=== PATIENT | male | born 1940 | race Caucasian/White ===

== ENCOUNTER 2023-02-07 08:39 | Outpatient (OUT) | payer MEDICARE, SELFPAY ==
--- NOTE | 2023-02-07 09:18 | CA_ITS ---
Patient: MYKEL IRIZARRY Exam Date: 02/07/2023 : 1940 Gender:M Ordering : DR Benson Mancini D.O. Admission #: [id number] Family : RAJENDRA NUÑEZ MD Order #: [id number] CLICK HERE TO VIEW EXAM ECHOCARDIOGRAM REPORT PROCEDURE: CA ECHO DOPPLER COMPLETE INDICATIONS: Chronic systolic heart failure, CABGx4, hypertension COMPARISON: None. DESCRIPTION: COMPLETE ECHOCARDIOGRAM Real-time transthoracic echocardiography with 2D, M-mode, spectral and color flow Doppler performed. QUALITY: Technical quality was good. LEFT VENTRICLE: Normal chamber size. Normal left ventricular wall thickness. Normal systolic function. LV EF: Normal left ventricular ejection fraction, (55%). DIASTOLIC: Not adequately assessed due to heart rhythm. ATRIAL SEPTUM: LEFT ATRIUM: Normal chamber size. RIGHT ATRIUM: Mild dilatation. RIGHT VENTRICLE: Normal chamber size. Normal systolic function. TRICUSPID VALVE: Normal mobility and thickness. No stenosis with mild regurgitation. Doppler studies reveal moderately (45-60) elevated right sided pressures. RVSP 55 mmHg MITRAL VALVE: Mildly thickened with normal mobility. No evidence of mitral valve stenosis. There is no mitral annular calcification. Mild mitral regurgitation. AORTIC VALVE: Normal trileaflet appearance. Mildly calcified aortic valve. Normal leaflet mobility. No evidence of aortic valve stenosis. Trivial aortic regurgitation. AORTIC ROOT: Normal diameter and appearance. PULMONIC VALVE: Normal thickness and mobility. No stenosis. Trivial regurgitation. PERICARDIUM: No evidence of pericardial effusion. IVC: Collapses with inspirations. PLEURA: CONCLUSION: 1. Normal ventricular systolic function. LVEF is 55%. 2. Mild mitral and tricuspid regurgitation. 3. Moderately elevated right-sided pressures. RVSP is 55 mmHg. Adult Echocardiography Procedure Report Left Ventricle LVEDD (3.7 - 5.6 cm): 4.96 cm LVESD (2.2 - 4.0 cm): 4.12 cm LVIVS thickness (0.6 - 1.2 cm): 1.11 cm LVPW thickness (0.5 - 1.0 cm): 1.00 cm LVOT Max Gradient: 2.41 mm[Hg], 1.44 mm[Hg] LVOT Area (cm2): 0.69 m/s Peak Velocity (LVOT): 0.78 m/s, 0.60 m/s LVOT Diameter 2.15 cm Left Atrium LA Volume Index (2D A2C): 33.80 ml/m2 Left Atrium Systolic Dimension: 4.07 cm Mitral Valve Mitral Valve E-Wave Peak Velocity: 1.05 m/s Right Ventricle Aorta AO Root Diam: 3.67 cm Ascending Ao Diam: 2.72 cm Aortic Valve AoV Area (Peak Terence): 1.94 cm2, 1.99 cm2, 1.87 cm2 Peak Velocity(Antegrade Flow): 1.41 m/s, 1.16 m/s Peak Gradient(Antegrade Flow): 7.94 mm[Hg], 5.38 mm[Hg] Tricuspid Valve Peak Velocity (Regurgitant Flow): 3.60 m/s Pulmonic Valve Peak Velocity: 0.96 m/s Peak Gradient: 4.76 mm[Hg], 2.73 mm[Hg] Right Atrium Right Atrium Systolic Pressure: 63.82 ml, 63.82 ml Dictated by: Eder Chambers M.D. on 02/07/2023 at 17:10 Approved by: Eder Chambers M.D. on 02/07/2023 at 17:13
== END 2023-02-07 08:40 | disposition home or self-care (01) ==
LOC: CARD 08:43
PROVIDERS: PCP Internal Medicine; Visit Provider Internal Medicine
DX: I50.22 Chronic systolic (congestive) heart failure (principal); I10 Essential (primary) hypertension; Z95.1 Presence of aortocoronary bypass graft
CPT/HCPCS: 93306

== ENCOUNTER 2023-05-05 09:36 | Outpatient (OUT) | payer MEDICARE, SELFPAY ==
[2023-05-05 10:01] LABS: Hematocrit 35.7 % (42.0-54.0); Hemoglobin 11.5 g/dL (14.0-18.0); Mean Corpuscular HGB Conc 32.2 g/dL (29.9-35.2); Mean Corpuscular Hemoglobin 30.2 pg (25.9-34.0); Mean Corpuscular Volume 93.7 fL (80.0-94.0); Mean Platelet Volume 9.4 fL (9.5-13.5); Platelet Count 199 10^3/uL (150-450); Red Blood Count 3.81 10^6/uL (4.70-6.10); Red Cell Distribution Width 12.7 % (11.0-15.0); White Blood Count 7.7 10^3/uL (4.0-11.0)
[2023-05-05 10:11] LABS: Bilirubin Urine NEGATIVE (NEGATIVE); Blood Urine LARGE (NEGATIVE); Color Urine LT. YELLOW (YELLOW); Glucose Urine UA NEGATIVE (NEGATIVE); Ketones Urine NEGATIVE (NEGATIVE); Leukocyte Esterase Urine MODERATE (NEGATIVE); Nitrite Urine NEGATIVE (NEGATIVE); Protein Urine 100 mg/dL (NEG/TRACE); Specific Gravity Urine 1.015 (1.005-1.025); Urobilinogen Urine 0.2 EU/dL (0.2-1.0); pH Urine 8.5 (5.0-9.0)
[2023-05-05 10:12] LABS: Clarity Urine CLOUDY (CLEAR)
[2023-05-05 10:39] LABS: Creatinine Urine Random 78.69 mg/dL (20.00-300.00); Microalbum Creatinine Ratio Ur 250.3 mg/g (0.0-29.9); Microalbumin Urine Random 19.7 mg/dL (<=30.0)
[2023-05-05 11:19] LABS: Albumin Level 3.3 g/dL (3.4-5.0); Anion Gap 13.1; BUN Creatinine Ratio 15.8; Carbon Dioxide 22.3 mmol/L (21.0-32.0); Chloride 100 mmol/L (98-107); Estimated GFR (African America 40 (>=60); Estimated GFR (Non-African Ame 33 (>=60); Glucose 140 mg/dL (74-106); Magnesium 1.5 mg/dL (1.8-2.4); Phosphorus 3.1 mg/dL (2.6-4.7); Potassium 4.4 mmol/L (3.5-5.1); Sodium 131 mmol/L (136-145); Uric Acid 5.5 mg/dL (3.5-7.2)
[2023-05-06 10:11] LABS: PTH, Intact 27 pg/mL (15-65)
== END 2023-05-05 09:37 | disposition home or self-care (01) ==
LOC: LAB 09:38
PROVIDERS: PCP Internal Medicine
DX: N18.32 Chronic kidney disease, stage 3b (principal)
CPT/HCPCS: 36415; 80048; 81003; 82042; 82043; 82306; 82570; 83735; 83970; 84100; 84550; 85027

== ENCOUNTER 2023-08-01 10:44 | Outpatient (OUT) | payer MEDICARE, SELFPAY ==
--- NOTE | 2023-08-01 10:49 | US_ITS ---
[place] [id number] Patient Name: MYKEL IRIZARRY MRN: [id number] date: 1940 Sex: M Assigned Patient Location: Current Patient Location: US Accession/Order Number: [id number] Exam Date: 08/01/2023 11:00 Report Date: 08/01/2023 13:28 At the request of: KARLA HERCULES Procedure: US carotid duplex BI EXAMINATION: US carotid duplex BI HISTORY: left carotid stenosis I65.22 COMPARISON: No relevant comparison available. TECHNIQUE: Duplex Doppler ultrasound analysis of carotid and vertebral arteries. . Bilateral carotid arterial duplex examination was performed using B-mode, color flow and spectral analysis. Carotid stenosis is reported according to validated velocity parameters, similar to NASCET criteria. FINDINGS: RIGHT CAROTID ARTERY Marked atherosclerotic plaque. Occlusion of the internal carotid artery Subclavian: PSV: 113.6 cm/s cm/s EDV: 11.4 cm/s cm/s CCA: Prox: PSV: 62.8 cm/s cm/s EDV: 9.5 cm/s cm/s Mid: PSV: 82.3 cm/s cm/s EDV: 0.0 cm/s cm/s Distal: PSV: 53.7 cm/s cm/s EDV: 6.5 cm/s cm/s BULB: PSV: 79.0 cm/s cm/s EDV: 7.6 cm/s cm/s ICA: Prox: PSV: 51.9 cm/s cm/s EDV: 5.7 cm/s cm/s Mid: PSV: 0.0 cm/s cm/s EDV: 0.0 cm/s cm/s Distal: PSV: 0.0 cm/s cm/s EDV: 0.0 cm/s cm/s ECA: PSV: 320.5 cm/s cm/s EDV: 0.0 cm/s cm/s VERTEBRAL: PSV: 26.7 cm/s cm/s EDV: 9.1 cm/s cm/s, antegrade ICA/CCA ratio: PSV: 1.0 EDV: LEFT CAROTID ARTERY Marked atherosclerotic plaque Subclavian: PSV: 248.2 cm/s cm/s EDV: 19.0 cm/s CCA: Prox: PSV: 88.9 cm/s cm/s EDV: 30.4 cm/s Mid: PSV: 79.0 cm/s cm/s EDV: 20.8 cm/s Distal: PSV: 100.0 cm/s cm/s EDV: 22.4 cm/s BULB: PSV: 122.6 cm/s cm/s EDV: 24.1 cm/s ICA: Prox: PSV: 116.1 cm/s cm/s EDV: 33.3 cm/s Mid: PSV: 299.8 cm/s cm/s EDV: 97.9 cm/s Distal: PSV: 159.9 cm/s cm/s EDV: 40.9 cm/s ECA: PSV: 309.7 cm/s cm/s EDV: 30.5 cm/s VERTEBRAL: PSV: 62.0 cm/s cm/s EDV: 10.2 cm/s , antegrade ICA/CCA ratio: PSV: 3.0 EDV: 4.4 US/US carotid duplex BI IMPRESSION: Occlusion of the right internal carotid artery 50-69% flow stenosis left internal carotid artery Spectral Doppler US Thresholds (Reference: Jamar EG, et al. Radiology 2000; 214:247-252) Stenosis (%) PSV (cm/sec) VICA/VCCA 0-49 <150 <2.5 50-69 150-225 2.5-4.0 >70 >225 >4.0 Electronically authenticated by: KANNAN GONSALEZ Date: 08/01/2023 13:28
== END 2023-08-01 10:45 | disposition home or self-care (01) ==
LOC: US 10:44
PROVIDERS: PCP Internal Medicine; Visit Provider Internal Medicine
DX: I65.22 Occlusion and stenosis of left carotid artery (principal)
CPT/HCPCS: 93880

== ENCOUNTER 2023-08-01 11:36 | Outpatient (OUT) | payer MEDICARE, SELFPAY ==
[2023-08-01 13:11] LABS: Estimated Average Glucose 114 mg/dL; Glycohemoglobin A1C 5.6 % (4.5-6.2)
== END 2023-08-01 11:37 | disposition home or self-care (01) ==
LOC: LAB 11:38
PROVIDERS: PCP Internal Medicine; Visit Provider Internal Medicine
DX: R73.01 Impaired fasting glucose (principal)
CPT/HCPCS: 36415; 83036

== ENCOUNTER 2023-08-14 07:30 | Emergency (ER) | payer MEDICARE, SELFPAY ==
[2023-08-14] VITALS (24 sets, daily range): BP systolic 147–215; BP diastolic 89–116; PULSE 89–103; RESP 18–42; TEMP 37.1; O2SAT 95–99; BMI 23.1
--- NOTE | 2023-08-14 | FL_ITS ---
The [address] [address] Patient Name: MYKEL IRIZARRY MRN: [id number] date: 1940 Sex: M Assigned Patient Location: ER Current Patient Location: Accession/Order Number: [id number] Exam Date: 08/14/2023 10:50 Report Date: 08/14/2023 13:04 At the request of: LANEY DOWLING Procedure: FL EXCH NEPH CATH EXAM: FL EXCH NEPH CATH HISTORY: Right nephrostomy tube replacement COMPARISON: CT exam 08/14/2023 TECHNIQUE: 40 seconds of fluoroscopy. FINDINGS: The procedure was discussed at length with the patient and his . Risks benefits and alternatives were discussed. Informed consent was obtained. The patient had moderate to severe pain before the procedure. A CT scan demonstrates moderate hydroureteronephrosis with suspected pyelonephritis. The patient was placed on the fluoroscopic table in a prone position. The patient reports being allergic to Betadine, chlorhexidine was used to clean the skin. The existing catheter appeared to be substantially removed with multiple sideholes outside of the skin entry. The catheter tip appears coiled along the upper pole of the kidney. 5 cc of Omnipaque 300 was infused into the catheter resulting in significant increased pain to the patient likely related to the pressure within the collecting system. The existing catheter appears to be in an upper pole calyx likely related to being partially pulled out. A guidewire could not be inserted into the existing catheter which appears to be complex. Subsequently the existing catheter was cut and a guidewire inserted through the catheter and manipulated into the proximal ureter. Significant pressure existed inside of the lung consistent with approximately 100 cc of bloody urine from the existing tube. This resulted in significant reduction in the patient's pain. The existing catheter was exchanged for a new [place] nephrostomy tube which was positioned inside of the mid renal pelvis. Wire and subsequently stiffener were removed and the loop formed, string secured and subsequently cut. The catheter was hooked to a drainage bag with moderately bloody urine observed. The patient had near complete resolution of his pain following placement of a new catheter and decompression of the collecting system. These findings were discussed with the patient, his and Dr. dowling in the emergency room. The patient was observed in our department for approximately 20 minutes and subsequently discharged home. The patient was asked to return to the emergency room if he had any difficulty at night and follow-up with urology. FL/FL EXCH NEPH CATH IMPRESSION: Technically successful right percutaneous nephrostomy tube exchange Electronically authenticated by: KANNAN GONSALEZ Date: 08/14/2023 13:04
--- NOTE | 2023-08-14 07:40 | ECG_ITS ---
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
--- NOTE | 2023-08-14 07:41 | CT_ITS ---
The [address] [address] Patient Name: MYKEL IRIZARRY MRN: [id number] date: 1940 Sex: M Assigned Patient Location: ER Current Patient Location: ER Accession/Order Number: [id number] Exam Date: 08/14/2023 09:10 Report Date: 08/14/2023 09:46 At the request of: LANEY DOWLING Procedure: CT abdomen pelvis wo con EXAM: CT abdomen pelvis wo con HISTORY: abdominal pain COMPARISON: 09/14/2018; 12/24/2022 ABDOMEN/PELVIS FINDINGS: Lower Chest: The heart is enlarged. Bibasilar atelectasis or scarring is present. Liver: There is a heterogeneous lesion in the right hepatic lobe measuring 11.5 x 8.6 cm which previously measured 9.7 x 8.3 cm Biliary/Gallbladder: Unremarkable. Pancreas: Unremarkable. Spleen: Unremarkable. Adrenal Glands: Unremarkable. Kidneys: Moderate atrophy of the left kidney is present. There is significant hydronephrosis of the right kidney with the indwelling nephrostomy tube appearing to be positioned within a posterior calyx. There is a ureteral calculus in the right mid ureter measuring 5.8 mm. There is hazy fat stranding surrounding the right kidney extending into the distal retroperitoneum. Gastrointestinal/Peritoneum: A left inguinal hernia is present containing a loop of the descending colon, which is nonobstructed. There is a moderate volume of stool and gas throughout the ascending and transverse colon The appendix is unremarkable. No free air or free fluid. Vascular: Mild scattered atherosclerotic calcifications are present. Lymph Nodes: No enlarged lymph nodes by CT size criteria. Pelvic Organs: Unremarkable. Bladder: Unremarkable. Bones: No acute osseous abnormality. Moderate multilevel degenerative changes are present in the visualized spine. Soft tissues: Unremarkable. CT/CT abdomen pelvis wo con IMPRESSION: 1. Significant right-sided hydronephrosis with the indwelling nephrostomy tube positioned within a posterior renal calyx. Repositioning of the nephrostomy tube is recommended. Superimposed infection is possible giving significant perinephric fat stranding. 2. Large heterogeneous liver lesion in the right hepatic lobe that has been slowly increasing in size measuring 11.5 x 8.6 cm and previously measured 9.7 x 8.[address] or MRI of the liver is recommended for further assessment. 3. Left inguinal hernia containing a loop of the colon. No evidence of obstruction. Electronically authenticated by: ERON MASCORRO Date: 08/14/2023 09:46
--- NOTE | 2023-08-14 07:50 | ED_ITS ---
HPI - General Adult General Chief complaint: Abdominal Pain Stated complaint: abdominal pain Time Seen by Provider: 08/14/23 07:40 Source: patient Mode of arrival: walk-in Limitations: no limitations History of Present Illness HPI narrative: Patient complains of generalized abdominal pain, right flank pain, nausea and vomiting. He states that he had a nephrostomy tube replaced at [facility] with Dr Moreira - interventional radiologist - on 07/25/23. He also sees Dr Blanca for his urological care but has not seen him since before the nephrostomy tube was replaced. The patient developed pain in the right flank on 08/04/23 when he also noticed that the nephrrostomy tube wasn't draining. He went to [facility] ED to be evaluated. He said that he sat there for almost four hours before he saw a physician and they never gave him pain medicine. His nephrostomy tube spontaneously started draining again and the pain resolved so he went home after being examined by the ED physician. He said that there was a crack in the tube that the taped up. He was supposed to get the tube replaced with Dr Moreira on 08/11/23 but couldn't get to the hospital because of the inclement weather. That surgery is supposed to be rescheduled - he has not been notified of the reschedule date yet. No fever or chills. No skin rash. Urine from the tube appeared normal, per patient, prior to the pain and decreased output. Related Data Home Medications Medication Instructions Recorded Confirmed apixaban 2.5 mg tablet (Eliquis) 2.5 mg PO Q12H 08/14/23 08/14/23 aspirin 81 mg tablet,delayed 81 mg PO DAILY 08/14/23 08/14/23 release (Adult Low Dose Aspirin) atorvastatin 40 mg tablet 40 mg PO BEDTIME 08/14/23 08/14/23 ferrous sulfate 325 mg (65 mg 325 mg PO DAILY 08/14/23 08/14/23 iron) tablet (FeroSul) hydralazine 25 mg tablet 25 mg PO Q12H 08/14/23 08/14/23 hydrocodone 5 mg-acetaminophen 325 1 tab PO BID PRN pain 08/14/23 08/14/23 mg tablet isosorbide mononitrate 30 mg 30 mg PO DAILY 08/14/23 08/14/23 tablet,extended release 24 hr magnesium oxide 400 mg (241.3 mg 400 mg PO DAILY 08/14/23 08/14/23 magnesium) tablet multivit with min-folic 1 tab PO DAILY 08/14/23 08/14/23 acid-lutein 400 mcg-250 mcg chewable tablet (Centrum Silver) spironolactone 25 mg tablet 25 mg PO DAILY 08/14/23 08/14/23 Previous Rx's Medication Instructions Recorded levofloxacin 500 mg tablet 500 mg PO DAILY 3 days #3 tabs 08/14/23 Allergies Allergy/AdvReac Type Severity Reaction Status Date / Time No Known Drug Allergies Allergy Verified 08/14/23 07:40 Exam Narrative Exam Narrative: Nurses notes and vital signs reviewed and patient is not hypoxic. afebrile General: Uncomfortable. Skin: Warm, dry, no pallor noted. No rash. Head: Normocephalic, atraumatic. Eye: Pupils are equal, round and EOMI. No scleral icterus. Ears, Nose, Mouth, and Throat: Oral mucosa is moist Cardiovascular: Regular Rate and Rhythm without murmur, gallop or rub. Respiratory: No accessory muscle use or respiratory distress. Lungs are clear to auscultation, no wheezing, rales or rhonchi Back: No midline thoracic or lumbar vertebral tenderness. Right CVA tenderness. Nephrostomy appears to be well placed and I do not see any surrounding erythema or bleeding at the insertion site. There is urine in the tube but very little in the drainage bag. Musculoskeletal: normal ROM, no calf or popliteal tenderness, no lower extremity edema/swelling GI: Abdomen is soft, non-distended. Normal bowel sounds. Diffuse tenderness to palpation - worse on right. No rebound, guarding, or rigidity noted. Neurological: A&O x4. No cranial nerve dysfunction observed. No truncal ataxia. Moves all extremities. Sensation intact. Psychiatric: Cooperative and interactive. Normal mood and affect. Constitutional Vital Signs, click to edit/add: Last Vital Signs Temp 98.7 F 08/14/23 07:36 Pulse 95 H 08/14/23 09:40 Resp 26 H 08/14/23 09:40 BP 197/89 H 08/14/23 09:31 Pulse Ox 98 08/14/23 09:20 O2 Del Method Room Air 08/14/23 07:36 Course Vital Signs Vital signs: Vital Signs Temperature 98.7 F 08/14/23 07:36 Pulse Rate 95 H 08/14/23 07:36 Respiratory Rate 18 08/14/23 07:36 Blood Pressure 208/96 H 08/14/23 07:36 Pulse Oximetry 99 08/14/23 07:36 Oxygen Delivery Method Room Air 08/14/23 07:36 Temperature 98.7 F 08/14/23 07:36 Pulse Rate 95 H 08/14/23 09:40 Respiratory Rate 26 H 08/14/23 09:40 Blood Pressure 197/89 H 08/14/23 09:31 Pulse Oximetry 98 08/14/23 09:20 Oxygen Delivery Method Room Air 08/14/23 07:36 Medical Decision Making MDM Narrative Medical decision making narrative: Peripheral IV established and blood drawn and sent for testing. Urine from the nephrostomy tube also ordered to be sent for testing but there is no drainage into the bag. The patient was ordered to receive IV Zofran and IV Dilaudid for pain. He was ordered to undergo CT scanning of the abdomen pelvis with both oral and IV contrast but his kidney function wont allow IVC, so it was obtained with oral contrast only. I spoke with Dr Gong who suggested flushing the tube and trying to inject 5mL contrast and getting KUB but the patient did not tolerate the flushing of the nephrostomy tube. I spoke with Dr Holland - our interventional radiologist - and he agreed to swap out the nephrostomy tube with a new one. Patient preferred to stay at [facility] rather than go to a facility in either [place] or [facility]. He got Fentanyl for continued pain. Medical Records Medical records reviewed: Yes I reviewed the patient's medical records Medical records narrative: ED chart from [facility] obtained and reviewed by me Lab Data Lab results reviewed: Yes I reviewed the patient's lab results Labs: Lab Results 08/14/23 Range/Units 07:51 WBC 18.3 H (4.0-11.0) 10^3/uL RBC 3.86 L (4.70-6.10) 10^6/uL Hgb 11.7 L (14.0-18.0) g/dL Hct 35.6 L (42.0-54.0) % MCV 92.2 (80.0-94.0) fL MCH 30.3 (25.9-34.0) pg MCHC 32.9 (29.9-35.2) g/dL RDW 13.3 (11.0-15.0) % Plt Count 190 (150-450) 10^3/uL MPV 9.6 (9.5-13.5) fL Neut % (Auto) 92.4 H (43.0-75.0) % Lymph % (Auto) 2.0 L (20.5-60.0) % [place]he % (Auto) 4.9 (1.7-12.0) % Eos % (Auto) 0.0 L (0.9-7.0) % Baso % (Auto) 0.3 (0.2-2.0) % Neut # (Auto) 16.9 H (1.4-6.5) 10^3/uL Lymph # (Auto) 0.4 L (1.2-3.8) 10^3/uL [place]he # (Auto) 0.9 H (0.3-0.8) 10^3/uL Eos # (Auto) 0.0 (0.0-0.7) 10^3/uL Baso # (Auto) 0.1 (0.0-0.1) 10^3/uL Abs Immat Gran (auto) 0.08 H (0.00-0.03) 10^3/uL Imm/Tot Granulo (auto) 0.4 (0.0-0.5) % Sodium 129 L (136-145) mmol/L Potassium 5.4 H (3.5-5.1) mmol/L Chloride 96 L (98-107) mmol/L Carbon Dioxide 20.8 L (21.0-32.0) mmol/L Anion Gap 17.6 BUN 43.0 H (7.0-18.0) mg/dL Creatinine 3.34 H (0.70-1.30) mg/dL Est GFR ( Amer) 22 L (>=60) Est GFR (Non-Af Amer) 18 L (>=60) BUN/Creatinine Ratio 12.9 Glucose 168 H (74-106) mg/dL Lactate 1.6 (0.4-2.0) mmol/L Calcium 9.3 (8.5-10.1) mg/dL Total Bilirubin 1.1 H (0.2-1.0) mg/dL AST 40 H (15-37) U/L ALT 37 (16-63) U/L Alkaline Phosphatase 161 H (46-116) U/L Troponin I High Sens 29.3 (4.0-76.1) pg/mL Total Protein 8.2 (6.4-8.2) g/dL Albumin 3.7 (3.4-5.0) g/dL Globulin 4.5 g/dL Albumin/Globulin Ratio 0.8 Lipase 38.0 (16.0-77.0) U/L ECG Data Attestation: I personally reviewed and interpreted this ECG as follows: Interpretation: EKG interpretation: Emergency Department physician interpretation. Normal sinus rhythm at 95bpm. Widened QRS. Inverted T wave V1. no ST segment elevation or depression. Discharge Plan Discharge Chief Complaint: Abdominal Pain Clinical Impression: Obstructed nephrostomy tube, Leukocytosis, Abdominal pain Patient Disposition: Home, Self-Care Time of Disposition Decision: 09:53 Prescriptions / Home Meds: New levofloxacin 500 mg tablet 500 mg PO DAILY 3 Days Qty: 3 0RF No Action Eliquis 2.5 mg tablet 2.5 mg PO Q12H atorvastatin 40 mg tablet 40 mg PO BEDTIME spironolactone 25 mg tablet 25 mg PO DAILY Centrum Silver 400-250 mcg tablet,chewable 1 tab PO DAILY aspirin [Adult Low Dose Aspirin] 81 mg tablet,delayed release (DR/EC) 81 mg PO DAILY hydralazine 25 mg tablet 25 mg PO Q12H isosorbide mononitrate 30 mg tablet extended release 24 hr 30 mg PO DAILY magnesium oxide 400 mg (241.3 mg magnesium) tablet 400 mg PO DAILY ferrous sulfate [FeroSul] 325 mg (65 mg iron) tablet 325 mg PO DAILY hydrocodone-acetaminophen 5-325 mg tablet 1 tab PO BID PRN (Reason: pain) Instructions: Nephrostomy Tube Care (ED), Leukocytosis (ED), Abdominal Pain (ED) Stand Alone Forms: Portal Instructions Referrals: Benson Mancini DO [Primary Care Provider] - 1 week
--- OUTSIDE RECORDS SUMMARY | 2023-08-14 07:52 | XMS_ITS | CCD ---
Author Name Unknown Address [address] [place] [address] Organization [facility] Care Team Providers Care Heel Slugger Name Role Phone RICHIE WALTON Attending Unavailable ISABELLE, RICHIE Admitting Unavailable BENSON MANCINI Referring Unavailable LIVE, BENSON Primary Care Unavailable TERESITA BLACKWELL Primary Care Physician [phone] DO Benson Mancini Primary Care Provider [phone] MD Steven Coronado Attending Provider DO Benson Mancini Primary Care Provider DO Declan Moreira Attending Provider Unavailable Live, DO Knowles Primary Care Provider MD Hudson Blanca Attending Provider [phone] Harish, DO Manriquez Attending Provider Unavailable Benson Mancini Unavailable LIVE, DR KNOWLES Attending Unavailable BALL, DR KNOWLES Consulting Unavailable BALL, DR KNOWLES Primary Care Unavailable BALL, DR KNOWLES Admitting Unavailable BALL, DR KNOWLES Attending Unavailable BALL, DR KNOWLES Consulting Unavailable BALL, DR KNOWLES Primary Care Unavailable BALL, DR KNOWLES Admitting Unavailable BALL, DR KNOWLES Attending Unavailable BALL, DR KNOWLES Primary Care Unavailable BALL, DR KNOWLES Admitting Unavailable MISC, DR RUTLEDGE Consulting Unavailable MISC, DR RUTLEDGE Admitting Unavailable MISC, DR RUTLEDGE Attending Unavailable BALL, DR KNOWLES Primary Care Unavailable BLANCA ., DR MCCLURE Attending Unavailable BLANCA ., DR MCCLURE Consulting Unavailable BLANCA ., DR MCCLURE Admitting Unavailable BALL, DR KNOWLES Primary Care Unavailable ZIEBER, DR BETZY Silver Consulting Unavailable BALL, DR KNOWLES Attending Unavailable BALL, DR KNOWLES Consulting Unavailable BALL, DR KNOWLES Primary Care Unavailable BALL, DR KNOWLES Admitting Unavailable BLANCA ., DR MCCLURE Admitting Unavailable BLANCA ., DR MCCLURE Attending Unavailable BLANCA ., DR MCCLURE Consulting Unavailable BALL, DR KNOWLES Primary Care Unavailable GUSTAVO BUSTILLO Consulting Unavailable BLANCA ., DR MCCLURE Attending Unavailable BLANCA ., DR MCCLURE Consulting Unavailable BLANCA ., DR MCCLURE Admitting Unavailable BALL, DR KNOWLES Primary Care Unavailable BALL, DR KNOWLES Primary Care Unavailable BLANCA ., DR MCCLURE Attending Unavailable BLANCA ., DR MCCLURE Consulting Unavailable BLANCA ., DR MCCLURE Admitting Unavailable BALL, DR KNOWLES Primary Care Unavailable AMERICA, OLEKSANDR Admitting Unavailable AMERICA, OLEKSANDR Attending Unavailable AMERICA, OLEKSANDR Consulting Unavailable WEST, DR KANNAN Stack Consulting Unavailable BALL, DR KNOWLES Primary Care Unavailable JUDE, ZOILA Admitting Unavailable JUDE, ZOILA Attending Unavailable JUDE, ZOILA Consulting Unavailable ELTAHAWY, DR ESPINOZA Admitting Unavailable ELTAHAWY, DR ESPINOZA Attending Unavailable ELTAHAWY, DR ESPINOZA Consulting Unavailable BALL, DR KNOWLES Primary Care Unavailable BALL, DR KNOWLES Primary Care Unavailable MISC, DR RUTLEDGE Admitting Unavailable MISC, DR RUTLEDGE Attending Unavailable MISC, DR RUTLEDGE Consulting Unavailable REQUEST, NONE LISTED Admitting Unavaila ble BALL, DR KNOWLES Primary Care Unavailable MISC, DR RUTLEDGE Consulting Unavailable REQUEST, DR SALTER LISTED Attending Unavaila ble DO Benson Mancini Primary Care Provider MD Hudson Blanca Attending Provider ELTAHAWY, SHARAAB Attending Unavailable JUDE, ZOILA Attending Unavailable RAJENDRA NUÑEZ Attending Unavailable EDGAR HARRELL Attending Unavailable DO Benson Mancini Primary Care Provider [phone] MD Hudson Blanca Attending Provider BLANCAHudson R Admitting Unavailable BLANCA, Hudson R Attending Unavailable BLANCA, Hudson R Attending Unavailable BLANCA, Hudson R Attending Unavailable BLANCA, Hudson R Attending Unavailable NONE, XXXX Attending Unavailable BLANCA, Hudson R Admitting Unavailable BLANCA, Hudson R Attending Unavailable MD Jose D Hercules Jr Emergency Provider Hudson Blanca Attending Unavailable Ball, Benson Primary Care Unavailable Blanca, Hudson Admitting Unavailable Ball, Benson Primary Care Unavailable Moreira, Declan Admitting Unavailable Moreira, Declan Attending Unavailable Ball, Benson Primary Care Unavailable Moreira, Declan Admitting Unavailable Moreira, Declan Attending Unavailable Blanca, Hudson Admitting Unavailable Blanca, Hudson Attending Unavailable Ball, Benson Primary Care Unavailable Ball, Benson Primary Care Unavailable Jose D Hercules Jr Admitting Unavailable Jose D Hercules Jr Attending Unavailable Allergies Allergy Classification Reported Allergen(s) Allergy Type Date of Onset Reaction(s) Facility (20 sources) traMADol; Translations: [tramadol] Drug Allergy 8 Nausea, Unknown [facility] (1 source) rOPINIRole; Translations: [ROPINIROLE] Drug Allergy 2 [facility] Repository (1 source) patient allergy list reviewed by nurse or physicia Propensity to adverse reactions 8 Comment:Done [employer] Other (1 source) No Known Medication Allergies; Translations: [No Known Medication Allergies] Propensity to adverse reactions (disorder) [facility] Repository Medications Current Medications Medication Drug Class(es) Dates Sig (Normalized) Sig (Original) acetaminophen 325 mg / HYDROcodone bitartrate 5 mg oral tablet (20 sources) Opioid Agonist Start: 08-05-2023 take 1 tablet by mouth every eight hours HYDROcodone-Aceta minophen 5-325 MG 1 tablet Orally every 8 hrs for 30 days Jul, Active Start: 05-28-2023 take 1 tablet by kristina th every eight hours HYDROcodone-Acetaminophen 5-325 MG 1 tab let Orally every 8 hrs May, Active Start: 03-28-2023 take 1 tablet by kristina th every eight hours HYDROcodone-Acetaminophen 5-325 MG 1 tab let Orally every 8 hrs for 30 days Mar, Active Start: 02-11-2023 take 1 tablet by kristina th every eight hours HYDROcodone-Acetaminophen 5-325 MG 1 tab let Orally every 8 hrs for 30 days Jan, Active Start: 01-13-2023 take 1 tablet by kristina th every eight hours as needed for pain HYDROcodone-Acetaminophen 5-325 MG 1 tab let Orally every 8 hours as needed for pain start 01/13Dec, Active Start: 12-05-2022 take 1 tablet by kristina th every eight hours as needed for pain HYDROcodone-Acetaminophen 5-325 MG 1 tab let Orally every 8 hours as needed for pain for 30 days start 12/05November, Active Start: 03-03-2020 take 1 tablet by kristina th every eight hours for pain [place] 325 mg-5 mg oral tablet 1 tab(s), Oral, q8hr for pain, 15 tab(s), Refill(s) 0, [facility] Start Date: 03/03/20 Status: Ordered Start: 02-25-2020 take 1 tablet by kristina th once [place] 325 mg-5 mg oral tablet 1 tab(s), Oral, Once, 1 tab(s), Refill(s) 0, Take 30 minutes prior to procedure, [facility] Start Date: 02/25/20 Status: Ordered Start: 12-01-2017 End: 12-30-2017 take 1 tablet by mouth every eight hours Hydrocodone-Acetaminophen Discontinued 1 TAB PO Q8H November 30, 2017 11:00pm December 30, 2017 8:09pm 120 actuat albuterol 0.1 mg/actuat / ipratropium bromide 0.02 mg/actuat inhalation spray (19 sources) Anticholinergic, beta2-Adrenergic Agonist Start: 07-30-2022 apixaban 2.5 mg oral tablet (5 sources) Factor Xa Inhibitor Start: 08-05-2023 take 1 tablet by mouth twice daily Apixaban (Eliquis) 2.5 mg tablet Active 2.5 MG PO Twice daily August 05, 2023 12:00am aspirin 81 mg chewable tablet (20 sources) Platelet Aggregation Inhibitor, Nonsteroidal Anti-inflammatory Drug Start: 05-24-2020 aspirin 81 mg Chew Tab Start Date: 05/24/20 Status: Ordered Start: 12-01-2017 Aspirin (Domingo Low Dose Aspirin) 81 mg Tablet,Delayed Release (Dr/Ec) Active 81 MG PO Daily November 30, 2017 11:00pm take 1 tablet by kristina th once daily Aspirin 81 81 MG 1 tablet Orally Once a day Active atorvastatin 10 mg oral tablet (20 sources) HMG-CoA Reductase Inhibitor Start: 12-01-2017 take 40 mg by mouth once daily Atorvastatin Active 40 MG PO Daily November 30, 2017 11:00pm Start: 12-01-2017 take 10 mg by mouth once daily Atorvastatin Active 10 MG PO Daily November 30, 2017 11:00pm Atorvastatin [place] cium 40 MG TAKE 1 TABLET DAILY IN THE EVENING Active carvedilol 12.5 mg oral tablet (20 sources) alpha-Adrenergic Erica, beta-Adrenergic Erica Start: 05-24-2020 carvedilol 12.5 mg Tab Start Date: 05/24/20 Status: Ordered Start: 12-01-2017 End: 08-05-2023 take 3.125 mg by mouth twice daily Carvedilol Discontinued 3.125 MG PO Twice daily November 30, 2017 11:00pm August 05, 2023 2:28am Centrum Silver - (4 sources) Centrum Silver - as directed Orally Active cephalexin 500 mg oral capsule (20 sources) Cephalosporin Antibacterial Start: 3 take 1 capsule by mouth every twelve hours Keflex 500 mg Cap 500 mg = 1 cap(s), Oral, q12hr, # 20 cap(s), Refills(s) 0, Pharmacy: [facility] #[id number] Start Date: 10/21/22 Status: Ordered Start: 06-19-2022 End: 06-26-2022 take 1 capsule by mouth every twelve hours Keflex 500 mg Cap 500 mg = 1 cap(s), Oral, q12hr, X 7 day(s), # 14 cap(s), Refills(s) 0, Pharmacy: [facility] #[id number] Start Date: 06/19/22 Stop Date: 06/26/22 Status: Ordered Start: 04-14-2020 take 1 capsule by mo [facility] twice daily Keflex 500 mg Cap 500 mg = 1 cap(s), Oral, BID, # 14 cap(s), Refills(s) 0, Pharmacy: [facility] [place] [address] Start Date: 04/14/20 Status: Ordered ferrous sulfate (20 sources) Start: 08-05-2023 take 65 mg by mouth once daily Ferrous Sulfate Active 65 MG PO Daily August 05, 2023 12:00am take 1 tablet by kristina every twenty-four hours Ferrous Sulfate 325 (65 Fe) MG 1 tablet Orally Once a day Active take 1 tablet by mouth once chance y Ferrous Sulfate 325 (65 Fe) MG 1 tablet Orally Once a day Active hydrALAZINE hydrochloride 25 mg oral tablet (20 sources) Arteriolar Vasodilator Start: 08-05-2023 take 25 mg by mouth twice daily Hydralazine Active 25 MG PO Twice daily August 05, 2023 12:00am take 1 tablet by mouth every six hours hydrALAZINE HCl 10 MG 1 tablet with food Orally Four times a day Active 24 hr isosorbide mononitrate 30 mg extended release oral tablet (20 sources) Nitrate Vasodilator Start: 08-05-2023 take 30 mg by mouth once daily in the morning Isosorbide Mononitrate Active 30 MG PO Every morning August 05, 2023 12:00am lisinopril 10 mg oral tablet (20 sources) Angiotensin Converting Enzyme Inhibitor Start: 05-24-2020 lisinopril 10 mg Tab Start Date: 05/24/20 Status: Ordered Start: 12-01-2017 take 5 mg by mouth at bedtime Lisinopril Active 5 MG PO Bedtime November 30, 2017 11:00pm Start: 12-01-2017 take 2.5 mg by mouth at bedtim e Lisinopril Active 2.5 MG PO Bedtime November 30, 2017 11:00pm Lisinopril 5 MG TAKE 1 TABLET DAILY Active magnesium oxide 400 mg oral tablet (20 sources) Start: 08-05-2023 take 400 mg by mouth once daily Magnesium Oxide Active 400 MG PO Daily August 05, 2023 12:00am Multivitamin-Minerals- Lutein (Centrum Silver) Tablet (1 source) Start: 08-05-2023 take 1 tablet by mouth once daily Multivitamin-Minera ls-Lutein (Centrum Silver) Tablet Active 1 TAB PO Daily August 05, 2023 12:00am 60 actuat olodaterol 0.0025 mg/actuat / tiotropium 0.0025 mg/actuat inhalation spray (9 sources) Anticholinergic, beta2-Adrenergic Agonist Stiolto Respimat 2.5-2.5 MCG/ACT 2 puffs Inhalation Once a day Active monobasic potassium phosphate 0.0408 meq/ml oral solution (20 sources) Start: 06-29-2019 take 1 tablet by mouth twice daily K-Phos Original 500 mg oral tablet 1, Oral, BID, # 180 tab(s), Refills(s) 3, Pharmacy: [facility] Start Date: 07/10/20 Status: Ordered spironolactone 25 mg oral tablet (20 sources) Aldosterone Antagonist Start: 08-05-2023 take 25 mg by mouth once daily Spironolactone Active 25 MG PO Daily August 05, 2023 12:00am sulfamethoxazole 400 mg / trimethoprim 80 mg oral tablet (10 sources) Dihydrofolate Reductase Inhibitor Antibacterial, Sulfonamide Antimicrobial Start: 11-04-2022 End: 11-14-2022 Bactrim 400 mg-80 mg Tab 80 mg, Oral, q12hr for 10 day(s), 20 tab(s), Refill(s) 0, [facility] #[id number] Start Date: 11/04/22 Stop Date: 11/14/22 Status: Ordered Start: 06-11-2021 Bactrim DS 800 mg-160 mg Tab 160 mg, Oral, q12hr, 14 tab(s), Refill(s) 0, [facility] [place] [address] Start Date: 06/11/21 Status: Ordered Start: 12-01-2017 End: 12-01-2017 Sulfamethoxazole-Trimethopri m Discontinued TABLET November 30, 2017 11:00pm December 01, 2017 7:44am Completed/Discontinued Medications Medication Drug Class(es) Dates Sig (Normalized) Sig (Original) ciprofloxacin 500 mg oral tablet (12 sources) Quinolone Antimicrobial Start: 04-04-2022 take 1 tablet by mouth once daily Cipro 500 mg Tab 500 mg = 1 tab(s), Oral, Daily, Take 1 tablet the day before the procedure and 1 tablet after the procedure, # 2 tab(s), Refills(s) 0, Pharmacy: [facility] #[id number] Start Date: 11/26/22 Status: Ordered Start: 10-30-2021 take 1 tablet by kristina once daily Cipro 500 mg Tab 500 mg = 1 tab(s), Oral, Daily, Take 1 tablet the day before the procedure and 1 tablet after the procedure, # 2 tab(s), Refills(s) 0, Pharmacy: [facility] [place] [address] Start Date: 10/30/21 Status: Ordered clopidogrel 75 mg oral tablet (17 sources) P2Y12 Platelet Inhibitor Start: 12-01-2017 End: 08-05-2023 take 1 tablet by mouth once daily Clopidogrel (Plavix) 75 mg Tablet Discontinued 75 MG PO Daily November 30, 2017 11:00pm August 05, 2023 2:28am hyoscyamine sulfate 0.125 mg sublingual tablet (6 sources) Start: 12-01-2017 End: 12-30-2017 take 0.25 mg under the tongue three times daily Hyoscyamine Sulfate Discontinued 0.25 MG SUBLINGUAL Three times daily November 30, 2017 11:00pm December 30, 2017 8:09pm hyoscyamine sulfate 0.12 mg / methenamine 118 mg / methylene blue 10 mg / phenyl salicylate 36 mg / sodium phosphate, monobasic 40.8 mg oral capsule (6 sources) Oxidation-Reduction Agent Start: 12-01-2017 End: 12-30-2017 take 1 tablet by mouth four times daily Methen-M.Blue-S.Ph ft-Zmdfe-Fcb (Uribel) 118-10-40.8-36 mg Capsule Discontinued 1 TAB PO Four times daily November 30, 2017 11:00pm December 30, 2017 8:08pm mupirocin 0.02 mg/mg topical ointment (10 sources) RNA Synthetase Inhibitor Antibacterial Start: 01-23-2023 Mupirocin 2 % 1 application Externally Twice a day for 14 days Dec, Not-Taking/PRN potassium phosphate 155 mg / sodium phosphate, dibasic 852 mg / sodium phosphate, monobasic 130 mg oral tablet (6 sources) Start: 12-01-2017 End: 12-30-2017 take 2 tablets by mouth twice daily Sod Phos Di, Beauregard-K Phos Beauregard (Phospha 250 Neutral) 250 mg Tablet Discontinued 2 TAB PO Twice daily November 30, 2017 11:00pm December 30, 2017 8:09pm Problems Active Problems Problem Classification Problem Date Documented Da te Episodic/Chronic Alcohol-related disorders (1 source) Alcohol dependence, in remission; Translations: [ALCOHOL DEPENDENCE IN REMISSION] Onset: 2 Chronic Cancer of bladder (13 sources) Malignant neoplasm, overlapping lesion of bladder; Translations: [Malignant neoplasm of overlapping sites of bladder] Onset: 2 02-04-2019 Chronic Cancer of other urinary organs (20 sources) Malignant neoplasm of urinary organ, unspecified; 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 Cancer of other urinary organs (1 source) Personal history of malignant neoplasm of ureter; Translations: [PERSONAL HX MALIG NEOPLASM URETER] Onset: 3 Episodic Cancer; other and unspecified primary (11 sources) History of bladder neoplasm 02-04-2019 Episodic Cardiac dysrhythmias (20 sources) Paroxysmal atrial fibrillation; Translations: [Paroxysmal atrial fibrillation] Onset: 3 Chronic Cardiac dysrhythmias (1 source) Bradycardia, unspecified Episodic Chronic kidney disease (9 sources) Chronic kidney disease stage 3; Translations: [Chronic kidney disease, stage 3 unspecified] Onset: 8 Chronic Chronic kidney disease (4 sources) Chronic kidney disease; Translations: [CHRONIC KIDNEY DISEASE STAGE 3B] Onset: 3 Chronic obstructive pulmonary disease and bronchiectasis (20 sources) Mucopurulent chronic bronchitis; Translations: [Mucopurulent chronic bronchitis] Chronic Complication of device; implant or graft (1 source) Obstruction of urinary stent; Translations: [Other mechanical complication of nephrostomy catheter, initial encounter] 08-05-2023 Episodic Conditions associated with dizziness or vertigo (20 sources) Dizziness; Translations: [Dizziness and giddiness] Episodic Conduction disorders (4 sources) Atrioventricular block, second degree; Translations: [Unspecified atrioventricular block] Onset: 3 Chronic Congestive heart failure; nonhypertensive (20 sources) Chronic systolic heart failure; Translations: [Chronic systolic (congestive) heart failure] Onset: 8 Chronic Coronary atherosclerosis and other heart disease (20 sources) Coronary arteriosclerosis; Translations: [Atherosclerotic heart disease of [place] coronary artery without angina pectoris] Onset: 8 02-04-2019 Chronic Coronary atherosclerosis and other heart disease (1 source) Presence of aortocoronary bypass graft; Translations: [PRESENCE AORTOCORONARY BYPASS GRAFT] Onset: 3 Episodic Deficiency and other anemia (1 source) Anemia due to chronic blood loss; Translations: [Iron deficiency anemia secondary to blood loss (chronic)] Onset: 8 Chronic Diabetes mellitus without complication (12 sources) Type 1 diabetes mellitus; Translations: [Type 2 diabetes mellitus without complications] Onset: 3 02-04-2019 Chronic Diabetes mellitus without complication (20 sources) Impaired fasting glycemia; Translations: [Impaired fasting glucose] Episodic Disorders of lipid metabolism (20 sources) Pure hypercholesterolemia; Translations: [Familial hypercholesterolemia] Onset: 8 Chronic Essential hypertension (20 sources) Hypertensive disorder; Translations: [Essential hypertension] Onset: 3 02-04-2019 Chronic Genitourinary symptoms and ill-defined conditions (20 sources) Microscopic hematuria; Translations: [Other microscopic hematuria] Onset: 2 02-04-2019 Episodic Heart valve disorders (1 source) Rheumatic disorders of both mitral and tricuspid valves; Translations: [RHEUMATIC D/O MITRAL TRICUSPID VALV] Onset: 2 Chronic Hypertension with complications and secondary hypertension (20 sources) Chronic kidney disease due to hypertension; Translations: [Hypertensive chronic kidney disease with stage 1 through stage 4 chronic kidney disease, or unspecified chronic kidney disease] Onset: 8 Chronic Immunizations and screening for infectious disease (20 sources) Infectious disease carrier; Translations: [Vaccination given] Onset: 0 04-17-2020 Episodic Comment on above: ESBL E coli in urine 02/19/2021 ESBL E coli in urine 04/13/2020 ESBL E coli in urine 09/20/2019 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 ESBL E coli in urine 06/19/2022 Nausea and vomiting (19 sources) Nausea; Translations: [Nausea] Episodic Occlusion or stenosis of precerebral arteries (20 sources) Left carotid artery occlusion; Translations: [Occlusion and stenosis of left carotid artery] Onset: 8 Chronic Osteoarthritis (1 source) Unspecified osteoarthritis, unspecified site; Translations: [UNSPECIFIED OSTEOARTHRITIS UNS SITE] Onset: 2 Chronic Other diseases of kidney and ureters (11 sources) Hydronephrosis 02-04-2019 Episodic Other diseases of kidney and ureters (5 sources) Unspecified hydronephrosis; Translations: [UNSPECIFIED HYDRONEPHROSIS] Onset: 3 Episodic Other diseases of veins and lymphatics (20 sources) Peripheral venous insufficiency; Translations: [Venous insufficiency (chronic) (peripheral)] Onset: 8 Episodic Other diseases of veins and lymphatics (1 source) Venous insufficiency (chronic) (peripheral) Episodic Other gastrointestinal disorders (1 source) Disorder of intestine; Translations: [Other specified diseases of intestine] Episodic Other hereditary and degenerative nervous system conditions (1 source) Restless legs; Translations: [Restless legs syndrome [RLS]] Onset: 8 Chronic Other injuries and conditions due to external causes (1 source) History of fall; Translations: [History of falling] Episodic Other liver diseases (1 source) Disease of liver; Translations: [Other specified disorders of liver] Onset: 8 Chronic Other liver diseases (19 sources) Liver mass; Translations: [Hepatomegaly, not elsewhere classified] Episodic Other liver diseases (1 source) Large liver; Translations: [Hepatomegaly, not elsewhere classified] Episodic Other lower respiratory disease (19 sources) Solitary nodule of lung; Translations: [Solitary pulmonary nodule] Episodic Other nutritional; endocrine; and metabolic disorders (1 source) Overweight; Translations: [Overweight] Episodic Other screening for suspected conditions (not mental disorders or infectious disease) (20 sources) Serum creatinine raised; Translations: [Other specified abnormal findings of blood chemistry] Onset: 3 Episodic Other upper respiratory infections (1 source) Acute maxillary sinusitis; Translations: [Acute maxillary sinusitis, unspecified] Episodic Peripheral and visceral atherosclerosis (20 sources) Intermittent claudication of bilateral lower limbs co-occurrent and due to atherosclerosis; Translations: [Atherosclerosis of [place] arteries of extremities with intermittent claudication, bilateral legs] Chronic Skin and subcutaneous tissue infections (1 source) Local infection of the skin and subcutaneous tissue, unspecified Episodic Spondylosis; intervertebral disc disorders; other back problems (20 sources) Lumbar spondylosis; Translations: [Spondylosis without myelopathy or radiculopathy, lumbar region] Chronic Substance-related disorders (1 source) Tobacco user; Translations: [Nicotine dependence, cigarettes, in remission] Chronic Superficial injury; contusion (1 source) Contusion of left front wall of thorax, subsequent encounter; Translations: [Contusion of left front wall of thorax, subsequent encounter] Episodic Unclassified (11 sources) Drug therapy finding 02-04-2019 Unclassified (1 source) Encounter for attention to other artificial openings of urinary tract; Translations: [Encounter for attention to other artificial openings of urinary tract] Onset: 3 Urinary tract infections (9 sources) Acute urinary tract infection; Translations: [Urinary tract infectious disease] Onset: 2 06-19-2022 Episodic Viral infection (1 source) Disease caused by 2019-nCoV; Translations: [COVID-19] Past or Other Problems Problem Classification Problem Date Documented Date Episodic/Chronic Bacterial infection; unspecified site (1 source) Bacterial infectious disease; Translations: [Bacterial infection, unspecified, in conditions classified elsewhere and of unspecified site] Onset: 05-12-2018 Episodic Cancer of bladder (9 sources) History of malignant neoplasm of bladder; Translations: [Personal history of malignant neoplasm of bladder] Onset: 08-27-2017 Episodic E Codes: Adverse effects of medical drugs (1 source) Adverse effect of other drug primarily affecting the autonomic nervous system, initial encounter; Translations: [Adverse effect of other drug primarily affecting the autonomic nervous system, initial encounter] Onset: 02-10-2018 Episodic Fluid and electrolyte disorders (4 sources) Hyperkalemia; Translations: [HYPERKALEMIA] Onset: 05-14-2022 Episodic Neoplasms of unspecified nature or uncertain behavior (1 source) 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; Translations: [Neoplasm of uncertain behavior of liver, gallbladder and bile ducts] Onset: 09-22-2017 Episodic Open wounds of extremities (1 source) Open wound of forearm with complication; Translations: [Laceration with foreign body of right forearm, initial encounter] Onset: 05-01-2018 Episodic Other aftercare (1 source) detention (current) use of aspirin; Translations: [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 CURRENT USE OF ASPIRIN] Onset: 05-01-2022 Episodic Other aftercare (1 source) 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) use of antithrombotics/anti platelets; Translations: [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 ANTITHROMBOT/ANTIPLA TLETS] Onset: 05-01-2022 Episodic Other aftercare (1 source) Other buttermilk drier operator (current) drug therapy; Translations: [[facility] CURRENT DRUG THERAPY] Onset: 05-01-2022 Episodic Other and unspecified benign neoplasm (1 source) 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; Translations: [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] Onset: 09-22-2017 Episodic Other circulatory disease (1 source) Orthostatic hypotension; Translations: [Orthostatic hypotension] Resolved: 01-14-2022 Episodic Other diseases of kidney and ureters (1 source) Hydroureter; Translations: [Hydroureter] Onset: 08-27-2017 Episodic Other diseases of veins and lymphatics (1 source) Chronic venous hypertension (idiopathic) without complications of unspecified lower extremity; Translations: [Chronic venous hypertension (idiopathic) without complications of unspecified lower extremity] Resolved: 10-09-2020 Chronic Other lower respiratory disease (4 sources) Shortness of breath; Translations: [SHORTNESS OF BREATH] Onset: 07-10-2022 Episodic Other nutritional; endocrine; and metabolic disorders (1 source) Loss of appetite; Translations: [Anorexia] Onset: 04-09-2018 Episodic Other nutritional; endocrine; and metabolic disorders (1 source) Abnormal weight loss; Translations: [Abnormal weight loss] Onset: 04-09-2018 Episodic Residual codes; unclassified (1 source) Edema; Translations: [Edema] Onset: 02-10-2018 Episodic Residual codes; unclassified (1 source) Requires influenza virus vaccination; Translations: [Need for prophylactic vaccination and inoculation, Influenza] Onset: 05-01-2018 Episodic Screening and history of mental health and substance abuse codes (13 sources) Ex-smoker; Translations: [Personal history of nicotine dependence] Onset: 08-27-2017 02-04-2019 Episodic Results Test Name Value Interpretation Reference Range Facility ECG 12 lead ECGon 08-05-2023 ECG 12 lead ECG [facility] [place] [address] Electrocardiograph Report Signed Patient: Arian Olivera MR#: [id number] : 1940 Acct:[id number] Age/Sex: 83 / M ADM Date: 08/05/23 Loc: ER Room: Type: [facility] ER Attending Dr: Ordering Provider: Jose D Hercules Jr, MD Date of Service: 08/05/2304/20/108 ECG/ECG 12 lead ECG: Urogenital Copies to: Test Reason : Blood Pressure : 211/091 mmHG Vent. Rate : 076 BPM Atrial Rate : 092 BPM P-R Int : 000 ms QRS Dur : 138 ms QT Int : 440 ms P-R-T Axes : 000 233 009 degrees QTc Int : 495 ms Atrial fibrillation Right bundle branch block Indeterminate axis Abnormal ECG No previous ECGs available Confirmed by JOSE D HERCULES MD ([id number]) on 08/05/2023 5:39:43 AM Referred By: Electronically Signed By:JOSE D HERCULES MD Transcribed By: MUS Signed By Jose D Hercules Jr, MD [id number] [facility] Glucose Glucometer (BldC) [M ass/Vol]Ordered By: PROVIDER TEMP on 08-05-2023 Glucose [Mass/Vol] 138 mg/dL [facility] Comment on above: Random Glucose Refer ence Range is dependent on time and content of last meal. Glucose of more than 200 mg/dL in a nonstressed, ambulatory subject supports the diagnosis of Diabetes Mellitus. Glucose Poct Glucometerson 0 08-05-2023 Glucose [Mass/Vol] 138 mg/dL Normal [facility] Comment on above: Result Comment: [facility] Glucose Reference Range is dependent on time and content of last meal. Glucose of more than 200 mg/dL in a nonstressed, ambulatory subject supports the diagnosis of Diabetes Mellitus. PERFORMED BY: [place] [id number] PATHOLOGIST [employer] OFFICER CAMI RAYA M.D. Performed By: #### G LULS #### Point of Care testing , RAD - MISCon 07-29-2023 RAD - MISC [id number] .00TIFF Normal [facility] IR nephrostomy tube chg UNon 07-25-2023 IR nephrostomy tube chg UN [facility] Main [place] [id number] Interventional Radiology Rpt Signed Patient: Arian Olivera MR#: [id number] : 1940 Acct:[id number] Age/Sex: 83 / M ADM Date: 07/25/23 Loc: IR Room: Type: [facility] Attending Dr: Hudson Blanca MD Copies to: MD Harish Harrison Jeffrey S DO Ordering Provider: Declan Moreira DO Date of Service: 07/25/23 IR/IR nephrostomy tube chg UN: RIGHT HYDRONEPHROSIS Fluoroscopy retrograde radiology nephrostomy tube exchange HISTORY: Nephrostomy tube exchange 2 images image was obtained. Cumulative Air Kerma in mGy: 25.7 mGy Contrast administered in the current RIGHT nephrostomy tube. Adequate position identified. The tube was cut. Guidewire was administered into the current the nephrostomy tube. The tube was removed. 12 [place] RIGHT nephrostomy tube was administered with a wire guidance. The tube is in adequate position and was locked. Contrast was administered confirming adequate position. No immediate complications. IR/IR nephrostomy tube chg UN IMPRESSION: Adequate exchange of 12 Citizen [place] RIGHT nephrostomy tube. Impression dictated by: Declan Moreira M.D.07/25/2023 11:15 AM Dictation Location: [place] [address] Transcribed By: [facility] 07/25/23 111 Dictated By: Declan Moreira DO 07/25/23 1109 Signed By: 07/25/23 1115 [facility] Physician Orderon 07-08-2023 Physician Order [id number]#1 .00TIFF [facility] Reminderson 07-08-2023 Reminders - From: Sierra Rizzo To: EU - Recalls Evangelist; Cc: Sierra Rizzo; Sent: 07/08/2023 09:01:46 EST Show up: 08/28/2023 09:01:00 EST Subject: Neph tube change Due Date/Time: 09/22/2023 09:01:00 EST Reminder/Recall Patient is due in September 2023 for 3 month RT neph tube change at [facility] Reminders - From: Sierra Rizzo To: EU - Recalllatisha Blanca; Cc: Sierra Rizzo; Sent: 01/14/2023 14:22:59 EDT Show up: 02/25/2023 14:22:00 EDT Subject: neph tube change Due Date/Time: 03/17/2023 14:22:00 EDT Reminder/Recall Patient is due in Mar 2023 for 3 month RT neph tube change. Spoke to Amita at [facility] IR, she will check sched and call me back.LG Patient sched for 04/22/23 @ 8:30am, order faxed. Patient will be due in Jun 2023 l/m on pts cell vm to see what his sched looks like to avoid those dates.LG Pt called back, stay away from - 07/15. l/m on [facility] IR sched vm.LG Patient sched for 07/25/23 at 8am, Order faxed.LG [facility] IR nephrostomy tube chg UNon 04-22-2023 IR nephrostomy tube chg UN [facility] Main [place] [address] [place] [address] Interventional Radiology Rpt Signed Patient: Arian Olivera MR#: [id number] : 1940 Acct:[id number] Age/Sex: 83 / M ADM Date: 04/22/23 Loc: IR Room: Type: [facility] Attending Dr: Declan Moreira DO Copies to: Declan Moreira DO Ordering Provider: Declan Moreira DO Date of Service: 04/22/23 IR/IR nephrostomy tube chg UN: RT NEPH TUBE EXCHANGE Interventional radiology nephrostomy tube exchange Cumulative Air Kerma in mGy: 43.4 mGy. One image obtained. Right-sided nephrostomy tube was exchanged. 12 Citizen [place] nephrostomy tube utilized. Tube was advanced with a wire guidance. Contrast was administered with adequate position noted. IR/IR nephrostomy tube chg UN IMPRESSION: Successful exchange of the RIGHT percutaneous nephrostomy tube. Impression dictated by: Declan Moreira M.D.04/22/2023 11:20 AM Dictation Location: [place] [address] Transcribed By: [facility] 04/22/23 1120 Dictated By: Declan Moreira DO 04/22/23 1117 Signed By: 04/22/23 1120 [facility] Physician Orderon 04-15-2023 Physician Order [id number] .00CD:127 [facility] Reminderson 04-11-2023 Reminders - From: Sierra Rizzo To: EU - Recalls Blanca; Cc: Sierra Rizzo; Sent: 04/11/2023 11:37:57 EDT Show up: 10/27/2023 11:37:00 EDT Subject: cysto/fish/cytol Due Date/Time: 11/17/2023 11:37:00 EDT Reminder/Recall Patient is due in November 2023 for 1 year cysto/fish/cytol (bt ck) Normal [facility] Office Visiton 03-11-2023 Follow-up visit [id number] Arian Olivera 1940 M Date Provider Department Center 03/11/2023 [facility]-RAJENDRA NUÑEZ SVETLANA [facility] No family history on file Level of Service:36409 [place] OFFICE/OUTPATIENT NEW HIGH MDM 60-74 MINUTES Reason for Visit and Comments: Follow-up [836702] - f/u echo and to discuss ICD Normal [facility] RAD - MISCon 01-23-2023 RAD - MISC [id number] .00CD:127 Normal [facility] Office Visiton 01-22-2023 Follow-up visit [id number] Arian Olivera 1940 M Date Provider Department Center 01/22/2023 [place] No family history on file Level of Service:08238 [place] OFFICE/OUTPATIENT ESTABLISHED MOD MDM 30-39 MIN Reason for Visit and Comments: Follow-up [051808] - Event results Normal [facility] IR nephrostomy tube chg UNon 01-21-2023 IR nephrostomy tube chg UN [facility] [place] [address] Interventional Radiology Rpt Signed Patient: Arian Olivera MR#: [id number] : 1940 Acct:[id number] Age/Sex: 82 / M ADM Date: 01/21/23 Loc: IR Room: Type: [facility] Attending Dr: Hudson Blanca MD Copies to: Hduson Blanca MD Ordering Provider: Hudson Blanca MD Date of Service: 01/21/23 IR/IR nephrostomy tube chg UN: HYDRONEPHROSIS IR nephrostomy tube exchange Cumulative Air Kerma in mGy: 35.2 mGy. 4 images obtained. Adequate placement of the RIGHT percutaneous nephrostomy tube confirmed with contrast administration. Guidewire was placed through the nephrostomy tube with adequate purchase. The nephrostomy tube was removed. The replacement percutaneous arthrostomy tube was administered into the intrarenal collecting system with a wire guidance. Pigtail catheter locked. Adequate positioning confirmed. Tube was secured to the skin. No immediate complications. Patient discharged in satisfactory condition. IR/IR nephrostomy tube chg UN IMPRESSION: Successful RIGHT percutaneous nephrostomy tube exchange. Impression dictated by: Declan Moreira M.D.01/21/2023 2:16 PM Dictation Location: [place] [address] Transcribed By: [facility] 01/21/23 1416 Dictated By: Declan Moreira DO 01/21/23 1404 Signed By: 01/21/23 1416 [facility] Lab Reportson 12-25-2022 Lab Reports [id number]#1 .00CD:127 Normal [facility] RAD - CT Reporton 12-25-2022 RAD - CT Report [id number] .00CD:127 Normal [facility] BUNon 12-24-2022 Urea nitrogen [Mass/Vol] 40.0 mg/dL Critically high 7.0-18.0 [facility] Comment on above: Performed By: #### H H #### [facility] [address] [place] [address] Dr. Lilly Cordova CREATININEon 12-24-2022 Creatinine [Mass/Vol] 2.33 mg/dL Critically high 0.70-1.30 [facility] Comment on above: Performed By: #### H H #### [facility] [address] [place] [address] Dr. Lilly Cordova EGFR-AF LATVIAN 33 mL/min/1.73m2 Critically low >=60 [facility] Comment on above: Performed By: #### H H #### [facility] [address] [place] [address] Dr. Lilly Cordova EGFR-NON AF LATVIAN 27 mL/min/1.73m2 Critically low >=60 [facility] Comment on above: Performed By: #### H H #### [facility] [address] [place] [address] ABD/PELVIS WO CONon 12-24 CT ABD/PELVIS WO CON EXAMINATION: CT ABD/PELVIS WO CON, 12/24/2022 9:34 AM EDT HISTORY: Hydronephrosis COMPARISON: CT abdomen and pelvis 12/05/2020. TECHNIQUE: CT scan of the abdomen and pelvis was performed without IV contrast. CT dose reduction technique was used, including Automated Exposure Control. Findings: Lack of intravenous contrast limits evaluation. Benign calcified left lower lobe granuloma. ABDOMEN: Stable scattered splenic calcifications. No significant interval change in the previously identified complex cystic mass within the sixth segment of the liver. Given the duration of stability this is likely benign. The gallbladder, spleen, and pancreas are unremarkable. Stable adrenal gland thickening. Nonspecific bilateral perinephric fat stranding. Redemonstrated is an atrophic left kidney. Also again seen is a percutaneous right sided nephrostomy catheter. No renal stones or collecting system dilatation bilaterally. Redemonstrated is an exophytic cyst off the upper pole the right kidney measuring approximately 4.2 cm. The right ureter is mildly dilated and there is nonobstructing stone along its midportion. The stone measures approximately 0.4 cm. Evaluation of the bowel is limited given the absence of oral contrast. There are colonic diverticula. Large left inguinal hernia containing fat and a portion of the sigmoid colon. No bowel obstruction. The appendix is not dilated. The aorta is normal caliber. Mild atherosclerotic disease. No enlarged abdominal lymph nodes or free abdominal fluid. Small fat-containing umbilicus hernia. Pelvis: The bladder is nondistended. No calculi. The prostate is nonenlarged. No enlarged pelvic lymph nodes or free pelvic fluid. No aggressive sclerotic or lytic osseous lesions. Mild multilevel degenerative spondylosis. IMPRESSION: 1. There is a stone within the right ureter resulting in mild right ureteral dilatation. The right sided percutaneous nephrostomy catheter remains in place news no significant right renal collecting system dilatation. 2. Large left inguinal hernia containing fat and nonobstructed sigmoid colon. 3. Other more incidental findings, as described above. Electronically authenticated by: GUSTAVO BUSTILLO Date: 2022-12-24 10:21 Normal [facility] Operative Reporton 3 Operative Report [id number] .00CD:127 Normal [facility] Reminderson 12-10-2022 Reminders - From: Sierra Rizzo To: EU - Recalls Blanca; Cc: Sierra Rizzo; Sent: 12/10/2022 08:27:41 EDT Show up: 10/27/2023 08:27:00 EDT Subject: Cysto/fish/cytol, 1 yr Due Date/Time: 11/17/2023 08:27:00 EDT Reminder/Recall Pt is due in November 2023 for 1 year cysto/fish/cytol (bt ck) Normal [facility] UroVysion Fish and Urine Cyt o ([facility])on 12-10-2022 UVFISH & UC Diagnosis Info Invalid Interpretation Code [facility] Comment on above: Result Comment: A:Ur ine,Urine:Voided Diagnosis Summary - No evidence of high grade urothelial carcinoma identified. Adequate cellularity for evaluation. Diagnosis Summary - The UroVysion FISH study detected normal copy numbers for chromosomes 3, 7, 17, and 9p21. 107 cells were analyzed in this evaluation. No evidence of aneuploidy for chromosomes 3, 7, or 17 or deletion of the 9p21 locus was found in cells present in this specimen. This test does not rule out the possibility of a low grade non-invasive papillary urothelial carcinoma. These findings should be correlated with cytology and cystoscopy results.* Microscopic Notes - Microscopic Notes - Abnormal cells 9p21 deletions: Abnormal cells aneploid events: Total cells analyzed: 107 Hematuria: Gross Description Site ID:A color Yellow fixative Alcohol Received 90 mls of slightly cloudy yellow fluid with the patient's name and, Urine on the vial. Electronically signed by : on: 12/10/2022 07:51:47 Performed By: #### 1 [id number] ####[facility] [address] [place] [address] Ambulatory Visit Summaryon 0 12-03-2022 Ambulatory Visit Summary RICKI OLIVERA :1940 Visit Date:12/03/2022 Ambulatory Visit Instructions Your Diagnosis Hx of bladder cancer Your Care Team Attending Physician - EVANGELIST CARDOSO, Hudson Silver Primary Care Physician - TERESITA BLACKWELL DO This Is Your Medications List acetaminophen-hydroco done ([place] 325 mg-5 mg oral tablet) acetaminophen-hydroco done ([place] 325 mg-5 mg oral tablet) aspirin (aspirin 81 mg Chew Tab) carvedilol (carvedilol 12.5 mg Tab) cephalexin (Keflex 500 mg Cap) ciprofloxacin (Cipro 500 mg Tab) ciprofloxacin (Cipro 500 mg Tab) clopidogrel (Plavix 75 mg Tab) lisinopril (lisinopril 10 mg Tab) potassium acid phosphate (K-Phos Original 500 mg oral tablet) potassium acid phosphate (K-Phos Original 500 mg oral tablet) Procedures Performed Mitomycin (12/10/2018), Fluoroscopy guided right nephrostomy (12/01/2017), 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 Medications What How Much When Instructions Unchanged acetaminophen-hydroco done ([place] 325 mg-5 mg oral tablet) 1 Tablets By Mouth Every 8 hours as needed for for pain Unchanged acetaminophen-hydroco done ([place] 325 mg-5 mg oral tablet) 1 Tablets By Mouth Once Take 30 minutes prior to procedure Unchanged aspirin (aspirin 81 mg Chew Tab) Unchanged carvedilol (carvedilol 12.5 mg Tab) Unchanged cephalexin (Keflex 500 mg Cap) 1 Capsules By Mouth Every 12 hours Unchanged ciprofloxacin (Cipro 500 mg Tab) 1 Tablets By Mouth Every day Take 1 tablet the day before the procedure and 1 tablet after the procedure Unchanged ciprofloxacin (Cipro 500 mg Tab) 1 Tablets By Mouth Every day Take 1 tablet the day before the procedure and 1 tablet after the procedure Unchanged clopidogrel (Plavix 75 mg Tab) Unchanged lisinopril (lisinopril 10 mg Tab) Unchanged potassium acid phosphate (K-Phos Original 500 mg oral tablet) 1 By Mouth 2 times a day Unchanged potassium acid phosphate (K-Phos Original 500 mg oral tablet) See instructions 1 tablet BID Allergies No Known Medication Allergies Problems Ongoing - Any problem that you are currently receiving treatment for. 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 Former smoker Hematuria, microscopic Hx of bladder cancer Hydronephrosis Hypertension Normal [facility] UroVysion Fish and Urine Cyt o ([facility])on 12-03-2022 [facility] Method of Extraction Voided Normal [facility] Comment on above: Performed By: #### 1 [id number] ####[facility] [address] [place] [address] [facility] Number of Jars 1 Invalid Interpretation Code [facility] Comment on above: Performed By: #### 1 [id number] ####[facility] [address] [place] [address] [facility] Specimen Urine Normal [facility] Comment on above: Performed By: #### 1 [id number] ####[facility] [address] [place] [address] [facility] Type of Service Technical Only Normal [facility] Comment on above: Performed By: #### 1 [id number] ####[facility] [address] [place] [address] Consent for Procedure/Surger yon 11-26-2022 Consent for Procedure/Surgery [id number] .00CD:127 Normal [facility] Pre-Certification Formon Pre-Certification Form [id number] #1.00CD:127 Normal [facility] RAD - MISCon 11-14-2022 RAD - MISC [id number]#1 .00CD:127 Normal [facility] XR KUB 1 VIEWon 11-12-2022 XR KUB 1 VIEW EXAMINATION: XR KUB 1 VIEW HISTORY: Microscopic hematuria COMPARISON: XR RIBS with PA chest 01/05/2021 FINDINGS: KIDNEY/URETER - RIGHT: Percutaneous nephrostomy tube within right kidney. No visible stones. KIDNEY/URETER - LEFT: No visible renal or ureteral calcifications. PELVIS: No visible ureteral stones. BOWEL: No abnormal dilation or deviation. BONES: No acute abnormality. OTHER: Negative. No abnormal gaseous collections. IMPRESSION: 1. Chronic right percutaneous nephrostomy tube. 2. No appreciable urinary tract calculi. Electronically authenticated by: BETZY JAMES Date: 2022-11-12 10:01 Normal [facility] Coding Summary.on 11-09-2022 Coding Summary. CD:[id number] W w+PGhlYWQ+EN1ODMRuG73 jxEMvmO6cJ3YVIGqZUccd WWFLAAePNyKhpaGlLT6fc XNjZXJu IC8+VB9cUWKnFhbhoYPqd 5O4gGR2F71dxi9iMJozuC Z4KSKeRrYnhhjyj8uolMs 6IDcuNmluOyBt BQXbbZ12PVL2kT03Gf54j ZZukLDuk2qqeHa6VpEcNW FgWTZ2fGagLGzjb2IpNDU jA91adOSml9O4 LTAvbPlgnCTbJjYbvTU6q T2bGOjbwoczg1wsrsucCv u9xx49uAZdc2D9aDG1J4E zxnA4IDAdrQJv LqzcaGWQeN9ydrbjz3erp vkyEfZxFBIwACw3UQd5RA JexWphYcTjGU63NLS2RXZ ryoEzQ5XpDHLk eIyiEvE4c5N5Xq6EC6MJC avgD1ORGJHSZRffxEP+PC 71nn38H8ImColcFyc1XWD kQOF4hHF5yU6o VVVtEOyxu7K3bFR3S6Pra zVlpq2ae6pmOIZiSQhvI0 2ojDBcw8V9KGYwqWA1NRB gpNdeZzHatJ69 Oyc+RLBtgHoxj4WuQfzil 8cde3muiRr5GfaiCGRqxa XjqFiqBTQ0b2DkUv8nKSR tnZL0dVA8fV9e XkJgLyE3EReuW978AmHcg CPuAnvnK86bR6JnjRL+PH BbUsh1RZCeoImbZD8qB8K hZGRpbmctbGVm rFqhFQ2uIRXmrwlgSOMkl Y8jOGGwX7s8DsYvDaO2OR isL2OtPZRyrxkrLg99sJ3 oTgNgXmQ7CLwn N9CxycX5YDSenGNeGLigI OG9A30kd8G2AOKgEKQbXR S0aAW5lR1yfYagqggspSL mdDsgdmVydGlj GStmOBizT040DGAcmPnxZ kNvZGluZyBEYXRlOiAgMD QvMTUvMjAyMzwvdGQ+PHR sECP9qNelRYPf aAWeCAmuCu3aoOiowFpbX E2xGSEhjnkfPELetH5iTN TpeXTxzSnwRR7qNEPhbvk uj173HgWbJFI5 ZVTfsUQmS3OnbS1yUjAsV UItZBNaG7NzjAVkFUxmM2 90ZWflGhT9WJAdsaBvZ1I sLWFsaWduOiB0 b2M9Fb7Al9MbdqftT8Hly PHfUiIwZptxHNe0A4OrJm wvdHI+WK21LRJdEB87NQa 5QPV7bKrrORkv FQXoQ1NybV3oJyFxPFOjJ GRkOyc+PHRhYmxlIHdpZH RoPScxMDAlJyBzdHlsZT0 wKk4eCXNlZEOn tKozyNRkAqCgk0fjWAMjK HqoGQ5moXxqE4ZzqWK8LK Onn1k6Yi99H79mM3CkqSE +MRBfaHP9lIC5 eU9yBlCeCjF6HYkpU068L cKcgYJsVmrms0uux2mblA r4XjK7YCPeicUpySjhGLB 8d2GiQq71K70d IHdpZHRoPSIxNSUiIHZhb Rhwcp2jvM5cQp1+PGNvbC D6lGX0dL4mYvVhXwG7TQm cZ933PpPmzRKu Vmwbe7uxh6dmmXp4NrCcP OWuayXtsSsnGQN4j4JmWv 37M7JwcMsbs2XsFgl3zo9 7hHYdl9K1dNC0 J4JxZUQokwudgIJsjBezL T2lOCNbjaukFZGjrP9uEO UkL7l9NkVcGiJ9ZVbbL9K cnzR2UMRgjNIc TXSmhSKOaM3tzeftz2whq dlhXcHqDSArJSx5MTu2ZB YrlKzyMyAvTYG7LwN2CJY 8yOMujF2bzPgh emeqyK2qPwf+FYB7fDFst BMNMD6pKlidcQX+PHRkIH W9yHodSZxaNINpdB4mDCL cL8i1OcCoCxL4 BTrfS2NdiiS2VSWogXRxN ZZnrUFGjK9wuvzdf6bdmt nxWzHzKVQvJZd0GPz3CHI saWduOiBsZWZ0 HeT8ZOL2bTHyyK5vvHrto jzlmX9fUtx+QmlydGggRG J3CXr6P4KxTre5HPPtgLz aBC6qrAMrDWcz Am6vdOcunHzoOY0lTKMub nkbz197QlMqr7ruPFQceO TsTNsrUOX9F22su3O9PQQ gGWQeSTF0dCL7 aA2lhVcvzzcozCPffJccb kTzjTmyNPezROjzQ594JQ OmhLweQsSvNQn3Q5XuDmi 2LXQpiRndWA7q vSFzITktGg8epXkuzLrjJ X6zUQRsjjcbu091VjGji4 isMMPufFCuSCkfNGB5M45 mt5Y0ZCObDHLz MNU9aJV3yT5vjDvvmdewy GVmdDsgdmVydGljYWwtYW rfJ516OORbxEguSlShqSf 8Y0AmOyw5NYRe cErpMI0hrKIdDVdaTj7af JynkGkoID0zCMTzmbgpe4 45LfLad3pwJSTgeIZsWDu pWSL1J64yt5J6 RDPsEQNcXAL3wGV4rD5ye GlnbjogbGVmdDsgdmVydG dfSGvlJRiaP787JZGujCu nPlBhdGllbnQg PJcoEUz3E7BwUbofbEE+P A88OWJaZB94aDNfrBRau2 zrhXg4SxTaIOIcKMP4sPt hSHwoh3TrFGYq I34lxQZuk6X9SALtdGplf JKqRxUylIX7pD9oQJohpy eii0uxjoczSlaah6rwaw2 6eP18Q58qQZnl ZHRoPSIzMCUiIHZhbGlnb n1ayT1tXw8+TUQxhPE0mE V2fM8yZHYkGpN8VYrlO74 9InRvcCIvPjxj n4put2vcdYj2YlI7FYCfz zWmxNsxBUS5m6QhGg51G4 9sIHdpZHRoPSIyMCUiIHZ azVhchu4uzS3k Ii8+PUGgtMF4yBO5pM9lN tNgLcJ4QAamY925JtChcN AkQmkcM52yT8JvjDW+PHR ePqv7KBScsXmy FT9gpXVrMYdlPi0xHHO3T rKtUrJyIOvyY1PmTYAala pgimtvgQS8TWWcFCMucT8 0Is1ppCzoCTHx aNYIgU6qvkdkx4vcyggqK pLvHRHgZAm8GOk8KNIiwG rlVfBgZFG7RwS5FJK3mLL slW9jzYaugvtr oH4rM5LjSHUwoalsEw70y B3dCnTmNoH3WNedMdz+V0 9MRkYsIEZSRUQgVzwvdGQ +HQCwPLP6ePsk BUiuRCDlqX5rDYFpX5x2J rCzSlN7UUazJ1ZwYIOwih tqWp74gI4hBnAfNjH7QLs kQ9LnuvQ8GJRy oHJgDXhgPZJ6A54vq4D1V EPhMDQaTIZ8aID5tR5jdK lnbjogbGVmdDsgdmVydGl hXSzwDTupB566 SMEvuSzbKwC5SnRwCyL5U YQ4N6BbPqq4ILDadYwbTE 9zgYRkQRffZj3iqOosaXs xIK2kUZRbound JVCooM8vAZWgmJQyfVznI L5xLMFhywuyv714KmBxJV G7ESPlrBQtY9VahZ2vMnA iGOUxKQKtT8Zg xNIsBEdzS852MBcuMeU8O ZIweuSaE4NtDJXsyNivRi Z0z4Y5Er92EJCRDIZswhw vdGQ+PHRkIHN0 uWerFZgfZAXxhM2tNTGjO 6m4MeJvUzF0LBbcN1HoCY YfulwgOw09uO3kOeOeHjN 7XTzbW0KtoqB3 QRDsxQLmMBzvXIH9Z00kk 0Y1PPGrPLRqDRW7jBD4kA 1hbGlnbjogbGVmdDsgdmV ydGljYWwtYWxp A227FAKmxDnuXw5qeYQ6O 7TkNiv1ONEpsRuoDQ3wwD TbMXrbXb1ecLghfHldBU1 wNTBpbjtwYWRk fR2qMOWjmQBeaKmqAU9eL HNnlezon076FjSbRKF3AS MepNZcT1IbvY0dEeYxNSS sOGZqS8WlpIWi DAkmM468EZooKgN0YKJos eTkE2QnJPXesIkxQvG1v1 X8Na1GLJQxKDMgiFYzAlB 1X2InSztlhSV+ UF68NEIpOT45nIJdwAOin 9bcpAp2OaPzPGXtMWB3bK wzDYtto7ApTIZkC14guBR jj2W4JXEjaDyj nLRsIwQkiZD0jM1mWIvhl olxs7gbenosGjrnf2gcni 41jH56C01mOVqjMPWzQTQ zMCUiIHZhbGln ia1dyO1aCn1+IVZdcYF7y ZA6gJ4pPzGjGgL4JTfaS6 05BjBlaKZfFfcti2znz0l rlDw5VdZfBNUa qfPgwJmmRLR8h0DwHo86B 29sIHdpZHRoPSIyMCUiIH OxrSsbee9coF0eKh2+PC9 zf8vloo85lO46 dHI+TELxIOE6mAejADigQ LAjsQ6rHPrzXfS3KYMtEk NxoF16dZNnJNszRx4ieDx deVghZR3nZKSc esjdo659TyAbs5vmTFJgf RRcFGotHHG3P80bm8G7XV ZiBRXjQIG9uBV7eV8pgLj nbjogbGVmdDsg mqEarTncJQnrBAveO221V KNonRnlMuWbjWSfG7todu RQDI9eAjfhiHU+PHRkIHN 0eWxlPSdwYWRk iP8pGCPpP7c2MpQfRgN4N QkbO2GoejE9HUWqvNSbDU NvjJEBlD9uyqtvs6afosk gIzAwMDAwMDt0 ZPf5SGSxpQqqLgRyFER9O aH9TRP2zLXpgP0xiPvvxr pxsL9yPoq+RklOOjwvdGQ +KYOuGME4wHbs OWenPBKgkY3hMCYhI9n5Z iUoVmJ0MHigW5ByldF6NJ KaeOImYKAkpXHKwF8hmws kr7eniehpVrHr WRSnHPt3XCj4PDFohFpkX mFfPQU9UqF1RMZ1jYTyzM 8jnWozkgwybO1iLqt+TVJ OOjwvdGQ+PHRk OSS9mLoaCQldEZYzkB3kW MPkB0r3OaLfItZ1GOipI9 SvhxW4VMPcyLRtVFOwxFV JbI4aomnhb1ha teudCiSnJDFiBHw1OJi2K BWfxKhvNvZuZLF9LxC6OR P0mFAwdA4ukNhxuqgzvZ2 wOyc+RSH3XSA3 BN49IP60H4IeKygyzJRov +PHRhYmxlIHdpZHRoPS ulDELsKcJavIinKE6gPj9 yZGVyLWNvbGxh cHNlOiBj (more content not included)... Normal [facility] CULTURE URINEon 11-07-2022 CULTURE URINE Isolate 1 Proteus mirabilis >100,000 cfu/mL of ORGANISM 1 Proteus mirabilis ANTIBIOTIC M.I.C RX STATUS Ampicillin >=32 R F Ampicillin/Sulbactam 8 S F Piperacillin/Tazobact am <=4 S F Cefazolin 8 S F Ceftazidime 2 S F Ceftriaxone <=1 S F Ertapenem 2 R F Imipenem 2 R F Amikacin 4 S F Gentamicin <=1 S F Tobramycin <=1 S F Ciprofloxacin <=0.25 S F Levofloxacin 1 S F Nitrofurantoin 64 R F Trimethoprim/Sulfamet hoxazole <=20 S F Normal [facility] Comment on above: Performed By: #### H H #### [facility] [address] [place] [address] Dr. Lilly Becker Urineon 11-06-2022 Bacteria identified Cx Nom (U) Microbiology PROCEDURE: Urine Culture [R1] SOURCE: U Random BODY SITE: COLLECTED DATE/TIME: 11/04/2022 15:55 EDT RECEIVED DATE/TIME: 11/04/2022 17:38 EDT START DATE/TIME: 11/04/2022 17:38 EDT FREE TEXT SOURCE: Hudson BLANCA MD, MD, Hudson Silver FINAL REPORTS Final Report [] Verified Date/Time: 11/06/2022 10:26 EDT >100,000 cfu/ml Proteus mirabilis SUSCEPTIBILITY RESULTS LEGEND: S=Susceptible, N/R=Not Reported, Blank=Data not available, or drug not advisable or tested, I=Intermediate, ESBL=Extended spectrum beta-lactamase, R=Resistant, TFG=Thymidine-depende nt strain, CHARU=Beta-lactamase positive, RACHELLE=mcg/m;(mg/L), S*=Predicted susceptible interp, R*=Predicted resistant interp Promir Antibiotic RACHELLE Dilutn RACHELLE Interp Amikacin <=16 S Ampicillin >16 R Ampicillin/ <=8/4 S Sulbactam Aztreonam >16 R Cefazolin >16 R Cefepime <=2 S Cefoxitin <=8 S Ceftazidime 4 S Ceftazidime/ <=8 S Avibactam Ceftriaxone <=1 S Ciprofloxacin <=1 S Ertapenem <=0.5 S Gentamicin <=4 S Levofloxacin <=2 S Meropenem <=1 S Nitrofurantoin >64 R Piperacillin/ <=16 S Tazobactam Tetracycline >8 R Tobramycin <=4 S Trimethoprim/ <=2/38 S Sulfa Performing Locations R1: This test was performed at: [facility], [address] [place] [address], [id number] , [place], Normal [facility] Comment on above: Performed By: #### 2 [id number] ####[facility] [address] [place] [address] PTH INTACTon 11-05-2022 PTH, Intact 46 pg/mL Normal 15-65 [facility] Comment on above: Performed By: #### P THINT #### [facility] [address] [place], [place] [address] Dr. Lilly Cordova ALBUMINon 11-04-2022 Albumin [Mass/Vol] 3.6 g/dL Normal 3.4-5.0 [facility] Comment on above: Performed By: #### B MP, PHOS, MG, ALB, URIC #### [facility] [address] [place], [place] [address] Dr. Lilly Cordova Ambulatory Visit Summaryon 0 11-04-2022 Ambulatory Visit Summary RICKI OLIVERA :1940 Visit Date:11/04/2022 Ambulatory Visit Instructions Your Diagnosis Acute UTI Tests Performed Urnls Dip Stick Auto w/o Microscopy POC [id number] Your Care Team Attending Physician - EVANGELIST CARDOSO, Hudson Silver Primary Care Physician - TERESITA BLACKWELL DO This Is Your Medications List acetaminophen-hydroco done ([place] 325 mg-5 mg oral tablet) acetaminophen-hydroco done ([place] 325 mg-5 mg oral tablet) aspirin (aspirin 81 mg Chew Tab) carvedilol (carvedilol 12.5 mg Tab) cephalexin (Keflex 500 mg Cap) ciprofloxacin (Cipro 500 mg Tab) clopidogrel (Plavix 75 mg Tab) lisinopril (lisinopril 10 mg Tab) potassium acid phosphate (K-Phos Original 500 mg oral tablet) potassium acid phosphate (K-Phos Original 500 mg oral tablet) sulfamethoxazole-trim ethoprim (Bactrim 400 mg-80 mg Tab) Procedures Performed Mitomycin (12/10/2018), Fluoroscopy guided right nephrostomy (12/01/2017), 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 What to do next Scheduled Follow-Up Appointments Friday. 2022 9:00 AM EDT Where: [facility] HEMOGRAM AND PLATELon 2022 Hematocrit (Bld) [Volume fraction] 34.7 % Critically low 42.0-54.0 [facility] Comment on above: Performed By: #### H H #### [facility] [address] [place] [address] [address] Lilly Cordova Hemoglobin (Bld) [Mass/Vol] 11.7 g/dL Critically low 14.0-18.0 [facility] Comment on above: Performed By: #### H H #### [facility] [address] [place] [address] [address] Lilly Cordova MCH (RBC) [Entitic mass] 31.0 pg Normal 25.9-34.0 [facility] Comment on above: Performed By: #### H H #### [facility] [address] [place] [address] [address] Lilly Cordova MCHC (RBC) [Mass/Vol] 33.7 g/dL Normal 29.9-35.2 [facility] Comment on above: Performed By: #### H H #### [facility] [address] [place] [address] [address] Lilly Cordova MCV (RBC) [Entitic vol] 91.8 fL Normal 80.0-94.0 [facility] Comment on above: Performed By: #### H H #### [facility] [address] [place] [address] [address] Lilly Cordova PLT 129 103/ul Critically low 150-450 [facility] Comment on above: Performed By: #### H H #### [facility] [address] [place] [address] Dr. Lilly Cordova RBC 3.78 106/ul Critically low 4.70-6.10 [facility] Comment on above: Performed By: #### H H #### [facility] [address] [place] [address] Dr. Lilly Cordova WBC 6.2 103/ul Normal 4.0-11.0 [facility] Comment on above: Performed By: #### H H #### [facility] [address] [place] [address] Dr. Lilly Cordova MAGNESIUMon 11-04-2022 Magnesium [Mass/Vol] 1.5 mg/dL Critically low 1.8-2.4 [facility] Comment on above: Performed By: #### B MP, PHOS, MG, ALB, URIC #### [facility] [address] [place] [address] Dr. Lilly Cordova MICROALB CREAT RATIO RANDOMo n 11-04-2022 mALB 13.5 mg/L Normal <=30.0 [facility] Comment on above: Performed By: #### M CRR #### [facility] [address] [place] [address] Dr. Lilly RAYMUNDO CR RATIO 238.9 mg/g Critically high 0.0-29.9 [facility] Comment on above: Performed By: #### M CRR #### [facility] [address] [place] [address] Dr. Lilly Cordova MALB CR RATIO RANGE SEE BELOW Normal [facility] Comment on above: Result Comment: NO M ICROALBUMINURIA 0-29 MG/G CLINICAL MICROALBUMINURIA 30-300 MG/G MACROALBUMINURIA >300 MG/G Performed By: #### M CRR #### [facility] [address] [place] [address] Dr. Lilly Cordova URINE CREAT 56.52 mg/dL Normal 20.00-300.00 [facility] [place] [facility] Comment on above: Performed By: #### M CRR #### [facility] [address] [place] [address] Dr. Lilly Cordova PHOSPHORUSon 11-04-2022 Phosphate [Mass/Vol] 3.0 mg/dL Normal 2.6-4.7 [facility] Comment on above: Performed By: #### B MP, PHOS, MG, ALB, URIC #### [facility] [address] [place] [address] Dr. Lilly Cordova PROF CHEM 8 (BAS METB)on Anion gap [Moles/Vol] 13.0 mmol/L Normal [facility] Comment on above: Performed By: #### B MP, PHOS, MG, ALB, URIC #### [facility] [address] [place] [address] Dr. Lilly Cordova Calcium [Mass/Vol] 9.1 mg/dL Normal 8.5-10.1 [facility] Comment on above: Performed By: #### B MP, PHOS, MG, ALB, URIC #### [facility] [address] [place] [address] Dr. Lilly Cordova Chloride [Moles/Vol] 102 mmol/L Normal 98-107 [facility] Comment on above: Performed By: #### B MP, PHOS, MG, ALB, URIC #### [facility] [address] [place] [address] Dr. Lilly Cordova CO2 [Moles/Vol] 25.0 mmol/L Normal 21.0-32.0 [facility] Comment on above: Performed By: #### B MP, PHOS, MG, ALB, URIC #### [facility] [address] [place] [address] Dr. Lilly Cordova Creatinine [Mass/Vol] 1.79 mg/dL Critically high 0.70-1.30 [facility] Comment on above: Performed By: #### B MP, PHOS, MG, ALB, URIC #### [facility] [address] [place] [address] Dr. Lilly Cordova EGFR-AF LATVIAN 45 mL/min/1.73m2 Critically low >=60 [facility] Comment on above: Performed By: #### B MP, PHOS, MG, ALB, URIC #### [facility] [address] [place] [address] Dr. Lilly Cordova EGFR-NON AF LATVIAN 37 mL/min/1.73m2 Critically low >=60 [facility] Comment on above: Performed By: #### B MP, PHOS, MG, ALB, URIC #### [facility] [address] [place] [address] Dr. Lilly Cordova Glucose [Mass/Vol] 106 mg/dL Normal 74-106 [facility] Comment on above: Performed By: #### B MP, PHOS, MG, ALB, URIC #### [facility] [address] [place] [address] Dr. Lilly Cordova Potassium [Moles/Vol] 5.0 mmol/L Normal 3.5-5.1 [facility] Comment on above: Performed By: #### B MP, PHOS, MG, ALB, URIC #### [facility] [address] [place] [address] Dr. Lilly Cordova Sodium [Moles/Vol] 135 mmol/L Critically low 136-145 [facility] Comment on above: Performed By: #### B MP, PHOS, MG, ALB, URIC #### [facility] [address] [place] [address] Dr. Lilly Cordova Urea nitrogen [Mass/Vol] 35.0 mg/dL Critically high 7.0-18.0 [facility] Comment on above: Performed By: #### B MP, PHOS, MG, ALB, URIC #### [facility] [address] [place] [address] Dr. Lilly Cordova Urea nitrogen/Creatinin e [Mass ratio] 19.6 mg/mg Normal [facility] Comment on above: Performed By: #### B MP, PHOS, MG, ALB, URIC #### [facility] [address] [place] [address] Dr. Lilly Cordova UA (CLEAN/CATCH) TORPEDO WORKER/MICRO I F IND.on 11-04-2022 Bilirubin Ql (U) Negative Normal NEGATIVE [facility] Comment on above: Performed By: #### H H #### [facility] [address] [place] [address] [address] Lilly Cordova Clarity (U) CLEAR Normal CLEAR [facility] Comment on above: Performed By: #### H H #### [facility] [address] [place] [address] [address] Lilly Cordova Color (U) LT. YELLOW Normal YELLOW [facility] Comment on above: Performed By: #### H H #### [facility] [address] [place] [address] Dr. Lilly Cordova Glucose Ql (U) Negative Normal NEGATIVE [facility] Comment on above: Performed By: #### H H #### [facility] [address] [place] [address] Dr. Lilly Cordova Hemoglobin Ql (U) MODERATE Abnormal NEGATIVE [facility] Comment on above: Performed By: #### H H #### [facility] [address] [place] [address] Dr. Lilly Cordova Ketones Ql (U) Negative Normal NEGATIVE [facility] Comment on above: Performed By: #### H H #### [facility] [address] [place] [address] Dr. Lilly Cordova LEUKOCYTES MODERATE Abnormal NEGATIVE [facility] Comment on above: Performed By: #### H H #### [facility] [address] [place] [address] Dr. Lilly Cordova Nitrite Ql (U) Positive Abnormal NEGATIVE [facility] Comment on above: Performed By: #### H H #### [facility] [address] [place] [address] Dr. Lilly Cordova pH (U) 7.5 [pH] Normal 5-9 [facility] Comment on above: Performed By: #### H H #### [facility] [address] [place] [address] Dr. Lilly Cordova SPEC GRAVITY 1.010 Normal 1.005-<=1.025 [facility] Comment on above: Performed By: #### H H #### [facility] [address] [place] [address] Dr. Lilly Cordova UA PROTEIN 30 mg/dl Abnormal NEGATIVE/ TRACE [facility] Comment on above: Performed By: #### H H #### [facility] [address] [place] [address] Dr. Lilly Cordova UR MICRO IND INDICATED Normal [facility] Comment on above: Performed By: #### H H #### [facility] [address] [place] [address] Dr. Lilly Cordova Urobilinogen Qn (U) 0.2 {Raffi'U}/dL Normal 0.2 - 1.0 [facility] Comment on above: Performed By: #### H H #### [facility] [address] [place] [address] Dr. Lilly Cordova URIC ACID SERUMon 11-04-2022 Urate [Mass/Vol] 5.2 mg/dL Normal 3.5-7.2 [facility] Comment on above: Performed By: #### B MP, PHOS, MG, ALB, URIC #### [facility] [address] [place] [address] Dr. Lilly Cordova URINE MICROSCOPIC ONLYon BACTERIA TRACE Abnormal NONE SEEN [facility] Comment on above: Performed By: #### H H #### [facility] [address] [place] [address] Dr. Lilly Cordova Bacteria identified Cx Nom (U) INDICATED Normal [facility] Comment on above: Performed By: #### H H #### [facility] [address] [place] [address] Dr. Lilly Cordova CAST NONE SEEN Normal NONE SEEN [facility] Comment on above: Performed By: #### H H #### [facility] [address] [place] [address] Dr. Lilly Cordova Crystals LM Nom (Urine sed) NONE SEEN Normal NONE SEEN [facility] Comment on above: Performed By: #### H H #### [facility] [address] [place] [address] Dr. Lilly Cordova Epithelial cells LM Ql (Urine sed) NONE SEEN Normal NONE SEEN /RARE [facility] Comment on above: Performed By: #### H H #### [facility] [address] [place] [address] [address] Lilly Cordova MUCOUS NONE SEEN Normal NONE SEEN [facility] Comment on above: Performed By: #### H H #### [facility] [address] [place] [address] [address] Lilly Cordova RBC 2-5 Abnormal 0-2 [facility] Comment on above: Performed By: #### H H #### [facility] [address] [place] [address] [address] Lilly Cordova WBC 10-20 Abnormal NONE SEEN [facility] Comment on above: Performed By: #### H H #### [facility] [address] [place] [address] Dr. Lilly Cordova VITAMIN D 25 OHon 11-04-2022 VIT D 25-OH 58.3 ng/mL Normal [facility] Comment on above: Performed By: #### H H #### [facility] [address] [place] [address] Dr. Lilly Cordova VIT D RANGES SEE BELOW Normal [facility] Comment on above: Result Comment: <20 ng/mL Vit D deficient 20 - <30 ng/mL Vit D insufficient 30 - 100 ng/mL Vit D sufficient >100 ng/mL Potential Toxicity Performed By: #### H H #### [facility] [address] [place] [address] Dr. Lilly Cordova Coding Summary.on 10-26-2022 Coding Summary. CD:[id number] W w+PGhlYWQ+IQ5UCVZzQ84 iaXQwxU3kZ6QSGOoWFmjw NPTOTTnHSkSqknUaPR2ri XNjZXJu IC8+LP2wHXXsDhpztWYin 5E1vRN7A18fku6lVLhezM P2RNDdOaVchnvnm0dezPm 6IDcuNmluOyBt QAJhlG40PJF5zH37Yx33w EWgeNFbj1rirZf1SfRxJP JqRUQ6bEzaIEljc7XjRHU oR18ssSKvw1Q1 VYPttJgrvJVoGcMrcMV7e U1sHQomauknm9mtphaxKz q4vi03sFPvi7R4lJR2W8T dpgE3VGQqfDEb BkjyhZRQwB3itjxlu6eyt pkyGyAjNFOzSBy4RFq6FX UjxUisSmHgAR43IJR3EQA xnzGvJ9EyEJQy tIvwQuT4s5V8Xt9QM2VHO wacB4SQKWIGQPlzrAE+PC 14rn55P1ViAtrxQcj8PND oBPW9bFZ1dU8y CPNuLYnzv9C9wEX2E3Ims jHghc8of3trBAJoMGgcI3 3rfZHap8H7UHRggXN9DRI xwMdcWaPpdW04 Oyc+ZIZlyLoov2OvMrhku 7tec3ltiNt7YnzoDYCpoy BbsCwnSAD6e5LfMm7tXON izJG9sPG9jL7w OnWqOaI6ICtlH095XoUgw KUnAuwwJ99bB4BqjWQ+PH RoYfw3PUImhVshUG3iT2I hZGRpbmctbGVm zXenPG7eIHZxygdfSBCcz Q6fSVAkL6x9PlHyDhC7AD seY4UhPEZbwonfCo96sO7 pClKeFyO1KHhk R8YbnoF7PTOhaJDhKLpuW LM5S80sd7U9JDRdTKRtQL D1dYZ5xP8epWwswkhajAH mdDsgdmVydGlj IQzzQSuqT986YMXmcUjvM kNvZGluZyBEYXRlOiAgMD QvMDEvMjAyMzwvdGQ+PHR aAIZ3sVclSPLf zNBiHXxvFc9mwCzufSipV N2vSUIrkmdjBACiaT4mWW HgvVKelRkpRC4qUMVsidd sr337MfBeJXY3 URAtpJBnP8LbdM0tBbTdH HUrFKFoG8OaaOTuBGwuC2 01XTlrKuT9IHUnzoIfN1R sLWFsaWduOiB0 z0J8Rl2Sf4HirsbfT9Ncb ACyXlKkQabbRQq6N4MwIr wvdHI+GV60LOImEX46CKx 9UZR7pRtbJNul MUZaR5XybH6yOiAwMSKyM GRkOyc+PHRhYmxlIHdpZH RoPScxMDAlJyBzdHlsZT0 fRq1cSFCqWAAf dCuvzYYzDxSef1aaUKXuP FyxYO5jhIbzH2ApqEG3BY Vqn7i6Oy31N21kI5ZewVP +VJJrpNX4oZC6 nP5eQfFxTkJ1EBhuQ856F oYjoNNdNbqew2kpo0hcuK z6BtJ8DSDptwAzoYetACA 3o8BmBd25B86b IHdpZHRoPSIxNSUiIHZhb Wlehd6osQ3ePk5+PGNvbC K4aGK8sL9xXxHzGaN6MEm iT341EeHxyXWv Rlhtv7lkw7uojGe7OjTpU NRjkyFwhXnvDBC0i3MeYq 88G5IekKumf7LhXjk8rq5 2iWNhp7C1kGR5 Q7CyHNIybwufhMPviZzmC D7gBPGodpnuIKIdxU3eQB LdA8j1GlJkAuE4GLrjR7J iwwX3EWDclGOw XTZszTUGyY5kpjeao6rhf evnGeDiXQDvMYo6XLv0YJ JewOakBlQqBCB9TxS2GNK 6nYZqcO9imPix lflgrQ0cUfm+CUM4dUZmj BIALF3wTnielIF+PHRkIH W2yFkvDSaiIBSxaN3gQAZ gN0l3JwRkMpH6 WSxpQ7VtsaC5IOFzrSDaK BCdcOEUrT8wubjqw1axfw mfPtAsSMUtHDn5MLw1NFO saWduOiBsZWZ0 CeC6JFX3qEWfrR5vyKgnn gjjpD7rWur+QmlydGggRG D6XVq2Q6YcSut2HKWldIh uJH4ljHLiDXew Rt4gpKykqZgaCB0wKAAex ovzk967ZyJld7ziCZQhiB KeKNuwXQJ8Q34iy9U3CKQ fGCZnIFW7kLV3 uD6aqIahtcjsgMUbjAski wQtrYbfYNzbFWylA287PV CarMrgDkRuHJj9P4VpUmt 5HIPtaDskLJ3b uGJuWFvdDs8utFgxzXtyH U4nOZMrsaymr380YaVml5 odCVVurGLjDDjaCIZ8S02 ny2H6UVRtNZRw MGF2aWC2fV1izXaccpgmi GVmdDsgdmVydGljYWwtYW fvV260FVCouFlhZaRajYp 8W4AhPap0XRCc aQnqZO0wyLTdYNfdKb5kc PbykJbbQQ4iGDXchniyt9 51TgAzb0znJDFjrQOoSWq bYGI1C97xo5Q1 EJHtMCSvRLR7lZC1aI3wf GlnbjogbGVmdDsgdmVydG svYOhjKYbmZ763MTMveZe nPlBhdGllbnQg UTxdBIs5E1TeKopesYE+P S91WXBxCU43uGUzdMJyp6 naeTu8XuCaXWGePEE9fDd bXHebl9PzMTFr Z26qoBZuu3K6LJBcyKsrr FXxBkCfcQW7sB2uMLtopn mid3rfwareJwaix4goio7 6vV18O74zKEcx ZHRoPSIzMCUiIHZhbGlnb r2juS7kRl3+MIUgnQA2fX M1pN5jKCToMyR2CIkjK18 9InRvcCIvPjxj j3xej8jvyLc1EmB5IWIzr tRemVvhMGO9p5QjSv79F9 9sIHdpZHRoPSIyMCUiIHZ wyPkjhz0ruF3w Ii8+FQIkoLJ8lCX7iJ9xB fMqFyF9UBbsK627BeCavF CeBqqvY53fR1RgoEP+PHR xZwq8CULgzNkh IX8kzMVpMZjyEh5uPQX4T vLpFjGuUJvhE4TnARSmvt xmdqvzlMH1GOEmOFZwzH0 6Ym9afAaxSXOs sJVReL8ryavso3osuvkaE yJoJNZaOUo4ETa8TDWciP wkJsXjHOX7DqN7OJN3hZN rlA6pwDzonnvr uB4kR1UsWKKlsaihWl10a A5jAjEtCuL4UMmmFgd+V0 9MRkYsIEZSRUQgVzwvdGQ +BCEeVDO3bZan GEnaCEUfrJ8eEFFmP4y1R oOyWzP0RGdpH3JgBYDgdc rpZn52vK3mRcVuHsH8SZf kI3HyvbC3FEKb eYKrRAtsEOE0T52lo6B2Y XDmRVIbJBB8bYJ4kA7oaX lnbjogbGVmdDsgdmVydGl kJYjaEFvlZ936 RYWtbOgwSkK7AqBcKfW4C CR9P8TdVjz2NXFotFxqCT 4joJQgMHflLm7joOnziLz uSV7iYDYyetad IPUwkT6zAUYjqINznAdaX F1pZNVpknbzw728QhFdHE Z8MIZzdERbJ4NtnS7pLoZ pUGZiJADqW5Ul gKGlGOxvR252XQjeLuT7Q VNmedFdW6YkFOQycRvjQl Z2f4A1Xj64SAJIOBSviwr vdGQ+PHRkIHN0 aAwkDSqwOEHcnI0hLEXnE 3v2LmRtAhX7LFjlV1OxSV KbjvbnLs51oE0pQpZgRaA 8ZAslZ8OmstJ2 OURirNBfFVniPZL1I67xt 2G8YIWqIYMbPGV8rYR4mK 1hbGlnbjogbGVmdDsgdmV ydGljYWwtYWxp L117ODYagIqvUk1zsEJ5M 9McEwl1ASEeaUnySY4ztU WiPKgcTa2jmJzheNzlNL5 wNTBpbjtwYWRk oE9pNXGgeDKitXvnBX4kV CUbyrdgg108ZlAyYAI3QA ZbhAEtU0DslT7hEsLaELG tUBVoA0HdgZIr XKhuE348TBxiTnW8YNQtu zWtH2CfWEAgrHreMcA9v1 W5Tw1JDIYrGZSidNCePrH 3V1OsVimprFH+ PJ13TFWnRE54dKFxlJBup 9cosCf1LmFhSETdBYD8wK gyMQqzp0VdKSVxG12hbRK at7N7GKDupWcm rGAvTkBxkFB7vO0eHEpvy bvsp1mhnummXlchd4dwdk 92bC27U99qCQshUATrKHG zMCUiIHZhbGln du3wjV3uEa9+SMXngME8e CF6aL8xGjQcHgE8AWeaT3 19PeXyrQLsKiogg4sgt4z evWl1ErEnIWUa fiVxwHasFVQ9d2HqHl00B 29sIHdpZHRoPSIyMCUiIH FhuAqfha9daF7hHv3+PC9 rn3tofs11uM78 dHI+LFEjDNW9zJuwCNwpD CLseF7bOHzfUyK1HHEvJz AxsL97kQKuPOooVy2kiHv jxYqwHC4vNMHi vgpvo269UyGap7xyPOXno DYtFUpqFBH8I76sl3Y5VP UlNAXwUHA8dCN8fT4zhFd nbjogbGVmdDsg ldSomQoyDRleEOmxW928E SKgsGkvWhVfdNClE7lrha DASO2ySgogrYF+PHRkIHN 0eWxlPSdwYWRk eY9cKKVoH0k2KxZbPgA7Y EawH6YflyO9SVLasIItGH BcqYRXoD6pibjjs0fkfsw gIzAwMDAwMDt0 MBq5ZWAvaKnvRlFzVBO1F sS5ABI5mCWsvQ8hbBdygb qrfB5iVks+RklOOjwvdGQ +QGNpFKD1zPdz DNlkQJHfeL4oIRUnH8q9B cSqFiI7QIguC9XtesK3US KjcVVkNCQznMBRpA0kthl kx8ynnfuiMiOz BGXqSVy8VUd4TYIlmVzqI dXqCTJ7JsF5RXO8vSNyoJ 7mxDcbwgoxyT2uCvf+TVJ OOjwvdGQ+PHRk PHZ0tQbqBYguOWJdbT7fW YZuX2i0IeHpCdL7TZzhT8 MyfpW0LVSlhGIcRXWyiTQ IrP1gmppmg6xx dqnsXaXwSBGkHWp2ZZr1L HSrnCccMvKgQEP3WkP0BR T0hWHdfC2qzSqehlguxN0 wOyc+GTY1EYH2 LD30LN25I9QpUjbwjPXpk +PHRhYmxlIHdpZHRoPS vsUNLtKxNmqAknSM8oHs2 yZGVyLWNvbGxh cHNlOiBj (more content not included)... Normal [facility] C Urineon 10-24-2022 Bacteria identified Cx Nom (U) Microbiology PROCEDURE: Urine Culture [R1] SOURCE: U Random BODY SITE: COLLECTED DATE/TIME: 10/21/2022 12:12 EDT RECEIVED DATE/TIME: 10/21/2022 17:36 EDT START DATE/TIME: 10/21/2022 17:36 EDT FREE TEXT SOURCE: EVANGELIST CARDOSO, Hudson BLANCA MD, Hudson Silver FINAL REPORTS Final Report [] Verified Date/Time: 10/24/2022 11:27 EDT >100,000 cfu/ml Proteus mirabilis 50,000 cfu/ml Proteus mirabilis #2 Organisms have different biotype. SUSCEPTIBILITY RESULTS LEGEND: S=Susceptible, N/R=Not Reported, Blank=Data not available, or drug not advisable or tested, I=Intermediate, ESBL=Extended spectrum beta-lactamase, R=Resistant, TFG=Thymidine-depende nt strain, CHARU=Beta-lactamase positive, RACHELLE=mcg/m;(mg/L), S*=Predicted susceptible interp, R*=Predicted resistant interp Promir Promir #2 Antibiotic RACHELLE Dilutn RACHELLE Interp RACHELLE Dilutn RACHELLE Interp Amikacin <=16 S <=16 S Ampicillin >16 R >16 R Ampicillin/ <=8/4 S <=8/4 S Sulbactam Aztreonam <=4 S <=4 S Cefazolin 4 S 16 I Cefepime <=2 S <=2 S Cefoxitin <=8 S <=8 S Ceftazidime <=1 S <=1 S Ceftazidime/ <=8 S <=8 S Avibactam Ceftriaxone <=1 S <=1 S Ciprofloxacin <=1 S <=1 S Ertapenem <=0.5 S <=0.5 S Gentamicin <=4 S <=4 S Levofloxacin <=2 S <=2 S Meropenem <=1 S <=1 S Nitrofurantoin >64 R >64 R Piperacillin/ <=16 S <=16 S Tazobactam Tetracycline >8 R >8 R Tobramycin <=4 S <=4 S Trimethoprim/ <=2/38 S <=2/38 S Sulfa Performing Locations R1: This test was performed at: [place] [facility], [address] [place] [address], [facility] , , [facility] Comment on above: Performed By: #### 2 [id number] ####[facility] [address] [place] [address] Ambulatory Visit Summaryon 0 10-21-2022 Ambulatory Visit Summary LEILA OLIVERADelaney Millan :1940 Visit Date:10/21/2022 Ambulatory Visit Instructions Your Care Team Attending Physician - GAETANO, XXXX Primary Care Physician - TERESITA BLACKWELL DO This Is Your Medications List acetaminophen-hydroco done ([place] 325 mg-5 mg oral tablet) acetaminophen-hydroco done ([place] 325 mg-5 mg oral tablet) aspirin (aspirin 81 mg Chew Tab) carvedilol (carvedilol 12.5 mg Tab) ciprofloxacin (Cipro 500 mg Tab) clopidogrel (Plavix 75 mg Tab) lisinopril (lisinopril 10 mg Tab) potassium acid phosphate (K-Phos Original 500 mg oral tablet) potassium acid phosphate (K-Phos Original 500 mg oral tablet) Procedures Performed Mitomycin (12/10/2018), Fluoroscopy guided right nephrostomy (12/01/2017), 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 Medications What How Much When Instructions Unchanged acetaminophen-hydroco done ([place] 325 mg-5 mg oral tablet) 1 Tablets By Mouth Every 8 hours as needed for for pain Unchanged acetaminophen-hydroco done ([place] 325 mg-5 mg oral tablet) 1 Tablets By Mouth Once Take 30 minutes prior to procedure Unchanged aspirin (aspirin 81 mg Chew Tab) Unchanged carvedilol (carvedilol 12.5 mg Tab) Unchanged ciprofloxacin (Cipro 500 mg Tab) 1 Tablets By Mouth Every day Take 1 tablet the day before the procedure and 1 tablet after the procedure Unchanged clopidogrel (Plavix 75 mg Tab) Unchanged lisinopril (lisinopril 10 mg Tab) Unchanged potassium acid phosphate (K-Phos Original 500 mg oral tablet) 1 By Mouth 2 times a day Unchanged potassium acid phosphate (K-Phos Original 500 mg oral tablet) See instructions 1 tablet BID Allergies No Known Medication Allergies Problems Ongoing - Any problem that you are currently receiving treatment for. 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 Former smoker Hematuria, microscopic Hx of bladder cancer Hydronephrosis Hypertension Normal [facility] IR nephrostomy tube chg UNon 10-14-2022 IR nephrostomy tube chg UN [facility] [place] [address] Interventional Radiology Rpt Signed Patient: Arian Olivera MR#: [id number] : 1940 Acct:[id number] Age/Sex: 82 / M ADM Date: 10/14/22 Loc: IR Room: Type: [facility] Attending Dr: Declan Moreira DO Copies to: Declan Moreira DO Ordering Provider: Declan Moreira DO Date of Service: 10/14/22 IR/IR nephrostomy tube chg UN: RIGHT NEPHROSTOMY TUBE EXCHANGE Prior nephrostomy tube exchange HISTORY:Nephrostomy tube exchange 2 image was obtained. Cumulative Air Kerma in mGy: 13.1 mGy Technique: The old nephrostomy tube on the RIGHT was removed. Attempt at the wire placement unsuccessful. The wire was administered into the skin opening. Adequate purchase into the ureter visualized. The replacement nephrostomy tube was administered over wire. Adequate positioning of the pigtail into the renal pelvis. A catheter was locked. Contrast was administered demonstrating adequate position. Nephrostomy tube was secured to the skin. Patient developed no immediate complications. IR/IR nephrostomy tube chg UN IMPRESSION: Successful replacement of RIGHT nephrostomy tube. Impression dictated by: Declan Moreira M.D.10/15/2022 1:34 PM Dictation Location: [place] [address] Transcribed By: [facility] 10/15/22 1334 Dictated By: Declan Moreira DO 10/14/22 1345 Signed By: 10/15/22 1334 [facility] Physician Orderon 10-07-2022 Physician Order [id number]:[id number] Normal [facility] Orders Onlyon 07-23-2022 Orders Only [id number] Arian Olivera 1940 M [facility] Provider Department Center 07/23/2022 PEDRITO SMITH SVETLANA Mace [facility] No family history on file [facility] HEMOGLOBINon 07-10-2022 Hemoglobin (Bld) [Mass/Vol] 11.6 g/dL Critically low 14.0-18.0 [facility] Comment on above: Performed By: #### H GB #### [facility] Laboratory [address] [place] [address] Dr. Lilly Cordova Office Visiton 07-01-2022 Follow-up visit [id number] Arian Olivera 1940 M Date Provider Department Center 07/01/2022 Reji-EMANUEL GREGG SVETLANA [facility] No family history on file Level of Service:89923 [place] OFFICE/OUTPATIENT ESTABLISHED LOW MDM 20-29 MIN Normal [facility] Orders Onlyon 07-01-2022 Orders Only [id number] Arian Olivera 1940 M Date Provider Department Center 07/01/2022 PEDRITO SMITH [facility] No family history on file Normal [facility] 36on 06-17-2022 36 Please have him hold the Imdur and let us know how he is feeling in a few days. Thank you Normal [facility] NM STRESS/REST MULTIon 06-03 NM STRESS/REST MULTI Patient: ARIAN OLIVERA Exam Date: 06/03/2022 : 1940 Gender:M Ordering : [facility] Admission #: [id number] Family : Order #: [id number] CLICK HERE TO VIEW EXAM RADIOLOGY REPORT PROCEDURE: RADIONUCLIDE IMAGING STRESS/REST MULTI COMPARISON: None. INDICATIONS: Acute on chronic systolic heart failure TECHNIQUE: Exam Description: Stress/Rest one day protocol gated SPECT Rest Imagin.5 mCi Tc-99m Cardiolite IV on 06/03/2022 Stress Imaging 30.0 mCi Tc-99m Cardiolite IV on 06/03/2022 Exercise Protocol: 0.4 mg Lexiscan given IV Heart Rate (bpm): Rest: 67 Max: 110 PMHR: 78 Blood Pressure: Rest: 168/90 Max: 198/86 Symptoms: Rest and peak stress ECG findings were normal and the exercise portion of the study was normal per attending physician Dr. Chambers . For more details please see separate cardiac stress test report. FINDINGS: QUALITY OF STUDY: Good. PERFUSION DEFECT: LOCATION: Basal inferior. Basal inferolateral. Basal anterolateral. Mid-inferior. Mid-inferolateral. Mid-anterolateral. Apical inferior. Apical lateral. SIZE: Large (5 or more segments). SEVERITY: Severe. TYPE: Persistent. WALL MOTION: Moderate hypokinesis: LV SIZE: Enlarged; EDV 151 mL. TID / TCD: None; 0.8 LVEF: Abnormal. Calculated EF 43%. SUMMARY: Myocardial perfusion imaging study has ABNORMAL findings. CONCLUSION: 1. Large fixed transmural defects inferior and lateral wall, circumflex and RCA distributions 2. No reversible ischemia 3. Moderate diffuse hypokinesis with low left ventricular ejection fraction of 43% 4. Normal exercise test Dictated by: Kannan Gonsalez MD on 06/04/2022 at 07:47 Approved by: Kannan Gonsalez MD on 06/04/2022 at 07:50 Normal [facility] Follow-Upon 05-20-2022 Follow-Up [id number] Arian Olivera 1940 M Date Provider Department Center 05/20/2022 ZOILA BALLARD CARD [facility] No family history on file Level of Service:54053 [place] OFFICE/OUTPATIENT ESTABLISHED MOD MDM 30-39 MIN Reason for Visit and Comments: Ischemic congestive cardiomyopathy [Other] Congestive Heart Failure [127] Coronary Artery Disease [187] Hypertension [374486] carotid artery stenosis [Other] Normal [facility] PROF CHEM 8 (BAS METB)on Anion gap [Moles/Vol] 11.2 mmol/L Normal [facility] Comment on above: Performed By: #### H H #### [facility] [address] [place] [address] Dr. Lilly Cordova Calcium [Mass/Vol] 8.8 mg/dL Normal 8.5-10.1 [facility] Comment on above: Performed By: #### H H #### [facility] [address] [place] [address] [address] Lilly Cordova Chloride [Moles/Vol] 103 mmol/L Normal 98-107 [facility] Comment on above: Performed By: #### H H #### [facility] [address] [place] [address] [address] Lilly Cordova CO2 [Moles/Vol] 25.2 mmol/L Normal 21.0-32.0 [facility] Comment on above: Performed By: #### H H #### [facility] [address] [place] [address] [address] Lilly Cordova Creatinine [Mass/Vol] 1.87 mg/dL Critically high 0.70-1.30 [facility] Comment on above: Performed By: #### H H #### [facility] [address] [place] [address] [address] Lilly Cordova EGFR-AF LATVIAN 42 mL/min/1.73m2 Critically low >=60 [facility] Comment on above: Performed By: #### H H #### [facility] [address] [place] [address] [address] Lilly Cordova EGFR-NON AF LATVIAN 35 mL/min/1.73m2 Critically low >=60 [facility] Comment on above: Performed By: #### H H #### [facility] [address] [place] [address] Dr. Lilly Cordova Glucose [Mass/Vol] 126 mg/dL Critically high 74-[address] [facility] Comment on above: Performed By: #### H H #### [facility] [address] [place] [address] Dr. Lilly Cordova Potassium [Moles/Vol] 4.4 mmol/L Normal 3.5-5.1 [facility] Comment on above: Performed By: #### H H #### [facility] [address] [place] [address] Dr. Lilly Cordova Sodium [Moles/Vol] 135 mmol/L Critically low 136-145 [facility] Comment on above: Performed By: #### H H #### [facility] [address] [place] [address] Dr. Lilly Cordova Urea nitrogen [Mass/Vol] 32.0 mg/dL Critically high 7.0-18.0 [facility] Comment on above: Performed By: #### H H #### [facility] [address] [place] [address] Dr. Lilly Cordova Urea nitrogen/Creatinin e [Mass ratio] 17.1 mg/mg Normal [facility] Comment on above: Performed By: #### H H #### [facility] [address] [place] [address] Dr. Lilly Cordova PTH INTACTon 05-07-2022 PTH, Intact 28 pg/mL Normal 15-65 [facility] Comment on above: Performed By: #### P THINT #### [facility] [address] [place] [address] Dr. Lilly Cordova HEMOGRAM AND PLATELon 2021 Hematocrit (Bld) [Volume fraction] 34.2 % Critically low 42.0-54.0 [facility] Comment on above: Performed By: #### H H #### [facility] [address] [place] [address] Dr. Lilly Cordova Hemoglobin (Bld) [Mass/Vol] 11.5 g/dL Critically low 14.0-18.0 [facility] Comment on above: Performed By: #### H H #### [facility] [address] [place] [address] Dr. Lilly Cordova MCH (RBC) [Entitic mass] 31.3 pg Normal 25.9-34.0 [facility] Comment on above: Performed By: #### H H #### [facility] [address] [place] [address] Dr. Lilly Cordova MCHC (RBC) [Mass/Vol] 33.6 g/dL Normal 29.9-35.2 [facility] Comment on above: Performed By: #### H H #### [facility] [address] [place] [address] Dr. Lilly Cordova MCV (RBC) [Entitic vol] 93.2 fL Normal 80.0-94.0 [facility] Comment on above: Performed By: #### H H #### [facility] [address] [place] [address] Dr. Lilly Cordova PLT 130 103/ul Critically low 150-450 [facility] Comment on above: Performed By: #### H H #### [facility] [address] [place] [address] Dr. Lilly Cordova RBC 3.67 106/ul Critically low 4.70-6.10 [facility] Comment on above: Performed By: #### H H #### [facility] [address] [place] [address] Dr. Lilly Cordova WBC 6.5 103/ul Normal 4.0-11.0 [facility] Comment on above: Performed By: #### H H #### [facility] [address] [place] [address] Dr. Lilly Cordova MAGNESIUMon 05-06-2022 Magnesium [Mass/Vol] 1.4 mg/dL Critically low 1.8-2.4 [facility] Comment on above: Performed By: #### P THINT #### [facility] [address] [place] [address] Dr. Lilly Cordova PHOSPHORUSon 05-06-2022 Phosphate [Mass/Vol] 3.0 mg/dL Normal 2.6-4.7 [facility] Comment on above: Performed By: #### P THINT #### [facility] [address] [address] [address] Lilly Cordova PROF CHEM 8 (BAS METB)on Anion gap [Moles/Vol] 10.5 mmol/L Normal [facility] Comment on above: Performed By: #### P THINT #### [facility] [address] [address] [address] Lilly Cordova Calcium [Mass/Vol] 9.1 mg/dL Normal 8.5-10.1 [facility] Comment on above: Performed By: #### P THINT #### [facility] [address] [address] [address] Lilly Cordova Chloride [Moles/Vol] 103 mmol/L Normal 98-107 [facility] Comment on above: Performed By: #### P THINT #### [facility] [address] [address] [address] Lilly Cordova CO2 [Moles/Vol] 27.9 mmol/L Normal 21.0-32.0 [facility] Comment on above: Performed By: #### P THINT #### [facility] [address] [address] [address] Lilly Cordova Creatinine [Mass/Vol] 1.77 mg/dL Critically high 0.70-1.30 [facility] Comment on above: Performed By: #### P THINT #### [facility] [address] [address] [address] Lilly Cordova EGFR-AF LATVIAN 45 mL/min/1.73m2 Critically low >=60 [facility] Comment on above: Performed By: #### P THINT #### [facility] [address] [address] [address] Lilly Cordova EGFR-NON AF LATVIAN 37 mL/min/1.73m2 Critically low >=60 [facility] Comment on above: Performed By: #### P THINT #### [facility] [address] [address] [address] Lilly Cordova Glucose [Mass/Vol] 98 mg/dL Normal 74-106 [facility] Comment on above: Performed By: #### P THINT #### [facility] [address] [address] [address] Lilly Cordova Potassium [Moles/Vol] 5.4 mmol/L Critically high 3.5-5.1 [facility] Comment on above: Performed By: #### P THINT #### [facility] [address] [address] [address] Lilly Cordova Sodium [Moles/Vol] 136 mmol/L Normal 136-145 [facility] Comment on above: Performed By: #### P THINT #### [facility] [address] [place] [address] Dr. Lilly Cordova Urea nitrogen [Mass/Vol] 30.0 mg/dL Critically high 7.0-18.0 [facility] Comment on above: Performed By: #### P THINT #### [facility] [address] [address] [address] Lilly Cordova Urea nitrogen/Creatinin e [Mass ratio] 16.9 mg/mg Normal [facility] Comment on above: Performed By: #### P THINT #### [facility] [address] [address] [address] Lilly Cordova URIC ACID SERUMon 05-06-2022 Urate [Mass/Vol] 5.2 mg/dL Normal 3.5-7.2 [facility] Comment on above: Performed By: #### P THINT #### [facility] [address] [address] [address] Lilly Cordova VITAMIN D 25 OHon 05-06-2022 VIT D 25-OH 56.4 ng/mL Normal [facility] Comment on above: Performed By: #### V ITAD #### [facility] [address] [address] [address] Lilly Cordova VIT D RANGES SEE BELOW Normal [facility] Comment on above: Result Comment: <20 ng/mL Vit D deficient 20 - <30 ng/mL Vit D insufficient 30 - 100 ng/mL Vit D sufficient >100 ng/mL Potential Toxicity Performed By: #### V ITAD #### [facility] [address] [id number] Lilly Cordova ECHOCARDIO M/2D COMPLETEon 0 04-16-2022 ECHOCARDIO M/2D COMPLETE Patient: ARIAN OLIVERA Exam Date: 04/16/2022 : 1940 Gender:M Ordering : OLEKSANDR CROSS Admission #: [id number] Family : DR BENSON MANCINI DRamon Order #: [id number] CLICK HERE TO VIEW EXAM ECHOCARDIOGRAM REPORT PROCEDURE: CARDIO PULMONARY ECHOCARDIO M/2D COMP INDICATIONS: Chronic systolic heart failure, CABG x 4, COMPARISON: None. DESCRIPTION: COMPLETE ECHOCARDIOGRAM Real-time transthoracic echocardiography with 2D, M-mode, spectral and color flow Doppler performed. QUALITY: Technical quality was good. 72 160# BP 152/74 LEFT VENTRICLE: Normal chamber size. Borderline left ventricular hypertrophy. LV EF: Global left ventricular systolic function is severely reduced; visually estimated ejection fraction is 25 to 30%. Global hypokinesis. DIASTOLIC: Grade II diastolic dysfunction. ATRIAL SEPTUM: Visually appears intact. LEFT ATRIUM: Mild dilatation. RIGHT ATRIUM: Moderately dilated. RIGHT VENTRICLE: Appears enlarged. Decreased right ventricular systolic function. TRICUSPID VALVE: Normal mobility and thickness. No stenosis with mild regurgitation. No evidence of pulmonary hypertension. RVSP 34 mmHg MITRAL VALVE: Mildly thickened with normal mobility. No evidence of mitral valve stenosis. Moderate to severe mitral regurgitation. AORTIC VALVE: Normal trileaflet appearance. Mildly calcified aortic valve. Normal leaflet mobility. No evidence of aortic valve stenosis. No aortic regurgitation. AORTIC ROOT: Normal diameter and appearance. PULMONIC VALVE: Normal thickness and mobility. No stenosis. Trivial regurgitation. PERICARDIUM: No evidence of pericardial effusion. IVC: Collapses with inspirations. CONCLUSION: Global left ventricular systolic function is severely reduced; visually estimated ejection fraction is 25 to 30%. Grade 2 diastolic dysfunction. Biatrial enlargement. The right ventricle appears enlarged with reduced systolic function. Mild tricuspid regurgitation. Moderate to severe mitral regurgitation. Adult Echocardiography Procedure Report Left Ventricle LVEDD (3.7 - 5.6 cm): 5.44 cm LVESD (2.2 - 4.0 cm): 4.50 cm LVIVS thickness (0.6 - 1.2 cm): 1.12 cm LVPW thickness (0.5 - 1.0 cm): 0.78 cm e': 0.07 m/s E - e': 9.08 LVOT Max Gradient: 1.59 mm[Hg] Peak Velocity (LVOT): 0.63 m/s Mean Velocity (LVOT): 0.38 m/s LVOT Diameter 2.34 cm Left Atrium LA Volume Index (2D A2C): 75.94 ml, 75.94 ml Left Atrium Systolic Dimension: 4.35 cm Mitral Valve MV E to A Ratio: 0.95 Mitral Valve A-Wave Peak Velocity: 0.68 m/s Mitral Valve E-Wave Peak Velocity: 0.65 m/s Right Ventricle Aorta AO Root Diam: 3.59 cm Aortic Valve AoV Area (Peak Terence): 2.85 cm2, 2.85 cm2 AoV Area (VTI): 3.03 cm2, 3.03 cm2 Peak Velocity(Antegrade Flow): 0.95 m/s Peak Gradient(Antegrade Flow): 3.62 mm[Hg] Mean Velocity(Antegrade Flow): 0.64 m/s Mean Gradient(Antegrade Flow): 1.84 mm[Hg] Velocity Time Integral: 23.63 cm Tricuspid Valve Peak Velocity (Regurgitant Flow): 2.77 m/s Pulmonic Valve Peak Velocity: 0.72 m/s, 0.73 m/s Peak Gradient: 2.08 mm[Hg], 2.14 mm[Hg] Right Atrium Right Atrium Systolic Pressure: 41.16 ml, 41.16 ml Dictated by: Emanuel Gregg M.D. on 04/18/2022 at 16:05 Approved by: Emanuel Gregg M.D. on 04/18/2022 at 16:09 Normal [facility] Vital Signs Date Time Vital Sign Value Performing Clinician Facility 08-05-2023 05:03-0500 Diastolic blood pressure 77 mm[Hg] DO [employer] Work Phone: [facility] 08-05-2023 05:03-0500 Heart rate 97 /min DO Benson Ball Work Phone: [facility] 08-05-2023 05:03-0500 Respiratory rate 18 /min DO Benson Ball Work Phone: [facility] 08-05-2023 05:03-0500 SaO2% (BldA) [Mass fraction] 99 % DO Benson Ball Work Phone: [facility] 08-05-2023 05:03-0500 Systolic blood pressure 173 mm[Hg] DO Benson Ball Work Phone: [facility] 08-05-2023 00:36-0500 Body height 182.88 cm DO Benson Ball Work Phone: [facility] 08-05-2023 00:36-0500 Body temperature 97.5 [degF] DO Benson Ball Work Phone: [facility] 08-05-2023 00:36-0500 Body weight 80.9 kg DO Benson Ball Work Phone: [facility] 07-29-2023 10:30-0500 Body height 177.8 cm Benson Ball Other [facility] [employer] Other 07-29-2023 10:30-0500 Body mass index (BMI) [Ratio] 25.57 kg/m2 Benson Ball Other [facility] [employer] Other 07-29-2023 10:30-0500 Body weight 80.83 kg Benson Ball Other [employer] Other 07-29-2023 10:30-0500 Diastolic blood pressure 73 mm[Hg] Benson Ball Other [employer] Other 07-29-2023 10:30-0500 Respiratory rate 12 /min Benson Ball Other [employer] Other 07-29-2023 10:30-0500 Systolic blood pressure 191 mm[Hg] Benson Ball Other [employer] Other 04-25-2023 11:30-0400 Body height 177.8 cm Benson Ball Other [employer] Other 04-25-2023 11:30-0400 Body mass index (BMI) [Ratio] 25.42 kg/m2 Benson Ball Other [employer] Other 04-25-2023 11:30-0400 Body weight 80.38 kg Benson Ball Other [employer] Other 04-25-2023 11:30-0400 Diastolic blood pressure 80 mm[Hg] Benson Ball Other [employer] Other 04-25-2023 11:30-0400 Respiratory rate 12 /min Benson Ball Other [employer] Other 04-25-2023 11:30-0400 Systolic blood pressure 150 mm[Hg] Benson Ball Other [employer] Other 01-23-2023 11:00-0400 Body height 177.8 cm Benson Ball Other [employer] Other 01-23-2023 11:00-0400 Body mass index (BMI) [Ratio] 25.57 kg/m2 Benson Ball Other [employer] Other 01-23-2023 11:00-0400 Body weight 80.83 kg Benson Ball Other [employer] Other 01-23-2023 11:00-0400 Diastolic blood pressure 57 mm[Hg] Benson Ball Other [employer] Other 01-23-2023 11:00-0400 Respiratory rate 12 /min Benson Ball Other [employer] Other 01-23-2023 11:00-0400 Systolic blood pressure 146 mm[Hg] Benson Ball Other [employer] Other 10-23-2022 12:00-0400 Body height 177.8 cm Benson Ball Other [employer] Other 10-23-2022 12:00-0400 Body mass index (BMI) [Ratio] 25.82 kg/m2 Benson Ball Other [employer] Other 10-23-2022 12:00-0400 Body weight 81.65 kg Benson Ball Other [employer] Other 10-23-2022 12:00-0400 Diastolic blood pressure 72 mm[Hg] Benson Ball Other [employer] Other 10-23-2022 12:00-0400 Respiratory rate 12 /min Benson Ball Other [employer] Other 10-23-2022 12:00-0400 Systolic blood pressure 158 mm[Hg] Benson Ball Other [employer] Other 07-03-2022 11:14-0500 Body weight 0 kg DO Benson Ball Work Phone: [facility] 03-26-2022 15:15-0400 Body weight 0 kg DO Benson Ball Work Phone: [facility] 12-19-2021 10:04-0400 Body weight 0 kg DO Benson Ball Work Phone: [facility] Encounters Encounter Date Encounter Type Care Provider Facility Start: 08-05-2023 End: 08-05-2023 ambulatory Benson Ball Other [facility] Other Start: 08-05-2023 Telephone encounter [facility] Start: 08-05-2023 End: 08-05-2023 Emergency department patient visit Benson Mancini Facility:[facility] Start: 08-05-2023 End: 08-05-2023 Emergency department patient visit DO Benson Mancini Work Phone: [facility] Work Phone: Start: 08-01-2023 End: 08-01-2023 ambulatory Benson Mancini Other [employer] Other Start: 08-01-2023 Telephone encounter [facility] Start: 07-29-2023 End: 07-29-2023 ambulatory Benson Mancini Other [employer] Other Start: 07-29-2023 Patient encounter procedure [facility] Start: 07-29-2023 Telephone encounter [facility] Start: 07-25-2023 End: 07-25-2023 ambulatory Hudson Blanca Facility:[facility] Start: 07-25-2023 End: 07-25-2023 Admission to same day surgery center DO Benson Mancini Work Phone: [facility]Interventional Radiology Work Phone: Start: 07-25-2023 End: 07-25-2023 ambulatory DO Benson Mancini Work Phone: [facility] Work Phone: Start: 05-28-2023 End: 05-28-2023 ambulatory Benson Mancini Other [employer] Other Start: 05-28-2023 Telephone encounter [facility] Start: 04-25-2023 End: 04-25-2023 ambulatory Benson Mancini Other [employer] Other Start: 04-25-2023 Office outpatient vi sit 25 minutes [facility] Start: 04-22-2023 End: 04-22-2023 ambulatory Benson Mancini Facility:[facility] Start: 03-28-2023 End: 03-28-2023 ambulatory Benson Mancini Other [employer] Other Start: 03-28-2023 Telephone encounter Benson FRAZIER G [facility] Start: 03-11-2023 End: 03-11-2023 ambulatory RAJENDRA NUÑEZ [facility] Start: 02-11-2023 End: 02-11-2023 ambulatory Benson Mancini Other [employer] Other Start: 02-11-2023 Telephone encounter Benson FRAZIER G [facility] Start: 01-29-2023 End: 01-29-2023 ambulatory Benson Mancini Other [employer] Other Start: 01-29-2023 Telephone encounter Benson FRAZIER G [facility] Start: 01-23-2023 End: 01-23-2023 ambulatory Benson Mancini Other [employer] Other Start: 01-23-2023 Office outpatient vi sit 25 minutes Benson Live [facility] Start: 01-22-2023 End: 01-22-2023 [facility] Start: 01-21-2023 End: 01-21-2023 ambulatory Hudson Blanca Facility:[facility] Start: 01-21-2023 End: 01-21-2023 Admission to same day surgery center DO Benson Mancini Work Phone: [facility]Interventional Radiology Work Phone: Start: 01-21-2023 End: 01-21-2023 ambulatory DO Benson Mancini Work Phone: [facility] Work Phone: Start: 01-13-2023 End: 01-13-2023 ambulatory Benson Mancini Other [employer] Other Start: 01-13-2023 Telephone encounter Benson FRAZIER [facility] Start: 12-25-2022 End: 12-25-2022 ambulatory Benson Mancini Other [employer] Other Start: 12-25-2022 Telephone encounter Benson FRAZIER G [facility] Start: 12-24-2022 Telephone encounter Benson FRAZIER G [facility] Start: 12-24-2022 End: 12-25-[address] HUDSON BLANCA . [facility] [employer] Other Start: 12-09-2022 Telephone encounter Benson FRAZIER G [facility] Start: 12-09-2022 End: 12-10-[address] HUDSON BLANCA . [facility] [employer] Other Start: 12-05-2022 End: 12-05-2022 ambulatory Benson Mancini Other [employer] Other Start: 12-05-2022 Telephone encounter Benson FRAZIER G [facility] Start: 12-03-2022 End: 12-04-2022 ambulatory Hudson BLANCA Facility:[facility] Start: 12-03-2022 End: 12-03-2022 Patient encounter procedure Hudson BLANCA [facility] Start: 11-12-2022 End: 11-13-[address] BENSON MANCINI Facility: Start: 11-06-2022 End: 11-06-2022 ambulatory Benson Live Other [facility] Other Start: 11-06-2022 Telephone encounter Benson FRAZIER [facility] Start: 11-04-2022 End: 11-04-2022 Lab Drop off Hudson BLANCA [facility] Start: 11-04-2022 End: 11-05-[address] [facility] [employer] Other Start: 11-04-2022 Telephone encounter Benson FRAZIER [facility] Start: 11-04-2022 End: 11-04-2022 Patient encounter procedure Hudson BLANCA [facility] Start: 10-31-2022 End: 11-01-[address] BENSON MANCINI Facility: Start: 10-24-2022 Telephone encounter Benson FRAZIER [facility] Start: 10-24-2022 End: 10-25-[address] BENSON MANCINI [facility] [employer] Other Start: 10-23-2022 End: 10-23-2022 ambulatory Benson Mancini Other [facility] [employer] Other Start: 10-23-2022 Office outpatient vi sit 25 minutes Benson Mancini [facility] Start: 10-21-2022 End: 10-22-2022 ambulatory Hudson BLANCA [facility] Start: 10-21-2022 End: 10-22-2022 ambulatory XXXX NONE Facility:[facility] Start: 10-21-2022 End: 10-21-2022 Lab Drop off Hudson BLANCA [facility] Start: 10-21-2022 End: 10-21-2022 Patient encounter procedure XXXX NONE [facility] Start: 10-14-2022 End: 10-14-2022 ambulatory Benson Mancini Facility:[facility] Start: 10-14-2022 End: 10-14-2022 Admission to same day surgery center DO Benson Mancini Work Phone: [facility]Interventional Radiology Work Phone: Start: 10-14-2022 End: 10-14-2022 ambulatory DO Benson Mancini Work Phone: [facility] Work Phone: Start: 07-23-2022 End: 07-23-2022 Admission to same day surgery center DO Benson Mancini Work Phone: [facility]-Interventional Radiology Work Phone: Start: 07-10-2022 End: 07-11-[address] EMANUEL GREGG Facility:[facility] Start: 07-01-2022 End: 07-01-2022 ambulatory EMANUEL GREGG [facility] Start: 06-19-2022 End: 06-19-2022 Lab Drop off CHARLENE BAILON [facility] Start: 06-19-2022 End: 06-19-2022 Patient encounter procedure Farideh Gong [facility] Start: 06-03-2022 End: 06-04-[address] KANNAN GONSALEZ Facility:[facility] Start: 05-20-2022 End: 05-20-2022 ambulatory [facility] Start: 05-14-2022 End: 05-15-[address] GAETANO FIELD Facility:[facility] Start: 05-06-2022 End: 05-07-[address] BENSON MANCINI Facility:[facility] Start: 04-29-2022 End: 04-29-[address] BENSON MANCINI Facility:[facility] Start: 04-26-2022 End: 04-26-2022 Patient encounter procedure Hudson BLANCA [facility] Start: 04-16-2022 End: 04-17-[address] BENSON MANCINI Facility:[facility] Start: 04-08-2022 End: 04-08-2022 Patient encounter procedure Hudson BLANCA [facility] Start: 04-05-2022 End: 04-05-2022 Admission to same day surgery center DO Benson Ball Work Phone: [facility]Interventional [facility]iology Start: 01-02-2022 End: 01-02-2022 Admission to same day surgery center DO Benson Ball Work Phone: [facility]Inter[facility] Start: 11-21-2021 End: 11-21-2021 Patient encounter procedure Farideh BetsyJosefina Gong [facility] Start: 11-02-2021 End: 11-02-2021 Patient encounter procedure Hudson BLANCA [facility] Start: 10-22-2021 Adult health examination Benson Mancini Other [employer] Other Start: 09-27-2020 End: 10-12-2020 Patient encounter procedure RICHIE WALTON [facility] Procedures Date Procedure Procedure Detail Performing Clinician Start: 07-25-2023 Insertion of drainag e tube into kidney DO Benson [facility] Work Phone: Start: 07-25-2023 Maintenance of tube DO Benson Ball Work Phone: Start: 03-11-2023 Follow-up visit Follow-up RAJENDRA CHAVEZ Start: 01-21-2023 Insertion of drainag e tube into kidney DO Benson Ball Work Phone: Start: 01-21-2023 Maintenance of tube DO Benson Ball Work Phone: Start: 10-14-2022 Replacement of nephr ostomy tube DO Benson Ball Work Phone: Start: 07-23-2022 Replacement of nephr ostomy tube DO Benson [facility] Work Phone: Start: 07-23-2022 Maintenance of tube DO Benson [facility] Work Phone: Start: 04-05-2022 Replacement of nephr ostomy tube DO Benson [facility] Work Phone: Start: 04-05-2022 Maintenance of tube DO Benson Mancini Work Phone: Start: 01-02-2022 Replacement of nephr ostomy tube DO Benson [facility]ancini Work Phone: Start: 01-02-2022 Maintenance of tube DO Benson Mancini Work Phone: Start: 12-10-2018 Mitomycin (product) Marta BLANCA Comment on above: 12/10/2018, 01/11/2019 Start: 12-01-2017 Fluoroscopy guided r ight nephrostomy Hudson BLANCA Start: 12-26-2016 Coronary artery bypa ss grafts x 4 Hudson BLANCA Start: 06-16-2014 Lithotripsy Hudson ESCOBEDO Comment on above: RT ESWL * 06/16/2014 , 07/11/2016 Start: 06-01-2009 Replacement of stent Pa sharmila BLANCA Comment on above: 06/01/2009* cysto, st ent change, fulguration of bladder lesions 12/07/2009* cysto, right stent change, fulguration of bladder lesions Cysto, right stent change * 04/26/10, 10/03/11, 04/02/12, 02/04/13, 09/10/12, 07/15/13, 05/26/14, 09/29/14, 03/09/15, 08/03/15, 01/18/16, 06/13/16, 10/31/16, 05/01/17, 11/13/17 Start: 03-02-2009 Cystoscopy Hudson ESCOBEDO Comment on above: 03/02/2009, 09/11/09, 03/05/10 Start: 08-25-2008 Cystoscopy and transurethral resection of bladder tumor Hudson BLANCA Comment on above: 08/25/2008, 12/16/13, 12/16/13, 5/16/19 Start: 08-25-2008 Transurethral resect ion of bladder neoplasm Hudson BLANCA Comment on above: 08/25/2008 * cysto/TU RBT, ureteroscopy, holmium laser of bladder tumors, right stent placement 12/16/13 * cysto/TURBT 12/16/13 * cysto/TURBT, ureter, right stent change 12/10/18 * cysto/TURBT/fulguration, right ureter, extraction of ureteral stone, and Mitomycin tx Depression screening Thomas Mancini Other Transrectal biopsy o f prostate using ultrasound (US) guidance Hudson BLANCA Plan of Treatment Date Care Activity Detail Author Start: 10-14-[address] [facility] Patient referral [facility] Work Phone: Immunizations Immunization Date Immunization Notes Care Provider Fa saturnino 04-25-2023 influenza, high dose seasonal, preservative-free Benson Mancini Other [employer] Other 04-24-2022 influenza virus vaccine, split virus (incl. purified surface antigen) Benson Mancini Other [employer] Other 04-25-2021 influenza virus vaccine, split virus (incl. purified surface antigen) Benson Mancini Other [employer] Other 09-28-2020 COVID-19 Vaccine Moderna - Documentation Purposes Only Benson Mancini Other [employer] Other 05-17-2020 influenza virus vaccine, split virus (incl. purified surface antigen) Benson Mancini Other [employer] Other 05-19-2019 influenza virus vaccine, split virus (incl. purified surface antigen) Benson Mancini Other [employer] Other 05-01-2018 influenza virus vaccine, split virus (incl. purified surface antigen) Benson Mancini Other [employer] Other 05-01-2018 tetanus toxoid, redu maria de jesus diphtheria toxoid, and acellular pertussis vaccine, adsorbed Benson Mancini Other [employer] Other 05-14-2017 influenza virus vaccine, split virus (incl. purified surface antigen) Benson Mancini Other [employer] Other 05-01-2016 pneumococcal conjuga te vaccine, 13 valent Benson Mancini Other [employer] Other 02-11-2007 pneumococcal polysaccharide vaccine, 23 valent Benson Mancini Other [employer] Other Payers Date Payer Category Payer Self-pay [id number] 1959 Private Health Insurance [facility] [id number] 1942 Unknown [id number] 2.16.840.1.424412.3.579.2.647 1942 Unknown [id number] 2.16.840.1.765932.3.579.2.593 1942 Unknown [id number] 2.16.840.1.554572.3.579.2.593 1942 Unknown [id number] 2.16.840.1.311731.3.579.2.593 1942 Unknown [id number] 2.16.840.1.080598.3.579.2.593 1942 Unknown [id number] 2.16.840.1.145324.3.579.2.593 1942 Unknown [id number] 2.16.840.1.302316.3.579.2.593 1942 Unknown [id number] 2.16.840.1.291388.3.579.2.593 1942 Unknown [id number] 2.16.840.1.785146.3.579.2.593 1942 Unknown [id number] 2.16.840.1.241176.3.579.2.593 1942 Unknown [id number] 2.16.840.1.788498.3.579.2.593 1942 Unknown [id number] 2.16.840.1.672390.3.579.2.593 1942 Unknown [id number] 2.16.840.1.810172.3.579.2.593 1942 Unknown [id number] 2.16.840.1.680943.3.579.2.593 1942 Unknown [id number] 2.16.840.1.093184.3.579.2.593 1942 Unknown [id number] 2.16.840.1.857063.3.579.2.727 1942 Unknown [id number] 2.16.840.1.966515.3.579.2.727 1942 Unknown [id number] 2.16.840.1.178822.3.579.2.727 1942 Unknown [id number] 2.16.840.1.418218.3.579.2.727 1942 Unknown [id number] 2.16.840.1.341017.3.579.2.727 1942 Unknown [id number] 2.16.840.1.894314.3.579.2.727 Medicare Medicare Outpatient [id number] Private Health Insurance [id number] [id number] Private Health Insurance [employer] [id number] Unknown [id number] 2.16.840.1.156211.3.579.2.531 Unknown [id number] 2.16.840.1.840235.3.579.2.531 Unknown [id number] 2.16.840.1.562435.3.579.2.531 Unknown [id number] 2.16.840.1.069535.3.579.2.531 Unknown [id number] 2.16.840.1.894344.3.579.2.531 Social History Date Type Detail Facility Tobacco smoking status [facility] Sex Assigned At Male [facility] Start: 12-30-2017 End: 04-29-2023 Tobacco smoking status NJIS Never smoked tobacco (finding) [facility] Start: 1940 Sex Assigned At Male [facility] Tobacco smoking status No Smokin g Status Entered [facility] Tobacco smoking status No Smokin g Status [facility]tered [facility] Start: 08-05-2023 Tobacco smoking stat us NJIS Ex-smoker (finding) [facility] Clinical Notes 11-02-2021 to 08-05-2023 Note Date & Type Note Facility 08-05-2023 Evaluation note Encounter Date Diagnosis Assessment Notes Jul, Lumbar spondylosis (ICD-10 - M47.816) [employer] Other 01-02-2024 Evaluation note* Encounter Date Diagnosis Assessment Notes Treatment Notes Treatment Clinical Notes Jul, Medicare annual wellness visit, subsequent (ICD-10 - Z00.00) Personalized health advice was given to the beneficiary including a written plan for screenings discussed and provided. Advanced care planning reviewed and/or information given as requested. Additional counseling was provided here today in regards to, [ ]. The above visit was performed by [ ], under direct supervision of [ ]. Document reviewed and amended by provider signed below. Jul, Ischemic cardiomyopathy (ICD-10 - I25.5) This patient is stable without activity related CP, dyspnea or lightheadedness. They are instructed to continue exercise and AHA diet plan. Continue secondary prevention measures. Jul, Chronic HFrEF (heart failure with reduced ejection fraction) (ICD-10 - I50.22) Instructed on low salt diet, exercise and daily weights. Instructed to notify office for any unexpected weight gain > 3lbs and/or increased dyspnea, difficulty breathing during sleep, worsening lower extremity swelling, chest pain or lightheadedness. Reviewed GDMT w/ beta blockers, HANNA/ARB/ARNI, MRA and SGLT-2 Jul, Stage 4 chronic kidney disease (ICD-10 - N18.4) The patient is instructed on adequate control of hypertension and diabetes, if appropriate. They are also educated on the associated risks of NSAIDs and PPI use with kidney disease. They were instructed on adequate fluid balance and to avoid dehydration. Jul, Paroxysmal atrial fibrillation (ICD-10 - I48.0) This patient is in NSR or rate controlled. This patient is anticoagulated to prevent thromboembolic events. They are maintaining regular scheduled appts with their descriptive catalog librarian. No bleeding complications Jul, Essential hypertension (ICD-10 - I10) This patient is instructed to consume a healthy, low-fat, low-salt diet. They are also encouraged to continue exercise to achieve/maintain a normal BMI. Patient is instructed on home BP measurements: - rest for 5 minutes w/o talking- positioned w/ feet on floor and arm supported- average best 2/3 readings w/ goal < 135/85 _update office w/ results Jul, Mucopurulent chronic bronchitis (ICD-10 - J41.1) Symptoms tolerable. He does not use inhalers, trialed in past w/o benefit Jul, Left carotid stenosis (ICD-10 - I65.22) Continue secondary prevention measures. - ASA and statin therapy Reviewed stroke symptoms and instructed to seek ER evaluation w/ suspicious symptoms Jul, Hyperlipidemia type II (ICD-10 - E78.01) Instructed on diet and exercise with continued statin therapy.Discussed the beneficial effects of lowering cholesterol in reducing the risk for cerebrovascular and cardiovascular disease. Jul, IFG (impaired fasting glucose) (ICD-10 - R73.01) Healthy diet, exercise A1C yearly Jul, Lumbar spondylosis (ICD-10 - M47.816) The patient is instructed to avoid bending, twisting or lifting. They are to use intermittent heat and ice as needed. They may schedule a massage or gentle manipulation. They may safely use Tylenol as needed. Hydrocodone as needed for severe pain [employer] Other 11-01-2023 Evaluation note* Encounter Date Diagnosis Assessment Notes Treatment Notes Treatment Clinical Notes May, Lumbar spondylosis (ICD-10 - M47.816) [employer] Other 09-29-2023 Evaluation note* Encounter Date Diagnosis Assessment Notes Treatment Notes Treatment Clinical Notes Mar, Ischemic cardiomyopathy (ICD-10 - I25.5) This patient is stable without activity related CP, dyspnea or lightheadedness. They are instructed to continue exercise and AHA diet plan. Continue secondary prevention measures. Mar, Chronic HFrEF (heart failure with reduced ejection fraction) (ICD-10 - I50.22) Instructed on low salt diet, exercise and daily weights. Instructed to notify office for any unexpected weight gain > 3lbs and/or increased dyspnea, difficulty breathing during sleep, worsening lower extremity swelling, chest pain or lightheadedness. Reviewed GDMT w/ beta blockers, HANNA/ARB/ARNI, MRA and SGLT-2 Mar, Stage 4 chronic kidney disease (ICD-10 - N18.4) Mar, Paroxysmal atrial fibrillation (ICD-10 - I48.0) This patient is in NSR or rate controlled. This patient is anticoagulated to prevent thromboembolic events. They are maintaining regular scheduled appts with their descriptive catalog librarian. Mar, Essential hypertension (ICD-10 - I10) This patient is instructed to consume a healthy, low-fat, low-salt diet. They are also encouraged to continue exercise to achieve/maintain a normal BMI. Patient is instructed on home BP measurements: - rest for 5 minutes w/o talking- positioned w/ feet on floor and arm supported- average best 2/3 readings w/ goal < 135/85 Did not adjust medications due to Cardiology and Nephrology both adjusting meds. Mar, Mucopurulent chronic bronchitis (ICD-10 - J41.1) Symptoms stable and tolerable w/o activity limitations. Not using any inhalers, no benefit noted. Able to perform all ADL w/o symptoms. Mar, Hyperlipidemia type II (ICD-10 - E78.01) Mar, IFG (impaired fasting glucose) (ICD-10 - R73.01) Healthy diet, keep active, avoid sweets. Doesn't need to check home BS. A1C w/ wellness examination. Mar, Lumbar spondylosis (ICD-10 - M47.816) The patient is instructed to avoid bending, twisting or lifting. They are to use intermittent heat and ice as needed. They may schedule a massage or gentle manipulation. They may safely use Tylenol as needed. [employer] Other 09-01-2023 Evaluation note* Encounter Date Diagnosis Assessment Notes Treatment Notes Treatment Clinical Notes Mar, Lumbar spondylosis (ICD-10 - M47.816) [employer] Other 08-15-2023 NoteUT Electrophysiology Consult Note Reason for visit: CMP HPI: Arian Olivera is a 82 y.o. year old with a past history of CAD s/p CABG, HFrEF, carotid stenosis, bladder CA with hx urinary stents and chronic right nephrostomy tube (follows with Dr. Blanca) chronic kidney disease who has come for ICD discussion. He is active with NYHA class II. His recent ECHO in January 2023 reveals normal EF. He was placed on DOAC for AF. No orthopnea, no paroxysmal external dyspnea, no lower extremity edema. An event monitor per PCP/ for 30 days, he did have noted bradycardia, he has multiple episodes of nocturnal bradycardia but he does have bradycardia and second-degree AV block noted during the day patient has been asymptomatic denies chest pain, shortness of breath, lightheadedness, dizziness, palpitations, syncope/presyncope stress test 05/2022 shows large, fixed, transmural defect but no reversible ischemia, with Lexiscan stress test he has history of HFrEF and has had reduced EF less than 35%, recent echo 03/2022 shows EF 25 to 30%, he has been on GDMT Echo 04/2020 shows EF 35 to 40% ECG 01/15/2020 shows right bundle branch block, QRS 138 with second-degree AV block, asymptomatic PMH: Past Medical History: Diagnosis Date Allergies Arthritis Bladder problem Cancer (CMS/HCC) Carotid stenosis CHF (congestive heart failure) ([facility]/HCC) Coronary artery disease Hypertension Kidney problem Myocardial infarction ([facility]) PSH: Past Surgical History: Procedure Laterality Date CORONARY ARTERY BYPASS GRAFT 02/05/2017 CTA HEART CORONARY 02/03/2017 CT HEART CORONARY ANGIOGRAM PARIKH CONVERSION NEPHRECTOMY 07/28/2017 PERCUTANEOUS CHEST DRAIN INSERTION SH: Social Determinants of Health Tobacco Use: Medium Risk (03/11/2023) Patient History Smoking Tobacco Use: Former Smokeless Tobacco Use: Never Passive Exposure: Not on file Alcohol Use: Not on file Financial Resource Strain: Not on file Food Insecurity: Not on file Transportation Needs: Not on file Physical Activity: Not on file Stress: Not on file Social Connections: Not on file Intimate Partner Violence: Not on file Depression: Not on file Housing Stability: Not on file Allergies: Allergies Allergen Reactions Requip [Ropinirole] Tramadol Unknown Weight: 79kg Visit Vitals BP (!) 138/49 (BP Location: Left arm, Patient Position: Sitting, BP Cuff Size: Large adult) Pulse 59 Ht 1.829 m (6') Wt 79 kg (174 lb 3.2 oz) SpO2 96% BMI 23.63 kg/m??? Smoking Status Former BSA 2 m??? Meds: Current Outpatient Medications on File Prior to Visit Medication Sig Dispense Refill apixaban (Eliquis) 2.5 mg tablet Take 1 tablet (2.5 mg) by mouth in the morning and at bedtime. 60 tablet 11 aspirin 81 mg chewable tablet aspirin 81 mg Chew Tab Start Date: 05/24/20 Status: Ordered atorvastatin (Lipitor) 40 mg tablet 1 (one) time each day at the same time. ferrous sulfate 325 (65 Fe) MG tablet in the morning. hydrALAZINE (Apresoline) 25 mg tablet Take 1 tablet (25 mg) by mouth in the morning and at bedtime. 60 tablet 11 HYDROcodone-acetaminophen ([place]) 5-325 mg tablet 1 tablet as needed isosorbide mononitrate ER (Imdur) 30 mg 24 hr tablet Take 1 tablet (30 mg) by mouth in the morning. Do not crush or chew. 30 tablet 11 lisinopril 5 mg tablet Take 5 mg by mouth in the morning. magnesium oxide (Mag-Ox) 400 mg (241.3 mg magnesium) tablet 1 (one) time each day at the same time. spironolactone (Aldactone) 25 mg tablet Take 1 tablet (25 mg) by mouth once daily as directed. 90 tablet 3 carvedilol (Coreg) 12.5 mg tablet Take 1 tablet (12.5 mg) by mouth with breakfast and with evening meal. 180 tablet 3 No current facility-administered medications on file prior to visit. ROS: Review of Systems HENT: Positive for hearing loss. Respiratory: Positive for shortness of breath. Musculoskeletal: Positive for back pain and muscle cramps. Neurological: Positive for numbness. Physical Exam: Constitutional General Appearance: well-nourished, well-developed, appears stated age Level of Distress: comfortable Psychiatric Mental Status: alert, normal affect Orientation: oriented to time, place, and person Insight: good judgement Eyes Lids and Conjunctivae: non-injected, no xanthelasma ENMT Ears: no lesions on external ear Nose: no lesions on external nose Oropharynx: no cyanosis, no pallor Neck Neck: supple, trachea midline Carotid Arteries: bilateral normal upstroke, no bruits Jugular Veins: normal jugular venous pressure Thyroid: not enlarged Lungs Respiratory Effort: unlabored Chest Exam: normal curvature, no thoracic deformity Auscultation: clear, no wheezing, no rales, no rhonchi Cardiovascular Rate And Rhythm: regular Heart Sounds: normal S1, normal s2, no gallop Systolic Murmur: not heard Diastolic Murmur: not heard Extremities: no cyanosis, no edema, no peripheral (more content not included)... [facility]07-18-2023 Evaluation note* Encounter Date Diagnosis Assessment Notes Treatment Notes Treatment Clinical Notes Jan, Lumbar spondylosis (ICD-10 - M47.816) [employer] Other 06-29-2023 Evaluation note* Encounter Date Diagnosis Assessment Notes Treatment Notes Treatment Clinical Notes Dec, Ischemic cardiomyopathy (ICD-10 - I25.5) This patient is stable without activity related CP, dyspnea or lightheadedness. They are instructed to continue exercise and AHA diet plan. Dec, Chronic HFrEF (heart failure with reduced ejection fraction) (ICD-10 - I50.22) Instructed on low salt diet, exercise and daily weights. Instructed to notify office for any unexpected weight gain > 3lbs and/or increased dyspnea, difficulty breathing during sleep, worsening lower extremity swelling, chest pain or lightheadedness. Reviewed GDMT w/ beta blockers, HANNA/ARB/ARNI, MRA and SGLT-2 Dec, Paroxysmal atrial fibrillation (ICD-10 - I48.0) This patient is in NSR or rate controlled. This patient is anticoagulated to prevent thromboembolic events. They are maintaining regular scheduled appts with their descriptive catalog librarian. Discussed need for AC to prevent thromboembolic events. - discussed cost of Eliquis vs Warfarin - discussed advantages of DOAC over VKA Dec, IFG (impaired fasting glucose) (ICD-10 - R73.01) This patient is following a comprehensive diabetic treatment plan. They are checking their feet daily for calluses and nonhealing ulcers. They are being seen for yearly dilated eye examinations. Goals: SBP less than 130, LDL less than 100, FBS less than 140, AC and A1C less than 7%. They are checking their BS daily, will which are reviewed at the office visit. Continue regular routine monitoring of A1C,] Microalbumin, Dilated eye exam and Foot exam Dec, Mucopurulent chronic bronchitis (ICD-10 - J41.1) Mucinex as needed. Cough and deep breathing exercises UTD w/ Vaccinations Dec, Essential hypertension (ICD-10 - I10) This patient is instructed to consume a healthy, low-fat, low-salt diet. They are also encouraged to continue exercise to achieve/maintain a normal BMI. Dec, Lumbar spondylosis (ICD-10 - M47.816) The patient is instructed to avoid bending, twisting or lifting. They are to use intermittent heat and ice as needed. They may schedule a massage or gentle manipulation. They may safely use Tylenol as needed. Requires opiated medication to continue ADL Dec, Local infection of the skin and subcutaneous tissue, unspecified (ICD-10 - L08.9) Cleanse w/ soap and water. Initiate Bactroban ointment bid. Dec, Other Continue surveillance CT Denies CP, dyspnea or hemoptysis [employer] Other 06-28-2023 NoteUT Electrophysiology Consult Note Reason for visit: bradycardia HPI: Arian Olivera is a 82 y.o. year old for EP clinic for bradycardia takes Coreg 12.5 mg twice daily An event monitor per for 30 days, he did have noted bradycardia, he has multiple episodes of nocturnal bradycardia but he does have bradycardia and second-degree AV block noted during the day His changes beta-erica dose -patient has been asymptomatic denies chest pain, shortness of breath, lightheadedness, dizziness, palpitations, syncope/presyncope stress test 05/2022 shows large, fixed, transmural defect but no reversible ischemia, with Lexiscan stress test he has history of HFrEF and has had reduced EF less than 35%, recent echo 03/2022 shows EF 25 to 30%, he has been on GDMT Echo 04/2020 shows EF 35 to 40% patient is actually candidate for ICD at this point ECG 01/15/2020 shows right bundle branch block, QRS 138 with second-degree AV block, asymptomatic Per dr. Gregg 06/2022 HPI: Arian Olivera is a 82 y.o. male With a history of coronary artery disease, heart failure with reduced ejection fraction, chronic kidney disease here in routine follow-up He had described exertional shortness of breath on his last visit. He subsequently underwent a stress test. This is nonischemic. He informs me that the shortness of breath has been stable for the past 6 to 12 months. It may have become a little worse. He is still able to perform significant physical activities without chest discomfort. He becomes short of breath towards the end of those activities. No orthopnea, no paroxysmal external dyspnea, no lower extremity edema. No unintentional weight gain, no significant abdominal distention or bloating. He used to smoke in his 20s. PMHx: CAD s/p CABG, HFrEF, carotid stenosis, bladder CA with hx urinary stents and chronic right nephrostomy tube (follows with Dr. Blanca) PMH: Past Medical History: Diagnosis Date Allergies Arthritis Bladder problem Cancer ([facility]) Carotid stenosis CHF (congestive heart failure) ([facility]) Coronary artery disease Hypertension Kidney problem Myocardial infarction ([facility]) PSH: Past Surgical History: Procedure Laterality Date CORONARY ARTERY BYPASS GRAFT 02/05/2017 CTA HEART CORONARY 02/03/2017 CT HEART CORONARY ANGIOGRAM PARIKH CONVERSION NEPHRECTOMY 07/28/2017 PERCUTANEOUS CHEST DRAIN INSERTION SH: Social Determinants of Health Tobacco Use: Medium Risk (01/22/2023) Patient History Smoking Tobacco Use: Former Smokeless Tobacco Use: Never Passive Exposure: Not on file Alcohol Use: Not on file Financial Resource Strain: Not on file Food Insecurity: Not on file Transportation Needs: Not on file Physical Activity: Not on file Stress: Not on file Social Connections: Not on file Intimate Partner Violence: Not on file Depression: Not on file Housing Stability: Not on file Allergies: Allergies Allergen Reactions Requip [Ropinirole] Tramadol Unknown Weight: 81.2kg Visit Vitals BP 180/86 Pulse 59 Ht 1.829 m (6') Wt 81.2 kg (179 lb) SpO2 97% BMI 24.28 kg/m??? Smoking Status Former BSA 2.03 m??? Meds: Current Outpatient Medications on File Prior to Visit Medication Sig Dispense Refill aspirin 81 mg chewable tablet aspirin 81 mg Chew Tab Start Date: 05/24/20 Status: Ordered atorvastatin (Lipitor) 40 mg tablet 1 (one) time each day at the same time. carvedilol (Coreg) 12.5 mg tablet Take 1 tablet (12.5 mg) by mouth with breakfast and with evening meal. 180 tablet 3 ferrous sulfate 325 (65 Fe) MG tablet in the morning. hydrALAZINE (Apresoline) 10 mg tablet Take 1 tablet (10 mg) by mouth in the morning and at bedtime. 60 tablet 11 HYDROcodone-acetaminophen ([place]) 5-325 mg tablet 1 tablet as needed isosorbide mononitrate ER (Imdur) 30 mg 24 hr tablet Take 1 tablet (30 mg) by mouth in the morning. Do not crush or chew. 30 tablet 11 lisinopril 5 mg tablet Take 5 mg by mouth in the morning. magnesium oxide (Mag-Ox) 400 mg (241.3 mg magnesium) tablet 1 (one) time each day at the same time. spironolactone (Aldactone) 25 mg tablet Take 1 tablet (25 mg) by mouth once daily as directed. 90 tablet 3 [DISCONTINUED] Anoro Ellipta 62.5-25 mcg/actuation blister with device [DISCONTINUED] tamsulosin (Flomax) 0.4 mg 24 hr capsule Take 0.4 mg by mouth in the morning and at bedtime. No current facility-administered medications on file prior to visit. ROS: Cardio Basic Cardiovascular Symptoms: no lightheadedness, no leg edema, no syncope, no orthopnea, no PND, no claudication, Constitutional Constitutional: no fever, no night sweats, no significant weight gain, no significant weight loss, no exercise intolerance Eyes Eyes: no dry eyes, no irritation, no vis (more content not included)... [facility]06-28-2023 NoteReview of Systems All other systems reviewed and are negative.[facility] 01-13-2023 Evaluation note* Encounter Date Diagnosis Assessment Notes Treatment Notes Treatment Clinical Notes Dec, Lumbar spondylosis (ICD-10 - M47.816) [employer] Other 05-11-2023 Evaluation note* Encounter Date Diagnosis Assessment Notes Treatment Notes Treatment Clinical Notes November, Lumbar spondylosis (ICD-10 - M47.816) [employer] [facility] [employer] Other 05-09-2023 Evaluation + Plan note Diagnostic Tests Pending * Uro[facility]ysion Fish and Urine Cyto ([facility]) 12/03/22 [facility] Evaluation note* Encounter Date Diagnosis Assessment Notes Treatment Notes Treatment Clinical Notes Oct, Second degree Mobitz I AV block (ICD-10 - I44.1) [employer] Other 03-30-2023 Evaluation note* Encounter Date Diagnosis Assessment Notes Treatment Notes Treatment Clinical Notes Sep, Ischemic cardiomyopathy (ICD-10 - I25.5) Sep, Lumbar spondylosis (ICD-10 - M47.816) [employer] Other 03-29-2023 Evaluation note* Encounter Date Diagnosis Assessment Notes Treatment Notes Treatment Clinical Notes Sep, Ischemic cardiomyopathy (ICD-10 - I25.5) This patient is stable without activity related CP, dyspnea or lightheadedness. They are instructed to continue exercise and AHA diet plan. Daily weights and take extra diuretic for unexplained weight gain. Continue GDMT Sep, Paroxysmal atrial fibrillation (ICD-10 - I48.0) This patient is in NSR or rate controlled. This patient is anticoagulated to prevent thromboembolic events. They are maintaining regular scheduled appts with their descriptive catalog librarian. Sep, IFG (impaired fastin g glucose) (ICD-10 - R73.01) Healthy diet, keep active, A1C every 6 mo. Sep, Chronic venous insufficiency (ICD-10 - I87.2) Avoid salt and elevate lower extremities, support stockings, inspect legs and feet daily for blisters and ulcerations. 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 Inspect feet for ulcers and cuts. Continue antiplatelet and statin therapy. Notify office for nonhealing sores. Sep, Hyperlipidemia type II (ICD-10 - E78.01) Diet and exercise with continued statin therapy. 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 Monitor for color change, fever or pain Sep, Mucopurulent chronic bronchitis (ICD-10 - J41.1) Declined f/u w/ cardiovascular disease specialist Stiolto w/o benefit No breathlessness, wheeziong or coughinng No activity limiting symptoms Sep, Lumbar spondylosis (ICD-10 - M47.816) The patient is instructed to avoid bending, twisting or lifting. They are to use intermittent heat and ice as needed. They may schedule a massage or gentle manipulation. They may safely use Tylenol as needed. Sep, Bradycardia (ICD-10 - R00.1) Slow AFib? EKG order sent [employer] Other 03-27-2023 Evaluation + Plan note Diagnostic Tests Pending * Urine Culture 10[facility]21[facility]22 [facility] Chief Complaint: Patient here for follow up stress test per Matilde Miller. Still denies chest pain but gets very SOB with exertion. BP averages in the 140's-150's systolic when he checks it at home. Some of the readings he says were taking before his meds. Says he sometimes forgets to take his meds. HPI: Arian Olivera is a 82 y.o. male With a history of coronary artery disease, heart failure with reduced ejection fraction, chronic kidney disease here in routine follow-up He had described exertional shortness of breath on his last visit. He subsequently underwent a stress test. This is nonischemic. He informs me that the shortness of breath has been stable for the past 6 to 12 months. It may have become a little worse. He is still able to perform significant physical activities without chest discomfort. He becomes short of breath towards the end of those activities. No orthopnea, no paroxysmal external dyspnea, no lower extremity edema. No unintentional weight gain, no significant abdominal distention or bloating. He used to smoke in his 20s. PMHx: CAD s/p CABG, HFrEF, carotid stenosis, bladder CA with hx urinary stents and chronic right nephrostomy tube (follows with Dr. Blanca) Cardiology ROS: Review of Systems Cardiovascular: Positive for dyspnea on exertion. Musculoskeletal: Positive for back pain. Neurological: Positive for light-headedness. All other systems reviewed and are negative. Past Medical History He has a past medical history of Allergies, Arthritis, Bladder problem, Cancer (CMS/HCC), Carotid stenosis, CHF (congestive heart failure) (CMS/HCC), Coronary artery disease, Hypertension, Kidney problem, and Myocardial infarction (CMS/HCC). Surgical History He has a past surgical history that includes CT heart coronary angiogram (02/03/2017); Nephrectomy (07/28/2017); Percutaneous chest drain insertion; and Coronary artery bypass graft (02/05/2017). Social History He reports that he has quit smoking. His smoking use included cigarettes. He smoked an average of 1 pack per day. He has never used smokeless tobacco. No history on file for alcohol use and drug use. Family History No family history on file. Allergies Requip [ropinirole] and Tramadol Medications (Not in a hospital admission) Last Recorded Vitals Patient Vitals for the past 24 hrs: BP Pulse SpO2 Height Weight 07/01/22 0955 128/64 64 98 % 1.829 m (6') 78.9 kg (174 lb) Physical Examination: GENERAL: alert and oriented x3, well developed, in no acute distress. HEAD: atraumatic, normocephalic. EYES: ABISAI, EOMI. NECK: trachea midline, no JVD present, no carotid bruits present. CARDIAC: S1, S2 present. RRR. No murmur, rubs, or gallops. RESPIRATORY: CTAB, no increased effort of breathing, no rales, rhonchi, or wheezing. ABDOMEN: soft, nontender, nondistended. EXTREMITIES: no lower extremity edema, peripheral pulses are 2+ bilaterally. No rash/skin discoloration present. NEURO: strength/sensation equal and symmetric in bilateral upper and lower extremities. PSYCH: appropriate mood, affect, and judgement. Investigations: ECHO 05/10/2020 Left Ventricle: Normal size left ventricle. Global left ventricular systolic function is mildly to moderately reduced. EF range is estimated at 35%-40 %. Left ventricular wall thickness is mildly increased. Diffuse global hypokinesis. Normal diastolic function. Concentric left ventricular hypertrophy. Right Ventricle: The right ventricle is normal in size. Normal right ventricular systolic function. Pulmonary artery pressure normal. Left Atrium: The left atrium is mildly enlarged. IAS: Doppler color flow suggests a patent foramen ovale. Mitral Valve: Mild mitral regurgitation. Overall Conclusions: No significant change when compared to the previous study 04/06/2019 Stress test 06/04/2022: Conclusion: Large, fixed, transmural defect involving the inferolateral wall, circumflex and RCA distributions No reversible ischemia Moderate diffuse hypokinesis with low left ventricular systolic function of 43% Normal exercise test Labs 04/2022: Serum creatinine 1.77 Assessment: 1. Coronary arteriosclerosis I25.10: Atherosclerotic heart disease of [place] coronary artery without angina pectoris 2. Chronic systolic heart failure I50.22: Chronic systolic (congestive) heart failure 3. Ischemic congestive cardiomyopathy I25.5: Ischemic cardiomyopathy 4. Right carotid artery occlusion I65.21: Occlusion and stenosis of right carotid artery 5. Essential hypertension - Uncontrolled I10: Essential (primary) hypertension HIGH BLOOD PRESSURE: CARE INSTRUCTIONS LEARNING ABOUT HIGH BLOOD PRESSURE 6. Chronic kidney disease Plan: We will order pulmonary function tests Continue current medical therapy; he has no signs of volume overload. 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 [facility]11-23-2022 Evaluation + Plan note Diagnostic Tests Pending * Urine Culture 06/19/22 [facility]11-07-2022 NoteCARDIAC STRESS TEST Requesting Physician: Procedure Date:06/03/2022 Informed consent was obtained. The patient was attached to electrocardiographic monitoring. An intravenous line was secured. The patient started exercising on the treadmill according to the Juan protocol; however, due to inability to continue on the treadmill due to fatigue and inability to reach target heart rate, the test was switched to Lexiscan stress. Intravenous Lexiscan 0.4 mg was administered intravenously with continued electrocardiographic monitoring. Following that, the patient went on to obtain cardiac imaging. Resting heart rate was 67 BPM and peak heart rate was 110 BPM representing 78% of maximal predicted heart rate. Resting blood pressure was 168/90 with peak blood pressure being 198/86. Baseline EKG showed sinus rhythm with first degree AV block and right bundle branch block. ECG during the exercise portion as well as following Lexiscan showed sinus rhythm with incomplete right bundle branch block with occasional PVCs and sinus arrhythmias. There was no evidence of ischemic ST changes noted. IMPRESSION: 1. No evidence of ischemic ECG changes after low level treadmill exercise and following infusion of Lexiscan. 2. Uncontrolled systemic hypertension. 3. Myocardial perfusion images will be reported separately.[facility] 05-20-2022 NotePatient here for 6 mo follow up cardiomyopathy, CAD, and CHF. Had echo last month, and labs 2 weeks ago. He sees Dr. Montano for carotid artery stenosis. Brought in a blood pressure log. Some HR are in the 30's and 40's. Only one low BP (99/63) and he said he felt bad that day. Denies chest pain. Gets SOB with exertion. He has apt with nephrology this week. Review of Systems Cardiovascular: Positive for dyspnea on exertion. Musculoskeletal: Positive for back pain. All other systems reviewed and are negative.[facility] 05-20-2022 NoteSUBJECTIVE Chief Complaint Patient presents with Ischemic congestive cardiomyopathy Congestive Heart Failure Coronary Artery Disease Hypertension carotid artery stenosis Arian Olivera is a 82 y.o. male here for follow-up. HPI PMHx: CAD s/p CABG, HFrEF, carotid stenosis, bladder CA with hx urinary stents and chronic right nephrostomy tube (follows with Dr. Blanca) No hospitalizations since last visit His BP has been flutuating, but he has noticed some low heart rates, as low as 38. He feels fatigued during these times. C/o worsened SOB with exertion. Weight has been stable at home, 172-174 He will be seeing his kidney specialist this afternoon. Patient Active Problem List Diagnosis Coronary artery disease Hypertension Past Medical History: Diagnosis Date Carotid stenosis CHF (congestive heart failure) ([facility]) Coronary artery disease Hypertension No family history on file. Allergies Allergen Reactions Requip [Ropinirole] Review of Systems Cardiovascular: Positive for dyspnea on exertion. Musculoskeletal: Positive for back pain. All other systems reviewed and are negative. OBJECTIVE Visit Vitals BP 165/73 (BP Location: Left arm, Patient Position: Sitting) Pulse 54 Ht 1.829 m (6') Wt 81.6 kg (180 lb) SpO2 98% BMI 24.41 kg/m??? BSA 2.04 m??? Medications: Current Outpatient Medications: aspirin 81 mg chewable tablet, aspirin 81 mg Chew Tab Start Date: 05/24/20 Status: Ordered, Disp: , Rfl: atorvastatin (Lipitor) 40 mg tablet, 1 (one) time each day at the same time., Disp: , Rfl: carvedilol (Coreg) 25 mg tablet, Take 12.5 mg by mouth in the morning and at bedtime., Disp: , Rfl: ferrous sulfate 325 (65 Fe) MG tablet, in the morning., Disp: , Rfl: HYDROcodone-acetaminophen ([place]) 5-325 mg tablet, 1 tablet as needed, Disp: , Rfl: lisinopril 5 mg tablet, lisinopril 5 mg tablet, Disp: , Rfl: spironolactone (Aldactone) 25 mg tablet, 1 tablet, Disp: , Rfl: hydrALAZINE (Apresoline) 10 mg tablet, Take 1 tablet (10 mg) by mouth in the morning and at bedtime., Disp: 60 tablet, Rfl: 11 isosorbide mononitrate ER (Imdur) 30 mg 24 hr tablet, Take 1 tablet (30 mg) by mouth in the morning. Do not crush or chew., Disp: 30 tablet, Rfl: 11 Physical Exam Labs/Testing/Procedures: Labs 05/14/2022: Cr. 1.87, BUN 32, K 4.4, GFR 35 labs from 09/21/21 Renal function slightly improved from Jul 2021 BUN 29 Cr 1.67 CBC stable 07/31/21 BUN 33 Cr 1.83 05/23/21- BUN 24 CR 1.9 12/15/20 Chol 64, HDL 32, Trig 47, LDL 22.6 Legacy Encounter on 01/08/2017 Component Date Value Ref Range Status Ventricular Rate 01/08/2017 82 BPM Final Atrial Rate 01/08/2017 82 BPM Final [place] Interval 01/08/2017 210 ms Final QRS DURATION 01/08/2017 100 ms Final QT Interval 01/08/2017 380 ms Final QTC CALCULATION(BEZET) 01/08/2017 443 ms Final P [place] 01/08/2017 8 degrees Final R-[place] 01/08/2017 -18 degrees Final T Wave [place] 01/08/2017 65 degrees Final Diagnosis 01/08/2017 Final Value:Sinus rhythm with 1st degree A-V block Possible Inferior infarct (cited on or before 06-JAN-2017) Abnormal ECG When compared with ECG of 07-JAN-2017 06:53, No significant change was found Confirmed by Genny ALVARADO, L.S. (2) on 01/08/2017 11:15:07 AM Echo 04/16/2022 LV systolic function severely reduced estimated EF 25 to 30% with global hypokinesis, grade 2 diastolic dysfunction Mildly dilated LA and moderately dilated RA RV appears enlarged with decreased RV systolic function Moderate to severe mitral regurg ECHO 05/10/2020 Left Ventricle: Normal size left ventricle. Global left ventricular systolic function is mildly to moderately reduced. EF range is estimated at 35%-40 %. Left ventricular wall thickness is mildly increased. Diffuse global hypokinesis. Normal diastolic function. Concentric left ventricular hypertrophy. Right Ventricle: The right ventricle is normal in size. Normal right ventricular systolic function. Pulmonary artery pressure normal. Left Atrium: The left atrium is mildly enlarged. IAS: Doppler color flow suggests a patent foramen ovale. Mitral Valve: Mild mitral regurgitation. Overall Conclusions: No significant change when compared to the previous study 04/06/2019 Limited ECHO 04/06/2019 Global left ventricular systolic function is moderately reduced (Visually estimated EF 40%). Diffuse global hypokinesis. Limited echocardiogram was done to assess left ventricular systolic function compared to previous study in 04-06-2018 no significant change in EF. ECHO (04/06/2018) Global left ventricular systolic function is moderately reduced (Visually estimated EF 35%). Diffuse global hypokinesis. Normal right ventricular systolic function. The right ventricle is severely enlarged. The left atrium is moderately enlarged. The right atrium is severely enlarged. Moderate mitral regurgitation. Mild tricuspid regurgitation. Doppler elio (more content not included)...[facility] 04-26-2022 Evaluation + Plan note Diagnostic Tests Pending * [facility] FISH ([facility]) 04/26/[address] [facility] 09-12-2022 Evaluation + Plan note Diagnostic Tests Pending * Uro[facility]ysion Fish and Urine Cyto ([facility]) 04/08/[address] [facility] 04-27-2022 Evaluation + Plan note Diagnostic Tests Pending * [facility]ro[facility] Fish and Urine Cyto ([facility]) 11/21/[address] [facility] 04-08-2022 Evaluation + Plan note Diagnostic Tests Pending * Uro[facility] Fish and Urine Cyto ([facility]) 11/02/21 [facility] evaluation + Plan note Future Appointments Appointment Date:12/03/2022 09:00:00 AM Scheduled Provider: Location:[facility] Hospital Appointment Type:URO Nurse Visit [facility] evaluation + Plan note Future Appointments Appointment Date:12/03/2022 09:00:00 AM Scheduled Provider: [place] [place] Appointment Type:URO Nurse Visit Diagnostic Tests Pending * [facility] Work Phone: Evaluation noteNo InformationNort [facility] Other History general Narrative - Reported* Type Description Date Medical History Increase in creatinine Medical History Elevated serum creatinine Medical History Mucopurulent chronic bronchitis Medical History Lumbar spondylosis Medical History Chronic systolic CHF (congestive heart failure) Medical History Coronary artery disease Medical History Solitary pulmonary nodule Medical History Paroxysmal atrial fibrillation Medical History Atherosclerosis of b oth lower extremities with intermittent claudication Medical History Essential hypertension Medical History Ischemic cardiomyopathy Medical History Hypertensive chronic kidney disease with stage 1 through stage 4 chronic kidney disease, or unspecified chronic kidney disease Medical History Liver mass Medical History Left carotid stenosis Medical History Chronic venous insufficiency Medical History IFG (impaired fasting glucose) Medical History Transitional cell carcinoma Medical History Hyperlipidemia type II Medical History Nausea Medical History ASHD (arteriosclerotic heart dis ease) Medical History Dizziness Surgical History CYSTOSCOPY 2019,2020,2021, Surgical History RIGHT URETERAL STENT PLACEMENT 2008 Surgical History COLONOSCOPY Surgical History LHC MULTIVESSEL DS 2016 Hospitalization History SEE SURGICAL [employer] Other Hisnrdg general Narrative - Reported* Type Description Date Medical History Increase in creatinine Medical History Elevated serum creatinine Medical History Mucopurulent chronic bronchitis Medical History Lumbar spondylosis Medical History Chronic systolic CHF (congestive heart failure) Medical History Coronary artery disease Medical History Solitary pulmonary nodule Medical History Paroxysmal atrial fibrillation Medical History Atherosclerosis of b oth lower extremities with intermittent claudication Medical History Essential hypertension Medical History Ischemic cardiomyopathy Medical History Hypertensive chronic kidney disease with stage 1 through stage 4 chronic kidney disease, or unspecified chronic kidney disease Medical History Liver mass Medical History Left carotid stenosis Medical History Chronic venous insufficiency Medical History IFG (impaired fasting glucose) Medical History Transitional cell carcinoma Medical History Hyperlipidemia type II Medical History Nausea Medical History ASHD (arteriosclerotic heart dis ease) Medical History Dizziness Surgical History CYSTOSCOPY 2019,2020,2021, Surgical History RIGHT URETERAL STENT PLACEMENT 2008 Surgical History COLONOSCOPY Surgical History LHC MULTIVESSEL DS 2016 Surgical History Cystoscopy 11/2022 Hospitalization History SEE SURGICAL HX [employer] Other Hospital course Narrative No data available for this section [facility] Hospital Discharge instructions No data available for this section [facility] Hospital Discharge instructions Additional Instructions I am glad that your nephrostomy is no longer obstructed. I assume there was a small blood clot blocking the catheter given the blood in your nephrostomy bag. Call Dr Blanca in the morning to discuss whether anything else needs to be done. If the tube gets obstructed again, come back right away so we can clear it out.[facility] Work Phone: Progress note No data available for this section [facility] Summary Purpose Family History No Family History Records FoundNo Family History Records FoundNo Family History Records FoundNo Family History Records FoundNo Family History Records Found Advance Directives No Advanced Directives Records Found Advance Directive Response Recorded Date/ Time Advance Directives No December 01, 2017 8:14am Advance Directive Response Recorded Date/ Time Advance Directives No December 01, 2017 7:14am Chief Complaint and Reason for Visit Chief Complaint Hydronephrosis Chief Complaint nephrostomy tube exc hange tube exchange Chief Complaint Hydronephrosis Neph pain Additional Source Comments (unrecognized sect ion and content) No Status Records FoundNo Status Records FoundNo Status Records FoundNo Status Records FoundNo Status Records Found INFORMATION SOURCE (unrecogn ized section and content) DATE CREATED AUTHOR 10/12/2020 [facility] DATE CREATED AUTHOR AUTHOR'S ORGANIZ ATION 01/07/2023 [facility] DATE CREATED AUTHOR AUTHOR'S ORGANIZ ATION 03/12/2023 [facility] DATE CREATED AUTHOR AUTHOR'S ORGANIZ ATION 07/30/2023 [facility] DATE CREATED AUTHOR AUTHOR'S ORGANIZ ATION 08/07/2023 [facility] Care Teams (unrecognized sec tion and content) Team Status: Inactive Member Role Status Dates Benson Mancini , DO Primary Care Provider Active Steven Coronado MD Attending Provider Active Team Status: Active Member Role Status Dates Benson Live , DO Primary Care Provider Active Team Status: Inactive Member Role Status Dates Benson Mancini , DO Primary Care Provider Active Declan Moreira , Attending Provider Active Team Status: Inactive Member Role Status Benson Mancini , DO Primary Care Provider Active Hudson Blanca MD Attending Provider Active Team Status: Inactive Member Role Status Dates Benson Mancini , DO Primary Care Provider Active Jose D Hercules Jr, MD Emergency Provider Active Goals (unrecognized section and content) Goals may be documented in a n alternate section REASON FOR VISIT (unrecogniz ed section and content) [address] acardResultsNo InformationrefillNo InformationNo InformationHolter resultsRefill3 month Follow upMedication QuestionPain Med Refill/IncreaseRefills3 month Follow upRefillTesting wantedAdvanced [facility]/Us resultsRefill FOR RECORDS PERTAINING TO PATIENTS WHO ARE OR HAVE BEEN ENROLLED IN A CHEMICAL DEPENDENCY/SUBSTANCEABUSE PROGRAM, SOME INFORMATION MAY BE OMITTED. This clinical summary was aggregated from multiple sources. Caution should be exercised in using it in the provision of clinical care. This summary normalizes information from multiple sources, and as a consequence, information in this document may materially change the coding, format and clinical context of patient data. In addition, data may be omitted in some cases. CLINICAL DECISIONS SHOULD BE BASED ON THE PRIMARY CLINICAL RECORDS. [employer] provides no warranty or guarantee of the accuracy or completeness of information in this document.
[2023-08-14] MEDS: HYDROMORPHONE HCL 1 MG/ML CARTRIDGE IVP (07:57)
[2023-08-14] MEDS: ONDANSETRON PF 4 MG/2 ML VIAL IV (07:57)
[2023-08-14] MEDS: 0.9 % SODIUM CHLORIDE 1,000 ML 999 ML IV (07:58)
[2023-08-14 08:03] LABS: Basophils Absolute Auto 0.1 10^3/uL (0.0-0.1); Basophils Percent Auto 0.3 % (0.2-2.0); Hematocrit 35.6 % (42.0-54.0); Hemoglobin 11.7 g/dL (14.0-18.0); Immature Granulocytes Abs Auto 0.08 10^3/uL (0.00-0.03); Immature Granulocytes Pct Auto 0.4 % (0.0-0.5); Lymphocytes Absolute Auto 0.4 10^3/uL (1.2-3.8); Mean Corpuscular HGB Conc 32.9 g/dL (29.9-35.2); Mean Corpuscular Hemoglobin 30.3 pg (25.9-34.0); Mean Corpuscular Volume 92.2 fL (80.0-94.0); Mean Platelet Volume 9.6 fL (9.5-13.5); Monocytes Absolute Auto 0.9 10^3/uL (0.3-0.8); Monocytes Percent Auto 4.9 % (1.7-12.0); Neutrophils Absolute Auto 16.9 10^3/uL (1.4-6.5); Neutrophils Percent Auto 92.4 % (43.0-75.0); Platelet Count 190 10^3/uL (150-450); Red Blood Count 3.86 10^6/uL (4.70-6.10); Red Cell Distribution Width 13.3 % (11.0-15.0); White Blood Count 18.3 10^3/uL (4.0-11.0)
[2023-08-14 08:28] LABS: Alanine Aminotransferase 37 U/L (16-63); Albumin Globulin Ratio 0.8; Albumin Level 3.7 g/dL (3.4-5.0); Alkaline Phosphatase 161 U/L (46-116); Anion Gap 17.6; Aspartate Amino Transferase 40 U/L (15-37); BUN Creatinine Ratio 12.9; Bilirubin Total 1.1 mg/dL (0.2-1.0); Calcium 9.3 mg/dL (8.5-10.1); Carbon Dioxide 20.8 mmol/L (21.0-32.0); Chloride 96 mmol/L (98-107); Estimated GFR (African America 22 (>=60); Estimated GFR (Non-African Ame 18 (>=60); Globulin 4.5 g/dL; Glucose 168 mg/dL (74-106); Lactate/Lactic Acid 1.6 mmol/L (0.4-2.0); Potassium 5.4 mmol/L (3.5-5.1); Sodium 129 mmol/L (136-145); Total Protein 8.2 g/dL (6.4-8.2); Troponin I High Sensitivity 29.3 pg/mL (4.0-76.1)
[2023-08-14] MEDS: FENTANYL CITRATE/PF 100 MCG/2 ML VIAL 50 MCG IV ×2 (08:39→09:55)
[2023-08-14] MEDS: LEVOFLOXACIN IN DEXTROSE 5 % 750 MG/150 ML IV.SOLN 100 MG IV (09:42)
[2023-08-14] MEDS: LABETALOL HCL 20 MG/4 ML SYRINGE IVP (10:11)
[2023-08-14] MEDS: HYDRALAZINE HCL 20 MG/ML VIAL 10 MG IVP (10:11)
[2023-08-14] MEDS: LIDOCAINE HCL 10 ML, SODIUM BICARBONATE 1 MEQ INJ (10:20)
[2023-08-14] MEDS: OXYCODONE HCL/ACETAMINOPHEN 5MG/325MG 2 TAB PO (11:33)
--- NOTE | 2023-08-14 13:40 | PC.NURSE ---
1110 Applied secure dressing that pt brought with her around the tubing, then 4x4 gauze folded, and large Tegaderm per Dr Holland. Tube taped to pt right flank with silk tape until he can secure it better with leg bag. Pt assisted up from table and to wheelchair. States that he would like some pain medication for right flank pain. Pt taken by stretcher to ER room 8 for continuation of care and pain medication .
== END 2023-08-14 11:40 | disposition home or self-care (01) ==
PROVIDERS: Radiology Diagnostic Radiology; Emergency Provider Emergency Medicine; PCP Internal Medicine
DX: T83.512A Infection and inflammatory reaction due to nephrostomy catheter, initial encounter (principal); Z79.01 Long term (current) use of anticoagulants; Z79.899 Other long term (current) drug therapy; Z79.82 Long term (current) use of aspirin
CPT/HCPCS: 36415; 50435; 74176; 80053; 83605; 83690; 84484; 85025; 87040; 93005; 96361; 96365; 96375; 96376; 99285; J0360; J1170; J1290; J2405; J3010; Q9966

== ENCOUNTER 2023-11-03 08:49 | Outpatient (OUT) | payer MEDICARE, SELFPAY ==
--- OUTSIDE RECORDS SUMMARY | 2023-11-03 08:55 | XMS_ITS | CCD ---
Author Organization [facility] Care Team Providers Care Farmer [employer] Name Role Phone RICHIE WALTON Attending Unavailable RICHIE WALTON Admitting Unavailable LIVE, BENSON Referring Unavailable BALL, BENSON Primary Care Unavailable TERESITA BLACKWELL Primary Care Physician DO Benson Mancini Primary Care Provider [phone] MD Steven Coronado Attending Provider DO Benson Mancini Primary Care Provider DO Declan Moreira Attending Provider Unavailable Live, DO Knowles Primary Care Provider MD Hudson Blanca Attending Provider [phone] DO Declan Moreira Attending Provider Unavailable Benson Mancini Unavailable DR BENSON MANCINI Attending Unavailable BALL, DR KNOWLES Consulting Unavailable [...] MISC, DR RUTLEDGE Consulting Unavailable REQUEST, DR NONE LISTED Attending Unavaila ble Ball, DO Knowles Primary Care Provider MD Hudson Blanca Attending Provider DO Benson Mancini Primary Care Provider MD Hudson Blanca Attending Provider MD Jose D Hercules Jr Emergency Provider Benson Mancini Primary Care Unavailable Moreira, Declan Admitting Unavailable Moreira, Declan Attending Unavailable Blanca, Hudson Admitting Unavailable Blanca, Hudson Attending Unavailable Ball, Benson Primary Care Unavailable Ball, Benson Primary Care Unavailable Jose D Hercules Jr Admitting Unavailable Jose D Hercules Jr Attending Unavailable Blanca, Hudson Attending Unavailable Ball, Benson Primary Care Unavailable Blanca, Hudson Admitting Unavailable Ball, Benson Primary Care Unavailable Moreira, Declan Admitting Unavailable Moreira, Declan Attending Unavailable EDGAR HARRELL Attending Unavailable JOAQUIN, RAJENDRA Attending Unavailable HAYLANEY Referring Unavailable JOAQUIN, RAJENDRA Attending Unavailable BLANCA, Hudson R Attending Unavailable BLANCA, Hudson R Attending Unavailable BLANCA, Hudson R Attending Unavailable BLANCA, Hudson R Admitting Unavailable BLANCA, Hudson R Attending Unavailable Allergies Allergy Classification Reported Allergen(s) Allergy Type Date of Onset Reaction(s) Facility (20 sources) traMADol; Translations: [tramadol] Drug Allergy 8 Nausea, Unknown [facility] (1 source) patient allergy list reviewed by nurse or physicia Propensity to adverse reactions 8 Comment:Done [employer] Other (1 source) rOPINIRole; Translations: [ROPINIROLE] Drug Allergy 2 [facility] Repository (1 source) No Known Medication Allergies; Translations: [No Known Medication Allergies] Propensity to adverse reactions (disorder) [facility] Repository Medications Current Medications Medication Drug Class(es) [...] kristina th every eight hours for pain Edgar 325 mg-5 mg oral tablet 1 tab(s), Oral, q8hr for pain, 15 tab(s), Refill(s) 0, [facility] Start Date: 03/03/20 Status: Ordered Start: 02-25-2020 take 1 tablet by kristina th once Edgar 325 mg-5 mg oral tablet 1 tab(s), Oral, Once, 1 tab(s), Refill(s) 0, Take 30 minutes prior to procedure, [facility] [address] Start Date: 02/25/20 Status: Ordered Start: [...] q12hr, # 20 cap(s), Refills(s) 0, Pharmacy: [facility] #[id number] Start Date: 10/21/22 Status: Ordered Start: 06-19-2022 End: 06-26-2022 take 1 capsule by mouth every twelve hours Keflex 500 mg Cap 500 mg = 1 cap(s), Oral, q12hr, X 7 day(s), # 14 cap(s), Refills(s) 0, Pharmacy: [facility] #[id number] Start Date: 06/19/22 Stop Date: 06/26/22 Status: Ordered Start: 04-14-2020 take 1 capsule by mo [facility] twice daily Keflex 500 mg Cap 500 mg = 1 cap(s), Oral, BID, # 14 cap(s), Refills(s) 0, Pharmacy: [facility] [facility] Start Date: 04/14/20 Status: Ordered ferrous sulfate [...] BID, # 180 tab(s), Refills(s) 3, Pharmacy: [facility] Start Date: 07/10/20 Status: Ordered [...] day(s), 20 tab(s), Refill(s) 0, [facility] #[id number] Start Date: 11/04/22 Stop Date: 11/14/22 Status: Ordered Start: 06-11-2021 Bactrim DS 800 mg-160 mg Tab 160 mg, Oral, q12hr, 14 tab(s), Refill(s) 0, [facility] [place] [place] [address] Start Date: 06/11/21 Status: Ordered Start: 12-01-2017 [...] procedure, # 2 tab(s), Refills(s) 0, Pharmacy: [facility] #[id number] Start Date: 11/26/22 Status: Ordered Start: 10-30-2021 take 1 tablet by [facility] once daily Cipro 500 mg Tab 500 mg = 1 tab(s), Oral, Daily, Take 1 tablet the day before the procedure and 1 tablet after the procedure, # 2 tab(s), Refills(s) 0, Pharmacy: [facility] [[email or web address] Start Date: 10/30/21 Status: Ordered clopidogrel 75 [...] 1 tablet by mouth four times daily SusyPh ji-Nmzfu-Mes (Uribel) 118-10-40.8-36 mg Capsule Discontinued 1 TAB [...] by mouth twice daily Sod Phos Di, [place]-K Phos [place] (Phospha 250 Neutral) 250 mg Tablet Discontinued 2 TAB PO Twice daily November 30, 2017 11:00pm December 30, 2017 8:09pm Problems Active Problems Problem Classification Problem Date Documented Da te Episodic/Chronic Abdominal pain (1 source) Unspecified abdominal pain; Translations: [Unspecified abdominal pain] Onset: 4 Episodic Alcohol-related disorders (1 source) Alcohol dependence, in [...] Coronary arteriosclerosis; Translations: [Atherosclerotic heart disease of [place] coronary artery without angina pectoris] Onset: 8 [...] sources) Hydronephrosis 02-04-2019 Episodic Other diseases of veins and lymphatics [...] (1 source) Overweight; Translations: [Overweight] Episodic Other upper respiratory infections (1 source) Acute maxillary sinusitis; Translations: [Acute maxillary sinusitis, unspecified] Episodic Peripheral and visceral atherosclerosis (20 sources) Intermittent claudication of bilateral lower limbs co-occurrent and due to atherosclerosis; Translations: [Atherosclerosis of [place] arteries of extremities with intermittent claudication, bilateral [...] artificial openings of urinary tract] Onset: 3 Unclassified (2 sources) Obstructed nephrostomy tube Onset: 4 Urinary tract infections (9 sources) Acute urinary [...] Onset: 05-01-2018 Episodic Other aftercare (1 source) residential (current) use of aspirin; Translations: [LONGTERM CURRENT USE OF ASPIRIN] Onset: 05-01-2022 Episodic Other aftercare (1 source) residential (current) use of antithrombotics/anti platelets; Translations: [[employer] ANTITHROMBOT/ANTIPLA TLETS] Onset: 05-01-2022 Episodic Other aftercare (1 source) Other half-way (current) drug therapy; Translations: [OTH [employer] DEVEL[employer] CURRENT DRUG THERAPY] Onset: 05-01-2022 Episodic Other and unspecified benign neoplasm (1 source) 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; Translations: [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] Onset: 09-22-2017 Episodic Other circulatory disease (1 source) Orthostatic hypotension; Translations: [Orthostatic hypotension] Resolved: 01-14-2022 Episodic Other diseases of kidney and ureters (5 sources) Unspecified hydronephrosis; Translations: [UNSPECIFIED HYDRONEPHROSIS] Onset: 12-24-2022 Episodic Other diseases of kidney and ureters [...] Translations: [Abnormal weight loss] Onset: 04-09-2018 Episodic Other screening for suspected conditions (not mental disorders or infectious disease) (20 sources) Serum creatinine raised; Translations: [Other specified abnormal findings of blood chemistry] Onset: 01-22-2023 Episodic Residual codes; unclassified (1 source) Edema; Translations: [Edema] Onset: 02-10-2018 Episodic Residual codes; unclassified (1 source) Requires influenza virus vaccination; Translations: [Need for prophylactic vaccination and inoculation, Influenza] Onset: 05-01-2018 Episodic Screening and history of mental health and substance abuse codes (13 sources) Ex-smoker; Translations: [Personal history of nicotine dependence] Onset: 08-27-2017 02-04-2019 Episodic Results Test Name Value Interpretation Reference Range Facility Reminderson 10-29-2023 Reminders - From: Sierra Rizzo To: EU - Recalls Blanca; Cc: Sierra Rizzo; Sent: 07/08/2023 09:01:46 EST Show up: 08/28/2023 09:01:00 EST Subject: Neph tube change Due Date/Time: 09/22/2023 09:01:00 EST Reminder/Recall Patient is due in September 2023 for 3 month RT neph tube change at [facility] Patient had neph tube changed in Jul by Dr. Gonsalez due to problems. Pt will be due in October 2023.LG Spoke to pt, he is available all month. l/m on [facility] interventional sched vm to sched.LG Normal [facility] Office Visiton 10-07-2023 Follow-up visit [id number] Arian Olivera Yana 1940 M Date Provider Department Center 10/07/2023 RAJENDRA VILLEGAS CARD [facility] No family history on file Level of Service:39304 [place] OFFICE/OUTPATIENT ESTABLISHED LOW MDM [address] [facility] Physician Orderon 08-06-2023 Physician Order [id number]#1 .00TIFF Normal [facility] ECG 12 lead ECGon 08-05-2023 ECG 12 lead ECG [facility] [place] [address] Electrocardiograph Report Signed Patient: Arian Olivera MR#: [id number] : 1940 Acct:[id number] Age/Sex: 83 / M ADM Date: 08/05/23 Loc: ER Room: Type: [facility] ER Attending Dr: Ordering Provider: Jose D [...] available Confirmed by JOSE D HERCULES MD ([id number]) on 08/05/2023 5:39:43 AM Referred By: Electronically Signed By:JOSE D HERCULES MD Transcribed By: MUS Signed By Jose D Hercules Jr, MD [id number] Normal [facility] Glucose Glucometer (BldC) [M ass/Vol]Ordered By: PROVIDER TEMP on 08-05-2023 Glucose [Mass/Vol] 138 mg/dL [facility] Comment on above: Random Glucose Refer ence Range is dependent on time and content of last meal. Glucose of more than 200 mg/dL in a nonstressed, ambulatory subject supports the diagnosis of Diabetes Mellitus. Glucose Poct Glucometerson 0 08-05-2023 Glucose [Mass/Vol] 138 mg/dL Normal [facility] Comment on above: Result Comment: [place] Glucose Reference Range is dependent on time and content of last meal. Glucose of more than 200 mg/dL in a nonstressed, ambulatory subject supports the diagnosis of Diabetes Mellitus. PERFORMED BY: [facility] [address] [place] [address] PATHOLOGIST [employer] COORDINATOR CAMI RAYA M.D. Performed By: #### G LULS #### Point of Care testing , RAD - MISCon 07-29-2023 RAD - MISC [id number]#1 .00TIFF Normal [facility] IR nephrostomy tube chg UNon 12-29-2023 IR nephrostomy tube chg UN [facility] [place] [address] Interventional Radiology Rpt Signed Patient: Arian Olivera MR#: [id number] : 1940 Acct:[id number] Age/Sex: 83 / M ADM Date: 07/25/23 Loc: IR Room: Type: [facility] Attending Dr: Hudson Blanca MD Copies to: [...] nephrostomy tube. The tube was removed. 12 [place] RIGHT nephrostomy tube was administered with a wire guidance. The tube is in adequate position and was locked. Contrast was administered confirming adequate position. No immediate complications. IR/IR nephrostomy tube chg UN IMPRESSION: Adequate exchange of 12 [place] RIGHT nephrostomy tube. Impression dictated by: Declan Moreira M.D.07/25/2023 11:15 AM Dictation Location: [place] [address] Transcribed By: [facility] 07/25/23 1115 Dictated By: Declan Moreira DO 07/25/23 1109 Signed By: 07/25/23 1115 Normal [facility] Physician Orderon 07-08-2023 Physician Order [id number] .00TIFF [facility] Reminderson 07-08-2023 Reminders - From: Sierra Rizzo To: [facility] Elizabeth Blanca; Cc: Sierra Rizzo; Sent: 01/14/2023 14:22:59 EDT Show up: 02/25/2023 14:22:00 EDT Subject: neph tube change Due Date/Time: 03/17/2023 14:22:00 EDT Reminder/Recall Patient is due in Mar 2023 for 3 month RT neph tube change. Spoke to Amita at [facility] IR, she will check sched and call me back.LG Patient sched for 04/22/23 @ 8:30am, order faxed. Patient will be due in Jun 2023 l/m on pts cell vm to see what his sched looks like to avoid those dates.LG Pt called back, stay away from - 07/15. l/m on [facility] IR sched vm.LG Patient sched for 07/25/23 at 8am, Order faxed.LG [facility] IR nephrostomy tube chg UNon 04-22-2023 IR nephrostomy tube chg UN [facility] [place] [address] Interventional Radiology Rpt Signed Patient: Arian Olivera MR#: [id number] : 1940 Acct:[id number] Age/Sex: 83 / M ADM Date: 04/22/23 Loc: IR Room: Type: [facility] Attending Dr: Declan Moreira DO Copies to: Declan Moreira DO Ordering Provider: Declan Moreira DO Date of Service: 04/22/23 IR/IR nephrostomy tube chg UN: RT NEPH TUBE EXCHANGE Interventional radiology nephrostomy tube exchange Cumulative Air Kerma in mGy: 43.4 mGy. One image obtained. Right-sided nephrostomy tube was exchanged. 12 [place] nephrostomy tube utilized. Tube was advanced with a wire guidance. Contrast was administered with adequate position noted. IR/IR nephrostomy tube chg UN IMPRESSION: Successful exchange of the RIGHT percutaneous nephrostomy tube. Impression dictated by: Declan Moreira M.D.04/22/2023 11:20 AM Dictation Location: [place] [address] Transcribed By: [facility] 04/22/23 1120 Dictated By: Declan Moreira DO 04/22/23 1117 Signed By: 04/22/23 1120 [facility] Physician Orderon 04-15-2023 Physician Order [id number]#1 .00CD:127 Normal [facility] Reminderson 04-11-2023 Reminders - From: Sierra Rizzo To: EU - Recalls Blanca; Cc: Sierra Rizzo; Sent: 04/11/2023 11:37:57 EDT Show up: 10/27/2023 11:37:00 EDT Subject: cysto/fish/cytol Due Date/Time: 11/17/2023 11:37:00 EDT Reminder/Recall Patient is due in November 2023 for 1 year cysto/fish/cytol (bt ck) Normal [facility] Office Visiton 03-11-2023 Follow-up visit [id number] Arian Olivera 1940 M Date Provider Department Center 03/11/2023 RAJENDRA VILLEGAS SVETLANA [facility] No family history on file Level of Service:31124 [place] OFFICE/OUTPATIENT NEW HIGH MDM 60-74 MINUTES Reason for Visit and Comments: Follow-up [379331] - f/u echo and to discuss ICD Normal [facility] RAD - MISCon 01-23-2023 RAD - MISC [id number] .00CD:127 Normal [facility] Office Visiton 01-22-2023 Follow-up visit [id number] Arian Olivera 1940 M Date Provider Department Center 01/22/2023 EDGAR COWAN SVETLANA [facility] No family history on file Level of Service:02692 [place] OFFICE/OUTPATIENT ESTABLISHED MOD MDM 30-39 MIN Reason for Visit and Comments: Follow-up [550791] - Event results Normal [facility] IR nephrostomy tube chg UNon 01-21-2023 IR nephrostomy tube chg UN [facility] [place] [address] Interventional Radiology Rpt Signed Patient: Arian Olivera MR#: [id number] : 1940 Acct:[id number] Age/Sex: 82 / M ADM Date: 01/21/23 Loc: IR Room: Type: [facility] Attending Dr: Hudson Blanca MD Copies to: Hudson Blanca MD Ordering Provider: Hudson Blanca MD [...] Declan Moreira M.D.01/21/2023 2:16 PM Dictation Location: [place] [address] Transcribed By: [facility] 01/21/23 1416 Dictated By: Declan Moreira DO 01/21/23 1404 Signed By: 01/21/23 1416 [facility] Lab Reportson 12-25-2022 Lab Reports [id number] .00CD:127 Normal [facility] RAD - CT Reporton 12-25-2022 RAD - CT Report [id number]#1 .00CD:127 Normal [facility] BUNon 12-24-2022 Urea nitrogen [Mass/Vol] 40.0 mg/dL Critically high 7.0-18.0 [facility] Comment on above: Performed By: #### H H #### [facility] [address] [place] [address] [address] Lilly Cordova CREATININEon 12-24-2022 Creatinine [Mass/Vol] 2.33 mg/dL Critically high 0.70-1.30 [facility] Comment on above: Performed By: #### H H #### [facility] [address] [place], [place] [address] Dr. Lilly Cordova EGFR-AF MOROCCAN 33 mL/min/1.73m2 Critically low >=60 [facility] Comment on above: Performed By: #### H H #### [facility] [address] [place], [place] [address] Dr. Lilly Cordova EGFR-NON AF [place]AN 27 mL/min/1.73m2 Critically low >=60 [facility] Comment on above: Performed By: #### H H #### [facility] [id number] Lilly [address] ABD/PELVIS WO CONon [...] by: GUSTAVO BUSTILLO Date: 2022-12-24 10:21 Normal [facility] Operative Reporton 3 Operative Report [id number] .00CD:127 Normal [facility] Reminderson 12-10-2022 Reminders - From: Sierra Rizzo To: EU - Recalls Blanca; Cc: Sierra Rizzo; Sent: 12/10/2022 08:27:41 EDT Show up: 10/27/2023 08:27:00 EDT Subject: Cysto/fish/cytol, 1 yr Due Date/Time: 11/17/2023 08:27:00 EDT Reminder/Recall Pt is due in November 2023 for 1 year cysto/fish/cytol (bt ck) Normal [facility] UroVysion Fish and Urine Cyt o ([facility])on 12-10-2022 UVFISH & UC Diagnosis Info Invalid Interpretation Code [facility] Comment on above: Result Comment: A:Ur ine,Urine:Voided [...] on: 12/10/2022 07:51:47 Performed By: #### 1 [id number] ####[facility] [address] [place] [address] Ambulatory Visit Summaryon 0 12-03-2022 Ambulatory Visit Summary RICKI OLIVERA :1940 Visit Date:12/03/2022 Ambulatory Visit Instructions Your Diagnosis Hx of bladder cancer Your Care Team Attending Physician - Hudson BLANCA MD Primary Care Physician - TERESITA BLACKWELL DO This Is Your Medications List acetaminophen-hydroco done (Edgar 325 mg-5 mg oral tablet) acetaminophen-hydroco done (Edgar 325 mg-5 mg oral tablet) aspirin (aspirin [...] How Much When Instructions Unchanged acetaminophen-hydroco done (Edgar 325 mg-5 mg oral tablet) 1 Tablets By Mouth Every 8 hours as needed for for pain Unchanged acetaminophen-hydroco done (Edgar 325 mg-5 mg oral tablet) 1 Tablets [...] Hx of bladder cancer Hydronephrosis Hypertension Normal [facility] UroVysion Fish and Urine Cyt o ([facility])on 12-03-2022 [facility] Method of Extraction Voided Normal [facility] Comment on above: Performed By: #### 1 [id number] ####[facility] [id number] [place] [address] [facility] Number of Jars 1 Invalid Interpretation Code [facility] Comment on above: Performed By: #### 1 [id number] ####[facility] [address] [place] [address] [facility] Specimen Urine Normal [facility] Comment on above: Performed By: #### 1 [id number] ####[facility] [address] [place] [address] [facility] Type of Service Technical Only Normal [facility] Comment on above: Performed By: #### 1 [id number] ####[facility] [address] [place] [address] Consent for Procedure/Surger yon 11-26-2022 Consent for Procedure/Surgery [id number] .00CD:127 Normal [facility] Pre-Certification Formon Pre-Certification Form [id number] #1.00CD:127 Normal [facility] RAD - MISCon 11-14-2022 RAD - MISC [id number]#1 .00CD:127 Normal [facility] XR KUB 1 VIEWon 11-12-2022 XR KUB [...] by: BETZY JAMES Date: 2022-11-12 10:01 Normal [facility] Coding Summary.on 11-09-2022 Coding Summary. CD:[id number] W w+PGhlYWQ+LH8OMMClJ47 pxYDmlP8bG3BDNVbVImme ZKWWXUhILzDqddRbLH2ip XNjZXJu IC8+VD1fPKCvZvqatWJwg 4A0nCJ1X60xhb4fRPyuaF X8YNHrUwPajfrnz9robPd 6IDcuNmluOyBt TLTspW72XIN5zO98Yz33j OIauGNgn9rbcVm1GzRvWT WpIIH4vAdxQHrdd2RjZMQ bD38qmLMjr5V4 UHUauSopeMCrRdXwjZJ5w D4dSDzhlcjtm3tfytlpVb m6yo88kWVhk2E1jOZ7V8L pdxP2YBZfmZOp RolguXAGiN4xmhnys4zcj jfcUxUdMNDvYNq8SCx7HN AggVweEtZdIY45CCC9PKK fsqSgC6QlZFOd uYvjPgJ6r1N5Ri7UL0WMG aipA8DQHZQKUIyadJI+PC 50mt35D1OjIpmdIgq0ISD cTIB8hST0oY0e GMKwWLepe2H6qOJ0P8Jhz lZatf9dg2klSCTwQTevY2 3zrQDtq3G3CQRdfCD7FKN xbLehUjNluL56 Oyc+LVKfdVwnd9PpDltgp 2roj6qqwKp1FqtyIQNcki EzgHfhRPP5g7CqXl1yFEB xxJT8gBD1fE4m OjNhYeU7KFqjI056DpXdz FAjGcsjJ26cT6EokXB+PH BzWnv5ZCFgyBjfIX6jO0G hZGRpbmctbGVm aHeiJR9eDMVrzqioHRQzy J0kEJYeT0m2TcUjVbP1FP llZ4AqGGPijakqJm69cJ8 iKtWiVqC7PFma F7NkgvI7QJGsqRHyKHekF YQ2V68lf9N1YXEnVZAaAI Q9sMG0vR5yeIxoujlydLI mdDsgdmVydGlj DAuxXGxdJ380DBPsqWxjI kNvZGluZyBEYXRlOiAgMD QvMTUvMjAyMzwvdGQ+PHR zTJV1zXyfZYMi sZWtKOtzXh4ehGavnYmwY E9pWRRwufmqJRWtwJ6kSV ZgiGGgjMjwWM9tYCIphfh sx406JpNmJPN2 GJDgoAOxE2CegG6wTwLdI QEpWPJaI3ZzpQEkZBoxA8 52FTucIkT3HBRrpwVyU3K sLWFsaWduOiB0 d3H2Ej2Fp2QpxindA3Kox BJtQmAtRnxwBRg5Q2VrPn wvdHI+HB96KCKdPC98PUp 4WLF8jCduUTse VUTgD8VbkJ5cFtUaCXMuH GRkOyc+PHRhYmxlIHdpZH RoPScxMDAlJyBzdHlsZT0 jBt2dWNBxILIe uUizdAXxMuTsh3sgVZNoM BilQE5qzPgmM5SikUW1IS Gmo6o5Hq61B91fD7IxrJF +ROAisOJ9pXA1 mC3gPjKqArO0HUioG308Z jRtxKGtPbawh3ssc6trzT h4WfM7MFHsexKhzJmiTIF 7u9AuRg52C01r IHdpZHRoPSIxNSUiIHZhb Fpreo8ybX7bOi3+PGNvbC L3bFC9hA3hFlDzJyJ4XNa pJ552MfRmvEEo Ndsxa9slz7rbrZq8JoDzZ YAzxrXasYolTRQ4x4XpZr 52V1RaxRthm9ZvMid3kk4 8sCOmh9U2bCJ2 S0BvFRRoswznfLSjpXzfP L5sNEEvvbwaKFFvvL1sUY JrK6h3AgFfByL6YYmbS1D cvdX3VJKokRJf QVCdkBPInL1jxvhda0wem jmcEgKlUHJxFAu6MUw7SU UdaJxkEjEsSIT2TmW3YMS 8eUYlkL6qnNcs seegtQ2nStw+FBB9jRDcg RXNWK4mRiqjzCS+PHRkIH F4bTlcFRxmZYIqzD8yNFQ fX0t9LhVjGcI2 BPgeA5RkjsI7LJCgxMPcS TSeoWMWsX6tbzvab0bims atWfZfZCVsECm0MQu6JXF saWduOiBsZWZ0 XqS9VKT3zPKfuY4ycSngv wuolL6iYpu+QmlydGggRG M6YZq8I2NgNdl2MPTxyCx yXE4kjCEcNGrz Xq4msUzthCfjKY2kJYIse fjts659MdWua9atKNBzdL SdFYqcXSH1W87hm7G4CKV dMMWvBKZ7jBI0 bE2tnMsdcoyykDQkmYksx fWbmDsvXJqgNAcrR026FH VbeCztWrNeEDr9V0YyKjl 4LATelTyvLH7t mSWfGTnpMf2bpArpeZvnT Z4kSCPnszvcj942MtTqq6 zxKSNtvAMyAApsFGY7X08 hz9E3RPWpDNJv MYF0zSV1mS3dzEckoetqp GVmdDsgdmVydGljYWwtYW wuN978TGZkcFfwFvOywXc 2T0YeAys9DDVy jOxpGP5llPEvSBgpBc5ak VikqDeaYL4nNCVllzdgu3 63IhToy1vjPEGqzAKmAIq tXVI7N24qg7H7 ECFvVJMpIWK8eJX8wK8th GlnbjogbGVmdDsgdmVydG nbOWdoGNclV199ZRZzqJl nPlBhdGllbnQg FLhaUGj7H4OjOhtnoQU+P P84WJLcHX91mKCetJRyq1 ruhJd2CzDiFMJwJMS8nLu yWOhop5KvTIGo X81kvKJrt5Y0DNDwgLduu HNuUjDexOA7bQ2kJAosuw bop9ellsjsCkocb3yznu5 6xX52U91iVQaz ZHRoPSIzMCUiIHZhbGlnb m4rhV6sYo3+AQKbcVG5qY I1uW3hMZOaVlV1EXjcB66 9InRvcCIvPjxj a0tby9uikXh6QtG7BSZgf mQzkLqoEBL9b8JpTs18C1 9sIHdpZHRoPSIyMCUiIHZ jaSqjft9ulY6s Ii8+VPAzjUU2jQV8eL9gK vFiDjE1VOfrR735BqArmO WnEjluW71vX1NwjKD+PHR wOpt0MIZdyBxs CP1xvFSsGOfxVn5xDBM4J tJwLdTcLWgbF9OfFJNgic umbzhmrJU4LDZtWYYpbS6 3Mk9dqTfsVPVy gIIJpW3jbryxr7xisljlJ dJgRKAxOVi5XTm5EUCafN fvAvWlWTI5NzV4DSJ3rNE tcW0bsLlimljj bM4pT2BvUEZhuoktKm26u R6gBxOsIpL8HUchFli+V0 9MRkYsIEZSRUQgVzwvdGQ +JBBkGZN2fJkc IKquZVXhpX8wXUHxK2b8T yAsSoK5CBywT1ErFNMxou ytZk48mH8vRuGhRjO1UAk vB6UjrjT7OBTq aTPkVZjzMYM5H70zo9Y5A LLmIMOiGWR6uCJ0uM1ffQ lnbjogbGVmdDsgdmVydGl gNOjyAXbtU953 RYYhxKroFqN7FdJuBlJ8V AO1G2WvXbj8EHVvtZncQX 4qmFNbAXppFl4bzLhzfSe hBO8tOQGkdehn PARpfU7rMQXvqYKuwAqdG E2qSTIgztlxy916AxNiXW W1AEDudNBcH4LadC7yJtJ fQALxUURfM6Kl bUJeTCmkE652VZfrWsA0K DVctkQbB3AmJNNtqOsqDn U4z2E3Yh06ZZZEYTKavwt vdGQ+PHRkIHN0 lDvuJCgzAYBnhS0mUCYlS 4w5YiClKaE1CKyyM8QsFS UzxitkTf26iJ8mSlAnTkM 0ZShwD1CoqwX5 MIVtaSNeOMocAHH7Q18po 1O3YFIbUSDhVGG6yCY2eY 1hbGlnbjogbGVmdDsgdmV ydGljYWwtYWxp A754EROwiAnpKc0pbPE2S 9AeQka8QWUcnVtnMV8qfF TgEVouPn1hnDjacBqnBW0 wNTBpbjtwYWRk yV7aXSOawBGewLnaZU5sE IFcosans045GyQuKFH9RT RutSReU5SoeV7cAaVnAQV nBCGoR2LqeKWj PTbrI240HGaoKsU3TPDtt bLiR7XlQKOiaApcJrI0v7 S8Fb7PXTXrPIXocBGiFeR 5O5VqDiaphOA+ GA93QWUjJZ22uDAehNCee 0rlhTz4ZkBhQGEzDBT9fK cjKEcdc5QfOUPbN26ftNR tc9T2JIUqbMuy cQXrXdGaaZJ7vG9zQQyuv zrti1pflsrqDtecy7cfyc 37eC11V52oCKcnJCRaLYA zMCUiIHZhbGln yj6fzQ3aCq7+CRBhhCJ1s EN2mL2vVkXeBzN4BOimD9 72FoZeaGNpUxsbn6kaj5v boEw3RdDoGZDa fuCpiDobZPC3q3MdWt59Y 29sIHdpZHRoPSIyMCUiIH XqeJosvu5soC1fFr1+PC9 fu2rpas98kU22 dHI+LKHiHXV7xUdvZSqrZ LTkdW7zWTubCtA4BJFlXn GyfE78yLJaJRpqKf1ewHm grYyiXG1aOHKi teuhg041LrWft3oyOFIep JZdMZtlLRQ0U60dz8G3ER WsAYYbOVD8nMV5fR2peCq nbjogbGVmdDsg baVotGjgDMimQWelD624B BEgeOkvOeIoxPZxU3lbkj UKWH6hTiewwZV+PHRkIHN 0eWxlPSdwYWRk nN9aGRAuB3p2TyGaDdT4O KlgV6OgyeP6BVDgjQJaVW TwmIYFmG4lezzfx5spbgv gIzAwMDAwMDt0 YHd9RZAldGieWfAnPST8Y iG9YKC6aXEdkL6rlBmdgb aojL7nTwe+RklOOjwvdGQ +UFCyHAU8tLfe QWqjXCManG0aFZFiD2z5N jMoZyO1YYwzB3EendE4WW LlcVLpZXQcwGJRcZ2bcgv ts1wiqxwoVdRr KFPaECj2EEn4ESNjuLyqA bOsYNS3YuI5VSL8gGPdeE 7rtTllkkmkuJ3dGmz+TVJ OOjwvdGQ+PHRk LZR4bPshZYzyFVCcrP0tB KZcZ2r6BhXpZaD6GOxzM0 NoqjE9CDGikSUtZBIgsMO LjQ7pobejq3jt oftmVcScBQYiUEt8RTa1S WPddPzyImVkMMK9YpD0MA Z8sBStnU3bdEcipmtxqP2 wOyc+AIY0MEG8 VQ67MV53J7QkArlorPMuh +PHRhYmxlIHdpZHRoPS wcTLVaWnMmwPfsBI3jIb9 yZGVyLWNvbGxh cHNlOiBj (more content not included)... Normal [facility] CULTURE URINEon 11-07-2022 CULTURE URINE Isolate 1 [...] F Trimethoprim/Sulfamet hoxazole <=20 S F Normal [facility] Comment on above: Performed By: #### H H #### [facility] [address] [place] [address] Dr. Lilly Becker Urineon 11-06-2022 Bacteria identified Cx Nom (U) Microbiology PROCEDURE: Urine Culture [R1] SOURCE: U Random BODY SITE: COLLECTED DATE/TIME: 11/04/2022 15:55 EDT RECEIVED DATE/TIME: 11/04/2022 17:38 EDT START DATE/TIME: 11/04/2022 17:38 EDT FREE TEXT SOURCE: THEO CARDOSO, Hudson BLANCA MD, Hudson Silver FINAL [...] Locations R1: This test was performed at: [facility], [address] [place] [address], [facility]- , , [facility] Comment on above: Performed By: #### [id number] ####[facility] [id number] [place] [address] PTH INTACTon 11-05-2022 PTH, Intact 46 pg/mL Normal 15-65 [facility] Comment on above: Performed By: #### P THINT #### [facility] [address] [place] [address] Dr. Lilly Cordova ALBUMINon 11-04-2022 Albumin [Mass/Vol] 3.6 g/dL Normal 3.4-5.0 [facility] Comment on above: Performed By: #### B MP, PHOS, MG, ALB, URIC #### [facility] [address] [place], [place] [id number] Dr. Lilly Cordova Ambulatory Visit Summaryon 0 11-04-2022 Ambulatory Visit Summary JUAN C RICKI W :1940 Visit Date:11/04/2022 Ambulatory Visit Instructions Your Diagnosis Acute UTI Tests Performed Urnls Dip Stick Auto w/o Microscopy POC [id number] Your Care Team Attending Physician - THEO CARDOSO, Hudson Silver Primary Care Physician - TERESITA BLACKWELL DO This Is Your Medications List acetaminophen-hydroco done (Edgar 325 mg-5 mg oral tablet) acetaminophen-hydroco done (Edgar 325 mg-5 mg oral tablet) aspirin (aspirin [...] 9:00 AM EDT Where: [facility] HEMOGRAM AND PLATELon 2022 Hematocrit (Bld) [Volume fraction] 34.7 % Critically low 42.0-54.0 [facility] Comment on above: Performed By: #### H H #### [facility] [address] [place] [address] Dr. Lilly Cordova Hemoglobin (Bld) [Mass/Vol] 11.7 g/dL Critically low 14.0-18.0 [facility] Comment on above: Performed By: #### H H #### [facility] [address] [place] [address] Dr. Lilly Cordova MCH (RBC) [Entitic mass] 31.0 pg Normal 25.9-34.0 [facility] Comment on above: Performed By: #### H H #### [facility] [address] [place] [address] Dr. Lilly Cordova MCHC (RBC) [Mass/Vol] 33.7 g/dL Normal 29.9-35.2 [facility] Comment on above: Performed By: #### H H #### [facility] [address] [place] [address] Dr. Lilly Cordova MCV (RBC) [Entitic vol] 91.8 fL Normal 80.0-94.0 [facility] Comment on above: Performed By: #### H H #### [facility] [address] [place] [address] Dr. Lilly Cordova PLT 129 103/ul Critically low 150-450 [facility] Comment on above: Performed By: #### H H #### [facility] [address] [place] [address] Dr. Lilly Cordova RBC 3.78 106/ul Critically low 4.70-6.10 [facility] Comment on above: Performed By: #### H H #### [facility] [address] [place] [address] Dr. Lilly Cordova WBC 6.2 103/ul Normal 4.0-11.0 [facility] Comment on above: Performed By: #### H H #### [facility] [address] [place] [address] Dr. Lilly Cordova MAGNESIUMon 11-04-2022 Magnesium [Mass/Vol] 1.5 mg/dL Critically low 1.8-2.4 [facility] Comment on above: Performed By: #### B MP, PHOS, MG, ALB, URIC #### [facility] [address] [place] [address] Dr. Lilly Cordova MICROALB CREAT RATIO RANDOMo n 11-04-2022 mALB 13.5 mg/L Normal <=30.0 [facility] Comment on above: Performed By: #### M CRR #### [facility] [address] [place] [address] Dr. Lilly Cordova MALB CR RATIO 238.9 mg/g Critically high 0.0-29.9 [facility] Comment on above: Performed By: #### M CRR #### [facility] [address] [place] [address] Dr. Lilly Cordova MALB CR RATIO RANGE SEE BELOW Normal [facility] Comment on above: Result Comment: NO M ICROALBUMINURIA 0-29 MG/G CLINICAL MICROALBUMINURIA 30-300 MG/G MACROALBUMINURIA >300 MG/G Performed By: #### M CRR #### [facility] [address] [place] [address] Dr. Lilly Cordova URINE CREAT 56.52 mg/dL Normal 20.00-300.00 [facility] Comment on above: Performed By: #### M CRR #### [facility] [address] [place] [address] Dr. Lilly Cordova PHOSPHORUSon 11-04-2022 Phosphate [Mass/Vol] 3.0 mg/dL Normal 2.6-4.7 [facility] Comment on above: Performed By: #### B MP, PHOS, MG, ALB, URIC #### [facility] [address] [place] [address] Dr. Lilly Cordova PROF CHEM 8 (BAS METB)on Anion gap [Moles/Vol] 13.0 mmol/L Normal [facility] Comment on above: Performed By: #### B MP, PHOS, MG, ALB, URIC #### [facility] [address] [place] [address] Dr. Lilly Cordova Calcium [Mass/Vol] 9.1 mg/dL Normal 8.5-10.1 [facility] Comment on above: Performed By: #### B MP, PHOS, MG, ALB, URIC #### [facility] [address] [place] [address] Dr. Lilly Cordova Chloride [Moles/Vol] 102 mmol/L Normal 98-107 [facility] Comment on above: Performed By: #### B MP, PHOS, MG, ALB, URIC #### [facility] [address] [place] [address] Dr. Lilly Cordova CO2 [Moles/Vol] 25.0 mmol/L Normal 21.0-32.0 [facility] Comment on above: Performed By: #### B MP, PHOS, MG, ALB, URIC #### [facility] [address] [place] [address] Dr. Lilly Cordova Creatinine [Mass/Vol] 1.79 mg/dL Critically high 0.70-1.30 [facility] Comment on above: Performed By: #### B MP, PHOS, MG, ALB, URIC #### [facility] [address] [place] [address] Dr. Lilly Cordova EGFR-AF MOROCCAN 45 mL/min/1.73m2 Critically low >=60 [facility] Comment on above: Performed By: #### B MP, PHOS, MG, ALB, URIC #### [facility] [address] [place] [address] Dr. Lilly Cordova EGFR-NON AF MOROCCAN 37 mL/min/1.73m2 Critically low >=60 [facility] Comment on above: Performed By: #### B MP, PHOS, MG, ALB, URIC #### [facility] [address] [place] [address] Dr. Lilly Cordova Glucose [Mass/Vol] 106 mg/dL Normal 74-106 [facility] Comment on above: Performed By: #### B MP, PHOS, MG, ALB, URIC #### [facility] [address] [place] [address] Dr. Lilly Cordova Potassium [Moles/Vol] 5.0 mmol/L Normal 3.5-5.1 [facility] Comment on above: Performed By: #### B MP, PHOS, MG, ALB, URIC #### [facility] [address] [place] [address] Dr. Lilly Cordova Sodium [Moles/Vol] 135 mmol/L Critically low 136-145 [facility] Comment on above: Performed By: #### B MP, PHOS, MG, ALB, URIC #### [facility] [address] [place] [address] Dr. Lilly Cordova Urea nitrogen [Mass/Vol] 35.0 mg/dL Critically high 7.0-18.0 [facility] Comment on above: Performed By: #### B MP, PHOS, MG, ALB, URIC #### [facility] [address] [place] [address] Dr. Lilly Cordova Urea nitrogen/Creatinin e [Mass ratio] 19.6 mg/mg Normal [facility] Comment on above: Performed By: #### B MP, PHOS, MG, ALB, URIC #### [facility] [address] [place] [address] Dr. Lilly Cordova UA (CLEAN/CATCH) GRINDER GEAR/MICRO I F IND.on 11-04-2022 Bilirubin Ql (U) Negative Normal NEGATIVE [facility] Comment on above: Performed By: #### H H #### [facility] [address] [place] [address] Dr. Lilly Cordova Clarity (U) CLEAR Normal CLEAR [facility] Comment on above: Performed By: #### H H #### [facility] [address] [place] [address] Dr. Lilly Cordova Color (U) LT. YELLOW Normal YELLOW [facility] Comment on above: Performed By: #### H H #### [facility] [address] [place] [address] Dr. Lilly Cordova Glucose Ql (U) Negative Normal NEGATIVE [facility] Comment on above: Performed By: #### H H #### [facility] [address] [place] [address] Dr. Lilly Cordova Hemoglobin Ql (U) MODERATE Abnormal NEGATIVE [facility] Comment on above: Performed By: #### H H #### [facility] [address] [place] [address] Dr. Lilly Cordova Ketones Ql (U) Negative Normal NEGATIVE [facility] Comment on above: Performed By: #### H H #### [facility] [address] [place] [address] Dr. Lilly Cordova LEUKOCYTES MODERATE Abnormal NEGATIVE [facility] Comment on above: Performed By: #### H H #### [facility] [address] [place] [address] Dr. Lilly Cordova Nitrite Ql (U) Positive Abnormal NEGATIVE [facility] Comment on above: Performed By: #### H H #### [facility] [address] [place] [address] Dr. Lilly Cordova pH (U) 7.5 [pH] Normal 5-9 [facility] Comment on above: Performed By: #### H H #### [facility] [address] [place] [address] Dr. Lilly Cordova SPEC GRAVITY 1.010 Normal 1.005-<=1.025 [facility] Comment on above: Performed By: #### H H #### [facility] [address] [place] [address] Dr. Lilly Cordova UA PROTEIN 30 mg/dl Abnormal NEGATIVE/ TRACE [facility] Comment on above: Performed By: #### H H #### [facility] [address] [place] [address] Dr. Lilly Cordova UR MICRO IND INDICATED Normal [facility] Comment on above: Performed By: #### H H #### [facility] [address] [place] [address] Dr. Lilly Cordova Urobilinogen Qn (U) 0.2 {Raffi'U}/dL Normal 0.2 - 1.0 [facility] Comment on above: Performed By: #### H H #### [facility] [address] [place] [address] Dr. Lilly Cordova URIC ACID SERUMon 11-04-2022 Urate [Mass/Vol] 5.2 mg/dL Normal 3.5-7.2 [facility] Comment on above: Performed By: #### B MP, PHOS, MG, ALB, URIC #### [facility] [address] [place] [address] Dr. Lilly Cordova URINE MICROSCOPIC ONLYon BACTERIA TRACE Abnormal NONE SEEN [facility] Comment on above: Performed By: #### H H #### [facility] [address] [place] [address] Dr. Lilly Cordova Bacteria identified Cx Nom (U) INDICATED Normal [facility] Comment on above: Performed By: #### H H #### [facility] [address] [place] [address] Dr. Lilly Cordova CAST NONE SEEN Normal NONE SEEN [facility] Comment on above: Performed By: #### H H #### [facility] [address] [place] [address] Dr. Lilly Cordova Crystals LM Nom (Urine sed) NONE SEEN Normal NONE SEEN [facility] Comment on above: Performed By: #### H H #### [facility] [address] [place] [address] Dr. Lilly Cordova Epithelial cells LM Ql (Urine sed) NONE SEEN Normal NONE SEEN /RARE [facility] Comment on above: Performed By: #### H H #### [facility] [address] [place] [address] Dr. Lilly Cordova MUCOUS NONE SEEN Normal NONE SEEN [facility] Comment on above: Performed By: #### H H #### [facility] [address] [place] [address] Dr. Lilly Cordova RBC 2-5 Abnormal 0-2 [facility] Comment on above: Performed By: #### H H #### [facility] [address] [place] [address] Dr. Lilly Cordova WBC 10-20 Abnormal NONE SEEN [facility] Comment on above: Performed By: #### H H #### [facility] [address] [place] [address] Dr. Lilly Cordova VITAMIN D 25 OHon 11-04-2022 VIT D 25-OH 58.3 ng/mL Normal [facility] Comment on above: Performed By: #### H H #### [facility] [address] [place] [address] Dr. Lilly Cordova VIT D RANGES SEE BELOW Normal [facility] Comment on above: Result Comment: <20 ng/mL Vit D deficient 20 - <30 ng/mL Vit D insufficient 30 - 100 ng/mL Vit D sufficient >100 ng/mL Potential Toxicity Performed By: #### H H #### [facility] [address] [place] [address] Dr. Lilly Cordova IR nephrostomy tube chg UNon 10-14-2022 IR nephrostomy tube chg UN [facility] [place] [address] Interventional Radiology Rpt Signed Patient: Arian Olivera MR#: [id number] : 1940 Acct:[id number] Age/Sex: 82 / M ADM Date: 10/14/22 Loc: IR Room: Type: [facility] Attending Dr: Declan Moreira DO Copies to: [...] Declan Moreira M.D.10/15/2022 1:34 PM Dictation Location: [place] [address] Transcribed By: [facility] 10/15/22 1334 Dictated By: Declan Moreira DO 10/14/22 1345 Signed By: 10/15/22 1334 Normal [facility] HEMOGLOBINon 07-10-2022 Hemoglobin (Bld) [Mass/Vol] 11.6 g/dL Critically low 14.0-18.0 [facility] Comment on above: Performed By: #### H GB #### [facility] [address] [place] [address] Dr. Lilly Cordova NM STRESS/REST MULTIon 06-03 NM STRESS/REST MULTI Patient: ARIAN OLIVERA. Exam Date: 06/03/2022 : 1940 Gender:M Ordering : [facility] Admission #: [id number] Family : Order #: [id number] CLICK HERE TO VIEW EXAM RADIOLOGY REPORT [...] Gonsalez MD on 06/04/2022 at 07:50 Normal [facility] PROF CHEM 8 (BAS METB)on Anion gap [Moles/Vol] 11.2 mmol/L Normal [facility] Comment on above: Performed By: #### H H #### [facility] [address] [address] [address] Lilly Cordova Calcium [Mass/Vol] 8.8 mg/dL Normal 8.5-10.1 [facility] Comment on above: Performed By: #### H H #### [facility] [address] [address] [address] Lilly Cordova Chloride [Moles/Vol] 103 mmol/L Normal 98-107 [facility] Comment on above: Performed By: #### H H #### [facility] [address] [address] [address] Lilly Cordova CO2 [Moles/Vol] 25.2 mmol/L Normal 21.0-32.0 [facility] Comment on above: Performed By: #### H H #### [facility] [address] [address] [address] Lilly Cordova Creatinine [Mass/Vol] 1.87 mg/dL Critically high 0.70-1.30 [facility] Comment on above: Performed By: #### H H #### [facility] [address] [address] [address] Lilly Cordova EGFR-AF MOROCCAN 42 mL/min/1.73m2 Critically low >=60 [facility] Comment on above: Performed By: #### H H #### [facility] [address] [address] [address] Lilly Cordova EGFR-NON AF MOROCCAN 35 mL/min/1.73m2 Critically low >=60 [facility] Comment on above: Performed By: #### H H #### [facility] [address] [address] [address] Lilly Cordova Glucose [Mass/Vol] 126 mg/dL Critically high 74-106 [facility] Comment on above: Performed By: #### H H #### [facility] [address] [address] [address] Lilly Cordova Potassium [Moles/Vol] 4.4 mmol/L Normal 3.5-5.1 [facility] Comment on above: Performed By: #### H H #### [facility] [address] [address] [address] Lilly Cordova Sodium [Moles/Vol] 135 mmol/L Critically low 136-145 [facility] Comment on above: Performed By: #### H H #### [facility] [address] [address] [address] Lilly Cordova Urea nitrogen [Mass/Vol] 32.0 mg/dL Critically high 7.0-18.0 [facility] Comment on above: Performed By: #### H H #### [facility] [address] [address] [address] Lilly Cordova Urea nitrogen/Creatinin e [Mass ratio] 17.1 mg/mg Normal [facility] Comment on above: Performed By: #### H H #### [facility] [address] [address] [address] Lilly Cordova PTH INTACTon 05-07-2022 PTH, Intact 28 pg/mL Normal 15-65 [facility] Comment on above: Performed By: #### P THINT #### [facility] [address] [place] [address] Dr. Lilly Cordova HEMOGRAM AND PLATELon 2021 Hematocrit (Bld) [Volume fraction] 34.2 % Critically low 42.0-54.0 [facility] Comment on above: Performed By: #### H H #### [facility] [address] [address] [address] Lilly Cordova Hemoglobin (Bld) [Mass/Vol] 11.5 g/dL Critically low 14.0-18.0 [facility] Comment on above: Performed By: #### H H #### [facility] [address] [address] [address] Lilly Cordova MCH (RBC) [Entitic mass] 31.3 pg Normal 25.9-34.0 [facility] Comment on above: Performed By: #### H H #### [facility] [address] [address] [address] Lilly Cordova MCHC (RBC) [Mass/Vol] 33.6 g/dL Normal 29.9-35.2 [facility] Comment on above: Performed By: #### H H #### [facility] [address] [address] [address] Lilly Cordova MCV (RBC) [Entitic vol] 93.2 fL Normal 80.0-94.0 [facility] Comment on above: Performed By: #### H H #### [facility] [address] [address] [address] Lilly Cordova PLT 130 103/ul Critically low 150-450 [facility] Comment on above: Performed By: #### H H #### [facility] [address] [place] [address] Dr. Lilly Cordova RBC 3.67 106/ul Critically low 4.70-6.10 [facility] Comment on above: Performed By: #### H H #### [facility] [address] [place] [address] Dr. Lilly Cordova WBC 6.5 103/ul Normal 4.0-11.0 [facility] Comment on above: Performed By: #### H H #### [facility] [address] [place] [address] Dr. Lilly Cordova MAGNESIUMon 05-06-2022 Magnesium [Mass/Vol] 1.4 mg/dL Critically low 1.8-2.4 [facility] Comment on above: Performed By: #### P THINT #### [facility] [address] [place] [address] Dr. Lilly Cordova PHOSPHORUSon 05-06-2022 Phosphate [Mass/Vol] 3.0 mg/dL Normal 2.6-4.7 [facility] Comment on above: Performed By: #### P THINT #### [facility] [address] [place] [address] Dr. Lilly Cordova PROF CHEM 8 (BAS METB)on Anion gap [Moles/Vol] 10.5 mmol/L Normal [facility] Comment on above: Performed By: #### P THINT #### [facility] [address] [place] [address] Dr. Lilly Cordova Calcium [Mass/Vol] 9.1 mg/dL Normal 8.5-10.1 [facility] Comment on above: Performed By: #### P THINT #### [facility] [address] [place] [address] Dr. Lilly Cordova Chloride [Moles/Vol] 103 mmol/L Normal 98-107 [facility] Comment on above: Performed By: #### P THINT #### [facility] [address] [place] [address] Dr. Lilly Cordova CO2 [Moles/Vol] 27.9 mmol/L Normal 21.0-32.0 [facility] Comment on above: Performed By: #### P THINT #### [facility] [address] [address] [address] Lilly Cordova Creatinine [Mass/Vol] 1.77 mg/dL Critically high 0.70-1.30 [facility] Comment on above: Performed By: #### P THINT #### [facility] [address] [place] [address] Dr. Lilly Cordova EGFR-AF MOROCCAN 45 mL/min/1.73m2 Critically low >=60 [facility] Comment on above: Performed By: #### P THINT #### [facility] [address] [place] [address] Dr. Lilly Cordova EGFR-NON AF MOROCCAN 37 mL/min/1.73m2 Critically low >=60 [facility] Comment on above: Performed By: #### P THINT #### [facility] [address] [place] [address] Dr. Lilly Cordova Glucose [Mass/Vol] 98 mg/dL Normal 74-106 [facility] Comment on above: Performed By: #### P THINT #### [facility] [address] [place] [address] Dr. Lilly Cordova Potassium [Moles/Vol] 5.4 mmol/L Critically high 3.5-5.1 [facility] Comment on above: Performed By: #### P THINT #### [facility] [address] [place] [address] Dr. Lilly Cordova Sodium [Moles/Vol] 136 mmol/L Normal 136-145 [facility] Comment on above: Performed By: #### P THINT #### [facility] [address] [place] [address] Dr. Lilly Cordova Urea nitrogen [Mass/Vol] 30.0 mg/dL Critically high 7.0-18.0 [facility] Comment on above: Performed By: #### P THINT #### [facility] [address] [place] [address] Dr. Lilly Cordova Urea nitrogen/Creatinin e [Mass ratio] 16.9 mg/mg Normal [facility] Comment on above: Performed By: #### P THINT #### [facility] [address] [place] [address] [address] Lilly Cordova URIC ACID SERUMon 05-06-2022 Urate [Mass/Vol] 5.2 mg/dL Normal 3.5-7.2 [facility] Comment on above: Performed By: #### P THINT #### [facility] [address] [place] [address] Dr. Lilly Cordova VITAMIN D 25 OHon 05-06-2022 VIT D 25-OH 56.4 ng/mL Normal [facility] Comment on above: Performed By: #### V ITAD #### [facility] [address] [place] [address] Dr. Lilly Cordova VIT D RANGES SEE BELOW Normal [facility] Comment on above: Result Comment: <20 ng/mL Vit D deficient 20 - <30 ng/mL Vit D insufficient 30 - 100 ng/mL Vit D sufficient >100 ng/mL Potential Toxicity Performed By: #### V ITAD #### [facility] [address] [place] [address] Dr. Lilly Cordova ECHOCARDIO M/2D COMPLETEon 0 04-16-2022 ECHOCARDIO M/2D COMPLETE Patient: ARIAN OLIVERA Exam Date: 04/16/2022 : 1940 Gender:M Ordering : OLEKSANDR CROSS Admission #: [id number] Family : DR BENSON MANCINI D.O. Order #: [id number] CLICK HERE TO VIEW EXAM ECHOCARDIOGRAM REPORT [...] 41.16 ml, 41.16 ml Dictated by: Emanuel Joshi M.D. on 04/18/2022 at 16:05 Approved by: Emanuel Joshi M.D. on 04/18/2022 at 16:09 [facility] Vital Signs Date Time Vital Sign Value Performing Clinician Facility 08-05-2023 05:03-0500 Diastolic blood pressure 77 mm[Hg] DO Benson Ball Work Phone: [facility] 08-05-2023 05:03-0500 Heart rate 97 /min DO Benson Ball Work Phone: [facility] 08-05-2023 05:03-0500 Respiratory rate 18 /min DO Benson Ball Work Phone: [facility] 08-05-2023 05:03-0500 SaO2% (BldA) [Mass fraction] 99 % DO Benson Ball Work Phone: [facility] 08-05-2023 05:03-0500 Systolic blood pressure 173 mm[Hg] DO Benson Ball Work Phone: [facility] 08-05-2023 00:36-0500 Body height 182.88 cm DO Benson Ball Work Phone: [facility] 08-05-2023 00:36-0500 Body temperature 97.5 [degF] DO Benson Ball Work Phone: [facility] 08-05-2023 00:36-0500 Body weight 80.9 kg DO Benson Ball Work Phone: [facility] 07-29-2023 10:30-0500 Body height 177.8 cm Benson Ball Other [employer] Other 07-29-2023 10:30-0500 Body mass index (BMI) [Ratio] 25.57 kg/m2 Benson Ball Other [employer] Other 07-29-2023 10:30-0500 Body weight 80.83 kg Benson Ball Other [employer] Other 07-29-2023 10:30-0500 Diastolic blood pressure 73 mm[Hg] Benson Ball Other [employer] Other 07-29-2023 10:30-0500 Respiratory rate 12 /min Benson Ball Other [employer] Other 07-29-2023 10:30-0500 Systolic blood pressure 191 mm[Hg] Benson Ball Other [employer] Other 04-25-2023 11:30-0400 Body height 177.8 cm Benson Ball Other [employer] Other 04-25-2023 11:30-0400 Body mass index (BMI) [Ratio] 25.42 kg/m2 Benson Ball Other [employer] Other 04-25-2023 11:30-0400 Body weight 80.38 kg Benson Ball Other [employer] Other 04-25-2023 11:30-0400 Diastolic blood pressure 80 mm[Hg] Benson Ball Other [employer] Other 04-25-2023 11:30-0400 Respiratory rate 12 /min Benson Ball Other [employer] Other 04-25-2023 11:30-0400 Systolic blood pressure 150 mm[Hg] Benson Ball Other [employer] Other 01-23-2023 11:00-0400 Body height 177.8 cm Benson Ball Other [employer] Other 01-23-2023 11:00-0400 Body mass index (BMI) [Ratio] 25.57 kg/m2 Benson Ball Other [employer] Other 01-23-2023 11:00-0400 Body weight 80.83 kg Benson Ball Other [employer] Other 01-23-2023 11:00-0400 Diastolic blood pressure 57 mm[Hg] Benson Ball Other [employer] Other 01-23-2023 11:00-0400 Respiratory rate 12 /min Benson Ball Other [employer] Other 01-23-2023 11:00-0400 Systolic blood pressure 146 mm[Hg] Benson Ball Other [employer] Other 10-23-2022 12:00-0400 Body height 177.8 cm Benson Ball Other [employer] Other 10-23-2022 12:00-0400 Body mass index (BMI) [Ratio] 25.82 kg/m2 Benson Ball Other [employer] Other 10-23-2022 12:00-0400 Body weight 81.65 kg Benson Ball Other [employer] Other 10-23-2022 12:00-0400 Diastolic blood pressure 72 mm[Hg] Benson Ball Other [facility] [employer] Other 10-23-2022 12:00-0400 Respiratory rate 12 /min Benson Ball Other [facility] [facility] [employer] Other 10-23-2022 12:00-0400 Systolic blood pressure 158 mm[Hg] Benson Ball Other [facility] [employer] Other 07-03-2022 11:14-0500 Body weight 0 kg DO Benson Ball Work Phone: [facility] 03-26-2022 15:15-0400 Body weight 0 kg DO Benson Ball Work Phone: [facility] 12-19-2021 10:04-0400 Body weight 0 kg DO Benson Ball Work Phone: [facility] Encounters Encounter Date Encounter Type Care Provider Facility Start: 10-07-2023 End: 10-07-20[address] ambulatory RAJENDRA NUÑEZ [facility] Start: 08-15-2023 End: 08-15-2023 Emergency department patient visit LANEY DOWLING [facility] Start: 08-05-2023 End: 08-05-2023 ambulatory Benson Mancini Other [facility] [employer] Other Start: 08-05-2023 Telephone encounter Benson FRAZIER [facility] Start: 08-05-2023 End: 08-05-2023 Emergency department patient visit Benson Mancini Facility:[facility] Start: 08-05-2023 End: 08-05-2023 Emergency department patient visit DO Benson Ball Work Phone: [facility] Work Phone: Start: 08-01-2023 End: 08-01-2023 ambulatory Benson Mancini Other [facility] [employer] Other Start: 08-01-2023 Telephone encounter Benson FRAZIER [facility] Start: 07-29-2023 End: 07-29-2023 ambulatory Benson Mancini Other [employer] Other Start: 07-29-2023 Patient encounter procedure Benson Mancini [facility] Start: 07-29-2023 Telephone encounter Benson FRAZIER [facility] Start: 07-25-2023 End: 07-25-2023 ambulatory Hudson Blanca Facility:[facility] Start: 07-25-2023 End: 07-25-2023 Admission to same day surgery center DO Benson Mancini Work Phone: [facility] Work Phone: Start: 07-25-2023 End: 07-25-2023 ambulatory DO Benson Mancini Work Phone: [facility] Work Phone: Start: 05-28-2023 End: 05-28-2023 ambulatory Benson Manicni Other [employer] Other Start: 05-28-2023 Telephone encounter [facility] Start: 04-25-2023 End: 04-25-2023 ambulatory Benson Mancini Other [employer] Other Start: 04-25-2023 Office outpatient vi sit 25 minutes Benson Mancini [facility] Start: 04-22-2023 End: 04-22-2023 ambulatory Benson Mancini Facility:[facility] Start: 03-28-2023 End: 03-28-2023 ambulatory Benson Mancini Other [employer] Other Start: 03-28-2023 Telephone encounter Benson FRAZIER [facility] Start: 03-11-2023 End: 03-11-[address]JENDRA NUÑEZ [facility] Start: 02-11-2023 End: 02-11-2023 ambulatory Benson Mancini Other [employer] Other Start: 02-11-2023 Telephone encounter Benson FRAZIER [facility] Start: 01-29-2023 End: 01-29-2023 ambulatory Benson Mancini Other [employer] Other Start: 01-29-2023 Telephone encounter Benson FRAZIER [facility] Start: 01-23-2023 End: 01-23-2023 ambulatory Benson Mancini Other [employer] Other Start: 01-23-2023 Office outpatient vi sit 25 minutes Benson BEGUM [facility] Start: 01-22-2023 End: 01-22-2023 ambulatory EDGAR [facility] Start: 01-21-2023 End: 01-21-2023 ambulatory Hudson Blanca Facility:[facility] Start: 01-21-2023 End: 01-21-2023 Admission to same day surgery center DO Benson Mancini Work Phone: [facility] Work Phone: Start: 01-21-2023 End: 01-21-2023 ambulatory DO Benson Mancini Work Phone: [facility] Work Phone: Start: 01-13-2023 End: 01-13-2023 ambulatory Benson Mancini Other [employer] Other Start: 01-13-2023 Telephone encounter [facility] Start: 12-25-2022 End: 12-25-2022 ambulatory Benson Mancini Other [employer] Other Start: 12-25-2022 Telephone encounter [facility] Start: 12-24-2022 Telephone encounter Benson [facility] Start: 12-24-2022 End: 12-25-[address] HUDSON BLANCA . [facility] [employer] Other Start: 12-09-2022 Telephone encounter Benson Mancini [facility] Start: 12-09-2022 End: 12-10-[address] HUDSON BLANCA . [facility] [employer] Other Start: 12-05-2022 End: 12-05-2022 ambulatory Benson Mancini Other [employer] Other Start: 12-05-2022 Telephone encounter Benson FRAZIER [facility] Start: 12-03-2022 End: 12-04-2022 ambulatory Hudson BLANCA Facility:[facility] Start: 12-03-2022 End: 12-03-2022 Patient encounter procedure Hudson BLANCA [facility] Start: 11-12-2022 End: 11-13-[address] BENSON MANCINI Facility: Start: 11-06-2022 End: 11-06-2022 ambulatory Benson Mancini Other [employer] Other Start: 11-06-2022 Telephone encounter Benson FRAZIER G [facility] Start: 11-04-2022 End: 11-04-2022 Lab Drop off Hudson BLANCA [facility] Start: 11-04-2022 End: 11-05-[address] DOCTOR BURTON [facility] [employer] Other Start: 11-04-2022 Telephone encounter Benson FRAZIER [facility] Start: 11-04-2022 End: 11-04-2022 Patient encounter procedure Hudson BLANCA [facility] Start: 10-31-2022 End: 11-01-[address] BENSON MANCINI Facility:[facility] Start: 10-24-2022 Telephone encounter Benson FRAZIER [facility] Start: 10-24-2022 End: 10-25-[address] BENSON MANCINI [facility] [employer] Other Start: 10-23-2022 End: 10-23-2022 ambulatory Benson Mancini Other [facility] [employer] Other Start: 10-23-2022 Office outpatient vi sit 25 minutes Benson Mancini [facility] Start: 10-21-2022 End: 10-21-2022 Lab Drop off Hudson Silver THEO [facility] Start: 10-21-2022 End: 10-21-2022 Patient encounter procedure XXXX NONE [facility] Start: 10-14-2022 End: 10-14-2022 ambulatory Benson Mancini Facility:[facility] Start: 10-14-2022 End: 10-14-2022 Admission to same day surgery center DO Benson Mancini Work Phone: [facility] Work Phone: Start: 10-14-2022 End: 10-14-2022 ambulatory DO Benson Mancini Work Phone: [facility] Work Phone: Start: 07-23-2022 End: 07-23-2022 Admission to same day surgery center DO Benson Mancini Work Phone: [facility] Work Phone: Start: 07-10-2022 End: 07-11-[address] EMANUEL JOSHI Facility:[facility] Start: 06-19-2022 End: 06-19-2022 Lab Drop off CHARLENE BAILON [facility] Start: 06-19-2022 End: 06-19-2022 Patient encounter procedure Farideh Gong [facility] Start: 06-03-2022 End: 06-04-[address] KANNAN GONSALEZ Facility:[facility] Start: 05-14-2022 End: 05-15-[address] GAETANO FIELD Facility:[facility] Start: 05-06-2022 End: 05-07-[address] BENSON MANCINI Facility:[facility] Start: 04-29-2022 End: 04-29-[address] BENSON MANCINI Facility:[facility] Start: 04-26-2022 End: 04-26-2022 Patient encounter procedure Hudson BLANCA [facility] Start: 04-16-2022 End: 04-17-[address] BENSON MANCINI Facility:[facility] Start: 04-08-2022 End: 04-08-2022 Patient encounter procedure Hudson BLANCA [facility] Start: 04-05-2022 End: 04-05-2022 Admission to same day surgery center DO Benson Mancini Work Phone: [facility] Start: 01-02-2022 End: 01-02-2022 Admission to same day surgery center DO Benson Mancini Work Phone: [facility] Start: 11-21-2021 End: 11-21-2021 Patient encounter procedure Farideh MeyerJosefina Gong [facility] Start: 11-02-2021 End: 11-02-2021 Patient encounter procedure Hudson BLANCA [facility] Start: 10-22-2021 Adult health examination Benson Mancini Other [employer] Other Start: 09-27-2020 End: 10-12-2020 Patient encounter procedure RICHIE WALTON Facility:[facility] Procedures Date Procedure Procedure Detail Performing Clinician [...] Start: 04-05-2022 Maintenance of tube DO Benson Ball Work Phone: Start: 01-02-2022 Replacement of nephr ostomy tube DO Benson Ball Work Phone: Start: 01-02-2022 Maintenance of tube DO Benson Ball Work Phone: Start: 12-10-2018 Mitomycin (product) Marta BLANCA Comment on above: 12/10/2018, 01/11/2019 Start: 12-01-2017 Fluoroscopy guided r ight nephrostomy Hudson BLANCA Start: 12-26-2016 Coronary artery bypa ss grafts x 4 Hudson BLANCA Start: 06-16-2014 Lithotripsy Hudson ESCOBEDO Comment on above: RT ESWL * 06/16/2014 , 07/11/2016 Start: 06-01-2009 Replacement of stent Alexander BLANCA Comment on above: 06/01/2009* cysto, st [...] BLANCA Comment on above: 08/25/2008, 12/16/13, 12/16/13, 12/10/18 Start: 08-25-2008 Transurethral resect ion of bladder [...] Activity Detail Author Start: 10-14-[address] [facility] Patient referral [facility] Work Phone: Immunizations Immunization Date Immunization Notes Care Provider Leanna matamoros 04-25-2023 influenza, high dose seasonal, preservative-free Benson Mancini Other [employer] Other 04-24-2022 influenza virus vaccine, split virus (incl. purified surface antigen) Benson Mancini Other [employer] Other 04-25-2021 influenza virus vaccine, split virus (incl. purified surface antigen) Benson Mancini Other [employer] Other 09-28-2020 COVID-19 Vaccine Moderna - Documentation Purposes Only Benson Mancini Other [employer] Other 05-17-2020 influenza virus vaccine, split virus (incl. purified surface antigen) Benson Mancini Other [employer] Other 05-19-2019 influenza virus vaccine, split virus (incl. purified surface antigen) Benson Mancini Other [employer] Other 05-01-2018 influenza virus vaccine, split virus (incl. purified surface antigen) Benson Mancini Other [employer] Other 05-01-2018 tetanus toxoid, redu maria de jesus diphtheria toxoid, and acellular pertussis vaccine, adsorbed Benson Mancini Other [employer] Other 05-14-2017 influenza virus vaccine, split virus (incl. purified surface antigen) Benson Mancini Other [employer] Other 05-01-2016 pneumococcal conjuga te vaccine, 13 valent Benson Mancini Other [employer] Other 02-11-2007 pneumococcal polysaccharide vaccine, 23 valent Benson Mancini Other [employer] Other Payers Date Payer Category Payer Self-pay [id number] Private Health Insurance [id number] 1940 Unknown [id number] [id number]7 1940 Unknown [id number] 2.16.840.1.758654.3.579.2.593 1940 Unknown [id number] 2.16.840.1.805600.3.579.2.593 1940 Unknown [id number] 2.16.840.1.032841.3.579.2.593 1940 Unknown [id number] 2.16.840.1.229498.3.579.2.593 1942 Unknown [id number] 2.16.840.1.747672.3.579.2.593 1940 Unknown [id number] 2.16.840.1.545955.3.579.2.593 1940 Unknown [id number] 2.16.840.1.383225.3.579.2.593 1940 Unknown [id number] 2.16.840.1.670759.3.579.2.593 1942 Unknown [id number] 2.16.840.1.558579.3.579.2.593 1942 Unknown [id number] 2.16.840.1.918594.3.579.2.593 1940 Unknown [id number] 2.16.840.1.794905.3.579.2.593 1942 Unknown [id number] 2.16.840.1.377616.3.579.2.593 1942 Unknown [id number] 2.16.840.1.466446.3.579.2.593 1940 Unknown [id number] 2.16.840.1.435533.3.579.2.593 1942 Unknown [id number] 2.16.840.1.833957.3.579.2.727 1940 Unknown [id number] 2.16.840.1.952409.3.579.2.727 1940 Unknown [id number] 2.16.840.1.419703.3.579.2.727 1940 Unknown [id number] 2.16.840.1.197140.3.579.2.727 Medicare Medicare Outpatient [id number] Private Health Insurance [id number] [id number] Private Health Insurance [employer] [id number] Unknown [id number] 2.16.840.1.751717.3.579.2.531 Unknown [id number] 2.16.840.1.136039.3.579.2.531 Unknown [id number] 2.16.840.1.151596.3.579.2.531 Unknown [id number] 2.16.840.1.384975.3.579.2.531 Unknown [id number] 2.16.840.1.842937.3.579.2.531 Social History Date Type Detail Facility Tobacco smoking status [facility] Sex Assigned At Male [facility] Start: 12-30-2017 End: 04-29-2023 Tobacco smoking status NHIS Never smoked tobacco (finding) [facility] Start: 1940 Sex Assigned At Male F [facility] Tobacco smoking status No Smokin g Status Entered [facility] Tobacco smoking status No Smokin g Status Entered [facility] Start: 08-05-2023 Tobacco smoking stat us NHIS Ex-smoker (finding) [facility] Clinical Notes 11-02-2021 to 10-07-2023 Note Date & Type Note Facility 10-07-2023 Note [place] Electrophysiology Consult Note Reason for visit: CMP 10/07/23 Patient here for 6 mo follow up PAF, bradycardia, and HFrEF. He was seen in [facility] ED in Jul 2023 for his nephrostomy tube. Did have carotid US. Denies chest pain, SOB, palpitations, lightheadedness/syncope, and major bleeding on Eliquis. Does get very mild epistaxis sometimes. He does keep track of his BP at home, but checks it before medications. he is not currently on any beta-blockers but takes lisinopril 5 mg once daily along with Imdur 30 mg daily as well as aspirin and Eliquis 2.5 twice daily. His BP readings are in 160's. Prior HPI: Arian Olivera is a 83 y.o. year old with a past history [...] lower extremity edema. An event monitor per / for 30 days, he did have noted [...] (CMS/HCC) Carotid stenosis CHF (congestive heart failure) ([facility] Coronary artery disease Hypertension Kidney problem Myocardial infarction ([facility]) PSH: Past Surgical History: Procedure Laterality Date CORONARY ARTERY BYPASS GRAFT 02/05/2017 CT HEART CORONARY ANGIOGRAM 02/03/2017 CT HEART CORONARY ANGIOGRAM PARIKH CONVERSION [...] Connections: Not on file Intimate Partner Violence: Unknown (09/18/2023) [place] Safety & Environment Fear of Current or Ex-Partner: Not on file Emotionally Abused: Not on file Physically Abused: Not on file Sexually Abused: Not on file Physically or Sexually Abused: Not on file Depression: Not on file Housing Stability: Not on file Utilities: Not on file Allergies: Allergies Allergen Reactions Requip [Ropinirole] Tramadol Unknown Weight: 78.5kg Visit Vitals BP 166/76 (BP Location: Left arm, Patient Position: Sitting) Pulse 59 Ht 1.829 m (6') Wt 78.5 kg (173 lb) SpO2 96% BMI 23.46 kg/m??? Smoking Status Former BSA 2 m??? [...] and at bedtime. 60 tablet 11 HYDROcodone-acetaminophen (Edgar) 5-325 mg tablet 1 tablet as needed isosorbide mononitrate ER (Imdur) 30 mg 24 hr tablet Take 1 tablet (30 mg) by mouth in the morning. 90 tablet 3 lisinopril 5 mg tablet Take 5 mg by mouth in the morning. magnesium oxide (Mag-Ox) 400 mg (241.3 mg magnesium) tablet 1 (one) time each day at the same time. spironolactone (Aldactone) 25 mg tablet TAKE 1 TABLET BY MOUTH ONCE DAILY DIRECTED 90 tablet 3 carvedilol (Coreg) 12.5 mg tablet Take 1 tablet (12.5 mg) by mouth with breakfast and with evening meal. (Patient not taking: Reported on 10/07/2023) 180 tablet 3 No current facility-administered medications on file prior to visit. ROS: Review of Systems HENT: Positive for nosebleeds (very mild). Musculoskeletal: Positive for back pain. All other systems reviewed and are negative. Physical Exam: Constitutional General Appearance: well-nourished, well-developed, appears stated age Level of Distress: comfortable Psychiatric Mental Status: alert, normal affect Orientation: oriented (more content not included)... [facility] 08-05-2023 Evaluation note Encounter Date Diagnosis Assessment Notes Jul, Lumbar spondylosis (ICD-10 - M47.816) [employer] Other 01-02-2024 Evaluation note* Encounter Date Diagnosis [...] are maintaining regular scheduled appts with their manager lean. No bleeding complications Jul, Essential hypertension (ICD-10 [...] needed. Hydrocodone as needed for severe pain [employer] Other 11-01-2023 Evaluation note* Encounter Date Diagnosis Assessment Notes Treatment Notes Treatment Clinical Notes May, Lumbar spondylosis (ICD-10 - M47.816) [employer] Other 09-29-2023 Evaluation note* Encounter Date Diagnosis [...] are maintaining regular scheduled appts with their manager lean. Mar, Essential hypertension (ICD-10 - I10) This [...] They may safely use Tylenol as needed. [employer] Other 09-01-2023 Evaluation note* Encounter Date Diagnosis Assessment Notes Treatment Notes Treatment Clinical Notes Mar, Lumbar spondylosis (ICD-10 - M47.816) [employer] Other 08-15-2023 NoteUT Electrophysiology Consult Note Reason [...] lower extremity edema. An event monitor per / for 30 days, he did have noted [...] Diagnosis Date Allergies Arthritis Bladder problem Cancer ([facility]/HCC) Carotid stenosis CHF (congestive heart failure) ([facility]) Coronary artery disease Hypertension Kidney problem Myocardial infarction ([facility]) PSH: Past Surgical History: Procedure Laterality Date [...] and at bedtime. 60 tablet 11 HYDROcodone-acetaminophen (Edgar) 5-325 mg tablet 1 tablet as needed [...] edema, no peripheral (more content not included)... [facility]20[facility] Evaluation note* Encounter Date Diagnosis Assessment Notes Treatment Notes Treatment Clinical Notes Jan, Lumbar spondylosis (ICD-10 - M47.816) [employer] Other 06-29-2023 Evaluation note* Encounter Date Diagnosis [...] are maintaining regular scheduled appts with their manager lean. Discussed need for AC to prevent thromboembolic [...] surveillance CT Denies CP, dyspnea or hemoptysis [employer] Other 06-28-2023 NoteReview of Systems All other systems reviewed and are negative.[facility] 01-22-2023 NoteUT Electrophysiology Consult Note Reason for visit: bradycardia HPI: Arian Olivera is a 82 y.o. year old for EP clinic for bradycardia takes Coreg 12.5 mg twice daily An event monitor per PCP/ for 30 [...] with second-degree AV block, asymptomatic Per dr. Joshi 06/2022 HPI: Arian Olivera is a 82 [...] Diagnosis Date Allergies Arthritis Bladder problem Cancer ([facility]) Carotid stenosis CHF (congestive heart failure) ([facility]) Coronary artery disease Hypertension Kidney problem Myocardial infarction ([facility]) PSH: Past Surgical History: Procedure Laterality Date [...] and at bedtime. 60 tablet 11 HYDROcodone-acetaminophen (Edgar) 5-325 mg tablet 1 tablet as needed [...] irritation, no vis (more content not included)... [facility] Evaluation note* Encounter Date Diagnosis Assessment Notes Treatment Notes Treatment Clinical Notes Dec, Lumbar spondylosis (ICD-10 - M47.816) [employer] Other 05-11-2023 Evaluation note* Encounter Date Diagnosis Assessment Notes Treatment Notes Treatment Clinical Notes November, Lumbar spondylosis (ICD-10 - M47.816) [employer] Other 05-09-2023 Evaluation + Plan note Diagnostic Tests Pending * Uro[facility] Fish and Urine Cyto ([facility]) 12/03/22 [facility] 04-12-2023 Evaluation note* Encounter Date Diagnosis Assessment Notes Treatment Notes Treatment Clinical Notes Oct, Second degree Mobitz I AV block (ICD-10 - I44.1) [facility] Other 03-30-2023 Evaluation note* Encounter Date Diagnosis Assessment Notes Treatment Notes Treatment Clinical Notes Sep, Ischemic cardiomyopathy (ICD-10 - I25.5) Sep, Lumbar spondylosis (ICD-10 - M47.816) [facility] Other 03-29-2023 Evaluation note* Encounter Date Diagnosis [...] are maintaining regular scheduled appts with their manager lean. Sep, IFG (impaired fastin g glucose) (ICD-10 [...] bronchitis (ICD-10 - J41.1) Declined f/u w/ inside sales specialist Stiolto w/o benefit No breathlessness, wheeziong [...] - R00.1) Slow AFib? EKG order sent [facility] Other 03-27-2023 Evaluation + Plan note Diagnostic Tests Pending * Urine Culture 10/21/22 [facility]11-23-2022 Evaluation + Plan note Diagnostic Tests Pending * Urine Culture 06/19/22 [facility]11-07-2022 NoteCARDIAC STRESS TEST Requesting Physician: Procedure [...] Myocardial perfusion images will be reported separately.[facility] 04-26-2022 Evaluation + Plan note Diagnostic Tests Pending * Uro[facility] FISH ([facility]) 04/26/22 [facility] 09-12-2022 Evaluation + Plan note Diagnostic Tests Pending * Uro[facility]ys[facility] Fish and Urine Cyto ([facility]) 04/08/22 [facility] 04-27-2022 Evaluation + Plan note Diagnostic Tests Pending * Uro[facility]ys[facility] Fish and Urine Cyto ([facility]) 11/21/21 [facility] 04-08-2022 Evaluation + Plan note Diagnostic Tests Pending * Uro[facility]ys[facility] Fish and Urine Cyto ([facility]) 11/02/21 [facility] evaluation + Plan note Future Appointments Appointment Date:12/03/2022 09:00:00 AM Scheduled Provider: Location:[facility] Appointment Type:URO Nurse Visit [facility] evaluation + Plan note Future Appointments Appointment Date:12/03/2022 09:00:00 AM Scheduled Provider: Location:[facility] Appointment Type:URO Nurse Visit Diagnostic Tests Pending * [facility] Work Phone: Evaluation noteNo 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 [employer] Other [employer] general Narrative - Reported* Type Description Date [...] 2019,2020,2021, Surgical History RIGHT URETERAL STENT PLACEMENT 2009 Surgical History COLONOSCOPY Surgical History LHC MULTIVESSEL DS 2016 Hospitalization History SEE SURGICAL HX [facility] Other [facility] general Narrative - Reported* Type Description Date [...] 2019,2020,2021, Surgical History RIGHT URETERAL STENT PLACEMENT 2009 Surgical History COLONOSCOPY Surgical History LHC MULTIVESSEL DS 2017 Surgical History Cystoscopy 11/2022 Hospitalization History SEE SURGICAL HX [facility] Other Hospital course Narrative No data available for this section [facility] Hospital Discharge instructions No data available for this section [facility] Hospital Discharge instructions Additional Instructions I am glad that your nephrostomy is no longer obstructed. I assume there was a small blood clot blocking the catheter given the blood in your nephrostomy bag. Call Dr Blanca in the morning to discuss whether anything else needs to be done. If the tube gets obstructed again, come back right away so we can clear it out.[facility] Work Phone: Progress note No data available for this section [facility] Summary Purpose Family History No Family History [...] section and content) DATE CREATED AUTHOR 10/12/2020 [facility] DATE CREATED AUTHOR AUTHOR'S ORGANIZ ATION 01/07/2023 [facility] DATE CREATED AUTHOR AUTHOR'S ORGANIZ ATION 09/05/2023 [facility] DATE CREATED AUTHOR AUTHOR'S ORGANIZ ATION 10/08/2023 [facility] DATE CREATED AUTHOR AUTHOR'S ORGANIZ ATION 10/30/2023 [facility] Care Teams (unrecognized sec tion and content) Team Status: Inactive Member Role Status Dates Benson Mancini DO Primary Care Provider Active Steven Coronado MD Attending Provider Active Team Status: Active Member Role Status Dates Benson Mancini , DO Primary Care Provider Active Team Status: Inactive Member Role Status Dates Benson Mancini , DO Primary Care Provider Active Declan Moreira , DO Attending Provider Active Team Status: Inactive Member [...] upMedication QuestionPain Med Refill/IncreaseRefills3 month Follow upRefillTesting [facility] resultsRefill FOR RECORDS PERTAINING TO PATIENTS WHO [...] BE BASED ON THE PRIMARY CLINICAL RECORDS. [employer] provides no warranty or guarantee of the accuracy or completeness of information in this document.
[2023-11-03 09:31] LABS: Hematocrit 34.3 % (42.0-54.0); Mean Corpuscular HGB Conc 32.1 g/dL (29.9-35.2); Mean Corpuscular Volume 93.5 fL (80.0-94.0); Mean Platelet Volume 10.3 fL (9.5-13.5); Platelet Count 144 10^3/uL (150-450); Red Blood Count 3.67 10^6/uL (4.70-6.10); Red Cell Distribution Width 13.7 % (11.0-15.0); White Blood Count 5.9 10^3/uL (4.0-11.0)
[2023-11-03 10:01] LABS: Bilirubin Urine NEGATIVE (NEGATIVE); Blood Urine LARGE (NEGATIVE); Clarity Urine CLEAR (CLEAR); Color Urine LT. YELLOW (YELLOW); Glucose Urine UA NEGATIVE (NEGATIVE); Ketones Urine NEGATIVE (NEGATIVE); Leukocyte Esterase Urine MODERATE (NEGATIVE); Nitrite Urine POSITIVE (NEGATIVE); Protein Urine 100 mg/dL (NEG/TRACE); Urobilinogen Urine 0.2 EU/dL (0.2-1.0); pH Urine 7.5 (5.0-9.0)
[2023-11-03 10:20] LABS: Albumin Level 3.5 g/dL (3.4-5.0); Anion Gap 16.6; BUN Creatinine Ratio 16.9; Carbon Dioxide 22.2 mmol/L (21.0-32.0); Chloride 99 mmol/L (98-107); Estimated GFR (African America 31 (>=60); Estimated GFR (Non-African Ame 25 (>=60); Glucose 137 mg/dL (74-106); Magnesium 1.5 mg/dL (1.8-2.4); Phosphorus 3.9 mg/dL (2.6-4.7); Potassium 4.8 mmol/L (3.5-5.1); Sodium 133 mmol/L (136-145)
[2023-11-03 10:25] LABS: Creatinine Urine Random 54.23 mg/dL (20.00-300.00); Microalbum Creatinine Ratio Ur 370.6 mg/g (0.0-29.9); Microalbumin Urine Random 20.1 mg/dL (<=30.0)
[2023-11-03 10:29] LABS: Amorphous Sediment Urine RARE; Bacteria Urine LARGE #/HPF (NONE SEEN); Calcium Oxalate Crystals Urine RARE; Cast Seen? NONE SEEN #/LPF (NONE SEEN); Crystals Seen? Seen #/HPF (None Seen); Mucus Urine NONE SEEN (NONE SEEN); Squamous Epithelial Cell Urine FEW #/LPF (NONE/RARE)
== END 2023-11-03 08:50 | disposition home or self-care (01) ==
LOC: LAB 08:50
PROVIDERS: PCP Internal Medicine
DX: N18.32 Chronic kidney disease, stage 3b (principal)
CPT/HCPCS: 36415; 80048; 81001; 81003; 82042; 82043; 82570; 83735; 84100; 85027

== ENCOUNTER 2024-02-09 07:28 | Day surgery (SDC) | payer MEDICARE, SELFPAY ==
[2024-02-09 07:48] VITALS: BP 175/95; PULSE 96; TEMP 36.2; O2SAT 99
[2024-02-09 08:48] VITALS: BP 173/83; PULSE 84; O2SAT 98
[2024-02-09] MEDS: LIDOCAINE 2% JELLY 10 ML UR (08:52)
[2024-02-09 08:57] VITALS: BP 173/85; PULSE 95; O2SAT 98
--- NOTE | 2024-02-09 08:58 | PM.URSON ---
Urology Surgery Operative Note Operative Note Procedure Date: 02/09/24 Time Out Performed: yes Pre-op Diagnosis: History of recurrent TCC of the bladder Post-op Diagnosis: same as pre-op Procedures performed: 1. Cystoscopy. Anesthesia: local Primary Surgeon: Hudson Blanca Complications: None Estimated blood loss (mL): 0 Findings: Contracted bladder. No evidence of bladder tumors. Drains: None Indications for Procedures: This gentleman has a history of recurrent superficial TCC of the bladder. 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 He now presents for an annual surveillance cystoscopy. He has signed an informed consent after risks were explained. Detailed description of Procedure: The patient was kept on the [facility] bed and brought to the endoscopy suite. He was in the supine position. Timeout was done by all parties in the room. We all agreed upon the patient's identification and the planned procedures for this patient. Genitalia were sterilely prepped and draped in the usual fashion. 2% lidocaine gel was passed per urethra. I then passed a flexible cystoscope per urethra and into the bladder. The anterior urethra was unremarkable. The prostatic urethra was open. The bladder was significantly contracted. Panendoscopy in the bladder showed no evidence of any tumors or stones. There were no erythematous mucosal lesions noted. The scope was then removed. He was then discharged to home.
== END 2024-02-09 09:03 | disposition home or self-care (01) ==
PROVIDERS: PCP Internal Medicine; Visit Provider Urology
PROC: (CPT 52000; principal; 2024-02-09 08:30)
DX: Z08 Encounter for follow-up examination after completed treatment for malignant neoplasm (principal); Z85.51 Personal history of malignant neoplasm of bladder
CPT/HCPCS: 52000

== ENCOUNTER 2024-05-03 07:42 | Outpatient (OUT) | payer MEDICARE, SELFPAY ==
--- NOTE | 2024-05-03 | NM_ITS ---
Patient Name: MYKEL IRIZARRY MR#: [id number] : 1940 Exam Date: 05/03/2024 Ordering Doctor: DR ALEXIS JOSHI M.D. RADIOLOGY REPORT PROCEDURE: NM YASSINE PERF SPECT REST STR COMPARISON: None. INDICATIONS: dyspnea, atherosclerotic heart disease TECHNIQUE: Exam Description: Stress/Rest two day protocol gated SPECT Rest Imagin.3 mCi Tc-99m Cardiolite IV on 05/03/2024 Stress Imaging 25.3 mCi Tc-99m Cardiolite IV on 05/05/2024 Exercise Protocol: 0.4 mg Lexiscan given IV Heart Rate (bpm): Rest: 75 Max: 95 PMHR: 68 Blood Pressure: Rest: 170/72 Max: 170/72 Symptoms: chest heaviness Rest and peak stress ECG findings were pending and the exercise portion of the study was pending per attending physician Dr. ROBERTS . For more details please see separate cardiac stress test report. FINDINGS: QUALITY OF STUDY: Excellent. PERFUSION DEFECT: LOCATION: Basal inferior. Basal inferolateral. Mid-inferior. Mid-inferolateral. Apical inferior. SIZE: Large (5 or more segments). SEVERITY: Severe. TYPE: Persistent. WALL MOTION: Severe hypokinesis: Basal inferior. Basal inferolateral. Mid-inferior. Mid-inferolateral. Apical inferior. LV SIZE: Enlarged; EDV 165 mL. TID / TCD: None; 1.0 LVEF: Abnormal. Calculated EF 34%. SUMMARY: Myocardial perfusion imaging study has ABNORMAL findings. CONCLUSION: 1. No acute or reversible ischemia. 2. Large area of fixed ischemia involving the lateral, inferolateral, and inferior casanova. 3. Hypokinesis of the inferior and lateral casanova as well. 4. Left ventriculomegaly, 165 mL. 5. Abnormally low left ventricle ejection fraction, 34%. Dictated by: Jonathon Ramesh M.D. on 05/05/2024 at 13:31 Approved by: Jonathon Ramesh M.D. on 05/05/2024 at 13:39
--- OUTSIDE RECORDS SUMMARY | 2024-05-03 07:46 | XMS_ITS | CCD ---
Author Organization [facility] Care Team Providers Care Hr Consultant Name Role Phone RICHIE WALTON Attending Unavailable RICHIE WALTON Admitting Unavailable BENSON MANCINI Referring Unavailable LIVE, BENSON Primary Care Unavailable TERESITA BLACKWELL Primary Care Physician DO Benson Mancini Primary Care Provider MD Steven Coronado Attending Provider DO Benson Mancini Primary Care Provider [phone] DO Declan Moreira Attending Provider Unavailable Live, DO Knowles Primary Care Provider MD Hudson Blanca Attending Provider Harish, DO Manriquez Attending Provider Unavailable Benson [...] DR RUTLEDGE Consulting Unavailable REQUEST, NONE LISTED Attending Unavaila ble Live, DO Knowles Primary Care Provider MD Hudson Blanca Attending Provider DO Benson Mancini Primary Care Provider [phone] MD Hudson Blanca Attending Provider MD Jose D Hercules Jr Emergency Provider DO Benson Mancini Primary Care Provider [phone] Harish, DO Manriquez Attending Provider Unavailable MD Hudson Blanca Attending Provider [phone] Hudson Blanca Attending Unavailable Ball, Benson Primary Care Unavailable Hudson Blanca Admitting Unavailable Live, Benson Primary Care Unavailable Moreira, Declan Admitting Unavailable Moreira, Declan Attending Unavailable Blanca, Hudson Admitting Unavailable Blanca, Hudson Attending Unavailable Ball, Benson Primary Care Unavailable Ball, Benson Primary Care Unavailable Moreira, Declan Admitting Unavailable Moreira, Declan Attending Unavailable Live, Benson Primary Care Unavailable Jose D Hercules Jr Admitting Unavailable Jose D Hercules Jr Attending Unavailable DO Benson Mancini Primary Care Provider BENSON MANCINI Primary Care Physician Hudson BLANCA Attending Unavailable BLANCA, Hudson R Admitting Unavailable BLANCA, Hudson R Attending Unavailable RAJENDRA NUÑEZ Attending Unavailable ELTAHAWY, EMANUEL Attending Unavailable LANEY DOWLING Referring Unavailable Hudson BLANCA R Attending Unavailable Hudson BLANCA Attending Unavailable Hudson BLANCA Admitting Unavailable Hudson BLANCA Attending Unavailable Allergies Allergy Classification Reported Allergen(s) Allergy Type Date of Onset Reaction(s) Facility (20 sources) traMADol; Translations: [tramadol] Drug Allergy 8 Nausea, Unknown [facility] (1 source) patient allergy list reviewed by nurse or physicia Propensity to adverse reactions Comment:Done [facility] Other (2 sources) No Known Medication Allergies; Translations: [No Known Medication Allergies] Propensity to adverse reactions (disorder) [facility] Repository (1 source) rOPINIRole; Translations: [ROPINIROLE] Drug Allergy 2 [facility] Repository Medications Current Medications Medication Drug Class(es) Dates Sig (Normalized) Sig (Original) acetaminophen 325 mg / HYDROcodone bitartrate 5 mg oral tablet (20 sources) Opioid Agonist Start: 04-02-2024 take 1 tablet by mouth every eight hours Hydrocodone-Aceta minophen Active 1 TAB PO Q8H 60 April 02, 2024 start 04/02 Start: 08-05-2023 End: 04-02-2024 take 1 tablet by mouth every eight hours Hydrocodone-Acetaminophen Discontinued 1 TAB PO Q8H 60 February 24, 2024 April 02, 2024 10:25am start 02/23 Start: 05-28-2023 take 1 tablet by kristina [...] kristina th every eight hours for pain Marshall 325 mg-5 mg oral tablet 1 tab(s), Oral, q8hr for pain, 15 tab(s), Refill(s) 0, [id number] Start Date: 03/03/20 Status: Ordered Start: 02-25-2020 take 1 tablet by kristina th once Marshall 325 mg-5 mg oral tablet 1 tab(s), Oral, Once, 1 tab(s), Refill(s) 0, Take 30 minutes prior to procedure, [facility] Start Date: 02/25/20 Status: Ordered Start: 12-01-2017 End: 12-30-2017 take 1 tablet by mouth every eight hours Hydrocodone-Acetaminophen Discontinued 1 TAB PO Q8H December 01, 2017 12:00am December 30, 2017 9:09pm 120 actuat albuterol 0.1 mg/actuat / ipratropium bromide 0.02 mg/actuat inhalation spray (19 sources) Anticholinergic, beta2-Adrenergic Agonist Start: 07-30-2022 amoxicillin 875 mg / clavulanate 125 mg oral tablet (2 sources) Penicillin-class Antibacterial Start: 04-01-2024 End: 04-08-2024 take 1 tablet by mouth every twelve hours Augmentin 875 mg oral tablet = 1 tab(s), Oral, q12hr, X 7 day(s), # 14 tab(s), Refills(s) 0, Pharmacy: [id number] Start Date: 04/01/24 Stop Date: 04/08/24 Status: Ordered apixaban 2.5 mg oral tablet (9 sources) Factor Xa Inhibitor Start: 08-05-2023 take 1 tablet by mouth twice daily Apixaban (Eliquis) 2.5 mg tablet Active 2.5 MG PO Twice daily August 05, 2023 1:00am aspirin 81 mg chewable tablet (20 sources) Platelet Aggregation Inhibitor, Nonsteroidal Anti-inflammatory Drug Start: 05-24-2020 aspirin 81 mg Chew Tab Start Date: 05/24/20 Status: Ordered Start: 12-01-2017 End: 10-08-2023 Aspirin (Domingo Low Dose Aspi rin) 81 mg Tablet,Delayed Release (Dr/Ec) Discontinued 81 MG PO Daily December 01, 2017 12:00am October 08, 2023 6:57pm take 1 tablet by kristina th once daily Aspirin 81 81 MG 1 tablet Orally Once a day Active atorvastatin 40 mg oral tablet (20 sources) HMG-CoA Reductase Inhibitor Start: 09-30-2023 take 40 mg by mouth once daily Atorvastatin Active 40 MG PO Daily September 30, 2023 1:00am Start: 12-01-2017 End: 09-30-2023 take 40 mg by mouth once daily Atorvastatin Discontinu ed 40 MG PO Daily September 26, 2023 4:25pm September 30, 2023 11:38am Start: 12-01-2017 take 10 mg by mouth once daily Atorvastatin Active 10 MG PO Daily November 30, 2017 11:00pm Atorvastatin Savannah cium 40 MG TAKE 1 TABLET DAILY IN THE EVENING Active carvedilol 12.5 mg oral tablet (20 sources) alpha-Adrenergic Erica, beta-Adrenergic Erica Start: 05-24-2020 carvedilol 12.5 mg Tab Start Date: 05/24/20 Status: Ordered Start: 12-01-2017 End: 08-05-2023 take 3.125 mg by mouth twice daily Carvedilol Discontinued 3.125 MG PO Twice daily December 01, 2017 12:00am August 05, 2023 3:28am Centrum Silver - (4 sources) Centrum Silver - as directed Orally Active cephalexin 500 mg oral capsule (20 sources) Cephalosporin Antibacterial Start: take 1 capsule by mouth every twelve hours Keflex 500 mg Cap 500 mg = 1 cap(s), Oral, q12hr, # 20 cap(s), Refills(s) 0, Pharmacy: [id number] Start Date: 10/21/22 Status: Ordered Start: 06-19-2022 End: 06-26-2022 take 1 capsule by mouth every twelve hours Keflex 500 mg Cap 500 mg = 1 cap(s), Oral, q12hr, X 7 day(s), # 14 cap(s), Refills(s) 0, Pharmacy: [facility] #[id number] Start Date: 11/23/22 Stop Date: 06/26/22 Status: Ordered Start: 04-14-2020 take 1 capsule by mo [facility] twice daily Keflex 500 mg Cap 500 mg = 1 cap(s), Oral, BID, # 14 cap(s), Refills(s) 0, Pharmacy: [id number] Start Date: 04/14/20 Status: Ordered clopidogrel 75 mg oral tablet (20 sources) [id number] Platelet Inhibitor Start: 12-01-2017 End: 08-05-2023 Plavix 75 mg Tab Start Date: 05/24/20 Status: Ordered ferrous sulfate 324 mg delayed release oral tablet (20 sources) Start: 09-30-2023 take 324 mg by mouth once daily Ferrous Sulfate Active 324 MG PO Daily September 30, 2023 1:00am Start: 09-26-2023 End: 09-30-2023 take 65 mg by mouth once daily Ferrous Sulfate Discont inued 65 MG PO Daily September 26, 2023 4:25pm September 30, 2023 11:42am Start: 08-05-2023 End: 09-26-2023 take 65 mg by mouth once daily Ferrous Sulfate Discont inued 65 MG PO Daily August 05, 2023 1:00am September 26, 2023 4:27pm Start: 08-05-2023 take 65 mg by mouth once daily Ferrous Sulfate Active 65 MG PO Daily August 05, 2023 12:00am [facility] Ferrous Sulfate 325 (65 Fe) MG 1 tablet Orally Once a day Active take 1 tablet by kristina once daily Ferrous Sulfate 325 (65 Fe) MG 1 tablet Orally Once a day Active hydrALAZINE hydrochloride 25 mg oral tablet (20 sources) Arteriolar Vasodilator Start: 08-05-2023 End: 10-08-2023 take 25 mg by mouth twice daily Hydralazine Active 25 MG PO Twice daily September 30, 2023 1:00am take 1 tablet by mouth every six hours hydrALAZINE HCl 10 MG 1 tablet with food Orally Four times a day Active 24 hr isosorbide mononitrate 30 mg extended release oral tablet (20 sources) Nitrate Vasodilator Start: 08-05-2023 take 30 mg by mouth once daily in the morning Isosorbide Mononitrate Active 30 MG PO Every morning August 05, 2023 1:00am lisinopril 5 mg oral tablet (20 sources) Angiotensin Converting Enzyme Inhibitor Start: 11-28-2023 take 5 mg by mouth twice daily Lisinopril Active 5 MG PO Twice daily 180 90 November 28, 2023 12:00am Start: 05-24-2020 lisinopril 10 mg Tab Start Date: 05/24/20 Status: Ordered Start: 12-01-2017 End: 09-30-2023 take 5 mg by mouth at bedtime Lisinopril Discontinued 5 MG PO Bedtime September 26, 2023 4:26pm September 30, 2023 11:42am Start: 12-01-2017 take 2.5 mg by mouth at bedtim e Lisinopril Active 2.5 MG PO Bedtime November 30, 2017 11:00pm Lisinopril 5 MG TAKE 1 TABLET DAILY Active magnesium oxide 400 mg oral tablet (20 sources) Start: 08-05-2023 take 400 mg by mouth once daily Magnesium Oxide Active 400 MG PO Daily August 05, 2023 1:00am Eomcepfanpgm-Ezhbalza-U utein (Centrum Silver) Tablet (5 sources) Start: 08-05-2023 take 1 tablet by mouth once daily Multivitamin-Minerals- Lutein (Centrum Silver) Tablet Active 1 TAB PO Daily August 05, 2023 1:00am Start: 08-05-2023 take 1 tablet by kristina th once daily Tydczwjuwskr-Nsemfheu-Rrjgse (Centrum Silver) Tablet Active 1 TAB PO Daily August 05, 2023 12:00am 60 actuat olodaterol 0.0025 mg/actuat / tiotropium 0.0025 mg/actuat inhalation spray (9 sources) Anticholinergic, beta2-Adrenergic Agonist Stiolto Respimat 2.5-2.5 MCG/ACT 2 puffs Inhalation Once a day Active monobasic potassium phosphate 0.0408 meq/ml oral solution (20 sources) Start: 019 take 1 tablet by mouth twice daily K-Phos Original 500 mg oral tablet 1, Oral, BID, # 180 tab(s), Refills(s) 3, Pharmacy: [facility] Start Date: 07/10/20 Status: Ordered spironolactone 25 mg oral tablet (20 sources) Aldosterone Antagonist Start: 024 take 25 mg by mouth once daily Spironolactone Active 25 MG PO Daily April 02, 2024 12:00am Start: 08-05-2023 End: 09-30-2023 take 25 mg by mouth once daily Spironolactone Discontinued 25 MG PO Daily August 05, 2023 1:00am September 30, 2023 11:43am sulfamethoxazole 400 mg / trimethoprim 80 mg oral tablet (14 sources) Dihydrofolate Reductase Inhibitor Antibacterial, Sulfonamide Antimicrobial Start: 11-04-2022 End: 11-14-2022 Bactrim 400 mg-80 mg Tab 80 mg, Oral, q12hr for 10 day(s), 20 tab(s), Refill(s) 0, [facility] #[id number] Start Date: 11/04/22 Stop Date: 11/14/22 Status: Ordered Start: 06-11-2021 Bactrim DS 800 mg-160 mg Tab 160 mg, Oral, q12hr, 14 tab(s), Refill(s) 0, [facility] [facility] Start Date: 06/11/21 Status: Ordered Start: 12-01-2017 End: 12-01-2017 Sulfamethoxazole-Trimethopri m Discontinued TABLET December 01, 2017 12:00am December 01, 2017 8:44am tamsulosin hydrochloride 0.4 mg oral capsule (4 sources) alpha-Adrenergic Erica Start: 12-27-2022 take 1 capsule by mouth twice daily tamsulosin 0.4 mg Cap 0.4 mg = 1 cap(s), Oral, BID, # 30 cap(s), Refills(s) 0, Pharmacy: [facility] #[id number] Start Date: 12/27/22 Status: Ordered Completed/Discontinued Medications Medication Drug Class(es) Dates Sig (Normalized) Sig (Original) ciprofloxacin 500 mg oral tablet (16 sources) Quinolone Antimicrobial Start: 01-20-2024 take 1 tablet by mouth once daily Cipro 500 mg Tab 500 mg = 1 tab(s), Oral, Daily, Take 1 tablet the day before the procedure and 1 tablet after the procedure, # 2 tab(s), Refills(s) 0, Pharmacy: [facility] #[id number] Start Date: 01/20/24 Status: Ordered Start: 04-04-2022 take 1 tablet by kristina once daily Cipro 500 mg Tab 500 mg = 1 tab(s), Oral, Daily, Take 1 tablet the day before the procedure and 1 tablet after the procedure, # 2 tab(s), Refills(s) 0, Pharmacy: [facility] #[id number] Start Date: 11/26/22 Status: Ordered Start: 10-30-2021 take [address] [facility] once daily Cipro 500 mg Tab 500 mg = 1 tab(s), Oral, Daily, Take 1 tablet the day before the procedure and 1 tablet after the procedure, # 2 tab(s), Refills(s) 0, [facility] Start Date: 10/30/21 Status: Ordered hyoscyamine sulfate 0.125 mg sublingual tablet (10 sources) Start: 12-01-2017 End: 12-30-2017 take 0.25 mg under the tongue three times daily Hyoscyamine Sulfate Discontinued 0.25 MG SUBLINGUAL Three times daily December 01, 2017 12:00am December 30, 2017 9:09pm hyoscyamine sulfate 0.12 mg / methenamine 118 mg / methylene blue 10 mg / phenyl salicylate 36 mg / sodium phosphate, monobasic 40.8 mg oral capsule (10 sources) Oxidation-Reduction Agent Start: 12-01-2017 End: 12-30-2017 take 1 tablet by mouth four times daily Methen-M.Blue-S.Ph uq-Jbqmb-Loj (Uribel) 118-10-40.8-36 mg Capsule Discontinued 1 TAB PO Four times daily December 01, 2017 12:00am December 30, 2017 9:08pm mupirocin 0.02 mg/mg topical ointment (13 sources) RNA Synthetase Inhibitor Antibacterial Start: 12-31-2023 End: 04-02-2024 Mupirocin Discontinued 1 APPLIC TOPICAL Twice daily 18 05December 31, 2023 12:00am April 02, 2024 10:05am Start: 01-23-2023 Mupirocin 2 % 1 application Externally Twice a day for 14 days Dec, Not-Taking/PRN potassium phosphate 155 mg / sodium phosphate, dibasic 852 mg / sodium phosphate, monobasic 130 mg oral tablet (10 sources) Start: 12-01-2017 End: 12-30-2017 take 2 tablets by mouth twice daily Sod Phos Di, Becker-K Phos Becker (Phospha 250 Neutral) 250 mg Tablet Discontinued 2 TAB PO Twice daily December 01, 2017 12:00am December 30, 2017 9:09pm Problems Active Problems Problem Classification Problem Date Documented Da te Episodic/Chronic Alcohol-related disorders (1 source) Alcohol dependence, in remission; Translations: [ALCOHOL DEPENDENCE IN REMISSION] Onset: 2 Chronic Cancer of bladder (17 sources) Malignant neoplasm, overlapping lesion of bladder; Translations: [Malignant neoplasm of overlapping sites of bladder] Onset: 2 02-04-2019 Chronic Cancer of bladder (10 sources) History of malignant neoplasm of bladder; Translations: [Personal history of malignant neoplasm of bladder] Onset: 8 Episodic Cancer of other urinary organs (20 sources) Malignant neoplasm of urinary organ, unspecified; 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 Cancer of other urinary organs (1 source) Personal history of malignant neoplasm of ureter; Translations: [PERSONAL HX MALIG NEOPLASM URETER] Onset: 3 Episodic Cancer; other and unspecified primary (15 sources) History of bladder neoplasm 02-04-2019 Episodic Cardiac dysrhythmias (20 sources) Paroxysmal atrial fibrillation; Translations: [Paroxysmal atrial fibrillation] Onset: 3 Chronic Cardiac dysrhythmias (1 source) Bradycardia, unspecified Episodic Chronic kidney disease (17 sources) Chronic kidney disease stage 3; Translations: [Chronic kidney disease, stage 3 unspecified] Onset: 8 Chronic Chronic kidney disease (4 sources) Chronic kidney disease; Translations: [CHRONIC KIDNEY DISEASE STAGE 3B] Onset: 3 Chronic obstructive pulmonary disease and bronchiectasis (20 sources) Mucopurulent chronic bronchitis; Translations: [Mucopurulent chronic bronchitis] Chronic Complication of device; implant or graft (5 sources) Obstruction of urinary stent; Translations: [Other mechanical complication of nephrostomy catheter, initial encounter] 08-05-2023 Episodic Conditions associated with dizziness or vertigo (20 sources) Dizziness; Translations: [Dizziness and giddiness] Episodic Conduction disorders (2 sources) Atrioventricular block, second degree; Translations: [ATRIOVENTRICULAR BLOCK SECOND DEG] Onset: 3 Chronic Congestive heart failure; nonhypertensive (20 sources) Chronic systolic heart failure; Translations: [Chronic systolic (congestive) heart failure] Onset: 8 Chronic Coronary atherosclerosis and other heart disease (20 sources) Coronary arteriosclerosis; Translations: [Atherosclerotic heart disease of pala coronary artery without angina pectoris] Onset: 8 02-04-2019 Chronic Coronary atherosclerosis and other heart disease (1 source) Presence of aortocoronary bypass graft; Translations: [PRESENCE AORTOCORONARY BYPASS GRAFT] Onset: 3 Episodic Deficiency and other anemia (1 source) Anemia due to chronic blood loss; Translations: [Iron deficiency anemia secondary to blood loss (chronic)] Onset: 8 Chronic Diabetes mellitus without complication (16 sources) Type 1 diabetes mellitus; Translations: [Type 2 diabetes mellitus without complications] Onset: 3 02-04-2019 Chronic Diabetes mellitus without complication (20 sources) Impaired fasting glycemia; Translations: [Impaired fasting glucose] Episodic Disorders of lipid metabolism (20 sources) Pure hypercholesterolemia; Translations: [Familial hypercholesterolemia] Onset: 8 Chronic Essential hypertension (20 sources) Hypertensive disorder; Translations: [Essential hypertension] Onset: 3 02-04-2019 Chronic Genitourinary symptoms and ill-defined conditions (1 source) Encounter for fitting and adjustment of urinary device; Translations: [Encounter for fitting and adjustment of urinary device] Onset: 4 Chronic Genitourinary symptoms and ill-defined conditions (20 [...] unspecified chronic kidney disease] Onset: 8 Chronic Nausea and vomiting (19 sources) Nausea; Translations: [Nausea] Episodic Occlusion or stenosis of precerebral arteries (20 sources) Left carotid artery occlusion; Translations: [Occlusion and stenosis of left carotid artery] Onset: 8 Chronic Osteoarthritis (1 source) Unspecified osteoarthritis, unspecified site; Translations: [UNSPECIFIED OSTEOARTHRITIS UNS SITE] Onset: 2 Chronic Other aftercare (3 sources) Drug therapy finding; Translations: [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 block assembler (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) use of opiate analgesic] 12-29-2023 Episodic Other aftercare (3 sources) jail (current) use of opiate analgesic; Translations: [Long-term (current) use of other medications] 12-31-2023 Episodic Other diseases of kidney and ureters (15 sources) Hydronephrosis 02-04-2019 Episodic Other diseases of [...] lung; Translations: [Solitary pulmonary nodule] Episodic Other lower respiratory disease (2 sources) Other forms of dyspnea; Translations: [Other forms of dyspnea] Onset: 4 Episodic Other nutritional; endocrine; and metabolic disorders (1 source) Overweight; Translations: [Overweight] Episodic Other screening for suspected conditions (not mental disorders or infectious disease) (20 sources) Serum creatinine raised; Translations: [Other specified abnormal findings of blood chemistry] Episodic Other upper respiratory infections (1 source) Acute maxillary sinusitis; Translations: [Acute maxillary sinusitis, unspecified] Episodic Peripheral and visceral atherosclerosis (20 sources) Intermittent claudication of bilateral lower limbs co-occurrent and due to atherosclerosis; Translations: [Atherosclerosis of pala arteries of extremities with intermittent claudication, bilateral legs] Chronic Screening and history of mental health and substance abuse codes (17 sources) Ex-smoker; Translations: [Personal history of nicotine dependence] Onset: 8 02-04-2019 Episodic Skin and subcutaneous tissue infections (1 source) [...] wall of thorax, subsequent encounter] Episodic Unclassified (15 sources) Drug therapy finding 02-04-2019 Unclassified (2 sources) Obstructed nephrostomy tube Onset: 4 Urinary tract infections (14 sources) Acute urinary tract infection; Translations: [Urinary tract infectious disease] Onset: 2 06-19-2022 Episodic Viral infection (1 source) Disease caused by 2019-nCoV; Translations: [COVID-19] Past or Other Problems Problem Classification Problem Date Documented Date Episodic/Chronic Abdominal pain (1 source) Unspecified abdominal pain; Translations: [Unspecified abdominal pain] Onset: 08-05-2023 Episodic Bacterial infection; unspecified site (1 source) Bacterial infectious disease; Translations: [Bacterial infection, unspecified, in conditions classified elsewhere and of unspecified site] Onset: 05-12-2018 Episodic E Codes: Adverse effects of medical drugs (1 source) Adverse effect of other drug primarily affecting the autonomic nervous system, initial encounter; Translations: [Adverse effect of other drug primarily affecting the autonomic nervous system, initial encounter] Onset: 02-10-2018 Episodic Fluid and electrolyte disorders (4 sources) Hyperkalemia; Translations: [HYPERKALEMIA] Onset: 05-14-2022 Episodic Immunizations and screening for infectious disease (20 sources) Infectious disease carrier; Translations: [Vaccination given] Onset: 09-20-2019 04-17-2020 Episodic Comment on above: ESBL E coli in urine 02/19/2021 ESBL E coli in urine 04/13/2020 ESBL E coli in urine 09/20/2019 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 ESBL E coli in urine 06/19/2022 Neoplasms of unspecified nature or uncertain behavior (1 source) 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; Translations: [Neoplasm of uncertain behavior of liver, gallbladder and bile ducts] Onset: 09-22-2017 Episodic Open wounds of extremities (1 source) Open wound of forearm with complication; Translations: [Laceration with foreign body of right forearm, initial encounter] Onset: 05-01-2018 Episodic Other aftercare (1 source) terminal block assembler (current) use of aspirin; Translations: [PUMP OPERATOR BYPRODUCTS CURRENT USE OF ASPIRIN] Onset: 05-01-2022 Episodic Other aftercare (1 source) jail (current) use of antithrombotics/anti platelets; Translations: [RESIDENTIAL ANTITHROMBOT/ANTIPLA TLETS] Onset: 05-01-2022 Episodic Other aftercare (1 source) 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 therapy; Translations: [OTH RESIDENTIAL CURRENT DRUG THERAPY] Onset: 05-01-2022 Episodic Other and unspecified benign neoplasm (1 source) 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; Translations: [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] Onset: 09-22-2017 Episodic Other circulatory disease (1 source) Orthostatic hypotension; Translations: [Orthostatic hypotension] Resolved: 01-14-2022 Episodic Other diseases of kidney and ureters (6 sources) Unspecified hydronephrosis; Translations: [UNSPECIFIED HYDRONEPHROSIS] Onset: [...] vaccination and inoculation, Influenza] Onset: 05-01-2018 Episodic Results Test Name Value Interpretation Reference Range Facility Reminderson 04-27-2024 Reminders Reminders - From: Sierra Rizzo To: EU - Recalls Blanca; Sent: 04/27/2024 16:14:14 EDT Show up: 06/27/2024 16:14:00 EST Subject: Neph tube change Due Date/Time: 07/26/2024 16:14:00 EST Reminder/Recall Patient is due in Jul 2024 for 3 month neph tube change at [facility] Reminders Reminders - From: Sierra Rizzo To: EU - Recalls Blanca; Sent: 10/31/2023 09:54:34 EDT Show up: 01/05/2024 09:54:00 EDT Subject: neph tube change Due Date/Time: 01/28/2024 09:54:00 EDT Reminder/Recall Patient will be due in January 2024 for 3 month neph tube change at [facility] [place]m [place] [facility] vm.SLICK Kamala called back, pt sched for 02/13/24 @ 8:30am. Pt will be due in Apr 2024.LG Spoke to pt, he cannot do 05/04/24. L/m on [facility] sched line to sched with Kamala .SLICK Wray called back, pt sched for 05/18/24 @ 7:45am. Order faxed [phone]. Normal [facility] Office Visiton 04-19-2024 Follow-up visit [id number] Arian Olivera 1940 M Date Provider Department Center 04/19/2024 [id number], EHAB BH CARD [facility] No family history on file Level of Service:[id number] [place] OFFICE/OUTPATIENT ESTABLISHED MOD MDM 30 MIN Normal [facility] Reminderson 04-12-2024 Reminders Reminders - From: Sierra Rizzo To: EU - Recalls Blanca; Sent: 04/12/2024 09:13:14 EDT Show up: 06/27/2024 09:12:00 EST Subject: neph tube change Due Date/Time: 07/19/2024 09:12:00 EST Reminder/Recall Patient needs right neph tube change in Jul 2024, 3 mo Normal [facility] C Urineon 04-07-2024 Bacteria identified Cx Nom (U) Microbiology PROCEDURE: Urine Culture [R1] SOURCE: U CleanCatch BODY SITE: COLLECTED DATE/TIME: 04/01/2024 12:43 EDT RECEIVED DATE/TIME: 04/01/2024 18:01 EDT START DATE/TIME: 04/01/2024 18:01 EDT FREE TEXT SOURCE: THEO CARDOSO, Hudson BLANCA MD, Hudson Silver FINAL REPORTS Final Report [] Verified Date/Time: 04/07/2024 09:47 EDT >100,000 cfu/ml Morganella morganii 75,000 cfu/ml Proteus mirabilis 75,000 cfu/ml Alcaligenes faecalis SUSCEPTIBILITY RESULTS LEGEND: S=Susceptible, N/R=Not Reported, Blank=Data not available, or drug not advisable or tested, I=Intermediate, ESBL=Extended spectrum beta-lactamase, R=Resistant, TFG=Thymidine-depend ent strain, CHARU=Beta-lactamase positive, RACHELLE=mcg/m;(mg/L), S*=Predicted susceptible interp, R*=Predicted resistant interp Mormor Promir Alcfae Antibiotic RACHELLE Dilutn RACHELLE Interp RACHELLE Dilutn RACHELLE Interp RACHELLE Dilutn RACHELLE Interp Ampicillin >16 R >16 R Ampicillin/ >16/8 R <=8/4 S Sulbactam Aztreonam >16 R <=4 S <=4 S Cefazolin >16 R 4 S Cefepime <=2 S <=2 S <=2 S Ceftazidime <=1 S Ceftazidime/ <=8 S <=8 S Avibactam Ceftriaxone <=1 S <=1 S <=1 S Cefuroxime >16 R <=4 S Ciprofloxacin <=0.25 S 0.5 I Ertapenem <=0.5 S <=0.5 S Gentamicin <=2 S <=2 S <=2 S Levofloxacin <=0.5 S <=0.5 S Meropenem <=1 S <=1 S Nitrofurantoin 64 R* 64 R* Piperacillin/ <=8 S <=8 S <=8 S Tazobactam Tetracycline <=4 S >8 R <=4 S Tobramycin <=2 S <=2 S <=2 S Trimethoprim/ <=2/38 S <=2/38 S <=2/38 S Sulfa Performing Locations R1: This test was performed at: [facility], [address] [place] [address], [id number] , [place], Normal [facility] Comment on above: Performed By: #### 2 [id number] #### [facility] [address] [place] [address] IR nephrostomy tube chg UNon 02-13-2024 IR nephrostomy tube chg UN [address] [address] Interventional Radiology Rpt Signed Patient: Arian Olivera MR#: [id number] : 1940 Acct:[id number] Age/Sex: 83 / M ADM Date: 02/13/24 Loc: IR Room: Type: [facility] Attending Dr: Hudson Blanca MD Copies to: MD Harish Harrison Jeffrey S DO Ordering Provider: Declan Moreira DO Date of Service: 02/13/24 IR/IR nephrostomy tube chg UN: RT TUBE EXCH. Interventional radiology nephrostomy tube exchange HISTORY: Nephrostomy tube exchange 2 images. Cumulative Air Kerma in mGy: 20.4 mGy The right nephrostomy tube was cut. A wire was administered into the tube and exiting into the renal pelvis and proximal ureter. The old nephrostomy tube was removed. A new 12 Bangladeshi nephrostomy tube was administered into the right renal pelvis with wire guidance. The guidewire removed and pigtail locked. Contrast administered confirming adequate position. The nephrostomy tube was secured to skin. No immediate complications. IR/IR nephrostomy tube chg UN IMPRESSION: Adequate replacement of 12 Bangladeshi right percutaneous nephrostomy tube. Impression dictated by: Declan Moreira M.D.02/13/2024 12:28 PM Dictation Location: [place] [address] Transcribed By: [facility] 02/13/24 1228 Dictated By: Declan Moreira DO 02/13/24 1223 Signed By: 02/13/24 1228 Normal [facility] UroVysion Fish and Urine Cyt o (P4 Labs)on 02-06-2024 UVFISH & UC Diagnosis Info Invalid Interpretation Code [facility] Comment on above: Result Comment: A:Ur ine,Urine:Voided Diagnosis Summary - Inadequate cellularity for evaluation. Diagnosis Summary - The UroVysion FISH study detected normal copy numbers for chromosomes 3, 7, 17, and 9p21. 5 cells were analyzed in this evaluation. No [...] Abnormal cells aneploid events: Total cells analyzed: 5 Hematuria: Gross Description Site ID:A color Yellow fixative Alcohol Received 110 mls of clearish yellow fluid with the patient's name and, Urine on the vial. Electronically signed by : on: 02/06/2024 16:35:49 Performed By: #### 1 [id number] #### [facility] [address] [place] [address] Ambulatory Visit Summaryon 0 02-02-2024 Ambulatory Visit Summary Ambulatory Visit Summary RICKI OLIVERA :1940 Visit Date:02/02/2024 Ambulatory Visit Instructions Your Diagnosis Acute UTI Hx of bladder cancer Your Care Team Attending Physician - THEO CARDOSO, Hudson Silver Primary Care Physician - TERESITA BLACKWELL DO This Is Your Medications List aspirin (aspirin 81 mg Chew Tab) carvedilol (carvedilol 12.5 mg Tab) ciprofloxacin (Cipro 500 mg Tab) clopidogrel (Plavix 75 mg Tab) lisinopril (lisinopril 10 mg Tab) tamsulosin (tamsulosin 0.4 mg Cap) Procedures Performed Mitomycin (12/10/2018), Fluoroscopy guided right nephrostomy (12/01/2017), 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 Medications What How Much When Instructions Unchanged aspirin (aspirin 81 mg Chew Tab) Unchanged carvedilol (carvedilol 12.5 mg Tab) Unchanged ciprofloxacin (Cipro 500 mg Tab) 1 Tablets By Mouth Every day Take 1 tablet the day before the procedure and 1 tablet after the procedure Unchanged clopidogrel (Plavix 75 mg Tab) Unchanged lisinopril (lisinopril 10 mg Tab) Unchanged tamsulosin (tamsulosin 0.4 mg Cap) 1 Capsules By Mouth 2 times a day Allergies No Known Medication Allergies Problems Ongoing - Any problem that you are currently receiving treatment for. 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 Please share your experience with us by completing your survey. We appreciate your feedback and thank you for choosing us for your care. Normal [facility] UroVysion Fish and Urine Cyt o ( Labs)on 02-02-2024 UVUC Method of Extraction Voided Normal [facility] Comment on above: Performed By: #### 1 [id number] #### [facility] [address] [place] [address] UVUC Number of Jars 1 Invalid Interpretation Code [facility] Comment on above: Performed By: #### 1 [id number] #### [facility] [address] [place] [address] UVUC Specimen Urine Normal [facility] Comment on above: Performed By: #### 1 [id number] #### [facility] [address] [place] [address] UVUC Type of Service Technical Only Normal [facility] Comment on above: Performed By: #### 1 [id number] #### [facility] [address] [place] [address] Reminderson 01-27-2024 Reminders Reminders - From: Sierra Rizzo To: EU - Recalls Blanca; Sent: 01/27/2024 12:47:06 EDT Show up: 11/25/2024 12:46:00 EDT Subject: cysto/fish/cytol Due Date/Time: 12/20/2024 12:47:00 EDT Reminder/Recall Patient is due in January 2025 for 1 year cysto/fish/cytol, bt ck Normal [facility] Consent for Procedure/Surger yon 01-21-2024 Consent for Procedure/Surgery [id number] #1.00TIFF Normal [facility] IR nephrostomy tube chg UNon 11-21-2023 IR nephrostomy tube chg UN [facility] [place] [address] [place] [address] Interventional Radiology Rpt Signed Patient: Arian Olivera MR#: [id number] : 1940 Acct:[id number] Age/Sex: 83 / M ADM Date: 11/21/23 Loc: IR Room: Type: [facility] Attending Dr: Declan Moreira DO Copies to: Declan Moreira DO Ordering Provider: Declan Moreira DO Date of Service: 11/21/23 IR/IR nephrostomy tube chg UN: NEPH TUBE EXCH IR nephrostomy tube exchange right Cumulative Air Kerma in mGy: 23.6 mGy. 2 images Informed consent obtained. Sterile prep and drape utilized. Existing right percutaneous nephrostomy tube in adequate position confirmed with injection of contrast. The guidewire passed through the nephrostomy tube with adequate purchase. The old nephrostomy tube was replaced over wire. Wire and introducer removed. Pigtail locked. Adequate position confirmed with injection of contrast. No immediate complications. Patient discharged in satisfactory condition. IR/IR nephrostomy tube chg UN IMPRESSION: Successful right percutaneous nephrostomy tube exchange. Impression dictated by: Declan Moreira M.D.11/21/2023 12:48 PM Dictation Location: [place] [address] Transcribed By: [facility] 11/21/23 1248 Dictated By: Declan Moreira DO 11/21/23 1239 Signed By: 11/21/23 1248 Normal [facility] Amorphous urine sedimenton 0 11-03-2023 Amorphous sediment LM Ql (Urine sed) [facility] Automated epithelial cells c ount in urine sediment (number/area)on 11-03-2023 Epithelial cells Auto (Urine sed) [#/Area] FEW #/LPF NONE/RARE [facility] Automated leukocytes count i n urine sediment (number/area)on 11-03-2023 WBC Auto (Urine sed) [#/Area] 5-10 #/HPF 0-2 [facility] Automated urine sediment savannah cium oxalate crystal count by microscopy (number/high powon 11-03-2023 Calcium oxalate crystals LM.HPF (Urine sed) [#/Area] RARE [facility] Automated urine specific gra vity by refractometryon 11-03-2023 Specific gravity Refractometry automated (U) [Rel density] 1.020 1.005-1.025 [facility] Bilirubin Auto test strip (U ) [Mass/Vol]on 11-03-2023 Bilirubin (U) [Mass/Vol] Negative NEGATIVE [facility] Casts typing in urine sedime nt by light microscopyon 11-03-2023 Casts LM Nom (Urine sed) NONE SEEN #/LPF NONE SEEN [facility] Color Auto (U)on 11-03-2023 Color (U) LT. YELLOW YELLOW [facility] Erythrocyte distribution wid th Auto (RBC) [Ratio]on 11-03-2023 Erythrocyte distribution width (RBC) [Ratio] 13.7 % 11.0-15.0 [facility] Estimated glomerular filtrat ion rate (GFR) non- Americanon 11-03-2023 GFR/1.73 sq M.predicted among non-blacks MDRD (S/P/Bld) [Vol rate/Area] 25 mL/min/{1.73_m2} >=60 [facility] Hematocrit Auto (Bld) [Volum e fraction]on 11-03-2023 Hematocrit (Bld) [Volume fraction] 34.3 % 42.0-54.0 [facility] Hemoglobin [Mass/volume] in Bloodon 11-03-2023 Hemoglobin (Bld) [Mass/Vol] 11.0 g/dL 14.0-18.0 [facility] Ketones Auto test strip (U) [Mass/Vol]on 11-03-2023 Ketones (U) [Mass/Vol] Negative NEGATIVE [facility] Laboratory - Chemistry and C hemistry - challengeon 11-03-2023 Albumin [Mass/Vol] 3.5 g/dL 3.4-5.0 [facility] Calcium [Mass/Vol] 9.0 mg/dL 8.5-10.1 [facility] Chloride [Moles/Vol] 99 mmol/L 98-107 [facility] CO2 [Moles/Vol] 22.2 mmol/L 21.0-32.0 [facility] Creatinine [Mass/Vol] 2.48 mg/dL 0.70-1.30 [facility] GFR/1.73 sq M.predicted MDRD (S/P/Bld) [Vol rate/Area] 31 mL/min/{1.73_m2} >=60 [facility] Glucose [Mass/Vol] 137 mg/dL 74-106 [facility] Magnesium [Mass/Vol] 1.5 mg/dL 1.8-2.4 [facility] Potassium [Moles/Vol] 4.8 mmol/L 3.5-5.1 [facility] Sodium [Moles/Vol] 133 mmol/L 136-145 [facility] Urea nitrogen [Mass/Vol] 42.0 mg/dL 7.0-18.0 [facility] Urea nitrogen/Creatinine [Mass ratio] 16.9 mg/mg [facility] Leukocytes [#/volume] correc ronald for nucleated erythrocytes in Blood by Automated counon 11-03-2023 WBC corrected for nucl RBC Auto (Bld) [#/Vol] 5.9 10 3/uL 4.0-11.0 [facility] MCH Auto (RBC) [Entitic mass ]on 11-03-2023 MCH (RBC) [Entitic mass] 30.0 pg 25.9-34.0 [facility] MCHC Auto (RBC) [Mass/Vol]on 11-03-2023 MCHC (RBC) [Mass/Vol] 32.1 g/dL 29.9-35.2 [facility] MCV Auto (RBC) [Entitic vol] on 11-03-2023 MCV (RBC) [Entitic vol] 93.5 fL 80.0-94.0 [facility] Microalbumin [Mass/volume] i n Urineon 11-03-2023 Albumin DL <= 20 mg/L (U) [Mass/Vol] 20.1 mg/dL <=30.0 [facility] Mucus LM Ql (Urine sed)on Mucus Ql (Urine sed) NONE SEEN NONE SEEN [facility] No Panel Informationon 11-02 Phosphorus Level 3.9 mg/dL 2.6-4.7 [facility] Urine Random Creatinine 54.23 mg/dL 20.00-300.00 [facility] Platelet mean volume Auto (B ld) [Entitic vol]on 11-03-2023 Platelet mean volume (Bld) [Entitic vol] 10.3 fL 9.5-13.5 [facility] Platelets Auto (Bld) [#/Vol] on 11-03-2023 Platelets (Bld) [#/Vol] 144 10 3/uL 150-450 [facility] Protein Auto test strip (U) [Mass/Vol]on 11-03-2023 Protein (U) [Mass/Vol] 100 mg/dL NEG/TRACE [facility] RBC Auto (Bld) [#/Vol]on RBC (Bld) [#/Vol] 3.67 10 6/uL 4.70-6.10 [facility] Serum or plasma anion gap de terminationon 11-03-2023 Anion gap [Moles/Vol] 16.6 mmol/L [facility] Specific gravity Auto test s trip (U) [Rel density]on 11-03-2023 Specific gravity (U) [Rel density] CLEAR CLEAR [facility] Urine bacteria detection by automated methodon 11-03-2023 Bacteria Auto Ql (U) LARGE #/HPF NONE SEEN [facility] Urine glucose measurement by test strip (mass/volume)on 11-03-2023 Glucose Test strip (U) [Mass/Vol] Negative NEGATIVE [facility] Urine hemoglobin detection b y automated test stripon 11-03-2023 Hemoglobin Auto test strip Ql (U) LARGE NEGATIVE [facility] Urine microalbumin/creatinin e mass ratioon 11-03-2023 Albumin/Creatinine DL <= 20 mg/L (U) [Mass ratio] 370.6 mg/g 0.0-29.9 [facility] Comment on above: NO MICROALBUMINURIA 0-29 MG/GCLINICAL MICROALBUMINURIA 30-300 MG/GMACROALBUMINURIA >300 MG/G Urine nitrite detection by a utomated test stripon 11-03-2023 Nitrite Auto test strip Ql (U) MODERATE NEGATIVE [facility] Nitrite Auto test strip Ql (U) Positive NEGATIVE [facility] Urine sediment crystal ident ification by light microscopyon 11-03-2023 Crystals LM Nom (Urine sed) Seen #/HPF None Seen [facility] Urine sediment leukocyte cou nt by microscopy (number/high power field)on 11-03-2023 WBC LM.HPF (Urine sed) [#/Area] 10-20 #/HPF NONE SEEN [facility] Urobilinogen Auto test strip (U) [Mass/Vol]on 11-03-2023 Urobilinogen Qn (U) 0.2 {Raffi'U}/dL 0.2-1.0 [facility] pH Auto test strip (U)on pH (U) 7.5 [pH] 5.0-9.0 [facility] Physician Orderon 10-31-2023 Physician Order [id number] #1.00TIFF Normal [facility] Reminderson 10-31-2023 Reminders - From: Sierra Rizzo To: EU - Recalls Blanca; Cc: Sierra Rizzo; Sent: 07/08/2023 09:01:46 EST Show up: 08/28/2023 09:01:00 EST Subject: Neph tube change Due Date/Time: 09/22/2023 09:01:00 EST Reminder/Recall Patient is due in September 2023 for 3 month RT neph tube change at [facility] Patient had neph tube changed in Jul by Dr. Gonsalez due to problems. Pt will be due in October 2023.LG Spoke to pt, he is available all month. l/m on [facility] interventional sched vm to sched.SLICK Wray called back, pt sched for 11/20/23 @ 8am, Order faxed . new thread. Normal [facility] Office Visiton 10-07-2023 Follow-up visit [id number] Arian Olivera 1940 M Date Provider Department Center 10/07/2023 RAJENDRA VILLEGAS CARD [facility] No family history on file Level of Service:10340 [place] OFFICE/OUTPATIENT ESTABLISHED LOW MDM 20 MIN Normal [facility] Physician Orderon 08-06-2023 Physician Order [id number] #1.00TIFF Normal [facility] Capillary blood glucose cecilia urement by glucometer (mass/volume)Ordered By: PROVIDER TEMP on 08-05-2023 Glucose [Mass/Vol] 138 mg/dL Normal [facility] Comment on above: Random Glucose Refer ence Range is dependent on time and content of last meal. Glucose of more than 200 mg/dL in a nonstressed, ambulatory subject supports the diagnosis of Diabetes Mellitus. Result Comment: [place] Glucose Reference Range is dependent on time and content of last meal. Glucose of more than 200 mg/dL in a nonstressed, ambulatory subject supports the diagnosis of Diabetes Mellitus. PERFORMED BY: [place] [address] PATHOLOGIST HEAVY MACHINERY OPERATOR CAMI RAYA M.D. Performed By: #### G LULS #### Point of Care testing , ECG 12 lead ECGon 08-05-2023 ECG 12 lead ECG [place] [address] Electrocardiograph Report Signed Patient: Arian Olivera MR#: [id number] : 1940 Acct:[id number] Age/Sex: 83 / M ADM Date: 08/05/23 Loc: ER Room: Type: [facility] ER Attending Dr: Ordering Provider: Jose [...] available Confirmed by JOSE D HERCULES MD ([id number]) on 08/05/2023 5:39:43 AM Referred By: Electronically Signed By:JOSE D HERCULES MD Transcribed By: MUS Signed By Jose D Hercules Jr, MD 0539 Normal [facility] RAD - MISCon 07-29-2023 RAD - MISC [id number] #1.00TIFF Normal [facility] IR nephrostomy tube chg UNon 07-25-2023 IR nephrostomy tube chg UN [place] [address] Interventional Radiology Rpt Signed Patient: Arian Olivera MR#: [id number] : 1940 Acct:[id number] Age/Sex: 83 / M ADM Date: 07/25/23 Loc: IR Room: Type: [facility] Attending Dr: Hudson Blanca MD Copies [...] nephrostomy tube. The tube was removed. 12 Bangladeshi RIGHT nephrostomy tube was administered with a wire guidance. The tube is in adequate position and was locked. Contrast was administered confirming adequate position. No immediate complications. IR/IR nephrostomy tube chg UN IMPRESSION: Adequate exchange of 12 Bangladeshi RIGHT nephrostomy tube. Impression dictated by: Declan Moreira M.D.07/25/2023 11:15 AM Dictation Location: [place] [address] Transcribed By: [facility] 07/25/23 1115 Dictated By: Declan Moreira DO 07/25/23 1109 Signed By: 07/25/23 1115 Normal [facility] Physician Orderon 07-08-2023 Physician Order [id number] #1.00TIFF Normal [facility] IR nephrostomy tube chg UNon 04-22-2023 IR nephrostomy tube chg UN [place] [address] Interventional Radiology Rpt Signed Patient: Arian Olivera MR#: [id number] : 1940 Acct:[id number] Age/Sex: 83 / M ADM Date: 04/22/23 Loc: IR Room: Type: [facility] Attending Dr: Declan Moreira DO Copies to: Declan Moreira DO Ordering Provider: Declan Moreira DO Date of Service: 04/22/23 IR/IR nephrostomy tube chg UN: RT NEPH TUBE EXCHANGE Interventional radiology nephrostomy tube exchange Cumulative Air Kerma in mGy: 43.4 mGy. One image obtained. Right-sided nephrostomy tube was exchanged. 12 Bangladeshi nephrostomy tube utilized. Tube was advanced with a wire guidance. Contrast was administered with adequate position noted. IR/IR nephrostomy tube chg UN IMPRESSION: Successful exchange of the RIGHT percutaneous nephrostomy tube. Impression dictated by: Declan Moreira M.D.04/22/2023 11:20 AM Dictation Location: [place] [address] Transcribed By: [facility] 04/22/23 1120 Dictated By: Declan Moreira DO 04/22/23 1117 Signed By: 04/22/23 1120 Normal [facility] BUNon 12-24-2022 Urea nitrogen [Mass/Vol] 40.0 mg/dL Critically high 7.0-18.0 [facility] Comment on above: Performed By: #### H H #### [facility] [address] [place] [address] [address] Lilly Cordova CREATININEon 12-24-2022 Creatinine [Mass/Vol] 2.33 mg/dL Critically high 0.70-1.30 [facility] Comment on above: Performed By: #### H H #### [facility] [address] [place] [address] [address] Lilly Cordova EGFR-AF PUERTO RICAN 33 mL/min/1.73m2 Critically low >=60 [facility] Comment on above: Performed By: #### H H #### [facility] [address] [place], [place] [address] Dr. Lilly Cordova EGFR-NON AF PUERTO RICAN 27 mL/min/1.73m2 Critically low >=60 [facility] Comment on above: Performed By: #### H H #### [facility] [address], [place] [address] ABD/PELVIS WO CONon [...] by: GUSTAVO BUSTILLO Date: 2022-12-24 10:[address] [facility] XR KUB 1 VIEWon 11-12-2022 XR [...] by: BETZY JAMES Date: 2022-11-12 10:[address] [facility] CULTURE URINEon 11-07-2022 CULTURE URINE Isolate 1 Proteus mirabilis >100,000 cfu/mL of ORGANISM 1 Proteus mirabilis ANTIBIOTIC M.I.C RX STATUS Ampicillin >=32 R F Ampicillin/Sulbactam 8 S F Piperacillin/Tazobac piedra <=4 S F Cefazolin 8 S F Ceftazidime 2 S F Ceftriaxone <=1 S F Ertapenem 2 R F Imipenem 2 R F Amikacin 4 S F Gentamicin <=1 S F Tobramycin <=1 S F Ciprofloxacin <=0.25 S F Levofloxacin 1 S F Nitrofurantoin 64 R F Trimethoprim/Sulfame thoxazole <=[address] [facility] Comment on above: Performed By: #### H H #### [facility] [address] [place] [address] [address] Lilly Cordova PTH INTACTon 11-05-2022 PTH, Intact 46 pg/mL Normal 15-65 [facility] Comment on above: Performed By: #### P THINT #### [facility] [address] [place] [address] [address] Lilly Cordova ALBUMINon 11-04-2022 Albumin [Mass/Vol] 3.6 g/dL Normal 3.4-5.0 [facility] Comment on above: Performed By: #### B MP, PHOS, MG, ALB, URIC #### [facility] [address] [place] [address] Dr. Lilly Cordova HEMOGRAM AND PLATELon 2022 Hematocrit (Bld) [Volume fraction] 34.7 % Critically low 42.0-54.0 [facility] Comment on above: Performed By: #### H H #### [facility] [address] [place] [address] Dr. Lilly Cordova Hemoglobin (Bld) [Mass/Vol] 11.7 g/dL Critically low 14.0-18.0 [facility] Comment on above: Performed By: #### H H #### [facility] [address] [place] [address] Dr. Lilly Cordova MCH (RBC) [Entitic mass] 31.0 pg Normal 25.9-34.0 [facility] Comment on above: Performed By: #### H H #### [facility] [address] [place] [address] Dr. Lilly Cordova MCHC (RBC) [Mass/Vol] 33.7 g/dL Normal 29.9-35.2 [facility] Comment on above: Performed By: #### H H #### [facility] [address] [place] [address] Dr. Lilly Cordova MCV (RBC) [Entitic vol] 91.8 fL Normal 80.0-94.0 [facility] Comment on above: Performed By: #### H H #### [facility] [address] [place] [address] Dr. Lilly Cordova PLT 129 103/ul Critically low 150-450 [facility] Comment on above: Performed By: #### H H #### [facility] [address] [place] [address] Dr. Lilly Cordova RBC 3.78 106/ul Critically low 4.70-6.10 [facility] [place] Comment on above: Performed By: #### H H #### [facility] [address] [place] [address] Dr. Lilly Cordova WBC 6.2 103/ul Normal 4.0-11.0 [facility] Comment on above: Performed By: #### H H #### [facility] [address] [place] [address] Dr. Lilly Cordova MAGNESIUMon 11-04-2022 Magnesium [Mass/Vol] 1.5 mg/dL Critically low 1.8-2.4 [facility] Comment on above: Performed By: #### B MP, PHOS, MG, ALB, URIC #### [facility] [address] [place] [address] Dr. Lilly Cordova MICROALB CREAT RATIO RANDOMo n 11-04-2022 mALB 13.5 mg/L Normal <=30.0 [facility] Comment on above: Performed By: #### M CRR #### [facility] [address] [place] [address] Dr. Lilly Cordova MALB CR RATIO 238.9 mg/g Critically high 0.0-29.9 [facility] Comment on above: Performed By: #### M CRR #### [facility] [address] [place] [address] Dr. Lilly Cordova MALB CR RATIO RANGE SEE BELOW Normal [facility] Comment on above: Result Comment: NO M ICROALBUMINURIA 0-29 MG/G CLINICAL MICROALBUMINURIA 30-300 MG/G MACROALBUMINURIA >300 MG/G Performed By: #### M CRR #### [facility] [address] [place] [address] Dr. Lilly Cordova URINE CREAT 56.52 mg/dL Normal 20.00-300.00 [facility] Comment on above: Performed By: #### M CRR #### [facility] [address] [place] [address] Dr. Lilly Cordova PHOSPHORUSon 11-04-2022 Phosphate [Mass/Vol] 3.0 mg/dL Normal 2.6-4.7 [facility] Comment on above: Performed By: #### B MP, PHOS, MG, ALB, URIC #### [facility] [address] [place] [address] Dr. Lilly Cordova PROF CHEM 8 (BAS METB)on Anion gap [Moles/Vol] 13.0 mmol/L Normal [facility] Comment on above: Performed By: #### B MP, PHOS, MG, ALB, URIC #### [facility] [address] [place] [address] Dr. Lilly Cordova Calcium [Mass/Vol] 9.1 mg/dL Normal 8.5-10.1 [facility] Comment on above: Performed By: #### B MP, PHOS, MG, ALB, URIC #### [facility] [address] [place] [address] Dr. Lilly Cordova Chloride [Moles/Vol] 102 mmol/L Normal 98-107 [facility] Comment on above: Performed By: #### B MP, PHOS, MG, ALB, URIC #### [facility] [address] [place] [address] Dr. Lilly Cordova CO2 [Moles/Vol] 25.0 mmol/L Normal 21.0-32.0 [facility] Comment on above: Performed By: #### B MP, PHOS, MG, ALB, URIC #### [facility] [address] [place] [address] Dr. Lilly Cordova Creatinine [Mass/Vol] 1.79 mg/dL Critically high 0.70-1.30 [facility] Comment on above: Performed By: #### B MP, PHOS, MG, ALB, URIC #### [facility] [address] [place] [address] Dr. Lilly Cordova EGFR-AF PUERTO RICAN 45 mL/min/1.73m2 Critically low >=60 [facility] Comment on above: Performed By: #### B MP, PHOS, MG, ALB, URIC #### [facility] [address] [place] [address] Dr. Lilly Cordova EGFR-NON AF PUERTO RICAN 37 mL/min/1.73m2 Critically low >=60 [facility] Comment on above: Performed By: #### B MP, PHOS, MG, ALB, URIC #### [facility] [address] [place] [address] Dr. Lilly Cordova Glucose [Mass/Vol] 106 mg/dL Normal 74-106 [facility] Comment on above: Performed By: #### B MP, PHOS, MG, ALB, URIC #### [facility] [address] [place] [address] Dr. Lilly Cordova Potassium [Moles/Vol] 5.0 mmol/L Normal 3.5-5.1 [facility] Comment on above: Performed By: #### B MP, PHOS, MG, ALB, URIC #### [facility] [address] [place] [address] Dr. Lilly Cordova Sodium [Moles/Vol] 135 mmol/L Critically low 136-145 [facility] Comment on above: Performed By: #### B MP, PHOS, MG, ALB, URIC #### [facility] [address] [place] [address] Dr. Lilly Cordova Urea nitrogen [Mass/Vol] 35.0 mg/dL Critically high 7.0-18.0 [facility] Comment on above: Performed By: #### B MP, PHOS, MG, ALB, URIC #### [facility] [address] [place] [address] Dr. Lilly Cordova Urea nitrogen/Creatinine [Mass ratio] 19.6 mg/mg Normal [facility] Comment on above: Performed By: #### B MP, PHOS, MG, ALB, URIC #### [facility] [address] [place] [address] Dr. Lilly Cordova UA (CLEAN/CATCH) GEOSPATIAL INTELLIGENCE ANALYST/MICRO I F IND.on 11-04-2022 Bilirubin Ql (U) Negative Normal NEGATIVE [facility] Comment on above: Performed By: #### H H #### [facility] [address] [place] [address] Dr. Lilly Cordova Clarity (U) CLEAR Normal CLEAR [facility] Comment on above: Performed By: #### H H #### [facility] [address] [place] [address] Dr. Lilly Cordova Color (U) LT. YELLOW Normal YELLOW [facility] Comment on above: Performed By: #### H H #### [facility] [address] [address] [address] Lilly Cordova Glucose Ql (U) Negative Normal NEGATIVE [facility] Comment on above: Performed By: #### H H #### [facility] [address] [address] [address] Lilly Cordova Hemoglobin Ql (U) MODERATE Abnormal NEGATIVE [facility] Comment on above: Performed By: #### H H #### [facility] [address] [address] [address] Lilly Cordova Ketones Ql (U) Negative Normal NEGATIVE [facility] Comment on above: Performed By: #### H H #### [facility] [address] [place] [address] Dr. Lilly Cordova LEUKOCYTES MODERATE Abnormal NEGATIVE [facility] Comment on above: Performed By: #### H H #### [facility] [address] [address] [address] Lilly Cordova Nitrite Ql (U) Positive Abnormal NEGATIVE [facility] Comment on above: Performed By: #### H H #### [facility] [address] [place] [address] Dr. Lilly Cordova pH (U) 7.5 [pH] Normal 5-9 [facility] Comment on above: Performed By: #### H H #### [facility] [address] [place] [address] Dr. Lilly Cordova SPEC GRAVITY 1.010 Normal 1.005-<=1.[address] [facility] Comment on above: Performed By: #### H H #### [facility] [address] [address] [address] Lilly Cordova UA PROTEIN 30 mg/dl Abnormal NEGATIVE/ TRACE The [facility] Comment on above: Performed By: #### H H #### [facility] [address] [place] [address] Dr. Lilly Cordova UR MICRO IND INDICATED Normal The [facility] Comment on above: Performed By: #### H H #### [facility] [address] [place] [address] Dr. Lilly Cordova Urobilinogen Qn (U) 0.2 {Raffi'U}/dL Normal 0.2 - 1. 0 The [facility] Comment on above: Performed By: #### H H #### [facility] [address] [place] [address] Dr. Lilly Cordova URIC ACID SERUMon 11-04-2022 Urate [Mass/Vol] 5.2 mg/dL Normal 3.5-7.2 [facility] Comment on above: Performed By: #### B MP, PHOS, MG, ALB, URIC #### [facility] [address] [place] [address] Dr. Lilly Cordova URINE MICROSCOPIC ONLYon BACTERIA TRACE Abnormal NONE SEEN The [facility] Comment on above: Performed By: #### H H #### [facility] [address] [place] [address] Dr. Lilly Cordova Bacteria identified Cx Nom (U) INDICATED Normal The [facility] Comment on above: Performed By: #### H H #### [facility] [address] [place] [address] Dr. Lilly Cordova CAST NONE SEEN Normal NONE SEEN [facility] Comment on above: Performed By: #### H H #### [facility] [address] [place] [address] Dr. Lilly Cordova Crystals LM Nom (Urine sed) NONE SEEN Normal NONE SEEN [facility] Comment on above: Performed By: #### H H #### [facility] [address] [place] [address] Dr. Lilly Cordova Epithelial cells LM Ql (Urine sed) NONE SEEN Normal NONE SEEN /RARE The [facility] Comment on above: Performed By: #### H H #### [facility] [address] [place] [address] Dr. Lilly Cordova MUCOUS NONE SEEN Normal NONE SEEN The [facility] Comment on above: Performed By: #### H H #### [facility] [address] [place] [address] Dr. Lilly Cordova RBC 2-5 Abnormal 0-2 [facility] Comment on above: Performed By: #### H H #### [facility] [address] [place] [address] Dr. Lilly Cordova WBC 10-20 Abnormal NONE SEEN The [facility] Comment on above: Performed By: #### H H #### [facility] [address] [place] [address] Dr. Lilly Cordova VITAMIN D 25 OHon 11-04-2022 VIT D 25-OH 58.3 ng/mL Normal The [facility] Comment on above: Performed By: #### H H #### [facility] [address] [place] [address] Dr. Lilly Cordova VIT D RANGES SEE BELOW Normal [facility] Comment on above: Result Comment: <20 ng/mL Vit D deficient 20 - <30 ng/mL Vit D insufficient 30 - 100 ng/mL Vit D sufficient >100 ng/mL Potential Toxicity Performed By: #### H H #### [facility] [address] [place] [address] Dr. Lilly Cordova HEMOGLOBINon 07-10-2022 Hemoglobin (Bld) [Mass/Vol] 11.6 g/dL Critically low 14.0-18.0 [facility] Comment on above: Performed By: #### H GB #### [facility] [address] [place] [address] Dr. Lilly Cordova NM STRESS/REST MULTIon 06-03 NM STRESS/REST MULTI Patient: ARIAN OLIVERA Exam Date: 06/03/2022 : 1940 Gender:M Ordering : ZOILA ROQUE [facility] Admission #: [id number] Family : Order #: [id number] CLICK HERE TO VIEW EXAM RADIOLOGY REPORT [...] MD on 06/04/2022 at 07:50 Normal The [facility] PROF CHEM 8 (BAS METB)on Anion gap [Moles/Vol] 11.2 mmol/L Normal [facility] Comment on above: Performed By: #### H H #### [facility] [address] [address] [address] Lilly Cordova Calcium [Mass/Vol] 8.8 mg/dL Normal 8.5-10.1 [facility] Comment on above: Performed By: #### H H #### [facility] [address] [address] [address] Lilly Cordova Chloride [Moles/Vol] 103 mmol/L Normal 98-107 [facility] Comment on above: Performed By: #### H H #### [facility] [address] [address] [address] Lilly Cordova CO2 [Moles/Vol] 25.2 mmol/L Normal 21.0-32.0 [facility] Comment on above: Performed By: #### H H #### [facility] [address] [address] [address] Lilly Cordova Creatinine [Mass/Vol] 1.87 mg/dL Critically high 0.70-1.30 [facility] Comment on above: Performed By: #### H H #### [facility] [address] [address] [address] Lilly Cordova EGFR-AF PUERTO RICAN 42 mL/min/1.73m2 Critically low >=60 [facility] Comment on above: Performed By: #### H H #### [facility] [address] [address] [address] Lilly Cordova EGFR-NON AF PUERTO RICAN 35 mL/min/1.73m2 Critically low >=60 [facility] Comment on above: Performed By: #### H H #### [facility] [address] [address] [address] Lilly Cordova Glucose [Mass/Vol] 126 mg/dL Critically high 74-106 [facility] Comment on above: Performed By: #### H H #### [facility] [address] [address] [address] Lilly Cordova Potassium [Moles/Vol] 4.4 mmol/L Normal 3.5-5.1 [facility] Comment on above: Performed By: #### H H #### [facility] [address] [address] [address] Lilly Cordova Sodium [Moles/Vol] 135 mmol/L Critically low 136-145 [facility] Comment on above: Performed By: #### H H #### [facility] [address] [address] [address] Lilly Cordova Urea nitrogen [Mass/Vol] 32.0 mg/dL Critically high 7.0-18.0 [facility] Comment on above: Performed By: #### H H #### [facility] [address] [address] [address] Lilly Cordova Urea nitrogen/Creatinine [Mass ratio] 17.1 mg/mg Normal [facility] Comment on above: Performed By: #### H H #### [facility] [address] [place] [address] Dr. Lilly Cordova PTH INTACTon 05-07-2022 PTH, Intact 28 pg/mL Normal 15-65 [facility] Comment on above: Performed By: #### P THINT #### [facility] [address] [place] [address] Dr. Lilly Cordova HEMOGRAM AND PLATELon 2021 Hematocrit (Bld) [Volume fraction] 34.2 % Critically low 42.0-54.0 [facility] Comment on above: Performed By: #### H H #### [facility] [address] [place] [address] Dr. Lilly Cordova Hemoglobin (Bld) [Mass/Vol] 11.5 g/dL Critically low 14.0-18.0 [facility] Comment on above: Performed By: #### H H #### [facility] [address] [place] [address] Dr. Lilly Cordova MCH (RBC) [Entitic mass] 31.3 pg Normal 25.9-34.0 [facility] Comment on above: Performed By: #### H H #### [facility] [address] [place] [address] Dr. Lilly Cordova MCHC (RBC) [Mass/Vol] 33.6 g/dL Normal 29.9-35.2 [facility] Comment on above: Performed By: #### H H #### [facility] [address] [place] [address] Dr. Lilly Cordova MCV (RBC) [Entitic vol] 93.2 fL Normal 80.0-94.0 [facility] Comment on above: Performed By: #### H H #### [facility] [address] [place] [address] Dr. Lilly Cordova PLT 130 103/ul Critically low 150-450 [facility] Comment on above: Performed By: #### H H #### [facility] [address] [place] [address] Dr. Lilly Cordova RBC 3.67 106/ul Critically low 4.70-6.[address] [facility] Comment on above: Performed By: #### H H #### [facility] [address] [place] [address] Dr. Lilly Cordova WBC 6.5 103/ul Normal 4.0-11.0 [facility] Comment on above: Performed By: #### H H #### [facility] [address] [place] [address] Dr. Lilly Cordova MAGNESIUMon 05-06-2022 Magnesium [Mass/Vol] 1.4 mg/dL Critically low 1.8-2.4 [facility] Comment on above: Performed By: #### P THINT #### [facility] [address] [place] [address] Dr. Lilly Cordova PHOSPHORUSon 05-06-2022 Phosphate [Mass/Vol] 3.0 mg/dL Normal 2.6-4.7 [facility] Comment on above: Performed By: #### P THINT #### [facility] [address] [place] [address] Dr. Lilly Cordova PROF CHEM 8 (BAS METB)on Anion gap [Moles/Vol] 10.5 mmol/L Normal [facility] Comment on above: Performed By: #### P THINT #### [facility] [address] [place] [address] Dr. Lilly Cordova Calcium [Mass/Vol] 9.1 mg/dL Normal 8.5-10.1 [facility] Comment on above: Performed By: #### P THINT #### [facility] [address] [place] [address] Dr. Lilly Cordova Chloride [Moles/Vol] 103 mmol/L Normal 98-107 The [facility] Comment on above: Performed By: #### P THINT #### [facility] [address] [place] [address] Dr. Lilly Cordova CO2 [Moles/Vol] 27.9 mmol/L Normal 21.0-32.0 [facility] Comment on above: Performed By: #### P THINT #### [facility] [address] [place] [address] Dr. Lilly Cordova Creatinine [Mass/Vol] 1.77 mg/dL Critically high 0.70-1.30 [facility] Comment on above: Performed By: #### P THINT #### [facility] [address] [address] [address] Lilly Cordova EGFR-AF PUERTO RICAN 45 mL/min/1.73m2 Critically low >=60 [facility] Comment on above: Performed By: #### P THINT #### [facility] [address] [address] [address] Lilly Cordova EGFR-NON AF PUERTO RICAN 37 mL/min/1.73m2 Critically low >=60 [facility] Comment on above: Performed By: #### P THINT #### [facility] [address] [address] [address] Lilly Cordova Glucose [Mass/Vol] 98 mg/dL Normal 74-106 [facility] Comment on above: Performed By: #### P THINT #### [facility] [address] [address] [address] Lilly Cordova Potassium [Moles/Vol] 5.4 mmol/L Critically high 3.5-5.1 [facility] Comment on above: Performed By: #### P THINT #### [facility] [address] [place] [address] Dr. Lilly Cordova Sodium [Moles/Vol] 136 mmol/L Normal 136-145 [facility] Comment on above: Performed By: #### P THINT #### [facility] [address] [address] [address] Lilly Cordova Urea nitrogen [Mass/Vol] 30.0 mg/dL Critically high 7.0-18.0 [facility] Comment on above: Performed By: #### P THINT #### [facility] [address] [place] [address] Dr. Lilly Cordova Urea nitrogen/Creatinine [Mass ratio] 16.9 mg/mg Normal [facility] Comment on above: Performed By: #### P THINT #### [facility] [address] [place] [address] Dr. Lilly Cordova URIC ACID SERUMon 05-06-2022 Urate [Mass/Vol] 5.2 mg/dL Normal 3.5-7.2 [facility] Comment on above: Performed By: #### P THINT #### [facility] [address] [place] [address] Dr. Lilly Cordova VITAMIN D 25 OHon 05-06-2022 VIT D 25-OH 56.4 ng/mL Normal [facility] Comment on above: Performed By: #### V ITAD #### [facility] [address] [place] [address] Dr. Lilly Cordova VIT D RANGES SEE BELOW Normal [facility] Comment on above: Result Comment: <20 ng/mL Vit D deficient 20 - <30 ng/mL Vit D insufficient 30 - 100 ng/mL Vit D sufficient >100 ng/mL Potential Toxicity Performed By: #### V ITAD #### [facility] [address] [place] [address] Dr. Lilly Cordova ECHOCARDIO M/2D COMPLETEon 0 04-16-2022 ECHOCARDIO M/2D COMPLETE Patient: ARIAN OLIVERA Exam Date: 04/16/2022 : 1940 Gender:M Ordering : OLEKSANDR CROSS Admission #: [id number] Family : DR BENSON MANCINI D.O. Order #: [id number] CLICK HERE TO VIEW EXAM ECHOCARDIOGRAM REPORT [...] Emanuel Joshi M.D. on 04/18/2022 at 16:09 [facility] Vital Signs Date Time Vital Sign Value Performing Clinician Facility 04-02-2024 09:59-0400 Body height 182.88 cm DO Benson Ball Work Phone: [facility] 04-02-2024 09:59-0400 Body mass index (BMI) [Ratio] 22.2 kg/m2 DO Benson Ball Work Phone: [facility] 04-02-2024 09:59-0400 Body weight 74.44 kg DO Benson Ball Work Phone: [facility] 04-02-2024 09:59-0400 Diastolic blood pressure 76 mm[Hg] DO Benson Ball Work Phone: [facility] 04-02-2024 09:59-0400 Heart rate 85 /min DO Benson Ball Work Phone: [facility] 04-02-2024 09:59-0400 Respiratory rate 12 /min DO Benson Ball Work Phone: [facility] 04-02-2024 09:59-0400 Systolic blood pressure 176 mm[Hg] DO Benson Ball Work Phone: [facility] 12-31-2023 10:49-0400 Body height 182.88 cm DO Benson Ball Work Phone: [facility] 12-31-2023 10:49-0400 Body mass index (BMI) [Ratio] 23.3 kg/m2 DO Benson Ball Work Phone: [facility] 12-31-2023 10:49-0400 Body weight 78.24 kg DO Benson Ball Work Phone: [facility] 12-31-2023 10:49-0400 Diastolic blood pressure 80 mm[Hg] DO Benson Ball Work Phone: [facility] 12-31-2023 10:49-0400 Heart rate 86 /min DO Benson Ball Work Phone: [facility] 12-31-2023 10:49-0400 Respiratory rate 12 /min DO Benson Ball Work Phone: [facility] 12-31-2023 10:49-0400 Systolic blood pressure 193 mm[Hg] DO Benson Ball Work Phone: [facility] 09-30-2023 10:26-0500 Body height 182.88 cm DO Benson Ball Work Phone: [facility] 09-30-2023 10:26-0500 Body mass index (BMI) [Ratio] 23.6 kg/m2 DO Benson Ball Work Phone: [facility] 09-30-2023 10:26-0500 Body weight 79.09 kg DO Benson Ball Work Phone: [facility] 09-30-2023 10:26-0500 Diastolic blood pressure 65 mm[Hg] DO Benson Ball Work Phone: [facility] 09-30-2023 10:26-0500 Heart rate 93 /min DO Benson Ball Work Phone: [facility] 09-30-2023 10:26-0500 Respiratory rate 12 /min DO Benson Ball Work Phone: [facility] 09-30-2023 10:26-0500 Systolic blood pressure 167 mm[Hg] DO Benson Ball Work Phone: [facility] 08-05-2023 05:03-0500 Diastolic blood pressure 77 mm[Hg] DO Benson Ball Work Phone: [facility] 08-05-2023 05:03-0500 Heart rate 97 /min DO Benson Ball Work Phone: [facility] 08-05-2023 05:03-0500 Respiratory rate 18 /min DO Benson Ball Work Phone: [facility] 08-05-2023 05:03-0500 SaO2% (BldA) [Mass fraction] 99 % DO Benson Ball Work Phone: [facility] 08-05-2023 05:03-0500 Systolic blood pressure 173 mm[Hg] DO Benson Ball Work Phone: [facility] 08-05-2023 00:36-0500 Body height 182.88 cm DO Benson Ball Work Phone: [facility] 08-05-2023 00:36-0500 Body temperature 97.5 [degF] DO Benson Ball Work Phone: [facility] 08-05-2023 00:36-0500 Body weight 80.9 kg DO Benson Ball Work Phone: [facility] 07-29-2023 10:30-0500 Body height 177.8 cm Benson Ball Other [facility] [employer] Other 07-29-2023 10:30-0500 Body mass index (BMI) [Ratio] 25.57 kg/m2 Benson Ball Other [employer] Other 07-29-2023 10:30-0500 Body weight 80.83 kg Benson Ball Other [facility] Other 07-29-2023 10:30-0500 Diastolic blood pressure 73 mm[Hg] Benson Ball Other [facility] Other 07-29-2023 10:30-0500 Respiratory rate 12 /min Benson Ball Other [facility] Other 07-29-2023 10:30-0500 Systolic blood pressure 191 mm[Hg] Benson Ball Other [facility] Other 04-25-2023 11:30-0400 Body height 177.8 cm Benson Ball Other [facility] Other 04-25-2023 11:30-0400 Body mass index (BMI) [Ratio] 25.42 kg/m2 Benson Ball Other [facility] Other 04-25-2023 11:30-0400 Body weight 80.38 kg Benson Ball Other [facility] Other 04-25-2023 11:30-0400 Diastolic blood pressure 80 mm[Hg] Benson Ball Other [facility] Other 04-25-2023 11:30-0400 Respiratory rate 12 /min Benson Ball Other [facility] Other 04-25-2023 11:30-0400 Systolic blood pressure 150 mm[Hg] Benson Ball Other [facility] Other 01-23-2023 11:00-0400 Body height 177.8 cm Benson Ball Other [facility] Other 01-23-2023 11:00-0400 Body mass index (BMI) [Ratio] 25.57 kg/m2 Benson Ball Other [facility] Other 01-23-2023 11:00-0400 Body weight 80.83 kg Benson Ball Other [facility] Other 01-23-2023 11:00-0400 Diastolic blood pressure 57 mm[Hg] Benson Ball Other [facility] Other 01-23-2023 11:00-0400 Respiratory rate 12 /min Benson Ball Other [facility] Other 01-23-2023 11:00-0400 Systolic blood pressure 146 mm[Hg] Benson Ball Other [facility] Other 10-23-2022 12:00-0400 Body height 177.8 cm Benson Ball Other [facility] Other 10-23-2022 12:00-0400 Body mass index (BMI) [Ratio] 25.82 kg/m2 Benson Ball Other [facility] Other 10-23-2022 12:00-0400 Body weight 81.65 kg Benson Ball Other [facility] Other 10-23-2022 12:00-0400 Diastolic blood pressure 72 mm[Hg] Benson Ball Other [employer] Other 10-23-2022 12:00-0400 Respiratory rate 12 /min Benson Ball Other [employer] Other 10-23-2022 12:00-0400 Systolic blood pressure 158 mm[Hg] Benson Ball Other [employer] Other 07-03-2022 11:14-0500 Body weight 0 kg DO Benson Ball Work Phone: [facility] 03-26-2022 15:15-0400 Body weight 0 kg DO Benson Ball Work Phone: [facility] 12-19-2021 10:04-0400 Body weight 0 kg DO Ebnson Ball Work Phone: [facility] Encounters Encounter Date Encounter Type Care Provider Facility Start: 04-19-2024 End: 04-19-2024 ambulatory [facility] Start: 04-02-2024 End: 04-02-2024 ambulatory DO Benson Ball Work Phone: [facility] Work Phone: Start: 04-02-2024 End: 04-02-2024 Patient encounter procedure DO Benson Mancini Work Phone: [facility] Work Phone: Start: 04-01-2024 End: 04-01-2024 ambulatory Hudson BLANCA [facility] Start: 04-01-2024 End: 04-01-2024 Lab Drop off Hudson BLANCA [facility] Start: 04-01-2024 End: 04-01-2024 ambulatory Hudson BLANCA Facility:[facility] [place] Start: 04-01-2024 End: 04-01-2024 Patient encounter procedure Hudson BLANCA [facility] Start: 02-13-2024 End: 02-13-2024 Admission to same day surgery center DO Benson Live Work Phone: [facility] Work Phone: Start: 02-13-2024 End: 02-13-2024 ambulatory DO Benson Mancini Work Phone: [facility] Work Phone: Start: 02-09-2024 End: 02-09-2024 ambulatory Hudson BLANCA Facility:[id number] Start: 02-02-2024 End: 02-02-2024 ambulatory Hudson LBANCA Facility:[facility] Start: 02-02-2024 End: 02-02-2024 Lab Drop off Hudson BLANCA [facility] Start: 02-02-2024 End: 02-02-2024 ambulatory Hudson BLANCA Facility:[facility] Start: 02-02-2024 End: 02-02-2024 Patient encounter procedure Hudson BLANCA [facility] Start: 12-31-2023 End: 12-31-2023 ambulatory DO Benson Mancini Work Phone: [facility] Work Phone: Start: 12-31-2023 End: 12-31-2023 Patient encounter procedure DO Benson Ball Work Phone: [facility] Work Phone: Start: 11-21-2023 End: 11-21-2023 Admission to same day surgery center DO Benson Mancini Work Phone: [facility] Work Phone: Start: 11-21-2023 End: 11-21-2023 ambulatory DO Benson Mancini Work Phone: [facility] Work Phone: Start: 11-03-2023 Non-patient / Non-visit DO Boone Mancini Work Phone: [facility] [employer] Work Phone: Start: 10-08-2023 Non-patient / Non-visit DO Boone Mancini Work Phone: [facility] Work Phone: Start: 10-07-2023 End: 10-07-2023 ambulatory RAJENDRA NUÑEZ [facility] Start: 09-30-2023 End: 09-30-2023 Patient encounter procedure DO Benson Ball Work Phone: [facility] Work Phone: Start: 08-14-2023 End: 08-14-2023 Emergency department patient visit LANEY DOWLING [facility] Start: 08-05-2023 End: 08-05-2023 ambulatory Benson Mancini Other [facility] [employer] Other Start: 08-05-2023 Telephone encounter Benson Herr [facility] Start: 08-05-2023 End: 08-05-2023 Emergency department patient visit DO Benson Mancini Work Phone: [facility] Work Phone: Start: 08-01-2023 End: 08-01-2023 ambulatory Benson Mancini Other [facility] Other Start: 08-01-2023 Telephone encounter Benson Mancini [facility] Start: 07-29-2023 End: 07-29-2023 ambulatory Benson Mancini Other [facility] Other Start: 07-29-2023 Patient encounter procedure Benson Mancini [facility] Start: 07-29-2023 Telephone encounter Benson FRAZIER [facility] Start: 07-25-2023 End: 07-25-2023 Admission to same day surgery center DO Benson Mancini Work Phone: [facility] Work Phone: Start: 07-25-2023 End: 07-25-2023 ambulatory DO Benson Mancini Work Phone: [facility] Work Phone: Start: 05-28-2023 End: 05-28-2023 ambulatory Benson Mancini Other [facility] Other Start: 05-28-2023 Telephone encounter Benson Live FRAZIER [facility] Start: 04-25-2023 End: 04-25-2023 ambulatory Benson Mancini Other [facility] Other Start: 04-25-2023 Office outpatient vi sit 25 minutes Benson Mancini [facility] Start: 04-22-2023 End: 04-22-2023 ambulatory Benson Mancini Facility:[facility] Start: 03-28-2023 End: 03-28-2023 ambulatory Benson Mancini Other [facility] Other Start: 03-28-2023 Telephone encounter Benson FRAZIER [facility] Start: 02-11-2023 End: 02-11-2023 ambulatory Benson Mancini Other [facility] Other Start: 02-11-2023 Telephone encounter Benson Mancini [facility] Start: 01-29-2023 End: 01-29-2023 ambulatory Benson Ball Other [facility] Other Start: 01-29-2023 Telephone encounter Benson Mancini [facility] Start: 01-23-2023 End: 01-23-2023 ambulatory Benson Mancini Other [facility] Other Start: 01-23-2023 Office outpatient vi sit 25 minutes Benson Mancini [facility] Start: 01-21-2023 End: 01-21-2023 Admission to same day surgery center DO Benson Ball Work Phone: [facility] Work Phone: Start: 01-21-2023 End: 01-21-2023 ambulatory DO Benson Ball Work Phone: [facility] Work Phone: Start: 01-13-2023 End: 01-13-2023 ambulatory Benson Mancini Other [facility] Other Start: 01-13-2023 Telephone encounter Benson Mancini [facility] Start: 12-25-2022 End: 12-25-2022 ambulatory Benson Mancini Other [facility] Other Start: 12-25-2022 Telephone encounter Benson Live [facility] Start: 12-24-2022 Telephone encounter Benson Live [facility] Start: 12-24-2022 End: 12-25-[address] HUDSON BLANCA . [employer] Other Start: 12-09-2022 Telephone encounter Benson Live [facility] Start: 12-09-2022 End: 12-09-[address] HUDSON BLANCA . Loc[facility] [employer] Other Start: 12-05-2022 End: 12-05-2022 ambulatory Benson Mancini Other [facility] Other Start: 12-05-2022 Telephone encounter Benson Mancini [facility] Start: 12-03-2022 End: 12-03-2022 Patient encounter procedure Hudson BLANCA [facility] Start: 11-12-2022 End: 11-13-[address] BENSON MANCINI Facility:[facility] Start: 11-06-2022 End: 11-06-2022 ambulatory Benson Mancini Other [facility] Other Start: 11-06-2022 Telephone encounter Benson Mancini [facility] Start: 11-04-2022 End: 11-04-2022 Lab Drop off Hudson BLANCA [facility] Start: 11-04-2022 End: 11-05-[address] DOCTOR BURTON [facility] [employer] Other Start: 11-04-2022 Telephone encounter Benson Mancini [facility] Start: 11-04-2022 End: 11-04-2022 Patient encounter procedure Hudson BLANCA [facility] Start: 10-31-2022 End: 11-01-[address] BENSON MANCINI Facility:[facility] Start: 10-24-2022 Telephone encounter Benson FRAZIER [facility] Start: 10-24-2022 End: 10-25-[address] BENSON MANCINI [facility] [employer] Other Start: 10-23-2022 End: 10-23-2022 ambulatory Benson Mancini Other [facility] Other Start: 10-23-2022 Office outpatient vi sit 25 minutes Benson Mancini [facility] Start: 10-21-2022 End: 10-21-2022 Lab Drop off Hudson R THEO [facility] Start: 10-21-2022 End: 10-21-2022 Patient encounter procedure XXXX NONE [facility] Start: 10-14-2022 End: 10-14-2022 Admission to same day surgery center DO Benson Mancini Work Phone: [facility] Work Phone: Start: 10-14-2022 End: 10-14-2022 ambulatory DO Benson Mancini Work Phone: [facility] Work Phone: Start: 07-23-2022 End: 07-23-2022 Admission to same day surgery center DO Benson Mancini Work Phone: [facility] Work Phone: Start: 07-10-2022 End: 07-11-[address] EMANUEL JOSHI Facility:[facility] Start: 06-19-2022 End: 06-19-2022 Lab Drop off CHARLENE Kian DIETZRY [facility] Start: 06-19-2022 End: 06-19-2022 Patient encounter procedure Farideh Gong [facility] Start: 06-03-2022 End: 06-04-[address] KANNAN GONSALEZ Facility:[facility] Start: 05-14-2022 End: 05-15-[address] SALTER LISTED REQUEST Facility:[facility] Start: 05-06-2022 End: 05-07-[address] BENSON MANCINI Facility:[facility] Start: 04-29-2022 End: 04-29-[address] BENSON MANCINI Facility:[facility] Start: 04-26-2022 End: 04-26-2022 Patient encounter procedure Hudson BLANCA [facility] Start: 04-16-2022 End: 04-17-[address] BENSON MANCINI Facility:[facility] Start: 04-08-2022 End: 04-08-2022 Patient encounter procedure Hudson BLANCA [facility] Start: 04-05-2022 End: 04-05-2022 Admission to same day surgery center DO Benson Mancini Work Phone: [facility] Start: 01-02-2022 End: 01-02-2022 Admission to same day surgery center DO Benson Mancini Work Phone: [facility] Start: 11-21-2021 End: 11-21-2021 Patient encounter procedure Farideh Shireen Gong [facility] Start: 11-02-2021 End: 11-02-2021 Patient encounter procedure Hudson BLANCA [facility] Start: 10-22-2021 Adult health examination Benson Mancini Other [facility] Other Start: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
== END 2024-05-03 07:43 | disposition home or self-care (01) ==
LOC: NM 07:43
PROVIDERS: PCP Internal Medicine; Visit Provider Internal Medicine Interventional Cardiology
DX: R06.09 Other forms of dyspnea (principal); I25.10 Atherosclerotic heart disease of native coronary artery without angina pectoris
CPT/HCPCS: 78452; A9500

== ENCOUNTER 2024-05-05 07:39 | Outpatient (OUT) | payer MEDICARE, SELFPAY ==
--- NOTE | 2024-05-05 07:39 | PCN_ITS ---
CARDIAC STRESS TEST ? Requesting Physician:? Emanuel Gregg M.D. ? Procedure Date:? 05/05/2024 ? PERFORMING PROVIDER:? Tao Berrios M.D. ? INDICATIONS:? Dyspnea on exertion, CAD. ? STRESS TEST TYPE:? Lexiscan stress test. ? Resting heart rate:? 75 beats per minute. Max heart rate:? 95 beats per minute. Peak maximal heart rate percentage:? 68% Resting blood pressure:? 178/72 Maximum blood pressure:? 128/72 ? CONCLUSION:? 1.? Resting EKG abnormal with right bundle branch block. 2.? Patient had EKG changes post Lexiscan infusion meeting the criteria for ischemia.? Additionally, patient had significant PVC burden, including sustaining bigeminy pattern lasting well into recovery. 3.? Additionally, patient complained of chest pain approximately 6 minutes after Lexiscan infusion.? Chest pain < > (unclear).? This resolved after 12 minutes of rest.? 4.? Baseline EKG portion, this is a high risk study. 5.? Nuclear myocardial perfusion imaging will be interpreted and reported in a separate report.? Please refer to this report for further information.6.? Clinical correlation advised. MTDD
--- OUTSIDE RECORDS SUMMARY | 2024-05-05 07:43 | XMS_ITS | CCD ---
Author Organization [facility] Care Team Providers Care Medicine And Health Service Manager Name Role Phone RICHIE WALTON Attending Unavailable RICHIE WALTON Admitting Unavailable BENSON MANCINI Referring Unavailable LIVE, BENSON Primary Care Unavailable TERESITA BLACKWELL Primary Care Physician DO Benson Mancini Primary Care Provider MD Steven Coronado Attending Provider DO Benson Mancini Primary Care Provider [phone] DO Declan Moreira Attending Provider Unavailable Live, DO Knowles Primary Care Provider [phone] MD Hudson Blanca Attending Provider [phone] Harish, DO Manriquez Attending Provider Unavailable Benson Mancini Unavailable DR [...] Primary Care Unavailable GUSTAVO BUSTILLO Consulting Unavailable BLACNA ., DR MCCLURE Attending Unavailable BLANCA ., [...] Care Provider MD Hudson Blanca Attending Provider [phone] DO Benson Mancini Primary Care Provider MD Hudson Blanca Attending Provider MD Jose D Hercules Jr Emergency Provider DO Benson Mancini Primary Care Provider Harish, DO Manriquez Attending Provider Unavailable MD Hudson Blanca Attending Provider [phone] Hudson Blanca Attending Unavailable Ball, Benson Primary [...] Unavailable DO Benson Mancini Primary Care Provider [phone] BENSON MANCINI Primary Care Physician Hudson BLANCA [...] Translations: [tramadol] Drug Allergy 8 Nausea, Unknown [facility] (1 source) patient allergy list reviewed by nurse or physicia Propensity to adverse reactions Comment:Done [facility] CV Other (2 sources) No Known Medication Allergies; Translations: [No Known Medication Allergies] Propensity to adverse reactions (disorder) [facility] Repository (1 source) rOPINIRole; Translations: [ROPINIROLE] Drug Allergy 2 [facility] Repository Medications Current Medications Medication [...] kristina th every eight hours for pain [place] 325 mg-5 mg oral tablet 1 tab(s), Oral, q8hr for pain, 15 tab(s), Refill(s) 0, [facility] Start Date: 03/03/20 Status: Ordered Start: 02-25-2020 take 1 tablet by kristina th once [place] 325 mg-5 mg oral tablet 1 tab(s), [...] day(s), # 14 tab(s), Refills(s) 0, Pharmacy: [id number] Start Date: 04/01/24 Stop Date: 04/08/24 [...] 20 cap(s), Refills(s) 0, Pharmacy: [facility] #[id number] Start Date: 10/21/22 Status: Ordered Start: 06-19-2022 End: 06-26-2022 take 1 capsule by mouth every twelve hours Keflex 500 mg Cap 500 mg = 1 cap(s), Oral, q12hr, X 7 day(s), # 14 cap(s), Refills(s) 0, Pharmacy: [facility] #[id number] Start Date: 11/23/22 Stop Date: 06/26/22 Status: Ordered Start: 04-14-2020 take 1 capsule by mo [facility] twice daily Keflex 500 mg Cap 500 mg = 1 cap(s), Oral, BID, # 14 cap(s), Refills(s) 0, Pharmacy: [facility] Start Date: 04/14/20 Status: Ordered clopidogrel [...] 05, 2023 12:00am [facility]four [facility] Ferrous Sulfate 325 [...] MG PO Daily August 05, 2023 1:00am Obfdoirxulub-Jxosvbff-V utein (Centrum Silver) Tablet (5 sources) Start: 08-05-2023 take 1 tablet by mouth once daily Multivitamin-Minerals- Lutein (Centrum Silver) Tablet Active 1 TAB PO Daily August 05, 2023 1:00am Start: 08-05-2023 take 1 tablet by kristina th once daily Tibaleeqxqge-Skvzvbjl-Lhajel (Centrum Silver) Tablet Active 1 TAB PO [...] BID, # 180 tab(s), Refills(s) 3, Pharmacy: [facility] Start Date: 07/10/20 Status: Ordered [...] day(s), 20 tab(s), Refill(s) 0, [facility] #[id number] Start Date: 11/04/22 Stop Date: 11/14/22 Status: Ordered Start: 06-11-2021 Bactrim DS 800 mg-160 mg Tab 160 mg, Oral, q12hr, 14 tab(s), Refill(s) 0, [facility] [address] [facility] Start Date: 06/11/21 Status: Ordered Start: 12-01-2017 End: 12-01-2017 Sulfamethoxazole-Trimethopri m Discontinued TABLET December 01, 2017 12:00am December 01, 2017 8:44am tamsulosin hydrochloride 0.4 mg oral capsule (4 sources) alpha-Adrenergic Erica Start: 12-27-2022 take 1 capsule by mouth twice daily tamsulosin 0.4 mg Cap 0.4 mg = 1 cap(s), Oral, BID, # 30 cap(s), Refills(s) 0, Pharmacy: [facility] #[id number] Start Date: 12/27/22 Status: Ordered Completed/Discontinued Medications [...] procedure, # 2 tab(s), Refills(s) 0, [facility]: [id number] Start Date: 01/20/24 Status: Ordered Start: 04-04-2022 take 1 tablet by kristina once daily Cipro 500 mg Tab 500 mg = 1 tab(s), Oral, Daily, Take 1 tablet the day before the procedure and 1 tablet after the procedure, # 2 tab(s), Refills(s) 0, Pharmacy: [facility] #[id number] Start Date: 11/26/22 Status: Ordered Start: 10-30-2021 take 1 tablet by [facility] once daily Cipro 500 mg Tab 500 mg = 1 tab(s), Oral, Daily, Take 1 tablet the day before the procedure and 1 tablet after the procedure, # 2 tab(s), Refills(s) 0, [facility] Start Date: 10/30/21 Status: Ordered hyoscyamine sulfate [...] tablet by mouth four times daily Methen-M.Blue-S.Ph ge-Dlwje-Wfu (Uribel) 118-10-40.8-36 mg Capsule Discontinued 1 TAB [...] by mouth twice daily Sod Phos Di, Edmonson-K Phos Edmonson (Phospha 250 Neutral) 250 mg Tablet Discontinued [...] Coronary arteriosclerosis; Translations: [Atherosclerotic heart disease of [place] coronary artery without angina pectoris] Onset: 8 [...] aftercare (3 sources) Drug therapy finding; Translations: [ocean transportation intermediary (current) use of opiate analgesic] 12-29-2023 Episodic Other aftercare (3 sources) FPC (current) use of opiate analgesic; Translations: [Long-term [...] and due to atherosclerosis; Translations: [Atherosclerosis of [place] arteries of extremities with intermittent claudication, bilateral [...] Onset: 05-01-2018 Episodic Other aftercare (1 source) ocean transportation intermediary (current) use of aspirin; Translations: [DEVULCANIZER TENDER CURRENT USE OF ASPIRIN] Onset: 05-01-2022 Episodic Other aftercare (1 source) FPC (current) use of antithrombotics/anti platelets; Translations: [FDC ANTITHROMBOT/ANTIPLA TLETS] Onset: 05-01-2022 Episodic Other aftercare (1 source) Other long goods drier (current) drug therapy; Translations: [OTH FDC CURRENT DRUG THERAPY] Onset: 05-01-2022 Episodic Other [...] for 3 month neph tube change at [facility] Reminders Reminders - From: Sierra Rizzo To: EU - Recalls Blanca; Sent: 10/31/2023 09:54:34 EDT Show up: 01/05/2024 09:54:00 EDT Subject: neph tube change Due Date/Time: 01/28/2024 09:54:00 EDT Reminder/Recall Patient will be due in January 2024 for 3 month [place] [facility] [place] [facility] [place] vm.SLICK Kamala called back, pt sched for 02/13/24 @ 8:30am. Pt will be due in Apr 2024.LG Spoke to pt, he cannot do 05/04/24. L/m on [facility] [place] line to sched with Kamala .SLICK Wray called back, pt sched for 05/18/24 @ 7:45am. Order faxed [phone]. Normal [facility] Office Visiton 04-19-2024 Follow-up visit [id number] Arian Olivera 1940 M Date Provider Department Center 04/19/2024 [address]-[place], EHAB BH CARD [facility] No family history on file Level of Service:06505 [place] OFFICE/OUTPATIENT ESTABLISHED MOD MDM 30 MIN Normal [facility] Reminderson 04-12-2024 Reminders Reminders - From: Sierra Rizzo To: EU - Recalls Blnaca; Sent: 04/12/2024 09:13:14 EDT Show up: 06/27/2024 09:12:00 EST Subject: neph tube change Due Date/Time: 07/19/2024 09:12:00 EST Reminder/Recall Patient needs right neph tube change in Jul 2024, 3 mo Normal [facility] C Urineon 04-07-2024 Bacteria identified Cx Nom [...] Locations R1: This test was performed at: [facility], [address] [place] [address], [phone]- , [place], Normal [facility] Comment on above: Performed By: #### 2 [id number] #### [facility] [address] [place] [address] IR nephrostomy tube chg UNon 02-13-2024 IR nephrostomy tube chg UN [address] [address] Interventional Radiology Rpt Signed Patient: Arian Olivera MR#: [id number] : 1940 Acct:[id number] Age/Sex: 83 / M ADM Date: 02/13/24 Loc: IR Room: Type: [facility] Attending Dr: Hudson Blanca MD Copies to: [...] nephrostomy tube was removed. A new 12 Faroese nephrostomy tube was administered into the right renal pelvis with wire guidance. The guidewire removed and pigtail locked. Contrast administered confirming adequate position. The nephrostomy tube was secured to skin. No immediate complications. IR/IR nephrostomy tube chg UN IMPRESSION: Adequate replacement of 12 Faroese right percutaneous nephrostomy tube. Impression dictated by: Declan Moreira M.D.02/13/2024 12:28 PM Dictation Location: [place] [address] Transcribed By: [facility] 02/13/24 1228 Dictated By: Declan Moreira DO 02/13/24 1223 Signed By: 02/13/24 1228 Normal [facility] UroVysion Fish and Urine Cyt o ([facility])on 02-06-2024 UVFISH & UC Diagnosis Info Invalid Interpretation Code [facility] Comment on above: Result Comment: A:Ur [...] on: 02/06/2024 16:35:49 Performed By: #### 1 [id number] #### [facility] [address] [place] [address] Ambulatory Visit Summaryon 0 02-02-2024 Ambulatory Visit [...] for choosing us for your care. Normal [facility] UroVysion Fish and Urine Cyt o ( Labs)on 02-02-2024 [facility] Method of Extraction Voided Normal [facility] Comment on above: Performed By: #### 1 [id number] #### [facility] [address] [place] [address] [facility] Number of Jars 1 Invalid Interpretation Code [facility] Comment on above: Performed By: #### 1 [id number] #### [facility] [address] [place] [address] [facility] Specimen Urine Normal [facility] Comment on above: Performed By: #### 1 [id number] #### [facility] [address] [place] [address] [facility] Type of Service Technical Only Normal [facility] Comment on above: Performed By: #### 1 [id number] #### [facility] [address] [place] [address] Reminderson 01-27-2024 Reminders Reminders - From: Sierra Rizzo To: EU - Recalls Blanca; Sent: 01/27/2024 12:47:06 EDT Show up: 11/25/2024 12:46:00 EDT Subject: cysto/fish/cytol Due Date/Time: 12/20/2024 12:47:00 EDT Reminder/Recall Patient is due in January 2025 for 1 year cysto/fish/cytol, bt ck Normal [facility] Consent for Procedure/Surger yon 01-21-2024 Consent for Procedure/Surgery [id number] #1.00TIFF Normal [facility] IR nephrostomy tube chg UNon 11-21-2023 IR nephrostomy tube chg UN [facility] [place] [address] [place] [address] Interventional Radiology Rpt Signed Patient: Arian Olivera MR#: [id number] : 1940 Acct:[id number] Age/Sex: 83 / M ADM Date: 11/21/23 Loc: IR Room: Type: [facility] Attending Dr: Declan Moreira DO Copies to: [...] nephrostomy tube exchange. Impression dictated by: Declan Moerira M.D.11/21/2023 12:48 PM Dictation Location: [place] [address] Transcribed By: [facility] 11/21/23 1248 Dictated By: Declan Moreira DO 11/21/23 1239 Signed By: 11/21/23 1248 Normal [facility] Amorphous urine sedimenton 0 11-03-2023 Amorphous sediment LM Ql (Urine sed) [facility] Automated epithelial cells c ount in urine sediment (number/area)on 11-03-2023 Epithelial cells Auto (Urine sed) [#/Area] FEW #/LPF NONE/RARE [facility] Automated leukocytes count i n urine sediment (number/area)on 11-03-2023 WBC Auto (Urine sed) [#/Area] 5-10 #/HPF 0-2 [facility] Automated urine sediment [place] cium oxalate crystal count by microscopy (number/high powon 11-03-2023 Calcium oxalate crystals LM.HPF (Urine sed) [#/Area] RARE [facility] Automated urine specific gra vity by refractometryon 11-03-2023 Specific gravity Refractometry automated (U) [Rel density] 1.020 1.005-1.025 [facility] Bilirubin Auto test strip (U ) [Mass/Vol]on 11-03-2023 Bilirubin (U) [Mass/Vol] Negative NEGATIVE [facility] Casts typing in urine sedime nt by light microscopyon 11-03-2023 Casts LM Nom (Urine sed) NONE SEEN #/LPF NONE SEEN [facility] Color Auto (U)on 11-03-2023 Color (U) LT. YELLOW YELLOW [facility] Erythrocyte distribution wid th Auto (RBC) [Ratio]on 11-03-2023 Erythrocyte distribution width (RBC) [Ratio] 13.7 % 11.0-15.0 [facility] Estimated glomerular filtrat ion rate (GFR) non- Americanon 11-03-2023 GFR/1.73 sq M.predicted among non-blacks MDRD (S/P/Bld) [Vol rate/Area] 25 mL/min/{1.73_m2} >=60 [facility] Hematocrit Auto (Bld) [Volum e fraction]on 11-03-2023 Hematocrit (Bld) [Volume fraction] 34.3 % 42.0-54.0 [facility] Hemoglobin [Mass/volume] in Bloodon 11-03-2023 Hemoglobin (Bld) [Mass/Vol] 11.0 g/dL 14.0-18.0 [facility] Ketones Auto test strip (U) [Mass/Vol]on 11-03-2023 Ketones (U) [Mass/Vol] Negative NEGATIVE [facility] Laboratory - Chemistry and C hemistry - challengeon 11-03-2023 Albumin [Mass/Vol] 3.5 g/dL 3.4-5.0 [facility] Calcium [Mass/Vol] 9.0 mg/dL 8.5-10.1 [facility] Chloride [Moles/Vol] 99 mmol/L 98-107 [facility] CO2 [Moles/Vol] 22.2 mmol/L 21.0-32.0 [facility] Creatinine [Mass/Vol] 2.48 mg/dL 0.70-1.30 [facility] GFR/1.73 sq M.predicted MDRD (S/P/Bld) [Vol rate/Area] 31 mL/min/{1.73_m2} >=60 [facility] Glucose [Mass/Vol] 137 mg/dL 74-106 [facility] Magnesium [Mass/Vol] 1.5 mg/dL 1.8-2.4 [facility] Potassium [Moles/Vol] 4.8 mmol/L 3.5-5.1 [facility] Sodium [Moles/Vol] 133 mmol/L 136-145 [facility] Urea nitrogen [Mass/Vol] 42.0 mg/dL 7.0-18.0 [facility] Urea nitrogen/Creatinine [Mass ratio] 16.9 mg/mg [facility] Leukocytes [#/volume] correc ronald for nucleated erythrocytes in Blood by Automated counon 11-03-2023 WBC corrected for nucl RBC Auto (Bld) [#/Vol] 5.9 10 3/uL 4.0-11.0 [facility] MCH Auto (RBC) [Entitic mass ]on 11-03-2023 MCH (RBC) [Entitic mass] 30.0 pg 25.9-34.0 [facility] MCHC Auto (RBC) [Mass/Vol]on 11-03-2023 MCHC (RBC) [Mass/Vol] 32.1 g/dL 29.9-35.2 [facility] MCV Auto (RBC) [Entitic vol] on 11-03-2023 MCV (RBC) [Entitic vol] 93.5 fL 80.0-94.0 [facility] Microalbumin [Mass/volume] i n Urineon 11-03-2023 Albumin DL <= 20 mg/L (U) [Mass/Vol] 20.1 mg/dL <=30.0 [facility] Mucus LM Ql (Urine sed)on Mucus Ql (Urine sed) NONE SEEN NONE SEEN [facility] No Panel Informationon 11-02 Phosphorus Level 3.9 mg/dL 2.6-4.7 [facility] Urine Random Creatinine 54.23 mg/dL 20.00-300.00 [facility] Platelet mean volume Auto (B ld) [Entitic vol]on 11-03-2023 Platelet mean volume (Bld) [Entitic vol] 10.3 fL 9.5-13.5 [facility] Platelets Auto (Bld) [#/Vol] on 11-03-2023 Platelets (Bld) [#/Vol] 144 10 3/uL 150-450 [facility] Protein Auto test strip (U) [Mass/Vol]on 11-03-2023 Protein (U) [Mass/Vol] 100 mg/dL NEG/TRACE [facility] RBC Auto (Bld) [#/Vol]on RBC (Bld) [#/Vol] 3.67 10 6/uL 4.70-6.10 [facility] Serum or plasma anion gap de terminationon 11-03-2023 Anion gap [Moles/Vol] 16.6 mmol/L [facility] Specific gravity Auto test s trip (U) [Rel density]on 11-03-2023 Specific gravity (U) [Rel density] CLEAR CLEAR [facility] Urine bacteria detection by automated methodon 11-03-2023 Bacteria Auto Ql (U) LARGE #/HPF NONE SEEN [place] Urine glucose measurement by test strip (mass/volume)on 11-03-2023 Glucose Test strip (U) [Mass/Vol] Negative NEGATIVE [facility] Urine hemoglobin detection b y automated test stripon 11-03-2023 Hemoglobin Auto test strip Ql (U) LARGE NEGATIVE [facility] Urine microalbumin/creatinin e mass ratioon 11-03-2023 Albumin/Creatinine DL <= 20 mg/L (U) [Mass ratio] 370.6 mg/g 0.0-29.9 [facility] Comment on above: NO MICROALBUMINURIA 0-29 MG/GCLINICAL MICROALBUMINURIA 30-300 MG/GMACROALBUMINURIA >300 MG/G Urine nitrite detection by a utomated test stripon 11-03-2023 Nitrite Auto test strip Ql (U) MODERATE NEGATIVE [facility] Nitrite Auto test strip Ql (U) Positive NEGATIVE [facility] Urine sediment crystal ident ification by light microscopyon 11-03-2023 Crystals LM Nom (Urine sed) Seen #/HPF None Seen [facility] Urine sediment leukocyte cou nt by microscopy (number/high power field)on 11-03-2023 WBC LM.HPF (Urine sed) [#/Area] 10-20 #/HPF NONE SEEN [facility] Urobilinogen Auto test strip (U) [Mass/Vol]on 11-03-2023 Urobilinogen Qn (U) 0.2 {Raffi'U}/dL 0.2-1.0 [facility] pH Auto test strip (U)on pH (U) 7.5 [pH] 5.0-9.0 [facility] Physician Orderon 10-31-2023 Physician Order [id number] #1.00TIFF Normal [facility] Reminderson 10-31-2023 Reminders - From: Sierra Rizzo To: EU - Recalls Blanca; Cc: Sierra Rizzo; Sent: 07/08/2023 09:01:46 EST Show up: 08/28/2023 09:01:00 EST Subject: Neph tube change Due Date/Time: 09/22/2023 09:01:00 EST Reminder/Recall Patient is due in September 2023 for 3 month RT neph tube [place] [facility] Patient had neph tube changed in Jul by Dr. Gonsalez due to problems. Pt will be due in October 2023.LG Spoke to pt, he is available all month. l/m on [facility] interventional sched vm to sched.SLICK Wray called back, pt sched for 11/20/23 @ 8am, Order faxed . new thread. Normal [facility] Office Visiton 10-07-2023 Follow-up visit [id number] Arian Olivera 1940 M Date Provider Department Center 10/07/2023 RAJENDRA V[place]LEGAS CARD [facility] No family history on file Level of Service:56875 [place] OFFICE/OUTPATIENT ESTABLISHED LOW MDM 20 MIN Normal [facility] Physician Orderon 08-06-2023 Physician Order [id number] #1.00TIFF Normal [facility] Capillary blood glucose cecilia urement by glucometer (mass/volume)Ordered By: PROVIDER TEMP on 08-05-2023 Glucose [Mass/Vol] 138 mg/dL Normal [facility] Comment on above: Random Glucose Refer ence Range is dependent on time and content of last meal. Glucose of more than 200 mg/dL in a nonstressed, ambulatory subject supports the diagnosis of Diabetes Mellitus. Result Comment: [place] Glucose Reference Range is dependent on time and content of last meal. Glucose of more than 200 mg/dL in a nonstressed, ambulatory subject supports the diagnosis of Diabetes Mellitus. PERFORMED BY: [place] [address] PATHOLOGIST G[employer] P[employer] WORKER CAMI RAYA M.D. Performed By: #### G LULS #### Point of Care testing , ECG 12 lead ECGon 08-05-2023 ECG 12 lead ECG [facility] [place] [place] [address] Electrocardiograph Report Signed Patient: Arian Olivera MR#: [id number] : 1940 Acct:[id number] Age/Sex: 83 / M ADM Date: 08/05/23 Loc: ER Room: Type: [facility] ER Attending Dr: Ordering Provider: Jose [...] available Confirmed by JOSE D HERCULES MD ([id number]) on 08/05/2023 5:39:43 AM Referred By: Electronically Signed By:JOSE D HERCULES MD Transcribed By: MUS Signed By Jose D Hercules Jr, MD 0539 Normal [facility] RAD - MISCon 07-29-2023 RAD - MISC [id number] #1.00TIFF Normal [facility] IR nephrostomy tube chg UNon 07-25-2023 IR nephrostomy tube chg UN [facility] [place] [address] Interventional Radiology Rpt Signed Patient: Arian Olivera MR#: [id number] : 1940 Acct:[id number] Age/Sex: 83 / M ADM Date: 07/25/23 Loc: IR Room: Type: [facility] Attending Dr: Hudson Blanca MD Copies to: [...] nephrostomy tube. The tube was removed. 12 Faroese RIGHT nephrostomy tube was administered with a wire guidance. The tube is in adequate position and was locked. Contrast was administered confirming adequate position. No immediate complications. IR/IR nephrostomy tube chg UN IMPRESSION: Adequate exchange of 12 Faroese RIGHT nephrostomy tube. Impression dictated by: Declan Moreira M.D.07/25/2023 11:15 AM Dictation Location: [place] [address] Transcribed By: [facility] 07/25/23 1115 Dictated By: Declan Moreira DO 07/25/23 1109 Signed By: 07/25/23 1115 Normal [facility] Physician [facility] Physician Orderon 07-08-2023 Physician Order [id number] #1.00TIFF Normal [facility] IR nephrostomy tube chg UNon 04-22-2023 IR nephrostomy tube chg UN [facility] [place] [address] Interventional Radiology Rpt Signed Patient: Arian Olivera MR#: [id number] : 1940 Acct:[id number] Age/Sex: 83 / M ADM Date: 04/22/23 Loc: IR Room: Type: [facility] Attending Dr: Declan Moreira DO Copies to: Declan Moreira DO Ordering Provider: Declan Moreira DO Date of Service: 04/22/23 IR/IR nephrostomy tube chg UN: RT NEPH TUBE EXCHANGE Interventional radiology nephrostomy tube exchange Cumulative Air Kerma in mGy: 43.4 mGy. One image obtained. Right-sided nephrostomy tube was exchanged. 12 Faroese nephrostomy tube utilized. Tube was advanced with a wire guidance. Contrast was administered with adequate position noted. IR/IR nephrostomy tube chg UN IMPRESSION: Successful exchange of the RIGHT percutaneous nephrostomy tube. Impression dictated by: Declan Moreira M.D.04/22/2023 11:20 AM Dictation Location: [place] [address] Transcribed By: [facility] 04/22/23 1120 Dictated By: Declan Moreira DO 04/22/23 1117 Signed By: 04/22/23 1120 Normal [facility] BUNon 12-24-2022 Urea nitrogen [Mass/Vol] 40.0 mg/dL Critically high 7.0-18.0 [facility] Comment on above: Performed By: #### H H #### [facility] [address] [place] [address] [address] Lilly Cordova CREATININEon 12-24-2022 Creatinine [Mass/Vol] 2.33 mg/dL Critically high 0.70-1.30 [facility] Comment on above: Performed By: #### H H #### [facility] [address] [place] [address] [address] Lilly Cordova EGFR-AF [place] 33 mL/min/1.73m2 Critically low >=60 [facility] Comment on above: Performed By: #### H H #### [facility] [address] [place], [place] [address] Dr. Lilly Cordova EGFR-NON AF [place] 27 mL/min/1.73m2 Critically low >=60 [facility] Comment on above: Performed By: #### H H #### [facility] [address] [place], [place] [address] ABD/PELVIS WO CONon [...] by: GUSTAVO BUSTILLO Date: 2022-12-24 10:21 Normal [facility] XR KUB 1 VIEWon 11-12-2022 XR KUB [...] by: BETZY JAMES Date: 2022-11-12 10:01 Normal [facility] CULTURE URINEon 11-07-2022 CULTURE URINE Isolate 1 [...] F Trimethoprim/Sulfame thoxazole <=20 S F Normal [facility] Comment on above: Performed By: #### H H #### [facility] [address] [address] [address] Lilly Cordova PTH INTACTon 11-05-2022 PTH, Intact 46 pg/mL Normal 15-65 [facility] Comment on above: Performed By: #### P THINT #### [facility] [address] [address] [address] Lilly Cordova ALBUMINon 11-04-2022 Albumin [Mass/Vol] 3.6 g/dL Normal 3.4-5.0 [facility] Comment on above: Performed By: #### B MP, PHOS, MG, ALB, URIC #### [facility] [address] [place] [address] Dr. Lilly Cordova HEMOGRAM AND PLATELon 2022 Hematocrit (Bld) [Volume fraction] 34.7 % Critically low 42.0-54.0 [facility] Comment on above: Performed By: #### H H #### [facility] [address] [place] [address] Dr. Lilly Cordova Hemoglobin (Bld) [Mass/Vol] 11.7 g/dL Critically low 14.0-18.0 [facility] Comment on above: Performed By: #### H H #### [facility] [address] [place] [address] Dr. Lilly Cordova MCH (RBC) [Entitic mass] 31.0 pg Normal 25.9-34.0 [facility] Comment on above: Performed By: #### H H #### [facility] [address] [place] [address] Dr. Lilly Cordova MCHC (RBC) [Mass/Vol] 33.7 g/dL Normal 29.9-35.2 [facility] Comment on above: Performed By: #### H H #### [facility] [address] [place] [address] Dr. Lilly Cordova MCV (RBC) [Entitic vol] 91.8 fL Normal 80.0-94.0 [facility] Comment on above: Performed By: #### H H #### [facility] [address] [place] [address] Dr. Lilly Cordova PLT 129 103/ul Critically low 150-450 [facility] Comment on above: Performed By: #### H H #### [facility] [address] [place] [address] Dr. Lilly Cordova RBC 3.78 106/ul Critically low 4.70-6.10 [facility] Comment on above: Performed By: #### H H #### [facility] [address] [place] [address] Dr. Lilly Cordova WBC 6.2 103/ul Normal 4.0-11.0 [facility] Comment on above: Performed By: #### H H #### [facility] [address] [place] [address] Dr. Lilly Cordova MAGNESIUMon 11-04-2022 Magnesium [Mass/Vol] 1.5 mg/dL Critically low 1.8-2.4 [facility] Comment on above: Performed By: #### B MP, PHOS, MG, ALB, URIC #### [facility] [address] [place] [address] Dr. Lilly Cordova MICROALB CREAT RATIO RANDOMo n 11-04-2022 mALB 13.5 mg/L Normal <=30.0 [facility] Comment on above: Performed By: #### M CRR #### [facility] [address] [place] [address] Dr. Lilly Cordova MALB CR RATIO 238.9 mg/g Critically high 0.0-29.9 [facility] Comment on above: Performed By: #### M CRR #### [facility] [address] [place] [address] Dr. Lilly Cordova MALB CR RATIO RANGE SEE BELOW Normal [facility] Comment on above: Result Comment: NO M ICROALBUMINURIA 0-29 MG/G CLINICAL MICROALBUMINURIA 30-300 MG/G MACROALBUMINURIA >300 MG/G Performed By: #### M CRR #### [facility] [address] [place] [address] Dr. Lilly Cordova URINE CREAT 56.52 mg/dL Normal 20.00-300.00 [facility] Comment on above: Performed By: #### M CRR #### [facility] [address] [place] [address] Dr. Lilly Cordova PHOSPHORUSon 11-04-2022 Phosphate [Mass/Vol] 3.0 mg/dL Normal 2.6-4.7 [facility] Comment on above: Performed By: #### B MP, PHOS, MG, ALB, URIC #### [facility] [address] [place] [address] Dr. Lilly Cordova PROF CHEM 8 (BAS METB)on Anion gap [Moles/Vol] 13.0 mmol/L Normal [facility] Comment on above: Performed By: #### B MP, PHOS, MG, ALB, URIC #### [facility] [address] [place] [address] Dr. Lilly Cordova Calcium [Mass/Vol] 9.1 mg/dL Normal 8.5-10.1 [facility] Comment on above: Performed By: #### B MP, PHOS, MG, ALB, URIC #### [facility] [address] [place] [address] Dr. Lilly Cordova Chloride [Moles/Vol] 102 mmol/L Normal 98-107 [facility] Comment on above: Performed By: #### B MP, PHOS, MG, ALB, URIC #### [facility] [address] [place] [address] Dr. Lilly Cordova CO2 [Moles/Vol] 25.0 mmol/L Normal 21.0-32.0 [facility] Comment on above: Performed By: #### B MP, PHOS, MG, ALB, URIC #### [facility] [address] [place] [address] Dr. Lilly Cordova Creatinine [Mass/Vol] 1.79 mg/dL Critically high 0.70-1.30 [facility] Comment on above: Performed By: #### B MP, PHOS, MG, ALB, URIC #### [facility] [address] [place] [address] Dr. Lilly Cordova EGFR-AF PORTUGUESE 45 mL/min/1.73m2 Critically low >=60 [facility] Comment on above: Performed By: #### B MP, PHOS, MG, ALB, URIC #### [facility] [address] [place] [address] Dr. Lilly Cordova EGFR-NON AF [place]UGUESE 37 mL/min/1.73m2 Critically low >=60 [facility] Comment on above: Performed By: #### B MP, PHOS, MG, ALB, URIC #### [facility] [address] [place] [address] Dr. Lilly Cordova Glucose [Mass/Vol] 106 mg/dL Normal 74-106 [facility] Comment on above: Performed By: #### B MP, PHOS, MG, ALB, URIC #### [facility] [address] [place] [address] Dr. Lilly Cordova Potassium [Moles/Vol] 5.0 mmol/L Normal 3.5-5.1 [facility] Comment on above: Performed By: #### B MP, PHOS, MG, ALB, URIC #### [facility] [address] [place] [address] Dr. Lilly Cordova Sodium [Moles/Vol] 135 mmol/L Critically low 136-145 [facility] Comment on above: Performed By: #### B MP, PHOS, MG, ALB, URIC #### [facility] [address] [place] [address] Dr. Lilly Cordova Urea nitrogen [Mass/Vol] 35.0 mg/dL Critically high 7.0-18.0 [facility] Comment on above: Performed By: #### B MP, PHOS, MG, ALB, URIC #### [facility] [address] [place] [address] Dr. Lilly Cordova Urea nitrogen/Creatinine [Mass ratio] 19.6 mg/mg Normal [facility] Comment on above: Performed By: #### B MP, PHOS, MG, ALB, URIC #### [facility] [address] [place] [address] Dr. Lilly Cordova UA (CLEAN/CATCH) [employer] SALES/MICRO I F IND.on 11-04-2022 Bilirubin Ql (U) Negative Normal NEGATIVE [facility] Comment on above: Performed By: #### H H #### [facility] [address] [place] [address] Dr. Lilly Cordova Clarity (U) CLEAR Normal CLEAR [facility] Comment on above: Performed By: #### H H #### [facility] [address] [place] [address] Dr. Lilly Cordova Color (U) LT. YELLOW Normal YELLOW [facility] Comment on above: Performed By: #### H H #### [facility] [address] [address] [address] Lilly Cordova Glucose Ql (U) Negative Normal NEGATIVE [facility] Comment on above: Performed By: #### H H #### [facility] [address] [address] [address] Lilly Cordova Hemoglobin Ql (U) MODERATE Abnormal NEGATIVE [facility] Comment on above: Performed By: #### H H #### [facility] [address] [address] [address] Lilly Cordova Ketones Ql (U) Negative Normal NEGATIVE [facility] Comment on above: Performed By: #### H H #### [facility] [address] [place] [address] Dr. Lilly Cordova LEUKOCYTES MODERATE Abnormal NEGATIVE [facility] Comment on above: Performed By: #### H H #### [facility] [address] [address] [address] Lilly Cordova Nitrite Ql (U) Positive Abnormal NEGATIVE [facility] Comment on above: Performed By: #### H H #### [facility] [address] [place] [address] Dr. Lilly Cordova pH (U) 7.5 [pH] Normal 5-9 [facility] Comment on above: Performed By: #### H H #### [facility] [address] [place] [address] Dr. Lilly Cordova SPEC GRAVITY 1.010 Normal 1.005-<=1.025 [facility] Comment on above: Performed By: #### H H #### [facility] [address] [address] [address] Lilly Cordova UA PROTEIN 30 mg/dl Abnormal NEGATIVE/ TRACE [facility] Comment on above: Performed By: #### H H #### [facility] [address] [place] [address] Dr. Lilly Cordova UR MICRO IND INDICATED Normal [facility] Comment on above: Performed By: #### H H #### [facility] [address] [place] [address] Dr. Lilly Cordova Urobilinogen Qn (U) 0.2 {Raffi'U}/dL Normal 0.2 - 1. 0 [facility] Comment on above: Performed By: #### H H #### [facility] [address] [place] [address] Dr. Lilly Cordova URIC ACID SERUMon 11-04-2022 Urate [Mass/Vol] 5.2 mg/dL Normal 3.5-7.2 [facility] Comment on above: Performed By: #### B MP, PHOS, MG, ALB, URIC #### [facility] [address] [place] [address] Dr. Lilly Cordova URINE MICROSCOPIC ONLYon BACTERIA TRACE Abnormal NONE SEEN [facility] Comment on above: Performed By: #### H H #### [facility] [address] [place] [address] Dr. Lilly Cordova Bacteria identified Cx Nom (U) INDICATED Normal [facility] Comment on above: Performed By: #### H H #### [facility] [address] [place] [address] Dr. Lilly Cordova CAST NONE SEEN Normal NONE SEEN [facility] Comment on above: Performed By: #### H H #### [facility] [address] [place] [address] Dr. Lilly Cordova Crystals LM Nom (Urine sed) NONE SEEN Normal NONE SEEN [facility] Comment on above: Performed By: #### H H #### [facility] [address] [place] [address] Dr. Lilly Cordova Epithelial cells LM Ql (Urine sed) NONE SEEN Normal NONE SEEN /RARE [facility] Comment on above: Performed By: #### H H #### [facility] [address] [place] [address] Dr. Lilly Cordova MUCOUS NONE SEEN Normal NONE SEEN [facility] Comment on above: Performed By: #### H H #### [facility] [address] [place] [address] Dr. Lilly Cordova RBC 2-5 Abnormal 0-2 [facility] Comment on above: Performed By: #### H H #### [facility] [address] [place] [address] Dr. Lilly Cordova WBC 10-20 Abnormal NONE SEEN [facility] Comment on above: Performed By: #### H H #### [facility] [address] [place] [address] Dr. Lilly Cordova VITAMIN D 25 OHon 11-04-2022 VIT D 25-OH 58.3 ng/mL Normal [facility] Comment on above: Performed By: #### H H #### [facility] [address] [place] [address] Dr. Lilly Cordova VIT D RANGES SEE BELOW Normal [facility] Comment on above: Result Comment: <20 ng/mL Vit D deficient 20 - <30 ng/mL Vit D insufficient 30 - 100 ng/mL Vit D sufficient >100 ng/mL Potential Toxicity Performed By: #### H H #### [facility] [address] [place] [address] Dr. Lilly Cordova HEMOGLOBINon 07-10-2022 Hemoglobin (Bld) [Mass/Vol] 11.6 g/dL Critically low 14.0-18.0 [facility] Comment on above: Performed By: #### H GB #### [facility] [address] [place] [address] Dr. Lilly Cordova NM STRESS/REST MULTIon 06-03 NM STRESS/REST MULTI Patient: ARIAN OLIVERA Exam Date: 06/03/2022 : 1940 Gender:M Ordering : ZOILA ROQUE [facility] Admission #: [id number] Family : Order #: [id number] CLICK HERE TO VIEW EXAM RADIOLOGY REPORT [...] MD on 06/04/2022 at 07:50 Normal [facility] PROF CHEM 8 (BAS METB)on Anion gap [Moles/Vol] 11.2 mmol/L Normal [facility] Comment on above: Performed By: #### H H #### [facility] [address] [address] [address] Lilly Cordova Calcium [Mass/Vol] 8.8 mg/dL Normal 8.5-10.1 [facility] Comment on above: Performed By: #### H H #### [facility] [address] [address] [address] Lilly Cordova Chloride [Moles/Vol] 103 mmol/L Normal 98-107 [facility] Comment on above: Performed By: #### H H #### [facility] [address] [address] [address] Lilly Cordova CO2 [Moles/Vol] 25.2 mmol/L Normal 21.0-32.0 [facility] Comment on above: Performed By: #### H H #### [facility] [address] [address] [address] Lilly Cordova Creatinine [Mass/Vol] 1.87 mg/dL Critically high 0.70-1.30 [facility] Comment on above: Performed By: #### H H #### [facility] [address] [address] [address] Lilly Cordova EGFR-AF [place]UGUESE 42 mL/min/1.73m2 Critically low >=60 [facility] Comment on above: Performed By: #### H H #### [facility] [address] [address] [address] Lilly Cordova EGFR-NON AF [place]UESE 35 mL/min/1.73m2 Critically low >=60 [facility] Comment on above: Performed By: #### H H #### [facility] [address] [address] [address] Lilly Cordova Glucose [Mass/Vol] 126 mg/dL Critically high 74-106 [facility] Comment on above: Performed By: #### H H #### [facility] [address] [address] [address] Lilly Cordova Potassium [Moles/Vol] 4.4 mmol/L Normal 3.5-5.1 [facility] Comment on above: Performed By: #### H H #### [facility] [address] [address] [address] Lilly Cordova Sodium [Moles/Vol] 135 mmol/L Critically low 136-145 [facility] Comment on above: Performed By: #### H H #### [facility] [address] [address] [address] Lilly Cordova Urea nitrogen [Mass/Vol] 32.0 mg/dL Critically high 7.0-18.0 [facility] Comment on above: Performed By: #### H H #### [facility] [address] [address] [address] Lilly Cordova Urea nitrogen/Creatinine [Mass ratio] 17.1 mg/mg Normal [facility] Comment on above: Performed By: #### H H #### [facility] [address] [place] [address] Dr. Lilly Cordova PTH INTACTon 05-07-2022 PTH, Intact 28 pg/mL Normal 15-65 [facility] Comment on above: Performed By: #### P THINT #### [facility] [address] [place] [address] Dr. Lilly Cordova HEMOGRAM AND PLATELon 2021 Hematocrit (Bld) [Volume fraction] 34.2 % Critically low 42.0-54.0 [facility] Comment on above: Performed By: #### H H #### [facility] [address] [place] [address] Dr. Lilly Cordova Hemoglobin (Bld) [Mass/Vol] 11.5 g/dL Critically low 14.0-18.0 [facility] Comment on above: Performed By: #### H H #### [facility] [address] [place] [address] Dr. Lilly Cordova MCH (RBC) [Entitic mass] 31.3 pg Normal 25.9-34.0 [facility] Comment on above: Performed By: #### H H #### [facility] [address] [place] [address] Dr. Lilly Cordova MCHC (RBC) [Mass/Vol] 33.6 g/dL Normal 29.9-35.2 [facility] Comment on above: Performed By: #### H H #### [facility] [address] [place] [address] Dr. Lilly Cordova MCV (RBC) [Entitic vol] 93.2 fL Normal 80.0-94.0 [facility] Comment on above: Performed By: #### H H #### [facility] [address] [place] [address] Dr. Lilly Cordova PLT 130 103/ul Critically low 150-450 [facility] Comment on above: Performed By: #### H H #### [facility] [address] [place] [address] Dr. Lilly Cordova RBC 3.67 106/ul Critically low 4.70-6.10 [facility] Comment on above: Performed By: #### H H #### [facility] [address] [place] [address] Dr. Lilly Cordova WBC 6.5 103/ul Normal 4.0-11.0 [facility] Comment on above: Performed By: #### H H #### [facility] [address] [place] [address] Dr. Lilly Cordova MAGNESIUMon 05-06-2022 Magnesium [Mass/Vol] 1.4 mg/dL Critically low 1.8-2.4 [facility] Comment on above: Performed By: #### P THINT #### [facility] [address] [place] [address] Dr. Lilly Cordova PHOSPHORUSon 05-06-2022 Phosphate [Mass/Vol] 3.0 mg/dL Normal 2.6-4.7 [facility] Comment on above: Performed By: #### P THINT #### [facility] [address] [place] [address] Dr. Lilly Cordova PROF CHEM 8 (BAS METB)on Anion gap [Moles/Vol] 10.5 mmol/L Normal [facility] Comment on above: Performed By: #### P THINT #### [facility] [address] [place] [address] Dr. Lilly Cordova Calcium [Mass/Vol] 9.1 mg/dL Normal 8.5-10.1 [facility] Comment on above: Performed By: #### P THINT #### [facility] [address] [place] [address] Dr. Lilly Cordova Chloride [Moles/Vol] 103 mmol/L Normal 98-107 [facility] Comment on above: Performed By: #### P THINT #### [facility] [address] [place] [address] Dr. Lilly Cordova CO2 [Moles/Vol] 27.9 mmol/L Normal 21.0-32.0 [facility] Comment on above: Performed By: #### P THINT #### [facility] [address] [place] [address] Dr. Lilly Cordova Creatinine [Mass/Vol] 1.77 mg/dL Critically high 0.70-1.30 [facility] Comment on above: Performed By: #### P THINT #### [facility] [address] [address] [address] Lilly Cordova EGFR-AF [place]UESE 45 mL/min/1.73m2 Critically low >=60 [facility] Comment on above: Performed By: #### P THINT #### [facility] [address] [address] [address] Lilly Cordova EGFR-NON AF [place] 37 mL/min/1.73m2 Critically low >=60 [facility] Comment on above: Performed By: #### P THINT #### [facility] [address] [address] [address] Lilly Cordova Glucose [Mass/Vol] 98 mg/dL Normal 74-106 [facility] Comment on above: Performed By: #### P THINT #### [facility] [address] [address] [address] Lilly Cordova Potassium [Moles/Vol] 5.4 mmol/L Critically high 3.5-5.1 [facility] Comment on above: Performed By: #### P THINT #### [facility] [address] [place] [address] Dr. Lilly Cordova Sodium [Moles/Vol] 136 mmol/L Normal 136-145 [facility] Comment on above: Performed By: #### P THINT #### [facility] [address] [address] [address] Lilly Cordova Urea nitrogen [Mass/Vol] 30.0 mg/dL Critically high 7.0-18.0 [facility] Comment on above: Performed By: #### P THINT #### [facility] [address] [place] [address] Dr. Lilly Cordova Urea nitrogen/Creatinine [Mass ratio] 16.9 mg/mg Normal [facility] Comment on above: Performed By: #### P THINT #### [facility] [address] [place] [address] Dr. Lilly Cordova URIC ACID SERUMon 05-06-2022 Urate [Mass/Vol] 5.2 mg/dL Normal 3.5-7.2 [facility] Comment on above: Performed By: #### P THINT #### [facility] [address] [place] [address] Dr. Lilly Cordova VITAMIN D 25 OHon 05-06-2022 VIT D 25-OH 56.4 ng/mL Normal [facility] Comment on above: Performed By: #### V ITAD #### [facility] [address] [place] [address] Dr. Lilly Cordova VIT D RANGES SEE BELOW Normal [facility] Comment on above: Result Comment: <20 ng/mL Vit D deficient 20 - <30 ng/mL Vit D insufficient 30 - 100 ng/mL Vit D sufficient >100 ng/mL Potential Toxicity Performed By: #### V ITAD #### [facility] [address] [place] [address] Dr. Lilly Cordova ECHOCARDIO M/2D COMPLETEon 0 04-16-2022 ECHOCARDIO M/2D COMPLETE Patient: RAIAN OLIVERA Exam Date: 04/16/2022 : 1940 Gender:M Ordering : OLEKSANDR CROSS Admission #: [id number] Family : DR BENSON MANCINI D.O. Order #: [id number] CLICK HERE TO VIEW EXAM ECHOCARDIOGRAM REPORT [...] Emanuel Joshi M.D. on 04/18/2022 at 16:09 [facility] Vital Signs Date Time Vital Sign Value Performing Clinician Facility 04-02-2024 09:59-0400 Body height 182.88 cm DO Benson Ball Work Phone: [facility] 04-02-2024 09:59-0400 Body mass index (BMI) [Ratio] 22.2 kg/m2 DO Benson Ball Work Phone: [facility] 04-02-2024 09:59-0400 Body weight 74.44 kg DO Benson Ball Work Phone: [facility] 04-02-2024 09:59-0400 Diastolic blood pressure 76 mm[Hg] DO Benson Ball Work Phone: [facility] 04-02-2024 09:59-0400 Heart rate 85 /min DO Benson Ball Work Phone: [facility] 04-02-2024 09:59-0400 Respiratory rate 12 /min DO Benson Ball Work Phone: [facility] 04-02-2024 09:59-0400 Systolic blood pressure 176 mm[Hg] DO Benson Ball Work Phone: [facility] 12-31-2023 10:49-0400 Body height 182.88 cm DO Benson Ball Work Phone: [facility] 12-31-2023 10:49-0400 Body mass index (BMI) [Ratio] 23.3 kg/m2 DO Benson Ball Work Phone: [facility] 12-31-2023 10:49-0400 Body weight 78.24 kg DO Benson Ball Work Phone: [facility] [facility] 12-31-2023 10:49-0400 Diastolic blood pressure 80 mm[Hg] DO Benson Ball Work Phone: [facility] 12-31-2023 10:49-0400 Heart rate 86 /min DO Benson Ball Work Phone: [facility] 12-31-2023 10:49-0400 Respiratory rate 12 /min DO Benson Ball Work Phone: [facility] 12-31-2023 10:49-0400 Systolic blood pressure 193 mm[Hg] DO Benson Ball Work Phone: [facility] 09-30-2023 10:26-0500 Body height 182.88 cm DO Benson Ball Work Phone: [facility] 09-30-2023 10:26-0500 Body mass index (BMI) [Ratio] 23.6 kg/m2 DO Benson Ball Work Phone: [facility] 09-30-2023 10:26-0500 Body weight 79.09 kg DO Benson Ball Work Phone: [facility] 09-30-2023 10:26-0500 Diastolic blood pressure 65 mm[Hg] DO Benson Ball Work Phone: [facility] 09-30-2023 10:26-0500 Heart rate 93 /min DO Benson Ball Work Phone: [facility] 09-30-2023 10:26-0500 Respiratory rate 12 /min DO Benson Ball Work Phone: [facility] 09-30-2023 10:26-0500 Systolic blood pressure 167 mm[Hg] DO Benson Ball Work Phone: [facility] 08-05-2023 05:03-0500 Diastolic blood pressure 77 mm[Hg] DO Benson Ball Work Phone: [facility] 08-05-2023 05:03-0500 Heart rate 97 /min DO Benson Ball Work Phone: [facility] 08-05-2023 05:03-0500 Respiratory rate 18 /min DO Benson Ball Work Phone: [facility] 08-05-2023 05:03-0500 SaO2% (BldA) [Mass fraction] 99 % DO Benson Ball Work Phone: [facility] 08-05-2023 05:03-0500 Systolic blood pressure 173 mm[Hg] DO Benson Ball Work Phone: [facility] 08-05-2023 00:36-0500 Body height 182.88 cm DO Benson Ball Work Phone: [facility] 08-05-2023 00:36-0500 Body temperature 97.5 [degF] DO Benson Ball Work Phone: [facility] 08-05-2023 00:36-0500 Body weight 80.9 kg DO Benson Ball Work Phone: [facility] 07-29-2023 10:30-0500 Body height 177.8 cm Benson Ball Other [facility] [employer] Other 07-29-2023 10:30-0500 Body mass index (BMI) [Ratio] 25.57 kg/m2 Benson Ball Other [employer] Other 07-29-2023 10:30-0500 Body weight 80.83 kg Benson Ball Other [facility] [facility] Other 07-29-2023 10:30-0500 Diastolic blood pressure 73 mm[Hg] Benson Ball Other [facility] [facility] Other 07-29-2023 10:30-0500 Respiratory rate 12 /min Benson Ball Other [facility] [facility] Other 07-29-2023 10:30-0500 Systolic blood pressure 191 mm[Hg] Benson Ball Other [employer] [facility] Other 04-25-2023 11:30-0400 Body height 177.8 cm Benson Ball Other [facility] [facility] Other 04-25-2023 11:30-0400 Body mass index (BMI) [Ratio] 25.42 kg/m2 Benson Ball Other [facility] Other 04-25-2023 11:30-0400 Body weight 80.38 kg Benson Ball Other [employer] [facility] Other 04-25-2023 11:30-0400 Diastolic blood pressure 80 mm[Hg] Benson Ball Other [facility] [facility] Other 04-25-2023 11:30-0400 Respiratory rate 12 /min Benson Ball Other [facility] Other 04-25-2023 11:30-0400 Systolic blood pressure 150 mm[Hg] Benson Ball Other [facility] Other 01-23-2023 11:00-0400 Body height 177.8 cm Benson Ball Other [facility] [facility] Other 01-23-2023 11:00-0400 Body mass index (BMI) [Ratio] 25.57 kg/m2 Benson Ball Other [facility] [facility] Other 01-23-2023 11:00-0400 Body weight 80.83 kg Benson Ball Other [facility] Other 01-23-2023 11:00-0400 Diastolic blood pressure 57 mm[Hg] Benson Ball Other [facility] [facility] Other 01-23-2023 11:00-0400 Respiratory rate 12 /min Benson Ball Other [facility] [facility] Other 01-23-2023 11:00-0400 Systolic blood pressure 146 mm[Hg] Benson Ball Other [employer] [facility] Other 10-23-2022 12:00-0400 Body height 177.8 cm Besnon Ball Other [facility] Other 10-23-2022 12:00-0400 Body mass index (BMI) [Ratio] 25.82 kg/m2 Benson Ball Other [facility] Other 10-23-2022 12:00-0400 Body weight 81.65 kg Benson Ball Other [facility] Other 10-23-2022 12:00-0400 Diastolic blood pressure 72 mm[Hg] Benson Ball Other [employer] Other 10-23-2022 12:00-0400 Respiratory rate 12 /min Benson Ball Other [employer] Other 10-23-2022 12:00-0400 Systolic blood pressure 158 mm[Hg] Benson Ball Other [employer] Other 07-03-2022 11:14-0500 Body weight 0 kg DO Benson Ball Work Phone: [facility] 03-26-2022 15:15-0400 Body weight 0 kg DO Benson Ball Work Phone: [facility] 12-19-2021 10:04-0400 Body weight 0 kg DO Benson Ball Work Phone: [facility] Encounters Encounter Date Encounter Type Care Provider Facility Start: 04-19-2024 End: 04-19-2024 ambulatory EHAB [facility] Start: 04-02-2024 End: 04-02-2024 ambulatory DO Benson Ball Work Phone: [facility] Work Phone: Start: 04-02-2024 End: 04-02-2024 Patient encounter procedure DO Benson Mancini Work Phone: [facility] Work Phone: Start: 04-01-2024 End: 04-01-2024 ambulatory Hudson BLANCA Facility:[facility] Start: 04-01-2024 End: 04-01-2024 Lab Drop off Hudson BLANCA [facility] Start: 04-01-2024 End: 04-01-2024 ambulatory Hudson BLANCA Facility:[facility] [place] Start: 04-01-2024 End: 04-01-2024 Patient encounter procedure Hudson BLANCA [facility] Start: 02-13-2024 End: 02-13-2024 Admission to same day surgery center DO Benson Live Work Phone: [facility] Work Phone: Start: 02-13-2024 End: 02-13-2024 ambulatory DO Benson Mancini Work Phone: [facility] Work Phone: Start: 02-09-2024 End: 02-09-2024 ambulatory Hudson BLANCA Facility:[id number] Start: 02-02-2024 End: 02-02-2024 ambulatory Hudson BLANCA Facility:[facility] Start: 02-02-2024 End: 02-02-2024 Lab Drop off Hudson BLANCA [facility] Start: 02-02-2024 End: 02-02-2024 ambulatory Hudson BLANCA Facility:[facility] Start: 02-02-2024 End: 02-02-2024 Patient encounter procedure Hudson BLANCA [facility] Start: 12-31-2023 End: 12-31-2023 ambulatory DO Benson Mancini Work Phone: [facility] Work Phone: Start: 12-31-2023 End: 12-31-2023 Patient encounter procedure DO Benson Ball Work Phone: [facility] Work Phone: Start: 11-21-2023 End: 11-21-2023 Admission to same day surgery center DO Benson Mancini Work Phone: [facility] Work Phone: Start: 11-21-2023 End: 11-21-2023 ambulatory DO Benson Mancini Work Phone: [facility] Work Phone: Start: 11-03-2023 Non-patient / Non-visit DO Boone Mancini Work Phone: [facility] Work Phone: Start: 10-08-2023 Non-patient / Non-visit DO Boone Mancini Work Phone: [facility] Work Phone: Start: 10-07-2023 End: 10-07-2023 ambulatory RAJENDRA NUÑEZ [facility] Start: 09-30-2023 End: 09-30-2023 Patient encounter procedure DO Benson Ball Work Phone: [facility] Work Phone: Start: 08-14-2023 End: 08-14-2023 Emergency department patient visit LANEY DOWLING [facility] Start: 08-05-2023 End: 08-05-2023 ambulatory Benson Mancini Other [facility] [employer] Other Start: 08-05-2023 Telephone encounter Benson Herr [facility] Start: 08-05-2023 End: 08-05-2023 Emergency department patient visit DO Benson Mancini Work Phone: [facility] Work Phone: Start: 08-01-2023 End: 08-01-2023 ambulatory Benson Mancini Other [employer] Other Start: 08-01-2023 Telephone encounter Benson Mancini [facility] Start: 07-29-2023 End: 07-29-2023 ambulatory Benson Mancini Other [facility] [facility] Other Start: 07-29-2023 Patient encounter procedure Benson Mancini [facility] Start: 07-29-2023 Telephone encounter Benson FRAZIER [facility] Start: 07-25-2023 End: 07-25-2023 Admission to same day surgery center DO Benson Mancini Work Phone: [facility] Work Phone: Start: 07-25-2023 End: 07-25-2023 ambulatory DO Benson Mancini Work Phone: [facility] Work Phone: Start: 05-28-2023 End: 05-28-2023 ambulatory Benson Mancini Other [facility] Other Start: 05-28-2023 Telephone encounter Benson Live FRAZIER [facility] Start: 04-25-2023 End: 04-25-2023 ambulatory Benson Mancini Other [facility] [facility] Other Start: 04-25-2023 Office outpatient vi sit 25 minutes Benson Mancini [facility] Start: 04-22-2023 End: 04-22-2023 ambulatory Benson Mancini Facility:[facility] Start: 03-28-2023 End: 03-28-2023 ambulatory Benson Mancini Other [employer] Other Start: 03-28-2023 Telephone encounter Benson FRAZIER [facility] Start: 02-11-2023 End: 02-11-2023 ambulatory Benson Mancini Other [facility] [facility] Other Start: 02-11-2023 Telephone encounter Benson Mancini [facility] Start: 01-29-2023 End: 01-29-2023 ambulatory Benson Ball Other [facility] [facility] Other Start: 01-29-2023 Telephone encounter Benson Mancini [facility] Start: 01-23-2023 End: 01-23-2023 ambulatory Benson Mancini Other [facility] Other Start: 01-23-2023 Office outpatient vi sit 25 minutes Benson Mancini [facility] Start: 01-21-2023 End: 01-21-2023 Admission to same day surgery center DO Benson Ball Work Phone: [facility] Work Phone: Start: 01-21-2023 End: 01-21-2023 ambulatory DO Benson Ball Work Phone: [facility] Work Phone: Start: 01-13-2023 End: 01-13-2023 ambulatory Benson Mancini Other [facility] [facility] Other Start: 01-13-2023 Telephone encounter Benson Mancini [facility] Start: 12-25-2022 End: 12-25-2022 ambulatory Benson Mancini Other [facility] [facility] Other Start: 12-25-2022 Telephone encounter Benson Live [facility] Start: 12-24-2022 Telephone encounter Benson Live [facility] Start: 12-24-2022 End: 12-25-[address] HUDSON BLANCA . [employer] Other Start: 12-09-2022 Telephone encounter Benson Live [facility] Start: 12-09-2022 End: 12-09-[address] HUDSON BLANCA . [facility] [employer] Other Start: 12-05-2022 End: 12-05-2022 ambulatory Benson Mancini Other [facility] Other Start: 12-05-2022 Telephone encounter Benson Mancini [facility] Start: 12-03-2022 End: 12-03-2022 Patient encounter procedure Hudson BLANCA [facility] Start: 11-12-2022 End: 11-13-[address]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
[2024-05-05] MEDS: REGADENOSON 0.4 MG/5 ML SYRINGE IV (08:44)
--- NOTE | 2024-05-05 09:04 | PC.NURSE ---
Nursing Note Cardiac Stress Test Reviewed: Medication, allergies and patient history reviewed. Stress Test: [x ] Patient tolerated stress test well. [ ] Patient unable to tolerate walking on treadmill. Switched to Lexiscan stress test. [ ] No chest pain noted per patient [x ] Chest pain that resolved prior to leaving stress lab. [ x] No dyspnea noted. [ ] Dyspnea that resolved prior to leaving stress lab. [x ] Patient left stress lab asymptomatic and hemodynamically stable. [ ] Patient taken to the Emergency Room due to non-resolving symptoms following stress test. [ ] Patient achieved target heart rate. [ ] Patient unable to achieve target heart rate. [ ] Aminophylline administered as reversal agent to Lexiscan (Regadenoson). [ ] Nitro administered. Nursing Comments:Roughly 6-7 mionutes after Lexiscan was given pt started to have chest pressure. States it was not a pain just pressure. Pt rated it 7 or 8/10. After roughly 4 more jminutes the pain was a 4/10 and at end of test pain was gone. Pt states it was more of a pressure then a pain. Pt left stress lab with no chest pain per pt. He was taken to the cafeteria for breakfast and encouraged to drink caffeine to help clear the medication from his system. Pt states he understands. Prior to leaving stress lab i consulted with physician regarding his symptoms and his EKG readings.
== END 2024-05-05 07:40 | disposition home or self-care (01) ==
LOC: CARD 07:40
PROVIDERS: PCP Internal Medicine; Visit Provider Internal Medicine Interventional Cardiology
DX: R06.09 Other forms of dyspnea (principal); I25.10 Atherosclerotic heart disease of native coronary artery without angina pectoris
CPT/HCPCS: 93017; J2785

== ENCOUNTER 2024-05-13 11:33 | Outpatient (OUT) | payer MEDICARE, SELFPAY ==
--- OUTSIDE RECORDS SUMMARY | 2024-05-13 11:40 | XMS_ITS | CCD ---
Author Organization [facility] Care Team Providers Care Dog Raiser Name Role Phone RICHIE WALTON Attending Unavailable RICHIE WALTON Admitting Unavailable LIVE, BENSON Referring Unavailable LIVE, BENSON Primary Care Unavailable TERESITA BLACKWELL Primary Care Physician DO Benson Mancini Primary Care Provider MD Steven Coronado Attending Provider DO Benson Mancini Primary Care Provider DO Declan Moreira Attending Provider Unavailable Live, DO Knowles Primary Care Provider MD Hudson Blanca Attending Provider DO Declan Moreira Attending Provider Unavailable Benson [...] ble Live, DO Knowles Primary Care Provider [phone] MD Hudson Blanca Attending Provider DO Benson Mancini Primary Care Provider [phone] MD Hudson Blanca Attending Provider MD Jose D Hercules Jr Emergency Provider DO Benson Mancini Primary Care Provider Harish, DO Manriquez Attending Provider Unavailable MD Hudson Blanca Attending Provider Hudson Blanca Attending Unavailable Benson Mancini Primary Care Unavailable Evangelist, Hudson Admitting Unavailable Live, Benson Primary Care Unavailable Moreira, Declan Admitting Unavailable Moreira, Declan Attending Unavailable Blanca, Hudson Admitting Unavailable Blanca, Hudson Attending Unavailable Ball, Benson Primary Care Unavailable Ball, Benson Primary Care Unavailable Moreira, Declan Admitting Unavailable Moreira, Declan Attending Unavailable Live, Benson Primary Care Unavailable Jose D Hercules Jr Admitting Unavailable Jose D Hercules Jr Attending Unavailable DO Benson aMncini Primary Care Provider BENSON MANCINI Primary Care Physician [phone] Hudson BLANCA Attending Unavailable BLANCA, Hudson R Admitting Unavailable BLANCA, Hudson R Attending Unavailable BLANCA, Hudson R Attending Unavailable BLANCA, Hudson R Attending Unavailable BLANCA, Hudson R Admitting Unavailable BLANCA, Hudson R Attending Unavailable LANEY DOWLING Referring Unavailable ELTAHAWY, EHAB Attending Unavailable RAJENDRA NUÑEZ Attending Unavailable Allergies Allergy Classification Reported Allergen(s) Allergy Type Date of Onset Reaction(s) Facility (20 sources) traMADol; Translations: [tramadol] Drug Allergy 8 Nausea, Unknown [facility] (1 source) patient allergy list reviewed by nurse or physicia Propensity to adverse reactions Comment:Done eigital Other (2 sources) No Known Medication Allergies; Translations: [No Known Medication Allergies] Propensity to adverse reactions (disorder) [facility] Repository (1 source) rOPINIRole; Translations: [ROPINIROLE] Drug Allergy 2 [facility] Repository Medications Current Medications Medication Drug [...] kristina th every eight hours for pain Corsica 325 mg-5 mg oral tablet 1 tab(s), Oral, q8hr for pain, 15 tab(s), Refill(s) 0, [facility] Start Date: 03/03/20 Status: Ordered Start: 02-25-2020 take 1 tablet by kristina th once Corsica 325 mg-5 mg oral tablet 1 tab(s), [...] day(s), # 14 tab(s), Refills(s) 0, Pharmacy: [id number] Start Date: 04/01/24 Stop Date: [...] 20 cap(s), Refills(s) 0, Pharmacy: [facility] #[id number] Start Date: 10/21/22 Status: Ordered Start: 06-19-2022 End: 06-26-2022 take 1 capsule by mouth every twelve hours Keflex 500 mg Cap 500 mg = 1 cap(s), Oral, q12hr, X 7 day(s), # 14 cap(s), Refills(s) 0, Pharmacy: [facility] #[id number] Start Date: 06/19/22 Stop Date: 06/26/22 Status: Ordered Start: 04-14-2020 take 1 capsule by mo [facility] twice daily Keflex 500 mg Cap 500 mg = 1 cap(s), Oral, BID, # 14 cap(s), Refills(s) 0, Pharmacy: [facility] [address] Start Date: 04/14/20 Status: Ordered clopidogrel [...] 05, 2023 12:00am take 1 tablet by [facility] every twenty-four hours Ferrous Sulfate 325 [...] MG PO Daily August 05, 2023 1:00am Twkedbbksefb-Lkxrptza-P utein (Centrum Silver) Tablet (5 sources) Start: 08-05-2023 take 1 tablet by mouth once daily Multivitamin-Minerals- Lutein (Centrum Silver) Tablet Active 1 TAB PO Daily August 05, 2023 1:00am Start: 08-05-2023 take 1 tablet by kristina th once daily Dfhjeadzuesk-Sjafdvbs-Uuuxld (Centrum Silver) Tablet Active 1 TAB PO [...] BID, # 180 tab(s), Refills(s) 3, Pharmacy: [facility] Start Date: 07/10/20 Status: Ordered [...] day(s), 20 tab(s), Refill(s) 0, [facility] #[id number] Start Date: 11/04/22 Stop Date: 11/14/22 Status: Ordered Start: 06-11-2021 Bactrim DS 800 mg-160 mg Tab 160 mg, Oral, q12hr, 14 tab(s), Refill(s) 0, [facility] [facility] Start Date: 06/11/21 Status: Ordered Start: 12-01-2017 End: 12-01-2017 Sulfamethoxazole-Trimethopri m Discontinued TABLET December 01, 2017 12:00am December 01, 2017 8:44am tamsulosin hydrochloride 0.4 mg oral capsule (4 sources) alpha-Adrenergic Erica Start: 12-27-2022 take 1 capsule by mouth twice daily tamsulosin 0.4 mg Cap 0.4 mg = 1 cap(s), Oral, BID, # 30 cap(s), Refills(s) 0, Pharmacy: [facility] #[id number] Start Date: 12/27/22 Status: Ordered Completed/Discontinued Medications [...] procedure, # 2 tab(s), Refills(s) 0, Pharmacy: [facility] #[id number] Start Date: 01/20/24 Status: Ordered Start: 04-04-2022 take 1 tablet by kristina once daily Cipro 500 mg Tab 500 mg = 1 tab(s), Oral, Daily, Take 1 tablet the day before the procedure and 1 tablet after the procedure, # 2 tab(s), Refills(s) 0, Pharmacy: [facility] #[id number] Start Date: 11/26/22 Status: Ordered Start: 10-30-2021 [facility] Cipro 500 mg Tab 500 mg = 1 tab(s), Oral, Daily, Take 1 tablet the day before the procedure and 1 tablet after the procedure, # 2 tab(s), Refills(s) 0, Pharmacy: [id number] 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] Onset: 8 [...] aftercare (3 sources) Drug therapy finding; Translations: [snf (current) use of opiate analgesic] 12-29-2023 Episodic Other aftercare (3 sources) snf (current) use of opiate analgesic; Translations: [Long-term [...] and due to atherosclerosis; Translations: [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, bilateral [...] Onset: 05-01-2018 Episodic Other aftercare (1 source) snf (current) use of aspirin; Translations: [HALFWAY CURRENT USE OF ASPIRIN] Onset: 05-01-2022 Episodic Other aftercare (1 source) 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 Spoke with patient just now and made him aware. He said he was having some right-sided rib cage pain and wasn't getting around very well. I told him if the pain was in his chest he needs to go to the ED REBECCA. He said he will come to the office tomorrow to have event monitor placed. I told him at that time we will give him lab work orders for pre-cath. He verbalized understanding and will come in tomorrow. Keely and April to enter orders. Normal [facility] Orders Onlyon 05-10-2024 Orders Only [id number] Arian Olivera 1940 [facility] Provider Department Center 05/10/2024 [id number], TANA CARD [facility] No family history on file Normal [facility] Reminderson 04-27-2024 Reminders Reminders - From: Sierra Rizzo To: EU - Recalls Evangelist; Sent: 04/27/2024 16:14:14 EDT Show up: 06/27/2024 16:14:00 EST Subject: Neph tube change Due Date/Time: 07/26/2024 16:14:00 EST Reminder/Recall Patient is due in Jul 2024 for 3 month neph tube change [place] [facility] Normal [facility] Reminders Reminders - From: Sierra Rizzo To: EU - Recalllatisha Blanca; Sent: 10/31/2023 09:54:34 EDT Show up: 01/05/2024 09:54:00 EDT Subject: neph tube change Due Date/Time: 01/28/2024 09:54:00 EDT Reminder/Recall Patient will be due in January 2024 for 3 month neph tube change at [facility] [place]/m on [facility] IR vm.SLICK Wray called back, pt sched for 02/13/24 @ 8:30am. Pt will be due in Apr 2024.LG Spoke to pt, he cannot do 05/04/24. L/m on [facility] IR sched line to sched with Kamala .SLICK Wray called back, pt sched for 05/18/24 @ 7:45am. Order faxed [phone].LG Normal [facility] Office Visiton 04-19-2024 Follow-up visit [id number] Arian Olivera 1940 M Date Provider Department Center 04/19/2024 Reji-EMANUEL GREGG CARD [facility] No family history on file Level of Service:76409 SC OFFICE/OUTPATIENT ESTABLISHED MOD MDM 30 MIN Normal [facility] Reminderson 04-12-2024 Reminders Reminders - From: Sierra Rizzo To: EU - Recalls Evangelist; Sent: 04/12/2024 09:13:14 EDT Show up: 06/27/2024 09:12:00 EST Subject: neph tube change Due Date/Time: 07/19/2024 09:12:00 EST Reminder/Recall Patient needs right neph tube change in Jul 2024, 3 mo Normal [facility] C Urineon 04-07-2024 Bacteria identified Cx Nom (U) Microbiology PROCEDURE: Urine Culture [R1] SOURCE: U CleanCatch BODY SITE: COLLECTED DATE/TIME: 04/01/2024 12:43 EDT RECEIVED DATE/TIME: 04/01/2024 18:01 EDT START DATE/TIME: 04/01/2024 18:01 EDT FREE TEXT SOURCE: EVANGELIST CARDOSO, Hudson [...] RACHELLE=mcg/m;(mg/L), S*=Predicted susceptible interp, R*=Predicted resistant interp Morazr Promir Alcfae Antibiotic RACHELLE Dilutn RACHELLE Interp [...] Locations R1: This test was performed at: [facility], [address] [place] [address], [phone] , [place], Normal [facility] Comment on above: Performed By: #### 2 [id number] #### [facility] [address] [place] [id number] IR nephrostomy tube chg UNon 02-13-2024 IR nephrostomy tube chg UN [facility] [place] [address] Interventional Radiology Rpt Signed Patient: Arian Olivera MR#: [id number] : 1940 Acct:[id number] Age/Sex: 83 / M ADM Date: 02/13/24 Loc: IR Room: Type: [facility] Attending Dr: Hudson Blanca MD Copies [...] nephrostomy tube was removed. A new 12 Martiniquais nephrostomy tube was administered into the right renal pelvis with wire guidance. The guidewire removed and pigtail locked. Contrast administered confirming adequate position. The nephrostomy tube was secured to skin. No immediate complications. IR/IR nephrostomy tube chg UN IMPRESSION: Adequate replacement of 12 Martiniquais right percutaneous nephrostomy tube. Impression dictated by: Declan Moreira M.D.02/13/2024 12:28 PM Dictation Location: [place] [address] Transcribed By: [facility] 02/13/24 1228 Dictated By: Declan Moreira DO 02/13/24 1223 Signed By: 02/13/24 1228 Normal [facility] UroVysion Fish and Urine Cyt o ([facility])on 02-06-2024 UVFISH & UC Diagnosis Info Invalid Interpretation Code [facility] Comment on above: Result Comment: A:Ur ine,Urine:Voided [...] on: 02/06/2024 16:35:49 Performed By: #### 1 [id number] #### [facility] [address] [place] [address] Ambulatory Visit Summaryon 0 02-02-2024 Ambulatory Visit [...] for choosing us for your care. Normal [facility] UroVysion Fish and Urine Cyt o ([facility])on 02-02-2024 UVUC Method of Extraction Voided Normal [facility] Comment on above: Performed By: #### 1 [id number] #### [facility] [address] [place] [address] [facility] Number of Jars 1 Invalid Interpretation Code [facility] Comment on above: Performed By: #### 1 [id number] #### [facility] [address] [place] [address] [facility] Specimen Urine Normal [facility] Comment on above: Performed By: #### 1 [id number] #### [facility] [address] [place] [address] [facility] Type of Service Technical Only Normal [facility] Comment on above: Performed By: #### 1 [id number] #### [facility] [address] [place] [address] Reminderson 01-27-2024 Reminders Reminders - From: Sierra Rizzo To: EU - Recalls Blanca; Sent: 01/27/2024 12:47:06 EDT Show up: 11/25/2024 12:46:00 EDT Subject: cysto/fish/cytol Due Date/Time: 12/20/2024 12:47:00 EDT Reminder/Recall Patient is due in January 2025 for 1 year cysto/fish/cytol, bt ck Normal [facility] Consent for Procedure/Surger yon 01-21-2024 Consent for Procedure/Surgery [id number] #1.00TIFF Normal [facility] IR nephrostomy tube chg UNon 11-21-2023 IR nephrostomy tube chg UN [facility] [place] [address] Interventional Radiology Rpt Signed Patient: Arian Olivera MR#: [id number] : 1940 Acct:[id number] Age/Sex: 83 / M ADM Date: 11/21/23 Loc: IR Room: Type: [facility] Attending Dr: Declan Moreira DO Copies [...] Declan Moreira M.D.11/21/2023 12:48 PM Dictation Location: [place] [address] Transcribed By: [facility] 11/21/23 1248 Dictated By: Declan Moreira DO 11/21/23 1239 Signed By: 11/21/23 1248 Normal [facility] Amorphous urine sedimenton 0 11-03-2023 Amorphous sediment LM Ql (Urine sed) RARE [facility] Automated epithelial cells c ount in urine sediment (number/area)on 11-03-2023 Epithelial cells Auto (Urine sed) [#/Area] FEW #/LPF NONE/RARE [facility] Automated leukocytes count i n urine sediment (number/area)on 11-03-2023 WBC Auto (Urine sed) [#/Area] 5-10 #/HPF 0-2 [facility] Automated urine sediment [place] cium oxalate crystal count by microscopy (number/high powon 11-03-2023 Calcium oxalate crystals LM.HPF (Urine sed) [#/Area] RARE [facility] Automated urine specific gra vity by refractometryon 11-03-2023 Specific gravity Refractometry automated (U) [Rel density] 1.020 1.005-1.025 [facility] Bilirubin Auto test strip (U ) [Mass/Vol]on 11-03-2023 Bilirubin (U) [Mass/Vol] Negative NEGATIVE [facility] Casts typing in urine sedime nt by light microscopyon 11-03-2023 Casts LM Nom (Urine sed) NONE SEEN #/LPF NONE SEEN [facility] Color Auto (U)on 11-03-2023 Color (U) LT. YELLOW YELLOW [facility] Erythrocyte distribution wid th Auto (RBC) [Ratio]on 11-03-2023 Erythrocyte distribution width (RBC) [Ratio] 13.7 % 11.0-15.0 [facility] Estimated glomerular filtrat ion rate (GFR) non- Americanon 11-03-2023 GFR/1.73 sq M.predicted among non-blacks MDRD (S/P/Bld) [Vol rate/Area] 25 mL/min/{1.73_m2} >=60 [facility] Hematocrit Auto (Bld) [Volum e fraction]on 11-03-2023 Hematocrit (Bld) [Volume fraction] 34.3 % 42.0-54.0 [facility] Hemoglobin [Mass/volume] in Bloodon 11-03-2023 Hemoglobin (Bld) [Mass/Vol] 11.0 g/dL 14.0-18.0 [facility] Ketones Auto test strip (U) [Mass/Vol]on 11-03-2023 Ketones (U) [Mass/Vol] Negative NEGATIVE [facility] Laboratory - Chemistry and C hemistry - challengeon 11-03-2023 Albumin [Mass/Vol] 3.5 g/dL 3.4-5.0 [facility] Calcium [Mass/Vol] 9.0 mg/dL 8.5-10.1 [facility] Chloride [Moles/Vol] 99 mmol/L 98-107 [facility] CO2 [Moles/Vol] 22.2 mmol/L 21.0-32.0 [facility] Creatinine [Mass/Vol] 2.48 mg/dL 0.70-1.30 [facility] GFR/1.73 sq M.predicted MDRD (S/P/Bld) [Vol rate/Area] 31 mL/min/{1.73_m2} >=60 [facility] Glucose [Mass/Vol] 137 mg/dL 74-106 [facility] Magnesium [Mass/Vol] 1.5 mg/dL 1.8-2.4 [facility] Potassium [Moles/Vol] 4.8 mmol/L 3.5-5.1 [facility] Sodium [Moles/Vol] 133 mmol/L 136-145 [facility] Urea nitrogen [Mass/Vol] 42.0 mg/dL 7.0-18.0 [facility] Urea nitrogen/Creatinine [Mass ratio] 16.9 mg/mg [facility] Leukocytes [#/volume] correc ronald for nucleated erythrocytes in Blood by Automated counon 11-03-2023 WBC corrected for nucl RBC Auto (Bld) [#/Vol] 5.9 10 3/uL 4.0-11.0 [facility] MCH Auto (RBC) [Entitic mass ]on 11-03-2023 MCH (RBC) [Entitic mass] 30.0 pg 25.9-34.0 [facility] MCHC Auto (RBC) [Mass/Vol]on 11-03-2023 MCHC (RBC) [Mass/Vol] 32.1 g/dL 29.9-35.2 [facility] MCV Auto (RBC) [Entitic vol] on 11-03-2023 MCV (RBC) [Entitic vol] 93.5 fL 80.0-94.0 [facility] Microalbumin [Mass/volume] i n Urineon 11-03-2023 Albumin DL <= 20 mg/L (U) [Mass/Vol] 20.1 mg/dL <=30.0 [facility] Mucus LM Ql (Urine sed)on Mucus Ql (Urine sed) NONE SEEN NONE SEEN [facility] No Panel Informationon 11-02 Phosphorus Level 3.9 mg/dL 2.6-4.7 [facility] Urine Random Creatinine 54.23 mg/dL 20.00-300.00 [facility] Platelet mean volume Auto (B ld) [Entitic vol]on 11-03-2023 Platelet mean volume (Bld) [Entitic vol] 10.3 fL 9.5-13.5 [facility] Platelets Auto (Bld) [#/Vol] on 11-03-2023 Platelets (Bld) [#/Vol] 144 10 3/uL 150-450 [facility] Protein Auto test strip (U) [Mass/Vol]on 11-03-2023 Protein (U) [Mass/Vol] 100 mg/dL NEG/TRACE [facility] RBC Auto (Bld) [#/Vol]on RBC (Bld) [#/Vol] 3.67 10 6/uL 4.70-6.10 [facility] Serum or plasma anion gap de terminationon 11-03-2023 Anion gap [Moles/Vol] 16.6 mmol/L [facility] Specific gravity Auto test s trip (U) [Rel density]on 11-03-2023 Specific gravity (U) [Rel density] CLEAR CLEAR [facility] Urine bacteria detection by automated methodon 11-03-2023 Bacteria Auto Ql (U) LARGE #/HPF NONE SEEN [facility] Urine glucose measurement by test strip (mass/volume)on 11-03-2023 Glucose Test strip (U) [Mass/Vol] Negative NEGATIVE [facility] Urine hemoglobin detection b y automated test stripon 11-03-2023 Hemoglobin Auto test strip Ql (U) LARGE NEGATIVE [facility] Urine microalbumin/creatinin e mass ratioon 11-03-2023 Albumin/Creatinine DL <= 20 mg/L (U) [Mass ratio] 370.6 mg/g 0.0-29.9 [facility] Comment on above: NO MICROALBUMINURIA 0-29 MG/GCLINICAL MICROALBUMINURIA 30-300 MG/GMACROALBUMINURIA >300 MG/G Urine nitrite detection by a utomated test stripon 11-03-2023 Nitrite Auto test strip Ql (U) MODERATE NEGATIVE [facility] Nitrite Auto test strip Ql (U) Positive NEGATIVE [facility] Urine sediment crystal ident ification by light microscopyon 11-03-2023 Crystals LM Nom (Urine sed) Seen #/HPF None Seen [facility] Urine sediment leukocyte cou nt by microscopy (number/high power field)on 11-03-2023 WBC LM.HPF (Urine sed) [#/Area] 10-20 #/HPF NONE SEEN [facility] Urobilinogen Auto test strip (U) [Mass/Vol]on 11-03-2023 Urobilinogen Qn (U) 0.2 {Raffi'U}/dL 0.2-1.0 [facility] pH Auto test strip (U)on pH (U) 7.5 [pH] 5.0-9.0 [facility] Physician Orderon 10-31-2023 Physician Order [id number] #1.00TIFF Normal [facility] Reminderson 10-31-2023 Reminders - From: Sierra Rizzo To: EU - Recalls Blanca; Cc: Sierra Rizzo; Sent: 07/08/2023 09:01:46 EST Show up: 08/28/2023 09:01:00 EST Subject: Neph tube change Due Date/Time: 09/22/2023 09:01:00 EST Reminder/Recall Patient is due in September 2023 for 3 month RT neph tube change at [facility] Patient had neph tube changed in Jul by Dr. Gonsalez due to problems. Pt will be due in October 2023.LG Spoke to pt, he is available all month. l/m on [facility] interventional sched vm to sched.LG Kamala called back, pt sched for 11/20/23 @ 8am, Order faxed . new thread. Normal [facility] Office Visiton 10-07-2023 Follow-up visit [id number] Arian Olivera 1940 M Date Provider Department Center 10/07/2023 RAJENDRA VILLEGAS CARD [facility] No family history on file Level of Service:80461 SC OFFICE/OUTPATIENT ESTABLISHED LOW MDM 20 MIN Normal [facility] Physician Orderon 08-06-2023 Physician Order [id number] #1.00TIFF Normal [facility] Capillary blood glucose cecilia urement by glucometer (mass/volume)Ordered By: PROVIDER TEMP on 08-05-2023 Glucose [Mass/Vol] 138 mg/dL Normal [facility] Comment on above: Random Glucose Refer ence Range is dependent on time and content of last meal. Glucose of more than 200 mg/dL in a nonstressed, ambulatory subject supports the diagnosis of Diabetes Mellitus. Result Comment: [place] om Glucose Reference Range is dependent on time and content of last meal. Glucose of more than 200 mg/dL in a nonstressed, ambulatory subject supports the diagnosis of Diabetes Mellitus. PERFORMED BY: [facility] [address] [place] [address] PATHOLOGIST METAL RIVETING MACHINE OPERATOR CAMI RAYA M.D. Performed By: #### G LUTA #### Point of Care testing , ECG 12 lead ECGon 08-05-2023 ECG 12 lead ECG [facility] Main [place] [id number] Electrocardiograph Report Signed Patient: Arian Olivera MR#: [id number] : 1940 Acct:[id number] Age/Sex: 83 / M ADM Date: 08/05/23 Loc: ER Room: Type: [facility] Attending Dr: Ordering Provider: Jose D Hercules [...] available Confirmed by JOSE D HERCULES MD ([id number]) on 08/05/2023 5:39:43 AM Referred By: Electronically Signed By:JOSE D HERCULES MD Transcribed By: MUS Signed By Jose D Hercules Jr, MD 0539 Normal [facility] RAD - MISCon 07-29-2023 RAD - MIS [id number] #1.00TIFF Normal [facility] IR nephrostomy tube chg UNon 07-25-2023 IR nephrostomy tube chg UN [facility] Main [place] [id number] Interventional Radiology Rpt Signed Patient: Arian Olivera MR#: [id number] : 1940 Acct:[id number] Age/Sex: 83 / M ADM Date: 07/25/23 Loc: IR Room: Type: [facility] Attending Dr: Hudson Blanca MD Copies [...] nephrostomy tube. The tube was removed. 12 Martiniquais RIGHT nephrostomy tube was administered with a wire guidance. The tube is in adequate position and was locked. Contrast was administered confirming adequate position. No immediate complications. IR/IR nephrostomy tube chg UN IMPRESSION: Adequate exchange of 12 Martiniquais RIGHT nephrostomy tube. Impression dictated by: Declan Moreira M.D.07/25/2023 11:15 AM Dictation Location: [place] [address] Transcribed By: [facility] 07/25/23 1115 Dictated By: Declan Moreira DO 07/25/23 1109 Signed By: 07/25/23 1115 Normal [facility] Physician Orderon 07-08-2023 Physician Order [id number] #1.00TIFF Normal [facility] IR nephrostomy tube chg UNon 04-22-2023 IR nephrostomy tube chg UN [facility] [place] [address] Interventional Radiology Rpt Signed Patient: Arina Olivera MR#: [id number] : 1940 Acct:[id number] Age/Sex: 83 / M ADM Date: 04/22/23 Loc: IR Room: Type: [facility] Attending Dr: Declan Moreira DO Copies to: Declan Moreira DO Ordering Provider: Declan Moreira DO Date of Service: 04/22/23 IR/IR nephrostomy tube chg UN: RT NEPH TUBE EXCHANGE Interventional radiology nephrostomy tube exchange Cumulative Air Kerma in mGy: 43.4 mGy. One image obtained. Right-sided nephrostomy tube was exchanged. 12 Martiniquais nephrostomy tube utilized. Tube was advanced with a wire guidance. Contrast was administered with adequate position noted. IR/IR nephrostomy tube chg UN IMPRESSION: Successful exchange of the RIGHT percutaneous nephrostomy tube. Impression dictated by: Declan Moreira M.D.04/22/2023 11:20 AM Dictation Location: [place] [address] Transcribed By: [facility] 04/22/23 1120 Dictated By: Declan Moreira DO 04/22/23 1117 Signed By: 04/22/23 1120 Normal [facility] BUNon 12-24-2022 Urea nitrogen [Mass/Vol] 40.0 mg/dL Critically high 7.0-18.0 [facility] Comment on above: Performed By: #### H H #### [facility] [address] [address] [address] Lilly Cordova CREATININEon 12-24-2022 Creatinine [Mass/Vol] 2.33 mg/dL Critically high 0.70-1.30 [facility] Comment on above: Performed By: #### H H #### [facility] [address] [address] [address] Lilly Cordova EGFR-AF SAMOAN 33 mL/min/1.73m2 Critically low >=60 [facility] Comment on above: Performed By: #### H H #### [facility] [address] [address] [address] Lilly Cordova EGFR-NON AF SAMOAN 27 mL/min/1.73m2 Critically low >=60 [facility] Comment on above: Performed By: #### H H #### [facility] [address] [address] [address] ABD/PELVIS WO CONon [...] by: GUSTAVO BUSTILLO Date: 2022-12-24 10:21 Normal [facility] XR KUB 1 VIEWon 11-12-2022 XR KUB [...] by: BETZY JAMES Date: 2022-11-12 10:01 Normal [facility] CULTURE URINEon 11-07-2022 CULTURE URINE Isolate 1 [...] F Trimethoprim/Sulfame thoxazole <=20 S F Normal [facility] Comment on above: Performed By: #### H H #### [facility] [address] [place] [address] Dr. Lilly Cordova PTH INTACTon 11-05-2022 PTH, Intact 46 pg/mL Normal 15-65 [facility] Comment on above: Performed By: #### P THINT #### [facility] [address] [place] [address] Dr. Lilly Cordova ALBUMINon 11-04-2022 Albumin [Mass/Vol] 3.6 g/dL Normal 3.4-5.0 [facility] Comment on above: Performed By: #### B MP, PHOS, MG, ALB, URIC #### [facility] [address] [place] [address] Dr. Lilly Cordova HEMOGRAM AND PLATELon 2022 Hematocrit (Bld) [Volume fraction] 34.7 % Critically low 42.0-54.0 [facility] Comment on above: Performed By: #### H H #### [facility] [address] [place] [address] Dr. Lilly Cordova Hemoglobin (Bld) [Mass/Vol] 11.7 g/dL Critically low 14.0-18.0 [facility] Comment on above: Performed By: #### H H #### [facility] [address] [place] [address] Dr. Lilly Cordova MCH (RBC) [Entitic mass] 31.0 pg Normal 25.9-34.0 [facility] Comment on above: Performed By: #### H H #### [facility] [address] [place] [address] Dr. Lilly Cordova MCHC (RBC) [Mass/Vol] 33.7 g/dL Normal 29.9-35.2 [facility] Comment on above: Performed By: #### H H #### [facility] [address] [place] [address] Dr. Lilly Cordova MCV (RBC) [Entitic vol] 91.8 fL Normal 80.0-94.0 [facility] Comment on above: Performed By: #### H H #### [facility] [address] [place] [address] Dr. Lilly Cordova PLT 129 103/ul Critically low 150-450 [facility] Comment on above: Performed By: #### H H #### [facility] [address] [place] [address] Dr. Lilly Cordova RBC 3.78 106/ul Critically low 4.70-6.10 [facility] Comment on above: Performed By: #### H H #### [facility] [address] [place] [address] Dr. Lilly Cordova WBC 6.2 103/ul Normal 4.0-11.0 [facility] Comment on above: Performed By: #### H H #### [facility] [address] [place] [address] Dr. Lilly Cordova MAGNESIUMon 11-04-2022 Magnesium [Mass/Vol] 1.5 mg/dL Critically low 1.8-2.4 [facility] Comment on above: Performed By: #### B MP, PHOS, MG, ALB, URIC #### [facility] [address] [place] [address] Dr. Lilly Cordova MICROALB CREAT RATIO RANDOMo n 11-04-2022 mALB 13.5 mg/L Normal <=30.0 [facility] Comment on above: Performed By: #### M CRR #### [facility] [address] [place] [address] Dr. Lilly Cordova MALB CR RATIO 238.9 mg/g Critically high 0.0-29.9 [facility] Comment on above: Performed By: #### M CRR #### [facility] [address] [place] [address] Dr. Lilly Cordova MALNancy CR RATIO RANGE SEE BELOW Normal [facility] Comment on above: Result Comment: NO M ICROALBUMINURIA 0-29 MG/G CLINICAL MICROALBUMINURIA 30-300 MG/G MACROALBUMINURIA >300 MG/G Performed By: #### M CRR #### [facility] [address] [place] [address] Dr. Lilly Cordova URINE CREAT 56.52 mg/dL Normal 20.00-300.00 [facility] Comment on above: Performed By: #### M CRR #### [facility] [address] [place] [address] Dr. Lilly Cordova PHOSPHORUSon 11-04-2022 Phosphate [Mass/Vol] 3.0 mg/dL Normal 2.6-4.7 [facility] Comment on above: Performed By: #### B MP, PHOS, MG, ALB, URIC #### [facility] [address] [place] [address] Dr. Lilly Cordova PROF CHEM 8 (BAS METB)on Anion gap [Moles/Vol] 13.0 mmol/L Normal [facility] Comment on above: Performed By: #### B MP, PHOS, MG, ALB, URIC #### [facility] [address] [place] [address] Dr. Lilly Cordova Calcium [Mass/Vol] 9.1 mg/dL Normal 8.5-10.1 [facility] Comment on above: Performed By: #### B MP, PHOS, MG, ALB, URIC #### [facility] [address] [place] [address] Dr. Lilly Cordova Chloride [Moles/Vol] 102 mmol/L Normal 98-107 [facility] Comment on above: Performed By: #### B MP, PHOS, MG, ALB, URIC #### [facility] [address] [place] [address] Dr. Lilly Cordova CO2 [Moles/Vol] 25.0 mmol/L Normal 21.0-32.0 [facility] Comment on above: Performed By: #### B MP, PHOS, MG, ALB, URIC #### [facility] [address] [place] [address] Dr. Lilly Cordova Creatinine [Mass/Vol] 1.79 mg/dL Critically high 0.70-1.30 [facility] Comment on above: Performed By: #### B MP, PHOS, MG, ALB, URIC #### [facility] [address] [place] [address] Dr. Lilly Cordova EGFR-AF SAMOAN 45 mL/min/1.73m2 Critically low >=60 [facility] Comment on above: Performed By: #### B MP, PHOS, MG, ALB, URIC #### [facility] [address] [place] [address] Dr. Lilly Cordova EGFR-NON AF SAMOAN 37 mL/min/1.73m2 Critically low >=60 [facility] Comment on above: Performed By: #### B MP, PHOS, MG, ALB, URIC #### [facility] [address] [place] [address] Dr. Lilly Cordova Glucose [Mass/Vol] 106 mg/dL Normal 74-106 [facility] Comment on above: Performed By: #### B MP, PHOS, MG, ALB, URIC #### [facility] [address] [place] [address] Dr. Lilly Cordova Potassium [Moles/Vol] 5.0 mmol/L Normal 3.5-5.1 [facility] Comment on above: Performed By: #### B MP, PHOS, MG, ALB, URIC #### [facility] [address] [place] [address] Dr. Lilly Cordova Sodium [Moles/Vol] 135 mmol/L Critically low 136-145 [facility] Comment on above: Performed By: #### B MP, PHOS, MG, ALB, URIC #### [facility] [address] [place] [address] Dr. Lilly Cordova Urea nitrogen [Mass/Vol] 35.0 mg/dL Critically high 7.0-18.0 [facility] Comment on above: Performed By: #### B MP, PHOS, MG, ALB, URIC #### [facility] [address] [place] [address] Dr. Lilly Cordova Urea nitrogen/Creatinine [Mass ratio] 19.6 mg/mg Normal [facility] Comment on above: Performed By: #### B MP, PHOS, MG, ALB, URIC #### [facility] [address] [place] [address] Dr. Lilly Cordova UA (CLEAN/CATCH) OPERATOR LIGHTS/MICRO I F IND.on 11-04-2022 Bilirubin Ql (U) Negative Normal NEGATIVE [facility] Comment on above: Performed By: #### H H #### [facility] [address] [place] [address] Dr. Lilly Cordova Clarity (U) CLEAR Normal CLEAR [facility] Comment on above: Performed By: #### H H #### [facility] [address] [place] [address] Dr. Lilly Cordova Color (U) LT. YELLOW Normal YELLOW [facility] Comment on above: Performed By: #### H H #### [facility] [address] [place] [address] Dr. Lilly Cordova Glucose Ql (U) Negative Normal NEGATIVE [facility] Comment on above: Performed By: #### H H #### [facility] [address] [place] [address] Dr. Lilly Cordova Hemoglobin Ql (U) MODERATE Abnormal NEGATIVE [facility] Comment on above: Performed By: #### H H #### [facility] [address] [place] [address] Dr. Lilly Cordova Ketones Ql (U) Negative Normal NEGATIVE [facility] Comment on above: Performed By: #### H H #### [facility] [address] [place] [address] Dr. Lilly Cordova LEUKOCYTES MODERATE Abnormal NEGATIVE [facility] Comment on above: Performed By: #### H H #### [facility] [address] [place] [address] Dr. Lilly Cordova Nitrite Ql (U) Positive Abnormal NEGATIVE [facility] Comment on above: Performed By: #### H H #### [facility] [address] [place] [address] Dr. Lilly Cordova pH (U) 7.5 [pH] Normal 5-9 [facility] Comment on above: Performed By: #### H H #### [facility] [address] [place] [address] Dr. Lilly Cordova SPEC GRAVITY 1.010 Normal 1.005-<=1.025 [facility] Comment on above: Performed By: #### H H #### [facility] [address] [place] [address] Dr. Lilly Cordova UA PROTEIN 30 mg/dl Abnormal NEGATIVE/ TRACE [facility] Comment on above: Performed By: #### H H #### [facility] [address] [place] [address] Dr. Lilly Cordova UR MICRO IND INDICATED Normal [facility] Comment on above: Performed By: #### H H #### [facility] [address] [place] [address] Dr. Lilly Cordova Urobilinogen Qn (U) 0.2 {Raffi'U}/dL Normal 0.2 - 1. 0 [facility] Comment on above: Performed By: #### H H #### [facility] [address] [place] [address] Dr. Lilly Cordova URIC ACID SERUMon 11-04-2022 Urate [Mass/Vol] 5.2 mg/dL Normal 3.5-7.2 [facility] Comment on above: Performed By: #### B MP, PHOS, MG, ALB, URIC #### [facility] [address] [place] [address] Dr. Lilly Cordova URINE MICROSCOPIC ONLYon BACTERIA TRACE Abnormal NONE SEEN [facility] Comment on above: Performed By: #### H H #### [facility] [address] [place] [address] Dr. Lilly Cordova Bacteria identified Cx Nom (U) INDICATED Normal [facility] Comment on above: Performed By: #### H H #### [facility] [address] [place] [address] Dr. Lilly Cordova CAST NONE SEEN Normal NONE SEEN [facility] Comment on above: Performed By: #### H H #### [facility] [address] [place] [address] Dr. Lilly Cordova Crystals LM Nom (Urine sed) NONE SEEN Normal NONE SEEN [facility] Comment on above: Performed By: #### H H #### [facility] [address] [place] [address] Dr. Lilly Cordova Epithelial cells LM Ql (Urine sed) NONE SEEN Normal NONE SEEN /RARE [facility] Comment on above: Performed By: #### H H #### [facility] [address] [place] [address] Dr. Lilly Cordova MUCOUS NONE SEEN Normal NONE SEEN [facility] Comment on above: Performed By: #### H H #### [facility] [address] [place] [address] Dr. Lilly Cordova RBC 2-5 Abnormal 0-2 [facility] Comment on above: Performed By: #### H H #### [facility] [address] [place] [address] Dr. Lilly Cordova WBC 10-20 Abnormal NONE SEEN [facility] Comment on above: Performed By: #### H H #### [facility] [address] [place] [address] Dr. Lilly Cordova VITAMIN D 25 OHon 11-04-2022 VIT D 25-OH 58.3 ng/mL Normal [facility] Comment on above: Performed By: #### H H #### [facility] [address] [place] [address] Dr. Lilly Cordova VIT D RANGES SEE BELOW Normal [facility] Comment on above: Result Comment: <20 ng/mL Vit D deficient 20 - <30 ng/mL Vit D insufficient 30 - 100 ng/mL Vit D sufficient >100 ng/mL Potential Toxicity Performed By: #### H H #### [facility] [address] [place] [address] Dr. Lilly Cordova HEMOGLOBINon 07-10-2022 Hemoglobin (Bld) [Mass/Vol] 11.6 g/dL Critically low 14.0-18.0 [facility] Comment on above: Performed By: #### H GB #### [facility] [address] [address] [address] Lilly Cordova NM STRESS/REST MULTIon 06-03 NM STRESS/REST MULTI Patient: ARIAN OLIVERA Exam Date: 06/03/2022 : 1940 Gender:M Ordering : ZOILA ROQUE [facility] Admission #: [id number] Family : Order #: [id number] CLICK HERE TO VIEW EXAM RADIOLOGY REPORT [...] on 06/04/2022 at 07:50 Normal [facility] PROF CHEM 8 (BAS METB)on Anion gap [Moles/Vol] 11.2 mmol/L Normal [facility] Comment on above: Performed By: #### H H #### [facility] [address] [address] [address] Lilly Cordova Calcium [Mass/Vol] 8.8 mg/dL Normal 8.5-10.1 [facility] Comment on above: Performed By: #### H H #### [facility] [address] [address] [address] Lilly Cordova Chloride [Moles/Vol] 103 mmol/L Normal 98-107 [facility] Comment on above: Performed By: #### H H #### [facility] [address] [address] [address] Lilly Cordova CO2 [Moles/Vol] 25.2 mmol/L Normal 21.0-32.0 [facility] Comment on above: Performed By: #### H H #### [facility] [address] [address] [address] Lilly Cordova Creatinine [Mass/Vol] 1.87 mg/dL Critically high 0.70-1.30 [facility] Comment on above: Performed By: #### H H #### [facility] [address] [address] [address] Lilly Cordova EGFR-AF SAMOAN 42 mL/min/1.73m2 Critically low >=60 [facility] Comment on above: Performed By: #### H H #### [facility] [address] [address] [address] Lilly Cordova EGFR-NON AF SAMOAN 35 mL/min/1.73m2 Critically low >=60 [facility] Comment on above: Performed By: #### H H #### [facility] [address] [address] [address] Lilly Cordova Glucose [Mass/Vol] 126 mg/dL Critically high 74-106 [facility] Comment on above: Performed By: #### H H #### [facility] [address] [address] [address] Lilly Cordova Potassium [Moles/Vol] 4.4 mmol/L Normal 3.5-5.1 [facility] Comment on above: Performed By: #### H H #### [facility] [address] [place] [address] Dr. Lilly Cordova Sodium [Moles/Vol] 135 mmol/L Critically low 136-145 [facility] Comment on above: Performed By: #### H H #### [facility] [address] [place] [address] Dr. Lilly Cordova Urea nitrogen [Mass/Vol] 32.0 mg/dL Critically high 7.0-18.0 [facility] Comment on above: Performed By: #### H H #### [facility] [address] [place] [address] Dr. Lilly Cordova Urea nitrogen/Creatinine [Mass ratio] 17.1 mg/mg Normal [facility] Comment on above: Performed By: #### H H #### [facility] [address] [place] [address] Dr. Lilly Cordova PTH INTACTon 05-07-2022 PTH, Intact 28 pg/mL Normal 15-65 [facility] Comment on above: Performed By: #### P THINT #### [facility] [address] [place] [address] Dr. Lilly Cordova HEMOGRAM AND PLATELon 2021 Hematocrit (Bld) [Volume fraction] 34.2 % Critically low 42.0-54.0 [facility] Comment on above: Performed By: #### H H #### [facility] [address] [place] [address] Dr. Lilly Cordova Hemoglobin (Bld) [Mass/Vol] 11.5 g/dL Critically low 14.0-18.0 [facility] Comment on above: Performed By: #### H H #### [facility] [address] [place] [address] Dr. Lilly Cordova MCH (RBC) [Entitic mass] 31.3 pg Normal 25.9-34.0 [facility] Comment on above: Performed By: #### H H #### [facility] [address] [address] [address] Lilly Cordova MCHC (RBC) [Mass/Vol] 33.6 g/dL Normal 29.9-35.2 [facility] Comment on above: Performed By: #### H H #### [facility] [address] [place] [address] Dr. Lilly Cordova MCV (RBC) [Entitic vol] 93.2 fL Normal 80.0-94.0 [facility] Comment on above: Performed By: #### H H #### [facility] [address] [place] [address] Dr. Lilly Cordova PLT 130 103/ul Critically low 150-450 [facility] Comment on above: Performed By: #### H H #### [facility] [address] [place] [address] Dr. Lilly Cordova RBC 3.67 106/ul Critically low 4.70-6.10 [facility] Comment on above: Performed By: #### H H #### [facility] [address] [place] [address] Dr. Lilly Cordova WBC 6.5 103/ul Normal 4.0-11.0 [facility] Comment on above: Performed By: #### H H #### [facility] [address] [place] [address] Dr. Lilly Cordova MAGNESIUMon 05-06-2022 Magnesium [Mass/Vol] 1.4 mg/dL Critically low 1.8-2.4 [facility] Comment on above: Performed By: #### P THINT #### [facility] [address] [place] [address] Dr. Lilly Cordova PHOSPHORUSon 05-06-2022 Phosphate [Mass/Vol] 3.0 mg/dL Normal 2.6-4.7 [facility] Comment on above: Performed By: #### P THINT #### [facility] [address] [place] [address] Dr. Lilly Cordova PROF CHEM 8 (BAS METB)on Anion gap [Moles/Vol] 10.5 mmol/L Normal [facility] Comment on above: Performed By: #### P THINT #### [facility] [address] [address] [address] Lilly Cordova Calcium [Mass/Vol] 9.1 mg/dL Normal 8.5-10.1 [facility] Comment on above: Performed By: #### P THINT #### [facility] [address] [address] [address] Lilly Cordova Chloride [Moles/Vol] 103 mmol/L Normal 98-107 [facility] Comment on above: Performed By: #### P THINT #### [facility] [address] [address] [address] Lilly Cordova CO2 [Moles/Vol] 27.9 mmol/L Normal 21.0-32.0 [facility] Comment on above: Performed By: #### P THINT #### [facility] [address] [address] [address] Lilly Cordova Creatinine [Mass/Vol] 1.77 mg/dL Critically high 0.70-1.30 [facility] Comment on above: Performed By: #### P THINT #### [facility] [address] [address] [address] Lilly Cordova EGFR-AF SAMOAN 45 mL/min/1.73m2 Critically low >=60 [facility] Comment on above: Performed By: #### P THINT #### [facility] [address] [address] [address] Lilly Cordova EGFR-NON AF SAMOAN 37 mL/min/1.73m2 Critically low >=60 [facility] Comment on above: Performed By: #### P THINT #### [facility] [address] [address] [address] Lilly Cordova Glucose [Mass/Vol] 98 mg/dL Normal 74-106 [facility] Comment on above: Performed By: #### P THINT #### [facility] [address] [address] [address] Lilly Cordova Potassium [Moles/Vol] 5.4 mmol/L Critically high 3.5-5.1 [facility] Comment on above: Performed By: #### P THINT #### [facility] [address] [address] [address] Lilly Cordova Sodium [Moles/Vol] 136 mmol/L Normal 136-145 [facility] Comment on above: Performed By: #### P THINT #### [facility] [address] [place] [address] Dr. Lilly Cordova Urea nitrogen [Mass/Vol] 30.0 mg/dL Critically high 7.0-18.0 [facility] Comment on above: Performed By: #### P THINT #### [facility] [address] [place] [address] Dr. Lilly Cordova Urea nitrogen/Creatinine [Mass ratio] 16.9 mg/mg Normal [facility] Comment on above: Performed By: #### P THINT #### [facility] [address] [place] [address] Dr. Lilly Cordova URIC ACID SERUMon 05-06-2022 Urate [Mass/Vol] 5.2 mg/dL Normal 3.5-7.2 [facility] Comment on above: Performed By: #### P THINT #### [facility] [address] [place] [address] Dr. Lilly Cordova VITAMIN D 25 OHon 05-06-2022 VIT D 25-OH 56.4 ng/mL Normal [facility] Comment on above: Performed By: #### V ITAD #### [facility] [address] [place] [address] Dr. Lilly Cordova VIT D RANGES SEE BELOW Normal [facility] Comment on above: Result Comment: <20 ng/mL Vit D deficient 20 - <30 ng/mL Vit D insufficient 30 - 100 ng/mL Vit D sufficient >100 ng/mL Potential Toxicity Performed By: #### V ITAD #### [facility] [address] [place] [address] Dr. Lilly Cordova ECHOCARDIO M/2D COMPLETEon 0 04-16-2022 ECHOCARDIO M/2D COMPLETE Patient: ARIAN OLIVERA Exam Date: 04/16/2022 : 1940 Gender:M Ordering : OLEKSANDR CROSS Admission #: [id number] Family : DR BENSON MANCINI D.O. Order #: [id number] CLICK HERE TO VIEW EXAM ECHOCARDIOGRAM REPORT [...] Gregg M.D. on 04/18/2022 at 16:09 Normal [facility] Vital Signs Date Time Vital Sign Value Performing Clinician Facility 04-02-2024 09:59-0400 Body height 182.88 cm DO Benson [employer] Work Phone: [facility] 04-02-2024 09:59-0400 Body mass index (BMI) [Ratio] 22.2 kg/m2 DO Benson Ball Work Phone: [facility] 04-02-2024 09:59-0400 Body weight 74.44 kg DO Benson Ball Work Phone: [facility] 04-02-2024 09:59-0400 Diastolic blood pressure 76 mm[Hg] DO Benson Ball Work Phone: [facility] 04-02-2024 09:59-0400 Heart rate 85 /min DO Benson Ball Work Phone: [facility] 04-02-2024 09:59-0400 Respiratory rate 12 /min DO Benson Ball Work Phone: [facility] 04-02-2024 09:59-0400 Systolic blood pressure 176 mm[Hg] DO Benson Ball Work Phone: [facility] 12-31-2023 10:49-0400 Body height 182.88 cm DO Benson Ball Work Phone: [facility] 12-31-2023 10:49-0400 Body mass index (BMI) [Ratio] 23.3 kg/m2 DO Benson Ball Work Phone: [facility] 12-31-2023 10:49-0400 Body weight 78.24 kg DO Benson Ball Work Phone: [facility] 12-31-2023 10:49-0400 Diastolic blood pressure 80 mm[Hg] DO Benson Ball Work Phone: [facility] 12-31-2023 10:49-0400 Heart rate 86 /min DO Benson Ball Work Phone: [facility] 12-31-2023 10:49-0400 Respiratory rate 12 /min DO Benson Ball Work Phone: [facility] 12-31-2023 10:49-0400 Systolic blood pressure 193 mm[Hg] DO Benson Ball Work Phone: [facility] 09-30-2023 10:26-0500 Body height 182.88 cm DO Benson Ball Work Phone: [facility] 09-30-2023 10:26-0500 Body mass index (BMI) [Ratio] 23.6 kg/m2 DO Benson Ball Work Phone: [facility] 09-30-2023 10:26-0500 Body weight 79.09 kg DO Benson Ball Work Phone: [facility] 09-30-2023 10:26-0500 Diastolic blood pressure 65 mm[Hg] DO Benson Ball Work Phone: [facility] 09-30-2023 10:26-0500 Heart rate 93 /min DO Benson Ball Work Phone: [facility] 09-30-2023 10:26-0500 Respiratory rate 12 /min DO Benson Ball Work Phone: [facility] 09-30-2023 10:26-0500 Systolic blood pressure 167 mm[Hg] DO Benson Ball Work Phone: [facility] 08-05-2023 05:03-0500 Diastolic blood pressure 77 mm[Hg] DO Benson Ball Work Phone: [facility] 08-05-2023 05:03-0500 Heart rate 97 /min DO Benson Ball Work Phone: [facility] 08-05-2023 05:03-0500 Respiratory rate 18 /min DO Benson Ball Work Phone: [facility] 08-05-2023 05:03-0500 SaO2% (BldA) [Mass fraction] 99 % DO Benson Ball Work Phone: [facility] 08-05-2023 05:03-0500 Systolic blood pressure 173 mm[Hg] DO Benson Ball Work Phone: [facility] 08-05-2023 00:36-0500 Body height 182.88 cm DO Benson Ball Work Phone: [facility] 08-05-2023 00:36-0500 Body temperature 97.5 [degF] DO Benson Ball Work Phone: [facility] 08-05-2023 00:36-0500 Body weight 80.9 kg DO Benson Ball Work Phone: [facility] 07-29-2023 10:30-0500 Body height 177.8 cm Benson Ball Other [employer] [facility] [employer] Other 07-29-2023 10:30-0500 Body mass index (BMI) [Ratio] 25.57 kg/m2 Benson Ball Other [employer] Other 07-29-2023 10:30-0500 Body weight 80.83 kg Benson Ball Other [employer] Other 07-29-2023 10:30-0500 Diastolic blood pressure 73 mm[Hg] Benson Ball Other [employer] Other 07-29-2023 10:30-0500 Respiratory rate 12 /min Benson Ball Other [employer] Other 07-29-2023 10:30-0500 Systolic blood pressure 191 mm[Hg] Benson Ball Other [employer] Other 04-25-2023 11:30-0400 Body height 177.8 cm Benson Ball Other [employer] Other 04-25-2023 11:30-0400 Body mass index (BMI) [Ratio] 25.42 kg/m2 Benson Ball Other [employer] Other 04-25-2023 11:30-0400 Body weight 80.38 kg Benson Ball Other [employer] Other 04-25-2023 11:30-0400 Diastolic blood pressure 80 mm[Hg] Benson Ball Other [employer] Other 04-25-2023 11:30-0400 Respiratory rate 12 /min Benson Ball Other [employer] Other 04-25-2023 11:30-0400 Systolic blood pressure 150 mm[Hg] Benson Ball Other [employer] Other 01-23-2023 11:00-0400 Body height 177.8 cm Benson Ball Other [employer] Other 01-23-2023 11:00-0400 Body mass index (BMI) [Ratio] 25.57 kg/m2 Benson Ball Other [employer] Other 01-23-2023 11:00-0400 Body weight 80.83 kg Benson Ball Other [employer] Other 01-23-2023 11:00-0400 Diastolic blood pressure 57 mm[Hg] Benson Ball Other [employer] Other 01-23-2023 11:00-0400 Respiratory rate 12 /min Benson Ball Other [employer] Other 01-23-2023 11:00-0400 Systolic blood pressure 146 mm[Hg] Benson Ball Other [employer] Other 10-23-2022 12:00-0400 Body height 177.8 cm Benson Ball Other [employer] Other 10-23-2022 12:00-0400 Body mass index (BMI) [Ratio] 25.82 kg/m2 Benson Ball Other [employer] Other 10-23-2022 12:00-0400 Body weight 81.65 kg Benson Ball Other [employer] Other 10-23-2022 12:00-0400 Diastolic blood pressure 72 mm[Hg] Benson Ball Other [employer] Other 10-23-2022 12:00-0400 Respiratory rate 12 /min Benson Ball Other [employer] Other 03-29-2023 12:00-0400 Systolic blood pressure 158 mm[Hg] Benson Ball Other [facility] [employer] Other 07-03-2022 11:14-0500 Body weight 0 kg DO Benson Ball Work Phone: [facility] 03-26-2022 15:15-0400 Body weight 0 kg DO Benson Ball Work Phone: [facility] 12-19-2021 10:04-0400 Body weight 0 kg DO Benson Ball Work Phone: [facility] Encounters Encounter Date Encounter Type Care Provider Facility Start: 04-19-2024 End: 04-19-2024 ambulatory AB [facility] Start: 04-02-2024 End: 04-02-2024 ambulatory DO Benson Ball Work Phone: [facility] Work Phone: Start: 04-02-2024 End: 04-02-2024 Patient encounter procedure DO Benson Ball Work Phone: [facility] Work Phone: Start: 04-01-2024 End: 04-01-2024 ambulatory Hudson BLANCA [place] [place]: 04-01-2024 End: 04-01-2024 Lab Drop off Hudson BLANCA [facility] Start: 04-01-2024 End: 04-01-2024 ambulatory Hudson BLANCA Facility:[facility] Start: 04-01-2024 End: 04-01-2024 Patient encounter procedure Hudson BLANCA [facility] Start: 02-13-2024 End: 02-13-2024 Admission to same day surgery center DO Benson Ball Work Phone: [facility] Work Phone: Start: 02-13-2024 End: 02-13-2024 ambulatory DO Benson Ball Work Phone: [facility] Work Phone: Start: 02-09-2024 End: 02-09-2024 ambulatory Hudson BLANCA Facility:[id number] Start: 02-02-2024 End: 02-02-2024 ambulatory Hudson BLANCA [place] [place] Start: 02-02-2024 End: 02-02-2024 Lab Drop off Hudson BLACNA [facility] Start: 02-02-2024 End: 02-02-2024 ambulatory Hudson BLANCA Facility:[facility] Start: 02-02-2024 End: 02-02-2024 Patient encounter procedure Hudson BLANCA [facility] Start: 12-31-2023 End: 12-31-2023 ambulatory DO Benson Ball Work Phone: [facility] Work Phone: Start: 12-31-2023 End: 12-31-2023 Patient encounter procedure DO Benson Ball Work Phone: [facility] Work Phone: Start: 11-21-2023 End: 11-21-2023 Admission to same day surgery center DO Benson Ball Work Phone: [facility] Work Phone: Start: 11-21-2023 End: 11-21-2023 ambulatory DO Benson Ball Work Phone: [facility] Work Phone: Start: 11-03-2023 Non-patient / Non-visit DO Boone mora Ball [facility] Phone[facility] Work Phone: Start: 10-08-2023 Non-patient / Non-visit DO Boone Mancini Work Phone: [facility] Work Phone: Start: 10-07-2023 End: 10-07-2023 ambulatory RAJENDRA NUÑEZ [facility] Start: 09-30-2023 End: 09-30-2023 Patient encounter procedure DO Benson Mancini Work Phone: [facility] Work Phone: Start: 08-14-2023 End: 08-14-2023 Emergency department patient visit LANEY DOWLING [facility] Start: 08-05-2023 End: 08-05-2023 ambulatory Benson Mancini Other [employer] Other Start: 08-05-2023 Telephone encounter Benson FRAZIER [facility] Start: 08-05-2023 End: 08-05-2023 Emergency department patient visit DO Benson Mancini Work Phone: [facility] Work Phone: Start: 08-01-2023 End: 08-01-2023 ambulatory Benson Mancini Other [employer] Other Start: 08-01-2023 Telephone encounter Benson FRAZIER [facility] Start: 07-29-2023 End: 07-29-2023 ambulatory Benson Mancini Other [employer] Other Start: 07-29-2023 Patient encounter procedure Benson Mancini [facility] Start: 07-29-2023 Telephone encounter Benson FRAZIER [facility] Start: 07-25-2023 End: 07-25-2023 Admission to same day surgery center DO Benson Mancini Work Phone: [facility] Work Phone: Start: 07-25-2023 End: 07-25-2023 ambulatory DO Benson Mancini Work Phone: [facility] Work Phone: Start: 05-28-2023 End: 05-28-2023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
[2024-05-13 11:53] LABS: Basophils Percent Auto 0.3 % (0.2-2.0); Eosinophils Absolute Auto 0.1 10^3/uL (0.0-0.7); Eosinophils Percent Auto 1.2 % (0.9-7.0); Hematocrit 30.6 % (42.0-54.0); Hemoglobin 9.7 g/dL (14.0-18.0); Immature Granulocytes Abs Auto 0.03 10^3/uL (0.00-0.03); Immature Granulocytes Pct Auto 0.5 % (0.0-0.5); Lymphocytes Absolute Auto 0.6 10^3/uL (1.2-3.8); Lymphocytes Percent Auto 9.5 % (20.5-60.0); Mean Corpuscular HGB Conc 31.7 g/dL (29.9-35.2); Mean Corpuscular Hemoglobin 30.1 pg (25.9-34.0); Monocytes Absolute Auto 0.7 10^3/uL (0.3-0.8); Monocytes Percent Auto 12.4 % (1.7-12.0); Neutrophils Absolute Auto 4.4 10^3/uL (1.4-6.5); Neutrophils Percent Auto 76.1 % (43.0-75.0); Platelet Count 161 10^3/uL (150-450); Red Blood Count 3.22 10^6/uL (4.70-6.10); Red Cell Distribution Width 14.9 % (11.0-15.0); White Blood Count 5.8 10^3/uL (4.0-11.0)
[2024-05-13 13:55] LABS: Anion Gap 17.2; BUN Creatinine Ratio 17.6; Carbon Dioxide 20.9 mmol/L (21.0-32.0); Chloride 103 mmol/L (98-107); Estimated GFR (African America 37 (>=60 mL/min/1.73m^2); Estimated GFR (Non-African Ame 30 (>=60 mL/min/1.73m^2); Glucose 150 mg/dL (74-106); Potassium 4.1 mmol/L (3.5-5.1); Sodium 137 mmol/L (136-145)
== END 2024-05-13 11:34 | disposition home or self-care (01) ==
LOC: LAB 11:36
PROVIDERS: PCP Internal Medicine; Visit Provider Internal Medicine Interventional Cardiology
DX: Z01.812 Encounter for preprocedural laboratory examination (principal); I51.9 Heart disease, unspecified
CPT/HCPCS: 36415; 80048; 85025

== ENCOUNTER 2024-05-24 02:04 | Emergency (ER) | payer MEDICARE, SELFPAY ==
[2024-05-24] VITALS (28 sets, daily range): BP systolic 139–151; BP diastolic 69–72; PULSE 66–101; TEMP 36.4; O2SAT 97–99; BMI 19.7
--- NOTE | 2024-05-24 02:32 | XR_ITS ---
The [address] [address] Patient Name: MYKEL IRIZARRY MRN: [id number] date: 1940 Sex: M Assigned Patient Location: ER Current Patient Location: Accession/Order Number: [id number] Exam Date: 05/24/2024 02:45 Report Date: 05/24/2024 05:24 At the request of: OLEKSANDR MARKER Procedure: XR chest 1V EXAM: XR chest 1V HISTORY: Chest pain. COMPARISON: Portable chest radiograph dated 12/15/2020. TECHNIQUE: AP semierect portable chest radiograph performed. FINDINGS: Stable median sternotomy wires. There is a small electronic device overlying the left chest. The trachea is midline. Stable mild enlargement of the cardiac silhouette. Stable mild atheromatous calcification at the aortic arch. Mild to moderate elevation of the right hemidiaphragm. There is no consolidation, pleural effusion or pulmonary vascular congestion. There is no pneumothorax. The bony structures are osteopenic. There is no acute osseous abnormality. There are mild degenerative changes at both acromioclavicular articulations. XR/XR chest 1V IMPRESSION: There is no acute cardiopulmonary process. Previous median sternotomy. There is a small electronic device overlying the left chest. There is mild to moderate elevation of the right hemidiaphragm. Electronically authenticated by: STACY CARVER Date: 05/24/2024 05:24
[2024-05-24 02:38] LABS: Hematocrit 24.1 % (42.0-54.0); Hemoglobin 7.8 g/dL (14.0-18.0); Mean Corpuscular HGB Conc 32.4 g/dL (29.9-35.2); Mean Corpuscular Volume 92.7 fL (80.0-94.0); Mean Platelet Volume 10.1 fL (9.5-13.5); Platelet Count 235 10^3/uL (150-450); Red Cell Distribution Width 14.2 % (11.0-15.0); White Blood Count 10.7 10^3/uL (4.0-11.0)
--- NOTE | 2024-05-24 02:40 | ED.CHESTPAI1 ---
HPI - Chest Pain General Chief Complaint: Chest Pain Stated Complaint: OTHER Time Seen by Provider: 05/24/24 02:39 Source: patient and family Mode of arrival: ambulance Limitations: no limitations History of Present Illness HPI narrative: This 84-year-old male is brought to the emergency department by EMS for evaluation of chest pain that radiated into his shoulder blade area associated with mild shortness of breath. The patient has had a quadruple bypass in the past. He recently had a stress test and underwent coronary catheterization at [facility]. The cath was normal according to the patient and his . 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 The patient has not been eating or drinking well. His states that he did recently have a kidney infection and she is concerned that the kidney infection is coming back. He did complete his course of antibiotics but the patient's states she feels that his symptoms may be related to that. He has not had any fever. He does have a nephrostomy tube on the right. He has had that for approximately 5 years. He was supposed to have the nephrostomy tube changed last week but the catheterization at [facility] took precedence and the nephrostomy tube change was deferred to a later date. He states he is having pain at the nephrostomy tube site as well as between his shoulder blades. He denies any dizziness or syncope. He does not smoke. He gets monthly prescriptions for the pain related to the nephrostomy tube. His is also concerned that it is leaking. Related Data Home Medications ?Medication ?Instructions ?Recorded ?Confirmed apixaban 2.5 mg tablet (Eliquis) 2.5 mg PO Q12H 08/14/23 05/24/24 atorvastatin 40 mg tablet 40 mg PO BEDTIME 08/14/23 05/24/24 ferrous sulfate 325 mg (65 mg 325 mg PO DAILY 08/14/23 05/24/24 iron) tablet (FeroSul) hydralazine 25 mg tablet 25 mg PO Q12H 08/14/23 05/24/24 hydrocodone 5 mg-acetaminophen 325 1 tab PO BID PRN pain 08/14/23 05/24/24 mg tablet isosorbide mononitrate 30 mg 30 mg PO DAILY 08/14/23 05/24/24 tablet,extended release 24 hr magnesium oxide 400 mg (241.3 mg 400 mg PO DAILY 08/14/23 05/24/24 magnesium) tablet multivit with min-folic 1 tab PO DAILY 08/14/23 05/24/24 acid-lutein 400 mcg-250 mcg chewable tablet (Centrum Silver) Allergies Allergy/AdvReac Type Severity Reaction Status Date / Time povidone-iodine (From Allergy Rash Verified 05/24/24 02:09 Betadine) Review of Systems ROS Status of ROS 10 or more systems reviewed and unremarkable except as noted in history and below [facility] Medical History (Updated 05/24/24 @ 06:22 by Leanna Olivares MD) Abnormal cystoscopy ?R39.9 - Unspecified symptoms and signs involving the genitourinary system (ICD-10) Bladder cancer ?C67.9 - Malignant neoplasm of bladder, unspecified (ICD-10) Malfunction of nephrostomy tube ?T83.098A - Other mechanical complication of other urinary catheter, initial encounter (ICD-10) Surgical History (Updated 02/04/24 @ 13:08 by Lorena Polo) H/O transurethral resection of bladder tumor (TURBT) ?Z98.890 - Other specified postprocedural states (ICD-10) ?Z86.03 - Personal history of neoplasm of uncertain behavior (ICD-10) H/O transurethral resection of prostate ?Z98.890 - Other specified postprocedural states (ICD-10) ?Z90.79 - Acquired absence of other genital organ(s) (ICD-10) 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 Do you use any of these nicotine containing products: smokeless tobacco Smokeless tobacco user: snuff Non-prescribed substance use: denies use Previous occupational history: [employer] Highest level of school completed/degree received: some college, no degree Little interest or pleasure in doing things: not at all Feeling down, depressed, or hopeless: not at all Exam Narrative Exam Narrative: Vital signs and Nursing Notes reviewed: Patient is afebrile with a normal pulse, normal blood pressure, he is not hypoxic with pulse ox of 97% on room air General: Awake, alert, oriented, pale elderly male, no respiratory distress HEENT: Normocephalic atraumatic, mucous membranes are moist and pink, eyes are clear, normal conjunctiva, vision is grossly intact, posterior pharynx is normal in appearance. Neck: Supple, no meningeal signs, no anterior or posterior cervical lymphadenopathy Chest: Lungs are clear to auscultation with good air entry, there is no wheezing rhonchi or rales appreciated no accessory muscle use, patient is speaking in complete sentences-no chest wall tenderness to palpation CVS: Regular rate and rhythm S1-S2, no murmurs rubs or gallops, pulses are brisk and equal bilaterally ABD: Soft, nondistended, nontender, no rebound guarding or rigidity, bowel sounds are normal, no pulsatile masses appreciated MUSC: nephrostomy tube taped down in right lumbar region, no appreciable local redness, swelling or leakage Extremities: Moving all extremities, no lower extremity tenderness or swelling noted, negative Homans' sign, pulses are brisk and equal bilaterally Skin: Normal in appearance without rash,pallor, petechiae or purpura Neuro: No focal deficits Constitutional Vital Signs, click to edit/add: Last Vital Signs Temp 97.5 F L 05/24/24 02:10 Pulse 92 H 05/24/24 02:10 Resp 13 05/24/24 02:10 BP 139/69 05/24/24 02:10 Pulse Ox 97 05/24/24 02:10 O2 Del Method Room Air 05/24/24 02:10 Course Vital Signs Vital signs: Vital Signs Temperature 97.5 F L 05/24/24 02:10 Pulse Rate 92 H 05/24/24 02:10 Respiratory Rate 13 05/24/24 02:10 Blood Pressure 139/69 05/24/24 02:10 Pulse Oximetry 97 05/24/24 02:10 Oxygen Delivery Method Room Air 05/24/24 02:10 Temperature 97.5 F L 05/24/24 02:10 Pulse Rate 92 H 05/24/24 02:10 Respiratory Rate 13 05/24/24 02:10 Blood Pressure 139/69 05/24/24 02:10 Pulse Oximetry 97 05/24/24 02:10 Oxygen Delivery Method Room Air 05/24/24 02:10 MDM - Chest Pain MDM Narrative Medical decision making narrative: This 84-year-old male with a history of coronary artery disease status post quadruple bypass in the past who recently had a cardiac catheterization at [facility] that was clean and also recently had a stress test that was normal presents for evaluation of left-sided chest pain that radiates into his left shoulder area. Is associated with mild shortness of breath. Most of the patient is concerned about pain in his right flank where he has a nephrostomy tube that he has had for the past 5 years. His is concerned because she states that is leaking. They had an appointment to have the nephrostomy tube changed before the patient had the cardiac cath last week but the appointment to have the nephrostomy tube changed was deferred due to the cardiac cath. The patient does admit that during the cardiac catheterization he had to lie flat for approximately 10 hours which aggravated his back especially the nephrostomy tube site. He also had a large amount of bleeding and states that he felt bad for a nurse that had to hold pressure over his groin area for 3 hours due to bleeding. An EKG done upon arrival was a rapid atrial rhythm with a first-degree AV block, right bundle branch block, chronic changes. This was compared to an old EKG and is essentially unchanged. An IV was placed and routine labs are ordered. He has a normal white count. His hemoglobin is low at 7.8. This is likely related to the bleeding that occurred during his cardiac cath. He is not having any black tarry stool or hematemesis. Electrolytes are reviewed. His sodium is mildly low at 128. He has chronic renal insufficiency and his BUN is 43 and creatinine 2.36. This is mildly increased compared to his baseline but also likely related to his recent bleeding. He has a normal troponin and delta troponin. Chest x-ray is normal. He was initially medicated with a dose of [place] which is what he typically takes for pain but denied that this was helping his pain and was given 4 mg of IV morphine and 4 mg of Zofran. This controlled his pain and he remained comfortable throughout his ER stay. I discussed the results of his labs with the patient and his . He wishes to be discharged home at this time. We discussed his medications and he states that he is running out of his [place] because his doctor will only allow him to take 2 a day. He requests additional pain medication. I explained that in light of him getting monthly prescriptions for a scheduled drug I cannot give him any additional prescriptions but was able to give him two [place] from the ED. I offered to speak to our radiology department about his leaking nephrostomy tube but they are not readily available till after 7 AM. He declines this offer and will reschedule with the radiologist in [place] where he was originally scheduled to have his tube changed. Medical Records Data Attestation: I reviewed the patient's medical records. Medical records narrative: [place] [address] XRay Report Signed Patient: MYKEL IRIZARRY MR#: [id number] : 1940 Acct:[id number] Age/Sex: 84 / M ADM Date: 05/24/24 Loc: ER Attending Dr: Ordering Physician: Leanna Olivares Date of Service: 05/24/24 Procedure(s): XR chest 1V Accession Number(s): [id number] cc: Benson Mancini D.O.; Leanna Olivares~ The [place] [id number] Patient Name: MYKEL IRIZARRY MRN: [id number] date: 1940 Sex: M Assigned Patient Location: ER Current Patient Location: ER Accession/Order Number: [id number] Exam Date: 05/24/2024 02:45 Report Date: 05/24/2024 05:24 At the request of: LEANNA OLIVARES Procedure: XR chest 1V EXAM: XR chest 1V HISTORY: Chest pain. COMPARISON: Portable chest radiograph dated 12/15/2020. TECHNIQUE: AP semierect portable chest radiograph performed. FINDINGS: Stable median sternotomy wires. There is a small electronic device overlying the left chest. The trachea is midline. Stable mild enlargement of the cardiac silhouette. Stable mild atheromatous calcification at the aortic arch. Mild to moderate elevation of the right hemidiaphragm. There is no consolidation, pleural effusion or pulmonary vascular congestion. There is no pneumothorax. The bony structures are osteopenic. There is no acute osseous abnormality. There are mild degenerative changes at both acromioclavicular articulations. XR/XR chest 1V IMPRESSION: There is no acute cardiopulmonary process. Previous median sternotomy. There is a small electronic device overlying the left chest. There is mild to moderate elevation of the right hemidiaphragm. Lab Data Attestation: I reviewed the patient's lab results. Labs: Lab Results 05/24/24 05/24/24 Range/Units 02:20 05:00 WBC 10.7 (4.0-11.0) 10^3/uL RBC 2.60 L (4.70-6.10) 10^6/uL Hgb 7.8 L (14.0-18.0) g/dL Hct 24.1 L (42.0-54.0) % MCV 92.7 (80.0-94.0) fL MCH 30.0 (25.9-34.0) pg MCHC 32.4 (29.9-35.2) g/dL RDW 14.2 (11.0-15.0) % Plt Count 235 (150-450) 10^3/uL MPV 10.1 (9.5-13.5) fL Seg Neuts % (Manual) 85.0 H (43.0-75.0) Lymphocytes % (Manual) 8.0 L (20.5-60.0) % Monocytes % (Manual) 7.0 (1.7-12.0) % Eosinophils % (Manual) 0.0 L (0.9-7.0) % Basophils % (Manual) 0.0 L (0.2-2.0) % Neutrophils # (Manual) 9.09 H (1.4-6.5) 10^3/uL Lymphocytes # (Manual) 0.85 L (1.20-3.80) 10^3/uL Monocytes # (Manual) 0.74 (0.30-0.80) 10^3/uL Eosinophils # (Manual) 0.00 (0.00-0.70) 10^3/uL Basophils # (Manual) 0.00 (0.00-0.10) 10^3/uL Sodium 128 L (136-145) mmol/L Potassium 4.9 (3.5-5.1) mmol/L Chloride 98 (98-107) mmol/L Carbon Dioxide 18.1 L (21.0-32.0) mmol/L Anion Gap 16.8 BUN 43.0 H (7.0-18.0) mg/dL Creatinine 2.36 H (0.70-1.30) mg/dL Est GFR ( Amer) 32 L (>=60 mL/min/1.73m^2) Est GFR (Non-Af Amer) 27 L (>=60 mL/min/1.73m^2) BUN/Creatinine Ratio 18.2 Glucose 137 H (74-106) mg/dL Lactate 1.5 (0.4-2.0) mmol/L Calcium 8.9 (8.5-10.1) mg/dL Total Bilirubin 1.0 (0.2-1.0) mg/dL AST 205 H (15-37) U/L ALT 76 H (16-63) U/L Alkaline Phosphatase 228 H (46-116) U/L Troponin I High Sens 34.5 30.5 (4.0-76.1) pg/mL Total Protein 6.3 L (6.4-8.2) g/dL Albumin 2.5 L (3.4-5.0) g/dL Globulin 3.8 g/dL Albumin/Globulin Ratio 0.7 ECG Data Attestation: I personally reviewed and interpreted this ECG as follows: (Rapid atrial rhythm 83 bpm, first-degree AV block, right bundle branch block, nonspecific ST changes, no acute ST segment elevation or T wave inversion) Prior ECG tracings: available for review (Prior EKGs were reviewed and are essentially unchanged) Heart Score History: Slightly/Non-Suspicious ECG: Normal Age: >65 years Risk Factors: >3 Risk Factors/ HX of CAD:2 Troponin: <Normal Limit Total Heart Score Recommendations & Risks:: 4 Discharge Plan Discharge Chief Complaint: Chest Pain Clinical Impression: Atypical chest pain, Malfunction of nephrostomy tube, Anemia, Hyponatremia, Chronic renal insufficiency Patient Disposition: Home, Self-Care Time of Disposition Decision: 06:10 Condition: Good Prescriptions / Home Meds: No Action Eliquis 2.5 mg tablet 2.5 mg PO Q12H atorvastatin 40 mg tablet 40 mg PO BEDTIME Centrum Silver 400-250 mcg tablet,chewable 1 tab PO DAILY hydralazine 25 mg tablet 25 mg PO Q12H isosorbide mononitrate 30 mg tablet extended release 24 hr 30 mg PO DAILY magnesium oxide 400 mg (241.3 mg magnesium) tablet 400 mg PO DAILY ferrous sulfate [FeroSul] 325 mg (65 mg iron) tablet 325 mg PO DAILY hydrocodone-acetaminophen 5-325 mg tablet 1 tab PO BID PRN (Reason: pain) Print Language: Mexican Instructions: Chest Pain (ED), Anemia (ED), Noncardiac Chest Pain (ED) Referrals: Benson Mancini DO [Primary Care Provider] - 1 week
--- OUTSIDE RECORDS SUMMARY | 2024-05-24 02:44 | XMS_ITS | CCD ---
Author Organization [facility] Care Team Providers Care Car Deliverer Name Role Phone RICHIE WALTON Attending Unavailable RICHIE WALTON Admitting Unavailable DIOMEDES, BENSON Referring Unavailable DIOMEDES, BENSON Primary Care Unavailable TERESITA BLACKWELL Primary Care Physician DO Benson Mancini Primary Care Provider [phone] MD Steven Coronado Attending Provider [phone] DO Benson Mancini Primary Care Provider [phone] DO Declan Moreira Attending Provider Unavailable Diomedes, DO Knowles Primary Care Provider [phone] MD Kami Blanca Attending Provider [phone] DO Declan Moreira Attending Provider Unavailable Benson [...] Unavailable BALL, DR KNOWLES Primary Care Unavailable AEMRICA, OLEKSANDR Admitting Unavailable AMERICA, OLEKSANDR Attending Unavailable [...] Unavailable REQUEST, NONE LISTED Attending Unavaila ble Diomedes, DO Knowles Primary Care Provider [phone] MD Kami Blanca Attending Provider DO Benson Mancini Primary Care Provider MD Kami Blanca Attending Provider MD Jose D Hercules Jr Emergency Provider DO Benson Mancini Primary Care Provider Harish, DO Manriquez Attending Provider Unavailable MD Kami Blanca Attending Provider [phone] Kami Blanca Attending Unavailable Benson Mancini Primary Care Unavailable Theo, Kami Admitting Unavailable Diomedes, Benson Primary Care Unavailable Moreira, Declan Admitting Unavailable Moreira, Declan Attending Unavailable Blanca, Kami Admitting Unavailable Blanca, Kami Attending Unavailable Ball, Benson Primary Care Unavailable Ball, Benson Primary Care Unavailable Moreira, Declan Admitting Unavailable Moreira, Declan Attending Unavailable Diomedes, Benson Primary Care Unavailable Jose D Hercules Jr Admitting Unavailable Jose D Hercules Jr Attending Unavailable DO Benson Mancini Primary Care Provider BENSON MANCINI Primary Care Physician Kami BLANCA Attending Unavailable BLANCA, Kami R Admitting Unavailable BLANCA, Kami R Attending Unavailable BLANCA, Kami R Attending Unavailable BLANCA, Kami R Attending Unavailable BLANCA, Kami R Admitting Unavailable BLANCA, Kami R Attending Unavailable LANEY DOWLING Referring Unavailable JOAQUIN, RAJENDRA Attending Unavailable EMANUEL GREGG Attending Unavailable Allergies Allergy Classification Reported Allergen(s) Allergy Type Date of Onset Reaction(s) Facility (20 sources) traMADol; Translations: [tramadol] Drug Allergy 8 Nausea, Unknown [facility] (1 source) patient allergy list reviewed by nurse or physicia Propensity to adverse reactions Comment:Done Qomuty Other (2 sources) No Known Medication Allergies; Translations: [No Known Medication Allergies] Propensity to adverse reactions (disorder) [facility] Repository (1 source) rOPINIRole; Translations: [ROPINIROLE] Drug Allergy 2 [facility] Repository Medications Current Medications Medication Drug [...] kristina th every eight hours for pain Ponsford 325 mg-5 mg oral tablet 1 tab(s), Oral, q8hr for pain, 15 tab(s), Refill(s) 0, [facility] Start Date: 03/03/20 Status: Ordered Start: 02-25-2020 take 1 tablet by kristina th once Ponsford 325 mg-5 mg oral tablet 1 tab(s), [...] day(s), # 14 tab(s), Refills(s) 0, Pharmacy: [id number] Start Date: 04/01/24 Stop Date: [...] 20 cap(s), Refills(s) 0, Pharmacy: [facility] #[id number] Start Date: 10/21/22 Status: Ordered Start: 06-19-2022 End: 06-26-2022 take 1 capsule by mouth every twelve hours Keflex 500 mg Cap 500 mg = 1 cap(s), Oral, q12hr, X 7 day(s), # 14 cap(s), Refills(s) 0, Pharmacy: [facility] #[id number] Start Date: 06/19/22 Stop Date: 06/26/22 Status: Ordered Start: 04-14-2020 take 1 capsule by mo [facility] twice daily Keflex 500 mg Cap 500 mg = 1 cap(s), Oral, BID, # 14 cap(s), Refills(s) 0, Pharmacy: [facility] [address] Start Date: 04/14/20 Status: Ordered clopidogrel [...] 05, 2023 12:00am take 1 tablet by [facility] every twenty-four hours Ferrous Sulfate 325 [...] MG PO Daily August 05, 2023 1:00am Hwmwspegghpv-Gvcqhjxy-D utein (Centrum Silver) Tablet (5 sources) Start: 08-05-2023 take 1 tablet by mouth once daily Multivitamin-Minerals- Lutein (Centrum Silver) Tablet Active 1 TAB PO Daily August 05, 2023 1:00am Start: 08-05-2023 take 1 tablet by kristina th once daily Fckljlnwdrxf-Dwgmnqiv-Thohwo (Centrum Silver) Tablet Active 1 TAB PO [...] BID, # 180 tab(s), Refills(s) 3, Pharmacy: [facility] Start Date: 07/10/20 Status: Ordered [...] day(s), 20 tab(s), Refill(s) 0, [id number] Start Date: 11/04/22 Stop Date: 11/14/22 Status: Ordered Start: 06-11-2021 Bactrim DS 800 mg-160 mg Tab 160 mg, Oral, q12hr, 14 tab(s), Refill(s) 0, [facility] [facility] Start Date: 06/11/21 Status: Ordered Start: 12-01-2017 End: 12-01-2017 Sulfamethoxazole-Trimethopri m Discontinued TABLET December 01, 2017 12:00am December 01, 2017 8:44am tamsulosin hydrochloride 0.4 mg oral capsule (4 sources) alpha-Adrenergic Erica Start: 12-27-2022 take 1 capsule by mouth twice daily tamsulosin 0.4 mg Cap 0.4 mg = 1 cap(s), Oral, BID, # 30 cap(s), Refills(s) 0, Pharmacy: [facility] #[id number] Start Date: 12/27/22 Status: Ordered Completed/Discontinued Medications [...] procedure, # 2 tab(s), Refills(s) 0, Pharmacy: [facility] #[id number] Start Date: 01/20/24 Status: Ordered Start: 04-04-2022 take 1 tablet by kristina once daily Cipro 500 mg Tab 500 mg = 1 tab(s), Oral, Daily, Take 1 tablet the day before the procedure and 1 tablet after the procedure, # 2 tab(s), Refills(s) 0, Pharmacy: [facility] #[id number] Start Date: 11/26/22 Status: Ordered Start: 10-30-2021 [facility] Cipro 500 mg Tab 500 mg = 1 tab(s), Oral, Daily, Take 1 tablet the day before the procedure and 1 tablet after the procedure, # 2 tab(s), Refills(s) 0, Pharmacy: [facility] [facility] Start Date: 10/30/21 Status: Ordered hyoscyamine [...] tablet by mouth four times daily Methen-M.Blue-S.Ph ve-Lfohn-Ink (Uribel) 118-10-40.8-36 mg Capsule Discontinued 1 TAB [...] by mouth twice daily Sod Phos Di, Haralson-K Phos Haralson (Phospha 250 Neutral) 250 mg Tablet Discontinued [...] Coronary arteriosclerosis; Translations: [Atherosclerotic heart disease of [place] coronary artery without angina pectoris] Onset: 8 [...] aftercare (3 sources) Drug therapy finding; Translations: [MCC (current) use of opiate analgesic] 12-29-2023 Episodic Other aftercare (3 sources) MCC (current) use of opiate analgesic; Translations: [Long-term [...] and due to atherosclerosis; Translations: [Atherosclerosis of [place] arteries of extremities with intermittent claudication, bilateral [...] Onset: 05-01-2018 Episodic Other aftercare (1 source) MCC (current) use of aspirin; Translations: [CORRECTION CURRENT USE OF ASPIRIN] Onset: 05-01-2022 Episodic Other aftercare (1 source) infection control manager (current) use of antithrombotics/anti platelets; Translations: [CORRECTION ANTITHROMBOT/ANTIPLA TLETS] Onset: 05-01-2022 Episodic Other aftercare (1 source) Other ankle patch molder (current) drug therapy; Translations: [OTH LEDGER CLERK CURRENT DRUG THERAPY] Onset: 05-01-2022 Episodic Other [...] and will come in tomorrow. Keely and Skip to enter orders. Normal [facility] Orders Onlyon 05-10-2024 Orders Only [id number] Mykel Olivera 1940 [facility] Provider Department Center 05/10/2024 [id number], TANA CARD [facility] No family history on file Normal [facility] Reminderson 04-27-2024 Reminders Reminders - From: Sierra Rizzo To: EU - Recalls Theo; Sent: 04/27/2024 16:14:14 EDT Show up: 06/27/2024 16:14:00 EST Subject: Neph tube change Due Date/Time: 07/26/2024 16:14:00 EST Reminder/Recall Patient is due in Jul 2024 for 3 month neph [place] [facility] [place] [facility] Reminders Reminders - From: Sierra Rizzo To: EU - Recalllatisha Blanca; Sent: 10/31/2023 09:54:34 EDT Show up: 01/05/2024 09:54:00 EDT Subject: neph tube change Due Date/Time: 01/28/2024 09:54:00 EDT Reminder/Recall Patient will be due in January 2024 for 3 month neph tube change [place] [facility] [place]m on [facility] IR vm.SLICK Wray called back, pt sched for 02/13/24 @ 8:30am. Pt will be due in Apr 2024.LG Spoke to pt, he cannot do 05/04/24. L/m on [facility] [place] sched line to sched with Kamala .SLICK Wray called back, pt sched for 05/18/24 @ 7:45am. Order faxed [phone].LG Normal [facility] Office Visiton 04-19-2024 Follow-up visit [id number] Mykel Olivera 1940 M Date Provider Department Center 04/19/2024 Reji-EMANUEL GREGG CARD [facility] No family history on file Level of Service:41134 [place] OFFICE/OUTPATIENT ESTABLISHED MOD MDM 30 MIN Normal [facility] Reminderson 04-12-2024 Reminders Reminders - From: iSerra Rizzo To: EU - Recalls Theo; Sent: 04/12/2024 09:13:14 EDT Show up: 06/27/2024 09:12:00 EST Subject: neph tube change Due Date/Time: 07/19/2024 09:12:00 EST Reminder/Recall Patient needs right neph tube change in Jul 2024, 3 mo Normal [facility] C Urineon 04-07-2024 Bacteria identified Cx Nom (U) Microbiology PROCEDURE: Urine Culture [R1] SOURCE: U CleanCatch BODY SITE: COLLECTED DATE/TIME: 04/01/2024 12:43 EDT RECEIVED DATE/TIME: 04/01/2024 18:01 EDT START DATE/TIME: 04/01/2024 18:01 EDT FREE TEXT SOURCE: THEO CARDOSO, Kami BLANCA MD, Kami Silver FINAL REPORTS Final Report [] Verified Date/Time: 04/07/2024 09:47 EDT >100,000 cfu/ml Morganella morganii 75,000 cfu/ml Proteus mirabilis 75,000 cfu/ml Alcaligenes faecalis SUSCEPTIBILITY RESULTS LEGEND: S=Susceptible, N/R=Not Reported, Blank=Data not available, or drug not advisable or tested, I=Intermediate, ESBL=Extended spectrum beta-lactamase, R=Resistant, TFG=Thymidine-depend ent strain, CHARU=Beta-lactamase positive, RACHELLE=mcg/m;(mg/L), S*=Predicted susceptible interp, R*=Predicted resistant interp Morwar Promir Alcfae Antibiotic RACHELLE Dilutn RACHELLE Interp [...] Locations R1: This test was performed at: [facility], [address] [place] [address], [address]- , [place], Normal [facility] Comment on above: Performed By: #### 2 [id number] #### [facility] [address] [place] [address] IR nephrostomy tube chg UNon 02-13-2024 IR nephrostomy tube chg UN [facility] [place] [address] Interventional Radiology Rpt Signed Patient: Mykel Olivera MR#: [id number] : 1940 Acct:[id number] Age/Sex: 83 / M ADM Date: 02/13/24 Loc: IR Room: Type: [facility] Attending Dr: Kmai Blanca MD Copies to: MD Harish Harrison [...] nephrostomy tube was removed. A new 12 [place] nephrostomy tube was administered into the right renal pelvis with wire guidance. The guidewire removed and pigtail locked. Contrast administered confirming adequate position. The nephrostomy tube was secured to skin. No immediate complications. IR/IR nephrostomy tube chg UN IMPRESSION: Adequate replacement of 12 [place] right percutaneous nephrostomy tube. Impression dictated by: Declan Moreira M.D.02/13/2024 12:28 PM Dictation Location: [place] [address] Transcribed By: [facility] 02/13/24 1228 Dictated By: Declan Moreira DO 02/13/24 1223 Signed By: 02/13/24 1228 Normal [facility] UroVysion Fish and Urine Cyt o ([facility])on 02-06-2024 UVFISH & UC Diagnosis Info Invalid Interpretation Code [facility] Comment on above: Result Comment: A:Ur ine,Urine:Voided [...] on: 02/06/2024 16:35:49 Performed By: #### 1 [id number] #### [facility] [address] [place] [address] Ambulatory Visit Summaryon 0 02-02-2024 Ambulatory Visit Summary Ambulatory Visit Summary RICKI OLIVERA :1940 Visit Date:02/02/2024 Ambulatory Visit Instructions Your Diagnosis Acute UTI Hx of bladder cancer Your Care Team Attending Physician - THEO CARDOSO, Kami Silver Primary Care Physician - TERESITA BLACKWELL [...] for choosing us for your care. Normal [facility] UroVysion Fish and Urine Cyt o ([facility])on 02-02-2024 [facility] Method of Extraction Voided Normal [facility] Comment on above: Performed By: #### 1 [id number] #### [facility] [address] [place] [address] [facility] Number of Jars 1 Invalid Interpretation Code [facility] Comment on above: Performed By: #### 1 [id number] #### [facility] [address] [place] [address] [facility] Specimen Urine Normal [facility] Comment on above: Performed By: #### 1 [id number] #### [facility] [address] [place] [address] [facility] Type of Service Technical Only Normal [facility] Comment on above: Performed By: #### 1 [id number] #### [facility] [address] [place] [address] Reminderson 01-27-2024 Reminders Reminders - From: Sierra Rizzo To: EU - Recalls Blanca; Sent: 01/27/2024 12:47:06 EDT Show up: 11/25/2024 12:46:00 EDT Subject: cysto/fish/cytol Due Date/Time: 12/20/2024 12:47:00 EDT Reminder/Recall Patient is due in January 2025 for 1 year cysto/fish/cytol, bt ck Normal [facility] Consent for Procedure/Surger yon 01-21-2024 Consent for Procedure/Surgery [id number] #1.00TIFF Normal [facility] IR nephrostomy tube chg UNon 11-21-2023 IR nephrostomy tube chg UN [facility] [place] [address] Interventional Radiology Rpt Signed Patient: Mykel Olivera MR#: [id number] : 1940 Acct:[id number] Age/Sex: 83 / M ADM Date: 11/21/23 Loc: IR Room: Type: [facility] Attending [...] Declan Moreira M.D.11/21/2023 12:48 PM Dictation Location: [place] [address] Transcribed By: [facility] 11/21/23 1248 Dictated By: Declan Moreira DO 11/21/23 1239 Signed By: 11/21/23 1248 Normal [facility] Amorphous urine sedimenton 0 11-03-2023 Amorphous sediment LM Ql (Urine sed) RARE [facility] Automated epithelial cells c ount in urine sediment (number/area)on 11-03-2023 Epithelial cells Auto (Urine sed) [#/Area] FEW #/LPF NONE/RARE [facility] Automated leukocytes count i n urine sediment (number/area)on 11-03-2023 WBC Auto (Urine sed) [#/Area] 5-10 #/HPF 0-2 [facility] Automated urine sediment [place] cium oxalate crystal count by microscopy (number/high powon 11-03-2023 Calcium oxalate crystals LM.HPF (Urine sed) [#/Area] RARE [facility] Automated urine specific gra vity by refractometryon 11-03-2023 Specific gravity Refractometry automated (U) [Rel density] 1.020 1.005-1.025 [facility] Bilirubin Auto test strip (U ) [Mass/Vol]on 11-03-2023 Bilirubin (U) [Mass/Vol] Negative NEGATIVE [facility] Casts typing in urine sedime nt by light microscopyon 11-03-2023 Casts LM Nom (Urine sed) NONE SEEN #/LPF NONE SEEN [facility] Color Auto (U)on 11-03-2023 Color (U) LT. YELLOW YELLOW [facility] Erythrocyte distribution wid th Auto (RBC) [Ratio]on 11-03-2023 Erythrocyte distribution width (RBC) [Ratio] 13.7 % 11.0-15.0 [facility] Estimated glomerular filtrat ion rate (GFR) non- Americanon 11-03-2023 GFR/1.73 sq M.predicted among non-blacks MDRD (S/P/Bld) [Vol rate/Area] 25 mL/min/{1.73_m2} >=60 [facility] Hematocrit Auto (Bld) [Volum e fraction]on 11-03-2023 Hematocrit (Bld) [Volume fraction] 34.3 % 42.0-54.0 [facility] Hemoglobin [Mass/volume] in Bloodon 11-03-2023 Hemoglobin (Bld) [Mass/Vol] 11.0 g/dL 14.0-18.0 [facility] Ketones Auto test strip (U) [Mass/Vol]on 11-03-2023 Ketones (U) [Mass/Vol] Negative NEGATIVE [facility] Laboratory - Chemistry and C hemistry - challengeon 11-03-2023 Albumin [Mass/Vol] 3.5 g/dL 3.4-5.0 [facility] Calcium [Mass/Vol] 9.0 mg/dL 8.5-10.1 [facility] Chloride [Moles/Vol] 99 mmol/L 98-107 [facility] CO2 [Moles/Vol] 22.2 mmol/L 21.0-32.0 [facility] Creatinine [Mass/Vol] 2.48 mg/dL 0.70-1.30 [facility] GFR/1.73 sq M.predicted MDRD (S/P/Bld) [Vol rate/Area] 31 mL/min/{1.73_m2} >=60 [facility] Glucose [Mass/Vol] 137 mg/dL 74-106 [facility] Magnesium [Mass/Vol] 1.5 mg/dL 1.8-2.4 [facility] Potassium [Moles/Vol] 4.8 mmol/L 3.5-5.1 [facility] Sodium [Moles/Vol] 133 mmol/L 136-145 [facility] Urea nitrogen [Mass/Vol] 42.0 mg/dL 7.0-18.0 [facility] Urea nitrogen/Creatinine [Mass ratio] 16.9 mg/mg [facility] Leukocytes [#/volume] correc ronald for nucleated erythrocytes in Blood by Automated counon 11-03-2023 WBC corrected for nucl RBC Auto (Bld) [#/Vol] 5.9 10 3/uL 4.0-11.0 [facility] MCH Auto (RBC) [Entitic mass ]on 11-03-2023 MCH (RBC) [Entitic mass] 30.0 pg 25.9-34.0 [facility] MCHC Auto (RBC) [Mass/Vol]on 11-03-2023 MCHC (RBC) [Mass/Vol] 32.1 g/dL 29.9-35.2 [facility] MCV Auto (RBC) [Entitic vol] on 11-03-2023 MCV (RBC) [Entitic vol] 93.5 fL 80.0-94.0 [facility] Microalbumin [Mass/volume] i n Urineon 11-03-2023 Albumin DL <= 20 mg/L (U) [Mass/Vol] 20.1 mg/dL <=30.0 [facility] Mucus LM Ql (Urine sed)on Mucus Ql (Urine sed) NONE SEEN NONE SEEN [facility] No Panel Informationon 11-02 Phosphorus Level 3.9 mg/dL 2.6-4.7 [facility] Urine Random Creatinine 54.23 mg/dL 20.00-300.00 [facility] Platelet mean volume Auto (B ld) [Entitic vol]on 11-03-2023 Platelet mean volume (Bld) [Entitic vol] 10.3 fL 9.5-13.5 [facility] Platelets Auto (Bld) [#/Vol] on 11-03-2023 Platelets (Bld) [#/Vol] 144 10 3/uL 150-450 [facility] Protein Auto test strip (U) [Mass/Vol]on 11-03-2023 Protein (U) [Mass/Vol] 100 mg/dL NEG/TRACE [facility] RBC Auto (Bld) [#/Vol]on RBC (Bld) [#/Vol] 3.67 10 6/uL 4.70-6.10 [facility] Serum or plasma anion gap de terminationon 11-03-2023 Anion gap [Moles/Vol] 16.6 mmol/L [facility] Specific gravity Auto test s trip (U) [Rel density]on 11-03-2023 Specific gravity (U) [Rel density] CLEAR CLEAR [facility] Urine bacteria detection by automated methodon 11-03-2023 Bacteria Auto Ql (U) LARGE #/HPF NONE SEEN [facility] Urine glucose measurement by test strip (mass/volume)on 11-03-2023 Glucose Test strip (U) [Mass/Vol] Negative NEGATIVE [facility] Urine hemoglobin detection b y automated test stripon 11-03-2023 Hemoglobin Auto test strip Ql (U) LARGE NEGATIVE [facility] Urine microalbumin/creatinin e mass ratioon 11-03-2023 Albumin/Creatinine DL <= 20 mg/L (U) [Mass ratio] 370.6 mg/g 0.0-29.9 [facility] Comment on above: NO MICROALBUMINURIA 0-29 MG/GCLINICAL MICROALBUMINURIA 30-300 MG/GMACROALBUMINURIA >300 MG/G Urine nitrite detection by a utomated test stripon 11-03-2023 Nitrite Auto test strip Ql (U) MODERATE NEGATIVE [facility] Nitrite Auto test strip Ql (U) Positive NEGATIVE [facility] Urine sediment crystal ident ification by light microscopyon 11-03-2023 Crystals LM Nom (Urine sed) Seen #/HPF None Seen [facility] Urine sediment leukocyte cou nt by microscopy (number/high power field)on 11-03-2023 WBC LM.HPF (Urine sed) [#/Area] 10-20 #/HPF NONE SEEN [facility] Urobilinogen Auto test strip (U) [Mass/Vol]on 11-03-2023 Urobilinogen Qn (U) 0.2 {Raffi'U}/dL 0.2-1.0 [facility] pH Auto test strip (U)on pH (U) 7.5 [pH] 5.0-9.0 [facility] Physician Orderon 10-31-2023 Physician Order [id number] #1.00TIFF Normal [facility] Reminderson 10-31-2023 Reminders - From: Sierra Rizzo To: EU - Recalls Blanca; Cc: Sierra Rizzo; Sent: 07/08/2023 09:01:46 EST Show up: 08/28/2023 09:01:00 EST Subject: Neph tube change Due Date/Time: 09/22/2023 09:01:00 EST Reminder/Recall Patient is due in September 2023 for 3 month RT neph tube change at [facility] Patient had neph tube changed in Jul by Dr. Gonsalez due to problems. Pt will be due in October 2023.LG Spoke to pt, he is available all month. l/m on [facility] interventional sched vm to sched.LG Kamala called back, pt sched for 11/20/23 @ 8am, Order faxed . new thread. Normal [facility] Office Visiton 10-07-2023 Follow-up visit [id number] Mykel Olivera 1940 M Date Provider Department Center 10/07/2023 RAJENDRA VILLEGAS CARD [facility] No family history on file Level of Service:83444 [place] OFFICE/OUTPATIENT ESTABLISHED LOW MDM 20 MIN Normal [facility] Physician Orderon 08-06-2023 Physician Order [id number] #1.00TIFF Normal [facility] Capillary blood glucose cecilia urement by glucometer (mass/volume)Ordered By: PROVIDER TEMP on 08-05-2023 Glucose [Mass/Vol] 138 mg/dL Normal [facility] Comment on above: Random Glucose Refer ence Range is dependent on time and content of last meal. Glucose of more than 200 mg/dL in a nonstressed, ambulatory subject supports the diagnosis of Diabetes Mellitus. Result Comment: [place] om Glucose Reference Range is dependent on time and content of last meal. Glucose of more than 200 mg/dL in a nonstressed, ambulatory subject supports the diagnosis of Diabetes Mellitus. PERFORMED BY: [facility] [address] [place] [address] PATHOLOGIST CEMENT SACK BREAKER CAMI RAYA M.D. Performed By: #### G LUTA #### Point of Care testing , ECG 12 lead ECGon 08-05-2023 ECG 12 lead ECG [facility] [address] [place] [id number] Electrocardiograph Report Signed Patient: Mykel Olivera MR#: [id number] : 1940 Acct:[id number] Age/Sex: 83 / M ADM Date: 08/05/23 Loc: ER Room: Type: [facility] Attending Dr: Ordering Provider: Jose D Hercules [...] available Confirmed by JOSE D HERCULES MD ([id number]) on 08/05/2023 5:39:43 AM Referred By: Electronically Signed By:JOSE D HERCULES MD Transcribed By: MUS Signed By Jose D Hercules Jr, MD 0539 Normal [facility] RAD - MISCon 07-29-2023 RAD - MIS [id number] #1.00TIFF Normal [facility] IR nephrostomy tube chg UNon 07-25-2023 IR nephrostomy tube chg UN [facility] [address] [place] [id number] Interventional Radiology Rpt Signed Patient: Mykel Olivera MR#: [id number] : 1940 Acct:[id number] Age/Sex: 83 / M ADM Date: 07/25/23 Loc: IR Room: Type: [facility] Attending Dr: Kami Blanca MD Copies to: MD Harish Harrison [...] nephrostomy tube. The tube was removed. 12 [place] RIGHT nephrostomy tube was administered with a wire guidance. The tube is in adequate position and was locked. Contrast was administered confirming adequate position. No immediate complications. IR/IR nephrostomy tube chg UN IMPRESSION: Adequate exchange of 12 [place] RIGHT nephrostomy tube. Impression dictated by: Declan Moreira M.D.07/25/2023 11:15 AM Dictation Location: [place] [address] Transcribed By: [facility] 07/25/23 1115 Dictated By: Declan Moreira DO 07/25/23 1109 Signed By: 07/25/23 1115 Normal [facility] Physician Orderon 07-08-2023 Physician Order [id number] #1.00TIFF Normal [facility] IR nephrostomy tube chg UNon 04-22-2023 IR nephrostomy tube chg UN [facility] [place] [address] Interventional Radiology Rpt Signed Patient: Mykel Olivera MR#: [id number] : 1940 Acct:[id number] Age/Sex: 83 / M ADM Date: 04/22/23 Loc: IR Room: Type: [facility] Attending Dr: Declan Moreira DO Copies to: Declan Moreria DO Ordering Provider: Declan Moreira DO Date of Service: 04/22/23 IR/IR nephrostomy tube chg UN: RT NEPH TUBE EXCHANGE Interventional radiology nephrostomy tube exchange Cumulative Air Kerma in mGy: 43.4 mGy. One image obtained. Right-sided nephrostomy tube was exchanged. 12 [place] nephrostomy tube utilized. Tube was advanced with a wire guidance. Contrast was administered with adequate position noted. IR/IR nephrostomy tube chg UN IMPRESSION: Successful exchange of the RIGHT percutaneous nephrostomy tube. Impression dictated by: Declan Moreira M.D.04/22/2023 11:20 AM Dictation Location: [place] [address] Transcribed By: [facility] 04/22/23 1120 Dictated By: Declan Moreira DO 04/22/23 1117 Signed By: 04/22/23 1120 Normal [facility] BUNon 12-24-2022 Urea nitrogen [Mass/Vol] 40.0 mg/dL Critically high 7.0-18.0 [facility] Comment on above: Performed By: #### H H #### [facility] [address] [address] [address] Lilly Cordova CREATININEon 12-24-2022 Creatinine [Mass/Vol] 2.33 mg/dL Critically high 0.70-1.30 [facility] Comment on above: Performed By: #### H H #### [facility] [address] [address] [address] Lilly Cordova EGFR-AF ERITREAN 33 mL/min/1.73m2 Critically low >=60 [facility] Comment on above: Performed By: #### H H #### [facility] [address] [address] [address] Lilly Cordova EGFR-NON AF ERITREAN 27 mL/min/1.73m2 Critically low >=60 [facility] Comment on above: Performed By: #### H H #### [facility] [address] [address] [address] ABD/PELVIS WO CONon [...] by: GUSTAVO BUSTILLO Date: 2022-12-24 10:21 Normal [facility] XR KUB 1 VIEWon 11-12-2022 XR KUB [...] by: BETZY JAMES Date: 2022-11-12 10:01 Normal [facility] CULTURE URINEon 11-07-2022 CULTURE URINE Isolate 1 [...] F Trimethoprim/Sulfame thoxazole <=20 S F Normal [facility] Comment on above: Performed By: #### H H #### [facility] [address] [place] [address] Dr. Lilly Cordova PTH INTACTon 11-05-2022 PTH, Intact 46 pg/mL Normal 15-65 [facility] Comment on above: Performed By: #### P THINT #### [facility] [address] [place] [address] Dr. Lilly Cordova ALBUMINon 11-04-2022 Albumin [Mass/Vol] 3.6 g/dL Normal 3.4-5.0 [facility] Comment on above: Performed By: #### B MP, PHOS, MG, ALB, URIC #### [facility] [address] [place] [address] Dr. Lilly Cordova HEMOGRAM AND PLATELon 2022 Hematocrit (Bld) [Volume fraction] 34.7 % Critically low 42.0-54.0 [facility] Comment on above: Performed By: #### H H #### [facility] [address] [place] [address] Dr. Lilly Cordova Hemoglobin (Bld) [Mass/Vol] 11.7 g/dL Critically low 14.0-18.0 [facility] Comment on above: Performed By: #### H H #### [facility] [address] [place] [address] Dr. Lilly Cordova MCH (RBC) [Entitic mass] 31.0 pg Normal 25.9-34.0 [facility] Comment on above: Performed By: #### H H #### [facility] [address] [place] [address] Dr. Lilly Cordova MCHC (RBC) [Mass/Vol] 33.7 g/dL Normal 29.9-35.2 [facility] Comment on above: Performed By: #### H H #### [facility] [address] [place] [address] Dr. Lilly Cordova MCV (RBC) [Entitic vol] 91.8 fL Normal 80.0-94.0 [facility] Comment on above: Performed By: #### H H #### [facility] [address] [place] [address] Dr. Lilly Cordova PLT 129 103/ul Critically low 150-450 [facility] Comment on above: Performed By: #### H H #### [facility] [address] [place] [address] Dr. Lilly Cordova RBC 3.78 106/ul Critically low 4.70-6.10 [facility] Comment on above: Performed By: #### H H #### [facility] [address] [place] [address] Dr. Lilly Cordova WBC 6.2 103/ul Normal 4.0-11.0 [facility] Comment on above: Performed By: #### H H #### [facility] [address] [place] [address] Dr. Lilly Cordova MAGNESIUMon 11-04-2022 Magnesium [Mass/Vol] 1.5 mg/dL Critically low 1.8-2.4 [facility] Comment on above: Performed By: #### B MP, PHOS, MG, ALB, URIC #### [facility] [address] [place] [address] Dr. Lilly Cordova MICROALB CREAT RATIO RANDOMo n 11-04-2022 mALB 13.5 mg/L Normal <=30.0 [facility] Comment on above: Performed By: #### M CRR #### [facility] [address] [place] [address] Dr. Lilly Cordova MALB CR RATIO 238.9 mg/g Critically high 0.0-29.9 [facility] Comment on above: Performed By: #### M CRR #### [facility] [address] [place] [address] Dr. Lilly Cordova MALNancy CR RATIO RANGE SEE BELOW Normal [facility] Comment on above: Result Comment: NO M ICROALBUMINURIA 0-29 MG/G CLINICAL MICROALBUMINURIA 30-300 MG/G MACROALBUMINURIA >300 MG/G Performed By: #### M CRR #### [facility] [address] [place] [address] Dr. Lilly Cordova URINE CREAT 56.52 mg/dL Normal 20.00-300.00 [facility] Comment on above: Performed By: #### M CRR #### [facility] [address] [place] [address] Dr. Lilly Cordova PHOSPHORUSon 11-04-2022 Phosphate [Mass/Vol] 3.0 mg/dL Normal 2.6-4.7 [facility] Comment on above: Performed By: #### B MP, PHOS, MG, ALB, URIC #### [facility] [address] [place] [address] Dr. Lilly Cordova PROF CHEM 8 (BAS METB)on Anion gap [Moles/Vol] 13.0 mmol/L Normal [facility] Comment on above: Performed By: #### B MP, PHOS, MG, ALB, URIC #### [facility] [address] [place] [address] Dr. Lilly Cordova Calcium [Mass/Vol] 9.1 mg/dL Normal 8.5-10.1 [facility] Comment on above: Performed By: #### B MP, PHOS, MG, ALB, URIC #### [facility] [address] [place] [address] Dr. Lilly Cordova Chloride [Moles/Vol] 102 mmol/L Normal 98-107 [facility] Comment on above: Performed By: #### B MP, PHOS, MG, ALB, URIC #### [facility] [address] [place] [address] Dr. Lilly Cordova CO2 [Moles/Vol] 25.0 mmol/L Normal 21.0-32.0 [facility] Comment on above: Performed By: #### B MP, PHOS, MG, ALB, URIC #### [facility] [address] [place] [address] Dr. Lilly Cordova Creatinine [Mass/Vol] 1.79 mg/dL Critically high 0.70-1.30 [facility] Comment on above: Performed By: #### B MP, PHOS, MG, ALB, URIC #### [facility] [address] [place] [address] Dr. Lilly Cordova EGFR-AF ERITREAN 45 mL/min/1.73m2 Critically low >=60 [facility] Comment on above: Performed By: #### B MP, PHOS, MG, ALB, URIC #### [facility] [address] [place] [address] Dr. Lilly Cordova EGFR-NON AF ERITREAN 37 mL/min/1.73m2 Critically low >=60 [facility] Comment on above: Performed By: #### B MP, PHOS, MG, ALB, URIC #### [facility] [address] [place] [address] Dr. Lilly Cordova Glucose [Mass/Vol] 106 mg/dL Normal 74-106 [facility] Comment on above: Performed By: #### B MP, PHOS, MG, ALB, URIC #### [facility] [address] [place] [address] Dr. Lilly Cordova Potassium [Moles/Vol] 5.0 mmol/L Normal 3.5-5.1 [facility] Comment on above: Performed By: #### B MP, PHOS, MG, ALB, URIC #### [facility] [address] [place] [address] Dr. Lilly Cordova Sodium [Moles/Vol] 135 mmol/L Critically low 136-145 [facility] Comment on above: Performed By: #### B MP, PHOS, MG, ALB, URIC #### [facility] [address] [place] [address] Dr. Lilly Cordova Urea nitrogen [Mass/Vol] 35.0 mg/dL Critically high 7.0-18.0 [facility] Comment on above: Performed By: #### B MP, PHOS, MG, ALB, URIC #### [facility] [address] [place] [address] Dr. Lilly Cordova Urea nitrogen/Creatinine [Mass ratio] 19.6 mg/mg Normal [facility] Comment on above: Performed By: #### B MP, PHOS, MG, ALB, URIC #### [facility] [address] [place] [address] Dr. Lilly Cordova UA (CLEAN/CATCH) LOOM MECHANIC/MICRO I F IND.on 11-04-2022 Bilirubin Ql (U) Negative Normal NEGATIVE [facility] Comment on above: Performed By: #### H H #### [facility] [address] [place] [address] Dr. Lilly Cordova Clarity (U) CLEAR Normal CLEAR [facility] Comment on above: Performed By: #### H H #### [facility] [address] [place] [address] Dr. Lilly Cordova Color (U) LT. YELLOW Normal YELLOW [facility] Comment on above: Performed By: #### H H #### [facility] [address] [place] [address] Dr. Lilly Cordova Glucose Ql (U) Negative Normal NEGATIVE [facility] Comment on above: Performed By: #### H H #### [facility] [address] [place] [address] Dr. Lilly Cordova Hemoglobin Ql (U) MODERATE Abnormal NEGATIVE [facility] Comment on above: Performed By: #### H H #### [facility] [address] [place] [address] Dr. Lilly Cordova Ketones Ql (U) Negative Normal NEGATIVE [facility] Comment on above: Performed By: #### H H #### [facility] [address] [place] [address] Dr. Lilly Cordova LEUKOCYTES MODERATE Abnormal NEGATIVE [facility] Comment on above: Performed By: #### H H #### [facility] [address] [place] [address] Dr. Lilly Cordova Nitrite Ql (U) Positive Abnormal NEGATIVE [facility] Comment on above: Performed By: #### H H #### [facility] [address] [place] [address] Dr. Lilly Cordova pH (U) 7.5 [pH] Normal 5-9 [facility] Comment on above: Performed By: #### H H #### [facility] [address] [place] [address] Dr. Lilly Cordova SPEC GRAVITY 1.010 Normal 1.005-<=1.025 [facility] Comment on above: Performed By: #### H H #### [facility] [address] [place] [address] Dr. Lilly Cordova UA PROTEIN 30 mg/dl Abnormal NEGATIVE/ TRACE [facility] Comment on above: Performed By: #### H H #### [facility] [address] [place] [address] Dr. Lilly Cordova UR MICRO IND INDICATED Normal [facility] Comment on above: Performed By: #### H H #### [facility] [address] [place] [address] Dr. Lilly Cordova Urobilinogen Qn (U) 0.2 {Raffi'U}/dL Normal 0.2 - 1. 0 [facility] Comment on above: Performed By: #### H H #### [facility] [address] [place] [address] Dr. Lilly Cordova URIC ACID SERUMon 11-04-2022 Urate [Mass/Vol] 5.2 mg/dL Normal 3.5-7.2 [facility] Comment on above: Performed By: #### B MP, PHOS, MG, ALB, URIC #### [facility] [address] [place] [address] Dr. Lilly Cordova URINE MICROSCOPIC ONLYon BACTERIA TRACE Abnormal NONE SEEN [facility] Comment on above: Performed By: #### H H #### [facility] [address] [place] [address] Dr. Lilly Cordova Bacteria identified Cx Nom (U) INDICATED Normal [facility] Comment on above: Performed By: #### H H #### [facility] [address] [place] [address] Dr. Lilly Cordova CAST NONE SEEN Normal NONE SEEN [facility] Comment on above: Performed By: #### H H #### [facility] [address] [place] [address] Dr. Lilly Cordova Crystals LM Nom (Urine sed) NONE SEEN Normal NONE SEEN [facility] Comment on above: Performed By: #### H H #### [facility] [address] [place] [address] Dr. Lilly Cordova Epithelial cells LM Ql (Urine sed) NONE SEEN Normal NONE SEEN /RARE [facility] Comment on above: Performed By: #### H H #### [facility] [address] [place] [address] Dr. Lilly Cordova MUCOUS NONE SEEN Normal NONE SEEN [facility] Comment on above: Performed By: #### H H #### [facility] [address] [place] [address] Dr. Lilly Cordova RBC 2-5 Abnormal 0-2 [facility] Comment on above: Performed By: #### H H #### [facility] [address] [place] [address] Dr. Lilly Cordova WBC 10-20 Abnormal NONE SEEN [facility] Comment on above: Performed By: #### H H #### [facility] [address] [place] [address] Dr. Lilly Cordova VITAMIN D 25 OHon 11-04-2022 VIT D 25-OH 58.3 ng/mL Normal [facility] Comment on above: Performed By: #### H H #### [facility] [address] [place] [address] Dr. Lilly Cordova VIT D RANGES SEE BELOW Normal [facility] Comment on above: Result Comment: <20 ng/mL Vit D deficient 20 - <30 ng/mL Vit D insufficient 30 - 100 ng/mL Vit D sufficient >100 ng/mL Potential Toxicity Performed By: #### H H #### [facility] [address] [place] [address] Dr. Lilly Cordova HEMOGLOBINon 07-10-2022 Hemoglobin (Bld) [Mass/Vol] 11.6 g/dL Critically low 14.0-18.0 [facility] Comment on above: Performed By: #### H GB #### [facility] [address] [address] [address] Lilly Cordova NM STRESS/REST MULTIon 06-03 NM STRESS/REST MULTI Patient: MYKLE OLIVERA Exam Date: 06/03/2022 : 1940 Gender:M Ordering : ZOILA [facility]QUE [facility] Admission #: [id number] Family : Order #: [id number] CLICK HERE TO VIEW EXAM RADIOLOGY REPORT [...] MD on 06/04/2022 at 07:50 Normal [facility] PROF CHEM 8 (BAS METB)on Anion gap [Moles/Vol] 11.2 mmol/L Normal [facility] Comment on above: Performed By: #### H H #### [facility] [address] [address] [address] Lilly Cordova Calcium [Mass/Vol] 8.8 mg/dL Normal 8.5-10.1 [facility] Comment on above: Performed By: #### H H #### [facility] [address] [address] [address] Lilly Cordova Chloride [Moles/Vol] 103 mmol/L Normal 98-107 [facility] Comment on above: Performed By: #### H H #### [facility] [address] [address] [address] Lilly Cordova CO2 [Moles/Vol] 25.2 mmol/L Normal 21.0-32.0 [facility] Comment on above: Performed By: #### H H #### [facility] [address] [address] [address] Lilly Cordova Creatinine [Mass/Vol] 1.87 mg/dL Critically high 0.70-1.30 [facility] Comment on above: Performed By: #### H H #### [facility] [address] [address] [address] Lilly Cordova EGFR-AF ERITREAN 42 mL/min/1.73m2 Critically low >=60 [facility] Comment on above: Performed By: #### H H #### [facility] [address] [address] [address] Lilly Cordova EGFR-NON AF ERITREAN 35 mL/min/1.73m2 Critically low >=60 [facility] Comment on above: Performed By: #### H H #### [facility] [address] [address] [address] Lilly Cordova Glucose [Mass/Vol] 126 mg/dL Critically high 74-106 [facility] Comment on above: Performed By: #### H H #### [facility] [address] [address] [address] Lilly Cordova Potassium [Moles/Vol] 4.4 mmol/L Normal 3.5-5.1 [facility] Comment on above: Performed By: #### H H #### [facility] [address] [place] [address] Dr. Lilly Cordova Sodium [Moles/Vol] 135 mmol/L Critically low 136-145 [facility] Comment on above: Performed By: #### H H #### [facility] [address] [place] [address] Dr. Lilly Cordova Urea nitrogen [Mass/Vol] 32.0 mg/dL Critically high 7.0-18.0 [facility] Comment on above: Performed By: #### H H #### [facility] [address] [place] [address] Dr. Lilly Cordova Urea nitrogen/Creatinine [Mass ratio] 17.1 mg/mg Normal [facility] Comment on above: Performed By: #### H H #### [facility] [address] [place] [address] Dr. Lilly Cordova PTH INTACTon 05-07-2022 PTH, Intact 28 pg/mL Normal 15-65 [facility] Comment on above: Performed By: #### P THINT #### [facility] [address] [place] [address] Dr. Lilly Cordova HEMOGRAM AND PLATELon 2021 Hematocrit (Bld) [Volume fraction] 34.2 % Critically low 42.0-54.0 [facility] Comment on above: Performed By: #### H H #### [facility] [address] [place] [address] Dr. Lilly Cordova Hemoglobin (Bld) [Mass/Vol] 11.5 g/dL Critically low 14.0-18.0 [facility] Comment on above: Performed By: #### H H #### [facility] [address] [place] [address] Dr. Lilly Cordova MCH (RBC) [Entitic mass] 31.3 pg Normal 25.9-34.0 [facility] Comment on above: Performed By: #### H H #### [facility] [address] [address] [address] Lilly Cordova MCHC (RBC) [Mass/Vol] 33.6 g/dL Normal 29.9-35.2 [facility] Comment on above: Performed By: #### H H #### [facility] [address] [place] [address] Dr. Lilly Cordova MCV (RBC) [Entitic vol] 93.2 fL Normal 80.0-94.0 [facility] Comment on above: Performed By: #### H H #### [facility] [address] [place] [address] Dr. Lilly Cordova PLT 130 103/ul Critically low 150-450 [facility] Comment on above: Performed By: #### H H #### [facility] [address] [place] [address] Dr. Lilly Cordova RBC 3.67 106/ul Critically low 4.70-6.10 [facility] Comment on above: Performed By: #### H H #### [facility] [address] [place] [address] Dr. Lilly Cordova WBC 6.5 103/ul Normal 4.0-11.0 [facility] Comment on above: Performed By: #### H H #### [facility] [address] [place] [address] Dr. Lilly Cordova MAGNESIUMon 05-06-2022 Magnesium [Mass/Vol] 1.4 mg/dL Critically low 1.8-2.4 [facility] Comment on above: Performed By: #### P THINT #### [facility] [address] [place] [address] Dr. Lilly Cordova PHOSPHORUSon 05-06-2022 Phosphate [Mass/Vol] 3.0 mg/dL Normal 2.6-4.7 [facility] Comment on above: Performed By: #### P THINT #### [facility] [address] [place] [address] Dr. Lilly Cordova PROF CHEM 8 (BAS METB)on Anion gap [Moles/Vol] 10.5 mmol/L Normal [facility] Comment on above: Performed By: #### P THINT #### [facility] [address] [address] [address] Lilly Cordova Calcium [Mass/Vol] 9.1 mg/dL Normal 8.5-10.1 [facility] Comment on above: Performed By: #### P THINT #### [facility] [address] [address] [address] Lilly Cordova Chloride [Moles/Vol] 103 mmol/L Normal 98-107 [facility] Comment on above: Performed By: #### P THINT #### [facility] [address] [address] [address] Lilly Cordova CO2 [Moles/Vol] 27.9 mmol/L Normal 21.0-32.0 [facility] Comment on above: Performed By: #### P THINT #### [facility] [address] [address] [address] Lilly Cordova Creatinine [Mass/Vol] 1.77 mg/dL Critically high 0.70-1.30 [facility] Comment on above: Performed By: #### P THINT #### [facility] [address] [address] [address] Lilly Cordova EGFR-AF ERITREAN 45 mL/min/1.73m2 Critically low >=60 [facility] Comment on above: Performed By: #### P THINT #### [facility] [address] [address] [address] Lilly Cordova EGFR-NON AF ERITREAN 37 mL/min/1.73m2 Critically low >=60 [facility] Comment on above: Performed By: #### P THINT #### [facility] [address] [address] [address] Lilly Cordova Glucose [Mass/Vol] 98 mg/dL Normal 74-106 [facility] Comment on above: Performed By: #### P THINT #### [facility] [address] [address] [address] Lilly Cordova Potassium [Moles/Vol] 5.4 mmol/L Critically high 3.5-5.1 [facility] Comment on above: Performed By: #### P THINT #### [facility] [address] [address] [address] Lilly Cordova Sodium [Moles/Vol] 136 mmol/L Normal 136-145 [facility] Comment on above: Performed By: #### P THINT #### [facility] [address] [place] [address] Dr. Lilly Cordova Urea nitrogen [Mass/Vol] 30.0 mg/dL Critically high 7.0-18.0 [facility] Comment on above: Performed By: #### P THINT #### [facility] [address] [place] [address] Dr. Lilly Cordova Urea nitrogen/Creatinine [Mass ratio] 16.9 mg/mg Normal [facility] Comment on above: Performed By: #### P THINT #### [facility] [address] [place] [address] Dr. Lilly Cordova URIC ACID SERUMon 05-06-2022 Urate [Mass/Vol] 5.2 mg/dL Normal 3.5-7.2 [facility] Comment on above: Performed By: #### P THINT #### [facility] [address] [place] [address] Dr. Lilly Cordova VITAMIN D 25 OHon 05-06-2022 VIT D 25-OH 56.4 ng/mL Normal [facility] Comment on above: Performed By: #### V ITAD #### [facility] [address] [place] [address] Dr. Lilly Cordova VIT D RANGES SEE BELOW Normal [facility] Comment on above: Result Comment: <20 ng/mL Vit D deficient 20 - <30 ng/mL Vit D insufficient 30 - 100 ng/mL Vit D sufficient >100 ng/mL Potential Toxicity Performed By: #### V ITAD #### [facility] [address] [place] [address] Dr. Lilly Cordova ECHOCARDIO M/2D COMPLETEon 0 04-16-2022 ECHOCARDIO M/2D COMPLETE Patient: MYKEL OLIVERA Exam Date: 04/16/2022 : 1940 Gender:M Ordering : OLEKSANDR CROSS Admission #: [id number] Family : DR BENSON MANCINI D.O. Order #: [id number] CLICK HERE TO VIEW EXAM ECHOCARDIOGRAM REPORT [...] Gregg M.D. on 04/18/2022 at 16:09 Normal [facility] Vital Signs Date Time Vital Sign Value Performing Clinician Facility 04-02-2024 09:59-0400 Body height 182.88 cm DO Benson [employer] Work Phone: [facility] 04-02-2024 09:59-0400 Body mass index (BMI) [Ratio] 22.2 kg/m2 DO Benson [employer] Work Phone: [facility] 04-02-2024 09:59-0400 Body weight 74.44 kg DO Benson Ball Work Phone: [facility] 04-02-2024 09:59-0400 Diastolic blood pressure 76 mm[Hg] DO Benson [employer] Work Phone: [facility] 04-02-2024 09:59-0400 Heart rate 85 /min DO Benson Ball Work Phone: [facility] 04-02-2024 09:59-0400 Respiratory rate 12 /min DO Benson Ball Work Phone: [facility] 04-02-2024 09:59-0400 Systolic blood pressure 176 mm[Hg] DO Benson Ball Work Phone: [facility] 12-31-2023 10:49-0400 Body height 182.88 cm DO Benson Ball Work Phone: [facility] 12-31-2023 10:49-0400 Body mass index (BMI) [Ratio] 23.3 kg/m2 DO Benson Ball Work Phone: [facility] 12-31-2023 10:49-0400 Body weight 78.24 kg DO Benson Ball Work Phone: [facility] [facility] 12-31-2023 10:49-0400 Diastolic blood pressure 80 mm[Hg] DO Benson Ball Work Phone: [facility] 12-31-2023 10:49-0400 Heart rate 86 /min DO Benson Ball Work Phone: [facility] 12-31-2023 10:49-0400 Respiratory rate 12 /min DO Benson Ball Work Phone: [facility] 12-31-2023 10:49-0400 Systolic blood pressure 193 mm[Hg] DO Benson Ball Work Phone: [facility] 09-30-2023 10:26-0500 Body height 182.88 cm DO Benson Ball Work Phone: [facility] 09-30-2023 10:26-0500 Body mass index (BMI) [Ratio] 23.6 kg/m2 DO Benson Ball Work Phone: [facility] 09-30-2023 10:26-0500 Body weight 79.09 kg DO Benson Ball Work Phone: [facility] 09-30-2023 10:26-0500 Diastolic blood pressure 65 mm[Hg] DO Benson Ball Work Phone: [facility] 09-30-2023 10:26-0500 Heart rate 93 /min DO Benson Ball Work Phone: [facility] 09-30-2023 10:26-0500 Respiratory rate 12 /min DO Benson Ball Work Phone: [facility] 09-30-2023 10:26-0500 Systolic blood pressure 167 mm[Hg] DO Benson Ball Work Phone: [facility] 08-05-2023 05:03-0500 Diastolic blood pressure 77 mm[Hg] DO Benson Ball Work Phone: [facility] 08-05-2023 05:03-0500 Heart rate 97 /min DO Benson Ball Work Phone: [facility] 08-05-2023 05:03-0500 Respiratory rate 18 /min DO Benson Ball Work Phone: [facility] 08-05-2023 05:03-0500 SaO2% (BldA) [Mass fraction] 99 % DO Benson Ball Work Phone: [facility] 08-05-2023 05:03-0500 Systolic blood pressure 173 mm[Hg] DO Benson Ball Work Phone: [facility] 08-05-2023 00:36-0500 Body height 182.88 cm DO Benson Ball Work Phone: [facility] 08-05-2023 00:36-0500 Body temperature 97.5 [degF] DO Benson Ball Work Phone: [facility] 08-05-2023 00:36-0500 Body weight 80.9 kg DO Benson Ball Work Phone: [facility] 07-29-2023 10:30-0500 Body height 177.8 cm Benson Ball Other [employer] [facility] [employer] Other 07-29-2023 10:30-0500 Body mass index (BMI) [Ratio] 25.57 kg/m2 Benson Ball Other [employer] Other 07-29-2023 10:30-0500 Body weight 80.83 kg Benson Ball Other [employer] Other 07-29-2023 10:30-0500 Diastolic blood pressure 73 mm[Hg] Benson Ball Other [employer] Other 07-29-2023 10:30-0500 Respiratory rate 12 /min Benson Ball Other [employer] Other 07-29-2023 10:30-0500 Systolic blood pressure 191 mm[Hg] Benson Ball Other [employer] Other 04-25-2023 11:30-0400 Body height 177.8 cm Benson Ball Other [employer] Other 04-25-2023 11:30-0400 Body mass index (BMI) [Ratio] 25.42 kg/m2 Ebnson Ball Other [employer] Other 04-25-2023 11:30-0400 Body weight 80.38 kg Benson Ball Other [employer] Other 04-25-2023 11:30-0400 Diastolic blood pressure 80 mm[Hg] Benson Ball Other [employer] Other 04-25-2023 11:30-0400 Respiratory rate 12 /min Benson Ball Other [employer] Other 04-25-2023 11:30-0400 Systolic blood pressure 150 mm[Hg] Benson Ball Other [employer] Other 01-23-2023 11:00-0400 Body height 177.8 cm Benson Ball Other [employer] Other 01-23-2023 11:00-0400 Body mass index (BMI) [Ratio] 25.57 kg/m2 Benson Ball Other [employer] Other 01-23-2023 11:00-0400 Body weight 80.83 kg Benson Ball Other [employer] Other 01-23-2023 11:00-0400 Diastolic blood pressure 57 mm[Hg] Benson Ball Other [employer] Other 01-23-2023 11:00-0400 Respiratory rate 12 /min Benson Ball Other [employer] Other 01-23-2023 11:00-0400 Systolic blood pressure 146 mm[Hg] Benson Ball Other [employer] Other 10-23-2022 12:00-0400 Body height 177.8 cm Benson Ball Other [employer] Other 10-23-2022 12:00-0400 Body mass index (BMI) [Ratio] 25.82 kg/m2 Benson Ball Other [employer] Other 10-23-2022 12:00-0400 Body weight 81.65 kg Benson Ball Other [employer] Other 10-23-2022 12:00-0400 Diastolic blood pressure 72 mm[Hg] Benson Ball Other [employer] Other 10-23-2022 12:00-0400 Respiratory rate 12 /min Benson Ball Other [employer] Other 03-29-2023 12:00-0400 Systolic blood pressure 158 mm[Hg] Benson Ball Other [facility] [employer] Other 07-03-2022 11:14-0500 Body weight 0 kg DO Benson Ball Work Phone: [facility] 03-26-2022 15:15-0400 Body weight 0 kg DO Benson Ball Work Phone: [facility] 12-19-2021 10:04-0400 Body weight 0 kg DO Benson Ball Work Phone: [facility] Encounters Encounter Date Encounter Type Care Provider Facility Start: 04-19-2024 End: 04-19-2024 ambulatory [facility] Start: 04-02-2024 End: 04-02-2024 ambulatory DO Benson Ball Work Phone: [facility] Work Phone: Start: 04-02-2024 End: 04-02-2024 Patient encounter procedure DO Benson Ball Work Phone: [facility] Work Phone: Start: 04-01-2024 End: 04-01-2024 ambulatory Kami BLANCA [place] Start: 04-01-2024 End: 04-01-2024 Lab Drop off Kami BLANCA [facility] Start: 04-01-2024 End: 04-01-2024 ambulatory Kami BLANCA Facility:[facility] Start: 04-01-2024 End: 04-01-2024 Patient encounter procedure Kami BLANCA [facility] Start: 02-13-2024 End: 02-13-2024 Admission to same day surgery center DO Benson Ball Work Phone: [facility] Work Phone: Start: 02-13-2024 End: 02-13-2024 ambulatory DO Benson Ball Work Phone: [facility] Work Phone: Start: 02-09-2024 End: 02-09-2024 ambulatory Kami BLANCA Facility:[id number] Start: 02-02-2024 End: 02-02-2024 ambulatory Kami BLANCA [place] Start: 02-02-2024 End: 02-02-2024 Lab Drop off Kami BLANCA [facility] Start: 02-02-2024 End: 02-02-2024 ambulatory Kami BLANCA Facility:[facility] Start: 02-02-2024 End: 02-02-2024 Patient encounter procedure Kami BLANCA [facility] Start: 12-31-2023 End: 12-31-2023 ambulatory DO Benson Ball Work Phone: [facility] Work Phone: Start: 12-31-2023 End: 12-31-2023 Patient encounter procedure DO Benson Ball Work Phone: [facility] Work Phone: Start: 11-21-2023 End: 11-21-2023 Admission to same day surgery center DO Benson Ball Work Phone: [facility] Work Phone: Start: 11-21-2023 End: 11-21-2023 ambulatory DO Benson Ball Work Phone: [facility] Work Phone: Start: 11-03-2023 Non-patient / Non-visit DO Boone mora Ball Work Phone: [facility] Work Phone: Start: 10-08-2023 Non-patient / Non-visit DO Boone Mancini Work Phone: [facility] Work Phone: Start: 10-07-2023 End: 10-07-2023 ambulatory RAJENDRA NUÑEZ [facility] Start: 09-30-2023 End: 09-30-2023 Patient encounter procedure DO Benson Mancini Work Phone: [facility] Work Phone: Start: 08-14-2023 End: 08-14-2023 Emergency department patient visit LANEY DOWLING [facility] Start: 08-05-2023 End: 08-05-2023 ambulatory Benson Mancini Other [employer] Other Start: 08-05-2023 Telephone encounter Benson FRAZIER [facility] Start: 08-05-2023 End: 08-05-2023 Emergency department patient visit DO Benson Mancini Work Phone: [facility] Work Phone: Start: 08-01-2023 End: 08-01-2023 ambulatory Benson Mancini Other [employer] Other Start: 08-01-2023 Telephone encounter Benson FRAZIER [facility] Start: 07-29-2023 End: 07-29-2023 ambulatory Benson Mancini Other [employer] Other Start: 07-29-2023 Patient encounter procedure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
[2024-05-24] MEDS: HYDROCODONE/ACET 5-325 MG TABLET 1 TAB PO (02:46)
[2024-05-24 02:51] LABS: Alanine Aminotransferase 76 U/L (16-63); Albumin Globulin Ratio 0.7; Albumin Level 2.5 g/dL (3.4-5.0); Alkaline Phosphatase 228 U/L (46-116); Anion Gap 16.8; Aspartate Amino Transferase 205 U/L (15-37); BUN Creatinine Ratio 18.2; Calcium 8.9 mg/dL (8.5-10.1); Carbon Dioxide 18.1 mmol/L (21.0-32.0); Chloride 98 mmol/L (98-107); Estimated GFR (African America 32 (>=60 mL/min/1.73m^2); Estimated GFR (Non-African Ame 27 (>=60 mL/min/1.73m^2); Globulin 3.8 g/dL; Glucose 137 mg/dL (74-106); Potassium 4.9 mmol/L (3.5-5.1); Segmented Neut Absolute Manual 9.09 10^3/uL (1.4-6.5); Sodium 128 mmol/L (136-145); Total Protein 6.3 g/dL (6.4-8.2); Troponin I High Sensitivity 34.5 pg/mL (4.0-76.1)
[2024-05-24 02:52] LABS: Lymphocytes Absolute Manual 0.85 10^3/uL (1.20-3.80); Monocytes Absolute Manual 0.74 10^3/uL (0.30-0.80)
[2024-05-24 02:58] LABS: Lactate/Lactic Acid 1.5 mmol/L (0.4-2.0)
[2024-05-24] MEDS: ONDANSETRON PF 4 MG/2 ML VIAL IV (04:09)
[2024-05-24] MEDS: MORPHINE SULFATE 4 MG/ML VIAL IV (04:09)
--- NOTE | 2024-05-24 04:27 | ECG_ITS ---
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
[2024-05-24 05:21] LABS: Troponin I High Sensitivity 30.5 pg/mL (4.0-76.1)
[2024-05-24] MEDS: HYDROCODONE/ACET 5-325 MG TABLET 2 TAB PO (06:29)
== END 2024-05-24 06:43 | disposition home or self-care (01) ==
PROVIDERS: Emergency Provider Emergency Medicine; PCP Internal Medicine
DX: R07.89 Other chest pain (principal); N18.9 Chronic kidney disease, unspecified; D64.9 Anemia, unspecified; E87.1 Hypo-osmolality and hyponatremia; N99.528 Other complication of incontinent external stoma of urinary tract; Z95.5 Presence of coronary angioplasty implant and graft
CPT/HCPCS: 36415; 71045; 80053; 81001; 83605; 84484; 85007; 85027; 93005; 96374; 96375; 99285; J2270; J2405

== ENCOUNTER 2024-05-25 15:23 | Emergency (ER) | payer MEDICARE, SELFPAY ==
[2024-05-25] VITALS (49 sets, daily range): BP systolic 153–190; BP diastolic 60–132; PULSE 91–111; TEMP 37.5; O2SAT 93–98; BMI 19.8
--- NOTE | 2024-05-25 15:37 | ECG_ITS ---
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
--- NOTE | 2024-05-25 15:47 | ED.GENADUL1 ---
Documented by User: Dimitri Tolliver MD 05/25/24 18:28 HPI HPI - General Adult General Chief complaint: Abdominal Pain Stated complaint: flank pain/weakness Time Seen by Provider: 05/25/24 15:25 Source: patient and family Mode of arrival: Wheelchair Limitations: no limitations History of Present Illness HPI narrative: This patient is here with his complaining of black stools and discomfort in his belly. He was worked up extensively here yesterday have reviewed those medical records. He was given Vicodin but no NSAIDs. He has a chronic right-sided nephrostomy tube and is under the care of local urology group for that. Apparently he had bladder cancer that extended into the ureter and he has had this tube for approximately 5 years. He just noticed his stool turning black recently. To his knowledge he has not had previous gastritis gastric cancer or any GI malignancy. He has not had a colonoscopy recently. He does take blood thinners but does not have any other clinical bleeding today. He is scheduled to have his nephrostomy tube changed but he also just recently underwent cardiac catheterization that fortunately showed no occlusions of his coronary bypass grafts. That was done just recently. Related Data Home Medications ?Medication ?Instructions ?Recorded ?Confirmed apixaban 2.5 mg tablet (Eliquis) 2.5 mg PO Q12H 08/14/23 05/24/24 atorvastatin 40 mg tablet 40 mg PO BEDTIME 08/14/23 05/24/24 ferrous sulfate 325 mg (65 mg 325 mg PO DAILY 08/14/23 05/24/24 iron) tablet (FeroSul) hydralazine 25 mg tablet 25 mg PO Q12H 08/14/23 05/24/24 hydrocodone 5 mg-acetaminophen 325 1 tab PO BID PRN pain 08/14/23 05/24/24 mg tablet isosorbide mononitrate 30 mg 30 mg PO DAILY 08/14/23 05/24/24 tablet,extended release 24 hr magnesium oxide 400 mg (241.3 mg 400 mg PO DAILY 08/14/23 05/24/24 magnesium) tablet multivit with min-folic 1 tab PO DAILY 08/14/23 05/24/24 acid-lutein 400 mcg-250 mcg chewable tablet (Centrum Silver) Allergies Allergy/AdvReac Type Severity Reaction Status Date / Time povidone-iodine (From Allergy Rash Verified 05/24/24 02:09 Betadine) Opioid HPI Opioid Management Most Recent Opioid Data: Last Pain Scale 4 05/25/24 22:44 05/25/24 Last ED Pain Assessment 05/25/24 20:00 [facility] Medical History (Updated 05/25/24 @ 20:56 by Los Dinero MD) Abnormal cystoscopy ?R39.9 - Unspecified symptoms and signs involving the genitourinary system (ICD-10) Bladder cancer ?C67.9 - Malignant neoplasm of bladder, unspecified (ICD-10) Malfunction of nephrostomy tube ?T83.098A - Other mechanical complication of other urinary catheter, initial encounter (ICD-10) Surgical History (Updated 02/04/24 @ 13:08 by Lorena Polo) H/O transurethral resection of bladder tumor (TURBT) ?Z98.890 - Other specified postprocedural states (ICD-10) ?Z86.03 - Personal history of neoplasm of uncertain behavior (ICD-10) H/O transurethral resection of prostate ?Z98.890 - Other specified postprocedural states (ICD-10) ?Z90.79 - Acquired absence of other genital organ(s) (ICD-10) 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 Do you use any of these nicotine containing products: smokeless tobacco Smokeless tobacco user: snuff Non-prescribed substance use: denies use Previous occupational history: [employer] Highest level of school completed/degree received: some college, no degree Little interest or pleasure in doing things: not at all Feeling down, depressed, or hopeless: not at all Exam Narrative Exam Narrative: Patient is awake alert he is not Confused or lethargic. . He is here his she he moves about comfortably does not show any focal neurological deficits or altered mental status. His skin is warm and dry is not clammy or diaphoretic. Pulses are strong. His lunchroom monitor does show some ectopic irregularity. His abdominal examination is benign with no guarding rebound rigidity or peritoneal findings. Nephrostomy tube is noted on the right side lumbar area , draining clear yellow urine. Rectal examination shows old external hemorrhoids. There is no stool in the rectal vault. Prostate is felt to be enlarged. The mucosal secretions are black and Hemoccult will be done. Skin shows no petechia purpura or ecchymosis or hemorrhaging. Heart sounds show what appears to be ventricular bigeminy pattern based on his twelve-lead EKG. This was brief. Constitutional Vital Signs, click to edit/add: Last Vital Signs Temp 99.5 F 05/25/24 15:28 Pulse 102 H 05/25/24 22:50 Resp 21 H 05/25/24 22:50 BP 169/91 H 05/25/24 22:30 Pulse Ox 95 05/25/24 22:50 O2 Del Method Room Air 05/25/24 15:28 Course Vital Signs Vital signs: Vital Signs Temperature 99.5 F 05/25/24 15:28 Pulse Rate 109 H 05/25/24 15:28 Respiratory Rate 24 H 05/25/24 15:28 Blood Pressure 190/60 H 05/25/24 15:28 Pulse Oximetry 98 05/25/24 15:28 Oxygen Delivery Method Room Air 05/25/24 15:28 Temperature 99.5 F 05/25/24 15:28 Pulse Rate 102 H 05/25/24 22:50 Respiratory Rate 21 H 05/25/24 22:50 Blood Pressure 169/91 H 05/25/24 22:30 Pulse Oximetry 95 05/25/24 22:50 Oxygen Delivery Method Room Air 05/25/24 15:28 Medical Decision Making MDM Narrative Medical decision making narrative: His laboratory testing today discloses substantial changes from yesterday's visit to the ER. His liver function test have markedly increased. His hemoglobin down slightly. His stool occult blood is positive. His BUN and creatinine are also worsening. CT of the abdomen shows again a large lobular heterogeneous hepatic mass which appears increased in size compared to August 14 at 2023. There is no significant biliary duct dilation and an unremarkable appearing gallbladder. This case was discussed with our hospitalist here who believes the patient should be treated at a larger center. The hospitalist in [facility] has excepted the case but contingent upon acceptance by a consulting insulation board head saw operator Dr. Swenson who we have paged and are awaiting final disposition at this time Lab Data Labs: Lab Results 05/25/24 05/25/24 Range/Units 15:47 17:35 WBC 14.9 H (4.0-11.0) 10^3/uL RBC 2.50 L (4.70-6.10) 10^6/uL Hgb 7.7 L (14.0-18.0) g/dL Hct 22.9 L* (42.0-54.0) % MCV 91.6 (80.0-94.0) fL MCH 30.8 (25.9-34.0) pg MCHC 33.6 (29.9-35.2) g/dL RDW 14.0 (11.0-15.0) % Plt Count 269 (150-450) 10^3/uL MPV 9.8 (9.5-13.5) fL Seg Neuts % (Manual) 91.0 H (43.0-75.0) Lymphocytes % (Manual) 2.0 L (20.5-60.0) % Monocytes % (Manual) 7.0 (1.7-12.0) % Eosinophils % (Manual) 0.0 L (0.9-7.0) % Basophils % (Manual) 0.0 L (0.2-2.0) % Neutrophils # (Manual) 13.55 H (1.4-6.5) 10^3/uL Lymphocytes # (Manual) 0.29 L (1.20-3.80) 10^3/uL Monocytes # (Manual) 1.04 H (0.30-0.80) 10^3/uL Eosinophils # (Manual) 0.00 (0.00-0.70) 10^3/uL Basophils # (Manual) 0.00 (0.00-0.10) 10^3/uL PT 13.0 H (9.0-11.6) sec INR 1.25 Sodium 124 L* (136-145) mmol/L Potassium 5.6 H (3.5-5.1) mmol/L Chloride 93 L (98-107) mmol/L Carbon Dioxide 16.6 L (21.0-32.0) mmol/L Anion Gap 20.0 BUN 52.0 H (7.0-18.0) mg/dL Creatinine 2.97 H (0.70-1.30) mg/dL Est GFR ( Amer) 25 L (>=60 mL/min/1.73m^2) Est GFR (Non-Af Amer) 20 L (>=60 mL/min/1.73m^2) BUN/Creatinine Ratio 17.5 Glucose 137 H (74-106) mg/dL Lactate 1.8 (0.4-2.0) mmol/L Calcium 9.2 (8.5-10.1) mg/dL Total Bilirubin 1.2 H (0.2-1.0) mg/dL AST 849 H* (15-37) U/L ALT 142 H (16-63) U/L Alkaline Phosphatase 332 H (46-116) U/L Troponin I High Sens 42.9 (4.0-76.1) pg/mL Total Protein 6.9 (6.4-8.2) g/dL Albumin 2.7 L (3.4-5.0) g/dL Globulin 4.2 g/dL Albumin/Globulin Ratio 0.6 Lipase 30.0 (16.0-77.0) U/L Urine Color Lt. yellow (YELLOW) Urine Clarity Clear (CLEAR) Urine pH >=9.0 A (5.0-9.0) Ur Specific [place] 1.010 (1.005-1.025) Urine Protein 100 A (NEG/TRACE) mg/dL Urine Glucose (UA) Negative (NEGATIVE) mg/dL Urine Ketones Negative (NEGATIVE) mg/dL Urine Occult Blood Moderate A (NEGATIVE) Urine Nitrite Negative (NEGATIVE) Urine Bilirubin Negative (NEGATIVE) Urine Urobilinogen 0.2 (0.2-1.0) EU/dL Ur Leukocyte Esterase Moderate A (NEGATIVE) Urine RBC 5-10 A (0-2) #/HPF Urine WBC 5-10 A (NONE SEEN) #/HPF Ur Squamous Epith Cells Rare (NONE/RARE) #/LPF Urine Crystals Seen A (None Seen) #/HPF Triple Phos Crystals Rare Urine Bacteria Small A (NONE SEEN) #/HPF Urine Casts None seen (NONE SEEN) #/LPF Urine Mucus None seen (NONE SEEN) Ur Culture Indicated? Yes Stool Occult Blood Positive A Discharge Plan Discharge Chief Complaint: Abdominal Pain Clinical Impression: Abdominal pain, Acute upper GI bleed, Liver mass, Acute renal failure, Acute hyponatremia Patient Disposition: [facility] Hospital Discharge Date/Time: 05/25/24 23:32 Documented by User: Los Dinero MD 05/26/24 04:55 HPI HPI - General Adult General Chief complaint: Abdominal Pain Stated complaint: flank pain/weakness Time Seen by Provider: 05/25/24 15:25 Related Data Home Medications ?Medication ?Instructions ?Recorded ?Confirmed apixaban 2.5 mg tablet (Eliquis) 2.5 mg PO Q12H 08/14/23 05/24/24 atorvastatin 40 mg tablet 40 mg PO BEDTIME 08/14/23 05/24/24 ferrous sulfate 325 mg (65 mg 325 mg PO DAILY 08/14/23 05/24/24 iron) tablet (FeroSul) hydralazine 25 mg tablet 25 mg PO Q12H 08/14/23 05/24/24 hydrocodone 5 mg-acetaminophen 325 1 tab PO BID PRN pain 08/14/23 05/24/24 mg tablet isosorbide mononitrate 30 mg 30 mg PO DAILY 08/14/23 05/24/24 tablet,extended release 24 hr magnesium oxide 400 mg (241.3 mg 400 mg PO DAILY 08/14/23 05/24/24 magnesium) tablet multivit with min-folic 1 tab PO DAILY 08/14/23 05/24/24 acid-lutein 400 mcg-250 mcg chewable tablet (Centrum Silver) Allergies Allergy/AdvReac Type Severity Reaction Status Date / Time povidone-iodine (From Allergy Rash Verified 05/24/24 02:09 Betadine) Opioid HPI Opioid Management Most Recent Opioid Data: Last Pain Scale 4 05/25/24 22:44 05/25/24 Last ED Pain Assessment 05/25/24 20:00 PFSH PFSH Medical History (Updated 10/29/24 @ 20:56 by Los Dinero MD) Abnormal cystoscopy ?R39.9 - Unspecified symptoms and signs involving the genitourinary system (ICD-10) Bladder cancer ?C67.9 - Malignant neoplasm of bladder, unspecified (ICD-10) Malfunction of nephrostomy tube ?T83.098A - Other mechanical complication of other urinary catheter, initial encounter (ICD-10) Surgical History (Updated 02/04/24 @ 13:08 by Lorena Polo) H/O transurethral resection of bladder tumor (TURBT) ?Z98.890 - Other specified postprocedural states (ICD-10) ?Z86.03 - Personal history of neoplasm of uncertain behavior (ICD-10) H/O transurethral resection of prostate ?Z98.890 - Other specified postprocedural states (ICD-10) ?Z90.79 - Acquired absence of other genital organ(s) (ICD-10) 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 Do you use any of these nicotine containing products: smokeless tobacco Smokeless tobacco user: snuff Non-prescribed substance use: denies use Previous occupational history: [employer] Highest level of school completed/degree received: some college, no degree Little interest or pleasure in doing things: not at all Feeling down, depressed, or hopeless: not at all Exam Constitutional Vital Signs, click to edit/add: Last Vital Signs Temp 99.5 F 05/25/24 15:28 Pulse 102 H 05/25/24 22:50 Resp 21 H 05/25/24 22:50 BP 169/91 H 05/25/24 22:30 Pulse Ox 95 05/25/24 22:50 O2 Del Method Room Air 05/25/24 15:28 Course Vital Signs Vital signs: Vital Signs Temperature 99.5 F 05/25/24 15:28 Pulse Rate 109 H 05/25/24 15:28 Respiratory Rate 24 H 05/25/24 15:28 Blood Pressure 190/60 H 05/25/24 15:28 Pulse Oximetry 98 05/25/24 15:28 Oxygen Delivery Method Room Air 05/25/24 15:28 Temperature 99.5 F 05/25/24 15:28 Pulse Rate 102 H 05/25/24 22:50 Respiratory Rate 21 H 05/25/24 22:50 Blood Pressure 169/91 H 05/25/24 22:30 Pulse Oximetry 95 05/25/24 22:50 Oxygen Delivery Method Room Air 05/25/24 15:28 Medical Decision Making MDM Narrative Medical decision making narrative: His laboratory testing today discloses substantial changes from yesterday's visit to the ER. His liver function test have markedly increased. His hemoglobin down slightly. His stool occult blood is positive. His BUN and creatinine are also worsening. CT of the abdomen shows again a large lobular heterogeneous hepatic mass which appears increased in size compared to August 14 at 2023. There is no significant biliary duct dilation and an unremarkable appearing gallbladder. This case was discussed with our hospitalist here who believes the patient should be treated at a larger center. The hospitalist in [facility] has excepted the case but contingent upon acceptance by a consulting insulation board head saw operator Dr. Swenson who we have paged and are awaiting final disposition at this time care transferred at change of shift. Discussed with Hospitalist at [facility] and patient accepted in transfer Lab Data Labs: Lab Results 05/25/24 05/25/24 Range/Units 15:47 17:35 WBC 14.9 H (4.0-11.0) 10^3/uL RBC 2.50 L (4.70-6.10) 10^6/uL Hgb 7.7 L (14.0-18.0) g/dL Hct 22.9 L* (42.0-54.0) % MCV 91.6 (80.0-94.0) fL MCH 30.8 (25.9-34.0) pg MCHC 33.6 (29.9-35.2) g/dL RDW 14.0 (11.0-15.0) % Plt Count 269 (150-450) 10^3/uL MPV 9.8 (9.5-13.5) fL Seg Neuts % (Manual) 91.0 H (43.0-75.0) Lymphocytes % (Manual) 2.0 L (20.5-60.0) % Monocytes % (Manual) 7.0 (1.7-12.0) % Eosinophils % (Manual) 0.0 L (0.9-7.0) % Basophils % (Manual) 0.0 L (0.2-2.0) % Neutrophils # (Manual) 13.55 H (1.4-6.5) 10^3/uL Lymphocytes # (Manual) 0.29 L (1.20-3.80) 10^3/uL Monocytes # (Manual) 1.04 H (0.30-0.80) 10^3/uL Eosinophils # (Manual) 0.00 (0.00-0.70) 10^3/uL Basophils # (Manual) 0.00 (0.00-0.10) 10^3/uL PT 13.0 H (9.0-11.6) sec INR 1.25 Sodium 124 L* (136-145) mmol/L Potassium 5.6 H (3.5-5.1) mmol/L Chloride 93 L (98-107) mmol/L Carbon Dioxide 16.6 L (21.0-32.0) mmol/L Anion Gap 20.0 BUN 52.0 H (7.0-18.0) mg/dL Creatinine 2.97 H (0.70-1.30) mg/dL Est GFR ( Amer) 25 L (>=60 mL/min/1.73m^2) Est GFR (Non-Af Amer) 20 L (>=60 mL/min/1.73m^2) BUN/Creatinine Ratio 17.5 Glucose 137 H (74-106) mg/dL Lactate 1.8 (0.4-2.0) mmol/L Calcium 9.2 (8.5-10.1) mg/dL Total Bilirubin 1.2 H (0.2-1.0) mg/dL AST 849 H* (15-37) U/L ALT 142 H (16-63) U/L Alkaline Phosphatase 332 H (46-116) U/L Troponin I High Sens 42.9 (4.0-76.1) pg/mL Total Protein 6.9 (6.4-8.2) g/dL Albumin 2.7 L (3.4-5.0) g/dL Globulin 4.2 g/dL Albumin/Globulin Ratio 0.6 Lipase 30.0 (16.0-77.0) U/L Urine Color Lt. yellow (YELLOW) Urine Clarity Clear (CLEAR) Urine pH >=9.0 A (5.0-9.0) Ur Specific [place] 1.010 (1.005-1.025) Urine Protein 100 A (NEG/TRACE) mg/dL Urine Glucose (UA) Negative (NEGATIVE) mg/dL Urine Ketones Negative (NEGATIVE) mg/dL Urine Occult Blood Moderate A (NEGATIVE) Urine Nitrite Negative (NEGATIVE) Urine Bilirubin Negative (NEGATIVE) Urine Urobilinogen 0.2 (0.2-1.0) EU/dL Ur Leukocyte Esterase Moderate A (NEGATIVE) Urine RBC 5-10 A (0-2) #/HPF Urine WBC 5-10 A (NONE SEEN) #/HPF Ur Squamous Epith Cells Rare (NONE/RARE) #/LPF Urine Crystals Seen A (None Seen) #/HPF Triple Phos Crystals Rare Urine Bacteria Small A (NONE SEEN) #/HPF Urine Casts None seen (NONE SEEN) #/LPF Urine Mucus None seen (NONE SEEN) Ur Culture Indicated? Yes Stool Occult Blood Positive A Discharge Plan Discharge Chief Complaint: Abdominal Pain Clinical Impression: Abdominal pain, Acute upper GI bleed, Liver mass, Acute renal failure, Acute hyponatremia Patient Disposition: [facility] Discharge Date/Time: 05/25/24 23:32
--- NOTE | 2024-05-25 15:51 | CT_ITS ---
[address] [address] Patient Name: MYKEL IRIZARRY MRN: [id number] date: 1940 Sex: M Assigned Patient Location: ER Current Patient Location: Accession/Order Number: [id number] Exam Date: 05/25/2024 16:10 Report Date: 05/25/2024 17:25 At the request of: LISHA SANTOS Procedure: CT abdomen pelvis wo con EXAM: CT abdomen pelvis wo con HISTORY: Abdominal pain/positioning of nephrostomy tube . Increasing lower abdominal pain. COMPARISON: 08/14/2023. 12/24/2022. TECHNIQUE: Unenhanced helical acquisition obtained through the abdomen and the pelvis. FINDINGS: Cardiac enlargement. Severe calcifications of the partially included coronary arteries. Right-sided gynecomastia is noted. Small layering bilateral pleural effusions. Large lobular heterogeneous hepatic mass is again identified, which overall appears increased in size as compared to 08/14/2023, which is not well assessed on this unenhanced examination. Unremarkable gallbladder. No significant biliary ductal dilatation. Allowing for the lack of intravenous contrast, the spleen, pancreas and the adrenal glands are unremarkable. Percutaneous nephrostomy catheter with the tip coiled within the right intrarenal collecting system. No significant hydronephrosis. A 6 x 5 mm calculus within the distal third of the right ureter which is essentially unchanged in position as compared to 08/14/2023. Exophytic 4.6 cm cyst arising from the posterior-superior right renal cortex. Moderate global left renal atrophy. Moderate to severe diffuse atherosclerotic vascular calcifications. Small fat-containing umbilical hernia. Diverticulosis without radiographic evidence of diverticulitis. Small volume of ascites within the pelvis. Normal appendix. CT/CT abdomen pelvis wo con IMPRESSION: 1. Right-sided percutaneous nephrostomy catheter tip is coiled within intrarenal collecting system. No significant hydronephrosis. Unchanged position of a 6 x 5 mm calculus within the distal third of the right ureter. 2. Increasing size of heterogeneous lobular hepatic mass which is not well assessed on this unenhanced examination. A dedicated MRI of the liver could be considered for more optimal assessment. 3. Cardiomegaly. Severe coronary arterial calcifications. 4. Right-sided gynecomastia. 5. Small volume of ascites. 6. Small layering bilateral pleural effusions. 7. Diverticulosis without radiographic evidence of diverticulitis. Electronically authenticated by: JOSE D DESAI Date: 05/25/2024 17:25
[2024-05-25 15:56] LABS: Hemoglobin 7.7 g/dL (14.0-18.0); Mean Corpuscular HGB Conc 33.6 g/dL (29.9-35.2); Mean Corpuscular Hemoglobin 30.8 pg (25.9-34.0); Mean Corpuscular Volume 91.6 fL (80.0-94.0); Mean Platelet Volume 9.8 fL (9.5-13.5); Platelet Count 269 10^3/uL (150-450); White Blood Count 14.9 10^3/uL (4.0-11.0)
[2024-05-25 16:00] LABS: Hematocrit 22.9 % (42.0-54.0)
[2024-05-25 16:11] LABS: INR 1.25
[2024-05-25 16:13] LABS: Alanine Aminotransferase 142 U/L (16-63); Albumin Globulin Ratio 0.6; Albumin Level 2.7 g/dL (3.4-5.0); Alkaline Phosphatase 332 U/L (46-116); BUN Creatinine Ratio 17.5; Bilirubin Total 1.2 mg/dL (0.2-1.0); Calcium 9.2 mg/dL (8.5-10.1); Carbon Dioxide 16.6 mmol/L (21.0-32.0); Chloride 93 mmol/L (98-107); Estimated GFR (African America 25 (>=60 mL/min/1.73m^2); Estimated GFR (Non-African Ame 20 (>=60 mL/min/1.73m^2); Globulin 4.2 g/dL; Glucose 137 mg/dL (74-106); Potassium 5.6 mmol/L (3.5-5.1); Total Protein 6.9 g/dL (6.4-8.2)
[2024-05-25 16:16] LABS: Aspartate Amino Transferase 849 U/L (15-37); Sodium 124 mmol/L (136-145)
[2024-05-25 16:27] LABS: Internal Control Within Normal Limits; Occult Blood Positive; Segmented Neut Absolute Manual 13.55 10^3/uL (1.4-6.5)
[2024-05-25 16:28] LABS: Lymphocytes Absolute Manual 0.29 10^3/uL (1.20-3.80); Monocytes Absolute Manual 1.04 10^3/uL (0.30-0.80)
[2024-05-25] MEDS: 0.9 % SODIUM CHLORIDE 500 ML 999 ML IV (16:42)
[2024-05-25] MEDS: HYDROMORPHONE HCL 1 MG/ML CARTRIDGE 0.5 MG IVP (16:42)
[2024-05-25 17:01] LABS: Lactate/Lactic Acid 1.8 mmol/L (0.4-2.0)
[2024-05-25] MEDS: FAMOTIDINE/PF 20 MG/2 ML VIAL IV (17:02)
[2024-05-25] MEDS: PIPERACILLIN SODIUM/TAZOBACTAM 3.375 GM in 0.9 % SODIUM CHLORIDE 50 ML IV (17:02)
[2024-05-25 17:25] LABS: Troponin I High Sensitivity 42.9 pg/mL (4.0-76.1)
[2024-05-25 17:43] LABS: Bilirubin Urine NEGATIVE (NEGATIVE); Blood Urine MODERATE (NEGATIVE); Clarity Urine CLEAR (CLEAR); Color Urine LT. YELLOW (YELLOW); Glucose Urine UA NEGATIVE (NEGATIVE); Ketones Urine NEGATIVE (NEGATIVE); Leukocyte Esterase Urine MODERATE (NEGATIVE); Nitrite Urine NEGATIVE (NEGATIVE); Protein Urine 100 mg/dL (NEG/TRACE); Urobilinogen Urine 0.2 EU/dL (0.2-1.0); pH Urine >=9.0 (5.0-9.0)
[2024-05-25 18:04] LABS: Bacteria Urine SMALL #/HPF (NONE SEEN); Mucus Urine NONE SEEN (NONE SEEN); Squamous Epithelial Cell Urine RARE #/LPF (NONE/RARE)
[2024-05-25 18:05] LABS: Cast Seen? NONE SEEN #/LPF (NONE SEEN); Crystals Seen? Seen #/HPF (None Seen); Triple Phosphate Crystal Urine RARE; Urine Culture Indicated YES
[2024-05-25] MEDS: HYDROMORPHONE HCL 1 MG/ML CARTRIDGE IV ×2 (19:30→22:44)
== END 2024-05-25 23:32 | disposition short-term general hospital (02) ==
PROVIDERS: Emergency Medicine Emergency Medical Services; Emergency Provider Internal Medicine; PCP Internal Medicine
DX: K92.2 Gastrointestinal hemorrhage, unspecified (principal); R10.9 Unspecified abdominal pain; R16.0 Hepatomegaly, not elsewhere classified; N17.9 Acute kidney failure, unspecified; E87.1 Hypo-osmolality and hyponatremia; Z85.51 Personal history of malignant neoplasm of bladder; Z85.54 Personal history of malignant neoplasm of ureter; Z93.6 Other artificial openings of urinary tract status
CPT/HCPCS: 36415; 74176; 80053; 81001; 83605; 83690; 84484; 85007; 85027; 85610; 87040; 87086; 93005; 96365; 96375; 96376; 99285; G0328; J1171; J2543

== ENCOUNTER 2024-06-21 10:11 | Outpatient (OUT) | payer MEDICARE, SELFPAY ==
--- OUTSIDE RECORDS SUMMARY | 2024-06-21 10:36 | XMS_ITS | CCD ---
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 Machinist Name Role Phone RICHIE WALTON Attending Unavailable RICHIE WALTON Admitting Unavailable BENSON HERCULES Referring Unavailable DIOMEDES, BENSON Primary Care Unavailable JUAN BLACKWELL Primary Care Physician DO Benson Hercules Primary Care Provider MD Steven Coronado Attending Provider DO Benson Hercules Primary Care Provider Harish, DO Manriquez Attending Provider Unavailable Diomedes, DO Knowles Primary Care Provider MD Kami Venegas Attending Provider [phone] Moreira, DO Manriquez Attending Provider Unavailable Benson Hercules Unavailable DR BENSON HERCULES Attending Unavailable BALL, DR KNOWLES Consulting Unavailable [...] Unavailable BALL, DR KNOWLES Primary Care Unavailable VENEGAS ., DR MCCLURE Attending Unavailable VENEGAS ., DR MCCLURE Consulting Unavailable VENEGAS ., DR MCCLURE Admitting Unavailable BALL, DR KNOWLES Primary Care Unavailable ZIEBER, DR BETZY Silver Consulting Unavailable BALL, DR KNOWLES Attending Unavailable BALL, DR KNOWLES Consulting Unavailable BALL, DR KNOWLES Primary Care Unavailable BALL, DR KNOWLES Admitting Unavailable VENEGAS ., DR MCCLURE Admitting Unavailable VENEGAS ., DR MCCLURE Attending Unavailable VENEGAS ., DR MCCLURE Consulting Unavailable BALL, DR KNOWLES Primary Care Unavailable GUSTAVO BUSTILLO Consulting Unavailable VENEGAS ., DR MCCLURE Attending Unavailable VENEGAS ., DR MCCLURE Consulting Unavailable VENEGAS ., DR MCCLURE Admitting Unavailable BALL, DR KNOWLES Primary Care Unavailable BALL, DR KNOWLES Primary Care Unavailable VENEGAS ., DR MCCLURE Attending Unavailable VENEGAS ., DR MCCLURE Consulting Unavailable VENEGAS ., DR MCCLURE Admitting Unavailable BALL, DR KNOWLES Primary Care Unavailable AMERICA, LEANNA Admitting Unavailable AMERICA, LEANNA Attending Unavailable AMERICA, LEANNA Consulting Unavailable WEST, DR KANNAN Stack Consulting [...] REQUEST, DR NONE LISTED Attending Unavaila ble Diomedes, DO Knowles Primary Care Provider [phone] MD Kami Venegas Attending Provider Diomedes, DO Knowles Primary Care Provider [phone] MD Kami Venegas Attending Provider MD Jose D Hercules Jr Emergency Provider DO Benson Hercules Primary Care Provider Harish, DO Manriquez Attending Provider Unavailable MD Kami Venegas Attending Provider [phone] Diomedes, DO Knowles Primary Care Provider BENSON HERCULES Primary Care Physician Kami VENEGAS R Attending Unavailable VENEGAS, Kami R Admitting Unavailable VENEGAS, Kami R Attending Unavailable VENEGAS, Kami R Attending Unavailable VENEGAS, Kami R Attending Unavailable VENEGAS, Kami R Admitting Unavailable VENEGAS, Kami R Attending Unavailable ELTAHAWY, EHAB Admitting Unavailable ELTAHAWY, EHAB Attending Unavailable ELTAHAWY, EHAB Referring Unavailable ELTAHAWY, EHAB Attending Unavailable RAJENDRA NUÑEZ Attending Unavailable ELTAHAWY, EHAB Attending Unavailable LANEY DOWLING Referring Unavailable PHYSICIAN, UNKNOWN Referring Unavailable [facility] Consulting Unavailable KAYYALI, AMMAR I Admitting Unavailable KAYYALI, AMMAR I Attending Unavailable FELECIA HUTSON Consulting Unavailable ZOGRAFIDES, STACY Herr Consulting Unavailable RANKBENNIE NORTON Consulting Unavailable AILYN SHEN Consulting Unavailable TANATRAMAINE CARVER Consulting Unavailable MAGMONTSERRAT RIVAS Consulting Unavailable Diomedes GRAHAM, Benson E Primary Care Provider Benson Hercules Primary Care Unavailable Jose D Hercules Jr Admitting Unavailable Jose D Hercules Jr Attending Unavailable Venegas, Kami Attending Unavailable Ball, Benson Primary Care Unavailable Venegas, Kami Admitting Unavailable Ball, Benson Primary Care Unavailable Venegas, Kami Admitting Unavailable Venegas, Kami Attending Unavailable Ball, Benson Primary Care Unavailable Moreira, Declan Admitting Unavailable Moreira, Declan Attending Unavailable Venegas, Kami Attending Unavailable Diomedes, Benson Primary Care Unavailable Venegas, Kami Admitting Unavailable VENEGAS, Kami R Attending Unavailable Galea, Sarah Ba Admitting Unavailable Galea, Sarah Ba Attending Unavailable Allergies Allergy Classification Reported Allergen(s) Allergy Type Date of Onset Reaction(s) Facility (20 sources) traMADol; Translations: [tramadol] Drug Allergy 8 [facility] (1 source) patient allergy list reviewed by nurse or physicia Propensity to adverse reactions 8 Comment:Done Linkedwith Other (3 sources) No Known Medication Allergies; Translations: [No Known Medication Allergies] Propensity to adverse reactions (disorder) [facility] Repository (1 source) rOPINIRole; Translations: [ROPINIROLE] Drug Allergy 2 [facility] Repository Medications Current Medications Medication Drug Class(es) Dates Sig (Normalized) Sig (Original) acetaminophen 325 mg / HYDROcodone bitartrate 5 mg oral tablet (20 sources) Opioid Agonist Start: 08-05-2023 End: 05-04-2024 take 1 tablet by mouth every eight hours as needed for pain Hydrocodone-Aceta minophen 5-325 mg tablet Active 1 TAB PO Q8H as needed for Pain 60 May 04, 2024 start 05/04 Start: 05-28-2023 take 1 tablet by kristina [...] kristina th every eight hours for pain Rolette 325 mg-5 mg oral tablet 1 tab(s), Oral, q8hr for pain, 15 tab(s), Refill(s) 0, [facility] Start Date: 03/03/20 Status: Ordered Start: 02-25-2020 take 1 tablet by kristina th once Rolette 325 mg-5 mg oral tablet 1 tab(s), Oral, Once, 1 tab(s), Refill(s) 0, Take 30 minutes prior to procedure, [facility] Start Date: 02/25/20 Status: Ordered Start: 12-01-2017 End: 12-30-2017 take 1 tablet by mouth every eight hours as needed for pain Hydrocodone-Acetaminophen 10-325 mg tabl et Discontinued 1 TAB PO Q8H as needed for Pain November 30, 2017 11:00pm December 30, 2017 8:09pm take 1 tablet by kristina th every six hours as needed HYDROcodone-acetaminophen (NORCO) 5-325 mg per tablet Take 1 tablet by mouth every 6 (six) hours as needed. Active 120 actuat albuterol 0.1 mg/actuat / ipratropium bromide 0.02 mg/actuat inhalation spray (19 sources) Anticholinergic, beta2-Adrenergic Agonist Start: 07-30-2022 amoxicillin 875 mg / clavulanate 125 mg oral tablet (2 sources) Penicillin-class Antibacterial Start: 04-01-2024 End: 04-08-2024 take 1 tablet by mouth every twelve hours Augmentin 875 mg oral tablet = 1 tab(s), Oral, q12hr, X 7 day(s), # 14 tab(s), Refills(s) 0, Pharmacy: [id number] Start Date: 04/01/24 Stop Date: 04/08/24 Status: Ordered apixaban 2.5 mg oral tablet (13 sources) Factor Xa Inhibitor Start: 08-05-2023 take 1 tablet by mouth in the morning, then take 1 tablet by mouth at bedtime ELIQUIS 2.5 mg tablet Take 1 tablet (2.5 mg total) by mouth in the morning and 1 tablet (2.5 mg total) before bedtime. 12/26/2023 Active aspirin 81 mg chewable tablet (20 sources) Platelet Aggregation Inhibitor, Nonsteroidal Anti-inflammatory Drug Start: 05-24-2020 aspirin 81 mg Chew Tab Start Date: 05/24/20 Status: Ordered Start: 12-01-2017 End: 10-08-2023 Aspirin (Domingo Low Dose Aspi rin) 81 mg Tablet,Delayed Release (Dr/Ec) Discontinued 81 MG PO Daily November 30, 2017 11:00pm October 08, 2023 5:57pm take 1 tablet by kristina th once daily Aspirin 81 81 MG 1 tablet Orally Once a day Active atorvastatin 40 mg oral tablet (20 sources) HMG-CoA Reductase Inhibitor Start: 06-04-2024 take 1 tablet by mouth once daily in the evening Atorvastatin 40 mg tablet Active 0 .ROUTE .COMPLEX 90 June 04, 2024 7:21am TAKE 1 TABLET BY MOUTH DAILY IN THE EVENING Start: 09-30-2023 End: 06-04-2024 take 1 tablet by mouth once daily Atorvastatin 40 mg tablet Discontinued 40 MG PO Daily September 30, 2023 12:00am June 04, 2024 7:21am Start: 12-01-2017 End: 09-30-2023 take 4 tablets by mouth once daily Atorvastatin 10 mg tablet Discontinued 40 MG PO Daily September 26, 2023 3:25pm September 30, 2023 10:38am Start: 12-01-2017 End: 09-30-2023 take 40 mg by mouth once daily Atorvastatin Discontinu ed 40 MG PO Daily September 26, 2023 4:25pm March 5th, 2024 11:38am Start: 12-01-2017 take 10 mg by mouth once daily Atorvastatin Active 10 MG PO Daily November 30, 2017 11:00pm bumetanide 0.5 mg oral tablet (1 source) Loop Diuretic Start: 06-07-2024 take 1 tablet by mouth once daily Bumetanide 0.5 mg tablet Active 0.5 MG PO Daily 11 29June 07, 2024 12:00am carvedilol 12.5 mg oral tablet (20 sources) alpha-Adrenergic Jordy, beta-Adrenergic Jordy Start: 05-24-2020 carvedilol 12.5 mg Tab Start Date: 05/24/20 Status: Ordered Start: 12-01-2017 End: 08-05-2023 take 1 tablet by mouth twice daily Carvedilol 3.125 mg Tablet Discontinued 3.125 MG PO Twice daily November 30, 2017 11:00pm August 05, 2023 2:28am Centrum Silver - (4 sources) Centrum Silver - as directed Orally Active cephalexin 500 mg oral capsule (20 sources) Cephalosporin Antibacterial Start: 3 take 1 capsule by mouth every twelve hours Keflex 500 mg Cap 500 mg = 1 cap(s), Oral, q12hr, # 20 cap(s), Refills(s) 0, Pharmacy: [id number] Start Date: 10/21/22 Status: Ordered Start: 06-19-2022 End: 06-26-2022 take 1 capsule by mouth every twelve hours Keflex 500 mg Cap 500 mg = 1 cap(s), Oral, q12hr, X 7 day(s), # 14 cap(s), Refills(s) 0, Pharmacy: [facility] #[id number] Start Date: 06/19/22 Stop Date: 06/26/22 Status: Ordered Start: 04-14-2020 take 1 capsule by [facility] twice daily Keflex 500 mg Cap 500 mg = 1 cap(s), Oral, BID, # 14 cap(s), Refills(s) 0, Pharmacy: [id number] [facility] Start Date: 04/14/20 Status: Ordered clopidogrel 75 mg oral tablet (20 sources) P2Y12 Platelet Inhibitor Start: 12-01-2017 End: 08-05-2023 Plavix 75 mg Tab Start Date: 05/24/20 Status: Ordered ferrous sulfate 324 mg delayed release oral tablet (20 sources) Start: 09-30-2023 take 1 tablet by mouth once daily Ferrous Sulfate 324 mg (65 mg iron) tablet,delayed release (DR/EC) Active 324 MG PO Daily September 30, 2023 12:00am Start: 09-26-2023 End: 09-30-2023 take 65 mg [...] 2023 12:00am take 1 tablet by kristina th once daily at breakfast ferrous sulfate 325 (65 FE) mg tablet Take 1 tablet (325 mg total) by mouth daily with breakfast. Active take 1 tablet by kristina th every twenty-four hours Ferrous Sulfate 325 (65 Fe) MG 1 tablet Orally Once a day Active take 1 tablet by kristina th once daily Ferrous Sulfate 325 (65 Fe) MG 1 tablet Orally Once a day Active hydrALAZINE hydrochloride 25 mg oral tablet (20 sources) Arteriolar Vasodilator Start: 12-26-2023 take 1 tablet by mouth at bedtime hydrALAZINE (APRESOLINE) 25 mg tablet Take 1 tablet (25 mg total) by mouth in the morning and at bedtime. 12/26/2023 Active Start: 08-05-2023 End: 10-08-2023 take 1 tablet by mouth twice daily Hydralazine 25 mg tablet Active 25 MG PO Twice daily September 30, 2023 12:00am take 1 tablet by kristina th every six hours hydrALAZINE HCl 10 MG 1 tablet with food Orally Four times a day Active 24 hr isosorbide mononitrate 60 mg extended release oral tablet (20 sources) Nitrate Vasodilator Start: 05-19-2024 take 1 tablet by mouth once daily in the morning, then take 1 tablet by mouth every twenty-four hours Isosorbide Mononitrate 60 mg tablet extended release 24 hr Active 60 MG PO Every morning 90 90 May 19, 2024 7:09pm Start: 05-19-2024 End: 06-18-2024 take 2 tablets by mouth once daily isosorbide mononitrate (IMDUR) 30 mg 24 hr tablet Take 2 tablets (60 mg total) by mouth daily. 05/19/2024 06/18/2024 Active Start: 08-05-2023 End: 05-19-2024 take 1 tablet by mouth once daily in the morning, then take 1 tablet by mouth every twenty-four hours Isosorbide Mononitrate 30 mg tablet extended release 24 hr Discontinued 30 MG PO Every morning August 05, 2023 12:00am May 19, 2024 7:09pm lisinopril 5 mg oral tablet (20 sources) Angiotensin Converting Enzyme Inhibitor Start: 07-04-2024 take 1 tablet by mouth in the morning lisinopriL (PRINIVIL,ZESTRIL) 5 mg tablet Take 1 tablet (5 mg total) by mouth in the morning. 30 tablet 07/04/2024 Active Start: 07-04-2024 take 1 tablet by kristina th in the morning lisinopriL (PRINIVIL,ZESTRIL) 5 mg tablet Take 1 tablet (5 mg total) by mouth in the morning. 30 tablet 07/04/2024 Active Start: 11-28-2023 End: 06-09-2024 take 1 tablet by mouth twice daily Lisinopril 5 mg tablet Discontinued 5 MG PO Twice daily 180 90 November 27, 2023 11:00pm June 09, 2024 8:37am Start: 05-24-2020 lisinopril 10 mg Tab Start Date: 05/24/20 Status: Ordered Start: 12-01-2017 End: 09-30-2023 take 2 tablets by mouth at bedtime Lisinopril 2.5 mg tablet Discontinued 5 MG PO Bedtime September 26, 2023 3:26pm September 30, 2023 10:42am Start: 12-01-2017 End: 09-30-2023 take 5 mg by mouth at bedtime Lisinopril Discontinued 5 MG PO Bedtime September 26, 2023 4:26pm September 30, 2023 11:42am Start: 12-01-2017 take 2.5 mg by mouth at bedtime Lisinopril Active 2.5 MG PO Bedtime November 30, 2017 11:00pm Lisinopril 5 MG TAKE 1 TABLET DAILY Active magnesium oxide 400 mg oral tablet (20 sources) Start: 08-05-2023 take 1 tablet by mouth once daily Magnesium Oxide 400 mg (241.3 mg magnesium) tablet Active 400 MG PO Daily August 05, 2023 12:00am Stastftlfrxi-Lngfmzzm-U utein (Centrum Silver) Tablet (6 sources) Start: 08-05-2023 take 1 tablet by mouth once daily Gdszobacbeyi-Hkykulot-X utein (Centrum Silver) Tablet Active 1 TAB PO Daily August 05, 2023 1:00am Start: 08-05-2023 take 1 tablet by kristina th once daily Ycyfofkridzd-Cpvpuqfk-Jeflgq (Centrum Silver) Tablet Active 1 TAB PO [...] BID, # 180 tab(s), Refills(s) 3, Pharmacy: [facility] Start Date: 07/10/20 Status: Ordered spironolactone 25 mg oral tablet (20 sources) Aldosterone Antagonist Start: 024 take 1 tablet by mouth once daily Spironolactone 25 mg tablet Active 25 MG PO Daily April 01, 2024 11:00pm Start: 08-05-2023 End: 09-30-2023 take 1 tablet by mouth once daily Spironolactone 25 mg tablet Discontinued 25 MG PO Daily August 05, 2023 12:00am September 30, 2023 10:43am sulfamethoxazole 800 mg / trimethoprim 160 mg oral tablet (17 sources) Dihydrofolate Reductase Inhibitor Antibacterial, Sulfonamide Antimicrobial Start: 06-17-2024 End: 06-24-2024 Bactrim D.S. 800 mg-160 mg Tab 1 tab(s), Oral, BID for 7 day(s), 14 tab(s), Refill(s) 0, [id number] Start Date: 06/17/24 Stop Date: 06/24/24 Status: Ordered Start: 11-04-2022 End: 11-14-2022 Bactrim 400 mg-80 mg Tab 80 mg, Oral, q12hr for 10 day(s), 20 tab(s), Refill(s) 0, [facility] #[id number] Start Date: 11/04/22 Stop Date: 11/14/22 Status: Ordered Start: 06-11-2021 Bactrim DS 800 mg-160 mg Tab 160 mg, Oral, q12hr, 14 tab(s), Refill(s) 0, [facility] Start Date: 06/11/21 Status: Ordered Start: 12-01-2017 End: 12-01-2017 Sulfamethoxazole-Trimethopri m 800-160 mg tablet Discontinued TABLET November 30, 2017 11:00pm December 01, 2017 7:44am tamsulosin hydrochloride 0.4 mg oral capsule (6 sources) alpha-Adrenergic Jordy Start: 12-27-2022 take 1 capsule by mouth twice daily tamsulosin 0.4 mg Cap 0.4 mg = 1 cap(s), Oral, BID, # 30 cap(s), Refills(s) 0, Pharmacy: [facility] #[id number] Start Date: 12/27/22 Status: Ordered Completed/Discontinued Medications Medication Drug Class(es) Dates Sig (Normalized) Sig (Original) ciprofloxacin 500 mg oral tablet (18 sources) Quinolone Antimicrobial Start: 01-20-2024 take 1 tablet by mouth once daily Cipro 500 mg Tab 500 mg = 1 tab(s), Oral, Daily, Take 1 tablet the day before the procedure and 1 tablet after the procedure, # 2 tab(s), Refills(s) 0, Pharmacy: [facility] #[id number] Start Date: 01/20/24 Status: Ordered Start: 04-04-2022 take 1 tablet by kristina th once daily Cipro 500 mg Tab 500 mg = 1 tab(s), Oral, Daily, Take 1 tablet the day before the procedure and 1 tablet after the procedure, # 2 tab(s), Refills(s) 0, Pharmacy: [facility] #[id number] Start Date: 11/26/22 Status: Ordered Start: 10-30-2021 take 1 tablet by krsitina once daily Cipro 500 mg Tab 500 mg = 1 tab(s), Oral, Daily, Take 1 tablet the day before the procedure and 1 tablet after the procedure, # 2 tab(s), Refills(s) 0, Pharmacy: [address] Start Date: 10/30/21 Status: Ordered Ferrous Sulfate 28 mg iron Tablet (1 source) Start: 08-05-2023 End: 09-26-2023 Ferrous Sulfate 28 mg iron Tablet Discontinued 65 MG PO Daily August 05, 2023 12:00am September 26, 2023 3:27pm Ferrous Sulfate 28 mg iron tablet (1 source) Start: 09-26-2023 End: 09-30-2023 Ferrous Sulfate 28 mg iron tablet Discontinued 65 MG PO Daily September 26, 2023 3:25pm September 30, 2023 10:42am hyoscyamine sulfate 0.125 mg sublingual tablet (11 sources) Start: 12-01-2017 End: 12-30-2017 take 2 tablets under the tongue three times daily Hyoscyamine Sulfate 0.125 mg Tablet, Sublingual Discontinued 0.25 MG SUBLINGUAL Three times daily November 30, 2017 11:00pm December 30, 2017 8:09pm Start: 12-01-2017 End: 12-30-2017 take 0.25 mg under the tongue three times daily Hyoscyamine Sulfate Discontinued 0.25 MG SUBLINGUAL Three times daily December 01, 2017 12:00am December 30, 2017 9:09pm hyoscyamine sulfate 0.12 mg / methenamine 118 mg / methylene blue 10 mg / phenyl salicylate 36 mg / sodium phosphate, monobasic 40.8 mg oral capsule (11 sources) Oxidation-Reduction Agent Start: 12-01-2017 End: 12-30-2017 take 1 tablet by mouth four times daily Methen-M.Blue-S.Qxtk-Tbkrt-Pft (Uribel) 118-10-40.8-36 mg Capsule Discontinued 1 TAB PO Four times daily November 30, 2017 11:00pm December 30, 2017 8:08pm mupirocin 0.02 mg/mg topical ointment (14 sources) RNA Synthetase Inhibitor Antibacterial Start: 12-31-2023 End: 04-02-2024 Mupirocin 2 % ointment Discontinued 1 APPLIC TOPICAL Twice daily 18 05December 30, 2023 11:00pm April 02, 2024 9:05am Start: 01-23-2023 Mupirocin 2 % 1 application Externally Twice a day for 14 days Dec, Not-Taking/PRN potassium phosphate 155 mg / sodium phosphate, dibasic 852 mg / sodium phosphate, monobasic 130 mg oral tablet (11 sources) Start: 12-01-2017 End: 12-30-2017 take 2 tablets by mouth twice daily Sod Phos Di, Twiggs-K Phos Twiggs (Phospha 250 Neutral) 250 mg Tablet Discontinued 2 TAB PO Twice daily November 30, 2017 11:00pm December 30, 2017 8:09pm Problems Active Problems Problem Classification Problem Date Documented Da te Episodic/Chronic Alcohol-related disorders (1 source) Alcohol dependence, in remission; Translations: [ALCOHOL DEPENDENCE IN REMISSION] Onset: 2 Chronic Cancer of bladder (19 sources) Malignant neoplasm, overlapping lesion of bladder; [...] 3 Episodic Cancer; other and unspecified primary (17 sources) History of bladder neoplasm 02-04-2019 Episodic Cardiac dysrhythmias (20 sources) Paroxysmal atrial fibrillation; Translations: [Paroxysmal atrial fibrillation] Onset: 3 Chronic Cardiac dysrhythmias (1 source) Bradycardia, unspecified Episodic Chronic kidney disease (19 sources) Chronic kidney disease stage 3; Translations: [Chronic kidney disease, stage 3 unspecified] Onset: 8 Chronic Chronic kidney disease (4 sources) Chronic kidney disease; Translations: [CHRONIC KIDNEY DISEASE STAGE 3B] Onset: 3 Chronic obstructive pulmonary disease and bronchiectasis (20 sources) Mucopurulent chronic bronchitis; Translations: [Mucopurulent chronic bronchitis] Chronic Complication of device; implant or graft (6 sources) Obstruction of urinary stent; Translations: [Other [...] Coronary arteriosclerosis; Translations: [Atherosclerotic heart disease of [place] coronary artery without angina pectoris] Onset: 8 02-04-2019 Chronic Comment on above: NM stress test: LVEF 34%, fixed defect inferolateral wall - 04/2024 Coronary atherosclerosis and other heart disease (1 source) Presence of aortocoronary bypass graft; Translations: [PRESENCE AORTOCORONARY BYPASS GRAFT] Onset: 3 Episodic Deficiency and other anemia (1 source) Anemia due to chronic blood loss; Translations: [Iron deficiency anemia secondary to blood loss (chronic)] Onset: 8 Chronic Diabetes mellitus without complication (18 sources) Type 1 diabetes mellitus; Translations: [Type 2 diabetes mellitus without complications] Onset: 3 02-04-2019 Chronic Diabetes mellitus without complication (20 sources) Impaired fasting glycemia; Translations: [Impaired fasting glucose] Episodic Disorders of lipid metabolism (20 sources) Pure hypercholesterolemia; Translations: [Familial hypercholesterolemia] Onset: 8 Chronic Essential hypertension (20 sources) Hypertensive disorder; Translations: [Essential hypertension] Onset: 3 02-04-2019 Chronic Gastrointestinal hemorrhage (5 sources) Melena; Translations: [Gastrointestinal hemorrhage] Onset: 4 05-26-2024 Episodic Genitourinary symptoms and ill-defined conditions (1 source) [...] vomiting (19 sources) Nausea; Translations: [Nausea] Episodic Nonspecific chest pain (2 sources) Chest pain, unspecified; Translations: [Chest pain, unspecified] Onset: 4 Episodic Occlusion or stenosis of precerebral arteries (20 sources) Left carotid artery occlusion; Translations: [Occlusion and stenosis of left carotid artery] Onset: 8 Chronic Osteoarthritis (1 source) Unspecified osteoarthritis, unspecified site; Translations: [UNSPECIFIED OSTEOARTHRITIS UNS SITE] Onset: 2 Chronic Other aftercare (4 sources) Drug therapy finding; Translations: [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] 12-29-2023 Episodic Other aftercare (4 sources) 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; Translations: [Long-term (current) use of other medications] 12-31-2023 Episodic Other diseases of kidney and ureters (17 sources) Hydronephrosis 02-04-2019 Episodic Other diseases of [...] and due to atherosclerosis; Translations: [Atherosclerosis of [place] arteries of extremities with intermittent claudication, bilateral legs] Chronic Residual codes; unclassified (1 source) Pain, unspecified; Translations: [Pain, unspecified] Onset: 4 Episodic Screening and history of mental health and substance abuse codes (19 sources) Ex-smoker; Translations: [Personal history of nicotine [...] wall of thorax, subsequent encounter] Episodic Unclassified (17 sources) Drug therapy finding 02-04-2019 Unclassified (2 sources) Obstructed nephrostomy tube Onset: 4 Urinary tract infections (17 sources) Acute urinary tract infection; Translations: [Urinary [...] 04/13/2020 ESBL E coli in urine 06/19/2022 Mood disorders (3 sources) Mood disorders Onset: 05-26-2024 05-26-2024 Neoplasms of unspecified nature or uncertain behavior (1 source) 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; Translations: [Neoplasm of uncertain behavior of liver, gallbladder and bile ducts] Onset: 09-22-2017 Episodic Open wounds of extremities (1 source) Open wound of forearm with complication; Translations: [Laceration with foreign body of right forearm, initial encounter] Onset: 05-01-2018 Episodic Other aftercare (1 source) long-term (current) use of aspirin; Translations: [PRISON CURRENT USE OF ASPIRIN] Onset: 05-01-2022 Episodic Other aftercare (1 source) long-term (current) use of antithrombotics/anti platelets; Translations: [PRISON ANTITHROMBOT/ANTIPLA TLETS] Onset: 05-01-2022 Episodic Other aftercare (1 source) Other group home (current) drug therapy; Translations: [OTH PRISON CURRENT DRUG THERAPY] Onset: 05-01-2022 Episodic Other [...] Test Name Value Interpretation Reference Range Facility IR nephrostomy tube chg UNon 06-14-2024 IR [place]rost[place] [address] Interventional Radiology Rpt Signed Patient: Mykel Olivera MR#: [id number] : 1940 Acct:[id number] Age/Sex: 84 / M ADM Date: 06/14/24 Loc: IR Room: Type: [facility] Attending Dr: Kami Venegas MD Copies to: Kami Venegas MD Ordering Provider: Kami Venegas MD Date of Service: 06/14/24 IR/IR nephrostomy tube chg UN: RIGHT NEPHROSTOMY TUBE EXCHANGE Interventional radiology nephrostomy tube exchange History: Right nephrostomy tube exchange. 3 Images were obtained Cumulative Air Kerma in mGy: 12.1 mGy Technique existing right percutaneous nephrostomy tube was removed. A wire was advanced into the collecting system. A 12 Haitian tube was administered into the renal collecting system with wire guidance. Pigtail catheter locked. Tube secured to skin. Adequate position confirmed with contrast administration. No immediate complications. Patient discharged in satisfactory condition. IR/IR nephrostomy tube chg UN IMPRESSION: Successful replacement of right percutaneous nephrostomy tube Impression dictated by: Declan Moreira M.D.06/14/2024 12:45 PM Dictation Location: [place] [address] Transcribed By: [facility] 06/14/24 1245 Dictated By: Declan Moreira DO 06/14/24 1238 Signed By: 06/14/24 1245 Normal [facility] Follow-Upon 06-09-2024 Follow-Up [id number] Mykel Olivera 1940 M Date Provider Department [place] 06/09/2024 Reji-EMANUEL GREGG CARD [facility] No family history on file Level of Service:[address] [place] OFFICE/OUTPATIENT ESTABLISHED MOD MDM 30 MIN Normal [facility] CBC AND AUTO DIFFon 06-04-20 ABSOLUTE BASOPHIL 0.0 X10E9/L Normal 0.0-0.2 [facility] Comment on above: Performed By: #### C JIN CMP, 1833-, 61982-0, FEPR, 2276-4, 4-8, 2132-03, TSHR #### [facility] ([id number]) [address], [address] [place] [address] ABSOLUTE NEUTROPHIL 7.7 X10E9/L High 1.5-6.6 [facility] Comment on above: Performed By: #### C BCA, CMP, 1834-, 55043-2, FEPR, 2276-4, 2284-8, 2131-9, TSHR #### [facility] ([id number]) [address] [facility] [facility] [address], [address] [place] [address] Basophils/100 WBC (Bld) 0.3 % Normal [facility] Comment on above: Performed By: #### C BCA, CMP, 1833-, 14792-0, FEPR, 2276-4, 2284-8, 2132-03, TSHR #### [facility] ([id number]) [address], [address] [place] [address] Eosinophils (Bld) [#/Vol] 0.1 10*3/uL Normal 0.0-0.4 [facility] Comment on above: Performed By: #### C BCA, CMP, 1833-, , FEPR, 2276-4, 2283-8, 2132-03, TSHR #### [facility] ([id number]) [address], [address] [place] [address] Eosinophils/100 WBC (Bld) 1.3 % Normal [facility] Comment on above: Performed By: #### C BCA, CMP, 1833-07, , FEPR, 2276-4, 2283-8, 2132-03, TSHR #### [facility] ([id number]) [address], [address] [place] [address] Erythrocyte distribution width (RBC) [Ratio] 15.3 % High 11.5-15.0 [facility] Comment on above: Performed By: #### C BCA, CMP, 1833-07, , FEPR, 2276-4, 2283-8, 2132-03, TSHR #### [facility] ([id number]) [address], [address] [place] [address] Hematocrit (Bld) [Volume fraction] 24.1 % Low 39-49 [facility] Comment on above: Performed By: #### C BCA, CMP, 1833-, 26312-3, FEPR, 2276-4, 2284-8, 2131-9, TSHR #### [facility] ([id number]) [address], [address] [place] [address] Hemoglobin (Bld) [Mass/Vol] 8.4 g/dL Low 13.0-17.0 [facility] Comment on above: Performed By: #### C BCA, CMP, 1833-, 52093-5, FEPR, 2276-4, 2284-8, 2131-9, TSHR #### [facility] ([id number]) [address], [address] [place] [address] Lymphocytes (Bld) [#/Vol] 0.4 10*3/uL Low 1.0-3.5 [facility] Comment on above: Performed By: #### C BCA, CMP, 1833-, , FEPR, 2276-4, 2284-8, 2131-9, TSHR #### [facility] ([id number]) [address], [address] [place] [address] Lymphocytes/100 WBC (Bld) 4.1 % Normal [facility] Comment on above: Performed By: #### C BCA, CMP, 1833-07, , FEPR, 2276-4, 2284-8, 2132-03, TSHR #### [facility] ([id number]) [address], [address] [place] [address] MCH (RBC) [Entitic mass] 31.9 pg Normal 27-34 [facility] Comment on above: Performed By: #### C BCA, CMP, 1833-, 84319-7, FEPR, 2276-4, 2284-8, 2131-9, TSHR #### [facility] ([id number]) [address], [address] [place] [address] MCHC (RBC) [Mass/Vol] 34.9 g/dL Normal 32-36 [facility] Comment on above: Performed By: #### C BCA, CMP, 1833-, 43790-8, FEPR, 2276-4, 2284-8, 2131-9, TSHR #### [facility] ([id number]) [address], [address] [place] [address] MCV (RBC) [Entitic vol] 91 fL Normal 80-100 [facility] Comment on above: Performed By: #### C BCA, CMP, 1833-, 61288-3, FEPR, 2276-4, 2284-8, 2131-9, TSHR #### [facility] ([id number]) [address], [address] [place] [address] Monocytes (Bld) [#/Vol] 1.1 10*3/uL High 0-0.9 [facility] Comment on above: Performed By: #### C BCA, CMP, 1833-, , FEPR, 6-4, 2283-8, 2132-03, TSHR #### [facility] ([id number]) [address], [address] [place] [address] Monocytes/100 WBC (Bld) 11.6 % Normal [facility] Comment on above: Performed By: #### C BCA, CMP, 1833-, , FEPR, 2276-4, 4-8, 2131-9, TSHR #### [facility] ([id number]) [address], [address] [place] [address] Neutrophils/100 WBC (Bld) 82.7 % Normal [facility] Comment on above: Performed By: #### C BCA, CMP, 1833-, , FEPR, 2276-4, 4-8, 2131-9, TSHR #### [facility] ([id number]) [address], [address] [place] [address] Platelet mean volume (Bld) [Entitic vol] 7.5 fL Normal 7-12 [facility] Comment on above: Performed By: #### C BCA, CMP, 4-1, 73076-2, FEPR, 2276-4, 2284-8, 2131-9, TSHR #### [facility] ([id number]) [address], [address] [place] [address] Platelets (Bld) [#/Vol] 199 10*3/uL Normal 150-450 [facility] Comment on above: Performed By: #### C BCA, CMP, 1833-, 77826-1, FEPR, 2276-4, 2284-8, 2131-9, TSHR #### [facility] ([id number]) [address], [address] [place] [address] POLYCHROMASIA 1+ Abnormal NONE [facility] Comment on above: Performed By: #### C BCA, CMP, 1833-, 02454-9, FEPR, 2276-4, 2284-8, 2131-9, TSHR #### [facility] ([id number]) [address], [address] [place] [address] RBC COUNT 2.64 X10E12/L Low 4.10-5.70 [facility] Comment on above: Performed By: #### C BCA, CMP, 1833-, 75774-1, FEPR, 2276-4, 2284-8, 2131-9, TSHR #### [facility] ([id number]) [address], [address] [place] [address] WBC (Bld) [#/Vol] 9.4 10*3/uL Normal 4.0-11.0 [facility] Comment on above: Performed By: #### C BCA, CMP, 1833-, 35160-9, FEPR, 2276-4, 2284-8, 2-9, TSHR #### [facility] ([id number]) [address], [address] [place] [address] COMPREHENSIVE METABOLIC PANE Zoran 11-08-2024 Albumin [Mass/Vol] 2.7 g/dL Low 3.2-5.3 [facility] Comment on above: Performed By: #### C BCA, CMP, 1834-1, 48268-6, FEPR, 2276-4, 2284-8, 2132-9, TSHR #### [facility] ([id number]) [address], [address] [place] [address] ALP [Catalytic activity/Vol] 279 U/L High 39-130 [facility] Comment on above: Performed By: #### C BCA, CMP, 1834-1, 65328-8, FEPR, 2276-4, 2284-8, 2131-9, TSHR #### [facility] ([id number]) [address], [address] [place] [address] ALT [Catalytic activity/Vol] 72 U/L High 0-40 [facility] Comment on above: Performed By: #### C BCA, CMP, 1834-1, 60531-8, FEPR, 2276-4, 2284-8, 2131-9, TSHR #### [facility] ([id number]) [address], [address] [place] [address] Anion gap [Moles/Vol] 9 mmol/L Normal 5-15 [facility] Comment on above: Performed By: #### C BCA, CMP, 1834-1, 67639-3, FEPR, 2276-4, 2284-8, 2131-9, TSHR #### [facility] ([id number]) [address], [address] [place] [address] AST [Catalytic activity/Vol] 91 U/L High 0-41 [facility] Comment on above: Performed By: #### C BCA, CMP, 1834-1, 75302-5, FEPR, 2276-4, 2284-8, 2132-9, TSHR #### [facility] ([id number]) [address], [address] [place] [address] Bilirubin [Mass/Vol] 1.8 mg/dL High 0.3-1.2 [facility] Comment on above: Performed By: #### C BCA, CMP, 1833-1, 94751-7, FEPR, 2276-4, 2284-8, 2131-9, TSHR #### [facility] ([id number]) [address], [address] [place] [address] Calcium [Mass/Vol] 8.8 mg/dL Normal 8.5-10.5 [facility] Comment on above: Performed By: #### C BCA, CMP, 1833-, , FEPR, 2276-4, 2284-8, 9, TSHR #### [facility] ([id number]) [address], [address] [place] [address] Chloride [Moles/Vol] 92 mmol/L Low 98-109 [facility] Comment on above: Performed By: #### C BCA, CMP, 1833-07, , FEPR, 2276-4, 2284-8, 2132-03, TSHR #### [facility] ([id number]) [address], [address] [place] [address] CO2 [Moles/Vol] 28 mmol/L Normal 22-32 [facility] Comment on above: Performed By: #### C BCA, CMP, 1833-, , FEPR, 2276-4, 2284-8, 2131-9, TSHR #### [facility] ([id number]) [address], [address] [place] [address] Creatinine [Mass/Vol] 1.60 mg/dL High 0.60-1.30 [facility] Comment on above: Result Comment: METH OD TRACEABLE TO IDMS STANDARD Performed By: #### C BCA, CMP, 1833-07, 55753-6, FEPR, 2276-4, 2284-8, 9, TSHR #### [facility] ([id number]) [address] [address] GFR/1.73 sq M.predicted among non-blacks MDRD (S/P/Bld) [Vol rate/Area] 43 mL/min/{1.73_m2} Low >59 [facility] Comment on above: Result Comment: Reported eGFR is based on the CKD-EPI 2020 equation that does not use a race coefficient. Performed By: #### C BCA, CMP, 1833-07, , FEPR, 2276-4, 2284-8, 2132-03, TSHR #### [facility] ([id number]) [address] [address] Glucose [Mass/Vol] 94 mg/dL Normal 65-99 [facility] Comment on above: Performed By: #### C BCA, CMP, 1833-07, , FEPR, 2276-4, 2284-8, 2132-03, TSHR #### [facility] ([id number]) [address] [address] Potassium [Moles/Vol] 3.9 mmol/L Normal 3.5-5.0 [facility] Comment on above: Performed By: #### C BCA, CMP, 1833-07, 29910-2, FEPR, 2276-4, 2284-8, 9, TSHR #### [facility] ([id number]) [address] [address] Protein [Mass/Vol] 6.0 g/dL Normal 6.0-8.0 [facility] Comment on above: Performed By: #### C BCA, CMP, 1833-, 86683-3, FEPR, 2276-4, 2284-8, 9, TSHR #### [facility] ([id number]) [address], [address] [place] [address] Sodium [Moles/Vol] 129 mmol/L Low 134-146 [facility] Comment on above: Performed By: #### C BCA, CMP, 1833-, 69980-6, FEPR, 6-4, 2283-8, 2132-03, TSHR #### [facility] ([id number]) [address], [address] [place] [address] Urea nitrogen [Mass/Vol] 34 mg/dL High 5-27 [facility] Comment on above: Performed By: #### C BCA, CMP, 1833-, , FEPR, 6-4, 2283-8, 2132-03, TSHR #### [facility] ([id number]) [address], [address] [place] [address] MAGNESIUMon 06-04-2024 Magnesium [Mass/Vol] 2.0 mg/dL Normal 1.8-2.6 [facility] Comment on above: Performed By: #### C BCA, CMP, 1833-07, , FEPR, 2275-4, 8, 2132-03, TSHR #### [facility] ([id number]) [address], [address] [place] [address] CBC AND AUTO DIFFon 06-03-20 24 ABSOLUTE BASOPHIL 0.1 X10E9/L Normal 0.0-0.2 [facility] Comment on above: Performed By: #### C BCA, CMP, 1833-, , FEPR, 6-4, 2283-8, 2132-03, TSHR #### [facility] ([id number]) [address], [address] [place] [address] ABSOLUTE NEUTROPHIL 6.2 X10E9/L Normal 1.5-6.6 [facility] Comment on above: Performed By: #### C BCA, CMP, 1833-, 14871-0, FEPR, 2276-4, 2283-8, 2132-03, TSHR #### [facility] ([id number]) [address], [address] [place] [address] Basophils/100 WBC (Bld) 0.9 % Normal [facility] Comment on above: Performed By: #### C BCA, CMP, 1833-, , FEPR, 2276-4, 4-8, 2132-03, TSHR #### [facility] ([id number]) [address], [address] [place] [address] Eosinophils (Bld) [#/Vol] 0.2 10*3/uL Normal 0.0-0.4 [facility] Comment on above: Performed By: #### C BCA, CMP, 1833-07, , FEPR, 6-4, 2283-8, 2132-03, TSHR #### [facility] ([id number]) [address], [address] [place] [address] Eosinophils/100 WBC (Bld) 2.2 % Normal [facility] Comment on above: Performed By: #### C BCA, CMP, 1833-07, , FEPR, 6-4, 2283-8, 2132-03, TSHR #### [facility] ([id number]) [address], [address] [place] [address] Erythrocyte distribution width (RBC) [Ratio] 15.5 % High 11.5-15.0 [facility] Comment on above: Performed By: #### C BCA, CMP, 1833-, 87060-0, FEPR, 2276-4, 2283-8, 2132-03, TSHR #### [facility] ([id number]) [address], [address] [place] [address] Hematocrit (Bld) [Volume fraction] 20.6 % Low 39-49 [facility] Comment on above: Performed By: #### C BCA, CMP, 1833-, , FEPR, 2276-4, 2283-8, 2132-03, TSHR #### [facility] ([id number]) [address], [address] [place] [address] Hemoglobin (Bld) [Mass/Vol] 7.2 g/dL Low 13.0-17.0 [facility] Comment on above: Performed By: #### C BCA, CMP, 1833-07, , FEPR, 6-4, 2283-8, 2132-03, TSHR #### [facility] ([id number]) [address], [address] [place] [address] Lymphocytes (Bld) [#/Vol] 0.5 10*3/uL Low 1.0-3.5 [facility] Comment on above: Performed By: #### C BCA, CMP, 1833-07, , FEPR, 2275-4, 2283-8, 2132-03, TSHR #### [facility] ([id number]) [address], [address] [place] [address] Lymphocytes/100 WBC (Bld) 6.8 % Normal [facility] Comment on above: Performed By: #### C BCA, CMP, 1833-07, , FEPR, 2275-4, 2283-8, 2132-03, TSHR #### [facility] ([id number]) [address], [address] [place] [address] MCH (RBC) [Entitic mass] 32.0 pg Normal 27-34 [facility] Comment on above: Performed By: #### C BCA, CMP, 1833-07, , FEPR, 2276-4, 2283-8, 2132-03, TSHR #### [facility] ([id number]) [address], [address] [place] [address] MCHC (RBC) [Mass/Vol] 35.0 g/dL Normal 32-36 [facility] Comment on above: Performed By: #### C BCA, CMP, 1833-, 27100-8, FEPR, 2276-4, 2284-8, 2131-9, TSHR #### [facility] ([id number]) [address], [address] [place] [address] MCV (RBC) [Entitic vol] 92 fL Normal 80-100 [facility] Comment on above: Performed By: #### C BCA, CMP, 1833-, , FEPR, 2276-4, 2284-8, 2131-9, TSHR #### [facility] ([id number]) [address], [facility] [address] [place] [address] Monocytes (Bld) [#/Vol] 0.8 10*3/uL Normal 0-0.9 [facility] Comment on above: Performed By: #### C BCA, CMP, 1833-07, , FEPR, 6-4, 4-8, 2132-03, TSHR #### [facility] ([id number]) [address] [address] Monocytes/100 WBC (Bld) 10.6 % Normal [facility] Comment on above: Performed By: #### C BCA, CMP, 1833-, , FEPR, 2276-4, 2284-8, 2131-9, TSHR #### [facility] ([id number]) [address], [address] [place] [address] Neutrophils/100 WBC (Bld) 79.5 % Normal [facility] Comment on above: Performed By: #### C BCA, CMP, 1833-07, , FEPR, 2276-4, 2284-8, 2131-9, TSHR #### [facility] ([id number]) [address], [address] [place] [address] Platelet mean volume (Bld) [Entitic vol] 7.8 fL Normal 7-12 [facility] Comment on above: Performed By: #### C BCA, CMP, 4-1, 55041-2, FEPR, 2276-4, 2284-8, 2131-9, TSHR #### [facility] ([id number]) [address], [address] [address] Platelets (Bld) [#/Vol] 192 10*3/uL Normal 150-450 [facility] Comment on above: Performed By: #### C BCA, CMP, 1833-, 66078-0, FEPR, 2276-4, 2284-8, 2131-, TSHR #### [facility] ([id number]) [address], [address] [place] [address] RBC COUNT 2.25 X10E12/L Low 4.10-5.70 [facility] Comment on above: Performed By: #### C BCA, CMP, 4-1, 99880-4, FEPR, 2276-4, 2284-8, 2131-9, TSHR #### [facility] ([id number]) [address], [address] [place] [address] WBC (Bld) [#/Vol] 7.8 10*3/uL Normal 4.0-11.0 [facility] Comment on above: Performed By: #### C BCA, CMP, 4-1, 52534-0, FEPR, 2276-4, 2284-8, 2131-9, TSHR #### [facility] ([id number]) [address], [address] [place] [address] COMPREHENSIVE METABOLIC PANE Zoran 06-03-2024 Albumin [Mass/Vol] 2.4 g/dL Low 3.2-5.3 [facility] Comment on above: Performed By: #### C BCA, CMP, 1834-1, 86573-9, FEPR, 2276-4, 2284-8, 2131-9, TSHR #### [facility] ([id number]) [address], [address] [place] [address] ALP [Catalytic activity/Vol] 237 U/L High 39-130 [facility] Comment on above: Performed By: #### C BCA, CMP, 1833-, 05444-6, FEPR, 2276-4, 2284-8, 2131-9, TSHR #### [facility] ([id number]) [address], [address] [place] [address] ALT [Catalytic activity/Vol] 81 U/L High 0-40 [facility] Comment on above: Performed By: #### C BCA, CMP, 1833-, 12912-4, FEPR, 2276-4, 2284-8, 2131-9, TSHR #### [facility] ([id number]) [address], [address] [place] [address] Anion gap [Moles/Vol] 7 mmol/L Normal 5-15 [facility] Comment on above: Performed By: #### C BCA, CMP, 1833-, 52830-2, FEPR, 2276-4, 2284-8, 2131-9, TSHR #### [facility] ([id number]) [address], [address] [place] [address] AST [Catalytic activity/Vol] 99 U/L High 0-41 [facility] Comment on above: Performed By: #### C BCA, CMP, 1834-1, 87743-3, FEPR, 2276-4, 2284-8, 2131-9, TSHR #### [facility] ([id number]) [address], [address] [place] [address] Bilirubin [Mass/Vol] 1.5 mg/dL High 0.3-1.2 [facility] Comment on above: Performed By: #### C BCA, CMP, 1833-, 22511-1, FEPR, 2276-4, 2284-8, 9, TSHR #### [facility] ([id number]) [address], [address] [place] [address] Calcium [Mass/Vol] 8.3 mg/dL Low 8.5-10.5 [facility] Comment on above: Performed By: #### C BCA, CMP, 1833-07, , FEPR, 2276-4, 228-8, 2132-03, TSHR #### [facility] ([id number]) [address], [address] [place] [address] Chloride [Moles/Vol] 94 mmol/L Low 98-109 [facility] Comment on above: Performed By: #### C BCA, CMP, 1833-07, , FEPR, 2276-4, 228-8, 2132-03, TSHR #### [facility] ([id number]) [address], [address] [place] [address] CO2 [Moles/Vol] 28 mmol/L Normal 22-32 [facility] Comment on above: Performed By: #### C BCA, CMP, 1833-07, , FEPR, 2276-4, 2284-8, 2132-03, TSHR #### [facility] ([id number]) [address], [address] [place] [address] Creatinine [Mass/Vol] 1.59 mg/dL High 0.60-1.30 [facility] Comment on above: Result Comment: METH OD TRACEABLE TO IDMS STANDARD Performed By: #### C BCA, CMP, 1833-07, 27133-5, FEPR, 2276-4, 2284-8, 2132-03, TSHR #### [facility] ([id number]) [address] [address] [place] [address] GFR/1.73 sq M.predicted among non-blacks MDRD (S/P/Bld) [Vol rate/Area] 43 mL/min/{1.73_m2} Low >59 [facility] Comment on above: Result Comment: Reported eGFR is based on the CKD-EPI 2020 equation that does not use a race coefficient. Performed By: #### C BCA, CMP, 1833-, , FEPR, 6-4, 2283-8, 2132-03, TSHR #### [facility] ([id number]) [address] [place] [address] Glucose [Mass/Vol] 97 mg/dL Normal 65-99 [facility] Comment on above: Performed By: #### C BCA, CMP, 1833-07, , FEPR, 6-4, 2283-8, 2132-03, TSHR #### [facility] ([id number]) [address] [address] Potassium [Moles/Vol] 4.0 mmol/L Normal 3.5-5.0 [facility] Comment on above: Performed By: #### C BCA, CMP, 1833-07, , FEPR, 2276-4, 2283-8, 2132-03, TSHR #### [facility] ([id number]) [address] [address] [place] [address] Protein [Mass/Vol] 5.2 g/dL Low 6.0-8.0 [facility] Comment on above: Performed By: #### C BCA, CMP, 1833-, 91006-0, FEPR, 2276-4, 2284-8, 9, TSHR #### [facility] ([id number]) [address] [place] [address] Sodium [Moles/Vol] 129 mmol/L Low 134-146 [facility] Comment on above: Performed By: #### C BCA, CMP, 1833-, 43205-2, FEPR, 2276-4, 2284-8, 2132-03, TSHR #### [facility] ([id number]) [address], [address] [place] [address] Urea nitrogen [Mass/Vol] 37 mg/dL High 5-27 [facility] Comment on above: Performed By: #### C BCA, CMP, 1833-07, , FEPR, 2276-4, 4-8, 2132-03, TSHR #### [facility] ([id number]) [address] [place] [address] HGB AND HCTon 06-03-2024 Hematocrit (Bld) [Volume fraction] 22.2 % Low 39-49 [facility] Comment on above: Performed By: #### C BCA, CMP, 1833-07, , FEPR, 2276-4, 2283-8, 2132-03, TSHR #### [facility] ([id number]) [address], [address] [place] [address] Hemoglobin (Bld) [Mass/Vol] 7.7 g/dL Low 13.0-17.0 [facility] Comment on above: Performed By: #### C BCA, CMP, 1833-07, , FEPR, 2276-4, 2284-8, 2132-03, TSHR #### [facility] ([id number]) [address], [address] [place] [address] Hematocrit (Bld) [Volume fraction] 22.7 % Low 39-49 [facility] Comment on above: Performed By: #### C BCA, CMP, 1833-07, , FEPR, 2276-4, 2284-8, 9, TSHR #### [facility] ([id number]) [address], [address] [place] [address] Hemoglobin (Bld) [Mass/Vol] 7.8 g/dL Low 13.0-17.0 [facility] Comment on above: Performed By: #### C SAURABH ABDI, 1833-, 23066-0, FEPR, 6-4, 2283-8, 2132-03, TSHR #### [facility] ([id number]) [address], [address] [place] [address] IR PERCUTANEOUS BX LIVERon 1 08-03-2023 IR PERCUTANEOUS BX LIVER IR PERCUTANEOUS BX LIVER History: 84-year-old male with multiple hepatic masses Procedure: Ultrasound guided core biopsy of right hepatic mass Interventional radiologist: Dr. Bob Simmons Anesthesia: During the course of the procedure, the patient received local and IV pain control with 50 mcg Fentanyl IV while being monitored with ECG, blood pressure monitoring and pulse oximetry by appropriately trained personnel. Estimated blood loss: Minimal Findings and technique: Informed consent was obtained from the patient after discussion of procedure, risks and benefits. Final verification was performed. Limited ultrasound scanning was performed for localization of a right hepatic mass and an intercostal approach was selected. Skin was marked with ultrasound and then sterilely prepped and draped. Local anesthesia with 1% lidocaine. Using ultrasound guidance, a 17 gauge introducer was advanced to the mass and through this, 4 passes with an 18 gauge core biopsy device were performed. Specimens were placed in formalin. Patient tolerated the procedure well. No immediate complications. Impression: 1. Successful ultrasound guided core biopsy of right hepatic mass. Results pending. Finalized by Bob Simmons MD on 06/03/2024 1:22 PM Normal [facility] MAGNESIUMon 06-03-2024 Magnesium [Mass/Vol] 1.6 mg/dL Low 1.8-2.6 [facility] Comment on above: Performed By: #### C SAURABH ABDI, 1833-, 61209-3, FEPR, 6-4, 2283-8, 2132-03, TSHR #### [facility] ([id number]) [address] [place] [address], [address] [place] [address] PROTIME AND INRon 06-03-2024 INR Coag (PPP) [Relative time] 1.2 {INR} High 0.8-1.1 [facility] Comment on above: Performed By: #### C BCA, CMP, 1834-1, 57599-0, FEPR, 6-4, 2283-8, 2132-03, TSHR #### [facility] ([id number]) [address] [place] [address], [address] [place] [address] PT Coag (PPP) [Time] 14.3 s High 9.8-13.2 [facility] Comment on above: Performed By: #### C BCA, CMP, 1834-1, 24634-8, FEPR, 6-4, 2283-8, 2132-03, TSHR #### [facility] ([id number]) [address] [place] [address], [address] [place] [address] Surgical Pathologyon 024 Surgical Pathology Normal [facility] Comment on above: Result Comment: [facility] [address] [place] [address] Surgical Pathology Consultation Patient Name:MYKEL OLIVERA:1940 (Age: 84)Gender:MTaken:4Reported:06/09/2024hysician(s):OLY RODRIGUES, N.P. ([phone])Copy To:Bob Simmons M.D. Rec. #:[id number]: #[id number] Final Pathologic Diagnosis Liver, needle core biopsies: Minute focus of atypical hepatocellular proliferation, suspicious for hepatocellular carcinoma. Background of cirrhotic liver. Note: Immunohistochemical stains are performed with satisfactory controls. In a background of organizing hemorrhage. And cirrhotic liver, a small focus of atypical hepatocellular proliferation is noted which is positive for glypican-3 and arginase. CD34 shows an abnormal staining pattern and reticulin stain shows a loss of reticulin fiber. This focus is suspicious for a hepatocellular carcinoma. This case is reviewed intradepartmentally by another pathologist to agrees with the diagnosis. Report Electronically Signed Out formerly [facility], 1928–1983/06/09/2024Sarbjit Lombardi M.D. Interpretation performed at [facility], [address] [place] [address], License number: [id number]. Clinical History Bladder cancer non invasive, liver mass. Gross Description Received in formalin labeled JUAN C, liver BX are 6 pale pratt to fletcher fragmented portions of needle core biopsy segments, 1 x 0.5 x 0.1 cm in aggregate. The specimen is filtered and submitted entirely in a single cassette. (1, ns, [id number], m5) MD. katz/06/03/2024NSAndrew Intraoperative Consultation . Specimen(s) Received Liver core biopsy Fee Codes(s): 1; 97919, 74130, 13867(2), 10414 CBC AND AUTO DIFFon 06-02-20 24 ABSOLUTE BASOPHIL 0.0 X10E9/L Normal 0.0-0.2 [facility] Comment on above: Performed By: #### C BCA, CMP, 1834-1, 35209-5, FEPR, 2276-4, 2284-8, 2131-9, TSHR #### [facility] ([id number]) [address], [address] [place] [address] ABSOLUTE NEUTROPHIL 8.1 X10E9/L High 1.5-6.6 [facility] Comment on above: Performed By: #### C BCA, CMP, 183-1, 08975-7, FEPR, 2276-4, 2284-8, 213-9, TSHR #### [facility] ([id number]) [address] [place] [address] Basophils/100 WBC (Bld) 0.3 % Normal [facility] Comment on above: Performed By: #### C BCA, CMP, 1834-1, , FEPR, 2276-4, 2284-8, 2132-03, TSHR #### [facility] ([id number]) [address], [address] [place] [address] Eosinophils (Bld) [#/Vol] 0.2 10*3/uL Normal 0.0-0.4 [facility] Comment on above: Performed By: #### C BCA, CMP, 1833-07, , FEPR, 2276-4, 2284-8, 2132-03, TSHR #### [facility] ([id number]) [address] [address] [place] [address] Eosinophils/100 WBC (Bld) 1.7 % Normal [facility] Comment on above: Performed By: #### C BCA, CMP, 1833-07, , FEPR, 6-4, 2283-8, 2132-03, TSHR #### [facility] ([id number]) [address] [address] [place] [address] Erythrocyte distribution width (RBC) [Ratio] 15.5 % High 11.5-15.0 [facility] Comment on above: Performed By: #### C BCA, CMP, 1833-07, , FEPR, 6-4, 2283-8, 2132-03, TSHR #### [facility] ([id number]) [address] [address] [place] [address] Hematocrit (Bld) [Volume fraction] 21.2 % Low 39-49 [facility] Comment on above: Performed By: #### C BCA, CMP, 1833-07, , FEPR, 2276-4, 2284-8, 2132-03, TSHR #### [facility] ([id number]) [address] [address] [place] [address] Hemoglobin (Bld) [Mass/Vol] 7.3 g/dL Low 13.0-17.0 [facility] Comment on above: Performed By: #### C BCA, CMP, 1833-, 37981-2, FEPR, 2276-4, 4-8, 2131-9, TSHR #### [facility] ([id number]) [address] [place] [address] Lymphocytes (Bld) [#/Vol] 0.6 10*3/uL Low 1.0-3.5 [facility] Comment on above: Performed By: #### C BCA, CMP, 1833-07, , FEPR, 2276-4, 2283-8, 2132-03, TSHR #### [facility] ([id number]) [address], [address] [place] [address] Lymphocytes/100 WBC (Bld) 5.8 % Normal [facility] Comment on above: Performed By: #### C BCA, CMP, 1833-07, , FEPR, 2276-4, 4-8, 2132-03, TSHR #### [facility] ([id number]) [address], [address] [place] [address] MCH (RBC) [Entitic mass] 31.7 pg Normal 27-34 [facility] Comment on above: Performed By: #### C BCA, CMP, 1833-07, , FEPR, 2276-4, 4-8, 2132-03, TSHR #### [facility] ([id number]) [address], [address] [place] [address] MCHC (RBC) [Mass/Vol] 34.5 g/dL Normal 32-36 [facility] Comment on above: Performed By: #### C BCA, CMP, 1833-, 02489-3, FEPR, 2276-4, 2284-8, 2131-9, TSHR #### [facility] ([id number]) [address], [address] [place] [address] MCV (RBC) [Entitic vol] 92 fL Normal 80-100 [facility] Comment on above: Performed By: #### C BCA, CMP, 1833-, 92986-8, FEPR, 2276-4, 2284-8, 2131-9, TSHR #### [facility] ([id number]) [address], [address] [place] [address] Monocytes (Bld) [#/Vol] 1.1 10*3/uL High 0-0.9 [facility] Comment on above: Performed By: #### C BCA, CMP, 1833-, , FEPR, 2276-4, 2284-8, 2131-9, TSHR #### [facility] ([id number]) [address], [address] [place] [address] Monocytes/100 WBC (Bld) 11.0 % Normal [facility] Comment on above: Performed By: #### C BCA, CMP, 1833-, , FEPR, 2276-4, 2284-8, 2131-9, TSHR #### [facility] ([id number]) [address], [facility] [address] [place] [address] Neutrophils/100 WBC (Bld) 81.2 % Normal [facility] Comment on above: Performed By: #### C BCA, CMP, 1833-, , FEPR, 2276-4, 2284-8, 213-9, TSHR #### [facility] ([id number]) [address], [address] [place] [address] Platelet mean volume (Bld) [Entitic vol] 7.5 fL Normal 7-12 [facility] Comment on above: Performed By: #### C BCA, CMP, 1833-, 14869-7, FEPR, 2276-4, 2284-8, 2131-9, TSHR #### [facility] ([id number]) [address], [address] [place] [address] Platelets (Bld) [#/Vol] 196 10*3/uL Normal 150-450 [facility] Comment on above: Performed By: #### C BCA, CMP, 1833-1, 81205-5, FEPR, 2276-4, 2284-8, 2131-9, TSHR #### [facility] ([id number]) [address], [facility] [address] [place] [address] RBC COUNT 2.30 X10E12/L Low 4.10-5.70 [facility] Comment on above: Performed By: #### C BCA, CMP, 1833-, 49628-8, FEPR, 2276-4, 2283-8, 2132-03, TSHR #### [facility] ([id number]) [address] [address] WBC (Bld) [#/Vol] 10.0 10*3/uL Normal 4.0-11.0 [facility] Comment on above: Performed By: #### C BCA, CMP, 1833-, 19118-2, FEPR, 2276-4, 2284-8, 2132-03, TSHR #### [facility] ([id number]) [address], [address] [place] [address] COMPREHENSIVE METABOLIC PANE Zoran 06-02-2024 Albumin [Mass/Vol] 2.5 g/dL Low 3.2-5.3 [facility] Comment on above: Performed By: #### C BCA, CMP, 1833-, 59458-3, FEPR, 2276-4, 2284-8, 2131-9, TSHR #### [facility] ([id number]) [address], [address] [place] [address] ALP [Catalytic activity/Vol] 261 U/L High 39-130 [facility] Comment on above: Performed By: #### C BCA, CMP, 1833-, 55004-1, FEPR, 2276-4, 2284-8, 2131-9, TSHR #### [facility] ([id number]) [address], [address] [place] [address] ALT [Catalytic activity/Vol] 109 U/L High 0-40 [facility] Comment on above: Performed By: #### C BCA, CMP, 1833-, 62939-1, FEPR, 2276-4, 2284-8, 2131-9, TSHR #### [facility] ([id number]) [address], [address] [place] [address] Anion gap [Moles/Vol] 9 mmol/L Normal 5-15 [facility] Comment on above: Performed By: #### C BCA, CMP, 1833-07, 60748-5, FEPR, 2276-4, 2284-8, 2131-9, TSHR #### [facility] ([id number]) [address], [address] [place] [address] AST [Catalytic activity/Vol] 130 U/L High 0-41 [facility] Comment on above: Performed By: #### C BCA, CMP, 1833-, 16901-9, FEPR, 2276-4, 2284-8, 2131-9, TSHR #### [facility] ([id number]) [address], [address] [place] [address] Bilirubin [Mass/Vol] 1.7 mg/dL High 0.3-1.2 [facility] Comment on above: Performed By: #### C BCA, CMP, 1833-, 51498-0, FEPR, 2276-4, 2284-8, 2-9, TSHR #### [facility] ([id number]) [address], [address] [place] [address] Calcium [Mass/Vol] 8.4 mg/dL Low 8.5-10.5 [facility] Comment on above: Performed By: #### C BCA, CMP, 4-1, 11260-9, FEPR, 2276-4, 2284-8, 9, TSHR #### [facility] ([id number]) [address], [address] [place] [address] Chloride [Moles/Vol] 94 mmol/L Low 98-109 [facility] Comment on above: Performed By: #### C BCA, CMP, 1833-, , FEPR, 2276-4, 2284-8, 2132-03, TSHR #### [facility] ([id number]) [address], [facility] [address] [place] [address] CO2 [Moles/Vol] 26 mmol/L Normal 22-32 [facility] Comment on above: Performed By: #### C BCA, CMP, 1833-, 88322-0, FEPR, 2276-4, 2284-8, 2132-03, TSHR #### [facility] ([id number]) [address], [address] [place] [address] Creatinine [Mass/Vol] 1.60 mg/dL High 0.60-1.30 [facility] Comment on above: Result Comment: METH OD TRACEABLE TO IDMS STANDARD Performed By: #### C BCA, CMP, 1833-, 47459-9, FEPR, 2276-4, 2284-8, 9, TSHR #### [facility] ([id number]) [address] [address] [place] [address] GFR/1.73 sq M.predicted among non-blacks MDRD (S/P/Bld) [Vol rate/Area] 43 mL/min/{1.73_m2} Low >59 [facility] Comment on above: Result Comment: Reported eGFR is based on the CKD-EPI 2020 equation that does not use a race coefficient. Performed By: #### C BCA, CMP, 1833-, 51651-6, FEPR, 2276-4, 2284-8, 2132-03, TSHR #### [facility] ([id number]) [address], [address] [place] [address] Glucose [Mass/Vol] 104 mg/dL High 65-99 [facility] Comment on above: Performed By: #### C BCA, CMP, 1833-, 67211-9, FEPR, 2276-4, 228-8, 2132-03, TSHR #### [facility] ([id number]) [address] [place] [address] Potassium [Moles/Vol] 4.2 mmol/L Normal 3.5-5.0 [facility] Comment on above: Performed By: #### C BCA, CMP, 1833-07, , FEPR, 2276-4, 2283-8, 2132-03, TSHR #### [facility] ([id number]) [address], [address] [place] [address] Protein [Mass/Vol] 5.5 g/dL Low 6.0-8.0 [facility] Comment on above: Performed By: #### C BCA, CMP, 1833-07, , FEPR, 2276-4, 228-8, 2132-03, TSHR #### [facility] ([id number]) [address], [address] [place] [address] Sodium [Moles/Vol] 129 mmol/L Low 134-146 [facility] Comment on above: Performed By: #### C BCA, CMP, 1833-, 79541-6, FEPR, 2276-4, 2284-8, 9, TSHR #### [facility] ([id number]) [address], [address] [place] [address] Urea nitrogen [Mass/Vol] 36 mg/dL High 5-27 [facility] Comment on above: Performed By: #### C JIN, CMP, 1833-1, 11576-5, FEPR, 2276-4, 4-8, 2132-03, TSHR #### [facility] ([id number]) [address], [address] [place] [address] HGB AND HCTon 06-02-2024 Hematocrit (Bld) [Volume fraction] 21.0 % Low 39-49 [facility] Comment on above: Performed By: #### C JIN, CMP, 1833-07, , FEPR, 6-4, 2283-8, 2132-03, TSHR #### [facility] ([id number]) [address], [address] [place] [address] Hemoglobin (Bld) [Mass/Vol] 7.2 g/dL Low 13.0-17.0 [facility] Comment on above: Performed By: #### C JIN, CMP, 1833-07, , FEPR, 6-4, 2283-8, 2132-03, TSHR #### [facility] ([id number]) [address], [address] [place] [address] MAGNESIUMon 06-02-2024 Magnesium [Mass/Vol] 1.8 mg/dL Normal 1.8-2.6 [facility] Comment on above: Performed By: #### C BCA, CMP, 1833-07, 11061-4, FEPR, 6-4, 2283-8, 2132-03, TSHR #### [facility] ([id number]) [address], [address] [place] [address] PROTIME AND INRon 06-02-2024 INR Coag (PPP) [Relative time] 1.3 {INR} High 0.8-1.1 [facility] Comment on above: Performed By: #### C BCA, CMP, 4-1, 99528-2, FEPR, 2276-4, 2284-8, 2131-9, TSHR #### [facility] ([id number]) [address], [address] [place] [address] PT Coag (PPP) [Time] 14.8 s High 9.8-13.2 [facility] Comment on above: Performed By: #### C BCA, CMP, 1833-, 59301-7, FEPR, 2276-4, 2284-8, 2131-9, TSHR #### [facility] ([id number]) [address], [address] [place] [address] aPTT Coag (PPP) [Time]on aPTT Coag (Bld) [Time] 33 s Normal 26-37 [facility] Comment on above: Performed By: #### C BCA, CMP, 1833-, 57844-6, FEPR, 2276-4, 2284-8, 2131-9, TSHR #### [facility] ([id number]) [address], [address] [place] [address] aPTT Coag (Bld) [Time] 28 s Normal 26-37 [facility] Comment on above: Performed By: #### C BCA, CMP, 1833-, 90756-6, FEPR, 2276-4, 2284-8, 2131-9, TSHR #### [facility] ([id number]) [address], [address] [place] [address] aPTT Coag (Bld) [Time] 33 s Normal 26-37 [facility] Comment on above: Performed By: #### C BCA, CMP, 1834-1, 64232-6, FEPR, 2276-4, 2284-8, 2-9, TSHR #### [facility] ([id number]) [address] [place] [address] BASIC METABOLIC PANLon 06-01 Anion gap [Moles/Vol] 7 mmol/L Normal 5-15 [facility] Comment on above: Performed By: #### C BCA, CMP, 1833-1, 83862-9, FEPR, 2276-4, 2284-8, 2131-9, TSHR #### [facility] ([id number]) [address] [place] [address] Calcium [Mass/Vol] 8.6 mg/dL Normal 8.5-10.5 [facility] Comment on above: Performed By: #### C BCA, CMP, 1833-, , FEPR, 2276-4, 2284-8, 2131-9, TSHR #### [facility] ([id number]) [address], [address] [place] [address] Chloride [Moles/Vol] 94 mmol/L Low 98-109 [facility] Comment on above: Performed By: #### C BCA, CMP, 1833-07, , FEPR, 2276-4, 2284-8, 2132-03, TSHR #### [facility] ([id number]) [address], [address] [place] [address] CO2 [Moles/Vol] 26 mmol/L Normal 22-32 [facility] Comment on above: Performed By: #### C BCA, CMP, 1833-, , FEPR, 2276-4, 2284-8, 2131-9, TSHR #### [facility] ([id number]) [address], [address] [place] [address] Creatinine [Mass/Vol] 1.65 mg/dL High 0.60-1.30 [facility] Comment on above: Result Comment: METH OD TRACEABLE TO IDMS STANDARD Performed By: #### C BCA, CMP, 1833-07, , FEPR, 2276-4, 2284-8, 2132-03, TSHR #### [facility] ([id number]) [address], [address] [address] GFR/1.73 sq M.predicted among non-blacks MDRD (S/P/Bld) [Vol rate/Area] 41 mL/min/{1.73_m2} Low >59 [facility] Comment on above: Result Comment: Reported eGFR is based on the CKD-EPI 2020 equation that does not use a race coefficient. Performed By: #### C BCA, CMP, 1833-07, , FEPR, 2276-4, 2283-8, 2132-03, TSHR #### [facility] ([id number]) [address], [address] [address] Glucose [Mass/Vol] 206 mg/dL High 65-99 [facility] Comment on above: Performed By: #### C BCA, CMP, 1833-07, , FEPR, 2276-4, 228-8, 2132-03, TSHR #### [facility] ([id number]) [address], [address] [address] Potassium [Moles/Vol] 4.2 mmol/L Normal 3.5-5.0 [facility] Comment on above: Performed By: #### C BCA, CMP, 1833-07, , FEPR, 2276-4, 228-8, 2132-03, TSHR #### [facility] ([id number]) [address], [address] [place] [address] Sodium [Moles/Vol] 127 mmol/L Low 134-146 [facility] Comment on above: Performed By: #### C BCA, CMP, 1833-07, , FEPR, 2276-4, 2284-8, 9, TSHR #### [facility] ([id number]) [address], [address] [place] [address] Urea nitrogen [Mass/Vol] 36 mg/dL High 5-27 [facility] Comment on above: Performed By: #### C BCA, CMP, 1833-07, , FEPR, 2276-4, 2284-8, 2132-03, TSHR #### [facility] ([id number]) [address], [address] [place] [address] CBC AND AUTO DIFFon 06-01-20 24 ABSOLUTE BASOPHIL 0.0 X10E9/L Normal 0.0-0.2 [facility] Comment on above: Performed By: #### C BCA, CMP, 1833-07, , FEPR, 6-4, 4-8, 2132-03, TSHR #### [facility] ([id number]) [address], [address] [place] [address] ABSOLUTE NEUTROPHIL 10.4 X10E9/L High 1.5-6.6 [facility] Comment on above: Performed By: #### C BCA, CMP, 1833-07, , FEPR, 2275-4, 2283-8, 2132-03, TSHR #### [facility] ([id number]) [address], [address] [place] [address] Basophils/100 WBC (Bld) 0.1 % Normal [facility] Comment on above: Performed By: #### C BCA, CMP, 1833-07, , FEPR, 6-4, 4-8, 2132-03, TSHR #### [facility] ([id number]) [address], [address] [place] [address] Eosinophils (Bld) [#/Vol] 0.1 10*3/uL Normal 0.0-0.4 [facility] Comment on above: Performed By: #### C BCA, CMP, 1833-07, 48634-1, FEPR, 2276-4, 2284-8, 9, TSHR #### [facility] ([id number]) [address] [place] [address] Eosinophils/100 WBC (Bld) 1.2 % Normal [facility] Comment on above: Performed By: #### C BCA, CMP, 1833-, 39512-8, FEPR, 2276-4, 4-8, 9, TSHR #### [facility] ([id number]) [address] [address] [place] [address] Erythrocyte distribution width (RBC) [Ratio] 15.6 % High 11.5-15.0 [facility] Comment on above: Performed By: #### C BCA, CMP, 1833-07, , FEPR, 6-4, 2283-8, 2132-03, TSHR #### [facility] ([id number]) [address], [address] [place] [address] Hematocrit (Bld) [Volume fraction] 23.5 % Low 39-49 [facility] Comment on above: Performed By: #### C BCA, CMP, 1833-, 17905-5, FEPR, 2276-4, 4-8, 2132-03, TSHR #### [facility] ([id number]) [address], [facility] [address] [place] [address] Hemoglobin (Bld) [Mass/Vol] 8.0 g/dL Low 13.0-17.0 [facility] Comment on above: Performed By: #### C BCA, CMP, 1833-, 12018-3, FEPR, 2276-4, 2284-8, 2131-9, TSHR #### [facility] ([id number]) [address] [address] [place] [address] Lymphocytes (Bld) [#/Vol] 0.4 10*3/uL Low 1.0-3.5 [facility] Comment on above: Performed By: #### C BCA, CMP, 1833-, , FEPR, 2276-4, 2283-8, 2132-03, TSHR #### [facility] ([id number]) [address], [address] [place] [address] Lymphocytes/100 WBC (Bld) 3.4 % Normal [facility] Comment on above: Performed By: #### C BCA, CMP, 1833-, , FEPR, 6-4, 2283-8, 2132-03, TSHR #### [facility] ([id number]) [address], [address] [place] [address] MCH (RBC) [Entitic mass] 31.3 pg Normal 27-34 [facility] Comment on above: Performed By: #### C BCA, CMP, 1833-07, , FEPR, 6-4, 2283-8, 2132-03, TSHR #### [facility] ([id number]) [address], [address] [place] [address] MCHC (RBC) [Mass/Vol] 34.0 g/dL Normal 32-36 [facility] Comment on above: Performed By: #### C BCA, CMP, 1833-07, , FEPR, 6-4, 2283-8, 2132-03, TSHR #### [facility] ([id number]) [address], [address] [place] [address] MCV (RBC) [Entitic vol] 92 fL Normal 80-100 [facility] Comment on above: Performed By: #### C BCA, CMP, 1833-, 99090-1, FEPR, 2276-4, 4-8, 2131-9, TSHR #### [facility] ([id number]) [address], [address] [place] [address] Monocytes (Bld) [#/Vol] 1.3 10*3/uL High 0-0.9 [facility] Comment on above: Performed By: #### C BCA, CMP, 1834-1, 19229-0, FEPR, 2276-4, 2284-8, 2-9, TSHR #### [facility] ([id number]) [address], [address] [place] [address] Monocytes/100 WBC (Bld) 10.6 % Normal P [facility] Comment on above: Performed By: #### C BCA, CMP, 1833-, 99114-4, FEPR, 2276-4, 2284-8, 2131-9, TSHR #### [facility] ([id number]) [address], [address] [place] [address] Neutrophils/100 WBC (Bld) 84.7 % Normal [facility] Comment on above: Performed By: #### C BCA, CMP, 1833-, 64223-4, FEPR, 2276-4, 2284-8, 2131-9, TSHR #### [facility] ([id number]) [address], [address] [place] [address] Platelet mean volume (Bld) [Entitic vol] 7.6 fL Normal 7-12 [facility] Comment on above: Performed By: #### C BCA, CMP, 1833-, 55284-8, FEPR, 2276-4, 2284-8, 2131-9, TSHR #### [facility] ([id number]) [address], [address] [place] [address] Platelets (Bld) [#/Vol] 219 10*3/uL Normal 150-450 [facility] Comment on above: Performed By: #### C BCA, CMP, 1833-, 90372-6, FEPR, 2276-4, 2284-8, 2132-9, TSHR #### [facility] ([id number]) [address], [address] [place] [address] RBC COUNT 2.55 X10E12/L Low 4.10-5.70 [facility] Comment on above: Performed By: #### C BCA, CMP, 4-1, 41152-8, FEPR, 2276-4, 2283-8, 2132-03, TSHR #### [facility] ([id number]) [address], [address] [place] [address] WBC (Bld) [#/Vol] 12.3 10*3/uL High 4.0-11.0 [facility] Comment on above: Performed By: #### C BCA, CMP, 1833-, 31893-6, FEPR, 6-4, 8, 2132-03, TSHR #### [facility] ([id number]) [address], [address] [place] [address] COMPREHENSIVE METABOLIC PANE Zoran 06-01-2024 Albumin [Mass/Vol] 2.7 g/dL Low 3.2-5.3 [facility] Comment on above: Performed By: #### C BCA, CMP, 1833-, 85626-5, FEPR, 6-4, 2283-8, 2132-03, TSHR #### [facility] ([id number]) [address], [address] [place] [address] ALP [Catalytic activity/Vol] 287 U/L High 39-130 [facility] Comment on above: Performed By: #### C BCA, CMP, 1833-, 63278-8, FEPR, 2276-4, 2283-8, 2132-03, TSHR #### [facility] ([id number]) [address], [address] [place] [address] ALT [Catalytic activity/Vol] 135 U/L High 0-40 [facility] Comment on above: Performed By: #### C BCA, CMP, 1833-, 41448-2, FEPR, 2276-4, 2284-8, 2131-9, TSHR #### [facility] ([id number]) [address], [address] [place] [address] Anion gap [Moles/Vol] 9 mmol/L Normal 5-15 [facility] Comment on above: Performed By: #### C BCA, CMP, 1833-, 52172-1, FEPR, 2276-4, 2284-8, 2131-9, TSHR #### [facility] ([id number]) [address], [address] [place] [address] AST [Catalytic activity/Vol] 177 U/L High 0-41 [facility] Comment on above: Performed By: #### C BCA, CMP, 1833-07, , FEPR, 2276-4, 2284-8, 2132-03, TSHR #### [facility] ([id number]) [address], [address] [place] [address] Bilirubin [Mass/Vol] 1.9 mg/dL High 0.3-1.2 [facility] Comment on above: Performed By: #### C BCA, CMP, 1833-, , FEPR, 2276-4, 2284-8, 2132-03, TSHR #### [facility] ([id number]) [address], [address] [place] [address] Calcium [Mass/Vol] 8.8 mg/dL Normal 8.5-10.5 [facility] Comment on above: Performed By: #### C BCA, CMP, 1833-, 37304-3, FEPR, 2276-4, 2284-8, 2131-9, TSHR #### [facility] ([id number]) [address], [address] [place] [address] Chloride [Moles/Vol] 95 mmol/L Low 98-109 [facility] Comment on above: Performed By: #### C BCA, CMP, 1833-1, 13670-4, FEPR, 2276-4, 4-8, 2132-03, TSHR #### [facility] ([id number]) [address], [address] [place] [address] CO2 [Moles/Vol] 25 mmol/L Normal 22-32 [facility] Comment on above: Performed By: #### C BCA, CMP, 1833-, 87982-2, FEPR, 6-4, 2283-8, 2132-03, TSHR #### [facility] ([id number]) [address], [address] [place] [address] Creatinine [Mass/Vol] 1.47 mg/dL High 0.60-1.30 [facility] Comment on above: Result Comment: METH OD TRACEABLE TO IDMS STANDARD Performed By: #### C BCA, CMP, 1833-, , FEPR, 6-4, 2283-8, 2132-03, TSHR #### [facility] ([id number]) [address], [address] [place] [address] GFR/1.73 sq M.predicted among non-blacks MDRD (S/P/Bld) [Vol rate/Area] 47 mL/min/{1.73_m2} Low >59 [facility] Comment on above: Result Comment: Reported eGFR is based on the CKD-EPI 2020 equation that does not use a race coefficient. Performed By: #### C BCA, CMP, 1833-1, 12835-3, FEPR, 2276-4, 2283-8, 2132-03, TSHR #### [facility] ([id number]) [address], [address] [place] [address] Glucose [Mass/Vol] 126 mg/dL High 65-99 [facility] Comment on above: Performed By: #### C BCA, CMP, 1833-, 12623-5, FEPR, 2276-4, 228-8, 2132-03, TSHR #### [facility] ([id number]) [address], [address] [place] [address] Potassium [Moles/Vol] 4.0 mmol/L Normal 3.5-5.0 [facility] Comment on above: Performed By: #### C BCA, CMP, 1833-, 73524-3, FEPR, 2276-4, 2283-8, 2132-03, TSHR #### [facility] ([id number]) [address], [address] [place] [address] Protein [Mass/Vol] 5.9 g/dL Low 6.0-8.0 [facility] Comment on above: Performed By: #### C BCA, CMP, 1833-07, , FEPR, 2276-4, 2283-8, 2132-03, TSHR #### [facility] ([id number]) [address], [address] [place] [address] Sodium [Moles/Vol] 129 mmol/L Low 134-146 [facility] Comment on above: Performed By: #### C BCA, CMP, 1833-07, , FEPR, 6-4, 2283-8, 2132-03, TSHR #### [facility] ([id number]) [address], [address] [place] [address] Urea nitrogen [Mass/Vol] 36 mg/dL High 5-27 [facility] Comment on above: Performed By: #### C BCA, CMP, 1833-, 34636-9, FEPR, 2276-4, 228-8, 9, TSHR #### [facility] ([id number]) [address], [address] [place] [address] HGB AND HCTon 11-05-2024 Hematocrit (Bld) [Volume fraction] 22.8 % Low 39-49 [facility] Comment on above: Performed By: #### C BCA, CMP, 1833-07, , FEPR, 6-4, 2283-8, 2132-03, TSHR #### [facility] ([id number]) [address], [address] [place] [address] Hemoglobin (Bld) [Mass/Vol] 7.6 g/dL Low 13.0-17.0 [facility] Comment on above: Performed By: #### C JIN, CMP, 1833-07, , FEPR, 2275-4, 8, 2132-03, TSHR #### [facility] ([id number]) [address], [address] [place] [address] MAGNESIUMon 06-01-2024 Magnesium [Mass/Vol] 1.8 mg/dL Normal 1.8-2.6 [facility] Comment on above: Performed By: #### C BCA, CMP, 1833-07, , FEPR, 2275-4, 2284-02, 2132-03, TSHR #### [facility] ([id number]) [address], [address] [place] [address] Magnesium Ionized ISE (Bld) [Moles/Vol]on 06-01-2024 Magnesium [Moles/Vol] 0.63 mmol/L Normal 0.45-0.74 [facility] Comment on above: Result Comment: NEW REFERENCE RANGE Performed By: #### C BCA, CMP, 1833-07, , FEPR, 2275-4, 2284-02, 2132-03, TSHR #### [facility] ([id number]) [address], [address] [place] [address] PROTIME AND INRon 06-01-2024 INR Coag (PPP) [Relative time] 1.6 {INR} High 0.8-1.1 [facility] Comment on above: Performed By: #### C BCA, CMP, 1833-, 79629-6, FEPR, 2276-4, 2284-8, 2132-03, TSHR #### [facility] ([id number]) [address], [address] [place] [address] PT Coag (PPP) [Time] 18.1 s High 9.8-13.2 [facility] Comment on above: Performed By: #### C BCA, CMP, 1833-07, , FEPR, 2276-4, 2284-8, 2132-03, TSHR #### [facility] ([id number]) [address], [address] [place] [address] INR Coag (PPP) [Relative time] 1.5 {INR} High 0.8-1.1 [facility] Comment on above: Performed By: #### C BCA, CMP, 1833-07, , FEPR, 2276-4, 2284-8, 2132-03, TSHR #### [facility] ([id number]) [address], [address] [place] [address] PT Coag (PPP) [Time] 17.2 s High 9.8-13.2 [facility] Comment on above: Performed By: #### C BCA, CMP, 1833-07, , FEPR, 2276-4, 2284-8, 2132-03, TSHR #### [facility] ([id number]) [address], [address] [place] [address] aPTT Coag (PPP) [Time]on aPTT Coag (Bld) [Time] 27 s Normal 26-37 [facility] Comment on above: Performed By: #### C BCA, CMP, 1833-07, 61423-3, FEPR, 2276-4, 2284-8, 2132-9, TSHR #### [facility] ([id number]) [address], [address] [place] [address] CBC AND AUTO DIFFon 05-31-20 24 ABSOLUTE BASOPHIL 0.0 X10E9/L Normal 0.0-0.2 [facility] Comment on above: Performed By: #### C BCA, CMP, 1833-, 91270-9, FEPR, 6-4, 2283-8, 2132-03, TSHR #### [facility] ([id number]) [address], [address] [place] [address] ABSOLUTE NEUTROPHIL 8.4 X10E9/L High 1.5-6.6 [facility] Comment on above: Performed By: #### C BCA, CMP, 1833-, 09389-6, FEPR, 2275-4, 2283-8, 2132-03, TSHR #### [facility] ([id number]) [address], [address] [place] [address] Basophils/100 WBC (Bld) 0.1 % Normal [facility] Comment on above: Performed By: #### C BCA, CMP, 1833-, 74652-5, FEPR, 2275-4, 2283-8, 9, TSHR #### [facility] ([id number]) [address], [address] [place] [address] Eosinophils (Bld) [#/Vol] 0.1 10*3/uL Normal 0.0-0.4 [facility] Comment on above: Performed By: #### C BCA, CMP, 1833-, 82552-5, FEPR, 2275-4, 2283-8, 9, TSHR #### [facility] ([id number]) [address], [address] [place] [address] Eosinophils/100 WBC (Bld) 0.9 % Normal [facility] Comment on above: Performed By: #### C BCA, CMP, 1833-, 55487-5, FEPR, 2276-4, 2284-8, 2132-03, TSHR #### [facility] ([id number]) [address], [address] [place] [address] Erythrocyte distribution width (RBC) [Ratio] 15.4 % High 11.5-15.0 [facility] Comment on above: Performed By: #### C BCA, CMP, 1833-, , FEPR, 2276-4, 2284-8, 2132-03, TSHR #### [facility] ([id number]) [address], [address] [place] [address] Hematocrit (Bld) [Volume fraction] 20.7 % Low 39-49 [facility] Comment on above: Performed By: #### C BCA, CMP, 1833-07, , FEPR, 2276-4, 2283-8, 2132-03, TSHR #### [facility] ([id number]) [address], [address] [place] [address] Hemoglobin (Bld) [Mass/Vol] 7.2 g/dL Low 13.0-17.0 [facility] Comment on above: Performed By: #### C BCA, CMP, 1833-07, , FEPR, 2276-4, 228-8, 2132-03, TSHR #### [facility] ([id number]) [address], [address] [place] [address] Lymphocytes (Bld) [#/Vol] 0.4 10*3/uL Low 1.0-3.5 [facility] Comment on above: Performed By: #### C BCA, CMP, 1833-, 27806-8, FEPR, 2276-4, 2284-8, 2131-9, TSHR #### [facility] ([id number]) [address], [address] [place] [address] Lymphocytes/100 WBC (Bld) 4.1 % Normal [facility] Comment on above: Performed By: #### C BCA, CMP, 1833-, 78585-0, FEPR, 2276-4, 2284-8, 9, TSHR #### [facility] ([id number]) [address], [address] [place] [address] MCH (RBC) [Entitic mass] 31.7 pg Normal 27-34 [facility] Comment on above: Performed By: #### C BCA, CMP, 1833-, , FEPR, 2276-4, 2284-8, 2132-03, TSHR #### [facility] ([id number]) [address], [address] [place] [address] MCHC (RBC) [Mass/Vol] 34.6 g/dL Normal 32-36 [facility] Comment on above: Performed By: #### C BCA, CMP, 1833-07, , FEPR, 2276-4, 2283-8, 2132-03, TSHR #### [facility] ([id number]) [address], [address] [place] [address] MCV (RBC) [Entitic vol] 92 fL Normal 80-100 [facility] Comment on above: Performed By: #### C BCA, CMP, 1833-07, , FEPR, 2276-4, 2284-8, 9, TSHR #### [facility] ([id number]) [address], [address] [place] [address] Monocytes (Bld) [#/Vol] 1.1 10*3/uL High 0-0.9 [facility] Comment on above: Performed By: #### C BCA, CMP, 1833-, 77330-2, FEPR, 2276-4, 2284-8, 9, TSHR #### [facility] ([id number]) [address], [address] [place] [address] Monocytes/100 WBC (Bld) 11.1 % Normal [facility] Comment on above: Performed By: #### C BCA, CMP, 1833-, 75510-9, FEPR, 2276-4, 2283-8, 9, TSHR #### [facility] ([id number]) [address], [address] [place] [address] Neutrophils/100 WBC (Bld) 83.8 % Normal [facility] Comment on above: Performed By: #### C BCA, CMP, 1833-, 24185-7, FEPR, 6-4, 2283-8, 2132-03, TSHR #### [facility] ([id number]) [address], [address] [place] [address] Platelet mean volume (Bld) [Entitic vol] 7.6 fL Normal 7-12 [facility] Comment on above: Performed By: #### C BCA, CMP, 1833-07, , FEPR, 6-4, 2283-8, 2132-03, TSHR #### [facility] ([id number]) [address], [address] [place] [address] Platelets (Bld) [#/Vol] 214 10*3/uL Normal 150-450 [facility] Comment on above: Performed By: #### C BCA, CMP, 1833-, 79101-4, FEPR, 6-4, 2283-8, 2132-03, TSHR #### [facility] ([id number]) [address], [address] [place] [address] RBC COUNT 2.26 X10E12/L Low 4.10-5.70 [facility] Comment on above: Performed By: #### C BCA, CMP, 1834-1, 83642-5, FEPR, 2276-4, 2284-8, 2131-9, TSHR #### [facility] ([id number]) [address], [address] [place] [address] WBC (Bld) [#/Vol] 10.0 10*3/uL Normal 4.0-11.0 [facility] Comment on above: Performed By: #### C BCA, CMP, 1833-, 60756-1, FEPR, 2276-4, 2284-8, 9, TSHR #### [facility] ([id number]) [address], [address] [place] [address] COMPREHENSIVE METABOLIC PANE Zoran 05-31-2024 Albumin [Mass/Vol] 2.5 g/dL Low 3.2-5.3 [facility] Comment on above: Performed By: #### C BCA, CMP, 1833-, 64240-7, FEPR, 2276-4, 2284-8, 2132-03, TSHR #### [facility] ([id number]) [address], [address] [place] [address] ALP [Catalytic activity/Vol] 208 U/L High 39-130 [facility] Comment on above: Performed By: #### C BCA, CMP, 1833-, 60197-2, FEPR, 2276-4, 2284-8, 2131-9, TSHR #### [facility] ([id number]) [address], [address] [place] [address] ALT [Catalytic activity/Vol] 123 U/L High 0-40 [facility] Comment on above: Performed By: #### C BCA, CMP, 1833-1, 79538-8, FEPR, 2276-4, 2284-8, 2131-9, TSHR #### [facility] ([id number]) [address], [address] [place] [address] Anion gap [Moles/Vol] 7 mmol/L Normal 5-15 [facility] Comment on above: Performed By: #### C BCA, CMP, 1833-1, 66792-8, FEPR, 2276-4, 2284-8, 2131-9, TSHR #### [facility] ([id number]) [address], [address] [place] [address] AST [Catalytic activity/Vol] 149 U/L High 0-41 [facility] Comment on above: Performed By: #### C BCA, CMP, 1833-, 29592-3, FEPR, 2276-4, 2284-8, 2132-03, TSHR #### [facility] ([id number]) [address], [address] [place] [address] Bilirubin [Mass/Vol] 1.6 mg/dL High 0.3-1.2 [facility] Comment on above: Performed By: #### C BCA, CMP, 1833-07, 12733-7, FEPR, 2276-4, 2284-8, 2132-03, TSHR #### [facility] ([id number]) [address], [address] [place] [address] Calcium [Mass/Vol] 8.7 mg/dL Normal 8.5-10.5 [facility] Comment on above: Performed By: #### C BCA, CMP, 1833-, 04406-6, FEPR, 2276-4, 2284-8, 2132-03, TSHR #### [facility] ([id number]) [address], [address] [place] [address] Chloride [Moles/Vol] 97 mmol/L Low 98-109 [facility] Comment on above: Performed By: #### C BCA, CMP, 1833-, 54854-8, FEPR, 2276-4, 2284-8, 2131-9, TSHR #### [facility] ([id number]) [address], [address] [place] [address] CO2 [Moles/Vol] 27 mmol/L Normal 22-32 [facility] Comment on above: Performed By: #### C BCA, CMP, 1833-, , FEPR, 2276-4, 4-8, 2132-03, TSHR #### [facility] ([id number]) [address], [address] [place] [address] Creatinine [Mass/Vol] 1.49 mg/dL High 0.60-1.30 [facility] Comment on above: Result Comment: METH OD TRACEABLE TO IDMS STANDARD Performed By: #### C BCA, CMP, 1833-07, , FEPR, 6-4, 2283-8, 2132-03, TSHR #### [facility] ([id number]) [address], [address] [place] [address] GFR/1.73 sq M.predicted among non-blacks MDRD (S/P/Bld) [Vol rate/Area] 47 mL/min/{1.73_m2} Low >59 [facility] Comment on above: Result Comment: Reported eGFR is based on the CKD-EPI 2020 equation that does not use a race coefficient. Performed By: #### C BCA, CMP, 1833-07, , FEPR, 6-4, 2283-8, 2132-03, TSHR #### [facility] ([id number]) [address], [address] [place] [address] Glucose [Mass/Vol] 111 mg/dL High 65-99 [facility] Comment on above: Performed By: #### C BCA, CMP, 1833-07, , FEPR, 2276-4, 2284-8, 2132-03, TSHR #### [facility] ([id number]) [address], [address] [place] [address] Potassium [Moles/Vol] 3.9 mmol/L Normal 3.5-5.0 [facility] Comment on above: Performed By: #### C BCA, CMP, 1834-1, 82257-9, FEPR, 2276-4, 4-8, 2131-9, TSHR #### [facility] ([id number]) [address], [address] [place] [address] Protein [Mass/Vol] 5.4 g/dL Low 6.0-8.0 [facility] Comment on above: Performed By: #### C BCA, CMP, 4-1, 35298-7, FEPR, 2276-4, 2283-8, 2131-9, TSHR #### [facility] ([id number]) [address] [facility], [address] [place] [address] Sodium [Moles/Vol] 131 mmol/L Low 134-146 [facility] Comment on above: Performed By: #### C BCA, CMP, 1833-1, 14198-2, FEPR, 2276-4, 2283-8, 9, TSHR #### [facility] ([id number]) [address], [address] [place] [address] Urea nitrogen [Mass/Vol] 39 mg/dL High 5-27 [facility] Comment on above: Performed By: #### C BCA, CMP, 183-1, 31348-1, FEPR, 2276-4, 2283-8, 9, TSHR #### [facility] ([id number]) [address], [address] [place] [address] Clinical Pathologyon 024 Clinical Pathology Normal [facility] Comment on above: Result Comment: [facility] [address] [place] [address] Clinical Pathology Report Patient Name:MYKEL OLIVERA:1940 (Age: 84)Gender:MTaken:4Reported:06/01/2024hysician(s):CHEMO RODRIGUES NOscar ([phone])Copy To: Rec. 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 Hypoalbuminemia with increase in acute phase reactants. Report Electronically Signed Out df/06/01/2024violeta Spain MD Interpretation performed at [facility], [address] [place] [address], License number: [id number]. Clinical History K92.1 SERUM PROTEIN ELECTROPHORESIS SAMPLE NO: [id number] ELECTROPHORETIC FRACTION CONCENTRATIONS (g/dL) PATIENT REFERENCE RANGE Albumin 2.1 L 3.4 - 5.3 Alpha-1 globulin 0.6 H 0.1 - 0.4 Alpha-2 globulin 0.8 0.4 - 1.1 Beta globulin 0.8 0.5 - 1.2 Gamma globulin 0.9 0.5 - 1.6 1 0.2 2 0.2 Total protein 5.2 6.0 - 8.0 (Electrophoretic gels and densitometric tracings on file in lab.) SERUM IEP IMMUNOGLOBULIN LEVELS (mg/dL): IgG : 1041 IgA : 309 IgM : 145 Free Goldenrod: 9.52 Free Lambda: 9.11 Free Goldenrod/Lambda ratio: 1.05 Specimen(s) Received 1: Serum Protein Electrophoresis 2: Serum IEP Fee Codes(s): 1; 18150-92 2; 07586-34 HGB AND HCTon 05-31-2024 Hematocrit (Bld) [Volume fraction] 23.0 % Low 39-49 [facility] Comment on above: Performed By: #### 1 9123-9 #### [facility] ([id number]) [address] [place] [address], [address] [place] [address] Hemoglobin (Bld) [Mass/Vol] 7.8 g/dL Low 13.0-17.0 [facility] Comment on above: Performed By: #### 1 9123-9 #### [facility] ([id number]) [address], [address] [place] [address] Hematocrit (Bld) [Volume fraction] 23.4 % Low 39-49 [facility] Comment on above: Performed By: #### 1 9123-9 #### [facility] ([id number]) [address], [address] [place] [address] Hemoglobin (Bld) [Mass/Vol] 8.0 g/dL Low 13.0-17.0 [facility] Comment on above: Performed By: #### 1 9123-9 #### [facility] ([id number]) [address], [address] [place] [address] Haptoglobin Nephelometry [Ma ss/Vol]on 05-31-2024 HAPTOGLOBIN 251 mg/dL High 32-228 [facility] Comment on above: Performed By: #### 1 9123-9 #### [facility] ([id number]) [address], [address] [place] [address] IMMUNOELECTROPHORESIS FOR TH ERAPY MONITORINGon 05-31-2024 FREE SHEREE/LAMBD RATIO 1.05 Normal 0.26-1.65 [facility] Comment on above: Performed By: #### C BCA, CMP, 1833-07, , FEPR, 2275-4, 2284-02, 2132-03, TSHR #### [facility] ([id number]) [address], [address] [place] [address] FREE KAPPA LT CHAINS 9.52 mg/dL High 0.33-1.94 [facility] Comment on above: Performed By: #### C BCA, CMP, 1833-07, , FEPR, 2276-4, 4-8, 2132-03, TSHR #### [facility] ([id number]) [address], [address] [place] [address] FREE LAMBDA LT CHAINS 9.11 mg/dL High 0.57-2.63 [facility] Comment on above: Performed By: #### C BCA, CMP, 1834-1, 08594-9, FEPR, 2276-4, 2284-8, 2131-9, TSHR #### [facility] ([id number]) [address], [address] [address] IgA [Mass/Vol] 309 mg/dL Normal 68-378 [facility] Comment on above: Performed By: #### C BCA, CMP, 4-, 86033-1, FEPR, 2276-4, 2284-8, 2131-9, TSHR #### [facility] ([id number]) [address] [address] IgG [Mass/Vol] 1041 mg/dL Normal 635-1741 [facility] Comment on above: Performed By: #### C BCA, CMP, 4-, 79037-0, FEPR, 2276-4, 2284-8, 2131-9, TSHR #### [facility] ([id number]) [address] [address] IgM [Mass/Vol] 145 mg/dL Normal 45-281 [facility] Comment on above: Performed By: #### C BCA, CMP, 1833-, 05809-8, FEPR, 2276-4, 2284-8, 2131-9, TSHR #### [facility] ([id number]) [address] [address] IMMUNE PROFILE INTERP SEE SEPARATE REPORT Normal [facility] Comment on above: Performed By: #### C BCA, CMP, 1834-1, 97615-2, FEPR, 2276-4, 2284-8, 2132-9, TSHR #### [facility] ([id number]) [address] [address] [place] [address] LDH [Catalytic activity/Vol] on 05-31-2024 LDH 291 U/L High 100-235 [facility] Comment on above: Performed By: #### 1 9123-9 #### [facility] ([id number]) [address], [address] [place] [address] MAGNESIUMon 05-31-2024 Magnesium [Mass/Vol] 2.0 mg/dL Normal 1.8-2.6 [facility] Comment on above: Performed By: #### C JIN, CMP, 1833-07, , FEPR, 2275-, 2284-02, 2132-03, TSHR #### [facility] ([id number]) [address], [address] [place] [address] Osmolality (U) [Osmolality]o n 05-31-2024 URINE OSMOLALITY 372 mOsm/kg H2 Normal 300-1300 [facility] Comment on above: Performed By: #### 1 9123-9 #### [facility] ([id number]) [address], [address] [place] [address] PROTIME AND INRon 05-31-2024 INR Coag (PPP) [Relative time] 1.2 {INR} High 0.8-1.1 [facility] Comment on above: Performed By: #### C BCA, CMP, 1833-07, , FEPR, 2275-4, 2284-02, 2132-03, TSHR #### [facility] ([id number]) [address], [address] [place] [address] PT Coag (PPP) [Time] 14.3 s High 9.8-13.2 [facility] Comment on above: Performed By: #### C BCA, CMP, 1833-07, , FEPR, 2275-4, 2284-02, 2132-03, TSHR #### [facility] ([id number]) [address], [address] [place] [address] Reticulocytes/100 RBC (Bld)o n 05-31-2024 RETICULOCYTE COUNT 3.7 % High 0.4-2.2 [facility] Comment on above: Performed By: #### 1 9123-9 #### [facility] ([id number]) [address], [address] [place] [address] SERUM PROTEIN ELECTROPHORESI Son 05-31-2024 Albumin [Mass/Vol] 2.1 g/dL Low 3.4-5.3 [facility] Comment on above: Performed By: #### C BCA, CMP, 1833-07, , FEPR, 6-4, 2283-8, 2132-03, TSHR #### [facility] ([id number]) [address], [address] [place] [address] ALPHA 1 GLOBULIN 0.6 g/dL High 0.1-0.4 [facility] Comment on above: Performed By: #### C BCA, CMP, 1833-07, , FEPR, 6-4, 2283-8, 2132-03, TSHR #### [facility] ([id number]) [address], [address] [place] [address] ALPHA 2 GLOBULIN 0.8 g/dL Normal 0.4-1.1 [facility] Comment on above: Performed By: #### C BCA, CMP, 1833-07, , FEPR, 6-4, 2283-8, 2132-03, TSHR #### [facility] ([id number]) [address], [address] [place] [address] BETA GLOBULIN 0.8 g/dL Normal 0.5-1.2 [facility] Comment on above: Performed By: #### C BCA, CMP, 1833-07, , FEPR, 2276-4, 2283-8, 2132-03, TSHR #### [facility] ([id number]) [address], [address] [place] [address] GAMMA GLOBULIN 0.9 g/dL Normal 0.5-1.6 [facility] Comment on above: Performed By: #### C BCA, CMP, 1833-, , FEPR, 6-4, 8, 2132-03, TSHR #### [facility] ([id number]) [address], [address] [place] [address] PROT. ELECTROPHORESIS INTERP SEE SEPARATE REPORT Normal [facility] Comment on above: Performed By: #### C BCA, CMP, 1833-, , FEPR, 2275-4, 2284-02, 2132-03, TSHR #### [facility] ([id number]) [address] [place] [address] Protein [Mass/Vol] 5.2 g/dL Low 6.0-8.0 [facility] Comment on above: Performed By: #### C BCA, CMP, 1833-07, , FEPR, 2275-4, 2284-02, 2132-03, TSHR #### [facility] ([id number]) [address] [place] [address] SODIUMon 05-31-2024 Sodium [Moles/Vol] 128 mmol/L Low 134-146 [facility] Comment on above: Performed By: #### C BCA, CMP, 1833-07, , FEPR, 6-4, 8, 2132-03, TSHR #### [facility] ([id number]) [address] [place] [address] Sodium [Moles/Vol] 132 mmol/L Low 134-146 [facility] Comment on above: Performed By: #### 1 9123-9 #### [facility] ([id number]) [address] [place] [address] Sodium [Moles/Vol] 135 mmol/L Normal 134-146 [facility] Comment on above: Performed By: #### 1 9123-9 #### [facility] ([id number]) [address] [place] [address] Sodium [Moles/Vol] 134 mmol/L Normal 134-146 [facility] Comment on above: Performed By: #### 1 9123-9 #### [facility] ([id number]) [address] [place] [address] Sodium [Moles/Vol] 133 mmol/L Low 134-146 [facility] Comment on above: Performed By: #### C BCA, CMP, 1833-, , FEPR, 6-4, 2283-8, 2132-03, TSHR #### [facility] ([id number]) [address] [place] [address] Sodium [Moles/Vol] 129 mmol/L Low 134-146 [facility] Comment on above: Performed By: #### C BCA, CMP, 1833-, , FEPR, 6-4, 2283-8, 2132-03, TSHR #### [facility] ([id number]) [address] [place] [address] URINE SODIUM,RANDOMon 2023 Sodium (U) [Moles/Vol] 48 mmol/L Normal [facility] Comment on above: Performed By: #### 1 9123-9 #### [facility] ([id number]) [address] [place] [address] CBC AND AUTO DIFFon 05-30-20 24 ABSOLUTE BASOPHIL 0.0 X10E9/L Normal 0.0-0.2 [facility] Comment on above: Performed By: #### C BCA, CMP, 1833-, , FEPR, 2276-4, 2283-8, 2132-03, TSHR #### [facility] ([id number]) [address] [place] [address] ABSOLUTE NEUTROPHIL 8.7 X10E9/L High 1.5-6.6 [facility] Comment on above: Performed By: #### C BCA, CMP, 1833-, , FEPR, 2276-4, 2283-8, 2132-03, TSHR #### [facility] ([id number]) [address] [place] [address] Basophils/100 WBC (Bld) 0.1 % Normal [facility] Comment on above: Performed By: #### C BCA, CMP, 1833-07, , FEPR, 6-4, 2283-8, 2132-03, TSHR #### [facility] ([id number]) [address] [place] [address] Eosinophils (Bld) [#/Vol] 0.1 10*3/uL Normal 0.0-0.4 [facility] Comment on above: Performed By: #### C BCA, CMP, 1833-07, , FEPR, 6-4, 2283-8, 2132-03, TSHR #### [facility] ([id number]) [address] [place] [address] Eosinophils/100 WBC (Bld) 0.6 % Normal [facility] Comment on above: Performed By: #### C BCA, CMP, 1833-, , FEPR, 2276-4, 4-8, 2132-03, TSHR #### [facility] ([id number]) [address], [address] [place] [address] Erythrocyte distribution width (RBC) [Ratio] 15.4 % High 11.5-15.0 [facility] Comment on above: Performed By: #### C BCA, CMP, 1833-, 58388-6, FEPR, 2276-4, 4-8, 9, TSHR #### [facility] ([id number]) [address], [address] [place] [address] Hematocrit (Bld) [Volume fraction] 21.0 % Low 39-49 [facility] Comment on above: Performed By: #### C BCA, CMP, 1833-07, , FEPR, 2276-4, 2283-8, 2132-03, TSHR #### [facility] ([id number]) [address], [address] [place] [address] Hemoglobin (Bld) [Mass/Vol] 7.2 g/dL Low 13.0-17.0 [facility] Comment on above: Performed By: #### C BCA, CMP, 1833-07, , FEPR, 2276-4, 2283-8, 2132-03, TSHR #### [facility] ([id number]) [address] [place] [address] Lymphocytes (Bld) [#/Vol] 0.4 10*3/uL Low 1.0-3.5 [facility] Comment on above: Performed By: #### C BCA, CMP, 1833-07, , FEPR, 2276-4, 2283-8, 2132-03, TSHR #### [facility] ([id number]) [address] [place] [address] Lymphocytes/100 WBC (Bld) 4.2 % Normal [facility] Comment on above: Performed By: #### C BCA, CMP, 1833-, 89818-2, FEPR, 2276-4, 2284-8, 2132-03, TSHR #### [facility] ([id number]) [address] [place] [address] MCH (RBC) [Entitic mass] 31.3 pg Normal 27-34 [facility] Comment on above: Performed By: #### C BCA, CMP, 1833-, , FEPR, 6-4, 2283-8, 2132-03, TSHR #### [facility] ([id number]) [address], [address] [place] [address] MCHC (RBC) [Mass/Vol] 34.3 g/dL Normal 32-36 [facility] Comment on above: Performed By: #### C BCA, CMP, 1833-07, , FEPR, 6-4, 2283-8, 2132-03, TSHR #### [facility] ([id number]) [address], [address] [place] [address] MCV (RBC) [Entitic vol] 91 fL Normal 80-100 [facility] Comment on above: Performed By: #### C BCA, CMP, 1833-07, , FEPR, 2275-4, 2283-8, 2132-03, TSHR #### [facility] ([id number]) [address], [address] [place] [address] Monocytes (Bld) [#/Vol] 1.3 10*3/uL High 0-0.9 [facility] Comment on above: Performed By: #### C BCA, CMP, 1833-07, , FEPR, 6-4, 2283-8, 2132-03, TSHR #### [facility] ([id number]) [address] [place] [address] Monocytes/100 WBC (Bld) 12.0 % Normal [facility] Comment on above: Performed By: #### C BCA, CMP, 1833-07, 25796-0, FEPR, 2276-4, 2284-8, 2131-9, TSHR #### [facility] ([id number]) [address], [facility] [address] [place] [address] Neutrophils/100 WBC (Bld) 83.1 % Normal [facility] Comment on above: Performed By: #### C BCA, CMP, 1833-, 46785-2, FEPR, 2276-4, 2284-8, 9, TSHR #### [facility] ([id number]) [address], [facility] [address] [place] [address] Platelet mean volume (Bld) [Entitic vol] 7.7 fL Normal 7-12 [facility] Comment on above: Performed By: #### C BCA, CMP, 1833-, , FEPR, 6-4, 2283-8, 2132-03, TSHR #### [facility] ([id number]) [address] [address] Platelets (Bld) [#/Vol] 218 10*3/uL Normal 150-450 [facility] Comment on above: Performed By: #### C BCA, CMP, 1833-, , FEPR, 2276-4, 4-8, 2131-, TSHR #### [facility] ([id number]) [address], [facility] [address] [place] [address] RBC COUNT 2.31 X10E12/L Low 4.10-5.70 [facility] Comment on above: Performed By: #### C BCA, CMP, 1833-, 34261-1, FEPR, 2276-4, 2284-8, 2131-9, TSHR #### [facility] ([id number]) [address], [facility] [address] [place] [address] WBC (Bld) [#/Vol] 10.5 10*3/uL Normal 4.0-11.0 [facility] Comment on above: Performed By: #### C BCA, CMP, 1834-1, 31261-9, FEPR, 2276-4, 2284-8, 2131-9, TSHR #### [facility] ([id number]) [address] [place] [address] COMPREHENSIVE METABOLIC PANE Zoran 05-30-2024 Albumin [Mass/Vol] 2.6 g/dL Low 3.2-5.3 [facility] Comment on above: Performed By: #### C BCA, CMP, 1834-1, 93042-0, FEPR, 2276-4, 2284-8, 2132-03, TSHR #### [facility] ([id number]) [address] [place] [address] ALP [Catalytic activity/Vol] 211 U/L High 39-130 [facility] Comment on above: Performed By: #### C BCA, CMP, 1834-1, 27085-3, FEPR, 2276-4, 2284-8, 2132-03, TSHR #### [facility] ([id number]) [address], [address] [place] [address] ALT [Catalytic activity/Vol] 135 U/L High 0-40 [facility] Comment on above: Performed By: #### C BCA, CMP, 1834-1, 24611-5, FEPR, 2276-4, 2284-8, 9, TSHR #### [facility] ([id number]) [address] [place] [address] Anion gap [Moles/Vol] 8 mmol/L Normal 5-15 [facility] Comment on above: Performed By: #### C BCA, CMP, 1834-1, 67695-7, FEPR, 2276-4, 2284-8, 2131-9, TSHR #### [facility] ([id number]) [address], [address] [place] [address] AST [Catalytic activity/Vol] 173 U/L High 0-41 [facility] Comment on above: Performed By: #### C BCA, CMP, 1833-1, 55451-0, FEPR, 2276-4, 2284-8, 2131-9, TSHR #### [facility] ([id number]) [address], [address] [place] [address] Bilirubin [Mass/Vol] 1.6 mg/dL High 0.3-1.2 [facility] Comment on above: Performed By: #### C BCA, CMP, 1833-, , FEPR, 2276-4, 2284-8, 2132-03, TSHR #### [facility] ([id number]) [address], [address] [place] [address] Calcium [Mass/Vol] 8.6 mg/dL Normal 8.5-10.5 [facility] Comment on above: Performed By: #### C BCA, CMP, 1833-07, , FEPR, 2276-4, 2284-8, 2132-03, TSHR #### [facility] ([id number]) [address] [place] [address] Chloride [Moles/Vol] 93 mmol/L Low 98-109 [facility] Comment on above: Performed By: #### C BCA, CMP, 1833-, , FEPR, 2276-4, 2284-8, 9, TSHR #### [facility] ([id number]) [address] [place] [address] CO2 [Moles/Vol] 27 mmol/L Normal 22-32 [facility] Comment on above: Performed By: #### C BCA, CMP, 1833-, 21290-8, FEPR, 2276-4, 2284-8, 2132-9, TSHR #### [facility] ([id number]) [address] [place] [address] Creatinine [Mass/Vol] 1.61 mg/dL High 0.60-1.30 [facility] Comment on above: Result Comment: METH OD TRACEABLE TO IDMS STANDARD Performed By: #### C BCA, CMP, 1833-, 99346-0, FEPR, 2276-4, 2283-8, 2132-03, TSHR #### [facility] ([id number]) [address] [place] [address] GFR/1.73 sq M.predicted among non-blacks MDRD (S/P/Bld) [Vol rate/Area] 42 mL/min/{1.73_m2} Low >59 [facility] Comment on above: Result Comment: Reported eGFR is based on the CKD-EPI 2020 equation that does not use a race coefficient. Performed By: #### C BCA, CMP, 1833-07, , FEPR, 2276-4, 2283-8, 2132-03, TSHR #### [facility] ([id number]) [address] [place] [address] Glucose [Mass/Vol] 119 mg/dL High 65-99 [facility] Comment on above: Performed By: #### C BCA, CMP, 1833-07, , FEPR, 2276-4, 2283-8, 2132-03, TSHR #### [facility] ([id number]) [address] [place] [address] Potassium [Moles/Vol] 4.0 mmol/L Normal 3.5-5.0 [facility] Comment on above: Performed By: #### C BCA, CMP, 1833-, 84780-0, FEPR, 2276-4, 2284-8, 2132-03, TSHR #### [facility] ([id number]) [address] [place] [address] Protein [Mass/Vol] 5.6 g/dL Low 6.0-8.0 [facility] Comment on above: Performed By: #### C BCA, CMP, 1833-1, 42482-4, FEPR, 2276-4, 2283-8, 9, TSHR #### [facility] ([id number]) [address] [place] [address] Sodium [Moles/Vol] 128 mmol/L Low 134-146 [facility] Comment on above: Performed By: #### C BCA, CMP, 1833-, , FEPR, 2276-4, 2283-8, 2132-03, TSHR #### [facility] ([id number]) [address] [place] [address] Urea nitrogen [Mass/Vol] 45 mg/dL High 5-27 [facility] Comment on above: Performed By: #### C BCA, CMP, 1833-, 01614-4, FEPR, 6-4, 2283-8, 2132-03, TSHR #### [facility] ([id number]) [address] [place] [address] Glucose Glucometer (BldC) [M ass/Vol]on 05-30-2024 Glucose [Mass/Vol] 147 mg/dL High 65-99 [facility] HGB AND HCTon 05-30-2024 Hematocrit (Bld) [Volume fraction] 23.3 % Low 39-49 [facility] Comment on above: Performed By: #### C BCA, CMP, 1833-, 08454-8, FEPR, 2276-4, 2283-8, 2132-03, TSHR #### [facility] ([id number]) [address] [place] [address] Hemoglobin (Bld) [Mass/Vol] 8.1 g/dL Low 13.0-17.0 [facility] Comment on above: Performed By: #### C BCA, CMP, 1833-, 71387-2, FEPR, 2276-4, 2284-8, 2132-03, TSHR #### [facility] ([id number]) [address] [place] [address] MAGNESIUMon 05-30-2024 Magnesium [Mass/Vol] 2.1 mg/dL Normal 1.8-2.6 [facility] Comment on above: Performed By: #### C BCA, CMP, 1833-07, , FEPR, 2276-4, 228-8, 2132-03, TSHR #### [facility] ([id number]) [address] [place] [address] Magnesium [Mass/Vol] 1.7 mg/dL Low 1.8-2.6 [facility] Comment on above: Performed By: #### C BCA, CMP, 1833-07, , FEPR, 2276-4, 2283-8, 2132-03, TSHR #### [facility] ([id number]) [address] [place] [address] Osmolality (U) [Osmolality]o n 05-30-2024 URINE OSMOLALITY 559 mOsm/kg H2 Normal 300-1300 [facility] Comment on above: Performed By: #### C BCA, CMP, 1833-07, 23554-0, FEPR, 2276-4, 228-8, 2132-03, TSHR #### [facility] ([id number]) [address] [place] [address] PHOSPHORUSon 05-30-2024 Phosphate [Mass/Vol] 2.6 mg/dL Normal 2.4-4.9 [facility] Comment on above: Performed By: #### C BCA, CMP, 1833-07, 54125-2, FEPR, 2276-4, 228-8, 2132-03, TSHR #### [facility] ([id number]) [address] [place] [address] PROTIME AND INRon 05-30-2024 INR Coag (PPP) [Relative time] 1.3 {INR} High 0.8-1.1 [facility] Comment on above: Performed By: #### C BCA, CMP, 1833-, 29100-0, FEPR, 2275-4, 8, 2132-03, TSHR #### [facility] ([id number]) [address] [place] [address] PT Coag (PPP) [Time] 14.5 s High 9.8-13.2 [facility] Comment on above: Performed By: #### C BCA, CMP, 1833-07, , FEPR, 2275-10, 2284-02, 2132-03, TSHR #### [facility] ([id number]) [address] [place] [address] SODIUMon 05-30-2024 Sodium [Moles/Vol] 126 mmol/L Low 134-146 [facility] Comment on above: Performed By: #### C BCA, CMP, 1833-07, , FEPR, 2275-4, 2284-02, 2132-03, TSHR #### [facility] ([id number]) [address] [place] [address] Sodium [Moles/Vol] 125 mmol/L Low 134-146 [facility] Comment on above: Performed By: #### C BCA, CMP, 1833-, , FEPR, 2275-4, 2284-02, 2132-03, TSHR #### [facility] ([id number]) [address] [place] [address] Sodium [Moles/Vol] 127 mmol/L Low 134-146 [facility] Comment on above: Performed By: #### C BCA, CMP, 1833-1, 87590-7, FEPR, 6-4, 2283-8, 2132-03, TSHR #### [facility] ([id number]) [address] [place] [address] URINE SODIUM,RANDOMon 2023 Sodium (U) [Moles/Vol] 31 mmol/L Normal [facility] Comment on above: Performed By: #### C BCA, CMP, 1833-, 30263-0, FEPR, 6-4, 2283-8, 2132-03, TSHR #### [facility] ([id number]) [address] [place] [address] CBC AND AUTO DIFFon 05-29-20 24 ABSOLUTE BASOPHIL 0.0 X10E9/L Normal 0.0-0.2 [facility] Comment on above: Performed By: #### C BCA, CMP, 1833-07, 57003-6, FEPR, 2275-4, 2284-02, 2132-03, TSHR #### [facility] ([id number]) [address], [address] [place] [address] ABSOLUTE NEUTROPHIL 7.9 X10E9/L High 1.5-6.6 [facility] Comment on above: Performed By: #### C BCA, CMP, 1833-, 93026-1, FEPR, 2275-4, 2283-8, 2132-03, TSHR #### [facility] ([id number]) [address] [place] [address] Basophils/100 WBC (Bld) 0.1 % Normal [facility] Comment on above: Performed By: #### C BCA, CMP, 1833-, 94554-4, FEPR, 6-4, 2283-8, 2132-03, TSHR #### [facility] ([id number]) [address] [place] [address] Eosinophils (Bld) [#/Vol] 0.0 10*3/uL Normal 0.0-0.4 [facility] Comment on above: Performed By: #### C BCA, CMP, 1833-, 36047-3, FEPR, 2276-4, 2284-8, 9, TSHR #### [facility] ([id number]) [address] [place] [address] Eosinophils/100 WBC (Bld) 0.3 % Normal [facility] Comment on above: Performed By: #### C BCA, CMP, 1833-, , FEPR, 2276-4, 2283-8, 2132-03, TSHR #### [facility] ([id number]) [address] [address] Erythrocyte distribution width (RBC) [Ratio] 15.2 % High 11.5-15.0 [facility] Comment on above: Performed By: #### C BCA, CMP, 1833-07, , FEPR, 6-4, 2283-8, 2132-03, TSHR #### [facility] ([id number]) [address] [place] [address] Hematocrit (Bld) [Volume fraction] 21.1 % Low 39-49 [facility] Comment on above: Performed By: #### C BCA, CMP, 1833-, 51935-4, FEPR, 2276-4, 2284-8, 2132-03, TSHR #### [facility] ([id number]) [address] [place] [address] Hemoglobin (Bld) [Mass/Vol] 7.4 g/dL Low 13.0-17.0 [facility] Comment on above: Performed By: #### C BCA, CMP, 1833-, , FEPR, 2276-4, 2283-8, 2132-03, TSHR #### [facility] ([id number]) [address] [place] [address] Lymphocytes (Bld) [#/Vol] 0.4 10*3/uL Low 1.0-3.5 [facility] Comment on above: Performed By: #### C BCA, CMP, 1833-, , FEPR, 2276-4, 2283-8, 2132-03, TSHR #### [facility] ([id number]) [address] [address] Lymphocytes/100 WBC (Bld) 3.7 % Normal [facility] Comment on above: Performed By: #### C BCA, CMP, 1833-07, , FEPR, 6-4, 2283-8, 2132-03, TSHR #### [facility] ([id number]) [address], [facility] [address] [place] [address] MCH (RBC) [Entitic mass] 31.8 pg Normal 27-34 [facility] Comment on above: Performed By: #### C BCA, CMP, 1833-07, , FEPR, 6-4, 2283-8, 2132-03, TSHR #### [facility] ([id number]) [address], [facility] [address] [place] [address] MCHC (RBC) [Mass/Vol] 35.0 g/dL Normal 32-36 [facility] Comment on above: Performed By: #### C BCA, CMP, 1833-, , FEPR, 2276-4, 2283-8, 2131-, TSHR #### [facility] ([id number]) [address] [place] [address] MCV (RBC) [Entitic vol] 91 fL Normal 80-100 [facility] Comment on above: Performed By: #### C BCA, CMP, 1833-, 27223-5, FEPR, 2276-4, 2284-8, 2131-9, TSHR #### [facility] ([id number]) [address] [place] [address] Monocytes (Bld) [#/Vol] 1.2 10*3/uL High 0-0.9 [facility] Comment on above: Performed By: #### C BCA, CMP, 1833-, 12479-1, FEPR, 2276-4, 2284-8, 2131-9, TSHR #### [facility] ([id number]) [address] [place] [address] Monocytes/100 WBC (Bld) 12.5 % Normal [facility] Comment on above: Performed By: #### C BCA, CMP, 1833-, , FEPR, 2276-4, 2284-8, 2131-9, TSHR #### [facility] ([id number]) [address], [address] [place] [address] Neutrophils/100 WBC (Bld) 83.4 % Normal [facility] Comment on above: Performed By: #### C BCA, CMP, 1833-, 85937-1, FEPR, 2276-4, 2284-8, 2131-9, TSHR #### [facility] ([id number]) [address] [place] [address] Platelet mean volume (Bld) [Entitic vol] 7.7 fL Normal 7-12 [facility] Comment on above: Performed By: #### C BCA, CMP, 1833-, 41599-6, FEPR, 2276-4, 2284-8, 2132-9, TSHR #### [facility] ([id number]) [address] [place] [address] Platelets (Bld) [#/Vol] 220 10*3/uL Normal 150-450 [facility] Comment on above: Performed By: #### C BCA, CMP, 1833-1, 45351-8, FEPR, 2276-4, 2284-8, 9, TSHR #### [facility] ([id number]) [address] [place] [address] RBC COUNT 2.33 X10E12/L Low 4.10-5.70 [facility] Comment on above: Performed By: #### C BCA, CMP, 1833-, , FEPR, 2276-4, 2283-8, 2132-03, TSHR #### [facility] ([id number]) [address] [place] [address] WBC (Bld) [#/Vol] 9.5 10*3/uL Normal 4.0-11.0 [facility] Comment on above: Performed By: #### C BCA, CMP, 1833-07, , FEPR, 2276-4, 2283-8, 2132-03, TSHR #### [facility] ([id number]) [address] [place] [address] COMPREHENSIVE METABOLIC PANE Zoran 05-29-2024 Albumin [Mass/Vol] 2.8 g/dL Low 3.2-5.3 [facility] Comment on above: Performed By: #### C BCA, CMP, 1833-, , FEPR, 2276-4, 2283-8, 2132-03, TSHR #### [facility] ([id number]) [address] [place] [address] ALP [Catalytic activity/Vol] 209 U/L High 39-130 [facility] Comment on above: Performed By: #### C BCA, CMP, 1833-, 62859-2, FEPR, 2276-4, 2284-8, 2131-9, TSHR #### [facility] ([id number]) [address] [place] [address] ALT [Catalytic activity/Vol] 150 U/L High 0-40 [facility] Comment on above: Performed By: #### C BCA, CMP, 1833-, 81618-8, FEPR, 2276-4, 2284-8, 2131-9, TSHR #### [facility] ([id number]) [address] [place] [address] Anion gap [Moles/Vol] 11 mmol/L Normal 5-15 [facility] Comment on above: Performed By: #### C BCA, CMP, 1833-, , FEPR, 2276-4, 2284-8, 2131-9, TSHR #### [facility] ([id number]) [address] [place] [address] AST [Catalytic activity/Vol] 221 U/L High 0-41 [facility] Comment on above: Performed By: #### C BCA, CMP, 1833-, , FEPR, 2276-4, 2284-8, 2131-9, TSHR #### [facility] ([id number]) [address] [place] [address] Bilirubin [Mass/Vol] 1.7 mg/dL High 0.3-1.2 [facility] Comment on above: Performed By: #### C BCA, CMP, 1833-, 52922-7, FEPR, 2276-4, 2284-8, 2131-9, TSHR #### [facility] ([id number]) [address] [place] [address] Calcium [Mass/Vol] 8.7 mg/dL Normal 8.5-10.5 [facility] Comment on above: Performed By: #### C BCA, CMP, 1833-, 74439-4, FEPR, 2276-4, 2284-8, 2132-03, TSHR #### [facility] ([id number]) [address] [place] [address] Chloride [Moles/Vol] 92 mmol/L Low 98-109 [facility] Comment on above: Performed By: #### C BCA, CMP, 1833-, 36242-1, FEPR, 2276-4, 2284-8, 2132-03, TSHR #### [facility] ([id number]) [address] [place] [address] CO2 [Moles/Vol] 24 mmol/L Normal 22-32 [facility] Comment on above: Performed By: #### C BCA, CMP, 1833-07, , FEPR, 2276-4, 2283-8, 2132-03, TSHR #### [facility] ([id number]) [address] [place] [address] Creatinine [Mass/Vol] 1.69 mg/dL High 0.60-1.30 [facility] Comment on above: Result Comment: METH OD TRACEABLE TO IDMS STANDARD Performed By: #### C BCA, CMP, 1833-07, , FEPR, 6-4, 2283-8, 2132-03, TSHR #### [facility] ([id number]) [address], [address] [place] [address] GFR/1.73 sq M.predicted among non-blacks MDRD (S/P/Bld) [Vol rate/Area] 40 mL/min/{1.73_m2} Low >59 [facility] Comment on above: Result Comment: Reported eGFR is based on the CKD-EPI 2020 equation that does not use a race coefficient. Performed By: #### C BCA, CMP, 1833-07, 95946-8, FEPR, 2276-4, 2283-8, 2132-03, TSHR #### [facility] ([id number]) [address], [address] [place] [address] Glucose [Mass/Vol] 130 mg/dL High 65-99 [facility] Comment on above: Performed By: #### C BCA, CMP, 1833-, 70334-7, FEPR, 2276-4, 2283-8, 2132-03, TSHR #### [facility] ([id number]) [address], [address] [place] [address] Potassium [Moles/Vol] 4.0 mmol/L Normal 3.5-5.0 [facility] Comment on above: Performed By: #### C BCA, CMP, 1833-, , FEPR, 6-4, 2283-8, 2132-03, TSHR #### [facility] ([id number]) [address], [address] [place] [address] Protein [Mass/Vol] 5.6 g/dL Low 6.0-8.0 [facility] Comment on above: Performed By: #### C BCA, CMP, 1833-, , FEPR, 6-4, 2283-8, 2132-03, TSHR #### [facility] ([id number]) [address], [address] [place] [address] Sodium [Moles/Vol] 127 mmol/L Low 134-146 [facility] Comment on above: Performed By: #### C BCA, CMP, 1833-, 84556-1, FEPR, 2276-4, 2283-8, 2132-03, TSHR #### [facility] ([id number]) [address], [address] [place] [address] Urea nitrogen [Mass/Vol] 51 mg/dL High 5-27 [facility] Comment on above: Performed By: #### C BCA, CMP, 4-1, 47733-8, FEPR, 2276-4, 2284-8, 2131-9, TSHR #### [facility] ([id number]) [address], [address] [place] [address] HGB AND HCTon 05-29-2024 Hematocrit (Bld) [Volume fraction] 21.1 % Low 39-49 [facility] Comment on above: Performed By: #### C BCA, CMP, 1833-, 40599-2, FEPR, 2276-4, 2284-8, 2132-03, TSHR #### [facility] ([id number]) [address], [address] [place] [address] Hemoglobin (Bld) [Mass/Vol] 7.3 g/dL Low 13.0-17.0 [facility] Comment on above: Performed By: #### C BCA, CMP, 1833-07, , FEPR, 2276-4, 2284-8, 2132-03, TSHR #### [facility] ([id number]) [address], [address] [place] [address] Hematocrit (Bld) [Volume fraction] 21.6 % Low 39-49 [facility] Comment on above: Performed By: #### C BCA, CMP, 1833-, 27632-7, FEPR, 2276-4, 2284-8, 2132-03, TSHR #### [facility] ([id number]) [address], [address] [place] [address] Hemoglobin (Bld) [Mass/Vol] 7.5 g/dL Low 13.0-17.0 [facility] Comment on above: Performed By: #### C BCA, CMP, 1833-, 71139-0, FEPR, 2276-4, 2284-8, 2131-9, TSHR #### [facility] ([id number]) [address], [address] [place] [address] MAGNESIUMon 05-29-2024 Magnesium [Mass/Vol] 1.9 mg/dL Normal 1.8-2.6 [facility] Comment on above: Performed By: #### C BCA, CMP, 1834-1, 39557-7, FEPR, 2276-4, 2284-8, 2132-9, TSHR #### [facility] ([id number]) [address] [facility], [address] [place] [address] MR ABDOMEN W WO CONTon 05-29 MR ABDOMEN W WO CONT MR ABDOMEN W WO CON T MR ABDOMEN W WO CONT HISTORY: Liver mass, history of bladder cancer COMPARISON: CT abdomen and pelvis 05/25/2024, ultrasound abdomen 05/26/2024 TECHNIQUE: Multiplanar, multisequence MR imaging of the abdomen was performed with and without intravenous contrast. FINDINGS: LIVER: Noncirrhotic morphology of liver. Numerous diffusion restricting masses throughout the liver involving all hepatic lobes. The largest mass replaces the majority of the inferior right hepatic lobe and measures 15.0 x 12.5 cm (1051/55). Segment 3 lesion measures 2.2 cm (1051/37). There are multifocal areas of tumor necrosis. Large area of tumor necrosis in the caudate lobe measuring up to 5.9 cm. Fat-containing mass in the right hepatic lobe measuring 3.9 x 3.5 cm (6/64) is within the dominant right inferior lobe lesion. Masses are predominantly isoenhancing with washout on delayed imaging with delayed rim enhancement. No evidence of tumor thrombus in the portal venous system. Tumor replacing approximately 40% of the hepatic parenchyma. GALLBLADDER: No gallstones or other abnormalities. BILIARY: No ductal dilatation or filling defect. PANCREAS: No mass or ductal dilatation. SPLEEN: No splenomegaly. ADRENAL GLANDS: No nodules. KIDNEYS: Mild right renal collecting system dilatation. Percutaneous nephrostomy catheter terminates in a posterior calyx. Benign bilateral renal cysts. No left renal collecting system dilatation. BOWEL: Similar distention of the transverse colon and several loops of small bowel. PERITONEUM/RETROPERITO NEUM: Trace perihepatic ascites. Mesenteric edema. LYMPH NODES: No abnormally enlarged lymph nodes. VESSELS: The abdominal aorta is normal in course and caliber. The celiac and SMA are patent. Atheromatous vascular calcifications in the abdominal aorta. The hepatic veins, portal vein, splenic vein, and SMV are patent BONES AND SOFT TISSUES: Gynecomastia. No aggressive osseous lesions identified. LOWER CHEST: Lung bases clear. IMPRESSION: 1. Numerous liver masses replacing approximately 40% of the hepatic parenchyma and involving all hepatic lobes. Dominant mass is in the inferior right hepatic lobe and measures up to 15 cm. Primary differential favors metastases versus multifocal hepatocellular carcinoma. 2. No further evidence of metastatic disease in the upper abdomen. 3. Mild right renal collecting system dilatation. Percutaneous nephrostomy catheter terminates in a posterior calyx. 4. Small bilateral pleural effusions with associated atelectasis. Finalized by Darwin Noriega MD on 05/29/2024 9:32 PM Normal [facility] Osmolality (U) [Osmolality]o n 05-29-2024 URINE OSMOLALITY 375 mOsm/kg H2 Normal 300-1300 [facility] Comment on above: Performed By: #### C SAURABH ABDI, 1833-07, , FEPR, 2276-4, 2284-8, 2132-03, TSHR #### [facility] ([id number]) [address], [address] [place] [address] Osmolality [Osmolality]on OSMOLALITY 275 mOsm/kg H2 Low 280-300 [facility] Comment on above: Performed By: #### C SAURABH ABDI, 1833-07, , FEPR, 2276-4, 2284-8, 2132-03, TSHR #### [facility] ([id number]) [address], [address] [place] [address] PROTIME AND INRon 05-29-2024 INR Coag (PPP) [Relative time] 1.2 {INR} High 0.8-1.1 [facility] Comment on above: Performed By: #### C JIN, CMP, 1833-07, 14316-5, FEPR, 2276-4, 2284-8, 2132-03, TSHR #### [facility] ([id number]) [address], [address] [place] [address] PT Coag (PPP) [Time] 14.3 s High 9.8-13.2 [facility] Comment on above: Performed By: #### C BCA, CMP, 1833-, 35721-6, FEPR, 2276-4, 2284-8, 2132-03, TSHR #### [facility] ([id number]) [address], [address] [place] [address] SODIUMon 05-29-2024 Sodium [Moles/Vol] 127 mmol/L Low 134-146 [facility] Comment on above: Performed By: #### C BCA, CMP, 1833-07, , FEPR, 2276-4, 4-8, 2132-03, TSHR #### [facility] ([id number]) [address], [address] [place] [address] Sodium [Moles/Vol] 126 mmol/L Low 134-146 [facility] Comment on above: Performed By: #### C BCA, CMP, 1833-07, , FEPR, 6-4, 4-8, 2132-03, TSHR #### [facility] ([id number]) [address], [address] [place] [address] Sodium [Moles/Vol] 126 mmol/L Low 134-146 [facility] Comment on above: Performed By: #### C BCA, CMP, 1833-07, , FEPR, 2276-4, 2284-8, 2132-03, TSHR #### [facility] ([id number]) [address] [place] [address] Sodium [Moles/Vol] 125 mmol/L Low 134-146 [facility] Comment on above: Performed By: #### C BCA, CMP, 1833-07, , FEPR, 2276-4, 2284-8, 2132-03, TSHR #### [facility] ([id number]) [address], [address] [place] [address] Sodium [Moles/Vol] 126 mmol/L Low 134-146 [facility] Comment on above: Performed By: #### C BCA, CMP, 1833-, 72704-6, FEPR, 2275-4, 2283-8, 2132-03, TSHR #### [facility] ([id number]) [address], [address] [place] [address] URINE SODIUM,RANDOMon 2023 Sodium (U) [Moles/Vol] 88 mmol/L Normal [facility] Comment on above: Performed By: #### C BCA, CMP, 1833-, 44798-7, FEPR, 2275-4, 2284-02, 2132-03, TSHR #### [facility] ([id number]) [address], [address] [place] [address] CBC AND AUTO DIFFon 05-28-20 24 ABSOLUTE BASOPHIL 0.0 X10E9/L Normal 0.0-0.2 [facility] Comment on above: Performed By: #### C BCA, CMP, 1833-, 61523-0, FEPR, 2275-4, 2284-02, 2132-03, TSHR #### [facility] ([id number]) [address], [address] [place] [address] ABSOLUTE NEUTROPHIL 8.2 X10E9/L High 1.5-6.6 [facility] Comment on above: Performed By: #### C BCA, CMP, 1833-, 11670-6, FEPR, 2275-4, 2284-02, 2132-03, TSHR #### [facility] ([id number]) [address], [address] [place] [address] Basophils/100 WBC (Bld) 0.2 % Normal [facility] Comment on above: Performed By: #### C BCA, CMP, 1833-, , FEPR, 2276-4, 2284-8, 2132-03, TSHR #### [facility] ([id number]) [address], [address] [place] [address] Eosinophils (Bld) [#/Vol] 0.0 10*3/uL Normal 0.0-0.4 [facility] Comment on above: Performed By: #### C BCA, CMP, 1833-, , FEPR, 2276-4, 2283-8, 2132-03, TSHR #### [facility] ([id number]) [address], [address] [place] [address] Eosinophils/100 WBC (Bld) 0.2 % Normal [facility] Comment on above: Performed By: #### C BCA, CMP, 1833-07, , FEPR, 2276-4, 2283-8, 2132-03, TSHR #### [facility] ([id number]) [address], [address] [place] [address] Erythrocyte distribution width (RBC) [Ratio] 14.9 % Normal 11.5-15.0 [facility] Comment on above: Performed By: #### C BCA, CMP, 1833-07, , FEPR, 2276-4, 2283-8, 2132-03, TSHR #### [facility] ([id number]) [address], [address] [place] [address] Hematocrit (Bld) [Volume fraction] 21.1 % Low 39-49 [facility] Comment on above: Performed By: #### C BCA, CMP, 1833-, 51617-8, FEPR, 2276-4, 2284-8, 2131-9, TSHR #### [facility] ([id number]) [address], [address] [place] [address] Hemoglobin (Bld) [Mass/Vol] 7.6 g/dL Low 13.0-17.0 [facility] Comment on above: Performed By: #### C BCA, CMP, 1833-, 27991-7, FEPR, 2276-4, 2284-8, 2131-9, TSHR #### [facility] ([id number]) [address], [address] [place] [address] Lymphocytes (Bld) [#/Vol] 0.3 10*3/uL Low 1.0-3.5 [facility] Comment on above: Performed By: #### C BCA, CMP, 1833-07, , FEPR, 2276-4, 2284-8, 2131-9, TSHR #### [facility] ([id number]) [address], [address] [place] [address] Lymphocytes/100 WBC (Bld) 3.1 % Normal [facility] Comment on above: Performed By: #### C BCA, CMP, 1833-07, , FEPR, 2276-4, 2284-8, 2132-03, TSHR #### [facility] ([id number]) [address], [address] [place] [address] MCH (RBC) [Entitic mass] 32.5 pg Normal 27-34 [facility] Comment on above: Performed By: #### C BCA, CMP, 1833-07, , FEPR, 2276-4, 2284-8, 2131-9, TSHR #### [facility] ([id number]) [address], [address] [place] [address] MCHC (RBC) [Mass/Vol] 36.0 g/dL Normal 32-36 [facility] Comment on above: Performed By: #### C BCA, CMP, 1833-, 51719-9, FEPR, 2276-4, 2284-8, 9, TSHR #### [facility] ([id number]) [address], [address] [place] [address] MCV (RBC) [Entitic vol] 90 fL Normal 80-100 [facility] Comment on above: Performed By: #### C BCA, CMP, 4-, 02574-1, FEPR, 2276-4, 2284-8, 2132-03, TSHR #### [facility] ([id number]) [address], [address] [place] [address] Monocytes (Bld) [#/Vol] 1.1 10*3/uL High 0-0.9 [facility] Comment on above: Performed By: #### C BCA, CMP, 1833-, 39979-7, FEPR, 6-4, 2283-8, 2132-03, TSHR #### [facility] ([id number]) [address], [address] [place] [address] Monocytes/100 WBC (Bld) 11.8 % Normal [facility] Comment on above: Performed By: #### C BCA, CMP, 1833-, 19394-8, FEPR, 6-4, 2283-8, 2132-03, TSHR #### [facility] ([id number]) [address], [address] [place] [address] Neutrophils/100 WBC (Bld) 84.7 % Normal [facility] Comment on above: Performed By: #### C BCA, CMP, 1833-, 86918-3, FEPR, 2276-4, 4-8, 2132-03, TSHR #### [facility] ([id number]) [address], [address] [place] [address] Platelet mean volume (Bld) [Entitic vol] 7.6 fL Normal 7-12 [facility] Comment on above: Performed By: #### C BCA, CMP, 4-1, 54816-4, FEPR, 2276-4, 2284-8, 2131-9, TSHR #### [facility] ([id number]) [address], [address] [place] [address] Platelets (Bld) [#/Vol] 206 10*3/uL Normal 150-450 [facility] Comment on above: Performed By: #### C BCA, CMP, 4-1, 67294-0, FEPR, 2276-4, 2284-8, 2131-9, TSHR #### [facility] ([id number]) [address], [address] [place] [address] RBC COUNT 2.34 X10E12/L Low 4.10-5.70 [facility] Comment on above: Performed By: #### C BCA, CMP, 1833-, 30382-4, FEPR, 2276-4, 2284-8, 2132-03, TSHR #### [facility] ([id number]) [address] [place] [address] WBC (Bld) [#/Vol] 9.7 10*3/uL Normal 4.0-11.0 [facility] Comment on above: Performed By: #### C BCA, CMP, 1833-, 23809-1, FEPR, 2276-4, 2284-8, 2132-03, TSHR #### [facility] ([id number]) [address], [address] [place] [address] COMPREHENSIVE METABOLIC PANE Zoran 05-28-2024 Albumin [Mass/Vol] 2.8 g/dL Low 3.2-5.3 [facility] Comment on above: Performed By: #### C BCA, CMP, 1833-, 67592-2, FEPR, 2276-4, 2284-8, 2131-9, TSHR #### [facility] ([id number]) [address], [address] [place] [address] ALP [Catalytic activity/Vol] 210 U/L High 39-130 [facility] Comment on above: Performed By: #### C BCA, CMP, 1833-, 20741-9, FEPR, 2276-4, 2284-8, 2131-9, TSHR #### [facility] ([id number]) [address], [address] [place] [address] ALT [Catalytic activity/Vol] 131 U/L High 0-40 [facility] Comment on above: Performed By: #### C BCA, CMP, 1833-07, , FEPR, 2276-4, 2284-8, 2132-03, TSHR #### [facility] ([id number]) [address], [address] [place] [address] Anion gap [Moles/Vol] 12 mmol/L Normal 5-15 [facility] Comment on above: Performed By: #### C BCA, CMP, 1833-07, , FEPR, 2276-4, 2284-8, 2132-03, TSHR #### [facility] ([id number]) [address], [address] [place] [address] AST [Catalytic activity/Vol] 211 U/L High 0-41 [facility] Comment on above: Performed By: #### C BCA, CMP, 1833-07, , FEPR, 2276-4, 2284-8, 2132-03, TSHR #### [facility] ([id number]) [address], [address] [place] [address] Bilirubin [Mass/Vol] 2.0 mg/dL High 0.3-1.2 [facility] Comment on above: Performed By: #### C BCA, CMP, 1833-07, 30093-7, FEPR, 2276-4, 2284-8, 2132-03, TSHR #### [facility] ([id number]) [address], [address] [place] [address] Calcium [Mass/Vol] 9.0 mg/dL Normal 8.5-10.5 [facility] Comment on above: Performed By: #### C BCA, CMP, 4-1, 65751-7, FEPR, 2276-4, 2284-8, 2132-03, TSHR #### [facility] ([id number]) [address], [address] [place] [address] Chloride [Moles/Vol] 93 mmol/L Low 98-109 [facility] Comment on above: Performed By: #### C BCA, CMP, 1833-, 68509-7, FEPR, 2276-4, 2284-8, 2132-03, TSHR #### [facility] ([id number]) [address], [address] [place] [address] CO2 [Moles/Vol] 21 mmol/L Low 22-32 [facility] Comment on above: Performed By: #### C BCA, CMP, 1833-, 38765-0, FEPR, 2276-4, 2284-8, 2132-03, TSHR #### [facility] ([id number]) [address], [address] [place] [address] Creatinine [Mass/Vol] 1.81 mg/dL High 0.60-1.30 [facility] Comment on above: Result Comment: METH OD TRACEABLE TO IDMS STANDARD Performed By: #### C BCA, CMP, 1833-, 88452-8, FEPR, 2276-4, 2284-8, 2132-03, TSHR #### [facility] ([id number]) [address] [place] [address] GFR/1.73 sq M.predicted among non-blacks MDRD (S/P/Bld) [Vol rate/Area] 37 mL/min/{1.73_m2} Low >59 [facility] Comment on above: Result Comment: Reported eGFR is based on the CKD-EPI 2020 equation that does not use a race coefficient. Performed By: #### C BCA, CMP, 1833-, 80730-0, FEPR, 2276-4, 2284-8, 2132-03, TSHR #### [facility] ([id number]) [address] [place] [address] Glucose [Mass/Vol] 127 mg/dL High 65-99 [facility] Comment on above: Performed By: #### C BCA, CMP, 1833-07, , FEPR, 2276-4, 228-8, 2132-03, TSHR #### [facility] ([id number]) [address] [place] [address] Potassium [Moles/Vol] 3.9 mmol/L Normal 3.5-5.0 [facility] Comment on above: Performed By: #### C BCA, CMP, 1833-07, , FEPR, 2276-4, 228-8, 2132-03, TSHR #### [facility] ([id number]) [address] [place] [address] Protein [Mass/Vol] 5.8 g/dL Low 6.0-8.0 [facility] Comment on above: Performed By: #### C BCA, CMP, 1833-07, , FEPR, 2276-4, 228-8, 2132-03, TSHR #### [facility] ([id number]) [address], [address] [place] [address] Sodium [Moles/Vol] 126 mmol/L Low 134-146 [facility] Comment on above: Performed By: #### C BCA, CMP, 1833-07, 51892-6, FEPR, 2276-4, 2284-8, 2132-9, TSHR #### [facility] ([id number]) [address], [address] [place] [address] Urea nitrogen [Mass/Vol] 44 mg/dL High 5-27 [facility] Comment on above: Performed By: #### C BCA, CMP, 1833-, , FEPR, 6-4, 2283-8, 2132-03, TSHR #### [facility] ([id number]) [address], [address] [place] [address] FL SWALLOW MOTILITY FUNCTION on 05-28-2024 FL SWALLOW MOTILITY FUNCTION FL SWALLOW MOTILITY FUNCTION CLINICAL INFORMATION: Oropharyngeal dysphagia. TECHNIQUE: Lateral videofluoroscopy during oral administration of one or more radiopaque diet consistencies. Reference air kerma: 0.7 mGy 8 cine runs captured. COMPARISON: None. FINDINGS: Thin: No aspiration or penetration. Applesauce: No aspiration or penetration. Fruit: No aspiration or penetration. Cracker: No aspiration or penetration. IMPRESSION: * No aspiration or penetration of tested consistencies. * See speech pathology report for dietary recommendations. Approved by Resident: uJan Bonilla DO on 05/28/2024 4:26 PM IJose D MD have personally reviewed the image(s) and agree with and/or edited the report Finalized by Jose D Santiago MD on 05/28/2024 4:35 PM Normal [facility] HGB AND HCTon 05-28-2024 Hematocrit (Bld) [Volume fraction] 22.3 % Low 39-49 [facility] Comment on above: Performed By: #### C BCA, CMP, 1833-07, , FEPR, 6-4, 2283-8, 2132-03, TSHR #### [facility] ([id number]) [address], [address] [place] [address] Hemoglobin (Bld) [Mass/Vol] 7.7 g/dL Low 13.0-17.0 [facility] Comment on above: Performed By: #### C BCA, CMP, 1833-07, , FEPR, 2276-4, 2284-8, 2132-03, TSHR #### [facility] ([id number]) [address] [place] [address] MAGNESIUMon 05-28-2024 Magnesium [Mass/Vol] 1.7 mg/dL Low 1.8-2.6 [facility] Comment on above: Performed By: #### C JIN, SAURABH, 1833-07, , FEPR, 2276-4, 4-8, 2132-03, TSHR #### [facility] ([id number]) [address] [place] [address] Osmolality [Osmolality]on OSMOLALITY 273 mOsm/kg H2 Low 280-300 [facility] Comment on above: Performed By: #### C JIN, SAURABH, 1833-07, , FEPR, 6-4, 2283-8, 2132-03, TSHR #### [facility] ([id number]) [address] [place] [address] PROTIME AND INRon 05-28-2024 INR Coag (PPP) [Relative time] 1.3 {INR} High 0.8-1.1 [facility] Comment on above: Performed By: #### C JIN, SAURABH, 1833-07, , FEPR, 6-4, 2283-8, 2132-03, TSHR #### [facility] ([id number]) [address] [place] [address] PT Coag (PPP) [Time] 14.8 s High 9.8-13.2 [facility] Comment on above: Performed By: #### C JIN, CMP, 1833-07, , FEPR, 2276-4, 2284-8, 2132-03, TSHR #### [facility] ([id number]) [address] [place] [address] SODIUMon 05-28-2024 Sodium [Moles/Vol] 127 mmol/L Low 134-146 [facility] Comment on above: Performed By: #### C BCA, CMP, 1833-1, 91732-3, FEPR, 2276-4, 2283-8, 9, TSHR #### [facility] ([id number]) [address] [place] [address] Sodium [Moles/Vol] 126 mmol/L Low 134-146 [facility] Comment on above: Performed By: #### C BCA, CMP, 1833-, , FEPR, 6-4, 2283-8, 2132-03, TSHR #### [facility] ([id number]) [address] [place] [address] Sodium [Moles/Vol] 127 mmol/L Low 134-146 [facility] Comment on above: Performed By: #### C BCA, CMP, 1833-, , FEPR, 6-4, 2283-8, 2132-03, TSHR #### [facility] ([id number]) [address] [place] [address] Sodium [Moles/Vol] 124 mmol/L Low 134-146 [facility] Comment on above: Performed By: #### C BCA, CMP, 1833-07, , FEPR, 6-4, 2283-8, 2132-03, TSHR #### [facility] ([id number]) [address], [address] [place] [address] Zinc [Mass/Vol]on 05-28-2024 Zinc, S 45 mcg/dL Low 60-106 [facility] Comment on above: Result Comment: NOTE ADDITIONAL INFORMATION This test was developed and its performance characteristics determined by [facility] in a manner consistent with CLIA requirements. This test has not been cleared or approved by the U.S. Food and Drug Administration. Test Performed by: [facility] [address] [place] [address] [place]: Terri Barahona Ph.D.; CLIA# [id number] CBC AND AUTO DIFFon 05-27-20 ABSOLUTE BASOPHIL 0.0 X10E9/L Normal 0.0-0.2 [facility] Comment on above: Performed By: #### C BCA, CMP, 1834-1, 09827-8, FEPR, 6-4, 2283-8, 2132-03, TSHR #### [facility] ([id number]) [address] [place] [address] ABSOLUTE NEUTROPHIL 8.7 X10E9/L High 1.5-6.6 [facility] Comment on above: Performed By: #### C BCA, CMP, 1833-, 32504-7, FEPR, 6-4, 2283-8, 2132-03, TSHR #### [facility] ([id number]) [address] [place] [address] Basophils/100 WBC (Bld) 0.1 % Normal [facility] Comment on above: Performed By: #### C BCA, CMP, 1833-, 46790-3, FEPR, 6-4, 2283-8, 2132-03, TSHR #### [facility] ([id number]) [address] [place] [address] Eosinophils (Bld) [#/Vol] 0.0 10*3/uL Normal 0.0-0.4 [facility] Comment on above: Performed By: #### C BCA, CMP, 1834-, 80717-1, FEPR, 2276-4, 2284-8, 9, TSHR #### [facility] ([id number]) [address] [place] [address] Eosinophils/100 WBC (Bld) 0.1 % Normal [facility] Comment on above: Performed By: #### C BCA, CMP, 1833-, 58083-4, FEPR, 2276-4, 2284-8, 9, TSHR #### [facility] ([id number]) [address], [address] [place] [address] Erythrocyte distribution width (RBC) [Ratio] 14.7 % Normal 11.5-15.0 [facility] Comment on above: Performed By: #### C BCA, CMP, 1833-, , FEPR, 2276-4, 2284-8, 2132-03, TSHR #### [facility] ([id number]) [address] [place] [address] Hematocrit (Bld) [Volume fraction] 17.4 % Low 39-49 [facility] Comment on above: Performed By: #### C BCA, CMP, 1833-, , FEPR, 2276-4, 2283-8, 2132-03, TSHR #### [facility] ([id number]) [address] [address] [place] [address] Hemoglobin (Bld) [Mass/Vol] 6.1 g/dL Critically low 13.0-17.0 [facility] Comment on above: Performed By: #### C BCA, CMP, 1833-, 02258-3, FEPR, 2276-4, 2284-8, 9, TSHR #### [facility] ([id number]) [address] [address] [place] [address] Lymphocytes (Bld) [#/Vol] 0.3 10*3/uL Low 1.0-3.5 [facility] Comment on above: Performed By: #### C BCA, CMP, 1833-, , FEPR, 2275-4, 2283-8, 2132-03, TSHR #### [facility] ([id number]) [address] [place] [address] Lymphocytes/100 WBC (Bld) 3.2 % Normal [facility] Comment on above: Performed By: #### C BCA, CMP, 1833-, , FEPR, 2275-4, 2284-02, 2132-03, TSHR #### [facility] ([id number]) [address] [place] [address] MCH (RBC) [Entitic mass] 31.6 pg Normal 27-34 [facility] Comment on above: Performed By: #### C BCA, CMP, 1833-, , FEPR, 2275-, 2284-02, 2132-03, TSHR #### [facility] ([id number]) [address] [place] [address] MCHC (RBC) [Mass/Vol] 35.3 g/dL Normal 32-36 [facility] Comment on above: Performed By: #### C BCA, CMP, 1833-, , FEPR, 2275-, 2284-02, 2132-03, TSHR #### [facility] ([id number]) [address], [address] [place] [address] MCV (RBC) [Entitic vol] 90 fL Normal 80-100 [facility] Comment on above: Performed By: #### C BCA, CMP, 1833-, , FEPR, 2275-, 2284-02, 2132-03, TSHR #### [facility] ([id number]) [address], [address] [place] [address] Monocytes (Bld) [#/Vol] 1.3 10*3/uL High 0-0.9 [facility] Comment on above: Performed By: #### C BCA, CMP, 4-, 41519-4, FEPR, 2276-4, 2284-8, 2131-9, TSHR #### [facility] ([id number]) [address], [address] [place] [address] Monocytes/100 WBC (Bld) 12.2 % Normal P [facility] Comment on above: Performed By: #### C BCA, CMP, 1833-, 74169-4, FEPR, 2276-4, 2284-8, 2131-, TSHR #### [facility] ([id number]) [address], [address] [place] [address] Neutrophils/100 WBC (Bld) 84.4 % Normal [facility] Comment on above: Performed By: #### C BCA, CMP, 1833-, , FEPR, 2276-4, 4-8, 2132-03, TSHR #### [facility] ([id number]) [address], [address] [place] [address] Platelet mean volume (Bld) [Entitic vol] 8.1 fL Normal 7-12 [facility] Comment on above: Performed By: #### C BCA, CMP, 1833-, 44111-1, FEPR, 2276-4, 2283-8, 2132-03, TSHR #### [facility] ([id number]) [address], [address] [place] [address] Platelets (Bld) [#/Vol] 211 10*3/uL Normal 150-450 [facility] Comment on above: Performed By: #### C BCA, CMP, 1833-, 05506-6, FEPR, 2276-4, 2284-8, 2131-9, TSHR #### [facility] ([id number]) [address], [address] [place] [address] RBC COUNT 1.94 X10E12/L Low 4.10-5.70 [facility] Comment on above: Performed By: #### C BCA, CMP, 1833-, 61450-8, FEPR, 2276-4, 2284-8, 9, TSHR #### [facility] ([id number]) [address], [address] [place] [address] WBC (Bld) [#/Vol] 10.4 10*3/uL Normal 4.0-11.0 [facility] Comment on above: Performed By: #### C BCA, CMP, 1833-07, , FEPR, 2276-4, 2283-8, 2132-03, TSHR #### [facility] ([id number]) [address], [address] [place] [address] COMPREHENSIVE METABOLIC PANE Zoran 05-27-2024 Albumin [Mass/Vol] 2.7 g/dL Low 3.2-5.3 [facility] Comment on above: Performed By: #### C BCA, CMP, 1833-07, , FEPR, 2276-4, 2283-8, 2132-03, TSHR #### [facility] ([id number]) [address], [address] [address] ALP [Catalytic activity/Vol] 194 U/L High 39-130 [facility] Comment on above: Performed By: #### C BCA, CMP, 1833-07, , FEPR, 2276-4, 2284-8, 9, TSHR #### [facility] ([id number]) [address], [address] [place] [address] ALT [Catalytic activity/Vol] 68 U/L High 0-40 [facility] Comment on above: Performed By: #### C BCA, CMP, 1833-, 77759-8, FEPR, 2276-4, 2284-8, 9, TSHR #### [facility] ([id number]) [address], [address] [place] [address] Anion gap [Moles/Vol] 12 mmol/L Normal 5-15 [facility] Comment on above: Performed By: #### C BCA, CMP, 1833-1, 52010-9, FEPR, 2276-4, 228-8, 9, TSHR #### [facility] ([id number]) [address], [address] [place] [address] AST [Catalytic activity/Vol] 130 U/L High 0-41 [facility] Comment on above: Performed By: #### C BCA, CMP, 1833-, 51720-5, FEPR, 6-4, 2283-8, 2132-03, TSHR #### [facility] ([id number]) [address], [address] [place] [address] Bilirubin [Mass/Vol] 1.1 mg/dL Normal 0.3-1.2 [facility] Comment on above: Performed By: #### C BCA, CMP, 1833-, 81970-6, FEPR, 6-4, 2283-8, 9, TSHR #### [facility] ([id number]) [address], [address] [place] [address] Calcium [Mass/Vol] 8.5 mg/dL Normal 8.5-10.5 [facility] Comment on above: Performed By: #### C BCA, CMP, 4-1, 95023-5, FEPR, 2276-4, 228-8, 9, TSHR #### [facility] ([id number]) [address], [address] [place] [address] Chloride [Moles/Vol] 96 mmol/L Low 98-109 [facility] Comment on above: Performed By: #### C BCA, CMP, 1833-, 87395-5, FEPR, 2276-4, 2284-8, 2132-03, TSHR #### [facility] ([id number]) [address], [address] [place] [address] CO2 [Moles/Vol] 16 mmol/L Low 22-32 [facility] Comment on above: Performed By: #### C BCA, CMP, 1833-, 75189-0, FEPR, 2276-4, 2284-8, 2132-03, TSHR #### [facility] ([id number]) [address] [facility], [address] [place] [address] Creatinine [Mass/Vol] 2.07 mg/dL High 0.60-1.30 [facility] Comment on above: Result Comment: METH OD TRACEABLE TO IDMS STANDARD Performed By: #### C BCA, CMP, 1833-07, , FEPR, 2276-4, 2283-8, 2132-03, TSHR #### [facility] ([id number]) [address] [facility], [address] [place] [address] GFR/1.73 sq M.predicted among non-blacks MDRD (S/P/Bld) [Vol rate/Area] 31 mL/min/{1.73_m2} Low >59 [facility] Comment on above: Result Comment: Reported eGFR is based on the CKD-EPI 2020 equation that does not use a race coefficient. Performed By: #### C BCA, CMP, 1833-, 57459-8, FEPR, 2276-4, 2284-8, 2132-03, TSHR #### [facility] ([id number]) [address], [address] [place] [address] Glucose [Mass/Vol] 128 mg/dL High 65-99 [facility] Comment on above: Performed By: #### C BCA, CMP, 1833-, 55254-7, FEPR, 2276-4, 2284-8, 2132-03, TSHR #### [facility] ([id number]) [address], [address] [place] [address] Potassium [Moles/Vol] 4.6 mmol/L Normal 3.5-5.0 [facility] Comment on above: Performed By: #### C BCA, CMP, 4-1, 43899-2, FEPR, 6-4, 2283-8, 2132-03, TSHR #### [facility] ([id number]) [address], [address] [place] [address] Protein [Mass/Vol] 5.4 g/dL Low 6.0-8.0 [facility] Comment on above: Performed By: #### C BCA, CMP, 1833-, 01219-1, FEPR, 6-4, 2283-8, 2132-03, TSHR #### [facility] ([id number]) [address], [address] [place] [address] Sodium [Moles/Vol] 124 mmol/L Low 134-146 [facility] Comment on above: Performed By: #### C BCA, CMP, 1833-, 26351-9, FEPR, 6-4, 2283-8, 2132-03, TSHR #### [facility] ([id number]) [address], [address] [place] [address] Urea nitrogen [Mass/Vol] 48 mg/dL High 5-27 [facility] Comment on above: Performed By: #### C BCA, CMP, 1833-, 80105-2, FEPR, 6-4, 2283-8, 2132-03, TSHR #### [facility] ([id number]) [address], [address] [place] [address] Cancer Ag 19-9 Qnon -31-20 24 CA 19 9 6.6 U/mL Normal 0.0-35.0 [facility] Comment on above: Result Comment: The method used for this test is Janae Sublimity DXI chemiluminescent immunoassay. Values obtained by different assay methods cannot be used interchangeably. Performed By: #### C BCA, CMP, 1833-1, 43435-6, FEPR, 2276-4, 2284-8, 213-9, TSHR #### [facility] ([id number]) [address], [address] [place] [address] Carcinoembryonic Ag [Mass/Vo l]on 05-27-2024 CEA 2.4 ng/mL Normal 0.0-3.0 [facility] Comment on above: Result Comment: 0.0-3.0 ng/mL FOR NON SMOKERS 0.0-5.0 ng/mL FOR SMOKERS The method used for this test is Janae Zaire DXI chemiluminescent immunoassay. Values obtained by different assay methods cannot be used interchangeably. Performed By: #### C BCA, CMP, 1833-07, 01443-2, FEPR, 2276-4, 2284-8, 2132-03, TSHR #### [facility] ([id number]) [address], [address] [place] [address] Cortisol [Mass/Vol]on 2023 CORTISOL 23.9 ug/dL Normal [facility] Comment on above: Result Comment: Due to the diurnal variation of cortisol levels in normal subjects, all cortisol measurements should be referenced to the time of day of sample collection. AM Cortisol Age>=6 6.7-22.4 ug/dL PM Cortisol Age>=6 <10 ug/dL Performed By: #### C BCA, CMP, 4-, 76423-0, FEPR, 2276-4, 2284-8, 2139, TSHR #### [facility] ([id number]) [address], [address] [place] [address] HGB AND HCTon 05-27-2024 Hematocrit (Bld) [Volume fraction] 22.4 % Low 39-49 [facility] Comment on above: Performed By: #### C BCA, CMP, 1833-, 46257-9, FEPR, 2276-4, 8, 2132-03, TSHR #### [facility] ([id number]) [address], [address] [place] [address] Hemoglobin (Bld) [Mass/Vol] 7.8 g/dL Low 13.0-17.0 [facility] Comment on above: Performed By: #### C BCA, CMP, 1833-, , FEPR, 2275-4, 2284-02, 2132-03, TSHR #### [facility] ([id number]) [address], [address] [place] [address] Hematocrit (Bld) [Volume fraction] 21.7 % Low 39-49 [facility] Comment on above: Performed By: #### C BCA, CMP, 1833-, , FEPR, 6-4, 8, 2132-03, TSHR #### [facility] ([id number]) [address], [address] [place] [address] Hemoglobin (Bld) [Mass/Vol] 7.5 g/dL Low 13.0-17.0 [facility] Comment on above: Performed By: #### C BCA, CMP, 1833-07, 97964-9, FEPR, 2275-4, 2284-02, 2132-03, TSHR #### [facility] ([id number]) [address], [address] [place] [address] MAGNESIUMon 05-27-2024 Magnesium [Mass/Vol] 2.0 mg/dL Normal 1.8-2.6 [facility] Comment on above: Performed By: #### C BCA, CMP, 1833-, 24881-6, FEPR, 2276-4, 2283-8, 2132-03, TSHR #### [facility] ([id number]) [address], [address] [place] [address] PROTIME AND INRon 05-27-2024 INR Coag (PPP) [Relative time] 1.5 {INR} High 0.8-1.1 [facility] Comment on above: Performed By: #### C BCA, CMP, 1833-07, , FEPR, 2276-4, 2283-8, 2132-03, TSHR #### [facility] ([id number]) [address], [address] [place] [address] PT Coag (PPP) [Time] 16.9 s High 9.8-13.2 [facility] Comment on above: Performed By: #### C BCA, CMP, 1833-07, , FEPR, 6-4, 2283-8, 2132-03, TSHR #### [facility] ([id number]) [address], [address] [place] [address] Parathyrin.intact [Mass/Vol] on 05-27-2024 PTH INTACT 26 pg/mL Normal 12-88 [facility] Comment on above: Performed By: #### C BCA, CMP, 1833-07, , FEPR, 2276-4, 2283-8, 2132-03, TSHR #### [facility] ([id number]) [address], [address] [place] [address] SODIUMon 05-27-2024 Sodium [Moles/Vol] 126 mmol/L Low 134-146 [facility] Comment on above: Performed By: #### C BCA, CMP, 1833-07, 30039-0, FEPR, 2276-4, 2284-8, 2132-03, TSHR #### [facility] ([id number]) [address], [address] [place] [address] Sodium [Moles/Vol] 124 mmol/L Low 134-146 [facility] Comment on above: Performed By: #### C BCA, CMP, 1833-, 50724-5, FEPR, 6-4, 2283-8, 2132-03, TSHR #### [facility] ([id number]) [address], [address] [place] [address] Sodium [Moles/Vol] 126 mmol/L Low 134-146 [facility] Comment on above: Performed By: #### C BCA, CMP, 1833-, 09791-0, FEPR, 6-4, 2283-8, 2132-03, TSHR #### [facility] ([id number]) [address], [address] [place] [address] Sodium [Moles/Vol] 125 mmol/L Low 134-146 [facility] Comment on above: Performed By: #### C BCA, CMP, 1833-07, , FEPR, 2275-4, 2283-8, 2132-03, TSHR #### [facility] ([id number]) [address], [address] [place] [address] Sodium [Moles/Vol] 124 mmol/L Low 134-146 [facility] Comment on above: Performed By: #### C BCA, CMP, 1833-, 43763-0, FEPR, 6-4, 2283-8, 2132-03, TSHR #### [facility] ([id number]) [address], [address] [place] [address] URINE CULTUREon 05-27-2024 Bacteria identified Cx Nom (U) CULTURE RESULTS 10-50,000 ORGANISMS/mL NORMAL UROGENITAL RUBY Normal [facility] Comment on above: Performed By: #### C BCA, CMP, 1834-1, 89060-1, FEPR, 2276-4, 2284-8, 2131-9, TSHR #### [facility] ([id number]) [address], [address] [place] [address] AFP [Mass/Vol]on 05-26-2024 ALPHA FETOPROTEIN 184.2 ng/mL High 0-9.9 [facility] Comment on above: Performed By: #### C BCA, CMP, 1834-1, 46160-9, FEPR, 2276-4, 2284-8, 2131-9, TSHR #### [facility] ([id number]) [address], [address] [place] [address] CBC AND AUTO DIFFon 05-26-20 24 Band form neutrophils/100 WBC (Bld) 3.0 % Normal [facility] Comment on above: Performed By: #### C BCA, CMP, 1833-, 58812-6, FEPR, 2276-4, 2284-8, 2131-9, TSHR #### [facility] ([id number]) [address], [address] [place] [address] ARIANNA 1+ Abnormal NONE [facility] Comment on above: Performed By: #### C BCA, CMP, 1833-, 38775-7, FEPR, 2276-4, 2284-8, 9, TSHR #### [facility] ([id number]) [address], [address] [place] [address] Erythrocyte distribution width (RBC) [Ratio] 14.7 % Normal 11.5-15.0 [facility] Comment on above: Performed By: #### C BCA, CMP, 1834-1, 57050-1, FEPR, 2276-4, 2284-8, 2-9, TSHR #### [facility] ([id number]) [address], [address] [place] [address] FRAGMENT 1+ Abnormal NONE [facility] Comment on above: Performed By: #### C BCA, CMP, 1833-, 11958-9, FEPR, 2276-4, 2284-8, 2131-9, TSHR #### [facility] ([id number]) [address], [address] [place] [address] Hematocrit (Bld) [Volume fraction] 20.9 % Low 39-49 [facility] Comment on above: Performed By: #### C BCA, CMP, 1833-07, , FEPR, 2276-4, 2284-8, 2132-03, TSHR #### [facility] ([id number]) [address], [address] [place] [address] Hemoglobin (Bld) [Mass/Vol] 7.1 g/dL Low 13.0-17.0 [facility] Comment on above: Performed By: #### C BCA, CMP, 1833-07, , FEPR, 2276-4, 2284-8, 2132-03, TSHR #### [facility] ([id number]) [address], [facility] [address] [place] [address] Lymphocytes (Bld) [#/Vol] 1.0 10*3/uL Normal 1.0-3.5 [facility] Comment on above: Performed By: #### C BCA, CMP, 1833-07, , FEPR, 2276-4, 2284-8, 2132-03, TSHR #### [facility] ([id number]) [address], [address] [place] [address] Lymphocytes/100 WBC (Bld) 7.0 % Normal [facility] Comment on above: Performed By: #### C BCA, CMP, 1833-, 30431-0, FEPR, 2276-4, 2284-8, 2131-9, TSHR #### [facility] ([id number]) [address], [address] [place] [address] MCH (RBC) [Entitic mass] 30.8 pg Normal 27-34 [facility] Comment on above: Performed By: #### C BCA, CMP, 1833-, 73150-2, FEPR, 2276-4, 2283-8, 2132-03, TSHR #### [facility] ([id number]) [address], [address] [place] [address] MCHC (RBC) [Mass/Vol] 34.1 g/dL Normal 32-36 [facility] Comment on above: Performed By: #### C BCA, CMP, 1833-07, , FEPR, 6-4, 2283-8, 2132-03, TSHR #### [facility] ([id number]) [address], [address] [place] [address] MCV (RBC) [Entitic vol] 90 fL Normal 80-100 [facility] Comment on above: Performed By: #### C BCA, CMP, 1833-07, , FEPR, 6-4, 2283-8, 2132-03, TSHR #### [facility] ([id number]) [address], [address] [place] [address] Monocytes (Bld) [#/Vol] 1.9 10*3/uL High 0-0.9 [facility] Comment on above: Performed By: #### C BCA, CMP, 1833-07, , FEPR, 6-4, 2283-8, 2132-03, TSHR #### [facility] ([id number]) [address], [address] [place] [address] Monocytes/100 WBC (Bld) 13.0 % Normal [facility] Comment on above: Performed By: #### C BCA, CMP, 1833-07, , FEPR, 2276-4, 2284-8, 2131-9, TSHR #### [facility] ([id number]) [address], [address] [place] [address] Neutrophils (Bld) [#/Vol] 11.9 10*3/uL High 1.5-6.6 [facility] Comment on above: Performed By: #### C BCA, CMP, 1833-, 05425-6, FEPR, 2276-4, 2284-8, 2131-9, TSHR #### [facility] ([id number]) [address], [address] [place] [address] OVALOCYTE 1+ Abnormal NONE [facility] Comment on above: Performed By: #### C BCA, CMP, 1833-07, 99784-2, FEPR, 2276-4, 228-8, 2132-03, TSHR #### [facility] ([id number]) [address], [address] [place] [address] Platelet mean volume (Bld) [Entitic vol] 7.9 fL Normal 7-12 [facility] Comment on above: Performed By: #### C BCA, CMP, 1833-07, , FEPR, 2276-4, 228-8, 2132-03, TSHR #### [facility] ([id number]) [address], [address] [place] [address] Platelets (Bld) [#/Vol] 328 10*3/uL Normal 150-450 [facility] Comment on above: Performed By: #### C BCA, CMP, 1833-, 15405-4, FEPR, 2276-4, 2284-8, 2131-, TSHR #### [facility] ([id number]) [address], [address] [place] [address] POLYCHROMASIA 1+ Abnormal NONE [facility] Comment on above: Performed By: #### C BCA, CMP, 1833-, 91851-6, FEPR, 6-4, 2283-8, 2132-03, TSHR #### [facility] ([id number]) [address], [address] [place] [address] RBC COUNT 2.32 X10E12/L Low 4.10-5.70 [facility] Comment on above: Performed By: #### C BCA, CMP, 1833-, 29347-3, FEPR, 6-4, 2283-8, 2132-03, TSHR #### [facility] ([id number]) [address], [address] [place] [address] SEG NEUTROPHIL 77.0 % Normal [facility] Comment on above: Performed By: #### C BCA, CMP, 1833-, , FEPR, 2275-4, 2283-8, 2132-03, TSHR #### [facility] ([id number]) [address], [address] [place] [address] WBC (Bld) [#/Vol] 14.8 10*3/uL High 4.0-11.0 [facility] Comment on above: Performed By: #### C BCA, CMP, 1833-, , FEPR, 2275-4, 2283-8, 2132-03, TSHR #### [facility] ([id number]) [address], [address] [place] [address] ABSOLUTE BASOPHIL 0.0 X10E9/L Normal 0.0-0.2 [facility] Comment on above: Performed By: #### C BCA, CMP, 1833-, 52047-7, FEPR, 6-4, 2283-8, 2132-03, TSHR #### [facility] ([id number]) [address], [address] [place] [address] ABSOLUTE NEUTROPHIL 10.1 X10E9/L High 1.5-6.6 [facility] Comment on above: Performed By: #### C BCA, CMP, 1833-, 04101-2, FEPR, 2276-4, 2284-8, 2132-03, TSHR #### [facility] ([id number]) [address], [address] [place] [address] Basophils/100 WBC (Bld) 0.2 % Normal [facility] Comment on above: Performed By: #### C BCA, CMP, 1833-, , FEPR, 2276-4, 2284-8, 2132-03, TSHR #### [facility] ([id number]) [address], [address] [place] [address] Eosinophils (Bld) [#/Vol] 0.0 10*3/uL Normal 0.0-0.4 [facility] Comment on above: Performed By: #### C BCA, CMP, 1833-07, , FEPR, 2276-4, 2283-8, 2132-03, TSHR #### [facility] ([id number]) [address], [address] [place] [address] Eosinophils/100 WBC (Bld) 0.0 % Normal [facility] Comment on above: Performed By: #### C BCA, CMP, 1833-07, , FEPR, 6-4, 2283-8, 2132-03, TSHR #### [facility] ([id number]) [address], [address] [place] [address] Erythrocyte distribution width (RBC) [Ratio] 14.5 % Normal 11.5-15.0 [facility] Comment on above: Performed By: #### C BCA, CMP, 1833-, 04471-6, FEPR, 2276-4, 2284-8, 2131-9, TSHR #### [facility] ([id number]) [address] [address] [place] [address] Hematocrit (Bld) [Volume fraction] 22.9 % Low 39-49 [facility] Comment on above: Performed By: #### C BCA, CMP, 1833-, , FEPR, 2276-4, 2283-8, 2132-03, TSHR #### [facility] ([id number]) [address] [address] [place] [address] Hemoglobin (Bld) [Mass/Vol] 7.7 g/dL Low 13.0-17.0 [facility] Comment on above: Performed By: #### C BCA, CMP, 1833-07, , FEPR, 2276-4, 2283-8, 2132-03, TSHR #### [facility] ([id number]) [address] [address] Lymphocytes (Bld) [#/Vol] 0.4 10*3/uL Low 1.0-3.5 [facility] Comment on above: Performed By: #### C BCA, CMP, 1833-07, , FEPR, 6-4, 2283-8, 2132-03, TSHR #### [facility] ([id number]) [address] [address] Lymphocytes/100 WBC (Bld) 3.3 % Normal [facility] Comment on above: Performed By: #### C BCA, CMP, 1833-07, , FEPR, 6-4, 2283-8, 2132-03, TSHR #### [facility] ([id number]) [address] [address] MCH (RBC) [Entitic mass] 30.4 pg Normal 27-34 [facility] Comment on above: Performed By: #### C BCA, CMP, 1833-07, , FEPR, 6-4, 2283-8, 2132-03, TSHR #### [facility] ([id number]) [address] [place] [address] MCHC (RBC) [Mass/Vol] 33.5 g/dL Normal 32-36 [facility] Comment on above: Performed By: #### C BCA, CMP, 1833-, 92058-7, FEPR, 6-4, 2283-8, 2132-03, TSHR #### [facility] ([id number]) [address] [place] [address] MCV (RBC) [Entitic vol] 91 fL Normal 80-100 [facility] Comment on above: Performed By: #### C BCA, CMP, 1833-, , FEPR, 2275-4, 2283-, 2132-03, TSHR #### [facility] ([id number]) [address], [address] [place] [address] Monocytes (Bld) [#/Vol] 1.5 10*3/uL High 0-0.9 [facility] Comment on above: Performed By: #### C BCA, CMP, 1833-, , FEPR, 2275-4, 2283-8, 2132-03, TSHR #### [facility] ([id number]) [address], [address] [place] [address] Monocytes/100 WBC (Bld) 12.4 % Normal [facility] Comment on above: Performed By: #### C BCA, CMP, 1833-, 35679-2, FEPR, 2275-4, 2283-, 2132-03, TSHR #### [facility] ([id number]) [address] [place] [address] Neutrophils/100 WBC (Bld) 84.1 % Normal [facility] Comment on above: Performed By: #### C BCA, CMP, 1833-, 62267-7, FEPR, 2276-4, 2284-8, 2131-9, TSHR #### [facility] ([id number]) [address] [place] [address] Platelet mean volume (Bld) [Entitic vol] 8.0 fL Normal 7-12 [facility] Comment on above: Performed By: #### C BCA, CMP, 1833-, 12675-0, FEPR, 2276-4, 2284-8, 2131-9, TSHR #### [facility] ([id number]) [address] [place] [address] Platelets (Bld) [#/Vol] 224 10*3/uL Normal 150-450 [facility] Comment on above: Performed By: #### C BCA, CMP, 1833-, 41712-7, FEPR, 2276-4, 2284-8, 2131-9, TSHR #### [facility] ([id number]) [address] [place] [address] RBC COUNT 2.53 X10E12/L Low 4.10-5.70 [facility] Comment on above: Performed By: #### C BCA, CMP, 1833-, 09991-8, FEPR, 2276-4, 2284-8, 2131-9, TSHR #### [facility] ([id number]) [address] [place] [address] WBC (Bld) [#/Vol] 12.0 10*3/uL High 4.0-11.0 [facility] Comment on above: Performed By: #### C BCA, CMP, 1833-, 21568-0, FEPR, 2276-4, 2284-8, 2-9, TSHR #### [facility] ([id number]) [address] [place] [address] COMPREHENSIVE METABOLIC PANE Zoran 05-26-2024 Albumin [Mass/Vol] 3.0 g/dL Low 3.2-5.3 [facility] Comment on above: Performed By: #### C BCA, CMP, 1834-1, 08630-2, FEPR, 2276-4, 2284-8, 2131-9, TSHR #### [facility] ([id number]) [address], [address] [place] [address] ALP [Catalytic activity/Vol] 235 U/L High 39-130 [facility] Comment on above: Performed By: #### C BCA, CMP, 1833-, 43025-5, FEPR, 2276-4, 2284-8, 2131-9, TSHR #### [facility] ([id number]) [address], [address] [place] [address] ALT [Catalytic activity/Vol] 77 U/L High 0-40 [facility] Comment on above: Performed By: #### C BCA, CMP, 1833-, 45224-4, FEPR, 2276-4, 2284-8, 2131-9, TSHR #### [facility] ([id number]) [address], [address] [place] [address] Anion gap [Moles/Vol] 13 mmol/L Normal 5-15 [facility] Comment on above: Performed By: #### C BCA, CMP, 183-1, 72183-7, FEPR, 2276-4, 2284-8, 2131-9, TSHR #### [facility] ([id number]) [address], [address] [place] [address] AST [Catalytic activity/Vol] 174 U/L High 0-41 [facility] Comment on above: Performed By: #### C BCA, CMP, 183-1, 18211-3, FEPR, 2276-4, 2284-8, 2132-9, TSHR #### [facility] ([id number]) [address], [address] [place] [address] Bilirubin [Mass/Vol] 1.3 mg/dL High 0.3-1.2 [facility] Comment on above: Performed By: #### C BCA, CMP, 1833-, 06594-5, FEPR, 2276-4, 2284-8, 9, TSHR #### [facility] ([id number]) [address], [address] [place] [address] Calcium [Mass/Vol] 9.0 mg/dL Normal 8.5-10.5 [facility] Comment on above: Performed By: #### C BCA, CMP, 1833-, , FEPR, 2276-4, 228-8, 2132-03, TSHR #### [facility] ([id number]) [address], [address] [place] [address] Chloride [Moles/Vol] 96 mmol/L Low 98-109 [facility] Comment on above: Performed By: #### C BCA, CMP, 1833-07, , FEPR, 2276-4, 2284-8, 2132-03, TSHR #### [facility] ([id number]) [address], [address] [place] [address] CO2 [Moles/Vol] 15 mmol/L Low 22-32 [facility] Comment on above: Performed By: #### C BCA, CMP, 1833-07, , FEPR, 2276-4, 2284-8, 9, TSHR #### [facility] ([id number]) [address], [address] [place] [address] Creatinine [Mass/Vol] 2.33 mg/dL High 0.60-1.30 [facility] Comment on above: Result Comment: METH OD TRACEABLE TO IDMS STANDARD Performed By: #### C BCA, CMP, 1833-07, 00500-2, FEPR, 2276-4, 2284-8, 9, TSHR #### [facility] ([id number]) [address] [address] GFR/1.73 sq M.predicted among non-blacks MDRD (S/P/Bld) [Vol rate/Area] 27 mL/min/{1.73_m2} Low >59 [facility] Comment on above: Result Comment: Reported eGFR is based on the CKD-EPI 2020 equation that does not use a race coefficient. Performed By: #### C BCA, CMP, 1833-07, , FEPR, 2276-4, 2284-8, 2132-03, TSHR #### [facility] ([id number]) [address], [address] [address] Glucose [Mass/Vol] 154 mg/dL High 65-99 [facility] Comment on above: Performed By: #### C BCA, CMP, 1833-07, , FEPR, 2276-4, 2284-8, 2132-03, TSHR #### [facility] ([id number]) [address] [address] Potassium [Moles/Vol] 4.7 mmol/L Normal 3.5-5.0 [facility] Comment on above: Performed By: #### C BCA, CMP, 1833-07, 88791-8, FEPR, 2276-4, 2284-8, 9, TSHR #### [facility] ([id number]) [address] [address] Protein [Mass/Vol] 6.0 g/dL Normal 6.0-8.0 [facility] Comment on above: Performed By: #### C BCA, CMP, 1833-, 43584-3, FEPR, 2276-4, 2284-8, 9, TSHR #### [facility] ([id number]) [address], [address] [place] [address] Sodium [Moles/Vol] 124 mmol/L Low 134-146 [facility] Comment on above: Performed By: #### C BCA, CMP, 1833-, 97753-2, FEPR, 2276-4, 2284-8, 9, TSHR #### [facility] ([id number]) [address], [address] [place] [address] Urea nitrogen [Mass/Vol] 50 mg/dL High 5-27 [facility] Comment on above: Performed By: #### C BCA, CMP, 1833-, , FEPR, 2276-4, 2284-8, 2132-03, TSHR #### [facility] ([id number]) [address], [address] [place] [address] Albumin [Mass/Vol] 3.2 g/dL Normal 3.2-5.3 [facility] Comment on above: Performed By: #### C BCA, CMP, 1833-07, , FEPR, 2276-4, 2283-8, 2132-03, TSHR #### [facility] ([id number]) [address], [address] [place] [address] ALP [Catalytic activity/Vol] 259 U/L High 39-130 [facility] Comment on above: Performed By: #### C BCA, CMP, 1833-, 80325-0, FEPR, 2276-4, 2284-8, 9, TSHR #### [facility] ([id number]) [address], [address] [place] [address] ALT [Catalytic activity/Vol] 84 U/L High 0-40 [facility] Comment on above: Performed By: #### C BCA, CMP, 1833-, 67683-1, FEPR, 2276-4, 2284-8, 9, TSHR #### [facility] ([id number]) [address], [address] [place] [address] Anion gap [Moles/Vol] 13 mmol/L Normal 5-15 [facility] Comment on above: Performed By: #### C BCA, CMP, 4-1, 82403-6, FEPR, 2276-4, 2284-8, 9, TSHR #### [facility] ([id number]) [address], [address] [place] [address] AST [Catalytic activity/Vol] 261 U/L High 0-41 [facility] Comment on above: Performed By: #### C BCA, CMP, 1833-, 35173-6, FEPR, 6-4, 2283-8, 2132-03, TSHR #### [facility] ([id number]) [address], [address] [place] [address] Bilirubin [Mass/Vol] 1.1 mg/dL Normal 0.3-1.2 [facility] Comment on above: Performed By: #### C BCA, CMP, 1833-, 77914-9, FEPR, 2276-4, 2283-8, 9, TSHR #### [facility] ([id number]) [address], [address] [place] [address] Calcium [Mass/Vol] 8.9 mg/dL Normal 8.5-10.5 [facility] Comment on above: Performed By: #### C BCA, CMP, 4-1, 30062-5, FEPR, 2276-4, 2284-8, 9, TSHR #### [facility] ([id number]) [address], [address] [place] [address] Chloride [Moles/Vol] 97 mmol/L Low 98-109 [facility] Comment on above: Performed By: #### C BCA, CMP, 1833-, 03537-8, FEPR, 2276-4, 2284-8, 2132-03, TSHR #### [facility] ([id number]) [address], [address] [place] [address] CO2 [Moles/Vol] 16 mmol/L Low 22-32 [facility] Comment on above: Performed By: #### C BCA, CMP, 1833-, 51479-0, FEPR, 2276-4, 2284-8, 2132-03, TSHR #### [facility] ([id number]) [address] [facility], [address] [place] [address] Creatinine [Mass/Vol] 2.45 mg/dL High 0.60-1.30 [facility] Comment on above: Result Comment: METH OD TRACEABLE TO IDMS STANDARD Performed By: #### C BCA, CMP, 1833-07, , FEPR, 2276-4, 4-8, 2132-03, TSHR #### [facility] ([id number]) [address] [facility], [address] [place] [address] GFR/1.73 sq M.predicted among non-blacks MDRD (S/P/Bld) [Vol rate/Area] 26 mL/min/{1.73_m2} Low >59 [facility] Comment on above: Result Comment: Reported eGFR is based on the CKD-EPI 2020 equation that does not use a race coefficient. Performed By: #### C BCA, CMP, 1833-, 88287-3, FEPR, 2276-4, 2284-8, 2132-03, TSHR #### [facility] ([id number]) [address], [address] [place] [address] Glucose [Mass/Vol] 107 mg/dL High 65-99 [facility] Comment on above: Performed By: #### C BCA, CMP, 1833-, 82280-0, FEPR, 2276-4, 2284-8, 2132-03, TSHR #### [facility] ([id number]) [address], [address] [place] [address] Potassium [Moles/Vol] 5.4 mmol/L High 3.5-5.0 [facility] Comment on above: Performed By: #### C BCA, CMP, 1833-, , FEPR, 6-4, 2283-8, 2132-03, TSHR #### [facility] ([id number]) [address], [address] [place] [address] Protein [Mass/Vol] 6.3 g/dL Normal 6.0-8.0 [facility] Comment on above: Performed By: #### C BCA, CMP, 1833-, , FEPR, 2275-4, 8, 2132-03, TSHR #### [facility] ([id number]) [address], [address] [place] [address] Sodium [Moles/Vol] 126 mmol/L Low 134-146 [facility] Comment on above: Performed By: #### C BCA, CMP, 1833-, , FEPR, 2275-4, 2283-8, 2132-03, TSHR #### [facility] ([id number]) [address], [address] [place] [address] Urea nitrogen [Mass/Vol] 49 mg/dL High 5-27 [facility] Comment on above: Performed By: #### C BCA, CMP, 1833-, , FEPR, 6-4, 2283-8, 2132-03, TSHR #### [facility] ([id number]) [address], [address] [place] [address] Chloride (U) [Moles/Vol]on URINE CHLORIDE,RANDOM 50 mmol/L Normal [facility] Comment on above: Performed By: #### C BCA, CMP, 4-1, 85872-0, FEPR, 2276-4, 2284-8, 2132-03, TSHR #### [facility] ([id number]) [address], [address] [place] [address] Creatinine (U) [Mass/Vol]on 05-26-2024 URINE CREATININE,RDM 87.29 mg/dL Normal [facility] Comment on above: Performed By: #### C BCA, CMP, 1833-, 70421-3, FEPR, 6-4, 228-8, 2132-03, TSHR #### [facility] ([id number]) [address] [place] [address] FERRITINon 05-26-2024 Ferritin [Mass/Vol] 497 ng/mL High 24-336 [facility] Comment on above: Performed By: #### C BCA, CMP, 1833-, , FEPR, 6-4, 2283-8, 2132-03, TSHR #### [facility] ([id number]) [address], [address] [place] [address] Folate [Mass/Vol]on 05-26-20 24 FOLIC ACID >25.0 Normal >5.8 [facility] Comment on above: Result Comment: NEW REFERENCE RANGE Performed By: #### C BCA, CMP, 1833-, 16618-2, FEPR, 2276-4, 2283-8, 2132-03, TSHR #### [facility] ([id number]) [address], [address] [place] [address] IRON PROFILEon 05-26-2024 Iron [Mass/Vol] 23 ug/dL Low 50-212 [facility] Comment on above: Performed By: #### C BCA, CMP, 1833-, 38029-5, FEPR, 2276-4, 2284-8, 2132-03, TSHR #### [facility] ([id number]) [address], [address] [place] [address] IRON BINDING 202 ug/dL Low 250-425 [facility] Comment on above: Performed By: #### C BCA, CMP, 1834-1, 56880-9, FEPR, 2276-4, 4-8, 2132-03, TSHR #### [facility] ([id number]) [address] [place] [address] IRON SATURATION 11 % SATURATION Low 20-50 [facility] Comment on above: Performed By: #### C BCA, CMP, 1833-, , FEPR, 2276-4, 2283-8, 2132-03, TSHR #### [facility] ([id number]) [address], [address] [place] [address] MAGNESIUMon 05-26-2024 Magnesium [Mass/Vol] 2.2 mg/dL Normal 1.8-2.6 [facility] Comment on above: Performed By: #### C BCA, CMP, 1833-07, , FEPR, 6-4, 2283-8, 2132-03, TSHR #### [facility] ([id number]) [address], [address] [place] [address] Magnesium [Mass/Vol] 1.7 mg/dL Low 1.8-2.6 [facility] Comment on above: Performed By: #### 1 9123-9 #### [facility] ([id number]) [address], [address] [place] [address] Magnesium [Mass/Vol] 1.7 mg/dL Low 1.8-2.6 [facility] Comment on above: Performed By: #### C BCA, CMP, 1833-, 02643-5, FEPR, 2276-4, 2283-8, 2132-03, TSHR #### [facility] ([id number]) [address], [address] [place] [address] Natriuretic peptide B [Mass/ Vol]on 05-26-2024 Natriuretic peptide B (Bld) [Mass/Vol] 1534 pg/mL High <100.0 [facility] Comment on above: Performed By: #### C BCA, CMP, 1834-1, 38050-0, FEPR, 2276-4, 2284-8, 2132-03, TSHR #### [facility] ([id number]) [address], [address] [place] [address] Osmolality (U) [Osmolality]o n 05-26-2024 URINE OSMOLALITY 474 mOsm/kg H2 Normal 300-1300 [facility] Comment on above: Performed By: #### C BCA, CMP, 4-1, 62958-0, FEPR, 6-4, 2283-8, 2132-03, TSHR #### [facility] ([id number]) [address], [address] [place] [address] Osmolality [Osmolality]on OSMOLALITY 276 mOsm/kg H2 Low 280-300 [facility] Comment on above: Performed By: #### C BCA, CMP, 1834-1, 54479-9, FEPR, 2276-4, 4-8, 2132-03, TSHR #### [facility] ([id number]) [address], [address] [place] [address] PROTIME AND INRon 05-26-2024 INR Coag (PPP) [Relative time] 1.6 {INR} High 0.8-1.1 [facility] Comment on above: Performed By: #### C BCA, CMP, 1834-1, 63607-1, FEPR, 2276-4, 2284-8, 2132-03, TSHR #### [facility] ([id number]) [address], [address] [place] [address] PT Coag (PPP) [Time] 18.5 s High 9.8-13.2 [facility] Comment on above: Performed By: #### C BCA, CMP, 1833-, 71652-1, FEPR, 2275-4, 2283-8, 2132-03, TSHR #### [facility] ([id number]) [address] [facility], [address] [place] [address] Potassium (U) [Moles/Vol]on 05-26-2024 URINE POTASSIUM,RANDOM 36.9 mmol/L Normal P [facility] Comment on above: Performed By: #### C BCA, CMP, 1833-07, , FEPR, 2275-4, 2284-02, 2132-03, TSHR #### [facility] ([id number]) [address] [place] [address] Reminderson 05-26-2024 Reminders Reminders From: Sierra Rizzo To: EU - Recalls Venegas; Sent: 04/27/2024 16:14:14 EDT Show up: 06/27/2024 16:14:00 EST Subject: Neph tube change Due Date/Time: 07/26/2024 16:14:00 EST Reminder/Recall Patient is due in Jul 2024 for 3 month neph tube change at [facility] Patient r/s to Jun 14 due to heart cath. He will be due in Aug.LG Normal [facility] SODIUMon 05-26-2024 Sodium [Moles/Vol] 123 mmol/L Low 134-146 [facility] Comment on above: Performed By: #### C BCA, CMP, 1833-, , FEPR, 6-4, 2283-8, 2132-03, TSHR #### [facility] ([id number]) [address], [address] [place] [address] Sodium [Moles/Vol] 127 mmol/L Low 134-146 [facility] Comment on above: Performed By: #### C BCA, CMP, 1833-, 27820-7, FEPR, 2276-4, 2284-8, 9, TSHR #### [facility] ([id number]) [address], [address] [place] [address] TSH WITH REFLEXon 05-26-2024 TSH 1.66 uIU/mL Normal 0.49-4.67 [facility] Comment on above: Performed By: #### C BCA, CMP, 1833-, 51849-7, FEPR, 2276-4, 2284-8, 2132-03, TSHR #### [facility] ([id number]) [address], [address] [place] [address] URIC ACIDon 05-26-2024 Urate [Mass/Vol] 8.2 mg/dL High 2.6-7.2 [facility] Comment on above: Performed By: #### C BCA, CMP, 1833-07, , FEPR, 2276-4, 2284-8, 2132-03, TSHR #### [facility] ([id number]) [address], [address] [place] [address] URINALYSISon 05-26-2024 Bilirubin Ql (U) Negative Normal NEG [facility] Comment on above: Performed By: #### C BCA, CMP, 1833-07, , FEPR, 2276-4, 2284-8, 9, TSHR #### [facility] ([id number]) [address], [address] [place] [address] BLOOD/HGB Large Abnormal NEG [facility] Comment on above: Performed By: #### C BCA, CMP, 1833-, 68988-1, FEPR, 2276-4, 2284-8, 9, TSHR #### [facility] ([id number]) [address], [address] [place] [address] Color (U) YELLOW Normal YELLOW [facility] Comment on above: Performed By: #### C BCA, CMP, 1833-1, 00631-1, FEPR, 2276-4, 2284-8, 2131-9, TSHR #### [facility] ([id number]) [address] [place] [address] Glucose Ql (U) Negative Normal NEG [facility] Comment on above: Performed By: #### C BCA, CMP, 1833-, 41547-3, FEPR, 2276-4, 2284-8, 2131-9, TSHR #### [facility] ([id number]) [address], [address] [place] [address] Ketones Ql (U) 10 mg/dL Abnormal NEG [facility] Comment on above: Performed By: #### C BCA, CMP, 1833-, 43820-0, FEPR, 2276-4, 2284-8, 2131-9, TSHR #### [facility] ([id number]) [address], [address] [place] [address] Leukocyte esterase Test strip Ql (U) Large Abnormal NEG [facility] Comment on above: Performed By: #### C BCA, CMP, 1833-, 23849-9, FEPR, 2276-4, 2284-8, 2131-9, TSHR #### [facility] ([id number]) [address], [address] [place] [address] MUCOUS PRESENT Abnormal NONE [facility] Comment on above: Performed By: #### C BCA, CMP, 1833-, 58924-8, FEPR, 2276-4, 2284-8, 2131-9, TSHR #### [facility] ([id number]) [address], [address] [place] [address] Nitrite Ql (U) Positive Abnormal NEG [facility] Comment on above: Performed By: #### C BCA, CMP, 1833-, 62785-6, FEPR, 2276-4, 2284-8, 2131-9, TSHR #### [facility] ([id number]) [address], [address] [place] [address] pH (U) 8.0 [pH] Normal 5.0-8.5 [facility] Comment on above: Performed By: #### C BCA, CMP, 1833-, 29845-3, FEPR, 2276-4, 2284-8, 2131-9, TSHR #### [facility] ([id number]) [address] [address] Protein Ql (U) 100 mg/dL Abnormal NEG [facility] Comment on above: Performed By: #### C BCA, CMP, 1833-07, , FEPR, 6-4, 2283-8, 2132-03, TSHR #### [facility] ([id number]) [address] [address] R.B.CELLS 7 /hpf High 0-5 [facility] Comment on above: Performed By: #### C BCA, CMP, 1833-, , FEPR, 2276-4, 2283-8, 9, TSHR #### [facility] ([id number]) [address], [address] [place] [address] Specific gravity (U) [Rel density] 1.017 Normal 1.003-1.035 [facility] Comment on above: Performed By: #### C BCA, CMP, 1833-, 10503-0, FEPR, 2276-4, 4-8, 2131-9, TSHR #### [facility] ([id number]) [address] [address] [place] [address] SQUAMOUS EPITHELIUM 2 /hpf Normal 0-5 [facility] Comment on above: Performed By: #### C BCA, CMP, 1834-1, 13142-4, FEPR, 2276-4, 2284-8, 2131-9, TSHR #### [facility] ([id number]) [address] [place] [address] TRIPLE PHOS CRYSTALS PRESENT Abnormal NONE [facility] Comment on above: Performed By: #### C BCA, CMP, 1833-, 12590-4, FEPR, 2276-4, 2284-8, 2131-9, TSHR #### [facility] ([id number]) [address] [place] [address] TURBIDITY HAZY Abnormal CLEAR [facility] Comment on above: Performed By: #### C BCA, CMP, 1833-, 60835-3, FEPR, 2276-4, 2284-8, 2131-, TSHR #### [facility] ([id number]) [address], [address] [place] [address] Urobilinogen (U) [Mass/Vol] mg/dL Normal <1.1 [facility] Comment on above: Performed By: #### C BCA, CMP, 1833-, 26841-2, FEPR, 2276-4, 2284-8, 2131-9, TSHR #### [facility] ([id number]) [address], [address] [place] [address] W.B.CELLS 36 /hpf High 0-5 [facility] Comment on above: Performed By: #### C BCA, CMP, 1833-, 32304-8, FEPR, 2276-4, 2284-8, 2131-9, TSHR #### [facility] ([id number]) [address] [place] [address] URINE SODIUM,RANDOMon 2023 Sodium (U) [Moles/Vol] 52 mmol/L Normal [facility] Comment on above: Performed By: #### C BCA, CMP, 1834-1, 23689-2, FEPR, 2276-4, 2284-8, 2132-9, TSHR #### [facility] ([id number]) [address] [place] [address] US ABDOMEN LMTDon 05-26-2024 US ABDOMEN LMTD US ABDOMEN LMTD US ABDOMEN LMTD Clinical history:Hepatic mass Comparison: None. Findings: Real-time sonographic evaluation of the abdomen performed. Increased hepatic echotexture suggestive of diffuse hepatocellular disease, most commonly diffuse hepatic steatosis. Indeterminate left hepatic lobe hypoechoic lesion measuring 1.3 x 1.2 x 0.9 cm. Complex heterogeneous right hepatic lobe mass is indeterminate measuring 13.8 x 13 x 7 x 12.4 cm. Echogenic shadowing foci seen within the region of the mass. Correlate with recent CT. MRI without and with contrast would be recommended for further assessment. Portal vein is patent with hepatopedal flow. Portal vein velocity 23.1 cm/s. Gallbladder is unremarkable. No pericholecystic fluid or gallbladder wall thickening or biliary dilatation. Common duct measures 0.4 cm. Impression: Complex heterogeneous right hepatic lobe mass measuring up to 13.8 cm a smaller hypoechoic left hepatic lobe mass suspicious for metastatic or neoplastic disease. MRI without and with contrast recommended for further assessment. Finalized by Dago Parkinson MD on 05/26/2024 9:54 AM Normal [facility] US RETROPERITONEAL COMPLETEo n 05-26-2024 US RETROPERITONEAL COMPLETE US RETROPERITONEAL COMPLETE US RETROPERITONEAL COMPLETE Clinical history:suprapubic abdominal pain w/ nephrostomy tube Comparison: None. Findings: Real-time sonographic evaluation of the kidneys and bladder performed. Kidney measures 10.3 x 4.4 x 4.6 cm. Left kidney measures 8.0 x 3.8 x 4.1 cm. Cortical thickness on the right is 0.6 cm, left 0.6 cm. There is no renal collecting system dilatation. No abnormal calcification. A small left renal cyst is seen measuring 1.0 x 1.0 x 1.1 cm. Urinary bladder is decompressed. Impression: Small left renal hypoechoic lesion most suggestive of a cyst measuring 11 mm. Somewhat atrophic appearing left kidney compared to the right. No renal collecting system dilatation. Finalized by Dago Parkinson MD on 05/26/2024 9:58 AM Normal [facility] Urea nitrogen (U) [Mass/Vol] on 05-26-2024 URINE UREA NITROGEN,RANDOM 712 mg/dL Normal [facility] Comment on above: Performed By: #### C BCA, CMP, 1833-07, , FEPR, 6-4, 4-8, 2132-03, TSHR #### [facility] ([id number]) [address] [place] [address] VITAMIN B12on 05-26-2024 Cobalamin (Vitamin B12) [Mass/Vol] 1422 pg/mL High 180-914 [facility] Comment on above: Performed By: #### C BCA, CMP, 1833-07, , FEPR, 6-4, 2283-8, 2132-03, TSHR #### [facility] ([id number]) [address] [place] [address] aPTT Coag (PPP) [Time]on aPTT Coag (Bld) [Time] 27 s Normal 26-37 [facility] Comment on above: Performed By: #### C BCA, CMP, 1833-07, , FEPR, 6-4, 2283-8, 2132-03, TSHR #### [facility] ([id number]) [address] [place] [address] Basophils/100 WBC Manual cnt (Bld)on 05-25-2024 Basophils/100 WBC (Bld) Basophils/100 leukocytes in Blood by Manual count Low 0.2-2.0 [facility] Eosinophils/100 WBC Manual c nt (Bld)on 05-25-2024 Eosinophils/100 WBC (Bld) Eosinophils/100 leukocytes in Blood by Manual count Low 0.9-7.0 [facility] Erythrocyte distribution wid th Auto (RBC) [Ratio]on 05-25-2024 Erythrocyte distribution width (RBC) [Ratio] Erythrocyte distribution width [Ratio] by Automated count 11.0-15.0 [facility] Estimated glomerular filtrat ion rate (GFR) non- Americanon 05-25-2024 GFR/1.73 sq M.predicted among non-blacks MDRD (S/P/Bld) [Vol rate/Area] Estimated glomerular filtration rate (GFR) non- Low >=60 mL/min/1.73 m 2 [facility] Globulin Calc (S) [Mass/Vol] on 05-25-2024 Globulin (S) [Mass/Vol] Serum globulin measurement by calculation (mass/volume) [facility] Hematocrit Auto (Bld) [Volum e fraction]on 05-25-2024 Hematocrit (Bld) [Volume fraction] Hematocrit [Volume Fraction] of Blood by Automated count Critically low 42.0-54.0 [facility] Comment on above: RESULTS CALLED TO JASMIN WEBB @BY Minnie Snell [id number] Hemoglobin [Mass/volume] in Bloodon 05-25-2024 Hemoglobin (Bld) [Mass/Vol] Hemoglobin [Mass/volume] in Blood Low 14.0-18.0 [facility] Hemoglobin.gastrointestinal [Presence] in Stoolon 05-25-2024 Hemoglobin.gastrointesti nal Ql (Stl) Hemoglobin.gastrointes tinal [Presence] in Stool Abnormal [facility] INR in Platelet poor plasma by Coagulation assayon 05-25-2024 INR Coag (PPP) [Relative time] INR in Platelet poor plasma by Coagulation assay [facility] Comment on above: DESIRED INR:2.0-3.0 CONDITIONS NOT LISTED BELOW2.5-3.5 FOR PROSTHETIC HEART VALVE REPLACEMENT2.5-3.5 RECURRENT THROMBOSIS Laboratory - Chemistry and C hemistry - challengeon 05-25-2024 Bilirubin Ql (U) Negative NEGATIVE [facility] Glucose (U) [Mass/Vol] Negative [facility]IVE [facility] Ketones Ql (U) Negative NEGATIVE [facility] pH (U) [pH] Abnormal 5.0-9.0 [facility] Specific gravity (U) [Rel density] 1.010 1.005-1.025 [facility] Urobilinogen Qn (U) 0.2 {Raffi'U}/dL 0.2-1.0 [facility] Albumin [Mass/Vol] 2.7 g/dL Low 3.4-5.0 [facility] ALP [Catalytic activity/Vol] 332 U/L High 46-116 [facility] ALT [Catalytic activity/Vol] 142 U/L High 16-63 [facility] AST [Catalytic activity/Vol] 849 U/L Critically high 15-37 [facility] Comment on above: RESULTS CALLED TO DOM ALEXANDRE RN Bilirubin [Mass/Vol] 1.2 mg/dL High 0.2-1.0 [facility] Calcium [Mass/Vol] 9.2 mg/dL 8.5-10.1 [facility] Chloride [Moles/Vol] 93 mmol/L Low 98-107 [facility] CO2 [Moles/Vol] 16.6 mmol/L Low 21.0-32.0 [facility] Creatinine [Mass/Vol] 2.97 mg/dL High 0.70-1.30 [facility] GFR/1.73 sq M.predicted MDRD (S/P/Bld) [Vol rate/Area] 25 mL/min/{1.73_m2} Low >=60 mL/min/1.73 m 2 [facility] Glucose [Mass/Vol] 137 mg/dL High 74-106 [facility] Lactate [Moles/Vol] 1.8 mmol/L 0.4-2.0 [facility] Lipase [Catalytic activity/Vol] 30.0 U/L 16.0-77.0 [facility] Potassium [Moles/Vol] 5.6 mmol/L High 3.5-5.1 [facility] Protein [Mass/Vol] 6.9 g/dL 6.4-8.2 [facility] Sodium [Moles/Vol] 124 mmol/L Critically low 136-145 [facility] Comment on above: RESULTS CALLED TO DA VID OGLESBEE,RN Urea nitrogen [Mass/Vol] 52.0 mg/dL High 7.0-18.0 [facility] Urea nitrogen/Creatinine [Mass ratio] 17.5 mg/mg [facility] Laboratory - Hematology and Cell countson 05-25-2024 Lymphocytes/100 WBC (Bld) 2.0 % Low 20.5-60.0 [facility] Monocytes/100 WBC (Bld) 7.0 % 1.7-12.0 F [facility] - Specimen inform ationon 05-25-2024 Appearance (U) CLEAR CLEAR [facility] Color (U) LT. YELLOW YELLOW [facility] - Urinalysison Leukocyte esterase Test strip Ql (U) MODERATE Abnormal NEGATIVE [facility] Mucus Ql (Urine sed) NONE SEEN NONE SEEN [facility] Nitrite Ql (U) Negative NEGATIVE [facility] Protein Ql (U) 100 mg/dL Abnormal NEG/TRACE [facility] Leukocytes [#/volume] correc ronald for nucleated erythrocytes in Blood by Automated counon 05-25-2024 WBC corrected for nucl RBC Auto (Bld) [#/Vol] Leukocytes [#/volume] corrected for nucleated erythrocytes in Blood by Automated coun High 4.0-11.0 [facility] MCH Auto (RBC) [Entitic mass ]on 05-25-2024 MCH (RBC) [Entitic mass] MCH [Entitic ma ss] by Automated count 25.9-34.0 [facility] MCHC Auto (RBC) [Mass/Vol]on 05-25-2024 MCHC (RBC) [Mass/Vol] MCHC [Mass/volume] by Automated count 29.9-35.2 [facility] MCV Auto (RBC) [Entitic vol] on 05-25-2024 MCV (RBC) [Entitic vol] MCV [Entitic vol ume] by Automated count 80.0-94.0 [facility] No Panel InformationOrdered By: DIMITRI SANTOS on 05-25-2024 Blood Culture 2 [facility] Blood Culture 1 [facility] No Panel Informationon 05-25 Miscellaneous Test Comment See comment [facility] Comment on above: Specimen Source: UCC - Urine,Clean Catch - Urine CC - 200.100 Urine Bacteria SMALL #/HPF Abnormal NONE SEEN [facility] Urine Culture Reflexed YES [facility] Urine Culture Result 1 \R\ Urine Culture , Routine [facility] Urine Occult Blood MODERATE Abnormal NEGATIVE [facility] Urine Other Casts NONE SEEN #/LPF NONE SEEN [facility] Urine Other Crystals Seen #/HPF Abnormal None Seen [facility] Urine RBC 5-10 #/HPF Abnormal 0-2 [facility] Urine Squamous Epithelial Cells RARE #/LPF NONE/RARE [facility] Urine Triple Phosphate Crystals RARE [facility] Urine WBC 5-10 #/HPF Abnormal NONE SEEN [facility] Absolute Basophils (Manual) 0.00 10 3/uL 0.00-0.10 [facility] Eosinophils # (Manual) 0.00 10 3/uL 0.00-0.70 [facility] Lymphocytes # (Manual) 0.29 10 3/uL Low 1.20-3.80 [facility] Monocytes # (Manual) 1.04 10 3/uL High 0.30-0.80 [facility] Segmented Neutrophils # (Manual) 13.55 10 3/uL High 1.4-6.5 [facility] Troponin I High Sensitivity 42.9 pg/mL 4.0-76.1 [facility] Comment on above: CUT-OFF POINTS HAVE BEEN ESTABLISHED BASED ON THE FOURTHUNIVERSAL DEFINITION OF MYOCARDIAL INFARCTION. THE UPPERREFERENCE LIMIT (URL) OF TROPONIN, DEFINED THE 99THPERCENTILE OF cTnI DISTRIBUTION IN A REFERENCE POPULATION,HAS BEEN CONFIRMED THE DECISION THRESHOLD FOR MIDIAGNOSIS.99TH PERCENTILE = 76.2 PG/MLNOTE: HIGH-SENSITIVITY TROPONIN ASSAY IS NOT INTENDED TO BEUSED IN ISOLATION BUT SHOULD BE INTERPRETED IN CONJUNCTIONWITH OTHER DIAGNOSTIC AND CLINICAL INFORMATION. Platelet mean volume Auto (B ld) [Entitic vol]on 05-25-2024 Platelet mean volume (Bld) [Entitic vol] Platelet mean volume [Entitic volume] in Blood by Automated count 9.5-13.5 [facility] Platelets Auto (Bld) [#/Vol] on 05-25-2024 Platelets (Bld) [#/Vol] Platelets [#/vol ume] in Blood by Automated count 150-450 [facility] Prothrombin time (PT)on 04-28 PT Coag (PPP) [Time] Prothrombin time (PT) High 9.0- 11.6 [facility] RBC Auto (Bld) [#/Vol]on RBC (Bld) [#/Vol] Erythrocytes [#/volume] in Blood by Automated count Low 4.70-6.10 [facility] Segmented neutrophils/100 WB C Manual cnt (Bld)on 05-25-2024 Segmented neutrophils/100 WBC (Bld) Manual blood segmented neutrophils/100 leukocytes High 43.0-75.0 [facility] Serum or plasma albumin/glob ulin mass ratioon 05-25-2024 Albumin/Globulin [Mass ratio] Serum or plasma albumin/globulin mass ratio [facility] Serum or plasma anion gap de terminationon 05-25-2024 Anion gap [Moles/Vol] Serum or plasma an ion gap determination [facility] Basophils/100 WBC Manual cnt (Bld)on 05-24-2024 Basophils/100 WBC (Bld) Basophils/100 leukocytes in Blood by Manual count Low 0.2-2.0 [facility] Eosinophils/100 WBC Manual c nt (Bld)on 05-24-2024 Eosinophils/100 WBC (Bld) Eosinophils/100 leukocytes in Blood by Manual count Low 0.9-7.0 [facility] Erythrocyte distribution wid th Auto (RBC) [Ratio]on 05-24-2024 Erythrocyte distribution width (RBC) [Ratio] Erythrocyte distribution width [Ratio] by Automated count 11.0-15.0 [facility] Estimated glomerular filtrat ion rate (GFR) non- Americanon 05-24-2024 GFR/1.73 sq M.predicted among non-blacks MDRD (S/P/Bld) [Vol rate/Area] Estimated glomerular filtration rate (GFR) non- Low >=60 mL/min/1.73 m 2 [facility] Globulin Calc (S) [Mass/Vol] on 05-24-2024 Globulin (S) [Mass/Vol] Serum globulin measurement by calculation (mass/volume) [facility] Hematocrit Auto (Bld) [Volum e fraction]on 05-24-2024 Hematocrit (Bld) [Volume fraction] Hematocrit [Volume Fraction] of Blood by Automated count Low 42.0-54.0 [facility] Hemoglobin [Mass/volume] in Bloodon 05-24-2024 Hemoglobin (Bld) [Mass/Vol] Hemoglobin [Mass/volume] in Blood Low 14.0-18.0 [facility] Laboratory - Chemistry and C hemistry - challengeon 05-24-2024 Albumin [Mass/Vol] 2.5 g/dL Low 3.4-5.0 [facility] ALP [Catalytic activity/Vol] 228 U/L High 46-116 [facility] ALT [Catalytic activity/Vol] 76 U/L High 16-63 [facility] AST [Catalytic activity/Vol] 205 U/L High 15-37 [facility] Bilirubin [Mass/Vol] 1.0 mg/dL 0.2-1.0 [facility] Calcium [Mass/Vol] 8.9 mg/dL 8.5-10.1 [facility] Chloride [Moles/Vol] 98 mmol/L 98-107 [facility] CO2 [Moles/Vol] 18.1 mmol/L Low 21.0-32.0 [facility] Creatinine [Mass/Vol] 2.36 mg/dL High 0.70-1.30 [facility] GFR/1.73 sq M.predicted MDRD (S/P/Bld) [Vol rate/Area] 32 mL/min/{1.73_m2} Low >=60 mL/min/1.73 m 2 [facility] Glucose [Mass/Vol] 137 mg/dL High 74-106 [facility] Lactate [Moles/Vol] 1.5 mmol/L 0.4-2.0 [facility] Potassium [Moles/Vol] 4.9 mmol/L 3.5-5.1 [facility] Protein [Mass/Vol] 6.3 g/dL Low 6.4-8.2 [facility] Sodium [Moles/Vol] 128 mmol/L Low 136-145 [facility] Urea nitrogen [Mass/Vol] 43.0 mg/dL High 7.0-18.0 [facility] Urea nitrogen/Creatinine [Mass ratio] 18.2 mg/mg [facility] Laboratory - Hematology and Cell countson 05-24-2024 Lymphocytes/100 WBC (Bld) 8.0 % Low 20.5-60.0 [facility] Monocytes/100 WBC (Bld) 7.0 % 1.7-12.0 [facility] Leuk[facility] [#/volume] correc ronald for nucleated erythrocytes in Blood by Automated counon 05-24-2024 WBC corrected for nucl RBC Auto (Bld) [#/Vol] Leukocytes [#/volume] corrected for nucleated erythrocytes in Blood by Automated coun 4.0-11.0 [facility] MCH Auto (RBC) [Entitic mass ]on 05-24-2024 MCH (RBC) [Entitic mass] MCH [Entitic ma ss] by Automated count 25.9-34.0 [facility] MCHC Auto (RBC) [Mass/Vol]on 05-24-2024 MCHC (RBC) [Mass/Vol] MCHC [Mass/volume] by Automated count 29.9-35.2 [facility] MCV Auto (RBC) [Entitic vol] on 05-24-2024 MCV (RBC) [Entitic vol] MCV [Entitic vol ume] by Automated count 80.0-94.0 [facility] No Panel Informationon 05-24 Troponin I High Sensitivity 30.5 pg/mL 4.0-76.1 [facility] Comment on above: CUT-OFF POINTS HAVE BEEN ESTABLISHED BASED ON THE FOURTHUNIVERSAL DEFINITION OF MYOCARDIAL INFARCTION. THE UPPERREFERENCE LIMIT (URL) OF TROPONIN, DEFINED THE 99THPERCENTILE OF cTnI DISTRIBUTION IN A REFERENCE POPULATION,HAS BEEN CONFIRMED THE DECISION THRESHOLD FOR MIDIAGNOSIS.99TH PERCENTILE = 76.2 PG/MLNOTE: HIGH-SENSITIVITY TROPONIN ASSAY IS NOT INTENDED TO BEUSED IN ISOLATION BUT SHOULD BE INTERPRETED IN CONJUNCTIONWITH OTHER DIAGNOSTIC AND CLINICAL INFORMATION. Absolute Basophils (Manual) 0.00 10 3/uL 0.00-0.10 [facility] Eosinophils # (Manual) 0.00 10 3/uL 0.00-0.70 [facility] Lymphocytes # (Manual) 0.85 10 3/uL Low 1.20-3.80 [facility] Monocytes # (Manual) 0.74 10 3/uL 0.30-0.80 [facility] Segmented Neutrophils # (Manual) 9.09 10 3/uL High 1.4-6.5 [facility] Platelet mean volume Auto (B ld) [Entitic vol]on 05-24-2024 Platelet mean volume (Bld) [Entitic vol] Platelet mean volume [Entitic volume] in Blood by Automated count 9.5-13.5 [facility] Platelets Auto (Bld) [#/Vol] on 05-24-2024 Platelets (Bld) [#/Vol] Platelets [#/vol ume] in Blood by Automated count 150-450 [facility] RBC Auto (Bld) [#/Vol]on RBC (Bld) [#/Vol] Erythrocytes [#/volume] in Blood by Automated count Low 4.70-6.10 [facility] Segmented neutrophils/100 WB C Manual cnt (Bld)on 05-24-2024 Segmented neutrophils/100 WBC (Bld) Manual blood segmented neutrophils/100 leukocytes High 43.0-75.0 [facility] Serum or plasma albumin/glob ulin mass ratioon 05-24-2024 Albumin/Globulin [Mass ratio] Serum or plasma albumin/globulin mass ratio [facility] Serum or plasma anion gap de terminationon 05-24-2024 Anion gap [Moles/Vol] Serum or plasma an ion gap determination [facility] ANEBonifacio 05-19-2024 ANES -- Attestation signed by Emanuel Gregg MD at 05/19/2024 10:07 AM Emanuel Gregg MD, MPH, FACC, [facility], [place] Interventional Cardiology Pager Email: [email or web address] Patient: Mykel Olivera Procedure Information Date/Time: 05/19/24 1130 Procedures: Coronary angiography - PC 05/12-11/08 Right heart cath Location: [facility] ANALYTICS INTERN 3 / [facility] (Cath) Providers: Emanuel Gregg MD Clinical information reviewed: [facility] Meds Physical Exam Airway Mallampati: III TM distance: >3 FB Neck ROM: full Cardiovascular Rhythm: regular Rate: normal Dental Pulmonary Abdominal Anesthesia Plan ASA 3 (Conscious sedation) Anesthetic plan and risks discussed with patient. Use of blood products discussed with patient who. Plan discussed with attending. Additional Equipment Requests Normal [facility] HPon 05-19-2024 -- Attestation signed by Emanuel Gregg MD at 05/19/2024 10:07 AM By using the attestations below, the signing clinician agrees that I have read and verify that the documentation has been personally reviewed by me and ensure that the documentation accurately reflects the encounter. GC: I personally saw this patient on the day of the encounter, performed the crowley portion(s) of the service and participated in the management and confirm the resident's documentation. Please note there may be an additional personal documentation from me. Emanuel Gregg MD, MPH, [facility], [facility], [facility] Interventional Cardiology Pager Email: [email or web address] H&P reviewed. The patient is experiencing worsening SOB. The procedure was explained to the patient. The risks and benefits of the procedure were explained to the patient who showed understanding and with full capacity elected to proceed with the procedure. All questions were addressed and answered. Will proceed with RHC and Cors/Grafts Magdalene Xiong MD Traveling Auditor - PGY6 [facility] NURSNOTEon 05-19-2024 NURSNOTE RN educated pt on d/ c instructions. This included: site care, limited physical activity, resume normal diet, future appointments, medications, and moderate sedation instructions. RN educated pt on when to notify physician and when to go to the hospital. RN educated pt on importance of not overusing stairs at this time and limited weight bearing of 5lbs. RN encouraged pt to voice any questions or concerns, and answered any questions or concerns if pt verbalized. Pt was wheeled off of unit with all of belongings. [facility] Orders Onlyon 05-19-2024 Orders Only [id number] Mykel Olivera 1940 M Date Provider Department Center 05/19/2024 CASSANDRA ZEPEDA [facility] No family history on file [facility] Basophils Auto (Bld) [#/Vol] on 05-13-2024 Basophils (Bld) [#/Vol] Automated basoph il count 0.0-0.1 [facility] Basophils/100 WBC Auto (Bld) on 05-13-2024 Basophils/100 WBC (Bld) Automated basophil % 0. 2-2.0 [facility] Eosinophils/100 WBC Auto (Bl d)on 05-13-2024 Eosinophils/100 WBC (Bld) Automated eosinophil % 0.9-7.0 [facility] Erythrocyte distribution wid th Auto (RBC) [Ratio]on 05-13-2024 Erythrocyte distribution width (RBC) [Ratio] Erythrocyte distribution width [Ratio] by Automated count 11.0-15.0 [facility] Estimated glomerular filtrat ion rate (GFR) non- Americanon 05-13-2024 GFR/1.73 sq M.predicted among non-blacks MDRD (S/P/Bld) [Vol rate/Area] Estimated glomerular filtration rate (GFR) non- Low >=60 mL/min/1.73 m 2 [facility] Hematocrit Auto (Bld) [Volum e fraction]on 05-13-2024 Hematocrit (Bld) [Volume fraction] Hematocrit [Volume Fraction] of Blood by Automated count Low 42.0-54.0 [facility] Hemoglobin [Mass/volume] in Bloodon 05-13-2024 Hemoglobin (Bld) [Mass/Vol] Hemoglobin [Mass/volume] in Blood Low 14.0-18.0 [facility] Laboratory - Chemistry and C hemistry - challengeon 05-13-2024 Calcium [Mass/Vol] 9.0 mg/dL 8.5-10.1 [facility] Chloride [Moles/Vol] 103 mmol/L 98-107 [facility] CO2 [Moles/Vol] 20.9 mmol/L Low 21.0-32.0 [facility] Creatinine [Mass/Vol] 2.10 mg/dL High 0.70-1.30 [facility] GFR/1.73 sq M.predicted MDRD (S/P/Bld) [Vol rate/Area] 37 mL/min/{1.73_m2} Low >=60 mL/min/1.73 m 2 [facility] Glucose [Mass/Vol] 150 mg/dL High 74-106 [facility] Potassium [Moles/Vol] 4.1 mmol/L 3.5-5.1 [facility] Sodium [Moles/Vol] 137 mmol/L 136-145 [facility] Urea nitrogen [Mass/Vol] 37.0 mg/dL High 7.0-18.0 [facility] Urea nitrogen/Creatinine [Mass ratio] 17.6 mg/mg [facility] Laboratory - Hematology and Cell countson 05-13-2024 Immature granulocytes/100 WBC (Bld) 0.5 % 0.0-0.5 [facility] Leukocytes [#/volume] correc ronald for nucleated erythrocytes in Blood by Automated counon 05-13-2024 WBC corrected for nucl RBC Auto (Bld) [#/Vol] Leukocytes [#/volume] corrected for nucleated erythrocytes in Blood by Automated coun 4.0-11.0 [facility] Lymphocytes Auto (Bld) [#/Vo l]on 05-13-2024 Lymphocytes (Bld) [#/Vol] Lymphocytes [#/volume] in Blood by Automated count Low 1.2-3.8 [facility] Lymphocytes/100 WBC Auto (Bl d)on 05-13-2024 Lymphocytes/100 WBC (Bld) Lymphocytes/100 leukocytes in Blood by Automated count Low 20.5-60.0 [facility] MCH Auto (RBC) [Entitic mass ]on 05-13-2024 MCH (RBC) [Entitic mass] MCH [Entitic ma ss] by Automated count 25.9-34.0 [facility] MCHC Auto (RBC) [Mass/Vol]on 05-13-2024 MCHC (RBC) [Mass/Vol] MCHC [Mass/volume] by Automated count 29.9-35.2 [facility] MCV Auto (RBC) [Entitic vol] on 05-13-2024 MCV (RBC) [Entitic vol] MCV [Entitic vol ume] by Automated count High 80.0-94.0 [facility] Monocytes Auto (Bld) [#/Vol] on 05-13-2024 Monocytes (Bld) [#/Vol] Automated blood monocyte count 0.3-0.8 [facility] Monocytes/100 WBC Auto (Bld) on 05-13-2024 Monocytes/100 WBC (Bld) Automated monocyte % High 1. 7-12.0 [facility] Neutrophils Auto (Bld) [#/Vo l]on 05-13-2024 Neutrophils (Bld) [#/Vol] Neutrophils [#/volume] in Blood by Automated count 1.4-6.5 [facility] Neutrophils/100 WBC Auto (Bl d)on 05-13-2024 Neutrophils/100 WBC (Bld) Automated neutrophil % High 43.0-75.0 [facility] No Panel Informationon 05-13 Eosinophils # (Auto) 0.1 10 3/uL 0.0-0.7 [facility] Immature Granulocyte # (Auto) 0.03 10 3/uL 0.00-0.03 [facility] Platelet mean volume Auto (B ld) [Entitic vol]on 05-13-2024 Platelet mean volume (Bld) [Entitic vol] Platelet mean volume [Entitic volume] in Blood by Automated count 9.5-13.5 [facility] Platelets Auto (Bld) [#/Vol] on 05-13-2024 Platelets (Bld) [#/Vol] Platelets [#/vol ume] in Blood by Automated count 150-450 [facility] RBC Auto (Bld) [#/Vol]on RBC (Bld) [#/Vol] Erythrocytes [#/volume] in Blood by Automated count Low 4.70-6.10 [facility] Serum or plasma anion gap de terminationon 05-13-2024 Anion gap [Moles/Vol] Serum or plasma an ion gap determination [facility] 36on 05-10-2024 36 Regarding stress rose t result from 05/03/2024: took a lot at [...] Keely and Skip to enter orders. Normal [facility] Orders Onlyon 05-10-2024 Orders Only [id number] Mykel Olivera 1940 M Date Provider Department Center 05/10/2024 [id number], TANA CARD [facility] No family history on file [facility] Reminderson 04-27-2024 Reminders Reminders From: Sierra Rizzo To: LICHA Venegas; Sent: 10/31/2023 09:54:34 EDT Show up: 01/05/2024 09:54:00 EDT Subject: neph tube change Due Date/Time: 01/28/2024 09:54:00 EDT Reminder/Recall Patient will be due in January 2024 for 3 month neph tube change at [facility] l/m on [facility] IR vm.SLICK Kamala called back, pt sched for 02/13/24 @ 8:30am. Pt will be due in Apr 2024.LG Spoke to pt, he cannot do 05/04/24. L/m on [facility] IR sched line to sched with Kamala .SLICK Kamala called back, pt sched for 05/18/24 @ 7:45am. Order faxed [phone].SLICK [facility] HPon 04-19-2024 [facility] Cardiology Clinic Note Chief Complaint: Patient here for 6 mo follow up CAD, HFrEF, and PAF. He's still very active at home with his horses. Sometimes needs to sit and take a break while cleaning the barn. He states this is not new. Denies chest pain, palpitations, lightheadedness/syncop e, and bleeding on Eliquis. HPI: Mykel Olivera [...] chronic right nephrostomy tube (follows with Dr. Venegas) Cardiology ROS: Review of Systems Constitutional: Positive [...] AT BEDTIME, Disp: 180 tablet, Rfl: 3 HYDROcodone-acetaminop hen (Rolette) 5-325 mg tablet, 1 tablet as needed, [...] previous study 04/06/2019 (more content not included)... Normal [facility] Office Visiton 04-19-2024 Follow-up visit [id number] Mykel Olivera 1940 M Date Provider Department Center 04/19/2024 Reji-EMANUEL GREGG SVETLANA Scruggs No family history on file Level of Service:98510 [place] OFFICE/OUTPATIENT ESTABLISHED MOD MDM 30 MIN Normal [facility] Reminderson 04-12-2024 Reminders Reminders From: Sierra Rizzo To: EU - Recalls Venegas; Sent: 04/12/2024 09:13:14 EDT Show up: 06/27/2024 09:12:00 EST Subject: neph tube change Due Date/Time: 07/19/2024 09:12:00 EST Reminder/Recall Patient needs right neph tube change in Jul 2024, 3 mo Normal [facility] C Urineon 04-07-2024 Bacteria identified Cx Nom (U) Microbiology PROCEDURE: Urine Culture [R1] SOURCE: U CleanCatch BODY SITE: COLLECTED DATE/TIME: 04/01/2024 12:43 EDT RECEIVED DATE/TIME: 04/01/2024 18:01 EDT START DATE/TIME: 04/01/2024 18:01 EDT FREE TEXT SOURCE: THEO CARDOSO, Kami VENEGAS MD, Kami Silver FINAL REPORTS Final Report [] Verified Date/Time: 04/07/2024 09:47 EDT >100,000 cfu/ml Morganella morganii 75,000 cfu/ml Proteus mirabilis 75,000 cfu/ml Alcaligenes faecalis SUSCEPTIBILITY RESULTS __ LEGEND: S=Susceptible, N/R=Not Reported, Blank=Data not available, or drug not advisable or tested, I=Intermediate, ESBL=Extended spectrum beta-lactamase, R=Resistant, TFG=Thymidine-dependen t strain, CHARU=Beta-lactamase positive, RACHELLE=mcg/m;(mg/L), S*=Predicted susceptible interp, [...] Locations R1: This test was performed at: [facility], [address] [place] [address], [id number] , [facility] Comment on above: Performed By: #### 2 [id number] #### [facility] Laboratory [address] [place] [id number] IR nephrostomy tube chg Bina 02-13-2024 IR nephrostomy tube chg [facility] Main [address] [address] Interventional Radiology Rpt Signed Patient: Mykel Olivera MR#: [id number] : 1940 Acct:[id number] Age/Sex: 83 / M ADM Date: 02/13/24 Loc: IR Room: Type: [facility] Attending Dr: Kami Venegas MD Copies to: MD Harish Harrison Jeffrey [...] nephrostomy tube was removed. A new 12 Haitian nephrostomy tube was administered into the right renal pelvis with wire guidance. The guidewire removed and pigtail locked. Contrast administered confirming adequate position. The nephrostomy tube was secured to skin. No immediate complications. IR/IR nephrostomy tube chg UN IMPRESSION: Adequate replacement of 12 Haitian right percutaneous nephrostomy tube. Impression dictated by: Declan Moreira M.D.02/13/2024 12:28 PM Dictation Location: [place] [address] Transcribed By: [facility] 02/13/24 1228 Dictated By: Declan Moreira DO 02/13/24 1223 Signed By: 02/13/24 1228 Normal [facility] UroVysion Fish and Urine Cyt o ([facility])on 02-06-2024 UVFISH & UC Diagnosis Info Invalid Interpretation Code [facility] Comment on above: Result Comment: A:Ur ine,Urine:Voided [...] on: 02/06/2024 16:35:49 Performed By: #### 1 [id number] #### [facility] [address] [place] [address] Ambulatory Visit Summaryon 0 02-02-2024 Ambulatory Visit Summary Ambulatory Visi t Summary RICKI OLIVERA :1940 Visit Date:02/02/2024 Ambulatory Visit Instructions Your Diagnosis Acute UTI Hx of bladder cancer Your Care Team Attending Physician - Kami VENEGAS MD Primary Care Physician - JUAN BLACKWELL DO This Is Your Medications List [...] for choosing us for your care. Normal [facility] UroVysion Fish and Urine Cyt o ([facility])on 02-02-2024 [facility] Method of Extraction Voided Normal [facility] Comment on above: Performed By: #### 1 [id number] #### [facility] Laboratory [address] [place] [address] [facility] Number of Jars 1 Invalid Interpretation Code [facility] Comment on above: Performed By: #### 1 [id number] #### [facility] Laboratory [address] [place] [address] [facility] Specimen Urine Normal [facility] Comment on above: Performed By: #### 1 [id number] #### [facility] [address] [place] [address] [facility] Type of Service Technical Only Normal [facility] Comment on above: Performed By: #### 1 [id number] #### [facility] Laboratory [address] [place] [id number] Reminderson 01-27-2024 Reminders Reminders From: Sierra Rizzo To: EU - Recalls Venegas; Sent: 01/27/2024 12:47:06 EDT Show up: 11/25/2024 12:46:00 EDT Subject: cysto/fish/cytol Due Date/Time: 12/20/2024 12:47:00 EDT Reminder/Recall Patient is due in January 2025 for 1 year cysto/fish/cytol, bt ck Normal [facility] Consent for Procedure/Surger yon 01-21-2024 Consent for Procedure/Surgery [id number] [id number] Normal [facility] IR nephrostomy tube chg UNon 04-26-2024 IR nephrostomy tube chg UN [facility] Main [employer] [address] [place] [address] Interventional Radiology Rpt Signed Patient: Mykel Olivera MR#: [id number] : 1940 Acct:[id number] Age/Sex: 83 / M ADM Date: 11/21/23 Loc: IR Room: Type: [facility] Attending Dr: Declan Moreira DO Copies [...] Declan Moreira M.D.11/21/2023 12:48 PM Dictation Location: [place] [address] Transcribed By: [facility] 11/21/23 1248 Dictated By: Declan Moreira DO 11/21/23 1239 Signed By: 11/21/23 1248 Normal [facility] CBC AND AUTO DIFFon 11-05-19 ABSOLUTE BASOPHIL 0.0 X10E9/L Normal 0.0-0.2 [facility] Comment on above: Performed By: #### C BCA, CMP, 1834-1, 36791-2, FEPR, 2276-4, 2284-8, 2132-9, TSHR #### [facility] ([id number]) [address] [address], [address] [place] [address] ABSOLUTE NEUTROPHIL 7.3 X10E9/L High 1.5-6.6 [facility] [facility] Comment on above: Performed By: #### C BCA, CMP, 1833-, 06261-5, FEPR, 2276-4, 4-8, 2132-03, TSHR #### [facility] ([id number]) [address], [address] [place] [address] Basophils/100 WBC (Bld) 0.3 % Normal [facility] Comment on above: Performed By: #### C BCA, CMP, 1833-, , FEPR, 2276-4, 4-8, 2132-03, TSHR #### [facility] ([id number]) [address], [address] [place] [address] Eosinophils (Bld) [#/Vol] 0.1 10*3/uL Normal 0.0-0.4 [facility] Comment on above: Performed By: #### C BCA, CMP, 1833-07, , FEPR, 6-4, 2283-8, 2132-03, TSHR #### [facility] ([id number]) [address], [address] [place] [address] Eosinophils/100 WBC (Bld) 1.2 % Normal [facility] Comment on above: Performed By: #### C BCA, CMP, 1833-07, , FEPR, 6-4, 2283-8, 2132-03, TSHR #### [facility] ([id number]) [address], [address] [place] [address] Erythrocyte distribution width (RBC) [Ratio] 15.5 % High 11.5-15.0 [facility] Comment on above: Performed By: #### C BCA, CMP, 1833-, 10877-2, FEPR, 2276-4, 4-8, 2132-03, TSHR #### [facility] ([id number]) [address], [address] [place] [address] Hematocrit (Bld) [Volume fraction] 23.2 % Low 39-49 [facility] Comment on above: Performed By: #### C BCA, CMP, 1833-, , FEPR, 2276-4, 2283-8, 2132-03, TSHR #### [facility] ([id number]) [address], [address] [place] [address] Hemoglobin (Bld) [Mass/Vol] 7.9 g/dL Low 13.0-17.0 [facility] Comment on above: Performed By: #### C BCA, CMP, 1833-07, , FEPR, 6-4, 2283-8, 2132-03, TSHR #### [facility] ([id number]) [address], [address] [place] [address] Lymphocytes (Bld) [#/Vol] 0.3 10*3/uL Low 1.0-3.5 [facility] Comment on above: Performed By: #### C BCA, CMP, 1833-07, , FEPR, 6-4, 2283-8, 2132-03, TSHR #### [facility] ([id number]) [address], [address] [place] [address] Lymphocytes/100 WBC (Bld) 3.0 % Normal [facility] Comment on above: Performed By: #### C BCA, CMP, 1833-07, , FEPR, 6-4, 2283-8, 2132-03, TSHR #### [facility] ([id number]) [address] [place] [address] MCH (RBC) [Entitic mass] 31.6 pg Normal 27-34 [facility] Comment on above: Performed By: #### C BCA, CMP, 1833-07, , FEPR, 2276-4, 2283-8, 2132-03, TSHR #### [facility] ([id number]) [address], [address] [place] [address] MCHC (RBC) [Mass/Vol] 34.1 g/dL Normal 32-36 [facility] Comment on above: Performed By: #### C BCA, CMP, 1833-, 41457-5, FEPR, 2276-4, 2284-8, 2131-9, TSHR #### [facility] ([id number]) [address] [place] [address] MCV (RBC) [Entitic vol] 93 fL Normal 80-100 [facility] Comment on above: Performed By: #### C BCA, CMP, 1833-, , FEPR, 2276-4, 2284-8, 2131-9, TSHR #### [facility] ([id number]) [address], [address] [place] [address] Monocytes (Bld) [#/Vol] 1.0 10*3/uL High 0-0.9 [facility] Comment on above: Performed By: #### C BCA, CMP, 1833-07, , FEPR, 6-4, 4-8, 2131-, TSHR #### [facility] ([id number]) [address], [address] [place] [address] Monocytes/100 WBC (Bld) 11.5 % Normal [facility] Comment on above: Performed By: #### C BCA, CMP, 1833-, , FEPR, 2276-4, 2284-8, 2131-9, TSHR #### [facility] ([id number]) [address] [place] [address] Neutrophils/100 WBC (Bld) 84.0 % Normal [facility] Comment on above: Performed By: #### C BCA, CMP, 1833-, , FEPR, 2276-4, 2284-8, 2131-9, TSHR #### [facility] ([id number]) [address] [place] [address] Platelet mean volume (Bld) [Entitic vol] 7.8 fL Normal 7-12 [facility] Comment on above: Performed By: #### C BCA, CMP, 1834-1, 37253-9, FEPR, 2276-4, 2284-8, 2131-9, TSHR #### [facility] ([id number]) [address], [facility] [address] [place] [address] Platelets (Bld) [#/Vol] 190 10*3/uL Normal 150-450 [facility] Comment on above: Performed By: #### C BCA, CMP, 1833-, 19319-9, FEPR, 2276-4, 2284-8, 2131-9, TSHR #### [facility] ([id number]) [address] [place] [address] POLYCHROMASIA 1+ Abnormal NONE [facility] Comment on above: Performed By: #### C BCA, CMP, 4-1, 52857-7, FEPR, 2276-4, 2284-8, 2131-9, TSHR #### [facility] ([id number]) [address], [facility] [address] [place] [address] RBC COUNT 2.51 X10E12/L Low 4.10-5.70 [facility] Comment on above: Performed By: #### C BCA, CMP, 4-, 28409-2, FEPR, 2276-4, 2284-8, 2131-9, TSHR #### [facility] ([id number]) [address], [address] [place] [address] WBC (Bld) [#/Vol] 8.7 10*3/uL Normal 4.0-11.0 [facility] Comment on above: Performed By: #### C BCA, CMP, 1834-1, 49516-6, FEPR, 2276-4, 2284-8, 2131-9, TSHR #### [facility] ([id number]) [address], [address] [place] [address] COMPREHENSIVE METABOLIC PANE Zoran 11-05-2023 Albumin [Mass/Vol] 2.6 g/dL Low 3.2-5.3 [facility] Comment on above: Performed By: #### C BCA, CMP, 1834-1, 64922-1, FEPR, 2276-4, 2284-8, 2132-03, TSHR #### [facility] ([id number]) [address] [place] [address] ALP [Catalytic activity/Vol] 268 U/L High 39-130 [facility] Comment on above: Performed By: #### C BCA, CMP, 1833-1, 38081-3, FEPR, 2276-4, 2284-8, 2132-03, TSHR #### [facility] ([id number]) [address], [address] [place] [address] ALT [Catalytic activity/Vol] 69 U/L High 0-40 [facility] Comment on above: Performed By: #### C BCA, CMP, 4-1, 63408-1, FEPR, 2276-4, 2284-8, 2132-03, TSHR #### [facility] ([id number]) [address], [address] [place] [address] Anion gap [Moles/Vol] 9 mmol/L Normal 5-15 [facility] Comment on above: Performed By: #### C BCA, CMP, 1834-1, 35166-2, FEPR, 2276-4, 2284-8, 2131-9, TSHR #### [facility] ([id number]) [address], [address] [place] [address] AST [Catalytic activity/Vol] 87 U/L High 0-41 [facility] Comment on above: Performed By: #### C BCA, CMP, 1834-1, 67947-2, FEPR, 2276-4, 2284-8, 2131-9, TSHR #### [facility] ([id number]) [address] [place] [address] Bilirubin [Mass/Vol] 1.7 mg/dL High 0.3-1.2 [facility] Comment on above: Performed By: #### C BCA, CMP, 1833-, 31173-3, FEPR, 2276-4, 2284-8, 2131-, TSHR #### [facility] ([id number]) [address], [address] [place] [address] Calcium [Mass/Vol] 8.5 mg/dL Normal 8.5-10.5 [facility] Comment on above: Performed By: #### C BCA, CMP, 1833-, 94029-2, FEPR, 2276-4, 2284-8, 2131-, TSHR #### [facility] ([id number]) [address], [address] [place] [address] Chloride [Moles/Vol] 93 mmol/L Low 98-109 [facility] Comment on above: Performed By: #### C BCA, CMP, 1833-, 12351-3, FEPR, 2276-4, 2284-8, 2131-9, TSHR #### [facility] ([id number]) [address], [address] [place] [address] CO2 [Moles/Vol] 28 mmol/L Normal 22-32 [facility] Comment on above: Performed By: #### C BCA, CMP, 1833-, 85621-9, FEPR, 2276-4, 2284-8, 2131-9, TSHR #### [facility] ([id number]) [address], [address] [place] [address] Creatinine [Mass/Vol] 1.64 mg/dL High 0.60-1.30 [facility] Comment on above: Result Comment: METH OD TRACEABLE TO IDMS STANDARD Performed By: #### C BCA, CMP, 1834-1, 59204-5, FEPR, 2276-4, 2284-8, 9, TSHR #### [facility] ([id number]) [address], [address] [place] [address] GFR/1.73 sq M.predicted among non-blacks MDRD (S/P/Bld) [Vol rate/Area] 42 mL/min/{1.73_m2} Low >59 [facility] Comment on above: Result Comment: Reported eGFR is based on the CKD-EPI 2020 equation that does not use a race coefficient. Performed By: #### C BCA, CMP, 1833-, 89437-3, FEPR, 2276-4, 2284-8, 2132-03, TSHR #### [facility] ([id number]) [address] [address] [place] [address] Glucose [Mass/Vol] 106 mg/dL High 65-99 [facility] Comment on above: Performed By: #### C BCA, CMP, 4-1, 73872-9, FEPR, 2276-4, 2284-8, 2132-03, TSHR #### [facility] ([id number]) [address], [address] [place] [address] Potassium [Moles/Vol] 3.8 mmol/L Normal 3.5-5.0 [facility] Comment on above: Performed By: #### C BCA, CMP, 1834-1, 43334-5, FEPR, 2276-4, 2284-8, 2131-9, TSHR #### [facility] ([id number]) [address] [address] [place] [address] Protein [Mass/Vol] 5.7 g/dL Low 6.0-8.0 [facility] Comment on above: Performed By: #### C BCA, CMP, 1833-1, 57994-8, FEPR, 2276-4, 2284-8, 9, TSHR #### [facility] ([id number]) [address], [address] [place] [address] Sodium [Moles/Vol] 130 mmol/L Low 134-146 [facility] Comment on above: Performed By: #### C BCA, CMP, 1833-07, , FEPR, 6-4, 2283-8, 2132-03, TSHR #### [facility] ([id number]) [address], [address] [place] [address] Urea nitrogen [Mass/Vol] 35 mg/dL High 5-27 [facility] Comment on above: Performed By: #### C BCA, CMP, 1833-07, , FEPR, 6-4, 2283-8, 2132-03, TSHR #### [facility] ([id number]) [address], [address] [place] [address] MAGNESIUMon 11-05-2023 Magnesium [Mass/Vol] 2.0 mg/dL Normal 1.8-2.6 [facility] Comment on above: Performed By: #### C BCA, CMP, 1833-07, , FEPR, 2276-4, 2283-8, 2132-03, TSHR #### [facility] ([id number]) [address], [address] [place] [address] PROTIME AND INRon 11-05-2023 INR Coag (PPP) [Relative time] 1.2 {INR} High 0.8-1.1 [facility] Comment on above: Performed By: #### C BCA, CMP, 1833-07, 23950-6, FEPR, 2276-4, 2284-8, 2131-9, TSHR #### [facility] ([id number]) [address], [address] [place] [address] PT Coag (PPP) [Time] 13.5 s High 9.8-13.2 [facility] Comment on above: Performed By: #### C BCA, CMP, 1834-1, 84928-7, FEPR, 6-4, 4-8, 2132-03, TSHR #### [facility] ([id number]) [address] [place] [address] Amorphous urine sedimenton 0 11-03-2023 Amorphous sediment LM Ql (Urine sed) RARE [facility] Automated epithelial cells c ount in urine sediment (number/area)on 11-03-2023 Epithelial cells Auto (Urine sed) [#/Area] FEW #/LPF NONE/RARE [facility] Automated leukocytes count i n urine sediment (number/area)on 11-03-2023 WBC Auto (Urine sed) [#/Area] 5-10 #/HPF 0-2 [facility] Automated urine sediment [place] cium oxalate crystal count by microscopy (number/high powon 11-03-2023 Calcium oxalate crystals LM.HPF (Urine sed) [#/Area] RARE [facility] Automated urine specific gra vity by refractometryon 11-03-2023 Specific gravity Refractometry automated (U) [Rel density] 1.020 1.005-1.025 [facility] Bilirubin Auto test strip (U ) [Mass/Vol]on 11-03-2023 Bilirubin (U) [Mass/Vol] Negative NEGATIVE [facility] Casts typing in urine sedime nt by light microscopyon 11-03-2023 Casts LM Nom (Urine sed) NONE SEEN #/LPF NONE S EEN [facility] Color Auto (U)on 11-03-2023 Color (U) LT. YELLOW YELLOW [facility] Erythrocyte distribution wid th Auto (RBC) [Ratio]on 11-03-2023 Erythrocyte distribution width (RBC) [Ratio] 13.7 % 11.0-15.0 [facility] Estimated glomerular filtrat ion rate (GFR) non- Americanon 11-03-2023 GFR/1.73 sq M.predicted among non-blacks MDRD (S/P/Bld) [Vol rate/Area] 25 mL/min/{1.73_m2} >=60 [facility] Hematocrit Auto (Bld) [Volum e fraction]on 11-03-2023 Hematocrit (Bld) [Volume fraction] 34.3 % 42.0-54.0 [facility] Hemoglobin [Mass/volume] in Bloodon 11-03-2023 Hemoglobin (Bld) [Mass/Vol] 11.0 g/dL 14.0-18.0 [facility] Ketones Auto test strip (U) [Mass/Vol]on 11-03-2023 Ketones (U) [Mass/Vol] Negative NEGATIVE Fi [facility] - Chemistry and C hemistry - challengeon 11-03-2023 Albumin [Mass/Vol] 3.5 g/dL 3.4-5.0 [facility] Calcium [Mass/Vol] 9.0 mg/dL 8.5-10.1 [facility] Chloride [Moles/Vol] 99 mmol/L 98-107 [facility] CO2 [Moles/Vol] 22.2 mmol/L 21.0-32.0 [facility] Creatinine [Mass/Vol] 2.48 mg/dL 0.70-1.30 [facility] GFR/1.73 sq M.predicted MDRD (S/P/Bld) [Vol rate/Area] 31 mL/min/{1.73_m2} >=60 [facility] Glucose [Mass/Vol] 137 mg/dL 74-106 [facility] Magnesium [Mass/Vol] 1.5 mg/dL 1.8-2.4 [facility] Potassium [Moles/Vol] 4.8 mmol/L 3.5-5.1 [facility] Sodium [Moles/Vol] 133 mmol/L 136-145 [facility] Urea nitrogen [Mass/Vol] 42.0 mg/dL 7.0-18.0 [facility] Urea nitrogen/Creatinine [Mass ratio] 16.9 mg/mg [facility] Leukocytes [#/volume] correc ronald for nucleated erythrocytes in Blood by Automated counon 11-03-2023 WBC corrected for nucl RBC Auto (Bld) [#/Vol] 5.9 10 3/uL 4.0-11.0 [facility] MCH Auto (RBC) [Entitic mass ]on 11-03-2023 MCH (RBC) [Entitic mass] 30.0 pg 25.9-34.0 [facility] MCHC Auto (RBC) [Mass/Vol]on 11-03-2023 MCHC (RBC) [Mass/Vol] 32.1 g/dL 29.9-35.2 [facility] MCV Auto (RBC) [Entitic vol] on 11-03-2023 MCV (RBC) [Entitic vol] 93.5 fL 80.0-94.0 [facility] Microalbumin [Mass/volume] i n Urineon 11-03-2023 Albumin DL <= 20 mg/L (U) [Mass/Vol] 20.1 mg/dL <=30.0 [facility] Mucus LM Ql (Urine sed)on Mucus Ql (Urine sed) NONE SEEN NONE SEEN [facility] No Panel Informationon 11-02 Phosphorus Level 3.9 mg/dL 2.6-4.7 [facility] Urine Random Creatinine 54.23 mg/dL 20.0 0-300.0 0 [facility] Platelet mean volume Auto (B ld) [Entitic vol]on 11-03-2023 Platelet mean volume (Bld) [Entitic vol] 10.3 fL 9.5-13.5 [facility] Platelets Auto (Bld) [#/Vol] on 11-03-2023 Platelets (Bld) [#/Vol] 144 10 3/uL 150-450 [facility] Protein Auto test strip (U) [Mass/Vol]on 11-03-2023 Protein (U) [Mass/Vol] 100 mg/dL NEG/TRACE [facility] RBC Auto (Bld) [#/Vol]on RBC (Bld) [#/Vol] 3.67 10 6/uL 4.70-6.10 [facility] Serum or plasma anion gap de terminationon 11-03-2023 Anion gap [Moles/Vol] 16.6 mmol/L [facility] Specific gravity Auto test s trip (U) [Rel density]on 11-03-2023 Specific gravity (U) [Rel density] CLEAR CLEAR [facility] Urine bacteria detection by automated methodon 11-03-2023 Bacteria Auto Ql (U) LARGE #/HPF NONE SEEN [facility] Urine glucose measurement by test strip (mass/volume)on 11-03-2023 Glucose Test strip (U) [Mass/Vol] Negative NEGATIVE [facility] Urine hemoglobin detection b y automated test stripon 11-03-2023 Hemoglobin Auto test strip Ql (U) LARGE NEGATIVE [facility] Urine microalbumin/creatinin e mass ratioon 11-03-2023 Albumin/Creatinine DL <= 20 mg/L (U) [Mass ratio] 370.6 mg/g 0.0-29.9 [facility] Comment on above: NO MICROALBUMINURIA 0-29 MG/GCLINICAL MICROALBUMINURIA 30-300 MG/GMACROALBUMINURIA >300 MG/G Urine nitrite detection by a utomated test stripon 11-03-2023 Nitrite Auto test strip Ql (U) MODERATE NEGATIVE [facility] Nitrite Auto test strip Ql (U) Positive NEGATIVE [facility] Urine sediment crystal ident ification by light microscopyon 11-03-2023 Crystals LM Nom (Urine sed) Seen #/HPF None Seen [facility] Urine sediment leukocyte cou nt by microscopy (number/high power field)on 11-03-2023 WBC LM.HPF (Urine sed) [#/Area] 10-20 #/HPF NONE SEEN [facility] Urobilinogen Auto test strip (U) [Mass/Vol]on 11-03-2023 Urobilinogen Qn (U) 0.2 {Raffi'U}/dL 0.2-1.0 [facility] pH Auto test strip (U)on pH (U) 7.5 [pH] 5.0-9.0 [facility] Physician Orderon 10-31-2023 Physician Order [id number]#1.0 0TIFF [facility] Reminderson 10-31-2023 Reminders - From: Sierra Rizzo To: EU - Recalls Venegas; Cc: Sierra Rizzo; Sent: 07/08/2023 09:01:46 EST Show up: 08/28/2023 09:01:00 EST Subject: Neph tube change Due Date/Time: 09/22/2023 09:01:00 EST Reminder/Recall Patient is due in September 2023 for 3 month RT neph tube change at [facility] Patient had neph tube changed in Jul by Dr. Holland due to problems. Pt will be due in October 2023.LG Spoke to pt, he is available all month. l/m on [facility] interventional sched vm to sched.SLICK Wray called back, pt sched for 11/20/23 @ 8am, Order faxed . new thread. Normal [facility] Office Visiton 10-07-2023 Follow-up visit [id number] Mykel Olivera 1940 M Date Provider Department Center 10/07/2023 RAJENDRA [facility]LEGAS CARD [facility] No family history on file Level of Service:86046 [place] OFFICE/OUTPATIENT ESTABLISHED LOW MDM 20 MIN Normal [facility] Physician Orderon 08-06-2023 Physician Order [id number]#1.0 0TIFF Normal [facility] Capillary blood glucose cecilia urement by glucometer (mass/volume)Ordered By: PROVIDER TEMP on 08-05-2023 Glucose [Mass/Vol] 138 mg/dL [facility] Comment on above: Random Glucose Refer ence Range is dependent on time and content of last meal. Glucose of more than 200 mg/dL in a nonstressed, ambulatory subject supports the diagnosis of Diabetes Mellitus. Result Comment: [place] om Glucose Reference Range is dependent on time and content of last meal. Glucose of more than 200 mg/dL in a nonstressed, ambulatory subject supports the diagnosis of Diabetes Mellitus. PERFORMED BY: [place] [address] PATHOLOGIST HAT LINING PASTER CAMI RAYA M.D. Performed By: #### G LUTA #### Point of Care testing , ECG 12 lead ECGon 08-05-2023 ECG 12 lead ECG [facility] [place] [address] Electrocardiograph Report Signed Patient: Mykel Olivera MR#: [id number] : 1940 Acct:[id number] Age/Sex: 83 / M ADM Date: 08/05/23 Loc: ER Room: Type: COUNT INCLUDES [facility] Attending Dr: Ordering Provider: Jose D Hercules [...] available Confirmed by JOSE D HERCULES MD ([id number]) on 08/05/2023 5:39:43 AM Referred By: Electronically Signed By:JOSE D HERCULES MD Transcribed By: MUS Signed By Jose D Hercules Jr, MD 0539 Normal [facility] RAD - MISCon 07-29-2023 RAD - MIS [id number] 0TIFF Normal [facility] IR nephrostomy tube chg UNon 07-25-2023 IR nephrostomy tube chg UN [facility] [place] [address] Interventional Radiology Rpt Signed Patient: Mykel Olivera MR#: [id number] : 1940 Acct:[id number] Age/Sex: 83 / M ADM Date: 07/25/23 Loc: IR Room: Type: [facility] Attending Dr: Kami Venegas MD Copies to: MD Harish Harrison Jeffrey [...] nephrostomy tube. The tube was removed. 12 Haitian RIGHT nephrostomy tube was administered with a wire guidance. The tube is in adequate position and was locked. Contrast was administered confirming adequate position. No immediate complications. IR/IR nephrostomy tube chg UN IMPRESSION: Adequate exchange of 12 Haitian RIGHT nephrostomy tube. Impression dictated by: Declan Moreira M.D.07/25/2023 11:15 AM Dictation Location: [place] [address] Transcribed By: [facility] 07/25/23 1115 Dictated By: Declan Moreira DO 07/25/23 1109 Signed By: 07/25/23 1115 Normal [facility] Physician Orderon 07-08-2023 Physician Order [id number]#1.0 0TIFF Normal [facility] BUNon 12-24-2022 Urea nitrogen [Mass/Vol] 40.0 mg/dL Critically high 7.0-18 .0 [facility] Comment on above: Performed By: #### H H #### [facility] [address] [address] [address] Lilly Cordova CREATININEon 12-24-2022 Creatinine [Mass/Vol] 2.33 mg/dL Critically high 0.70-1.30 [facility] Comment on above: Performed By: #### H H #### [facility] [address] [address] [address] Lilly Cordova EGFR-AF BOLIVIAN 33 mL/min/1.73m2 Critically low >=60 [facility] Comment on above: Performed By: #### H H #### [facility] [address] [place], [place] [address] Dr. Lilly Cordova EGFR-NON AF BOLIVIAN 27 mL/min/1.73m2 Critically low >=60 [facility] Comment on above: Performed By: #### H H #### [facility] [address] [place], [place] [address] ABD/PELVIS WO CONon [...] by: GUSTAVO BUSTILLO Date: 2022-12-24 10:21 Normal [facility] XR KUB 1 VIEWon 11-12-2022 XR [...] by: BETZY JAMES Date: 2022-11-12 10:01 Normal [facility] CULTURE URINEon 11-07-2022 CULTURE URINE Isolate 1 Proteus mirabilis >100,000 cfu/mL of ORGANISM 1 Proteus mirabilis ANTIBIOTIC M.I.C RX STATUS Ampicillin >=32 R F Ampicillin/Sulbactam 8 S F Piperacillin/Tazobacta m <=4 S F Cefazolin 8 S F Ceftazidime 2 S F Ceftriaxone <=1 S F Ertapenem 2 R F Imipenem 2 R F Amikacin 4 S F Gentamicin <=1 S F Tobramycin <=1 S F Ciprofloxacin <=0.25 S F Levofloxacin 1 S F Nitrofurantoin 64 R F Trimethoprim/Sulfameth oxazole <=20 S F Normal [facility] Comment on above: Performed By: #### H H #### [facility] [address] [address] [address] Lilly Cordova PTH INTACTon 11-05-2022 PTH, Intact 46 pg/mL Normal 15-65 [facility] Comment on above: Performed By: #### P THINT #### [facility] [address] [place] [address] Dr. Lilly Cordova ALBUMINon 11-04-2022 Albumin [Mass/Vol] 3.6 g/dL Normal 3.4-5.0 [facility] Comment on above: Performed By: #### B MP, PHOS, MG, ALB, URIC #### [facility] [address] [place] [address] Dr. Lilly Cordova HEMOGRAM AND PLATELon 2022 Hematocrit (Bld) [Volume fraction] 34.7 % Critically low 42.0-54.0 [facility] Comment on above: Performed By: #### H H #### [facility] [address] [place] [address] Dr. Lilly Cordova Hemoglobin (Bld) [Mass/Vol] 11.7 g/dL Critically low 14.0-18.0 [facility] Comment on above: Performed By: #### H H #### [facility] [address] [place] [address] Dr. Lilly Cordova MCH (RBC) [Entitic mass] 31.0 pg Normal 25.9-34.0 [facility] Comment on above: Performed By: #### H H #### [facility] [address] [place] [address] Dr. Lilly Cordova MCHC (RBC) [Mass/Vol] 33.7 g/dL Normal 29.9-35.2 [facility] Comment on above: Performed By: #### H H #### [facility] [address] [place] [address] Dr. Lilly Cordova MCV (RBC) [Entitic vol] 91.8 fL Normal 80.0-94.0 [facility] Comment on above: Performed By: #### H H #### [facility] [address] [place] [address] Dr. Lilly Cordova PLT 129 103/ul Critically low 150-450 [facility] Comment on above: Performed By: #### H H #### [facility] [address] [place] [address] Dr. Lilly Cordova RBC 3.78 106/ul Critically low 4.70-6.10 [facility] Comment on above: Performed By: #### H H #### [facility] [address] [place] [address] Dr. Lilly Cordova WBC 6.2 103/ul Normal 4.0-11.0 [facility] Comment on above: Performed By: #### H H #### [facility] [address] [place] [address] Dr. Lilly Cordova MAGNESIUMon 11-04-2022 Magnesium [Mass/Vol] 1.5 mg/dL Critically low 1.8-2.4 [facility] Comment on above: Performed By: #### B MP, PHOS, MG, ALB, URIC #### [facility] [address] [place] [address] Dr. Lilly Cordova MICROALB CREAT RATIO RANDOMo n 11-04-2022 mALB 13.5 mg/L Normal <=30.0 [facility] Comment on above: Performed By: #### M CRR #### [facility] [address] [place] [address] Dr. Lilly Cordova MALB CR RATIO 238.9 mg/g Critically high 0.0-29.9 [facility] Comment on above: Performed By: #### M CRR #### [facility] [address] [place] [address] Dr. Lilly Cordova MALB CR RATIO RANGE SEE BELOW Normal [facility] Comment on above: Result Comment: NO M ICROALBUMINURIA 0-29 MG/G CLINICAL MICROALBUMINURIA 30-300 MG/G MACROALBUMINURIA >300 MG/G Performed By: #### M CRR #### [facility] [address] [place] [address] Dr. Lilly Cordova URINE CREAT 56.52 mg/dL Normal 20.00-300.0 0 [facility] Comment on above: Performed By: #### M CRR #### [facility] [address] [place] [address] Dr. Lilly oCrdova PHOSPHORUSon 11-04-2022 Phosphate [Mass/Vol] 3.0 mg/dL Normal 2.6-4.7 [facility] Comment on above: Performed By: #### B MP, PHOS, MG, ALB, URIC #### [facility] [address] [place] [address] Dr. Lilly Cordova PROF CHEM 8 (BAS METB)on Anion gap [Moles/Vol] 13.0 mmol/L Normal [facility] Comment on above: Performed By: #### B MP, PHOS, MG, ALB, URIC #### [facility] [address] [place] [address] Dr. Lilly Cordova Calcium [Mass/Vol] 9.1 mg/dL Normal 8.5-10.1 [facility] Comment on above: Performed By: #### B MP, PHOS, MG, ALB, URIC #### [facility] [address] [place] [address] Dr. Lilly Cordova Chloride [Moles/Vol] 102 mmol/L Normal 98-107 [facility] Comment on above: Performed By: #### B MP, PHOS, MG, ALB, URIC #### [facility] [address] [place] [address] Dr. Lilly Cordova CO2 [Moles/Vol] 25.0 mmol/L Normal 21.0-32.0 [facility] Comment on above: Performed By: #### B MP, PHOS, MG, ALB, URIC #### [facility] [address] [place] [address] Dr. Lilly Cordova Creatinine [Mass/Vol] 1.79 mg/dL Critically high 0.70-1.30 [facility] Comment on above: Performed By: #### B MP, PHOS, MG, ALB, URIC #### [facility] [address] [place] [address] Dr. Lilly Cordova EGFR-AF BOLIVIAN 45 mL/min/1.73m2 Critically low >=60 [facility] Comment on above: Performed By: #### B MP, PHOS, MG, ALB, URIC #### [facility] [address] [place] [address] Dr. Lilly Cordova EGFR-NON AF BOLIVIAN 37 mL/min/1.73m2 Critically low >=60 [facility] Comment on above: Performed By: #### B MP, PHOS, MG, ALB, URIC #### [facility] [address] [place] [address] Dr. Lilly Cordova Glucose [Mass/Vol] 106 mg/dL Normal 74-106 [facility] Comment on above: Performed By: #### B MP, PHOS, MG, ALB, URIC #### [facility] [address] [place] [address] Dr. Lilly Cordova Potassium [Moles/Vol] 5.0 mmol/L Normal 3.5-5.1 [facility] Comment on above: Performed By: #### B MP, PHOS, MG, ALB, URIC #### [facility] [address] [place] [address] Dr. Lilly Cordova Sodium [Moles/Vol] 135 mmol/L Critically low 136-145 [facility] Comment on above: Performed By: #### B MP, PHOS, MG, ALB, URIC #### [facility] [address] [place] [address] Dr. Lilly Cordova Urea nitrogen [Mass/Vol] 35.0 mg/dL Critically high 7.0-18 .0 [facility] Comment on above: Performed By: #### B MP, PHOS, MG, ALB, URIC #### [facility] [address] [place] [address] Dr. Lilly Cordova Urea nitrogen/Creatinine [Mass ratio] 19.6 mg/mg Normal [facility] Comment on above: Performed By: #### B MP, PHOS, MG, ALB, URIC #### [facility] [address] [place] [address] Dr. Lilly Cordova UA (CLEAN/CATCH) PHARMACY TECHNICIAN ASSISTANT/MICRO I F IND.on 11-04-2022 Bilirubin Ql (U) Negative Normal NEGATIVE [facility] Comment on above: Performed By: #### H H #### [facility] [address] [place] [address] Dr. Lilly Cordova Clarity (U) CLEAR Normal CLEAR [facility] Comment on above: Performed By: #### H H #### [facility] [address] [place] [address] Dr. Lilly Crodova Color (U) LT. YELLOW Normal YELLOW [facility] Comment on above: Performed By: #### H H #### [facility] [address] [place] [address] Dr. Lilly Cordova Glucose Ql (U) Negative Normal NEGATIVE [facility] Comment on above: Performed By: #### H H #### [facility] [address] [place] [address] Dr. Lilly Cordova Hemoglobin Ql (U) MODERATE Abnormal NEGATIVE [facility] Comment on above: Performed By: #### H H #### [facility] [address] [place] [address] Dr. Lilly Cordova Ketones Ql (U) Negative Normal NEGATIVE [facility] Comment on above: Performed By: #### H H #### [facility] [address] [place] [address] Dr. Lilly Cordova LEUKOCYTES MODERATE Abnormal NEGATIVE [facility] Comment on above: Performed By: #### H H #### [facility] [address] [place] [address] Dr. Lilly Cordova Nitrite Ql (U) Positive Abnormal NEGATIVE [facility] Comment on above: Performed By: #### H H #### [facility] [address] [place] [address] Dr. Lilly Cordova pH (U) 7.5 [pH] Normal 5-9 [facility] Comment on above: Performed By: #### H H #### [facility] [address] [place] [address] Dr. Lilly Cordova SPEC GRAVITY 1.010 Normal 1.005-<=1.0 25 [facility] Comment on above: Performed By: #### H H #### [facility] [address] [place] [address] Dr. Lilly Cordova UA PROTEIN 30 mg/dl Abnormal NEGATIVE/ TRACE [facility] Comment on above: Performed By: #### H H #### [facility] [address] [place] [address] Dr. Lilly Cordova UR MICRO IND INDICATED Normal [facility] Comment on above: Performed By: #### H H #### [facility] [address] [place] [address] Dr. Lilly Cordova Urobilinogen Qn (U) 0.2 {Raffi'U}/dL Normal 0.2 - 1. 0 [facility] Comment on above: Performed By: #### H H #### [facility] [address] [place] [address] Dr. Lilly Cordova URIC ACID SERUMon 11-04-2022 Urate [Mass/Vol] 5.2 mg/dL Normal 3.5-7.2 [facility] Comment on above: Performed By: #### B MP, PHOS, MG, ALB, URIC #### [facility] [address] [place] [address] Dr. Lilly Cordova URINE MICROSCOPIC ONLYon BACTERIA TRACE Abnormal NONE SEEN [facility] Comment on above: Performed By: #### H H #### [facility] [address] [place] [address] Dr. Lilly Cordova Bacteria identified Cx Nom (U) INDICATED Normal [facility] Comment on above: Performed By: #### H H #### [facility] [address] [place] [address] Dr. Lilly Cordova CAST NONE SEEN Normal NONE SEEN [facility] Comment on above: Performed By: #### H H #### [facility] [address] [place] [address] Dr. Lilly Cordova Crystals LM Nom (Urine sed) NONE SEEN Normal NONE SEEN [facility] Comment on above: Performed By: #### H H #### [facility] [address] [place] [address] Dr. Lilly Cordova Epithelial cells LM Ql (Urine sed) NONE SEEN Normal NONE SEEN /RARE [facility] Comment on above: Performed By: #### H H #### [facility] [address] [place] [address] Dr. Lilly Cordova MUCOUS NONE SEEN Normal NONE SEEN [facility] Comment on above: Performed By: #### H H #### [facility] [address] [place] [address] Dr. Lilly Cordova RBC 2-5 Abnormal 0-2 [facility] Comment on above: Performed By: #### H H #### [facility] [address] [address] [address] Lilly Cordova WBC 10-20 Abnormal NONE SEEN [facility] Comment on above: Performed By: #### H H #### [facility] [address] [place] [address] Dr. Lilly Cordova VITAMIN D 25 OHon 11-04-2022 VIT D 25-OH 58.3 ng/mL Normal [facility] Comment on above: Performed By: #### H H #### [facility] [address] [place] [address] Dr. Lilly Cordova VIT D RANGES SEE BELOW Normal [facility] Comment on above: Result Comment: <20 ng/mL Vit D deficient 20 - <30 ng/mL Vit D insufficient 30 - 100 ng/mL Vit D sufficient >100 ng/mL Potential Toxicity Performed By: #### H H #### [facility] [address] [place] [address] Dr. Lilly Cordova HEMOGLOBINon 07-10-2022 Hemoglobin (Bld) [Mass/Vol] 11.6 g/dL Critically low 14.0-18.0 [facility] Comment on above: Performed By: #### H GB #### [facility] [address] [place] [address] Dr. Lilly Cordova NM STRESS/REST MULTIon 06-03 NM STRESS/REST MULTI Patient: MYKEL OLIVERA Exam Date: 06/03/2022 : 1940 Gender:M Ordering : ZOILA ROQUE [facility] Admission #: [id number] Family : Order #: [id number] CLICK HERE TO VIEW EXAM RADIOLOGY REPORT [...] 4. Normal exercise test Dictated by: Kannan Holland MD on 06/04/2022 at 07:47 Approved by: Kannan Holland MD on 06/04/2022 at 07:50 Normal [facility] PROF CHEM 8 (BAS METB)on Anion gap [Moles/Vol] 11.2 mmol/L Normal [facility] Comment on above: Performed By: #### H H #### [facility] [address] [place] [address] Dr. Lilly Cordova Calcium [Mass/Vol] 8.8 mg/dL Normal 8.5-10.1 [facility] Comment on above: Performed By: #### H H #### [facility] [address] [place] [address] Dr. Lilly Cordova Chloride [Moles/Vol] 103 mmol/L Normal 98-107 [facility] Comment on above: Performed By: #### H H #### [facility] [address] [place] [address] Dr. Lilly Cordova CO2 [Moles/Vol] 25.2 mmol/L Normal 21.0-32.0 [facility] Comment on above: Performed By: #### H H #### [facility] [address] [place] [address] Dr. Lilly Cordova Creatinine [Mass/Vol] 1.87 mg/dL Critically high 0.70-1.30 [facility] Comment on above: Performed By: #### H H #### [facility] [address] [address] [address] Lilly Cordova EGFR-AF BOLIVIAN 42 mL/min/1.73m2 Critically low >=60 [facility] Comment on above: Performed By: #### H H #### [facility] [address] [address] [address] Lilly Cordova EGFR-NON AF BOLIVIAN 35 mL/min/1.73m2 Critically low >=60 [facility] Comment on above: Performed By: #### H H #### [facility] [address] [place] [address] Dr. Lilly Cordova Glucose [Mass/Vol] 126 mg/dL Critically high 74-106 [facility] Comment on above: Performed By: #### H H #### [facility] [address] [place] [address] Dr. Lilly Cordova Potassium [Moles/Vol] 4.4 mmol/L Normal 3.5-5.1 [facility] Comment on above: Performed By: #### H H #### [facility] [address] [place] [address] Dr. Lilly Cordova Sodium [Moles/Vol] 135 mmol/L Critically low 136-145 [facility] Comment on above: Performed By: #### H H #### [facility] [address] [place] [address] Dr. Lilly Cordova Urea nitrogen [Mass/Vol] 32.0 mg/dL Critically high 7.0-18 .0 [facility] Comment on above: Performed By: #### H H #### [facility] [address] [place] [address] Dr. Lilly Cordova Urea nitrogen/Creatinine [Mass ratio] 17.1 mg/mg Normal [facility] Comment on above: Performed By: #### H H #### [facility] [address] [place] [address] Dr. Lilly Cordova PTH INTACTon 05-07-2022 PTH, Intact 28 pg/mL Normal 15-65 [facility] Comment on above: Performed By: #### P THINT #### [facility] [address] [place] [address] Dr. Lilly Cordova HEMOGRAM AND PLATELon 2021 Hematocrit (Bld) [Volume fraction] 34.2 % Critically low 42.0-54.0 [facility] Comment on above: Performed By: #### H H #### [facility] [address] [place] [address] Dr. Lilly Cordova Hemoglobin (Bld) [Mass/Vol] 11.5 g/dL Critically low 14.0-18.0 [facility] Comment on above: Performed By: #### H H #### [facility] [address] [place] [address] Dr. Lilly Cordova MCH (RBC) [Entitic mass] 31.3 pg Normal 25.9-34.0 [facility] Comment on above: Performed By: #### H H #### [facility] [address] [place] [address] Dr. Lilly Cordova MCHC (RBC) [Mass/Vol] 33.6 g/dL Normal 29.9-35.2 [facility] Comment on above: Performed By: #### H H #### [facility] [address] [place] [address] Dr. Lilly Cordova MCV (RBC) [Entitic vol] 93.2 fL Normal 80.0-94.0 [facility] Comment on above: Performed By: #### H H #### [facility] [address] [place] [address] Dr. Lilly Cordova PLT 130 103/ul Critically low 150-450 [facility] Comment on above: Performed By: #### H H #### [facility] [address] [place] [address] Dr. Lilly Cordova RBC 3.67 106/ul Critically low 4.70-6.10 [facility] Comment on above: Performed By: #### H H #### [facility] [address] [place] [address] Dr. Lilly Cordova WBC 6.5 103/ul Normal 4.0-11.0 [facility] Comment on above: Performed By: #### H H #### [facility] [address] [place] [address] Dr. Lilly Cordova MAGNESIUMon 05-06-2022 Magnesium [Mass/Vol] 1.4 mg/dL Critically low 1.8-2.4 [facility] Comment on above: Performed By: #### P THINT #### [facility] [address] [place] [address] Dr. Lilly Cordova PHOSPHORUSon 05-06-2022 Phosphate [Mass/Vol] 3.0 mg/dL Normal 2.6-4.7 [facility] Comment on above: Performed By: #### P THINT #### [facility] [address] [place] [address] Dr. Lilly Cordova PROF CHEM 8 (BAS METB)on Anion gap [Moles/Vol] 10.5 mmol/L Normal [facility] Comment on above: Performed By: #### P THINT #### [facility] [address] [place] [address] Dr. Lilly Cordova Calcium [Mass/Vol] 9.1 mg/dL Normal 8.5-10.1 [facility] Comment on above: Performed By: #### P THINT #### [facility] [address] [place] [address] Dr. Lilly Cordova Chloride [Moles/Vol] 103 mmol/L Normal 98-107 [facility] Comment on above: Performed By: #### P THINT #### [facility] [address] [place] [address] Dr. Lilly Cordova CO2 [Moles/Vol] 27.9 mmol/L Normal 21.0-32.0 [facility] Comment on above: Performed By: #### P THINT #### [facility] [address] [place] [address] Dr. Lilly Cordova Creatinine [Mass/Vol] 1.77 mg/dL Critically high 0.70-1.30 [facility] Comment on above: Performed By: #### P THINT #### [facility] [address] [address] [address] Lilly Cordova EGFR-AF BOLIVIAN 45 mL/min/1.73m2 Critically low >=60 [facility] Comment on above: Performed By: #### P THINT #### [facility] [address] [address] [address] Lilly Cordova EGFR-NON AF BOLIVIAN 37 mL/min/1.73m2 Critically low >=60 [facility] Comment on above: Performed By: #### P THINT #### [facility] [address] [address] [address] Lilly Cordova Glucose [Mass/Vol] 98 mg/dL Normal 74-106 [facility] Comment on above: Performed By: #### P THINT #### [facility] [address] [address] [address] Lilly Cordova Potassium [Moles/Vol] 5.4 mmol/L Critically high 3.5-5.1 [facility] Comment on above: Performed By: #### P THINT #### [facility] [address] [address] [address] Lilly Cordova Sodium [Moles/Vol] 136 mmol/L Normal 136-145 [facility] Comment on above: Performed By: #### P THINT #### [facility] [address] [address] [address] Lilly Cordova Urea nitrogen [Mass/Vol] 30.0 mg/dL Critically high 7.0-18 .0 [facility] Comment on above: Performed By: #### P THINT #### [facility] [address] [address] [address] Lilly Cordova Urea nitrogen/Creatinine [Mass ratio] 16.9 mg/mg Normal [facility] Comment on above: Performed By: #### P THINT #### [facility] [address] [address] [address] Lilly Cordova URIC ACID SERUMon 05-06-2022 Urate [Mass/Vol] 5.2 mg/dL Normal 3.5-7.2 [facility] Comment on above: Performed By: #### P THINT #### [facility] [address] [address] [address] Lilly Cordova VITAMIN D 25 OHon 05-06-2022 VIT D 25-OH 56.4 ng/mL Normal [facility] Comment on above: Performed By: #### V ITAD #### [facility] [address] [address] [address] Lilly Cordova VIT D RANGES SEE BELOW Normal [facility] Comment on above: Result Comment: <20 ng/mL Vit D deficient 20 - <30 ng/mL Vit D insufficient 30 - 100 ng/mL Vit D sufficient >100 ng/mL Potential Toxicity Performed By: #### V ITAD #### [facility] [address] [place] [address] Dr. Lilly Cordova ECHOCARDIO M/2D COMPLETEon 0 04-16-2022 ECHOCARDIO M/2D COMPLETE Patient: MYKEL OLIVERA Exam Date: 04/16/2022 : 1940 Gender:M Ordering : LEANNA CROSS Admission #: [id number] Family : DR BENSON HERCULES D.O. Order #: [id number] CLICK HERE TO VIEW EXAM ECHOCARDIOGRAM REPORT [...] Gregg M.D. on 04/18/2022 at 16:09 Normal [facility] Vital Signs Date Time Vital Sign Value Performing Clinician Facility 06-09-2024 08:23-0500 Body height 182.88 cm [facility] 06-09-2024 08:23-0500 Body mass index (BMI) [Ratio] 20.5 kg/m2 [facility] 06-09-2024 08:23-0500 Body weight 68.49 kg [facility] 06-09-2024 08:23-0500 Diastolic blood pressure 80 mm[Hg] [facility] 06-09-2024 08:23-0500 Heart rate 93 /min [facility] 06-09-2024 08:23-0500 SaO2% (BldA) [Mass fraction] 98 % [facility] 06-09-2024 08:23-0500 Systolic blood pressure 148 mm[Hg] [facility] 04-02-2024 09:59-0400 Body height 182.88 cm DO Benson Ball Work Phone: [facility] 04-02-2024 09:59-0400 Body mass index (BMI) [Ratio] 22.2 kg/m2 DO Benson Ball Work Phone: [facility] 04-02-2024 09:59-0400 Body weight 74.44 kg DO Benson Ball Work Phone: [facility] 04-02-2024 09:59-0400 Diastolic blood pressure 76 mm[Hg] DO Benson Ball Work Phone: [facility] 04-02-2024 09:59-0400 Heart rate 85 /min DO Benson Ball Work Phone: [facility] 04-02-2024 09:59-0400 Respiratory rate 12 /min DO Bensno Ball Work Phone: [facility] 04-02-2024 09:59-0400 Systolic blood pressure 176 mm[Hg] DO Benson Ball Work Phone: [facility] 12-31-2023 10:49-0400 Body height 182.88 cm DO Benson Ball Work Phone: [facility] 12-31-2023 10:49-0400 Body mass index (BMI) [Ratio] 23.3 kg/m2 DO Benson Ball Work Phone: [facility] 12-31-2023 10:49-0400 Body weight 78.24 kg DO Benson Ball Work Phone: [facility] 12-31-2023 10:49-0400 Diastolic blood pressure 80 mm[Hg] DO Benson Ball Work Phone: [facility] 12-31-2023 10:49-0400 Heart rate 86 /min DO Benson Ball Work Phone: [facility] 12-31-2023 10:49-0400 Respiratory rate 12 /min DO Benson Ball Work Phone: [facility] 12-31-2023 10:49-0400 Systolic blood pressure 193 mm[Hg] DO Benson Ball Work Phone: [facility] 09-30-2023 10:26-0500 Body height 182.88 cm DO Benson Ball Work Phone: [facility] 09-30-2023 10:26-0500 Body mass index (BMI) [Ratio] 23.6 kg/m2 DO Benson Ball Work Phone: [facility] 09-30-2023 10:26-0500 Body weight 79.09 kg DO Benson Ball Work Phone: [facility] 09-30-2023 10:26-0500 Diastolic blood pressure 65 mm[Hg] DO Benson Ball Work Phone: [facility] 09-30-2023 10:26-0500 Heart rate 93 /min DO Benson Ball Work Phone: [facility] 09-30-2023 10:26-0500 Respiratory rate 12 /min DO Benson Ball Work Phone: [facility] 09-30-2023 10:26-0500 Systolic blood pressure 167 mm[Hg] DO Benson Ball Work Phone: [facility] 08-05-2023 05:03-0500 Diastolic blood pressure 77 mm[Hg] DO Benson Ball Work Phone: [facility] 08-05-2023 05:03-0500 Heart rate 97 /min DO Benson Ball Work Phone: [facility] 08-05-2023 05:03-0500 Respiratory rate 18 /min DO Benson Ball Work Phone: [facility] 08-05-2023 05:03-0500 SaO2% (BldA) [Mass fraction] 99 % DO Benson Ball Work Phone: [facility] 08-05-2023 05:03-0500 Systolic blood pressure 173 mm[Hg] DO Benson Ball Work Phone: [facility] 08-05-2023 00:36-0500 Body height 182.88 cm DO Benson Ball Work Phone: [facility] 08-05-2023 00:36-0500 Body temperature 97.5 [degF] DO Benson Ball Work Phone: [facility] 08-05-2023 00:36-0500 Body weight 80.9 kg DO Benson Ball Work Phone: [facility] 07-29-2023 10:30-0500 Body height 177.8 cm Benson Ball Other [facility] Other 07-29-2023 10:30-0500 Body mass index (BMI) [Ratio] 25.57 kg/m2 Benson Ball Other [facility] Other 07-29-2023 10:30-0500 Body weight 80.83 kg Benson Ball Other [facility] Other 07-29-2023 10:30-0500 Diastolic blood pressure 73 mm[Hg] Benson Ball Other [employer] Other 07-29-2023 10:30-0500 Respiratory rate 12 /min Benson Ball Other [employer] Other 07-29-2023 10:30-0500 Systolic blood pressure 191 mm[Hg] Benson Ball Other [employer] Other 04-25-2023 11:30-0400 Body height 177.8 cm Benson Ball Other [employer] Other 04-25-2023 11:30-0400 Body mass index (BMI) [Ratio] 25.42 kg/m2 Benson Ball Other [employer] Other 04-25-2023 11:30-0400 Body weight 80.38 kg Benson Ball Other [employer] Other 04-25-2023 11:30-0400 Diastolic blood pressure 80 mm[Hg] Benson Ball Other [employer] Other 04-25-2023 11:30-0400 Respiratory rate 12 /min Benson Ball Other [employer] Other 04-25-2023 11:30-0400 Systolic blood pressure 150 mm[Hg] Benson Ball Other [employer] Other 01-23-2023 11:00-0400 Body height 177.8 cm Benson Ball Other [employer] Other 01-23-2023 11:00-0400 Body mass index (BMI) [Ratio] 25.57 kg/m2 Benson Ball Other [employer] Other 01-23-2023 11:00-0400 Body weight 80.83 kg Benson Ball Other [employer] Other 01-23-2023 11:00-0400 Diastolic blood pressure 57 mm[Hg] Benson Ball Other [employer] Other 01-23-2023 11:00-0400 Respiratory rate 12 /min Benson Ball Other [employer] Other 01-23-2023 11:00-0400 Systolic blood pressure 146 mm[Hg] Benson Ball Other [employer] Other 10-23-2022 12:00-0400 Body height 177.8 cm Benson Ball Other [employer] Other 10-23-2022 12:00-0400 Body mass index (BMI) [Ratio] 25.82 kg/m2 Benson Ball Other [employer] Other 10-23-2022 12:00-0400 Body weight 81.65 kg Benson Ball Other [employer] Other 10-23-2022 12:00-0400 Diastolic blood pressure 72 mm[Hg] Benson Ball Other [employer] Other 10-23-2022 12:00-0400 Respiratory rate 12 /min Benson Ball Other [employer] Other 10-23-2022 12:00-0400 Systolic blood pressure 158 mm[Hg] Benson Ball Other [employer] Other 07-03-2022 11:14-0500 Body weight 0 kg DO Benson Ball Work Phone: [facility] 03-26-2022 15:15-0400 Body weight 0 kg DO Benson Hercules Work Phone: [facility] 12-19-2021 [id number] Body weight 0 kg DO Benson Hercules Work Phone: [facility] Encounters Encounter Date Encounter Type Care Provider Facility Start: 06-17-2024 End: 06-17-2024 Lab Drop off Sarah Ba Robsimone [facility] Start: 06-17-2024 End: 06-17-2024 ambulatory Sarah Ba Robsimone Facility:[facility] Start: 06-17-2024 End: 06-17-2024 Patient encounter procedure Kami Adrianne VENEGAS [facility] Start: 06-15-2024 End: 06-15-2024 Documentation procedure Xiomara aguiar [facility] Start: 06-15-2024 End: 06-15-2024 Telephone encounter Khushi silver [facility] Start: 06-14-2024 ambulatory Benson Hercules Facility: [facility] Start: 06-09-2024 End: 06-09-2024 ambulatory [facility] Start: 06-09-2024 End: 06-09-2024 ambulatory [facility] Work Phone: Start: 06-09-2024 End: 06-09-2024 Patient encounter procedure [facility] Work Phone: Start: 06-07-2024 Non-patient / Non-visit [facility] Work Phone: Start: 05-30-2024 End: 06-13-2024 Telephone encounter Caprice silver Start: 05-26-2024 End: 06-04-2024 Evaluation and management of inpatient UNKNOWN PHYSICIAN [facility] Start: 05-25-2024 Non-patient / Non-visit [facility] Work Phone: Start: 05-25-2024 ambulatory [facility] Start: 05-25-2024 Non-patient / Non-visit [facility] Work Phone: Start: 05-24-2024 Non-patient / Non-visit [facility] Work Phone: Start: 05-24-2024 Non-patient / Non-visit [facility] Work Phone: Start: 05-19-2024 End: 05-19-2024 ambulatory [facility] Start: 05-13-2024 Non-patient / Non-visit [facility] Work Phone: Start: 04-19-2024 End: 04-19-2024 [facility] Start: 04-02-2024 End: 04-02-2024 ambulatory DO Benson Hercules Work Phone: [facility] Work Phone: Start: 04-02-2024 End: 04-02-2024 Patient encounter procedure DO Benson Ball Work Phone: [facility] Di[facility] Work Phone: Start: 04-01-2024 End: 04-01-2024 ambulatory Kami VENEGAS Facility:[facility] Start: 04-01-2024 End: 04-01-2024 Lab Drop off Kami VENEGAS [facility] Start: 04-01-2024 End: 04-01-2024 ambulatory Kami VENEGAS Facility:[facility] Start: 04-01-2024 End: 04-01-2024 Patient encounter procedure [facility] Start: 02-13-2024 End: 02-13-2024 Admission to same day surgery center DO Benson Ball Work Phone: [facility] Work Phone: Start: 02-13-2024 End: 02-13-2024 ambulatory DO Benson Ball Work Phone: [facility] Work Phone: Start: 02-09-2024 End: 02-09-2024 ambulatory Kami VENEGAS Facility::[id number] Start: 02-02-2024 End: 02-02-2024 ambulatory Kami VENEGAS Facility:[facility] Start: 02-02-2024 End: 02-02-2024 Lab Drop off Kami VENEGAS [facility] Start: 02-02-2024 End: 02-02-2024 ambulatory Kami VENEGAS Facility:[facility] Start: 02-02-2024 End: 02-02-2024 Patient encounter procedure Kami VENEGAS [facility] Start: 12-31-2023 End: 12-31-2023 ambulatory DO Benson Ball Work Phone: [facility] Work Phone: Start: 12-31-2023 End: 12-31-2023 Patient encounter procedure DO Benson Ball Work Phone: [facility] Work Phone: Start: 11-21-2023 End: 11-21-2023 Admission to same day surgery center DO Benson Ball Work Phone: [facility] Work Phone: Start: 11-21-2023 End: 11-21-2023 ambulatory DO Benson Ball Work Phone: [facility] Work Phone: Start: 11-03-2023 Non-patient / Non-visit DO Boone Hercules Work Phone: [facility] [employer] Work Phone: Start: 10-08-2023 Non-patient / Non-visit DO Boone Hercules Work Phone: [facility] Work Phone: Start: 10-07-2023 End: 10-07-2023 ambulatory RAJENDRA UNÑEZ [facility] Start: 09-30-2023 End: 09-30-2023 Patient encounter procedure DO Benson Hercules Work Phone: [facility] Work Phone: Start: 08-14-2023 End: 08-14-2023 Emergency department patient visit LANEY DOWLING [facility] Start: 08-05-2023 End: 08-05-2023 ambulatory Benson Hercules Other [employer] Other Start: 08-05-2023 Telephone encounter Benson Diomedes FRAZIER [facility] Start: 08-05-2023 End: 08-05-2023 Emergency department patient visit DO Benson Hercules Work Phone: [facility]Emer[facility] Work Phone: Start: 08-01-2023 End: 08-01-2023 ambulatory Benson Hercules Other [employer] Other Start: 08-01-2023 Telephone encounter Benson FRAZIER [facility] Start: 07-29-2023 End: 07-29-2023 ambulatory Benson Hercules Other [employer] Other Start: 07-29-2023 Patient encounter procedure Benson Diomedes [facility] Start: 07-29-2023 Telephone encounter Benson FRAZIER [facility] Start: 07-25-2023 End: 07-25-2023 Admission to same day surgery center DO Benson Ball Work Phone: [facility] Work Phone: Start: 07-25-2023 End: 07-25-2023 ambulatory DO Benson Ball Work Phone: [facility] Work Phone: Start: 05-28-2023 End: 05-28-2023 ambulatory Benson Ball Other [employer] Other Start: 05-28-2023 Telephone encounter Benson Ball [facility] Start: 04-25-2023 End: 04-25-2023 ambulatory Benson Ball Other [employer] Other Start: 04-25-2023 Office outpatient vi sit 25 minutes Benson Ball [facility] Start: 03-28-2023 End: 03-28-2023 ambulatory Benson Ball Other [employer] Other Start: 03-28-2023 Telephone encounter Benson Ball FP [facility] Start: 02-11-2023 End: 02-11-2023 ambulatory Benson Ball Other [employer] Other Start: 02-11-2023 Telephone encounter Benson Ball FP [facility] Start: 01-29-2023 End: 01-29-2023 ambulatory Benson Ball Other [employer] Other Start: 01-29-2023 Telephone encounter Benson Ball FP [facility] Start: 01-23-2023 End: 01-23-2023 ambulatory Benson Ball Other [employer] Other Start: 01-23-2023 Office outpatient vi sit 25 minutes Benson Ball [facility] Start: 01-21-2023 End: 01-21-2023 Admission to same day surgery center DO Benson Ball Work Phone: [facility] Work Phone: Start: 01-21-2023 End: 01-21-2023 ambulatory DO Benson Hercules Work Phone: [facility] Work Phone: Start: 01-13-2023 End: 01-13-2023 ambulatory Benson Hercules Other [employer] Other Start: 01-13-2023 Telephone encounter Benson Hercules [facility] Start: 12-25-2022 End: 12-25-2022 ambulatory Benson Hercules Other [employer] Other Start: 12-25-2022 Telephone encounter Benson Hercules FP [facility] Start: 12-24-2022 Telephone encounter Benson Hercules FP [facility] Start: 12-24-2022 End: 12-25-[address] KAMI VENEGAS . [employer] Other Start: 12-09-2022 Telephone encounter Benson Hercules [facility] Start: 12-09-2022 End: 12-09-[address] KAMI VENEGAS . [employer] Other Start: 12-05-2022 End: 12-05-2022 ambulatory Benson Hercules Other [employer] Other Start: 12-05-2022 Telephone encounter Benson Hercules FP [facility] Start: 12-03-2022 End: 12-03-2022 Patient encounter procedure Kami VENEGAS [facility] Start: 11-12-2022 End: 11-13-[address] BENSON HERCULES Facility: Start: 11-06-2022 End: 11-06-2022 ambulatory Benson Diomedes Other [employer] Other Start: 11-06-2022 Telephone encounter Benson Hercules [facility] Start: 11-04-2022 End: 11-04-2022 Lab Drop off aKmi VENEGAS [facility] Start: 11-04-2022 End: 11-05-[address] DOCTOR BURTON [employer] [facility] [place] Other Start: 11-04-2022 Telephone encounter Benson Hercules [facility] Start: 11-04-2022 End: 11-04-2022 Patient encounter procedure Kami VENEGAS [facility] Start: 10-31-2022 End: 11-01-[address] BENSON HERCULES Facility: Start: 10-24-2022 Telephone encounter Benson Hercules [facility] Start: 10-24-2022 End: 10-25-[address] BENSON HERCULES [employer] [facility] [place] Other Start: 10-23-2022 End: 10-23-2022 ambulatory Benson Hercules Other [employer] Other Start: 10-23-2022 Office outpatient vi sit 25 minutes Benson Hercules [facility] Start: 10-21-2022 End: 10-21-2022 Lab Drop off Kami VENEGAS [facility] Start: 10-21-2022 End: 10-21-2022 Patient encounter procedure XXXX NONE [facility] Start: 10-14-2022 End: 10-14-2022 Admission to same day surgery center DO Benson Hercules Work Phone: [facility] Work Phone: Start: 10-14-2022 End: 10-14-2022 ambulatory DO Benson Hercules Work Phone: [facility] Work Phone: Start: 07-23-2022 End: 07-23-2022 Admission to same day surgery center DO Benson Hercules Work Phone: [facility] Work Phone: Start: 07-10-2022 End: 07-11-[address] EMANUEL GREGG Facility:[facility] Start: 06-19-2022 End: 06-19-2022 Lab Drop off CHARLENE BAILON [facility] Start: 06-19-2022 End: 06-19-2022 Patient encounter procedure Farideh MeyerJosefina Gong [facility] Start: 06-03-2022 End: 06-04-[address] KANNAN HOLLAND Facility:[facility] Start: 05-14-2022 End: 05-15-[address] GAETANO FIELD Facility:[facility] Start: 05-06-2022 End: 05-07-[address] BENSON HERCULES Facility:[facility] Start: 04-29-2022 End: 04-29-[address] BENSON HERCULES Facility:[facility] Start: 04-26-2022 End: 04-26-2022 Patient encounter procedure Kami VENEGAS [facility] Start: 04-16-2022 End: 04-17-[address] BENSON HERCULES Facility:[facility] Start: 04-08-2022 End: 04-08-2022 Patient encounter procedure [facility]EGAS [facility] Start: 04-05-2022 End: 04-05-2022 Admission to same day surgery center DO Benson Hercules Work Phone: [facility] Start: 01-02-2022 End: 01-02-2022 Admission to same day surgery center DO Benson Hercules Work Phone: [facility] Start: 11-21-2021 End: 11-21-2021 Patient encounter procedure Faridehvaleriy Gong [facility] Start: 11-02-2021 End: 11-02-2021 Patient encounter procedure Kami Silver VENEGAS [facility] Start: 10-22-2021 Adult health examination Carlin Hercules Other [employer] Other Start: 09-27-2020 End: 10-12-2020 Patient encounter procedure RICHIE ISABELLE Facility:[facility] Procedures Date Procedure Procedure Detail Performing Clinician Start: 05-26-2024 Adult depression scr eening assessment Caprice Lanoch Start: 05-25-2024 Blood Culture 1 Start: 05-25-2024 Blood Culture 2 Start: 02-13-2024 Replacement of nephr ostomy tube [...] Replacement of nephr ostomy tube DO Benson Hercules Work Phone: Start: 01-02-2022 Maintenance of tube DO Benson Hercules Work Phone: Start: 12-10-2018 Mitomycin (product) Marta VENEGAS Comment on above: 12/10/2018, 01/11/2019 Start: 12-01-2017 Fluoroscopy guided r ight nephrostomy Kami VENEGAS Start: 12-26-2016 Coronary artery bypa ss grafts x 4 Kami VENEGAS Start: 06-16-2014 Lithotripsy Kami ESCOBEDO Comment on above: RT ESWL * 06/16/2014 , 07/11/2016 Start: 06-01-2009 Replacement of stent Pa sharmila VENEGAS Comment on above: 06/01/2009* cysto, st ent change, fulguration of bladder lesions 12/07/2009* cysto, right stent change, fulguration of bladder lesions Cysto, right stent change * 04/26/10, 10/03/11, 04/02/12, 02/04/13, 09/10/12, 07/15/13, 05/26/14, 09/29/14, 03/09/15, 08/03/15, 01/18/16, 06/13/16, 10/31/16, 05/01/17, 11/13/17 Start: 03-02-2009 Cystoscopy Kami ESCOBEDO Comment on above: 03/02/2009, 09/11/09, 03/05/10 Start: 08-25-2008 Cystoscopy and transurethral resection of bladder tumor Kami VENEGAS Comment on above: 08/25/2008, 12/16/13, 12/16/13, 12/10/18 Start: 08-25-2008 Transurethral resect ion of bladder neoplasm Kami VENEGAS Comment on above: 08/25/2008 * cysto/TU RBT, ureteroscopy, holmium laser of bladder tumors, right stent placement 12/16/13 * cysto/TURBT 12/16/13 * cysto/TURBT, ureter, right stent change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 are maintaining regular scheduled appts with their sign language teacher. Discussed need for AC to prevent thromboembolic [...] surveillance CT Denies CP, dyspnea or hemoptysis [facility] Other 06-19-2023 Evaluation note* Encounter Date Diagnosis Assessment Notes Treatment Notes Treatment Clinical Notes Dec, Lumbar spondylosis (ICD-10 - M47.816) [facility] Other 05-11-2023 Evaluation note* Encounter Date Diagnosis Assessment Notes Treatment Notes Treatment Clinical Notes November, Lumbar spondylosis (ICD-10 - M47.816) [facility] Other 05-09-2023 Evaluation + Plan note Diagnostic Tests Pending * UroVysion Fish and Urine Cyto ([facility]) 12/03/22 [facility] Evaluation note* Encounter Date Diagnosis Assessment Notes Treatment Notes Treatment Clinical Notes Oct, Second degree Mobitz I AV block (ICD-10 - I44.1) [facility] Other 03-30-2023 Evaluation note* Encounter Date Diagnosis Assessment Notes Treatment Notes Treatment Clinical Notes Sep, Ischemic cardiomyopathy (ICD-10 - I25.5) Sep, Lumbar spondylosis (ICD-10 - M47.816) [facility] Other 03-29-2023 Evaluation note* Encounter Date Diagnosis [...] are maintaining regular scheduled appts with their sign language teacher. Sep, IFG (impaired fastin g glucose) (ICD-10 [...] bronchitis (ICD-10 - J41.1) Declined f/u w/ youth care specialist Stiolto w/o benefit No breathlessness, wheeziong [...] - R00.1) Slow AFib? EKG order sent [facility] Other 03-27-2023 Evaluation + Plan note Diagnostic Tests Pending * Urine Culture 10/21/22 [facility]11-23-2022 Evaluation + Plan note Diagnostic Tests Pending * Urine Culture 06/19/22 [facility]11-07-2022 NoteCARDIAC STRESS TEST Requesting Physician: Procedure Date:06/03/2022 [...] Myocardial perfusion images will be reported separately.[facility] 04-26-2022 Evaluation + Plan note Diagnostic Tests Pending * UroVysion FISH ([facility]) 04/26/22 [facility] 09-12-2022 Evaluation + Plan note Diagnostic Tests Pending * UroVysion Fish and Urine Cyto ([facility]) 04/08/22 [facility] 04-27-2022 Evaluation + Plan note Diagnostic Tests Pending * UroVysion Fish and Urine Cyto ([facility]) 11/21/21 [facility] 04-08-2022 Evaluation + Plan note Diagnostic Tests Pending * UroVysion Fish and Urine Cyto ([facility]) 11/02/21 [facility] evaluation + Plan note Future Appointments Appointment Date:12/03/2022 09:00:00 AM Scheduled Provider: Location:[facility] Appointment Type:URO Nurse Visit [facility] evaluation + Plan note Future Appointments Appointment Date:12/03/2022 09:00:00 AM Scheduled Provider: Location:[facility] Appointment Type:URO Nurse Visit Diagnostic Tests Pending * [facility]rine Culture [facility]04[facility]22 [facility] note[facility] assessment information available [facility] [email or web address] Work Phone: Evaluxlbtq noteNo InformationNort [employer] Other evaluation note* Diagnosis Onset Date Resolution Status Chronic HFrEF (heart failure with reduced ejection fraction) acute Essential hypertension acute Hyperlipidemia type II acute IFG (impaired fasting glucose) acute Ischemic cardiomyopathy acut e Lumbar spondylosis acute Stage 4 chronic kidney disease acute [facility] Work Phone: Evaluation note* Diagnosis Onset Date Resolution Status Chronic HFrEF (heart failure with reduced ejection fraction) acute Essential hypertension acute Hyperlipidemia type II acute IFG (impaired fasting glucose) acute Ischemic cardiomyopathy acut e Lumbar spondylosis acute Opiate analgesic use agreement exists acute Stage 4 chronic kidney disease [facility] Work Phone: Evaluation note* Diagnosis Onset Date Resolution Status Essential hypertension acute Heart failure with improved ejection fraction (HFimpEF ) acute Hyperlipidemia type II acute IFG (impaired fasting glucose) acute Ischemic cardiomyopathy acut e Lumbar spondylosis acute Opiate analgesic use agreement exists acute Stage 4 chronic kidney disease 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 I assume there was a small blood clot blocking the catheter given the blood in your nephrostomy bag. Call Dr Venegas in the morning to discuss whether anything else needs to be done. If the tube gets obstructed again, come back right away so we can clear it out.[facility] Work Phone: InstructionsNot on filedocumented in this encounter [facility]ructionsNot on filedocumented in this encounter [facility] Health SystemProgress note No data available for this section [facility] Summary Purpose Family History No Family [...] this section No Family History Records Found Advance Directives No Advanced Directives Records Found Advance Directive Response Recorded Date/ Time Advance Directives No December 01, 2017 8:14am Advance Directive Response Recorded Date/ Time Advance Directives No December 01, 2017 7:14am Date Activated Date Inactivated Comments 05/26/2024 2:49 AM 06/04/2024 6:45 PM Chief Complaint and Reason for Visit Chief [...] Stage 4 chronic kidney disease Chief Complaint Admit Date 3 month follow up April 02, 2024 9:52am Amb Documentation June 07, 2024 9:00am CC Adult Risk Stratification June 072023 9:17am [facility] follow up-HIGH RISK June 09, 2024 8:19am Reason for Visit Admit Date Essential hypertension April 02 9:52am Heart failure with improved ejection fra ction (HFimpEF) April 02, 2024 9:52am Hyperlipidemia type II April 02 9:52am IFG (impaired fasting glucose) April 02, 2024 9:52am Ischemic cardiomyopathy April 02 024 9:52am Lumbar spondylosis April 02, 2024 9:52am Opiate analgesic use agreement exists ptember 2023 9:52am Stage 4 chronic kidney disease April 02, 2024 9:52am Additional Source Comments (unrecognized sect ion and content) No Status Records FoundNo Status Records FoundNo Status Records FoundNo Status Records FoundNo Status Records FoundNo Status Records FoundNo Status Records FoundNo Status Records FoundNo Status Records FoundNo Status Records Found INFORMATION SOURCE (unrecogn ized section and content) DATE CREATED AUTHOR 10/12/2020 [facility] DATE CREATED AUTHOR AUTHOR'S ORGANIZ ATION 01/07/2023 [facility] DATE CREATED AUTHOR AUTHOR'S ORGANIZ ATION 04/08/2024 [facility] DATE CREATED AUTHOR AUTHOR'S ORGANIZ ATION 04/09/2024 [facility] DATE CREATED AUTHOR AUTHOR'S ORGANIZ ATION 05/28/2024 [facility] DATE CREATED AUTHOR AUTHOR'S ORGANIZ ATION 06/11/2024 [facility] DATE CREATED AUTHOR AUTHOR'S ORGANIZ ATION 06/11/2024 [facility] DATE CREATED AUTHOR AUTHOR'S ORGANIZ ATION 06/11/2024 [facility] DATE CREATED AUTHOR AUTHOR'S ORGANIZ ATION 06/15/2024 [facility] DATE CREATED AUTHOR AUTHOR'S ORGANIZ ATION [facility]/19[facility]20[facility] Care Teams (unrecognized sec tion and content) Team Status: Active Member Role Status Dates Benson Hercules , DO Primary Care Provider Active Team Status: Inactive Member Role Status Dates Benson Hercules DO Primary Care Provider Active Start: November 21, 2023 End: November 21, 2023 Declan Moreira DO Attending Provider Active Star t: November 21, 2023 End: November 21, 2023 Team Status: Inactive Member Role Status Dates Benson Hercules DO Primary Care Provide r, Attending Provider Active Start: December 31, 2023 End: December 31, 2023 Team Status: Inactive Member Role Status Dates Benson Hercules DO Primary Care Provider Active Start: February 13, 2024 End: February 13, 2024 Kami Venegas MD Attending Provider Active St art: February 13, 2024 End: February 13, 2024 Team Status: Active Member Role Status Dates Benson Hercules DO Primary Care Provide r, Attending Provider Active Start: October 08, 2023 Team Status: Active Member Role Status Dates Benson Hercules DO Primary Care Provide r, Attending Provider Active Start: November 03, 2023 Team Status: Inactive Member Role Status Dates Benson Hercules DO Primary Care Provider Active Steven Coronado MD Attending Provider Active Team Status: Inactive Member Role Status Dates Benson Hercules DO Primary Care Provider Active Declan Moreira DO Attending Provider Active Team Status: Inactive Member Role Status Dates Benson Hercules DO Primary Care Provider Active Kami Venegas MD Attending Provider Active Team Status: Inactive Member Role Status Dates Benson Hercules DO Primary Care Provider Active Jose D Hercules Jr, MD Emergency Provider Active Team Status: Inactive Member Role Status Dates Benson Hercules DO Primary Care Provide r, Attending Provider Active Start: September 30, 2023 End: September 30, 2023 Team Status: Inactive Member Role Status Dates Benson Hercules DO Primary Care Provide r, Attending Provider Active Start: April 02, 2024 End: April 02, 2024 Team Status: Active Member Role Status Dates Benson Hercules DO Primary Care Provider Active Start: May 13, 2024 Emanuel Gregg Attending Provider Active Start: May 13, 2024 Team Status: Active Member Role Status Dates Benson Hercules DO Primary Care Provider Active Start: May 24, 2024 Leanna Olivares , DO Attending Provider Active Start: May 24, 2024 Team Status: Active Member Role Status Dates Benson Hercules DO Primary Care Provide r, Attending Provider Active Start: May 24, 2024 Team Status: Active Member Role Status Dates Benson Hercules DO Primary Care Provider Active Start: May 25, 2024 Dimitri Santos Attending Provider Active Start: May 25, 2024 Team Status: Active Member Role Status Dates Benson Hercules DO Primary Care Provide r, Attending Provider Active Start: May 25, 2024 Team Status: Active Member Role Status Dates Benson Hercules DO Primary Care Provider Active Start: June 07, 2024 Sheryl Magana CMA Attending Provider Active Start: June 07, 2024 Team Status: Active Member Role Status Dates Benson Hercules DO Primary Care Provide r, Attending Provider Active Start: June 07, 2024 Team Status: Inactive Member Role Status Dates Benson Hercules DO Primary Care Provide r, Attending Provider Active Start: June 09, 2024 End: June 09, 2024 [employer]otype Machinist Relationship Specialty [place] [address] [place] [address] PCP - General Internal Medicine 05/26/24 Linotype Machinist Relationship Specialty [place] [address] [place] [id number] PCP - General Internal Medicine 05/26/24 Linotype Machinist Relationship Specialty Start Date End Date Benson Hercules DO [address] [place] [address] PCP - General Internal Medicine 05/26/24 Goals (unrecognized section and content) Goals may be documented in a n alternate section REASON FOR VISIT (unrecogniz ed section and content) [address] acardResultsNo InformationrefillNo InformationNo InformationHolter resultsRefill3 month Follow upMedication QuestionPain Med Refill/IncreaseRefills3 month Follow upRefillTesting [facility] resultsRefill FOR RECORDS PERTAINING TO PATIENTS [...] BE BASED ON THE PRIMARY CLINICAL RECORDS. [facility]. provides no warranty or guarantee of the accuracy or completeness of information in this document.
[2024-06-21 10:49] LABS: Bilirubin Urine NEGATIVE (NEGATIVE); Blood Urine MODERATE (NEGATIVE); Clarity Urine CLEAR (CLEAR); Color Urine LT. YELLOW (YELLOW); Glucose Urine UA NEGATIVE (NEGATIVE); Ketones Urine NEGATIVE (NEGATIVE); Leukocyte Esterase Urine TRACE (NEGATIVE); Nitrite Urine NEGATIVE (NEGATIVE); Protein Urine 100 mg/dL (NEG/TRACE); Specific Gravity Urine 1.025 (1.005-1.025); Urobilinogen Urine 0.2 EU/dL (0.2-1.0)
[2024-06-21 11:02] LABS: Hematocrit 30.2 % (42.0-54.0); Hemoglobin 9.4 g/dL (14.0-18.0); Mean Corpuscular HGB Conc 31.1 g/dL (29.9-35.2); Mean Corpuscular Hemoglobin 29.9 pg (25.9-34.0); Mean Corpuscular Volume 96.2 fL (80.0-94.0); Mean Platelet Volume 10.3 fL (9.5-13.5); Platelet Count 315 10^3/uL (150-450); Red Blood Count 3.14 10^6/uL (4.70-6.10); Red Cell Distribution Width 15.4 % (11.0-15.0); White Blood Count 7.9 10^3/uL (4.0-11.0)
[2024-06-21 11:02] LABS: Creatinine Urine Random 60.34 mg/dL (20.00-300.00); Microalbum Creatinine Ratio Ur 293.3 mg/g (0.0-29.9); Microalbumin Urine Random 17.7 mg/dL (<=30.0)
[2024-06-21 11:19] LABS: Albumin Level 2.5 g/dL (3.4-5.0); Anion Gap 16.8; Calcium 9.1 mg/dL (8.5-10.1); Carbon Dioxide 21.1 mmol/L (21.0-32.0); Chloride 97 mmol/L (98-107); Estimated GFR (African America 34 (>=60 mL/min/1.73m^2); Estimated GFR (Non-African Ame 28 (>=60 mL/min/1.73m^2); Glucose 92 mg/dL (74-106); Magnesium 1.7 mg/dL (1.8-2.4); Potassium 5.9 mmol/L (3.5-5.1); Sodium 129 mmol/L (136-145)
[2024-06-22 12:10] LABS: PTH, Intact 39 pg/mL (15-65)
== END 2024-06-21 10:12 | disposition home or self-care (01) ==
LOC: LAB 10:13
PROVIDERS: PCP Internal Medicine
DX: N18.32 Chronic kidney disease, stage 3b (principal)
CPT/HCPCS: 36415; 80048; 81003; 82042; 82043; 82306; 82570; 83735; 83970; 84100; 85027

== ENCOUNTER 2024-07-30 07:36 | Emergency (ER) | payer MEDICARE, SELFPAY ==
[2024-07-30 07:54] VITALS: BP 172/92; PULSE 90; TEMP 36.4; O2SAT 97; BMI 19.8
--- NOTE | 2024-07-30 08:19 | CT_ITS ---
The [address] [address] Patient Name: MYKEL IRIZARRY MRN: [id number] date: 1940 Sex: M Assigned Patient Location: ER Current Patient Location: Accession/Order Number: [id number] Exam Date: 07/30/2024 08:53 Report Date: 07/30/2024 09:34 At the request of: GREGORY LUCIO Procedure: CT thoracic spine wo con CT thoracic spine wo con, CT lumbar spine wo con, 07/30/2024 8:53 AM EST INDICATION: fall COMPARISON: Prior CT of the abdomen pelvis dated 05/25/2024 TECHNIQUE: Axial images of 2 mm are obtained from thoracic and lumbar spine with sagittal and coronal reconstruction withoutcontrast. Dose reduction techniques were achieved by using automated exposure control and/or adjustment of mA and/or kV according to patient size and/or use of iterative reconstruction technique. FINDINGS: There is normal physiologic thoracic kyphosis and lumbar lordosis. There is diffuse demineralization of bone. There is atherosclerosis within the midportion of the right T12 with vertebral height loss for approximately 20% suggesting of recent compression fracture. No other acute fracture or dislocation is noted. The vertebral heights are otherwise preserved. Multilevel degenerative changes throughout thoracic and lumbar spine and SI joints. There is bilateral mild to moderate pleural effusion right more than left with adjacent passive atelectasis. A consolidation in the right lower lobe is noted. Atrophic left kidney. Nephrostomy in the right kidney with the fluid collection posterior to the right kidney, unchanged. CT/CT thoracic spine wo con Impression: Recent (acute to subacute) compression fracture of the T12 with loss of height for approximately 20%. No significant retropulsion Electronically authenticated by: ARYAN MANTILLA Date: 07/30/2024 09:34
--- NOTE | 2024-07-30 08:19 | CT_ITS ---
The [address] [address] Patient Name: MYKEL IRIZARRY MRN: [id number] date: 1940 Sex: M Assigned Patient Location: ER Current Patient Location: Accession/Order Number: [id number] Exam Date: 07/30/2024 08:53 Report Date: 07/30/2024 09:34 At the request of: GREGORY LUCIO Procedure: CT lumbar spine wo con CT thoracic spine wo con, CT lumbar spine wo con, 07/30/2024 8:53 AM EST INDICATION: fall COMPARISON: Prior CT of the abdomen pelvis dated 05/25/2024 TECHNIQUE: Axial images of 2 mm are obtained from thoracic and lumbar spine with sagittal and coronal reconstruction withoutcontrast. Dose reduction techniques were achieved by using automated exposure control and/or adjustment of mA and/or kV according to patient size and/or use of iterative reconstruction technique. FINDINGS: There is normal physiologic thoracic kyphosis and lumbar lordosis. There is diffuse demineralization of bone. There is atherosclerosis within the midportion of the right T12 with vertebral height loss for approximately 20% suggesting of recent compression fracture. No other acute fracture or dislocation is noted. The vertebral heights are otherwise preserved. Multilevel degenerative changes throughout thoracic and lumbar spine and SI joints. There is bilateral mild to moderate pleural effusion right more than left with adjacent passive atelectasis. A consolidation in the right lower lobe is noted. Atrophic left kidney. Nephrostomy in the right kidney with the fluid collection posterior to the right kidney, unchanged. CT/CT lumbar spine wo con Impression: Recent (acute to subacute) compression fracture of the T12 with loss of height for approximately 20%. No significant retropulsion Electronically authenticated by: ARYAN MANTILLA Date: 07/30/2024 09:34
--- NOTE | 2024-07-30 08:19 | CT_ITS ---
The [address] [address] Patient Name: MYKEL IRIZARRY MRN: [id number] date: 1940 Sex: M Assigned Patient Location: ER Current Patient Location: ER Accession/Order Number: [id number] Exam Date: 07/30/2024 08:53 Report Date: 07/30/2024 09:21 At the request of: GREGORY LUCIO Procedure: CT head/brain wo con CT head/brain wo con, 07/30/2024 8:53 AM EST INDICATION: fall COMPARISON: CT of the head dated 01/05/2021 TECHNIQUE: Axial CT images of the brain from skull base to vertex, including portions of the face and sinuses, were obtained without contrast . Multiplanar reformatted images were generated and reviewed as needed. Dose reduction techniques were achieved by using automated exposure control and/or adjustment of mA and/or kV according to patient size and/or use of iterative reconstruction technique. FINDINGS: The cerebral sulci as well as ventricular system are appropriate for age. There is no intracranial mass, mass effect, midline shift, intra or extra-axial fluid collection or hemorrhage. Stable encephalomalacia within the right frontal lobe likely due to prior ischemic event. Periventricular and centrum semiovale hypodensities are most likely consistent with microvascular ischemic changes. Mucoperiosteal thickening within the sphenoid sinus is again noted. The visualized portions of orbits, mastoid air cells as well as remainder of paranasal sinuses are unremarkable. There is no suspicious osteolytic or osteoblastic lesion. CT/CT head/brain wo con IMPRESSION: No acute intracranial process is noted. Electronically authenticated by: ARYAN MANTILLA Date: 07/30/2024 09:21
[2024-07-30] MEDS: MORPHINE SULFATE 2 MG/ML SYRINGE IV ×3 (08:25→10:08)
[2024-07-30] MEDS: DIAZEPAM 10 MG/2 ML SYRINGE 2 MG IV (08:25)
--- NOTE | 2024-07-30 09:08 | ED_ITS ---
HPI HPI - General Adult General Chief complaint: Fall Stated complaint: fall Time Seen by Provider: 07/30/24 08:07 Source: patient Mode of arrival: ambulance Limitations: no limitations History of Present Illness HPI narrative: Patient is a 84-year-old male who is presenting to the ER today with chief complaint admitted to lower back pain. Patient stated that new , he stepped up on a horses mount, and this is approximately 1 to 2 feet off the ground. Patient states that he has rode his horse on every year for the past 44 years. Patient says that when he fell, he did not hit his head, he has no headache or neck pain. Patient does take Eliquis. Patient did fall 2 days ago. Patient states that he did not have much pain near his day or yesterday. Patient said that his pain started increasing last evening and he would have intermittent what he believes is muscle spasm to his upper and lower thoracic area and his lower back. Patient has no radiculopathy or paresthesias into bilateral arms or legs. Patient again states he has no headache or neck pain. No chest pain or shortness of breath. He has no abdominal pain nausea or vomiting. Patient was using ice yesterday, no heat. Patient is at bedside. Patient stated that he is having intermittent spasming pain this morning, difficulty walking. Patient does not normally use a cane or walker. Patient has no rash or bruising. No other acute complaints. Patient came in by EMS. Patient has no significant urinating or with bowel movements. All systems are negative except as noted/marked. All systems reviewed and otherwise negative. Nurses note and vital signs reviewed and patient is not hypoxic. General: The patient appears moderate distress secondary to pain, patient does not want to roll over secondary to pain and muscle spasm. Patient is resting uncomfortably on cart. Patient is not toxic, lethargic, or listless Skin: Warm, dry, no pallor noted. There is no rash noted. No petechiae, purpura. Head: Normocephalic, atraumatic Eye: Normal conjunctiva, no drainage, EOMI. PERRL Ears, Nose, Mouth, and Throat: oral mucosa is moist. Nares patent. Mouth without vesicles. Cardiovascular: Regular Rate and Rhythm, no murmur, gallop, rub Respiratory: Patient is in no distress, no accessory muscle use, lungs are clear to auscultation, no wheezing, rales or rhonchi Back: Patient has moderate tenderness to palpation to bilateral parathoracic and upper lumbar area, no ecchymosis noted. Patient has no obvious step-offs. No signs of saddle seizure cauda equina. Patient has moderate to severe pain from approximately T4-L2, diffusely tender, this could be paraspinal soft tissue versus bony pain, imaging will be done, otherwise the rest non-tender, no CVA tenderness bilaterally to percussion. No CT LS midline pain. Patient does have a nephrostomy tube to the right lower back, the area around the nephrostomy tube is, clean, dry, intact, no signs of acute infection. GI: No pulsatile mass, no flank pain bilateral, abdomen is very benign, no peritoneal signs, otherwise no tenderness to palpation, no masses appreciated. No rebound, guarding, or rigidity noted. No distention. Musculoskeletal: Patient has full range of motion of all of the extremities, no motor, sensory, or focal neurological deficits Neurological: A&O x4, normal speech Psychiatric: Cooperative Related Data Home Medications ?Medication ?Instructions ?Recorded ?Confirmed apixaban 2.5 mg tablet (Eliquis) 2.5 mg PO Q12H 08/14/23 07/30/24 atorvastatin 40 mg tablet 40 mg PO BEDTIME 08/14/23 07/30/24 ferrous sulfate 325 mg (65 mg 325 mg PO DAILY 08/14/23 07/30/24 iron) tablet (FeroSul) hydralazine 25 mg tablet 25 mg PO Q12H 08/14/23 07/30/24 isosorbide mononitrate 30 mg 30 mg PO DAILY 08/14/23 07/30/24 tablet,extended release 24 hr ytcjzykfwzyh-gyxelrh-vjeag acid 1 tab PO DAILY 08/14/23 07/30/24 400 mcg-lutein 250 mcg chewable tablet (Centrum Silver) Previous Rx's ?Medication ?Instructions ?Recorded hydrocodone 5 mg-acetaminophen 325 1 tab PO Q4H PRN pain #10 tabs 07/30/24 mg tablet methocarbamol 500 mg tablet 500 mg PO Q8H PRN muscle pain #10 07/30/24 tabs oxycodone-acetaminophen 5 mg-325 1 tab PO Q4H PRN pain #12 tabs 07/30/24 mg tablet (Percocet) Allergies Allergy/AdvReac Type Severity Reaction Status Date / Time povidone-iodine (From Allergy Rash Verified 05/24/24 02:09 Betadine) Opioid HPI Opioid Management Most Recent Opioid Data: Last Pain Scale 6 07/30/24 10:08 07/30/24 Last ED Pain Assessment 07/30/24 09:55 Last MAR Pain Assessment 07/30/24 10:08 PFSH PFSH Medical History (Updated 07/30/24 @ 10:08 by Declan Olivares MD) Abnormal cystoscopy ?R39.9 - Unspecified symptoms and signs involving the genitourinary system (ICD-10) Bladder cancer ?C67.9 - Malignant neoplasm of bladder, unspecified (ICD-10) Malfunction of nephrostomy tube ?T83.098A - Other mechanical complication of other urinary catheter, initial encounter (ICD-10) Surgical History (Updated 02/04/24 @ 13:08 by Lorena Polo) H/O transurethral resection of bladder tumor (TURBT) ?Z98.890 - Other specified postprocedural states (ICD-10) ?Z86.03 - Personal history of neoplasm of uncertain behavior (ICD-10) H/O transurethral resection of prostate ?Z98.890 - Other specified postprocedural states (ICD-10) ?Z90.79 - Acquired absence of other genital organ(s) (ICD-10) 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 Do you use any of these nicotine containing products: smokeless tobacco Smokeless tobacco user: snuff Non-prescribed substance use: denies use Previous occupational history: [employer] Highest level of school completed/degree received: some college, no degree Little interest or pleasure in doing things: not at all Feeling down, depressed, or hopeless: not at all Exam Constitutional Vital Signs, click to edit/add: Last Vital Signs Temp 97.6 F 07/30/24 07:54 Pulse 84 07/30/24 11:27 Resp 18 07/30/24 11:27 BP 164/79 H 07/30/24 11:27 Pulse Ox 99 07/30/24 11:27 O2 Del Method Room Air 07/30/24 11:27 Course Vital Signs Vital signs: Vital Signs Temperature 97.6 F 07/30/24 07:54 Pulse Rate 90 07/30/24 07:54 Respiratory Rate 18 07/30/24 07:54 Blood Pressure 172/92 H 07/30/24 07:54 Pulse Oximetry 97 07/30/24 07:54 Oxygen Delivery Method Room Air 07/30/24 07:54 Temperature 97.6 F 07/30/24 07:54 Pulse Rate 84 07/30/24 11:27 Respiratory Rate 18 07/30/24 11:27 Blood Pressure 164/79 H 07/30/24 11:27 Pulse Oximetry 99 07/30/24 11:27 Oxygen Delivery Method Room Air 07/30/24 11:27 Medical Decision Making MDM Narrative Medical decision making narrative: 0900 patient was having additional pain. Patient will have a second ice pack applied, also was given a additional morphine dose. Patient stating need 2 mg of morphine IV and the 2 mg of Valium IV were not helping much for his pain. Patient had a CT of the thoracic and lumbar spine ordered, along with CT of the brain secondary to falling on Eliquis. Patient has no headache or neck pain. Patient says he did not hit his head. 1000 patient was given a dose of Toradol and morphine. Patient will be ambulated with walker to see if patient can function to be discharged or if bobo ent need to be admitted to the hospital or rehab. We have spoken to Ruth social work therapist. Patient cannot be directly placed into rehab, patient will need to be admitted for intractable pain, T12 compression fracture, and then be assessed by PT, OT, and then rehab placement. We will wait to see if patient can function to go home or not. Patient is aware of this. is aware. Patient still having pain, uncertain if he can get out of bed at all or not. Patient is aware of options. Patient normally walks with his 2 feet at home, does not need a cane or walker at home typically. CT of the brain shows no acute findings, CT shows T12 compression fracture, approximately 20%. 1120 Pt was been discharged. Patient told Dee NOBLE, stating that he does take [place] daily intermittently when he has acute on chronic right lower back pain , he has asked for Dr. Mancini to give him stronger medication in the past and Dr. Mancini has declined. Patient states he does have more [place] at home than prescribed because it is not taking him at every dose when it is indicated. Patient was initially going to be given [place] to help with his pain, patient will be given 12 Percocet now since he has a new T12 compression fracture. Patient and his are made aware by myself that Dr. Mancini may not refill or continue Percocet, the next prescription for pain medication is to continue taking the [place] at home. Patient understands not to take [place] and Percocet together at home, he may overdose and take too much additional Tylenol or opiates together. Patient is aware of this. Patient has had education at bedside on side effect of constipation using pain medication as well. Patient will follow-up with PCP as needed. Patient has an appointment with Dr. Bruner at 12:00 on Friday for T12 compression fracture. Patient is also been given a TLSO brace prescription that he can get filled, fitted, teach and treat at a medical supply store. Patient understands this, no questions at discharge Discharge Plan Discharge Chief Complaint: Fall Clinical Impression: T12 compression fracture, Fall, Bilateral thoracic back pain Patient Disposition: Home, Self-Care Time of Disposition Decision: 11:13 Condition: Fair Prescriptions / Home Meds: New methocarbamol 500 mg tablet 500 mg PO Q8H PRN (Reason: muscle pain) Qty: 10 0RF hydrocodone-acetaminophen 5-325 mg tablet 1 tab PO Q4H PRN (Reason: pain) Qty: 10 0RF oxycodone-acetaminophen [Percocet] 5-325 mg tablet 1 tab PO Q4H PRN (Reason: pain) Qty: 12 0RF Discontinued hydrocodone-acetaminophen 5-325 mg tablet 1 tab PO BID PRN (Reason: pain) No Action Eliquis 2.5 mg tablet 2.5 mg PO Q12H atorvastatin 40 mg tablet 40 mg PO BEDTIME Centrum Silver 400-250 mcg tablet,chewable 1 tab PO DAILY hydralazine 25 mg tablet 25 mg PO Q12H isosorbide mononitrate 30 mg tablet extended release 24 hr 30 mg PO DAILY ferrous sulfate [FeroSul] 325 mg (65 mg iron) tablet 325 mg PO DAILY Print Language: [place] Instructions: Vertebral Compression Fracture (ED), Fall Prevention for Older Adults (ED), Thoracic Pain (ED), Back Pain (ED), Fall Prevention (ED), Lower Back Exercises (ED) Additional Instructions: Use ice 20 minutes on, 20 minutes off. Do not use heat Perform stretching exercises 3-4 times a day for the next 2 to 3 weeks A TLSO brace has been written for you as well, use this for the next 2 or 3 weeks. Follow-up with orthopedic surgery, Dr Bruner. You have an appointment on August 02Friday, at 12 PM. Follow-up with PCP for additional outpatient physical therapy or occupational therapy if needed. Alternate Tylenol and either Motrin, Advil, or ibuprofen every 4 hours to help with pain. If you are having severe pain, substitute a Percocet or [place] tablet instead of Tylenol. Do not take Tylenol and Percocet or [place] at the same time, you may actually take too much Tylenol at 1 setting or in 1 day. Maximum Tylenol dose of Tylenol is 3000 mg a day. Maximum dose of either Motrin, Advil, or ibuprofen is 2400 mg a day. You are given 1 prescription for Percocet 12 tablets. After Percocet has finished, follow-up with Dr. Mancini or Dr. Bruner for additional pain medication if needed. Pain medication may cause constipation as a side effect, make sure that you are taking daily stool softeners to help with pain medication so that you did not start becoming more constipated. Increase fluids at home. You a cane or walker if needed to help with ambulation Referrals: Benson Mancini DO [Primary Care Provider] - 1 week Jonathon Bruner MD [Physician] - 1 week Discharge Date/Time: 07/30/24 11:27
--- NOTE | 2024-07-30 09:46 | PC.NURSE ---
Leg bag emptied for 150cc of dark colored urine. Call light in reach and lights dimmed for comfort.
[2024-07-30 09:55] VITALS: O2SAT 98
[2024-07-30] MEDS: KETOROLAC TROMETHAMINE 30 MG/ML VIAL 15 MG IVP (09:59)
[2024-07-30 11:27] VITALS: BP 164/79; PULSE 84; O2SAT 99
== END 2024-07-30 11:27 | disposition home or self-care (01) ==
PROVIDERS: Emergency Provider Emergency Medicine; PCP Internal Medicine
DX: M48.54XA Collapsed vertebra, not elsewhere classified, thoracic region, initial encounter for fracture (principal); Z79.01 Long term (current) use of anticoagulants; Z95.1 Presence of aortocoronary bypass graft; F17.290 Nicotine dependence, other tobacco product, uncomplicated; M54.6 Pain in thoracic spine
CPT/HCPCS: 70450; 72128; 72131; 96374; 96375; 96376; 99285; J1885; J2270; J3360

== ENCOUNTER 2024-08-09 12:50 | Emergency (ER) | payer MEDICARE, SELFPAY ==
[2024-08-09 12:51] VITALS: BP 163/91; PULSE 108; TEMP 36.5; O2SAT 98; BMI 19.3
--- NOTE | 2024-08-09 13:10 | ED_ITS ---
HPI HPI - General Adult General Chief complaint: Recheck/Abnormal Lab/Rx Stated complaint: OTHER Time Seen by Provider: 08/09/24 13:07 Mode of arrival: ambulance Limitations: physical limitation History of Present Illness HPI narrative: 84 year old male presents to the ED for right flank pain. States his nephrostomy tube is not draining as it should. He noticed it today. Also states he has a T12 compression fracture s/p fall on 07/28/24. Reports he was attempting to get on a horse when he lost his balance and fell, landing on his back. He was evaluated here on 07/30/24 and the compression fracture was diagnosed. Denies fever, chills, weakness, dysuria, emesis, diarrhea. Denies change in bowel and/or bladder control. Denies saddle anesthesia. He has had the nephrostomy tube for 7-8 years; it was last changed 2 months ago at [facility]. Related Data Home Medications ?Medication ?Instructions ?Recorded ?Confirmed apixaban 2.5 mg tablet (Eliquis) 2.5 mg PO Q12H 08/14/23 08/09/24 atorvastatin 40 mg tablet 40 mg PO BEDTIME 08/14/23 08/09/24 ferrous sulfate 325 mg (65 mg 325 mg PO DAILY 08/14/23 08/09/24 iron) tablet (FeroSul) hydralazine 25 mg tablet 25 mg PO Q12H 08/14/23 08/09/24 isosorbide mononitrate 30 mg 60 mg PO DAILY 08/14/23 08/09/24 tablet,extended release 24 hr hbdistrubllj-vlupgzi-iordu acid 1 tab PO DAILY 08/14/23 08/09/24 400 mcg-lutein 250 mcg chewable tablet (Centrum Silver) hydrocodone 5 mg-acetaminophen 325 1 tab PO Q6H PRN pain 08/09/24 08/09/24 mg tablet Previous Rx's ?Medication ?Instructions ?Recorded methocarbamol 500 mg tablet 500 mg PO Q8H PRN muscle pain #10 07/30/24 tabs Allergies Allergy/AdvReac Type Severity Reaction Status Date / Time povidone-iodine (From Allergy Rash Verified 08/09/24 12:51 Betadine) Opioid HPI Opioid Management Most Recent Opioid Data: Last Pain Scale 10 08/09/24 15:26 08/09/24 Last ED Pain Assessment 08/09/24 16:15 Last MAR Pain Assessment 08/09/24 15:26 Review of Systems ROS Constitutional Denies: fever or chills Cardiovascular Denies: chest pain Respiratory Denies: shortness of breath Gastrointestinal Denies: abdominal pain, nausea, vomiting or diarrhea Genitourinary Reports: decreased urine ouput; Denies: painful urination or blood in urine Musculoskeletal Reports: back pain; Denies: neck pain or extremity pain Integumentary/Breast Denies: rash Neurological Denies: numbness in extremities or weakness in extremities PFSH [facility] Medical History (Updated 08/09/24 @ 16:48 by Alisha Goodson) Abnormal cystoscopy ?R39.9 - Unspecified symptoms and signs involving the genitourinary system (ICD-10) Bladder cancer ?C67.9 - Malignant neoplasm of bladder, unspecified (ICD-10) Malfunction of nephrostomy tube ?T83.098A - Other mechanical complication of other urinary catheter, initial encounter (ICD-10) Surgical History (Updated 02/04/24 @ 13:08 by Lorena Polo) H/O transurethral resection of bladder tumor (TURBT) ?Z98.890 - Other specified postprocedural states (ICD-10) ?Z86.03 - Personal history of neoplasm of uncertain behavior (ICD-10) H/O transurethral resection of prostate ?Z98.890 - Other specified postprocedural states (ICD-10) ?Z90.79 - Acquired absence of other genital organ(s) (ICD-10) 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 Do you use any of these nicotine containing products: smokeless tobacco Smokeless tobacco user: snuff Non-prescribed substance use: denies use Previous occupational history: [employer] Highest level of school completed/degree received: some college, no degree Little interest or pleasure in doing things: several days Feeling down, depressed, or hopeless: several days Exam Constitutional Vital Signs, click to edit/add: Last Vital Signs Temp 97.7 F 08/09/24 12:51 Pulse 102 H 08/09/24 17:50 Resp 20 08/09/24 17:50 BP 160/87 H 08/09/24 17:50 Pulse Ox 98 08/09/24 17:50 O2 Del Method Room Air 08/09/24 17:50 Common normals: no apparent distress and oriented x3 General appearance: cooperative Eye Common normals: conjunctivae normal and no scleral icterus Neck & C-Spine Common normals: supple Respiratory Common normals: normal respiratory effort Effort & inspection: able to speak in complete sentences and symmetric chest movement Cardio Common normals: regular rate and regular rhythm GI Common normals: Normal to inspection, nondistended, normoactive bowel sounds present, soft to palpation and non-tender Other: Right nephrostomy tube noted. Draining clear yellow urine. Small amount of urine noted in collection bag. No erythema to site. Back & Pelvis General back: no CVA tenderness Thoracic spine/upper back: thoracic spinal tenderness Lumbar spine/lower back: no lumbar spinal tenderness Extremity Other: Moves extremities. Distal sensation intact. Neuro Common normals: oriented x3, moves all extremities and no focal motor deficits Sensorium/orientation: awake and alert Speech: speech normal Motor exam: no pronator drift Course Vital Signs Vital signs: Vital Signs Temperature 97.7 F 08/09/24 12:51 Pulse Rate 108 H 08/09/24 12:51 Respiratory Rate 20 08/09/24 12:51 Blood Pressure 163/91 H 08/09/24 12:51 Pulse Oximetry 98 08/09/24 12:51 Oxygen Delivery Method Room Air 08/09/24 12:51 Temperature 97.7 F 08/09/24 12:51 Pulse Rate 102 H 08/09/24 17:50 Respiratory Rate 20 08/09/24 17:50 Blood Pressure 160/87 H 08/09/24 17:50 Pulse Oximetry 98 08/09/24 17:50 Oxygen Delivery Method Room Air 08/09/24 17:50 Medical Decision Making MDM Narrative Medical decision making narrative: Urinalysis showed infection; culture was pending. He was started on IV antibiotics. CT scan showed compression fracture involving the T12 vertebral bod y, with increasing loss of vertebral body height and retropulsion of fracture, which impresses upon the ventral surface of the spinal cord; right-sided hydronephrosis, increased from prior study, despite the presence of a nephrostomy tube. Findings were discussed. The patient will need to be transferred to another facility for further evaluation and treatment. I spoke with access for [facility]. The patient will be going to the ER at [facility] at the request of the neurosurgeon there. I spoke with Dr. Nunez the ED attending at [facility]; she accepted the patient for transfer. Medical Records Medical records reviewed: Yes I reviewed the patient's medical records Lab Data Lab results reviewed: Yes I reviewed the patient's lab results Labs: Lab Results 08/09/24 08/09/24 Range/Units 13:23 14:47 WBC 8.3 (4.0-11.0) 10^3/uL RBC 3.41 L (4.70-6.10) 10^6/uL Hgb 9.9 L (14.0-18.0) g/dL Hct 31.9 L (42.0-54.0) % MCV 93.5 (80.0-94.0) fL MCH 29.0 (25.9-34.0) pg MCHC 31.0 (29.9-35.2) g/dL RDW 17.4 H (11.0-15.0) % Plt Count 183 (150-450) 10^3/uL MPV 9.9 (9.5-13.5) fL Neut % (Auto) 81.0 H (43.0-75.0) % Lymph % (Auto) 9.7 L (20.5-60.0) % [place] % (Auto) 7.6 (1.7-12.0) % Eos % (Auto) 0.4 L (0.9-7.0) % Baso % (Auto) 0.2 (0.2-2.0) % Neut # (Auto) 6.8 H (1.4-6.5) 10^3/uL Lymph # (Auto) 0.8 L (1.2-3.8) 10^3/uL [place] # (Auto) 0.6 (0.3-0.8) 10^3/uL Eos # (Auto) 0.0 (0.0-0.7) 10^3/uL Baso # (Auto) 0.0 (0.0-0.1) 10^3/uL Abs Immat Gran (auto) 0.09 H (0.00-0.03) 10^3/uL Imm/Tot Granulo (auto) 1.1 H (0.0-0.5) % Sodium 128 L (136-145) mmol/L Potassium 4.4 (3.5-5.1) mmol/L Chloride 96 L (98-107) mmol/L Carbon Dioxide 24.3 (21.0-32.0) mmol/L Anion Gap 12.1 BUN 31.0 H (7.0-18.0) mg/dL Creatinine 1.58 H (0.70-1.30) mg/dL Est GFR ( Amer) 51 L (>=60 mL/min/1.73m^2) Est GFR (Non-Af Amer) 42 L (>=60 mL/min/1.73m^2) BUN/Creatinine Ratio 19.6 Glucose 89 (74-106) mg/dL Calcium 8.5 (8.5-10.1) mg/dL Urine Color Dk. yellow (YELLOW) Urine Clarity Cloudy A (CLEAR) Urine pH 5.5 (5.0-9.0) Ur Specific [place] >=1.030 A (1.005-1.025) Urine Protein >=300 A (NEG/TRACE) mg/dL Urine Glucose (UA) Negative (NEGATIVE) mg/dL Urine Ketones Trace A (NEGATIVE) mg/dL Urine Occult Blood Large A (NEGATIVE) Urine Nitrite Negative (NEGATIVE) Urine Bilirubin Small A (NEGATIVE) Urine Urobilinogen 0.2 (0.2-1.0) EU/dL Ur Leukocyte Esterase Moderate A (NEGATIVE) Urine RBC 10-20 A (0-2) #/HPF Urine WBC 75-100 A (NONE SEEN) #/HPF Ur Squamous Epith Cells Few A (NONE/RARE) #/LPF Urine Crystals None seen (None Seen) #/HPF Urine Bacteria Large A (NONE SEEN) #/HPF Urine Casts Seen A (NONE SEEN) #/LPF Hyaline Casts Few Urine Mucus Small A (NONE SEEN) Ur Culture Indicated? Yes Imaging Data CT scan - abdomen: Attestation: I have reviewed the pertinent imaging results. Radiologist's impression: ITS Impressions Abdomen/Pelvis CT 08/09/24 14:54 IMPRESSION: Suspected anemia. Bilateral pleural effusions, right larger than left. Redemonstration of diffusely abnormal liver, with multiple masses present, some of which may contain internal blood products. Right-sided hydronephrosis, increased from prior study, despite the presence of a nephrostomy tube. Please correlate for patency of the nephrostomy tube. Compression fracture involving the T12 vertebral body, with increasing loss of vertebral body height and retropulsion of fracture, which impresses upon the ventral surface of the spinal cord. Additional findings, as described above. Electronically authenticated by: KATHLEEN SHARP Date: 08/09/2024 16:17 Discharge Plan Discharge Chief Complaint: Recheck/Abnormal Lab/Rx Clinical Impression: Back pain, Compression fracture of T12 vertebra, Hydronephrosis, Acute UTI Patient Disposition: [facility] Time of Disposition Decision: 17:07 Discharge Location: [facility] Condition: Good Mode of Transportation: EMS
[2024-08-09 13:31] LABS: Basophils Percent Auto 0.2 % (0.2-2.0); Eosinophils Percent Auto 0.4 % (0.9-7.0); Hematocrit 31.9 % (42.0-54.0); Hemoglobin 9.9 g/dL (14.0-18.0); Immature Granulocytes Abs Auto 0.09 10^3/uL (0.00-0.03); Immature Granulocytes Pct Auto 1.1 % (0.0-0.5); Lymphocytes Absolute Auto 0.8 10^3/uL (1.2-3.8); Lymphocytes Percent Auto 9.7 % (20.5-60.0); Mean Corpuscular Volume 93.5 fL (80.0-94.0); Mean Platelet Volume 9.9 fL (9.5-13.5); Monocytes Absolute Auto 0.6 10^3/uL (0.3-0.8); Monocytes Percent Auto 7.6 % (1.7-12.0); Neutrophils Absolute Auto 6.8 10^3/uL (1.4-6.5); Platelet Count 183 10^3/uL (150-450); Red Blood Count 3.41 10^6/uL (4.70-6.10); Red Cell Distribution Width 17.4 % (11.0-15.0); White Blood Count 8.3 10^3/uL (4.0-11.0)
[2024-08-09] MEDS: MORPHINE SULFATE 2 MG/ML SYRINGE IV ×2 (13:39→17:51)
[2024-08-09] MEDS: ONDANSETRON PF 4 MG/2 ML VIAL IV (13:42)
[2024-08-09 13:43] LABS: Anion Gap 12.1; BUN Creatinine Ratio 19.6; Calcium 8.5 mg/dL (8.5-10.1); Carbon Dioxide 24.3 mmol/L (21.0-32.0); Chloride 96 mmol/L (98-107); Estimated GFR (African America 51 (>=60 mL/min/1.73m^2); Estimated GFR (Non-African Ame 42 (>=60 mL/min/1.73m^2); Glucose 89 mg/dL (74-106); Potassium 4.4 mmol/L (3.5-5.1); Sodium 128 mmol/L (136-145)
[2024-08-09 14:43] VITALS: BP 154/81; PULSE 104; O2SAT 97
--- NOTE | 2024-08-09 14:54 | CT_ITS ---
The [address] [address] Patient Name: MYKEL IRIZARRY MRN: [id number] date: 1940 Sex: M Assigned Patient Location: ER Current Patient Location: Accession/Order Number: [id number] Exam Date: 08/09/2024 15:35 Report Date: 08/09/2024 16:17 At the request of: ELADIO CORLEY Procedure: CT abdomen pelvis wo con EXAM: CT abdomen pelvis wo con REASON FOR EXAM: Male, 84 years, right flank pain. TECHNIQUE: Computed tomography of the abdomen and pelvis is performed in the axial projection from the lung bases to the pubic symphysis. Sagittal and coronal reconstructed images are performed. Dose reduction techniques were achieved by using automated exposure control and/or adjustment of mA and/or KVP according to patient size and/or use of iterative reconstruction technique. Study was performed without IV contrast. Study was performed without oral contrast. COMPARISON: 05/25/2024 FINDINGS: Lung bases: There is compressive atelectasis within the right lower lobe. Bilateral pleural effusions are seen, right greater than left. The heart appears enlarged, with sternal wires and coronary artery calcifications. The blood within the cardiac chambers has decreased attenuation relative to the adjacent interventricular septum, suggesting anemia. There is gynecomastia. Evaluation of the solid abdominal organs is limited in the absence of intravenous contrast. Liver: The liver remains abnormal. The liver is very heterogeneous, with a portion of liver mass which contains macroscopic fat with adjacent surgical clips or calcifications. Innumerable rounded masses are seen within the hepatic parenchyma, some of which may have some internal hemorrhage. Gallbladder: The gallbladder is normal. Spleen: The spleen is normal. Pancreas: There is diffuse pancreatic atrophy. Adrenal glands: The adrenal glands are normal bilaterally. Right kidney: Right-sided nephrostomy tube is in place. There is increasing right-sided hydronephrosis. A calculus is noted within the mid to distal right ureter, measuring 4 to 5 mm in diameter, similar to the prior study. Left kidney: The left kidney is atrophic. There is no renal calculus or hydronephrosis. Stomach: The stomach is normal. Small bowel: The small bowel is normal. Large bowel: There may be some thickening to the wall of the rectum versus underdistention. Appendix: The appendix is not visualized. No right lower quadrant inflammatory changes are seen to suggest acute appendicitis. Aorta: There are diffuse atherosclerotic calcifications of the abdominal aorta. IVC: The IVC is normal. Retroperitoneum: Normal retroperitoneum. Bladder: The bladder is empty. Pelvic organs: The prostate gland is not significantly enlarged. Abdominal wall: There is a fat-containing left inguinal hernia. Osseous structures: The bones are demineralized. There are degenerative changes present. There is a new fracture involving the T12 vertebral body from the prior abdominal pelvic CT, which was present on the spine CT from 07/30/2024. There is increasing retropulsion of bony fragment within the spinal canal, with impression upon the ventral aspect of the thecal sac. CT/CT abdomen pelvis wo con IMPRESSION: Suspected anemia. Bilateral pleural effusions, right larger than left. Redemonstration of diffusely abnormal liver, with multiple masses present, some of which may contain internal blood products. Right-sided hydronephrosis, increased from prior study, despite the presence of a nephrostomy tube. Please correlate for patency of the nephrostomy tube. Compression fracture involving the T12 vertebral body, with increasing loss of vertebral body height and retropulsion of fracture, which impresses upon the ventral surface of the spinal cord. Additional findings, as described above. Electronically authenticated by: KATHLEEN SHARP Date: 08/09/2024 16:17
[2024-08-09 15:04] LABS: Bilirubin Urine SMALL (NEGATIVE); Blood Urine LARGE (NEGATIVE); Clarity Urine CLOUDY (CLEAR); Color Urine DK. YELLOW (YELLOW); Glucose Urine UA NEGATIVE (NEGATIVE); Ketones Urine TRACE mg/dL (NEGATIVE); Leukocyte Esterase Urine MODERATE (NEGATIVE); Nitrite Urine NEGATIVE (NEGATIVE); Protein Urine >=300 mg/dL (NEG/TRACE); Specific Gravity Urine >=1.030 (1.005-1.025); Urobilinogen Urine 0.2 EU/dL (0.2-1.0); pH Urine 5.5 (5.0-9.0)
[2024-08-09 15:18] LABS: Bacteria Urine LARGE #/HPF (NONE SEEN); WBC Urine 75-100 #/HPF (NONE SEEN)
[2024-08-09 15:19] LABS: Cast Seen? SEEN #/LPF (NONE SEEN); Crystals Seen? None Seen #/HPF (None Seen); Hyaline Casts Urine FEW; Mucus Urine SMALL (NONE SEEN); Squamous Epithelial Cell Urine FEW #/LPF (NONE/RARE); Urine Culture Indicated YES
[2024-08-09] MEDS: MORPHINE SULFATE 4 MG/ML VIAL IV (15:26)
[2024-08-09 15:29] VITALS: BP 162/83; PULSE 98; O2SAT 99
[2024-08-09] MEDS: CEFTRIAXONE 1,000 MG in 0.9 % SODIUM CHLORIDE 50 ML 100 MG IV (15:47)
[2024-08-09 17:50] VITALS: BP 160/87; PULSE 102; O2SAT 98
--- NOTE | 2024-08-10 10:16 | SWNOTE1 ---
SW received a call from [facility] and pt is current with them. SW advised them pt was transferred to [facility].
== END 2024-08-09 19:15 | disposition short-term general hospital (02) ==
PROVIDERS: Nurse Practitioner Family; Emergency Provider Emergency Medicine; PCP Internal Medicine
DX: M48.54XA Collapsed vertebra, not elsewhere classified, thoracic region, initial encounter for fracture (principal); N13.6 Pyonephrosis; Z93.6 Other artificial openings of urinary tract status; Z95.1 Presence of aortocoronary bypass graft; F17.290 Nicotine dependence, other tobacco product, uncomplicated; M54.9 Dorsalgia, unspecified
CPT/HCPCS: 36415; 74176; 80048; 81001; 85025; 87086; 87150; 87186; 96365; 96375; 96376; 99285; J0696; J2270; J2405

== ENCOUNTER 2024-08-15 03:30 | Inpatient (IN) | payer MEDICARE, SELFPAY ==
[2024-08-15] VITALS (56 sets, daily range): BP systolic 103–173; BP diastolic 57–100; PULSE 57–133; TEMP 36.5–37.2; O2SAT 80–100; BMI 19.8; BMI 18.7
--- NOTE | 2024-08-15 03:32 | ECG_ITS ---
The [facility] Test Date: 2024-08-15 Pat Name: MYKEL IRIZARRY Department: Room: - Gender: Male [employer]: : 1940 Requested By: KARLA HERCULES Order Number: [id number] Reading MD: KARLA HERCULES Measurements Intervals Vici Rate: 108 P: 90 WI: 254 QRS: 100 QRSD: 106 T: 90 QT: 342 QTc: 405 Interpretive Statements 1120 Sinus tachycardia 2231 First degree AV block 2440 Incomplete right bundle branch block 7102 Moderate right axis deviation 9150 abnormal ECG Electronically Signed On 08-15-2024 8:21:08 EST by KARLA HERCULES
--- NOTE | 2024-08-15 03:32 | XR_ITS ---
The [address] [address] Patient Name: MYKEL IRIZARRY MRN: [id number] date: 1940 Sex: M Assigned Patient Location: ER Current Patient Location: ED.MAIN Accession/Order Number: [id number] Exam Date: 08/15/2024 03:55 Report Date: 08/15/2024 05:24 At the request of: LANEY DOWLING Procedure: XR chest 1V EXAM: XR chest 1V HISTORY: shortness of breath COMPARISON: Chest radiograph dated 05/24/2024. TECHNIQUE: One view of the chest was obtained. FINDINGS: There are postsurgical changes of the chest with median sternotomy wires in place. The cardiac silhouette is enlarged though stable in size. Aortic atherosclerotic disease is seen. There is no significant pneumothorax or right pleural effusion. There is a small left pleural effusion. There is stable nonspecific elevation of the right hemidiaphragm. There are right basilar opacities. No acute osseous abnormality is seen. XR/XR chest 1V IMPRESSION: 1. Stable enlarged cardiac silhouette with a suspected small left pleural effusion and medial right basilar opacities that could represent atelectasis, aspiration changes, and/or pneumonia. Electronically authenticated by: Andrew CHARLTON Date: 08/15/2024 05:24
--- OUTSIDE RECORDS SUMMARY | 2024-08-15 03:36 | XMS_ITS | CCD ---
Author Organization [facility] Care Team Providers Care Company Dancer Name Role Phone RICHIE WALTON Attending Unavailable RICHIE WALTON Admitting Unavailable DIOMEDES, BENSON Referring Unavailable DIOMEDES, BENSON Primary Care Unavailable JUAN BLACKWELL Primary Care Physician DO Benson Hercules Primary Care Provider MD Steven Coronado Attending Provider [phone] DO Benson Hercules Primary Care Provider Harish, DO Manriquez Attending Provider Unavailable Diomedes, DO Knowles Primary Care Provider MD Kami Venegas Attending Provider Harish, DO Manriquez Attending Provider Unavailable Benson Hercules Unavailable DIOMEDES, DR KNOWLES Attending Unavailable BALL, DR KNOWLES [...] ble Diomedes, DO Knowles Primary Care Provider MD Kami Venegas Attending Provider DO Benson Hercules Primary Care Provider [phone] MD Kami Venegas Attending Provider [phone] MD Jose D Hercules Jr Emergency Provider DO Benson Hercules Primary Care Provider DO Declan Moreira Attending Provider Unavailable MD Kami Venegas Attending Provider [phone] Diomedes, DO Knowles Primary Care Provider BENSON HERCULES Primary Care Physician Kami VENEGAS Attending Unavailable VENEGAS, Kami R Admitting Unavailable VENEGAS, Kami R Attending Unavailable VENEGAS, Kami R Attending Unavailable VENEGAS, Kami R Attending Unavailable VENEGAS, Kami R Admitting Unavailable VENEGAS, Kami R Attending Unavailable PHYSICIAN, UNKNOWN Referring Unavailable T[facility] ONLY, [facility] Consulting Unavailable KAYYALI, AMMAR I Admitting Unavailable KAYYALI, AMMAR I Attending Unavailable FELECIA HUTSON Consulting Unavailable ZOGRAFIDES, STACY Herr Consulting Unavailable BENNIE MOROCHO Consulting Unavailable SHEN, AILYN Consulting Unavailable TRAMAINE FAJARDO Consulting Unavailable MAGROB, MONTSERRAT M Consulting Unavailable Benson Hercules DO Primary Care Provider Kami VENEGAS Attending Unavailable Galea, Sarah Ba Admitting Unavailable Galsimone, Sarah Ba Attending Unavailable Jose D Hercules Jr Attending Unavailable Jose D Hercules Jr Admitting Unavailable Ball, Benson Primary Care Unavailable Venegas, Kami Attending Unavailable Venegas, Kami Admitting Unavailable Ball, Benson Primary Care Unavailable Moreira, Declan Attending Unavailable Moreira, Declan Admitting Unavailable Ball, Benson Primary Care Unavailable Ball, Benson Primary Care Unavailable Venegas, Kami Attending Unavailable Venegas, Kami Admitting Unavailable Ball, Benson Primary Care Unavailable Venegas, Kami Attending Unavailable Venegas, Kami Admitting Unavailable VENEGAS, Kami R Attending Unavailable VENEGAS, Kami R Admitting Unavailable VENEGAS, Kami R Attending Unavailable Ball DO, Benson Primary Care Provider Kami Venegas MD Attending Provider ARCADIO NUÑEZ Attending Unavailable OVITT, GILBERT Referring Unavailable TOFLINRENETTA KATHLEEN Referring Unavailable HINDERS, DANO Referring Unavailable HINDERS, DANO Referring Unavailable RJ OH Referring Unavailable OVITT, GILBERT Referring Unavailable ELTAHAWY, EHAB Attending Unavailable ELTAHAWY, EHAB Attending Unavailable ELTAHAWY, EHAB Referring Unavailable FAMILIA RAY Referring Unavailable JOSE D EISENBERG Admitting Unavailable JOSE D EISENBERG Attending Unavailable LANEY DOWLING Referring Unavailable ELTAHAWY, EHAB Admitting Unavailable ELTAHAWY, EHAB Attending Unavailable Allergies Allergy Classification Reported Allergen(s) Allergy Type Date of Onset Reaction(s) Facility (20 sources) traMADol; Translations: [tramadol] Drug Allergy 8 [facility] (1 source) patient allergy list reviewed by nurse or physicia Propensity to adverse reactions 8 Comment:Done [employer] Other (4 sources) No Known Medication Allergies; Translations: [No Known Medication Allergies] Propensity to adverse reactions (disorder) [facility] Repository (1 source) Iodine; Translations: [IODINE] Drug Allergy 5 [facility] (1 source) rOPINIRole; Translations: [ROPINIROLE] Drug Allergy 2 [facility] Medications Current Medications Medication Drug Class(es) Dates Sig (Normalized) Sig (Original) 120 actuat albuterol 0.1 mg/actuat / ipratropium bromide 0.02 mg/actuat inhalation spray (19 sources) Anticholinergic, beta2-Adrenergic Agonist Start: 07-30-2022 amoxicillin 875 mg / clavulanate 125 mg oral tablet (2 sources) Penicillin-class Antibacterial Start: 04-01-2024 End: 04-08-2024 take 1 tablet by mouth every twelve hours Augmentin 875 mg oral tablet = 1 tab(s), Oral, q12hr, X 7 day(s), # 14 tab(s), Refills(s) 0, Pharmacy: [id number] Start Date: 04/01/24 Stop Date: 04/08/24 Status: Ordered apixaban 2.5 mg oral tablet (14 sources) Factor Xa Inhibitor Start: 08-05-2023 take [...] 2017 11:00pm bumetanide 0.5 mg oral tablet (2 sources) Loop Diuretic Start: 06-07-2024 take 1 tablet [...] Silver - as directed Orally Active cephalexin 250 mg oral tablet (20 sources) Cephalosporin Antibacterial Start: take 1 capsule by mouth twice daily Keflex 250 mg Cap 250 mg = 1 cap(s), Oral, BID, # 14 cap(s), Refills(s) 0, Pharmacy: [id number] Start Date: 07/12/24 Status: Ordered Start: 10-21-2022 take 1 capsule by mo [facility] every twelve hours Keflex 500 mg Cap 500 mg = 1 cap(s), Oral, q12hr, # 20 cap(s), Refills(s) 0, Pharmacy: [facility] #[id number] Start Date: 10/21/22 Status: Ordered Start: 06-19-2022 End: 06-26-2022 take 1 capsule by mouth every twelve hours Keflex 500 mg Cap 500 mg = 1 cap(s), Oral, q12hr, X 7 day(s), # 14 cap(s), Refills(s) 0, Pharmacy: [facility] #[id number] Start Date: 06/19/22 Stop Date: 06/26/22 Status: Ordered Start: 04-14-2020 take 1 capsule by mo [facility] twice daily Keflex 500 mg Cap 500 mg = 1 cap(s), Oral, BID, # 14 cap(s), Refills(s) 0, Pharmacy: [facility] Start Date: 04/14/20 Status: Ordered ferrous sulfate 324 mg delayed [...] 2023 12:00am take 1 tablet by kristina once daily at breakfast ferrous sulfate 325 [...] Arteriolar Vasodilator Start: 08-05-2023 End: 10-08-2023 take 1 tablet by mouth at bedtime hydrALAZINE (APRESOLINE) 25 mg tablet Take 1 tablet (25 mg total) by mouth in the morning and at bedtime. 12/26/2023 Active take 1 tablet by mouth every six [...] the morning. 30 tablet 07/04/2024 Active Start: 06-11-2024 take 1 tablet by kristina th once daily Lisinopril 5 mg tablet Active 5 MG PO Daily June 11, 2024 12:00am Start: 11-28-2023 End: 06-09-2024 take 1 tablet [...] MG PO Daily August 05, 2023 12:00am Ahoxovlltmys-Yklgiijs-A utein (Centrum Silver) Tablet (7 sources) Start: 08-05-2023 take 1 tablet by mouth once daily Sofwdblzbvwe-Vmwsdqcf-J utein (Centrum Silver) Tablet Active 1 TAB PO Daily August 05, 2023 1:00am Start: 08-05-2023 take 1 tablet by kristina th once daily Eymawljjwmug-Mdxteiax-Azewgn (Centrum Silver) Tablet Active 1 TAB PO [...] BID, # 180 tab(s), Refills(s) 3, Pharmacy: [facility] Start Date: 07/10/20 Status: Ordered [...] mg / trimethoprim 160 mg oral tablet (18 sources) Dihydrofolate Reductase Inhibitor Antibacterial, Sulfonamide Antimicrobial Start: 06-17-2024 End: 06-24-2024 Bactrim D.S. 800 mg-160 mg Tab 1 tab(s), Oral, BID for 7 day(s), 14 tab(s), Refill(s) 0, [id number] Start Date: 06/17/24 Stop Date: 06/24/24 Status: Ordered Start: 11-04-2022 End: 11-14-2022 Bactrim 400 mg-80 mg Tab 80 mg, Oral, q12hr for 10 day(s), 20 tab(s), Refill(s) 0, [facility] #[id number] Start Date: 11/04/22 Stop Date: 11/14/22 Status: Ordered Start: 06-11-2021 Bactrim DS 800 mg-160 mg Tab 160 mg, Oral, q12hr, 14 tab(s), Refill(s) 0, [id number] [facility] Start Date: 06/11/21 Status: Ordered Start: 12-01-2017 End: 12-01-2017 Sulfamethoxazole-Trimethopri m 800-160 mg tablet Discontinued TABLET November 30, 2017 11:00pm December 01, 2017 7:44am tamsulosin hydrochloride 0.4 mg oral capsule (8 sources) alpha-Adrenergic Jordy Start: 12-27-2022 take 1 capsule by mouth twice daily tamsulosin 0.4 mg Cap 0.4 mg = 1 cap(s), Oral, BID, # 30 cap(s), Refills(s) 0, Pharmacy: [facility] #[id number] Start Date: 12/27/22 Status: Ordered Completed/Discontinued Medications Medication Drug Class(es) Dates Sig (Normalized) Sig (Original) acetaminophen 325 mg / HYDROcodone bitartrate 5 mg oral tablet (20 sources) Opioid Agonist Start: 08-05-2023 End: 07-14-2024 take 1 tablet by mouth every eight hours as needed for pain Hydrocodone-Acetami nophen 5-325 mg tablet Discontinued 1 TAB PO Q8H as needed for Pain 60 April 02, 2024 May 04, 2024 4:18pm start 04/02 Start: 05-28-2023 take 1 tablet by kristina [...] kristina th every eight hours for pain Ferriday 325 mg-5 mg oral tablet 1 tab(s), Oral, q8hr for pain, 15 tab(s), Refill(s) 0, [id number] Start Date: 03/03/20 Status: Ordered Start: 02-25-2020 take 1 tablet by kristina th once Ferriday 325 mg-5 mg oral tablet 1 tab(s), [...] every 6 (six) hours as needed. Active ciprofloxacin 500 mg oral tablet (20 sources) Quinolone Antimicrobial Start: 01-20-2024 take 1 tablet by mouth once daily Cipro 500 mg Tab 500 mg = 1 tab(s), Oral, Daily, Take 1 tablet the day before the procedure and 1 tablet after the procedure, # 2 tab(s), Refills(s) 0, Pharmacy: [id number] Start Date: 01/20/24 Status: Ordered Start: 04-04-2022 take 1 tablet by kristina once daily Cipro 500 mg Tab 500 mg = 1 tab(s), Oral, Daily, Take 1 tablet the day before the procedure and 1 tablet after the procedure, # 2 tab(s), Refills(s) 0, Pharmacy: [facility] #[id number] Start Date: 11/26/22 Status: Ordered Start: 10-30-2021 take 1 tablet by kristina once daily Cipro 500 mg Tab 500 mg = 1 tab(s), Oral, Daily, Take 1 tablet the day before the procedure and 1 tablet after the procedure, # 2 tab(s), Refills(s) 0, [facility]acy: [facility] [place] [address] Start Date: 10/30/21 Status: Ordered clopidogrel 75 mg oral tablet (20 sources) P2Y12 Platelet Inhibitor Start: 12-01-2017 End: 08-05-2023 take 1 tablet by mouth once daily Clopidogrel (Plavix) 75 mg Tablet Discontinued 75 MG PO Daily November 30, 2017 11:00pm August 05, 2023 2:28am Ferrous Sulfate 28 mg iron Tablet (2 sources) Start: 08-05-2023 End: 09-26-2023 Ferrous Sulfate 28 mg iron Tablet Discontinued 65 MG PO Daily August 05, 2023 12:00am September 26, 2023 3:27pm Ferrous Sulfate 28 mg iron tablet (2 sources) Start: 09-26-2023 End: 09-30-2023 Ferrous Sulfate 28 mg iron tablet Discontinued 65 MG PO Daily September 26, 2023 3:25pm September 30, 2023 10:42am hyoscyamine sulfate 0.125 mg sublingual tablet (12 sources) Start: 12-01-2017 End: 12-30-2017 take 2 [...] sodium phosphate, monobasic 40.8 mg oral capsule (12 sources) Oxidation-Reduction Agent Start: 12-01-2017 End: 12-30-2017 take 1 tablet by mouth four times daily Methen-M.Blue-S.Txlx-Gdsak-Prt (Uribel) 118-10-40.8-36 mg Capsule Discontinued 1 TAB PO Four times daily November 30, 2017 11:00pm December 30, 2017 8:08pm mupirocin 0.02 mg/mg topical ointment (15 sources) RNA Synthetase Inhibitor Antibacterial Start: 12-31-2023 End: 04-02-2024 Mupirocin 2 % ointment Discontinued 1 APPLIC TOPICAL Twice daily 18 05December 30, 2023 11:00pm April 02, 2024 9:05am Start: 01-23-2023 Mupirocin 2 % 1 application Externally Twice a day for 14 days Dec, Not-Taking/PRN potassium phosphate 155 mg / sodium phosphate, dibasic 852 mg / sodium phosphate, monobasic 130 mg oral tablet (12 sources) Start: 12-01-2017 End: 12-30-2017 take 2 tablets by mouth twice daily Sod Phos Di, Granite-K Phos Granite (Phospha 250 Neutral) 250 mg Tablet Discontinued 2 TAB PO Twice daily November 30, 2017 11:00pm December 30, 2017 8:09pm Problems Active Problems Problem Classification Problem Date Documented Da te Episodic/Chronic Acute posthemorrhagic anemia (3 sources) Acute posthemorrhagic anemia; Translations: [Acute posthemorrhagic anemia] 06-09-2024 Episodic Alcohol-related disorders (1 source) Alcohol dependence, in remission; Translations: [ALCOHOL DEPENDENCE IN REMISSION] Onset: 2 Chronic Cancer of bladder (20 sources) Malignant neoplasm, overlapping lesion of bladder; [...] 3 Episodic Cancer; other and unspecified primary (19 sources) History of bladder neoplasm 02-04-2019 Episodic Cardiac dysrhythmias (20 sources) Paroxysmal atrial fibrillation; Translations: [Paroxysmal atrial fibrillation] Onset: 3 Chronic Cardiac dysrhythmias (1 source) Bradycardia, unspecified Episodic Chronic kidney disease (20 sources) Chronic kidney disease stage 3; Translations: [Chronic kidney disease, stage 3 unspecified] Onset: 8 Chronic Chronic kidney disease (4 sources) Chronic kidney disease; Translations: [CHRONIC KIDNEY DISEASE STAGE 3B] Onset: 3 Chronic obstructive pulmonary disease and bronchiectasis (20 sources) Mucopurulent chronic bronchitis; Translations: [Mucopurulent chronic bronchitis] Chronic Complication of device; implant or graft (7 sources) Obstruction of urinary stent; Translations: [Other [...] Coronary arteriosclerosis; Translations: [Atherosclerotic heart disease of [place] coronary artery without angina pectoris] Onset: 8 [...] Onset: 8 Chronic Diabetes mellitus without complication (20 sources) Type 1 diabetes mellitus; Translations: [Type 2 diabetes mellitus without complications] Onset: 3 02-04-2019 Chronic Diabetes mellitus without complication (20 sources) Impaired fasting glycemia; Translations: [Impaired fasting glucose] Episodic Disorders of lipid metabolism (20 sources) Pure hypercholesterolemia; Translations: [Familial hypercholesterolemia] Onset: 8 Chronic E Codes: Transport; not MVT (2 sources) Animal-rider injured by fall from or being thrown from horse in noncollision accident, initial encounter; Translations: [Animal-rider injured by fall from or being thrown from horse in noncollision accident, initial encounter] Onset: 5 Episodic Essential hypertension (20 sources) Hypertensive disorder; Translations: [Essential hypertension] Onset: 3 02-04-2019 Chronic Fluid and electrolyte disorders (6 sources) Hyperkalemia; Translations: [Hypo-osmolality and hyponatremia] Onset: 2 Episodic Gastrointestinal hemorrhage (5 sources) Melena; Translations: [Gastrointestinal hemorrhage] Onset: 4 4 Episodic Genitourinary symptoms and ill-defined conditions (1 [...] UNS SITE] Onset: 2 Chronic Other aftercare (5 sources) Drug therapy finding; Translations: [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] 12-29-2023 Episodic Other aftercare (5 sources) 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; Translations: [Long-term (current) use of other medications] 12-31-2023 Episodic Other diseases of kidney and ureters (19 sources) Hydronephrosis 02-04-2019 Episodic Other diseases of kidney and ureters (8 sources) Unspecified hydronephrosis; Translations: [UNSPECIFIED HYDRONEPHROSIS] Onset: 3 Episodic Other diseases of veins and lymphatics (20 sources) Peripheral venous insufficiency; Translations: [Venous insufficiency (chronic) (peripheral)] Onset: 8 Episodic Other diseases of veins and lymphatics (1 source) Venous insufficiency (chronic) (peripheral) Episodic Other fractures (1 source) Fracture of twelfth thoracic vertebra; Translations: [Wedge compression fracture of T11-T12 vertebra, initial encounter for closed fracture] Onset: 5 07-30-2024 Episodic Other fractures (2 sources) Wedge compression fracture of T11-T12 vertebra, initial encounter for closed fracture; Translations: [Wedge compression fracture of T11-T12 vertebra, initial encounter for closed fracture] Onset: 5 Episodic Other gastrointestinal disorders (1 source) Disorder [...] liver] Onset: 8 Chronic Other liver diseases (20 sources) Liver mass; Translations: [Hepatomegaly, not elsewhere classified] 06-09-2024 Episodic Other liver diseases (1 source) Large liver; Translations: [Hepatomegaly, not elsewhere classified] Episodic Other liver diseases (2 sources) Hepatomegaly, not elsewhere classified; Translations: [Other specified disorders of liver] 06-09-2024 Episodic Other lower respiratory disease (19 sources) [...] and due to atherosclerosis; Translations: [Atherosclerosis of [place] arteries of extremities with intermittent claudication, bilateral legs] Chronic Residual codes; unclassified (1 source) Pain, unspecified; Translations: [Pain, unspecified] Onset: 4 Episodic Screening and history of mental health and substance abuse codes (20 sources) Ex-smoker; Translations: [Personal history of nicotine [...] wall of thorax, subsequent encounter] Episodic Unclassified (19 sources) Drug therapy finding 02-04-2019 Unclassified (2 sources) Obstructed nephrostomy tube Onset: 4 Urinary tract infections (19 sources) Acute urinary tract infection; Translations: [Urinary [...] nervous system, initial encounter] Onset: 02-10-2018 Episodic Immunizations and screening for infectious disease [...] Onset: 05-01-2018 Episodic Other aftercare (1 source) [facility] (current) use of aspirin; Translations: [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] Onset: 05-01-2022 Episodic Other aftercare (1 source) [facility] (current) use of antithrombotics/anti platelets; Translations: [SHELTER ANTITHROMBOT/ANTIPLA TLETS] Onset: 05-01-2022 Episodic Other aftercare (1 source) Other terminal press operator (current) drug therapy; Translations: [OTH CUSTOMER SERVICE SALES ASSOCIATE CURRENT DRUG THERAPY] Onset: 05-01-2022 Episodic Other [...] [SHORTNESS OF BREATH] Onset: 07-10-2022 Episodic Other lower respiratory disease (2 sources) Other forms of dyspnea; Translations: [Other forms of dyspnea] Onset: 04-19-2024 Episodic Other nutritional; endocrine; and metabolic disorders [...] Test Name Value Interpretation Reference Range Facility BASIC METABOLIC PANELon 07-28 Anion gap [Moles/Vol] 9 mmol/L Normal 7-20 [facility] Comment on above: Performed By: #### L [id number] ####[facility] (BEAKER)[address] [place] [address] Calcium [Mass/Vol] 7.7 mg/dL Low 8.6-10.3 [facility] Comment on above: Performed By: #### L [id number] ####[facility] ([facility])[address] [place] [address] Chloride [Moles/Vol] 100 mmol/L Normal 98-107 [facility] Comment on above: Performed By: #### L [id number] ####[facility] ([facility])[address] [place] [address] CO2 [Moles/Vol] 26 mmol/L Normal 21-31 [facility] Comment on above: Performed By: #### L [id number] ####[facility] ([facility])[address] [place] [address] Creatinine [Mass/Vol] 0.98 mg/dL Normal 0.70-1.30 [facility] Comment on above: Performed By: #### L [id number] ####[facility] ([facility])[address] [place] [address] GLOMERULAR FILTRATION RATE ML/MIN/1.73 SQ M.PREDICTED 77.0 mL/min/1.73m*2 Normal >60.0 [facility] Comment on above: Result Comment: [facility]???s estimated glomerular filtration rate (eGFR) will no longer include consideration of race in its calculation. The National Kidney Foundation???s eGFR Task Force developed new recommendations for the estimation of the glomerular filtration rate in the [place] They recommend immediate implementation of the new equation refit without the race variable in all laboratories because the calculation does not include race. In addition to not including race in the calculation and reporting, it included diversity in its development, and has acceptable performance characteristics and potential consequences that do not disproportionately affect any one group of individuals. Performed By: #### L [id number] ####[facility] ([facility])[address] [place] [address] Glucose [Mass/Vol] 81 mg/dL Normal 70-100 [facility] Comment on above: Performed By: #### L [id number] ####[facility] ([facility])[address] [place] [address] Potassium [Moles/Vol] 3.9 mmol/L Normal 3.5-5.1 [facility] Comment on above: Performed By: #### L [id number] ####[facility] ([facility])[address] [place] [address] Sodium [Moles/Vol] 131 mmol/L Low 136-145 [facility] Comment on above: Performed By: #### L [id number] ####[facility] ([facility])[address] [place] [address] Urea nitrogen [Mass/Vol] 22 mg/dL Normal 7-25 [facility] Comment on above: Performed By: #### L [id number] ####[facility] ([facility]ER)[address] [place] [address] UREA NITROGEN/CREATININE (MASS RATIO) IN SER/PLAS 22.4 Normal [facility] Comment on above: Performed By: #### L [id number] ####[facility] ([facility] [place] [address] CBCon 08-12-2024 Erythrocyte distribution width (RBC) [Ratio] 18.6 % High 11.5-15.0 [facility] Comment on above: Performed By: #### L [id number] ####[facility] ([facility], [place] [address] ERYTHROCYTE MEAN CORPUSCULAR HEMOGLOBIN CONCENTRATION (G/DL) BY AUTOMATED 31.2 g/dL Low 32.0-35.0 [facility] Comment on above: Performed By: #### L [id number] ####[facility] ([facility] [place], [place] [address] Hematocrit (Bld) [Volume fraction] 28.5 % Low 39.0-55.0 [facility] Comment on above: Performed By: #### L [id number] ####[facility] ([facility])[address] [place], [place] [address] Hemoglobin (Bld) [Mass/Vol] 8.9 g/dL Low 13.0-17.0 [facility] Comment on above: Performed By: #### L [id number] ####[facility] ([facility])[address] [place], [place] [address] MCH (RBC) [Entitic mass] 29.3 pg Normal 27.0-33.0 [facility] Comment on above: Performed By: #### L [id number] ####[facility] ([facility])[address] [place] [address] MCV (RBC) [Entitic vol] 93.8 fL Normal 82.0-98.0 [facility] Comment on above: Performed By: #### L [id number] ####[facility] ([facility])[address] [place] [address] PLATELETS (10*3/UL) IN BLOOD AUTOMATED COUNT 169 10*3/uL Normal 150-400 [facility] Comment on above: Performed By: #### L [id number] ####[facility] ([facility])[address] [place] [address] RBC (Bld) [#/Vol] 3.04 10*6/uL Low 4.20-5.70 [facility] Comment on above: Performed By: #### L [id number] ####[facility] ([facility])[address] [place] [address] WBC (Bld) [#/Vol] 7.78 10*3/uL Normal 4.00-10.60 [facility] Comment on above: Performed By: #### L [id number] ####[facility] ([facility])[address] [place] [address] MAGNESIUMon 08-12-2024 Magnesium [Mass/Vol] 1.7 mg/dL Low 1.9-2.7 [facility] Comment on above: Performed By: #### L [id number] #### [facility] ([facility]) [address] [place] [address] PHOSPHORUSon 08-12-2024 Magnesium [Mass/Vol] 3.3 mg/dL Normal 2.5-5.0 [facility] Comment on above: Performed By: #### L [id number] ####[facility] ([facility])[address] [place] [address] POCT GLUCOSE METER UNSOLICIT ED RESULTSon 08-12-2024 Glucose [Mass/Vol] 139 mg/dL High 70-105 [facility] Comment on above: Order Comment: Waive d Testing in the ED is performed under the ED CLIA certificate #[id number]. Result Comment: elac umsky Performed By: #### L [id number] ####[facility] ([facility] [place] [address] Glucose [Mass/Vol] 94 mg/dL Normal 70-105 [facility] Comment on above: Order Comment: Waive d Testing in the ED is performed under the ED CLIA certificate #[id number]. Result Comment: nsch eub Performed By: #### L [id number] #### [facility] ([facility]) [address] [place] [address] 30on 08-11-2024 30 The patient is Moderately Stable - Low risk of patient condition declining or worsening The patient's goals for the shift include Comfort and walk The clinical goals for the shift include Comfort Over the shift, the patient did not make progress toward the following goals. Barriers to progression include back pain. Recommendations to address these barriers include meds as prescribed. Normal [facility] 30 Reviewed MRI thoraci c spine completed overnight. Subsequently reviewed with Dr. Montelongo. There is a subacute appearing fracture of T12 with slight retropulsion. There is only mild canal stenosis at this level. No high-grade canal stenosis in the thoracic spine. Informed by trauma team that patient unable to tolerate brace due to claustrophobia. Did subsequently discuss this as well as MRI results with Dr. Montelongo. Will plan to DC brace for now and mobilize patient as tolerated, though if has increased pain without brace, may need to reconsider. Would like upright x-rays today to evaluate the alignment of the fracture. If these are stable, will plan for follow-up in neurosurgery clinic in 1 month with upright x-rays at that time. May mobilize as tolerated. Activity orders changed. TLSO order DC'd. Updated RN and trauma team, TUNDE Coronel. [facility] BASIC METABOLIC PANELon 07-28 Anion gap [Moles/Vol] 10 mmol/L Normal 7-20 [facility] Comment on above: Performed By: #### L [id number] #### [facility] ([facility]) [address] [place] [address] Calcium [Mass/Vol] 7.8 mg/dL Low 8.6-10.3 [facility] Comment on above: Performed By: #### L [id number] #### [facility] ([facility] [address] [place] [address] Chloride [Moles/Vol] 98 mmol/L Normal 98-107 [facility] Comment on above: Performed By: #### L [id number] #### [facility] ([facility]) [address] [place] [address] CO2 [Moles/Vol] 24 mmol/L Normal 21-31 [facility] Comment on above: Performed By: #### L [id number] #### [facility] ([facility]) [address] [place] [address] Creatinine [Mass/Vol] 1.11 mg/dL Normal 0.70-1.30 [facility] Comment on above: Performed By: #### L [id number] #### [facility] ([facility]) [address] [place] [address] GLOMERULAR FILTRATION RATE ML/MIN/1.73 SQ M.PREDICTED 66.3 mL/min/1.73m*2 Normal >60.0 [facility] Comment on above: Result Comment: The [facility]???s estimated glomerular filtration rate (eGFR) will no longer include consideration of race in its calculation. The National Kidney Foundation???s eGFR Task Force developed new recommendations for the estimation of the glomerular filtration rate in the [place] They recommend immediate implementation of the new equation refit without the race variable in all laboratories because the calculation does not include race. In addition to not including race in the calculation and reporting, it included diversity in its development, and has acceptable performance characteristics and potential consequences that do not disproportionately affect any one group of individuals. Performed By: #### L [id number] #### [facility] ([facility] [address] [place] [address] Glucose [Mass/Vol] 150 mg/dL High 70-100 [facility] Comment on above: Performed By: #### L [id number] #### [facility] ([facility]) [address] [place] [address] Potassium [Moles/Vol] 4.0 mmol/L Normal 3.5-5.1 [facility] Comment on above: Performed By: #### L [id number] #### [facility] ([facility]AKER) [address] [place] [address] Sodium [Moles/Vol] 128 mmol/L Low 136-145 [facility] Comment on above: Performed By: #### L [id number] #### [facility] ([facility]AKER) [address] [place] [address] Urea nitrogen [Mass/Vol] 23 mg/dL Normal 7-25 [facility] Comment on above: Performed By: #### L [id number] #### [facility] (BEAKER) [address] [place] [address] UREA NITROGEN/CREATININE (MASS RATIO) IN SER/PLAS 20.7 Normal [facility] Comment on above: Performed By: #### L [id number] #### [facility] (BEAKER) [address] [place] [address] Anion gap [Moles/Vol] 9 mmol/L Normal 7-20 [facility] Comment on above: Performed By: #### L [id number] ####[facility] (BEAKER)[address] [place] [address] Calcium [Mass/Vol] 8.1 mg/dL Low 8.6-10.3 [facility] Comment on above: Performed By: #### L [id number] ####[facility] ([facility])[address] [place] [address] Chloride [Moles/Vol] 99 mmol/L Normal 98-107 [facility] Comment on above: Performed By: #### L [id number] ####[facility] (BEAKER)[address] [place] [address] CO2 [Moles/Vol] 24 mmol/L Normal 21-31 [facility] Comment on above: Performed By: #### L [id number] ####[facility] ([facility])[address] [place] [address] Creatinine [Mass/Vol] 1.05 mg/dL Normal 0.70-1.30 [facility] Comment on above: Performed By: #### L [id number] ####[facility] ([facility])[address] [place] [address] GLOMERULAR FILTRATION RATE ML/MIN/1.73 SQ M.PREDICTED 70.9 mL/min/1.73m*2 Normal >60.0 [facility] Comment on above: Result Comment: [facility]???s estimated glomerular filtration rate (eGFR) will no longer include consideration of race in its calculation. The National Kidney Foundation???s eGFR Task Force developed new recommendations for the estimation of the glomerular filtration rate in the [place] They recommend immediate implementation of the new equation refit without the race variable in all laboratories because the calculation does not include race. In addition to not including race in the calculation and reporting, it included diversity in its development, and has acceptable performance characteristics and potential consequences that do not disproportionately affect any one group of individuals. Performed By: #### L [id number] ####[facility] ([facility])[address] [place] [address] Glucose [Mass/Vol] 110 mg/dL High 70-100 [facility] Comment on above: Performed By: #### L [id number] ####[facility] ([facility])[address] [place] [address] Potassium [Moles/Vol] 4.2 mmol/L Normal 3.5-5.1 [facility] Comment on above: Performed By: #### L [id number] ####[facility] ([facility])[address] [place] [address] Sodium [Moles/Vol] 128 mmol/L Low 136-145 [facility] Comment on above: Performed By: #### L [id number] ####[facility] ([facility])[address] [place] [address] Urea nitrogen [Mass/Vol] 22 mg/dL Normal 7-25 [facility] Comment on above: Performed By: #### L [id number] ####[facility] ([facility] [place] [address] UREA NITROGEN/CREATININE (MASS RATIO) IN SER/PLAS 21.0 Normal [facility] Comment on above: Performed By: #### L [id number] ####[facility] ([facility])[address] [place] [address] CBCon 08-11-2024 Erythrocyte distribution width (RBC) [Ratio] 18.2 % High 11.5-15.0 [facility] Comment on above: Performed By: #### L [id number] ####[facility] ([facility])[address] [place] [address] ERYTHROCYTE MEAN CORPUSCULAR HEMOGLOBIN CONCENTRATION (G/DL) BY AUTOMATED 31.0 g/dL Low 32.0-35.0 [facility] Comment on above: Performed By: #### L [id number] ####[facility] ([facility])[address] [place] [address] Hematocrit (Bld) [Volume fraction] 29.4 % Low 39.0-55.0 [facility] Comment on above: Performed By: #### L [id number] ####[facility] (BEAKER)[address] [place] [address] Hemoglobin (Bld) [Mass/Vol] 9.1 g/dL Low 13.0-17.0 [facility] Comment on above: Performed By: #### L [id number] ####[facility] (BEAKER)[address] [place] [address] MCH (RBC) [Entitic mass] 29.3 pg Normal 27.0-33.0 [facility] Comment on above: Performed By: #### L [id number] ####[facility] (BEAKER)[address] [place] [address] MCV (RBC) [Entitic vol] 94.5 fL Normal 82.0-98.0 [facility] Comment on above: Performed By: #### L [id number] ####[facility] ([facility])[address] [place] [address] PLATELETS (10*3/UL) IN BLOOD AUTOMATED COUNT 197 10*3/uL Normal 150-400 [facility] Comment on above: Performed By: #### L [id number] ####[facility] ([facility])[address] [place] [address] RBC (Bld) [#/Vol] 3.11 10*6/uL Low 4.20-5.70 [facility] Comment on above: Performed By: #### L [id number] ####[facility] ([facility])[address] [place] [address] WBC (Bld) [#/Vol] 7.92 10*3/uL Normal 4.00-10.60 [facility] Comment on above: Performed By: #### L [id number] ####[facility] ([facility])[address] [place] [address] MAGNESIUMon 08-11-2024 Magnesium [Mass/Vol] 2.1 mg/dL Normal 1.9-2.7 [facility] Comment on above: Performed By: #### L [id number] #### [facility] ([facility]) [address] [place] [address] Magnesium [Mass/Vol] 1.6 mg/dL Low 1.9-2.7 [facility] Comment on above: Performed By: #### L [id number] #### [facility] ([facility] [address] [place] [address] PHOSPHORUSon 08-11-2024 Magnesium [Mass/Vol] 2.2 mg/dL Low 2.5-5.0 [facility] Comment on above: Performed By: #### L [id number] ####[facility] ([facility])[address] [place] [address] Magnesium [Mass/Vol] 2.1 mg/dL Low 2.5-5.0 [facility] Comment on above: Performed By: #### L [id number] #### [facility] ([facility]) [address] [place] [address] POCT GLUCOSE METER UNSOLICIT ED RESULTSon 08-11-2024 Glucose [Mass/Vol] 236 mg/dL High 70-105 [facility] Comment on above: Order Comment: Waive d Testing in the ED is performed under the ED CLIA certificate #[id number]. Result Comment: [facility] eub Performed By: #### L [id number] #### [facility] ([facility]) [address] [place] [address] Glucose [Mass/Vol] 136 mg/dL High 70-105 [facility] Comment on above: Order Comment: Waive d Testing in the ED is performed under the ED CLIA certificate #[id number]. Result Comment: elac umsky Performed By: #### L [id number] ####[facility] ([facility] [place] [address] Glucose [Mass/Vol] 127 mg/dL High 70-105 [facility] Comment on above: Order Comment: Waive d Testing in the ED is performed under the ED CLIA certificate #[id number]. Result Comment: ptso u5 Performed By: #### L [id number] #### [facility] ([facility]) [address] [place] [address] 30on 08-10-2024 30 The patient is Moderately Stable - Low risk of patient condition declining or worsening The patient's goals for the shift include pain control The clinical goals for the shift include pain control, get brace Problem: Resident experiences pain/discomfort Goal: I will maintain an acceptable level of pain Outcome: Progressing Problem: Pain - Adult Goal: Verbalizes/displays adequate comfort level or baseline comfort level Outcome: Progressing Problem: Safety - Adult Goal: Free from fall injury Outcome: Progressing Problem: Discharge Planning Goal: Discharge to home or other facility with appropriate resources Outcome: Progressing Problem: Chronic Conditions and Co-morbidities Goal: Patient's chronic conditions and co-morbidity symptoms are monitored and maintained or improved Outcome: Progressing Normal [facility] 30 Daily Case Managemen t Update Multidisciplinary rounds have been completed. Barriers to Discharge: Patient fell on 07/28 when attempting to mount a horse. Patient presented with increased back pain and increased drainage from nephrostomy site. CT from OSH shows 12 compression fracture with retropulsion of fracture fragments and right kidney hydronephrosis. Urology and Neurosurgery MRI thoracic spine pending. Bedrest until MRI results, TLSO brace at bedside. Per Urology, plan is for guided exchange of the nephrostomy tube. Timing pending neurosurg recs. Patient is from home with . Current with [facility], unsure of company name. Diet: Dietary Orders (From admission, onward) Start Ordered 08/10/24 1336 Regular Diet Diet effective now Question: Room Service? Answer: Yes 08/10/24 1337 Physician Expected Discharge Date: 08/12/2024 Discharge Delays: PT Six Click Score: 14 OT Six Click Score: PT Recommendations: OT Recommendations: Is expected discharge disposition appropriate for patient?: Yes New Consults: Normal [facility] BASIC METABOLIC PANELon 07-28 Anion gap [Moles/Vol] 10 mmol/L Normal 7-20 [facility] Comment on above: Performed By: #### L [id number] #### [facility] ([facility]AKER) [address] [place] [address] Calcium [Mass/Vol] 7.9 mg/dL Low 8.6-10.3 [facility] Comment on above: Performed By: #### L [id number] #### [facility] (BEAKER) [address] [place] [address] Chloride [Moles/Vol] 100 mmol/L Normal 98-107 [facility] Comment on above: Performed By: #### L [id number] #### [facility] ([facility]AKER) [address] [place] [address] CO2 [Moles/Vol] 24 mmol/L Normal 21-31 [facility] Comment on above: Performed By: #### L [id number] #### [facility] (BEAKER) [address] [place] [address] Creatinine [Mass/Vol] 1.14 mg/dL Normal 0.70-1.30 [facility] Comment on above: Performed By: #### L [id number] #### [facility] ([facility]) [address] [place] [address] GLOMERULAR FILTRATION RATE ML/MIN/1.73 SQ M.PREDICTED 64.2 mL/min/1.73m*2 Normal >60.0 [facility] Comment on above: Result Comment: [facility]???s estimated glomerular filtration rate (eGFR) will no longer include consideration of race in its calculation. The National Kidney Foundation???s eGFR Task Force developed new recommendations for the estimation of the glomerular filtration rate in the [place] They recommend immediate implementation of the new equation refit without the race variable in all laboratories because the calculation does not include race. In addition to not including race in the calculation and reporting, it included diversity in its development, and has acceptable performance characteristics and potential consequences that do not disproportionately affect any one group of individuals. Performed By: #### L [id number] #### [facility] ([facility]) [address] [place] [address] Glucose [Mass/Vol] 112 mg/dL High 70-100 [facility] Comment on above: Performed By: #### L [id number] #### [facility] ([facility]) [address] [place] [address] Potassium [Moles/Vol] 4.0 mmol/L Normal 3.5-5.1 [facility] Comment on above: Performed By: #### L [id number] #### [facility] ([facility]) [address] [place] [address] Sodium [Moles/Vol] 130 mmol/L Low 136-145 [facility] Comment on above: Performed By: #### L [id number] #### [facility] ([facility]) [address] [place] [address] Urea nitrogen [Mass/Vol] 25 mg/dL Normal 7-25 [facility] Comment on above: Performed By: #### L [id number] #### [facility] ([facility]ER) [address] [place] [address] UREA NITROGEN/CREATININE (MASS RATIO) IN SER/PLAS 21.9 Normal [facility] Comment on above: Performed By: #### L [id number] #### [facility] (BEAKER) [address] [place] [address] Anion gap [Moles/Vol] 10 mmol/L Normal 7-20 [facility] Comment on above: Performed By: #### L [id number] #### [facility] ([facility] [address] [place] [address] Calcium [Mass/Vol] 8.1 mg/dL Low 8.6-10.3 [facility] Comment on above: Performed By: #### L [id number] #### [facility] ([facility]) [address] [place] [address] Chloride [Moles/Vol] 98 mmol/L Normal 98-107 [facility] Comment on above: Performed By: #### L [id number] #### [facility] ([facility] [address] [place] [address] CO2 [Moles/Vol] 22 mmol/L Normal 21-31 [facility] Comment on above: Performed By: #### L [id number] #### [facility] ([facility]) [address] [place] [address] Creatinine [Mass/Vol] 1.17 mg/dL Normal 0.70-1.30 [facility] Comment on above: Performed By: #### L [id number] #### [facility] ([facility] [address] [place] [address] GLOMERULAR FILTRATION RATE ML/MIN/1.73 SQ M.PREDICTED 62.2 mL/min/1.73m*2 Normal >60.0 [facility] Comment on above: Result Comment: [facility]???s estimated glomerular filtration rate (eGFR) will no longer include consideration of race in its calculation. The National Kidney Foundation???s eGFR Task Force developed new recommendations for the estimation of the glomerular filtration rate in the [place] They recommend immediate implementation of the new equation refit without the race variable in all laboratories because the calculation does not include race. In addition to not including race in the calculation and reporting, it included diversity in its development, and has acceptable performance characteristics and potential consequences that do not disproportionately affect any one group of individuals. Performed By: #### L [id number] #### [facility] ([facility]) [address] [place] [address] Glucose [Mass/Vol] 64 mg/dL Low 70-100 [facility] Comment on above: Performed By: #### L [id number] #### [facility] ([facility]) [address] [place] [address] Potassium [Moles/Vol] 4.1 mmol/L Normal 3.5-5.1 [facility] Comment on above: Performed By: #### L [id number] #### [facility] ([facility]) [address] [place] [address] Sodium [Moles/Vol] 126 mmol/L Low 136-145 [facility] Comment on above: Performed By: #### L [id number] #### [facility] ([facility]) [address] [place] [address] Urea nitrogen [Mass/Vol] 29 mg/dL High 7-25 [facility] Comment on above: Performed By: #### L [id number] #### [facility] ([facility]) [address] [place] [address] UREA NITROGEN/CREATININE (MASS RATIO) IN SER/PLAS 24.8 Normal [facility] Comment on above: Performed By: #### L [id number] #### [facility] ([facility]) [address] [place] [address] CBCon 08-10-2024 Erythrocyte distribution width (RBC) [Ratio] 17.6 % High 11.5-15.0 [facility] Comment on above: Performed By: #### L [id number] ####[facility] (BEAKER)[address] [place] [address] ERYTHROCYTE MEAN CORPUSCULAR HEMOGLOBIN CONCENTRATION (G/DL) BY AUTOMATED 31.5 g/dL Low 32.0-35.0 [facility] Comment on above: Performed By: #### L [id number] ####[facility] ([facility] [place] [address] Hematocrit (Bld) [Volume fraction] 29.2 % Low 39.0-55.0 [facility] Comment on above: Performed By: #### L [id number] ####[facility] ([facility])[address] [place] [address] Hemoglobin (Bld) [Mass/Vol] 9.2 g/dL Low 13.0-17.0 [facility] Comment on above: Performed By: #### L [id number] ####[facility] ([facility] [place] [address] MCH (RBC) [Entitic mass] 29.1 pg Normal 27.0-33.0 [facility] Comment on above: Performed By: #### L [id number] ####[facility] ([facility])[address] [address] MCV (RBC) [Entitic vol] 92.4 fL Normal 82.0-98.0 [facility] Comment on above: Performed By: #### L [id number] ####[facility] ([facility])[address] [place] [address] PLATELETS (10*3/UL) IN BLOOD AUTOMATED COUNT 175 10*3/uL Normal 150-400 [facility] Comment on above: Performed By: #### L [id number] ####[facility] ([facility] [place] [address] RBC (Bld) [#/Vol] 3.16 10*6/uL Low 4.20-5.70 [facility] Comment on above: Performed By: #### L [id number] ####[facility] (BEAKER)[address] [place] [address] WBC (Bld) [#/Vol] 8.65 10*3/uL Normal 4.00-10.60 [facility] Comment on above: Performed By: #### L [id number] ####[facility] ([facility])[address] [place] [address] CONSULTon 08-10-2024 CONSULT [facility] CONSULT NOTE 08/10/2024 Patient Name: Mykel Olivera : 1940 ADVANCED DIRECTIVES: None CODE STATUS: DNR CC-A REASON FOR CONSULTATION: Palliative medicine consult requested by Jose D Eisenberg MD for Mykel Olivera who is 84 y.o. to assist with complex decision-making, symptom control, and goals of care. HPI: Mykel Olivera is a 84 y.o. male who was admitted on 08/09/2024 for back pain. Per chart, patient reports to have fallen while attempting to mount a horse on 07/28/2024. Patient reports he fell onto his back. Patient reports that the ground was soft and negative loose dirt. Patient denied head trauma or loss of consciousness. Patient reports worsening back pain over the past couple days. Pain is located in the right side mid back near his nephrostomy site. Patient reports increased drainage from the nephrostomy site. CT imaging performed at outside hospital shows T12 compression fracture with retropulsion of fracture fragments and right kidney hydronephrosis. Pt will need an MRI of the T-spine. Past Medical History: Diagnosis Date Allergies Arthritis Atrial fibrillation (CMS/HCC) Bladder problem Cancer (CMS/HCC) Carotid stenosis CHF (congestive heart failure) (CMS/HCC) Coronary artery disease Hyperlipidemia Hypertension Ischemic cardiomyopathy Kidney problem Myocardial infarction (CMS/HCC) Thoracic vertebral fracture (CMS/HCC) 07/28/2024 T12 Past Surgical History: Procedure Laterality Date CARDIAC CATHETERIZATION 05/19/2024 CORONARY ARTERY BYPASS GRAFT 02/05/2017 CTA HEART CORONARY W IV CONTRAST W OR WO FFRCT 02/03/2017 CT HEART CORONARY ANGIOGRAM PARIKH CONVERSION LIVER BIOPSY 06/03/2024 NEPHRECTOMY 07/28/2017 OTHER SURGICAL HISTORY nephrostomy tube PERCUTANEOUS CHEST DRAIN INSERTION ALLERGIES: Iodine, Requip [ropinirole], and Tramadol Prior to Admission medications Medication Sig Start Date End Date Taking? Authorizing Provider aspirin 81 mg chewable tablet aspirin 81 mg Chew Tab Start Date: 05/24/20 Status: Ordered 05/24/20 Yes Historical Provider, atorvastatin (Lipitor) 40 mg tablet 1 (one) time each day at the same time. Yes Historical Provider, Eliquis 2.5 mg tablet TAKE 1 TABLET BY MOUTH TWICE DAILY IN THE MORNING AND AT BEDTIME 12/26/23 Yes Arcadio Nuñez MD ferrous sulfate 325 (65 Fe) MG tablet in the morning. Yes Historical Provider, hydrALAZINE (Apresoline) 25 mg tablet TAKE 1 TABLET BY MOUTH TWICE DAILY IN THE MORNING AND AT BEDTIME Patient taking differently: Taking PRN for SPB > 120 12/26/23 Yes Arcadio Nuñez MD HYDROcodone-acetaminop hen (Ferriday) 5-325 mg tablet 1 tablet as needed 02/25/20 Yes Historical Provider, lisinopril 5 mg tablet Take 5 mg by mouth in the morning. Yes Historical Provider, magnesium oxide (Mag-Ox) 400 mg (241.3 mg magnesium) tablet 1 (one) time each day at the same time. 05/20/22 Yes Historical ProviderMD spironolactone (Aldactone) 25 mg tablet TAKE 1 TABLET BY MOUTH ONCE DAILY DIRECTED 09/08/23 Yes Emanuel Gregg MD bumetanide (Bumex) 0.5 mg tablet Take 0.5 mg by mouth in the morning. 06/07/24 Historical Provider, isosorbide mononitrate ER (Imdur) 30 mg 24 hr tablet Take 2 tablets (60 mg) by mouth in the morning. 05/19/24 06/18/24 Magdalene Xiong isosorbide mononitrate ER (Imdur) 60 mg 24 hr tablet Take 1 tablet (60 mg) by mouth in the morning. Do not crush or chew. Patient not taking: Reported on 08/10/2024 06/09/24 06/09/25 Emanuel Gregg MD CURRENT MEDICATIONS: Reviewed SOCIAL HISTORY Living arrangement: With his Social supports: Family Marital status: Children: 3 biological and 1 step child No family history on file. REVIEW OF SYSTEMS Constitutional: Pt c/o pain at 8/10 today at the mid to lower spine area. Pain meds help for a while when he gets them. Reports a good appetite. No fatigue. Skin: No rashes or wounds. ENT: No runny nose or sore throat. Respiratory: No SOB or cough. Cardiovascular: No chest pain. Gastrointestinal: Occasional nausea. No constipation or diarrhea. Genitourinary: Doesn't urinate due to nephrostomy tube. Musculoskeletal: Ambulates with a walker at times at home. Neurologic: No c/o neuropathy. PHYSICAL EXAM BP 164/82 (BP Location: Left arm, Patient Position: Lying) Pulse 104 Temp 36.4 ???C (97.5 ???F) (Temporal) Resp 16 Ht 1.829 m (6') Wt 66.2 kg (146 lb) SpO2 98% BMI 19.80 kg/m??? Intake/Output Summary (Last 24 hours) at 08/10/2024 1249 Last data filed at 08/10/2024 0909 Gross per 24 hour Intake 473.33 ml Output 470 ml Net 3.33 ml Skin: No wounds visualized. Eyes: Sclera anicteric. No exudate. HENT: Oral mucosa pink and moist. No nasal exudate. Respiratory: Lungs CTA. Respirations unlabored. Cardiovascular: HRR. No LE edema. Gastrointestinal: BS+x4. Abd not distended. Musculoskeletal: Moderate sarcopenia. No noted joint deformity. (more content not included)... [facility] CONSULT NEUROSURGERY NOTE SUBJECTIVE: Chief complaint: T12 fracture with retropulsion. History of present illness: Consultation referred by TUNDE Lee, trauma, for T12 fracture with retropulsion. Patient is somewhat of a poor historian. Reports was on mounting block to mount his horse on 07/28/24 when he fell, landing on his back. Presented to local ED due to low back pain and was told had fracture. Was prescribed pain medication. Someone reportedly told him to lie flat in bed as a result of fracture, though states that this seems to exacerbate his pain. Initially reported that his pain had been getting better, though later in part of the same conversation states that he presented to the emergency department due to worsening pain that was not relieved by Ferriday. Pain remains in his low back. Worse with lying supine, better with sitting, standing, walking. Denies leg pain, weakness, paresthesia. He does have a history of bladder cancer, diagnosed 18 years ago. Reports that he has only 1 functioning kidney and has had a nephrostomy tube for the past 8 years. Reports that bladder cancer has been treated mainly with surgeries. Reports nausea and poor oral intake for past one week. Thinks may be related to malposition of nephrostomy tube. Notes that his thought had been dislodged slightly. States nurse (Home care nurse?--not really clear who) had advised her to advance it slightly and seems to be working well now. Review of systems: As in PHI. Past Medical History: Diagnosis Date Allergies Arthritis Atrial fibrillation (CMS/HCC) Bladder problem Cancer (CMS/HCC) Carotid stenosis CHF (congestive heart failure) (CMS/HCC) Coronary artery disease Hyperlipidemia Hypertension Ischemic cardiomyopathy Kidney problem Myocardial infarction (CMS/HCC) Thoracic vertebral fracture (CMS/HCC) 07/28/2024 T12 Past Surgical History: Procedure Laterality Date CARDIAC CATHETERIZATION 05/19/2024 CORONARY ARTERY BYPASS GRAFT 02/05/2017 CTA HEART CORONARY W IV CONTRAST W OR WO FFRCT 02/03/2017 CT HEART CORONARY ANGIOGRAM PARIKH CONVERSION LIVER BIOPSY 06/03/2024 NEPHRECTOMY 07/28/2017 OTHER SURGICAL HISTORY nephrostomy tube PERCUTANEOUS CHEST DRAIN INSERTION Social History Tobacco Use Smoking status: Former Current packs/day: 0.00 Average packs/day: 1 pack/day for 5.0 years (5.0 ttl pk-yrs) Types: Cigarettes Start date: 1957 Quit date: 1963 Years since quittin.0 Smokeless tobacco: Current Types: Chew Vaping Use Vaping status: Never Used Substance Use Topics Alcohol use: Not Currently Comment: quit 40 years ago Drug use: Never No family history on file. OBJECTIVE: Medications: @MEDSINGROUPER@ Current Facility-Administered Medications: acetaminophen (Tylenol) tablet 1,000 mg, 1,000 mg, oral, q8h CHICHO, 1,000 mg at 08/10/24 0415 OR acetaminophen (Tylenol) suppository 650 mg, 650 mg, rectal, q8h CHICHO OR acetaminophen (Tylenol) solution 1,000 mg, 1,000 mg, oral, q8h CHICHO, Rj Oh gabapentin (Neurontin) capsule 100 mg, 100 mg, oral, TID, LALI Henry insulin lispro (HumaLOG) injection 0-5 Units, 0-5 Units, subcutaneous, q6h [facility], Rj Oh lactated Ringer's infusion, 50 mL/hr, intravenous, Continuous, Rj Oh, Last Rate: 50 mL/hr at 08/10/24 0538, 50 mL/hr at 08/10/24 0538 methocarbamol (Robaxin) tablet 500 mg, 500 mg, oral, 4x daily, LALI Henry morphine injection 2 mg, 2 mg, intravenous, Once, Dano Sommers APRN-FERN naloxone (Narcan) injection 0.2 mg, 0.2 mg, intravenous, PRN OR naloxone (Narcan) injection 0.2 mg, 0.2 mg, intramuscular, PRN OR naloxone (Narcan) injection 0.2 mg, 0.2 mg, subcutaneous, PRN, Rj Oh ondansetron HCl (PF) (Zofran) injection 4 mg, 4 mg, intravenous, q6h PRN, 4 mg at 08/10/24 0007 OR ondansetron (Zofran) 8 mg in sodium chloride 0.9 % 54 mL IVPB, 8 mg, intravenous, q6h PRN, Rj Oh oxyCODONE (Roxicodone) immediate release split tablet 2.5 mg, 2.5 mg, oral, q3h PRN OR oxyCODONE (Roxicodone) immediate release tablet 5 mg, 5 mg, oral, q3h PRN, Rj Oh, 5 mg at 08/10/24 0416 polyethylene glycol (Glycolax) packet 17 g, 17 g, oral, Daily, LALI Henry sennosides-docusate sodium (Bibiana-Colace) 8.6-50 mg per tablet 1 tablet, 1 tablet, oral, Nightly, Dano Sommers APRN-FERN Allergies: Allergies Allergen Reactions Iodine Unknown Per EMS Requip [Ropinirole] Tramadol Unknown Exam: Exam performed and reviewed, changes as below. Vitals reviewed: Temp: [36.4 ???C (97.5 ???F)] 36.4 ???C (97.5 ???F) Heart Rate: [100-106] 104 Resp: [16-27] 16 BP: (146-164)/(82-86) 164/82 I/O last 3 completed shifts: In: 273.3 (4.1 mL/kg) [I.V.:273.3 (4.1 mL/kg)] Out: 270 (4.1 mL/kg) [Urine:270 (0.1 mL/kg/hr)] Weight: 66.2 kg I/O this shift: In: 100 [I.V.:100] Out: - Constitutional: In no apparen (more content not included)... [facility] MAGNESIUMon 08-10-2024 Magnesium [Mass/Vol] 1.7 mg/dL Low 1.9-2.7 [facility] Comment on above: Performed By: #### L [id number] ####[facility] (BEAKER)[address] [place] [address] Magnesium [Mass/Vol] 1.4 mg/dL Low 1.9-2.7 [facility] Comment on above: Performed By: #### L [id number] ####[facility] (BEAKER)[address] [place] [address] MR THORACIC SPINE W AND WO C ONTRASTon 08-10-2024 MR THORACIC SPINE W AND WO CONTRAST MRI THORACIC SPINE WITH AND WITHOUT CONTRAST COMPARISON: CT abdomen pelvis 08/09/2024 HISTORY: Thoracic compression fracture, history of bladder cancer, rule out metastases versus traumatic fracture. Back pain after fall off horse 2 weeks ago. TECHNIQUE: Multisequence, multiplane MRI of the thoracic spine performed with and without contrast. Gadolinium contrast injected intravenously without reported complication. FINDINGS: Framer images demonstrate multilevel cervical spine degenerative changes including disc osteophyte complex with at least mild mass effect on the cervical spinal cord at C3-4, ligamentum flavum thickening at this level, and severe thecal sac narrowing. In addition, there are lumbar spine degenerative changes including the localizing sequences. These findings are incompletely characterized on this exam. Multiple liver masses incompletely visualized on this exam, refer to CT abdomen pelvis report for details. Right pleural effusion. Subacute T12 compression fracture with 60% loss of vertebral body height. Associated bone marrow edema and enhancement, with no evidence for an underlying lesion. Posterior buckling/retropulsion of the vertebral body with abutment of the spinal cord without cord compression. Focal mild to moderate thecal sac narrowing at this level. Mild superior endplate compression deformities at T1 and T2. Associated mild bone marrow edema of the superior endplate of T1 suspicious for an acute a subacute fracture. No definite bone marrow edema at T2 which could indicate a chronic fracture although there is a linear fracture line at the superior endplate and a subacute fracture is not excluded. There is edema in the superior bilateral paraspinous musculature likely sequela of recent injury. Diffuse hepatic skeletal hyperostosis. No suspicious bone marrow replacement process. Thoracic spinal cord is normal in signal and caliber. IMPRESSION: 1. Subacute, traumatic T12 compression fracture with 6 mm in vertebral body height loss. There is posterior cortical buckling/retropulsion abutting the spinal cord without cord compression. Focal mild to moderate thecal sac narrowing at this level. No underlying lesion. 2. Mild T1 and T2 superior plate compression deformities which may be subacute as detailed above. 3. No evidence for a mass of the thoracic spine. 4. Superior bilateral paraspinous muscular edema consistent with recent injury. 5. Multiple liver masses incompletely visualized, refer to CT abdomen and pelvis report for details. 6. Degenerative changes of cervical and lumbar spine incompletely characterized on this exam including severe thecal sac narrowing at C3-4, consider nonemergent dedicated cervical spine MRI if clinically indicated. Electronically signed: Dimitri Coyne. 9 Invalid Interpretation Code [facility] PHOSPHORUSon 08-10-2024 Magnesium [Mass/Vol] 2.8 mg/dL Normal 2.5-5.0 [facility] Comment on above: Performed By: #### L [id number] #### [facility] ([facility]) [address] [place] [address] Magnesium [Mass/Vol] 2.8 mg/dL Normal 2.5-5.0 [facility] Comment on above: Performed By: #### L [id number] ####[facility] (BEAKER)[address] [place] [address] POCT GLUCOSE METER UNSOLICIT ED RESULTSon 08-10-2024 Glucose [Mass/Vol] 162 mg/dL High 70-105 [facility] Comment on above: Order Comment: Waive d Testing in the ED is performed under the ED CLIA certificate #[id number]. Result Comment: ptso u5 Performed By: #### L [id number] #### [facility] ([facility]) [address] [place] [address] Glucose [Mass/Vol] 98 mg/dL Normal 70-105 [facility] Comment on above: Order Comment: Waive d Testing in the ED is performed under the ED CLIA certificate #[id number]. Result Comment: dglo nickolas Performed By: #### L [id number] ####[facility] ([facility])[address] [place] [address] TROPONIN Ion 08-10-2024 Troponin I.cardiac [Mass/Vol] 0.05 ng/mL High 0.00-0.04 [facility] Comment on above: Performed By: #### L [id number] #### [facility] ([facility]) [address] [place] [address] APTTon 08-09-2024 ACTIVATED PARTIAL THROMBOPLASTIN TIME IN PPP BY COAGULATION ASSAY 30.0 Seconds Normal 25.0-35.0 [facility] Comment on above: Result Comment: Clin ical significance of the APTT is questionable in the presence of heparin. Performed By: #### L [id number] #### [facility] ([facility]) [address] [place] [address] BASIC METABOLIC PANELon 07-28 Anion gap [Moles/Vol] 11 mmol/L Normal 7-20 [facility] Comment on above: Performed By: #### L [id number] #### [facility] ([facility]) [address] [place] [address] Calcium [Mass/Vol] 8.3 mg/dL Low 8.6-10.3 [facility] Comment on above: Performed By: #### L [id number] #### [facility] ([facility]) [address] [place] [address] Chloride [Moles/Vol] 97 mmol/L Low 98-107 [facility] Comment on above: Performed By: #### L [id number] #### [facility] ([facility]) [address] [place] [address] CO2 [Moles/Vol] 22 mmol/L Normal 21-31 [facility] Comment on above: Performed By: #### L [id number] #### [facility] ([facility]) [address] [place] [address] Creatinine [Mass/Vol] 1.16 mg/dL Normal 0.70-1.30 [facility] Comment on above: Performed By: #### L [id number] #### [facility] ([facility]) [address] [place] [address] GLOMERULAR FILTRATION RATE ML/MIN/1.73 SQ M.PREDICTED 62.9 mL/min/1.73m*2 Normal >60.0 [facility] Comment on above: Result Comment: [facility]???s estimated glomerular filtration rate (eGFR) will no longer include consideration of race in its calculation. The National Kid[employer] Foundation???s eGFR Task Force developed new recommendations for the estimation of the glomerular filtration rate in the [place] They recommend immediate implementation of the new equation refit without the race variable in all laboratories because the calculation does not include race. In addition to not including race in the calculation and reporting, it included diversity in its development, and has acceptable performance characteristics and potential consequences that do not disproportionately affect any one group of individuals. Performed By: #### L [id number] #### [facility] ([facility]) [address] [place] [address] Glucose [Mass/Vol] 76 mg/dL Normal 70-100 [facility] Comment on above: Performed By: #### L [id number] #### [facility] ([facility]) [address] [place] [address] Potassium [Moles/Vol] 4.4 mmol/L Normal 3.5-5.1 [facility] Comment on above: Performed By: #### L [id number] #### [facility] ([facility]) [address] [place] [address] Sodium [Moles/Vol] 126 mmol/L Low 136-145 [facility] Comment on above: Performed By: #### L [id number] #### [facility] ([facility]) [address] [place] [address] Urea nitrogen [Mass/Vol] 29 mg/dL High 7-25 [facility] Comment on above: Performed By: #### L [id number] #### [facility] ([facility]) [address] [place] [address] UREA NITROGEN/CREATININE (MASS RATIO) IN SER/PLAS 25.0 Normal [facility] Comment on above: Performed By: #### L [id number] #### [facility] ([facility]) [address] [place] [address] CBC WITH AUTO DIFFERENTIALon 08-09-2024 Basophils (Bld) [#/Vol] 0.02 10*3/uL Normal 0.00-0.20 [facility] Comment on above: Performed By: #### L [id number] #### [facility] ([facility]) [address] [place] [address] Basophils/100 WBC (Bld) 0.2 % Normal 0.0-1.0 [facility] Comment on above: Performed By: #### L [id number] #### [facility] ([facility] [address] [place] [address] Eosinophils (Bld) [#/Vol] 0.03 10*3/uL Normal 0.00-0.50 [facility] Comment on above: Performed By: #### L [id number] #### [facility] ([facility] [address] [place] [address] Eosinophils/100 WBC (Bld) 0.3 % Normal 0.0-6.0 [facility] Comment on above: Performed By: #### L [id number] #### [facility] ([facility]) [address] [place] [address] Erythrocyte distribution width (RBC) [Ratio] 17.6 % High 11.5-15.0 [facility] Comment on above: Performed By: #### L [id number] #### [facility] ([facility]) [address] [place] [address] ERYTHROCYTE MEAN CORPUSCULAR HEMOGLOBIN CONCENTRATION (G/DL) BY AUTOMATED 31.0 g/dL Low 32.0-35.0 [facility] Comment on above: Performed By: #### L [id number] #### [facility] ([facility]) [address] [place] [address] Hematocrit (Bld) [Volume fraction] 30.6 % Low 39.0-55.0 [facility] Comment on above: Performed By: #### L [id number] #### [facility] ([facility]) [address] [place] [address] Hemoglobin (Bld) [Mass/Vol] 9.5 g/dL Low 13.0-17.0 [facility] Comment on above: Performed By: #### L [id number] #### [facility] ([facility]) [address] [place] [address] Immature granulocytes (Bld) [#/Vol] 0.10 10*3/uL Normal 0.00-0.20 [facility] Comment on above: Performed By: #### L [id number] #### [facility] ([facility]) [address] [place] [address] Immature granulocytes/100 WBC (Bld) 1.1 % High 0.0-1.0 [facility] Comment on above: Performed By: #### L [id number] #### [facility] ([facility] [address] [place] [address] Lymphocytes (Bld) [#/Vol] 0.77 10*3/uL Low 1.20-4.00 [facility] Comment on above: Performed By: #### L [id number] #### [facility] ([facility]) [address] [place] [address] Lymphocytes/100 WBC (Bld) 8.5 % Low 20.0-45.0 [facility] Comment on above: Performed By: #### L [id number] #### [facility] ([facility]) [address] [place] [address] MCH (RBC) [Entitic mass] 29.4 pg Normal 27.0-33.0 [facility] Comment on above: Performed By: #### L [id number] #### [facility] ([facility]) [address] [place] [address] MCV (RBC) [Entitic vol] 94.7 fL Normal 82.0-98.0 [facility] Comment on above: Performed By: #### L [id number] #### [facility] ([facility]) [address] [place] [address] Monocytes (Bld) [#/Vol] 0.64 10*3/uL Normal 0.10-1.00 [facility] Comment on above: Performed By: #### L [id number] #### [facility] ([facility]) [address] [place] [address] Monocytes/100 WBC (Bld) 7.1 % Normal 5.0-12.0 [facility] Comment on above: Performed By: #### L [id number] #### [facility] ([facility]) [address] [place] [address] Neutrophils (Bld) [#/Vol] 7.45 10*3/uL Normal 1.60-7.60 [facility] Comment on above: Performed By: #### L [id number] #### [facility] ([facility] [address] [place] [address] Neutrophils/100 WBC (Bld) 82.8 % High 40.0-72.0 [facility] Comment on above: Performed By: #### L [id number] #### [facility] ([facility]) [address] [place] [address] NRBC (PER 100 WBCS) BY AUTOMATED COUNT 0.0 % Normal 0 [facility] Comment on above: Performed By: #### L [id number] #### [facility] ([facility]) [address] [place] [address] PLATELETS (10*3/UL) IN BLOOD AUTOMATED COUNT 212 10*3/uL Normal 150-400 [facility] Comment on above: Performed By: #### L [id number] #### [facility] ([facility]) [address] [place] [address] RBC (Bld) [#/Vol] 3.23 10*6/uL Low 4.20-5.70 [facility] Comment on above: Performed By: #### L [id number] #### [facility] ([facility]) [address] [place] [address] WBC (Bld) [#/Vol] 9.01 10*3/uL Normal 4.00-10.60 [facility] Comment on above: Performed By: #### L [id number] #### [facility] ([facility]) [address] [place] [address] EDNURSon 08-09-2024 EDNURS Mode of arrival (squ ad #, walk in, police, etc): [facility], stretcher, transfer from [facility] Chief complaint(s): T12 fracture, back pain Arrival Note (brief scenario, 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 Patient was attempting to mount his horse from a mounting block on 07/28/24 when he slipped and fell. Patient was taken to [facility] for eval and found to have a T12 fracture. Patient was discharged home from hospital as he states he was told the fracture was stable. For the past few days patient has had increasing pain in his back. He returned to [facility] today, was re-scanned, and found to have T12 compression fracture with increasing loss of vertebral body height and retropulsion of fracture, which impresses upon the ventral surface of the spinal cord. Patient arrives awake, alert, oriented. Pain 8/. Received a total of 125 mcg of Fentanyl IV en route to this facility. Last dose of pain meds: Fentanyl 25 mcg IVP @ 2014. Mar will be coming up to visit patient tomorrow. [facility] EDPROVon 08-09-2024 EDPROV History of Present Illness Chief Complaint Patient presents with Back Pain T12 fracture Patient is an 84-year-old male who presents to the emergency department for evaluation of back pain. Patient was transferred from [facility]. He states he was trying to get on his horse on July 28 and fell down injuring his back. He endorses severe pain to the right side of his lumbar spine. He denies pain radiating down the legs, numbness or weakness of the lower extremities. He states he does not urinate because he has a nephrostomy tube in place. He denies fever, chest pain, shortness of breath, abdominal pain, nausea, vomiting. He states he had concerning imaging at the outside hospital and was transferred here for spine surgery evaluation John Coma Scale Score: 15 History Past Medical History: Diagnosis Date Allergies Arthritis Atrial fibrillation (CMS/HCC) Bladder problem Cancer (CMS/HCC) Carotid stenosis CHF (congestive heart failure) (CMS/HCC) Coronary artery disease Hyperlipidemia Hypertension Ischemic cardiomyopathy Kidney problem Myocardial infarction (CMS/HCC) Thoracic vertebral fracture (CMS/HCC) 07/28/2024 T12 Past Surgical History: Procedure Laterality Date CARDIAC CATHETERIZATION 05/19/2024 CORONARY ARTERY BYPASS GRAFT 02/05/2017 CTA HEART CORONARY W IV CONTRAST W OR WO FFRCT 02/03/2017 CT HEART CORONARY ANGIOGRAM PARIKH CONVERSION LIVER BIOPSY 06/03/2024 NEPHRECTOMY 07/28/2017 OTHER SURGICAL HISTORY nephrostomy tube PERCUTANEOUS CHEST DRAIN INSERTION No family history on file. Social History Tobacco Use Smoking status: Former Current packs/day: 0.00 Average packs/day: 1 pack/day for 5.0 years (5.0 ttl pk-yrs) Types: Cigarettes Start date: 1957 Quit date: 1963 Years since quittin.0 Smokeless tobacco: Current Types: Chew Vaping Use Vaping status: Never Used Substance Use Topics Alcohol use: Not Currently Comment: quit 40 years ago Drug use: Never Review of Systems Review of Systems Physical Exam ED Triage Vitals [08/09/242036] Temp Heart Rate Resp BP 36.4 ???C (97.5 ???F) 100 25 146/84 SpO2 Temp Source Heart Rate Source Patient Position 97 % Oral Monitor Lying BP Location FiO2 (%) Right arm -- Physical Exam Vitals and nursing note reviewed. Constitutional: General: He is not in acute distress. Appearance: He is well-developed. HENT: Head: Normocephalic and atraumatic. Eyes: Conjunctiva/sclera: Conjunctivae normal. Cardiovascular: Rate and Rhythm: Normal rate and regular rhythm. Heart sounds: No murmur heard. Pulmonary: Effort: Pulmonary effort is normal. No respiratory distress. Breath sounds: Normal breath sounds. No wheezing. Abdominal: Palpations: Abdomen is soft. Tenderness: There is no abdominal tenderness. Musculoskeletal: General: No swelling. Cervical back: Neck supple. Comments: tenderness to palpation of lumbar spine Skin: General: Skin is warm and dry. Capillary Refill: Capillary refill takes less than 2 seconds. Neurological: Mental Status: He is alert. Sensory: No sensory deficit. Motor: No weakness. Comments: no clonus Psychiatric: Mood and Affect: Mood normal. Procedures ED Course & MDM Diagnoses as of 08/10/24 1011 Fall from horse, initial encounter Medical Decision Making trauma surgery admitting patient for further workup of T12 fracture IReva (-scribe), documented on behalf of Dr. Nunez on 08/09/2024 at 9:07 PM. Mykel Olivera is a 84 y.o. male presenting to the ED with chief complaint of back pain. Dr. Nunez personally saw and evaluated the patient. Dr. Nunez discussed the management with the resident, Dr. Weinberg. Dr. Nunez reviewed the resident's note and agrees with the documentation. Dr. Nunez performed the substantive portion of the Physical exam. Exam findings as follows: Alert. No distress. PERRL. Mucus membranes are moist. Heart is regular rate, regular irregular rhythm. Lungs are clear to auscultation. Abd is soft, nontender. No peripheral edema. Motor sensory intact. No midline spine tenderness. Right CVA tenderness with urostomy present. ----- RESULTS ----- Labs: Labs Reviewed BASIC METABOLIC PANEL - Abnormal Result Value Sodium 126 (*) Potassium 4.4 Chloride 97 (*) CO2 22 BUN 29 (*) Creatinine 1.16 Glucose 76 Calcium 8.3 (*) Anion Gap 11 eGFR 62.9 BUN/Creatinine Ratio 25.0 PROTIME-INR - Abnormal Protime 15.2 (*) INR 1.20 (*) CBC WITH AUTO DIFFERENTIAL - Abnormal Auto WBC 9.01 RBC 3.23 (*) Hemoglobin 9.5 (*) Hematocrit 30.6 (*) MCV 94.7 MCH 29.4 MCHC 31.0 (*) RDW 17.6 (*) Neutrophils Relative 82.8 (*) Lymphocytes Relative 8.5 (*) Monocytes Relative 7.1 Eosinophils Relative 0.3 Basophils Relative 0.2 Neutrophils Absolute 7.45 Lymphocyte (more content not included)... Normal [facility] HPon 08-09-2024 HP Subjective Chief Complaint: Trauma Fall Mechanism of Injury (History of what occurred prior to arrival): 84 y.o. year old male who was brought in via EMS. He had no C-collar or back board in place. Circumstances of injury: Patient with past medical history significant for bladder cancer, CHF, CAD, hyperlipidemia, hypertension, presented to emergency department as a transfer from outside hospital to be evaluated for back pain. Patient reports to have fallen while attempting to mount a horse on 07/28/2024. Patient reports he fell onto his back. Patient reports that the ground was soft and negative loose dirt. Patient denied head trauma or loss of consciousness. Patient reports worsening back pain over the past couple days. Pain is located in the right side mid back near his nephrostomy site. Patient reports increased drainage from the nephrostomy site. CT imaging performed at outside hospital shows T12 compression fracture with retropulsion of fracture fragments and rightkidney hydronephrosis. Patient denies numbness, tingling, weakness in bilateral upper or lower extremities. Patient denies loss of bowel control. Patient denies chest pain, shortness of breath, headache, vision changes, nausea, vomiting, diarrhea. Of note patient is on Eliquis for atrial fibrillation. Review of Systems: 12 point review of systems completed. All pertinent positives and negatives annotated in HPI. All other systems negative. History History collected from patient and medical chart review Past Medical History: has a past medical history of Allergies, Arthritis, Bladder problem, Cancer ([facility]), Carotid stenosis, CHF (congestive heart failure) ([facility]), Coronary artery disease, Hyperlipidemia, Hypertension, Ischemic cardiomyopathy, Kidney problem, and Myocardial infarction ([facility]). Past Surgical History: has a past surgical history that includes CTA Heart Coronary W IV Contrast W or WO FFRct (02/03/2017); Nephrectomy (07/28/2017); Percutaneous chest drain insertion; Coronary artery bypass graft (02/05/2017); and Cardiac catheterization. Allergies: Iodine, Requip [ropinirole], and Tramadol Home Medications: (Not in a hospital admission) Social History: reports that he quit smoking about 62 years ago. His smoking use included cigarettes. He started smoking about 67 years ago. He has a 5 pack-year smoking history. His smokeless tobacco use includes chew. He reports that he does not currently use alcohol. He reports that he does not use drugs. Family History: pulled available information in [facility] from previous visits No family history on file. Objective Vitals: BP: (146-163)/(84-86) 156/84 (08/09 2238) Systolic BP Percentile: -- Diastolic BP Percentile: -- Temp: [36.4 ???C (97.5 ???F)] 36.4 ???C (97.5 ???F) (08/09 2036) Temp Source: Oral (08/09 2036) Heart Rate: [100-106] 106 (08/09 2238) Resp: [21-27] 27 (08/09 2238) SpO2: [95 %-97 %] 96 % (08/09 2238) Height: [182.9 cm (6')] 182.9 cm (6') (08/09 2043) Weight: [66.2 kg (146 lb)] 66.2 kg (146 lb) (08/09 2043) [place] Coma Scale Score: 15 Physical Exam: General: Awake, Alert, No acute distress Head: Normocephalic and Atraumatic. Mid Face Stable. Tympanic Membranes Intact. Nares Patent Bilaterally, No Epistaxis. Mouth Clear Of Foreign Bodies, No Lacerations Or Abrasions, Teeth Intact. No fluid or blood draining from the ear, nose or mouth. Eyes: PERRL, EOMI Neurologic: Alert And Oriented to self, place and time. Moving Extremities and Following Commands. CN 2-12 Grossly Intact, GCS 15 Neck: Cervical Spine Is Nontender To Palpation Without Step-Offs, Crepitus, Or Deformity. No Abrasions, Contusions, Or Ecchymosis Noted Back: Thoracic and Lumbar Spine Are Nontender To Palpation Without Step-Offs, Crepitus, Or Deformity. No Abrasions, Contusions, Or Ecchymosis Noted. Right-sided nephrostomy tube in place. Urine draining from nephrostomy site. Area surrounding nephrostomy tube exquisitely tender to palpation. Lungs: Clear to Auscultation Bilaterally With Normal Work Of Breathing Chest Wall: Chest Rise Symmetrical. No Crepitus, Deformities, Lacerations, Or Abrasions Cardiovascular: regular rate and rhythm. Palpable femoral/radial/DP pulses bilaterally Abdomen: Soft, Nontender, and Nondistended With Normoactive Bowel Sounds. No Guarding. No bruising or abrasions noted, no seat belt signs Pelvis: Pelvis Is Stable to Compression Rectal exam: deferred- patient able to squeeze buttocks Extremities: No Gross Deformities noted. Skin: Warm And Dry. Normal For Ethnicity Psych: Friendly, Cooperative Labs: Recent Results (from the past 12 hour(s)) Basic metabolic panel Collection Time: 08/09/24 9:31 PM Result Value Ref Range Sodium 126 (L) 136 - 145 mmol/L Potassium 4.4 3.5 - 5.1 mmol/L Chloride 97 (L) 98 - 107 mmol/L CO2 22 21 - 31 mmol/L BUN 29 (H) 7 - 25 mg/dL Creatinine 1.16 0.70 - 1.30 mg/dL Glucose 76 70 - 100 mg/ (more content not included)... Normal [facility] PROTIME-INRon 08-09-2024 INR IN PPP BY COAGULATION ASSAY 1.20 High 0.90-1.10 [facility] Comment on above: Result Comment: ACCC P RECOMMENDED INR FOR WARFARIN THERAPY CONDITION INR PROPHYLAXIS OF VENOUS THROMBOSIS 2-3 (HIGH-RISK SURGERY) TREATMENT OF VENOUS THROMBOSIS 2-3 TREATMENT OF PULMONARY EMBOLISM 2-3 PREVENTION OF SYSTEMIC EMBOLISM: 2-3 ACUTE MYOCARDIAL INFARCTION TISSUE HEART VALVES VALVULAR HEART DISEASE ATRIAL FIBRILLATION RECURRENT SYSTEMIC EMBOLISM MECHANICAL HEART VALVE 2.5-3.5 FROM: ORAL ANTICOAGULANTS. MECHANISM OF ACTION, CLINICAL EFFECTIVENESS, AND OPTIMAL THERAPEUTIC RANGE. CHEST 1995;108:231S-246S. Performed By: #### L [id number] #### [facility] [place] ([facility]) [address] [place] [address] PROTHROMBIN TIME (PT) IN PPP BY COAGULATION ASSAY 15.2 Seconds High 12.3-14.8 [facility] Comment on above: Performed By: #### L [id number] #### [facility] ([facility]) [address] [place] [address] C Urineon 07-14-2024 Bacteria identified Cx Nom (U) Microbiology PROCEDURE: Urine Culture [R1] SOURCE: U Random BODY SITE: COLLECTED DATE/TIME: 07/12/2024 11:50 EST RECEIVED DATE/TIME: 07/12/2024 17:19 EST START DATE/TIME: 07/12/2024 17:19 EST FREE TEXT SOURCE: THEO CARDOSO, Kami VENEGAS MD, Kami Silver FINAL REPORTS Final Report [] Verified Date/Time: 07/14/2024 10:59 EST >100,000 cfu/ml Citrobacter freundii SUSCEPTIBILITY RESULTS __ LEGEND: S=Susceptible, N/R=Not Reported, Blank=Data not available, or drug not advisable or tested, I=Intermediate, ESBL=Extended spectrum beta-lactamase, R=Resistant, TFG=Thymidine-dependen t strain, CHARU=Beta-lactamase positive, RACHELLE=mcg/m;(mg/L), S*=Predicted susceptible interp, R*=Predicted resistant interp Citfreu Antibiotic RACHELLE Dilutn RACHELLE Interp Ampicillin 16 R* Ampicillin/ <=8/4 R* Sulbactam Aztreonam <=4 S Cefazolin >16 R Cefepime <=2 S Ceftazidime <=1 S Ceftazidime/ <=8 S Avibactam Ceftriaxone 2 I Cefuroxime >16 R Ciprofloxacin <=0.25 S Ertapenem <=0.5 S Gentamicin <=2 S Levofloxacin <=0.5 S Meropenem <=1 S Nitrofurantoin <=32 S Piperacillin/ <=8 S Tazobactam Tetracycline <=4 S Tobramycin <=2 S Trimethoprim/ <=2/38 S Sulfa Performing Locations R1: This test was performed at: [facility], [address] [place] [address], [address] , , Normal [facility] Comment on above: Performed By: #### [id number] #### [facility] [address] [place] [address] Erythrocyte distribution wid th Auto (RBC) [Ratio]on 06-21-2024 Erythrocyte distribution width (RBC) [Ratio] Erythrocyte distribution width [Ratio] by Automated count High 11.0-15.0 [facility] Estimated glomerular filtrat ion rate (GFR) non- Americanon 06-21-2024 GFR/1.73 sq M.predicted among non-blacks MDRD (S/P/Bld) [Vol rate/Area] Estimated glomerular filtration rate (GFR) non- Low >=60 mL/min/1.73 m 2 [facility] Hematocrit Auto (Bld) [Volum e fraction]on 06-21-2024 Hematocrit (Bld) [Volume fraction] Hematocrit [Volume Fraction] of Blood by Automated count Low 42.0-54.0 [facility] Hemoglobin [Mass/volume] in Bloodon 06-21-2024 Hemoglobin (Bld) [Mass/Vol] Hemoglobin [Mass/volume] in Blood Low 14.0-18.0 [facility] Laboratory - Chemistry and C hemistry - challengeon 06-21-2024 Albumin [Mass/Vol] 2.5 g/dL Low 3.4-5.0 [facility] Calcium [Mass/Vol] 9.1 mg/dL 8.5-10.1 [facility] Chloride [Moles/Vol] 97 mmol/L Low 98-107 [facility] CO2 [Moles/Vol] 21.1 mmol/L 21.0-32.0 [facility] Creatinine [Mass/Vol] 2.28 mg/dL High 0.70-1.30 [facility] GFR/1.73 sq M.predicted MDRD (S/P/Bld) [Vol rate/Area] 34 mL/min/{1.73_m2} Low >=60 mL/min/1.73 m 2 [facility] Glucose [Mass/Vol] 92 mg/dL 74-106 [facility] Magnesium [Mass/Vol] 1.7 mg/dL Low 1.8-2.4 [facility] Potassium [Moles/Vol] 5.9 mmol/L High 3.5-5.1 [facility] Sodium [Moles/Vol] 129 mmol/L Low 136-145 [facility] Urea nitrogen [Mass/Vol] 32.0 mg/dL High 7.0-18.0 [facility] Urea nitrogen/Creatinine [Mass ratio] 14.0 mg/mg [facility] Bilirubin Ql (U) Negative NEGATIVE [facility] Glucose (U) [Mass/Vol] Negative NEGATIVE [facility] [place] Ql (U) Negative NEGATIVE [facility] pH (U) 7.0 [pH] 5.0-9.0 [facility] Specific gravity (U) [Rel density] 1.025 1.005-1.025 [facility] Urobilinogen Qn (U) 0.2 {Raffi'U}/dL 0.2-1.0 [facility] Laboratory - Specimen inform ationon 06-21-2024 Appearance (U) CLEAR CLEAR [facility] Color (U) LT. YELLOW YELLOW [facility] Laboratory - Urinalysison Leukocyte esterase Test strip Ql (U) TRACE Abnormal NEGATIVE [facility] Nitrite Ql (U) Negative NEGATIVE [facility] Protein Ql (U) 100 mg/dL Abnormal NEG/TRACE [facility] Leukocytes [#/volume] correc ronald for nucleated erythrocytes in Blood by Automated counon 06-21-2024 WBC corrected for nucl RBC Auto (Bld) [#/Vol] Leukocytes [#/volume] corrected for nucleated erythrocytes in Blood by Automated coun 4.0-11.0 [facility] MCH Auto (RBC) [Entitic mass ]on 06-21-2024 MCH (RBC) [Entitic mass] MCH [Entitic ma ss] by Automated count 25.9-34.0 [facility] MCHC Auto (RBC) [Mass/Vol]on 06-21-2024 MCHC (RBC) [Mass/Vol] MCHC [Mass/volume] by Automated count 29.9-35.2 [facility] MCV Auto (RBC) [Entitic vol] on 06-21-2024 MCV (RBC) [Entitic vol] MCV [Entitic vol ume] by Automated count High 80.0-94.0 [facility] Microalbumin [Mass/volume] i n Urineon 06-21-2024 Albumin DL <= 20 mg/L (U) [Mass/Vol] Microalbumin [Mass/volume] in Urine <=30.0 [facility] No Panel Informationon 06-21 25-Hydroxy Vitamin D Total 59.4 ng/mL [facility] Comment on above: <20 ng/mL Vit D defi cient20-<30 ng/mL Vit D [id number] ng/mL Vit D sufficient>100 ng/mL Potential Toxicity Parathyroid Hormone (Intact) 39 pg/mL 15-65 [facility] Comment on above: Performed at: [facility] [employer] [address] [id number] Director: Naveen Pozo PhD, Phone: [phone] Phosphorus Level 3.0 mg/dL 2.6-4.7 [facility] Urine Occult Blood MODERATE Abnormal NEGATIVE [facility] Urine Random Creatinine 60.34 mg/dL 20.0 0-300.0 0 [facility] Platelet mean volume Auto (B ld) [Entitic vol]on 06-21-2024 Platelet mean volume (Bld) [Entitic vol] Platelet mean volume [Entitic volume] in Blood by Automated count 9.5-13.5 [facility] Platelets Auto (Bld) [#/Vol] on 06-21-2024 Platelets (Bld) [#/Vol] Platelets [#/vol ume] in Blood by Automated count 150-450 [facility] RBC Auto (Bld) [#/Vol]on RBC (Bld) [#/Vol] Erythrocytes [#/volume] in Blood by Automated count Low 4.70-6.10 [facility] Serum or plasma anion gap de terminationon 06-21-2024 Anion gap [Moles/Vol] Serum or plasma an ion gap determination [facility] Urine microalbumin/creatinin e mass ratioon 06-21-2024 Albumin/Creatinine DL <= 20 mg/L (U) [Mass ratio] Urine microalbumin/creatinin e mass ratio High 0.0-29.9 [facility] Comment on above: NO MICROALBUMINURIA 0-29 MG/GCLINICAL MICROALBUMINURIA 30-300 MG/GMACROALBUMINURIA >300 MG/G C Urineon 06-20-2024 Bacteria identified Cx Nom (U) Microbiology PROCEDURE: Urine Culture [R1] SOURCE: U Random BODY SITE: COLLECTED DATE/TIME: 06/17/2024 10:09 EST RECEIVED DATE/TIME: 06/17/2024 17:23 EST START DATE/TIME: 06/17/2024 17:23 EST FREE TEXT SOURCE: Pablo DAUGHERTY, Sarah DAUGHERTY, Sarah Ba FINAL REPORTS Final Report [] Verified Date/Time: 06/20/2024 09:24 EST >100,000 cfu/ml Proteus mirabilis SUSCEPTIBILITY RESULTS __ LEGEND: S=Susceptible, N/R=Not Reported, Blank=Data not available, or drug not advisable or tested, I=Intermediate, ESBL=Extended spectrum beta-lactamase, R=Resistant, TFG=Thymidine-dependen t strain, CHARU=Beta-lactamase positive, RACHELLE=mcg/m;(mg/L), S*=Predicted susceptible interp, R*=Predicted resistant interp Promir Antibiotic RACHELLE Dilutn RACHELLE Interp Ampicillin >16 R Ampicillin/ <=8/4 S Sulbactam Aztreonam <=4 S Cefazolin 16 I Cefepime <=2 S Ceftazidime <=1 S Ceftazidime/ <=8 S Avibactam Ceftriaxone <=1 S Cefuroxime <=4 S Ciprofloxacin 0.5 I Ertapenem <=0.5 S Gentamicin <=2 S Levofloxacin <=0.5 S Meropenem <=1 S Nitrofurantoin 64 R* Piperacillin/ <=8 S Tazobactam Tetracycline >8 R Tobramycin <=2 S Trimethoprim/ <=2/38 S Sulfa Performing Locations R1: This test was performed at: [facility], [address] [place] [address], [facility]- , , Normal [facility] Comment on above: Performed By: #### [id number] #### [facility] [address] [place] [address] IR nephrostomy tube chg UNon 06-14-2024 IR nephrostomy tube chg UN [facility] [place] [address] Interventional Radiology Rpt Signed Patient: Mykel Olivera MR#: [id number] : 1940 Acct:[id number] Age/Sex: 84 / M ADM Date: 06/14/24 Loc: IR Room: Type: [facility] Attending Dr: Kami Venegas MD Copies to: [...] advanced into the collecting system. A 12 [place] Citizen tube was administered into the renal collecting system with wire guidance. Pigtail catheter locked. Tube secured to skin. Adequate position confirmed with contrast administration. No immediate complications. Patient discharged in satisfactory condition. IR/IR nephrostomy tube chg UN IMPRESSION: Successful replacement of right percutaneous nephrostomy tube Impression dictated by: Declan Moreira M.D.06/14/2024 12:45 PM Dictation Location: [place] [address] Transcribed By: [facility] 06/14/24 1245 Dictated By: Declan Moreira DO 06/14/24 1238 Signed By: 06/14/24 1245 Normal [facility] Follow-Upon 06-09-2024 Follow-Up [id number] Mykel Olivera 1940 M Date Provider Department Center 06/09/2024 [place], EHAB BH CARD [facility] No family history on file Level of Service:63533 SC OFFICE/OUTPATIENT ESTABLISHED MOD MDM 30 MIN Normal [facility] CBC AND AUTO DIFFon 06-04-20 ABSOLUTE BASOPHIL 0.0 X10E9/L Normal 0.0-0.2 [facility] Comment on above: Performed By: #### C BCA, CMP, 1833-, 96566-5, FEPR, 2276-4, 2284-8, 2131-9, TSHR #### [facility] ([id number]) [address], [address] [place] [address] ABSOLUTE NEUTROPHIL 7.7 X10E9/L High 1.5-6.6 [facility] Comment on above: Performed By: #### C BCA, CMP, 1833-, 36129-6, FEPR, 2276-4, 2284-8, 213-9, TSHR #### [facility] ([id number]) [address], [address] [place] [address] Basophils/100 WBC (Bld) 0.3 % Normal [facility] Comment on above: Performed By: #### C BCA, CMP, 1833-, 82852-4, FEPR, 2276-4, 2284-8, 2132-9, TSHR #### [facility] ([id number]) [address], [address] [address] Eosinophils (Bld) [#/Vol] 0.1 10*3/uL Normal 0.0-0.4 [facility] Comment on above: Performed By: #### C BCA, CMP, 1833-, 54559-9, FEPR, 2276-4, 2284-8, 9, TSHR #### [facility] ([id number]) [address] [address] Eosinophils/100 WBC (Bld) 1.3 % Normal [facility] Comment on above: Performed By: #### C BCA, CMP, 1833-07, , FEPR, 2276-4, 2284-8, 2132-03, TSHR #### [facility] ([id number]) [address] [address] Erythrocyte distribution width (RBC) [Ratio] 15.3 % High 11.5-15.0 [facility] Comment on above: Performed By: #### C BCA, CMP, 1833-07, , FEPR, 2276-4, 2283-8, 2132-03, TSHR #### [facility] ([id number]) [address] [address] Hematocrit (Bld) [Volume fraction] 24.1 % Low 39-49 [facility] Comment on above: Performed By: #### C BCA, CMP, 1833-07, , FEPR, 2276-4, 2284-8, 9, TSHR #### [facility] ([id number]) [address] [address] Hemoglobin (Bld) [Mass/Vol] 8.4 g/dL Low 13.0-17.0 [facility] Comment on above: Performed By: #### C BCA, CMP, 1833-07, , FEPR, 2276-4, 2284-8, 2132-03, TSHR #### [facility] ([id number]) [address], [address] [place] [address] Lymphocytes (Bld) [#/Vol] 0.4 10*3/uL Low 1.0-3.5 [facility] Comment on above: Performed By: #### C BCA, CMP, 1833-, , FEPR, 2275-4, 8, 2132-03, TSHR #### [facility] ([id number]) [address], [address] [place] [address] Lymphocytes/100 WBC (Bld) 4.1 % Normal [facility] Comment on above: Performed By: #### C BCA, CMP, 1833-, , FEPR, 2275-, 2284-02, 2132-03, TSHR #### [facility] ([id number]) [address], [address] [place] [address] MCH (RBC) [Entitic mass] 31.9 pg Normal 27-34 [facility] Comment on above: Performed By: #### C BCA, CMP, 1833-, , FEPR, 2275-4, 2284-02, 2132-03, TSHR #### [facility] ([id number]) [address], [address] [place] [address] MCHC (RBC) [Mass/Vol] 34.9 g/dL Normal 32-36 [facility] Comment on above: Performed By: #### C BCA, CMP, 1833-, , FEPR, 2275-4, 2284-02, 2132-03, TSHR #### [facility] ([id number]) [address], [address] [place] [address] MCV (RBC) [Entitic vol] 91 fL Normal 80-100 [facility] Comment on above: Performed By: #### C BCA, CMP, 1834-1, 83226-5, FEPR, 2276-4, 2284-8, 2131-9, TSHR #### [facility] ([id number]) [address], [address] [place] [address] Monocytes (Bld) [#/Vol] 1.1 10*3/uL High 0-0.9 [facility] Comment on above: Performed By: #### C BCA, CMP, 1834-1, 29476-1, FEPR, 2276-4, 2284-8, 2131-9, TSHR #### [facility] ([id number]) [address] [facility] [address] [place] [address] Monocytes/100 WBC (Bld) 11.6 % Normal [facility] Comment on above: Performed By: #### C BCA, CMP, 1833-, 09271-8, FEPR, 2276-4, 2284-8, 2131-9, TSHR #### [facility] ([id number]) [address], [address] [place] [address] Neutrophils/100 WBC (Bld) 82.7 % Normal [facility] Comment on above: Performed By: #### C BCA, CMP, 1833-, 83655-5, FEPR, 2276-4, 2284-8, 2131-9, TSHR #### [facility] ([id number]) [address], [address] [place] [address] Platelet mean volume (Bld) [Entitic vol] 7.5 fL Normal 7-12 [facility] Comment on above: Performed By: #### C BCA, CMP, 4-, 11762-8, FEPR, 2276-4, 2284-8, 2-9, TSHR #### [facility] ([id number]) [address], [address] [place] [address] Platelets (Bld) [#/Vol] 199 10*3/uL Normal 150-450 [facility] Comment on above: Performed By: #### C BCA, CMP, 1833-, 46231-6, FEPR, 2276-4, 2284-8, 2131-9, TSHR #### [facility] ([id number]) [address], [address] [place] [address] POLYCHROMASIA 1+ Abnormal NONE [facility] Comment on above: Performed By: #### C BCA, CMP, 1833-, 44470-2, FEPR, 2276-4, 2284-8, 2132-03, TSHR #### [facility] ([id number]) [address], [address] [place] [address] RBC COUNT 2.64 X10E12/L Low 4.10-5.70 [facility] Comment on above: Performed By: #### C BCA, CMP, 1833-07, , FEPR, 2276-4, 2283-8, 2132-03, TSHR #### [facility] ([id number]) [address], [address] [place] [address] WBC (Bld) [#/Vol] 9.4 10*3/uL Normal 4.0-11.0 [facility] Comment on above: Performed By: #### C BCA, CMP, 1833-07, , FEPR, 2276-4, 2284-8, 2132-03, TSHR #### [facility] ([id number]) [address], [address] [place] [address] COMPREHENSIVE METABOLIC PANE Zoran 06-04-2024 Albumin [Mass/Vol] 2.7 g/dL Low 3.2-5.3 [facility] Comment on above: Performed By: #### C BCA, CMP, 1833-, 41668-9, FEPR, 2276-4, 2284-8, 9, TSHR #### [facility] ([id number]) [address], [address] [place] [address] ALP [Catalytic activity/Vol] 279 U/L High 39-130 [facility] Comment on above: Performed By: #### C BCA, CMP, 1833-1, 56372-6, FEPR, 2276-4, 2284-8, 2131-9, TSHR #### [facility] ([id number]) [address], [address] [place] [address] ALT [Catalytic activity/Vol] 72 U/L High 0-40 [facility] Comment on above: Performed By: #### C BCA, CMP, 1833-, , FEPR, 2276-4, 2284-8, 2132-03, TSHR #### [facility] ([id number]) [address], [address] [place] [address] Anion gap [Moles/Vol] 9 mmol/L Normal 5-15 [facility] Comment on above: Performed By: #### C BCA, CMP, 1833-07, , FEPR, 2276-4, 2284-8, 2132-03, TSHR #### [facility] ([id number]) [address], [address] [place] [address] AST [Catalytic activity/Vol] 91 U/L High 0-41 [facility] Comment on above: Performed By: #### C BCA, CMP, 1833-, , FEPR, 2276-4, 2284-8, 9, TSHR #### [facility] ([id number]) [address], [address] [place] [address] Bilirubin [Mass/Vol] 1.8 mg/dL High 0.3-1.2 [facility] Comment on above: Performed By: #### C BCA, CMP, 1833-, 77065-1, FEPR, 2276-4, 2284-8, 2132-03, TSHR #### [facility] ([id number]) [address], [address] [place] [address] Calcium [Mass/Vol] 8.8 mg/dL Normal 8.5-10.5 [facility] Comment on above: Performed By: #### C BCA, CMP, 1834-1, 54483-4, FEPR, 2276-4, 2283-8, 2132-03, TSHR #### [facility] ([id number]) [address], [address] [place] [address] Chloride [Moles/Vol] 92 mmol/L Low 98-109 [facility] Comment on above: Performed By: #### C BCA, CMP, 1833-1, 94193-8, FEPR, 6-4, 2283-8, 2132-03, TSHR #### [facility] ([id number]) [address], [address] [place] [address] CO2 [Moles/Vol] 28 mmol/L Normal 22-32 [facility] Comment on above: Performed By: #### C BCA, CMP, 1833-, 60032-1, FEPR, 6-4, 2283-8, 2132-03, TSHR #### [facility] ([id number]) [address], [address] [place] [address] Creatinine [Mass/Vol] 1.60 mg/dL High 0.60-1.30 [facility] Comment on above: Result Comment: METH OD TRACEABLE TO IDMS STANDARD Performed By: #### C BCA, CMP, 1834-1, 05549-5, FEPR, 2276-4, 2283-8, 2132-03, TSHR #### [facility] ([id number]) [address], [address] [place] [address] GFR/1.73 sq M.predicted among non-blacks MDRD (S/P/Bld) [Vol rate/Area] 43 mL/min/{1.73_m2} Low >59 [facility] Comment on above: Result Comment: Reported eGFR is based on the CKD-EPI 2020 equation that does not use a race coefficient. Performed By: #### C BCA, CMP, 1833-, 34785-0, FEPR, 2276-4, 2284-8, 2132-03, TSHR #### [facility] ([id number]) [address], [address] [place] [address] Glucose [Mass/Vol] 94 mg/dL Normal 65-99 [facility] Comment on above: Performed By: #### C BCA, CMP, 1833-07, , FEPR, 2276-4, 228-8, 2132-03, TSHR #### [facility] ([id number]) [address], [address] [place] [address] Potassium [Moles/Vol] 3.9 mmol/L Normal 3.5-5.0 [facility] Comment on above: Performed By: #### C BCA, CMP, 1833-07, , FEPR, 2276-4, 228-8, 2132-03, TSHR #### [facility] ([id number]) [address], [address] [place] [address] Protein [Mass/Vol] 6.0 g/dL Normal 6.0-8.0 [facility] Comment on above: Performed By: #### C BCA, CMP, 1833-07, , FEPR, 2276-4, 2284-8, 2132-03, TSHR #### [facility] ([id number]) [address], [address] [place] [address] Sodium [Moles/Vol] 129 mmol/L Low 134-146 [facility] Comment on above: Performed By: #### C BCA, CMP, 1833-07, 62424-4, FEPR, 2276-4, 2284-8, 2132-03, TSHR #### [facility] ([id number]) [address], [address] [place] [address] Urea nitrogen [Mass/Vol] 34 mg/dL High 5-27 [facility] Comment on above: Performed By: #### C BCA, CMP, 1833-, 28035-7, FEPR, 6-4, 2283-8, 2132-03, TSHR #### [facility] ([id number]) [address], [address] [place] [address] MAGNESIUMon 06-04-2024 Magnesium [Mass/Vol] 2.0 mg/dL Normal 1.8-2.6 [facility] Comment on above: Performed By: #### C BCA, CMP, 1833-, 44061-2, FEPR, 2275-4, 8, 2132-03, TSHR #### [facility] ([id number]) [address], [address] [place] [address] CBC AND AUTO DIFFon 06-03-20 24 ABSOLUTE BASOPHIL 0.1 X10E9/L Normal 0.0-0.2 [facility] Comment on above: Performed By: #### C BCA, CMP, 1833-, 90343-3, FEPR, 2275-4, 2284-02, 2132-03, TSHR #### [facility] ([id number]) [address], [address] [place] [address] ABSOLUTE NEUTROPHIL 6.2 X10E9/L Normal 1.5-6.6 [facility] Comment on above: Performed By: #### C BCA, CMP, 1833-, 81312-6, FEPR, 2275-4, 2284-02, 2132-03, TSHR #### [facility] ([id number]) [address], [address] [place] [address] Basophils/100 WBC (Bld) 0.9 % Normal [facility] Comment on above: Performed By: #### C BCA, CMP, 1833-, , FEPR, 2276-4, 2283-8, 2132-03, TSHR #### [facility] ([id number]) [address], [address] [place] [address] Eosinophils (Bld) [#/Vol] 0.2 10*3/uL Normal 0.0-0.4 [facility] Comment on above: Performed By: #### C BCA, CMP, 1833-07, , FEPR, 2276-4, 2283-8, 2132-03, TSHR #### [facility] ([id number]) [address], [address] [address] Eosinophils/100 WBC (Bld) 2.2 % Normal [facility] Comment on above: Performed By: #### C BCA, CMP, 1833-07, , FEPR, 6-4, 2283-8, 2132-03, TSHR #### [facility] ([id number]) [address], [address] [address] Erythrocyte distribution width (RBC) [Ratio] 15.5 % High 11.5-15.0 [facility] Comment on above: Performed By: #### C BCA, CMP, 1833-07, , FEPR, 6-4, 2283-8, 2132-03, TSHR #### [facility] ([id number]) [address], [address] [place] [address] Hematocrit (Bld) [Volume fraction] 20.6 % Low 39-49 [facility] Comment on above: Performed By: #### C BCA, CMP, 1833-, , FEPR, 2276-4, 2284-8, 2132-03, TSHR #### [facility] ([id number]) [address], [address] [place] [address] Hemoglobin (Bld) [Mass/Vol] 7.2 g/dL Low 13.0-17.0 [facility] Comment on above: Performed By: #### C BCA, CMP, 1833-, 29386-1, FEPR, 2276-4, 2284-8, 2131-9, TSHR #### [facility] ([id number]) [address], [address] [place] [address] Lymphocytes (Bld) [#/Vol] 0.5 10*3/uL Low 1.0-3.5 [facility] Comment on above: Performed By: #### C BCA, CMP, 1833-07, , FEPR, 2276-4, 2283-8, 2132-03, TSHR #### [facility] ([id number]) [address], [address] [address] Lymphocytes/100 WBC (Bld) 6.8 % Normal [facility] Comment on above: Performed By: #### C BCA, CMP, 1833-07, , FEPR, 6-4, 2283-8, 2132-03, TSHR #### [facility] ([id number]) [address], [address] [address] MCH (RBC) [Entitic mass] 32.0 pg Normal 27-34 [facility] Comment on above: Performed By: #### C BCA, CMP, 1833-07, , FEPR, 2276-4, 2284-8, 9, TSHR #### [facility] ([id number]) [address], [address] [place] [address] MCHC (RBC) [Mass/Vol] 35.0 g/dL Normal 32-36 [facility] Comment on above: Performed By: #### C BCA, CMP, 1833-07, , FEPR, 2276-4, 2283-8, 2132-03, TSHR #### [facility] ([id number]) [address], [address] [place] [address] MCV (RBC) [Entitic vol] 92 fL Normal 80-100 [facility] Comment on above: Performed By: #### C BCA, CMP, 1833-, 20540-4, FEPR, 6-4, 2283-8, 2132-03, TSHR #### [facility] ([id number]) [address], [address] [place] [address] Monocytes (Bld) [#/Vol] 0.8 10*3/uL Normal 0-0.9 [facility] Comment on above: Performed By: #### C BCA, CMP, 1833-, , FEPR, 2275-4, 8, 2132-03, TSHR #### [facility] ([id number]) [address], [address] [place] [address] Monocytes/100 WBC (Bld) 10.6 % Normal [facility] Comment on above: Performed By: #### C BCA, CMP, 1833-, , FEPR, 2275-4, 2283-, 2132-03, TSHR #### [facility] ([id number]) [address], [address] [place] [address] Neutrophils/100 WBC (Bld) 79.5 % Normal [facility] Comment on above: Performed By: #### C BCA, CMP, 1833-, 08174-9, FEPR, 2275-4, 2283-8, 2132-03, TSHR #### [facility] ([id number]) [address], [address] [place] [address] Platelet mean volume (Bld) [Entitic vol] 7.8 fL Normal 7-12 [facility] Comment on above: Performed By: #### C BCA, CMP, 1833-, 63476-3, FEPR, 2276-4, 2284-8, 2131-9, TSHR #### [facility] ([id number]) [address], [address] [place] [address] Platelets (Bld) [#/Vol] 192 10*3/uL Normal 150-450 [facility] Comment on above: Performed By: #### C BCA, CMP, 1833-, 77139-0, FEPR, 2276-4, 2284-8, 9, TSHR #### [facility] ([id number]) [address], [address] [place] [address] RBC COUNT 2.25 X10E12/L Low 4.10-5.70 [facility] Comment on above: Performed By: #### C BCA, CMP, 1833-, 73684-3, FEPR, 2276-4, 2284-8, 2132-03, TSHR #### [facility] ([id number]) [address], [address] [place] [address] WBC (Bld) [#/Vol] 7.8 10*3/uL Normal 4.0-11.0 [facility] Comment on above: Performed By: #### C BCA, CMP, 1833-, 67938-7, FEPR, 2276-4, 2284-8, 2132-03, TSHR #### [facility] ([id number]) [address] [place] [address] COMPREHENSIVE METABOLIC PANE Zoran 06-03-2024 Albumin [Mass/Vol] 2.4 g/dL Low 3.2-5.3 [facility] Comment on above: Performed By: #### C BCA, CMP, 1833-, 37207-2, FEPR, 2276-4, 2284-8, 2131-9, TSHR #### [facility] ([id number]) [address], [address] [place] [address] ALP [Catalytic activity/Vol] 237 U/L High 39-130 [facility] Comment on above: Performed By: #### C BCA, CMP, 1834-1, 16114-6, FEPR, 2276-4, 2284-8, 2131-9, TSHR #### [facility] ([id number]) [address], [address] [place] [address] ALT [Catalytic activity/Vol] 81 U/L High 0-40 [facility] Comment on above: Performed By: #### C BCA, CMP, 1833-, 92235-1, FEPR, 2276-4, 2284-8, 2132-03, TSHR #### [facility] ([id number]) [address], [address] [place] [address] Anion gap [Moles/Vol] 7 mmol/L Normal 5-15 [facility] Comment on above: Performed By: #### C BCA, CMP, 1833-, 17680-1, FEPR, 2276-4, 2284-8, 2132-03, TSHR #### [facility] ([id number]) [address], [address] [place] [address] AST [Catalytic activity/Vol] 99 U/L High 0-41 [facility] Comment on above: Performed By: #### C BCA, CMP, 1833-, 98175-1, FEPR, 2276-4, 2284-8, 9, TSHR #### [facility] ([id number]) [address], [address] [place] [address] Bilirubin [Mass/Vol] 1.5 mg/dL High 0.3-1.2 [facility] Comment on above: Performed By: #### C BCA, CMP, 1833-, 08815-1, FEPR, 2276-4, 2284-8, 9, TSHR #### [facility] ([id number]) [address], [address] [place] [address] Calcium [Mass/Vol] 8.3 mg/dL Low 8.5-10.5 [facility] Comment on above: Performed By: #### C BCA, CMP, 1834-1, 37277-9, FEPR, 2276-4, 2284-8, 2131-9, TSHR #### [facility] ([id number]) [address] [place] [address] Chloride [Moles/Vol] 94 mmol/L Low 98-109 [facility] Comment on above: Performed By: #### C BCA, CMP, 4-1, 70668-1, FEPR, 2276-4, 2284-8, 2132-03, TSHR #### [facility] ([id number]) [address] [place] [address] CO2 [Moles/Vol] 28 mmol/L Normal 22-32 [facility] Comment on above: Performed By: #### C BCA, CMP, 4-1, 68521-4, FEPR, 2276-4, 2284-8, 2132-03, TSHR #### [facility] ([id number]) [address], [address] [place] [address] Creatinine [Mass/Vol] 1.59 mg/dL High 0.60-1.30 [facility] Comment on above: Result Comment: METH OD TRACEABLE TO IDMS STANDARD Performed By: #### C BCA, CMP, 4-1, 60630-9, FEPR, 2276-4, 2284-8, 2131-9, TSHR #### [facility] ([id number]) [address], [address] [place] [address] GFR/1.73 sq M.predicted among non-blacks MDRD (S/P/Bld) [Vol rate/Area] 43 mL/min/{1.73_m2} Low >59 [facility] Comment on above: Result Comment: Reported eGFR is based on the CKD-EPI 2020 equation that does not use a race coefficient. Performed By: #### C BCA, CMP, 1833-, 06245-3, FEPR, 2276-4, 2284-8, 2132-03, TSHR #### [facility] ([id number]) [address], [address] [place] [address] Glucose [Mass/Vol] 97 mg/dL Normal 65-99 [facility] Comment on above: Performed By: #### C BCA, CMP, 1833-, , FEPR, 2276-4, 228-8, 2132-03, TSHR #### [facility] ([id number]) [address], [address] [place] [address] Potassium [Moles/Vol] 4.0 mmol/L Normal 3.5-5.0 [facility] Comment on above: Performed By: #### C BCA, CMP, 1833-07, , FEPR, 2276-4, 228-8, 2132-03, TSHR #### [facility] ([id number]) [address], [address] [place] [address] Protein [Mass/Vol] 5.2 g/dL Low 6.0-8.0 [facility] Comment on above: Performed By: #### C BCA, CMP, 1833-, , FEPR, 2276-4, 2284-8, 2132-03, TSHR #### [facility] ([id number]) [address], [address] [place] [address] Sodium [Moles/Vol] 129 mmol/L Low 134-146 [facility] Comment on above: Performed By: #### C BCA, CMP, 1833-, 95732-6, FEPR, 2276-4, 2284-8, 9, TSHR #### [facility] ([id number]) [address], [address] [place] [address] Urea nitrogen [Mass/Vol] 37 mg/dL High 5-27 [facility] Comment on above: Performed By: #### C BCA, CMP, 1833-, 47247-6, FEPR, 2276-4, 2284-8, 2132-03, TSHR #### [facility] ([id number]) [address], [address] [place] [address] HGB AND HCTon 06-03-2024 Hematocrit (Bld) [Volume fraction] 22.2 % Low 39-49 [facility] Comment on above: Performed By: #### C BCA, CMP, 1833-, 06891-0, FEPR, 2276-4, 2284-8, 2132-03, TSHR #### [facility] ([id number]) [address] [place] [address] Hemoglobin (Bld) [Mass/Vol] 7.7 g/dL Low 13.0-17.0 [facility] Comment on above: Performed By: #### C BCA, CMP, 1833-, , FEPR, 2276-4, 2284-8, 2132-03, TSHR #### [facility] ([id number]) [address], [address] [place] [address] Hematocrit (Bld) [Volume fraction] 22.7 % Low 39-49 [facility] Comment on above: Performed By: #### C BCA, CMP, 1833-, 77730-6, FEPR, 2276-4, 2284-8, 2132-03, TSHR #### [facility] ([id number]) [address], [address] [place] [address] Hemoglobin (Bld) [Mass/Vol] 7.8 g/dL Low 13.0-17.0 [facility] Comment on above: Performed By: #### C BCA, CMP, 1834-1, 33291-7, FEPR, 2276-4, 2284-8, 9, TSHR #### [facility] ([id number]) [address] [facility], [address] [place] [address] IR PERCUTANEOUS BX LIVERon 1 08-03-2023 IR [...] Simmons MD on 06/03/2024 1:22 PM Normal [facility] MAGNESIUMon 06-03-2024 Magnesium [Mass/Vol] 1.6 mg/dL Low 1.8-2.6 [facility] Comment on above: Performed By: #### C JIN, CMP, 1834-1, 12705-7, FEPR, 2276-4, 2284-8, 2131-9, TSHR #### [facility] ([id number]) [address] [facility], [address] [place] [address] PROTIME AND INRon 06-03-2024 INR Coag (PPP) [Relative time] 1.2 {INR} High 0.8-1.1 [facility] Comment on above: Performed By: #### C BCA, CMP, 1834-1, 86651-1, FEPR, 2276-4, 2284-8, 2132-9, TSHR #### [facility] ([id number]) [address] [place] [address], [address] [place] [address] PT Coag (PPP) [Time] 14.3 s High 9.8-13.2 [facility] Comment on above: Performed By: #### C BCA, CMP, 1834-1, 52932-9, FEPR, 2276-4, 2284-8, 2131-9, TSHR #### [facility] ([id number]) [address] [place] [address], [address] [place] [address] Surgical Pathologyon 024 Surgical Pathology Normal [facility] Comment on above: Result Comment: [facility] [address] [place] [address] Surgical Pathology Consultation Patient Name:MYKEL OLIVERA:1940 (Age: 84)Gender:MTaken:4Reported:06/09/2024hysician(s):OLY RODRIGUES N.PJosefina ([phone])Copy To:Bob Simmons M.D. Rec. #:[id number]: #[id number] Final Pathologic Diagnosis Liver, needle core biopsies: [...] with the diagnosis. Report Electronically Signed Out [facility]/06/09/2024Surendra P. Lombardi, M.D. Interpretation performed at [facility], [address], [place] [address], License number: [id number]. Clinical History Bladder cancer non invasive, liver mass. Gross Description Received in formalin labeled JUANC , liver BX are 6 pale pratt to fletcher fragmented portions of needle core biopsy segments, 1 x 0.5 x 0.1 cm in aggregate. The specimen is filtered and submitted entirely in a single cassette. (1, ns, [id number], m5) med/06/03/2024NSK Intraoperative Consultation . Specimen(s) Received Liver core biopsy Fee Codes(s): 1; 91418, 35792, 16871(2), 22872 CBC AND AUTO DIFFon 06-02-20 24 ABSOLUTE BASOPHIL 0.0 X10E9/L Normal 0.0-0.2 [facility] Comment on above: Performed By: #### C BCA, CMP, 1833-, , FEPR, 6-4, 2283-8, 2132-03, TSHR #### [facility] ([id number]) [address], [address] [place] [address] ABSOLUTE NEUTROPHIL 8.1 X10E9/L High 1.5-6.6 [facility] Comment on above: Performed By: #### C BCA, CMP, 1833-, , FEPR, 6-4, 2283-8, 2132-03, TSHR #### [facility] ([id number]) [address] [facility], [address] [place] [address] Basophils/100 WBC (Bld) 0.3 % Normal [facility] Comment on above: Performed By: #### C BCA, CMP, 1833-, 81715-4, FEPR, 2276-4, 2283-8, 9, TSHR #### [facility] ([id number]) [address], [address] [place] [address] Eosinophils (Bld) [#/Vol] 0.2 10*3/uL Normal 0.0-0.4 [facility] Comment on above: Performed By: #### C BCA, CMP, 1833-, , FEPR, 2276-4, 4-8, 2132-03, TSHR #### [facility] ([id number]) [address], [address] [place] [address] Eosinophils/100 WBC (Bld) 1.7 % Normal [facility] Comment on above: Performed By: #### C BCA, CMP, 1833-, , FEPR, 2276-4, 4-8, 2132-03, TSHR #### [facility] ([id number]) [address], [facility] [address] [place] [address] Erythrocyte distribution width (RBC) [Ratio] 15.5 % High 11.5-15.0 [facility] Comment on above: Performed By: #### C BCA, CMP, 1833-07, , FEPR, 6-4, 2283-8, 2132-03, TSHR #### [facility] ([id number]) [address], [address] [place] [address] Hematocrit (Bld) [Volume fraction] 21.2 % Low 39-49 [facility] Comment on above: Performed By: #### C BCA, CMP, 1833-07, , FEPR, 2276-4, 2283-8, 2132-03, TSHR #### [facility] ([id number]) [address], [address] [place] [address] Hemoglobin (Bld) [Mass/Vol] 7.3 g/dL Low 13.0-17.0 [facility] Comment on above: Performed By: #### C BCA, CMP, 1833-, 51863-4, FEPR, 2276-4, 2284-8, 9, TSHR #### [facility] ([id number]) [address], [address] [place] [address] Lymphocytes (Bld) [#/Vol] 0.6 10*3/uL Low 1.0-3.5 [facility] Comment on above: Performed By: #### C BCA, CMP, 1833-, 91240-5, FEPR, 2276-4, 4-8, 9, TSHR #### [facility] ([id number]) [address], [address] [place] [address] Lymphocytes/100 WBC (Bld) 5.8 % Normal [facility] Comment on above: Performed By: #### C BCA, CMP, 1833-07, , FEPR, 2276-4, 2283-8, 2132-03, TSHR #### [facility] ([id number]) [address], [facility] [address] [place] [address] MCH (RBC) [Entitic mass] 31.7 pg Normal 27-34 [facility] Comment on above: Performed By: #### C BCA, CMP, 1833-07, , FEPR, 6-4, 2283-8, 2132-03, TSHR #### [facility] ([id number]) [address], [address] [place] [address] MCHC (RBC) [Mass/Vol] 34.5 g/dL Normal 32-36 [facility] Comment on above: Performed By: #### C BCA, CMP, 1833-07, , FEPR, 2276-4, 2283-8, 2132-03, TSHR #### [facility] ([id number]) [address], [address] [place] [address] MCV (RBC) [Entitic vol] 92 fL Normal 80-100 [facility] Comment on above: Performed By: #### C BCA, CMP, 1833-, 25166-6, FEPR, 2276-4, 4-8, 2132-9, TSHR #### [facility] ([id number]) [address], [address] [place] [address] Monocytes (Bld) [#/Vol] 1.1 10*3/uL High 0-0.9 [facility] Comment on above: Performed By: #### C BCA, CMP, 1833-, 19067-8, FEPR, 2276-4, 2283-8, 2132-03, TSHR #### [facility] ([id number]) [address], [address] [place] [address] Monocytes/100 WBC (Bld) 11.0 % Normal [facility] Comment on above: Performed By: #### C BCA, CMP, 1833-, 49903-6, FEPR, 6-4, 2283-8, 2132-03, TSHR #### [facility] ([id number]) [address], [address] [place] [address] Neutrophils/100 WBC (Bld) 81.2 % Normal [facility] Comment on above: Performed By: #### C BCA, CMP, 1833-, , FEPR, 6-4, 2283-8, 2132-03, TSHR #### [facility] ([id number]) [address], [address] [place] [address] Platelet mean volume (Bld) [Entitic vol] 7.5 fL Normal 7-12 [facility] Comment on above: Performed By: #### C BCA, CMP, 1833-, 24993-4, FEPR, 2276-4, 2283-8, 2132-03, TSHR #### [facility] ([id number]) [address] [place] [address] Platelets (Bld) [#/Vol] 196 10*3/uL Normal 150-450 [facility] Comment on above: Performed By: #### C BCA, CMP, 1834-1, 37916-6, FEPR, 2276-4, 2284-8, 2131-9, TSHR #### [facility] ([id number]) [address], [address] [place] [address] RBC COUNT 2.30 X10E12/L Low 4.10-5.70 [facility] Comment on above: Performed By: #### C BCA, CMP, 1833-1, 23044-7, FEPR, 2276-4, 2284-8, 2131-9, TSHR #### [facility] ([id number]) [address] [place] [address] WBC (Bld) [#/Vol] 10.0 10*3/uL Normal 4.0-11.0 [facility] Comment on above: Performed By: #### C BCA, CMP, 1833-, 81087-2, FEPR, 2276-4, 2283-8, 2132-03, TSHR #### [facility] ([id number]) [address] [place] [address] COMPREHENSIVE METABOLIC PANE Zoran 06-02-2024 Albumin [Mass/Vol] 2.5 g/dL Low 3.2-5.3 [facility] Comment on above: Performed By: #### C BCA, CMP, 1833-, 88051-8, FEPR, 2276-4, 2283-8, 2132-03, TSHR #### [facility] ([id number]) [address] [place] [address] ALP [Catalytic activity/Vol] 261 U/L High 39-130 [facility] Comment on above: Performed By: #### C BCA, CMP, 4-1, 28395-3, FEPR, 2276-4, 2284-8, 2131-9, TSHR #### [facility] ([id number]) [address] [place] [address] ALT [Catalytic activity/Vol] 109 U/L High 0-40 [facility] Comment on above: Performed By: #### C BCA, CMP, 4-1, 35614-8, FEPR, 2276-4, 2284-8, 2131-9, TSHR #### [facility] ([id number]) [address] [place] [address] Anion gap [Moles/Vol] 9 mmol/L Normal 5-15 [facility] Comment on above: Performed By: #### C BCA, CMP, 1833-, 94641-0, FEPR, 2276-4, 2284-8, 2132-03, TSHR #### [facility] ([id number]) [address] [place] [address] AST [Catalytic activity/Vol] 130 U/L High 0-41 [facility] Comment on above: Performed By: #### C BCA, CMP, 1833-, 79032-9, FEPR, 2276-4, 2284-8, 2132-03, TSHR #### [facility] ([id number]) [address] [place] [address] Bilirubin [Mass/Vol] 1.7 mg/dL High 0.3-1.2 [facility] Comment on above: Performed By: #### C BCA, CMP, 1833-, 04948-1, FEPR, 2276-4, 2284-8, 9, TSHR #### [facility] ([id number]) [address] [place] [address] Calcium [Mass/Vol] 8.4 mg/dL Low 8.5-10.5 [facility] Comment on above: Performed By: #### C BCA, CMP, 1833-, 86921-7, FEPR, 2276-4, 2284-8, 2131-9, TSHR #### [facility] ([id number]) [address] [place] [address] Chloride [Moles/Vol] 94 mmol/L Low 98-109 [facility] Comment on above: Performed By: #### C BCA, CMP, 1833-, 56206-6, FEPR, 2276-4, 2284-8, 9, TSHR #### [facility] ([id number]) [address] [place] [address] CO2 [Moles/Vol] 26 mmol/L Normal 22-32 [facility] Comment on above: Performed By: #### C BCA, CMP, 1833-07, , FEPR, 6-4, 2283-8, 2132-03, TSHR #### [facility] ([id number]) [address] [place] [address] Creatinine [Mass/Vol] 1.60 mg/dL High 0.60-1.30 [facility] Comment on above: Result Comment: METH OD TRACEABLE TO IDMS STANDARD Performed By: #### C BCA, CMP, 1833-07, , FEPR, 6-4, 2283-8, 2132-03, TSHR #### [facility] ([id number]) [address] [place] [address] GFR/1.73 sq M.predicted among non-blacks MDRD (S/P/Bld) [Vol rate/Area] 43 mL/min/{1.73_m2} Low >59 [facility] Comment on above: Result Comment: Reported eGFR is based on the CKD-EPI 2020 equation that does not use a race coefficient. Performed By: #### C BCA, CMP, 1833-, , FEPR, 2276-4, 2284-8, 9, TSHR #### [facility] ([id number]) [address] [place] [address] Glucose [Mass/Vol] 104 mg/dL High 65-99 [facility] Comment on above: Performed By: #### C BCA, CMP, 1834-1, 41870-7, FEPR, 2276-4, 2284-8, 9, TSHR #### [facility] ([id number]) [address] [place] [address] Potassium [Moles/Vol] 4.2 mmol/L Normal 3.5-5.0 [facility] Comment on above: Performed By: #### C BCA, CMP, 1833-, 53058-5, FEPR, 2276-4, 2283-8, 2132-03, TSHR #### [facility] ([id number]) [address] [place] [address] Protein [Mass/Vol] 5.5 g/dL Low 6.0-8.0 [facility] Comment on above: Performed By: #### C BCA, CMP, 1833-, 81379-8, FEPR, 2276-4, 2283-8, 2132-03, TSHR #### [facility] ([id number]) [address] [place] [address] Sodium [Moles/Vol] 129 mmol/L Low 134-146 [facility] Comment on above: Performed By: #### C BCA, CMP, 1833-, 01634-5, FEPR, 2276-4, 228-8, 2132-03, TSHR #### [facility] ([id number]) [address] [place] [address] Urea nitrogen [Mass/Vol] 36 mg/dL High 5-27 [facility] Comment on above: Performed By: #### C BCA, CMP, 1833-, 60977-9, FEPR, 2276-4, 2284-8, 9, TSHR #### [facility] ([id number]) [address] [place] [address] HGB AND HCTon 06-02-2024 Hematocrit (Bld) [Volume fraction] 21.0 % Low 39-49 [facility] Comment on above: Performed By: #### C BCA, CMP, 1833-1, 15298-7, FEPR, 2276-4, 2283-8, 2132-03, TSHR #### [facility] ([id number]) [address] [place] [address] Hemoglobin (Bld) [Mass/Vol] 7.2 g/dL Low 13.0-17.0 [facility] Comment on above: Performed By: #### C BCA, CMP, 1833-, 09989-5, FEPR, 2275-4, 2283-8, 2132-03, TSHR #### [facility] ([id number]) [address] [place] [address] MAGNESIUMon 06-02-2024 Magnesium [Mass/Vol] 1.8 mg/dL Normal 1.8-2.6 [facility] Comment on above: Performed By: #### C BCA, CMP, 1833-, 25787-5, FEPR, 6-4, 8, 2132-03, TSHR #### [facility] ([id number]) [address] [place] [address] PROTIME AND INRon 06-02-2024 INR Coag (PPP) [Relative time] 1.3 {INR} High 0.8-1.1 [facility] Comment on above: Performed By: #### C BCA, CMP, 1833-, 99955-0, FEPR, 6-4, 2283-8, 2132-03, TSHR #### [facility] ([id number]) [address] [place] [address] PT Coag (PPP) [Time] 14.8 s High 9.8-13.2 [facility] Comment on above: Performed By: #### C BCA, CMP, 4-1, 44506-8, FEPR, 2276-4, 2284-8, 2131-9, TSHR #### [facility] ([id number]) [address] [place] [address] aPTT Coag (PPP) [Time]on aPTT Coag (Bld) [Time] 33 s Normal 26-37 [facility] Comment on above: Performed By: #### C BCA, CMP, 1833-, 68064-1, FEPR, 2276-4, 2284-8, 2132-03, TSHR #### [facility] ([id number]) [address] [place] [address] aPTT Coag (Bld) [Time] 28 s Normal 26-37 [facility] Comment on above: Performed By: #### C BCA, CMP, 1833-, 81224-0, FEPR, 2276-4, 2284-8, 2132-03, TSHR #### [facility] ([id number]) [address] [place] [address] aPTT Coag (Bld) [Time] 33 s Normal 26-37 [facility] Comment on above: Performed By: #### C BCA, CMP, 1833-, 69107-7, FEPR, 2276-4, 2284-8, 9, TSHR #### [facility] ([id number]) [address] [place] [address] BASIC METABOLIC PANLon 06-01 Anion gap [Moles/Vol] 7 mmol/L Normal 5-15 [facility] Comment on above: Performed By: #### C BCA, CMP, 1833-, 18371-2, FEPR, 2276-4, 2284-8, 2132-9, TSHR #### [facility] ([id number]) [address] [place] [address] Calcium [Mass/Vol] 8.6 mg/dL Normal 8.5-10.5 [facility] Comment on above: Performed By: #### C BCA, CMP, 1833-1, 84786-6, FEPR, 2276-4, 2283-8, 2132-03, TSHR #### [facility] ([id number]) [address] [place] [address] Chloride [Moles/Vol] 94 mmol/L Low 98-109 [facility] Comment on above: Performed By: #### C BCA, CMP, 1833-, 66177-1, FEPR, 2275-4, 8, 2132-03, TSHR #### [facility] ([id number]) [address] [place] [address] CO2 [Moles/Vol] 26 mmol/L Normal 22-32 [facility] Comment on above: Performed By: #### C BCA, CMP, 1833-, , FEPR, 2275-4, 2283-8, 2132-03, TSHR #### [facility] ([id number]) [address] [place] [address] Creatinine [Mass/Vol] 1.65 mg/dL High 0.60-1.30 [facility] Comment on above: Result Comment: METH OD TRACEABLE TO IDMS STANDARD Performed By: #### C BCA, CMP, 1833-, 23335-7, FEPR, 6-4, 2283-8, 2132-03, TSHR #### [facility] ([id number]) [address] [place] [address] GFR/1.73 sq M.predicted among non-blacks MDRD (S/P/Bld) [Vol rate/Area] 41 mL/min/{1.73_m2} Low >59 [facility] Comment on above: Result Comment: Reported eGFR is based on the CKD-EPI 2020 equation that does not use a race coefficient. Performed By: #### C BCA, CMP, 1833-, 51518-7, FEPR, 2276-4, 2284-8, 2132-03, TSHR #### [facility] ([id number]) [address] [place] [address] Glucose [Mass/Vol] 206 mg/dL High 65-99 [facility] Comment on above: Performed By: #### C BCA, CMP, 1833-07, , FEPR, 2276-4, 228-8, 2132-03, TSHR #### [facility] ([id number]) [address] [place] [address] Potassium [Moles/Vol] 4.2 mmol/L Normal 3.5-5.0 [facility] Comment on above: Performed By: #### C BCA, CMP, 1833-07, , FEPR, 2276-4, 2283-8, 2132-03, TSHR #### [facility] ([id number]) [address] [place] [address] Sodium [Moles/Vol] 127 mmol/L Low 134-146 [facility] Comment on above: Performed By: #### C BCA, CMP, 1833-07, , FEPR, 2276-4, 2284-8, 2132-03, TSHR #### [facility] ([id number]) [address] [place] [address] Urea nitrogen [Mass/Vol] 36 mg/dL High 5-27 [facility] Comment on above: Performed By: #### C BCA, CMP, 1833-07, 83467-4, FEPR, 2276-4, 2284-8, 2132-03, TSHR #### [facility] ([id number]) [address] [place] [address] CBC AND AUTO DIFFon 06-01-20 24 ABSOLUTE BASOPHIL 0.0 X10E9/L Normal 0.0-0.2 [facility] Comment on above: Performed By: #### C BCA, CMP, 4-, 64034-1, FEPR, 6-4, 2283-8, 2132-03, TSHR #### [facility] ([id number]) [address] [place] [address] ABSOLUTE NEUTROPHIL 10.4 X10E9/L High 1.5-6.6 [facility] Comment on above: Performed By: #### C BCA, CMP, 1833-, 94610-8, FEPR, 6-4, 2283-8, 2132-03, TSHR #### [facility] ([id number]) [address] [place] [address] Basophils/100 WBC (Bld) 0.1 % Normal [facility] Comment on above: Performed By: #### C BCA, CMP, 1833-, 66777-4, FEPR, 6-4, 2283-8, 2132-03, TSHR #### [facility] ([id number]) [address] [place] [address] Eosinophils (Bld) [#/Vol] 0.1 10*3/uL Normal 0.0-0.4 [facility] Comment on above: Performed By: #### C BCA, CMP, 1833-, 67156-9, FEPR, 2276-4, 2283-8, 2132-03, TSHR #### [facility] ([id number]) [address] [place] [address] Eosinophils/100 WBC (Bld) 1.2 % Normal [facility] Comment on above: Performed By: #### C BCA, CMP, 1833-, 10131-4, FEPR, 2276-4, 2284-8, 2131-9, TSHR #### [facility] ([id number]) [address] [place] [address] Erythrocyte distribution width (RBC) [Ratio] 15.6 % High 11.5-15.0 [facility] Comment on above: Performed By: #### C BCA, CMP, 1833-, 47835-6, FEPR, 2276-4, 2284-8, 9, TSHR #### [facility] ([id number]) [address] [place] [address] Hematocrit (Bld) [Volume fraction] 23.5 % Low 39-49 [facility] Comment on above: Performed By: #### C BCA, CMP, 1833-07, , FEPR, 2276-4, 2284-8, 2132-03, TSHR #### [facility] ([id number]) [address] [place] [address] Hemoglobin (Bld) [Mass/Vol] 8.0 g/dL Low 13.0-17.0 [facility] Comment on above: Performed By: #### C BCA, CMP, 1833-07, , FEPR, 2276-4, 2284-8, 2132-03, TSHR #### [facility] ([id number]) [address] [place] [address] Lymphocytes (Bld) [#/Vol] 0.4 10*3/uL Low 1.0-3.5 [facility] Comment on above: Performed By: #### C BCA, CMP, 1833-, 27732-1, FEPR, 2276-4, 2284-8, 2131-9, TSHR #### [facility] ([id number]) [address] [place] [address] Lymphocytes/100 WBC (Bld) 3.4 % Normal [facility] Comment on above: Performed By: #### C BCA, CMP, 1833-, 80519-6, FEPR, 2276-4, 2283-8, 2132-03, TSHR #### [facility] ([id number]) [address] [place] [address] MCH (RBC) [Entitic mass] 31.3 pg Normal 27-34 [facility] Comment on above: Performed By: #### C BCA, CMP, 1833-, , FEPR, 6-4, 2283-8, 2132-03, TSHR #### [facility] ([id number]) [address] [place] [address] MCHC (RBC) [Mass/Vol] 34.0 g/dL Normal 32-36 [facility] Comment on above: Performed By: #### C BCA, CMP, 1833-07, , FEPR, 6-4, 2283-8, 2132-03, TSHR #### [facility] ([id number]) [address] [place] [address] MCV (RBC) [Entitic vol] 92 fL Normal 80-100 [facility] Comment on above: Performed By: #### C BCA, CMP, 1833-07, , FEPR, 2276-4, 2283-8, 2132-03, TSHR #### [facility] ([id number]) [address] [place] [address] Monocytes (Bld) [#/Vol] 1.3 10*3/uL High 0-0.9 [facility] Comment on above: Performed By: #### C BCA, CMP, 1833-, 87964-4, FEPR, 2276-4, 2283-8, 2132-03, TSHR #### [facility] ([id number]) [address] [place] [address] Monocytes/100 WBC (Bld) 10.6 % Normal [facility] Comment on above: Performed By: #### C BCA, CMP, 1833-, 06924-9, FEPR, 2276-4, 2284-8, 2131-9, TSHR #### [facility] ([id number]) [address] [place] [address] Neutrophils/100 WBC (Bld) 84.7 % Normal [facility] Comment on above: Performed By: #### C BCA, CMP, 1833-, , FEPR, 2276-4, 2284-8, 2132-03, TSHR #### [facility] ([id number]) [address] [place] [address] Platelet mean volume (Bld) [Entitic vol] 7.6 fL Normal 7-12 [facility] Comment on above: Performed By: #### C BCA, CMP, 1833-07, , FEPR, 2276-4, 228-8, 2132-03, TSHR #### [facility] ([id number]) [address] [place] [address] Platelets (Bld) [#/Vol] 219 10*3/uL Normal 150-450 [facility] Comment on above: Performed By: #### C BCA, CMP, 1833-, , FEPR, 2276-4, 2284-8, 2131-9, TSHR #### [facility] ([id number]) [address] [place] [address] RBC COUNT 2.55 X10E12/L Low 4.10-5.70 [facility] Comment on above: Performed By: #### C BCA, CMP, 1833-, 27358-6, FEPR, 2276-4, 2283-8, 9, TSHR #### [facility] ([id number]) [address] [place] [address] WBC (Bld) [#/Vol] 12.3 10*3/uL High 4.0-11.0 [facility] Comment on above: Performed By: #### C BCA, CMP, 1833-, 32848-6, FEPR, 2276-4, 2283-8, 2132-03, TSHR #### [facility] ([id number]) [address] [place] [address] COMPREHENSIVE METABOLIC PANE [facility] 06-01-2024 Albumin [Mass/Vol] 2.7 g/dL Low 3.2-5.3 [facility] Comment on above: Performed By: #### C BCA, CMP, 1833-, , FEPR, 6-4, 2283-8, 2132-03, TSHR #### [facility] ([id number]) [address] [place] [address] ALP [Catalytic activity/Vol] 287 U/L High 39-130 [facility] Comment on above: Performed By: #### C BCA, CMP, 1833-, 50285-9, FEPR, 6-4, 2283-8, 2132-03, TSHR #### [facility] ([id number]) [address] [place] [address] ALT [Catalytic activity/Vol] 135 U/L High 0-40 [facility] Comment on above: Performed By: #### C BCA, CMP, 1833-, 94707-5, FEPR, 2276-4, 2283-8, 9, TSHR #### [facility] ([id number]) [address] [place] [address] Anion gap [Moles/Vol] 9 mmol/L Normal 5-15 [facility] Comment on above: Performed By: #### C BCA, CMP, 1833-1, 12933-5, FEPR, 2276-4, 2284-8, 2131-9, TSHR #### [facility] ([id number]) [address] [place] [address] AST [Catalytic activity/Vol] 177 U/L High 0-41 [facility] Comment on above: Performed By: #### C BCA, CMP, 1833-, 39362-9, FEPR, 2276-4, 2284-8, 2132-03, TSHR #### [facility] ([id number]) [address] [place] [address] Bilirubin [Mass/Vol] 1.9 mg/dL High 0.3-1.2 [facility] Comment on above: Performed By: #### C BCA, CMP, 1833-07, , FEPR, 2276-4, 2284-8, 2132-03, TSHR #### [facility] ([id number]) [address] [place] [address] Calcium [Mass/Vol] 8.8 mg/dL Normal 8.5-10.5 [facility] Comment on above: Performed By: #### C BCA, CMP, 1833-, 38773-7, FEPR, 2276-4, 2284-8, 9, TSHR #### [facility] ([id number]) [address] [place] [address] Chloride [Moles/Vol] 95 mmol/L Low 98-109 [facility] Comment on above: Performed By: #### C BCA, CMP, 1833-, 83380-5, FEPR, 2276-4, 2284-8, 2131-9, TSHR #### [facility] ([id number]) [address] [place] [address] CO2 [Moles/Vol] 25 mmol/L Normal 22-32 [facility] Comment on above: Performed By: #### C BCA, CMP, 1833-, , FEPR, 2276-4, 2283-8, 2132-03, TSHR #### [facility] ([id number]) [address] [place] [address] Creatinine [Mass/Vol] 1.47 mg/dL High 0.60-1.30 [facility] Comment on above: Result Comment: METH OD TRACEABLE TO IDMS STANDARD Performed By: #### C BCA, CMP, 1833-07, , FEPR, 6-4, 2283-8, 2132-03, TSHR #### [facility] ([id number]) [address] [place] [address] GFR/1.73 sq M.predicted among non-blacks MDRD (S/P/Bld) [Vol rate/Area] 47 mL/min/{1.73_m2} Low >59 [facility] Comment on above: Result Comment: Reported eGFR is based on the CKD-EPI 2020 equation that does not use a race coefficient. Performed By: #### C BCA, CMP, 1833-, , FEPR, 6-4, 2283-8, 2132-03, TSHR #### [facility] ([id number]) [address] [place] [address] Glucose [Mass/Vol] 126 mg/dL High 65-99 [facility] Comment on above: Performed By: #### C BCA, CMP, 1833-, , FEPR, 2276-4, 2283-8, 2132-03, TSHR #### [facility] ([id number]) [address] [place] [address] Potassium [Moles/Vol] 4.0 mmol/L Normal 3.5-5.0 [facility] Comment on above: Performed By: #### C BCA, CMP, 1833-, 93680-5, FEPR, 2276-4, 2284-8, 9, TSHR #### [facility] ([id number]) [address] [place] [address] Protein [Mass/Vol] 5.9 g/dL Low 6.0-8.0 [facility] Comment on above: Performed By: #### C BCA, CMP, 1833-, 59928-3, FEPR, 2276-4, 2284-8, 2132-03, TSHR #### [facility] ([id number]) [address] [place] [address] Sodium [Moles/Vol] 129 mmol/L Low 134-146 [facility] Comment on above: Performed By: #### C BCA, CMP, 1833-07, , FEPR, 2276-4, 2284-8, 2132-03, TSHR #### [facility] ([id number]) [address] [place] [address] Urea nitrogen [Mass/Vol] 36 mg/dL High 5-27 [facility] Comment on above: Performed By: #### C BCA, CMP, 1833-07, , FEPR, 2276-4, 2284-8, 2132-03, TSHR #### [facility] ([id number]) [address] [place] [address] HGB AND HCTon 06-01-2024 Hematocrit (Bld) [Volume fraction] 22.8 % Low 39-49 [facility] Comment on above: Performed By: #### C BCA, CMP, 1833-, 02890-7, FEPR, 2276-4, 2284-8, 9, TSHR #### [facility] ([id number]) [address], [address] [place] [address] Hemoglobin (Bld) [Mass/Vol] 7.6 g/dL Low 13.0-17.0 [facility] Comment on above: Performed By: #### C BCA, CMP, 1833-, 07153-6, FEPR, 2276-4, 2284-8, 2132-03, TSHR #### [facility] ([id number]) [address], [address] [place] [address] MAGNESIUMon 06-01-2024 Magnesium [Mass/Vol] 1.8 mg/dL Normal 1.8-2.6 [facility] Comment on above: Performed By: #### C BCA, CMP, 1833-07, , FEPR, 2276-4, 2283-8, 2132-03, TSHR #### [facility] ([id number]) [address], [address] [place] [address] Magnesium Ionized ISE (Bld) [Moles/Vol]on 06-01-2024 Magnesium [Moles/Vol] 0.63 mmol/L Normal 0.45-0.74 [facility] Comment on above: Result Comment: NEW REFERENCE RANGE Performed By: #### C BCA, CMP, 1833-07, , FEPR, 2276-4, 2283-8, 2132-03, TSHR #### [facility] ([id number]) [address], [address] [place] [address] PROTIME AND INRon 06-01-2024 INR Coag (PPP) [Relative time] 1.6 {INR} High 0.8-1.1 [facility] Comment on above: Performed By: #### C BCA, CMP, 1833-, 18079-4, FEPR, 2276-4, 2284-8, 9, TSHR #### [facility] ([id number]) [address], [address] [place] [address] PT Coag (PPP) [Time] 18.1 s High 9.8-13.2 [facility] Comment on above: Performed By: #### C BCA, CMP, 4-1, 84332-5, FEPR, 2276-4, 4-8, 9, TSHR #### [facility] ([id number]) [address], [address] [place] [address] INR Coag (PPP) [Relative time] 1.5 {INR} High 0.8-1.1 [facility] Comment on above: Performed By: #### C BCA, CMP, 1833-, 13063-0, FEPR, 6-4, 2283-8, 2132-03, TSHR #### [facility] ([id number]) [address], [address] [place] [address] PT Coag (PPP) [Time] 17.2 s High 9.8-13.2 [facility] Comment on above: Performed By: #### C BCA, CMP, 1833-, 48875-5, FEPR, 6-4, 2283-8, 2132-03, TSHR #### [facility] ([id number]) [address], [address] [place] [address] aPTT Coag (PPP) [Time]on aPTT Coag (Bld) [Time] 27 s Normal 26-37 [facility] Comment on above: Performed By: #### C BCA, CMP, 1833-, 81991-7, FEPR, 2276-4, 2284-8, 2132-03, TSHR #### [facility] ([id number]) [address], [address] [place] [address] CBC AND AUTO DIFFon 05-31-20 24 ABSOLUTE BASOPHIL 0.0 X10E9/L Normal 0.0-0.2 [facility] Comment on above: Performed By: #### C BCA, CMP, 1833-, , FEPR, 6-4, 2283-8, 2132-03, TSHR #### [facility] ([id number]) [address], [address] [place] [address] ABSOLUTE NEUTROPHIL 8.4 X10E9/L High 1.5-6.6 [facility] Comment on above: Performed By: #### C BCA, CMP, 1833-, , FEPR, 6-4, 2283-8, 2132-03, TSHR #### [facility] ([id number]) [address] [place] [address] Basophils/100 WBC (Bld) 0.1 % Normal [facility] Comment on above: Performed By: #### C BCA, CMP, 1833-07, , FEPR, 2275-4, 2283-8, 2132-03, TSHR #### [facility] ([id number]) [address] [place] [address] Eosinophils (Bld) [#/Vol] 0.1 10*3/uL Normal 0.0-0.4 [facility] Comment on above: Performed By: #### C BCA, CMP, 1833-07, , FEPR, 2275-4, 2283-8, 2132-03, TSHR #### [facility] ([id number]) [address] [place] [address] Eosinophils/100 WBC (Bld) 0.9 % Normal [facility] Comment on above: Performed By: #### C BCA, CMP, 1833-, , FEPR, 6-4, 2283-8, 2132-03, TSHR #### [facility] ([id number]) [address], [address] [place] [address] Erythrocyte distribution width (RBC) [Ratio] 15.4 % High 11.5-15.0 [facility] Comment on above: Performed By: #### C BCA, CMP, 1833-, , FEPR, 2276-4, 2284-8, 2132-03, TSHR #### [facility] ([id number]) [address], [address] [place] [address] Hematocrit (Bld) [Volume fraction] 20.7 % Low 39-49 [facility] Comment on above: Performed By: #### C BCA, CMP, 1833-07, , FEPR, 2276-4, 228-8, 2132-03, TSHR #### [facility] ([id number]) [address], [address] [place] [address] Hemoglobin (Bld) [Mass/Vol] 7.2 g/dL Low 13.0-17.0 [facility] Comment on above: Performed By: #### C BCA, CMP, 1833-07, , FEPR, 2276-4, 2283-8, 2132-03, TSHR #### [facility] ([id number]) [address], [address] [place] [address] Lymphocytes (Bld) [#/Vol] 0.4 10*3/uL Low 1.0-3.5 [facility] Comment on above: Performed By: #### C BCA, CMP, 1833-07, , FEPR, 2276-4, 2284-8, 2132-03, TSHR #### [facility] ([id number]) [address], [facility] [address] [place] [address] Lymphocytes/100 WBC (Bld) 4.1 % Normal [facility] Comment on above: Performed By: #### C BCA, CMP, 1833-, 41248-9, FEPR, 2276-4, 2284-8, 2132-03, TSHR #### [facility] ([id number]) [address], [address] [place] [address] MCH (RBC) [Entitic mass] 31.7 pg Normal 27-34 [facility] Comment on above: Performed By: #### C BCA, CMP, 1833-, 80266-3, FEPR, 2276-4, 4-8, 2132-03, TSHR #### [facility] ([id number]) [address], [address] [place] [address] MCHC (RBC) [Mass/Vol] 34.6 g/dL Normal 32-36 [facility] Comment on above: Performed By: #### C BCA, CMP, 1833-, , FEPR, 6-4, 2283-8, 2132-03, TSHR #### [facility] ([id number]) [address], [address] [place] [address] MCV (RBC) [Entitic vol] 92 fL Normal 80-100 [facility] Comment on above: Performed By: #### C BCA, CMP, 1833-07, , FEPR, 2275-4, 2283-8, 2132-03, TSHR #### [facility] ([id number]) [address], [address] [place] [address] Monocytes (Bld) [#/Vol] 1.1 10*3/uL High 0-0.9 [facility] Comment on above: Performed By: #### C BCA, CMP, 1833-, , FEPR, 6-4, 2283-8, 2132-03, TSHR #### [facility] ([id number]) [address], [address] [place] [address] Monocytes/100 WBC (Bld) 11.1 % Normal [facility] Comment on above: Performed By: #### C BCA, CMP, 1833-07, 22114-6, FEPR, 2276-4, 2284-8, 2131-9, TSHR #### [facility] ([id number]) [address] [address] Neutrophils/100 WBC (Bld) 83.8 % Normal [facility] Comment on above: Performed By: #### C BCA, CMP, 1833-, 67105-0, FEPR, 2276-4, 2284-8, 2131-9, TSHR #### [facility] ([id number]) [address], [address] [address] Platelet mean volume (Bld) [Entitic vol] 7.6 fL Normal 7-12 [facility] Comment on above: Performed By: #### C BCA, CMP, 1833-, 95195-8, FEPR, 2276-4, 2284-8, 2131-, TSHR #### [facility] ([id number]) [address] [address] Platelets (Bld) [#/Vol] 214 10*3/uL Normal 150-450 [facility] Comment on above: Performed By: #### C BCA, CMP, 1833-, 90887-4, FEPR, 2276-4, 2284-8, 2131-9, TSHR #### [facility] ([id number]) [address] [address] RBC COUNT 2.26 X10E12/L Low 4.10-5.70 [facility] Comment on above: Performed By: #### C BCA, CMP, 1833-, 87451-4, FEPR, 2276-4, 2284-8, 2131-9, TSHR #### [facility] ([id number]) [address] [address] [place] [address] WBC (Bld) [#/Vol] 10.0 10*3/uL Normal 4.0-11.0 [facility] Comment on above: Performed By: #### C BCA, CMP, 1834-1, 24924-7, FEPR, 2276-4, 2284-8, 9, TSHR #### [facility] ([id number]) [address], [address] [place] [address] COMPREHENSIVE METABOLIC PANE Zoran 05-31-2024 Albumin [Mass/Vol] 2.5 g/dL Low 3.2-5.3 [facility] Comment on above: Performed By: #### C BCA, CMP, 4-1, 18887-0, FEPR, 2276-4, 2284-8, 2132-03, TSHR #### [facility] ([id number]) [address], [address] [place] [address] ALP [Catalytic activity/Vol] 208 U/L High 39-130 [facility] Comment on above: Performed By: #### C BCA, CMP, 1833-1, 67008-3, FEPR, 2276-4, 2284-8, 2132-03, TSHR #### [facility] ([id number]) [address], [address] [place] [address] ALT [Catalytic activity/Vol] 123 U/L High 0-40 [facility] Comment on above: Performed By: #### C BCA, CMP, 1833-1, 82650-6, FEPR, 2276-4, 2284-8, 9, TSHR #### [facility] ([id number]) [address], [address] [place] [address] Anion gap [Moles/Vol] 7 mmol/L Normal 5-15 [facility] Comment on above: Performed By: #### C BCA, CMP, 1834-1, 58193-8, FEPR, 2276-4, 2284-8, 2131-9, TSHR #### [facility] ([id number]) [address], [address] [place] [address] AST [Catalytic activity/Vol] 149 U/L High 0-41 [facility] Comment on above: Performed By: #### C BCA, CMP, 1833-, 17347-9, FEPR, 2276-4, 2284-8, 2131-9, TSHR #### [facility] ([id number]) [address], [address] [place] [address] Bilirubin [Mass/Vol] 1.6 mg/dL High 0.3-1.2 [facility] Comment on above: Performed By: #### C BCA, CMP, 1833-, , FEPR, 2276-4, 2284-8, 2132-03, TSHR #### [facility] ([id number]) [address], [address] [place] [address] Calcium [Mass/Vol] 8.7 mg/dL Normal 8.5-10.5 [facility] Comment on above: Performed By: #### C BCA, CMP, 1833-07, , FEPR, 2276-4, 2284-8, 2132-03, TSHR #### [facility] ([id number]) [address], [address] [place] [address] Chloride [Moles/Vol] 97 mmol/L Low 98-109 [facility] Comment on above: Performed By: #### C BCA, CMP, 1833-07, , FEPR, 2276-4, 2284-8, 9, TSHR #### [facility] ([id number]) [address], [address] [place] [address] CO2 [Moles/Vol] 27 mmol/L Normal 22-32 [facility] Comment on above: Performed By: #### C BCA, CMP, 1833-, 43897-7, FEPR, 2276-4, 2284-8, 9, TSHR #### [facility] ([id number]) [address], [address] [place] [address] Creatinine [Mass/Vol] 1.49 mg/dL High 0.60-1.30 [facility] Comment on above: Result Comment: METH OD TRACEABLE TO IDMS STANDARD Performed By: #### C BCA, CMP, 1833-1, 44049-7, FEPR, 2276-4, 2284-8, 2132-03, TSHR #### [facility] ([id number]) [address], [address] [place] [address] GFR/1.73 sq M.predicted among non-blacks MDRD (S/P/Bld) [Vol rate/Area] 47 mL/min/{1.73_m2} Low >59 [facility] Comment on above: Result Comment: Reported eGFR is based on the CKD-EPI 2020 equation that does not use a race coefficient. Performed By: #### C BCA, CMP, 1833-07, 00551-9, FEPR, 2276-4, 2284-8, 2132-03, TSHR #### [facility] ([id number]) [address], [address] [place] [address] Glucose [Mass/Vol] 111 mg/dL High 65-99 [facility] Comment on above: Performed By: #### C BCA, CMP, 1833-, 04290-3, FEPR, 2276-4, 2284-8, 2132-03, TSHR #### [facility] ([id number]) [address], [address] [place] [address] Potassium [Moles/Vol] 3.9 mmol/L Normal 3.5-5.0 [facility] Comment on above: Performed By: #### C BCA, CMP, 1833-, 64219-4, FEPR, 2276-4, 2284-8, 9, TSHR #### [facility] ([id number]) [address] [place] [address], [address] [place] [address] Protein [Mass/Vol] 5.4 g/dL Low 6.0-8.0 [facility] Comment on above: Performed By: #### C BCA, CMP, 1834-1, 78613-5, FEPR, 2276-4, 2284-8, 2131-9, TSHR #### [facility] ([id number]) [address] [place] [address], [address] [place] [address] Sodium [Moles/Vol] 131 mmol/L Low 134-146 [facility] Comment on above: Performed By: #### C BCA, CMP, 1834-1, 41157-4, FEPR, 2276-4, 2284-8, 2131-9, TSHR #### [facility] ([id number]) [address] [place] [address] [address] [place] [address] Urea nitrogen [Mass/Vol] 39 mg/dL High 5-27 [facility] Comment on above: Performed By: #### C BCA, CMP, 1834-1, 24251-7, FEPR, 2276-4, 2284-8, 2131-9, TSHR #### [facility] ([id number]) [address] [place] [address], [address] [address] Clinical Pathologyon 024 Clinical Pathology Normal [facility] Comment on above: Result Comment: [facility] [address] [place] [address] Clinical Pathology Report Patient Name:MYKEL OLIVERA:1940 (Age: 84)Gender:MTaken:4Reported:4Physician(s):CHEMO RODRIGUES, N.PJosefina ([phone])Copy To: Rec. 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 Hypoalbuminemia with increase in acute phase reactants. Report Electronically Signed Out 06/01/2024violeta Spain MD [place] [address], License number: [id number]. Clinical History K92.1 SERUM PROTEIN ELECTROPHORESIS SAMPLE NO: [id number] ELECTROPHORETIC FRACTION CONCENTRATIONS (g/dL) PATIENT REFERENCE RANGE [...] IgA : 309 IgM : 145 Free [place]: 9.52 Free Lambda: 9.11 Free [place]/Lambda ratio: 1.05 Specimen(s) Received 1: Serum Protein Electrophoresis 2: Serum IEP Fee Codes(s): 1; 31338-50 2; 47352-35 HGB AND HCTon 05-31-2024 Hematocrit (Bld) [Volume fraction] 23.0 % Low 39-49 [facility] Comment on above: Performed By: #### 1 9123-9 #### [facility] ([id number]) [facility], [address] [place] [address] Hemoglobin (Bld) [Mass/Vol] 7.8 g/dL Low 13.0-17.0 [facility] Comment on above: Performed By: #### 1 9123-9 #### [facility] ([id number]) [facility], [address] [place] [address] Hematocrit (Bld) [Volume fraction] 23.4 % Low 39-49 [facility] Comment on above: Performed By: #### 1 9123-9 #### [facility] ([id number]) [address], [address] [place] [address] Hemoglobin (Bld) [Mass/Vol] 8.0 g/dL Low 13.0-17.0 [facility] Comment on above: Performed By: #### 1 9123-9 #### [facility] ([id number]) [address], [address] [place] [address] Haptoglobin Nephelometry [Ma ss/Vol]on 05-31-2024 HAPTOGLOBIN 251 mg/dL High 32-228 [facility] Comment on above: Performed By: #### 1 9123-9 #### [facility] ([id number]) [address], [address] [place] [address] IMMUNOELECTROPHORESIS FOR TH ERAPY MONITORINGon 05-31-2024 FREE SHEREE/LAMBD RATIO 1.05 Normal 0.26-1.65 [facility] Comment on above: Performed By: #### C BCA, CMP, 1833-, , FEPR, 6-4, 4-8, 2132-03, TSHR #### [facility] ([id number]) [address], [address] [place] [address] FREE KAPPA LT CHAINS 9.52 mg/dL High 0.33-1.94 [facility] Comment on above: Performed By: #### C BCA, CMP, 1833-, , FEPR, 2276-4, 4-8, 9, TSHR #### [facility] ([id number]) [address], [address] [place] [address] FREE LAMBDA LT CHAINS 9.11 mg/dL High 0.57-2.63 [facility] Comment on above: Performed By: #### C BCA, CMP, 1833-, 53216-8, FEPR, 2276-4, 2284-8, 9, TSHR #### [facility] ([id number]) [address], [address] [place] [address] IgA [Mass/Vol] 309 mg/dL Normal 68-378 [facility] Comment on above: Performed By: #### C BCA, CMP, 1834-1, 03056-5, FEPR, 2276-4, 2284-8, 2132-9, TSHR #### [facility] ([id number]) [address], [address] [place] [address] IgG [Mass/Vol] 1041 mg/dL Normal 635-1741 [facility] Comment on above: Performed By: #### C BCA, CMP, 4-, 35377-3, FEPR, 2276-4, 2284-8, 2131-9, TSHR #### [facility] ([id number]) [address], [address] [place] [address] IgM [Mass/Vol] 145 mg/dL Normal 45-281 [facility] Comment on above: Performed By: #### C BCA, CMP, 4-, 49646-4, FEPR, 2276-4, 2284-8, 2131-9, TSHR #### [facility] ([id number]) [address] [address] [place] [address] IMMUNE PROFILE INTERP SEE SEPARATE REPORT Normal [facility] Comment on above: Performed By: #### C BCA, CMP, 4-, 28512-5, FEPR, 2276-4, 2284-8, 2131-9, TSHR #### [facility] ([id number]) [address], [address] [place] [address] LDH [Catalytic activity/Vol] on 05-31-2024 LDH 291 U/L High 100-235 [facility] Comment on above: Performed By: #### 1 9123-9 #### [facility] ([id number]) [address], [address] [place] [address] MAGNESIUMon 11-04-2024 Magnesium [Mass/Vol] 2.0 mg/dL Normal 1.8-2.6 [facility] Comment on above: Performed By: #### C JIN, CMP, 1833-, 06697-5, FEPR, 2276-4, 2283-8, 2132-03, TSHR #### [facility] ([id number]) [address], [address] [place] [address] Osmolality (U) [Osmolality]o n 05-31-2024 URINE OSMOLALITY 372 mOsm/kg H2 Normal 300-1300 [facility] Comment on above: Performed By: #### 1 9 #### [facility] ([id number]) [address], [address] [place] [address] PROTIME AND INRon 05-31-2024 INR Coag (PPP) [Relative time] 1.2 {INR} High 0.8-1.1 [facility] Comment on above: Performed By: #### C JIN, CMP, 1833-07, , FEPR, 6-4, 2283-8, 2132-03, TSHR #### [facility] ([id number]) [address], [address] [place] [address] PT Coag (PPP) [Time] 14.3 s High 9.8-13.2 [facility] Comment on above: Performed By: #### C JIN, CMP, 1833-07, , FEPR, 6-4, 2283-8, 2132-03, TSHR #### [facility] ([id number]) [address], [address] [place] [address] Reticulocytes/100 RBC (Bld)o n 05-31-2024 RETICULOCYTE COUNT 3.7 % High 0.4-2.2 [facility] Comment on above: Performed By: #### 1 9123-03 #### [facility] ([id number]) [address], [address] [place] [address] SERUM PROTEIN ELECTROPHORESI Son 05-31-2024 Albumin [Mass/Vol] 2.1 g/dL Low 3.4-5.3 [facility] Comment on above: Performed By: #### C BCA, CMP, 4-1, 21846-9, FEPR, 2276-4, 2284-8, 2131-9, TSHR #### [facility] ([id number]) [address], [address] [place] [address] ALPHA 1 GLOBULIN 0.6 g/dL High 0.1-0.4 [facility] Comment on above: Performed By: #### C BCA, CMP, 1833-, 30245-4, FEPR, 2276-4, 4-8, 2132-03, TSHR #### [facility] ([id number]) [address], [address] [place] [address] ALPHA 2 GLOBULIN 0.8 g/dL Normal 0.4-1.1 [facility] Comment on above: Performed By: #### C BCA, CMP, 1833-, , FEPR, 2276-4, 2283-8, 2132-03, TSHR #### [facility] ([id number]) [address], [address] [place] [address] BETA GLOBULIN 0.8 g/dL Normal 0.5-1.2 [facility] Comment on above: Performed By: #### C BCA, CMP, 1833-, 24511-2, FEPR, 2276-4, 2284-8, 9, TSHR #### [facility] ([id number]) [address], [address] [place] [address] GAMMA GLOBULIN 0.9 g/dL Normal 0.5-1.6 [facility] Comment on above: Performed By: #### C BCA, CMP, 1833-, 71011-8, FEPR, 2276-4, 2284-8, 2131-9, TSHR #### [facility] ([id number]) [address], [address] [place] [address] PROT. ELECTROPHORESIS INTERP SEE SEPARATE REPORT Normal [facility] Comment on above: Performed By: #### C BCA, CMP, 4-1, 21247-2, FEPR, 2276-4, 2284-8, 9, TSHR #### [facility] ([id number]) [address], [address] [place] [address] Protein [Mass/Vol] 5.2 g/dL Low 6.0-8.0 [facility] Comment on above: Performed By: #### C BCA, CMP, 4-1, 37909-2, FEPR, 2276-4, 2284-8, 2131-9, TSHR #### [facility] ([id number]) [address], [address] [place] [address] SODIUMon 05-31-2024 Sodium [Moles/Vol] 128 mmol/L Low 134-146 [facility] Comment on above: Performed By: #### C BCA, CMP, 1833-, 08607-9, FEPR, 2276-4, 2284-8, 2131-9, TSHR #### [facility] ([id number]) [address], [address] [place] [address] Sodium [Moles/Vol] 132 mmol/L Low 134-146 [facility] Comment on above: Performed By: #### 1 9123-9 #### [facility] ([id number]) [address], [address] [place] [address] Sodium [Moles/Vol] 135 mmol/L Normal 134-146 [facility] Comment on above: Performed By: #### 1 9123-9 #### [facility] ([id number]) [address] [place] [address] Sodium [Moles/Vol] 134 mmol/L Normal 134-146 [facility] Comment on above: Performed By: #### 1 9123-9 #### [facility] ([id number]) [address], [address] [place] [address] Sodium [Moles/Vol] 133 mmol/L Low 134-146 [facility] Comment on above: Performed By: #### C BCA, CMP, 1833-07, , FEPR, 2275-4, 2283-8, 2132-03, TSHR #### [facility] ([id number]) [address] [place] [address] Sodium [Moles/Vol] 129 mmol/L Low 134-146 [facility] Comment on above: Performed By: #### C BCA, CMP, 1833-07, , FEPR, 2275-4, 2284-02, 2132-03, TSHR #### [facility] ([id number]) [address] [place] [address] URINE SODIUM,RANDOMon 2023 Sodium (U) [Moles/Vol] 48 mmol/L Normal [facility] Comment on above: Performed By: #### 1 [address] #### [facility] ([id number]) [address], [address] [place] [address] CBC AND AUTO DIFFon 05-30-20 24 ABSOLUTE BASOPHIL 0.0 X10E9/L Normal 0.0-0.2 [facility] Comment on above: Performed By: #### C BCA, CMP, 1833-07, , FEPR, 2275-4, 2283-8, 2132-03, TSHR #### [facility] ([id number]) [address], [address] [place] [address] ABSOLUTE NEUTROPHIL 8.7 X10E9/L High 1.5-6.6 [facility] Comment on above: Performed By: #### C BCA, CMP, 1833-, 02953-7, FEPR, 2276-4, 4-8, 2132-03, TSHR #### [facility] ([id number]) [address], [address] [place] [address] Basophils/100 WBC (Bld) 0.1 % Normal [facility] Comment on above: Performed By: #### C BCA, CMP, 1833-, , FEPR, 2276-4, 2284-8, 2132-03, TSHR #### [facility] ([id number]) [address], [address] [place] [address] Eosinophils (Bld) [#/Vol] 0.1 10*3/uL Normal 0.0-0.4 [facility] Comment on above: Performed By: #### C BCA, CMP, 1833-07, , FEPR, 6-4, 2283-8, 2132-03, TSHR #### [facility] ([id number]) [address], [address] [place] [address] Eosinophils/100 WBC (Bld) 0.6 % Normal [facility] Comment on above: Performed By: #### C BCA, CMP, 1833-07, , FEPR, 6-4, 2283-8, 2132-03, TSHR #### [facility] ([id number]) [address], [address] [place] [address] Erythrocyte distribution width (RBC) [Ratio] 15.4 % High 11.5-15.0 [facility] Comment on above: Performed By: #### C BCA, CMP, 1833-, 90185-4, FEPR, 2276-4, 2284-8, 2132-03, TSHR #### [facility] ([id number]) [address] [address] [place] [address] Hematocrit (Bld) [Volume fraction] 21.0 % Low 39-49 [facility] Comment on above: Performed By: #### C BCA, CMP, 1833-, 72203-5, FEPR, 2276-4, 2284-8, 2132-03, TSHR #### [facility] ([id number]) [address] [address] [place] [address] Hemoglobin (Bld) [Mass/Vol] 7.2 g/dL Low 13.0-17.0 [facility] Comment on above: Performed By: #### C BCA, CMP, 1833-07, , FEPR, 2276-4, 2283-8, 2132-03, TSHR #### [facility] ([id number]) [address] [address] Lymphocytes (Bld) [#/Vol] 0.4 10*3/uL Low 1.0-3.5 [facility] Comment on above: Performed By: #### C BCA, CMP, 1833-07, , FEPR, 6-4, 2283-8, 2132-03, TSHR #### [facility] ([id number]) [address] [address] Lymphocytes/100 WBC (Bld) 4.2 % Normal [facility] Comment on above: Performed By: #### C BCA, CMP, 1833-07, , FEPR, 6-4, 2283-8, 2132-03, TSHR #### [facility] ([id number]) [address] [address] MCH (RBC) [Entitic mass] 31.3 pg Normal 27-34 [facility] Comment on above: Performed By: #### C BCA, CMP, 1833-07, , FEPR, 2276-4, 2283-8, 2132-03, TSHR #### [facility] ([id number]) [address], [address] [place] [address] MCHC (RBC) [Mass/Vol] 34.3 g/dL Normal 32-36 [facility] Comment on above: Performed By: #### C BCA, CMP, 1833-, 73270-5, FEPR, 6-4, 2283-8, 2132-03, TSHR #### [facility] ([id number]) [address], [address] [place] [address] MCV (RBC) [Entitic vol] 91 fL Normal 80-100 [facility] Comment on above: Performed By: #### C BCA, CMP, 1833-, 58058-7, FEPR, 2275-4, 2283-8, 2132-03, TSHR #### [facility] ([id number]) [address], [address] [place] [address] Monocytes (Bld) [#/Vol] 1.3 10*3/uL High 0-0.9 [facility] Comment on above: Performed By: #### C BCA, CMP, 1833-, 77465-7, FEPR, 2275-4, 2283-8, 2132-03, TSHR #### [facility] ([id number]) [address], [address] [place] [address] Monocytes/100 WBC (Bld) 12.0 % Normal [facility] Comment on above: Performed By: #### C BCA, CMP, 4-, 38351-5, FEPR, 6-4, 2283-8, 2132-03, TSHR #### [facility] ([id number]) [address], [address] [place] [address] Neutrophils/100 WBC (Bld) 83.1 % Normal [facility] Comment on above: Performed By: #### C BCA, CMP, 1833-, 50967-0, FEPR, 2276-4, 2284-8, 2131-9, TSHR #### [facility] ([id number]) [address], [address] [place] [address] Platelet mean volume (Bld) [Entitic vol] 7.7 fL Normal 7-12 [facility] Comment on above: Performed By: #### C BCA, CMP, 1833-, 68034-1, FEPR, 2276-4, 2284-8, 2131-9, TSHR #### [facility] ([id number]) [address] [address] Platelets (Bld) [#/Vol] 218 10*3/uL Normal 150-450 [facility] Comment on above: Performed By: #### C BCA, CMP, 1833-, 08897-6, FEPR, 2276-4, 2284-8, 2131-9, TSHR #### [facility] ([id number]) [address] [place] [address] RBC COUNT 2.31 X10E12/L Low 4.10-5.70 [facility] Comment on above: Performed By: #### C BCA, CMP, 1833-, 47863-0, FEPR, 2276-4, 2284-8, 2131-9, TSHR #### [facility] ([id number]) [address], [address] [place] [address] WBC (Bld) [#/Vol] 10.5 10*3/uL Normal 4.0-11.0 [facility] Comment on above: Performed By: #### C BCA, CMP, 1833-, 93314-9, FEPR, 2276-4, 2284-8, 2-9, TSHR #### [facility] ([id number]) [address], [address] [place] [address] COMPREHENSIVE METABOLIC PANE [facility] 05-30-2024 Albumin [Mass/Vol] 2.6 g/dL Low 3.2-5.3 [facility] Comment on above: Performed By: #### C BCA, CMP, 1834-1, 16510-8, FEPR, 2276-4, 2284-8, 2131-9, TSHR #### [facility] ([id number]) [address] [place] [address] ALP [Catalytic activity/Vol] 211 U/L High 39-130 [facility] Comment on above: Performed By: #### C BCA, CMP, 1833-, 52368-2, FEPR, 2276-4, 2284-8, 2131-9, TSHR #### [facility] ([id number]) [address] [place] [address] ALT [Catalytic activity/Vol] 135 U/L High 0-40 [facility] Comment on above: Performed By: #### C BCA, CMP, 1833-, 20402-4, FEPR, 2276-4, 2284-8, 2131-9, TSHR #### [facility] ([id number]) [address] [place] [address] Anion gap [Moles/Vol] 8 mmol/L Normal 5-15 [facility] Comment on above: Performed By: #### C BCA, CMP, 183-1, 93205-9, FEPR, 2276-4, 2284-8, 2131-9, TSHR #### [facility] ([id number]) [address] [address] [place] [address] AST [Catalytic activity/Vol] 173 U/L High 0-41 [facility] Comment on above: Performed By: #### C BCA, CMP, 183-1, 26036-9, FEPR, 2276-4, 2284-8, 2131-9, TSHR #### [facility] ([id number]) [address], [address] [place] [address] Bilirubin [Mass/Vol] 1.6 mg/dL High 0.3-1.2 [facility] Comment on above: Performed By: #### C BCA, CMP, 1833-1, 95656-3, FEPR, 2276-4, 2284-8, 2131-9, TSHR #### [facility] ([id number]) [address], [address] [place] [address] Calcium [Mass/Vol] 8.6 mg/dL Normal 8.5-10.5 [facility] Comment on above: Performed By: #### C BCA, CMP, 1833-, 28997-5, FEPR, 2276-4, 2284-8, 2131-9, TSHR #### [facility] ([id number]) [address], [address] [place] [address] Chloride [Moles/Vol] 93 mmol/L Low 98-109 [facility] Comment on above: Performed By: #### C BCA, CMP, 1833-07, , FEPR, 2276-4, 2284-8, 2131-9, TSHR #### [facility] ([id number]) [address], [address] [place] [address] CO2 [Moles/Vol] 27 mmol/L Normal 22-32 [facility] Comment on above: Performed By: #### C BCA, CMP, 1833-, 43053-2, FEPR, 2276-4, 2284-8, 2131-9, TSHR #### [facility] ([id number]) [address], [address] [place] [address] Creatinine [Mass/Vol] 1.61 mg/dL High 0.60-1.30 [facility] Comment on above: Result Comment: METH OD TRACEABLE TO IDMS STANDARD Performed By: #### C BCA, CMP, 1833-, 55111-9, FEPR, 2276-4, 2284-8, 9, TSHR #### [facility] ([id number]) [address], [address] [address] GFR/1.73 sq M.predicted among non-blacks MDRD (S/P/Bld) [Vol rate/Area] 42 mL/min/{1.73_m2} Low >59 [facility] Comment on above: Result Comment: Reported eGFR is based on the CKD-EPI 2020 equation that does not use a race coefficient. Performed By: #### C BCA, CMP, 1833-07, , FEPR, 2276-4, 228-8, 2132-03, TSHR #### [facility] ([id number]) [address], [address] [address] Glucose [Mass/Vol] 119 mg/dL High 65-99 [facility] Comment on above: Performed By: #### C BCA, CMP, 1833-07, , FEPR, 2276-4, 228-8, 2132-03, TSHR #### [facility] ([id number]) [address], [address] [address] Potassium [Moles/Vol] 4.0 mmol/L Normal 3.5-5.0 [facility] Comment on above: Performed By: #### C BCA, CMP, 1833-07, 89436-8, FEPR, 2276-4, 2284-8, 9, TSHR #### [facility] ([id number]) [address] [address] Protein [Mass/Vol] 5.6 g/dL Low 6.0-8.0 [facility] Comment on above: Performed By: #### C BCA, CMP, 1833-, 17521-0, FEPR, 2276-4, 2284-8, 9, TSHR #### [facility] ([id number]) [address], [address] [place] [address] Sodium [Moles/Vol] 128 mmol/L Low 134-146 [facility] Comment on above: Performed By: #### C BCA, CMP, 1833-, 53090-9, FEPR, 2276-4, 4-8, 2132-03, TSHR #### [facility] ([id number]) [address], [address] [place] [address] Urea nitrogen [Mass/Vol] 45 mg/dL High 5-27 [facility] Comment on above: Performed By: #### C BCA, CMP, 1833-, , FEPR, 6-4, 2283-8, 2132-03, TSHR #### [facility] ([id number]) [address], [address] [place] [address] Glucose Glucometer (BldC) [M ass/Vol]on 05-30-2024 Glucose [Mass/Vol] 147 mg/dL High 65-99 [facility] HGB AND HCTon 05-30-2024 Hematocrit (Bld) [Volume fraction] 23.3 % Low 39-49 [facility] Comment on above: Performed By: #### C BCA, CMP, 1833-, , FEPR, 6-4, 2283-8, 2132-03, TSHR #### [facility] ([id number]) [address], [address] [place] [address] Hemoglobin (Bld) [Mass/Vol] 8.1 g/dL Low 13.0-17.0 [facility] Comment on above: Performed By: #### C BCA, CMP, 1833-, , FEPR, 2276-4, 2283-8, 2132-03, TSHR #### [facility] ([id number]) [address], [address] [place] [address] MAGNESIUMon 05-30-2024 Magnesium [Mass/Vol] 2.1 mg/dL Normal 1.8-2.6 [facility] Comment on above: Performed By: #### C BCA, CMP, 1833-1, 33651-0, FEPR, 2276-4, 2284-8, 2132-03, TSHR #### [facility] ([id number]) [address], [address] [place] [address] Magnesium [Mass/Vol] 1.7 mg/dL Low 1.8-2.6 [facility] Comment on above: Performed By: #### C BCA, CMP, 1833-, , FEPR, 6-4, 2283-8, 2132-03, TSHR #### [facility] ([id number]) [address], [address] [place] [address] Osmolality (U) [Osmolality]o n 05-30-2024 URINE OSMOLALITY 559 mOsm/kg H2 Normal 300-1300 [facility] Comment on above: Performed By: #### C BCA, CMP, 1833-07, , FEPR, 6-4, 2283-8, 2132-03, TSHR #### [facility] ([id number]) [address], [address] [place] [address] PHOSPHORUSon 05-30-2024 Phosphate [Mass/Vol] 2.6 mg/dL Normal 2.4-4.9 [facility] Comment on above: Performed By: #### C BCA, CMP, 1833-07, , FEPR, 6-4, 2283-8, 2132-03, TSHR #### [facility] ([id number]) [address], [address] [place] [address] PROTIME AND INRon 05-30-2024 INR Coag (PPP) [Relative time] 1.3 {INR} High 0.8-1.1 [facility] Comment on above: Performed By: #### C BCA, CMP, 1833-, 56020-2, FEPR, 2276-4, 2284-8, 2132-03, TSHR #### [facility] ([id number]) [address], [address] [place] [address] PT Coag (PPP) [Time] 14.5 s High 9.8-13.2 [facility] Comment on above: Performed By: #### C BCA, CMP, 1833-, 44566-4, FEPR, 2276-4, 228-8, 2132-03, TSHR #### [facility] ([id number]) [address], [address] [place] [address] SODIUMon 05-30-2024 Sodium [Moles/Vol] 126 mmol/L Low 134-146 [facility] Comment on above: Performed By: #### C BCA, CMP, 1833-07, , FEPR, 2276-4, 228-8, 2132-03, TSHR #### [facility] ([id number]) [address], [address] [place] [address] Sodium [Moles/Vol] 125 mmol/L Low 134-146 [facility] Comment on above: Performed By: #### C BCA, CMP, 1833-07, , FEPR, 6-4, 2283-8, 2132-03, TSHR #### [facility] ([id number]) [address], [address] [place] [address] Sodium [Moles/Vol] 127 mmol/L Low 134-146 [facility] Comment on above: Performed By: #### C BCA, CMP, 1833-, 17983-1, FEPR, 2276-4, 2284-8, 2132-03, TSHR #### [facility] ([id number]) [address], [address] [place] [address] URINE SODIUM,RANDOMon 2023 Sodium (U) [Moles/Vol] 31 mmol/L Normal Pr [facility] Comment on above: Performed By: #### C BCA, CMP, 1833-07, , FEPR, 6-4, 2283-8, 2132-03, TSHR #### [facility] ([id number]) [address], [address] [place] [address] CBC AND AUTO DIFFon 05-29-20 24 ABSOLUTE BASOPHIL 0.0 X10E9/L Normal 0.0-0.2 [facility] Comment on above: Performed By: #### C BCA, CMP, 1833-07, , FEPR, 2275-4, 2283-8, 2132-03, TSHR #### [facility] ([id number]) [address], [address] [place] [address] ABSOLUTE NEUTROPHIL 7.9 X10E9/L High 1.5-6.6 [facility] Comment on above: Performed By: #### C BCA, CMP, 1833-07, , FEPR, 2275-4, 2284-02, 2132-03, TSHR #### [facility] ([id number]) [address], [address] [place] [address] Basophils/100 WBC (Bld) 0.1 % Normal [facility] Comment on above: Performed By: #### C BCA, CMP, 1833-07, , FEPR, 2275-4, 2283-8, 2132-03, TSHR #### [facility] ([id number]) [address], [address] [place] [address] Eosinophils (Bld) [#/Vol] 0.0 10*3/uL Normal 0.0-0.4 [facility] Comment on above: Performed By: #### C BCA, CMP, 1833-07, 59686-5, FEPR, 2276-4, 2284-8, 9, TSHR #### [facility] ([id number]) [address], [address] [place] [address] Eosinophils/100 WBC (Bld) 0.3 % Normal [facility] Comment on above: Performed By: #### C BCA, CMP, 1833-, 71793-2, FEPR, 2276-4, 2284-8, 2132-03, TSHR #### [facility] ([id number]) [address], [facility] [address] [place] [address] Erythrocyte distribution width (RBC) [Ratio] 15.2 % High 11.5-15.0 [facility] Comment on above: Performed By: #### C BCA, CMP, 1833-, , FEPR, 6-4, 2283-8, 2132-03, TSHR #### [facility] ([id number]) [address] [address] Hematocrit (Bld) [Volume fraction] 21.1 % Low 39-49 [facility] Comment on above: Performed By: #### C BCA, CMP, 1833-, , FEPR, 2276-4, 2283-8, 2132-03, TSHR #### [facility] ([id number]) [address] [address] [place] [address] Hemoglobin (Bld) [Mass/Vol] 7.4 g/dL Low 13.0-17.0 [facility] Comment on above: Performed By: #### C BCA, CMP, 1833-, 59333-1, FEPR, 2276-4, 228-8, 2132-03, TSHR #### [facility] ([id number]) [address] [address] [place] [address] Lymphocytes (Bld) [#/Vol] 0.4 10*3/uL Low 1.0-3.5 [facility] Comment on above: Performed By: #### C BCA, CMP, 1833-07, , FEPR, 6-4, 2283-8, 2132-03, TSHR #### [facility] ([id number]) [address], [address] [place] [address] Lymphocytes/100 WBC (Bld) 3.7 % Normal [facility] Comment on above: Performed By: #### C BCA, CMP, 1833-07, , FEPR, 2275-4, 2283-8, 2132-03, TSHR #### [facility] ([id number]) [address], [address] [place] [address] MCH (RBC) [Entitic mass] 31.8 pg Normal 27-34 [facility] Comment on above: Performed By: #### C BCA, CMP, 1833-07, , FEPR, 2275-4, 2284-02, 2132-03, TSHR #### [facility] ([id number]) [address], [address] [place] [address] MCHC (RBC) [Mass/Vol] 35.0 g/dL Normal 32-36 [facility] Comment on above: Performed By: #### C BCA, CMP, 1833-07, , FEPR, 2275-4, 2284-02, 2132-03, TSHR #### [facility] ([id number]) [address], [address] [place] [address] MCV (RBC) [Entitic vol] 91 fL Normal 80-100 [facility] Comment on above: Performed By: #### C BCA, CMP, 1833-, , FEPR, 6-4, 2283-8, 2132-03, TSHR #### [facility] ([id number]) [address], [address] [place] [address] Monocytes (Bld) [#/Vol] 1.2 10*3/uL High 0-0.9 [facility] Comment on above: Performed By: #### C BCA, CMP, 1834-1, 41772-2, FEPR, 2276-4, 2284-8, 2131-9, TSHR #### [facility] ([id number]) [address], [address] [place] [address] Monocytes/100 WBC (Bld) 12.5 % Normal [facility] Comment on above: Performed By: #### C BCA, CMP, 1833-, 36287-4, FEPR, 2276-4, 2284-8, 2131-, TSHR #### [facility] ([id number]) [address], [address] [place] [address] Neutrophils/100 WBC (Bld) 83.4 % Normal [facility] Comment on above: Performed By: #### C BCA, CMP, 1833-, 77646-2, FEPR, 2276-4, 2284-8, 2131-, TSHR #### [facility] ([id number]) [address], [address] [place] [address] Platelet mean volume (Bld) [Entitic vol] 7.7 fL Normal 7-12 [facility] Comment on above: Performed By: #### C BCA, CMP, 1833-, 38101-8, FEPR, 2276-4, 2284-8, 2131-9, TSHR #### [facility] ([id number]) [address], [address] [place] [address] Platelets (Bld) [#/Vol] 220 10*3/uL Normal 150-450 [facility] Comment on above: Performed By: #### C BCA, CMP, 1833-, 37762-1, FEPR, 2276-4, 2284-8, 2131-9, TSHR #### [facility] ([id number]) [address], [address] [place] [address] RBC COUNT 2.33 X10E12/L Low 4.10-5.70 [facility] Comment on above: Performed By: #### C BCA, CMP, 4-1, 19328-0, FEPR, 2276-4, 2284-8, 2131-9, TSHR #### [facility] ([id number]) [address], [address] [place] [address] WBC (Bld) [#/Vol] 9.5 10*3/uL Normal 4.0-11.0 [facility] Comment on above: Performed By: #### C BCA, CMP, 1833-1, 07910-1, FEPR, 2276-4, 2283-8, 2132-03, TSHR #### [facility] ([id number]) [address] [place] [address] COMPREHENSIVE METABOLIC PANE [facility] 05-29-2024 Albumin [Mass/Vol] 2.8 g/dL Low 3.2-5.3 [facility] Comment on above: Performed By: #### C BCA, CMP, 1833-1, 45072-7, FEPR, 2276-4, 2283-8, 2132-03, TSHR #### [facility] ([id number]) [address], [address] [place] [address] ALP [Catalytic activity/Vol] 209 U/L High 39-130 [facility] Comment on above: Performed By: #### C BCA, CMP, 1833-1, 28110-1, FEPR, 2276-4, 2284-8, 2131-, TSHR #### [facility] ([id number]) [address], [address] [place] [address] ALT [Catalytic activity/Vol] 150 U/L High 0-40 [facility] Comment on above: Performed By: #### C BCA, CMP, 1834-1, 73546-1, FEPR, 2276-4, 2284-8, 9, TSHR #### [facility] ([id number]) [address], [address] [place] [address] Anion gap [Moles/Vol] 11 mmol/L Normal 5-15 [facility] Comment on above: Performed By: #### C BCA, CMP, 4-1, 77697-0, FEPR, 2276-4, 2284-8, 2132-03, TSHR #### [facility] ([id number]) [address], [address] [place] [address] AST [Catalytic activity/Vol] 221 U/L High 0-41 [facility] Comment on above: Performed By: #### C BCA, CMP, 1833-, 68148-7, FEPR, 6-4, 2283-8, 2132-03, TSHR #### [facility] ([id number]) [address], [address] [place] [address] Bilirubin [Mass/Vol] 1.7 mg/dL High 0.3-1.2 [facility] Comment on above: Performed By: #### C BCA, CMP, 4-1, 01178-0, FEPR, 2276-4, 2284-8, 2132-03, TSHR #### [facility] ([id number]) [address], [address] [place] [address] Calcium [Mass/Vol] 8.7 mg/dL Normal 8.5-10.5 [facility] Comment on above: Performed By: #### C BCA, CMP, 1833-1, 25364-8, FEPR, 2276-4, 2284-8, 9, TSHR #### [facility] ([id number]) [address], [address] [place] [address] Chloride [Moles/Vol] 92 mmol/L Low 98-109 [facility] Comment on above: Performed By: #### C BCA, CMP, 1833-, 36068-1, FEPR, 2276-4, 2283-8, 2132-03, TSHR #### [facility] ([id number]) [address], [address] [place] [address] CO2 [Moles/Vol] 24 mmol/L Normal 22-32 [facility] Comment on above: Performed By: #### C BCA, CMP, 1833-07, , FEPR, 6-4, 2283-8, 2132-03, TSHR #### [facility] ([id number]) [address] [facility], [address] [place] [address] Creatinine [Mass/Vol] 1.69 mg/dL High 0.60-1.30 [facility] Comment on above: Result Comment: METH OD TRACEABLE TO IDMS STANDARD Performed By: #### C BCA, CMP, 1833-07, , FEPR, 6-4, 2283-8, 2132-03, TSHR #### [facility] ([id number]) [address], [address] [place] [address] GFR/1.73 sq M.predicted among non-blacks MDRD (S/P/Bld) [Vol rate/Area] 40 mL/min/{1.73_m2} Low >59 [facility] Comment on above: Result Comment: Reported eGFR is based on the CKD-EPI 2020 equation that does not use a race coefficient. Performed By: #### C BCA, CMP, 1833-1, 08416-6, FEPR, 2276-4, 2283-8, 2132-03, TSHR #### [facility] ([id number]) [address], [address] [place] [address] Glucose [Mass/Vol] 130 mg/dL High 65-99 [facility] Comment on above: Performed By: #### C BCA, CMP, 1833-07, 79376-1, FEPR, 2276-4, 2284-8, 9, TSHR #### [facility] ([id number]) [address], [address] [place] [address] Potassium [Moles/Vol] 4.0 mmol/L Normal 3.5-5.0 [facility] Comment on above: Performed By: #### C BCA, CMP, 1833-, 47810-7, FEPR, 2276-4, 2284-8, 9, TSHR #### [facility] ([id number]) [address], [address] [place] [address] Protein [Mass/Vol] 5.6 g/dL Low 6.0-8.0 [facility] Comment on above: Performed By: #### C BCA, CMP, 1833-, , FEPR, 2276-4, 228-8, 2132-03, TSHR #### [facility] ([id number]) [address], [address] [place] [address] Sodium [Moles/Vol] 127 mmol/L Low 134-146 [facility] Comment on above: Performed By: #### C BCA, CMP, 1833-, 30960-6, FEPR, 2276-4, 2284-8, 9, TSHR #### [facility] ([id number]) [address], [address] [place] [address] Urea nitrogen [Mass/Vol] 51 mg/dL High 5-27 [facility] Comment on above: Performed By: #### C BCA, CMP, 1833-, 05467-9, FEPR, 2276-4, 2284-8, 9, TSHR #### [facility] ([id number]) [address], [address] [place] [address] HGB AND HCTon 05-29-2024 Hematocrit (Bld) [Volume fraction] 21.1 % Low 39-49 [facility] Comment on above: Performed By: #### C BCA, CMP, 1833-, 49586-3, FEPR, 2276-4, 2284-8, 2132-03, TSHR #### [facility] ([id number]) [address], [address] [place] [address] Hemoglobin (Bld) [Mass/Vol] 7.3 g/dL Low 13.0-17.0 [facility] Comment on above: Performed By: #### C BCA, CMP, 1833-07, , FEPR, 2276-4, 2284-8, 2132-03, TSHR #### [facility] ([id number]) [address], [address] [place] [address] Hematocrit (Bld) [Volume fraction] 21.6 % Low 39-49 [facility] Comment on above: Performed By: #### C BCA, CMP, 1833-07, , FEPR, 2276-4, 228-8, 2132-03, TSHR #### [facility] ([id number]) [address], [address] [place] [address] Hemoglobin (Bld) [Mass/Vol] 7.5 g/dL Low 13.0-17.0 [facility] Comment on above: Performed By: #### C BCA, CMP, 1833-07, 69981-8, FEPR, 2276-4, 2284-8, 2132-03, TSHR #### [facility] ([id number]) [address] [place] [address] MAGNESIUMon 05-29-2024 Magnesium [Mass/Vol] 1.9 mg/dL Normal 1.8-2.6 [facility] Comment on above: Performed By: #### C BCA, CMP, 1833-, 19240-7, FEPR, 2276-4, 2284-8, 2132-9, TSHR #### [facility] ([id number]) [address] [place] [address] MR ABDOMEN W WO CONTon 05-29 MR [...] Noriega MD on 05/29/2024 9:32 PM Normal [facility] Osmolality (U) [Osmolality]o n 05-29-2024 URINE OSMOLALITY 375 mOsm/kg H2 Normal 300-1300 [facility] Comment on above: Performed By: #### C BCA, CMP, 1833-, , FEPR, 2276-4, 2284-8, 2132-03, TSHR #### [facility] ([id number]) [address] [place] [address] Osmolality [Osmolality]on OSMOLALITY 275 mOsm/kg H2 Low 280-300 [facility] Comment on above: Performed By: #### C BCA, CMP, 1833-07, , FEPR, 2276-4, 228-8, 2132-03, TSHR #### [facility] ([id number]) [address] [place] [address] PROTIME AND INRon 05-29-2024 INR Coag (PPP) [Relative time] 1.2 {INR} High 0.8-1.1 [facility] Comment on above: Performed By: #### C BCA, CMP, 1833-07, , FEPR, 2276-4, 2284-8, 2132-03, TSHR #### [facility] ([id number]) [address] [place] [address] PT Coag (PPP) [Time] 14.3 s High 9.8-13.2 [facility] Comment on above: Performed By: #### C BCA, CMP, 1833-07, 46838-7, FEPR, 2276-4, 2284-8, 2132-03, TSHR #### [facility] ([id number]) [address] [place] [address] SODIUMon 05-29-2024 Sodium [Moles/Vol] 127 mmol/L Low 134-146 [facility] Comment on above: Performed By: #### C BCA, CMP, 1833-, , FEPR, 6-4, 8, 2132-03, TSHR #### [facility] ([id number]) [address] [place] [address] Sodium [Moles/Vol] 126 mmol/L Low 134-146 [facility] Comment on above: Performed By: #### C BCA, CMP, 1833-07, , FEPR, 2275-4, 8, 2132-03, TSHR #### [facility] ([id number]) [address] [place] [address] Sodium [Moles/Vol] 126 mmol/L Low 134-146 [facility] Comment on above: Performed By: #### C BCA, CMP, 1833-07, , FEPR, 2275-4, 2284-02, 2132-03, TSHR #### [facility] ([id number]) [address], [address] [place] [address] Sodium [Moles/Vol] 125 mmol/L Low 134-146 [facility] Comment on above: Performed By: #### C BCA, CMP, 1833-07, , FEPR, 2275-4, 8, 2132-03, TSHR #### [facility] ([id number]) [address], [address] [place] [address] Sodium [Moles/Vol] 126 mmol/L Low 134-146 [facility] Comment on above: Performed By: #### C BCA, CMP, 1833-07, 11146-3, FEPR, 2276-4, 2284-8, 9, TSHR #### [facility] ([id number]) [address], [address] [place] [address] URINE SODIUM,RANDOMon 2023 Sodium (U) [Moles/Vol] 88 mmol/L Normal Pr [facility] Comment on above: Performed By: #### C BCA, CMP, 1833-, 26804-5, FEPR, 2276-4, 2284-8, 2132-03, TSHR #### [facility] ([id number]) [address], [address] [place] [address] CBC AND AUTO DIFFon 05-28-20 24 ABSOLUTE BASOPHIL 0.0 X10E9/L Normal 0.0-0.2 [facility] Comment on above: Performed By: #### C BCA, CMP, 1833-07, , FEPR, 6-4, 2283-8, 2132-03, TSHR #### [facility] ([id number]) [address], [address] [place] [address] ABSOLUTE NEUTROPHIL 8.2 X10E9/L High 1.5-6.6 [facility] Comment on above: Performed By: #### C BCA, CMP, 1833-, , FEPR, 6-4, 2283-8, 2132-03, TSHR #### [facility] ([id number]) [address], [address] [place] [address] Basophils/100 WBC (Bld) 0.2 % Normal [facility] Comment on above: Performed By: #### C BCA, CMP, 1833-, 97165-7, FEPR, 2276-4, 2284-8, 9, TSHR #### [facility] ([id number]) [address], [address] [place] [address] Eosinophils (Bld) [#/Vol] 0.0 10*3/uL Normal 0.0-0.4 [facility] Comment on above: Performed By: #### C BCA, CMP, 1833-, 30292-3, FEPR, 2276-4, 2284-8, 2132-03, TSHR #### [facility] ([id number]) [address], [address] [place] [address] Eosinophils/100 WBC (Bld) 0.2 % Normal [facility] Comment on above: Performed By: #### C BCA, CMP, 1833-07, , FEPR, 6-4, 2283-8, 2132-03, TSHR #### [facility] ([id number]) [address] [address] [place] [address] Erythrocyte distribution width (RBC) [Ratio] 14.9 % Normal 11.5-15.0 [facility] Comment on above: Performed By: #### C BCA, CMP, 1833-07, , FEPR, 6-4, 2283-8, 2132-03, TSHR #### [facility] ([id number]) [address] [facility] [address] [place] [address] Hematocrit (Bld) [Volume fraction] 21.1 % Low 39-49 [facility] Comment on above: Performed By: #### C BCA, CMP, 1833-07, , FEPR, 2276-4, 228-8, 2132-03, TSHR #### [facility] ([id number]) [address] [address] [place] [address] Hemoglobin (Bld) [Mass/Vol] 7.6 g/dL Low 13.0-17.0 [facility] Comment on above: Performed By: #### C BCA, CMP, 1833-, 27905-9, FEPR, 2276-4, 2284-8, 2132-03, TSHR #### [facility] ([id number]) [address] [place] [address] Lymphocytes (Bld) [#/Vol] 0.3 10*3/uL Low 1.0-3.5 [facility] Comment on above: Performed By: #### C BCA, CMP, 1833-07, , FEPR, 2275-4, 8, 2132-03, TSHR #### [facility] ([id number]) [address], [address] [place] [address] Lymphocytes/100 WBC (Bld) 3.1 % Normal [facility] Comment on above: Performed By: #### C BCA, CMP, 1833-07, , FEPR, 2275-4, 2284-02, 2132-03, TSHR #### [facility] ([id number]) [address], [address] [place] [address] MCH (RBC) [Entitic mass] 32.5 pg Normal 27-34 [facility] Comment on above: Performed By: #### C BCA, CMP, 1833-07, , FEPR, 2275-, 2284-02, 2132-03, TSHR #### [facility] ([id number]) [address], [address] [place] [address] MCHC (RBC) [Mass/Vol] 36.0 g/dL Normal 32-36 [facility] Comment on above: Performed By: #### C BCA, CMP, 1833-07, , FEPR, 2275-4, 2283-8, 2132-03, TSHR #### [facility] ([id number]) [address], [address] [place] [address] MCV (RBC) [Entitic vol] 90 fL Normal 80-100 [facility] Comment on above: Performed By: #### C BCA, CMP, 1833-07, 11661-8, FEPR, 2276-4, 2284-8, 2131-9, TSHR #### [facility] ([id number]) [address], [address] [place] [address] Monocytes (Bld) [#/Vol] 1.1 10*3/uL High 0-0.9 [facility] Comment on above: Performed By: #### C BCA, CMP, 1833-, 75265-8, FEPR, 2276-4, 2284-8, 2131-9, TSHR #### [facility] ([id number]) [address], [address] [place] [address] Monocytes/100 WBC (Bld) 11.8 % Normal [facility] Comment on above: Performed By: #### C BCA, CMP, 1833-, 23317-8, FEPR, 2276-4, 2284-8, 2132-03, TSHR #### [facility] ([id number]) [address], [address] [place] [address] Neutrophils/100 WBC (Bld) 84.7 % Normal [facility] Comment on above: Performed By: #### C BCA, CMP, 1833-, 17134-6, FEPR, 2276-4, 2284-8, 2131-9, TSHR #### [facility] ([id number]) [address] [place] [address] Platelet mean volume (Bld) [Entitic vol] 7.6 fL Normal 7-12 [facility] Comment on above: Performed By: #### C BCA, CMP, 1833-, 60142-9, FEPR, 2276-4, 2284-8, 2131-9, TSHR #### [facility] ([id number]) [address], [address] [place] [address] Platelets (Bld) [#/Vol] 206 10*3/uL Normal 150-450 [facility] Comment on above: Performed By: #### C BCA, CMP, 4-1, 28276-9, FEPR, 2276-4, 2284-8, 2131-9, TSHR #### [facility] ([id number]) [address] [place] [address] RBC COUNT 2.34 X10E12/L Low 4.10-5.70 [facility] Comment on above: Performed By: #### C BCA, CMP, 1833-, 26552-6, FEPR, 2276-4, 2284-8, 2132-03, TSHR #### [facility] ([id number]) [address], [address] [place] [address] WBC (Bld) [#/Vol] 9.7 10*3/uL Normal 4.0-11.0 [facility] Comment on above: Performed By: #### C BCA, CMP, 1833-, 93202-0, FEPR, 2276-4, 4-8, 2132-03, TSHR #### [facility] ([id number]) [address] [place] [address] COMPREHENSIVE METABOLIC PANE [facility] 05-28-2024 Albumin [Mass/Vol] 2.8 g/dL Low 3.2-5.3 [facility] Comment on above: Performed By: #### C BCA, CMP, 1833-, 32020-8, FEPR, 2276-4, 2284-8, 2132-03, TSHR #### [facility] ([id number]) [address], [address] [place] [address] ALP [Catalytic activity/Vol] 210 U/L High 39-130 [facility] Comment on above: Performed By: #### C BCA, CMP, 1833-, 85239-8, FEPR, 2276-4, 2284-8, 2131-9, TSHR #### [facility] ([id number]) [address], [address] [place] [address] ALT [Catalytic activity/Vol] 131 U/L High 0-40 [facility] Comment on above: Performed By: #### C BCA, CMP, 1834-1, 86355-7, FEPR, 2276-4, 2284-8, 2131-9, TSHR #### [facility] ([id number]) [address] [place] [address] Anion gap [Moles/Vol] 12 mmol/L Normal 5-15 [facility] Comment on above: Performed By: #### C BCA, CMP, 1833-, 62424-6, FEPR, 2276-4, 2284-8, 2131-9, TSHR #### [facility] ([id number]) [address], [address] [place] [address] AST [Catalytic activity/Vol] 211 U/L High 0-41 [facility] Comment on above: Performed By: #### C BCA, CMP, 1833-, 19333-4, FEPR, 2276-4, 2284-8, 9, TSHR #### [facility] ([id number]) [address], [address] [place] [address] Bilirubin [Mass/Vol] 2.0 mg/dL High 0.3-1.2 [facility] Comment on above: Performed By: #### C BCA, CMP, 1833-, 29517-3, FEPR, 2276-4, 2284-8, 2131-9, TSHR #### [facility] ([id number]) [address] [place] [address] Calcium [Mass/Vol] 9.0 mg/dL Normal 8.5-10.5 [facility] Comment on above: Performed By: #### C BCA, CMP, 1833-, 45624-1, FEPR, 2276-4, 2284-8, 9, TSHR #### [facility] ([id number]) [address], [address] [place] [address] Chloride [Moles/Vol] 93 mmol/L Low 98-109 [facility] Comment on above: Performed By: #### C BCA, CMP, 4-1, 73396-7, FEPR, 2276-4, 2284-8, 2132-03, TSHR #### [facility] ([id number]) [address] [place] [address] CO2 [Moles/Vol] 21 mmol/L Low 22-32 [facility] Comment on above: Performed By: #### C BCA, CMP, 1833-, 38551-5, FEPR, 6-4, 2283-8, 2132-03, TSHR #### [facility] ([id number]) [address], [address] [place] [address] Creatinine [Mass/Vol] 1.81 mg/dL High 0.60-1.30 [facility] Comment on above: Result Comment: METH OD TRACEABLE TO IDMS STANDARD Performed By: #### C BCA, CMP, 1833-, 14222-2, FEPR, 6-4, 2283-8, 2132-03, TSHR #### [facility] ([id number]) [address] [place] [address] GFR/1.73 sq M.predicted among non-blacks MDRD (S/P/Bld) [Vol rate/Area] 37 mL/min/{1.73_m2} Low >59 [facility] Comment on above: Result Comment: Reported eGFR is based on the CKD-EPI 2020 equation that does not use a race coefficient. Performed By: #### C BCA, CMP, 1833-, 04314-5, FEPR, 2276-4, 2284-8, 9, TSHR #### [facility] ([id number]) [address] [place] [address] Glucose [Mass/Vol] 127 mg/dL High 65-99 [facility] Comment on above: Performed By: #### C BCA, CMP, 1833-, 55437-8, FEPR, 2276-4, 2284-8, 2132-03, TSHR #### [facility] ([id number]) [address], [address] [place] [address] Potassium [Moles/Vol] 3.9 mmol/L Normal 3.5-5.0 [facility] Comment on above: Performed By: #### C BCA, CMP, 1833-, , FEPR, 2276-4, 2283-8, 2132-03, TSHR #### [facility] ([id number]) [address] [place] [address] Protein [Mass/Vol] 5.8 g/dL Low 6.0-8.0 [facility] Comment on above: Performed By: #### C BCA, CMP, 1833-07, , FEPR, 2276-4, 2283-8, 2132-03, TSHR #### [facility] ([id number]) [address], [address] [place] [address] Sodium [Moles/Vol] 126 mmol/L Low 134-146 [facility] Comment on above: Performed By: #### C BCA, CMP, 1833-, , FEPR, 2276-4, 2284-8, 2132-03, TSHR #### [facility] ([id number]) [address], [address] [place] [address] Urea nitrogen [Mass/Vol] 44 mg/dL High 5-27 [facility] Comment on above: Performed By: #### C BCA, CMP, 1833-, 51192-9, FEPR, 2276-4, 2284-8, 2132-03, TSHR #### [facility] ([id number]) [address] [place] [address] FL SWALLOW MOTILITY FUNCTION on 05-28-2024 FL [...] report for dietary recommendations. Approved by Resident: Juan Bonilla DO on 05/28/2024 4:26 PM IJose D MD have personally reviewed the image(s) and agree with and/or edited the report Finalized by Jose D Santiago MD on 05/28/2024 4:35 PM Normal [facility] HGB AND HCTon 05-28-2024 Hematocrit (Bld) [Volume fraction] 22.3 % Low 39-49 [facility] Comment on above: Performed By: #### C BCA, CMP, 1833-, 75695-7, FEPR, 2275-4, 2284-02, 2132-03, TSHR #### [facility] ([id number]) [address] [place] [address] Hemoglobin (Bld) [Mass/Vol] 7.7 g/dL Low 13.0-17.0 [facility] Comment on above: Performed By: #### C BCA, CMP, 1833-, 94891-4, FEPR, 2275-4, 2284-02, 2132-03, TSHR #### [facility] ([id number]) [address] [place] [address] MAGNESIUMon 05-28-2024 Magnesium [Mass/Vol] 1.7 mg/dL Low 1.8-2.6 [facility] Comment on above: Performed By: #### C JIN, CMP, 1833-, , FEPR, 6-4, 2283-8, 2132-03, TSHR #### [facility] ([id number]) [address] [place] [address] Osmolality [Osmolality]on OSMOLALITY 273 mOsm/kg H2 Low 280-300 [facility] Comment on above: Performed By: #### C BCA, CMP, 1833-07, , FEPR, 6-4, 2283-8, 2132-03, TSHR #### [facility] ([id number]) [address] [place] [address] PROTIME AND INRon 05-28-2024 INR Coag (PPP) [Relative time] 1.3 {INR} High 0.8-1.1 [facility] Comment on above: Performed By: #### C JIN, [facility], 1833-07, , FEPR, 2275-4, 2284-02, 2132-03, TSHR #### [facility] ([id number]) [address] [place] [address] PT Coag (PPP) [Time] 14.8 s High 9.8-13.2 [facility] Comment on above: Performed By: #### C BCA, CMP, 1833-07, , FEPR, 2275-4, 8, 2132-03, TSHR #### [facility] ([id number]) [address] [place] [address] SODIUMon 05-28-2024 Sodium [Moles/Vol] 127 mmol/L Low 134-146 [facility] Comment on above: Performed By: #### C BCA, CMP, 1833-07, , FEPR, 6-4, 2283-8, 2132-03, TSHR #### [facility] ([id number]) [address] [place] [address] Sodium [Moles/Vol] 126 mmol/L Low 134-146 [facility] Comment on above: Performed By: #### C BCA, CMP, 4-1, 69540-4, FEPR, 2276-4, 2284-8, 9, TSHR #### [facility] ([id number]) [address] [place] [address] Sodium [Moles/Vol] 127 mmol/L Low 134-146 [facility] Comment on above: Performed By: #### C BCA, CMP, 4-, 59122-3, FEPR, 2276-4, 2284-8, 9, TSHR #### [facility] ([id number]) [address] [place] [address] Sodium [Moles/Vol] 124 mmol/L Low 134-146 [facility] Comment on above: Performed By: #### C BCA, CMP, 1833-, , FEPR, 2276-4, 2283-8, 2132-03, TSHR #### [facility] ([id number]) [address], [address] [place] [address] Zinc [Mass/Vol]on 05-28-2024 Zinc, S 45 mcg/dL Low 60-106 [facility] Comment on above: Result Comment: NOTE ADDITIONAL INFORMATION This test was developed and its performance characteristics determined by [facility] in a manner consistent with CLIA requirements. This test has not been cleared or approved by the U.S. Food and Drug Administration. Test Performed by: [facility] [address] [place], [place] [id number] [facility] [employer] Laboratory Technician: Terri Barahona Ph.D.; CLIA# [id number] CBC AND AUTO DIFFon 05-27-20 ABSOLUTE BASOPHIL 0.0 X10E9/L Normal 0.0-0.2 [facility] Comment on above: Performed By: #### C BCA, CMP, 1833-, 78942-9, FEPR, 2276-4, 2284-8, 2131-9, TSHR #### [facility] ([id number]) [address] [place] [address] ABSOLUTE NEUTROPHIL 8.7 X10E9/L High 1.5-6.6 [facility] Comment on above: Performed By: #### C BCA, CMP, 1833-07, , FEPR, 2276-4, 2283-8, 2132-03, TSHR #### [facility] ([id number]) [address] [place] [address] Basophils/100 WBC (Bld) 0.1 % Normal [facility] Comment on above: Performed By: #### C BCA, CMP, 1833-07, , FEPR, 2276-4, 2283-8, 2132-03, TSHR #### [facility] ([id number]) [address] [place] [address] Eosinophils (Bld) [#/Vol] 0.0 10*3/uL Normal 0.0-0.4 [facility] Comment on above: Performed By: #### C BCA, CMP, 1833-07, , FEPR, 2276-4, 2284-8, 9, TSHR #### [facility] ([id number]) [address] [place] [address] Eosinophils/100 WBC (Bld) 0.1 % Normal [facility] Comment on above: Performed By: #### C BCA, CMP, 1833-, 78107-3, FEPR, 2276-4, 2284-8, 2132-9, TSHR #### [facility] ([id number]) [address] [place] [address] Erythrocyte distribution width (RBC) [Ratio] 14.7 % Normal 11.5-15.0 [facility] Comment on above: Performed By: #### C BCA, CMP, 1833-, 21157-4, FEPR, 6-4, 2283-8, 2132-03, TSHR #### [facility] ([id number]) [address] [place] [address] Hematocrit (Bld) [Volume fraction] 17.4 % Low 39-49 [facility] Comment on above: Performed By: #### C BCA, CMP, 1833-, , FEPR, 2275-4, 8, 2132-03, TSHR #### [facility] ([id number]) [address] [place] [address] Hemoglobin (Bld) [Mass/Vol] 6.1 g/dL Critically low 13.0-17.0 [facility] Comment on above: Performed By: #### C BCA, CMP, 1833-07, , FEPR, 6-4, 2283-8, 2132-03, TSHR #### [facility] ([id number]) [address] [place] [address] Lymphocytes (Bld) [#/Vol] 0.3 10*3/uL Low 1.0-3.5 [facility] Comment on above: Performed By: #### C BCA, CMP, 1833-, , FEPR, 6-4, 2283-8, 2132-03, TSHR #### [facility] ([id number]) [address] [place] [address] Lymphocytes/100 WBC (Bld) 3.2 % Normal [facility] Comment on above: Performed By: #### C BCA, CMP, 1833-, , FEPR, 2276-4, 2283-8, 2132-03, TSHR #### [facility] ([id number]) [address] [place] [address] MCH (RBC) [Entitic mass] 31.6 pg Normal 27-34 [facility] Comment on above: Performed By: #### C BCA, CMP, 1833-, , FEPR, 2276-4, 2283-8, 2132-03, TSHR #### [facility] ([id number]) [address] [address] [place] [address] MCHC (RBC) [Mass/Vol] 35.3 g/dL Normal 32-36 [facility] Comment on above: Performed By: #### C BCA, CMP, 1833-07, , FEPR, 6-4, 2283-8, 2132-03, TSHR #### [facility] ([id number]) [address] [place] [address] MCV (RBC) [Entitic vol] 90 fL Normal 80-100 [facility] Comment on above: Performed By: #### C BCA, CMP, 1833-07, , FEPR, 6-4, 2283-8, 2132-03, TSHR #### [facility] ([id number]) [address], [facility] [address] [place] [address] Monocytes (Bld) [#/Vol] 1.3 10*3/uL High 0-0.9 [facility] Comment on above: Performed By: #### C BCA, CMP, 1833-, , FEPR, 2276-4, 4-8, 2131-9, TSHR #### [facility] ([id number]) [address] [place] [address] Monocytes/100 WBC (Bld) 12.2 % Normal [facility] Comment on above: Performed By: #### C BCA, CMP, 4-1, 87791-3, FEPR, 2276-4, 2284-8, 2131-9, TSHR #### [facility] ([id number]) [address] [place] [address] Neutrophils/100 WBC (Bld) 84.4 % Normal [facility] Comment on above: Performed By: #### C BCA, CMP, 1833-, 02609-9, FEPR, 2276-4, 2284-8, 2131-9, TSHR #### [facility] ([id number]) [address] [place] [address] Platelet mean volume (Bld) [Entitic vol] 8.1 fL Normal 7-12 [facility] Comment on above: Performed By: #### C BCA, CMP, 1833-, 55036-6, FEPR, 2276-4, 2284-8, 2131-9, TSHR #### [facility] ([id number]) [address], [facility] [address] [place] [address] Platelets (Bld) [#/Vol] 211 10*3/uL Normal 150-450 [facility] Comment on above: Performed By: #### C BCA, CMP, 1833-, 11333-8, FEPR, 2276-4, 2284-8, 2131-9, TSHR #### [facility] ([id number]) [address] [place] [address] RBC COUNT 1.94 X10E12/L Low 4.10-5.70 [facility] Comment on above: Performed By: #### C BCA, CMP, 1833-, 49243-3, FEPR, 2276-4, 2284-8, 2131-9, TSHR #### [facility] ([id number]) [address] [place] [address] WBC (Bld) [#/Vol] 10.4 10*3/uL Normal 4.0-11.0 [facility] Comment on above: Performed By: #### C BCA, CMP, 1834-1, 85451-3, FEPR, 2276-4, 2284-8, 2131-9, TSHR #### [facility] ([id number]) [address] [place] [address] COMPREHENSIVE METABOLIC PANE [facility] 05-27-2024 Albumin [Mass/Vol] 2.7 g/dL Low 3.2-5.3 [facility] Comment on above: Performed By: #### C BCA, CMP, 1833-, 02770-8, FEPR, 2276-4, 2284-8, 2132-03, TSHR #### [facility] ([id number]) [address] [place] [address] ALP [Catalytic activity/Vol] 194 U/L High 39-130 [facility] Comment on above: Performed By: #### C BCA, CMP, 1833-, , FEPR, 2276-4, 2284-8, 2132-03, TSHR #### [facility] ([id number]) [address] [place] [address] ALT [Catalytic activity/Vol] 68 U/L High 0-40 [facility] Comment on above: Performed By: #### C BCA, CMP, 1834-1, 05717-4, FEPR, 2276-4, 2284-8, 2132-03, TSHR #### [facility] ([id number]) [address] [place] [address] Anion gap [Moles/Vol] 12 mmol/L Normal 5-15 [facility] Comment on above: Performed By: #### C BCA, CMP, 1833-, 19520-7, FEPR, 2276-4, 2284-8, 9, TSHR #### [facility] ([id number]) [address] [place] [address] AST [Catalytic activity/Vol] 130 U/L High 0-41 [facility] Comment on above: Performed By: #### C BCA, CMP, 1833-, , FEPR, 2276-4, 2284-8, 9, TSHR #### [facility] ([id number]) [address] [place] [address] Bilirubin [Mass/Vol] 1.1 mg/dL Normal 0.3-1.2 [facility] Comment on above: Performed By: #### C BCA, CMP, 1833-07, , FEPR, 6-4, 2283-8, 2132-03, TSHR #### [facility] ([id number]) [address] [place] [address] Calcium [Mass/Vol] 8.5 mg/dL Normal 8.5-10.5 [facility] Comment on above: Performed By: #### C BCA, CMP, 1833-07, , FEPR, 6-4, 2283-8, 2132-03, TSHR #### [facility] ([id number]) [address] [place] [address] Chloride [Moles/Vol] 96 mmol/L Low 98-109 [facility] Comment on above: Performed By: #### C BCA, CMP, 1833-, , FEPR, 2276-4, 2284-8, 9, TSHR #### [facility] ([id number]) [address] [place] [address] CO2 [Moles/Vol] 16 mmol/L Low 22-32 [facility] Comment on above: Performed By: #### C BCA, CMP, 1833-07, , FEPR, 2276-4, 2283-8, 2132-03, TSHR #### [facility] ([id number]) [address] [place] [address] Creatinine [Mass/Vol] 2.07 mg/dL High 0.60-1.30 [facility] Comment on above: Result Comment: METH OD TRACEABLE TO IDMS STANDARD Performed By: #### C BCA, CMP, 1833-07, , FEPR, 6-4, 2283-8, 2132-03, TSHR #### [facility] ([id number]) [address] [place] [address] GFR/1.73 sq M.predicted among non-blacks MDRD (S/P/Bld) [Vol rate/Area] 31 mL/min/{1.73_m2} Low >59 [facility] Comment on above: Result Comment: Reported eGFR is based on the CKD-EPI 2020 equation that does not use a race coefficient. Performed By: #### C BCA, CMP, 1833-07, , FEPR, 6-4, 8, 2132-03, TSHR #### [facility] ([id number]) [address] [place] [address] Glucose [Mass/Vol] 128 mg/dL High 65-99 [facility] Comment on above: Performed By: #### C BCA, CMP, 1833-07, , FEPR, 2276-4, 228-8, 2132-03, TSHR #### [facility] ([id number]) [address] [place] [address] Potassium [Moles/Vol] 4.6 mmol/L Normal 3.5-5.0 [facility] Comment on above: Performed By: #### C BCA, CMP, 1833-07, 83982-2, FEPR, 2276-4, 2284-8, 2131-9, TSHR #### [facility] ([id number]) [address] [place] [address] Protein [Mass/Vol] 5.4 g/dL Low 6.0-8.0 [facility] Comment on above: Performed By: #### C BCA, CMP, 4-1, 32600-0, FEPR, 2276-4, 2284-8, 2131-9, TSHR #### [facility] ([id number]) [address] [place] [address] Sodium [Moles/Vol] 124 mmol/L Low 134-146 [facility] Comment on above: Performed By: #### C BCA, CMP, 1833-, 29951-1, FEPR, 2276-4, 2284-8, 9, TSHR #### [facility] ([id number]) [address] [place] [address] Urea nitrogen [Mass/Vol] 48 mg/dL High 5-27 [facility] Comment on above: Performed By: #### C BCA, CMP, 1833-, 59355-4, FEPR, 2276-4, 2284-8, 2131-9, TSHR #### [facility] ([id number]) [address], [address] [place] [address] Cancer Ag 19-9 Qnon 05-27-20 24 CA 19 9 6.6 U/mL Normal 0.0-35.0 [facility] Comment on above: Result Comment: The method used for this test is Janae Zaire DXI chemiluminescent immunoassay. Values obtained by different assay methods cannot be used interchangeably. Performed By: #### C BCA, CMP, 1834-1, 66637-2, FEPR, 2276-4, 2284-8, 2-9, TSHR #### [facility] ([id number]) [address] [place] [address], [facility] [address] [place] [address] Carcinoembryonic Ag [Mass/Vo l]on 05-27-2024 CEA 2.4 ng/mL Normal 0.0-3.0 [facility] Comment on above: Result Comment: 0.0-3.0 ng/mL FOR NON SMOKERS 0.0-5.0 ng/mL FOR SMOKERS The method used for this test is Janae Alexandria DXI chemiluminescent immunoassay. Values obtained by different assay methods cannot be used interchangeably. Performed By: #### C SAURABH ABDI, 1833-07, , FEPR, 6-4, 2283-8, 2132-03, TSHR #### [facility] ([id number]) [address] [place] [id number] Cortisol [Mass/Vol]on 2023 CORTISOL 23.9 ug/dL Normal [facility] Comment on above: Result Comment: Due to the diurnal variation of cortisol levels in normal subjects, all cortisol measurements should be referenced to the time of day of sample collection. AM Cortisol Age>=6 6.7-22.4 ug/dL PM Cortisol Age>=6 <10 ug/dL Performed By: #### C JIN, SAURABH, 1833-07, , FEPR, 2276-4, 8, 2132-03, TSHR #### [facility] ([id number]) Formerly [facility] [address] [address] HGB AND HCTon 05-27-2024 Hematocrit (Bld) [Volume fraction] 22.4 % Low 39-49 [facility] Comment on above: Performed By: #### C BCA, CMP, 1833-07, 96078-1, FEPR, 2276-4, 2284-8, 2131-9, TSHR #### [facility] ([id number]) [address], [address] [place] [address] Hemoglobin (Bld) [Mass/Vol] 7.8 g/dL Low 13.0-17.0 [facility] Comment on above: Performed By: #### C BCA, CMP, 1833-, 42318-2, FEPR, 2276-4, 2284-8, 9, TSHR #### [facility] ([id number]) [address], [address] [place] [address] Hematocrit (Bld) [Volume fraction] 21.7 % Low 39-49 [facility] Comment on above: Performed By: #### C BCA, CMP, 1833-07, , FEPR, 2276-4, 2284-8, 2132-03, TSHR #### [facility] ([id number]) [address], [address] [place] [address] Hemoglobin (Bld) [Mass/Vol] 7.5 g/dL Low 13.0-17.0 [facility] Comment on above: Performed By: #### C BCA, CMP, 1833-, 45430-0, FEPR, 2276-4, 2284-8, 2132-03, TSHR #### [facility] ([id number]) [address], [address] [place] [address] MAGNESIUMon 05-27-2024 Magnesium [Mass/Vol] 2.0 mg/dL Normal 1.8-2.6 [facility] Comment on above: Performed By: #### C BCA, CMP, 1833-, 72074-3, FEPR, 2276-4, 2284-8, 2-9, TSHR #### [facility] ([id number]) [address], [address] [place] [address] PROTIME AND INRon 05-27-2024 INR Coag (PPP) [Relative time] 1.5 {INR} High 0.8-1.1 [facility] Comment on above: Performed By: #### C BCA, CMP, 1833-, 18417-4, FEPR, 6-4, 2283-8, 2132-03, TSHR #### [facility] ([id number]) [address] [place] [address] PT Coag (PPP) [Time] 16.9 s High 9.8-13.2 [facility] Comment on above: Performed By: #### C BCA, CMP, 1833-07, , FEPR, 2275-4, 8, 2132-03, TSHR #### [facility] ([id number]) [address], [address] [place] [address] Parathyrin.intact [Mass/Vol] on 05-27-2024 PTH INTACT 26 pg/mL Normal 12-88 [facility] Comment on above: Performed By: #### C BCA, CMP, 1833-07, , FEPR, 2275-4, 8, 2132-03, TSHR #### [facility] ([id number]) [address], [address] [place] [address] SODIUMon 05-27-2024 Sodium [Moles/Vol] 126 mmol/L Low 134-146 [facility] Comment on above: Performed By: #### C BCA, CMP, 1833-07, , FEPR, 2275-4, 2283-8, 2132-03, TSHR #### [facility] ([id number]) [address], [address] [place] [address] Sodium [Moles/Vol] 124 mmol/L Low 134-146 [facility] Comment on above: Performed By: #### C BCA, CMP, 1833-07, 14925-2, FEPR, 2276-4, 2284-8, 2131-9, TSHR #### [facility] ([id number]) [address], [address] [place] [address] Sodium [Moles/Vol] 126 mmol/L Low 134-146 [facility] Comment on above: Performed By: #### C BCA, CMP, 1833-, 96958-6, FEPR, 2276-4, 2284-8, 9, TSHR #### [facility] ([id number]) [address], [address] [place] [address] Sodium [Moles/Vol] 125 mmol/L Low 134-146 [facility] Comment on above: Performed By: #### C BCA, CMP, 1833-07, , FEPR, 6-4, 2283-8, 2132-03, TSHR #### [facility] ([id number]) [address], [address] [place] [address] Sodium [Moles/Vol] 124 mmol/L Low 134-146 [facility] Comment on above: Performed By: #### C BCA, CMP, 1833-07, , FEPR, 2276-4, 4-8, 9, TSHR #### [facility] ([id number]) [address], [address] [place] [address] URINE CULTUREon 05-27-2024 Bacteria identified Cx Nom (U) CULTURE RESULTS 10-50,000 ORGANISMS/mL NORMAL UROGENITAL RUBY Normal [facility] Comment on above: Performed By: #### C BCA, CMP, 1833-, 68043-8, FEPR, 2276-4, 4-8, 9, TSHR #### [facility] ([id number]) [address], [address] [place] [address] AFP [Mass/Vol]on 05-26-2024 ALPHA FETOPROTEIN 184.2 ng/mL High 0-9.9 [facility] Comment on above: Performed By: #### C BCA, CMP, 1834-1, 45554-9, FEPR, 2276-4, 2284-8, 2131-9, TSHR #### [facility] ([id number]) [address], [address] [place] [address] CBC AND AUTO DIFFon 10-30-20 24 Band form neutrophils/100 WBC (Bld) 3.0 % Normal [facility] Comment on above: Performed By: #### C BCA, CMP, 1833-, 30960-2, FEPR, 2276-4, 2284-8, 2131-9, TSHR #### [facility] ([id number]) [address], [address] [place] [address] ARIANNA 1+ Abnormal NONE [facility] Comment on above: Performed By: #### C BCA, CMP, 1833-, 73469-3, FEPR, 2276-4, 2284-8, 2131-9, TSHR #### [facility] ([id number]) [address], [address] [place] [address] Erythrocyte distribution width (RBC) [Ratio] 14.7 % Normal 11.5-15.0 [facility] Comment on above: Performed By: #### C BCA, CMP, 1833-, 54558-4, FEPR, 2276-4, 2284-8, 2131-9, TSHR #### [facility] ([id number]) [address], [address] [place] [address] FRAGMENT 1+ Abnormal NONE [facility] Comment on above: Performed By: #### C BCA, CMP, 1834-1, 05993-1, FEPR, 2276-4, 2284-8, 2132-9, TSHR #### [facility] ([id number]) [address], [address] [place] [address] Hematocrit (Bld) [Volume fraction] 20.9 % Low 39-49 [facility] Comment on above: Performed By: #### C BCA, CMP, 1833-07, , FEPR, 2276-4, 2283-8, 2132-03, TSHR #### [facility] ([id number]) [address], [facility] [address] [place] [address] Hemoglobin (Bld) [Mass/Vol] 7.1 g/dL Low 13.0-17.0 [facility] Comment on above: Performed By: #### C BCA, CMP, 1833-07, , FEPR, 6-4, 2283-8, 2132-03, TSHR #### [facility] ([id number]) [address] [address] Lymphocytes (Bld) [#/Vol] 1.0 10*3/uL Normal 1.0-3.5 [facility] Comment on above: Performed By: #### C BCA, CMP, 1833-07, , FEPR, 6-4, 2283-8, 2132-03, TSHR #### [facility] ([id number]) [address], [address] [address] Lymphocytes/100 WBC (Bld) 7.0 % Normal [facility] Comment on above: Performed By: #### C BCA, CMP, 1833-07, , FEPR, 6-4, 2283-8, 2132-03, TSHR #### [facility] ([id number]) [address] [address] [place] [address] MCH (RBC) [Entitic mass] 30.8 pg Normal 27-34 [facility] Comment on above: Performed By: #### C BCA, CMP, 1833-07, , FEPR, 2276-4, 2283-8, 2132-03, TSHR #### [facility] ([id number]) [address], [address] [place] [address] MCHC (RBC) [Mass/Vol] 34.1 g/dL Normal 32-36 [facility] Comment on above: Performed By: #### C BCA, CMP, 1833-, 92701-6, FEPR, 2276-4, 2283-8, 2132-03, TSHR #### [facility] ([id number]) [address], [address] [place] [address] MCV (RBC) [Entitic vol] 90 fL Normal 80-100 [facility] Comment on above: Performed By: #### C BCA, CMP, 1833-, , FEPR, 6-4, 2283-8, 2132-03, TSHR #### [facility] ([id number]) [address], [address] [place] [address] Monocytes (Bld) [#/Vol] 1.9 10*3/uL High 0-0.9 [facility] Comment on above: Performed By: #### C BCA, CMP, 1833-, , FEPR, 6-4, 2283-8, 2132-03, TSHR #### [facility] ([id number]) [address], [address] [place] [address] Monocytes/100 WBC (Bld) 13.0 % Normal [facility] Comment on above: Performed By: #### C BCA, CMP, 1833-, , FEPR, 6-4, 2283-8, 2132-03, TSHR #### [facility] ([id number]) [address], [address] [place] [address] Neutrophils (Bld) [#/Vol] 11.9 10*3/uL High 1.5-6.6 [facility] Comment on above: Performed By: #### C BCA, CMP, 1833-, 73098-6, FEPR, 2276-4, 2284-8, 2131-9, TSHR #### [facility] ([id number]) [address], [address] [place] [address] OVALOCYTE 1+ Abnormal NONE [facility] Comment on above: Performed By: #### C BCA, CMP, 1833-, 77087-0, FEPR, 2276-4, 2283-8, 9, TSHR #### [facility] ([id number]) [address], [address] [place] [address] Platelet mean volume (Bld) [Entitic vol] 7.9 fL Normal 7-12 [facility] Comment on above: Performed By: #### C BCA, CMP, 1833-, 20883-6, FEPR, 6-4, 2283-8, 2132-03, TSHR #### [facility] ([id number]) [address], [address] [place] [address] Platelets (Bld) [#/Vol] 328 10*3/uL Normal 150-450 [facility] Comment on above: Performed By: #### C BCA, CMP, 1833-, 16521-2, FEPR, 2276-4, 2283-8, 2132-03, TSHR #### [facility] ([id number]) [address], [address] [place] [address] POLYCHROMASIA 1+ Abnormal NONE [facility] Comment on above: Performed By: #### C BCA, CMP, 1833-, 60480-1, FEPR, 2276-4, 2283-8, 2132-03, TSHR #### [facility] ([id number]) [address], [address] [place] [address] RBC COUNT 2.32 X10E12/L Low 4.10-5.70 [facility] Comment on above: Performed By: #### C BCA, CMP, 1833-, , FEPR, 6-4, 2283-8, 2132-03, TSHR #### [facility] ([id number]) [address], [address] [place] [address] SEG NEUTROPHIL 77.0 % Normal [facility] Comment on above: Performed By: #### C BCA, CMP, 1833-07, , FEPR, 2275-4, 2283-8, 2132-03, TSHR #### [facility] ([id number]) [address], [address] [place] [address] WBC (Bld) [#/Vol] 14.8 10*3/uL High 4.0-11.0 [facility] Comment on above: Performed By: #### C BCA, CMP, 1833-07, , FEPR, 2275-4, 2284-02, 2132-03, TSHR #### [facility] ([id number]) [address], [address] [place] [address] ABSOLUTE BASOPHIL 0.0 X10E9/L Normal 0.0-0.2 [facility] Comment on above: Performed By: #### C BCA, CMP, 1833-07, , FEPR, 2275-4, 2284-02, 2132-03, TSHR #### [facility] ([id number]) [address], [address] [place] [address] ABSOLUTE NEUTROPHIL 10.1 X10E9/L High 1.5-6.6 [facility] Comment on above: Performed By: #### C BCA, CMP, 1833-, , FEPR, 6-4, 8, 2132-03, TSHR #### [facility] ([id number]) [address], [address] [place] [address] Basophils/100 WBC (Bld) 0.2 % Normal [facility] Comment on above: Performed By: #### C BCA, CMP, 1833-, 15260-5, FEPR, 2276-4, 2284-8, 2132-03, TSHR #### [facility] ([id number]) [address], [address] [place] [address] Eosinophils (Bld) [#/Vol] 0.0 10*3/uL Normal 0.0-0.4 [facility] Comment on above: Performed By: #### C BCA, CMP, 1833-, , FEPR, 2276-4, 2284-8, 2132-03, TSHR #### [facility] ([id number]) [address], [address] [place] [address] Eosinophils/100 WBC (Bld) 0.0 % Normal [facility] Comment on above: Performed By: #### C BCA, CMP, 1833-07, , FEPR, 2276-4, 228-8, 2132-03, TSHR #### [facility] ([id number]) [address], [address] [place] [address] Erythrocyte distribution width (RBC) [Ratio] 14.5 % Normal 11.5-15.0 [facility] Comment on above: Performed By: #### C BCA, CMP, 1833-07, , FEPR, 2276-4, 2284-8, 2132-03, TSHR #### [facility] ([id number]) [address], [address] [place] [address] Hematocrit (Bld) [Volume fraction] 22.9 % Low 39-49 [facility] Comment on above: Performed By: #### C BCA, CMP, 1833-, 03082-0, FEPR, 2276-4, 2284-8, 9, TSHR #### [facility] ([id number]) [address], [address] [place] [address] Hemoglobin (Bld) [Mass/Vol] 7.7 g/dL Low 13.0-17.0 [facility] Comment on above: Performed By: #### C BCA, CMP, 1833-, 09390-0, FEPR, 2276-4, 2284-8, 2131-9, TSHR #### [facility] ([id number]) [address], [address] [place] [address] Lymphocytes (Bld) [#/Vol] 0.4 10*3/uL Low 1.0-3.5 [facility] Comment on above: Performed By: #### C BCA, CMP, 1833-, , FEPR, 2276-4, 4-8, 2132-03, TSHR #### [facility] ([id number]) [address], [address] [place] [address] Lymphocytes/100 WBC (Bld) 3.3 % Normal [facility] Comment on above: Performed By: #### C BCA, CMP, 1833-07, , FEPR, 2276-4, 2283-8, 2132-03, TSHR #### [facility] ([id number]) [address], [address] [place] [address] MCH (RBC) [Entitic mass] 30.4 pg Normal 27-34 [facility] Comment on above: Performed By: #### C BCA, CMP, 1833-, 27025-4, FEPR, 2276-4, 2284-8, 9, TSHR #### [facility] ([id number]) [address], [address] [place] [address] MCHC (RBC) [Mass/Vol] 33.5 g/dL Normal 32-36 [facility] Comment on above: Performed By: #### C BCA, CMP, 1833-, , FEPR, 2276-4, 2283-8, 2132-03, TSHR #### [facility] ([id number]) [address], [address] [place] [address] MCV (RBC) [Entitic vol] 91 fL Normal 80-100 [facility] Comment on above: Performed By: #### C BCA, CMP, 1833-07, , FEPR, 2276-4, 4-8, 2132-03, TSHR #### [facility] ([id number]) [address], [address] [place] [address] Monocytes (Bld) [#/Vol] 1.5 10*3/uL High 0-0.9 [facility] Comment on above: Performed By: #### C BCA, CMP, 1833-07, , FEPR, 6-4, 2283-8, 2132-03, TSHR #### [facility] ([id number]) [address], [address] [place] [address] Monocytes/100 WBC (Bld) 12.4 % Normal [facility] Comment on above: Performed By: #### C BCA, CMP, 1833-07, , FEPR, 6-4, 2283-8, 2132-03, TSHR #### [facility] ([id number]) [address], [address] [place] [address] Neutrophils/100 WBC (Bld) 84.1 % Normal [facility] Comment on above: Performed By: #### C BCA, CMP, 1833-07, , FEPR, 2276-4, 2283-8, 2132-03, TSHR #### [facility] ([id number]) [address] [place] [address] Platelet mean volume (Bld) [Entitic vol] 8.0 fL Normal 7-12 [facility] Comment on above: Performed By: #### C BCA, CMP, 1833-, 64099-4, FEPR, 2276-4, 2284-8, 2132-03, TSHR #### [facility] ([id number]) [address], [address] [place] [address] Platelets (Bld) [#/Vol] 224 10*3/uL Normal 150-450 [facility] Comment on above: Performed By: #### C BCA, CMP, 1833-, 44631-0, FEPR, 2276-4, 4-8, 2132-03, TSHR #### [facility] ([id number]) [address] [place] [address] RBC COUNT 2.53 X10E12/L Low 4.10-5.70 [facility] Comment on above: Performed By: #### C BCA, CMP, 1833-07, , FEPR, 2276-4, 2283-8, 2132-03, TSHR #### [facility] ([id number]) [address] [place] [address] WBC (Bld) [#/Vol] 12.0 10*3/uL High 4.0-11.0 [facility] Comment on above: Performed By: #### C BCA, CMP, 1833-07, , FEPR, 2276-4, 2283-8, 2132-03, TSHR #### [facility] ([id number]) [address] [place] [address] COMPREHENSIVE METABOLIC PANE Zoran 05-26-2024 Albumin [Mass/Vol] 3.0 g/dL Low 3.2-5.3 [facility] Comment on above: Performed By: #### C BCA, CMP, 1833-, 89820-0, FEPR, 2276-4, 2284-8, 9, TSHR #### [facility] ([id number]) [address] [place] [address] ALP [Catalytic activity/Vol] 235 U/L High 39-130 [facility] Comment on above: Performed By: #### C BCA, CMP, 1833-1, 91271-2, FEPR, 2276-4, 2284-8, 9, TSHR #### [facility] ([id number]) [address] [place] [address] ALT [Catalytic activity/Vol] 77 U/L High 0-40 [facility] Comment on above: Performed By: #### C BCA, CMP, 1833-, , FEPR, 2276-4, 2284-8, 2132-03, TSHR #### [facility] ([id number]) [address] [place] [address] Anion gap [Moles/Vol] 13 mmol/L Normal 5-15 [facility] Comment on above: Performed By: #### C BCA, CMP, 1833-07, , FEPR, 2276-4, 228-8, 2132-03, TSHR #### [facility] ([id number]) [address] [place] [address] AST [Catalytic activity/Vol] 174 U/L High 0-41 [facility] Comment on above: Performed By: #### C BCA, CMP, 1833-, , FEPR, 2276-4, 2284-8, 9, TSHR #### [facility] ([id number]) [address] [place] [address] Bilirubin [Mass/Vol] 1.3 mg/dL High 0.3-1.2 [facility] Comment on above: Performed By: #### C BCA, CMP, 1833-, 55408-3, FEPR, 2276-4, 2284-8, 9, TSHR #### [facility] ([id number]) [address] [place] [address] Calcium [Mass/Vol] 9.0 mg/dL Normal 8.5-10.5 [facility] Comment on above: Performed By: #### C BCA, CMP, 4-1, 24064-5, FEPR, 6-4, 2283-8, 2132-03, TSHR #### [facility] ([id number]) [address] [place] [address] Chloride [Moles/Vol] 96 mmol/L Low 98-109 [facility] Comment on above: Performed By: #### C BCA, CMP, 1833-, 45639-2, FEPR, 2275-4, 2283-8, 2132-03, TSHR #### [facility] ([id number]) [address] [place] [address] CO2 [Moles/Vol] 15 mmol/L Low 22-32 [facility] Comment on above: Performed By: #### C BCA, CMP, 1833-, 20017-8, FEPR, 6-4, 2283-8, 2132-03, TSHR #### [facility] ([id number]) [address] [place] [address] Creatinine [Mass/Vol] 2.33 mg/dL High 0.60-1.30 [facility] Comment on above: Result Comment: METH OD TRACEABLE TO IDMS STANDARD Performed By: #### C BCA, CMP, 4-1, 14771-6, FEPR, 6-4, 2283-8, 2132-03, TSHR #### [facility] ([id number]) [address] [place] [address] GFR/1.73 sq M.predicted among non-blacks MDRD (S/P/Bld) [Vol rate/Area] 27 mL/min/{1.73_m2} Low >59 [facility] Comment on above: Result Comment: Reported eGFR is based on the CKD-EPI 2020 equation that does not use a race coefficient. Performed By: #### C BCA, CMP, 1833-, 52210-9, FEPR, 2276-4, 2284-8, 2132-03, TSHR #### [facility] ([id number]) [address] [place] [address] Glucose [Mass/Vol] 154 mg/dL High 65-99 [facility] Comment on above: Performed By: #### C BCA, CMP, 1833-07, , FEPR, 2276-4, 2283-8, 2132-03, TSHR #### [facility] ([id number]) [address] [place] [address] Potassium [Moles/Vol] 4.7 mmol/L Normal 3.5-5.0 [facility] Comment on above: Performed By: #### C BCA, CMP, 1833-07, , FEPR, 2276-4, 2283-8, 2132-03, TSHR #### [facility] ([id number]) [address] [place] [address] Protein [Mass/Vol] 6.0 g/dL Normal 6.0-8.0 [facility] Comment on above: Performed By: #### C BCA, CMP, 1833-07, , FEPR, 2276-4, 2284-8, 2132-03, TSHR #### [facility] ([id number]) [address] [place] [address] Sodium [Moles/Vol] 124 mmol/L Low 134-146 [facility] Comment on above: Performed By: #### C BCA, CMP, 1833-07, , FEPR, 2276-4, 2284-8, 2132-03, TSHR #### [facility] ([id number]) [address] [place] [address] Urea nitrogen [Mass/Vol] 50 mg/dL High 5-27 [facility] Comment on above: Performed By: #### C BCA, CMP, 1833-, 20442-3, FEPR, 2276-4, 2283-8, 2132-03, TSHR #### [facility] ([id number]) [address] [place] [address] Albumin [Mass/Vol] 3.2 g/dL Normal 3.2-5.3 [facility] Comment on above: Performed By: #### C BCA, CMP, 1833-, , FEPR, 2275-4, 2283-8, 2132-03, TSHR #### [facility] ([id number]) [address] [place] [address] ALP [Catalytic activity/Vol] 259 U/L High 39-130 [facility] Comment on above: Performed By: #### C BCA, CMP, 1833-07, , FEPR, 2275-4, 2283-8, 2132-03, TSHR #### [facility] ([id number]) [address] [place] [address] ALT [Catalytic activity/Vol] 84 U/L High 0-40 [facility] Comment on above: Performed By: #### C BCA, CMP, 1833-, 16783-8, FEPR, 6-4, 2283-8, 2132-03, TSHR #### [facility] ([id number]) [address] [place] [address] Anion gap [Moles/Vol] 13 mmol/L Normal 5-15 [facility] Comment on above: Performed By: #### C BCA, CMP, 1833-, 73480-4, FEPR, 2276-4, 2284-8, 9, TSHR #### [facility] ([id number]) [address] [place] [address] AST [Catalytic activity/Vol] 261 U/L High 0-41 [facility] Comment on above: Performed By: #### C BCA, CMP, 1833-, 59772-2, FEPR, 2276-4, 2284-8, 9, TSHR #### [facility] ([id number]) [address] [place] [address] Bilirubin [Mass/Vol] 1.1 mg/dL Normal 0.3-1.2 [facility] Comment on above: Performed By: #### C BCA, CMP, 1833-07, , FEPR, 6-4, 2283-8, 2132-03, TSHR #### [facility] ([id number]) [address] [place] [address] Calcium [Mass/Vol] 8.9 mg/dL Normal 8.5-10.5 [facility] Comment on above: Performed By: #### C BCA, CMP, 1833-07, , FEPR, 2276-4, 4-8, 2132-03, TSHR #### [facility] ([id number]) [address] [place] [address] Chloride [Moles/Vol] 97 mmol/L Low 98-109 [facility] Comment on above: Performed By: #### C BCA, CMP, 1833-, , FEPR, 2276-4, 2284-8, 9, TSHR #### [facility] ([id number]) [address] [place] [address] CO2 [Moles/Vol] 16 mmol/L Low 22-32 [facility] Comment on above: Performed By: #### C BCA, CMP, 1833-07, , FEPR, 2276-4, 2283-8, 2132-03, TSHR #### [facility] ([id number]) [address] [place] [address] Creatinine [Mass/Vol] 2.45 mg/dL High 0.60-1.30 [facility] Comment on above: Result Comment: METH OD TRACEABLE TO IDMS STANDARD Performed By: #### C BCA, CMP, 1833-07, , FEPR, 6-4, 2283-8, 2132-03, TSHR #### [facility] ([id number]) [address] [place] [address] GFR/1.73 sq M.predicted among non-blacks MDRD (S/P/Bld) [Vol rate/Area] 26 mL/min/{1.73_m2} Low >59 [facility] Comment on above: Result Comment: Reported eGFR is based on the CKD-EPI 2020 equation that does not use a race coefficient. Performed By: #### C BCA, CMP, 1833-07, , FEPR, 6-4, 8, 2132-03, TSHR #### [facility] ([id number]) [address], [address] [place] [address] Glucose [Mass/Vol] 107 mg/dL High 65-99 [facility] Comment on above: Performed By: #### C BCA, CMP, 1833-07, , FEPR, 2276-4, 228-8, 2132-03, TSHR #### [facility] ([id number]) [address], [address] [place] [address] Potassium [Moles/Vol] 5.4 mmol/L High 3.5-5.0 [facility] Comment on above: Performed By: #### C BCA, CMP, 1833-07, 88195-8, FEPR, 2276-4, 2284-8, 2131-9, TSHR #### [facility] ([id number]) [address], [address] [place] [address] Protein [Mass/Vol] 6.3 g/dL Normal 6.0-8.0 [facility] Comment on above: Performed By: #### C BCA, CMP, 1833-, 56180-6, FEPR, 2276-4, 2284-8, 9, TSHR #### [facility] ([id number]) [address], [address] [place] [address] Sodium [Moles/Vol] 126 mmol/L Low 134-146 [facility] Comment on above: Performed By: #### C BCA, CMP, 1833-, 81979-9, FEPR, 2276-4, 2284-8, 2132-03, TSHR #### [facility] ([id number]) [address], [address] [place] [address] Urea nitrogen [Mass/Vol] 49 mg/dL High 5-27 [facility] Comment on above: Performed By: #### C BCA, CMP, 1833-, 92911-7, FEPR, 2276-4, 2284-8, 9, TSHR #### [facility] ([id number]) [address], [address] [place] [address] Chloride (U) [Moles/Vol]on URINE CHLORIDE,RANDOM 50 mmol/L Normal [facility] Comment on above: Performed By: #### C BCA, CMP, 1833-, 96231-3, FEPR, 2276-4, 2284-8, 9, TSHR #### [facility] ([id number]) [address], [address] [place] [address] Creatinine (U) [Mass/Vol]on 05-26-2024 URINE CREATININE,RDM 87.29 mg/dL Normal [facility] Comment on above: Performed By: #### C BCA, CMP, 1834-1, 77968-1, FEPR, 2276-4, 4-8, 9, TSHR #### [facility] ([id number]) [address], [address] [place] [address] FERRITINon 05-26-2024 Ferritin [Mass/Vol] 497 ng/mL High 24-336 [facility] Comment on above: Performed By: #### C BCA, CMP, 1833-, 78382-2, FEPR, 2276-4, 2283-8, 2132-03, TSHR #### [facility] ([id number]) [address], [address] [place] [address] Folate [Mass/Vol]on 05-26-20 24 FOLIC ACID >25.0 Normal >5.8 [facility] Comment on above: Result Comment: NEW REFERENCE RANGE Performed By: #### C BCA, CMP, 1833-, 01823-7, FEPR, 2276-4, 2283-8, 2132-03, TSHR #### [facility] ([id number]) [address] [place] [address] IRON PROFILEon 05-26-2024 Iron [Mass/Vol] 23 ug/dL Low 50-212 [facility] Comment on above: Performed By: #### C BCA, CMP, 1833-, 20284-1, FEPR, 2276-4, 228-8, 9, TSHR #### [facility] ([id number]) [address], [address] [place] [address] IRON BINDING 202 ug/dL Low 250-425 [facility] Comment on above: Performed By: #### C BCA, CMP, 183-1, 16890-4, FEPR, 2276-4, 228-8, 9, TSHR #### [facility] ([id number]) [address], [address] [place] [address] IRON SATURATION 11 % SATURATION Low 20-50 [facility] Comment on above: Performed By: #### C BCA, CMP, 1833-07, , FEPR, 6-4, 2283-8, 2132-03, TSHR #### [facility] ([id number]) [address], [address] [place] [address] MAGNESIUMon 05-26-2024 Magnesium [Mass/Vol] 2.2 mg/dL Normal 1.8-2.6 [facility] Comment on above: Performed By: #### C BCA, CMP, 1833-07, , FEPR, 4, 8, 2132-03, TSHR #### [facility] ([id number]) [address] [place] [address] Magnesium [Mass/Vol] 1.7 mg/dL Low 1.8-2.6 [facility] Comment on above: Performed By: #### 1 9123-9 #### [facility] ([id number]) 0 [address] [place] [address] Magnesium [Mass/Vol] 1.7 mg/dL Low 1.8-2.6 [facility] Comment on above: Performed By: #### C BCA, CMP, 1833-07, , FEPR, 2275-4, 8, 2132-03, TSHR #### [facility] ([id number]) [address] [place] [address] Natriuretic peptide B [Mass/ Vol]on 05-26-2024 Natriuretic peptide B (Bld) [Mass/Vol] 1534 pg/mL High <100.0 [facility] Comment on above: Performed By: #### C BCA, CMP, 1833-07, 66259-6, FEPR, 2276-4, 4-8, 9, TSHR #### [facility] ([id number]) [address] [place] [address] Osmolality (U) [Osmolality]o n 05-26-2024 URINE OSMOLALITY 474 mOsm/kg H2 Normal 300-1300 [facility] Comment on above: Performed By: #### C JIN, CMP, 1833-, 64559-6, FEPR, 6-4, 4-8, 2132-03, TSHR #### [facility] ([id number]) [address], [address] [place] [address] Osmolality [Osmolality]on OSMOLALITY 276 mOsm/kg H2 Low 280-300 [facility] Comment on above: Performed By: #### C JIN, SAURABH, 1833-, , FEPR, 6-4, 2283-8, 2132-03, TSHR #### [facility] ([id number]) [address], [address] [place] [address] PROTIME AND INRon 05-26-2024 INR Coag (PPP) [Relative time] 1.6 {INR} High 0.8-1.1 [facility] Comment on above: Performed By: #### C JIN, CMP, 1833-, , FEPR, 6-4, 2283-8, 2132-03, TSHR #### [facility] ([id number]) [address] [place] [address] PT Coag (PPP) [Time] 18.5 s High 9.8-13.2 [facility] Comment on above: Performed By: #### C JIN, CMP, 1833-, 49031-7, FEPR, 2276-4, 4-8, 9, TSHR #### [facility] ([id number]) [address] [place] [address] Potassium (U) [Moles/Vol]on 05-26-2024 URINE POTASSIUM,RANDOM 36.9 mmol/L Normal [facility] Comment on above: Performed By: #### C BCA, CMP, 1833-1, 76296-3, FEPR, 2276-4, 2284-8, 2132-03, TSHR #### [facility] ([id number]) [address] [facility] [address] [place] [address] Reminderson 05-26-2024 Reminders Reminders From: Sierra Rizzo To: EU - Recalls Venegas; Sent: 04/27/2024 16:14:14 EDT Show up: 06/27/2024 16:14:00 EST Subject: Neph tube change Due Date/Time: 07/26/2024 16:14:00 EST Reminder/Recall Patient is due in Jul 2024 for 3 month neph tube change at [facility] Patient r/s to Jun 14 due to heart cath. He will be due in Aug.LG Normal [facility] SODIUMon 05-26-2024 Sodium [Moles/Vol] 123 mmol/L Low 134-146 [facility] Comment on above: Performed By: #### C BCA, CMP, 1833-07, 42746-2, FEPR, 6-4, 4-8, 2132-03, TSHR #### [facility] ([id number]) [address] [place] [address] Sodium [Moles/Vol] 127 mmol/L Low 134-146 [facility] Comment on above: Performed By: #### C BCA, CMP, 1833-, 41480-1, FEPR, 2276-4, 2284-8, 2132-03, TSHR #### [facility] ([id number]) [address] [place] [address] TSH WITH REFLEXon 05-26-2024 TSH 1.66 uIU/mL Normal 0.49-4.67 [facility] Comment on above: Performed By: #### C BCA, CMP, 1833-1, 68641-4, FEPR, 2276-4, 2284-8, 9, TSHR #### [facility] ([id number]) [address] [place] [address] URIC ACIDon 05-26-2024 Urate [Mass/Vol] 8.2 mg/dL High 2.6-7.2 [facility] Comment on above: Performed By: #### C BCA, CMP, 1833-, 96779-6, FEPR, 2276-4, 2284-8, 2132-03, TSHR #### [facility] ([id number]) [address] [place] [address] URINALYSISon 05-26-2024 Bilirubin Ql (U) Negative Normal NEG [facility] Comment on above: Performed By: #### C BCA, CMP, 1833-, 47924-6, FEPR, 2276-4, 2284-8, 2132-03, TSHR #### [facility] ([id number]) [address] [place] [address] BLOOD/HGB Large Abnormal NEG [facility] Comment on above: Performed By: #### C BCA, CMP, 1833-, 34968-5, FEPR, 2276-4, 2284-8, 9, TSHR #### [facility] ([id number]) [address] [place] [address] Color (U) YELLOW Normal YELLOW [facility] Comment on above: Performed By: #### C BCA, CMP, 1833-1, 69726-9, FEPR, 2276-4, 2284-8, 2131-9, TSHR #### [facility] ([id number]) [address] [place] [address] Glucose Ql (U) Negative Normal NEG [facility] Comment on above: Performed By: #### C BCA, CMP, 1834-1, 63131-6, FEPR, 2276-4, 2284-8, 2131-9, TSHR #### [facility] ([id number]) [address] [place] [address] Ketones Ql (U) 10 mg/dL Abnormal NEG [facility] Comment on above: Performed By: #### C BCA, CMP, 1833-, 20160-1, FEPR, 2276-4, 2284-8, 2131-9, TSHR #### [facility] ([id number]) [address] [place] [address] Leukocyte esterase Test strip Ql (U) Large Abnormal NEG [facility] Comment on above: Performed By: #### C BCA, CMP, 1833-, 72918-0, FEPR, 2276-4, 2284-8, 2131-9, TSHR #### [facility] ([id number]) [address] [place] [address] MUCOUS PRESENT Abnormal NONE [facility] Comment on above: Performed By: #### C BCA, CMP, 1833-, 32663-2, FEPR, 2276-4, 2284-8, 2131-9, TSHR #### [facility] ([id number]) [address] [place] [address] Nitrite Ql (U) Positive Abnormal NEG [facility] Comment on above: Performed By: #### C BCA, CMP, 1833-1, 21306-2, FEPR, 2276-4, 2284-8, 2-9, TSHR #### [facility] ([id number]) [address] [place] [address] pH (U) 8.0 [pH] Normal 5.0-8.5 [facility] Comment on above: Performed By: #### C BCA, CMP, 1833-, 40161-7, FEPR, 6-4, 2283-8, 2132-03, TSHR #### [facility] ([id number]) [address] [place] [address] Protein Ql (U) 100 mg/dL Abnormal NEG [facility] Comment on above: Performed By: #### C BCA, CMP, 1833-, 89204-7, FEPR, 6-4, 2283-8, 2131-9, TSHR #### [facility] ([id number]) [address] [place] [address] R.B.CELLS 7 /hpf High 0-5 [facility] Comment on above: Performed By: #### C BCA, CMP, 1833-, 92686-4, FEPR, 6-4, 2283-8, 2132-03, TSHR #### [facility] ([id number]) [address] [place] [address] Specific gravity (U) [Rel density] 1.017 Normal 1.003-1.035 [facility] Comment on above: Performed By: #### C BCA, CMP, 1833-, 20624-9, FEPR, 2275-4, 2283-8, 2132-03, TSHR #### [facility] ([id number]) [address] [place] [address] SQUAMOUS EPITHELIUM 2 /hpf Normal 0-5 [facility] Comment on above: Performed By: #### C BCA, CMP, 1833-, 89114-3, FEPR, 2276-4, 2283-8, 9, TSHR #### [facility] ([id number]) [address] [place] [address] TRIPLE PHOS CRYSTALS PRESENT Abnormal NONE [facility] Comment on above: Performed By: #### C BCA, CMP, 1833-, 77127-6, FEPR, 2276-4, 2284-8, 2131-9, TSHR #### [facility] ([id number]) [address] [place] [address] TURBIDITY HAZY Abnormal CLEAR [facility] Comment on above: Performed By: #### C BCA, CMP, 1833-, 55055-1, FEPR, 2276-4, 2284-8, 2132-03, TSHR #### [facility] ([id number]) [address] [place] [address] Urobilinogen (U) [Mass/Vol] mg/dL Normal <1.1 [facility] Comment on above: Performed By: #### C BCA, CMP, 1833-, , FEPR, 2276-4, 2283-8, 2132-03, TSHR #### [facility] ([id number]) [address] [place] [address] W.B.CELLS 36 /hpf High 0-5 [facility] Comment on above: Performed By: #### C BCA, CMP, 1833-, , FEPR, 2276-4, 228-8, 2132-03, TSHR #### [facility] ([id number]) [address] [place] [address] URINE SODIUM,RANDOMon 2023 Sodium (U) [Moles/Vol] 52 mmol/L Normal Pr [facility] Comment on above: Performed By: #### C BCA, CMP, 1833-, 19854-4, FEPR, 2276-4, 2284-8, 9, TSHR #### [facility] ([id number]) [address] [place] [address] US ABDOMEN LMTDon 05-26-2024 US ABDOMEN LMTD [...] Parkinson MD on 05/26/2024 9:54 AM Normal [facility] US RETROPERITONEAL COMPLETEo n 05-26-2024 US RETROPERITONEAL [...] Parkinson MD on 05/26/2024 9:58 AM Normal [facility] Urea nitrogen (U) [Mass/Vol] on 05-26-2024 URINE UREA NITROGEN,RANDOM 712 mg/dL Normal [facility] Comment on above: Performed By: #### C BCA, CMP, 1834-1, 47615-1, FEPR, 2276-4, 2284-8, 2132-03, TSHR #### [facility] ([id number]) [address] [place] [address] VITAMIN B12on 05-26-2024 Cobalamin (Vitamin B12) [Mass/Vol] 1422 pg/mL High 180-914 [facility] Comment on above: Performed By: #### C BCA, CMP, 1834-1, 96324-5, FEPR, 2276-4, 2284-8, 2132-03, TSHR #### [facility] ([id number]) [address] [facility], [address] [place] [address] aPTT Coag (PPP) [Time]on aPTT Coag (Bld) [Time] 27 s Normal 26-37 Pr [facility] Comment on above: Performed By: #### C BCA, CMP, 1834-1, 86234-6, FEPR, 2276-4, 2284-8, 2132-03, TSHR #### [facility] ([id number]) [address] [facility], [address] [place] [address] Basophils/100 WBC Manual cnt (Bld)on 05-25-2024 Basophils/100 WBC (Bld) Basophils/100 leukocytes in Blood by Manual count Low 0.2-2.0 [facility] Eosinophils/100 WBC Manual c nt (Bld)on 05-25-2024 Eosinophils/100 WBC (Bld) Eosinophils/100 leukocytes in Blood by Manual count Low 0.9-7.0 [facility] Erythrocyte distribution wid th Auto (RBC) [Ratio]on 05-25-2024 Erythrocyte distribution width (RBC) [Ratio] Erythrocyte distribution width [Ratio] by Automated count 11.0-15.0 [facility] Estimated glomerular filtrat ion rate (GFR) non- Americanon 05-25-2024 GFR/1.73 sq M.predicted among non-blacks MDRD (S/P/Bld) [Vol rate/Area] Estimated glomerular filtration rate (GFR) non- Low >=60 mL/min/1.73 m 2 [facility] Globulin Calc (S) [Mass/Vol] on 05-25-2024 Globulin (S) [Mass/Vol] Serum globulin measurement by calculation (mass/volume) [facility] Hematocrit Auto (Bld) [Volum e fraction]on 05-25-2024 Hematocrit (Bld) [Volume fraction] Hematocrit [Volume Fraction] of Blood by Automated count Critically low 42.0-54.0 [facility] Comment on above: RESULTS CALLED TO JASMIN WEBB @BY Minnie Snell [id number] Hemoglobin [Mass/volume] in Bloodon 05-25-2024 Hemoglobin (Bld) [Mass/Vol] Hemoglobin [Mass/volume] in Blood Low 14.0-18.0 [facility] Hemoglobin.gastrointestinal [Presence] in Stoolon 05-25-2024 Hemoglobin.gastrointesti nal Ql (Stl) Hemoglobin.gastrointes tinal [Presence] in Stool Abnormal [facility] INR in Platelet poor plasma by Coagulation assayon 05-25-2024 INR Coag (PPP) [Relative time] INR in Platelet poor plasma by Coagulation assay [facility] Comment on above: DESIRED INR:2.0-3.0 CONDITIONS NOT LISTED BELOW2.5-3.5 FOR PROSTHETIC HEART VALVE REPLACEMENT2.5-3.5 RECURRENT THROMBOSIS Laboratory - Chemistry and C hemistry - challengeon 05-25-2024 Bilirubin Ql (U) Negative NEGATIVE [facility] Glucose (U) [Mass/Vol] [facility] Ketones Ql (U) Negative NEGATIVE [facility] pH (U) [pH] Abnormal 5.0-9.0 [facility] Specific gravity (U) [Rel density] 1.010 1.005-1.025 [facility] Urobilinogen Qn (U) 0.2 {Raffi'U}/dL 0.2-1.0 [facility] Albumin [Mass/Vol] 2.7 g/dL Low 3.4-5.0 [facility] ALP [Catalytic activity/Vol] 332 U/L High 46-116 [facility] ALT [Catalytic activity/Vol] 142 U/L High 16-63 [facility] AST [Catalytic activity/Vol] 849 U/L Critically high 15-37 [facility] Comment on above: RESULTS CALLED TO DOM ALEXANDRE RN Bilirubin [Mass/Vol] 1.2 mg/dL High 0.2-1.0 [facility] Calcium [Mass/Vol] 9.2 mg/dL 8.5-10.1 [facility] Chloride [Moles/Vol] 93 mmol/L Low 98-107 [facility] CO2 [Moles/Vol] 16.6 mmol/L Low 21.0-32.0 [facility] Creatinine [Mass/Vol] 2.97 mg/dL High 0.70-1.30 [facility] GFR/1.73 sq M.predicted MDRD (S/P/Bld) [Vol rate/Area] 25 mL/min/{1.73_m2} Low >=60 mL/min/1.73 m 2 [facility] Glucose [Mass/Vol] 137 mg/dL High 74-106 [facility] Lactate [Moles/Vol] 1.8 mmol/L 0.4-2.0 [facility] Lipase [Catalytic activity/Vol] 30.0 U/L 16.0-77.0 [facility] Potassium [Moles/Vol] 5.6 mmol/L High 3.5-5.1 [facility] Protein [Mass/Vol] 6.9 g/dL 6.4-8.2 [facility] Sodium [Moles/Vol] 124 mmol/L Critically low 136-145 [facility] Comment on above: RESULTS CALLED TO DOM ALEXANDRE RN Urea nitrogen [Mass/Vol] 52.0 mg/dL High 7.0-18.0 [facility] Urea nitrogen/Creatinine [Mass ratio] 17.5 mg/mg [facility] Laboratory - Hematology and Cell countson 05-25-2024 Lymphocytes/100 WBC (Bld) 2.0 % Low 20.5-60.0 [facility] Monocytes/100 WBC (Bld) 7.0 % 1.7-12.0 [facility] - Specimen inform ationon 05-25-2024 Appearance (U) CLEAR CLEAR [facility] Color (U) LT. YELLOW YELLOW [facility] Laboratory - Urinalysison Leukocyte esterase Test strip Ql (U) MODERATE Abnormal NEGATIVE [facility] Mucus Ql (Urine sed) NONE SEEN NONE SEEN [facility] Nitrite Ql (U) Negative NEGATIVE [facility] Protein Ql (U) 100 mg/dL Abnormal NEG/TRACE [facility] Leukocytes [#/volume] correc ronald for nucleated erythrocytes in Blood by Automated counon 05-25-2024 WBC corrected for nucl RBC Auto (Bld) [#/Vol] Leukocytes [#/volume] corrected for nucleated erythrocytes in Blood by Automated coun High 4.0-11.0 [facility] MCH Auto (RBC) [Entitic mass ]on 05-25-2024 MCH (RBC) [Entitic mass] MCH [Entitic ma ss] by Automated count 25.9-34.0 [facility] MCHC Auto (RBC) [Mass/Vol]on 05-25-2024 MCHC (RBC) [Mass/Vol] MCHC [Mass/volume] by Automated count 29.9-35.2 [facility] MCV Auto (RBC) [Entitic vol] on 05-25-2024 MCV (RBC) [Entitic vol] MCV [Entitic vol ume] by Automated count 80.0-94.0 [facility] No Panel InformationOrdered By: DIMITRI SANTOS on 05-25-2024 Blood Culture 2 [facility] Blood Culture 1 [facility] No Panel Informationon 05-25 Miscellaneous Test Comment See comment [facility] Comment on above: Specimen Source: UCC - Urine,Clean Catch - Urine CC - 200.100 Urine Bacteria SMALL #/HPF Abnormal NONE SEEN [facility] Urine Culture Reflexed YES [facility] Urine Culture Result 1 \R\ Urine Culture , Routine [facility] Urine Occult Blood MODERATE Abnormal NEGATIVE [facility] Urine Other Casts NONE SEEN #/LPF NONE SEEN [facility] Urine Other Crystals Seen #/HPF Abnormal None Seen [facility] Urine RBC 5-10 #/HPF Abnormal 0-2 [facility] Urine Squamous Epithelial Cells RARE #/LPF NONE/RARE [facility] Urine Triple Phosphate Crystals RARE [facility] Urine WBC 5-10 #/HPF Abnormal NONE SEEN [facility] Absolute Basophils (Manual) 0.00 10 3/uL 0.00-0.10 [facility] Eosinophils # (Manual) 0.00 10 3/uL 0.00-0.70 [facility] Lymphocytes # (Manual) 0.29 10 3/uL Low 1.20-3.80 [facility] Monocytes # (Manual) 1.04 10 3/uL High 0.30-0.80 [facility] Segmented Neutrophils # (Manual) 13.55 10 3/uL High 1.4-6.5 [facility] Troponin I High Sensitivity 42.9 pg/mL 4.0-76.1 [facility] Comment on above: CUT-OFF POINTS HAVE BEEN ESTABLISHED BASED ON THE FOURTHIVERSAL DEFINITION OF MYOCARDIAL INFARCTION. THE UPPERREFERENCE LIMIT [...] volume] in Blood by Automated count 9.5-13.5 [facility] Platelets Auto (Bld) [#/Vol] on 05-25-2024 Platelets (Bld) [#/Vol] Platelets [#/vol ume] in Blood by Automated count 150-450 [facility] Prothrombin time (PT)on - PT Coag (PPP) [Time] Prothrombin time (PT) High 9.0- 11.6 [facility] RBC Auto (Bld) [#/Vol]on RBC (Bld) [#/Vol] Erythrocytes [#/volume] in Blood by Automated count Low 4.70-6.10 [facility] Segmented neutrophils/100 WB C Manual cnt (Bld)on 05-25-2024 Segmented neutrophils/100 WBC (Bld) Manual blood segmented neutrophils/100 leukocytes High 43.0-75.0 [facility] Serum or plasma albumin/glob ulin mass ratioon 05-25-2024 Albumin/Globulin [Mass ratio] Serum or plasma albumin/globulin mass ratio [facility] Serum or plasma anion gap de terminationon 05-25-2024 Anion gap [Moles/Vol] Serum or plasma an ion gap determination [facility] Basophils/100 WBC Manual cnt (Bld)on 05-24-2024 Basophils/100 WBC (Bld) Basophils/100 leukocytes in Blood by Manual count Low 0.2-2.0 [facility] Eosinophils/100 WBC Manual c nt (Bld)on 05-24-2024 Eosinophils/100 WBC (Bld) Eosinophils/100 leukocytes in Blood by Manual count Low 0.9-7.0 [facility] Erythrocyte distribution wid th Auto (RBC) [Ratio]on 05-24-2024 Erythrocyte distribution width (RBC) [Ratio] Erythrocyte distribution width [Ratio] by Automated count 11.0-15.0 [facility] Estimated glomerular filtrat ion rate (GFR) non- Americanon 05-24-2024 GFR/1.73 sq M.predicted among non-blacks MDRD (S/P/Bld) [Vol rate/Area] Estimated glomerular filtration rate (GFR) non- Low >=60 mL/min/1.73 m 2 [facility] Globulin Calc (S) [Mass/Vol] on 05-24-2024 Globulin (S) [Mass/Vol] Serum globulin measurement by calculation (mass/volume) [facility] Hematocrit Auto (Bld) [Volum e fraction]on 05-24-2024 Hematocrit (Bld) [Volume fraction] Hematocrit [Volume Fraction] of Blood by Automated count Low 42.0-54.0 [facility] Hemoglobin [Mass/volume] in Bloodon 05-24-2024 Hemoglobin (Bld) [Mass/Vol] Hemoglobin [Mass/volume] in Blood Low 14.0-18.0 [facility] Laboratory - Chemistry and C hemistry - challengeon 05-24-2024 Albumin [Mass/Vol] 2.5 g/dL Low 3.4-5.0 [facility] ALP [Catalytic activity/Vol] 228 U/L High 46-116 [facility] ALT [Catalytic activity/Vol] 76 U/L High 16-63 [facility] AST [Catalytic activity/Vol] 205 U/L High 15-37 [facility] Bilirubin [Mass/Vol] 1.0 mg/dL 0.2-1.0 [facility] Calcium [Mass/Vol] 8.9 mg/dL 8.5-10.1 [facility] Chloride [Moles/Vol] 98 mmol/L 98-107 [facility] CO2 [Moles/Vol] 18.1 mmol/L Low 21.0-32.0 [facility] Creatinine [Mass/Vol] 2.36 mg/dL High 0.70-1.30 [facility] GFR/1.73 sq M.predicted MDRD (S/P/Bld) [Vol rate/Area] 32 mL/min/{1.73_m2} Low >=60 mL/min/1.73 m 2 [facility] Glucose [Mass/Vol] 137 mg/dL High 74-106 [facility] Lactate [Moles/Vol] 1.5 mmol/L 0.4-2.0 [facility] Potassium [Moles/Vol] 4.9 mmol/L 3.5-5.1 [facility] Protein [Mass/Vol] 6.3 g/dL Low 6.4-8.2 [facility] Sodium [Moles/Vol] 128 mmol/L Low 136-145 [facility] Urea nitrogen [Mass/Vol] 43.0 mg/dL High 7.0-18.0 [facility] Urea nitrogen/Creatinine [Mass ratio] 18.2 mg/mg [facility] Laboratory - Hematology and Cell countson 05-24-2024 Lymphocytes/100 WBC (Bld) 8.0 % Low 20.5-60.0 [facility] Monocytes/100 WBC (Bld) 7.0 % 1.7-12.0 [facility] Leukocytes [#/volume] correc ronald for nucleated erythrocytes in Blood by Automated counon 05-24-2024 WBC corrected for nucl RBC Auto (Bld) [#/Vol] Leukocytes [#/volume] corrected for nucleated erythrocytes in Blood by Automated coun 4.0-11.0 [facility] MCH Auto (RBC) [Entitic mass ]on 05-24-2024 MCH (RBC) [Entitic mass] MCH [Entitic ma ss] by Automated count 25.9-34.0 [facility] MCHC Auto (RBC) [Mass/Vol]on 05-24-2024 MCHC (RBC) [Mass/Vol] MCHC [Mass/volume] by Automated count 29.9-35.2 [facility] MCV Auto (RBC) [Entitic vol] on 05-24-2024 MCV (RBC) [Entitic vol] MCV [Entitic vol ume] by Automated count 80.0-94.0 [facility] No Panel Informationon 05-24 Troponin I High Sensitivity 30.5 pg/mL 4.0-76.1 [facility] Comment on above: CUT-OFF POINTS HAVE BEEN [...] Absolute Basophils (Manual) 0.00 10 3/uL 0.00-0.10 [facility] Eosinophils # (Manual) 0.00 10 3/uL 0.00-0.70 [facility] Lymphocytes # (Manual) 0.85 10 3/uL Low 1.20-3.80 [facility] Monocytes # (Manual) 0.74 10 3/uL 0.30-0.80 [facility] Segmented Neutrophils # (Manual) 9.09 10 3/uL High 1.4-6.5 [facility] Platelet mean volume Auto (B ld) [Entitic vol]on 05-24-2024 Platelet mean volume (Bld) [Entitic vol] Platelet mean volume [Entitic volume] in Blood by Automated count 9.5-13.5 [facility] Platelets Auto (Bld) [#/Vol] on 05-24-2024 Platelets (Bld) [#/Vol] Platelets [#/vol ume] in Blood by Automated count 150-450 [facility] RBC Auto (Bld) [#/Vol]on RBC (Bld) [#/Vol] Erythrocytes [#/volume] in Blood by Automated count Low 4.70-6.10 [facility] Segmented neutrophils/100 WB C Manual cnt (Bld)on 05-24-2024 Segmented neutrophils/100 WBC (Bld) Manual blood segmented neutrophils/100 leukocytes High 43.0-75.0 [facility] Serum or plasma albumin/glob ulin mass ratioon 05-24-2024 Albumin/Globulin [Mass ratio] Serum or plasma albumin/globulin mass ratio [facility] Serum or plasma anion gap de terminationon 05-24-2024 Anion gap [Moles/Vol] Serum or plasma an ion gap determination [facility] ANESon 05-19-2024 ANES -- Attestation signed by Emanuel Gregg MD at 05/19/2024 10:07 AM Emanuel Gregg MD, MPH, [facility], [facility], [facility] Interventional Cardiology Pager Email: [email or web address] Patient: Mykel Olivera Procedure Information Date/Time: 05/19/24 1130 Procedures: Coronary angiography - PC 05/12-11/08 Right heart cath Location: [facility] [employer] 3 / [facility] (Cath) Providers: Emanuel Gregg MD Clinical information reviewed: Allergies Meds Physical Exam Airway Mallampati: III TM distance: >3 FB Neck ROM: full Cardiovascular Rhythm: regular Rate: normal Dental Pulmonary Abdominal Anesthesia Plan ASA 3 (Conscious sedation) Anesthetic plan and risks discussed with patient. Use of blood products discussed with patient who. Plan discussed with attending. Additional Equipment Requests [facility] 05-19-2024 HP -- Attestation signed by Emanuel Gregg MD [...] documentation from me. Emanuel Gregg MD, MPH, [facility], [facility], [facility] Interventional Cardiology Pager Email: [email or web address] H&P reviewed. The patient is experiencing worsening SOB. The procedure was explained to the patient. The risks and benefits of the procedure were explained to the patient who showed understanding and with full capacity elected to proceed with the procedure. All questions were addressed and answered. Will proceed with RHC and Cors/Grafts Magdalene Xiong MD Cushion Padder - PGY6 [facility] NURSNOTEon 05-19-2024 NURSNOTE RN educated pt on [...] off of unit with all of belongings. [facility] Orders Onlyon 05-19-2024 Orders Only [id number] Mykel Olivera 1940 M Date Provider Department Center 05/19/2024 CASSANDRA ZEPEDA [facility] No family history on file [facility] Basophils Auto (Bld) [#/Vol] on 05-13-2024 Basophils (Bld) [#/Vol] Automated basoph il count 0.0-0.1 [facility] Basophils/100 WBC Auto (Bld) on 05-13-2024 Basophils/100 WBC (Bld) Automated basophil % 0. 2-2.0 [facility] Eosinophils/100 WBC Auto (Bl d)on 05-13-2024 Eosinophils/100 WBC (Bld) Automated eosinophil % 0.9-7.0 [facility] Erythrocyte distribution wid th Auto (RBC) [Ratio]on 05-13-2024 Erythrocyte distribution width (RBC) [Ratio] Erythrocyte distribution width [Ratio] by Automated count 11.0-15.0 [facility] Estimated glomerular filtrat ion rate (GFR) non- Americanon 05-13-2024 GFR/1.73 sq M.predicted among non-blacks MDRD (S/P/Bld) [Vol rate/Area] Estimated glomerular filtration rate (GFR) non- Low >=60 mL/min/1.73 m 2 [facility] Hematocrit Auto (Bld) [Volum e fraction]on 05-13-2024 Hematocrit (Bld) [Volume fraction] Hematocrit [Volume Fraction] of Blood by Automated count Low 42.0-54.0 [facility] Hemoglobin [Mass/volume] in Bloodon 05-13-2024 Hemoglobin (Bld) [Mass/Vol] Hemoglobin [Mass/volume] in Blood Low 14.0-18.0 [facility] Laboratory - Chemistry and C hemistry - challengeon 05-13-2024 Calcium [Mass/Vol] 9.0 mg/dL 8.5-10.1 [facility] Chloride [Moles/Vol] 103 mmol/L 98-107 [facility] CO2 [Moles/Vol] 20.9 mmol/L Low 21.0-32.0 [facility] Creatinine [Mass/Vol] 2.10 mg/dL High 0.70-1.30 [facility] GFR/1.73 sq M.predicted MDRD (S/P/Bld) [Vol rate/Area] 37 mL/min/{1.73_m2} Low >=60 mL/min/1.73 m 2 [facility] Glucose [Mass/Vol] 150 mg/dL High 74-106 [facility] Potassium [Moles/Vol] 4.1 mmol/L 3.5-5.1 [facility] Sodium [Moles/Vol] 137 mmol/L 136-145 [facility] Urea nitrogen [Mass/Vol] 37.0 mg/dL High 7.0-18.0 [facility] Urea nitrogen/Creatinine [Mass ratio] 17.6 mg/mg [facility] Laboratory - Hematology and Cell countson 05-13-2024 Immature granulocytes/100 WBC (Bld) 0.5 % 0.0-0.5 [facility] Leukocytes [#/volume] correc ronald for nucleated erythrocytes in Blood by Automated counon 05-13-2024 WBC corrected for nucl RBC Auto (Bld) [#/Vol] Leukocytes [#/volume] corrected for nucleated erythrocytes in Blood by Automated coun 4.0-11.0 [facility] Lymphocytes Auto (Bld) [#/Vo l]on 05-13-2024 Lymphocytes (Bld) [#/Vol] Lymphocytes [#/volume] in Blood by Automated count Low 1.2-3.8 [facility] Lymphocytes/100 WBC Auto (Bl d)on 05-13-2024 Lymphocytes/100 WBC (Bld) Lymphocytes/100 leukocytes in Blood by Automated count Low 20.5-60.0 [facility] MCH Auto (RBC) [Entitic mass ]on 05-13-2024 MCH (RBC) [Entitic mass] MCH [Entitic ma ss] by Automated count 25.9-34.0 [facility] MCHC Auto (RBC) [Mass/Vol]on 05-13-2024 MCHC (RBC) [Mass/Vol] MCHC [Mass/volume] by Automated count 29.9-35.2 [facility] MCV Auto (RBC) [Entitic vol] on 05-13-2024 MCV (RBC) [Entitic vol] MCV [Entitic vol ume] by Automated count High 80.0-94.0 [facility] Monocytes Auto (Bld) [#/Vol] on 05-13-2024 Monocytes (Bld) [#/Vol] Automated blood monocyte count 0.3-0.8 [facility] Monocytes/100 WBC Auto (Bld) on 05-13-2024 Monocytes/100 WBC (Bld) Automated monocyte % High 1. 7-12.0 [facility] Neutrophils Auto (Bld) [#/Vo l]on 05-13-2024 Neutrophils (Bld) [#/Vol] Neutrophils [#/volume] in Blood by Automated count 1.4-6.5 [facility] Neutrophils/100 WBC Auto (Bl d)on 05-13-2024 Neutrophils/100 WBC (Bld) Automated neutrophil % High 43.0-75.0 [facility] No Panel Informationon 05-13 Eosinophils # (Auto) 0.1 10 3/uL 0.0-0.7 [facility] Immature Granulocyte # (Auto) 0.03 10 3/uL 0.00-0.03 [facility] Platelet mean volume Auto (B ld) [Entitic vol]on 05-13-2024 Platelet mean volume (Bld) [Entitic vol] Platelet mean volume [Entitic volume] in Blood by Automated count 9.5-13.5 [facility] Platelets Auto (Bld) [#/Vol] on 05-13-2024 Platelets (Bld) [#/Vol] Platelets [#/vol ume] in Blood by Automated count 150-450 [facility] RBC Auto (Bld) [#/Vol]on RBC (Bld) [#/Vol] Erythrocytes [#/volume] in Blood by Automated count Low 4.70-6.10 [facility] Serum or plasma anion gap de terminationon 05-13-2024 Anion gap [Moles/Vol] Serum or plasma an ion gap determination [facility] 36on 05-10-2024 36 Regarding stress rose t [...] Keely and Skip to enter orders. [facility] Orders Onlyon 05-10-2024 Orders Only [id number] Mykel Olivera 1940 [place] Date Provider Department Center 05/10/2024 [id number], TANA CARD [facility] No family history on file [facility] Reminderson 04-27-2024 Reminders Reminders From: Sierra Rizzo To: LICHA - Elizabeth Venegas; Sent: 10/31/2023 09:54:34 EDT Show up: 01/05/2024 09:54:00 EDT Subject: neph tube change Due Date/Time: 01/28/2024 09:54:00 EDT Reminder/Recall Patient will be due in January 2024 for 3 month neph tube change at [facility] l/m on [facility] IR vm.SLICK Wray called back, pt sched for 02/13/24 @ 8:30am. Pt will be due in Apr 2024.LG Spoke to pt, he cannot do 05/04/24. L/m on [facility] IR sched line to sched with Kamala .SLICK Wray called back, pt sched for 05/18/24 @ 7:45am. Order faxed [phone].SLICK Normal [facility] HPon 04-19-2024 [facility] Cardiology Clinic Note Chief Complaint: Patient [...] Disp: 180 tablet, Rfl: 3 HYDROcodone-acetaminop hen (Ferriday) 5-325 mg tablet, 1 tablet as needed, [...] study 04/06/2019 (more content not included)... [facility] Office Visiton 04-19-2024 Follow-up visit [id number] Mykel Olivera Yana 1940 M Date Provider Department Center 04/19/2024 [id number], EMANUEL CARD [facility] No family history on file Level of Service:89212 SC OFFICE/OUTPATIENT ESTABLISHED MOD MDM 30 MIN [facility] Reminderson 04-12-2024 Reminders Reminders From: Sierra Rizzo To: LICHA - Recalls Venegas; Sent: 04/12/2024 09:13:14 EDT Show up: 06/27/2024 09:12:00 EST Subject: neph tube change Due Date/Time: 07/19/2024 09:12:00 EST Reminder/Recall Patient needs right neph tube change in Jul 2024, 3 mo Normal [facility] C Urineon 04-07-2024 Bacteria identified Cx [...] Locations R1: This test was performed at: [facility], [address] [place] [address], [facility]- , , Normal [facility] Comment on above: Performed By: #### 2 [id number] #### [facility] [address] [place] [address] IR nephrostomy tube chg UNon 02-13-2024 IR nephrostomy tube chg UN [facility] [place] [address] Interventional Radiology Rpt Signed Patient: Mykel Olivera MR#: [id number] : 1940 Acct:[id number] Age/Sex: 83 / M ADM Date: 02/13/24 Loc: IR Room: Type: [facility] Attending Dr: Kami Venegas MD Copies to: [...] nephrostomy tube was removed. A new 12 [place] Citizen nephrostomy tube was administered into the right renal pelvis with wire guidance. The guidewire removed and pigtail locked. Contrast administered confirming adequate position. The nephrostomy tube was secured to skin. No immediate complications. IR/IR nephrostomy tube chg UN IMPRESSION: Adequate replacement of 12 [place] Citizen right percutaneous nephrostomy tube. Impression dictated by: Declan Moreira M.D.02/13/2024 12:28 PM Dictation Location: [place] [address] Transcribed By: [facility] 02/13/24 1228 Dictated By: Declan Moreira DO 02/13/24 1223 Signed By: 02/13/24 1228 Normal [facility] UroVysion Fish and Urine Cyt o ([facility])on 02-06-2024 UVFISH & UC Diagnosis Info Invalid Interpretation Code [facility] Comment on above: Result Comment: A:Ur [...] on: 02/06/2024 16:35:49 Performed By: #### 1 [id number] #### [facility] [address] [place] [address] Ambulatory Visit Summaryon 0 02-02-2024 Ambulatory Visit Summary Ambulatory Visi t Summary RICKI OLIVERA :1940 Visit Date:02/02/2024 Ambulatory Visit Instructions Your Diagnosis Acute UTI Hx of bladder cancer Your Care Team Attending Physician - THEO CARDOSO, Kami Silver Primary Care Physician - JUAN BLACKWELL DO [...] you for choosing us for your care. [facility] UroVysion Fish and Urine Cyt o ([facility])on 07-08-2024 [facility] Method of Extraction Voided Normal [facility] Comment on above: Performed By: #### 1 [id number] #### [facility] [address] [place] [address] [facility] Number of Jars 1 Invalid Interpretation Code [facility] Comment on above: Performed By: #### 1 [id number] #### [facility] [address] [place] [address] [facility] Specimen Urine Normal [facility] Comment on above: Performed By: #### 1 [id number] #### [facility] [address] [place] [address] [facility] Type of Service Technical Only Normal [facility] Comment on above: Performed By: #### 1 [id number] #### [facility] [address] [place] [address] Reminderson 01-27-2024 Reminders Reminders From: Sierra Rizzo To: EU - Recalls Venegas; Sent: 01/27/2024 12:47:06 EDT Show up: 11/25/2024 12:46:00 EDT Subject: cysto/fish/cytol Due Date/Time: 12/20/2024 12:47:00 EDT Reminder/Recall Patient is due in January 2025 for 1 year cysto/fish/cytol, bt ck Normal [facility] Consent for Procedure/Surger yon 01-21-2024 Consent for Procedure/Surgery [id number]#[id number] 0TIFF Normal [facility] IR nephrostomy tube chg UNon 11-21-2023 IR nephrostomy tube chg UN [facility] [place] [address] Interventional Radiology Rpt Signed Patient: Mykel Olivera MR#: [id number] : 1940 Acct:[id number] Age/Sex: 83 / M ADM Date: 11/21/23 Loc: IR Room: Type: [facility] Attending Dr: Declan Moreira DO Copies [...] Declan Moreira M.D.11/21/2023 12:48 PM Dictation Location: [place] [address] Transcribed By: [facility] 11/21/23 1248 Dictated By: Declan Moreira DO 11/21/23 1239 Signed By: 11/21/23 1248 Normal [facility] CBC AND AUTO DIFFon 11-05-19 ABSOLUTE BASOPHIL 0.0 X10E9/L Normal 0.0-0.2 [facility] Comment on above: Performed By: #### C JIN, CMP, 1834-, 20697-5, FEPR, 2276-4, 2284-8, 9, TSHR #### [facility] ([id number]) [address], [address] [place] [address] ABSOLUTE NEUTROPHIL 7.3 X10E9/L High 1.5-6.6 [facility] Comment on above: Performed By: #### C IJN, CMP, 1834-1, 76037-1, FEPR, 2276-4, 2284-8, 213-9, TSHR #### [facility] ([id number]) [address] [place] [address] Basophils/100 WBC (Bld) 0.3 % Normal [facility] Comment on above: Performed By: #### C BCA, CMP, 1833-, , FEPR, 2276-4, 2283-8, 2132-03, TSHR #### [facility] ([id number]) [address], [address] [place] [address] Eosinophils (Bld) [#/Vol] 0.1 10*3/uL Normal 0.0-0.4 [facility] Comment on above: Performed By: #### C BCA, CMP, 1833-07, , FEPR, 2276-4, 2283-8, 2132-03, TSHR #### [facility] ([id number]) [address], [address] [address] Eosinophils/100 WBC (Bld) 1.2 % Normal [facility] Comment on above: Performed By: #### C BCA, CMP, 1833-07, , FEPR, 6-4, 2283-8, 2132-03, TSHR #### [facility] ([id number]) [address], [address] [address] Erythrocyte distribution width (RBC) [Ratio] 15.5 % High 11.5-15.0 [facility] Comment on above: Performed By: #### C BCA, CMP, 1833-07, , FEPR, 6-4, 2283-8, 2132-03, TSHR #### [facility] ([id number]) [address], [address] [place] [address] Hematocrit (Bld) [Volume fraction] 23.2 % Low 39-49 [facility] Comment on above: Performed By: #### C BCA, CMP, 1833-, , FEPR, 2276-4, 2284-8, 2132-03, TSHR #### [facility] ([id number]) [address], [address] [place] [address] Hemoglobin (Bld) [Mass/Vol] 7.9 g/dL Low 13.0-17.0 [facility] Comment on above: Performed By: #### C BCA, CMP, 1833-, 94229-8, FEPR, 2276-4, 2284-8, 2131-9, TSHR #### [facility] ([id number]) [address], [address] [place] [address] Lymphocytes (Bld) [#/Vol] 0.3 10*3/uL Low 1.0-3.5 [facility] Comment on above: Performed By: #### C BCA, CMP, 1833-07, , FEPR, 2276-4, 2284-8, 2132-03, TSHR #### [facility] ([id number]) [address] [address] Lymphocytes/100 WBC (Bld) 3.0 % Normal [facility] Comment on above: Performed By: #### C BCA, CMP, 1833-07, , FEPR, 2276-4, 2283-8, 2132-03, TSHR #### [facility] ([id number]) [address], [address] [address] MCH (RBC) [Entitic mass] 31.6 pg Normal 27-34 [facility] Comment on above: Performed By: #### C BCA, CMP, 1833-07, , FEPR, 2276-4, 2284-8, 9, TSHR #### [facility] ([id number]) [address], [address] [place] [address] MCHC (RBC) [Mass/Vol] 34.1 g/dL Normal 32-36 [facility] Comment on above: Performed By: #### C BCA, CMP, 1833-07, , FEPR, 2276-4, 2284-8, 2132-03, TSHR #### [facility] ([id number]) [address], [address] [place] [address] MCV (RBC) [Entitic vol] 93 fL Normal 80-100 [facility] Comment on above: Performed By: #### C BCA, CMP, 1833-, 96070-3, FEPR, 6-4, 2283-8, 2132-03, TSHR #### [facility] ([id number]) [address], [address] [place] [address] Monocytes (Bld) [#/Vol] 1.0 10*3/uL High 0-0.9 [facility] Comment on above: Performed By: #### C BCA, CMP, 1833-, 68335-8, FEPR, 2275-4, 8, 2132-03, TSHR #### [facility] ([id number]) [address], [address] [place] [address] Monocytes/100 WBC (Bld) 11.5 % Normal [facility] Comment on above: Performed By: #### C BCA, CMP, 1833-, , FEPR, 2275-4, 2283-8, 2132-03, TSHR #### [facility] ([id number]) [address], [address] [place] [address] Neutrophils/100 WBC (Bld) 84.0 % Normal [facility] Comment on above: Performed By: #### C BCA, CMP, 1833-, 03981-6, FEPR, 6-4, 2283-8, 2132-03, TSHR #### [facility] ([id number]) [address], [address] [place] [address] Platelet mean volume (Bld) [Entitic vol] 7.8 fL Normal 7-12 [facility] Comment on above: Performed By: #### C BCA, CMP, 1833-, 35036-7, FEPR, 2276-4, 2284-8, 2131-9, TSHR #### [facility] ([id number]) [address], [address] [place] [address] Platelets (Bld) [#/Vol] 190 10*3/uL Normal 150-450 [facility] Comment on above: Performed By: #### C BCA, CMP, 1833-, 14165-4, FEPR, 2276-4, 2284-8, 2131-9, TSHR #### [facility] ([id number]) [address], [address] [address] POLYCHROMASIA 1+ Abnormal NONE [facility] Comment on above: Performed By: #### C BCA, CMP, 1833-, 42587-3, FEPR, 2276-4, 2284-8, 2132-03, TSHR #### [facility] ([id number]) [address], [address] [place] [address] RBC COUNT 2.51 X10E12/L Low 4.10-5.70 [facility] Comment on above: Performed By: #### C BCA, CMP, 1833-, 89602-4, FEPR, 2276-4, 2284-8, 2131-9, TSHR #### [facility] ([id number]) [address], [address] [place] [address] WBC (Bld) [#/Vol] 8.7 10*3/uL Normal 4.0-11.0 [facility] Comment on above: Performed By: #### C BCA, CMP, 1833-, 49752-8, FEPR, 2276-4, 2284-8, 2131-9, TSHR #### [facility] ([id number]) [address], [address] [place] [address] COMPREHENSIVE METABOLIC PANE Zoran 11-05-2023 Albumin [Mass/Vol] 2.6 g/dL Low 3.2-5.3 [facility] Comment on above: Performed By: #### C BCA, CMP, 1834-1, 81857-7, FEPR, 2276-4, 2284-8, 2131-9, TSHR #### [facility] ([id number]) [address], [address] [place] [address] ALP [Catalytic activity/Vol] 268 U/L High 39-130 [facility] Comment on above: Performed By: #### C BCA, CMP, 4-1, 56285-3, FEPR, 2276-4, 2284-8, 2131-9, TSHR #### [facility] ([id number]) [address], [address] [place] [address] ALT [Catalytic activity/Vol] 69 U/L High 0-40 [facility] Comment on above: Performed By: #### C BCA, CMP, 1833-1, 06621-2, FEPR, 2276-4, 2284-8, 2131-9, TSHR #### [facility] ([id number]) [address], [address] [place] [address] Anion gap [Moles/Vol] 9 mmol/L Normal 5-15 [facility] Comment on above: Performed By: #### C BCA, CMP, 1833-1, 42415-3, FEPR, 2276-4, 2284-8, 2131-9, TSHR #### [facility] ([id number]) [address], [address] [place] [address] AST [Catalytic activity/Vol] 87 U/L High 0-41 [facility] Comment on above: Performed By: #### C BCA, CMP, 1834-1, 51861-7, FEPR, 2276-4, 2284-8, 2-9, TSHR #### [facility] ([id number]) [address], [address] [place] [address] Bilirubin [Mass/Vol] 1.7 mg/dL High 0.3-1.2 [facility] Comment on above: Performed By: #### C BCA, CMP, 1833-, 04962-9, FEPR, 2276-4, 2284-8, 2131-9, TSHR #### [facility] ([id number]) [address], [address] [place] [address] Calcium [Mass/Vol] 8.5 mg/dL Normal 8.5-10.5 [facility] Comment on above: Performed By: #### C BCA, CMP, 1833-07, , FEPR, 2276-4, 2284-8, 2132-03, TSHR #### [facility] ([id number]) [address], [address] [place] [address] Chloride [Moles/Vol] 93 mmol/L Low 98-109 [facility] Comment on above: Performed By: #### C BCA, CMP, 1833-07, , FEPR, 2276-4, 2284-8, 2132-03, TSHR #### [facility] ([id number]) [address], [address] [place] [address] CO2 [Moles/Vol] 28 mmol/L Normal 22-32 [facility] Comment on above: Performed By: #### C BCA, CMP, 1833-07, , FEPR, 2276-4, 2284-8, 9, TSHR #### [facility] ([id number]) [address], [address] [place] [address] Creatinine [Mass/Vol] 1.64 mg/dL High 0.60-1.30 [facility] Comment on above: Result Comment: METH OD TRACEABLE TO IDMS STANDARD Performed By: #### C BCA, CMP, 1833-07, , FEPR, 2276-4, 2284-8, 2132-03, TSHR #### [facility] ([id number]) [address], [facility] [address] [place] [address] GFR/1.73 sq M.predicted among non-blacks MDRD (S/P/Bld) [Vol rate/Area] 42 mL/min/{1.73_m2} Low >59 [facility] Comment on above: Result Comment: Reported eGFR is based on the CKD-EPI 2020 equation that does not use a race coefficient. Performed By: #### C BCA, CMP, 1833-, 01509-7, FEPR, 2276-4, 2283-8, 2132-03, TSHR #### [facility] ([id number]) [address], [address] [place] [address] Glucose [Mass/Vol] 106 mg/dL High 65-99 [facility] Comment on above: Performed By: #### C BCA, CMP, 1833-07, , FEPR, 2276-4, 2283-8, 2132-03, TSHR #### [facility] ([id number]) [address] [address] Potassium [Moles/Vol] 3.8 mmol/L Normal 3.5-5.0 [facility] Comment on above: Performed By: #### C BCA, CMP, 1833-, , FEPR, 2276-4, 2283-8, 2132-03, TSHR #### [facility] ([id number]) [address], [address] [place] [address] Protein [Mass/Vol] 5.7 g/dL Low 6.0-8.0 [facility] Comment on above: Performed By: #### C BCA, CMP, 1833-, 72219-4, FEPR, 2276-4, 2284-8, 9, TSHR #### [facility] ([id number]) [address], [address] [place] [address] Sodium [Moles/Vol] 130 mmol/L Low 134-146 [facility] Comment on above: Performed By: #### C BCA, CMP, 1833-1, 96815-6, FEPR, 6-4, 2283-8, 2132-03, TSHR #### [facility] ([id number]) [address], [address] [place] [address] Urea nitrogen [Mass/Vol] 35 mg/dL High 5-27 [facility] Comment on above: Performed By: #### C BCA, CMP, 1833-, , FEPR, 2275-4, 2283-8, 2132-03, TSHR #### [facility] ([id number]) [address], [address] [place] [address] MAGNESIUMon 11-05-2023 Magnesium [Mass/Vol] 2.0 mg/dL Normal 1.8-2.6 [facility] Comment on above: Performed By: #### C BCA, CMP, 1833-, , FEPR, 2275-4, 8, 2132-03, TSHR #### [facility] ([id number]) [address], [address] [place] [address] PROTIME AND INRon 11-05-2023 INR Coag (PPP) [Relative time] 1.2 {INR} High 0.8-1.1 [facility] Comment on above: Performed By: #### C BCA, CMP, 1833-, 20640-6, FEPR, 2275-4, 8, 2132-03, TSHR #### [facility] ([id number]) [address], [address] [place] [address] PT Coag (PPP) [Time] 13.5 s High 9.8-13.2 [facility] Comment on above: Performed By: #### C BCA, CMP, 1834-1, 21525-1, FEPR, 2276-4, 2284-8, 2132-9, TSHR #### [facility] ([id number]) [address], [address] [place] [address] Amorphous urine sedimenton 0 11-03-2023 Amorphous sediment LM Ql (Urine sed) RARE [facility] Automated epithelial cells c ount in urine sediment (number/area)on 11-03-2023 Epithelial cells Auto (Urine sed) [#/Area] FEW #/LPF NONE/RARE [facility] Automated leukocytes count i n urine sediment (number/area)on 11-03-2023 WBC Auto (Urine sed) [#/Area] 5-10 #/HPF 0-2 [facility] Automated urine sediment [place] cium oxalate crystal count by microscopy (number/high powon 11-03-2023 Calcium oxalate crystals LM.HPF (Urine sed) [#/Area] RARE [facility] Automated urine specific gra vity by refractometryon 11-03-2023 Specific gravity Refractometry automated (U) [Rel density] 1.020 1.005-1.025 [facility] Bilirubin Auto test strip (U ) [Mass/Vol]on 11-03-2023 Bilirubin (U) [Mass/Vol] Negative NEGATIVE [facility] Casts typing in urine sedime nt by light microscopyon 11-03-2023 Casts LM Nom (Urine sed) NONE SEEN #/LPF NONE S EEN [facility] Color Auto (U)on 11-03-2023 Color (U) LT. YELLOW YELLOW [facility] Erythrocyte distribution wid th Auto (RBC) [Ratio]on 11-03-2023 Erythrocyte distribution width (RBC) [Ratio] 13.7 % 11.0-15.0 [facility] [place] Estimated glomerular filtrat ion rate (GFR) non- Americanon 11-03-2023 GFR/1.73 sq M.predicted among non-blacks MDRD (S/P/Bld) [Vol rate/Area] 25 mL/min/{1.73_m2} >=60 [facility] Hematocrit Auto (Bld) [Volum e fraction]on 11-03-2023 Hematocrit (Bld) [Volume fraction] 34.3 % 42.0-54.0 [facility] Hemoglobin [Mass/volume] in Bloodon 11-03-2023 Hemoglobin (Bld) [Mass/Vol] 11.0 g/dL 14.0-18.0 [facility] Ketones Auto test strip (U) [Mass/Vol]on 11-03-2023 Ketones (U) [Mass/Vol] Negative NEGATIVE [facility] - [facility] and C hemistry - challengeon 11-03-2023 Albumin [Mass/Vol] 3.5 g/dL 3.4-5.0 [facility] Calcium [Mass/Vol] 9.0 mg/dL 8.5-10.1 [facility] Chloride [Moles/Vol] 99 mmol/L 98-107 [facility] CO2 [Moles/Vol] 22.2 mmol/L 21.0-32.0 [facility] Creatinine [Mass/Vol] 2.48 mg/dL 0.70-1.30 [facility] GFR/1.73 sq M.predicted MDRD (S/P/Bld) [Vol rate/Area] 31 mL/min/{1.73_m2} >=60 [facility] Glucose [Mass/Vol] 137 mg/dL 74-106 [facility] Magnesium [Mass/Vol] 1.5 mg/dL 1.8-2.4 [facility] Potassium [Moles/Vol] 4.8 mmol/L 3.5-5.1 [facility] Sodium [Moles/Vol] 133 mmol/L 136-145 [facility] Urea nitrogen [Mass/Vol] 42.0 mg/dL 7.0-18.0 [facility] Urea nitrogen/Creatinine [Mass ratio] 16.9 mg/mg [facility] Leukocytes [#/volume] correc ronald for nucleated erythrocytes in Blood by Automated counon 11-03-2023 WBC corrected for nucl RBC Auto (Bld) [#/Vol] 5.9 10 3/uL 4.0-11.0 [facility] MCH Auto (RBC) [Entitic mass ]on 11-03-2023 MCH (RBC) [Entitic mass] 30.0 pg 25.9-34.0 [facility] MCHC Auto (RBC) [Mass/Vol]on 11-03-2023 MCHC (RBC) [Mass/Vol] 32.1 g/dL 29.9-35.2 [facility] MCV Auto (RBC) [Entitic vol] on 11-03-2023 MCV (RBC) [Entitic vol] 93.5 fL 80.0-94.0 [facility] Microalbumin [Mass/volume] i n Urineon 11-03-2023 Albumin DL <= 20 mg/L (U) [Mass/Vol] 20.1 mg/dL <=30.0 [facility] Mucus LM Ql (Urine sed)on Mucus Ql (Urine sed) NONE SEEN NONE SEEN [facility] No Panel Informationon 11-02 Phosphorus Level 3.9 mg/dL 2.6-4.7 [facility] Urine Random Creatinine 54.23 mg/dL 20.0 0-300.0 0 [facility] Platelet mean volume Auto (B ld) [Entitic vol]on 11-03-2023 Platelet mean volume (Bld) [Entitic vol] 10.3 fL 9.5-13.5 [facility] Platelets Auto (Bld) [#/Vol] on 11-03-2023 Platelets (Bld) [#/Vol] 144 10 3/uL 150-450 [facility] Protein Auto test strip (U) [Mass/Vol]on 11-03-2023 Protein (U) [Mass/Vol] 100 mg/dL NEG/TRACE [facility] RBC Auto (Bld) [#/Vol]on RBC (Bld) [#/Vol] 3.67 10 6/uL 4.70-6.10 [facility] Serum or plasma anion gap de terminationon 11-03-2023 Anion gap [Moles/Vol] 16.6 mmol/L Fi [facility] Specific gravity Auto test s trip (U) [Rel density]on 11-03-2023 Specific gravity (U) [Rel density] CLEAR CLEAR [facility] Urine bacteria detection by automated methodon 11-03-2023 Bacteria Auto Ql (U) LARGE #/HPF NONE SEEN [facility] Urine glucose measurement by test strip (mass/volume)on 11-03-2023 Glucose Test strip (U) [Mass/Vol] Negative NEGATIVE [facility] Urine hemoglobin detection b y automated test stripon 11-03-2023 Hemoglobin Auto test strip Ql (U) LARGE NEGATIVE [facility] Urine microalbumin/creatinin e mass ratioon 11-03-2023 Albumin/Creatinine DL <= 20 mg/L (U) [Mass ratio] 370.6 mg/g 0.0-29.9 [facility] Comment on above: NO MICROALBUMINURIA 0-29 MG/GCLINICAL MICROALBUMINURIA 30-300 MG/GMACROALBUMINURIA >300 MG/G Urine nitrite detection by a utomated test stripon 11-03-2023 Nitrite Auto test strip Ql (U) MODERATE NEGATIVE [facility] Nitrite Auto test strip Ql (U) Positive NEGATIVE [facility] Urine sediment crystal ident ification by light microscopyon 11-03-2023 Crystals LM Nom (Urine sed) Seen #/HPF None Seen [facility] Urine sediment leukocyte cou nt by microscopy (number/high power field)on 11-03-2023 WBC LM.HPF (Urine sed) [#/Area] 10-20 #/HPF NONE SEEN [facility] Urobilinogen Auto test strip (U) [Mass/Vol]on 11-03-2023 Urobilinogen Qn (U) 0.2 {Raffi'U}/dL 0.2-1.0 [facility] pH Auto test strip (U)on pH (U) 7.5 [pH] 5.0-9.0 [facility] Physician Orderon 10-31-2023 Physician Order [id number] 0TIFF Normal [facility] Reminderson 10-31-2023 Reminders - From: Sierra Rizzo To: EU - Recalls Venegas; Cc: Sierra Rizzo; Sent: 07/08/2023 09:01:46 EST Show up: 08/28/2023 09:01:00 EST Subject: Neph tube change Due Date/Time: 09/22/2023 09:01:00 EST Reminder/Recall Patient is due in September 2023 for 3 month RT neph tube change at [facility] Patient had neph tube changed in Jul by Dr. Holland due to problems. Pt will be due in October 2023.LG Spoke to pt, he is available all month. l/m on [facility] interventional sched vm to sched.LG Kamala called back, pt sched for 11/20/23 @ 8am, Order faxed . new thread. Normal [facility] Office Visiton 10-07-2023 Follow-up visit [id number] Mykel Olivera 1940 M Date Provider Department Center 10/07/2023 [place] [facility] No family history on file Level of Service:75236 [place] OFFICE/OUTPATIENT ESTABLISHED LOW MDM 20 MIN Normal [facility] Physician Orderon 08-06-2023 Physician Order [id number] 0TIFF Normal [facility] Capillary blood glucose cecilia urement by glucometer (mass/volume)Ordered By: PROVIDER TEMP on 08-05-2023 Glucose [Mass/Vol] 138 mg/dL Normal [facility] Comment on above: Random Glucose Refer ence Range is dependent on time and content of last meal. Glucose of more than 200 mg/dL in a nonstressed, ambulatory subject supports the diagnosis of Diabetes Mellitus. Result Comment: [facility] Glucose Reference Range is dependent on time and content of last meal. Glucose of more than 200 mg/dL in a nonstressed, ambulatory subject supports the diagnosis of Diabetes Mellitus. PERFORMED BY: [address] [address] PATHOLOGIST FACTORY SUPERINTENDENT CAMI RAYA M.D. Performed By: #### G LULS #### Point of Care testing , ECG 12 lead ECGon 08-05-2023 ECG 12 lead ECG [facility] Main [place] [id number] Electrocardiograph Report Signed Patient: Mykel Olivera MR#: [id number] : 1940 Acct:[id number] Age/Sex: 83 / M ADM Date: 08/05/23 Loc: ER Room: Type: [facility] Attending Dr: Ordering Provider: Jose D Hercules [...] available Confirmed by JOSE D HERCULES MD ([id number]) on 08/05/2023 5:39:43 AM Referred By: Electronically Signed By:JOSE D HERCULES MD Transcribed By: MUS Signed By Jose D Hercules Jr, MD [id number] Normal [facility] RAD - MISCon 07-29-2023 RAD - MIS [id number] 0TIFF Normal [facility] IR nephrostomy tube chg UNon 07-25-2023 [place] [address] Interventional Radiology Rpt Signed Patient: Mykel Olivera MR#: [id number] : 1940 Acct:[id number] Age/Sex: 83 / M ADM Date: 07/25/23 Loc: IR Room: Type: [facility] Attending Dr: Kami Venegas MD Copies to: [...] nephrostomy tube. The tube was removed. 12 [place] Citizen RIGHT nephrostomy tube was administered with a wire guidance. The tube is in adequate position and was locked. Contrast was administered confirming adequate position. No immediate complications. IR/IR nephrostomy tube chg UN IMPRESSION: Adequate exchange of 12 [place] Citizen RIGHT nephrostomy tube. Impression dictated by: Declan Moreira M.D.07/25/2023 11:15 AM Dictation Location: [place] [address] Transcribed By: [facility] 07/25/23 111 Dictated By: Declan Moreira DO 07/25/23 1109 Signed By: 07/25/23 1115 Normal [facility] Physician Orderon 07-08-2023 Physician Order [id number] 0TIFF Normal [facility] BUNon 12-24-2022 Urea nitrogen [Mass/Vol] 40.0 mg/dL Critically high 7.0-18 .0 [facility] Comment on above: Performed By: #### H H #### [facility] [address] [place] [address] Dr. Lilly Cordova CREATININEon 12-24-2022 Creatinine [Mass/Vol] 2.33 mg/dL Critically high 0.70-1.30 [facility] Comment on above: Performed By: #### H H #### [facility] [address] [place] [address] Dr. Lilly Cordova EGFR-AF BURMESE 33 mL/min/1.73m2 Critically low >=60 [facility] Comment on above: Performed By: #### H H #### [facility] [address] [place] [address] Dr. Lilly Cordova EGFR-NON AF BURMESE 27 mL/min/1.73m2 Critically low >=60 [facility] Comment on above: Performed By: #### H H #### [facility] [address] [place] [address] ABD/PELVIS WO CONon [...] by: GUSTAVO BUSTILLO Date: 2022-12-24 10:21 Normal [facility] XR KUB 1 VIEWon 11-12-2022 XR KUB [...] by: BETZY JAMES Date: 2022-11-12 10:01 Normal [facility] CULTURE URINEon 11-07-2022 CULTURE URINE Isolate 1 [...] F Trimethoprim/Sulfameth oxazole <=20 S F Normal [facility] Comment on above: Performed By: #### H H #### [facility] [address] [place] [address] Dr. Lilly Cordova PTH INTACTon 11-05-2022 PTH, Intact 46 pg/mL Normal 15-65 [facility] Comment on above: Performed By: #### P THINT #### [facility] [address] [place] [address] Dr. Lilly Cordova ALBUMINon 11-04-2022 Albumin [Mass/Vol] 3.6 g/dL Normal 3.4-5.0 [facility] Comment on above: Performed By: #### B MP, PHOS, MG, ALB, URIC #### [facility] [address] [place] [address] Dr. Lilly Cordova HEMOGRAM AND PLATELon 2022 Hematocrit (Bld) [Volume fraction] 34.7 % Critically low 42.0-54.0 [facility] Comment on above: Performed By: #### H H #### [facility] [address] [place] [address] Dr. Lilly Cordova Hemoglobin (Bld) [Mass/Vol] 11.7 g/dL Critically low 14.0-18.0 [facility] Comment on above: Performed By: #### H H #### [facility] [address] [place] [address] Dr. Lilly Cordova MCH (RBC) [Entitic mass] 31.0 pg Normal 25.9-34.0 [facility] Comment on above: Performed By: #### H H #### [facility] [address] [place] [address] Dr. Lilly Cordova MCHC (RBC) [Mass/Vol] 33.7 g/dL Normal 29.9-35.2 [facility] Comment on above: Performed By: #### H H #### [facility] [address] [place] [address] Dr. Lilly Cordova MCV (RBC) [Entitic vol] 91.8 fL Normal 80.0-94.0 [facility] Comment on above: Performed By: #### H H #### [facility] [address] [place] [address] Dr. Lilly Cordova PLT 129 103/ul Critically low 150-450 [facility] Comment on above: Performed By: #### H H #### [facility] [address] [place] [address] Dr. Lilly Cordova RBC 3.78 106/ul Critically low 4.70-6.10 [facility] Comment on above: Performed By: #### H H #### [facility] [address] [place] [address] Dr. Lilly Cordova WBC 6.2 103/ul Normal 4.0-11.0 [facility] Comment on above: Performed By: #### H H #### [facility] [address] [place] [address] Dr. Lilly Cordova MAGNESIUMon 11-04-2022 Magnesium [Mass/Vol] 1.5 mg/dL Critically low 1.8-2.4 [facility] Comment on above: Performed By: #### B MP, PHOS, MG, ALB, URIC #### [facility] [address] [place] [address] Dr. Lilly Cordova MICROALB CREAT RATIO RANDOMo n 11-04-2022 mALB 13.5 mg/L Normal <=30.0 [facility] Comment on above: Performed By: #### M CRR #### [facility] [address] [place] [address] Dr. Lilly Cordova MALB CR RATIO 238.9 mg/g Critically high 0.0-29.9 [facility] Comment on above: Performed By: #### M CRR #### [facility] [address] [place] [address] Dr. Lilly Cordova MALB CR RATIO RANGE SEE BELOW Normal [facility] Comment on above: Result Comment: NO M ICROALBUMINURIA 0-29 MG/G CLINICAL MICROALBUMINURIA 30-300 MG/G MACROALBUMINURIA >300 MG/G Performed By: #### M CRR #### [facility] [address] [place] [address] Dr. Lilly Cordova URINE CREAT 56.52 mg/dL Normal 20.00-300.0 0 [facility] Comment on above: Performed By: #### M CRR #### [facility] [address] [place] [address] Dr. Lilly Cordova PHOSPHORUSon 11-04-2022 Phosphate [Mass/Vol] 3.0 mg/dL Normal 2.6-4.7 [facility] Comment on above: Performed By: #### B MP, PHOS, MG, ALB, URIC #### [facility] [address] [place] [address] Dr. Lilly Cordova PROF CHEM 8 (BAS METB)on Anion gap [Moles/Vol] 13.0 mmol/L Normal [facility] Comment on above: Performed By: #### B MP, PHOS, MG, ALB, URIC #### [facility] [address] [place] [address] Dr. Lilly Cordova Calcium [Mass/Vol] 9.1 mg/dL Normal 8.5-10.1 [facility] Comment on above: Performed By: #### B MP, PHOS, MG, ALB, URIC #### [facility] [address] [place] [address] Dr. Lilly Cordova Chloride [Moles/Vol] 102 mmol/L Normal 98-107 [facility] Comment on above: Performed By: #### B MP, PHOS, MG, ALB, URIC #### [facility] [address] [place] [address] Dr. Lilly Cordova CO2 [Moles/Vol] 25.0 mmol/L Normal 21.0-32.0 [facility] Comment on above: Performed By: #### B MP, PHOS, MG, ALB, URIC #### [facility] [address] [place] [address] Dr. Lilly Cordova Creatinine [Mass/Vol] 1.79 mg/dL Critically high 0.70-1.30 [facility] Comment on above: Performed By: #### B MP, PHOS, MG, ALB, URIC #### [facility] [address] [place] [address] Dr. Lilly Cordova EGFR-AF BURMESE 45 mL/min/1.73m2 Critically low >=60 [facility] Comment on above: Performed By: #### B MP, PHOS, MG, ALB, URIC #### [facility] [address] [place] [address] Dr. Lilly Cordova EGFR-NON AF BURMESE 37 mL/min/1.73m2 Critically low >=60 [facility] Comment on above: Performed By: #### B MP, PHOS, MG, ALB, URIC #### [facility] [address] [place] [address] Dr. Lilly Cordova Glucose [Mass/Vol] 106 mg/dL Normal 74-106 [facility] Comment on above: Performed By: #### B MP, PHOS, MG, ALB, URIC #### [facility] [address] [place] [address] Dr. Lilly Cordova Potassium [Moles/Vol] 5.0 mmol/L Normal 3.5-5.1 [facility] Comment on above: Performed By: #### B MP, PHOS, MG, ALB, URIC #### [facility] [address] [place] [address] Dr. Lilly Cordova Sodium [Moles/Vol] 135 mmol/L Critically low 136-145 Th e [facility] Comment on above: Performed By: #### B MP, PHOS, MG, ALB, URIC #### [facility] [address] [place] [address] Dr. Lilly Cordova Urea nitrogen [Mass/Vol] 35.0 mg/dL Critically high 7.0-18 .0 [facility] Comment on above: Performed By: #### B MP, PHOS, MG, ALB, URIC #### [facility] [address] [place] [address] Dr. Lilly Cordova Urea nitrogen/Creatinine [Mass ratio] 19.6 mg/mg Normal [facility] Comment on above: Performed By: #### B MP, PHOS, MG, ALB, URIC #### [facility] [address] [place] [address] Dr. Lilly Cordova UA (CLEAN/CATCH) CUSTOMER BUSINESS MANAGER/MICRO I F IND.on 11-04-2022 Bilirubin Ql (U) Negative Normal NEGATIVE [facility] Comment on above: Performed By: #### H H #### [facility] [address] [place] [address] Dr. Lilly Cordova Clarity (U) CLEAR Normal CLEAR [facility] Comment on above: Performed By: #### H H #### [facility] [address] [place] [address] Dr. Lilly Cordova Color (U) LT. YELLOW Normal YELLOW [facility] Comment on above: Performed By: #### H H #### [facility] [address] [place] [address] Dr. Lilly Cordova Glucose Ql (U) Negative Normal NEGATIVE [facility] Comment on above: Performed By: #### H H #### [facility] [address] [place] [address] Dr. Lilly Cordova Hemoglobin Ql (U) MODERATE Abnormal NEGATIVE [facility] Comment on above: Performed By: #### H H #### [facility] [address] [place] [address] Dr. Lilly Cordova Ketones Ql (U) Negative Normal NEGATIVE [facility] Comment on above: Performed By: #### H H #### [facility] [address] [place] [address] Dr. Lilly Cordova LEUKOCYTES MODERATE Abnormal NEGATIVE [facility] Comment on above: Performed By: #### H H #### [facility] [address] [place] [address] Dr. Lilly Cordova Nitrite Ql (U) Positive Abnormal NEGATIVE [facility] Comment on above: Performed By: #### H H #### [facility] [address] [place] [address] Dr. Lilly Cordova pH (U) 7.5 [pH] Normal 5-9 [facility] Comment on above: Performed By: #### H H #### [facility] [address] [place] [address] Dr. Lilly Cordova SPEC GRAVITY 1.010 Normal 1.005-<=1.0 25 [facility] Comment on above: Performed By: #### H H #### [facility] [address] [place] [address] Dr. Lilly Cordova UA PROTEIN 30 mg/dl Abnormal NEGATIVE/ TRACE [facility] Comment on above: Performed By: #### H H #### [facility] [address] [place] [address] Dr. Lilly Cordova UR MICRO IND INDICATED Normal [facility] Comment on above: Performed By: #### H H #### [facility] [address] [place] [address] Dr. Lilly Cordova Urobilinogen Qn (U) 0.2 {Raffi'U}/dL Normal 0.2 - 1. 0 [facility] Comment on above: Performed By: #### H H #### [facility] [address] [place] [address] Dr. Lilly Cordova URIC ACID SERUMon 11-04-2022 Urate [Mass/Vol] 5.2 mg/dL Normal 3.5-7.2 [facility] Comment on above: Performed By: #### B MP, PHOS, MG, ALB, URIC #### [facility] [address] [place] [address] Dr. Lilly Cordova URINE MICROSCOPIC ONLYon BACTERIA TRACE Abnormal NONE SEEN The [facility] Comment on above: Performed By: #### H H #### [facility] [address] [place] [address] Dr. Lilly Cordova Bacteria identified Cx Nom (U) INDICATED Normal [facility] Comment on above: Performed By: #### H H #### [facility] [address] [place] [address] Dr. Lilly Cordova CAST NONE SEEN Normal NONE SEEN [facility] Comment on above: Performed By: #### H H #### [facility] [address] [place] [address] Dr. Lilly Cordova Crystals LM Nom (Urine sed) NONE SEEN Normal NONE SEEN [facility] Comment on above: Performed By: #### H H #### [facility] [address] [place] [address] Dr. Lilly Cordova Epithelial cells LM Ql (Urine sed) NONE SEEN Normal NONE SEEN /RARE The [facility] Comment on above: Performed By: #### H H #### [facility] [address] [place] [address] Dr. Lilly Cordova MUCOUS NONE SEEN Normal NONE SEEN The [facility] Comment on above: Performed By: #### H H #### [facility] [address] [place] [address] Dr. Lilly Cordova RBC 2-5 Abnormal 0-2 [facility] Comment on above: Performed By: #### H H #### [facility] [address] [place] [address] Dr. Lilly Cordova WBC 10-20 Abnormal NONE SEEN [facility] Comment on above: Performed By: #### H H #### [facility] [address] [place] [address] Dr. Lilly Cordova VITAMIN D 25 OHon 11-04-2022 VIT D 25-OH 58.3 ng/mL Normal [facility] Comment on above: Performed By: #### H H #### [facility] [address] [place] [address] Dr. iLlly Cordova VIT D RANGES SEE BELOW Normal [facility] Comment on above: Result Comment: <20 ng/mL Vit D deficient 20 - <30 ng/mL Vit D insufficient 30 - 100 ng/mL Vit D sufficient >100 ng/mL Potential Toxicity Performed By: #### H H #### [facility] [address] [place], [place] [id number] Dr. Lilly Cordova HEMOGLOBINon 07-10-2022 Hemoglobin (Bld) [Mass/Vol] 11.6 g/dL Critically low 14.0-18.0 [facility] Comment on above: Performed By: #### H GB #### [facility] [address] [place] [address] Dr. Lilly Cordova NM STRESS/REST MULTIon 06-03 NM STRESS/REST MULTI Patient: MYKEL OLIVERA Exam Date: 06/03/2022 : 1940 Gender:M Ordering : ZOILA ROQUE [facility] Admission #: [id number] Family : Order #: [id number] CLICK HERE TO VIEW EXAM RADIOLOGY REPORT [...] Holland MD on 06/04/2022 at 07:50 Normal [facility] PROF CHEM 8 (BAS METB)on Anion gap [Moles/Vol] 11.2 mmol/L Normal [facility] Comment on above: Performed By: #### H H #### [facility] [address] [place] [address] Dr. Lilly Cordova Calcium [Mass/Vol] 8.8 mg/dL Normal 8.5-10.1 [facility] Comment on above: Performed By: #### H H #### [facility] [address] [place] [address] Dr. Lilly Cordova Chloride [Moles/Vol] 103 mmol/L Normal 98-107 [facility] Comment on above: Performed By: #### H H #### [facility] [address] [place] [address] Dr. Lilly Cordova CO2 [Moles/Vol] 25.2 mmol/L Normal 21.0-32.0 [facility] Comment on above: Performed By: #### H H #### [facility] [address] [address] [address] Lilly Cordova Creatinine [Mass/Vol] 1.87 mg/dL Critically high 0.70-1.30 [facility] Comment on above: Performed By: #### H H #### [facility] [address] [place] [address] Dr. Lilly Cordova EGFR-AF BURMESE 42 mL/min/1.73m2 Critically low >=60 [facility] Comment on above: Performed By: #### H H #### [facility] [address] [address] [address] Lilly Cordova EGFR-NON AF BURMESE 35 mL/min/1.73m2 Critically low >=60 [facility] Comment on above: Performed By: #### H H #### [facility] [address] [address] [address] Lilly Cordova Glucose [Mass/Vol] 126 mg/dL Critically high 74-106 [facility] Comment on above: Performed By: #### H H #### [facility] [address] [address] [address] Lilly Cordova Potassium [Moles/Vol] 4.4 mmol/L Normal 3.5-5.1 [facility] Comment on above: Performed By: #### H H #### [facility] [address] [address] [address] Lilly Cordova Sodium [Moles/Vol] 135 mmol/L Critically low 136-145 [facility] Comment on above: Performed By: #### H H #### [facility] [address] [address] [address] Lilly Cordova Urea nitrogen [Mass/Vol] 32.0 mg/dL Critically high 7.0-18 .0 [facility] Comment on above: Performed By: #### H H #### [facility] [address] [address] [address] Lilly Cordova Urea nitrogen/Creatinine [Mass ratio] 17.1 mg/mg Normal [facility] Comment on above: Performed By: #### H H #### [facility] [address] [address] [address] Lilly Cordova PTH INTACTon 05-07-2022 PTH, Intact 28 pg/mL Normal 15-65 [facility] Comment on above: Performed By: #### P THINT #### [facility] [address] [address] [address] Lilly Cordova HEMOGRAM AND PLATELon 2021 Hematocrit (Bld) [Volume fraction] 34.2 % Critically low 42.0-54.0 [facility] Comment on above: Performed By: #### H H #### [facility] [address] [address] [address] Lilly Cordova Hemoglobin (Bld) [Mass/Vol] 11.5 g/dL Critically low 14.0-18.0 [facility] Comment on above: Performed By: #### H H #### [facility] [address] [place] [address] Dr. Lilly Cordova MCH (RBC) [Entitic mass] 31.3 pg Normal 25.9-34.0 [facility] Comment on above: Performed By: #### H H #### [facility] [address] [place] [address] Dr. Lilly Cordova MCHC (RBC) [Mass/Vol] 33.6 g/dL Normal 29.9-35.2 [facility] Comment on above: Performed By: #### H H #### [facility] [address] [place] [address] Dr. Lilly Cordova MCV (RBC) [Entitic vol] 93.2 fL Normal 80.0-94.0 [facility] Comment on above: Performed By: #### H H #### [facility] [address] [place] [address] Dr. Lilly Cordova PLT 130 103/ul Critically low 150-450 [facility] Comment on above: Performed By: #### H H #### [facility] [address] [place] [address] Dr. Lilly Cordova RBC 3.67 106/ul Critically low 4.70-6.10 [facility] Comment on above: Performed By: #### H H #### [facility] [address] [place] [address] Dr. Lilly Cordova WBC 6.5 103/ul Normal 4.0-11.0 [facility] Comment on above: Performed By: #### H H #### [facility] [address] [place] [address] Dr. Lilly Cordova MAGNESIUMon 05-06-2022 Magnesium [Mass/Vol] 1.4 mg/dL Critically low 1.8-2.4 [facility] Comment on above: Performed By: #### P THINT #### [facility] [address] [place] [address] Dr. Lilly Cordova PHOSPHORUSon 05-06-2022 Phosphate [Mass/Vol] 3.0 mg/dL Normal 2.6-4.7 [facility] Comment on above: Performed By: #### P THINT #### [facility] [address] [address] [address] Lilly Cordova PROF CHEM 8 (BAS METB)on Anion gap [Moles/Vol] 10.5 mmol/L Normal [facility] Comment on above: Performed By: #### P THINT #### [facility] [address] [place] [address] Dr. Lilly Cordova Calcium [Mass/Vol] 9.1 mg/dL Normal 8.5-10.1 [facility] Comment on above: Performed By: #### P THINT #### [facility] [address] [place] [address] Dr. Lilly Cordova Chloride [Moles/Vol] 103 mmol/L Normal 98-107 [facility] Comment on above: Performed By: #### P THINT #### [facility] [address] [place] [address] Dr. Lilly Cordova CO2 [Moles/Vol] 27.9 mmol/L Normal 21.0-32.0 [facility] Comment on above: Performed By: #### P THINT #### [facility] [address] [place] [address] Dr. Lilly Cordova Creatinine [Mass/Vol] 1.77 mg/dL Critically high 0.70-1.30 [facility] Comment on above: Performed By: #### P THINT #### [facility] [address] [place] [address] Dr. Lilly Cordova EGFR-AF BURMESE 45 mL/min/1.73m2 Critically low >=60 [facility] Comment on above: Performed By: #### P THINT #### [facility] [address] [place], [place] [id number] Dr. Lilly Cordova EGFR-NON AF BURMESE 37 mL/min/1.73m2 Critically low >=60 [facility] Comment on above: Performed By: #### P THINT #### [facility] [address] [address] [address] Lilly Cordova Glucose [Mass/Vol] 98 mg/dL Normal 74-106 [facility] Comment on above: Performed By: #### P THINT #### [facility] [address] [address] [address] Lilly Cordova Potassium [Moles/Vol] 5.4 mmol/L Critically high 3.5-5.1 [facility] Comment on above: Performed By: #### P THINT #### [facility] [address] [address] [address] Lilly Cordova Sodium [Moles/Vol] 136 mmol/L Normal 136-145 [facility] Comment on above: Performed By: #### P THINT #### [facility] [address] [address] [address] Lilly Cordova Urea nitrogen [Mass/Vol] 30.0 mg/dL Critically high 7.0-18 .0 [facility] Comment on above: Performed By: #### P THINT #### [facility] [address] [place] [address] Dr. Lilly Cordova Urea nitrogen/Creatinine [Mass ratio] 16.9 mg/mg Normal [facility] Comment on above: Performed By: #### P THINT #### [facility] [address] [address] [address] Lilly Cordova URIC ACID SERUMon 05-06-2022 Urate [Mass/Vol] 5.2 mg/dL Normal 3.5-7.2 [facility] Comment on above: Performed By: #### P THINT #### [facility] [address] [place] [address] Dr. Lilly Cordova VITAMIN D 25 OHon 05-06-2022 VIT D 25-OH 56.4 ng/mL Normal [facility] Comment on above: Performed By: #### V ITAD #### [facility] [address] [place], [place] [address] Dr. Lilly Cordova VIT D RANGES SEE BELOW Normal [facility] Comment on above: Result Comment: <20 ng/mL Vit D deficient 20 - <30 ng/mL Vit D insufficient 30 - 100 ng/mL Vit D sufficient >100 ng/mL Potential Toxicity Performed By: #### V ITAD #### [facility] [address] [place], [place] [address] Dr. Lilly Cordova ECHOCARDIO M/2D COMPLETEon 0 04-16-2022 ECHOCARDIO M/2D COMPLETE Patient: MYKEL OLIVERA Exam Date: 04/16/2022 : 1940 Gender:M Ordering : LEANNA CROSS Admission #: [id number] Family : DR BENSON HERCULES D.O. Order #: [id number] CLICK HERE TO VIEW EXAM ECHOCARDIOGRAM REPORT [...] Gregg M.D. on 04/18/2022 at 16:09 Normal [facility] Vital Signs Date Time Vital Sign Value Performing Clinician Facility 06-09-2024 08:23-0500 Body height 182.88 cm [facility] 06-09-2024 08:23-0500 Body mass index (BMI) [Ratio] 20.5 kg/m2 [facility] 06-09-2024 08:23-0500 Body weight 68.49 kg [facility] 06-09-2024 08:23-0500 Diastolic blood pressure 80 mm[Hg] [facility] 06-09-2024 08:23-0500 Heart rate 93 /min [facility] 06-09-2024 08:23-0500 SaO2% (BldA) [Mass fraction] 98 % [facility] 06-09-2024 08:23-0500 Systolic blood pressure 148 mm[Hg] [facility] 04-02-2024 09:59-0400 Body height 182.88 cm DO Benson Ball Work Phone: [facility] 04-02-2024 09:59-0400 Body mass index (BMI) [Ratio] 22.2 kg/m2 DO Benson Ball Work Phone: [facility] 04-02-2024 09:59-0400 Body weight 74.44 kg DO Benson Ball Work Phone: [facility] 04-02-2024 09:59-0400 Diastolic blood pressure 76 mm[Hg] DO Benson Ball Work Phone: [facility] 04-02-2024 09:59-0400 Heart rate 85 /min DO Benson Ball Work Phone: [facility] 04-02-2024 09:59-0400 Respiratory rate 12 /min DO Benson Ball Work Phone: [facility] 04-02-2024 09:59-0400 Systolic blood pressure 176 mm[Hg] DO Benson Ball Work Phone: [facility] 12-31-2023 10:49-0400 Body height 182.88 cm DO Benson Ball Work Phone: [facility] 12-31-2023 10:49-0400 Body mass index (BMI) [Ratio] 23.3 kg/m2 DO Benson Ball Work Phone: [facility] 12-31-2023 10:49-0400 Body weight 78.24 kg DO Benson Ball Work Phone: [facility] 12-31-2023 10:49-0400 Diastolic blood pressure 80 mm[Hg] DO Benson Ball Work Phone: [facility] 12-31-2023 10:49-0400 Heart rate 86 /min DO Benson Ball Work Phone: [facility] 12-31-2023 10:49-0400 Respiratory rate 12 /min DO Benson Ball Work Phone: [facility] 12-31-2023 10:49-0400 Systolic blood pressure 193 mm[Hg] DO Benson Ball Work Phone: [facility] 09-30-2023 10:26-0500 Body height 182.88 cm DO Benson Ball Work Phone: [facility] 09-30-2023 10:26-0500 Body mass index (BMI) [Ratio] 23.6 kg/m2 DO Benson Ball Work Phone: [facility] 09-30-2023 10:26-0500 Body weight 79.09 kg DO Benson Ball Work Phone: [facility] 09-30-2023 10:26-0500 Diastolic blood pressure 65 mm[Hg] DO Benson Ball Work Phone: [facility] 09-30-2023 10:26-0500 Heart rate 93 /min DO Benson Ball Work Phone: [facility] 09-30-2023 10:26-0500 Respiratory rate 12 /min DO Benson Ball Work Phone: [facility] 09-30-2023 10:26-0500 Systolic blood pressure 167 mm[Hg] DO Benson Ball Work Phone: [facility] 08-05-2023 05:03-0500 Diastolic blood pressure 77 mm[Hg] DO Benson Ball Work Phone: [facility] 08-05-2023 05:03-0500 Heart rate 97 /min DO Benson Ball Work Phone: [facility] 08-05-2023 05:03-0500 Respiratory rate 18 /min DO Benson Ball Work Phone: [facility] 08-05-2023 05:03-0500 SaO2% (BldA) [Mass fraction] 99 % DO Benson Ball Work Phone: [facility] 08-05-2023 05:03-0500 Systolic blood pressure 173 mm[Hg] DO Benson Ball Work Phone: [facility] 08-05-2023 00:36-0500 Body height 182.88 cm DO Benson Ball Work Phone: [facility] 08-05-2023 00:36-0500 Body temperature 97.5 [degF] DO Benson Ball Work Phone: [facility] 08-05-2023 00:36-0500 Body weight 80.9 kg DO Benson Ball Work Phone: [facility] 07-29-2023 10:30-0500 Body height 177.8 cm Benson Ball Other [facility] [employer] Other 07-29-2023 10:30-0500 Body mass index (BMI) [Ratio] 25.57 kg/m2 Benson Ball Other [employer] Other 07-29-2023 10:30-0500 Body weight 80.83 kg Benson Ball Other [employer] Other 07-29-2023 10:30-0500 Diastolic blood pressure 73 mm[Hg] Benson Ball Other [employer] Other 07-29-2023 10:30-0500 Respiratory rate 12 /min Benson Ball Other [employer] Other 07-29-2023 10:30-0500 Systolic blood pressure 191 mm[Hg] Benson Ball Other [employer] Other 04-25-2023 11:30-0400 Body height 177.8 cm Benson Ball Other [employer] Other 04-25-2023 11:30-0400 Body mass index (BMI) [Ratio] 25.42 kg/m2 Benson Ball Other [employer] Other 04-25-2023 11:30-0400 Body weight 80.38 kg Benson Ball Other [employer] Other 04-25-2023 11:30-0400 Diastolic blood pressure 80 mm[Hg] Benson Ball Other [employer] Other 04-25-2023 11:30-0400 Respiratory rate 12 /min Benson Ball Other [employer] Other 04-25-2023 11:30-0400 Systolic blood pressure 150 mm[Hg] Benson Ball Other [employer] Other 01-23-2023 11:00-0400 Body height 177.8 cm Benson Ball Other [employer] Other 01-23-2023 11:00-0400 Body mass index (BMI) [Ratio] 25.57 kg/m2 Benson Ball Other [employer] Other 01-23-2023 11:00-0400 Body weight 80.83 kg Benson Ball Other [employer] Other 01-23-2023 11:00-0400 Diastolic blood pressure 57 mm[Hg] Benson Ball Other [employer] Other 01-23-2023 11:00-0400 Respiratory rate 12 /min Benson Ball Other [employer] Other 01-23-2023 11:00-0400 Systolic blood pressure 146 mm[Hg] Benson Ball Other [employer] Other 10-23-2022 12:00-0400 Body height 177.8 cm Benson Ball Other [employer] Other 10-23-2022 12:00-0400 Body mass index (BMI) [Ratio] 25.82 kg/m2 Benson Ball Other [employer] Other 10-23-2022 12:00-0400 Body weight 81.65 kg Benson Ball Other [employer] Other 10-23-2022 12:00-0400 Diastolic blood pressure 72 mm[Hg] Benson Ball Other [employer] Other 10-23-2022 12:00-0400 Respiratory rate 12 /min Benson Ball Other [employer] Other 10-23-2022 12:00-0400 Systolic blood pressure 158 mm[Hg] Benson Ball Other [employer] Other 07-03-2022 11:14-0500 Body weight 0 kg DO Benson Ball Work Phone: [facility] 03-26-2022 15:15-0400 Body weight 0 kg DO Benson Ball Work Phone: [facility] 12-19-2021 10:04-0400 Body weight 0 kg DO Benson Ball Work Phone: [facility] Encounters Encounter Date Encounter Type Care Provider Facility Start: 08-11-2024 Evaluation and management of inpatient GILBERT OVITT [facility] Start: 08-10-2024 Evaluation and management of inpatient GILBERT MENDOZA [facility] Start: 08-10-2024 Evaluation and management of inpatient DANO [facility] Start: 08-10-2024 Evaluation and management of inpatient DANO [facility] Start: 08-09-2024 Evaluation and management of inpatient KATHLEEN DYLANSAMSON [facility] Start: 08-09-2024 End: 08-12-2024 Evaluation and management of inpatient FAMILIA RAY [facility] Start: 08-02-2024 End: 08-02-2024 ambulatory Benson Hercules DO Work Phone: [facility] Work Phone: Start: 08-02-2024 End: 08-02-2024 Patient encounter procedure Benson Hercules DO Work Phone: [facility] Work Phone: Start: 07-29-2024 Patient encounter procedure Benson Hercules DO Work Phone: [facility] Start: 07-12-2024 End: 07-12-2024 Lab Drop off Kami VENEGAS [facility] Start: 07-12-2024 End: 07-12-2024 ambulatory Kami VENEGAS Facility:[facility] Start: 07-12-2024 End: 07-12-2024 Patient encounter procedure Kami VENEGAS [facility] Start: 06-21-2024 Non-patient / Non-visit Sonya isabella Diomedes DO Work Phone: [facility] Work Phone: Start: 06-17-2024 End: 06-17-2024 Lab Drop off Sarah Shah [facility] Start: 06-17-2024 End: 06-17-2024 ambulatory Sarah Shah Facility:[facility] Start: 06-17-2024 End: 06-17-2024 Patient encounter procedure Kami VENEGAS [facility] Start: 06-15-2024 End: 06-15-2024 Documentation procedure Xiomara aguiar [facility] Start: 06-15-2024 End: 06-15-2024 Telephone encounter Khushi silver [facility] Start: 06-14-2024 End: 06-14-2024 Admission to same day surgery center Benson Hercules DO Work Phone: [facility] Work Phone: Start: 06-14-2024 End: 06-14-2024 ambulatory Benson Hercules Facility:[facility] Start: 06-11-2024 Non-patient / Non-visit Benjam in Ball DO Work Phone: [facility] Work Phone: Start: 06-09-2024 End: 06-09-2024 ambulatory AB [facility] Start: 06-09-2024 End: 06-09-2024 ambulatory [facility] Work Phone: Start: 06-09-2024 End: 06-09-2024 Patient encounter procedure [facility] Work Phone: Start: 06-07-2024 Non-patient / Non-visit [facility] Work Phone: Start: 05-30-2024 End: 06-13-2024 Telephone encounter Caprice Gil Bruce silver Start: 05-26-2024 End: 06-04-2024 Evaluation and management of inpatient UNKNOWN PHYSICIAN [facility] Start: 05-25-2024 Non-patient / Non-visit [facility] Work Phone: Start: 05-25-2024 ambulatory [facility] Start: 05-25-2024 Non-patient / Non-visit [facility] Work Phone: Start: 05-24-2024 Non-patient / Non-visit [facility] Work Phone: Start: 05-24-2024 Non-patient / Non-visit [facility] Work Phone: Start: 05-19-2024 End: 05-19-2024 ambulatory [facility] Start: 05-13-2024 Non-patient / Non-visit [facility] Work Phone: Start: 04-19-2024 End: 04-19-2024 [facility] Start: 04-02-2024 End: 04-02-2024 ambulatory DO Benson Ball Work Phone: [facility] Work Phone: Start: 04-02-2024 End: 04-02-2024 Patient encounter procedure DO Benson Ball Work Phone: [facility] Work Phone: Start: 04-01-2024 End: 04-01-2024 ambulatory Kami VENEGAS Facility:[facility] Start: 04-01-2024 End: 04-01-2024 Lab Drop off Kami VENEGAS [facility] Start: 04-01-2024 End: 04-01-2024 ambulatory Kami VENEGAS Facility:[facility] Start: 04-01-2024 End: 04-01-2024 Patient encounter procedure Kami VENEGAS [facility] Start: 02-13-2024 End: 02-13-2024 Admission to same day surgery center DO Benson Ball Work Phone: [facility] Work Phone: Start: 02-13-2024 End: 02-13-2024 ambulatory DO Benson Ball Work Phone: [facility] Work Phone: Start: 02-09-2024 End: 02-09-2024 ambulatory Kami VENEGAS [id number] Start: 02-02-2024 End: 02-02-2024 ambulatory Kami VENEGAS Facility:[facility] Start: 02-02-2024 End: 02-02-2024 Lab Drop off Kami VENEGAS [facility] Start: 02-02-2024 End: 02-02-2024 ambulatory Kami VEENGAS Facility:[facility] Start: 02-02-2024 End: 02-02-2024 Patient encounter procedure Kami R VENEGAS [facility] Start: 12-31-2023 End: 12-31-2023 ambulatory DO Benson Ball Work Phone: [facility] Work Phone: Start: 12-31-2023 End: 12-31-2023 Patient encounter procedure DO Benson Ball Work Phone: [facility] Work Phone: Start: 11-21-2023 End: 11-21-2023 Admission to same day surgery center DO Benson Ball Work Phone: [facility] Work Phone: Start: 11-21-2023 End: 11-21-2023 ambulatory DO Benson Ball Work Phone: [facility] Work Phone: Start: 11-03-2023 Non-patient / Non-visit DO Boone Hercules Work Phone: [facility] [employer] [facility] [employer] Work Phone: Start: 10-08-2023 Non-patient / Non-visit DO Boone Hercules Work Phone: [facility] Work Phone: Start: 10-07-2023 End: 10-07-2023 ambulatory ARCADIO NUÑEZ [facility] Start: 09-30-2023 End: 09-30-2023 Patient encounter procedure DO Benson Hercules Work Phone: [facility] Work Phone: Start: 08-14-2023 End: 08-14-2023 Emergency department patient visit LANEY DOWLING [facility] Start: 08-05-2023 End: 08-05-2023 ambulatory Benson Hercules Other [employer] Other Start: 08-05-2023 Telephone encounter Benson Hercules KARIN [facility] Start: 08-05-2023 End: 08-05-2023 Emergency department patient visit DO Benson Hercules Work Phone: [facility] Work Phone: Start: 08-01-2023 End: 08-01-2023 ambulatory Benson Hercules Other [employer] Other Start: 08-01-2023 Telephone encounter Benson Hercules KARIN G [facility] Start: 07-29-2023 End: 07-29-2023 ambulatory Benson Hercules Other [employer] Other Start: 07-29-2023 Patient encounter procedure Benson Hercules [facility] Start: 07-29-2023 Telephone encounter Benson Hercules [facility] Start: 07-25-2023 End: 07-25-2023 Admission to same day surgery center DO Benson Ball Work Phone: [facility] Work Phone: Start: 07-25-2023 End: 07-25-2023 ambulatory DO Benson Ball Work Phone: [facility] Work Phone: Start: 05-28-2023 End: 05-28-2023 ambulatory Benson Ball Other [employer] Other Start: 05-28-2023 Telephone encounter Benson Ball [facility] Start: 04-25-2023 End: 04-25-2023 ambulatory Benson Ball Other [employer] Other Start: 04-25-2023 Office outpatient vi sit 25 minutes Benson Ball [facility] Start: 03-28-2023 End: 03-28-2023 ambulatory Benson Ball Other [employer] Other Start: 03-28-2023 Telephone encounter Benson Ball FP [facility] Start: 02-11-2023 End: 02-11-2023 ambulatory Benson Ball Other [employer] Other Start: 02-11-2023 Telephone encounter Benson Ball [facility] Start: 01-29-2023 End: 01-29-2023 ambulatory Benson Ball Other [employer] Other Start: 01-29-2023 Telephone encounter Benson Ball [facility] Start: 01-23-2023 End: 01-23-2023 ambulatory Benson Ball Other [employer] Other Start: 01-23-2023 Office outpatient vi sit 25 minutes Benson Ball [facility] Start: 01-21-2023 End: 01-21-2023 Admission to same day surgery center DO Benson Ball Work Phone: [facility] Work Phone: Start: 01-21-2023 End: 01-21-2023 ambulatory DO Benson Hercules Work Phone: [facility] Work Phone: Start: 01-13-2023 End: 01-13-2023 ambulatory Benson Hercules Other [employer] Other Start: 01-13-2023 Telephone encounter Benson Diomedes [facility] Start: 12-25-2022 End: 12-25-2022 ambulatory Benson Hercules Other [employer] Other Start: 12-25-2022 Telephone encounter Benson Diomedes [facility] Start: 12-24-2022 Telephone encounter Benson Diomedes [facility] Start: 12-24-2022 End: 12-25-[address] KAMI VENEGAS . [employer] Other Start: 12-09-2022 Telephone encounter Benson Hercules [facility] Start: 12-09-2022 End: 12-09-[address] KAMI VENEGAS . [employer] Other Start: 12-05-2022 End: 12-05-2022 ambulatory Benson Hercules Other [employer] Other Start: 12-05-2022 Telephone encounter Benson Diomedes [facility] Start: 12-03-2022 End: 12-03-2022 Patient encounter procedure Kami VENEGAS [facility] Start: 11-12-2022 End: 11-13-[address] BENSON HERCULES Facility: Start: 11-06-2022 End: 11-06-2022 ambulatory Benson Diomedes Other [employer] Other Start: 11-06-2022 Telephone encounter Benson Hercules [facility] Start: 11-04-2022 End: 11-04-2022 Lab Drop off Kami VENEGAS [facility] Start: 11-04-2022 End: 11-05-[address] RUTLEDGE [facility] [employer] [facility] [employer] Other Start: 11-04-2022 Telephone encounter Benson Hercules [facility] Start: 11-04-2022 End: 11-04-2022 Patient encounter procedure Kami VENEGAS [facility] Start: 10-31-2022 End: 11-01-[address] BENSON HERCULES Facility: Start: 10-24-2022 Telephone encounter Benson Hercules [facility] Start: 10-24-2022 End: 10-25-[address] BENSON HERCULES [facility] [employer] Other Start: 10-23-2022 End: 10-23-2022 ambulatory Benson Hercules Other [employer] Other Start: 10-23-2022 Office outpatient vi sit [address] [facility] Start: 10-21-2022 End: 10-21-2022 Lab Drop off Kami VENEGAS [facility] Start: 10-21-2022 End: 10-21-2022 Patient encounter procedure XXXX NONE [facility] Start: 10-14-2022 End: 10-14-2022 Admission to same day surgery center DO Benson Hercules Work Phone: [facility] Work Phone: Start: 10-14-2022 End: 10-14-2022 ambulatory DO Benson Hercules Work Phone: [facility] Work Phone: Start: 07-23-2022 End: 07-23-2022 Admission to same day surgery center DO Benson Hercules Work Phone: [facility] Work Phone: Start: 07-10-2022 End: 07-11-[address] EMANUEL GREGG Facility:[facility] Start: 06-19-2022 End: 06-19-2022 Lab Drop off CHARLENE BAILON [facility] Start: 06-19-2022 End: 06-19-2022 Patient encounter procedure Farideh MeyerJosefina Gong [facility] Start: 06-03-2022 End: 06-04-[address] KANNAN HOLLAND Facility:[facility] Start: 05-14-2022 End: 05-15-[address] GAETANO FIELD Facility:[facility] Start: 05-06-2022 End: 05-07-[address] BENSON HERCULES Facility:[facility] Start: 04-29-2022 End: 04-29-[address] BENSON HERCULES Facility:[facility] Start: 04-26-2022 End: 04-26-2022 Patient encounter procedure Kami VENEGAS [facility] Start: 04-16-2022 End: 04-17-[address] BENSON HERCULES Facility:[facility] Start: 04-08-2022 End: 04-08-2022 Patient encounter procedure Kami [facility]ENEGAS [facility] Start: 04-05-2022 End: 04-05-2022 Admission to same day surgery center DO Benson Hercules Work Phone: [facility] Start: 01-02-2022 End: 01-02-2022 Admission to same day surgery center DO Benson Hercules Work Phone: [facility] Start: 11-21-2021 End: 11-21-2021 Patient encounter procedure Farideh MeyerJosefina Musakian [facility] Start: 11-02-2021 End: 11-02-2021 Patient encounter procedure Kami Silver VENEGAS [facility] Start: 10-22-2021 Adult health examination Carlin Hercules Other [employer] Other Start: 09-27-2020 End: 10-12-2020 Patient encounter procedure RICHIE ISABELLE Facility:[facility] Procedures Date Procedure Procedure Detail Performing Clinician Start: 06-14-2024 Replacement of nephr ostomy tube Benson Ball DO Work Phone: Start: 06-14-2024 Maintenance of tube Boone abby Ball DO Work Phone: Start: 05-26-2024 Adult depression scr eening assessment Caprice Omari Start: 05-25-2024 Blood Culture 1 Start: 05-25-2024 [...] 4 Kami VENEGAS Start: 06-16-2014 Lithotripsy Kami BABAK STEENMarisol Comment on above: RT ESWL * 06/16/2014 , 07/11/2016 Start: 06-01-2009 Replacement of stent Tunde VENEGAS Comment on above: 06/01/2009* cysto, st ent change, fulguration of bladder lesions 12/07/2009* cysto, right stent change, fulguration of bladder lesions Cysto, right stent change * 04/26/10, 10/03/11, 04/02/12, 02/04/13, 09/10/12, 07/15/13, 05/26/14, 09/29/14, 03/09/15, 08/03/15, 01/18/16, 06/13/16, 10/31/16, 05/01/17, 11/13/17 Start: 03-02-2009 Cystoscopy Kami HILLIARD ENIOMarisol Comment on above: 03/02/2009, 09/11/09, 03/05/10 Start: [...] Td Vaccines (2 - Td or Tdap) [facility] Start: 05-31-2025 Tobacco Screening Tobacco Screening [facility] Start: 05-26-2025 Depression Screening Depression Screening [facility] Start: 06-18-2024 End: 06-18-2024 Patient encounter procedure 06/18/2024 9:00 AM EST Office Visit Radha Trujillo [facility] [address] [place] [phone] Art Durán MD [address] [facility] [address] [place] [address] Radha Trujillo [facility] Start: 03-28-2024 COVID-19 Vaccine ( season) COVID-19 Vaccine ( season) [facility] Start: 03-28-2024 Influenza vaccination Influenza Vaccine [facility] Start: 10-14-2022 Maintenance of tube [facility] Start: 07-22-2016 Administration of varicella zoster vaccine Zoster (Shingles) Vaccine (2 of 3) [facility] Start: 2007 Fall Risk Screening Fall Risk Screening [facility] Patient referral [facility] Work Phone: Immunizations Immunization Date Immunization Notes Care Provider Leanna matamoros 04-25-2023 influenza, high dose seasonal, preservative-free Benson Hercules Other [employer] Other 04-25-2023 influenza virus vaccine, unspecified formulation DO Benson Diomedes Work Phone: [facility] 04-24-2022 Influenza Vaccine, Quadrivalent, Adjuvanted [facility] 04-24-2022 influenza virus vaccine, split virus (incl. purified surface antigen) Benson Hercules Other [employer] Other 04-24-2022 influenza virus vaccine, unspecified formulation DO Benson Diomedes Work Phone: [facility] 05-31-2021 influenza, high dose seasonal, preservative-[facility] 04-25-2021 influenza virus vaccine, split virus (incl. purified surface antigen) Benson Hercules Other [employer] Other 04-25-2021 influenza virus vaccine, unspecified formulation DO Besnon Diomedes Work Phone: [facility] 09-28-2020 COVID-19 Vaccine Moderna - Documentation Purposes Only Benson Hercules Other [facility] 05-22-2020 influenza, high dose seasonal, preservative-free Caprice Lenoir [facility] 05-17-2020 Influenza Vaccine, Quadrivalent, Adjuvanted [facility] 05-17-2020 influenza virus vaccine, split virus (incl. purified surface antigen) Benson Hercules Other [facility] [employer] Other 05-17-2020 influenza virus vaccine, unspecified formulation DO Benson Hercules Work Phone: [facility] 05-19-2019 influenza virus vaccine, split virus (incl. purified surface antigen) Benson Hercules Other [facility] [employer] Other 05-19-2019 influenza virus vaccine, unspecified formulation DO Benson Hercules Work Phone: [facility] 05-01-2018 influenza virus vaccine, split virus (incl. purified surface antigen) Benson Hercules Other [facility] [employer] Other 05-01-2018 influenza virus vaccine, unspecified formulation DO [employer] Work Phone: [facility] 05-01-2018 Seasonal trivalent influenza vaccine, adjuvanted, preservative free [facility] 05-01-2018 tetanus and diphther ia toxoids, adsorbed, preservative free, for adult use (2 Lf of tetanus toxoid and 2 Lf of diphtheria toxoid) [facility] 05-01-2018 tetanus and diphther ia toxoids, adsorbed, preservative free, for adult use (5 Lf of tetanus toxoid and 2 Lf of diphtheria toxoid) DO [employer] Work Phone: [facility] 05-01-2018 tetanus toxoid, redu maria de jesus diphtheria toxoid, and acellular pertussis vaccine, adsorbed Benson Hercules Other [facility] [employer] Other 05-14-2017 influenza virus vaccine, split virus (incl. purified surface antigen) Benson Hercules Other [employer] Other 05-14-2017 influenza virus vaccine, unspecified formulation DO Benson Hercules Work Phone: [facility] 05-14-2017 Influenza, injectabl e, [facility]in [place] Canine Kidney, preservative free, quadrivalent [facility] 05-27-2016 influenza, high dose seasonal, preservative-free [facility] 05-27-2016 zoster vaccine, live Caprice Omari [facility] 05-27-2016 zoster vaccine, unspecified formulation [facility] 05-01-2016 pneumococcal conjuga te vaccine, 13 valent Benson Hercules Other [facility] 05-12-2015 influenza, high dose seasonal, preservative-free Caprice [facility] 02-11-2007 pneumococcal polysaccharide vaccine, 23 valent Benson Hercules Other [facility] Payers Date Payer Category Payer Medicare HMO [employer] [id number] 2023 Unknown [id number] 1 2023 Self-pay [id number] 1959 Private Health Insurance [id number] 1942 Unknown [id number] 2.16.840.1.189387.3.579.2.647 1942 Unknown [id number] 2.16.840.1.132735.3.579.2.593 1942 Unknown [id number] 2.16.840.1.614272.3.579.2.593 1942 Unknown [id number] 2.16.840.1.407255.3.579.2.593 1942 Unknown [id number] 2.16.840.1.448068.3.579.2.593 1942 Unknown [id number] 2.16.840.1.311324.3.579.2.593 1942 Unknown [id number] 2.16.840.1.347907.3.579.2.593 1942 Unknown [id number] 2.16.840.1.671425.3.579.2.593 1942 Unknown [id number] 2.16.840.1.745919.3.579.2.593 1942 Unknown [id number] 2.16.840.1.135128.3.579.2.593 1942 Unknown [id number] 2.16.840.1.467542.3.579.2.593 1942 Unknown [id number] 2.16.840.1.584457.3.579.2.593 1942 Unknown [id number] 2.16.840.1.328045.3.579.2.593 1942 Unknown [id number] 2.16.840.1.327362.3.579.2.593 1942 Unknown [id number] 2.16.840.1.948021.3.579.2.593 1942 Unknown [id number] 2.16.840.1.259544.3.579.2.727 1942 Unknown [id number] 2.16.840.1.925260.3.579.2.727 1942 Unknown [id number] 2.16.840.1.491898.3.579.2.727 1942 Unknown [id number] 2.16.840.1.150620.3.579.2.727 1942 Unknown [id number] 2.16.840.1.782261.3.579.2.727 1942 Unknown [id number] 2.16.840.1.910076.3.579.2.128 6 1942 Unknown [id number] 2.16.840.1.276300.3.579.2.128 6 1942 Unknown [id number] 2.16.840.1.671888.3.579.2.727 1942 Unknown [id number] 2..840.1.907585.3.579.2.727 1942 Unknown [id number] 2.16.840.1.419903.3.579.2.727 1942 Unknown [id number] 2.840.1.508390.3.579.2.727 Medicare Medicare Outpatient [id number] Medicare Medicare [id number] Private Health Insurance [id number] Private Health Insurance [employer] [id number] Unknown [id number] 2.840.1.421855.3.579.2.531 Unknown [id number] 2.840.1.985588.3.579.2.531 Unknown [id number] 2.840.1.962903.3.579.2.531 Unknown [id number] 2.840.1.036116.3.579.2.531 Unknown [id number] 2.840.1.349191.3.579.2.531 Social History Date Type Detail Facility Tobacco smoking status [facility] Start: 01-06-2019 End: 05-26-2024 Sex Assigned At Male [facility] Start: 12-30-2017 End: 04-29-2023 Tobacco smoking status NHIS Never smoked tobacco (finding) [facility] Start: 1940 Sex Assigned At Male [facility] Tobacco smoking status No Smokin g Status Entered [facility] Tobacco smoking status No Smokin g Status Entered [facility] Start: 08-05-2023 End: 08-05-2023 Tobacco smoking status NHIS Ex-smoker (finding) [facility] Start: 06-09-2024 End: 08-02-2024 Sex Male (finding) [facility] History of tobacco use Current smoker [facility] History of tobacco use [facility] Start: 05-26-2024 Tobacco use and exposure Smokeless tobacco non-user [facility] Start: 05-26-2024 End: 06-01-2024 Alcoholic beverage intake Current drinker of alcohol (finding) [facility] [employer] [facility] Start: 01-06-2019 End: 05-26-2024 History of Social function [facility] Has the [employer], or [employer] threatened to shut off services in your home in past 12Mo No [facility] How often to you hav e a drink containing alcohol? Monthly or less [facility] How many standard drinks containing alcohol do you have on a typical day? 1 or 2 [facility] How often do you hav e 6 or more drinks on 1 occasion? Never [facility] Adolescent depressio n screening assessment 0 [facility] Start: 1940 Sex assigned at Not on file P [employer] [facility] Goals Date Patient Goal Desired Activity /State Personal health goal Comment on above: Formatting of this n ote might be different from the original. Evaluation of progress towards goal: Progressing towards safe transition from hospital Mental Status Date Assessment Result Facility [employer] [facility] Clinical Notes 11-02-2021 to 08-12-2024 Telephone Encounter - Khushi Jun - 06/15/2024 12:45 PM ESTTelephone Encounter - Khushi Jun - 06/15/2024 12:45 PM Renee Fagan RN - 06/15/2024 9:19 AM EST Note Date & Type Note Facility 08-12-2024 Note Occupational Therapy Occupational Therapy Evaluation Patient Name: Mykel Olivera : 1940 Today's Date: 08/12/2024 Time in: 1051 Time out: 1114 General Subjective: 84yoM presents to ED s/p fall while attempting to mount horse on fell onto back. Pt with worsening back pain over several days. Pt also with increasing drainage over nephrostomy site. Pt sustained T12 compression fx with retropulsion of fx fragments. Pt presented to ED on 08/09 2o worsening pain. OT Diagnosis: Decreased independence in functional tasks s/p fall, T 12 fx. Family/Caregiver Present: No ( arrived at end of session.) RN ok for pt to be seen at this time. Pt semi-fowlers upon arrival and agreeable to session. Pt completed functional tasks and functional ambulation. Pt was returned to semi-fowlers with call light and needs in reach. RN aware of pt performance. 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) Hematuria Hyperlipidemia type II IFG (impaired fasting glucose) Ischemic cardiomyopathy Left carotid stenosis Lumbar spondylosis Mucopurulent chronic bronchitis (CMS/HCC) Obstruction of nephrostomy tube (CMS/HCC) Paroxysmal atrial fibrillation (CMS/HCC) Stage 4 chronic kidney disease (CMS/HCC) Bigeminy Chest pain Melena Fall from horse T12 compression fracture, initial encounter (CMS/HCC) Fall from horse, initial encounter Hydronephrosis of right kidney Moderate protein-calorie malnutrition (CMS/HCC) Past Medical History: Diagnosis Date Allergies Arthritis Atrial fibrillation (CMS/HCC) Bladder problem Cancer (CMS/HCC) Carotid stenosis CHF (congestive heart failure) (CMS/HCC) Coronary artery disease Hyperlipidemia Hypertension Ischemic cardiomyopathy Kidney problem Myocardial infarction (CMS/HCC) Thoracic vertebral fracture (CMS/HCC) 07/28/2024 T12 Past Surgical History: Procedure Laterality Date CARDIAC CATHETERIZATION 05/19/2024 CORONARY ARTERY BYPASS GRAFT 02/05/2017 CTA HEART CORONARY W IV CONTRAST W OR WO FFRCT 02/03/2017 CT HEART CORONARY ANGIOGRAM PARIKH CONVERSION CYSTOSCOPY multiple cystos, TURBT, stents, prostate biopsy LIVER BIOPSY 06/03/2024 NEPHRECTOMY 07/28/2017 OTHER SURGICAL HISTORY Right 2018 nephrostomy tube Precautions Precautions Medical Precautions: fall risk, IV, no bending lifting or twisting, TLSO, telemetry (TLSO for comfort. Pt unable to wear initial TLSO 2o claustrophobia.) Pain Pain Assessment Pain Assessment: 0-10 Pain Score: 4 Pain Type: Acute pain Pain Location: Back Pain Orientation: Mid Cognition Cognition Overall Cognitive Status: Within Functional Limits Arousal/Alertness: Appropriate responses to stimuli Orientation Level: Oriented X4 Following Commands: Follows all commands and directions without difficulty Safety Judgment: Good awareness of safety precautions Awareness of Errors: Good awareness of errors made Deficits: Fully aware of deficits Attention Span: Appears intact Memory: Appears intact Problem Solving: Able to problem solve independently Communication: Intact Cognition Comments: Pt tearful at times during session. General Assessment General Assessment Hearing: Pt is slightly [place] Skin Integrity: Areas visualized- intact. Nephrostomy tube not visualized. Home Living Home Living Type of Home: House Lives With: Spouse Home Adaptive Equipment: Walker rolling Home Layout: One level, Stairs to alternate level without rails Alternate Level Stairs-Rails: None Alternate Level Stairs-Number of Steps: 1 Home Access: Stairs to enter with rails Entrance Stairs-Rails: Right Entrance Stairs-Number of Steps: 2 Bathroom Shower/Tub: Walk-in shower Bathroom Toilet: Standard Bathroom Equipment: Grab bars in shower Prior Level of Function Prior Function Level of [place]: Independent with ADLs and functional transfers, Needs assistance with homemaking Prior Functional Mobility: Independent without device Receives Help From: Family ADL Assistance: Independent Homemaking Assistance: Needs assistance 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 Prior IADLs Static Sitting Balance Static Sitting Balance Static Sitting-Balance Support: Right upper extremity supported, Left upper extremity supported, Unilateral upper extremity supported, Feet supported Static Sitting-Le (more content not included)... [facility] 08-12-2024 Note Physical Therapy Physical Therapy Evaluation Patient Name: Mykel Olivera : 1940 Today's Date: 08/12/2024 General Family/Caregiver Present: Yes ( arrived at end of session- reports she has no questions at this time.) Subjective: 84 y.o. male to ED s/p fall on 07/28/24 while trying to mount a horse and fell onto back. Worsening pain over several days with increased drainage over nephrostomy tube site.Found to have T12 compression fx with retropulsion of fracture fragments, R kidney hydronephrosis. Pt supine upon arrival, agreeable to PT. Pt amb in room and silva. Performed stairs. Returned to supine in bed at end of session with call light given. PT Diagnosis: Decreased functional mobility s/p T12 compression fx 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) Hematuria Hyperlipidemia type II IFG (impaired fasting glucose) Ischemic cardiomyopathy Left carotid stenosis Lumbar spondylosis Mucopurulent chronic bronchitis (CMS/HCC) Obstruction of nephrostomy tube (CMS/HCC) Paroxysmal atrial fibrillation (CMS/HCC) Stage 4 chronic kidney disease (CMS/HCC) Bigeminy Chest pain Melena Fall from horse T12 compression fracture, initial encounter (CMS/HCC) Fall from horse, initial encounter Hydronephrosis of right kidney Moderate protein-calorie malnutrition (CMS/HCC) Past Medical History: Diagnosis Date Allergies Arthritis Atrial fibrillation (CMS/HCC) Bladder problem Cancer (CMS/HCC) Carotid stenosis CHF (congestive heart failure) (CMS/HCC) Coronary artery disease Hyperlipidemia Hypertension Ischemic cardiomyopathy Kidney problem Myocardial infarction (CMS/HCC) Thoracic vertebral fracture (CMS/HCC) 07/28/2024 T12 Past Surgical History: Procedure Laterality Date CARDIAC CATHETERIZATION 05/19/2024 CORONARY ARTERY BYPASS GRAFT 02/05/2017 CTA HEART CORONARY W IV CONTRAST W OR WO FFRCT 02/03/2017 CT HEART CORONARY ANGIOGRAM PARIKH CONVERSION CYSTOSCOPY multiple cystos, TURBT, stents, prostate biopsy LIVER BIOPSY 06/03/2024 NEPHRECTOMY 07/28/2017 OTHER SURGICAL HISTORY Right 2018 nephrostomy tube Precautions Precautions Medical Precautions: fall risk, IV, no bending lifting or twisting, TLSO, telemetry (TLSO for comfort) Pain Pain Assessment Pain Assessment: 0-10 Pain Score: 4 Pain Type: Acute pain Pain Location: Back Pain Orientation: Mid Cognition Cognition Arousal/Alertness: Appropriate responses to stimuli Following Commands: Follows one step commands without difficulty Safety Judgment: Good awareness of safety precautions Awareness of Errors: Assistance required to correct errors made, Assistance required to identify errors made, Decreased awareness of errors Deficits: Fully aware of deficits Attention Span: Appears intact Communication: Intact Cognition Comments: Pt tearful at times during session. General Assessment General Assessment Hearing: Slightly [place] Skin Integrity: Areas visualized- intact. Nephrostomy tube not visualized. Home Living Home Living Type of Home: House Lives With: Spouse Home Adaptive Equipment: Walker rolling Home Layout: One level, Stairs to alternate level without rails Alternate Level Stairs-Rails: None Alternate Level Stairs-Number of Steps: 1 Home Access: Stairs to enter with rails Entrance Stairs-Rails: Right Entrance Stairs-Number of Steps: 2 Bathroom Shower/Tub: Walk-in shower Bathroom Toilet: Standard Bathroom Equipment: Grab bars in shower Prior Level of Function Prior Function Level of [place]: Independent with ADLs and functional transfers, Needs assistance with homemaking Prior Functional Mobility: Independent without device Receives Help From: Family ADL Assistance: Independent 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 Postural Control: Deficits on evaluation (Pt tips to posterior left direction in sitting with assessment of LEs in sittin (more content not included)... [facility] 08-12-2024 Note 9:55-SW attempted to contact of patient to ask for name of [facility] agency. She was unavailable at this time, SW left and contact for call back. Per RN, she should be up at the hospital today. 10:50-SW spoke with patient at bedside, patient informed SW that he does not remember the [facility] agency as it is new and was just set up by his PCP. He stated they have visited him at [facility] once. Patient stated his likely knows the name and that she should arrive soon as she left their home in [place] close to 1 hours ago. SW to visit when arrives. Update: SW spoke to patient and at bedside. Patient's is also unsure of name of [facility] agency. [facility] reached out to patient's PCP's office, who stated he is current with [facility]. SW sent return referral and added agency to AVS. Update: SW called [facility], they state it was recently set up on the . They state they can continue care and usually have SOC within 48 hours of DC, however, AVS and DC order are needed. OTM will continue to follow. [facility] 08-12-2024 Note NEUROSURGERY NOTE SUBJECTIVE: Chief complaint: T12 fracture. History of present illness: RN reports no acute events overnight. Patient reports low back pain, 2/10. He denies leg pain, weakness, paresthesias. A TLSO brace was delivered yesterday, though states he could not tolerate that particular bottle of brace due to claustrophobia. He would be willing to consider a different type of brace. Review of systems: As in HPI. Past Medical History: Diagnosis Date Allergies Arthritis Atrial fibrillation (CMS/HCC) Bladder problem Cancer (CMS/HCC) Carotid stenosis CHF (congestive heart failure) (CMS/HCC) Coronary artery disease Hyperlipidemia Hypertension Ischemic cardiomyopathy Kidney problem Myocardial infarction (CMS/HCC) Thoracic vertebral fracture (CMS/HCC) 07/28/2024 T12 Past Surgical History: Procedure Laterality Date CARDIAC CATHETERIZATION 05/19/2024 CORONARY ARTERY BYPASS GRAFT 02/05/2017 CTA HEART CORONARY W IV CONTRAST W OR WO FFRCT 02/03/2017 CT HEART CORONARY ANGIOGRAM PARIKH CONVERSION CYSTOSCOPY multiple cystos, TURBT, stents, prostate biopsy LIVER BIOPSY 06/03/2024 NEPHRECTOMY 07/28/2017 OTHER SURGICAL HISTORY Right 2018 nephrostomy tube Social History Tobacco Use Smoking status: Former Current packs/day: 0.00 Average packs/day: 1 pack/day for 5.0 years (5.0 ttl pk-yrs) Types: Cigarettes Start date: 1957 Quit date: 1962 Years since quittin.0 Smokeless tobacco: Current Types: Chew Vaping Use Vaping status: Never Used Substance Use Topics Alcohol use: Not Currently Comment: quit 40 years ago Drug use: Never No family history on file. OBJECTIVE: Medications: @MEDSINGROUPER@ No current facility-administered medications for this encounter. Current Outpatient Medications: aspirin 81 mg chewable [...] in the morning., Disp: , Rfl: HYDROcodone-acetaminophen (Ferriday) 5-325 mg tablet, 1 tablet as needed, Disp: , Rfl: lisinopril 5 mg tablet, Take 5 mg by mouth in the morning., Disp: , Rfl: magnesium oxide (Mag-Ox) 400 mg (241.3 mg magnesium) tablet, 1 (one) time each day at the same time., Disp: , Rfl: spironolactone (Aldactone) 25 mg tablet, TAKE 1 TABLET BY MOUTH ONCE DAILY DIRECTED, Disp: 90 tablet, Rfl: 3 acetaminophen (Tylenol) 500 mg tablet, Take 1 tablet (500 mg) by mouth every 6 (six) hours if needed for mild pain (1-3 pain score)., Disp: 30 tablet, Rfl: 0 isosorbide mononitrate ER (Imdur) 30 mg 24 hr tablet, Take 2 tablets (60 mg) by mouth in the morning., Disp: 60 tablet, Rfl: 0 methocarbamol (Robaxin) 500 mg tablet, Take 1 tablet (500 mg) by mouth if needed in the morning, at noon, and at bedtime for muscle spasms., Disp: 30 tablet, Rfl: 0 sodium chloride 1,000 mg tablet, Take 1 tablet (1 g) by mouth with breakfast, with lunch, and with evening meal., Disp: 90 tablet, Rfl: 0 Allergies: Allergies Allergen Reactions Iodine Unknown Per EMS Requip [Ropinirole] Tramadol Unknown Exam: Exam performed and reviewed, changes as below. Vitals reviewed: Temp: [36.4 ???C (97.5 ???F)-36.6 ???C (97.9 ???F)] 36.4 ???C (97.5 ???F) Heart Rate: [88-97] 96 Resp: [16] 16 BP: (150-154)/(77-86) 150/86 I/O last 3 completed shifts: In: 1815 (25.6 mL/kg) [P.O.:1800; IV Piggyback:15] Out: 730 (10.3 mL/kg) [Urine:730 (0.3 mL/kg/hr)] Weight: 71 kg No intake/output data recorded. Constitutional: In no apparent distress. Chest: Chest expansion symmetrical. Respirations regular and nonlabored. Right ankle edema. No left ankle edema appreciated. Skin warm and dry without pallor. Neuro: GCS 15/15. Attention and memory mildly impaired. No dysarthria or aphasia. Sensation: Intact to light touch C5-T1 and L2-S1 dermatomes bilaterally. Musculoskeletal: Right-handed. Deltoid right 4+/5, left 3/5. Triceps, biceps, finger flexors, 4+/5 bilaterally finger extensors 4/5 bilaterally. Hip flexors 4+/5 bilaterally. Knee flexors, ankle dorsi and plantar flexors 4+/5 bilaterally. Ankle plantar flexors 5/5 bilaterally. Muscle tone without hyper or hypotonicity. Muscle bulk appropriate for age. Sitting in chair. Labs: Admission on 08/09/2024, Discharged on 08/12/2024 Component Date Value Ref Range Status Sodium 08/09/2024 126 (L) 136 - 145 mmol/L Final Potassium 08/09/2024 4.4 3.5 - 5.1 mmol/L Final Chloride 08/09/2024 97 (L) 98 - 107 mmol/L Final CO2 08/09/2024 22 21 - 31 mmol/L Final BUN 08/09/2024 29 (H) 7 - 25 mg/dL Final Creatinine 08/09/2024 1.16 0.70 - 1.30 mg/dL Final Glucose 08/09/2024 76 70 - 100 mg/dL Final Calcium 08/09/2024 8.3 (L) 8.6 - 10.3 mg/dL Final Anio (more content not included)... [facility] 08-11-2024 Note [facility] Progress Note Subjective Patient seen and examined in bed today. He reports lower back pain is improving. He insists he is not able to tolerate his back brace stating he feels claustrophobic in the brace. Discussed with patient plan to trial a different brace. He denies chest pain, SOB, NVD, numbness, tingling, loss of bladder of bowel control, weakness. Objective Vitals: BP: (128-140)/(76-86) 140/76 (08/11 646) Systolic BP Percentile: -- Diastolic BP Percentile: -- Temp: [36.4 ???C (97.5 ???F)-36.5 ???C (97.7 ???F)] 36.5 ???C (97.7 ???F) (08/11 646) Temp Source: Oral (08/11 646) Heart Rate: [95-102] 95 (08/11 646) Resp: [16] 16 (08/11 646) SpO2: [97 %-98 %] 98 % (08/11 646) Height: -- Weight: [68.5 kg (151 lb 0.2 oz)] 68.5 kg (151 lb 0.2 oz) (08/10 2124) John Coma Scale Score: 15 Intake/Output Summary (Last 24 hours) at 08/11/2024 1420 Last data filed at 08/11/2024 0830 Gross per 24 hour Intake 1695 ml Output 600 ml Net 1095 ml Physical Exam Constitutional: General: He is not in acute distress. Appearance: Normal appearance. He is not ill-appearing. HENT: Head: Normocephalic and atraumatic. Eyes: Extraocular Movements: Extraocular movements intact. Conjunctiva/sclera: Conjunctivae normal. Cardiovascular: Rate and Rhythm: Normal rate and regular rhythm. Pulses: Normal pulses. Heart sounds: Normal heart sounds. Pulmonary: Effort: Pulmonary effort is normal. Breath sounds: Normal breath sounds. Abdominal: General: Bowel sounds are normal. There is no distension. Palpations: Abdomen is soft. Tenderness: There is no abdominal tenderness. Musculoskeletal: General: Normal range of motion. Cervical back: Normal range of motion and neck supple. Skin: General: Skin is warm and dry. Neurological: General: No focal deficit present. Mental Status: He is alert and oriented to person, place, and time. Psychiatric: Mood and Affect: Mood normal. Behavior: Behavior normal. Labs: Recent Results (from the past 12 hour(s)) POCT glucose meter Collection Time: 08/11/24 5:10 AM Result Value Ref Range Glucose POC 127 (H) 70 - 105 mg/dL Basic metabolic panel Collection Time: 08/11/24 5:59 AM Result Value Ref Range Sodium 128 (L) 136 - 145 mmol/L Potassium 4.2 3.5 - 5.1 mmol/L Chloride 99 98 - 107 mmol/L CO2 24 21 - 31 mmol/L BUN 22 7 - 25 mg/dL Creatinine 1.05 0.70 - 1.30 mg/dL Glucose 110 (H) 70 - 100 mg/dL Calcium 8.1 (L) 8.6 - 10.3 mg/dL Anion Gap 9 7 - 20 mmol/L eGFR 70.9 >60.0 mL/min/1.73m*2 BUN/Creatinine Ratio 21.0 Magnesium Collection Time: 08/11/24 5:59 AM Result Value Ref Range Magnesium 1.6 (L) 1.9 - 2.7 mg/dL Phosphorus Collection Time: 08/11/24 5:59 AM Result Value Ref Range Phosphorus 2.1 (L) 2.5 - 5.0 mg/dL CBC Collection Time: 08/11/24 5:59 AM Result Value Ref Range Auto WBC 7.92 4.00 - 10.60 10*3/uL RBC 3.11 (L) 4.20 - 5.70 10*6/uL Hemoglobin 9.1 (L) 13.0 - 17.0 g/dL Hematocrit 29.4 (L) 39.0 - 55.0 % MCV 94.5 82.0 - 98.0 fL MCH 29.3 27.0 - 33.0 pg MCHC 31.0 (L) 32.0 - 35.0 g/dL RDW 18.2 (H) 11.5 - 15.0 % Platelets 197 150 - 400 10*3/uL Radiologic studies: XR chest 1 view Result Date: 08/10/2024 * Multiple shotgun otherwise with a surgical clip in the left hilar region. No other radiopaque foreign bodies are seen. If a foreign body is suspected clinically, a CT study is recommended. * Bibasilar atelectasis, left subpleural effusion, and cardiomegaly. Electronically signed: Kannan Lang. No CT results found for the past 24 hours MR thoracic spine w and wo contrast Result Date: 08/11/2024 1. Subacute, traumatic T12 compression fracture with 6 mm in vertebral body height loss. There is posterior cortical buckling/retropulsion abutting the spinal cord without cord compression. Focal mild to moderate thecal sac narrowing at this level. No underlying lesion. 2. Mild T1 and T2 superior plate compression deformities which may be subacute as detailed above. 3. No evidence for a mass of the thoracic spine. 4. Superior bilateral paraspinous muscular edema consistent with recent injury. 5. Multiple liver masses incompletely visualized, refer to CT abdomen and pelvis report for details. 6. Degenerative changes of cervical and lumbar spine incompletely characterized on this exam including severe thecal sac narrowing at C3-4, consider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 this encounter [facility] System[facility]ructionsNot on filedocumented in this encounter [facility] System[facility] note No data available for this section [facility] Summary Purpose Family History No Family History [...] CC Adult Risk Stratification June 072023 9:17am [facility] follow up-HIGH RISK June 09, 2024 8:19am Reason for Visit Admit Date Essential hypertension April 02 9:52am 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) August 02, 2024 9:51am Hyperlipidemia type II August 02, 2024 9:51am IFG (impaired fasting glucose) August 022024 9:51am Ischemic cardiomyopathy August 02 9:51am Liver mass August 02, 2024 9: 51am Lumbar spondylosis August 02, 2024 9: 51am Medicare annual wellness visit, subseque nt August 02, 2024 9:51am Opiate analgesic use agreement exists Marty mosqueda 2024 9:51am Stage 4 chronic kidney disease August 022024 9:51am Additional Source Comments (unrecognized sect ion and content) No Status Records FoundNo Status Records FoundNo Status Records FoundNo Status Records FoundNo Status Records FoundNo Status Records FoundNo Status Records FoundNo Status Records FoundNo Status Records FoundNo Status Records FoundNo Status Records FoundNo Status Records FoundNo Status Records FoundNo Status Records Found INFORMATION SOURCE (unrecogn ized section and content) DATE CREATED AUTHOR 10/12/2020 [facility] DATE CREATED AUTHOR AUTHOR'S ORGANIZ ATION 01/07/2023 [facility] DATE CREATED AUTHOR AUTHOR'S ORGANIZ ATION 04/08/2024 [facility] DATE CREATED AUTHOR AUTHOR'S ORGANIZ ATION 04/09/2024 [facility] DATE CREATED AUTHOR AUTHOR'S ORGANIZ ATION 05/28/2024 [facility] [place] [facility] DATE CREATED AUTHOR AUTHOR'S ORGANIZ ATION 06/11/2024 [facility] DATE CREATED AUTHOR AUTHOR'S ORGANIZ ATION 06/11/2024 [facility] DATE CREATED AUTHOR AUTHOR'S ORGANIZ ATION 06/19/2024 [facility] DATE CREATED AUTHOR AUTHOR'S ORGANIZ ATION 06/22/2024 [facility] DATE CREATED AUTHOR AUTHOR'S ORGANIZ ATION 07/01/2024 [facility] DATE CREATED AUTHOR AUTHOR'S ORGANIZ ATION 07/14/2024 [facility] DATE CREATED AUTHOR AUTHOR'S ORGANIZ ATION 07/17/2024 [facility] DATE CREATED AUTHOR AUTHOR'S ORGANIZ ATION 07/18/2024 [facility] DATE CREATED AUTHOR AUTHOR'S ORGANIZ ATION 08/13/2024 [facility] Care Teams (unrecognized sec tion and content) Team Status: Active Member Role Status Dates Benson Hercules , DO Primary Care Provider Active Team Status: Active Member Role [...] June 09, 2024 End: June 09, 2024 Team Status: Active Member Role Status Dates Benson Hercules DO Primary Care Provider Active Start: June 11, 2024 Sheryl Magana CMA Attending Provider Active Start: June 11, 2024 Team Status: Inactive Member Role Status Dates Benson Hercules DO Primary Care Provider Active Start: June 14, 2024 End: June 14, 2024 Kami Venegas MD Attending Provider Active St art: June 14, 2024 End: June 14, 2024 Team Status: Active Member Role Status Dates Benson Hercules DO Primary Care Provide r, Attending Provider Active Start: June 21, 2024 Team Status: Inactive Member Role Status Dates Benson Hercules DO Primary Care Provide r, Attending Provider Active Start: August 02, 2024 End: August 02, 2024 Team Status: Inactive Member Role Status Dates Benson Hercules DO Primary Care Provider Active Start: November 21, 2023 End: November 21, 2023 Declan Moreira DO Attending Provider Active Star t: November 21, 2023 End: November 21, 2023 Team Status: Inactive Member Role Status Adelso Hercules DO Primary Care Provide r, Attending Provider Active Start: December 31, 2023 End: December 31, 2023 Team Status: Inactive Member Role Status Dates Benson Hercules DO Primary Care Provider Active Start: February 13, 2024 End: February 13, 2024 Kami Venegas MD Attending Provider Active St art: February 13, 2024 End: February 13, 2024 Team Status: Active Member Role Status Adelso Hercules DO Primary Care Provide r, Attending Provider Active Start: October 08, 2023 Team Status: Active Member Role Status Adelso Hercules DO Primary Care Provide r, Attending Provider Active Start: November 03, 2023 Team Status: Inactive Member Role Status Adelso Hercules DO Primary Care Provider Active Steven Coronado MD Attending Provider Active Team Status: Inactive Member Role Status Adelso Hercules DO Primary Care Provider Active Declan Moreira DO Attending Provider Active Team Status: Inactive Member Role Status Dates Benson Hercules DO Primary Care Provider Active Kami Venegas MD Attending Provider Active Team Status: Inactive Member Role Status Dates Benson Hercules DO Primary Care Provider Active Jose D Hercules Jr, MD Emergency Provider Active Team Status: Inactive Member Role Status Adelso Hercules DO Primary Care Provide r, Attending Provider Active Start: September 30, 2023 End: September 30, 2023 Team Status: Inactive Member Role Status Adelso Hercules DO Primary Care Provide r, Attending Provider Active Start: April 02, 2024 End: April 02, 2024 [employer] Relationship Specialty Start Date End Date Benson Hercules DO [address] [place] [address] PCP - General Internal Medicine 05/26/24 [employer] Relationship Specialty Start Date End Date Benson Hercules DO [address] [place] [address] PCP - General Internal Medicine 05/26/24 Company [employer]cer Relationship Specialty Start Date End Date Benson Hercules DO [address] [place] [address] PCP - General Internal Medicine 05/26/24 Goals (unrecognized section and content) Goals may be documented in a n alternate section REASON FOR VISIT (unrecogniz ed section and content) [address] acardResultsNo InformationrefillNo InformationNo InformationHolter resultsRefill3 month Follow upMedication QuestionPain Med Refill/IncreaseRefills3 month Follow upRefillTesting [facility] resultsRefill FOR RECORDS PERTAINING TO PATIENTS [...] BE BASED ON THE PRIMARY CLINICAL RECORDS. [employer] provides no warranty or guarantee of the accuracy or completeness of information in this document.
[2024-08-15] MEDS: DILTIAZEM HCL 25 MG/5 ML VIAL 10 MG IV (03:49)
[2024-08-15 04:21] LABS: Hematocrit 34.9 % (42.0-54.0); Hemoglobin 10.9 g/dL (14.0-18.0); Mean Corpuscular HGB Conc 31.2 g/dL (29.9-35.2); Mean Corpuscular Hemoglobin 29.7 pg (25.9-34.0); Mean Corpuscular Volume 95.1 fL (80.0-94.0); Mean Platelet Volume 10.3 fL (9.5-13.5); Platelet Count 171 10^3/uL (150-450); Red Blood Count 3.67 10^6/uL (4.70-6.10); Red Cell Distribution Width 18.9 % (11.0-15.0); White Blood Count 19.5 10^3/uL (4.0-11.0)
[2024-08-15 04:21] LABS: Alanine Aminotransferase 23 U/L (16-63); Albumin Globulin Ratio 0.5; Albumin Level 2.2 g/dL (3.4-5.0); Alkaline Phosphatase 758 U/L (46-116); Anion Gap 13.8; Aspartate Amino Transferase 130 U/L (15-37); BUN Creatinine Ratio 18.7; Bilirubin Total 1.2 mg/dL (0.2-1.0); Calcium 8.8 mg/dL (8.5-10.1); Carbon Dioxide 22.5 mmol/L (21.0-32.0); Chloride 98 mmol/L (98-107); Estimated GFR (African America >60 (>=60 mL/min/1.73m^2); Estimated GFR (Non-African Ame 51 (>=60 mL/min/1.73m^2); Globulin 4.3 g/dL; Glucose 96 mg/dL (74-106); Potassium 5.3 mmol/L (3.5-5.1); Sodium 129 mmol/L (136-145); Total Protein 6.5 g/dL (6.4-8.2)
[2024-08-15 04:27] LABS: Magnesium 1.4 mg/dL (1.8-2.4)
[2024-08-15] MEDS: FUROSEMIDE 40 MG/4 ML VIAL IVP (04:28)
[2024-08-15 04:30] LABS: NT Pro B Type Natriuretic Pept >35000.0 pg/mL (<=1800.0)
[2024-08-15] MEDS: ONDANSETRON PF 4 MG/2 ML VIAL IV (04:35)
[2024-08-15] MEDS: DILTIAZEM HCL 25 MG/5 ML VIAL 20 MG IV (04:35)
--- NOTE | 2024-08-15 04:35 | ED.SOB1 ---
HPI - SOB/Dyspnea General Chief Complaint: Shortness of Breath/Dyspnea Stated Complaint: SHORTNESS OF BREATH Time Seen by Provider: 08/15/24 03:32 Source: patient Mode of arrival: ambulance Limitations: no limitations History of Present Illness HPI Narrative: The patient was brought in by squad for evaluation after he was complaining of increasing shortness of breath. He apparently also had chest tightness and pain which started early on the morning of August 14, 2024, which woke him from sleep. He did not tell this to the EMS crew. Pain is nonradiating and mid sternal. He did note that he had been having some cough that was nonproductive as well as some shortness of breath especially with exertion over the last for 5 days. He said that home health nurse evaluated him and recommended that he get a chest x-ray, which was apparently ordered on an outpatient basis, but he had not yet obtained. No fever or chills. As mentioned, the cough is nonproductive. No GI or symptoms. The patient denied any history of atrial fibrillation but he is on anticoagulation. Prior surgical history includes coronary artery bypass grafting and he has a scar in the mid chest suggesting that is correct. On questioning, he noted that his lower legs, especially the right one, have been swollen He had a fall off of a horse in early July and apparently went to [facility] for admission. He told me that he had back surgery because of the fracture. Related Data Home Medications ?Medication ?Instructions ?Recorded ?Confirmed apixaban 2.5 mg tablet (Eliquis) 2.5 mg PO Q12H 08/14/23 08/15/24 atorvastatin 40 mg tablet 40 mg PO BEDTIME 08/14/23 08/15/24 ferrous sulfate 325 mg (65 mg 325 mg PO DAILY 08/14/23 08/15/24 iron) tablet (FeroSul) hydralazine 25 mg tablet 25 mg PO Q12H 08/14/23 08/09/24 isosorbide mononitrate 30 mg 60 mg PO DAILY 08/14/23 08/15/24 tablet,extended release 24 hr wemeigdebjxc-ccaxoqe-vvfls acid 1 tab PO DAILY 08/14/23 08/15/24 400 mcg-lutein 250 mcg chewable tablet (Centrum Silver) hydrocodone 5 mg-acetaminophen 325 1 tab PO Q6H PRN pain 08/09/24 08/09/24 mg tablet methocarbamol 500 mg tablet 500 mg PO TID 08/15/24 08/15/24 sodium chloride 1,000 mg soluble mg 08/15/24 tablet spironolactone 25 mg tablet mg 08/15/24 Previous Rx's ?Medication ?Instructions ?Recorded methocarbamol 500 mg tablet 500 mg PO Q8H PRN muscle pain #10 07/30/24 tabs Allergies Allergy/AdvReac Type Severity Reaction Status Date / Time povidone-iodine (From Allergy Rash Verified 08/15/24 03:53 Betadine) [facility] Medical History (Updated 08/15/24 @ 04:43 by Jerad Eric) Abnormal cystoscopy ?R39.9 - Unspecified symptoms and signs involving the genitourinary system (ICD-10) Bladder cancer ?C67.9 - Malignant neoplasm of bladder, unspecified (ICD-10) Malfunction of nephrostomy tube ?T83.098A - Other mechanical complication of other urinary catheter, initial encounter (ICD-10) Surgical History (Updated 02/04/24 @ 13:08 by Lorena Polo) H/O transurethral resection of bladder tumor (TURBT) ?Z98.890 - Other specified postprocedural states (ICD-10) ?Z86.03 - Personal history of neoplasm of uncertain behavior (ICD-10) H/O transurethral resection of prostate ?Z98.890 - Other specified postprocedural states (ICD-10) ?Z90.79 - Acquired absence of other genital organ(s) (ICD-10) 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 Do you use any of these nicotine containing products: smokeless tobacco Smokeless tobacco user: snuff Non-prescribed substance use: denies use Previous occupational history: [employer] Highest level of school completed/degree received: some college, no degree Little interest or pleasure in doing things: not at all Feeling down, depressed, or hopeless: not at all Exam Narrative Exam Narrative: Nurses notes and vital signs reviewed and patient is not hypoxic. afebrile General: Well-appearing and in no apparent distress. Skin: Warm, dry, no pallor noted. Head: Normocephalic, atraumatic. Neck: Supple, non-tender. Eye: Pupils are equal, round and EOMI. No scleral icterus. Ears, Nose, Mouth, and Throat: Oral mucosa is moist Cardiovascular: Irregular tachycardia. Respiratory: Mild accessory muscle use but no respiratory distress. Lungs with bibasilar crackles Musculoskeletal: normal ROM, no calf or popliteal tenderness. 1+ pitting right lower extremity edema/swelling; trace on the left GI: Abdomen is soft, non-distended. Normal bowel sounds. No tenderness to palpation. No rebound, guarding, or rigidity noted. Neurological: A&O x4. No cranial nerve dysfunction observed. No truncal ataxia. Moves all extremities. Sensation intact. Psychiatric: Cooperative and interactive. Normal mood and affect. Constitutional Vital Signs, click to edit/add: Last Vital Signs Pulse 122 H 08/15/24 04:19 Resp 30 H 08/15/24 04:19 BP 162/92 H 08/15/24 04:19 Pulse Ox 80 L 08/15/24 04:19 O2 Del Method Room Air 08/15/24 04:19 Course Vital Signs Vital signs: Vital Signs Pulse Rate 122 H 08/15/24 04:19 Respiratory Rate 30 H 08/15/24 04:19 Blood Pressure 162/92 H 08/15/24 04:19 Pulse Oximetry 80 L 08/15/24 04:19 Oxygen Delivery Method Room Air 08/15/24 04:19 Pulse Rate 122 H 08/15/24 04:19 Respiratory Rate 30 H 08/15/24 04:19 Blood Pressure 162/92 H 08/15/24 04:19 Pulse Oximetry 80 L 08/15/24 04:19 Oxygen Delivery Method Room Air 08/15/24 04:19 MDM - SOB/Dyspnea MDM Narrative Medical decision making narrative: Patient was placed on registered nurse cardiac telemetry and EKG obtained. Blood drawn and sent for evaluation. I placed oxygen on him -15 L/min nonrebreather EKG revealed rapid atrial fibrillation. The patient was given 10 mg Cardizem IV. Repeat EKG showed that he had converted to a sinus tachycardia. Shortly thereafter, however, the patient went back into rapid atrial fibrillation. He was given an additional 20 mg of Cardizem IV. White blood cell count is elevated at 19K, lactate is pending at this time. IV Levaquin is ordered for him. Swabs were also obtained for COVID and influenza. Chest x-ray revealed central cephalization. BNP is markedly elevated, but troponin is negative. He is anticoagulated. He received 40 mg of Lasix IV Call placed to the on-call telehospitalist @ 0440 to discuss admission to the ICU for new onset atrial fibrillation, CHF. While awaiting callback from telehospitalist, the patient converted to normal sinus rhythm. But he goes in and out of atrial fibrillation. rate at this time is controlled. Kacey Rodarte - telehospitalist - and I discussed the case at 04:55 and she agreed with ICU hospitalization for this patient. May start on cardizem drip if still in paroxysmal afib. Pt and family informed of findings, diagnoses, treatment plan and need for admission Lab Data Attestation: I reviewed the patient's lab results. Labs: Lab Results 08/15/24 08/15/24 08/15/24 Range/Units 03:56 04:10 04:37 WBC 19.5 H (4.0-11.0) 10^3/uL RBC 3.67 L (4.70-6.10) 10^6/uL Hgb 10.9 L (14.0-18.0) g/dL Hct 34.9 L (42.0-54.0) % MCV 95.1 H (80.0-94.0) fL MCH 29.7 (25.9-34.0) pg MCHC 31.2 (29.9-35.2) g/dL RDW 18.9 H (11.0-15.0) % Plt Count 171 (150-450) 10^3/uL MPV 10.3 (9.5-13.5) fL Seg Neuts % (Manual) 94.0 H (43.0-75.0) Lymphocytes % (Manual) 1.0 L (20.5-60.0) % Monocytes % (Manual) 5.0 (1.7-12.0) % Eosinophils % (Manual) 0.0 L (0.9-7.0) % Basophils % (Manual) 0.0 L (0.2-2.0) % Neutrophils # (Manual) 18.33 H (1.4-6.5) 10^3/uL Lymphocytes # (Manual) 0.19 L (1.20-3.80) 10^3/uL Monocytes # (Manual) 0.97 H (0.30-0.80) 10^3/uL Eosinophils # (Manual) 0.00 (0.00-0.70) 10^3/uL Basophils # (Manual) 0.00 (0.00-0.10) 10^3/uL Sodium 129 L (136-145) mmol/L Potassium 5.3 H (3.5-5.1) mmol/L Chloride 98 (98-107) mmol/L Carbon Dioxide 22.5 (21.0-32.0) mmol/L Anion Gap 13.8 BUN 25.0 H (7.0-18.0) mg/dL Creatinine 1.34 H (0.70-1.30) mg/dL Est GFR ( Amer) >60 (>=60 mL/min/1.73m^2) Est GFR (Non-Af Amer) 51 L (>=60 mL/min/1.73m^2) BUN/Creatinine Ratio 18.7 Glucose 96 (74-106) mg/dL Lactate 1.9 (0.4-2.0) mmol/L Calcium 8.8 (8.5-10.1) mg/dL Magnesium 1.4 L (1.8-2.4) mg/dL Total Bilirubin 1.2 H (0.2-1.0) mg/dL AST 130 H (15-37) U/L ALT 23 (16-63) U/L Alkaline Phosphatase 758 H (46-116) U/L Troponin I High Sens 45.0 (4.0-76.1) pg/mL NT-Pro-B Natriuret Pep >90010.0 H* (<=1800.0) pg/mL Total Protein 6.5 (6.4-8.2) g/dL Albumin 2.2 L (3.4-5.0) g/dL Globulin 4.3 g/dL Albumin/Globulin Ratio 0.5 Influenza Type A Ag Negative Influenza Type B Ag Negative SARS-CoV-2 Ag (CV2AG) Negative (NEGATIVE) Imaging Data Chest x-ray: My impression: Central cephalization - cannot rule out LLL infiltrate Radiologist's impression: ITS Impressions Chest X-Ray 08/15/24 03:32 IMPRESSION: 1. Stable enlarged cardiac silhouette with a suspected small left pleural effusion and medial right basilar opacities that could represent atelectasis, aspiration changes, and/or pneumonia. Electronically authenticated by: Andrew CHARLTON Date: 08/15/2024 05:24 ECG Data Attestation: I personally reviewed and interpreted this ECG as follows: Interpretation: EKG #1 interpretation: Emergency Department physician interpretation. Rapid atrial fibrillation at 125bpm. Incomplete right bundle branch block, right ventricular hypertrophy. No ST elevation noted. EKG #2 (after Cardizem) interpretation: Emergency Department physician interpretation. Sinus tachycardia at 108bpm. Incomplete right bundle branch block, first-degree AV block, moderate right axis. No ST segment elevation or depression. EKG #3 interpretation: Emergency Department physician interpretation. Normal sinus rhythm at 90bpm. Incomplete right bundle branch block, normal axis, normal intervals and no ST segment elevation or depression. Critical Care Time Critical Care Time Critical Care Time: Yes Total Critical Care Time: 52 Attestation: Critical Care Time: 52 minutes, critical care time is separate from any procedures that are performed. The following was considered in the determination of critical care but not limited to the level medical decision-making, intensive cardiac and/or respiratory monitor, frequent vital sign monitoring, evaluation of laboratory studies, evaluation of a radiographic studies, oxygen monitoring and constant monitoring. Discharge Plan Discharge Chief Complaint: Shortness of Breath/Dyspnea Clinical Impression: Congestive heart failure, Atrial fibrillation with rapid ventricular response Patient Disposition: Admitted As Inpatient Time of Disposition Decision: 04:40 Condition: Critical Additional Instructions: admit to ICU
[2024-08-15 04:36] LABS: Lymphocytes Absolute Manual 0.19 10^3/uL (1.20-3.80); Monocytes Absolute Manual 0.97 10^3/uL (0.30-0.80); Segmented Neut Absolute Manual 18.33 10^3/uL (1.4-6.5)
[2024-08-15 04:46] LABS: Lactate/Lactic Acid 1.9 mmol/L (0.4-2.0)
--- NOTE | 2024-08-15 04:52 | ECG_ITS ---
[facility] Test Date: 2024-08-15 Pat Name: MYKEL IRIZARRY Department: Room: [facility] Gender: Male Evp: : 1940 Requested By: KARLA HERCULES Order Number: [id number] Reading MD: KARLA HERCULES Measurements Intervals [place] Rate: 90 P: -4 VA: 196 QRS: 79 QRSD: 106 T: 115 QT: 360 QTc: 408 Interpretive Statements 1100 Sinus rhythm 1108 Marked sinus arrhythmia Low voltage across the precordium T wave changes, can't exclude lateral ischemia 9130 borderline ECG Electronically Signed On 08-15-2024 17:32:26 EST by KARLA HERCULES
[2024-08-15 05:05] LABS: Influenza Virus A Antigen Negative; Influenza Virus B Antigen Negative; Internal Control Within Normal Limits; SARS-CoV-2 Ag NEGATIVE (NEGATIVE)
[2024-08-15] MEDS: LEVOFLOXACIN IN DEXTROSE 5 % 750 MG/150 ML PREMIX 100 MG IV (05:14)
--- OUTSIDE RECORDS SUMMARY | 2024-08-15 05:41 | XMS_ITS | CCD ---
Author Organization [facility] Care Team Providers Care Medical Information Specialist Name Role Phone RICHIE WALTON Attending Unavailable RICHIE WALTON Admitting Unavailable DIOMEDES, BENSON Referring Unavailable DIOMEDES, BENSON Primary Care Unavailable JUAN BLACKWELL Primary Care Physician DO Benson Hercules Primary Care Provider MD Steven Coronado Attending Provider DO Benson Hercules Primary Care Provider [phone] Harish, DO Manriquez Attending Provider Unavailable Diomedes, DO Knowles Primary Care Provider [phone] MD Kami Venegas Attending Provider Harish, DO [...] ble Diomedes, DO Knowles Primary Care Provider [phone] MD Kami Venegas Attending Provider [phone] DO Benson Hercules Primary Care Provider [phone] MD Kami Venegas Attending Provider MD Jose D Hercules Jr Emergency Provider DO Benson Hercules Primary Care Provider DO Declan Moreira Attending Provider Unavailable MD Kami Venegas Attending Provider [phone] Diomedes, DO Knowles Primary Care Provider BENSON HERCULES Primary Care Physician [phone] Kami VENEGAS Attending Unavailable VENEGAS, Kami R Admitting Unavailable VENEGAS, Kami R Attending Unavailable VENEGAS, Kami R Attending Unavailable VENEGAS, Kami R Attending Unavailable VENEGAS, Kami R Admitting Unavailable VENEGAS, Kami R Attending Unavailable PHYSICIAN, UNKNOWN Referring Unavailable TTH ONLY, [facility] Consulting Unavailable KAYYALI, AMMAR I Admitting Unavailable KAYYALI, AMMAR I Attending Unavailable FELECIA HUTSON Consulting Unavailable ZOGRAFIDES, STACY Hrer Consulting Unavailable BENNIE MOROCHO Consulting Unavailable SHEN, [...] Care Provider Kami Venegas MD Attending Provider [phone] ARCADIO NUÑEZ Attending Unavailable OVITT, GILBERT Referring [...] sources) traMADol; Translations: [tramadol] Drug Allergy 8 [facility] (1 source) patient allergy list reviewed by nurse or physicia Propensity to adverse reactions 8 Comment:[employer] Other (4 sources) No Known Medication Allergies; Translations: [No Known Medication Allergies] Propensity to adverse reactions (disorder) [facility] Repository (1 source) Iodine; Translations: [IODINE] Drug Allergy 5 [facility] Repository (1 source) rOPINIRole; Translations: [ROPINIROLE] Drug Allergy 2 [facility] Repository Medications Current Medications Medication Drug Class(es) [...] day(s), # 14 tab(s), Refills(s) 0, Pharmacy: [id number] Start Date: 04/01/24 Stop Date: 04/08/24 [...] BID, # 14 cap(s), Refills(s) 0, Pharmacy: [facility] Start Date: 07/12/24 Status: Ordered Start: 10-21-2022 take 1 capsule by mo [facility] every twelve hours Keflex 500 mg Cap 500 mg = 1 cap(s), Oral, q12hr, # 20 cap(s), Refills(s) 0, Pharmacy: [facility] #[id number] Start Date: 10/21/22 Status: Ordered Start: 06-19-2022 End: 06-26-2022 take 1 capsule by mouth every twelve hours Keflex 500 mg Cap 500 mg = 1 cap(s), Oral, q12hr, X 7 day(s), # 14 cap(s), Refills(s) 0, Pharmacy: [facility] #[id number] Start Date: 06/19/22 Stop Date: 06/26/22 Status: Ordered Start: 04-14-2020 take 1 capsule by mo [facility] twice daily Keflex 500 mg Cap 500 mg = 1 cap(s), Oral, BID, # 14 cap(s), Refills(s) 0, Pharmacy: [facility] Start Date: 04/14/20 Status: Ordered ferrous [...] MG PO Daily August 05, 2023 12:00am Jecfdtchfkig-Efpyjwja-T utein (Centrum Silver) Tablet (7 sources) Start: 08-05-2023 take 1 tablet by mouth once daily Vzganxktguek-Fjwgpbfs-S utein (Centrum Silver) Tablet Active 1 TAB PO Daily August 05, 2023 1:00am Start: 08-05-2023 take 1 tablet by kristina th once daily Uulrcnxlbkvw-Xyryqkde-Uqmdjl (Centrum Silver) Tablet Active 1 TAB PO [...] BID, # 180 tab(s), Refills(s) 3, Pharmacy: [facility] Start Date: 07/10/20 Status: Ordered [...] for 7 day(s), 14 tab(s), Refill(s) 0, [id number] Start Date: 06/17/24 Stop Date: 06/24/24 Status: Ordered Start: 11-04-2022 End: 11-14-2022 Bactrim 400 mg-80 mg Tab 80 mg, Oral, q12hr for 10 day(s), 20 tab(s), Refill(s) 0, [facility] #[id number] Start Date: 11/04/22 Stop Date: 11/14/22 Status: Ordered Start: 06-11-2021 Bactrim DS 800 mg-160 mg Tab 160 mg, Oral, q12hr, 14 tab(s), Refill(s) 0, [facility] [facility] Start Date: 06/11/21 Status: Ordered Start: 12-01-2017 End: 12-01-2017 Sulfamethoxazole-Trimethopri m 800-160 mg tablet Discontinued TABLET November 30, 2017 11:00pm December 01, 2017 7:44am tamsulosin hydrochloride 0.4 mg oral capsule (8 sources) alpha-Adrenergic Jordy Start: 12-27-2022 take 1 capsule by mouth twice daily tamsulosin 0.4 mg Cap 0.4 mg = 1 cap(s), Oral, BID, # 30 cap(s), Refills(s) 0, Pharmacy: [facility] #[id number] Start Date: 12/27/22 Status: Ordered Completed/Discontinued Medications [...] kristina th every eight hours for pain Vale 325 mg-5 mg oral tablet 1 tab(s), Oral, q8hr for pain, 15 tab(s), Refill(s) 0, [facility] Start Date: 03/03/20 Status: Ordered Start: 02-25-2020 take 1 tablet by kristina th once Vale 325 mg-5 mg oral tablet 1 tab(s), [...] procedure, # 2 tab(s), Refills(s) 0, Pharmacy: [id number] Start Date: 01/20/24 Status: Ordered Start: 04-04-2022 take 1 tablet by kristina once daily Cipro 500 mg Tab 500 mg = 1 tab(s), Oral, Daily, Take 1 tablet the day before the procedure and 1 tablet after the procedure, # 2 tab(s), Refills(s) 0, Pharmacy: [facility] #[id number] Start Date: 11/26/22 Status: Ordered Start: 10-30-2021 take 1 tablet by kristina once daily Cipro 500 mg Tab 500 mg = 1 tab(s), Oral, Daily, Take 1 tablet the day before the procedure and 1 tablet after the procedure, # 2 tab(s), Refills(s) 0, Pharmacy: [facility] [place] [address] Start Date: 10/30/21 Status: Ordered clopidogrel 75 [...] 1 tablet by mouth four times daily Methen-M.Blue-S.Yoir-Ouxwo-Fhg (Uribel) 118-10-40.8-36 mg Capsule Discontinued 1 TAB [...] by mouth twice daily Sod Phos Di, Kerr-K Phos Kerr (Phospha 250 Neutral) 250 mg Tablet Discontinued [...] Coronary arteriosclerosis; 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] Onset: 8 [...] aftercare (5 sources) Drug therapy finding; Translations: [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] 12-29-2023 Episodic Other aftercare (5 sources) 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; Translations: [...] and due to atherosclerosis; Translations: [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 Comment on above: Performed By: #### L [id number] ####[facility] ([facility])[address] [place] [address] Calcium [Mass/Vol] 7.7 mg/dL Low 8.6-10.3 [facility] Comment on above: Performed By: #### L [id number] ####[facility] ([facility])[address] [place] [address] Chloride [Moles/Vol] 100 mmol/L Normal 98-107 [facility] Comment on above: Performed By: #### L [id number] ####[facility] ([facility])[address] [place] [address] CO2 [Moles/Vol] 26 mmol/L Normal 21-31 [facility] Comment on above: Performed By: #### L [id number] ####[facility] ([facility])[address] [place] [address] Creatinine [Mass/Vol] 0.98 mg/dL Normal 0.70-1.30 [facility] Comment on above: Performed By: #### L [id number] ####[facility] ([facility])[address] [place] [address] GLOMERULAR FILTRATION RATE ML/MIN/1.73 SQ M.PREDICTED 77.0 mL/min/1.73m*2 Normal >60.0 [facility] Comment on above: Result Comment: The [facility]???s estimated glomerular filtration rate (eGFR) will no [...] of individuals. Performed By: #### L [id number] ####[facility] ([facility])[address] [place] [address] Glucose [Mass/Vol] 81 mg/dL Normal 70-100 [facility] Comment on above: Performed By: #### L [id number] ####[facility] ([facility])[address] [place] [address] Potassium [Moles/Vol] 3.9 mmol/L Normal 3.5-5.1 [facility] Comment on above: Performed By: #### L [id number] ####[facility] ([facility])[address] [place] [address] Sodium [Moles/Vol] 131 mmol/L Low 136-145 [facility] Comment on above: Performed By: #### L [id number] ####[facility] ([facility])[address] [place] [address] Urea nitrogen [Mass/Vol] 22 mg/dL Normal 7-25 [facility] Comment on above: Performed By: #### L [id number] ####[facility] ([facility])[address] [place] [address] UREA NITROGEN/CREATININE (MASS RATIO) IN SER/PLAS 22.4 Normal [facility] Comment on above: Performed By: #### L [id number] ####[facility] [place] [address] CBCon 08-12-2024 Erythrocyte distribution width (RBC) [Ratio] 18.6 % High 11.5-15.0 [facility] Comment on above: Performed By: #### L [id number] ####[facility] [place], [place] [address] ERYTHROCYTE MEAN CORPUSCULAR HEMOGLOBIN CONCENTRATION (G/DL) BY AUTOMATED 31.2 g/dL Low 32.0-35.0 [facility] Comment on above: Performed By: #### L [id number] ####[facility] [place], [place] [address] Hematocrit (Bld) [Volume fraction] 28.5 % Low 39.0-55.0 [facility] Comment on above: Performed By: #### L [id number] ####[facility] ([facility])[address] [place], [place] [address] Hemoglobin (Bld) [Mass/Vol] 8.9 g/dL Low 13.0-17.0 [facility] Comment on above: Performed By: #### L [id number] ####[facility] ([facility])[address] [place], [place] [address] MCH (RBC) [Entitic mass] 29.3 pg Normal 27.0-33.0 [facility] Comment on above: Performed By: #### L [id number] ####[facility] ([facility])[address] [place] [address] MCV (RBC) [Entitic vol] 93.8 fL Normal 82.0-98.0 [facility] Comment on above: Performed By: #### L [id number] ####[facility] ([facility])[address] [place] [address] PLATELETS (10*3/UL) IN BLOOD AUTOMATED COUNT 169 10*3/uL Normal 150-400 [facility] Comment on above: Performed By: #### L [id number] ####[facility] ([facility])[address] [place] [address] RBC (Bld) [#/Vol] 3.04 10*6/uL Low 4.20-5.70 [facility] Comment on above: Performed By: #### L [id number] ####[facility] ([facility])[address] [place] [address] WBC (Bld) [#/Vol] 7.78 10*3/uL Normal 4.00-10.60 [facility] Comment on above: Performed By: #### L [id number] ####[facility] ([facility])[address] [place] [address] MAGNESIUMon 08-12-2024 Magnesium [Mass/Vol] 1.7 mg/dL Low 1.9-2.7 [facility] Comment on above: Performed By: #### L [id number] #### [facility] ([facility]) [address] [place] [address] PHOSPHORUSon 08-12-2024 Magnesium [Mass/Vol] 3.3 mg/dL Normal 2.5-5.0 [facility] Comment on above: Performed By: #### L [id number] ####[facility] ([facility])[address] [place] [address] POCT GLUCOSE METER UNSOLICIT ED RESULTSon 08-12-2024 Glucose [Mass/Vol] 139 mg/dL High 70-105 [facility] Comment on above: Order Comment: Waive d Testing in the ED is performed under the ED CLIA certificate #[id number]. Result Comment: elac umsky Performed By: #### L [id number] ####[facility] [place] [address] Glucose [Mass/Vol] 94 mg/dL Normal 70-105 [facility] Comment on above: Order Comment: Waive d Testing in the ED is performed under the ED CLIA certificate #[id number]. Result Comment: nsch eub Performed By: #### L [id number] #### [facility] ([facility]) [address] [place] [address] 30on 08-11-2024 30 The patient is Moderately [...] these barriers include meds as prescribed. Normal [facility] 30 Reviewed MRI thoraci c spine completed [...] Updated RN and trauma team, TUNDE Coronel. [facility] BASIC METABOLIC PANELon 07-28 Anion gap [Moles/Vol] 10 mmol/L Normal 7-20 [facility] Comment on above: Performed By: #### L [id number] #### [facility] ([facility]) [address] [place] [address] Calcium [Mass/Vol] 7.8 mg/dL Low 8.6-10.3 [facility] Comment on above: Performed By: #### L [id number] #### [facility] [address] [place] [address] Chloride [Moles/Vol] 98 mmol/L Normal 98-107 [facility] Comment on above: Performed By: #### L [id number] #### [facility] ([facility]) [address] [place] [address] CO2 [Moles/Vol] 24 mmol/L Normal 21-31 [facility] Comment on above: Performed By: #### L [id number] #### [facility] ([facility]) [address] [place] [address] Creatinine [Mass/Vol] 1.11 mg/dL Normal 0.70-1.30 [facility] Comment on above: Performed By: #### L [id number] #### [facility] ([facility]) [address] [place] [address] GLOMERULAR FILTRATION RATE ML/MIN/1.73 SQ M.PREDICTED 66.3 mL/min/1.73m*2 Normal >60.0 [facility] Comment on above: Result Comment: The [facility]???s estimated glomerular filtration rate (eGFR) will no [...] individuals. Performed By: #### L [id number] #### [facility] [address] [place] [address] Glucose [Mass/Vol] 150 mg/dL High 70-100 [facility] Comment on above: Performed By: #### L [id number] #### [facility] ([facility]) [address] [place] [address] Potassium [Moles/Vol] 4.0 mmol/L Normal 3.5-5.1 [facility] Comment on above: Performed By: #### L [id number] #### [facility] ([facility]) [address] [place] [address] Sodium [Moles/Vol] 128 mmol/L Low 136-145 [facility] Comment on above: Performed By: #### L [id number] #### [facility] ([facility]) [address] [place] [address] Urea nitrogen [Mass/Vol] 23 mg/dL Normal 7-25 [facility] Comment on above: Performed By: #### L [id number] #### [facility] ([facility]) [address] [place] [address] UREA NITROGEN/CREATININE (MASS RATIO) IN SER/PLAS 20.7 Normal [facility] Comment on above: Performed By: #### L [id number] #### [facility] ([facility]) [address] [place] [address] Anion gap [Moles/Vol] 9 mmol/L Normal 7-20 [facility] Comment on above: Performed By: #### L [id number] ####[facility] ([facility])[address] [place] [address] Calcium [Mass/Vol] 8.1 mg/dL Low 8.6-10.3 [facility] Comment on above: Performed By: #### L [id number] ####[facility] ([facility])[address] [place] [address] Chloride [Moles/Vol] 99 mmol/L Normal 98-107 [facility] Comment on above: Performed By: #### L [id number] ####[facility] ([facility])[address] [place] [address] CO2 [Moles/Vol] 24 mmol/L Normal 21-31 [facility] Comment on above: Performed By: #### L [id number] ####[facility] ([facility])[address] [place] [address] Creatinine [Mass/Vol] 1.05 mg/dL Normal 0.70-1.30 [facility] Comment on above: Performed By: #### L [id number] ####[facility] ([facility])[address] [place] [address] GLOMERULAR FILTRATION RATE ML/MIN/1.73 SQ M.PREDICTED 70.9 mL/min/1.73m*2 Normal >60.0 [facility] Comment on above: Result Comment: The [facility]???s estimated glomerular filtration rate (eGFR) will no [...] of individuals. Performed By: #### L [id number] ####[facility] ([facility])[address] [place] [address] Glucose [Mass/Vol] 110 mg/dL High 70-100 [facility] Comment on above: Performed By: #### L [id number] ####[facility] ([facility])[address] [place] [address] Potassium [Moles/Vol] 4.2 mmol/L Normal 3.5-5.1 [facility] Comment on above: Performed By: #### L [id number] ####[facility] ([facility])[address] [place] [address] Sodium [Moles/Vol] 128 mmol/L Low 136-145 [facility] Comment on above: Performed By: #### L [id number] ####[facility] ([facility])[address] [place] [address] Urea nitrogen [Mass/Vol] 22 mg/dL Normal 7-25 [facility] Comment on above: Performed By: #### L [id number] ####[facility] [place] [address] UREA NITROGEN/CREATININE (MASS RATIO) IN SER/PLAS 21.0 Normal [facility] Comment on above: Performed By: #### L [id number] ####[facility] [place] [address] CBCon 08-11-2024 Erythrocyte distribution width (RBC) [Ratio] 18.2 % High 11.5-15.0 [facility] Comment on above: Performed By: #### L [id number] ####[facility] ([facility] [place] [address] ERYTHROCYTE MEAN CORPUSCULAR HEMOGLOBIN CONCENTRATION (G/DL) BY AUTOMATED 31.0 g/dL Low 32.0-35.0 [facility] Comment on above: Performed By: #### L [id number] ####[facility] [place] [address] Hematocrit (Bld) [Volume fraction] 29.4 % Low 39.0-55.0 [facility] Comment on above: Performed By: #### L [id number] ####[facility] ([facility])[address] [place] [address] Hemoglobin (Bld) [Mass/Vol] 9.1 g/dL Low 13.0-17.0 [facility] Comment on above: Performed By: #### L [id number] ####[facility] ([facility])[address] [place] [address] MCH (RBC) [Entitic mass] 29.3 pg Normal 27.0-33.0 [facility] Comment on above: Performed By: #### L [id number] ####[facility] ([facility])[address] [place] [address] MCV (RBC) [Entitic vol] 94.5 fL Normal 82.0-98.0 [facility] Comment on above: Performed By: #### L [id number] ####[facility] ([facility])[address] [place] [address] PLATELETS (10*3/UL) IN BLOOD AUTOMATED COUNT 197 10*3/uL Normal 150-400 [facility] Comment on above: Performed By: #### L [id number] ####[facility] ([facility])[address] [place] [address] RBC (Bld) [#/Vol] 3.11 10*6/uL Low 4.20-5.70 [facility] Comment on above: Performed By: #### L [id number] ####[facility] ([facility])[address] [place] [address] WBC (Bld) [#/Vol] 7.92 10*3/uL Normal 4.00-10.60 [facility] Comment on above: Performed By: #### L [id number] ####[facility] ([facility])[address] [place] [address] MAGNESIUMon 08-11-2024 Magnesium [Mass/Vol] 2.1 mg/dL Normal 1.9-2.7 [facility] Comment on above: Performed By: #### L [id number] #### [facility] ([facility]) [address] [place] [address] Magnesium [Mass/Vol] 1.6 mg/dL Low 1.9-2.7 [facility] Comment on above: Performed By: #### L [id number] #### [facility] [address] [place] [address] PHOSPHORUSon 08-11-2024 Magnesium [Mass/Vol] 2.2 mg/dL Low 2.5-5.0 [facility] Comment on above: Performed By: #### L [id number] ####[facility] [place] [address] Magnesium [Mass/Vol] 2.1 mg/dL Low 2.5-5.0 [facility] Comment on above: Performed By: #### L [id number] #### [facility] ([facility]) [address] [place] [address] POCT GLUCOSE METER UNSOLICIT ED RESULTSon 08-11-2024 Glucose [Mass/Vol] 236 mg/dL High 70-105 [facility] Comment on above: Order Comment: Waive d Testing in the ED is performed under the ED CLIA certificate #[id number]. Result Comment: [facility] eub Performed By: #### L [id number] #### [facility] ([facility]) [address] [place] [address] Glucose [Mass/Vol] 136 mg/dL High 70-105 [facility] Comment on above: Order Comment: Waive d Testing in the ED is performed under the ED CLIA certificate #[id number]. Result Comment: elac umsky Performed By: #### L [id number] ####[facility] [place] [address] Glucose [Mass/Vol] 127 mg/dL High 70-105 [facility] Comment on above: Order Comment: Waive d Testing in the ED is performed under the ED CLIA certificate #[id number]. Result Comment: ptso u5 Performed By: #### L [id number] #### [facility] ([facility]) [address] [place] [address] 30on 08-10-2024 30 The patient is Moderately [...] and maintained or improved Outcome: Progressing Normal [facility] 30 Daily Case Managemen t Update Multidisciplinary [...] is from home with . Current with [facility], unsure of company name. Diet: Dietary Orders (From admission, onward) Start Ordered 08/10/24 1336 Regular Diet Diet effective now Question: Room Service? Answer: Yes 08/10/24 1337 Physician Expected Discharge Date: 08/12/2024 Discharge Delays: PT Six Click Score: 14 OT Six Click Score: PT Recommendations: OT Recommendations: Is expected discharge disposition appropriate for patient?: Yes New Consults: Normal [facility] BASIC METABOLIC PANELon 07-28 Anion gap [Moles/Vol] 10 mmol/L Normal 7-20 [facility] Comment on above: Performed By: #### L [id number] #### [facility] ([facility]) [address] [place] [address] Calcium [Mass/Vol] 7.9 mg/dL Low 8.6-10.3 [facility] Comment on above: Performed By: #### L [id number] #### [facility] ([facility]) [address] [place] [address] Chloride [Moles/Vol] 100 mmol/L Normal 98-107 [facility] Comment on above: Performed By: #### L [id number] #### [facility] ([facility]) [address] [place] [address] CO2 [Moles/Vol] 24 mmol/L Normal 21-31 [facility] Comment on above: Performed By: #### L [id number] #### [facility] ([facility]) [address] [place] [address] Creatinine [Mass/Vol] 1.14 mg/dL Normal 0.70-1.30 [facility] Comment on above: Performed By: #### L [id number] #### [facility] ([facility]) [address] [place] [address] GLOMERULAR FILTRATION RATE ML/MIN/1.73 SQ M.PREDICTED 64.2 mL/min/1.73m*2 Normal >60.0 [facility] Comment on above: Result Comment: The [facility]???s estimated glomerular filtration rate (eGFR) will no [...] individuals. Performed By: #### L [id number] #### [facility] ([facility]) [address] [place] [address] Glucose [Mass/Vol] 112 mg/dL High 70-100 [facility] Comment on above: Performed By: #### L [id number] #### [facility] ([facility]) [address] [place] [address] Potassium [Moles/Vol] 4.0 mmol/L Normal 3.5-5.1 [facility] Comment on above: Performed By: #### L [id number] #### [facility] [facility] [address] [place] [address] Sodium [Moles/Vol] 130 mmol/L Low 136-145 [facility] Comment on above: Performed By: #### L [id number] #### [facility] ([facility]) [address] [place] [address] Urea nitrogen [Mass/Vol] 25 mg/dL Normal 7-25 [facility] Comment on above: Performed By: #### L [id number] #### [facility] ([facility]) [address] [place] [address] UREA NITROGEN/CREATININE (MASS RATIO) IN SER/PLAS 21.9 Normal [facility] Comment on above: Performed By: #### L [id number] #### [facility] ([facility]) [address] [place] [address] Anion gap [Moles/Vol] 10 mmol/L Normal 7-20 [facility] Comment on above: Performed By: #### L [id number] #### [facility] [address] [place] [address] Calcium [Mass/Vol] 8.1 mg/dL Low 8.6-10.3 [facility] Comment on above: Performed By: #### L [id number] #### [facility] ([facility] [address] [place] [address] Chloride [Moles/Vol] 98 mmol/L Normal 98-107 [facility] Comment on above: Performed By: #### L [id number] #### [facility] ([facility] [address] [place] [address] CO2 [Moles/Vol] 22 mmol/L Normal 21-31 [facility] Comment on above: Performed By: #### L [id number] #### [facility] ([facility]) [address] [place] [address] Creatinine [Mass/Vol] 1.17 mg/dL Normal 0.70-1.30 [facility] Comment on above: Performed By: #### L [id number] #### [facility] ([facility] [address] [place] [address] GLOMERULAR FILTRATION RATE ML/MIN/1.73 SQ M.PREDICTED 62.2 mL/min/1.73m*2 Normal >60.0 [facility] Comment on above: Result Comment: The [facility]???s estimated glomerular filtration rate (eGFR) will no [...] individuals. Performed By: #### L [id number] #### [facility] ([facility]) [address] [place] [address] Glucose [Mass/Vol] 64 mg/dL Low 70-100 [facility] Comment on above: Performed By: #### L [id number] #### [facility] ([facility]) [address] [place] [address] Potassium [Moles/Vol] 4.1 mmol/L Normal 3.5-5.1 [facility] Comment on above: Performed By: #### L [id number] #### [facility] ([facility]) [address] [place] [address] Sodium [Moles/Vol] 126 mmol/L Low 136-145 [facility] Comment on above: Performed By: #### L [id number] #### [facility] ([facility]) [address] [place] [address] Urea nitrogen [Mass/Vol] 29 mg/dL High 7-25 [facility] Comment on above: Performed By: #### L [id number] #### [facility] ([facility]) [address] [place] [address] UREA NITROGEN/CREATININE (MASS RATIO) IN SER/PLAS 24.8 Normal [facility] Comment on above: Performed By: #### L [id number] #### [facility] ([facility]) [address] [place] [address] CBCon 08-10-2024 Erythrocyte distribution width (RBC) [Ratio] 17.6 % High 11.5-15.0 [facility] Comment on above: Performed By: #### L [id number] ####[facility] (BEAKER)[address] [place] [address] ERYTHROCYTE MEAN CORPUSCULAR HEMOGLOBIN CONCENTRATION (G/DL) BY AUTOMATED 31.5 g/dL Low 32.0-35.0 [facility] Comment on above: Performed By: #### L [id number] ####[facility] ([facility] [place] [address] Hematocrit (Bld) [Volume fraction] 29.2 % Low 39.0-55.0 [facility] Comment on above: Performed By: #### L [id number] ####[facility] ([facility])[address] [place] [address] Hemoglobin (Bld) [Mass/Vol] 9.2 g/dL Low 13.0-17.0 [facility] Comment on above: Performed By: #### L [id number] ####[facility] ([facility] [place] [address] MCH (RBC) [Entitic mass] 29.1 pg Normal 27.0-33.0 [facility] Comment on above: Performed By: #### L [id number] ####[facility] ([facility] [address] MCV (RBC) [Entitic vol] 92.4 fL Normal 82.0-98.0 [facility] Comment on above: Performed By: #### L [id number] ####[facility] ([facility] [place] [address] PLATELETS (10*3/UL) IN BLOOD AUTOMATED COUNT 175 10*3/uL Normal 150-400 [facility] Comment on above: Performed By: #### L [id number] ####[facility] ([facility] [place] [address] RBC (Bld) [#/Vol] 3.16 10*6/uL Low 4.20-5.70 [facility] Comment on above: Performed By: #### L [id number] ####[facility] ([facility])[address] [place] [address] WBC (Bld) [#/Vol] 8.65 10*3/uL Normal 4.00-10.60 [facility] Comment on above: Performed By: #### L [id number] ####[facility] (PONCE)[address] [place] [address] CONSULTon 08-10-2024 CONSULT [facility] CONSULT [...] 12/26/23 Yes Arcadio Nuñez MD HYDROcodone-acetaminop hen (Vale) 5-325 mg tablet 1 tablet as needed [...] joint deformity. (more content not included)... Normal [facility] CONSULT NEUROSURGERY NOTE SUBJECTIVE: Chief complaint: T12 [...] worsening pain that was not relieved by Vale. Pain remains in his low back. Worse [...] 0-5 Units, 0-5 Units, subcutaneous, q6h [facility], [facility], [place] lactated Ringer's infusion, 50 mL/hr, [...] no apparen (more content not included)... Normal [facility] MAGNESIUMon 08-10-2024 Magnesium [Mass/Vol] 1.7 mg/dL Low 1.9-2.7 [facility] Comment on above: Performed By: #### L [id number] ####[facility] ([facility]ER)[address] [place] [address] Magnesium [Mass/Vol] 1.4 mg/dL Low 1.9-2.7 [facility] Comment on above: Performed By: #### L [id number] ####[facility] ([facility]AKER)[address] [place] [address] MR THORACIC SPINE W AND WO C [...] contrast injected intravenously without reported complication. FINDINGS: Revenue Coordinator images demonstrate multilevel cervical spine degenerative changes [...] signed: Dimitri Coyne. 9 Invalid Interpretation Code [facility] PHOSPHORUSon 08-10-2024 Magnesium [Mass/Vol] 2.8 mg/dL Normal 2.5-5.0 [facility] Comment on above: Performed By: #### L [id number] #### [facility] ([employer]) [address] [place] [address] Magnesium [Mass/Vol] 2.8 mg/dL Normal 2.5-5.0 [facility] Comment on above: Performed By: #### L [id number] ####[facility] ([facility]AKER)[address] [facility] [place] [address] POCT GLUCOSE METER UNSOLICIT ED RESULTSon 08-10-2024 Glucose [Mass/Vol] 162 mg/dL High 70-105 [facility] Comment on above: Order Comment: Waive d Testing in the ED is performed under the ED CLIA certificate #[id number]. Result Comment: ptso u5 Performed By: #### L [id number] #### [facility] ([facility]) [address] [place] [address] Glucose [Mass/Vol] 98 mg/dL Normal 70-105 [facility] Comment on above: Order Comment: Waive d Testing in the ED is performed under the ED CLIA certificate #[id number]. Result Comment: dglo nickolas Performed By: #### L [id number] ####[facility] ([facility])[address] [place] [address] TROPONIN Ion 08-10-2024 Troponin I.cardiac [Mass/Vol] 0.05 ng/mL High 0.00-0.04 [facility] Comment on above: Performed By: #### L [id number] #### [facility] ([facility]) [address] [place] [address] APTTon 08-09-2024 ACTIVATED PARTIAL THROMBOPLASTIN TIME IN PPP BY COAGULATION ASSAY 30.0 Seconds Normal 25.0-35.0 [facility] Comment on above: Result Comment: Clin ical significance of the APTT is questionable in the presence of heparin. Performed By: #### L [id number] #### [facility] ([facility]) [address] [place] [address] BASIC METABOLIC PANELon 07-28 Anion gap [Moles/Vol] 11 mmol/L Normal 7-20 [facility] Comment on above: Performed By: #### L [id number] #### [facility] ([facility]) [address] [place] [address] Calcium [Mass/Vol] 8.3 mg/dL Low 8.6-10.3 [facility] Comment on above: Performed By: #### L [id number] #### [facility] ([facility]) [address] [place] [address] Chloride [Moles/Vol] 97 mmol/L Low 98-107 [facility] Comment on above: Performed By: #### L [id number] #### [facility] ([facility]) [address] [place] [address] CO2 [Moles/Vol] 22 mmol/L Normal 21-31 [facility] Comment on above: Performed By: #### L [id number] #### [facility] ([facility]) [address] [place] [address] Creatinine [Mass/Vol] 1.16 mg/dL Normal 0.70-1.30 [facility] Comment on above: Performed By: #### L [id number] #### [facility] ([facility]) [address] [place] [address] GLOMERULAR FILTRATION RATE ML/MIN/1.73 SQ M.PREDICTED 62.9 mL/min/1.73m*2 Normal >60.0 [facility] Comment on above: Result Comment: The [facility]???s estimated glomerular filtration rate (eGFR) will no [...] individuals. Performed By: #### L [id number] #### [facility] ([facility]) [address] [place] [address] Glucose [Mass/Vol] 76 mg/dL Normal 70-100 [facility] Comment on above: Performed By: #### L [id number] #### [facility] ([facility]) [address] [place] [address] Potassium [Moles/Vol] 4.4 mmol/L Normal 3.5-5.1 [facility] Comment on above: Performed By: #### L [id number] #### [facility] ([facility]) [address] [place] [address] Sodium [Moles/Vol] 126 mmol/L Low 136-145 [facility] Comment on above: Performed By: #### L [id number] #### [facility] ([facility]) [address] [address] Urea nitrogen [Mass/Vol] 29 mg/dL High 7-25 [facility] Comment on above: Performed By: #### L [id number] #### [facility] ([facility]) [address] [place] [address] UREA NITROGEN/CREATININE (MASS RATIO) IN SER/PLAS 25.0 Normal [facility] Comment on above: Performed By: #### L [id number] #### [facility] ([facility]) [address] [place] [address] CBC WITH AUTO DIFFERENTIALon 08-09-2024 Basophils (Bld) [#/Vol] 0.02 10*3/uL Normal 0.00-0.20 [facility] Comment on above: Performed By: #### L [id number] #### [facility] ([facility]) [address] [address] Basophils/100 WBC (Bld) 0.2 % Normal 0.0-1.0 [facility] Comment on above: Performed By: #### L [id number] #### [facility] [address] [place] [address] Eosinophils (Bld) [#/Vol] 0.03 10*3/uL Normal 0.00-0.50 [facility] Comment on above: Performed By: #### L [id number] #### [facility] ([facility] [address] [place] [address] Eosinophils/100 WBC (Bld) 0.3 % Normal 0.0-6.0 [facility] Comment on above: Performed By: #### L [id number] #### [facility] ([facility]) [address] [place] [address] Erythrocyte distribution width (RBC) [Ratio] 17.6 % High 11.5-15.0 [facility] Comment on above: Performed By: #### L [id number] #### [facility] ([facility]) [address] [place] [address] ERYTHROCYTE MEAN CORPUSCULAR HEMOGLOBIN CONCENTRATION (G/DL) BY AUTOMATED 31.0 g/dL Low 32.0-35.0 [facility] Comment on above: Performed By: #### L [id number] #### [facility] ([facility]) [address] [place] [address] Hematocrit (Bld) [Volume fraction] 30.6 % Low 39.0-55.0 [facility] Comment on above: Performed By: #### L [id number] #### [facility] ([facility]) [address] [place] [address] Hemoglobin (Bld) [Mass/Vol] 9.5 g/dL Low 13.0-17.0 [facility] Comment on above: Performed By: #### L [id number] #### [facility] ([facility]) [address] [place] [address] Immature granulocytes (Bld) [#/Vol] 0.10 10*3/uL Normal 0.00-0.20 [facility] Comment on above: Performed By: #### L [id number] #### [facility] ([facility]) [address] [place] [address] Immature granulocytes/100 WBC (Bld) 1.1 % High 0.0-1.0 [facility] Comment on above: Performed By: #### L [id number] #### [facility] ([facility] [address] [place] [address] Lymphocytes (Bld) [#/Vol] 0.77 10*3/uL Low 1.20-4.00 [facility] Comment on above: Performed By: #### L [id number] #### [facility] ([facility]) [address] [place] [address] Lymphocytes/100 WBC (Bld) 8.5 % Low 20.0-45.0 [facility] Comment on above: Performed By: #### L [id number] #### [facility] ([facility]) [address] [place] [address] MCH (RBC) [Entitic mass] 29.4 pg Normal 27.0-33.0 [facility] Comment on above: Performed By: #### L [id number] #### [facility] ([facility]) [address] [place] [address] MCV (RBC) [Entitic vol] 94.7 fL Normal 82.0-98.0 [facility] Comment on above: Performed By: #### L [id number] #### [facility] ([facility]) [address] [place] [address] Monocytes (Bld) [#/Vol] 0.64 10*3/uL Normal 0.10-1.00 [facility] Comment on above: Performed By: #### L [id number] #### [facility] ([facility]) [address] [place] [address] Monocytes/100 WBC (Bld) 7.1 % Normal 5.0-12.0 [facility] Comment on above: Performed By: #### L [id number] #### [facility] ([facility]) [address] [place] [address] Neutrophils (Bld) [#/Vol] 7.45 10*3/uL Normal 1.60-7.60 [facility] Comment on above: Performed By: #### L [id number] #### [facility] [address] [place] [address] Neutrophils/100 WBC (Bld) 82.8 % High 40.0-72.0 [facility] Comment on above: Performed By: #### L [id number] #### [facility] ([facility]) [address] [place] [address] NRBC (PER 100 WBCS) BY AUTOMATED COUNT 0.0 % Normal 0 [facility] Comment on above: Performed By: #### L [id number] #### [facility] ([facility]) [address] [place] [address] PLATELETS (10*3/UL) IN BLOOD AUTOMATED COUNT 212 10*3/uL Normal 150-400 [facility] Comment on above: Performed By: #### L [id number] #### [facility] ([facility]) [address] [place] [address] RBC (Bld) [#/Vol] 3.23 10*6/uL Low 4.20-5.70 [facility] Comment on above: Performed By: #### L [id number] #### [facility] ([facility]) [address] [place] [address] WBC (Bld) [#/Vol] 9.01 10*3/uL Normal 4.00-10.60 [facility] Comment on above: Performed By: #### L [id number] #### [facility] ([facility]) [address] [place] [address] EDNURSon 08-09-2024 EDNURS Mode of arrival (squ ad #, walk in, police, etc): [facility], stretcher, transfer from [facility] Chief complaint(s): T12 fracture, back pain Arrival Note (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 Patient was attempting to mount his horse from a mounting block on 07/28/24 when he slipped and fell. Patient was taken to [facility] for eval and found to have a T12 fracture. Patient was discharged home from hospital as he states he was told the fracture was stable. For the past few days patient has had increasing pain in his back. He returned to [facility] today, was re-scanned, and found to have [...] be coming up to visit patient tomorrow. [facility] EDPROVon 08-09-2024 EDPROV History of Present Illness Chief Complaint Patient presents with Back Pain T12 fracture Patient is an 84-year-old male who presents to the emergency department for evaluation of back pain. Patient was transferred from [facility]. He states he was trying to get [...] 7.45 Lymphocyte (more content not included)... Normal [facility] HPon 08-09-2024 HP Subjective Chief Complaint: Trauma [...] history of Allergies, Arthritis, Bladder problem, Cancer ([facility]), Carotid stenosis, CHF (congestive heart failure) ([facility]), Coronary artery disease, Hyperlipidemia, Hypertension, Ischemic cardiomyopathy, Kidney problem, and Myocardial infarction ([facility]). Past Surgical History: has a past surgical [...] drugs. Family History: pulled available information in [facility] from previous visits No family history [...] lb)] 66.2 kg (146 lb) (08/09 2043) [place] Coma Scale Score: 15 Physical Exam: General: [...] PPP BY COAGULATION ASSAY 1.20 High 0.90-1.10 [facility] Comment on above: Result Comment: ACCC P [...] 1995;[id number]. Performed By: #### L [id number] #### [facility] [employer]uling [employer] ([facility]) [address] [place] [address] PROTHROMBIN TIME (PT) IN PPP BY COAGULATION ASSAY 15.2 Seconds High 12.3-14.8 [facility] Comment on above: Performed By: #### L [id number] #### [facility] ([facility]) [address] [place] [address] C Urineon 07-14-2024 Bacteria identified Cx Nom [...] Locations R1: This test was performed at: [employer] [facility], [address] [place] [address], [id number]- , , Normal [facility] Comment on above: Performed By: #### [id number] #### [facility] Laboratory [address] [place] [address] Erythrocyte distribution wid th Auto (RBC) [Ratio]on 06-21-2024 Erythrocyte distribution width (RBC) [Ratio] Erythrocyte distribution width [Ratio] by Automated count High 11.0-15.0 [facility] Estimated glomerular filtrat ion rate (GFR) non- Americanon 06-21-2024 GFR/1.73 sq M.predicted among non-blacks MDRD (S/P/Bld) [Vol rate/Area] Estimated glomerular filtration rate (GFR) non- Low >=60 mL/min/1.73 m 2 [facility] Hematocrit Auto (Bld) [Volum e fraction]on 06-21-2024 Hematocrit (Bld) [Volume fraction] Hematocrit [Volume Fraction] of Blood by Automated count Low 42.0-54.0 [facility] Hemoglobin [Mass/volume] in Bloodon 06-21-2024 Hemoglobin (Bld) [Mass/Vol] Hemoglobin [Mass/volume] in Blood Low 14.0-18.0 [facility] Laboratory - Chemistry and C hemistry - challengeon 06-21-2024 Albumin [Mass/Vol] 2.5 g/dL Low 3.4-5.0 [facility] Calcium [Mass/Vol] 9.1 mg/dL 8.5-10.1 [facility] Chloride [Moles/Vol] 97 mmol/L Low 98-107 [facility] CO2 [Moles/Vol] 21.1 mmol/L 21.0-32.0 [facility] Creatinine [Mass/Vol] 2.28 mg/dL High 0.70-1.30 [facility] GFR/1.73 sq M.predicted MDRD (S/P/Bld) [Vol rate/Area] 34 mL/min/{1.73_m2} Low >=60 mL/min/1.73 m 2 [facility] Glucose [Mass/Vol] 92 mg/dL 74-106 [facility] Magnesium [Mass/Vol] 1.7 mg/dL Low 1.8-2.4 [facility] Potassium [Moles/Vol] 5.9 mmol/L High 3.5-5.1 [facility] Sodium [Moles/Vol] 129 mmol/L Low 136-145 [facility] Urea nitrogen [Mass/Vol] 32.0 mg/dL High 7.0-18.0 [facility] Urea nitrogen/Creatinine [Mass ratio] 14.0 mg/mg [facility] Bilirubin Ql (U) Negative NEGATIVE [facility] Glucose (U) [Mass/Vol] Negative NEGATIVE [facility] Ketones Ql (U) Negative NEGATIVE [facility] pH (U) 7.0 [pH] 5.0-9.0 [facility] Specific gravity (U) [Rel density] 1.025 1.005-1.025 [facility] Urobilinogen Qn (U) 0.2 {Raffi'U}/dL 0.2-1.0 [facility] Laboratory - Specimen inform ationon 06-21-2024 Appearance (U) CLEAR CLEAR [facility] Color (U) LT. YELLOW YELLOW [facility] Laboratory - Urinalysison Leukocyte esterase Test strip Ql (U) TRACE Abnormal NEGATIVE [facility] Nitrite Ql (U) Negative NEGATIVE [facility] Protein Ql (U) 100 mg/dL Abnormal NEG/TRACE [facility] Leukocytes [#/volume] correc ronald for nucleated erythrocytes in Blood by Automated counon 06-21-2024 WBC corrected for nucl RBC Auto (Bld) [#/Vol] Leukocytes [#/volume] corrected for nucleated erythrocytes in Blood by Automated coun 4.0-11.0 [facility] MCH Auto (RBC) [Entitic mass ]on 06-21-2024 MCH (RBC) [Entitic mass] MCH [Entitic ma ss] by Automated count 25.9-34.0 [facility] MCHC Auto (RBC) [Mass/Vol]on 06-21-2024 MCHC (RBC) [Mass/Vol] MCHC [Mass/volume] by Automated count 29.9-35.2 [facility] MCV Auto (RBC) [Entitic vol] on 06-21-2024 MCV (RBC) [Entitic vol] MCV [Entitic vol ume] by Automated count High 80.0-94.0 [facility] Microalbumin [Mass/volume] i n Urineon 06-21-2024 Albumin DL <= 20 mg/L (U) [Mass/Vol] Microalbumin [Mass/volume] in Urine <=30.0 [facility] No Panel Informationon 06-21 25-Hydroxy Vitamin D Total 59.4 ng/mL [facility] Comment on above: <20 ng/mL Vit D defi cient20-<30 ng/mL Vit D -684 ng/mL Vit D sufficient>100 ng/mL Potential Toxicity Parathyroid Hormone (Intact) 39 pg/mL 15-65 [facility] Comment on above: Performed at: [facility] [email or web address] [address] [id number] Director: Naveen Pozo PhD, Phone: [phone] Phosphorus Level 3.0 mg/dL 2.6-4.7 [facility] Urine Occult Blood MODERATE Abnormal NEGATIVE [facility] Urine Random Creatinine 60.34 mg/dL 20.0 0-300.0 0 [facility] Platelet mean volume Auto (B ld) [Entitic vol]on 06-21-2024 Platelet mean volume (Bld) [Entitic vol] Platelet mean volume [Entitic volume] in Blood by Automated count 9.5-13.5 [facility] Platelets Auto (Bld) [#/Vol] on 06-21-2024 Platelets (Bld) [#/Vol] Platelets [#/vol ume] in Blood by Automated count 150-450 [facility] RBC Auto (Bld) [#/Vol]on RBC (Bld) [#/Vol] Erythrocytes [#/volume] in Blood by Automated count Low 4.70-6.10 [facility] Serum or plasma anion gap de terminationon 06-21-2024 Anion gap [Moles/Vol] Serum or plasma an ion gap determination [facility] Urine microalbumin/creatinin e mass ratioon 06-21-2024 Albumin/Creatinine DL <= 20 mg/L (U) [Mass ratio] Urine microalbumin/creatinin e mass ratio High 0.0-29.9 [facility] Comment on above: NO MICROALBUMINURIA 0-29 [...] Locations R1: This test was performed at: [facility], [address] [place] [address], [facility]- , , Normal [facility] Comment on above: Performed By: #### [id number] #### [facility] Laboratory [address] [place] [address] IR nephrostomy tube chg UNon 06-14-2024 IR nephrostomy tube chg UN [facility] [place] [address] Interventional Radiology Rpt Signed Patient: Mykel Olivera MR#: [id number] : 1940 Acct:[id number] Age/Sex: 84 / M ADM Date: 06/14/24 Loc: IR Room: Type: [facility] Attending Dr: Kami Venegas MD Copies [...] advanced into the collecting system. A 12 Belgian tube was administered into the renal collecting system with wire guidance. Pigtail catheter locked. Tube secured to skin. Adequate position confirmed with contrast administration. No immediate complications. Patient discharged in satisfactory condition. IR/IR nephrostomy tube chg UN IMPRESSION: Successful replacement of right percutaneous nephrostomy tube Impression dictated by: Declan Moreira M.D.06/14/2024 12:45 PM Dictation Location: [place] [address] Transcribed By: [facility] 06/14/24 1245 Dictated By: Declan Moreira DO 06/14/24 1238 Signed By: 06/14/24 1245 Normal [facility] Follow-Upon 06-09-2024 Follow-Up [id number] Mykel Olivera 1940 M Date Provider Department Center 06/09/2024 [address], EHAB BH CARD [facility] No family history on file Level of Service:27519 ME OFFICE/OUTPATIENT ESTABLISHED MOD MDM 30 MIN Normal [facility] CBC AND AUTO DIFFon 06-04-20 ABSOLUTE BASOPHIL 0.0 X10E9/L Normal 0.0-0.2 [facility] Comment on above: Performed By: #### C BCA, CMP, 1833-, 17214-6, FEPR, 2276-4, 2284-8, 2131-9, TSHR #### [facility] ([id number]) [address], [address] [place] [address] ABSOLUTE NEUTROPHIL 7.7 X10E9/L High 1.5-6.[address] [facility] Comment on above: Performed By: #### C BCA, CMP, 1833-, 00575-0, FEPR, 2276-4, 2284-8, 213-9, TSHR #### [facility] ([id number]) [address], [address] [place] [address] Basophils/100 WBC (Bld) 0.3 % Normal [facility] Comment on above: Performed By: #### C BCA, CMP, 1833-, 25167-4, FEPR, 2276-4, 2284-8, 2132-9, TSHR #### [facility] ([id number]) [address], [address] [address] Eosinophils (Bld) [#/Vol] 0.1 10*3/uL Normal 0.0-0.4 [facility] Comment on above: Performed By: #### C BCA, CMP, 1833-, 28241-7, FEPR, 2276-4, 2284-8, 9, TSHR #### [facility] ([id number]) [address] [address] Eosinophils/100 WBC (Bld) 1.3 % Normal [facility] Comment on above: Performed By: #### C BCA, CMP, 1833-07, , FEPR, 2276-4, 2284-8, 2132-03, TSHR #### [facility] ([id number]) [address] [address] Erythrocyte distribution width (RBC) [Ratio] 15.3 % High 11.5-15.0 [facility] Comment on above: Performed By: #### C BCA, CMP, 1833-07, , FEPR, 2276-4, 2283-8, 2132-03, TSHR #### [facility] ([id number]) [address] [address] Hematocrit (Bld) [Volume fraction] 24.1 % Low 39-49 [facility] Comment on above: Performed By: #### C BCA, CMP, 1833-07, , FEPR, 2276-4, 2284-8, 9, TSHR #### [facility] ([id number]) [address] [address] Hemoglobin (Bld) [Mass/Vol] 8.4 g/dL Low 13.0-17.0 [facility] Comment on above: Performed By: #### C BCA, CMP, 1833-07, , FEPR, 2276-4, 2284-8, 2132-03, TSHR #### [facility] ([id number]) [address], [address] [place] [address] Lymphocytes (Bld) [#/Vol] 0.4 10*3/uL Low 1.0-3.5 [facility] Comment on above: Performed By: #### C BCA, CMP, 1833-, , FEPR, 2275-4, 8, 2132-03, TSHR #### [facility] ([id number]) [address], [address] [place] [address] Lymphocytes/100 WBC (Bld) 4.1 % Normal [facility] Comment on above: Performed By: #### C BCA, CMP, 1833-, , FEPR, 2275-, 2284-02, 2132-03, TSHR #### [facility] ([id number]) [address], [address] [place] [address] MCH (RBC) [Entitic mass] 31.9 pg Normal 27-34 [facility] Comment on above: Performed By: #### C BCA, CMP, 1833-, , FEPR, 2275-4, 2284-02, 2132-03, TSHR #### [facility] ([id number]) [address], [address] [place] [address] MCHC (RBC) [Mass/Vol] 34.9 g/dL Normal 32-36 [facility] Comment on above: Performed By: #### C BCA, CMP, 1833-, , FEPR, 2275-4, 2284-02, 2132-03, TSHR #### [facility] ([id number]) [address], [address] [place] [address] MCV (RBC) [Entitic vol] 91 fL Normal 80-100 P [facility] Comment on above: Performed By: #### C BCA, CMP, 1834-1, 02326-1, FEPR, 2276-4, 2284-8, 2131-9, TSHR #### [facility] ([id number]) [address], [address] [place] [address] Monocytes (Bld) [#/Vol] 1.1 10*3/uL High 0-0.9 [facility] Comment on above: Performed By: #### C BCA, CMP, 1834-1, 86959-3, FEPR, 2276-4, 2284-8, 2131-9, TSHR #### [facility] ([id number]) [address], [facility] [address] [place] [address] Monocytes/100 WBC (Bld) 11.6 % Normal [facility] Comment on above: Performed By: #### C BCA, CMP, 1833-, 13305-2, FEPR, 2276-4, 2284-8, 2131-9, TSHR #### [facility] ([id number]) [address], [address] [place] [address] Neutrophils/100 WBC (Bld) 82.7 % Normal [facility] Comment on above: Performed By: #### C BCA, CMP, 1833-, 00818-4, FEPR, 2276-4, 2284-8, 2131-9, TSHR #### [facility] ([id number]) [address], [address] [place] [address] Platelet mean volume (Bld) [Entitic vol] 7.5 fL Normal 7-12 [facility] Comment on above: Performed By: #### C BCA, CMP, 4-, 09470-0, FEPR, 2276-4, 2284-8, 2-9, TSHR #### [facility] ([id number]) [address], [address] [place] [address] Platelets (Bld) [#/Vol] 199 10*3/uL Normal 150-450 [facility] Comment on above: Performed By: #### C BCA, CMP, 1833-, 90970-2, FEPR, 2276-4, 2284-8, 2131-9, TSHR #### [facility] ([id number]) [address], [address] [place] [address] POLYCHROMASIA 1+ Abnormal NONE [facility] Comment on above: Performed By: #### C BCA, CMP, 1833-, 32495-1, FEPR, 2276-4, 2284-8, 2132-03, TSHR #### [facility] ([id number]) [address], [address] [place] [address] RBC COUNT 2.64 X10E12/L Low 4.10-5.70 [facility] Comment on above: Performed By: #### C BCA, CMP, 1833-07, , FEPR, 2276-4, 2283-8, 2132-03, TSHR #### [facility] ([id number]) [address], [address] [place] [address] WBC (Bld) [#/Vol] 9.4 10*3/uL Normal 4.0-11.0 [facility] Comment on above: Performed By: #### C BCA, CMP, 1833-07, , FEPR, 2276-4, 2284-8, 2132-03, TSHR #### [facility] ([id number]) [address] [place] [address] COMPREHENSIVE METABOLIC PANE Zoran 06-04-2024 Albumin [Mass/Vol] 2.7 g/dL Low 3.2-5.3 [facility] Comment on above: Performed By: #### C BCA, CMP, 1833-, 63788-0, FEPR, 2276-4, 2284-8, 9, TSHR #### [facility] ([id number]) [address], [address] [place] [address] ALP [Catalytic activity/Vol] 279 U/L High 39-130 [facility] Comment on above: Performed By: #### C BCA, CMP, 1833-1, 16887-4, FEPR, 2276-4, 2284-8, 2131-9, TSHR #### [facility] ([id number]) [address], [address] [place] [address] ALT [Catalytic activity/Vol] 72 U/L High 0-40 [facility] Comment on above: Performed By: #### C BCA, CMP, 1833-, , FEPR, 2276-4, 2284-8, 2132-03, TSHR #### [facility] ([id number]) [address], [address] [place] [address] Anion gap [Moles/Vol] 9 mmol/L Normal 5-15 [facility] Comment on above: Performed By: #### C BCA, CMP, 1833-07, , FEPR, 2276-4, 2284-8, 2132-03, TSHR #### [facility] ([id number]) [address], [address] [place] [address] AST [Catalytic activity/Vol] 91 U/L High 0-41 [facility] Comment on above: Performed By: #### C BCA, CMP, 1833-, , FEPR, 2276-4, 2284-8, 9, TSHR #### [facility] ([id number]) [address], [address] [place] [address] Bilirubin [Mass/Vol] 1.8 mg/dL High 0.3-1.[address] [facility] Comment on above: Performed By: #### C BCA, CMP, 1833-, 22789-1, FEPR, 2276-4, 2284-8, 2132-03, TSHR #### [facility] ([id number]) [address], [address] [place] [address] Calcium [Mass/Vol] 8.8 mg/dL Normal 8.5-10.5 [facility] Comment on above: Performed By: #### C BCA, CMP, 1834-1, 04638-9, FEPR, 2276-4, 2283-8, 2132-03, TSHR #### [facility] ([id number]) [address], [address] [place] [address] Chloride [Moles/Vol] 92 mmol/L Low 98-[address] [facility] Comment on above: Performed By: #### C BCA, CMP, 1833-1, 96263-1, FEPR, 6-4, 2283-8, 2132-03, TSHR #### [facility] ([id number]) [address], [address] [place] [address] CO2 [Moles/Vol] 28 mmol/L Normal 22-32 [facility] Comment on above: Performed By: #### C BCA, CMP, 1833-, 76122-9, FEPR, 6-4, 2283-8, 2132-03, TSHR #### [facility] ([id number]) [address], [address] [place] [address] Creatinine [Mass/Vol] 1.60 mg/dL High 0.60-1.30 [facility] Comment on above: Result Comment: METH OD TRACEABLE TO IDMS STANDARD Performed By: #### C BCA, CMP, 1834-1, 99457-0, FEPR, 2276-4, 2283-8, 2132-03, TSHR #### [facility] ([id number]) [address], [address] [place] [address] GFR/1.73 sq M.predicted among non-blacks MDRD (S/P/Bld) [Vol rate/Area] 43 mL/min/{1.73_m2} Low >59 [facility] Comment on above: Result Comment: Reported eGFR is based on the CKD-EPI 2020 equation that does not use a race coefficient. Performed By: #### C BCA, CMP, 1833-, 13137-2, FEPR, 2276-4, 2284-8, 2132-03, TSHR #### [facility] ([id number]) [address], [address] [place] [address] Glucose [Mass/Vol] 94 mg/dL Normal 65-99 [facility] Comment on above: Performed By: #### C BCA, CMP, 1833-07, , FEPR, 2276-4, 228-8, 2132-03, TSHR #### [facility] ([id number]) [address], [address] [place] [address] Potassium [Moles/Vol] 3.9 mmol/L Normal 3.5-5.0 [facility] Comment on above: Performed By: #### C BCA, CMP, 1833-07, , FEPR, 2276-4, 228-8, 2132-03, TSHR #### [facility] ([id number]) [address], [address] [place] [address] Protein [Mass/Vol] 6.0 g/dL Normal 6.0-8.0 [facility] Comment on above: Performed By: #### C BCA, CMP, 1833-07, , FEPR, 2276-4, 2284-8, 2132-03, TSHR #### [facility] ([id number]) [address], [address] [place] [address] Sodium [Moles/Vol] 129 mmol/L Low 134-146 [facility] Comment on above: Performed By: #### C BCA, CMP, 1833-07, 00452-3, FEPR, 2276-4, 2284-8, 2132-03, TSHR #### [facility] ([id number]) [address], [address] [place] [address] Urea nitrogen [Mass/Vol] 34 mg/dL High 5-27 [facility] Comment on above: Performed By: #### C BCA, CMP, 1833-, 69976-4, FEPR, 6-4, 2283-8, 2132-03, TSHR #### [facility] ([id number]) [address], [address] [place] [address] MAGNESIUMon 06-04-2024 Magnesium [Mass/Vol] 2.0 mg/dL Normal 1.8-2.[address] [facility] Comment on above: Performed By: #### C BCA, CMP, 1833-, 49597-3, FEPR, 2275-4, 8, 2132-03, TSHR #### [facility] ([id number]) [address], [address] [place] [address] CBC AND AUTO DIFFon 06-03-20 24 ABSOLUTE BASOPHIL 0.1 X10E9/L Normal 0.0-0.2 [facility] Comment on above: Performed By: #### C BCA, CMP, 1833-, 90296-5, FEPR, 2275-4, 2284-02, 2132-03, TSHR #### [facility] ([id number]) [address], [address] [place] [address] ABSOLUTE NEUTROPHIL 6.2 X10E9/L Normal 1.5-6.[address] [facility] Comment on above: Performed By: #### C BCA, CMP, 1833-, 77214-9, FEPR, 2275-4, 2284-02, 2132-03, TSHR #### [facility] ([id number]) [address], [address] [place] [address] Basophils/100 WBC (Bld) 0.9 % Normal [facility] Comment on above: Performed By: #### C BCA, CMP, 1833-, , FEPR, 2276-4, 2283-8, 2132-03, TSHR #### [facility] ([id number]) [address], [address] [place] [address] Eosinophils (Bld) [#/Vol] 0.2 10*3/uL Normal 0.0-0.4 [facility] Comment on above: Performed By: #### C BCA, CMP, 1833-07, , FEPR, 2276-4, 2283-8, 2132-03, TSHR #### [facility] ([id number]) [address], [address] [address] Eosinophils/100 WBC (Bld) 2.2 % Normal [facility] Comment on above: Performed By: #### C BCA, CMP, 1833-07, , FEPR, 6-4, 2283-8, 2132-03, TSHR #### [facility] ([id number]) [address], [address] [address] Erythrocyte distribution width (RBC) [Ratio] 15.5 % High 11.5-15.0 [facility] Comment on above: Performed By: #### C BCA, CMP, 1833-07, , FEPR, 6-4, 2283-8, 2132-03, TSHR #### [facility] ([id number]) [address], [address] [place] [address] Hematocrit (Bld) [Volume fraction] 20.6 % Low 39-49 [facility] Comment on above: Performed By: #### C BCA, CMP, 1833-, , FEPR, 2276-4, 2284-8, 2132-03, TSHR #### [facility] ([id number]) [address], [address] [place] [address] Hemoglobin (Bld) [Mass/Vol] 7.2 g/dL Low 13.0-17.0 [facility] Comment on above: Performed By: #### C BCA, CMP, 1833-, 69204-8, FEPR, 2276-4, 2284-8, 2131-9, TSHR #### [facility] ([id number]) [address], [address] [place] [address] Lymphocytes (Bld) [#/Vol] 0.5 10*3/uL Low 1.0-3.5 [facility] Comment on above: Performed By: #### C BCA, CMP, 1833-07, , FEPR, 2276-4, 2283-8, 2132-03, TSHR #### [facility] ([id number]) [address], [address] [address] Lymphocytes/100 WBC (Bld) 6.8 % Normal [facility] Comment on above: Performed By: #### C BCA, CMP, 1833-07, , FEPR, 6-4, 2283-8, 2132-03, TSHR #### [facility] ([id number]) [address], [address] [address] MCH (RBC) [Entitic mass] 32.0 pg Normal 27-34 [facility] Comment on above: Performed By: #### C BCA, CMP, 1833-07, , FEPR, 2276-4, 2284-8, 9, TSHR #### [facility] ([id number]) [address], [address] [place] [address] MCHC (RBC) [Mass/Vol] 35.0 g/dL Normal 32-36 [facility] Comment on above: Performed By: #### C BCA, CMP, 1833-07, , FEPR, 2276-4, 2283-8, 2132-03, TSHR #### [facility] ([id number]) [address], [address] [place] [address] MCV (RBC) [Entitic vol] 92 fL Normal 80-100 P [facility] Comment on above: Performed By: #### C BCA, CMP, 1833-, 45166-1, FEPR, 6-4, 2283-8, 2132-03, TSHR #### [facility] ([id number]) [address], [address] [place] [address] Monocytes (Bld) [#/Vol] 0.8 10*3/uL Normal 0-0.9 [facility] Comment on above: Performed By: #### C BCA, CMP, 1833-, , FEPR, 2275-4, 8, 2132-03, TSHR #### [facility] ([id number]) [address], [address] [place] [address] Monocytes/100 WBC (Bld) 10.6 % Normal P [facility] Comment on above: Performed By: #### C BCA, CMP, 1833-, , FEPR, 2275-4, 2283-, 2132-03, TSHR #### [facility] ([id number]) [address], [address] [place] [address] Neutrophils/100 WBC (Bld) 79.5 % Normal [facility] Comment on above: Performed By: #### C BCA, CMP, 1833-, 54018-1, FEPR, 2275-4, 2283-8, 2132-03, TSHR #### [facility] ([id number]) [address], [address] [place] [address] Platelet mean volume (Bld) [Entitic vol] 7.8 fL Normal 7-12 [facility] Comment on above: Performed By: #### C BCA, CMP, 1833-, 22127-7, FEPR, 2276-4, 2284-8, 2131-9, TSHR #### [facility] ([id number]) [address], [address] [place] [address] Platelets (Bld) [#/Vol] 192 10*3/uL Normal 150-450 [facility] Comment on above: Performed By: #### C BCA, CMP, 1833-, 82995-3, FEPR, 2276-4, 2284-8, 9, TSHR #### [facility] ([id number]) [address], [address] [place] [address] RBC COUNT 2.25 X10E12/L Low 4.10-5.70 [facility] Comment on above: Performed By: #### C BCA, CMP, 1833-, 93654-2, FEPR, 2276-4, 2284-8, 2132-03, TSHR #### [facility] ([id number]) [address], [address] [place] [address] WBC (Bld) [#/Vol] 7.8 10*3/uL Normal 4.0-11.0 [facility] Comment on above: Performed By: #### C BCA, CMP, 1833-, 62904-2, FEPR, 2276-4, 2284-8, 2132-03, TSHR #### [facility] ([id number]) [address], [address] [place] [address] COMPREHENSIVE METABOLIC PANE Zoran 06-03-2024 Albumin [Mass/Vol] 2.4 g/dL Low 3.2-5.3 [facility] Comment on above: Performed By: #### C BCA, CMP, 1833-, 38621-8, FEPR, 2276-4, 2284-8, 2131-9, TSHR #### [facility] ([id number]) [address], [address] [place] [address] ALP [Catalytic activity/Vol] 237 U/L High 39-130 [facility] Comment on above: Performed By: #### C BCA, CMP, 1834-1, 00515-7, FEPR, 2276-4, 2284-8, 2131-9, TSHR #### [facility] ([id number]) [address], [address] [place] [address] ALT [Catalytic activity/Vol] 81 U/L High 0-40 [facility] Comment on above: Performed By: #### C BCA, CMP, 1833-, 37350-2, FEPR, 2276-4, 2284-8, 2132-03, TSHR #### [facility] ([id number]) [address], [address] [place] [address] Anion gap [Moles/Vol] 7 mmol/L Normal 5-15 [facility] Comment on above: Performed By: #### C BCA, CMP, 1833-, 93798-5, FEPR, 2276-4, 2284-8, 2132-03, TSHR #### [facility] ([id number]) [address], [address] [place] [address] AST [Catalytic activity/Vol] 99 U/L High 0-41 [facility] Comment on above: Performed By: #### C BCA, CMP, 1833-, 93247-7, FEPR, 2276-4, 2284-8, 9, TSHR #### [facility] ([id number]) [address], [address] [place] [address] Bilirubin [Mass/Vol] 1.5 mg/dL High 0.3-1.[address] [facility] Comment on above: Performed By: #### C BCA, CMP, 1833-, 90615-3, FEPR, 2276-4, 2284-8, 9, TSHR #### [facility] ([id number]) [address], [address] [place] [address] Calcium [Mass/Vol] 8.3 mg/dL Low 8.5-10.5 [facility] Comment on above: Performed By: #### C BCA, CMP, 1834-1, 27801-2, FEPR, 2276-4, 2284-8, 2131-9, TSHR #### [facility] ([id number]) [address], [address] [place] [address] Chloride [Moles/Vol] 94 mmol/L Low 98-[address] [facility] Comment on above: Performed By: #### C BCA, CMP, 4-1, 94344-9, FEPR, 2276-4, 2284-8, 2132-03, TSHR #### [facility] ([id number]) [address], [address] [place] [address] CO2 [Moles/Vol] 28 mmol/L Normal 22-32 [facility] Comment on above: Performed By: #### C BCA, CMP, 4-1, 20751-3, FEPR, 2276-4, 2284-8, 2132-03, TSHR #### [facility] ([id number]) [address], [address] [place] [address] Creatinine [Mass/Vol] 1.59 mg/dL High 0.60-1.30 [facility] Comment on above: Result Comment: METH OD TRACEABLE TO IDMS STANDARD Performed By: #### C BCA, CMP, 4-1, 18244-8, FEPR, 2276-4, 2284-8, 2131-9, TSHR #### [facility] ([id number]) [address], [address] [place] [address] GFR/1.73 sq M.predicted among non-blacks MDRD (S/P/Bld) [Vol rate/Area] 43 mL/min/{1.73_m2} Low >59 [facility] Comment on above: Result Comment: Reported eGFR is based on the CKD-EPI 2020 equation that does not use a race coefficient. Performed By: #### C BCA, CMP, 1833-, 63767-1, FEPR, 2276-4, 2284-8, 2132-03, TSHR #### [facility] ([id number]) [address], [address] [place] [address] Glucose [Mass/Vol] 97 mg/dL Normal 65-99 [facility] Comment on above: Performed By: #### C BCA, CMP, 1833-, , FEPR, 2276-4, 228-8, 2132-03, TSHR #### [facility] ([id number]) [address], [address] [place] [address] Potassium [Moles/Vol] 4.0 mmol/L Normal 3.5-5.0 [facility] Comment on above: Performed By: #### C BCA, CMP, 1833-07, , FEPR, 2276-4, 228-8, 2132-03, TSHR #### [facility] ([id number]) [address], [address] [place] [address] Protein [Mass/Vol] 5.2 g/dL Low 6.0-8.0 [facility] Comment on above: Performed By: #### C BCA, CMP, 1833-, , FEPR, 2276-4, 2284-8, 2132-03, TSHR #### [facility] ([id number]) [address], [address] [place] [address] Sodium [Moles/Vol] 129 mmol/L Low 134-146 [facility] Comment on above: Performed By: #### C BCA, CMP, 1833-, 57969-9, FEPR, 2276-4, 2284-8, 9, TSHR #### [facility] ([id number]) [address], [address] [place] [address] Urea nitrogen [Mass/Vol] 37 mg/dL High 5-27 [facility] Comment on above: Performed By: #### C BCA, CMP, 1833-, 02534-8, FEPR, 2276-4, 2284-8, 2132-03, TSHR #### [facility] ([id number]) [address], [address] [place] [address] HGB AND HCTon 06-03-2024 Hematocrit (Bld) [Volume fraction] 22.2 % Low 39-49 [facility] Comment on above: Performed By: #### C BCA, CMP, 1833-, 36573-6, FEPR, 2276-4, 2284-8, 2132-03, TSHR #### [facility] ([id number]) [address], [address] [place] [address] Hemoglobin (Bld) [Mass/Vol] 7.7 g/dL Low 13.0-17.0 [facility] Comment on above: Performed By: #### C BCA, CMP, 1833-, , FEPR, 2276-4, 2284-8, 2132-03, TSHR #### [facility] ([id number]) [address], [address] [place] [address] Hematocrit (Bld) [Volume fraction] 22.7 % Low 39-49 [facility] Comment on above: Performed By: #### C BCA, CMP, 1833-, 23500-1, FEPR, 2276-4, 2284-8, 2132-03, TSHR #### [facility] ([id number]) [address], [address] [place] [address] Hemoglobin (Bld) [Mass/Vol] 7.8 g/dL Low 13.0-17.0 [facility] Comment on above: Performed By: #### C BCA, CMP, 1834-1, 91594-3, FEPR, 2276-4, 2284-8, 9, TSHR #### [facility] ([id number]) [address], [address] [place] [address] IR PERCUTANEOUS BX LIVERon 1 08-03-2023 IR [...] Simmons MD on 06/03/2024 1:22 PM Normal [facility] MAGNESIUMon 06-03-2024 Magnesium [Mass/Vol] 1.6 mg/dL Low 1.8-2.[address] [facility] Comment on above: Performed By: #### C JIN, CMP, 1834-1, 76886-8, FEPR, 2276-4, 2284-8, 2131-9, TSHR #### [facility] ([id number]) [address] [place] [address] PROTIME AND INRon 06-03-2024 INR Coag (PPP) [Relative time] 1.2 {INR} High 0.8-1.1 [facility] Comment on above: Performed By: #### C BCA, CMP, 1834-1, 38133-1, FEPR, 2276-4, 2284-8, 2132-9, TSHR #### [facility] ([id number]) [address] [place] [address], [address] [place] [address] PT Coag (PPP) [Time] 14.3 s High 9.8-13.[address] [facility] Comment on above: Performed By: #### C BCA, CMP, 1834-1, 96603-6, FEPR, 2276-4, 2284-8, 2131-9, TSHR #### [facility] ([id number]) [address] [place] [address], [address] [place] [address] Surgical Pathologyon 024 Surgical Pathology Normal [facility] Comment on above: Result Comment: [facility] [address] [place] [address] Surgical Pathology Consultation Patient Name:MYKEL OLIVERA:1940 (Age: 84)Gender:MTaken:4Reported:06/09/2024hysician(s):OLY RODRIGUES N.PJosefina ([phone])Copy To:Bob Simmons M.D. Rec. #:[id number]: #[id number] Final Pathologic Diagnosis Liver, needle core biopsies: [...] with the diagnosis. Report Electronically Signed Out pending sale to [facility]/06/09/2024Surendra P. Lombardi, M.D. Interpretation performed at [facility], [address], [place] [address], License number: [id number]. Clinical History Bladder cancer non invasive, liver mass. Gross Description Received in formalin labeled JUAN C, liver BX are 6 pale pratt to fletcher fragmented portions of needle core biopsy segments, 1 x 0.5 x 0.1 cm in aggregate. The specimen is filtered and submitted entirely in a single cassette. (1, ns, [id number], m5) med/06/03/2024NSK Intraoperative Consultation . Specimen(s) Received Liver core biopsy Fee Codes(s): 1; 60327, 20923, 27899(2), 70061 CBC AND AUTO DIFFon 06-02-20 24 ABSOLUTE BASOPHIL 0.0 X10E9/L Normal 0.0-0.2 [facility] Comment on above: Performed By: #### C BCA, CMP, 1833-, , FEPR, 6-4, 2283-8, 2132-03, TSHR #### [facility] ([id number]) [address], [address] [place] [address] ABSOLUTE NEUTROPHIL 8.1 X10E9/L High 1.5-6.[address] [facility] Comment on above: Performed By: #### C BCA, CMP, 1833-, , FEPR, 6-4, 2283-8, 2132-03, TSHR #### [facility] ([id number]) [address], [address] [place] [address] Basophils/100 WBC (Bld) 0.3 % Normal P [facility] Comment on above: Performed By: #### C BCA, CMP, 1833-, 01887-6, FEPR, 2276-4, 2283-8, 9, TSHR #### [facility] ([id number]) [address], [address] [place] [address] Eosinophils (Bld) [#/Vol] 0.2 10*3/uL Normal 0.0-0.4 [facility] Comment on above: Performed By: #### C BCA, CMP, 1833-, , FEPR, 2276-4, 4-8, 2132-03, TSHR #### [facility] ([id number]) [address], [address] [place] [address] Eosinophils/100 WBC (Bld) 1.7 % Normal [facility] Comment on above: Performed By: #### C BCA, CMP, 1833-, , FEPR, 2276-4, 4-8, 2132-03, TSHR #### [facility] ([id number]) [address], [facility] [address] [place] [address] Erythrocyte distribution width (RBC) [Ratio] 15.5 % High 11.5-15.0 [facility] Comment on above: Performed By: #### C BCA, CMP, 1833-07, , FEPR, 6-4, 2283-8, 2132-03, TSHR #### [facility] ([id number]) [address], [address] [place] [address] Hematocrit (Bld) [Volume fraction] 21.2 % Low 39-49 [facility] Comment on above: Performed By: #### C BCA, CMP, 1833-07, , FEPR, 2276-4, 2283-8, 2132-03, TSHR #### [facility] ([id number]) [address], [address] [place] [address] Hemoglobin (Bld) [Mass/Vol] 7.3 g/dL Low 13.0-17.0 [facility] Comment on above: Performed By: #### C BCA, CMP, 1833-, 67408-8, FEPR, 2276-4, 2284-8, 9, TSHR #### [facility] ([id number]) [address], [address] [place] [address] Lymphocytes (Bld) [#/Vol] 0.6 10*3/uL Low 1.0-3.5 [facility] Comment on above: Performed By: #### C BCA, CMP, 1833-, 54707-6, FEPR, 2276-4, 4-8, 9, TSHR #### [facility] ([id number]) [address], [address] [place] [address] Lymphocytes/100 WBC (Bld) 5.8 % Normal [facility] Comment on above: Performed By: #### C BCA, CMP, 1833-07, , FEPR, 2276-4, 2283-8, 2132-03, TSHR #### [facility] ([id number]) [address], [facility] [address] [place] [address] MCH (RBC) [Entitic mass] 31.7 pg Normal 27-34 [facility] Comment on above: Performed By: #### C BCA, CMP, 1833-07, , FEPR, 6-4, 2283-8, 2132-03, TSHR #### [facility] ([id number]) [address], [address] [place] [address] MCHC (RBC) [Mass/Vol] 34.5 g/dL Normal 32-36 [facility] Comment on above: Performed By: #### C BCA, CMP, 1833-07, , FEPR, 2276-4, 2283-8, 2132-03, TSHR #### [facility] ([id number]) [address], [address] [place] [address] MCV (RBC) [Entitic vol] 92 fL Normal 80-100 P [facility] Comment on above: Performed By: #### C BCA, CMP, 1833-, 30784-3, FEPR, 2276-4, 4-8, 2132-9, TSHR #### [facility] ([id number]) [address], [address] [place] [address] Monocytes (Bld) [#/Vol] 1.1 10*3/uL High 0-0.9 [facility] Comment on above: Performed By: #### C BCA, CMP, 1833-, 73524-8, FEPR, 2276-4, 2283-8, 2132-03, TSHR #### [facility] ([id number]) [address], [address] [place] [address] Monocytes/100 WBC (Bld) 11.0 % Normal P [facility] Comment on above: Performed By: #### C BCA, CMP, 1833-, 46606-5, FEPR, 6-4, 2283-8, 2132-03, TSHR #### [facility] ([id number]) [address], [address] [place] [address] Neutrophils/100 WBC (Bld) 81.2 % Normal [facility] Comment on above: Performed By: #### C BCA, CMP, 1833-, , FEPR, 6-4, 2283-8, 2132-03, TSHR #### [facility] ([id number]) [address], [address] [place] [address] Platelet mean volume (Bld) [Entitic vol] 7.5 fL Normal 7-12 [facility] Comment on above: Performed By: #### C BCA, CMP, 1833-, 05447-9, FEPR, 2276-4, 2283-8, 2132-03, TSHR #### [facility] ([id number]) [address], [address] [place] [address] Platelets (Bld) [#/Vol] 196 10*3/uL Normal 150-450 [facility] Comment on above: Performed By: #### C BCA, CMP, 1834-1, 84233-8, FEPR, 2276-4, 2284-8, 2131-9, TSHR #### [facility] ([id number]) [address], [address] [place] [address] RBC COUNT 2.30 X10E12/L Low 4.10-5.70 [facility] Comment on above: Performed By: #### C BCA, CMP, 1833-1, 21661-0, FEPR, 2276-4, 2284-8, 2131-9, TSHR #### [facility] ([id number]) [address], [address] [place] [address] WBC (Bld) [#/Vol] 10.0 10*3/uL Normal 4.0-11.0 [facility] Comment on above: Performed By: #### C BCA, CMP, 1833-, 07937-3, FEPR, 2276-4, 2283-8, 2132-03, TSHR #### [facility] ([id number]) [address], [address] [place] [address] COMPREHENSIVE METABOLIC PANE Zoran 06-02-2024 Albumin [Mass/Vol] 2.5 g/dL Low 3.2-5.3 [facility] Comment on above: Performed By: #### C BCA, CMP, 1833-, 80289-7, FEPR, 2276-4, 2283-8, 2132-03, TSHR #### [facility] ([id number]) [address], [address] [place] [address] ALP [Catalytic activity/Vol] 261 U/L High 39-130 [facility] Comment on above: Performed By: #### C BCA, CMP, 4-1, 58190-5, FEPR, 2276-4, 2284-8, 2131-9, TSHR #### [facility] ([id number]) [address], [address] [place] [address] ALT [Catalytic activity/Vol] 109 U/L High 0-40 [facility] Comment on above: Performed By: #### C BCA, CMP, 4-1, 09251-9, FEPR, 2276-4, 2284-8, 2131-9, TSHR #### [facility] ([id number]) [address], [address] [place] [address] Anion gap [Moles/Vol] 9 mmol/L Normal 5-15 [facility] Comment on above: Performed By: #### C BCA, CMP, 1833-, 58660-9, FEPR, 2276-4, 2284-8, 2132-03, TSHR #### [facility] ([id number]) [address], [address] [place] [address] AST [Catalytic activity/Vol] 130 U/L High 0-41 [facility] Comment on above: Performed By: #### C BCA, CMP, 1833-, 37761-8, FEPR, 2276-4, 2284-8, 2132-03, TSHR #### [facility] ([id number]) [address], [address] [place] [address] Bilirubin [Mass/Vol] 1.7 mg/dL High 0.3-1.[address] [facility] Comment on above: Performed By: #### C BCA, CMP, 1833-, 22635-8, FEPR, 2276-4, 2284-8, 9, TSHR #### [facility] ([id number]) [address], [address] [place] [address] Calcium [Mass/Vol] 8.4 mg/dL Low 8.5-10.5 [facility] Comment on above: Performed By: #### C BCA, CMP, 1833-, 73587-0, FEPR, 2276-4, 2284-8, 2131-9, TSHR #### [facility] ([id number]) [address], [address] [place] [address] Chloride [Moles/Vol] 94 mmol/L Low 98-[address] [facility] Comment on above: Performed By: #### C BCA, CMP, 1833-, 11860-8, FEPR, 2276-4, 2284-8, 9, TSHR #### [facility] ([id number]) [address], [address] [place] [address] CO2 [Moles/Vol] 26 mmol/L Normal 22-32 [facility] Comment on above: Performed By: #### C BCA, CMP, 1833-07, , FEPR, 6-4, 2283-8, 2132-03, TSHR #### [facility] ([id number]) [address], [address] [place] [address] Creatinine [Mass/Vol] 1.60 mg/dL High 0.60-1.30 [facility] Comment on above: Result Comment: METH OD TRACEABLE TO IDMS STANDARD Performed By: #### C BCA, CMP, 1833-07, , FEPR, 6-4, 2283-8, 2132-03, TSHR #### [facility] ([id number]) [address] [place] [address] GFR/1.73 sq M.predicted among non-blacks MDRD (S/P/Bld) [Vol rate/Area] 43 mL/min/{1.73_m2} Low >59 [facility] Comment on above: Result Comment: Reported eGFR is based on the CKD-EPI 2020 equation that does not use a race coefficient. Performed By: #### C BCA, CMP, 1833-, , FEPR, 2276-4, 2284-8, 9, TSHR #### [facility] ([id number]) [address], [address] [place] [address] Glucose [Mass/Vol] 104 mg/dL High 65-99 [facility] Comment on above: Performed By: #### C BCA, CMP, 1834-1, 62578-2, FEPR, 2276-4, 2284-8, 9, TSHR #### [facility] ([id number]) [address], [address] [place] [address] Potassium [Moles/Vol] 4.2 mmol/L Normal 3.5-5.0 [facility] Comment on above: Performed By: #### C BCA, CMP, 1833-, 43763-4, FEPR, 2276-4, 2283-8, 2132-03, TSHR #### [facility] ([id number]) [address], [address] [place] [address] Protein [Mass/Vol] 5.5 g/dL Low 6.0-8.0 [facility] Comment on above: Performed By: #### C BCA, CMP, 1833-, 00809-2, FEPR, 2276-4, 2283-8, 2132-03, TSHR #### [facility] ([id number]) [address], [address] [place] [address] Sodium [Moles/Vol] 129 mmol/L Low 134-146 [facility] Comment on above: Performed By: #### C BCA, CMP, 1833-, 61693-9, FEPR, 2276-4, 228-8, 2132-03, TSHR #### [facility] ([id number]) [address], [address] [place] [address] Urea nitrogen [Mass/Vol] 36 mg/dL High 5-27 [facility] Comment on above: Performed By: #### C BCA, CMP, 1833-, 09539-6, FEPR, 2276-4, 2284-8, 9, TSHR #### [facility] ([id number]) [address], [address] [place] [address] HGB AND HCTon 06-02-2024 Hematocrit (Bld) [Volume fraction] 21.0 % Low 39-49 [facility] Comment on above: Performed By: #### C BCA, CMP, 1833-1, 71869-3, FEPR, 2276-4, 2283-8, 2132-03, TSHR #### [facility] ([id number]) [address], [address] [place] [address] Hemoglobin (Bld) [Mass/Vol] 7.2 g/dL Low 13.0-17.0 [facility] Comment on above: Performed By: #### C BCA, CMP, 1833-, 77091-0, FEPR, 2275-4, 2283-8, 2132-03, TSHR #### [facility] ([id number]) [address], [address] [place] [address] MAGNESIUMon 06-02-2024 Magnesium [Mass/Vol] 1.8 mg/dL Normal 1.8-2.[address] [facility] Comment on above: Performed By: #### C BCA, CMP, 1833-, 21131-2, FEPR, 6-4, 8, 2132-03, TSHR #### [facility] ([id number]) [address] [place] [address] PROTIME AND INRon 06-02-2024 INR Coag (PPP) [Relative time] 1.3 {INR} High 0.8-1.1 [facility] Comment on above: Performed By: #### C BCA, CMP, 1833-, 52216-0, FEPR, 6-4, 2283-8, 2132-03, TSHR #### [facility] ([id number]) [address], [address] [place] [address] PT Coag (PPP) [Time] 14.8 s High 9.8-13.[address] [facility] Comment on above: Performed By: #### C BCA, CMP, 4-1, 80129-4, FEPR, 2276-4, 2284-8, 2131-9, TSHR #### [facility] ([id number]) [address], [address] [place] [address] aPTT Coag (PPP) [Time]on aPTT Coag (Bld) [Time] 33 s Normal 26-[address] [facility] Comment on above: Performed By: #### C BCA, CMP, 1833-, 26969-8, FEPR, 2276-4, 2284-8, 2132-03, TSHR #### [facility] ([id number]) [address], [address] [place] [address] aPTT Coag (Bld) [Time] 28 s Normal 26-[address] [facility] Comment on above: Performed By: #### C BCA, CMP, 1833-, 66971-9, FEPR, 2276-4, 2284-8, 2132-03, TSHR #### [facility] ([id number]) [address], [address] [place] [address] aPTT Coag (Bld) [Time] 33 s Normal 26-[address] [facility] Comment on above: Performed By: #### C BCA, CMP, 1833-, 02984-5, FEPR, 2276-4, 2284-8, 9, TSHR #### [facility] ([id number]) [address], [address] [place] [address] BASIC METABOLIC PANLon 06-01 Anion gap [Moles/Vol] 7 mmol/L Normal 5-15 [facility] Comment on above: Performed By: #### C BCA, CMP, 1833-, 27356-2, FEPR, 2276-4, 2284-8, 2132-9, TSHR #### [facility] ([id number]) [address], [address] [place] [address] Calcium [Mass/Vol] 8.6 mg/dL Normal 8.5-10.5 [facility] Comment on above: Performed By: #### C BCA, CMP, 1833-1, 71549-9, FEPR, 2276-4, 2283-8, 2132-03, TSHR #### [facility] ([id number]) [address], [address] [place] [address] Chloride [Moles/Vol] 94 mmol/L Low 98-[address] [facility] Comment on above: Performed By: #### C BCA, CMP, 1833-, 00251-2, FEPR, 2275-4, 8, 2132-03, TSHR #### [facility] ([id number]) [address], [address] [place] [address] CO2 [Moles/Vol] 26 mmol/L Normal 22-32 [facility] Comment on above: Performed By: #### C BCA, CMP, 1833-, , FEPR, 2275-4, 2283-8, 2132-03, TSHR #### [facility] ([id number]) [address], [address] [place] [address] Creatinine [Mass/Vol] 1.65 mg/dL High 0.60-1.30 [facility] Comment on above: Result Comment: METH OD TRACEABLE TO IDMS STANDARD Performed By: #### C BCA, CMP, 1833-, 22145-4, FEPR, 6-4, 2283-8, 2132-03, TSHR #### [facility] ([id number]) [address], [address] [place] [address] GFR/1.73 sq M.predicted among non-blacks MDRD (S/P/Bld) [Vol rate/Area] 41 mL/min/{1.73_m2} Low >59 [facility] Comment on above: Result Comment: Reported eGFR is based on the CKD-EPI 2020 equation that does not use a race coefficient. Performed By: #### C BCA, CMP, 1833-, 00188-5, FEPR, 2276-4, 2284-8, 2132-03, TSHR #### [facility] ([id number]) [address] [place] [address] Glucose [Mass/Vol] 206 mg/dL High 65-99 [facility] Comment on above: Performed By: #### C BCA, CMP, 1833-07, , FEPR, 2276-4, 228-8, 2132-03, TSHR #### [facility] ([id number]) [address], [address] [place] [address] Potassium [Moles/Vol] 4.2 mmol/L Normal 3.5-5.0 [facility] Comment on above: Performed By: #### C BCA, CMP, 1833-07, , FEPR, 2276-4, 2283-8, 2132-03, TSHR #### [facility] ([id number]) [address] [place] [address] Sodium [Moles/Vol] 127 mmol/L Low 134-146 [facility] Comment on above: Performed By: #### C BCA, CMP, 1833-07, , FEPR, 2276-4, 2284-8, 2132-03, TSHR #### [facility] ([id number]) [address] [place] [address] Urea nitrogen [Mass/Vol] 36 mg/dL High 5-27 [facility] Comment on above: Performed By: #### C BCA, CMP, 1833-07, 23403-2, FEPR, 2276-4, 2284-8, 2132-03, TSHR #### [facility] ([id number]) [address], [address] [place] [address] CBC AND AUTO DIFFon 06-01-20 24 ABSOLUTE BASOPHIL 0.0 X10E9/L Normal 0.0-0.2 [facility] Comment on above: Performed By: #### C BCA, CMP, 4-, 69407-9, FEPR, 6-4, 2283-8, 2132-03, TSHR #### [facility] ([id number]) [address] [place] [address] ABSOLUTE NEUTROPHIL 10.4 X10E9/L High 1.5-6.6 [facility] Comment on above: Performed By: #### C BCA, CMP, 1833-, 63564-2, FEPR, 6-4, 2283-8, 2132-03, TSHR #### [facility] ([id number]) [address], [address] [place] [address] Basophils/100 WBC (Bld) 0.1 % Normal P [facility] Comment on above: Performed By: #### C BCA, CMP, 1833-, 69652-5, FEPR, 6-4, 2283-8, 2132-03, TSHR #### [facility] ([id number]) [address], [address] [place] [address] Eosinophils (Bld) [#/Vol] 0.1 10*3/uL Normal 0.0-0.4 [facility] Comment on above: Performed By: #### C BCA, CMP, 1833-, 10657-2, FEPR, 2276-4, 2283-8, 2132-03, TSHR #### [facility] ([id number]) [address], [address] [place] [address] Eosinophils/100 WBC (Bld) 1.2 % Normal [facility] Comment on above: Performed By: #### C BCA, CMP, 1833-, 86449-4, FEPR, 2276-4, 2284-8, 2131-9, TSHR #### [facility] ([id number]) [address], [address] [place] [address] Erythrocyte distribution width (RBC) [Ratio] 15.6 % High 11.5-15.0 [facility] Comment on above: Performed By: #### C BCA, CMP, 1833-, 01223-8, FEPR, 2276-4, 2284-8, 9, TSHR #### [facility] ([id number]) [address] [address] [place] [address] Hematocrit (Bld) [Volume fraction] 23.5 % Low 39-49 [facility] Comment on above: Performed By: #### C BCA, CMP, 1833-07, , FEPR, 2276-4, 2284-8, 2132-03, TSHR #### [facility] ([id number]) [address] [address] [place] [address] Hemoglobin (Bld) [Mass/Vol] 8.0 g/dL Low 13.0-17.0 [facility] Comment on above: Performed By: #### C BCA, CMP, 1833-07, , FEPR, 2276-4, 2284-8, 2132-03, TSHR #### [facility] ([id number]) [address] [place] [address] Lymphocytes (Bld) [#/Vol] 0.4 10*3/uL Low 1.0-3.5 [facility] Comment on above: Performed By: #### C BCA, CMP, 1833-, 39832-9, FEPR, 2276-4, 2284-8, 2131-9, TSHR #### [facility] ([id number]) [address], [address] [place] [address] Lymphocytes/100 WBC (Bld) 3.4 % Normal [facility] Comment on above: Performed By: #### C BCA, CMP, 1833-, 42717-4, FEPR, 2276-4, 2283-8, 2132-03, TSHR #### [facility] ([id number]) [address], [address] [place] [address] MCH (RBC) [Entitic mass] 31.3 pg Normal 27-34 [facility] Comment on above: Performed By: #### C BCA, CMP, 1833-, , FEPR, 6-4, 2283-8, 2132-03, TSHR #### [facility] ([id number]) [address], [address] [place] [address] MCHC (RBC) [Mass/Vol] 34.0 g/dL Normal 32-36 [facility] Comment on above: Performed By: #### C BCA, CMP, 1833-07, , FEPR, 6-4, 2283-8, 2132-03, TSHR #### [facility] ([id number]) [address], [address] [place] [address] MCV (RBC) [Entitic vol] 92 fL Normal 80-100 P [facility] Comment on above: Performed By: #### C BCA, CMP, 1833-07, , FEPR, 2276-4, 2283-8, 2132-03, TSHR #### [facility] ([id number]) [address], [address] [place] [address] Monocytes (Bld) [#/Vol] 1.3 10*3/uL High 0-0.9 [facility] Comment on above: Performed By: #### C BCA, CMP, 1833-, 46982-5, FEPR, 2276-4, 2283-8, 2132-03, TSHR #### [facility] ([id number]) [address], [address] [place] [address] Monocytes/100 WBC (Bld) 10.6 % Normal P [facility] Comment on above: Performed By: #### C BCA, CMP, 1833-, 20057-5, FEPR, 2276-4, 2284-8, 2131-9, TSHR #### [facility] ([id number]) [address], [address] [place] [address] Neutrophils/100 WBC (Bld) 84.7 % Normal [facility] Comment on above: Performed By: #### C BCA, CMP, 1833-, , FEPR, 2276-4, 2284-8, 2132-03, TSHR #### [facility] ([id number]) [address], [address] [place] [address] Platelet mean volume (Bld) [Entitic vol] 7.6 fL Normal 7-12 [facility] Comment on above: Performed By: #### C BCA, CMP, 1833-07, , FEPR, 2276-4, 228-8, 2132-03, TSHR #### [facility] ([id number]) [address], [address] [place] [address] Platelets (Bld) [#/Vol] 219 10*3/uL Normal 150-450 [facility] Comment on above: Performed By: #### C BCA, CMP, 1833-, , FEPR, 2276-4, 2284-8, 2131-9, TSHR #### [facility] ([id number]) [address], [address] [place] [address] RBC COUNT 2.55 X10E12/L Low 4.10-5.70 [facility] Comment on above: Performed By: #### C BCA, CMP, 1833-, 92681-3, FEPR, 2276-4, 2283-8, 9, TSHR #### [facility] ([id number]) [address], [address] [place] [address] WBC (Bld) [#/Vol] 12.3 10*3/uL High 4.0-11.0 [facility] Comment on above: Performed By: #### C BCA, CMP, 1833-, 12037-9, FEPR, 2276-4, 2283-8, 2132-03, TSHR #### [facility] ([id number]) [address] [place] [address] COMPREHENSIVE METABOLIC PANE [facility] 06-01-2024 Albumin [Mass/Vol] 2.7 g/dL Low 3.2-5.3 [facility] Comment on above: Performed By: #### C BCA, CMP, 1833-, , FEPR, 6-4, 2283-8, 2132-03, TSHR #### [facility] ([id number]) [address], [address] [place] [address] ALP [Catalytic activity/Vol] 287 U/L High 39-130 [facility] Comment on above: Performed By: #### C BCA, CMP, 1833-, 56823-9, FEPR, 6-4, 2283-8, 2132-03, TSHR #### [facility] ([id number]) [address], [address] [place] [address] ALT [Catalytic activity/Vol] 135 U/L High 0-40 [facility] Comment on above: Performed By: #### C BCA, CMP, 1833-, 56884-0, FEPR, 2276-4, 2283-8, 9, TSHR #### [facility] ([id number]) [address], [address] [place] [address] Anion gap [Moles/Vol] 9 mmol/L Normal 5-15 [facility] Comment on above: Performed By: #### C BCA, CMP, 1833-1, 17737-9, FEPR, 2276-4, 2284-8, 2131-9, TSHR #### [facility] ([id number]) [address], [address] [place] [address] AST [Catalytic activity/Vol] 177 U/L High 0-41 [facility] Comment on above: Performed By: #### C BCA, CMP, 1833-, 61023-8, FEPR, 2276-4, 2284-8, 2132-03, TSHR #### [facility] ([id number]) [address], [address] [place] [address] Bilirubin [Mass/Vol] 1.9 mg/dL High 0.3-1.[address] [facility] Comment on above: Performed By: #### C BCA, CMP, 1833-07, , FEPR, 2276-4, 2284-8, 2132-03, TSHR #### [facility] ([id number]) [address], [address] [place] [address] Calcium [Mass/Vol] 8.8 mg/dL Normal 8.5-10.5 [facility] Comment on above: Performed By: #### C BCA, CMP, 1833-, 39572-5, FEPR, 2276-4, 2284-8, 9, TSHR #### [facility] ([id number]) [address], [address] [place] [address] Chloride [Moles/Vol] 95 mmol/L Low 98-[address] [facility] Comment on above: Performed By: #### C BCA, CMP, 1833-, 78547-9, FEPR, 2276-4, 2284-8, 2131-9, TSHR #### [facility] ([id number]) [address], [address] [place] [address] CO2 [Moles/Vol] 25 mmol/L Normal 22-32 [facility] Comment on above: Performed By: #### C BCA, CMP, 1833-, , FEPR, 2276-4, 2283-8, 2132-03, TSHR #### [facility] ([id number]) [address], [address] [place] [address] Creatinine [Mass/Vol] 1.47 mg/dL High 0.60-1.30 [facility] Comment on above: Result Comment: METH OD TRACEABLE TO IDMS STANDARD Performed By: #### C BCA, CMP, 1833-07, , FEPR, 6-4, 2283-8, 2132-03, TSHR #### [facility] ([id number]) [address] [place] [address] GFR/1.73 sq M.predicted among non-blacks MDRD (S/P/Bld) [Vol rate/Area] 47 mL/min/{1.73_m2} Low >59 [facility] Comment on above: Result Comment: Reported eGFR is based on the CKD-EPI 2020 equation that does not use a race coefficient. Performed By: #### C BCA, CMP, 1833-, , FEPR, 6-4, 2283-8, 2132-03, TSHR #### [facility] ([id number]) [address], [address] [place] [address] Glucose [Mass/Vol] 126 mg/dL High 65-99 [facility] Comment on above: Performed By: #### C BCA, CMP, 1833-, , FEPR, 2276-4, 2283-8, 2132-03, TSHR #### [facility] ([id number]) [address], [address] [place] [address] Potassium [Moles/Vol] 4.0 mmol/L Normal 3.5-5.0 [facility] Comment on above: Performed By: #### C BCA, CMP, 1833-, 78147-0, FEPR, 2276-4, 2284-8, 9, TSHR #### [facility] ([id number]) [address], [address] [place] [address] Protein [Mass/Vol] 5.9 g/dL Low 6.0-8.0 [facility] Comment on above: Performed By: #### C BCA, CMP, 1833-, 92006-1, FEPR, 2276-4, 2284-8, 2132-03, TSHR #### [facility] ([id number]) [address], [address] [place] [address] Sodium [Moles/Vol] 129 mmol/L Low 134-146 [facility] Comment on above: Performed By: #### C BCA, CMP, 1833-07, , FEPR, 2276-4, 2284-8, 2132-03, TSHR #### [facility] ([id number]) [address], [address] [place] [address] Urea nitrogen [Mass/Vol] 36 mg/dL High 5-27 [facility] Comment on above: Performed By: #### C BCA, CMP, 1833-07, , FEPR, 2276-4, 2284-8, 2132-03, TSHR #### [facility] ([id number]) [address], [address] [place] [address] HGB AND HCTon 06-01-2024 Hematocrit (Bld) [Volume fraction] 22.8 % Low 39-49 [facility] Comment on above: Performed By: #### C BCA, CMP, 1833-, 44012-4, FEPR, 2276-4, 2284-8, 9, TSHR #### [facility] ([id number]) [address], [address] [place] [address] Hemoglobin (Bld) [Mass/Vol] 7.6 g/dL Low 13.0-17.0 [facility] Comment on above: Performed By: #### C BCA, CMP, 1833-, 08700-2, FEPR, 2276-4, 2284-8, 2132-03, TSHR #### [facility] ([id number]) [address], [address] [place] [address] MAGNESIUMon 06-01-2024 Magnesium [Mass/Vol] 1.8 mg/dL Normal 1.8-2.[address] [facility] Comment on above: Performed By: #### C BCA, CMP, 1833-07, , FEPR, 2276-4, 2283-8, 2132-03, TSHR #### [facility] ([id number]) [address], [address] [place] [address] Magnesium Ionized ISE (Bld) [Moles/Vol]on 06-01-2024 Magnesium [Moles/Vol] 0.63 mmol/L Normal 0.45-0.74 [facility] Comment on above: Result Comment: NEW REFERENCE RANGE Performed By: #### C BCA, CMP, 1833-07, , FEPR, 2276-4, 2283-8, 2132-03, TSHR #### [facility] ([id number]) [address] [place] [address] PROTIME AND INRon 06-01-2024 INR Coag (PPP) [Relative time] 1.6 {INR} High 0.8-1.1 [facility] Comment on above: Performed By: #### C BCA, CMP, 1833-, 64402-9, FEPR, 2276-4, 2284-8, 9, TSHR #### [facility] ([id number]) [address], [address] [place] [address] PT Coag (PPP) [Time] 18.1 s High 9.8-13.[address] [facility] Comment on above: Performed By: #### C BCA, CMP, 4-1, 57147-4, FEPR, 2276-4, 4-8, 9, TSHR #### [facility] ([id number]) [address], [address] [place] [address] INR Coag (PPP) [Relative time] 1.5 {INR} High 0.8-1.1 [facility] Comment on above: Performed By: #### C BCA, CMP, 1833-, 85240-3, FEPR, 6-4, 2283-8, 2132-03, TSHR #### [facility] ([id number]) [address], [address] [place] [address] PT Coag (PPP) [Time] 17.2 s High 9.8-13.[address] [facility] Comment on above: Performed By: #### C BCA, CMP, 1833-, 73566-2, FEPR, 6-4, 2283-8, 2132-03, TSHR #### [facility] ([id number]) [address] [place] [address] aPTT Coag (PPP) [Time]on aPTT Coag (Bld) [Time] 27 s Normal 26-37 [facility] Comment on above: Performed By: #### C BCA, CMP, 1833-, 90642-1, FEPR, 2276-4, 2284-8, 2132-03, TSHR #### [facility] ([id number]) [address], [address] [place] [address] CBC AND AUTO DIFFon 05-31-20 24 ABSOLUTE BASOPHIL 0.0 X10E9/L Normal 0.0-0.2 [facility] Comment on above: Performed By: #### C BCA, CMP, 1833-, , FEPR, 6-4, 2283-8, 2132-03, TSHR #### [facility] ([id number]) [address], [address] [place] [address] ABSOLUTE NEUTROPHIL 8.4 X10E9/L High 1.5-6.[address] [facility] Comment on above: Performed By: #### C BCA, CMP, 1833-, , FEPR, 6-4, 2283-8, 2132-03, TSHR #### [facility] ([id number]) [address], [address] [place] [address] Basophils/100 WBC (Bld) 0.1 % Normal [facility] Comment on above: Performed By: #### C BCA, CMP, 1833-07, , FEPR, 2275-4, 2283-8, 2132-03, TSHR #### [facility] ([id number]) [address], [address] [place] [address] Eosinophils (Bld) [#/Vol] 0.1 10*3/uL Normal 0.0-0.4 [facility] Comment on above: Performed By: #### C BCA, CMP, 1833-07, , FEPR, 2275-4, 2283-8, 2132-03, TSHR #### [facility] ([id number]) [address] [address] [place] [address] Eosinophils/100 WBC (Bld) 0.9 % Normal [facility] Comment on above: Performed By: #### C BCA, CMP, 1833-, , FEPR, 6-4, 2283-8, 2132-03, TSHR #### [facility] ([id number]) [address] [place] [address] Erythrocyte distribution width (RBC) [Ratio] 15.4 % High 11.5-15.0 [facility] Comment on above: Performed By: #### C BCA, CMP, 1833-, , FEPR, 2276-4, 2284-8, 2132-03, TSHR #### [facility] ([id number]) [address], [address] [place] [address] Hematocrit (Bld) [Volume fraction] 20.7 % Low 39-49 [facility] Comment on above: Performed By: #### C BCA, CMP, 1833-07, , FEPR, 2276-4, 228-8, 2132-03, TSHR #### [facility] ([id number]) [address], [address] [place] [address] Hemoglobin (Bld) [Mass/Vol] 7.2 g/dL Low 13.0-17.0 [facility] Comment on above: Performed By: #### C BCA, CMP, 1833-07, , FEPR, 2276-4, 2283-8, 2132-03, TSHR #### [facility] ([id number]) [address], [address] [place] [address] Lymphocytes (Bld) [#/Vol] 0.4 10*3/uL Low 1.0-3.5 [facility] Comment on above: Performed By: #### C BCA, CMP, 1833-07, , FEPR, 2276-4, 2284-8, 2132-03, TSHR #### [facility] ([id number]) [address], [facility] [address] [place] [address] Lymphocytes/100 WBC (Bld) 4.1 % Normal [facility] Comment on above: Performed By: #### C BCA, CMP, 1833-, 44827-1, FEPR, 2276-4, 2284-8, 2132-03, TSHR #### [facility] ([id number]) [address], [address] [place] [address] MCH (RBC) [Entitic mass] 31.7 pg Normal 27-34 [facility] Comment on above: Performed By: #### C BCA, CMP, 1833-, 77737-5, FEPR, 2276-4, 4-8, 2132-03, TSHR #### [facility] ([id number]) [address], [address] [place] [address] MCHC (RBC) [Mass/Vol] 34.6 g/dL Normal 32-36 [facility] Comment on above: Performed By: #### C BCA, CMP, 1833-, , FEPR, 6-4, 2283-8, 2132-03, TSHR #### [facility] ([id number]) [address], [address] [place] [address] MCV (RBC) [Entitic vol] 92 fL Normal 80-100 P [facility] Comment on above: Performed By: #### C BCA, CMP, 1833-07, , FEPR, 2275-4, 2283-8, 2132-03, TSHR #### [facility] ([id number]) [address], [address] [place] [address] Monocytes (Bld) [#/Vol] 1.1 10*3/uL High 0-0.9 [facility] Comment on above: Performed By: #### C BCA, CMP, 1833-, , FEPR, 6-4, 2283-8, 2132-03, TSHR #### [facility] ([id number]) [address], [address] [place] [address] Monocytes/100 WBC (Bld) 11.1 % Normal P [facility] Comment on above: Performed By: #### C BCA, CMP, 1833-07, 25884-0, FEPR, 2276-4, 2284-8, 2131-9, TSHR #### [facility] ([id number]) [address] [address] Neutrophils/100 WBC (Bld) 83.8 % Normal [facility] Comment on above: Performed By: #### C BCA, CMP, 1833-, 24478-0, FEPR, 2276-4, 2284-8, 2131-9, TSHR #### [facility] ([id number]) [address], [address] [address] Platelet mean volume (Bld) [Entitic vol] 7.6 fL Normal 7-12 [facility] Comment on above: Performed By: #### C BCA, CMP, 1833-, 11275-0, FEPR, 2276-4, 2284-8, 2131-, TSHR #### [facility] ([id number]) [address] [address] Platelets (Bld) [#/Vol] 214 10*3/uL Normal 150-450 [facility] Comment on above: Performed By: #### C BCA, CMP, 1833-, 46566-3, FEPR, 2276-4, 2284-8, 2131-9, TSHR #### [facility] ([id number]) [address] [address] RBC COUNT 2.26 X10E12/L Low 4.10-5.70 [facility] Comment on above: Performed By: #### C BCA, CMP, 1833-, 41714-5, FEPR, 2276-4, 2284-8, 2131-9, TSHR #### [facility] ([id number]) [address] [address] [place] [address] WBC (Bld) [#/Vol] 10.0 10*3/uL Normal 4.0-11.0 [facility] Comment on above: Performed By: #### C BCA, CMP, 1834-1, 30949-9, FEPR, 2276-4, 2284-8, 9, TSHR #### [facility] ([id number]) [address] [place] [address] COMPREHENSIVE METABOLIC PANE Zoran 05-31-2024 Albumin [Mass/Vol] 2.5 g/dL Low 3.2-5.3 [facility] Comment on above: Performed By: #### C BCA, CMP, 4-1, 31909-4, FEPR, 2276-4, 2284-8, 2132-03, TSHR #### [facility] ([id number]) [address] [place] [address] ALP [Catalytic activity/Vol] 208 U/L High 39-130 [facility] Comment on above: Performed By: #### C BCA, CMP, 1833-1, 95020-6, FEPR, 2276-4, 2284-8, 2132-03, TSHR #### [facility] ([id number]) [address] [place] [address] ALT [Catalytic activity/Vol] 123 U/L High 0-40 [facility] Comment on above: Performed By: #### C BCA, CMP, 1833-1, 91882-3, FEPR, 2276-4, 2284-8, 9, TSHR #### [facility] ([id number]) [address] [place] [address] Anion gap [Moles/Vol] 7 mmol/L Normal 5-15 [facility] Comment on above: Performed By: #### C BCA, CMP, 1834-1, 55537-0, FEPR, 2276-4, 2284-8, 2131-9, TSHR #### [facility] ([id number]) [address] [place] [address] AST [Catalytic activity/Vol] 149 U/L High 0-41 [facility] Comment on above: Performed By: #### C BCA, CMP, 1833-, 60878-7, FEPR, 2276-4, 2284-8, 2131-9, TSHR #### [facility] ([id number]) [address] [place] [address] Bilirubin [Mass/Vol] 1.6 mg/dL High 0.3-1.[address] [facility] Comment on above: Performed By: #### C BCA, CMP, 1833-, , FEPR, 2276-4, 2284-8, 2132-03, TSHR #### [facility] ([id number]) [address] [place] [address] Calcium [Mass/Vol] 8.7 mg/dL Normal 8.5-10.5 [facility] Comment on above: Performed By: #### C BCA, CMP, 1833-07, , FEPR, 2276-4, 2284-8, 2132-03, TSHR #### [facility] ([id number]) [address] [place] [address] Chloride [Moles/Vol] 97 mmol/L Low 98-[address] [facility] Comment on above: Performed By: #### C BCA, CMP, 1833-07, , FEPR, 2276-4, 2284-8, 9, TSHR #### [facility] ([id number]) [address] [place] [address] CO2 [Moles/Vol] 27 mmol/L Normal 22-32 [facility] Comment on above: Performed By: #### C BCA, CMP, 1833-, 22925-4, FEPR, 2276-4, 2284-8, 9, TSHR #### [facility] ([id number]) [address] [place] [address] Creatinine [Mass/Vol] 1.49 mg/dL High 0.60-1.30 [facility] Comment on above: Result Comment: METH OD TRACEABLE TO IDMS STANDARD Performed By: #### C BCA, CMP, 1833-1, 35811-8, FEPR, 2276-4, 2284-8, 2132-03, TSHR #### [facility] ([id number]) [address] [place] [address] GFR/1.73 sq M.predicted among non-blacks MDRD (S/P/Bld) [Vol rate/Area] 47 mL/min/{1.73_m2} Low >59 [facility] Comment on above: Result Comment: Reported eGFR is based on the CKD-EPI 2020 equation that does not use a race coefficient. Performed By: #### C BCA, CMP, 1833-07, 08574-7, FEPR, 2276-4, 2284-8, 2132-03, TSHR #### [facility] ([id number]) [address] [place] [address] Glucose [Mass/Vol] 111 mg/dL High 65-99 [facility] Comment on above: Performed By: #### C BCA, CMP, 1833-, 49342-5, FEPR, 2276-4, 2284-8, 2132-03, TSHR #### [facility] ([id number]) [address] [place] [address] Potassium [Moles/Vol] 3.9 mmol/L Normal 3.5-5.0 [facility] Comment on above: Performed By: #### C BCA, CMP, 1833-, 09829-2, FEPR, 2276-4, 2284-8, 9, TSHR #### [facility] ([id number]) [address] [place] [address], [address] [place] [address] Protein [Mass/Vol] 5.4 g/dL Low 6.0-8.0 [facility] Comment on above: Performed By: #### C BCA, CMP, 1834-1, 95822-9, FEPR, 2276-4, 2284-8, 2131-9, TSHR #### [facility] ([id number]) [address] [place] [address], [address] [place] [address] Sodium [Moles/Vol] 131 mmol/L Low 134-146 [facility] Comment on above: Performed By: #### C BCA, CMP, 1834-1, 74311-4, FEPR, 2276-4, 2284-8, 2131-9, TSHR #### [facility] ([id number]) [address] [place] [address] [address] [place] [address] Urea nitrogen [Mass/Vol] 39 mg/dL High 5-27 [facility] Comment on above: Performed By: #### C BCA, CMP, 1834-1, 02658-0, FEPR, 2276-4, 2284-8, 2131-9, TSHR #### [facility] ([id number]) [address] [place] [address], [address] [address] Clinical Pathologyon 024 Clinical Pathology Normal [facility] Comment on above: Result Comment: [facility] [address] [place] [id number] Clinical Pathology Report Patient Name:MYKEL OLIVERA:1940 (Age: 84)Gender:MTaken:4Reported:4Physician(s):CHEMO RODRIGUES, N.PJosefina ([phone])Copy To: Rec. 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 Hypoalbuminemia with increase in acute phase reactants. Report Electronically Signed Out 06/01/2024violeta Spain MD [place] [address], License number: [id number]. Clinical History K92.1 SERUM PROTEIN ELECTROPHORESIS SAMPLE NO: [id number] ELECTROPHORETIC FRACTION CONCENTRATIONS (g/dL) PATIENT REFERENCE RANGE [...] IgA : 309 IgM : 145 Free [place]: 9.52 Free Lambda: 9.11 Free [place]/Lambda ratio: 1.05 Specimen(s) Received 1: Serum Protein Electrophoresis 2: Serum IEP Fee Codes(s): 1; 17188-41 2; 43648-03 HGB AND HCTon 05-31-2024 Hematocrit (Bld) [Volume fraction] 23.0 % Low 39-49 [facility] Comment on above: Performed By: #### 1 9123-9 #### [facility] ([id number]) [facility], [address] [place] [address] Hemoglobin (Bld) [Mass/Vol] 7.8 g/dL Low 13.0-17.0 [facility] Comment on above: Performed By: #### 1 9123-9 #### [facility] ([id number]) [facility], [address] [place] [address] Hematocrit (Bld) [Volume fraction] 23.4 % Low 39-49 [facility] Comment on above: Performed By: #### 1 9123-9 #### [facility] ([id number]) [address], [address] [place] [address] Hemoglobin (Bld) [Mass/Vol] 8.0 g/dL Low 13.0-17.0 [facility] Comment on above: Performed By: #### 1 9123-9 #### [facility] ([id number]) [address], [address] [place] [address] Haptoglobin Nephelometry [Ma ss/Vol]on 05-31-2024 HAPTOGLOBIN 251 mg/dL High 32-228 [facility] Comment on above: Performed By: #### 1 9123-9 #### [facility] ([id number]) [address], [address] [place] [address] IMMUNOELECTROPHORESIS FOR TH ERAPY MONITORINGon 05-31-2024 FREE SHEREE/LAMBD RATIO 1.05 Normal 0.26-1.[address] [facility] Comment on above: Performed By: #### C BCA, CMP, 1833-, , FEPR, 6-4, 4-8, 2132-03, TSHR #### [facility] ([id number]) [address], [address] [place] [address] FREE KAPPA LT CHAINS 9.52 mg/dL High 0.33-1.[address] [facility] Comment on above: Performed By: #### C BCA, CMP, 1833-, , FEPR, 2276-4, 4-8, 9, TSHR #### [facility] ([id number]) [address], [address] [place] [address] FREE LAMBDA LT CHAINS 9.11 mg/dL High 0.57-2.63 [facility] Comment on above: Performed By: #### C BCA, CMP, 1833-, 88594-5, FEPR, 2276-4, 2284-8, 9, TSHR #### [facility] ([id number]) [address], [address] [place] [address] IgA [Mass/Vol] 309 mg/dL Normal 68-378 [facility] Comment on above: Performed By: #### C BCA, CMP, 1834-1, 99435-1, FEPR, 2276-4, 2284-8, 2132-9, TSHR #### [facility] ([id number]) [address], [address] [place] [address] IgG [Mass/Vol] 1041 mg/dL Normal 635-1741 [facility] Comment on above: Performed By: #### C BCA, CMP, 4-, 26141-0, FEPR, 2276-4, 2284-8, 2131-9, TSHR #### [facility] ([id number]) [address], [address] [place] [address] IgM [Mass/Vol] 145 mg/dL Normal 45-281 [facility] Comment on above: Performed By: #### C BCA, CMP, 4-, 46963-4, FEPR, 2276-4, 2284-8, 2131-9, TSHR #### [facility] ([id number]) [address] [address] [place] [address] IMMUNE PROFILE INTERP SEE SEPARATE REPORT Normal [facility] Comment on above: Performed By: #### C BCA, CMP, 4-, 09715-4, FEPR, 2276-4, 2284-8, 2131-9, TSHR #### [facility] ([id number]) [address] [place] [address] LDH [Catalytic activity/Vol] on 05-31-2024 LDH 291 U/L High 100-235 [facility] Comment on above: Performed By: #### 1 9123-9 #### [facility] ([id number]) [address], [address] [place] [address] MAGNESIUMon 11-04-2024 Magnesium [Mass/Vol] 2.0 mg/dL Normal 1.8-2.[address] [facility] Comment on above: Performed By: #### C JIN, CMP, 1833-, 75414-5, FEPR, 2276-4, 2283-8, 2132-03, TSHR #### [facility] ([id number]) [address] [place] [address] Osmolality (U) [Osmolality]o n 05-31-2024 URINE OSMOLALITY 372 mOsm/kg H2 Normal 300-[address] [facility] Comment on above: Performed By: #### 1 9 #### [facility] ([id number]) [address], [address] [place] [address] PROTIME AND INRon 05-31-2024 INR Coag (PPP) [Relative time] 1.2 {INR} High 0.8-1.1 [facility] Comment on above: Performed By: #### C JIN, CMP, 1833-07, , FEPR, 6-4, 2283-8, 2132-03, TSHR #### [facility] ([id number]) [address] [place] [address] PT Coag (PPP) [Time] 14.3 s High 9.8-13.[address] [facility] Comment on above: Performed By: #### C JIN, CMP, 1833-07, , FEPR, 6-4, 2283-8, 2132-03, TSHR #### [facility] ([id number]) [address], [address] [place] [address] Reticulocytes/100 RBC (Bld)o n 05-31-2024 RETICULOCYTE COUNT 3.7 % High 0.4-2.2 [facility] Comment on above: Performed By: #### 1 9123-03 #### [facility] ([id number]) [address], [address] [place] [address] SERUM PROTEIN ELECTROPHORESI Son 05-31-2024 Albumin [Mass/Vol] 2.1 g/dL Low 3.4-5.3 [facility] Comment on above: Performed By: #### C BCA, CMP, 4-1, 85625-4, FEPR, 2276-4, 2284-8, 2131-9, TSHR #### [facility] ([id number]) [address], [address] [place] [address] ALPHA 1 GLOBULIN 0.6 g/dL High 0.1-0.4 [facility] Comment on above: Performed By: #### C BCA, CMP, 1833-, 12184-2, FEPR, 2276-4, 4-8, 2132-03, TSHR #### [facility] ([id number]) [address], [address] [place] [address] ALPHA 2 GLOBULIN 0.8 g/dL Normal 0.4-1.1 [facility] Comment on above: Performed By: #### C BCA, CMP, 1833-, , FEPR, 2276-4, 2283-8, 2132-03, TSHR #### [facility] ([id number]) [address], [address] [place] [address] BETA GLOBULIN 0.8 g/dL Normal 0.5-1.2 [facility] Comment on above: Performed By: #### C BCA, CMP, 1833-, 22266-8, FEPR, 2276-4, 2284-8, 9, TSHR #### [facility] ([id number]) [address], [address] [place] [address] GAMMA GLOBULIN 0.9 g/dL Normal 0.5-1.6 [facility] Comment on above: Performed By: #### C BCA, CMP, 1833-, 93480-7, FEPR, 2276-4, 2284-8, 2131-9, TSHR #### [facility] ([id number]) [address], [address] [place] [address] PROT. ELECTROPHORESIS INTERP SEE SEPARATE REPORT Normal [facility] Comment on above: Performed By: #### C BCA, CMP, 4-1, 91741-2, FEPR, 2276-4, 2284-8, 9, TSHR #### [facility] ([id number]) [address] [place] [address] Protein [Mass/Vol] 5.2 g/dL Low 6.0-8.0 [facility] Comment on above: Performed By: #### C BCA, CMP, 4-1, 01757-1, FEPR, 2276-4, 2284-8, 2131-9, TSHR #### [facility] ([id number]) [address], [address] [place] [address] SODIUMon 05-31-2024 Sodium [Moles/Vol] 128 mmol/L Low 134-146 [facility] Comment on above: Performed By: #### C BCA, CMP, 1833-, 27286-7, FEPR, 2276-4, 2284-8, 2131-9, TSHR #### [facility] ([id number]) [address], [address] [place] [address] Sodium [Moles/Vol] 132 mmol/L Low 134-146 [facility] Comment on above: Performed By: #### 1 9123-9 #### [facility] ([id number]) [address], [address] [place] [address] Sodium [Moles/Vol] 135 mmol/L Normal 134-146 [facility] Comment on above: Performed By: #### 1 9123-9 #### [facility] ([id number]) [address] [place] [address] Sodium [Moles/Vol] 134 mmol/L Normal 134-146 [facility] Comment on above: Performed By: #### 1 9123-9 #### [facility] ([id number]) [address], [address] [place] [address] Sodium [Moles/Vol] 133 mmol/L Low 134-146 [facility] Comment on above: Performed By: #### C BCA, CMP, 1833-07, , FEPR, 2275-4, 2283-8, 2132-03, TSHR #### [facility] ([id number]) [address] [place] [address] Sodium [Moles/Vol] 129 mmol/L Low 134-146 [facility] Comment on above: Performed By: #### C BCA, CMP, 1833-07, , FEPR, 2275-4, 2284-02, 2132-03, TSHR #### [facility] ([id number]) [address] [place] [address] URINE SODIUM,RANDOMon 2023 Sodium (U) [Moles/Vol] 48 mmol/L Normal [facility] Comment on above: Performed By: #### 1 [address] #### [facility] ([id number]) [address], [address] [place] [address] CBC AND AUTO DIFFon 05-30-20 24 ABSOLUTE BASOPHIL 0.0 X10E9/L Normal 0.0-0.2 [facility] Comment on above: Performed By: #### C BCA, CMP, 1833-07, , FEPR, 2275-4, 2283-8, 2132-03, TSHR #### [facility] ([id number]) [address] [place] [address] ABSOLUTE NEUTROPHIL 8.7 X10E9/L High 1.5-6.6 [facility] Comment on above: Performed By: #### C BCA, CMP, 1833-, 53232-2, FEPR, 2276-4, 4-8, 2132-03, TSHR #### [facility] ([id number]) [address], [address] [place] [address] Basophils/100 WBC (Bld) 0.1 % Normal P [facility] Comment on above: Performed By: #### C BCA, CMP, 1833-, , FEPR, 2276-4, 2284-8, 2132-03, TSHR #### [facility] ([id number]) [address] [place] [address] Eosinophils (Bld) [#/Vol] 0.1 10*3/uL Normal 0.0-0.4 [facility] Comment on above: Performed By: #### C BCA, CMP, 1833-07, , FEPR, 6-4, 2283-8, 2132-03, TSHR #### [facility] ([id number]) [address], [address] [place] [address] Eosinophils/100 WBC (Bld) 0.6 % Normal [facility] Comment on above: Performed By: #### C BCA, CMP, 1833-07, , FEPR, 6-4, 2283-8, 2132-03, TSHR #### [facility] ([id number]) [address] [place] [address] Erythrocyte distribution width (RBC) [Ratio] 15.4 % High 11.5-15.0 [facility] Comment on above: Performed By: #### C BCA, CMP, 1833-, 17069-9, FEPR, 2276-4, 2284-8, 2132-03, TSHR #### [facility] ([id number]) [address] [address] [place] [address] Hematocrit (Bld) [Volume fraction] 21.0 % Low 39-49 [facility] Comment on above: Performed By: #### C BCA, CMP, 1833-, 70410-5, FEPR, 2276-4, 2284-8, 2132-03, TSHR #### [facility] ([id number]) [address] [address] [place] [address] Hemoglobin (Bld) [Mass/Vol] 7.2 g/dL Low 13.0-17.0 [facility] Comment on above: Performed By: #### C BCA, CMP, 1833-07, , FEPR, 2276-4, 2283-8, 2132-03, TSHR #### [facility] ([id number]) [address] [address] Lymphocytes (Bld) [#/Vol] 0.4 10*3/uL Low 1.0-3.5 [facility] Comment on above: Performed By: #### C BCA, CMP, 1833-07, , FEPR, 6-4, 2283-8, 2132-03, TSHR #### [facility] ([id number]) [address] [address] Lymphocytes/100 WBC (Bld) 4.2 % Normal [facility] Comment on above: Performed By: #### C BCA, CMP, 1833-07, , FEPR, 6-4, 2283-8, 2132-03, TSHR #### [facility] ([id number]) [address] [address] MCH (RBC) [Entitic mass] 31.3 pg Normal 27-34 [facility] Comment on above: Performed By: #### C BCA, CMP, 1833-07, , FEPR, 2276-4, 2283-8, 2132-03, TSHR #### [facility] ([id number]) [address] [place] [address] MCHC (RBC) [Mass/Vol] 34.3 g/dL Normal 32-36 [facility] Comment on above: Performed By: #### C BCA, CMP, 1833-, 34994-6, FEPR, 6-4, 2283-8, 2132-03, TSHR #### [facility] ([id number]) [address] [place] [address] MCV (RBC) [Entitic vol] 91 fL Normal 80-100 P [facility] Comment on above: Performed By: #### C BCA, CMP, 1833-, 64074-1, FEPR, 2275-4, 2283-8, 2132-03, TSHR #### [facility] ([id number]) [address] [place] [address] Monocytes (Bld) [#/Vol] 1.3 10*3/uL High 0-0.9 [facility] Comment on above: Performed By: #### C BCA, CMP, 1833-, 14310-7, FEPR, 2275-4, 2283-8, 2132-03, TSHR #### [facility] ([id number]) [address] [place] [address] Monocytes/100 WBC (Bld) 12.0 % Normal P [facility] Comment on above: Performed By: #### C BCA, CMP, 4-, 57325-3, FEPR, 6-4, 2283-8, 2132-03, TSHR #### [facility] ([id number]) [address] [place] [address] Neutrophils/100 WBC (Bld) 83.1 % Normal [facility] Comment on above: Performed By: #### C BCA, CMP, 1833-, 15608-1, FEPR, 2276-4, 2284-8, 2131-9, TSHR #### [facility] ([id number]) [address] [place] [address] Platelet mean volume (Bld) [Entitic vol] 7.7 fL Normal 7-12 [facility] Comment on above: Performed By: #### C BCA, CMP, 1833-, 47437-4, FEPR, 2276-4, 2284-8, 2131-9, TSHR #### [facility] ([id number]) [address] [address] Platelets (Bld) [#/Vol] 218 10*3/uL Normal 150-450 [facility] Comment on above: Performed By: #### C BCA, CMP, 1833-, 75930-5, FEPR, 2276-4, 2284-8, 2131-9, TSHR #### [facility] ([id number]) [address] [address] [place] [address] RBC COUNT 2.31 X10E12/L Low 4.10-5.70 [facility] Comment on above: Performed By: #### C BCA, CMP, 1833-, 95188-6, FEPR, 2276-4, 2284-8, 2131-9, TSHR #### [facility] ([id number]) [address] [place] [address] WBC (Bld) [#/Vol] 10.5 10*3/uL Normal 4.0-11.0 [facility] Comment on above: Performed By: #### C BCA, CMP, 1833-, 00296-1, FEPR, 2276-4, 2284-8, 2-9, TSHR #### [facility] ([id number]) [address] [place] [address] COMPREHENSIVE METABOLIC PANE [facility] 05-30-2024 Albumin [Mass/Vol] 2.6 g/dL Low 3.2-5.3 [facility] Comment on above: Performed By: #### C BCA, CMP, 1834-1, 90146-7, FEPR, 2276-4, 2284-8, 2131-9, TSHR #### [facility] ([id number]) [address] [place] [address] ALP [Catalytic activity/Vol] 211 U/L High 39-130 [facility] Comment on above: Performed By: #### C BCA, CMP, 1833-, 64029-7, FEPR, 2276-4, 2284-8, 2131-9, TSHR #### [facility] ([id number]) [address] [place] [address] ALT [Catalytic activity/Vol] 135 U/L High 0-40 [facility] Comment on above: Performed By: #### C BCA, CMP, 1833-, 50832-0, FEPR, 2276-4, 2284-8, 2131-9, TSHR #### [facility] ([id number]) [address] [place] [address] Anion gap [Moles/Vol] 8 mmol/L Normal 5-15 [facility] Comment on above: Performed By: #### C BCA, CMP, 183-1, 88355-9, FEPR, 2276-4, 2284-8, 2131-9, TSHR #### [facility] ([id number]) [address] [place] [address] AST [Catalytic activity/Vol] 173 U/L High 0-41 [facility] Comment on above: Performed By: #### C BCA, CMP, 183-1, 23684-8, FEPR, 2276-4, 2284-8, 2131-9, TSHR #### [facility] ([id number]) [address] [place] [address] Bilirubin [Mass/Vol] 1.6 mg/dL High 0.3-1.[address] [facility] Comment on above: Performed By: #### C BCA, CMP, 1833-1, 64740-9, FEPR, 2276-4, 2284-8, 2131-9, TSHR #### [facility] ([id number]) [address] [place] [address] Calcium [Mass/Vol] 8.6 mg/dL Normal 8.5-10.5 [facility] Comment on above: Performed By: #### C BCA, CMP, 1833-, 85254-6, FEPR, 2276-4, 2284-8, 2131-9, TSHR #### [facility] ([id number]) [address] [place] [address] Chloride [Moles/Vol] 93 mmol/L Low 98-[address] [facility] Comment on above: Performed By: #### C BCA, CMP, 1833-07, , FEPR, 2276-4, 2284-8, 2131-9, TSHR #### [facility] ([id number]) [address] [place] [address] CO2 [Moles/Vol] 27 mmol/L Normal 22-32 [facility] Comment on above: Performed By: #### C BCA, CMP, 1833-, 48656-9, FEPR, 2276-4, 2284-8, 2131-9, TSHR #### [facility] ([id number]) [address] [place] [address] Creatinine [Mass/Vol] 1.61 mg/dL High 0.60-1.30 [facility] Comment on above: Result Comment: METH OD TRACEABLE TO IDMS STANDARD Performed By: #### C BCA, CMP, 1833-, 70117-5, FEPR, 2276-4, 2284-8, 9, TSHR #### [facility] ([id number]) [address] [address] GFR/1.73 sq M.predicted among non-blacks MDRD (S/P/Bld) [Vol rate/Area] 42 mL/min/{1.73_m2} Low >59 [facility] Comment on above: Result Comment: Reported eGFR is based on the CKD-EPI 2020 equation that does not use a race coefficient. Performed By: #### C BCA, CMP, 1833-07, , FEPR, 2276-4, 228-8, 2132-03, TSHR #### [facility] ([id number]) [address] [address] Glucose [Mass/Vol] 119 mg/dL High 65-99 [facility] Comment on above: Performed By: #### C BCA, CMP, 1833-07, , FEPR, 2276-4, 228-8, 2132-03, TSHR #### [facility] ([id number]) [address] [address] Potassium [Moles/Vol] 4.0 mmol/L Normal 3.5-5.0 [facility] Comment on above: Performed By: #### C BCA, CMP, 1833-07, 45136-4, FEPR, 2276-4, 2284-8, 9, TSHR #### [facility] ([id number]) [address] [address] Protein [Mass/Vol] 5.6 g/dL Low 6.0-8.0 [facility] Comment on above: Performed By: #### C BCA, CMP, 1833-, 45314-2, FEPR, 2276-4, 2284-8, 9, TSHR #### [facility] ([id number]) [address] [place] [address] Sodium [Moles/Vol] 128 mmol/L Low 134-146 [facility] Comment on above: Performed By: #### C BCA, CMP, 1833-, 65049-9, FEPR, 2276-4, 4-8, 2132-03, TSHR #### [facility] ([id number]) [address] [place] [address] Urea nitrogen [Mass/Vol] 45 mg/dL High 5-27 [facility] Comment on above: Performed By: #### C BCA, CMP, 1833-, , FEPR, 6-4, 2283-8, 2132-03, TSHR #### [facility] ([id number]) [address] [place] [address] Glucose Glucometer (BldC) [M ass/Vol]on 05-30-2024 Glucose [Mass/Vol] 147 mg/dL High 65-99 [facility] HGB AND HCTon 05-30-2024 Hematocrit (Bld) [Volume fraction] 23.3 % Low 39-49 [facility] Comment on above: Performed By: #### C BCA, CMP, 1833-, , FEPR, 6-4, 2283-8, 2132-03, TSHR #### [facility] ([id number]) [address] [place] [address] Hemoglobin (Bld) [Mass/Vol] 8.1 g/dL Low 13.0-17.0 [facility] Comment on above: Performed By: #### C BCA, CMP, 1833-, , FEPR, 2276-4, 2283-8, 2132-03, TSHR #### [facility] ([id number]) [address] [place] [address] MAGNESIUMon 05-30-2024 Magnesium [Mass/Vol] 2.1 mg/dL Normal 1.8-2.[address] [facility] Comment on above: Performed By: #### C BCA, CMP, 1833-1, 30181-7, FEPR, 2276-4, 2284-8, 2132-03, TSHR #### [facility] ([id number]) [address] [place] [address] Magnesium [Mass/Vol] 1.7 mg/dL Low 1.8-2.[address] [facility] Comment on above: Performed By: #### C BCA, CMP, 1833-, , FEPR, 6-4, 2283-8, 2132-03, TSHR #### [facility] ([id number]) [address] [place] [address] Osmolality (U) [Osmolality]o n 05-30-2024 URINE OSMOLALITY 559 mOsm/kg H2 Normal 300-[address] [facility] Comment on above: Performed By: #### C BCA, CMP, 1833-07, , FEPR, 6-4, 2283-8, 2132-03, TSHR #### [facility] ([id number]) [address] [place] [address] PHOSPHORUSon 05-30-2024 Phosphate [Mass/Vol] 2.6 mg/dL Normal 2.4-4.[address] [facility] Comment on above: Performed By: #### C BCA, CMP, 1833-07, , FEPR, 6-4, 2283-8, 2132-03, TSHR #### [facility] ([id number]) [address] [place] [address] PROTIME AND INRon 05-30-2024 INR Coag (PPP) [Relative time] 1.3 {INR} High 0.8-1.1 [facility] Comment on above: Performed By: #### C BCA, CMP, 1833-, 57164-3, FEPR, 2276-4, 2284-8, 2132-03, TSHR #### [facility] ([id number]) [address], [address] [place] [address] PT Coag (PPP) [Time] 14.5 s High 9.8-13.[address] [facility] Comment on above: Performed By: #### C BCA, CMP, 1833-, 83779-5, FEPR, 2276-4, 228-8, 2132-03, TSHR #### [facility] ([id number]) [address], [address] [place] [address] SODIUMon 05-30-2024 Sodium [Moles/Vol] 126 mmol/L Low 134-146 [facility] Comment on above: Performed By: #### C BCA, CMP, 1833-07, , FEPR, 2276-4, 228-8, 2132-03, TSHR #### [facility] ([id number]) [address], [address] [place] [address] Sodium [Moles/Vol] 125 mmol/L Low 134-146 [facility] Comment on above: Performed By: #### C BCA, CMP, 1833-07, , FEPR, 6-4, 2283-8, 2132-03, TSHR #### [facility] ([id number]) [address], [address] [place] [address] Sodium [Moles/Vol] 127 mmol/L Low 134-146 [facility] Comment on above: Performed By: #### C BCA, CMP, 1833-, 47314-3, FEPR, 2276-4, 2284-8, 2132-03, TSHR #### [facility] ([id number]) [address], [address] [place] [address] URINE SODIUM,RANDOMon 2023 Sodium (U) [Moles/Vol] 31 mmol/L Normal [facility] Comment on above: Performed By: #### C BCA, CMP, 1833-07, , FEPR, 6-4, 2283-8, 2132-03, TSHR #### [facility] ([id number]) [address], [address] [place] [address] CBC AND AUTO DIFFon 05-29-20 24 ABSOLUTE BASOPHIL 0.0 X10E9/L Normal 0.0-0.2 [facility] Comment on above: Performed By: #### C BCA, CMP, 1833-07, , FEPR, 2275-4, 2283-8, 2132-03, TSHR #### [facility] ([id number]) [address], [address] [place] [address] ABSOLUTE NEUTROPHIL 7.9 X10E9/L High 1.5-6.[address] [facility] Comment on above: Performed By: #### C BCA, CMP, 1833-07, , FEPR, 2275-4, 2284-02, 2132-03, TSHR #### [facility] ([id number]) [address], [address] [place] [address] Basophils/100 WBC (Bld) 0.1 % Normal P [facility] Comment on above: Performed By: #### C BCA, CMP, 1833-07, , FEPR, 2275-4, 2283-8, 2132-03, TSHR #### [facility] ([id number]) [address], [address] [place] [address] Eosinophils (Bld) [#/Vol] 0.0 10*3/uL Normal 0.0-0.4 [facility] Comment on above: Performed By: #### C BCA, CMP, 1833-07, 01619-2, FEPR, 2276-4, 2284-8, 9, TSHR #### [facility] ([id number]) [address], [address] [place] [address] Eosinophils/100 WBC (Bld) 0.3 % Normal [facility] Comment on above: Performed By: #### C BCA, CMP, 1833-, 41717-6, FEPR, 2276-4, 2284-8, 2132-03, TSHR #### [facility] ([id number]) [address] [address] [facility] [address] [place] [address] Erythrocyte distribution width (RBC) [Ratio] 15.2 % High 11.5-15.0 [facility] Comment on above: Performed By: #### C BCA, CMP, 1833-, , FEPR, 6-4, 2283-8, 2132-03, TSHR #### [facility] ([id number]) [address] [address] Hematocrit (Bld) [Volume fraction] 21.1 % Low 39-49 [facility] Comment on above: Performed By: #### C BCA, CMP, 1833-, , FEPR, 2276-4, 2283-8, 2132-03, TSHR #### [facility] ([id number]) [address] [address] [place] [address] Hemoglobin (Bld) [Mass/Vol] 7.4 g/dL Low 13.0-17.0 [facility] Comment on above: Performed By: #### C BCA, CMP, 1833-, 21733-5, FEPR, 2276-4, 228-8, 2132-03, TSHR #### [facility] ([id number]) [address] [address] [place] [address] Lymphocytes (Bld) [#/Vol] 0.4 10*3/uL Low 1.0-3.5 [facility] Comment on above: Performed By: #### C BCA, CMP, 1833-07, , FEPR, 6-4, 2283-8, 2132-03, TSHR #### [facility] ([id number]) [address] [place] [address] Lymphocytes/100 WBC (Bld) 3.7 % Normal [facility] Comment on above: Performed By: #### C BCA, CMP, 1833-07, , FEPR, 2275-4, 2283-8, 2132-03, TSHR #### [facility] ([id number]) [address] [place] [address] MCH (RBC) [Entitic mass] 31.8 pg Normal 27-34 [facility] Comment on above: Performed By: #### C BCA, CMP, 1833-07, , FEPR, 2275-4, 2284-02, 2132-03, TSHR #### [facility] ([id number]) [address] [place] [address] MCHC (RBC) [Mass/Vol] 35.0 g/dL Normal 32-36 [facility] Comment on above: Performed By: #### C BCA, CMP, 1833-07, , FEPR, 2275-4, 2284-02, 2132-03, TSHR #### [facility] ([id number]) [address] [place] [address] MCV (RBC) [Entitic vol] 91 fL Normal 80-100 [facility] Comment on above: Performed By: #### C BCA, CMP, 1833-, , FEPR, 6-4, 2283-8, 2132-03, TSHR #### [facility] ([id number]) [address] [place] [address] Monocytes (Bld) [#/Vol] 1.2 10*3/uL High 0-0.9 [facility] Comment on above: Performed By: #### C BCA, CMP, 1834-1, 70649-1, FEPR, 2276-4, 2284-8, 2131-9, TSHR #### [facility] ([id number]) [address] [place] [address] Monocytes/100 WBC (Bld) 12.5 % Normal P [facility] Comment on above: Performed By: #### C BCA, CMP, 1833-, 83034-8, FEPR, 2276-4, 2284-8, 2131-, TSHR #### [facility] ([id number]) [address] [place] [address] Neutrophils/100 WBC (Bld) 83.4 % Normal [facility] Comment on above: Performed By: #### C BCA, CMP, 1833-, 36772-3, FEPR, 2276-4, 2284-8, 2131-, TSHR #### [facility] ([id number]) [address] [place] [address] Platelet mean volume (Bld) [Entitic vol] 7.7 fL Normal 7-12 [facility] Comment on above: Performed By: #### C BCA, CMP, 1833-, 49897-7, FEPR, 2276-4, 2284-8, 2131-9, TSHR #### [facility] ([id number]) [address] [place] [address] Platelets (Bld) [#/Vol] 220 10*3/uL Normal 150-450 [facility] Comment on above: Performed By: #### C BCA, CMP, 1833-, 65056-9, FEPR, 2276-4, 2284-8, 2131-9, TSHR #### [facility] ([id number]) [address] [place] [address] RBC COUNT 2.33 X10E12/L Low 4.10-5.70 [facility] Comment on above: Performed By: #### C BCA, CMP, 4-1, 01300-6, FEPR, 2276-4, 2284-8, 2131-9, TSHR #### [facility] ([id number]) [address], [address] [place] [address] WBC (Bld) [#/Vol] 9.5 10*3/uL Normal 4.0-11.0 [facility] Comment on above: Performed By: #### C BCA, CMP, 1833-1, 13763-5, FEPR, 2276-4, 2283-8, 2132-03, TSHR #### [facility] ([id number]) [address] [place] [address] COMPREHENSIVE METABOLIC PANE [facility] 05-29-2024 Albumin [Mass/Vol] 2.8 g/dL Low 3.2-5.3 [facility] Comment on above: Performed By: #### C BCA, CMP, 1833-1, 75692-1, FEPR, 2276-4, 2283-8, 2132-03, TSHR #### [facility] ([id number]) [address] [place] [address] ALP [Catalytic activity/Vol] 209 U/L High 39-130 [facility] Comment on above: Performed By: #### C BCA, CMP, 1833-1, 50496-7, FEPR, 2276-4, 2284-8, 2131-, TSHR #### [facility] ([id number]) [address] [place] [address] ALT [Catalytic activity/Vol] 150 U/L High 0-40 [facility] Comment on above: Performed By: #### C BCA, CMP, 1834-1, 96508-7, FEPR, 2276-4, 2284-8, 9, TSHR #### [facility] ([id number]) [address] [place] [address] Anion gap [Moles/Vol] 11 mmol/L Normal 5-15 [facility] Comment on above: Performed By: #### C BCA, CMP, 4-1, 35451-8, FEPR, 2276-4, 2284-8, 2132-03, TSHR #### [facility] ([id number]) [address], [address] [place] [address] AST [Catalytic activity/Vol] 221 U/L High 0-41 [facility] Comment on above: Performed By: #### C BCA, CMP, 1833-, 31962-7, FEPR, 6-4, 2283-8, 2132-03, TSHR #### [facility] ([id number]) [address] [place] [address] Bilirubin [Mass/Vol] 1.7 mg/dL High 0.3-1.[address] [facility] Comment on above: Performed By: #### C BCA, CMP, 4-1, 62582-2, FEPR, 2276-4, 2284-8, 2132-03, TSHR #### [facility] ([id number]) [address], [address] [place] [address] Calcium [Mass/Vol] 8.7 mg/dL Normal 8.5-10.5 [facility] Comment on above: Performed By: #### C BCA, CMP, 1833-1, 92234-9, FEPR, 2276-4, 2284-8, 9, TSHR #### [facility] ([id number]) [address], [address] [place] [address] Chloride [Moles/Vol] 92 mmol/L Low 98-[address] [facility] Comment on above: Performed By: #### C BCA, CMP, 1833-, 95911-9, FEPR, 2276-4, 2283-8, 2132-03, TSHR #### [facility] ([id number]) [address] [place] [address] CO2 [Moles/Vol] 24 mmol/L Normal 22-32 [facility] Comment on above: Performed By: #### C BCA, CMP, 1833-07, , FEPR, 6-4, 2283-8, 2132-03, TSHR #### [facility] ([id number]) [address] [facility] [place] [address] Creatinine [Mass/Vol] 1.69 mg/dL High 0.60-1.30 [facility] Comment on above: Result Comment: METH OD TRACEABLE TO IDMS STANDARD Performed By: #### C BCA, CMP, 1833-07, , FEPR, 6-4, 2283-8, 2132-03, TSHR #### [facility] ([id number]) [address] [place] [address] GFR/1.73 sq M.predicted among non-blacks MDRD (S/P/Bld) [Vol rate/Area] 40 mL/min/{1.73_m2} Low >59 [facility] Comment on above: Result Comment: Reported eGFR is based on the CKD-EPI 2020 equation that does not use a race coefficient. Performed By: #### C BCA, CMP, 1833-1, 89108-9, FEPR, 2276-4, 2283-8, 2132-03, TSHR #### [facility] ([id number]) [address] [place] [address] Glucose [Mass/Vol] 130 mg/dL High 65-99 [facility] Comment on above: Performed By: #### C BCA, CMP, 1833-07, 25929-4, FEPR, 2276-4, 2284-8, 9, TSHR #### [facility] ([id number]) [address] [place] [address] Potassium [Moles/Vol] 4.0 mmol/L Normal 3.5-5.0 [facility] Comment on above: Performed By: #### C BCA, CMP, 1833-, 27945-5, FEPR, 2276-4, 2284-8, 9, TSHR #### [facility] ([id number]) [address] [place] [address] Protein [Mass/Vol] 5.6 g/dL Low 6.0-8.0 [facility] Comment on above: Performed By: #### C BCA, CMP, 1833-, , FEPR, 2276-4, 228-8, 2132-03, TSHR #### [facility] ([id number]) [address] [place] [address] Sodium [Moles/Vol] 127 mmol/L Low 134-146 [facility] Comment on above: Performed By: #### C BCA, CMP, 1833-, 43740-1, FEPR, 2276-4, 2284-8, 9, TSHR #### [facility] ([id number]) [address] [place] [address] Urea nitrogen [Mass/Vol] 51 mg/dL High 5-27 [facility] Comment on above: Performed By: #### C BCA, CMP, 1833-, 65555-1, FEPR, 2276-4, 2284-8, 9, TSHR #### [facility] ([id number]) [address] [place] [address] HGB AND HCTon 05-29-2024 Hematocrit (Bld) [Volume fraction] 21.1 % Low 39-49 [facility] Comment on above: Performed By: #### C BCA, CMP, 1833-, 23006-6, FEPR, 2276-4, 2284-8, 2132-03, TSHR #### [facility] ([id number]) [address] [place] [address] Hemoglobin (Bld) [Mass/Vol] 7.3 g/dL Low 13.0-17.0 [facility] Comment on above: Performed By: #### C BCA, CMP, 1833-07, , FEPR, 2276-4, 2284-8, 2132-03, TSHR #### [facility] ([id number]) [address] [place] [address] Hematocrit (Bld) [Volume fraction] 21.6 % Low 39-49 [facility] Comment on above: Performed By: #### C BCA, CMP, 1833-07, , FEPR, 2276-4, 228-8, 2132-03, TSHR #### [facility] ([id number]) [address] [place] [address] Hemoglobin (Bld) [Mass/Vol] 7.5 g/dL Low 13.0-17.0 [facility] Comment on above: Performed By: #### C BCA, CMP, 1833-07, 11525-8, FEPR, 2276-4, 2284-8, 2132-03, TSHR #### [facility] ([id number]) [address], [address] [place] [address] MAGNESIUMon 05-29-2024 Magnesium [Mass/Vol] 1.9 mg/dL Normal 1.8-2.[address] [facility] Comment on above: Performed By: #### C BCA, CMP, 1833-, 76515-8, FEPR, 2276-4, 2284-8, 2132-9, TSHR #### [facility] ([id number]) [address] [place] [address] MR ABDOMEN W WO CONTon 05-29 MR [...] Noriega MD on 05/29/2024 9:32 PM Normal [facility] Osmolality (U) [Osmolality]o n 05-29-2024 URINE OSMOLALITY 375 mOsm/kg H2 Normal 300-[address] [facility] Comment on above: Performed By: #### C BCA, CMP, 1833-, , FEPR, 2276-4, 2284-8, 2132-03, TSHR #### [facility] ([id number]) [address] [place] [address] Osmolality [Osmolality]on OSMOLALITY 275 mOsm/kg H2 Low 280-300 [facility] Comment on above: Performed By: #### C BCA, CMP, 1833-07, , FEPR, 2276-4, 228-8, 2132-03, TSHR #### [facility] ([id number]) [address] [place] [address] PROTIME AND INRon 05-29-2024 INR Coag (PPP) [Relative time] 1.2 {INR} High 0.8-1.1 [facility] Comment on above: Performed By: #### C BCA, CMP, 1833-07, , FEPR, 2276-4, 2284-8, 2132-03, TSHR #### [facility] ([id number]) [address] [place] [address] PT Coag (PPP) [Time] 14.3 s High 9.8-13.[address] [facility] Comment on above: Performed By: #### C BCA, CMP, 1833-07, 12245-7, FEPR, 2276-4, 2284-8, 2132-03, TSHR #### [facility] ([id number]) [address] [place] [address] SODIUMon 05-29-2024 Sodium [Moles/Vol] 127 mmol/L Low 134-146 [facility] Comment on above: Performed By: #### C BCA, CMP, 1833-, , FEPR, 6-4, 8, 2132-03, TSHR #### [facility] ([id number]) [address] [place] [address] Sodium [Moles/Vol] 126 mmol/L Low 134-146 [facility] Comment on above: Performed By: #### C BCA, CMP, 1833-07, , FEPR, 2275-4, 8, 2132-03, TSHR #### [facility] ([id number]) [address] [place] [address] Sodium [Moles/Vol] 126 mmol/L Low 134-146 [facility] Comment on above: Performed By: #### C BCA, CMP, 1833-07, , FEPR, 2275-4, 2284-02, 2132-03, TSHR #### [facility] ([id number]) [address] [place] [address] Sodium [Moles/Vol] 125 mmol/L Low 134-146 [facility] Comment on above: Performed By: #### C BCA, CMP, 1833-07, , FEPR, 2275-4, 8, 2132-03, TSHR #### [facility] ([id number]) [address] [place] [address] Sodium [Moles/Vol] 126 mmol/L Low 134-146 [facility] Comment on above: Performed By: #### C BCA, CMP, 1833-07, 77907-7, FEPR, 2276-4, 2284-8, 9, TSHR #### [facility] ([id number]) [address] [place] [address] URINE SODIUM,RANDOMon 2023 Sodium (U) [Moles/Vol] 88 mmol/L Normal [facility] Comment on above: Performed By: #### C BCA, CMP, 1833-, 46608-3, FEPR, 2276-4, 2284-8, 2132-03, TSHR #### [facility] ([id number]) [address] [place] [address] CBC AND AUTO DIFFon 05-28-20 24 ABSOLUTE BASOPHIL 0.0 X10E9/L Normal 0.0-0.2 [facility] Comment on above: Performed By: #### C BCA, CMP, 1833-07, , FEPR, 6-4, 2283-8, 2132-03, TSHR #### [facility] ([id number]) [address] [place] [address] ABSOLUTE NEUTROPHIL 8.2 X10E9/L High 1.5-6.[address] [facility] Comment on above: Performed By: #### C BCA, CMP, 1833-, , FEPR, 6-4, 2283-8, 2132-03, TSHR #### [facility] ([id number]) [address] [place] [address] Basophils/100 WBC (Bld) 0.2 % Normal P [facility] Comment on above: Performed By: #### C BCA, CMP, 1833-, 89585-9, FEPR, 2276-4, 2284-8, 9, TSHR #### [facility] ([id number]) [address] [place] [address] Eosinophils (Bld) [#/Vol] 0.0 10*3/uL Normal 0.0-0.4 [facility] Comment on above: Performed By: #### C BCA, CMP, 1833-, 15721-8, FEPR, 2276-4, 2284-8, 2132-03, TSHR #### [facility] ([id number]) [address] [place] [address] Eosinophils/100 WBC (Bld) 0.2 % Normal [facility] Comment on above: Performed By: #### C BCA, CMP, 1833-07, , FEPR, 6-4, 2283-8, 2132-03, TSHR #### [facility] ([id number]) [address] [address] [place] [address] Erythrocyte distribution width (RBC) [Ratio] 14.9 % Normal 11.5-15.0 [facility] Comment on above: Performed By: #### C BCA, CMP, 1833-07, , FEPR, 6-4, 2283-8, 2132-03, TSHR #### [facility] ([id number]) [address] [facility] [address] [place] [address] Hematocrit (Bld) [Volume fraction] 21.1 % Low 39-49 [facility] Comment on above: Performed By: #### C BCA, CMP, 1833-07, , FEPR, 2276-4, 228-8, 2132-03, TSHR #### [facility] ([id number]) [address] [address] [place] [address] Hemoglobin (Bld) [Mass/Vol] 7.6 g/dL Low 13.0-17.0 [facility] Comment on above: Performed By: #### C BCA, CMP, 1833-, 48650-0, FEPR, 2276-4, 2284-8, 2132-03, TSHR #### [facility] ([id number]) [address] [place] [address] Lymphocytes (Bld) [#/Vol] 0.3 10*3/uL Low 1.0-3.5 [facility] Comment on above: Performed By: #### C BCA, CMP, 1833-07, , FEPR, 2275-4, 8, 2132-03, TSHR #### [facility] ([id number]) [address] [place] [address] Lymphocytes/100 WBC (Bld) 3.1 % Normal [facility] Comment on above: Performed By: #### C BCA, CMP, 1833-07, , FEPR, 2275-4, 2284-02, 2132-03, TSHR #### [facility] ([id number]) [address] [place] [address] MCH (RBC) [Entitic mass] 32.5 pg Normal 27-34 [facility] Comment on above: Performed By: #### C BCA, CMP, 1833-07, , FEPR, 2275-, 2284-02, 2132-03, TSHR #### [facility] ([id number]) [address] [place] [address] MCHC (RBC) [Mass/Vol] 36.0 g/dL Normal 32-36 [facility] Comment on above: Performed By: #### C BCA, CMP, 1833-07, , FEPR, 2275-4, 2283-8, 2132-03, TSHR #### [facility] ([id number]) [address] [place] [address] MCV (RBC) [Entitic vol] 90 fL Normal 80-100 P [facility] Comment on above: Performed By: #### C BCA, CMP, 1833-07, 56058-7, FEPR, 2276-4, 2284-8, 2131-9, TSHR #### [facility] ([id number]) [address] [place] [address] Monocytes (Bld) [#/Vol] 1.1 10*3/uL High 0-0.9 [facility] Comment on above: Performed By: #### C BCA, CMP, 1833-, 64178-6, FEPR, 2276-4, 2284-8, 2131-9, TSHR #### [facility] ([id number]) [address] [place] [address] Monocytes/100 WBC (Bld) 11.8 % Normal [facility] Comment on above: Performed By: #### C BCA, CMP, 1833-, 60116-5, FEPR, 2276-4, 2284-8, 2132-03, TSHR #### [facility] ([id number]) [address] [place] [address] Neutrophils/100 WBC (Bld) 84.7 % Normal [facility] Comment on above: Performed By: #### C BCA, CMP, 1833-, 37584-9, FEPR, 2276-4, 2284-8, 2131-9, TSHR #### [facility] ([id number]) [address] [place] [address] Platelet mean volume (Bld) [Entitic vol] 7.6 fL Normal 7-12 [facility] Comment on above: Performed By: #### C BCA, CMP, 1833-, 76357-0, FEPR, 2276-4, 2284-8, 2131-9, TSHR #### [facility] ([id number]) [address] [place] [address] Platelets (Bld) [#/Vol] 206 10*3/uL Normal 150-450 [facility] Comment on above: Performed By: #### C BCA, CMP, 4-1, 72681-7, FEPR, 2276-4, 2284-8, 2131-9, TSHR #### [facility] ([id number]) [address] [place] [address] RBC COUNT 2.34 X10E12/L Low 4.10-5.70 [facility] Comment on above: Performed By: #### C BCA, CMP, 1833-, 03054-8, FEPR, 2276-4, 2284-8, 2132-03, TSHR #### [facility] ([id number]) [address] [place] [address] WBC (Bld) [#/Vol] 9.7 10*3/uL Normal 4.0-11.0 [facility] Comment on above: Performed By: #### C BCA, CMP, 1833-, 79594-6, FEPR, 2276-4, 4-8, 2132-03, TSHR #### [facility] ([id number]) [address] [place] [address] COMPREHENSIVE METABOLIC PANE [facility] 05-28-2024 Albumin [Mass/Vol] 2.8 g/dL Low 3.2-5.3 [facility] Comment on above: Performed By: #### C BCA, CMP, 1833-, 67647-9, FEPR, 2276-4, 2284-8, 2132-03, TSHR #### [facility] ([id number]) [address], [address] [place] [address] ALP [Catalytic activity/Vol] 210 U/L High 39-130 [facility] Comment on above: Performed By: #### C BCA, CMP, 1833-, 34456-4, FEPR, 2276-4, 2284-8, 2131-9, TSHR #### [facility] ([id number]) [address], [address] [place] [address] ALT [Catalytic activity/Vol] 131 U/L High 0-40 [facility] Comment on above: Performed By: #### C BCA, CMP, 1834-1, 39767-7, FEPR, 2276-4, 2284-8, 2131-9, TSHR #### [facility] ([id number]) [address] [place] [address] Anion gap [Moles/Vol] 12 mmol/L Normal 5-15 [facility] Comment on above: Performed By: #### C BCA, CMP, 1833-, 30099-6, FEPR, 2276-4, 2284-8, 2131-9, TSHR #### [facility] ([id number]) [address], [address] [place] [address] AST [Catalytic activity/Vol] 211 U/L High 0-41 [facility] Comment on above: Performed By: #### C BCA, CMP, 1833-, 47205-2, FEPR, 2276-4, 2284-8, 9, TSHR #### [facility] ([id number]) [address] [place] [address] Bilirubin [Mass/Vol] 2.0 mg/dL High 0.3-1.[address] [facility] Comment on above: Performed By: #### C BCA, CMP, 1833-, 65123-6, FEPR, 2276-4, 2284-8, 2131-9, TSHR #### [facility] ([id number]) [address] [place] [address] Calcium [Mass/Vol] 9.0 mg/dL Normal 8.5-10.5 [facility] Comment on above: Performed By: #### C BCA, CMP, 1833-, 73634-7, FEPR, 2276-4, 2284-8, 9, TSHR #### [facility] ([id number]) [address] [place] [address] Chloride [Moles/Vol] 93 mmol/L Low 98-[address] [facility] Comment on above: Performed By: #### C BCA, CMP, 4-1, 61043-6, FEPR, 2276-4, 2284-8, 2132-03, TSHR #### [facility] ([id number]) [address] [place] [address] CO2 [Moles/Vol] 21 mmol/L Low 22-32 [facility] Comment on above: Performed By: #### C BCA, CMP, 1833-, 99020-7, FEPR, 6-4, 2283-8, 2132-03, TSHR #### [facility] ([id number]) [address] [place] [address] Creatinine [Mass/Vol] 1.81 mg/dL High 0.60-1.30 [facility] Comment on above: Result Comment: METH OD TRACEABLE TO IDMS STANDARD Performed By: #### C BCA, CMP, 1833-, 92236-2, FEPR, 6-4, 2283-8, 2132-03, TSHR #### [facility] ([id number]) [address] [place] [address] GFR/1.73 sq M.predicted among non-blacks MDRD (S/P/Bld) [Vol rate/Area] 37 mL/min/{1.73_m2} Low >59 [facility] Comment on above: Result Comment: Reported eGFR is based on the CKD-EPI 2020 equation that does not use a race coefficient. Performed By: #### C BCA, CMP, 1833-, 80971-8, FEPR, 2276-4, 2284-8, 9, TSHR #### [facility] ([id number]) [address], [address] [place] [address] Glucose [Mass/Vol] 127 mg/dL High 65-99 [facility] Comment on above: Performed By: #### C BCA, CMP, 1833-, 85251-0, FEPR, 2276-4, 2284-8, 2132-03, TSHR #### [facility] ([id number]) [address], [address] [place] [address] Potassium [Moles/Vol] 3.9 mmol/L Normal 3.5-5.0 [facility] Comment on above: Performed By: #### C BCA, CMP, 1833-, , FEPR, 2276-4, 2283-8, 2132-03, TSHR #### [facility] ([id number]) [address], [address] [place] [address] Protein [Mass/Vol] 5.8 g/dL Low 6.0-8.0 [facility] Comment on above: Performed By: #### C BCA, CMP, 1833-07, , FEPR, 2276-4, 2283-8, 2132-03, TSHR #### [facility] ([id number]) [address], [address] [place] [address] Sodium [Moles/Vol] 126 mmol/L Low 134-146 [facility] Comment on above: Performed By: #### C BCA, CMP, 1833-, , FEPR, 2276-4, 2284-8, 2132-03, TSHR #### [facility] ([id number]) [address] [place] [address] Urea nitrogen [Mass/Vol] 44 mg/dL High 5-27 [facility] Comment on above: Performed By: #### C BCA, CMP, 1833-, 98900-2, FEPR, 2276-4, 2284-8, 2132-03, TSHR #### [facility] ([id number]) [address], [address] [place] [address] FL SWALLOW MOTILITY FUNCTION on 05-28-2024 FL [...] Santiago MD on 05/28/2024 4:35 PM Normal [facility] HGB AND HCTon 05-28-2024 Hematocrit (Bld) [Volume fraction] 22.3 % Low 39-49 [facility] Comment on above: Performed By: #### C BCA, CMP, 1833-, 70694-6, FEPR, 2275-4, 2284-02, 2132-03, TSHR #### [facility] ([id number]) [address], [address] [place] [address] Hemoglobin (Bld) [Mass/Vol] 7.7 g/dL Low 13.0-17.0 [facility] Comment on above: Performed By: #### C BCA, CMP, 1833-, 03815-4, FEPR, 2275-4, 2284-02, 2132-03, TSHR #### [facility] ([id number]) [address], [address] [place] [address] MAGNESIUMon 05-28-2024 Magnesium [Mass/Vol] 1.7 mg/dL Low 1.8-2.[address] [facility] Comment on above: Performed By: #### C JIN, CMP, 1833-, , FEPR, 6-4, 2283-8, 2132-03, TSHR #### [facility] ([id number]) [address] [place] [address] Osmolality [Osmolality]on OSMOLALITY 273 mOsm/kg H2 Low 280-300 [facility] Comment on above: Performed By: #### C BCA, CMP, 1833-07, , FEPR, 6-4, 2283-8, 2132-03, TSHR #### [facility] ([id number]) [address] [place] [address] PROTIME AND INRon 05-28-2024 INR Coag (PPP) [Relative time] 1.3 {INR} High 0.8-1.1 [facility] Comment on above: Performed By: #### C JIN, [facility], 1833-07, , FEPR, 2275-4, 2284-02, 2132-03, TSHR #### [facility] ([id number]) [address], [address] [place] [address] PT Coag (PPP) [Time] 14.8 s High 9.8-13.[address] [facility] Comment on above: Performed By: #### C BCA, CMP, 1833-07, , FEPR, 2275-4, 8, 2132-03, TSHR #### [facility] ([id number]) [address] [place] [address] SODIUMon 05-28-2024 Sodium [Moles/Vol] 127 mmol/L Low 134-146 [facility] Comment on above: Performed By: #### C BCA, CMP, 1833-07, , FEPR, 6-4, 2283-8, 2132-03, TSHR #### [facility] ([id number]) [address] [place] [address] Sodium [Moles/Vol] 126 mmol/L Low 134-146 [facility] Comment on above: Performed By: #### C BCA, CMP, 4-1, 67688-9, FEPR, 2276-4, 2284-8, 9, TSHR #### [facility] ([id number]) [address], [address] [place] [address] Sodium [Moles/Vol] 127 mmol/L Low 134-146 [facility] Comment on above: Performed By: #### C BCA, CMP, 4-, 82923-2, FEPR, 2276-4, 2284-8, 9, TSHR #### [facility] ([id number]) [address] [place] [address] Sodium [Moles/Vol] 124 mmol/L Low 134-146 [facility] Comment on above: Performed By: #### C BCA, CMP, 1833-, , FEPR, 2276-4, 2283-8, 2132-03, TSHR #### [facility] ([id number]) [address] [place] [address] Zinc [Mass/Vol]on 05-28-2024 Zinc, S 45 mcg/dL Low 60-106 [facility] Comment on above: Result Comment: NOTE ADDITIONAL INFORMATION This test was developed and its performance characteristics determined by [facility] in a manner consistent with CLIA requirements. This test has not been cleared or approved by the U.S. Food and Drug Administration. Test Performed by: [facility] [address] [place], [place] [id number] Load Checker: Terri Barahona Ph.D.; CLIA# [id number] CBC AND AUTO DIFFon 05-27-20 ABSOLUTE BASOPHIL 0.0 X10E9/L Normal 0.0-0.2 [facility] Comment on above: Performed By: #### C BCA, CMP, 1833-, 82589-8, FEPR, 2276-4, 2284-8, 2131-9, TSHR #### [facility] ([id number]) [address], [address] [place] [address] ABSOLUTE NEUTROPHIL 8.7 X10E9/L High 1.5-6.[address] [facility] Comment on above: Performed By: #### C BCA, CMP, 1833-07, , FEPR, 2276-4, 2283-8, 2132-03, TSHR #### [facility] ([id number]) [address], [address] [place] [address] Basophils/100 WBC (Bld) 0.1 % Normal [facility] Comment on above: Performed By: #### C BCA, CMP, 1833-07, , FEPR, 2276-4, 2283-8, 2132-03, TSHR #### [facility] ([id number]) [address] [place] [address] Eosinophils (Bld) [#/Vol] 0.0 10*3/uL Normal 0.0-0.4 [facility] Comment on above: Performed By: #### C BCA, CMP, 1833-07, , FEPR, 2276-4, 2284-8, 9, TSHR #### [facility] ([id number]) [address], [address] [place] [address] Eosinophils/100 WBC (Bld) 0.1 % Normal [facility] Comment on above: Performed By: #### C BCA, CMP, 1833-, 40854-1, FEPR, 2276-4, 2284-8, 2132-9, TSHR #### [facility] ([id number]) [address], [address] [place] [address] Erythrocyte distribution width (RBC) [Ratio] 14.7 % Normal 11.5-15.0 [facility] Comment on above: Performed By: #### C BCA, CMP, 1833-, 14572-7, FEPR, 6-4, 2283-8, 2132-03, TSHR #### [facility] ([id number]) [address], [address] [place] [address] Hematocrit (Bld) [Volume fraction] 17.4 % Low 39-49 [facility] Comment on above: Performed By: #### C BCA, CMP, 1833-, , FEPR, 2275-4, 8, 2132-03, TSHR #### [facility] ([id number]) [address] [place] [address] Hemoglobin (Bld) [Mass/Vol] 6.1 g/dL Critically low 13.0-17.0 [facility] Comment on above: Performed By: #### C BCA, CMP, 1833-07, , FEPR, 6-4, 2283-8, 2132-03, TSHR #### [facility] ([id number]) [address] [place] [address] Lymphocytes (Bld) [#/Vol] 0.3 10*3/uL Low 1.0-3.5 [facility] Comment on above: Performed By: #### C BCA, CMP, 1833-, , FEPR, 6-4, 2283-8, 2132-03, TSHR #### [facility] ([id number]) [address] [place] [address] Lymphocytes/100 WBC (Bld) 3.2 % Normal [facility] Comment on above: Performed By: #### C BCA, CMP, 1833-, , FEPR, 2276-4, 2283-8, 2132-03, TSHR #### [facility] ([id number]) [address] [place] [address] MCH (RBC) [Entitic mass] 31.6 pg Normal 27-34 [facility] Comment on above: Performed By: #### C BCA, CMP, 1833-, , FEPR, 2276-4, 2283-8, 2132-03, TSHR #### [facility] ([id number]) [address] [address] [place] [address] MCHC (RBC) [Mass/Vol] 35.3 g/dL Normal 32-36 [facility] Comment on above: Performed By: #### C BCA, CMP, 1833-07, , FEPR, 6-4, 2283-8, 2132-03, TSHR #### [facility] ([id number]) [address] [place] [address] MCV (RBC) [Entitic vol] 90 fL Normal 80-100 P [facility] Comment on above: Performed By: #### C BCA, CMP, 1833-07, , FEPR, 6-4, 2283-8, 2132-03, TSHR #### [facility] ([id number]) [address], [facility] [address] [place] [address] Monocytes (Bld) [#/Vol] 1.3 10*3/uL High 0-0.9 [facility] Comment on above: Performed By: #### C BCA, CMP, 1833-, , FEPR, 2276-4, 4-8, 2131-9, TSHR #### [facility] ([id number]) [address], [address] [place] [address] Monocytes/100 WBC (Bld) 12.2 % Normal [facility] Comment on above: Performed By: #### C BCA, CMP, 4-1, 93131-1, FEPR, 2276-4, 2284-8, 2131-9, TSHR #### [facility] ([id number]) [address] [place] [address] Neutrophils/100 WBC (Bld) 84.4 % Normal [facility] Comment on above: Performed By: #### C BCA, CMP, 1833-, 15029-0, FEPR, 2276-4, 2284-8, 2131-9, TSHR #### [facility] ([id number]) [address] [place] [address] Platelet mean volume (Bld) [Entitic vol] 8.1 fL Normal 7-12 [facility] Comment on above: Performed By: #### C BCA, CMP, 1833-, 87563-1, FEPR, 2276-4, 2284-8, 2131-9, TSHR #### [facility] ([id number]) [address], [facility] [address] [place] [address] Platelets (Bld) [#/Vol] 211 10*3/uL Normal 150-450 [facility] Comment on above: Performed By: #### C BCA, CMP, 1833-, 73861-4, FEPR, 2276-4, 2284-8, 2131-9, TSHR #### [facility] ([id number]) [address] [place] [address] RBC COUNT 1.94 X10E12/L Low 4.10-5.70 [facility] Comment on above: Performed By: #### C BCA, CMP, 1833-, 28764-0, FEPR, 2276-4, 2284-8, 2131-9, TSHR #### [facility] ([id number]) [address] [place] [address] WBC (Bld) [#/Vol] 10.4 10*3/uL Normal 4.0-11.0 [facility] Comment on above: Performed By: #### C BCA, CMP, 1834-1, 49459-1, FEPR, 2276-4, 2284-8, 2131-9, TSHR #### [facility] ([id number]) [address] [place] [address] COMPREHENSIVE METABOLIC PANE Zoran 05-27-2024 Albumin [Mass/Vol] 2.7 g/dL Low 3.2-5.3 [facility] Comment on above: Performed By: #### C BCA, CMP, 1833-, 18986-6, FEPR, 2276-4, 2284-8, 2132-03, TSHR #### [facility] ([id number]) [address] [place] [address] ALP [Catalytic activity/Vol] 194 U/L High 39-130 [facility] Comment on above: Performed By: #### C BCA, CMP, 1833-, , FEPR, 2276-4, 2284-8, 2132-03, TSHR #### [facility] ([id number]) [address] [place] [address] ALT [Catalytic activity/Vol] 68 U/L High 0-40 [facility] Comment on above: Performed By: #### C BCA, CMP, 1834-1, 40014-0, FEPR, 2276-4, 2284-8, 2132-03, TSHR #### [facility] ([id number]) [address] [place] [address] Anion gap [Moles/Vol] 12 mmol/L Normal 5-15 [facility] Comment on above: Performed By: #### C BCA, CMP, 1833-, 83020-3, FEPR, 2276-4, 2284-8, 9, TSHR #### [facility] ([id number]) [address] [place] [address] AST [Catalytic activity/Vol] 130 U/L High 0-41 [facility] Comment on above: Performed By: #### C BCA, CMP, 1833-, , FEPR, 2276-4, 2284-8, 9, TSHR #### [facility] ([id number]) [address] [place] [address] Bilirubin [Mass/Vol] 1.1 mg/dL Normal 0.3-1.[address] [facility] Comment on above: Performed By: #### C BCA, CMP, 1833-07, , FEPR, 6-4, 2283-8, 2132-03, TSHR #### [facility] ([id number]) [address] [place] [address] Calcium [Mass/Vol] 8.5 mg/dL Normal 8.5-10.5 [facility] Comment on above: Performed By: #### C BCA, CMP, 1833-07, , FEPR, 6-4, 2283-8, 2132-03, TSHR #### [facility] ([id number]) [address] [place] [address] Chloride [Moles/Vol] 96 mmol/L Low 98-[address] [facility] Comment on above: Performed By: #### C BCA, CMP, 1833-, , FEPR, 2276-4, 2284-8, 9, TSHR #### [facility] ([id number]) [address] [place] [address] CO2 [Moles/Vol] 16 mmol/L Low 22-32 [facility] Comment on above: Performed By: #### C BCA, CMP, 1833-07, , FEPR, 2276-4, 2283-8, 2132-03, TSHR #### [facility] ([id number]) [address] [place] [address] Creatinine [Mass/Vol] 2.07 mg/dL High 0.60-1.30 [facility] Comment on above: Result Comment: METH OD TRACEABLE TO IDMS STANDARD Performed By: #### C BCA, CMP, 1833-07, , FEPR, 6-4, 2283-8, 2132-03, TSHR #### [facility] ([id number]) [address] [place] [address] GFR/1.73 sq M.predicted among non-blacks MDRD (S/P/Bld) [Vol rate/Area] 31 mL/min/{1.73_m2} Low >59 [facility] Comment on above: Result Comment: Reported eGFR is based on the CKD-EPI 2020 equation that does not use a race coefficient. Performed By: #### C BCA, CMP, 1833-07, , FEPR, 6-4, 8, 2132-03, TSHR #### [facility] ([id number]) [address] [place] [address] Glucose [Mass/Vol] 128 mg/dL High 65-99 [facility] Comment on above: Performed By: #### C BCA, CMP, 1833-07, , FEPR, 2276-4, 228-8, 2132-03, TSHR #### [facility] ([id number]) [address] [place] [address] Potassium [Moles/Vol] 4.6 mmol/L Normal 3.5-5.0 [facility] Comment on above: Performed By: #### C BCA, CMP, 1833-07, 87009-6, FEPR, 2276-4, 2284-8, 2131-9, TSHR #### [facility] ([id number]) [address] [place] [address] Protein [Mass/Vol] 5.4 g/dL Low 6.0-8.0 [facility] Comment on above: Performed By: #### C BCA, CMP, 4-1, 83482-0, FEPR, 2276-4, 2284-8, 2131-9, TSHR #### [facility] ([id number]) [address] [place] [address] Sodium [Moles/Vol] 124 mmol/L Low 134-146 [facility] Comment on above: Performed By: #### C BCA, CMP, 1833-, 28864-4, FEPR, 2276-4, 2284-8, 9, TSHR #### [facility] ([id number]) [address] [place] [address] Urea nitrogen [Mass/Vol] 48 mg/dL High 5-27 [facility] Comment on above: Performed By: #### C BCA, CMP, 1833-, 89430-3, FEPR, 2276-4, 2284-8, 2131-9, TSHR #### [facility] ([id number]) [address] [place] [address] Cancer Ag 19-9 Qnon 05-27-20 24 CA 19 9 6.6 U/mL Normal 0.0-35.0 [facility] Comment on above: Result Comment: The method used for this test is Janae Zaire DXI chemiluminescent immunoassay. Values obtained by different assay methods cannot be used interchangeably. Performed By: #### C BCA, CMP, 1834-1, 06314-8, FEPR, 2276-4, 2284-8, 2-9, TSHR #### [facility] ([id number]) [address] [place] [address], [facility] [address] [place] [address] Carcinoembryonic Ag [Mass/Vo l]on 05-27-2024 CEA 2.4 ng/mL Normal 0.0-3.0 [facility] Comment on above: Result Comment: 0.0-3.0 ng/mL FOR NON SMOKERS 0.0-5.0 ng/mL FOR SMOKERS The method used for this test is Janae Welsh DXI chemiluminescent immunoassay. Values obtained by different assay methods cannot be used interchangeably. Performed By: #### C SAURABH ABDI, 1833-07, , FEPR, 6-4, 2283-8, 2132-03, TSHR #### [facility] ([id number]) [address] [place] [address] Cortisol [Mass/Vol]on 2023 CORTISOL 23.9 ug/dL Normal [facility] Comment on above: Result Comment: Due to the diurnal variation of cortisol levels in normal subjects, all cortisol measurements should be referenced to the time of day of sample collection. AM Cortisol Age>=6 6.7-22.4 ug/dL PM Cortisol Age>=6 <10 ug/dL Performed By: #### C JIN, SAURABH, 1833-07, , FEPR, 2276-4, 8, 2132-03, TSHR #### [facility] ([id number]) [facility] [address] [address] HGB AND HCTon 05-27-2024 Hematocrit (Bld) [Volume fraction] 22.4 % Low 39-49 [facility] Comment on above: Performed By: #### C BCA, CMP, 1833-07, 84691-1, FEPR, 2276-4, 2284-8, 2131-9, TSHR #### [facility] ([id number]) [address] [place] [address] Hemoglobin (Bld) [Mass/Vol] 7.8 g/dL Low 13.0-17.0 [facility] Comment on above: Performed By: #### C BCA, CMP, 1833-, 24187-2, FEPR, 2276-4, 2284-8, 9, TSHR #### [facility] ([id number]) [address] [place] [address] Hematocrit (Bld) [Volume fraction] 21.7 % Low 39-49 [facility] Comment on above: Performed By: #### C BCA, CMP, 1833-07, , FEPR, 2276-4, 2284-8, 2132-03, TSHR #### [facility] ([id number]) [address] [place] [address] Hemoglobin (Bld) [Mass/Vol] 7.5 g/dL Low 13.0-17.0 [facility] Comment on above: Performed By: #### C BCA, CMP, 1833-, 51914-1, FEPR, 2276-4, 2284-8, 2132-03, TSHR #### [facility] ([id number]) [address] [place] [address] MAGNESIUMon 05-27-2024 Magnesium [Mass/Vol] 2.0 mg/dL Normal 1.8-2.[address] [facility] Comment on above: Performed By: #### C BCA, CMP, 1833-, 07038-7, FEPR, 2276-4, 2284-8, 2-9, TSHR #### [facility] ([id number]) [address] [place] [address] PROTIME AND INRon 05-27-2024 INR Coag (PPP) [Relative time] 1.5 {INR} High 0.8-1.1 [facility] Comment on above: Performed By: #### C BCA, CMP, 1833-, 82425-5, FEPR, 6-4, 2283-8, 2132-03, TSHR #### [facility] ([id number]) [address] [place] [address] PT Coag (PPP) [Time] 16.9 s High 9.8-13.[address] [facility] Comment on above: Performed By: #### C BCA, CMP, 1833-07, , FEPR, 2275-4, 8, 2132-03, TSHR #### [facility] ([id number]) [address] [place] [address] Parathyrin.intact [Mass/Vol] on 05-27-2024 PTH INTACT 26 pg/mL Normal 12-88 [facility] Comment on above: Performed By: #### C BCA, CMP, 1833-07, , FEPR, 2275-4, 8, 2132-03, TSHR #### [facility] ([id number]) [address] [place] [address] SODIUMon 05-27-2024 Sodium [Moles/Vol] 126 mmol/L Low 134-146 [facility] Comment on above: Performed By: #### C BCA, CMP, 1833-07, , FEPR, 2275-4, 2283-8, 2132-03, TSHR #### [facility] ([id number]) [address] [place] [address] Sodium [Moles/Vol] 124 mmol/L Low 134-146 [facility] Comment on above: Performed By: #### C BCA, CMP, 1833-07, 07381-3, FEPR, 2276-4, 2284-8, 2131-9, TSHR #### [facility] ([id number]) [address], [address] [place] [address] Sodium [Moles/Vol] 126 mmol/L Low 134-146 [facility] Comment on above: Performed By: #### C BCA, CMP, 1833-, 50196-2, FEPR, 2276-4, 2284-8, 9, TSHR #### [facility] ([id number]) [address], [address] [place] [address] Sodium [Moles/Vol] 125 mmol/L Low 134-146 [facility] Comment on above: Performed By: #### C BCA, CMP, 1833-07, , FEPR, 6-4, 2283-8, 2132-03, TSHR #### [facility] ([id number]) [address], [address] [place] [address] Sodium [Moles/Vol] 124 mmol/L Low 134-146 [facility] Comment on above: Performed By: #### C BCA, CMP, 1833-07, , FEPR, 2276-4, 4-8, 9, TSHR #### [facility] ([id number]) [address], [address] [place] [address] URINE CULTUREon 05-27-2024 Bacteria identified Cx Nom (U) CULTURE RESULTS 10-50,000 ORGANISMS/mL NORMAL UROGENITAL RUBY Normal [facility] Comment on above: Performed By: #### C BCA, CMP, 1833-, 75755-6, FEPR, 2276-4, 4-8, 9, TSHR #### [facility] ([id number]) [address], [address] [place] [address] AFP [Mass/Vol]on 05-26-2024 ALPHA FETOPROTEIN 184.2 ng/mL High 0-9.9 [facility] Comment on above: Performed By: #### C BCA, CMP, 1834-1, 62656-8, FEPR, 2276-4, 2284-8, 2131-9, TSHR #### [facility] ([id number]) [address], [address] [place] [address] CBC AND AUTO DIFFon 10-30-20 24 Band form neutrophils/100 WBC (Bld) 3.0 % Normal [facility] Comment on above: Performed By: #### C BCA, CMP, 1833-, 45827-1, FEPR, 2276-4, 2284-8, 2131-9, TSHR #### [facility] ([id number]) [address], [address] [place] [address] ARIANNA 1+ Abnormal NONE [facility] Comment on above: Performed By: #### C BCA, CMP, 1833-, 33489-6, FEPR, 2276-4, 2284-8, 2131-9, TSHR #### [facility] ([id number]) [address], [address] [place] [address] Erythrocyte distribution width (RBC) [Ratio] 14.7 % Normal 11.5-15.0 [facility] Comment on above: Performed By: #### C BCA, CMP, 1833-, 07457-0, FEPR, 2276-4, 2284-8, 2131-9, TSHR #### [facility] ([id number]) [address], [address] [place] [address] FRAGMENT 1+ Abnormal NONE [facility] Comment on above: Performed By: #### C BCA, CMP, 1834-1, 16666-5, FEPR, 2276-4, 2284-8, 2132-9, TSHR #### [facility] ([id number]) [address], [address] [place] [address] Hematocrit (Bld) [Volume fraction] 20.9 % Low 39-49 [facility] Comment on above: Performed By: #### C BCA, CMP, 1833-07, , FEPR, 2276-4, 2283-8, 2132-03, TSHR #### [facility] ([id number]) [address], [facility] [address] [place] [address] Hemoglobin (Bld) [Mass/Vol] 7.1 g/dL Low 13.0-17.0 [facility] Comment on above: Performed By: #### C BCA, CMP, 1833-07, , FEPR, 6-4, 2283-8, 2132-03, TSHR #### [facility] ([id number]) [address] [address] Lymphocytes (Bld) [#/Vol] 1.0 10*3/uL Normal 1.0-3.5 [facility] Comment on above: Performed By: #### C BCA, CMP, 1833-07, , FEPR, 6-4, 2283-8, 2132-03, TSHR #### [facility] ([id number]) [address], [address] [address] Lymphocytes/100 WBC (Bld) 7.0 % Normal [facility] Comment on above: Performed By: #### C BCA, CMP, 1833-07, , FEPR, 6-4, 2283-8, 2132-03, TSHR #### [facility] ([id number]) [address] [address] [place] [address] MCH (RBC) [Entitic mass] 30.8 pg Normal 27-34 [facility] Comment on above: Performed By: #### C BCA, CMP, 1833-07, , FEPR, 2276-4, 2283-8, 2132-03, TSHR #### [facility] ([id number]) [address], [address] [place] [address] MCHC (RBC) [Mass/Vol] 34.1 g/dL Normal 32-36 [facility] Comment on above: Performed By: #### C BCA, CMP, 1833-, 85035-1, FEPR, 2276-4, 2283-8, 2132-03, TSHR #### [facility] ([id number]) [address], [address] [place] [address] MCV (RBC) [Entitic vol] 90 fL Normal 80-100 P [facility] Comment on above: Performed By: #### C BCA, CMP, 1833-, , FEPR, 6-4, 2283-8, 2132-03, TSHR #### [facility] ([id number]) [address], [address] [place] [address] Monocytes (Bld) [#/Vol] 1.9 10*3/uL High 0-0.9 [facility] Comment on above: Performed By: #### C BCA, CMP, 1833-, , FEPR, 6-4, 2283-8, 2132-03, TSHR #### [facility] ([id number]) [address], [address] [place] [address] Monocytes/100 WBC (Bld) 13.0 % Normal P [facility] Comment on above: Performed By: #### C BCA, CMP, 1833-, , FEPR, 6-4, 2283-8, 2132-03, TSHR #### [facility] ([id number]) [address], [address] [place] [address] Neutrophils (Bld) [#/Vol] 11.9 10*3/uL High 1.5-6.6 [facility] Comment on above: Performed By: #### C BCA, CMP, 1833-, 62583-7, FEPR, 2276-4, 2284-8, 2131-9, TSHR #### [facility] ([id number]) [address], [address] [place] [address] OVALOCYTE 1+ Abnormal NONE [facility] Comment on above: Performed By: #### C BCA, CMP, 1833-, 52778-9, FEPR, 2276-4, 2283-8, 9, TSHR #### [facility] ([id number]) [address], [address] [place] [address] Platelet mean volume (Bld) [Entitic vol] 7.9 fL Normal 7-12 [facility] Comment on above: Performed By: #### C BCA, CMP, 1833-, 38735-7, FEPR, 6-4, 2283-8, 2132-03, TSHR #### [facility] ([id number]) [address], [address] [place] [address] Platelets (Bld) [#/Vol] 328 10*3/uL Normal 150-450 [facility] Comment on above: Performed By: #### C BCA, CMP, 1833-, 10452-8, FEPR, 2276-4, 2283-8, 2132-03, TSHR #### [facility] ([id number]) [address], [address] [place] [address] POLYCHROMASIA 1+ Abnormal NONE [facility] Comment on above: Performed By: #### C BCA, CMP, 1833-, 66926-8, FEPR, 2276-4, 2283-8, 2132-03, TSHR #### [facility] ([id number]) [address], [address] [place] [address] RBC COUNT 2.32 X10E12/L Low 4.10-5.70 [facility] Comment on above: Performed By: #### C BCA, CMP, 1833-, , FEPR, 6-4, 2283-8, 2132-03, TSHR #### [facility] ([id number]) [address], [address] [place] [address] SEG NEUTROPHIL 77.0 % Normal [facility] Comment on above: Performed By: #### C BCA, CMP, 1833-07, , FEPR, 2275-4, 2283-8, 2132-03, TSHR #### [facility] ([id number]) [address], [address] [place] [address] WBC (Bld) [#/Vol] 14.8 10*3/uL High 4.0-11.0 [facility] Comment on above: Performed By: #### C BCA, CMP, 1833-07, , FEPR, 2275-4, 2284-02, 2132-03, TSHR #### [facility] ([id number]) [address], [address] [place] [address] ABSOLUTE BASOPHIL 0.0 X10E9/L Normal 0.0-0.2 [facility] Comment on above: Performed By: #### C BCA, CMP, 1833-07, , FEPR, 2275-4, 2284-02, 2132-03, TSHR #### [facility] ([id number]) [address], [address] [place] [address] ABSOLUTE NEUTROPHIL 10.1 X10E9/L High 1.5-6.6 [facility] Comment on above: Performed By: #### C BCA, CMP, 1833-, , FEPR, 6-4, 8, 2132-03, TSHR #### [facility] ([id number]) [address], [address] [place] [address] Basophils/100 WBC (Bld) 0.2 % Normal P [facility] Comment on above: Performed By: #### C BCA, CMP, 1833-, 93354-6, FEPR, 2276-4, 2284-8, 2132-03, TSHR #### [facility] ([id number]) [address], [address] [place] [address] Eosinophils (Bld) [#/Vol] 0.0 10*3/uL Normal 0.0-0.4 [facility] Comment on above: Performed By: #### C BCA, CMP, 1833-, , FEPR, 2276-4, 2284-8, 2132-03, TSHR #### [facility] ([id number]) [address], [address] [place] [address] Eosinophils/100 WBC (Bld) 0.0 % Normal [facility] Comment on above: Performed By: #### C BCA, CMP, 1833-07, , FEPR, 2276-4, 228-8, 2132-03, TSHR #### [facility] ([id number]) [address], [address] [place] [address] Erythrocyte distribution width (RBC) [Ratio] 14.5 % Normal 11.5-15.0 [facility] Comment on above: Performed By: #### C BCA, CMP, 1833-07, , FEPR, 2276-4, 2284-8, 2132-03, TSHR #### [facility] ([id number]) [address], [address] [place] [address] Hematocrit (Bld) [Volume fraction] 22.9 % Low 39-49 [facility] Comment on above: Performed By: #### C BCA, CMP, 1833-, 16691-4, FEPR, 2276-4, 2284-8, 9, TSHR #### [facility] ([id number]) [address], [address] [place] [address] Hemoglobin (Bld) [Mass/Vol] 7.7 g/dL Low 13.0-17.0 [facility] Comment on above: Performed By: #### C BCA, CMP, 1833-, 69903-5, FEPR, 2276-4, 2284-8, 2131-9, TSHR #### [facility] ([id number]) [address], [address] [place] [address] Lymphocytes (Bld) [#/Vol] 0.4 10*3/uL Low 1.0-3.5 [facility] Comment on above: Performed By: #### C BCA, CMP, 1833-, , FEPR, 2276-4, 4-8, 2132-03, TSHR #### [facility] ([id number]) [address], [address] [place] [address] Lymphocytes/100 WBC (Bld) 3.3 % Normal [facility] Comment on above: Performed By: #### C BCA, CMP, 1833-07, , FEPR, 2276-4, 2283-8, 2132-03, TSHR #### [facility] ([id number]) [address], [address] [place] [address] MCH (RBC) [Entitic mass] 30.4 pg Normal 27-34 [facility] Comment on above: Performed By: #### C BCA, CMP, 1833-, 72508-8, FEPR, 2276-4, 2284-8, 9, TSHR #### [facility] ([id number]) [address], [address] [place] [address] MCHC (RBC) [Mass/Vol] 33.5 g/dL Normal 32-36 [facility] Comment on above: Performed By: #### C BCA, CMP, 1833-, , FEPR, 2276-4, 2283-8, 2132-03, TSHR #### [facility] ([id number]) [address], [address] [place] [address] MCV (RBC) [Entitic vol] 91 fL Normal 80-100 P [facility] Comment on above: Performed By: #### C BCA, CMP, 1833-07, , FEPR, 2276-4, 4-8, 2132-03, TSHR #### [facility] ([id number]) [address], [address] [place] [address] Monocytes (Bld) [#/Vol] 1.5 10*3/uL High 0-0.9 [facility] Comment on above: Performed By: #### C BCA, CMP, 1833-07, , FEPR, 6-4, 2283-8, 2132-03, TSHR #### [facility] ([id number]) [address], [address] [place] [address] Monocytes/100 WBC (Bld) 12.4 % Normal P [facility] Comment on above: Performed By: #### C BCA, CMP, 1833-07, , FEPR, 6-4, 2283-8, 2132-03, TSHR #### [facility] ([id number]) [address], [address] [place] [address] Neutrophils/100 WBC (Bld) 84.1 % Normal [facility] Comment on above: Performed By: #### C BCA, CMP, 1833-07, , FEPR, 2276-4, 2283-8, 2132-03, TSHR #### [facility] ([id number]) [address], [address] [place] [address] Platelet mean volume (Bld) [Entitic vol] 8.0 fL Normal 7-12 [facility] Comment on above: Performed By: #### C BCA, CMP, 1833-, 26697-5, FEPR, 2276-4, 2284-8, 2132-03, TSHR #### [facility] ([id number]) [address], [address] [place] [address] Platelets (Bld) [#/Vol] 224 10*3/uL Normal 150-450 [facility] Comment on above: Performed By: #### C BCA, CMP, 1833-, 32224-2, FEPR, 2276-4, 4-8, 2132-03, TSHR #### [facility] ([id number]) [address], [address] [place] [address] RBC COUNT 2.53 X10E12/L Low 4.10-5.70 [facility] Comment on above: Performed By: #### C BCA, CMP, 1833-07, , FEPR, 2276-4, 2283-8, 2132-03, TSHR #### [facility] ([id number]) [address], [address] [place] [address] WBC (Bld) [#/Vol] 12.0 10*3/uL High 4.0-11.0 [facility] Comment on above: Performed By: #### C BCA, CMP, 1833-07, , FEPR, 2276-4, 2283-8, 2132-03, TSHR #### [facility] ([id number]) [address] [place] [address] COMPREHENSIVE METABOLIC PANE Zoran 05-26-2024 Albumin [Mass/Vol] 3.0 g/dL Low 3.2-5.3 [facility] Comment on above: Performed By: #### C BCA, CMP, 1833-, 08281-7, FEPR, 2276-4, 2284-8, 9, TSHR #### [facility] ([id number]) [address], [address] [place] [address] ALP [Catalytic activity/Vol] 235 U/L High 39-130 [facility] Comment on above: Performed By: #### C BCA, CMP, 1833-1, 18059-1, FEPR, 2276-4, 2284-8, 9, TSHR #### [facility] ([id number]) [address], [address] [place] [address] ALT [Catalytic activity/Vol] 77 U/L High 0-40 [facility] Comment on above: Performed By: #### C BCA, CMP, 1833-, , FEPR, 2276-4, 2284-8, 2132-03, TSHR #### [facility] ([id number]) [address], [address] [place] [address] Anion gap [Moles/Vol] 13 mmol/L Normal 5-15 [facility] Comment on above: Performed By: #### C BCA, CMP, 1833-07, , FEPR, 2276-4, 228-8, 2132-03, TSHR #### [facility] ([id number]) [address], [address] [place] [address] AST [Catalytic activity/Vol] 174 U/L High 0-41 [facility] Comment on above: Performed By: #### C BCA, CMP, 1833-, , FEPR, 2276-4, 2284-8, 9, TSHR #### [facility] ([id number]) [address], [address] [place] [address] Bilirubin [Mass/Vol] 1.3 mg/dL High 0.3-1.[address] [facility] Comment on above: Performed By: #### C BCA, CMP, 1833-, 52322-6, FEPR, 2276-4, 2284-8, 9, TSHR #### [facility] ([id number]) [address], [address] [place] [address] Calcium [Mass/Vol] 9.0 mg/dL Normal 8.5-10.5 [facility] Comment on above: Performed By: #### C BCA, CMP, 4-1, 56353-1, FEPR, 6-4, 2283-8, 2132-03, TSHR #### [facility] ([id number]) [address], [address] [place] [address] Chloride [Moles/Vol] 96 mmol/L Low 98-[address] [facility] Comment on above: Performed By: #### C BCA, CMP, 1833-, 88709-4, FEPR, 2275-4, 2283-8, 2132-03, TSHR #### [facility] ([id number]) [address], [address] [place] [address] CO2 [Moles/Vol] 15 mmol/L Low 22-32 [facility] Comment on above: Performed By: #### C BCA, CMP, 1833-, 82301-4, FEPR, 6-4, 2283-8, 2132-03, TSHR #### [facility] ([id number]) [address], [address] [place] [address] Creatinine [Mass/Vol] 2.33 mg/dL High 0.60-1.30 [facility] Comment on above: Result Comment: METH OD TRACEABLE TO IDMS STANDARD Performed By: #### C BCA, CMP, 4-1, 61414-7, FEPR, 6-4, 2283-8, 2132-03, TSHR #### [facility] ([id number]) [address], [address] [place] [address] GFR/1.73 sq M.predicted among non-blacks MDRD (S/P/Bld) [Vol rate/Area] 27 mL/min/{1.73_m2} Low >59 [facility] Comment on above: Result Comment: Reported eGFR is based on the CKD-EPI 2020 equation that does not use a race coefficient. Performed By: #### C BCA, CMP, 1833-, 94029-9, FEPR, 2276-4, 2284-8, 2132-03, TSHR #### [facility] ([id number]) [address], [address] [place] [address] Glucose [Mass/Vol] 154 mg/dL High 65-99 [facility] Comment on above: Performed By: #### C BCA, CMP, 1833-07, , FEPR, 2276-4, 2283-8, 2132-03, TSHR #### [facility] ([id number]) [address], [address] [place] [address] Potassium [Moles/Vol] 4.7 mmol/L Normal 3.5-5.0 [facility] Comment on above: Performed By: #### C BCA, CMP, 1833-07, , FEPR, 2276-4, 2283-8, 2132-03, TSHR #### [facility] ([id number]) [address], [address] [place] [address] Protein [Mass/Vol] 6.0 g/dL Normal 6.0-8.0 [facility] Comment on above: Performed By: #### C BCA, CMP, 1833-07, , FEPR, 2276-4, 2284-8, 2132-03, TSHR #### [facility] ([id number]) [address] [place] [address] Sodium [Moles/Vol] 124 mmol/L Low 134-146 [facility] Comment on above: Performed By: #### C BCA, CMP, 1833-07, , FEPR, 2276-4, 2284-8, 2132-03, TSHR #### [facility] ([id number]) [address], [address] [place] [address] Urea nitrogen [Mass/Vol] 50 mg/dL High 5-27 [facility] Comment on above: Performed By: #### C BCA, CMP, 1833-, 14213-5, FEPR, 2276-4, 2283-8, 2132-03, TSHR #### [facility] ([id number]) [address], [address] [place] [address] Albumin [Mass/Vol] 3.2 g/dL Normal 3.2-5.3 [facility] Comment on above: Performed By: #### C BCA, CMP, 1833-, , FEPR, 2275-4, 2283-8, 2132-03, TSHR #### [facility] ([id number]) [address], [address] [place] [address] ALP [Catalytic activity/Vol] 259 U/L High 39-130 [facility] Comment on above: Performed By: #### C BCA, CMP, 1833-07, , FEPR, 2275-4, 2283-8, 2132-03, TSHR #### [facility] ([id number]) [address], [address] [place] [address] ALT [Catalytic activity/Vol] 84 U/L High 0-40 [facility] Comment on above: Performed By: #### C BCA, CMP, 1833-, 27483-3, FEPR, 6-4, 2283-8, 2132-03, TSHR #### [facility] ([id number]) [address], [address] [place] [address] Anion gap [Moles/Vol] 13 mmol/L Normal 5-15 [facility] Comment on above: Performed By: #### C BCA, CMP, 1833-, 16436-0, FEPR, 2276-4, 2284-8, 9, TSHR #### [facility] ([id number]) [address], [address] [place] [address] AST [Catalytic activity/Vol] 261 U/L High 0-41 [facility] Comment on above: Performed By: #### C BCA, CMP, 1833-, 32847-9, FEPR, 2276-4, 2284-8, 9, TSHR #### [facility] ([id number]) [address] [place] [address] Bilirubin [Mass/Vol] 1.1 mg/dL Normal 0.3-1.[address] [facility] Comment on above: Performed By: #### C BCA, CMP, 1833-07, , FEPR, 6-4, 2283-8, 2132-03, TSHR #### [facility] ([id number]) [address] [place] [address] Calcium [Mass/Vol] 8.9 mg/dL Normal 8.5-10.5 [facility] Comment on above: Performed By: #### C BCA, CMP, 1833-07, , FEPR, 2276-4, 4-8, 2132-03, TSHR #### [facility] ([id number]) [address], [address] [place] [address] Chloride [Moles/Vol] 97 mmol/L Low 98-[address] [facility] Comment on above: Performed By: #### C BCA, CMP, 1833-, , FEPR, 2276-4, 2284-8, 9, TSHR #### [facility] ([id number]) [address] [place] [address] CO2 [Moles/Vol] 16 mmol/L Low 22-32 [facility] Comment on above: Performed By: #### C BCA, CMP, 1833-07, , FEPR, 2276-4, 2283-8, 2132-03, TSHR #### [facility] ([id number]) [address] [place] [address] Creatinine [Mass/Vol] 2.45 mg/dL High 0.60-1.30 [facility] Comment on above: Result Comment: METH OD TRACEABLE TO IDMS STANDARD Performed By: #### C BCA, CMP, 1833-07, , FEPR, 6-4, 2283-8, 2132-03, TSHR #### [facility] ([id number]) [address], [address] [place] [address] GFR/1.73 sq M.predicted among non-blacks MDRD (S/P/Bld) [Vol rate/Area] 26 mL/min/{1.73_m2} Low >59 [facility] Comment on above: Result Comment: Reported eGFR is based on the CKD-EPI 2020 equation that does not use a race coefficient. Performed By: #### C BCA, CMP, 1833-07, , FEPR, 6-4, 8, 2132-03, TSHR #### [facility] ([id number]) [address] [place] [address] Glucose [Mass/Vol] 107 mg/dL High 65-99 [facility] Comment on above: Performed By: #### C BCA, CMP, 1833-07, , FEPR, 2276-4, 228-8, 2132-03, TSHR #### [facility] ([id number]) [address] [place] [address] Potassium [Moles/Vol] 5.4 mmol/L High 3.5-5.0 [facility] Comment on above: Performed By: #### C BCA, CMP, 1833-07, 28614-3, FEPR, 2276-4, 2284-8, 2131-9, TSHR #### [facility] ([id number]) [address] [place] [address] Protein [Mass/Vol] 6.3 g/dL Normal 6.0-8.0 [facility] Comment on above: Performed By: #### C BCA, CMP, 1833-, 66457-7, FEPR, 2276-4, 2284-8, 9, TSHR #### [facility] ([id number]) [address] [place] [address] Sodium [Moles/Vol] 126 mmol/L Low 134-146 [facility] Comment on above: Performed By: #### C BCA, CMP, 1833-, 74840-7, FEPR, 2276-4, 2284-8, 2132-03, TSHR #### [facility] ([id number]) [address] [place] [address] Urea nitrogen [Mass/Vol] 49 mg/dL High 5-27 [facility] Comment on above: Performed By: #### C BCA, CMP, 1833-, 43324-7, FEPR, 2276-4, 2284-8, 9, TSHR #### [facility] ([id number]) [address], [address] [place] [address] Chloride (U) [Moles/Vol]on URINE CHLORIDE,RANDOM 50 mmol/L Normal [facility] Comment on above: Performed By: #### C BCA, CMP, 1833-, 28656-6, FEPR, 2276-4, 2284-8, 9, TSHR #### [facility] ([id number]) [address], [address] [place] [address] Creatinine (U) [Mass/Vol]on 05-26-2024 URINE CREATININE,RDM 87.29 mg/dL Normal [facility] Comment on above: Performed By: #### C BCA, CMP, 1834-1, 60784-2, FEPR, 2276-4, 4-8, 9, TSHR #### [facility] ([id number]) [address], [address] [place] [address] FERRITINon 05-26-2024 Ferritin [Mass/Vol] 497 ng/mL High 24-336 [facility] Comment on above: Performed By: #### C BCA, CMP, 1833-, 60227-5, FEPR, 2276-4, 2283-8, 2132-03, TSHR #### [facility] ([id number]) [address], [address] [place] [address] Folate [Mass/Vol]on 05-26-20 24 FOLIC ACID >25.0 Normal >5.8 [facility] Comment on above: Result Comment: NEW REFERENCE RANGE Performed By: #### C BCA, CMP, 1833-, 38547-0, FEPR, 2276-4, 2283-8, 2132-03, TSHR #### [facility] ([id number]) [address], [address] [place] [address] IRON PROFILEon 05-26-2024 Iron [Mass/Vol] 23 ug/dL Low 50-212 [facility] Comment on above: Performed By: #### C BCA, CMP, 1833-, 33685-6, FEPR, 2276-4, 228-8, 9, TSHR #### [facility] ([id number]) [address], [address] [place] [address] IRON BINDING 202 ug/dL Low 250-425 [facility] Comment on above: Performed By: #### C BCA, CMP, 183-1, 08819-1, FEPR, 2276-4, 228-8, 9, TSHR #### [facility] ([id number]) [address], [address] [place] [address] IRON SATURATION 11 % SATURATION Low 20-[address] [facility] Comment on above: Performed By: #### C BCA, CMP, 1833-07, , FEPR, 6-4, 2283-8, 2132-03, TSHR #### [facility] ([id number]) [address], [address] [place] [address] MAGNESIUMon 05-26-2024 Magnesium [Mass/Vol] 2.2 mg/dL Normal 1.8-2.[address] [facility] Comment on above: Performed By: #### C BCA, CMP, 1833-07, , FEPR, 4, 8, 2132-03, TSHR #### [facility] ([id number]) [address], [address] [place] [address] Magnesium [Mass/Vol] 1.7 mg/dL Low 1.8-2.[address] [facility] Comment on above: Performed By: #### 1 9123-9 #### [facility] ([id number]) [address], [address] [place] [address] Magnesium [Mass/Vol] 1.7 mg/dL Low 1.8-2.[address] [facility] Comment on above: Performed By: #### C BCA, CMP, 1833-07, , FEPR, 2275-4, 8, 2132-03, TSHR #### [facility] ([id number]) [address] [place] [address] Natriuretic peptide B [Mass/ Vol]on 05-26-2024 Natriuretic peptide B (Bld) [Mass/Vol] 1534 pg/mL High <100.0 [facility] Comment on above: Performed By: #### C BCA, CMP, 1833-07, 16667-0, FEPR, 2276-4, 4-8, 9, TSHR #### [facility] ([id number]) [address], [address] [place] [address] Osmolality (U) [Osmolality]o n 05-26-2024 URINE OSMOLALITY 474 mOsm/kg H2 Normal 300-[address] [facility] Comment on above: Performed By: #### C JIN, CMP, 1833-, 30806-0, FEPR, 6-4, 4-8, 2132-03, TSHR #### [facility] ([id number]) [address], [address] [place] [address] Osmolality [Osmolality]on OSMOLALITY 276 mOsm/kg H2 Low 280-300 [facility] Comment on above: Performed By: #### C JIN, SAURABH, 1833-, , FEPR, 6-4, 2283-8, 2132-03, TSHR #### [facility] ([id number]) [address], [address] [place] [address] PROTIME AND INRon 05-26-2024 INR Coag (PPP) [Relative time] 1.6 {INR} High 0.8-1.1 [facility] Comment on above: Performed By: #### C JIN, CMP, 1833-, , FEPR, 6-4, 2283-8, 2132-03, TSHR #### [facility] ([id number]) [address], [address] [place] [address] PT Coag (PPP) [Time] 18.5 s High 9.8-13.[address] [facility] Comment on above: Performed By: #### C JIN, CMP, 1833-, 90360-4, FEPR, 2276-4, 4-8, 9, TSHR #### [facility] ([id number]) [address], [address] [place] [address] Potassium (U) [Moles/Vol]on 05-26-2024 URINE POTASSIUM,RANDOM 36.9 mmol/L Normal P [facility] Comment on above: Performed By: #### C BCA, CMP, 1833-1, 01023-6, FEPR, 2276-4, 2284-8, 2132-03, TSHR #### [facility] ([id number]) [address], [facility] [address] [place] [address] Reminderson 05-26-2024 Reminders Reminders From: Sierra Rizzo To: EU - Recalls Venegas; Sent: 04/27/2024 16:14:14 EDT Show up: 06/27/2024 16:14:00 EST Subject: Neph tube change Due Date/Time: 07/26/2024 16:14:00 EST Reminder/Recall Patient is due in Jul 2024 for 3 month neph tube change at [facility] Patient r/s to Jun 14 due to heart cath. He will be due in Aug.LG Normal [facility] SODIUMon 05-26-2024 Sodium [Moles/Vol] 123 mmol/L Low 134-146 [facility] Comment on above: Performed By: #### C BCA, CMP, 1833-07, 89710-7, FEPR, 6-4, 4-8, 2132-03, TSHR #### [facility] ([id number]) [address], [address] [place] [address] Sodium [Moles/Vol] 127 mmol/L Low 134-146 [facility] Comment on above: Performed By: #### C BCA, CMP, 1833-, 76419-6, FEPR, 2276-4, 2284-8, 2132-03, TSHR #### [facility] ([id number]) [address], [address] [place] [address] TSH WITH REFLEXon 05-26-2024 TSH 1.66 uIU/mL Normal 0.49-4.67 [facility] Comment on above: Performed By: #### C BCA, CMP, 1833-1, 92549-4, FEPR, 2276-4, 2284-8, 9, TSHR #### [facility] ([id number]) [address], [address] [place] [address] URIC ACIDon 05-26-2024 Urate [Mass/Vol] 8.2 mg/dL High 2.6-7.2 [facility] Comment on above: Performed By: #### C BCA, CMP, 1833-, 95678-3, FEPR, 2276-4, 2284-8, 2132-03, TSHR #### [facility] ([id number]) [address], [address] [place] [address] URINALYSISon 05-26-2024 Bilirubin Ql (U) Negative Normal NEG [facility] Comment on above: Performed By: #### C BCA, CMP, 1833-, 61020-7, FEPR, 2276-4, 2284-8, 2132-03, TSHR #### [facility] ([id number]) [address], [address] [place] [address] BLOOD/HGB Large Abnormal NEG [facility] Comment on above: Performed By: #### C BCA, CMP, 1833-, 99240-6, FEPR, 2276-4, 2284-8, 9, TSHR #### [facility] ([id number]) [address], [address] [place] [address] Color (U) YELLOW Normal YELLOW [facility] Comment on above: Performed By: #### C BCA, CMP, 1833-1, 64022-1, FEPR, 2276-4, 2284-8, 2131-9, TSHR #### [facility] ([id number]) [address], [address] [place] [address] Glucose Ql (U) Negative Normal NEG [facility] Comment on above: Performed By: #### C BCA, CMP, 1834-1, 58135-4, FEPR, 2276-4, 2284-8, 2131-9, TSHR #### [facility] ([id number]) [address], [address] [place] [address] Ketones Ql (U) 10 mg/dL Abnormal NEG [facility] Comment on above: Performed By: #### C BCA, CMP, 1833-, 42640-9, FEPR, 2276-4, 2284-8, 2131-9, TSHR #### [facility] ([id number]) [address], [address] [place] [address] Leukocyte esterase Test strip Ql (U) Large Abnormal NEG [facility] Comment on above: Performed By: #### C BCA, CMP, 1833-, 80315-8, FEPR, 2276-4, 2284-8, 2131-9, TSHR #### [facility] ([id number]) [address], [address] [place] [address] MUCOUS PRESENT Abnormal NONE [facility] Comment on above: Performed By: #### C BCA, CMP, 1833-, 67328-7, FEPR, 2276-4, 2284-8, 2131-9, TSHR #### [facility] ([id number]) [address], [address] [place] [address] Nitrite Ql (U) Positive Abnormal NEG [facility] Comment on above: Performed By: #### C BCA, CMP, 1833-1, 87814-7, FEPR, 2276-4, 2284-8, 2-9, TSHR #### [facility] ([id number]) [address], [address] [place] [address] pH (U) 8.0 [pH] Normal 5.0-8.5 [facility] Comment on above: Performed By: #### C BCA, CMP, 1833-, 62055-7, FEPR, 6-4, 2283-8, 2132-03, TSHR #### [facility] ([id number]) [address], [address] [place] [address] Protein Ql (U) 100 mg/dL Abnormal NEG [facility] Comment on above: Performed By: #### C BCA, CMP, 1833-, 38211-2, FEPR, 6-4, 2283-8, 2131-9, TSHR #### [facility] ([id number]) [address], [address] [place] [address] R.B.CELLS 7 /hpf High 0-5 [facility] Comment on above: Performed By: #### C BCA, CMP, 1833-, 38312-9, FEPR, 6-4, 2283-8, 2132-03, TSHR #### [facility] ([id number]) [address], [address] [place] [address] Specific gravity (U) [Rel density] 1.017 Normal 1.003-1.035 [facility] Comment on above: Performed By: #### C BCA, CMP, 1833-, 53836-9, FEPR, 2275-4, 2283-8, 2132-03, TSHR #### [facility] ([id number]) [address], [address] [place] [address] SQUAMOUS EPITHELIUM 2 /hpf Normal 0-5 [facility] Comment on above: Performed By: #### C BCA, CMP, 1833-, 81073-2, FEPR, 2276-4, 2283-8, 9, TSHR #### [facility] ([id number]) [address], [address] [place] [address] TRIPLE PHOS CRYSTALS PRESENT Abnormal NONE [facility] Comment on above: Performed By: #### C BCA, CMP, 1833-, 46730-5, FEPR, 2276-4, 2284-8, 2131-9, TSHR #### [facility] ([id number]) [address], [address] [place] [address] TURBIDITY HAZY Abnormal CLEAR [facility] Comment on above: Performed By: #### C BCA, CMP, 1833-, 59783-9, FEPR, 2276-4, 2284-8, 2132-03, TSHR #### [facility] ([id number]) [address], [address] [place] [address] Urobilinogen (U) [Mass/Vol] mg/dL Normal <1.1 [facility] Comment on above: Performed By: #### C BCA, CMP, 1833-, , FEPR, 2276-4, 2283-8, 2132-03, TSHR #### [facility] ([id number]) [address], [address] [place] [address] W.B.CELLS 36 /hpf High 0-5 [facility] Comment on above: Performed By: #### C BCA, CMP, 1833-, , FEPR, 2276-4, 228-8, 2132-03, TSHR #### [facility] ([id number]) [address], [address] [place] [address] URINE SODIUM,RANDOMon 2023 Sodium (U) [Moles/Vol] 52 mmol/L Normal [facility] Comment on above: Performed By: #### C BCA, CMP, 1833-, 94266-9, FEPR, 2276-4, 2284-8, 9, TSHR #### [facility] ([id number]) [address], [address] [place] [address] US ABDOMEN LMTDon 05-26-2024 US ABDOMEN LMTD [...] Parkinson MD on 05/26/2024 9:54 AM Normal [facility] US RETROPERITONEAL COMPLETEo n 05-26-2024 US RETROPERITONEAL [...] Parkinson MD on 05/26/2024 9:58 AM Normal [facility] Urea nitrogen (U) [Mass/Vol] on 05-26-2024 URINE UREA NITROGEN,RANDOM 712 mg/dL Normal [facility] Comment on above: Performed By: #### C BCA, CMP, 1834-1, 81874-6, FEPR, 2276-4, 2284-8, 2132-03, TSHR #### [facility] ([id number]) [address], [address] [place] [address] VITAMIN B12on 05-26-2024 Cobalamin (Vitamin B12) [Mass/Vol] 1422 pg/mL High 180-914 [facility] Comment on above: Performed By: #### C BCA, CMP, 1834-1, 71831-1, FEPR, 2276-4, 2284-8, 2132-03, TSHR #### [facility] ([id number]) [address] [place] [address] aPTT Coag (PPP) [Time]on aPTT Coag (Bld) [Time] 27 s Normal 26-[address] [facility] Comment on above: Performed By: #### C BCA, CMP, 1834-1, 30272-0, FEPR, 2276-4, 2284-8, 2132-03, TSHR #### [facility] ([id number]) [address] [place] [address] Basophils/100 WBC Manual cnt (Bld)on 05-25-2024 Basophils/100 WBC (Bld) Basophils/100 leukocytes in Blood by Manual count Low 0.2-2.0 [facility] Eosinophils/100 WBC Manual c nt (Bld)on 05-25-2024 Eosinophils/100 WBC (Bld) Eosinophils/100 leukocytes in Blood by Manual count Low 0.9-7.0 [facility] Erythrocyte distribution wid th Auto (RBC) [Ratio]on 05-25-2024 Erythrocyte distribution width (RBC) [Ratio] Erythrocyte distribution width [Ratio] by Automated count 11.0-15.0 [facility] Estimated glomerular filtrat ion rate (GFR) non- Americanon 05-25-2024 GFR/1.73 sq M.predicted among non-blacks MDRD (S/P/Bld) [Vol rate/Area] Estimated glomerular filtration rate (GFR) non- Low >=60 mL/min/1.73 m 2 [facility] Globulin Calc (S) [Mass/Vol] on 05-25-2024 Globulin (S) [Mass/Vol] Serum globulin measurement by calculation (mass/volume) [facility] Hematocrit Auto (Bld) [Volum e fraction]on 05-25-2024 Hematocrit (Bld) [Volume fraction] Hematocrit [Volume Fraction] of Blood by Automated count Critically low 42.0-54.0 [facility] Comment on above: RESULTS CALLED TO JASMIN WEBB @BY Minnie Snell [phone] Hemoglobin [Mass/volume] in Bloodon 05-25-2024 Hemoglobin (Bld) [Mass/Vol] Hemoglobin [Mass/volume] in Blood Low 14.0-18.0 [facility] Hemoglobin.gastrointestinal [Presence] in Stoolon 05-25-2024 Hemoglobin.gastrointesti nal Ql (Stl) Hemoglobin.gastrointes tinal [Presence] in Stool Abnormal [facility] INR in Platelet poor plasma by Coagulation assayon 05-25-2024 INR Coag (PPP) [Relative time] INR in Platelet poor plasma by Coagulation assay [facility] Comment on above: DESIRED INR:2.0-3.0 CONDITIONS NOT LISTED BELOW2.5-3.5 FOR PROSTHETIC HEART VALVE REPLACEMENT2.5-3.5 RECURRENT THROMBOSIS Laboratory - Chemistry and C hemistry - challengeon 05-25-2024 Bilirubin Ql (U) Negative NEGATIVE [facility] Glucose (U) [Mass/Vol] [facility] Ketones Ql (U) Negative NEGATIVE [facility] pH (U) [pH] Abnormal 5.0-9.0 [facility] Specific gravity (U) [Rel density] 1.010 1.005-1.025 [facility] Urobilinogen Qn (U) 0.2 {Raffi'U}/dL 0.2-1.0 [facility] Albumin [Mass/Vol] 2.7 g/dL Low 3.4-5.0 [facility] ALP [Catalytic activity/Vol] 332 U/L High 46-116 [facility] ALT [Catalytic activity/Vol] 142 U/L High 16-63 [facility] AST [Catalytic activity/Vol] 849 U/L Critically high 15-37 [facility] Comment on above: RESULTS CALLED TO DOM ALEXANDRE RN Bilirubin [Mass/Vol] 1.2 mg/dL High 0.2-1.0 [facility] Calcium [Mass/Vol] 9.2 mg/dL 8.5-10.1 [facility] Chloride [Moles/Vol] 93 mmol/L Low 98-107 [facility] CO2 [Moles/Vol] 16.6 mmol/L Low 21.0-32.0 [facility] Creatinine [Mass/Vol] 2.97 mg/dL High 0.70-1.30 [facility] GFR/1.73 sq M.predicted MDRD (S/P/Bld) [Vol rate/Area] 25 mL/min/{1.73_m2} Low >=60 mL/min/1.73 m 2 [facility] Glucose [Mass/Vol] 137 mg/dL High 74-106 [facility] Lactate [Moles/Vol] 1.8 mmol/L 0.4-2.0 [facility] Lipase [Catalytic activity/Vol] 30.0 U/L 16.0-77.0 [facility] Potassium [Moles/Vol] 5.6 mmol/L High 3.5-5.1 [facility] Protein [Mass/Vol] 6.9 g/dL 6.4-8.2 [facility] Sodium [Moles/Vol] 124 mmol/L Critically low 136-145 [facility] Comment on above: RESULTS CALLED TO DOM ALEXANDRE RN Urea nitrogen [Mass/Vol] 52.0 mg/dL High 7.0-18.0 [facility] Urea nitrogen/Creatinine [Mass ratio] 17.5 mg/mg [facility] Laboratory - Hematology and Cell countson 05-25-2024 Lymphocytes/100 WBC (Bld) 2.0 % Low 20.5-60.0 [facility] Monocytes/100 WBC (Bld) 7.0 % 1.7-12.0 [facility] - Specimen inform ationon 05-25-2024 Appearance (U) CLEAR CLEAR [facility] Color (U) LT. YELLOW YELLOW [facility] Laboratory - Urinalysison Leukocyte esterase Test strip Ql (U) MODERATE Abnormal NEGATIVE [facility] Mucus Ql (Urine sed) NONE SEEN NONE SEEN [facility] Nitrite Ql (U) Negative NEGATIVE [facility] Protein Ql (U) 100 mg/dL Abnormal NEG/TRACE [facility] Leukocytes [#/volume] correc ronald for nucleated erythrocytes in Blood by Automated counon 05-25-2024 WBC corrected for nucl RBC Auto (Bld) [#/Vol] Leukocytes [#/volume] corrected for nucleated erythrocytes in Blood by Automated coun High 4.0-11.0 [facility] MCH Auto (RBC) [Entitic mass ]on 05-25-2024 MCH (RBC) [Entitic mass] MCH [Entitic ma ss] by Automated count 25.9-34.0 [facility] MCHC Auto (RBC) [Mass/Vol]on 05-25-2024 MCHC (RBC) [Mass/Vol] MCHC [Mass/volume] by Automated count 29.9-35.2 [facility] MCV Auto (RBC) [Entitic vol] on 05-25-2024 MCV (RBC) [Entitic vol] MCV [Entitic vol ume] by Automated count 80.0-94.0 [facility] No Panel InformationOrdered By: DIMITRI SANTOS on 05-25-2024 Blood Culture 2 [facility] Blood Culture 1 [facility] No Panel Informationon 05-25 Miscellaneous Test Comment See comment [facility] Comment on above: Specimen Source: UCC - Urine,Clean Catch - Urine CC - 200.100 Urine Bacteria SMALL #/HPF Abnormal NONE SEEN [facility] Urine Culture Reflexed YES [facility] Urine Culture Result 1 \R\ Urine Culture , Routine [facility] Urine Occult Blood MODERATE Abnormal NEGATIVE [facility] Urine Other Casts NONE SEEN #/LPF NONE SEEN [facility] Urine Other Crystals Seen #/HPF Abnormal None Seen [facility] Urine RBC 5-10 #/HPF Abnormal 0-2 [facility] Urine Squamous Epithelial Cells RARE #/LPF NONE/RARE [facility] Urine Triple Phosphate Crystals RARE [facility] Urine WBC 5-10 #/HPF Abnormal NONE SEEN [facility] Absolute Basophils (Manual) 0.00 10 3/uL 0.00-0.10 [facility] Eosinophils # (Manual) 0.00 10 3/uL 0.00-0.70 [facility] Lymphocytes # (Manual) 0.29 10 3/uL Low 1.20-3.80 [facility] Monocytes # (Manual) 1.04 10 3/uL High 0.30-0.80 [facility] Segmented Neutrophils # (Manual) 13.55 10 3/uL High 1.4-6.5 [facility] Troponin I High Sensitivity 42.9 pg/mL 4.0-76.1 [facility] Comment on above: CUT-OFF POINTS HAVE [...] volume] in Blood by Automated count 9.5-13.5 [facility] Platelets Auto (Bld) [#/Vol] on 05-25-2024 Platelets (Bld) [#/Vol] Platelets [#/vol ume] in Blood by Automated count 150-450 [facility] Prothrombin time (PT)on - PT Coag (PPP) [Time] Prothrombin time (PT) High 9.0- 11.6 [facility] RBC Auto (Bld) [#/Vol]on RBC (Bld) [#/Vol] Erythrocytes [#/volume] in Blood by Automated count Low 4.70-6.10 [facility] Segmented neutrophils/100 WB C Manual cnt (Bld)on 05-25-2024 Segmented neutrophils/100 WBC (Bld) Manual blood segmented neutrophils/100 leukocytes High 43.0-75.0 [facility] Serum or plasma albumin/glob ulin mass ratioon 05-25-2024 Albumin/Globulin [Mass ratio] Serum or plasma albumin/globulin mass ratio [facility] Serum or plasma anion gap de terminationon 05-25-2024 Anion gap [Moles/Vol] Serum or plasma an ion gap determination [facility] Basophils/100 WBC Manual cnt (Bld)on 05-24-2024 Basophils/100 WBC (Bld) Basophils/100 leukocytes in Blood by Manual count Low 0.2-2.0 [facility] Eosinophils/100 WBC Manual c nt (Bld)on 05-24-2024 Eosinophils/100 WBC (Bld) Eosinophils/100 leukocytes in Blood by Manual count Low 0.9-7.0 [facility] Erythrocyte distribution wid th Auto (RBC) [Ratio]on 05-24-2024 Erythrocyte distribution width (RBC) [Ratio] Erythrocyte distribution width [Ratio] by Automated count 11.0-15.0 [facility] Estimated glomerular filtrat ion rate (GFR) non- Americanon 05-24-2024 GFR/1.73 sq M.predicted among non-blacks MDRD (S/P/Bld) [Vol rate/Area] Estimated glomerular filtration rate (GFR) non- Low >=60 mL/min/1.73 m 2 [facility] Globulin Calc (S) [Mass/Vol] on 05-24-2024 Globulin (S) [Mass/Vol] Serum globulin measurement by calculation (mass/volume) [facility] Hematocrit Auto (Bld) [Volum e fraction]on 05-24-2024 Hematocrit (Bld) [Volume fraction] Hematocrit [Volume Fraction] of Blood by Automated count Low 42.0-54.0 [facility] Hemoglobin [Mass/volume] in Bloodon 05-24-2024 Hemoglobin (Bld) [Mass/Vol] Hemoglobin [Mass/volume] in Blood Low 14.0-18.0 [facility] Laboratory - Chemistry and C hemistry - challengeon 05-24-2024 Albumin [Mass/Vol] 2.5 g/dL Low 3.4-5.0 [facility] ALP [Catalytic activity/Vol] 228 U/L High 46-116 [facility] ALT [Catalytic activity/Vol] 76 U/L High 16-63 [facility] AST [Catalytic activity/Vol] 205 U/L High 15-37 [facility] Bilirubin [Mass/Vol] 1.0 mg/dL 0.2-1.0 [facility] Calcium [Mass/Vol] 8.9 mg/dL 8.5-10.1 [facility] Chloride [Moles/Vol] 98 mmol/L 98-107 [facility] CO2 [Moles/Vol] 18.1 mmol/L Low 21.0-32.0 [facility] Creatinine [Mass/Vol] 2.36 mg/dL High 0.70-1.30 [facility] GFR/1.73 sq M.predicted MDRD (S/P/Bld) [Vol rate/Area] 32 mL/min/{1.73_m2} Low >=60 mL/min/1.73 m 2 [facility] Glucose [Mass/Vol] 137 mg/dL High 74-106 [facility] Lactate [Moles/Vol] 1.5 mmol/L 0.4-2.0 [facility] Potassium [Moles/Vol] 4.9 mmol/L 3.5-5.1 [facility] Protein [Mass/Vol] 6.3 g/dL Low 6.4-8.2 [facility] Sodium [Moles/Vol] 128 mmol/L Low 136-145 [facility] Urea nitrogen [Mass/Vol] 43.0 mg/dL High 7.0-18.0 [facility] Urea nitrogen/Creatinine [Mass ratio] 18.2 mg/mg [facility] Laboratory - Hematology and Cell countson 05-24-2024 Lymphocytes/100 WBC (Bld) 8.0 % Low 20.5-60.0 [facility] Monocytes/100 WBC (Bld) 7.0 % 1.7-12.0 [facility] Leukocytes [#/volume] correc ronald for nucleated erythrocytes in Blood by Automated counon 05-24-2024 WBC corrected for nucl RBC Auto (Bld) [#/Vol] Leukocytes [#/volume] corrected for nucleated erythrocytes in Blood by Automated coun 4.0-11.0 [facility] MCH Auto (RBC) [Entitic mass ]on 05-24-2024 MCH (RBC) [Entitic mass] MCH [Entitic ma ss] by Automated count 25.9-34.0 [facility] MCHC Auto (RBC) [Mass/Vol]on 05-24-2024 MCHC (RBC) [Mass/Vol] MCHC [Mass/volume] by Automated count 29.9-35.2 [facility] MCV Auto (RBC) [Entitic vol] on 05-24-2024 MCV (RBC) [Entitic vol] MCV [Entitic vol ume] by Automated count 80.0-94.0 [facility] No Panel Informationon 05-24 Troponin I High Sensitivity 30.5 pg/mL 4.0-76.1 [facility] Comment on above: CUT-OFF POINTS HAVE [...] Absolute Basophils (Manual) 0.00 10 3/uL 0.00-0.10 [facility] Eosinophils # (Manual) 0.00 10 3/uL 0.00-0.70 [facility] Lymphocytes # (Manual) 0.85 10 3/uL Low 1.20-3.80 [facility] Monocytes # (Manual) 0.74 10 3/uL 0.30-0.80 [facility] Segmented Neutrophils # (Manual) 9.09 10 3/uL High 1.4-6.5 [facility] Platelet mean volume Auto (B ld) [Entitic vol]on 05-24-2024 Platelet mean volume (Bld) [Entitic vol] Platelet mean volume [Entitic volume] in Blood by Automated count 9.5-13.5 [facility] Platelets Auto (Bld) [#/Vol] on 05-24-2024 Platelets (Bld) [#/Vol] Platelets [#/vol ume] in Blood by Automated count 150-450 [facility] RBC Auto (Bld) [#/Vol]on RBC (Bld) [#/Vol] Erythrocytes [#/volume] in Blood by Automated count Low 4.70-6.10 [facility] Segmented neutrophils/100 WB C Manual cnt (Bld)on 05-24-2024 Segmented neutrophils/100 WBC (Bld) Manual blood segmented neutrophils/100 leukocytes High 43.0-75.0 [facility] Serum or plasma albumin/glob ulin mass ratioon 05-24-2024 Albumin/Globulin [Mass ratio] Serum or plasma albumin/globulin mass ratio [facility] Serum or plasma anion gap de terminationon 05-24-2024 Anion gap [Moles/Vol] Serum or plasma an ion gap determination [facility] ANESon 05-19-2024 ANES -- Attestation signed by Emanuel Gregg MD at 05/19/2024 10:07 AM Emanuel Gregg MD, MPH, [facility], [facility], [facility] Interventional Cardiology Pager Email: [email or web address] Patient: Mykel Olivera Procedure Information Date/Time: 05/19/24 1130 Procedures: Coronary angiography - PC 05/12-11/08 Right heart cath Location: [facility] CD MIXER 3 / [facility] (Cath) Providers: Emanuel Gregg MD Clinical information reviewed: Allergies Meds Physical Exam Airway Mallampati: III TM distance: >3 FB Neck ROM: full Cardiovascular Rhythm: regular Rate: normal Dental Pulmonary Abdominal Anesthesia Plan ASA 3 (Conscious sedation) Anesthetic plan and risks discussed with patient. Use of blood products discussed with patient who. Plan discussed with attending. Additional Equipment Requests Normal [facility] HPon 05-19-2024 HP -- Attestation signed by [...] documentation from me. Emanuel Gregg MD, MPH, [facility], [facility], [facility] Interventional Cardiology Pager Email: [email or web address] H&P reviewed. The patient is experiencing worsening SOB. The procedure was explained to the patient. The risks and benefits of the procedure were explained to the patient who showed understanding and with full capacity elected to proceed with the procedure. All questions were addressed and answered. Will proceed with RHC and Cors/Grafts Magdalene Xiong MD Elementary Math Tutor - PGY6 [facility] NURSNOTEon 05-19-2024 NURSNOTE RN educated pt [...] off of unit with all of belongings. [facility] Orders Onlyon 05-19-2024 Orders Only [id number] Mykel Olivera 1940 M Date Provider Department Center 05/19/2024 CASSANDRA ZEPEDA [facility] No family history on file [facility] Basophils Auto (Bld) [#/Vol] on 05-13-2024 Basophils (Bld) [#/Vol] Automated basoph il count 0.0-0.1 [facility] Basophils/100 WBC Auto (Bld) on 05-13-2024 Basophils/100 WBC (Bld) Automated basophil % 0. 2-2.0 [facility] Eosinophils/100 WBC Auto (Bl d)on 05-13-2024 Eosinophils/100 WBC (Bld) Automated eosinophil % 0.9-7.0 [facility] Erythrocyte distribution wid th Auto (RBC) [Ratio]on 05-13-2024 Erythrocyte distribution width (RBC) [Ratio] Erythrocyte distribution width [Ratio] by Automated count 11.0-15.0 [facility] Estimated glomerular filtrat ion rate (GFR) non- Americanon 05-13-2024 GFR/1.73 sq M.predicted among non-blacks MDRD (S/P/Bld) [Vol rate/Area] Estimated glomerular filtration rate (GFR) non- Low >=60 mL/min/1.73 m 2 [facility] Hematocrit Auto (Bld) [Volum e fraction]on 05-13-2024 Hematocrit (Bld) [Volume fraction] Hematocrit [Volume Fraction] of Blood by Automated count Low 42.0-54.0 [facility] Hemoglobin [Mass/volume] in Bloodon 05-13-2024 Hemoglobin (Bld) [Mass/Vol] Hemoglobin [Mass/volume] in Blood Low 14.0-18.0 [facility] Laboratory - Chemistry and C hemistry - challengeon 05-13-2024 Calcium [Mass/Vol] 9.0 mg/dL 8.5-10.1 [facility] Chloride [Moles/Vol] 103 mmol/L 98-107 [facility] CO2 [Moles/Vol] 20.9 mmol/L Low 21.0-32.0 [facility] Creatinine [Mass/Vol] 2.10 mg/dL High 0.70-1.30 [facility] GFR/1.73 sq M.predicted MDRD (S/P/Bld) [Vol rate/Area] 37 mL/min/{1.73_m2} Low >=60 mL/min/1.73 m 2 [facility] Glucose [Mass/Vol] 150 mg/dL High 74-106 [facility] Potassium [Moles/Vol] 4.1 mmol/L 3.5-5.1 [facility] Sodium [Moles/Vol] 137 mmol/L 136-145 [facility] Urea nitrogen [Mass/Vol] 37.0 mg/dL High 7.0-18.0 [facility] Urea nitrogen/Creatinine [Mass ratio] 17.6 mg/mg [facility] Laboratory - Hematology and Cell countson 05-13-2024 Immature granulocytes/100 WBC (Bld) 0.5 % 0.0-0.5 [facility] Leukocytes [#/volume] correc ronald for nucleated erythrocytes in Blood by Automated counon 05-13-2024 WBC corrected for nucl RBC Auto (Bld) [#/Vol] Leukocytes [#/volume] corrected for nucleated erythrocytes in Blood by Automated coun 4.0-11.0 [facility] Lymphocytes Auto (Bld) [#/Vo l]on 05-13-2024 Lymphocytes (Bld) [#/Vol] Lymphocytes [#/volume] in Blood by Automated count Low 1.2-3.8 [facility] Lymphocytes/100 WBC Auto (Bl d)on 05-13-2024 Lymphocytes/100 WBC (Bld) Lymphocytes/100 leukocytes in Blood by Automated count Low 20.5-60.0 [facility] MCH Auto (RBC) [Entitic mass ]on 05-13-2024 MCH (RBC) [Entitic mass] MCH [Entitic ma ss] by Automated count 25.9-34.0 [facility] MCHC Auto (RBC) [Mass/Vol]on 05-13-2024 MCHC (RBC) [Mass/Vol] MCHC [Mass/volume] by Automated count 29.9-35.2 [facility] MCV Auto (RBC) [Entitic vol] on 05-13-2024 MCV (RBC) [Entitic vol] MCV [Entitic vol ume] by Automated count High 80.0-94.0 [facility] Monocytes Auto (Bld) [#/Vol] on 05-13-2024 Monocytes (Bld) [#/Vol] Automated blood monocyte count 0.3-0.8 [facility] Monocytes/100 WBC Auto (Bld) on 05-13-2024 Monocytes/100 WBC (Bld) Automated monocyte % High 1. 7-12.0 [facility] Neutrophils Auto (Bld) [#/Vo l]on 05-13-2024 Neutrophils (Bld) [#/Vol] Neutrophils [#/volume] in Blood by Automated count 1.4-6.5 [facility] Neutrophils/100 WBC Auto (Bl d)on 05-13-2024 Neutrophils/100 WBC (Bld) Automated neutrophil % High 43.0-75.0 [facility] No Panel Informationon 05-13 Eosinophils # (Auto) 0.1 10 3/uL 0.0-0.7 [facility] Immature Granulocyte # (Auto) 0.03 10 3/uL 0.00-0.03 [facility] Platelet mean volume Auto (B ld) [Entitic vol]on 05-13-2024 Platelet mean volume (Bld) [Entitic vol] Platelet mean volume [Entitic volume] in Blood by Automated count 9.5-13.5 [facility] Platelets Auto (Bld) [#/Vol] on 05-13-2024 Platelets (Bld) [#/Vol] Platelets [#/vol ume] in Blood by Automated count 150-450 [facility] RBC Auto (Bld) [#/Vol]on RBC (Bld) [#/Vol] Erythrocytes [#/volume] in Blood by Automated count Low 4.70-6.10 [facility] Serum or plasma anion gap de terminationon 05-13-2024 Anion gap [Moles/Vol] Serum or plasma an ion gap determination [facility] 36on 05-10-2024 36 Regarding stress rose [...] Keely and Skip to enter orders. Normal [facility] [place] [facility] Orders Onlyon 05-10-2024 Orders Only [id number] Mykel Olivera 1940 [place] Date Provider Department Center 05/10/2024 [id number], TANA CARD [facility] No family history on file Normal [facility] [place] [facility] Reminderson 04-27-2024 Reminders Reminders From: Sierra Rizzo To: LICHA - Elizabeth Venegas; Sent: 10/31/2023 09:54:34 EDT Show up: 01/05/2024 09:54:00 EDT Subject: neph tube change Due Date/Time: 01/28/2024 09:54:00 EDT Reminder/Recall Patient will be due in January 2024 for 3 month neph tube change at [facility] l/m on [facility] IR vm.SLICK Wray called back, pt sched for 02/13/24 @ 8:30am. Pt will be due in Apr 2024.LG Spoke to pt, he cannot do 05/04/24. L/m on [facility] IR sched line to sched with Kamala .SLICK Wray called back, pt sched for 05/18/24 @ 7:45am. Order faxed [phone].SLICK Normal [facility] HPon 04-19-2024 [facility] Cardiology Clinic Note Chief Complaint: Patient [...] Disp: 180 tablet, Rfl: 3 HYDROcodone-acetaminop hen (Vale) 5-325 mg tablet, 1 tablet as needed, [...] study 04/06/2019 (more content not included)... Normal [facility] [place] [facility] Office Visiton 04-19-2024 Follow-up visit [id number] Mykel Olivera Yana 1940 M Date Provider Department Center 04/19/2024 [id number], EMANUEL CARD [facility] No family history on file Level of Service:59072 ME OFFICE/OUTPATIENT ESTABLISHED MOD MDM 30 MIN Normal [facility] [place] [facility] Reminderson 04-12-2024 Reminders Reminders From: Sierra Rizzo To: LICHA - Recalls Venegas; Sent: 04/12/2024 09:13:14 EDT Show up: 06/27/2024 09:12:00 EST Subject: neph tube change Due Date/Time: 07/19/2024 09:12:00 EST Reminder/Recall Patient needs right neph tube change in Jul 2024, 3 mo Normal [facility] C Urineon 04-07-2024 Bacteria identified Cx Nom [...] Locations R1: This test was performed at: [facility], [address] [place] [address], [facility]- , , Normal [facility] Comment on above: Performed By: #### 2 [id number] #### [facility] [address] [place] [address] IR nephrostomy tube chg UNon 02-13-2024 IR nephrostomy tube chg UN [facility] [place] [address] Interventional Radiology Rpt Signed Patient: Mykel Olivera MR#: [id number] : 1940 Acct:[id number] Age/Sex: 83 / M ADM Date: 02/13/24 Loc: IR Room: Type: [facility] Attending Dr: Kami Venegas MD Copies [...] nephrostomy tube was removed. A new 12 Belgian nephrostomy tube was administered into the right renal pelvis with wire guidance. The guidewire removed and pigtail locked. Contrast administered confirming adequate position. The nephrostomy tube was secured to skin. No immediate complications. IR/IR nephrostomy tube chg UN IMPRESSION: Adequate replacement of 12 Belgian right percutaneous nephrostomy tube. Impression dictated by: Declan Moreira M.D.02/13/2024 12:28 PM Dictation Location: [place] [address] Transcribed By: [facility] 02/13/24 1228 Dictated By: Declan Moreira DO 02/13/24 1223 Signed By: 02/13/24 1228 Normal [facility] UroVysion Fish and Urine Cyt o ([facility])on 02-06-2024 [facility] Diagnosis Info Invalid Interpretation Code [facility] Comment on above: Result Comment: A:Ur ine,Urine:Voided [...] on: 02/06/2024 16:35:49 Performed By: #### 1 [id number] #### [facility] [address] [place] [address] Ambulatory Visit Summaryon 0 02-02-2024 Ambulatory Visit Summary Ambulatory Visi t Summary RICKI LOIVERA :1940 Visit Date:02/02/2024 Ambulatory Visit Instructions Your [...] you for choosing us for your care. [facility] UroVysion Fish and Urine Cyt o ([facility])on 07-08-2024 [facility] Method of Extraction Voided Normal [facility] Comment on above: Performed By: #### 1 [id number] #### [facility] [address] [place] [address] [facility] Number of Jars 1 Invalid Interpretation Code [facility] Comment on above: Performed By: #### 1 [id number] #### [facility] [address] [place] [address] [facility] Specimen Urine Normal [facility] Comment on above: Performed By: #### 1 [id number] #### [facility] [address] [place] [address] [facility] Type of Service Technical Only Normal [facility] Comment on above: Performed By: #### 1 [id number] #### [facility] [address] [place] [address] Reminderson 01-27-2024 Reminders Reminders From: Sierra Rizzo To: EU - Recalls Venegas; Sent: 01/27/2024 12:47:06 EDT Show up: 11/25/2024 12:46:00 EDT Subject: cysto/fish/cytol Due Date/Time: 12/20/2024 12:47:00 EDT Reminder/Recall Patient is due in January 2025 for 1 year cysto/fish/cytol, bt ck Normal [facility] Consent for Procedure/Surger yon 01-21-2024 Consent for Procedure/Surgery [id number]#1.0 0TIFF Normal [facility] IR nephrostomy tube chg UNon 11-21-2023 IR nephrostomy tube chg UN [facility] [place] [address] Interventional Radiology Rpt Signed Patient: Mykel Olivera MR#: [id number] : 1940 Acct:[id number] Age/Sex: 83 / M ADM Date: 11/21/23 Loc: IR Room: Type: [facility] Attending Dr: Declan Moreira DO [...] Declan Moreira M.D.11/21/2023 12:48 PM Dictation Location: [place] [address] Transcribed By: [facility] 11/21/23 1248 Dictated By: Declan Moreira DO 11/21/23 1239 Signed By: 11/21/23 1248 Normal [facility] CBC AND AUTO DIFFon 11-05-19 ABSOLUTE BASOPHIL 0.0 X10E9/L Normal 0.0-0.2 [facility] Comment on above: Performed By: #### C JIN, CMP, 1834-, 70144-7, FEPR, 2276-4, 2284-8, 9, TSHR #### [facility] ([id number]) [address], [address] [place] [address] ABSOLUTE NEUTROPHIL 7.3 X10E9/L High 1.5-6.[address] [facility] Comment on above: Performed By: #### C JIN, CMP, 1834-1, 94542-3, FEPR, 2276-4, 2284-8, 213-9, TSHR #### [facility] ([id number]) [address], [address] [place] [address] Basophils/100 WBC (Bld) 0.3 % Normal [facility] Comment on above: Performed By: #### C BCA, CMP, 1833-, , FEPR, 2276-4, 2283-8, 2132-03, TSHR #### [facility] ([id number]) [address], [address] [place] [address] Eosinophils (Bld) [#/Vol] 0.1 10*3/uL Normal 0.0-0.4 [facility] Comment on above: Performed By: #### C BCA, CMP, 1833-07, , FEPR, 2276-4, 2283-8, 2132-03, TSHR #### [facility] ([id number]) [address], [address] [address] Eosinophils/100 WBC (Bld) 1.2 % Normal [facility] Comment on above: Performed By: #### C BCA, CMP, 1833-07, , FEPR, 6-4, 2283-8, 2132-03, TSHR #### [facility] ([id number]) [address], [address] [address] Erythrocyte distribution width (RBC) [Ratio] 15.5 % High 11.5-15.0 [facility] Comment on above: Performed By: #### C BCA, CMP, 1833-07, , FEPR, 6-4, 2283-8, 2132-03, TSHR #### [facility] ([id number]) [address], [address] [place] [address] Hematocrit (Bld) [Volume fraction] 23.2 % Low 39-49 [facility] Comment on above: Performed By: #### C BCA, CMP, 1833-, , FEPR, 2276-4, 2284-8, 2132-03, TSHR #### [facility] ([id number]) [address], [address] [place] [address] Hemoglobin (Bld) [Mass/Vol] 7.9 g/dL Low 13.0-17.0 [facility] Comment on above: Performed By: #### C BCA, CMP, 1833-, 80226-2, FEPR, 2276-4, 2284-8, 2131-9, TSHR #### [facility] ([id number]) [address], [address] [place] [address] Lymphocytes (Bld) [#/Vol] 0.3 10*3/uL Low 1.0-3.5 [facility] Comment on above: Performed By: #### C BCA, CMP, 1833-07, , FEPR, 2276-4, 2284-8, 2132-03, TSHR #### [facility] ([id number]) [address], [address] [address] Lymphocytes/100 WBC (Bld) 3.0 % Normal [facility] Comment on above: Performed By: #### C BCA, CMP, 1833-07, , FEPR, 2276-4, 2283-8, 2132-03, TSHR #### [facility] ([id number]) [address], [address] [address] MCH (RBC) [Entitic mass] 31.6 pg Normal 27-34 [facility] Comment on above: Performed By: #### C BCA, CMP, 1833-07, , FEPR, 2276-4, 2284-8, 9, TSHR #### [facility] ([id number]) [address], [address] [place] [address] MCHC (RBC) [Mass/Vol] 34.1 g/dL Normal 32-36 [facility] Comment on above: Performed By: #### C BCA, CMP, 1833-07, , FEPR, 2276-4, 2284-8, 2132-03, TSHR #### [facility] ([id number]) [address], [address] [place] [address] MCV (RBC) [Entitic vol] 93 fL Normal 80-100 [facility] Comment on above: Performed By: #### C BCA, CMP, 1833-, 81486-6, FEPR, 6-4, 2283-8, 2132-03, TSHR #### [facility] ([id number]) [address], [address] [place] [address] Monocytes (Bld) [#/Vol] 1.0 10*3/uL High 0-0.9 [facility] Comment on above: Performed By: #### C BCA, CMP, 1833-, 94860-9, FEPR, 2275-4, 8, 2132-03, TSHR #### [facility] ([id number]) [address], [address] [place] [address] Monocytes/100 WBC (Bld) 11.5 % Normal P [facility] Comment on above: Performed By: #### C BCA, CMP, 1833-, , FEPR, 2275-4, 2283-8, 2132-03, TSHR #### [facility] ([id number]) [address], [address] [place] [address] Neutrophils/100 WBC (Bld) 84.0 % Normal [facility] Comment on above: Performed By: #### C BCA, CMP, 1833-, 66649-4, FEPR, 6-4, 2283-8, 2132-03, TSHR #### [facility] ([id number]) [address], [address] [place] [address] Platelet mean volume (Bld) [Entitic vol] 7.8 fL Normal 7-12 [facility] Comment on above: Performed By: #### C BCA, CMP, 1833-, 30308-8, FEPR, 2276-4, 2284-8, 2131-9, TSHR #### [facility] ([id number]) [address], [address] [place] [address] Platelets (Bld) [#/Vol] 190 10*3/uL Normal 150-450 [facility] Comment on above: Performed By: #### C BCA, CMP, 1833-, 73199-9, FEPR, 2276-4, 2284-8, 2131-9, TSHR #### [facility] ([id number]) [address], [address] [address] POLYCHROMASIA 1+ Abnormal NONE [facility] Comment on above: Performed By: #### C BCA, CMP, 1833-, 83494-0, FEPR, 2276-4, 2284-8, 2132-03, TSHR #### [facility] ([id number]) [address], [address] [place] [address] RBC COUNT 2.51 X10E12/L Low 4.10-5.70 [facility] Comment on above: Performed By: #### C BCA, CMP, 1833-, 24353-8, FEPR, 2276-4, 2284-8, 2131-9, TSHR #### [facility] ([id number]) [address], [address] [place] [address] WBC (Bld) [#/Vol] 8.7 10*3/uL Normal 4.0-11.0 [facility] Comment on above: Performed By: #### C BCA, CMP, 1833-, 60238-7, FEPR, 2276-4, 2284-8, 2131-9, TSHR #### [facility] ([id number]) [address] [place] [address] COMPREHENSIVE METABOLIC PANE Zoran 11-05-2023 Albumin [Mass/Vol] 2.6 g/dL Low 3.2-5.3 [facility] Comment on above: Performed By: #### C BCA, CMP, 1834-1, 98004-5, FEPR, 2276-4, 2284-8, 2131-9, TSHR #### [facility] ([id number]) [address], [address] [place] [address] ALP [Catalytic activity/Vol] 268 U/L High 39-130 [facility] Comment on above: Performed By: #### C BCA, CMP, 4-1, 98687-2, FEPR, 2276-4, 2284-8, 2131-9, TSHR #### [facility] ([id number]) [address], [address] [place] [address] ALT [Catalytic activity/Vol] 69 U/L High 0-40 [facility] Comment on above: Performed By: #### C BCA, CMP, 1833-1, 18536-9, FEPR, 2276-4, 2284-8, 2131-9, TSHR #### [facility] ([id number]) [address], [address] [place] [address] Anion gap [Moles/Vol] 9 mmol/L Normal 5-15 [facility] Comment on above: Performed By: #### C BCA, CMP, 1833-1, 17798-5, FEPR, 2276-4, 2284-8, 2131-9, TSHR #### [facility] ([id number]) [address], [address] [place] [address] AST [Catalytic activity/Vol] 87 U/L High 0-41 [facility] Comment on above: Performed By: #### C BCA, CMP, 1834-1, 32693-4, FEPR, 2276-4, 2284-8, 2-9, TSHR #### [facility] ([id number]) [address], [address] [place] [address] Bilirubin [Mass/Vol] 1.7 mg/dL High 0.3-1.[address] [facility] Comment on above: Performed By: #### C BCA, CMP, 1833-, 23452-2, FEPR, 2276-4, 2284-8, 2131-9, TSHR #### [facility] ([id number]) [address], [address] [place] [address] Calcium [Mass/Vol] 8.5 mg/dL Normal 8.5-10.5 [facility] Comment on above: Performed By: #### C BCA, CMP, 1833-07, , FEPR, 2276-4, 2284-8, 2132-03, TSHR #### [facility] ([id number]) [address], [address] [place] [address] Chloride [Moles/Vol] 93 mmol/L Low 98-[address] [facility] Comment on above: Performed By: #### C BCA, CMP, 1833-07, , FEPR, 2276-4, 2284-8, 2132-03, TSHR #### [facility] ([id number]) [address], [address] [place] [address] CO2 [Moles/Vol] 28 mmol/L Normal 22-32 [facility] Comment on above: Performed By: #### C BCA, CMP, 1833-07, , FEPR, 2276-4, 2284-8, 9, TSHR #### [facility] ([id number]) [address], [address] [place] [address] Creatinine [Mass/Vol] 1.64 mg/dL High 0.60-1.30 [facility] Comment on above: Result Comment: METH OD TRACEABLE TO IDMS STANDARD Performed By: #### C BCA, CMP, 1833-07, , FEPR, 2276-4, 2284-8, 2132-03, TSHR #### [facility] ([id number]) [address], [facility] [address] [place] [address] GFR/1.73 sq M.predicted among non-blacks MDRD (S/P/Bld) [Vol rate/Area] 42 mL/min/{1.73_m2} Low >59 [facility] Comment on above: Result Comment: Reported eGFR is based on the CKD-EPI 2020 equation that does not use a race coefficient. Performed By: #### C BCA, CMP, 1833-, 72042-4, FEPR, 2276-4, 2283-8, 2132-03, TSHR #### [facility] ([id number]) [address], [address] [place] [address] Glucose [Mass/Vol] 106 mg/dL High 65-99 [facility] Comment on above: Performed By: #### C BCA, CMP, 1833-07, , FEPR, 2276-4, 2283-8, 2132-03, TSHR #### [facility] ([id number]) [address], [address] [address] Potassium [Moles/Vol] 3.8 mmol/L Normal 3.5-5.0 [facility] Comment on above: Performed By: #### C BCA, CMP, 1833-, , FEPR, 2276-4, 2283-8, 2132-03, TSHR #### [facility] ([id number]) [address], [address] [place] [address] Protein [Mass/Vol] 5.7 g/dL Low 6.0-8.0 [facility] Comment on above: Performed By: #### C BCA, CMP, 1833-, 57744-4, FEPR, 2276-4, 2284-8, 9, TSHR #### [facility] ([id number]) [address], [address] [place] [address] Sodium [Moles/Vol] 130 mmol/L Low 134-146 [facility] Comment on above: Performed By: #### C BCA, CMP, 1833-1, 50696-0, FEPR, 6-4, 2283-8, 2132-03, TSHR #### [facility] ([id number]) [address], [address] [place] [address] Urea nitrogen [Mass/Vol] 35 mg/dL High 5-27 [facility] Comment on above: Performed By: #### C BCA, CMP, 1833-, , FEPR, 2275-4, 2283-8, 2132-03, TSHR #### [facility] ([id number]) [address], [address] [place] [address] MAGNESIUMon 11-05-2023 Magnesium [Mass/Vol] 2.0 mg/dL Normal 1.8-2.[address] [facility] Comment on above: Performed By: #### C BCA, CMP, 1833-, , FEPR, 2275-4, 8, 2132-03, TSHR #### [facility] ([id number]) [address], [address] [place] [address] PROTIME AND INRon 11-05-2023 INR Coag (PPP) [Relative time] 1.2 {INR} High 0.8-1.1 [facility] Comment on above: Performed By: #### C BCA, CMP, 1833-, 80069-9, FEPR, 2275-4, 8, 2132-03, TSHR #### [facility] ([id number]) [address], [address] [place] [address] PT Coag (PPP) [Time] 13.5 s High 9.8-13.[address] [facility] Comment on above: Performed By: #### C BCA, CMP, 1834-1, 24062-1, FEPR, 2276-4, 2284-8, 2132-9, TSHR #### [facility] ([id number]) [address], [address] [place] [address] Amorphous urine sedimenton 0 11-03-2023 Amorphous sediment LM Ql (Urine sed) RARE [facility] Automated epithelial cells c ount in urine sediment (number/area)on 11-03-2023 Epithelial cells Auto (Urine sed) [#/Area] FEW #/LPF NONE/RARE [facility] Automated leukocytes count i n urine sediment (number/area)on 11-03-2023 WBC Auto (Urine sed) [#/Area] 5-10 #/HPF 0-2 [facility] Automated urine sediment [place] cium oxalate crystal count by microscopy (number/high powon 11-03-2023 Calcium oxalate crystals LM.HPF (Urine sed) [#/Area] RARE [facility] Automated urine specific gra vity by refractometryon 11-03-2023 Specific gravity Refractometry automated (U) [Rel density] 1.020 1.005-1.025 [facility] Bilirubin Auto test strip (U ) [Mass/Vol]on 11-03-2023 Bilirubin (U) [Mass/Vol] Negative NEGATIVE [facility] Casts typing in urine sedime nt by light microscopyon 11-03-2023 Casts LM Nom (Urine sed) NONE SEEN #/LPF NONE S EEN [facility] Color Auto (U)on 11-03-2023 Color (U) LT. YELLOW YELLOW [facility] Erythrocyte distribution wid th Auto (RBC) [Ratio]on 11-03-2023 Erythrocyte distribution width (RBC) [Ratio] 13.7 % 11.0-15.0 [facility] Estimated glomerular filtrat ion rate (GFR) non- Americanon 11-03-2023 GFR/1.73 sq M.predicted among non-blacks MDRD (S/P/Bld) [Vol rate/Area] 25 mL/min/{1.73_m2} >=60 [facility] Hematocrit Auto (Bld) [Volum e fraction]on 11-03-2023 Hematocrit (Bld) [Volume fraction] 34.3 % 42.0-54.0 [facility] Hemoglobin [Mass/volume] in Bloodon 11-03-2023 Hemoglobin (Bld) [Mass/Vol] 11.0 g/dL 14.0-18.0 [facility] Ketones Auto test strip (U) [Mass/Vol]on 11-03-2023 Ketones (U) [Mass/Vol] Negative NEGATIVE [facility] and C hemistry - challengeon 11-03-2023 Albumin [Mass/Vol] 3.5 g/dL 3.4-5.0 [facility] Calcium [Mass/Vol] 9.0 mg/dL 8.5-10.1 [facility] Chloride [Moles/Vol] 99 mmol/L 98-107 [facility] CO2 [Moles/Vol] 22.2 mmol/L 21.0-32.0 [facility] Creatinine [Mass/Vol] 2.48 mg/dL 0.70-1.30 [facility] GFR/1.73 sq M.predicted MDRD (S/P/Bld) [Vol rate/Area] 31 mL/min/{1.73_m2} >=60 [facility] Glucose [Mass/Vol] 137 mg/dL 74-106 [facility] Magnesium [Mass/Vol] 1.5 mg/dL 1.8-2.4 [facility] Potassium [Moles/Vol] 4.8 mmol/L 3.5-5.1 [facility] Sodium [Moles/Vol] 133 mmol/L 136-145 [facility] Urea nitrogen [Mass/Vol] 42.0 mg/dL 7.0-18.0 [facility] Urea nitrogen/Creatinine [Mass ratio] 16.9 mg/mg [facility] Leukocytes [#/volume] correc ronald for nucleated erythrocytes in Blood by Automated counon 11-03-2023 WBC corrected for nucl RBC Auto (Bld) [#/Vol] 5.9 10 3/uL 4.0-11.0 [facility] MCH Auto (RBC) [Entitic mass ]on 11-03-2023 MCH (RBC) [Entitic mass] 30.0 pg 25.9-34.0 [facility] MCHC Auto (RBC) [Mass/Vol]on 11-03-2023 MCHC (RBC) [Mass/Vol] 32.1 g/dL 29.9-35.2 [facility] MCV Auto (RBC) [Entitic vol] on 11-03-2023 MCV (RBC) [Entitic vol] 93.5 fL 80.0-94.0 [facility] Microalbumin [Mass/volume] i n Urineon 11-03-2023 Albumin DL <= 20 mg/L (U) [Mass/Vol] 20.1 mg/dL <=30.0 [facility] Mucus LM Ql (Urine sed)on Mucus Ql (Urine sed) NONE SEEN NONE SEEN [facility] No Panel Informationon 11-02 Phosphorus Level 3.9 mg/dL 2.6-4.7 [facility] Urine Random Creatinine 54.23 mg/dL 20.0 0-300.0 0 [facility] Platelet mean volume Auto (B ld) [Entitic vol]on 11-03-2023 Platelet mean volume (Bld) [Entitic vol] 10.3 fL 9.5-13.5 [facility] Platelets Auto (Bld) [#/Vol] on 11-03-2023 Platelets (Bld) [#/Vol] 144 10 3/uL 150-450 [facility] Protein Auto test strip (U) [Mass/Vol]on 11-03-2023 Protein (U) [Mass/Vol] 100 mg/dL NEG/TRACE [facility] RBC Auto (Bld) [#/Vol]on RBC (Bld) [#/Vol] 3.67 10 6/uL 4.70-6.10 [facility] Serum or plasma anion gap de terminationon 11-03-2023 Anion gap [Moles/Vol] 16.6 mmol/L [facility] Specific gravity Auto test s trip (U) [Rel density]on 11-03-2023 Specific gravity (U) [Rel density] CLEAR CLEAR [facility] Urine bacteria detection by automated methodon 11-03-2023 Bacteria Auto Ql (U) LARGE #/HPF NONE SEEN [facility] Urine glucose measurement by test strip (mass/volume)on 11-03-2023 Glucose Test strip (U) [Mass/Vol] Negative NEGATIVE [facility] Urine hemoglobin detection b y automated test stripon 11-03-2023 Hemoglobin Auto test strip Ql (U) LARGE NEGATIVE [facility] Urine microalbumin/creatinin e mass ratioon 11-03-2023 Albumin/Creatinine DL <= 20 mg/L (U) [Mass ratio] 370.6 mg/g 0.0-29.9 [facility] Comment on above: NO MICROALBUMINURIA 0-29 MG/GCLINICAL MICROALBUMINURIA 30-300 MG/GMACROALBUMINURIA >300 MG/G Urine nitrite detection by a utomated test stripon 11-03-2023 Nitrite Auto test strip Ql (U) MODERATE NEGATIVE [facility] Nitrite Auto test strip Ql (U) Positive NEGATIVE [facility] Urine sediment crystal ident ification by light microscopyon 11-03-2023 Crystals LM Nom (Urine sed) Seen #/HPF None Seen [facility] Urine sediment leukocyte cou nt by microscopy (number/high power field)on 11-03-2023 WBC LM.HPF (Urine sed) [#/Area] 10-20 #/HPF NONE SEEN [facility] Urobilinogen Auto test strip (U) [Mass/Vol]on 11-03-2023 Urobilinogen Qn (U) 0.2 {Raffi'U}/dL 0.2-1.0 [facility] pH Auto test strip (U)on pH (U) 7.5 [pH] 5.0-9.0 [facility] Physician Orderon 10-31-2023 Physician Order [id number]#[id number] 0TIFF Normal [facility] Reminderson 10-31-2023 Reminders - From: Sierra Rizzo To: EU - Recalls Venegas; Cc: Sierra Rizzo; Sent: 07/08/2023 09:01:46 EST Show up: 08/28/2023 09:01:00 EST Subject: Neph tube change Due Date/Time: 09/22/2023 09:01:00 EST Reminder/Recall Patient is due in September 2023 for 3 month RT neph tube change at [facility] Patient had neph tube changed in Jul by Dr. Holland due to problems. Pt will be due in October 2023.LG Spoke to pt, he is available all month. l/m on [facility] interventional sched vm to sched.LG Kamala called back, pt sched for 11/20/23 @ 8am, Order faxed . new thread. Normal [facility] Office Visiton 10-07-2023 Follow-up visit [id number] Mykel Olivera 1940 M Date Provider Department Center 10/07/2023 [place] [facility] [facility] No family history on file Level of Service:91164 ME OFFICE/OUTPATIENT ESTABLISHED LOW MDM 20 MIN Normal [facility] Physician Orderon 08-06-2023 Physician Order [id number]#[id number] 0TIFF Normal [facility] Capillary blood glucose cecilia urement by glucometer (mass/volume)Ordered By: PROVIDER TEMP on 08-05-2023 Glucose [Mass/Vol] 138 mg/dL Normal [facility] Comment on above: Random Glucose Refer ence Range is dependent on time and content of last meal. Glucose of more than 200 mg/dL in a nonstressed, ambulatory subject supports the diagnosis of Diabetes Mellitus. Result Comment: [facility] Glucose Reference Range is dependent on time and content of last meal. Glucose of more than 200 mg/dL in a nonstressed, ambulatory subject supports the diagnosis of Diabetes Mellitus. PERFORMED BY: [address] [place] [address] PATHOLOGIST LEASING CONSULTANT CAMI RAYA M.D. Performed By: #### G LULS #### Point of Care testing , ECG 12 lead ECGon 08-05-2023 ECG 12 lead ECG [facility] Main [place] [id number] Electrocardiograph Report Signed Patient: Mykel Olivera MR#: [id number] : 1940 Acct:[id number] Age/Sex: 83 / M ADM Date: 08/05/23 Loc: ER Room: Type: [facility] Attending Dr: Ordering Provider: Jose D [...] available Confirmed by JOSE D HERCULES MD ([id number]) on 08/05/2023 5:39:43 AM Referred By: Electronically Signed By:JOSE D HERCULES MD Transcribed By: MUS Signed By Jose D Hercules Jr, MD 0539 Normal [facility] RAD - MISCon 07-29-2023 RAD - MIS [id number] 0TIFF Normal [facility] IR nephrostomy tube chg UNon 07-25-2023 [place] [address] Interventional Radiology Rpt Signed Patient: Mykel Olivera MR#: [id number] : 1940 Acct:[id number] Age/Sex: 83 / M ADM Date: 07/25/23 Loc: IR Room: Type: [facility] Attending Dr: Kami Venegas MD Copies [...] nephrostomy tube. The tube was removed. 12 Belgian RIGHT nephrostomy tube was administered with a wire guidance. The tube is in adequate position and was locked. Contrast was administered confirming adequate position. No immediate complications. IR/IR nephrostomy tube chg UN IMPRESSION: Adequate exchange of 12 Belgian RIGHT nephrostomy tube. Impression dictated by: Declan Moreira M.D.07/25/2023 11:15 AM Dictation Location: [place] [address] Transcribed By: [facility] [facility] 07/25/23 111 Dictated By: Declan Moreira DO 07/25/23 1109 Signed By: 07/25/23 1115 Normal [facility] Physician Orderon 07-08-2023 Physician Order [id number] 0TIFF Normal [facility] BUNon 12-24-2022 Urea nitrogen [Mass/Vol] 40.0 mg/dL Critically high 7.0-18 .0 [facility] Comment on above: Performed By: #### H H #### [facility] [address] [place] [address] Dr. Lilly Cordova CREATININEon 12-24-2022 Creatinine [Mass/Vol] 2.33 mg/dL Critically high 0.70-1.30 [facility] Comment on above: Performed By: #### H H #### [facility] [address] [place] [address] Dr. Lilly Cordova EGFR-AF MAURITANIAN 33 mL/min/1.73m2 Critically low >=60 [facility] Comment on above: Performed By: #### H H #### [facility] [address] [place] [address] Dr. Lilly Cordova EGFR-NON AF MAURITANIAN 27 mL/min/1.73m2 Critically low >=60 [facility] Comment on above: Performed By: #### H H #### [facility] [address] [place] [address] ABD/PELVIS WO CONon [...] by: GUSTAVO BUSTILLO Date: 2022-12-24 10:21 Normal [facility] XR KUB 1 VIEWon 11-12-2022 [...] BETZY JAMES Date: 2022-11-12 10:01 Normal [facility] CULTURE URINEon 11-07-2022 CULTURE URINE [...] F Trimethoprim/Sulfameth oxazole <=20 S F Normal [facility] Comment on above: Performed By: #### H H #### [facility] [address] [place] [address] Dr. Lilly Cordova PTH INTACTon 11-05-2022 PTH, Intact 46 pg/mL Normal 15-65 [facility] Comment on above: Performed By: #### P THINT #### [facility] [address] [place] [address] Dr. Lilly Cordova ALBUMINon 11-04-2022 Albumin [Mass/Vol] 3.6 g/dL Normal 3.4-5.0 [facility] Comment on above: Performed By: #### B MP, PHOS, MG, ALB, URIC #### [facility] [address] [place] [address] Dr. Lilly Cordova HEMOGRAM AND PLATELon 2022 Hematocrit (Bld) [Volume fraction] 34.7 % Critically low 42.0-54.0 [facility] Comment on above: Performed By: #### H H #### [facility] [address] [place] [address] Dr. Lilly Cordova Hemoglobin (Bld) [Mass/Vol] 11.7 g/dL Critically low 14.0-18.0 [facility] Comment on above: Performed By: #### H H #### [facility] [address] [place] [address] Dr. Lilly Cordova MCH (RBC) [Entitic mass] 31.0 pg Normal 25.9-34.0 [facility] Comment on above: Performed By: #### H H #### [facility] [address] [place] [address] Dr. Lilly Cordova MCHC (RBC) [Mass/Vol] 33.7 g/dL Normal 29.9-35.2 [facility] Comment on above: Performed By: #### H H #### [facility] [address] [place] [address] Dr. Lilly Cordova MCV (RBC) [Entitic vol] 91.8 fL Normal 80.0-94.0 [facility] Comment on above: Performed By: #### H H #### [facility] [address] [place] [address] Dr. Lilly Cordova PLT 129 103/ul Critically low 150-450 [facility] Comment on above: Performed By: #### H H #### [facility] [address] [place] [address] Dr. Lilly Cordova RBC 3.78 106/ul Critically low 4.70-6.10 [facility] Comment on above: Performed By: #### H H #### [facility] [address] [place] [address] Dr. Lilly Cordova WBC 6.2 103/ul Normal 4.0-11.0 [facility] Comment on above: Performed By: #### H H #### [facility] [address] [place] [address] Dr. Lilly Cordova MAGNESIUMon 11-04-2022 Magnesium [Mass/Vol] 1.5 mg/dL Critically low 1.8-2.4 [facility] Comment on above: Performed By: #### B MP, PHOS, MG, ALB, URIC #### [facility] [address] [place] [address] Dr. Lilly Cordova MICROALB CREAT RATIO RANDOMo n 11-04-2022 mALB 13.5 mg/L Normal <=30.0 [facility] Comment on above: Performed By: #### M CRR #### [facility] [address] [place] [address] Dr. Lilly Cordova MALB CR RATIO 238.9 mg/g Critically high 0.0-29.9 [facility] Comment on above: Performed By: #### M CRR #### [facility] [address] [place] [address] Dr. Lilly Cordova MALB CR RATIO RANGE SEE BELOW Normal [facility] Comment on above: Result Comment: NO M ICROALBUMINURIA 0-29 MG/G CLINICAL MICROALBUMINURIA 30-300 MG/G MACROALBUMINURIA >300 MG/G Performed By: #### M CRR #### [facility] [address] [place] [address] Dr. Lilly Cordova URINE CREAT 56.52 mg/dL Normal 20.00-300.0 0 [facility] Comment on above: Performed By: #### M CRR #### [facility] [address] [place] [address] Dr. Lilly Cordova PHOSPHORUSon 11-04-2022 Phosphate [Mass/Vol] 3.0 mg/dL Normal 2.6-4.7 [facility] Comment on above: Performed By: #### B MP, PHOS, MG, ALB, URIC #### [facility] [address] [place] [address] Dr. Lilly Cordova PROF CHEM 8 (BAS METB)on Anion gap [Moles/Vol] 13.0 mmol/L Normal [facility] Comment on above: Performed By: #### B MP, PHOS, MG, ALB, URIC #### [facility] [address] [place] [address] Dr. Lilly Cordova Calcium [Mass/Vol] 9.1 mg/dL Normal 8.5-10.1 [facility] Comment on above: Performed By: #### B MP, PHOS, MG, ALB, URIC #### [facility] [address] [place] [address] Dr. Lilly Cordova Chloride [Moles/Vol] 102 mmol/L Normal 98-107 [facility] Comment on above: Performed By: #### B MP, PHOS, MG, ALB, URIC #### [facility] [address] [place] [address] Dr. Lilly Cordova CO2 [Moles/Vol] 25.0 mmol/L Normal 21.0-32.0 [facility] Comment on above: Performed By: #### B MP, PHOS, MG, ALB, URIC #### [facility] [address] [place] [address] Dr. Lilly Cordova Creatinine [Mass/Vol] 1.79 mg/dL Critically high 0.70-1.30 [facility] Comment on above: Performed By: #### B MP, PHOS, MG, ALB, URIC #### [facility] [address] [place] [address] Dr. Lilly Cordova EGFR-AF MAURITANIAN 45 mL/min/1.73m2 Critically low >=60 [facility] Comment on above: Performed By: #### B MP, PHOS, MG, ALB, URIC #### [facility] [address] [place] [address] Dr. Lilly Cordova EGFR-NON AF MAURITANIAN 37 mL/min/1.73m2 Critically low >=60 [facility] Comment on above: Performed By: #### B MP, PHOS, MG, ALB, URIC #### [facility] [address] [place] [address] Dr. Lilly Cordova Glucose [Mass/Vol] 106 mg/dL Normal 74-106 [facility] Comment on above: Performed By: #### B MP, PHOS, MG, ALB, URIC #### [facility] [address] [place] [address] Dr. Lilly Cordova Potassium [Moles/Vol] 5.0 mmol/L Normal 3.5-5.1 [facility] Comment on above: Performed By: #### B MP, PHOS, MG, ALB, URIC #### [facility] [address] [place] [address] Dr. Lilly Cordova Sodium [Moles/Vol] 135 mmol/L Critically low 136-145 [facility] Comment on above: Performed By: #### B MP, PHOS, MG, ALB, URIC #### [facility] [address] [place] [address] Dr. Lilly Cordova Urea nitrogen [Mass/Vol] 35.0 mg/dL Critically high 7.0-18 .0 [facility] Comment on above: Performed By: #### B MP, PHOS, MG, ALB, URIC #### [facility] [address] [place] [address] Dr. Lilly Cordova Urea nitrogen/Creatinine [Mass ratio] 19.6 mg/mg Normal [facility] Comment on above: Performed By: #### B MP, PHOS, MG, ALB, URIC #### [facility] [address] [place] [address] Dr. Lilly Cordova UA (CLEAN/CATCH) PROGRAM CONTROL ANALYST/MICRO I F IND.on 11-04-2022 Bilirubin Ql (U) Negative Normal NEGATIVE [facility] Comment on above: Performed By: #### H H #### [facility] [address] [place] [address] Dr. Lilly Cordova Clarity (U) CLEAR Normal CLEAR [facility] Comment on above: Performed By: #### H H #### [facility] [address] [place] [address] Dr. Lilly Cordova Color (U) LT. YELLOW Normal YELLOW [facility] Comment on above: Performed By: #### H H #### [facility] [address] [place] [address] Dr. Lilly Cordova Glucose Ql (U) Negative Normal NEGATIVE [facility] Comment on above: Performed By: #### H H #### [facility] [address] [place] [address] Dr. Lilly Cordova Hemoglobin Ql (U) MODERATE Abnormal NEGATIVE [facility] Comment on above: Performed By: #### H H #### [facility] [address] [place] [address] Dr. Lilly Cordova Ketones Ql (U) Negative Normal NEGATIVE [facility] Comment on above: Performed By: #### H H #### [facility] [address] [place] [address] Dr. Lilly Cordova LEUKOCYTES MODERATE Abnormal NEGATIVE [facility] Comment on above: Performed By: #### H H #### [facility] [address] [place] [address] Dr. Lilly Cordova Nitrite Ql (U) Positive Abnormal NEGATIVE [facility] Comment on above: Performed By: #### H H #### [facility] [address] [place] [address] Dr. Lilly Cordova pH (U) 7.5 [pH] Normal 5-9 [facility] Comment on above: Performed By: #### H H #### [facility] [address] [place] [address] Dr. Lilly Cordova SPEC GRAVITY 1.010 Normal 1.005-<=1.0 25 [facility] Comment on above: Performed By: #### H H #### [facility] [address] [place] [address] Dr. Lilly Codrova UA PROTEIN 30 mg/dl Abnormal NEGATIVE/ TRACE [facility] Comment on above: Performed By: #### H H #### [facility] [address] [place] [address] Dr. Lilly Cordova UR MICRO IND INDICATED Normal [facility] Comment on above: Performed By: #### H H #### [facility] [address] [place] [address] Dr. Lilly Cordova Urobilinogen Qn (U) 0.2 {Raffi'U}/dL Normal 0.2 - 1. 0 [facility] Comment on above: Performed By: #### H H #### [facility] [address] [place] [address] Dr. Lilly Cordova URIC ACID SERUMon 11-04-2022 Urate [Mass/Vol] 5.2 mg/dL Normal 3.5-7.2 [facility] Comment on above: Performed By: #### B MP, PHOS, MG, ALB, URIC #### [facility] [address] [place] [address] Dr. Lilly Cordova URINE MICROSCOPIC ONLYon BACTERIA TRACE Abnormal NONE SEEN [facility] Comment on above: Performed By: #### H H #### [facility] [address] [place] [address] Dr. Lilly Cordova Bacteria identified Cx Nom (U) INDICATED Normal [facility] Comment on above: Performed By: #### H H #### [facility] [address] [place] [address] Dr. Lilly Cordova CAST NONE SEEN Normal NONE SEEN [facility] Comment on above: Performed By: #### H H #### [facility] [address] [place] [address] Dr. Lilly Cordova Crystals LM Nom (Urine sed) NONE SEEN Normal NONE SEEN [facility] Comment on above: Performed By: #### H H #### [facility] [address] [place] [address] Dr. Lilly Cordova Epithelial cells LM Ql (Urine sed) NONE SEEN Normal NONE SEEN /RARE [facility] Comment on above: Performed By: #### H H #### [facility] [address] [place] [address] Dr. Lilly Cordova MUCOUS NONE SEEN Normal NONE SEEN [facility] Comment on above: Performed By: #### H H #### [facility] [address] [place] [address] Dr. Lilly Cordova RBC 2-5 Abnormal 0-2 [facility] Comment on above: Performed By: #### H H #### [facility] [address] [place] [address] Dr. Lilly Cordova WBC 10-20 Abnormal NONE SEEN [facility] Comment on above: Performed By: #### H H #### [facility] [address] [place] [address] Dr. Lilly Cordova VITAMIN D 25 OHon 11-04-2022 VIT D 25-OH 58.3 ng/mL Normal [facility] Comment on above: Performed By: #### H H #### [facility] Laboratory [address] [place] [address] Dr. Lilly Cordova VIT D RANGES SEE BELOW Normal [facility] Comment on above: Result Comment: <20 ng/mL Vit D deficient 20 - <30 ng/mL Vit D insufficient 30 - 100 ng/mL Vit D sufficient >100 ng/mL Potential Toxicity Performed By: #### H H #### [facility] [address] [place], [place] [id number] Dr. Lilly Cordova HEMOGLOBINon 07-10-2022 Hemoglobin (Bld) [Mass/Vol] 11.6 g/dL Critically low 14.0-18.0 [facility] Comment on above: Performed By: #### H GB #### [facility] [address] [place] [address] Dr. Lilly Cordova NM STRESS/REST MULTIon 06-03 NM STRESS/REST MULTI Patient: MYKEL OLIVERA Exam Date: 06/03/2022 : 1940 Gender:M Ordering : ZOILA ROQUE [facility] Admission #: [id number] Family : Order #: [id number] CLICK HERE TO VIEW EXAM RADIOLOGY REPORT [...] Holland MD on 06/04/2022 at 07:50 Normal [facility] PROF CHEM 8 (BAS METB)on Anion gap [Moles/Vol] 11.2 mmol/L Normal [facility] Comment on above: Performed By: #### H H #### [facility] [address] [place] [address] Dr. Lilly Cordova Calcium [Mass/Vol] 8.8 mg/dL Normal 8.5-10.1 [facility] Comment on above: Performed By: #### H H #### [facility] [address] [place] [address] Dr. Lilly Cordova Chloride [Moles/Vol] 103 mmol/L Normal 98-107 [facility] Comment on above: Performed By: #### H H #### [facility] [address] [place] [address] Dr. Lilly Cordova CO2 [Moles/Vol] 25.2 mmol/L Normal 21.0-32.0 [facility] Comment on above: Performed By: #### H H #### [facility] [address] [address] [address] Lilly Cordova Creatinine [Mass/Vol] 1.87 mg/dL Critically high 0.70-1.30 [facility] Comment on above: Performed By: #### H H #### [facility] [address] [place] [address] Dr. Lilly Cordova EGFR-AF MAURITANIAN 42 mL/min/1.73m2 Critically low >=60 [facility] Comment on above: Performed By: #### H H #### [facility] [address] [address] [address] Lilly Cordova EGFR-NON AF MAURITANIAN 35 mL/min/1.73m2 Critically low >=60 [facility] Comment on above: Performed By: #### H H #### [facility] [address] [address] [address] Lilly Cordova Glucose [Mass/Vol] 126 mg/dL Critically high 74-106 [facility] Comment on above: Performed By: #### H H #### [facility] [address] [address] [address] Lilly Cordova Potassium [Moles/Vol] 4.4 mmol/L Normal 3.5-5.1 [facility] Comment on above: Performed By: #### H H #### [facility] [address] [address] [address] Lilly Cordova Sodium [Moles/Vol] 135 mmol/L Critically low 136-145 [facility] Comment on above: Performed By: #### H H #### [facility] [address] [address] [address] Lilly Cordova Urea nitrogen [Mass/Vol] 32.0 mg/dL Critically high 7.0-18 .0 [facility] Comment on above: Performed By: #### H H #### [facility] [address] [address] [address] Lilly Cordova Urea nitrogen/Creatinine [Mass ratio] 17.1 mg/mg Normal [facility] Comment on above: Performed By: #### H H #### [facility] [address] [address] [address] Lilly Cordova PTH INTACTon 05-07-2022 PTH, Intact 28 pg/mL Normal 15-65 [facility] Comment on above: Performed By: #### P THINT #### [facility] [address] [address] [address] Lilly Cordova HEMOGRAM AND PLATELon 2021 Hematocrit (Bld) [Volume fraction] 34.2 % Critically low 42.0-54.0 [facility] Comment on above: Performed By: #### H H #### [facility] [address] [address] [address] Lilly Cordova Hemoglobin (Bld) [Mass/Vol] 11.5 g/dL Critically low 14.0-18.0 [facility] Comment on above: Performed By: #### H H #### [facility] [address] [place] [address] Dr. Lilly Cordova MCH (RBC) [Entitic mass] 31.3 pg Normal 25.9-34.0 [facility] Comment on above: Performed By: #### H H #### [facility] [address] [place] [address] Dr. Lilly Cordova MCHC (RBC) [Mass/Vol] 33.6 g/dL Normal 29.9-35.2 [facility] Comment on above: Performed By: #### H H #### [facility] [address] [place] [address] Dr. Lilly Cordova MCV (RBC) [Entitic vol] 93.2 fL Normal 80.0-94.0 [facility] Comment on above: Performed By: #### H H #### [facility] [address] [place] [address] Dr. Lilly Cordova PLT 130 103/ul Critically low 150-450 [facility] Comment on above: Performed By: #### H H #### [facility] [address] [place] [address] Dr. Lilly Cordova RBC 3.67 106/ul Critically low 4.70-6.10 [facility] Comment on above: Performed By: #### H H #### [facility] [address] [place] [address] Dr. Lilly Cordova WBC 6.5 103/ul Normal 4.0-11.0 [facility] Comment on above: Performed By: #### H H #### [facility] [address] [place] [address] Dr. Lilly Cordova MAGNESIUMon 05-06-2022 Magnesium [Mass/Vol] 1.4 mg/dL Critically low 1.8-2.4 [facility] Comment on above: Performed By: #### P THINT #### [facility] [address] [place] [address] Dr. Lilly Cordova PHOSPHORUSon 05-06-2022 Phosphate [Mass/Vol] 3.0 mg/dL Normal 2.6-4.7 [facility] Comment on above: Performed By: #### P THINT #### [facility] [address] [address] [address] Lilly Cordova PROF CHEM 8 (BAS METB)on Anion gap [Moles/Vol] 10.5 mmol/L Normal [facility] Comment on above: Performed By: #### P THINT #### [facility] [address] [place] [address] Dr. Lilly Cordova Calcium [Mass/Vol] 9.1 mg/dL Normal 8.5-10.1 [facility] Comment on above: Performed By: #### P THINT #### [facility] [address] [place] [address] Dr. Lilly Cordova Chloride [Moles/Vol] 103 mmol/L Normal 98-107 [facility] Comment on above: Performed By: #### P THINT #### [facility] [address] [place] [address] Dr. Lilly Cordova CO2 [Moles/Vol] 27.9 mmol/L Normal 21.0-32.0 [facility] Comment on above: Performed By: #### P THINT #### [facility] [address] [place] [address] Dr. Lilly Cordova Creatinine [Mass/Vol] 1.77 mg/dL Critically high 0.70-1.30 [facility] Comment on above: Performed By: #### P THINT #### [facility] [address] [place] [address] Dr. Lilly Cordova EGFR-AF MAURITANIAN 45 mL/min/1.73m2 Critically low >=60 [facility] Comment on above: Performed By: #### P THINT #### [facility] [address] [place], [place] [address] Dr. Lilly Cordova EGFR-NON AF MAURITANIAN 37 mL/min/1.73m2 Critically low >=60 [facility] Comment on above: Performed By: #### P THINT #### [facility] [address] [address] [address] Lilly Cordova Glucose [Mass/Vol] 98 mg/dL Normal 74-106 [facility] Comment on above: Performed By: #### P THINT #### [facility] [address] [address] [address] Lilly Cordova Potassium [Moles/Vol] 5.4 mmol/L Critically high 3.5-5.1 [facility] Comment on above: Performed By: #### P THINT #### [facility] [address] [address] [address] Lilly Cordova Sodium [Moles/Vol] 136 mmol/L Normal 136-145 [facility] Comment on above: Performed By: #### P THINT #### [facility] [address] [address] [address] Lilly Cordova Urea nitrogen [Mass/Vol] 30.0 mg/dL Critically high 7.0-18 .0 [facility] Comment on above: Performed By: #### P THINT #### [facility] [address] [place] [address] Dr. Lilly Cordova Urea nitrogen/Creatinine [Mass ratio] 16.9 mg/mg Normal [facility] Comment on above: Performed By: #### P THINT #### [facility] [address] [address] [address] Lilly Cordova URIC ACID SERUMon 05-06-2022 Urate [Mass/Vol] 5.2 mg/dL Normal 3.5-7.2 [facility] Comment on above: Performed By: #### P THINT #### [facility] [address] [place] [address] Dr. Lilly Cordova VITAMIN D 25 OHon 05-06-2022 VIT D 25-OH 56.4 ng/mL Normal [facility] Comment on above: Performed By: #### V ITAD #### [facility] [address] [place], [place] [address] Dr. Lilly Cordova VIT D RANGES SEE BELOW Normal [facility] Comment on above: Result Comment: <20 ng/mL Vit D deficient 20 - <30 ng/mL Vit D insufficient 30 - 100 ng/mL Vit D sufficient >100 ng/mL Potential Toxicity Performed By: #### V ITAD #### [facility] [address] [place], [place] [address] Dr. Lilly Cordova ECHOCARDIO M/2D COMPLETEon 0 04-16-2022 ECHOCARDIO M/2D COMPLETE Patient: MYKEL OLIVERA Exam Date: 04/16/2022 : 1940 Gender:M Ordering : LEANNA CROSS Admission #: [id number] Family : DR BENSON HERCULES D.O. Order #: [id number] CLICK HERE TO VIEW EXAM ECHOCARDIOGRAM REPORT [...] Gregg M.D. on 04/18/2022 at 16:09 Normal [facility] Vital Signs Date Time Vital Sign Value Performing Clinician Facility 06-09-2024 08:23-0500 Body height 182.88 cm [facility] 06-09-2024 08:23-0500 Body mass index (BMI) [Ratio] 20.5 kg/m2 [facility] 06-09-2024 08:23-0500 Body weight 68.49 kg [facility] 06-09-2024 08:23-0500 Diastolic blood pressure 80 mm[Hg] [facility] 06-09-2024 08:23-0500 Heart rate 93 /min [facility] 06-09-2024 08:23-0500 SaO2% (BldA) [Mass fraction] 98 % [facility] 06-09-2024 08:23-0500 Systolic blood pressure 148 mm[Hg] [facility] 04-02-2024 09:59-0400 Body height 182.88 cm DO Benson Ball Work Phone: [facility] 04-02-2024 09:59-0400 Body mass index (BMI) [Ratio] 22.2 kg/m2 DO Benson Ball Work Phone: [facility] 04-02-2024 09:59-0400 Body weight 74.44 kg DO Benson Ball Work Phone: [facility] 04-02-2024 09:59-0400 Diastolic blood pressure 76 mm[Hg] DO Benson Ball Work Phone: [facility] 04-02-2024 09:59-0400 Heart rate 85 /min DO Benson Ball Work Phone: [facility] 04-02-2024 09:59-0400 Respiratory rate 12 /min DO Benson Ball Work Phone: [facility] 04-02-2024 09:59-0400 Systolic blood pressure 176 mm[Hg] DO Benson Ball Work Phone: [facility] 12-31-2023 10:49-0400 Body height 182.88 cm DO Benson Ball Work Phone: [facility] 12-31-2023 10:49-0400 Body mass index (BMI) [Ratio] 23.3 kg/m2 DO Benson Ball Work Phone: [facility] 12-31-2023 10:49-0400 Body weight 78.24 kg DO Benson Ball Work Phone: [facility] 12-31-2023 10:49-0400 Diastolic blood pressure 80 mm[Hg] DO Benson Ball Work Phone: [facility] 12-31-2023 10:49-0400 Heart rate 86 /min DO Benson Ball Work Phone: [facility] 12-31-2023 10:49-0400 Respiratory rate 12 /min DO Benson Ball Work Phone: [facility] 12-31-2023 10:49-0400 Systolic blood pressure 193 mm[Hg] DO Benson Ball Work Phone: [facility] 09-30-2023 10:26-0500 Body height 182.88 cm DO Benson Ball Work Phone: [facility] 09-30-2023 10:26-0500 Body mass index (BMI) [Ratio] 23.6 kg/m2 DO Benson Ball Work Phone: [facility] 09-30-2023 10:26-0500 Body weight 79.09 kg DO Benson Ball Work Phone: [facility] 09-30-2023 10:26-0500 Diastolic blood pressure 65 mm[Hg] DO Benson Ball Work Phone: [facility] 09-30-2023 10:26-0500 Heart rate 93 /min DO Benson Ball Work Phone: [facility] 09-30-2023 10:26-0500 Respiratory rate 12 /min DO Benson Ball Work Phone: [facility] 09-30-2023 10:26-0500 Systolic blood pressure 167 mm[Hg] DO Benson Ball Work Phone: [facility] 08-05-2023 05:03-0500 Diastolic blood pressure 77 mm[Hg] DO Benson Ball Work Phone: [facility] 08-05-2023 05:03-0500 Heart rate 97 /min DO Benson Ball Work Phone: [facility] 08-05-2023 05:03-0500 Respiratory rate 18 /min DO Benson Ball Work Phone: [facility] 08-05-2023 05:03-0500 SaO2% (BldA) [Mass fraction] 99 % DO Benson Ball Work Phone: [facility] 08-05-2023 05:03-0500 Systolic blood pressure 173 mm[Hg] DO Benson Ball Work Phone: [facility] 08-05-2023 00:36-0500 Body height 182.88 cm DO Benson Ball Work Phone: [facility] 08-05-2023 00:36-0500 Body temperature 97.5 [degF] DO Benson Ball Work Phone: [facility] 08-05-2023 00:36-0500 Body weight 80.9 kg DO Benson Ball Work Phone: [facility] 07-29-2023 10:30-0500 Body height 177.8 cm Benson Ball Other [facility] [employer] Other 07-29-2023 10:30-0500 Body mass index (BMI) [Ratio] 25.57 kg/m2 Benson Ball Other [employer] Other 07-29-2023 10:30-0500 Body weight 80.83 kg Benson Ball Other [employer] Other 07-29-2023 10:30-0500 Diastolic blood pressure 73 mm[Hg] Benson Ball Other [employer] Other 07-29-2023 10:30-0500 Respiratory rate 12 /min Benson Ball Other [employer] Other 07-29-2023 10:30-0500 Systolic blood pressure 191 mm[Hg] Benson Ball Other [employer] Other 04-25-2023 11:30-0400 Body height 177.8 cm Benson Ball Other [employer] Other 04-25-2023 11:30-0400 Body mass index (BMI) [Ratio] 25.42 kg/m2 Benson Ball Other [employer] Other 04-25-2023 11:30-0400 Body weight 80.38 kg Benson Ball Other [employer] Other 04-25-2023 11:30-0400 Diastolic blood pressure 80 mm[Hg] Benson Ball Other [employer] Other 04-25-2023 11:30-0400 Respiratory rate 12 /min Benson Ball Other [employer] Other 04-25-2023 11:30-0400 Systolic blood pressure 150 mm[Hg] Benson Ball Other [employer] Other 01-23-2023 11:00-0400 Body height 177.8 cm Benson Ball Other [employer] Other 01-23-2023 11:00-0400 Body mass index (BMI) [Ratio] 25.57 kg/m2 Benson Ball Other [employer] Other 01-23-2023 11:00-0400 Body weight 80.83 kg Benson Ball Other [employer] Other 01-23-2023 11:00-0400 Diastolic blood pressure 57 mm[Hg] Benson Ball Other [employer] Other 01-23-2023 11:00-0400 Respiratory rate 12 /min Benson Ball Other [employer] Other 01-23-2023 11:00-0400 Systolic blood pressure 146 mm[Hg] Benson Ball Other [employer] Other 10-23-2022 12:00-0400 Body height 177.8 cm Benson Ball Other [employer] Other 10-23-2022 12:00-0400 Body mass index (BMI) [Ratio] 25.82 kg/m2 Benson Ball Other [employer] Other 10-23-2022 12:00-0400 Body weight 81.65 kg Benson Ball Other [employer] Other 10-23-2022 12:00-0400 Diastolic blood pressure 72 mm[Hg] Benson Ball Other [employer] Other 10-23-2022 12:00-0400 Respiratory rate 12 /min Benson Ball Other [employer] Other 10-23-2022 12:00-0400 Systolic blood pressure 158 mm[Hg] Benson Ball Other [employer] Other 07-03-2022 11:14-0500 Body weight 0 kg DO Benson Ball Work Phone: [facility] 03-26-2022 15:15-0400 Body weight 0 kg DO Benson Ball Work Phone: [facility] 12-19-2021 10:04-0400 Body weight 0 kg DO Benson Ball Work Phone: [facility] Encounters Encounter Date Encounter Type Care Provider Facility Start: 08-11-2024 Evaluation and management of inpatient GILBERT OVITT [facility] Start: 08-10-2024 Evaluation and management of inpatient GILBERT MENDOZA [facility] Start: 08-10-2024 Evaluation and management of inpatient DANO [facility] Start: 08-10-2024 Evaluation and management of inpatient DANO [facility] Start: 08-09-2024 Evaluation and management of inpatient KATHLEEN DYLANSAMSON [facility] Start: 08-09-2024 End: 08-12-2024 Evaluation and management of inpatient FAMILIA RAY [facility] Start: 08-02-2024 End: 08-02-2024 ambulatory Benson Hercules DO Work Phone: [facility] Work Phone: Start: 08-02-2024 End: 08-02-2024 Patient encounter procedure Benson Hercules DO Work Phone: [facility] Work Phone: Start: 07-29-2024 Patient encounter procedure Benson Hercules DO Work Phone: [facility] Start: 07-12-2024 End: 07-12-2024 Lab Drop off Kami VENEGAS [facility] Start: 07-12-2024 End: 07-12-2024 ambulatory Kami VENEGAS Facility:[facility] Start: 07-12-2024 End: 07-12-2024 Patient encounter procedure Kami VENEGAS [facility] Start: 06-21-2024 Non-patient / Non-visit Sonya isabella Diomedes DO Work Phone: [facility] Work Phone: Start: 06-17-2024 End: 06-17-2024 Lab Drop off Sarah Shah [facility] Start: 06-17-2024 End: 06-17-2024 ambulatory Sarah Shah Facility:[facility] Start: 06-17-2024 End: 06-17-2024 Patient encounter procedure Kami VENEGAS [facility] Start: 06-15-2024 End: 06-15-2024 Documentation procedure Xiomara aguiar [facility] Start: 06-15-2024 End: 06-15-2024 Telephone encounter Khushi silver [facility] Start: 06-14-2024 End: 06-14-2024 Admission to same day surgery center Benson Hercules DO Work Phone: [facility] Work Phone: Start: 06-14-2024 End: 06-14-2024 ambulatory Benson Hercules Facility:[facility] Start: 06-11-2024 Non-patient / Non-visit Benjam in Ball DO Work Phone: [facility] Work Phone: Start: 06-09-2024 End: 06-09-2024 ambulatory AB [facility] Start: 06-09-2024 End: 06-09-2024 ambulatory [facility] Work Phone: Start: 06-09-2024 End: 06-09-2024 Patient encounter procedure [facility] Work Phone: Start: 06-07-2024 Non-patient / Non-visit [facility] Work Phone: Start: 05-30-2024 End: 06-13-2024 Telephone encounter Caprice Gil Bruce silver Start: 05-26-2024 End: 06-04-2024 Evaluation and management of inpatient UNKNOWN PHYSICIAN [facility] Start: 05-25-2024 Non-patient / Non-visit [facility] Work Phone: Start: 05-25-2024 ambulatory [facility] Start: 05-25-2024 Non-patient / Non-visit [facility] Work Phone: Start: 05-24-2024 Non-patient / Non-visit [facility] Work Phone: Start: 05-24-2024 Non-patient / Non-visit [facility] Work Phone: Start: 05-19-2024 End: 05-19-2024 ambulatory [facility] Start: 05-13-2024 Non-patient / Non-visit [facility] Work Phone: Start: 04-19-2024 End: 04-19-2024 [facility] Start: 04-02-2024 End: 04-02-2024 ambulatory DO Benson Ball Work Phone: [facility] Work Phone: Start: 04-02-2024 End: 04-02-2024 Patient encounter procedure DO Benson Ball Work Phone: [facility] Work Phone: Start: 04-01-2024 End: 04-01-2024 ambulatory Kami VENEGAS Facility:[facility] Start: 04-01-2024 End: 04-01-2024 Lab Drop off Kaim VENEGAS [facility] Start: 04-01-2024 End: 04-01-2024 ambulatory Kami VENEGAS Facility:[facility] Start: 04-01-2024 End: 04-01-2024 Patient encounter procedure Kami VENEGAS [facility] Start: 02-13-2024 End: 02-13-2024 Admission to same day surgery center DO Benson Ball Work Phone: [facility] Work Phone: Start: 02-13-2024 End: 02-13-2024 ambulatory DO Benson Ball Work Phone: [facility] Work Phone: Start: 02-09-2024 End: 02-09-2024 ambulatory Kami VENEGAS Facility::[id number] Start: 02-02-2024 End: 02-02-2024 ambulatory Kami VENEGAS Facility:[facility] Start: 02-02-2024 End: 02-02-2024 Lab Drop off Kami VENEGAS [facility] Start: 02-02-2024 End: 02-02-2024 ambulatory Kami VENEGAS Facility:[facility] Start: 02-02-2024 End: 02-02-2024 Patient encounter procedure Kami R VENEGAS [facility] Start: 12-31-2023 End: 12-31-2023 ambulatory DO Benson Ball Work Phone: [facility] Work Phone: Start: 12-31-2023 End: 12-31-2023 Patient encounter procedure DO Benson Ball Work Phone: [facility] Work Phone: Start: 11-21-2023 End: 11-21-2023 Admission to same day surgery center DO Benson Ball Work Phone: [facility] Work Phone: Start: 11-21-2023 End: 11-21-2023 ambulatory DO Benson Ball Work Phone: [facility] Work Phone: Start: 11-03-2023 Non-patient / Non-visit DO Boone Hercules Work Phone: [facility] [facility] [employer] Work Phone: Start: 10-08-2023 Non-patient / Non-visit DO Boone Hercules Work Phone: [facility] Work Phone: Start: 10-07-2023 End: 10-07-2023 ambulatory ARCADIO NUÑEZ [facility] Start: 09-30-2023 End: 09-30-2023 Patient encounter procedure DO Benson Hercules Work Phone: [facility] Work Phone: Start: 08-14-2023 End: 08-14-2023 Emergency department patient visit LANEY DOWLING [facility] Start: 08-05-2023 End: 08-05-2023 ambulatory Benson Hercules Other [employer] Other Start: 08-05-2023 Telephone encounter Benson Hercules [facility] Start: 08-05-2023 End: 08-05-2023 Emergency department patient visit DO Benson Hercules Work Phone: [facility] Work Phone: Start: 08-01-2023 End: 08-01-2023 ambulatory Benson Hercules Other [employer] Other Start: 08-01-2023 Telephone encounter Benson [facility] Start: 07-29-2023 End: 07-29-2023 ambulatory Benson Hercules Other [employer] Other Start: 07-29-2023 Patient encounter procedure Benson Hercules [facility] Start: 07-29-2023 Telephone encounter Benson Hercules [facility] Start: 07-25-2023 End: 07-25-2023 Admission to same day surgery center DO Benson Ball Work Phone: [facility] Work Phone: Start: 07-25-2023 End: 07-25-2023 ambulatory DO Benson Ball Work Phone: [facility] Work Phone: Start: 05-28-2023 End: 05-28-2023 ambulatory Benson Ball Other [employer] Other Start: 05-28-2023 Telephone encounter Benson Ball [facility] Start: 04-25-2023 End: 04-25-2023 ambulatory Benson Ball Other [employer] Other Start: 04-25-2023 Office outpatient vi sit 25 minutes Benson Ball [facility] Start: 03-28-2023 End: 03-28-2023 ambulatory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 TEST Requesting Physician: Procedure [...] Myocardial perfusion images will be reported separately.[facility] 04-26-2022 Evaluation + Plan note Diagnostic Tests Pending * UroVysion FISH ([facility]) 04/26/22 [facility] 09-12-2022 Evaluation + Plan note Diagnostic Tests Pending * UroVysion Fish and Urine Cyto ([facility]) 04/08/22 [facility] 04-27-2022 Evaluation + Plan note Diagnostic Tests Pending * UroVysion Fish and Urine Cyto ([facility]) 11/21/21 [facility] 04-08-2022 Evaluation + Plan note Diagnostic Tests Pending * UroVysion Fish and Urine Cyto ([facility]) 11/02/21 [facility] evaluation + Plan note Future Appointments Appointment Date:12/03/2022 09:00:00 AM Scheduled Provider: Location:[facility] Appointment Type:URO Nurse Visit [facility] evaluation + Plan note Future Appointments Appointment Date:12/03/2022 09:00:00 AM Scheduled Provider: Location:[facility] Appointment Type:URO Nurse Visit Diagnostic Tests Pending * [facility] assessment information available [facility] Work Phone: Evaluation noteNo [facility] [employer] Other evaluation note* Diagnosis Onset Date Resolution Status Chronic HFrEF (heart failure with reduced ejection fraction) acute Essential hypertension acute Hyperlipidemia type II acute IFG (impaired fasting glucose) acute Ischemic cardiomyopathy acut e Lumbar spondylosis acute Stage 4 chronic kidney disease acute [facility] Work Phone: Evaluation note* Diagnosis Onset Date Resolution Status Chronic HFrEF (heart failure with reduced ejection fraction) acute Essential hypertension acute Hyperlipidemia type II acute IFG (impaired fasting glucose) acute Ischemic cardiomyopathy acut e Lumbar spondylosis acute Opiate analgesic use agreement exists acute Stage 4 chronic kidney disease [facility] Work Phone: Evaluation note* Diagnosis Onset Date Resolution Status Essential hypertension acute Heart failure with improved ejection fraction (HFimpEF ) acute Hyperlipidemia type II acute IFG (impaired fasting glucose) acute Ischemic cardiomyopathy acut e Lumbar spondylosis acute Opiate analgesic use agreement exists acute Stage 4 chronic kidney disease [facility] Work Phone: History general Narrative - Reported* [...] MULTIVESSEL DS 2017 Hospitalization History SEE SURGICAL [employer] Other [facility] general Narrative - Reported* Type Description Date [...] Cystoscopy 11/2022 Hospitalization History SEE SURGICAL HX [employer] Other Hospital course Narrative No data available for this section [facility] Hospital Discharge instructions No data available for this section [facility] Hospital Discharge instructions Additional Instructions I [...] right away so we can clear it out.[facility] Work Phone: InstructionsNot on filedocumented in this encounter [facility]ructionsNot on filedocumented in this encounter [facility] No data available for this section [facility] Summary Purpose Family History No Family [...] CC Adult Risk Stratification June 072023 9:17am [facility] follow up-HIGH RISK June 09, 2024 [...] CC Adult Risk Stratification June 072023 9:17am [facility] follow up-HIGH RISK June 09, 2024 8:19am Amb Documentation June 11, 2024 2:03pm Hydronephrosis. June 14, 2024 7:49am [phone] August 02, 2024 9: 51am Reason for [...] and content) DATE CREATED AUTHOR 10/12/2020 [facility] DATE CREATED AUTHOR AUTHOR'S ORGANIZ ATION 01/07/2023 [facility] DATE CREATED AUTHOR AUTHOR'S ORGANIZ ATION 04/08/2024 [facility] DATE CREATED AUTHOR AUTHOR'S ORGANIZ ATION 04/09/2024 [facility] DATE CREATED AUTHOR AUTHOR'S ORGANIZ ATION 05/28/2024 [facility] DATE CREATED AUTHOR AUTHOR'S ORGANIZ ATION 06/11/2024 [facility] DATE CREATED AUTHOR AUTHOR'S ORGANIZ ATION 06/11/2024 [facility] DATE CREATED AUTHOR AUTHOR'S ORGANIZ ATION 06/19/2024 [facility] DATE CREATED AUTHOR AUTHOR'S ORGANIZ ATION 06/22/2024 [facility] DATE CREATED AUTHOR AUTHOR'S ORGANIZ ATION 07/01/2024 [facility] DATE CREATED AUTHOR AUTHOR'S ORGANIZ ATION 07/14/2024 [facility] DATE CREATED AUTHOR AUTHOR'S ORGANIZ ATION 07/17/2024 [facility] DATE CREATED AUTHOR AUTHOR'S ORGANIZ ATION 07/18/2024 [facility] DATE CREATED AUTHOR AUTHOR'S ORGANIZ ATION 08/13/2024 [facility] Care Teams (unrecognized sec tion and [...] April 02, 2024 End: April 02, 2024 Medical Information Specialist Relationship Specialty Start Date End Date Benson Hercules DO [address] [place] [address] PCP - General Internal Medicine 05/26/24 Medical Information Specialist Relationship Specialty Start Date End Date Benson Hercules DO [address] [place] [address] PCP - General Internal Medicine 05/26/24 Medical Information Specialist Relationship Specialty Start Date End Date Benson Hercules DO [address] [place] [address] PCP - General Internal Medicine 05/26/24 Goals (unrecognized section and content) Goals may be documented in a n alternate section REASON FOR VISIT (unrecogniz ed section and content) [address] acardResultsNo InformationrefillNo InformationNo InformationHolter resultsRefill3 month Follow upMedication QuestionPain Med Refill/IncreaseRefills3 month Follow upRefillTesting [facility] resultsRefill FOR RECORDS PERTAINING TO PATIENTS [...] BE BASED ON THE PRIMARY CLINICAL RECORDS. [employer] provides no warranty or guarantee of the accuracy or completeness of information in this document.
--- NOTE | 2024-08-15 06:00 | PC.NURSE ---
this patient is awake and alert and voices no complaints, the IV ATB will be continued with transport upstairs , patient's did go upstairs with us and she carried the patient belonging.
[2024-08-15] MEDS: APIXABAN 5 MG TABLET 2.5 MG PO ×2 (06:13→17:05)
[2024-08-15] MEDS: ATORVASTATIN CALCIUM 40 MG TABLET PO ×2 (06:13→21:09)
[2024-08-15] MEDS: MORPHINE SULFATE 2 MG/ML SYRINGE IV (06:15)
[2024-08-15 07:49] LABS: Thyroid Stimulating Hormone 1.482 uIU/mL (0.358-3.740)
[2024-08-15] MEDS: METOPROLOL TARTRATE 50 MG TABLET PO ×2 (08:49→21:09)
[2024-08-15] MEDS: FAMOTIDINE/PF 20 MG/2 ML VIAL IV (08:49)
[2024-08-15] MEDS: ISOSORBIDE MONONITRATE 60 MG TAB.ER.24H PO (08:49)
[2024-08-15] MEDS: FERROUS SULFATE 325 MG TABLET PO (08:49)
--- NOTE | 2024-08-15 10:14 | P.HP_ITS ---
HPI H&P: HPI History of Present Illness Chief complaint: SHORTNESS OF BREATH/A FIB/RVR/CHF Narrative: Patient presented to the emergency room with palpitations and increasing cough, found to have a right lower lobe pneumonia, new onset atrial fibrillation, patient was already anticoagulated but is not certain why he is on anticoagulation, with the significant tachycardia, patient was given boluses of Cardizem, transferred to the intensive care unit When I saw patient up in the intensive care unit, resting comfortably in bed did did have a persistent cough throughout the evaluation and some mild conversational dyspnea does complain of back pain, recent hospitalization for lumbar fracture, no surgery performed, also fairly recent cardiac catheterization, he was in the hospital within the last 10 days Opioid HPI Opioid Management Most Recent Pain and Opioid Data: Last Pain Scale 7 08/15/24 10:28 08/15/24 Last Pain Assessment 08/15/24 11:00 Last ED Pain Assessment 08/09/24 16:15 Last MAR Pain Assessment 08/15/24 10:28 Last ORT Total Score 3 08/15/24 06:37 08/15/24 Last ORT Risk Category Low Risk 08/15/24 06:37 08/15/24 Review of Systems ROS Status of ROS 10 or more systems reviewed and unremark able except as noted in history and below PFSH [facility] Medical History (Updated 08/15/24 @ 04:43 by Jerad Eric) Abnormal cystoscopy ?R39.9 - Unspecified symptoms and signs involving the genitourinary system (ICD-10) Bladder cancer ?C67.9 - Malignant neoplasm of bladder, unspecified (ICD-10) Malfunction of nephrostomy tube ?T83.098A - Other mechanical complication of other urinary catheter, initial encounter (ICD-10) Surgical History (Updated 02/04/24 @ 13:08 by Lorena Polo) H/O transurethral resection of bladder tumor (TURBT) ?Z98.890 - Other specified postprocedural states (ICD-10) ?Z86.03 - Personal history of neoplasm of uncertain behavior (ICD-10) H/O transurethral resection of prostate ?Z98.890 - Other specified postprocedural states (ICD-10) ?Z90.79 - Acquired absence of other genital organ(s) (ICD-10) 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 Do you use any of these nicotine containing products: smokeless tobacco Smokeless tobacco user: snuff Non-prescribed substance use: denies use Previous occupational history: [employer] Highest level of school completed/degree received: some college, no degree Little interest or pleasure in doing things: not at all Feeling down, depressed, or hopeless: not at all Meds Home Medications and Allergies Home Medications ?Medication ?Instructions ?Recorded ?Confirmed ?Type apixaban 2.5 mg tablet (Eliquis) 2.5 mg PO Q12H 08/14/23 08/15/24 History atorvastatin 40 mg tablet 40 mg PO BEDTIME 08/14/23 08/15/24 History ferrous sulfate 325 mg (65 mg 325 mg PO DAILY 08/14/23 08/15/24 History iron) tablet (FeroSul) hydralazine 25 mg tablet 25 mg PO Q12H 08/14/23 08/15/24 History oezaybocdoja-ourppfo-orehf acid 1 tab PO DAILY 08/14/23 08/15/24 History 400 mcg-lutein 250 mcg chewable tablet (Centrum Silver) hydrocodone 5 mg-acetaminophen 325 1 tab PO Q6H PRN pain 08/09/24 08/15/24 History mg tablet isosorbide mononitrate 60 mg 60 mg PO DAILY 08/15/24 08/15/24 History tablet,extended release 24 hr methocarbamol 500 mg tablet 500 mg PO TID PRN muscle spasm 08/15/24 08/15/24 History sodium chloride 1,000 mg soluble 1,000 mg PO TID 08/15/24 08/15/24 History tablet spironolactone 25 mg tablet 25 mg PO DAILY 08/15/24 08/15/24 History Allergies Allergy/AdvReac Type Severity Reaction Status Date / Time povidone-iodine (From Allergy Rash Verified 08/15/24 03:53 Betadine) Exam Constitutional Vital Signs, click to edit/add: Last Vital Signs Temp 98.9 F 08/15/24 07:02 Pulse 133 H 08/15/24 09:20 Resp 34 H 08/15/24 09:20 BP 155/91 H 08/15/24 07:54 Pulse Ox 93 L 08/15/24 08:40 O2 Del Method Room Air 08/15/24 08:07 Documenting provider has reviewed patient's vital signs: yes Common normals: apparent distress (Mild conversational dyspnea with cough throughout the eval) Chest Common normals: inspection of chest normal and palpation of chest normal Respiratory Common normals: abnormal respiratory effort (Mild conversational dyspnea with cough throughout the eval) Effort & inspection: tachypneic Auscultation: rhonchi Cardio Common normals: irregular rate and irregular rhythm Rate: tachycardic Rhythm: abnormal rhythm GI Common normals: soft to palpation and non-tender Extremity Common normals: normal to inspection, full ROM, normal capillary refill and no clubbing, cyanosis or edema Results Labs Labs: Short CBC 08/15/24 Range/Units 04:10 WBC 19.5 H (4.0-11.0) 10^3/uL Hgb 10.9 L (14.0-18.0) g/dL Hct 34.9 L (42.0-54.0) % Plt Count 171 (150-450) 10^3/uL BMP 08/15/24 03:56 Sodium 129 L Potassium 5.3 H Chloride 98 Carbon Dioxide 22.5 BUN 25.0 H Creatinine 1.34 H Glucose 96 Calcium 8.8 Liver Function 08/15/24 Range/Units 03:56 Total Bilirubin 1.2 H (0.2-1.0) mg/dL AST 130 H (15-37) U/L ALT 23 (16-63) U/L Alkaline Phosphatase 758 H (46-116) U/L Albumin 2.2 L (3.4-5.0) g/dL Assessment and Plan Assessment and Plan (1) Atrial fibrillation with rapid ventricular response: (2) Congestive heart failure: (3) Acute UTI: (4) Back pain: (5) Acute hyponatremia: (6) Anemia: (7) Diabetes: (8) Hypertension: (9) Leukocytosis: (10) Bladder cancer: (11) Hx of CABG: Plan Admission findings: Atrial fibrillation with rapid ventricular response, respiratory distress, leukocytosis, right lower lobe pneumonia resulting in sepsis with multisystem organ dysfunction, lung, heart, heme Sepsis due to right lower lobe pneumonia-recent hospitalization, will cover nosocomial infections, will use imipenem, recent urine culture resistant to most antibiotics except the imipenem, will add linezolid to protect kidneys and cover MRSA Atrial fibrillation-this is likely new onset-patient already anticoagulated, will maintain that, add beta-jordy for rate control Iron deficiency anemia-check stools for occult blood, IV Protonix with a history of upper gastrointestinal bleed Hyponatremia-this is likely secondary to fluid status, BNP is significantly elevated, will check echocardiogram in a.m. Systolic heart failure and left pleural effusion-no peripheral edema-check echocardiogram, if blood pressure remains stable we will repeat Lasix later today. History of bladder cancer with urostomy-urine culture abnormal, likely acute UTI as well, antibiotics as outlined above Hyperkalemia on admission-improved this morning Chronic kidney disease stage III-creatinine is probably as good as this can get for him, we will continue to monitor daily Hypomagnesemia-supplement Elevated liver function tests-will repeat in a.m., significant elevated alkaline phosphatase, patient does not have any bony disorders that he describes, was told he has no metastases to his bones Admission status: Patient with sepsis secondary to right lower lobe pneumonia with multisystem organ dysfunction as outlined above, medically necessary treatment will span 2 midnights. Maintain inpatient status in the ICU
[2024-08-15 10:17] LABS: Basophils Percent Auto 0.1 % (0.2-2.0); Hematocrit 29.5 % (42.0-54.0); Hemoglobin 9.1 g/dL (14.0-18.0); Immature Granulocytes Pct Auto 0.6 % (0.0-0.5); Lymphocytes Absolute Auto 0.2 10^3/uL (1.2-3.8); Lymphocytes Percent Auto 1.5 % (20.5-60.0); Mean Corpuscular HGB Conc 30.8 g/dL (29.9-35.2); Mean Corpuscular Hemoglobin 29.4 pg (25.9-34.0); Mean Corpuscular Volume 95.2 fL (80.0-94.0); Mean Platelet Volume 10.5 fL (9.5-13.5); Monocytes Absolute Auto 0.9 10^3/uL (0.3-0.8); Monocytes Percent Auto 5.2 % (1.7-12.0); Neutrophils Absolute Auto 15.2 10^3/uL (1.4-6.5); Neutrophils Percent Auto 92.6 % (43.0-75.0); Platelet Count 159 10^3/uL (150-450); Red Cell Distribution Width 18.9 % (11.0-15.0); White Blood Count 16.4 10^3/uL (4.0-11.0)
[2024-08-15] MEDS: IMIPENEM/CILASTATIN SODIUM 500 MG in 0.9 % SODIUM CHLORIDE 100 ML 200 MG IV ×2 (10:27→17:05)
[2024-08-15] MEDS: MAGNESIUM SULFATE IN WATER 4 GM/100 ML PIGGYBACK IV (10:27)
[2024-08-15] MEDS: HYDRALAZINE HCL 25 MG TABLET PO ×2 (10:27→21:09)
[2024-08-15] MEDS: HYDROCODONE/ACET 5-325 MG TABLET 2 TAB PO ×3 (10:28→19:52)
[2024-08-15 10:40] LABS: Troponin I High Sensitivity 45.1 pg/mL (4.0-76.1)
[2024-08-15 10:50] LABS: Anion Gap 13.9; BUN Creatinine Ratio 17.6; Calcium 8.5 mg/dL (8.5-10.1); Chloride 97 mmol/L (98-107); Estimated GFR (African America 55 (>=60 mL/min/1.73m^2); Estimated GFR (Non-African Ame 46 (>=60 mL/min/1.73m^2); Glucose 126 mg/dL (74-106); Potassium 4.9 mmol/L (3.5-5.1); Sodium 130 mmol/L (136-145)
[2024-08-15] MEDS: LINEZOLID IN DEXTROSE 5% 600 MG/300 ML PIGGYBACK 300 MG IV ×2 (13:02→23:06)
[2024-08-15 13:44] LABS: Bilirubin Urine NEGATIVE (NEGATIVE); Blood Urine SMALL (NEGATIVE); Clarity Urine SL CLOUDY (CLEAR); Color Urine YELLOW (YELLOW); Glucose Urine UA NEGATIVE (NEGATIVE); Ketones Urine TRACE mg/dL (NEGATIVE); Leukocyte Esterase Urine SMALL (NEGATIVE); Nitrite Urine NEGATIVE (NEGATIVE); Protein Urine 30 mg/dL (NEG/TRACE); Specific Gravity Urine >=1.030 (1.005-1.025); Urobilinogen Urine 0.2 EU/dL (0.2-1.0); pH Urine 5.5 (5.0-9.0)
[2024-08-15 13:53] LABS: Bacteria Urine LARGE #/HPF (NONE SEEN); RBC Urine 20-50 #/HPF (0-2)
[2024-08-15 13:54] LABS: Cast Seen? SEEN #/LPF (NONE SEEN); Crystals Seen? None Seen #/HPF (None Seen); Hyaline Casts Urine RARE; Mucus Urine NONE SEEN (NONE SEEN); Squamous Epithelial Cell Urine NONE SEEN #/LPF (NONE/RARE)
[2024-08-15 15:58] LABS: Glucometer 122 mg/dL (74-106)
[2024-08-15] MEDS: PANTOPRAZOLE SODIUM 40 MG VIAL IV (21:08)
[2024-08-15] MEDS: MAGNESIUM OXIDE 400 MG TABLET PO (21:09)
[2024-08-15 21:10] LABS: Glucometer 109 mg/dL (74-106)
[2024-08-16] VITALS (15 sets, daily range): BP systolic 68–136; BP diastolic 50–76; PULSE 55–72; TEMP 36.4–36.7; O2SAT 96–98
[2024-08-16] MEDS: HYDROCODONE/ACET 5-325 MG TABLET 2 TAB PO ×2 (00:01→04:01)
[2024-08-16] MEDS: ACETAMINOPHEN 500 MG TABLET 1000 MG PO (02:29)
[2024-08-16] MEDS: IMIPENEM/CILASTATIN SODIUM 500 MG in 0.9 % SODIUM CHLORIDE 100 ML 200 MG IV ×2 (02:29→09:18)
[2024-08-16 05:18] LABS: Basophils Percent Auto 0.1 % (0.2-2.0); Eosinophils Percent Auto 0.3 % (0.9-7.0); Hematocrit 27.6 % (42.0-54.0); Hemoglobin 8.7 g/dL (14.0-18.0); Immature Granulocytes Abs Auto 0.05 10^3/uL (0.00-0.03); Immature Granulocytes Pct Auto 0.7 % (0.0-0.5); Lymphocytes Absolute Auto 0.6 10^3/uL (1.2-3.8); Lymphocytes Percent Auto 8.3 % (20.5-60.0); Mean Corpuscular HGB Conc 31.5 g/dL (29.9-35.2); Mean Corpuscular Hemoglobin 29.8 pg (25.9-34.0); Mean Corpuscular Volume 94.5 fL (80.0-94.0); Monocytes Percent Auto 13.7 % (1.7-12.0); Neutrophils Absolute Auto 5.5 10^3/uL (1.4-6.5); Neutrophils Percent Auto 76.9 % (43.0-75.0); Platelet Count 127 10^3/uL (150-450); Red Blood Count 2.92 10^6/uL (4.70-6.10); Red Cell Distribution Width 18.8 % (11.0-15.0); White Blood Count 7.1 10^3/uL (4.0-11.0)
[2024-08-16] MEDS: APIXABAN 5 MG TABLET 2.5 MG PO (05:59)
[2024-08-16 06:04] LABS: Alanine Aminotransferase 113 U/L (16-63); Albumin Globulin Ratio 0.4; Albumin Level 1.7 g/dL (3.4-5.0); Alkaline Phosphatase 728 U/L (46-116); Anion Gap 11.2; BUN Creatinine Ratio 21.3; Bilirubin Total 1.4 mg/dL (0.2-1.0); Calcium 8.3 mg/dL (8.5-10.1); Carbon Dioxide 24.7 mmol/L (21.0-32.0); Chloride 94 mmol/L (98-107); Estimated GFR (African America 47 (>=60 mL/min/1.73m^2); Estimated GFR (Non-African Ame 39 (>=60 mL/min/1.73m^2); Globulin 3.9 g/dL; Glucose 89 mg/dL (74-106); Magnesium 2.3 mg/dL (1.8-2.4); Potassium 4.9 mmol/L (3.5-5.1); Sodium 125 mmol/L (136-145); Total Protein 5.6 g/dL (6.4-8.2)
[2024-08-16 06:20] LABS: Aspartate Amino Transferase 1837 U/L (15-37); NT Pro B Type Natriuretic Pept >35000.0 pg/mL (<=1800.0)
--- NOTE | 2024-08-16 07:07 | CA_ITS ---
Patient Name: MYKEL IRIZARRY MR#: [id number] : 1940 Exam Date: 08/16/2024 Ordering Doctor: DR LETICIA DUNN . ECHOCARDIOGRAM REPORT PROCEDURE: CA ECHO DOPPLER COMPLETE INDICATIONS: Dyspnea, elevated BNP (>35,000), CABGx4 COMPARISON: None. DESCRIPTION: COMPLETE ECHOCARDIOGRAM Real-time transthoracic echocardiography with 2D, M-mode, spectral and color flow Doppler performed. QUALITY: Technical quality was good. LEFT VENTRICLE: Normal chamber size. Mild concentric left ventricular hypertrophy. Systolic function is severely reduced. Abnormal septal motion as seen in post open heart. LV EF: Severely reduced left ventricular ejection fraction, (25%). DIASTOLIC: ATRIAL SEPTUM: Visually appears intact. LEFT ATRIUM: Moderate dilatation. RIGHT ATRIUM: Moderate dilatation. RIGHT VENTRICLE: Moderate dilatation. Decreased right ventricular systolic function. TRICUSPID VALVE: Normal mobility and thickness. No stenosis with mild to moderate regurgitation. Doppler studies reveal severely (>60) elevated right sided pressures. RVSP 71 mmHg MITRAL VALVE: Mildly thickened with normal mobility. No evidence of mitral valve stenosis. There is no mitral annular calcification. Mild to moderate mitral regurgitation. AORTIC VALVE: Normal trileaflet appearance. Thickened aortic valve. Normal leaflet mobility. No evidence of aortic valve stenosis. No aortic regurgitation. AORTIC ROOT: Normal diameter and appearance. Ascending aorta is normal in size. PULMONIC VALVE: Normal thickness and mobility. No stenosis. Mild regurgitation. PERICARDIUM: No evidence of pericardial effusion. IVC: IVC is dilated (2.5 cm) with no collapse. PLEURA: CONCLUSION: 1. Mild concentric left ventricular hypertrophy with severely reduced systolic function. LVEF is estimated at 25%. 2. Moderately dilated right ventricle with reduced systolic function. 3. Mild to moderate mitral and tricuspid regurgitation. 4. Severely elevated right-sided pressures. RVSP 71 mmHg. 5. No pericardial effusion. Adult Echocardiography Procedure Report Left Ventricle LVEDD (3.7 - 5.6 cm): 5.25 cm LVESD (2.2 - 4.0 cm): 5.02 cm LVIVS thickness (0.6 - 1.2 cm): 1.11 cm LVPW thickness (0.5 - 1.0 cm): 1.05 cm e': 0.06 m/s E - e': 9.06 LVOT Max Gradient: 1.35 mm[Hg] LVOT Area (cm2): 0.58 m/s Peak Velocity (LVOT): 0.58 m/s Mean Velocity (LVOT): 0.36 m/s LVOT Diameter 2.08 cm Left Atrium LA Volume Index (2D A2C): 62.61 ml/m2 Left Atrium Systolic Dimension: 4.50 cm Mitral Valve MV E to A Ratio: 0.88 Mitral Valve A-Wave Peak Velocity: 0.57 m/s Mitral Valve E-Wave Peak Velocity: 0.50 m/s Right Ventricle Aorta AO Root Diam: 3.51 cm Ascending Ao Diam: 2.87 cm Aortic Valve AoV Area (Peak Terence): 2.22 cm2, 2.22 cm2 AoV Area (VTI): 2.17 cm2, 2.17 cm2 Peak Velocity(Antegrade Flow): 0.89 m/s Peak Gradient(Antegrade Flow): 3.17 mm[Hg] Mean Velocity(Antegrade Flow): 0.57 m/s Mean Gradient(Antegrade Flow): 1.50 mm[Hg] Velocity Time Integral: 20.74 cm Tricuspid Valve Peak Velocity (Regurgitant Flow): 3.71 m/s, 3.74 m/s Pulmonic Valve Peak Velocity: 0.57 m/s Peak Gradient: 1.29 mm[Hg] Right Atrium Right Atrium Systolic Pressure: 97.26 ml, 97.26 ml Dictated by: Eder Chambers M.D. on 08/17/2024 at 18:53 Approved by: Eder Chambers M.D. on 08/17/2024 at 18:57
[2024-08-16 07:16] LABS: Glucometer 99 mg/dL (74-106)
[2024-08-16] MEDS: SODIUM CHLORIDE 1,000 MG TABLET 1000 MG PO ×2 (08:54→13:02)
[2024-08-16] MEDS: MAGNESIUM OXIDE 400 MG TABLET PO (08:54)
[2024-08-16] MEDS: SPIRONOLACTONE 25 MG TABLET PO (08:54)
[2024-08-16] MEDS: ISOSORBIDE MONONITRATE 60 MG TAB.ER.24H PO (08:54)
[2024-08-16] MEDS: FERROUS SULFATE 325 MG TABLET PO (08:54)
[2024-08-16] MEDS: FUROSEMIDE 40 MG/4 ML VIAL IVP ×2 (08:55→21:36)
[2024-08-16] MEDS: HYDRALAZINE HCL 25 MG TABLET PO (08:55)
[2024-08-16] MEDS: METOPROLOL TARTRATE 50 MG TABLET PO (08:55)
[2024-08-16] MEDS: OMEPRAZOLE 40 MG CAPSULE.DR PO (08:55)
[2024-08-16] MEDS: OXYCODONE HCL 5 MG TABLET PO (10:15)
--- NOTE | 2024-08-16 10:59 | US_ITS ---
The [address] [address] Patient Name: MYKEL IRIZARRY MRN: [id number] date: 1940 Sex: M Assigned Patient Location: ICU Current Patient Location: ICU Accession/Order Number: [id number] Exam Date: 08/16/2024 11:00 Report Date: 08/16/2024 12:05 At the request of: SHAIKH CHRISTINA Procedure: US right upper quadrant PROCEDURE: US right upper quadrant, 08/16/2024 11:00 AM EST CLINICAL INDICATIONS: Abnormal serum liver enzymes, pain COMPARISON: CT abdomen and pelvis 08/09/2024 TECHNIQUE: Right upper quadrant abdominal sonogram, grayscale color and spectral assessment. FINDINGS: Right pleural effusion noted. Common bile duct is not identified. Gallbladder is nondistended. Wall thickening, calculus is not seen. Localized pain is not reported. Pancreas assessment is nondiagnostic given gas attenuation throughout the region. Right lobe liver is enlarged up to 16.2 cm. Severe heterogeneity is seen throughout the right lobe liver corresponding with multilobular mass described on prior CT assessment. More discrete mass is seen anteriorly within the right lobe measuring up to 3.1 x 2.0 x 2.6 cm. No internal vascularity seen. Right kidney is normal in morphology. It measures 10.0 x 4.7 x 4.8 cm. No hydronephrosis or shadowing calculus is identified. Focal renal abnormality is not demonstrated. No ascites. US/US right upper quadrant IMPRESSION: 1. Diffuse heterogeneous masslike replacement of the right lobe of the liver as described. This pattern characterized on prior CT of 08/09/2024. Etiology again remains indeterminate. Correlation with biopsy results from 09/16/2017. MRI liver with without contrast would be more accurate in further characterization. 2. Nondiagnostic pancreas assessment 3. Small right pleural effusion 4. No gallbladder pathology or bile duct dilatation Electronically authenticated by: BEKAH ACUNA Date: 08/16/2024 12:05
[2024-08-16 11:16] LABS: Glucometer 114 mg/dL (74-106)
[2024-08-16] MEDS: METHOCARBAMOL 500 MG TABLET PO (11:22)
--- NOTE | 2024-08-16 11:31 | SWNOTE1 ---
SW spoke with [facility] and pt is current with them. They stated everytime they go to open a case with him he ends up back to the hospital. SW to speak with pt about SNF. It was recommended by physical therapy if pt agreeable.
--- NOTE | 2024-08-16 11:33 | CM.NOTE ---
Rounds made with Dr. Yoon, discussed plan of care with pt and no discharge today. Pt can transfer to Med-surg on telemetry.
--- NOTE | 2024-08-16 11:57 | SWNOTE1 ---
Important Message from Medicare reviewed and discussed with patient. Pt. verbalized understanding and signed the form. Original given to patient and copy placed in patient?s chart.
--- NOTE | 2024-08-16 11:57 | SWNOTE1 ---
SW met pt's . Pt sleeping at this time. Pt let her know that [facility] did call SW. She voiced the same that everytime they go to come in, he ends up at hospital. SW and pt's spoke about returning home with HH or attempting to go SNF. Pt's feels he would benefit from SNF, but it will be up to the patient. She voiced of course she will assist at home if he returns home. She does have family friends that help as needed. His pcp just ordered a new walker that is taller and has arm rests on it. She has grab bars in home as well. Pt's recommended SW come back when pt is awake to discuss. SW to stop back in later today.
[2024-08-16] MEDS: LINEZOLID IN DEXTROSE 5% 600 MG/300 ML PIGGYBACK 300 MG IV (12:21)
[2024-08-16] MEDS: PREDNISONE 20 MG TABLET 40 MG PO (12:30)
--- NOTE | 2024-08-16 13:28 | P.IMPN_ITS ---
Progress Note: A&P Assessment and Plan (1) Sepsis: Assessment and Plan: Met sepsis criteria upon admission -(WBC>13k, RR> 20, HR> 90) Hemodynamically stable now with improvement in RR, WBC and HR. On broad spectrum abx - c/w zyvox and imipenem. F/u cultures. Qualifiers: Sepsis type: sepsis due to unspecified organism Sepsis acute organ dysfunction status: without acute organ dysfunction Qualified Code(s): A41.9 - Sepsis, unspecified organism (2) Urinary tract infection associated with nephrostomy catheter: Assessment and Plan: On IV imipenem as presented with UTI, cultures growing ESBL E coli Qualifiers: Encounter type: subsequent encounter Qualified Code(s): T83.512D - Infection and inflammatory reaction due to nephrostomy catheter, subsequent enco unter; N39.0 - Urinary tract infection, site not specified (3) Hospital acquired PNA: Assessment and Plan: Infiltrates on CXR, along with SOB. Recent hospital admission and abx use. On IV zyvox and imipenem to cover for Hospital Acquired PNA. Wheezing on exam - on xopenex , started on PO prednisone to help with bronchospasm (4) Atrial fibrillation with rapid ventricular response: Assessment and Plan: HR better now. Afib with RVR was likely due to underlying sepsis. On Eliquis for stroke px. (5) Congestive heart failure: Assessment and Plan: Sig volume overload on exam with elevated BNP On IV lasix 40 q12, monitor I/O, daily weights. Qualifiers: Heart failure type: systolic Heart failure chronicity: acute on chronic Qualified Code(s): I50.23 - Acute on chronic systolic (congestive) heart failure (6) Anemia: Assessment and Plan: Chronic, likely anemia of chronic disease. Monitor. Will need outpatient GI work up as previously had positive occult blood. No overt bleeding reported. Ordered anemia work up Qualifiers: Anemia type: unspecified type Qualified Code(s): D64.9 - Anemia, unspecified (7) Hypertension: Assessment and Plan: BP stable. c/w home medications. Qualifiers: Hypertension type: primary hypertension Qualified Code(s): I10 - Essential (primary) hypertension (8) Hyponatremia: Assessment and Plan: Resume salt tablets. C/w fluid restriction. Multifactorial - acute worsening due to volume overload. On IV lasix for it. Recheck BMP at 2 pm (9) Transaminitis: Assessment and Plan: Sig elevation in AST/ALT. US shows liver mass previously seen also. Trend LFTs. No GI symptoms. No abdominal pain. Could be due to Hepatic congestive from CHF. If no improvement in AST/ALT/ALPO4, Will order MRI with/w/o contrast for liver mass. (10) CKD stage 3a, GFR 45-59 ml/min: Assessment and Plan: Renal fx at baseline. Monitor. Internal Medicine - PN: Subj Subjective Interval history: Seen and examined. Patient had just worked with PT before my evaluation and was having difficulty catching his breath. He reports cough, SOB at rest and feels overall weak. No overnight events. Exam Constitutional Vital Signs, click to edit/add: Last Vital Signs Temp 98.1 F 08/16/24 12:00 Pulse 62 08/16/24 12:00 Resp 20 08/16/24 12:00 BP 129/71 08/16/24 12:00 Pulse Ox 97 08/16/24 12:00 O2 Del Method Room Air 08/16/24 12:00 General appearance: in distress respiratory, ill appearing and frail appearing Nutritional appearance: overweight Respiratory Common normals: normal respiratory effort Effort & inspection: tachypneic and labored Auscultation: rhonchi and wheezes Other: Increased work of breathing. Conversational dyspnea noted. Cardio Common normals: regular rate, regular rhythm, S1 normal heart sound and S2 normal heart sound GI Common normals: Normal to inspection, nondistended, normoactive bowel sounds present, soft to palpation, non-tender and no hepatosplenomegaly Extremity Common normals: normal to inspection and full ROM Neuro Common normals: oriented x3, moves all extremities, no focal motor deficits and no sensory deficits noted Psych Common normals: mental status grossly normal, thought process normal, denies homicidal ideation and denies suicidal ideation Internal Medicine - PN: Obj Da Labs Labs: Laboratory Results - last 24 hr 08/15/24 08/15/24 08/15/24 13:00 15:57 21:09 WBC RBC Hgb Hct MCV MCH MCHC RDW Plt Count MPV Neut % (Auto) Lymph % (Auto) [place] % (Auto) Eos % (Auto) Baso % (Auto) Neut # (Auto) Lymph # (Auto) [place] # (Auto) Eos # (Auto) Baso # (Auto) Abs Immat Gran (auto) Imm/Tot Granulo (auto) Sodium Potassium Chloride Carbon Dioxide Anion Gap BUN Creatinine Est GFR ( Amer) Est GFR (Non-Af Amer) BUN/Creatinine Ratio Glucose Calcium Magnesium Total Bilirubin AST ALT Alkaline Phosphatase NT-Pro-B Natriuret Pep Total Protein Albumin Globulin Albumin/Globulin Ratio Urine Color Yellow Urine Clarity Sl cloudy Urine pH 5.5 Ur Specific [place] >=1.030 A Urine Protein 30 A Urine Glucose (UA) Negative Urine Ketones Trace A Urine Occult Blood Small A Urine Nitrite Negative Urine Bilirubin Negative Urine Urobilinogen 0.2 Ur Leukocyte Esterase Small A Urine RBC 20-50 A Urine WBC 10-20 A Ur Squamous Epith Cells None seen Urine Crystals None seen Urine Bacteria Large A Urine Casts Seen A Hyaline Casts Rare Urine Mucus None seen POC Glucose 122 H 109 H 08/16/24 08/16/24 08/16/24 04:54 07:14 11:15 WBC 7.1 RBC 2.92 L Hgb 8.7 L Hct 27.6 L MCV 94.5 H MCH 29.8 MCHC 31.5 RDW 18.8 H Plt Count 127 L MPV 11.0 Neut % (Auto) 76.9 H Lymph % (Auto) 8.3 L Whiteside % (Auto) 13.7 H Eos % (Auto) 0.3 L Baso % (Auto) 0.1 L Neut # (Auto) 5.5 Lymph # (Auto) 0.6 L [place] # (Auto) 1.0 H Eos # (Auto) 0.0 Baso # (Auto) 0.0 Abs Immat Gran (auto) 0.05 H Imm/Tot Granulo (auto) 0.7 H Sodium 125 L Potassium 4.9 Chloride 94 L Carbon Dioxide 24.7 Anion Gap 11.2 BUN 36.0 H Creatinine 1.69 H Est GFR ( Amer) 47 L Est GFR (Non-Af Amer) 39 L BUN/Creatinine Ratio 21.3 Glucose 89 Calcium 8.3 L Magnesium 2.3 Total Bilirubin 1.4 H AST 1837 H* ALT 113 H Alkaline Phosphatase 728 H NT-Pro-B Natriuret Pep >13721.0 H* Total Protein 5.6 L Albumin 1.7 L Globulin 3.9 Albumin/Globulin Ratio 0.4 Urine Color Urine Clarity Urine pH Ur Specific [place] Urine Protein Urine Glucose (UA) Urine Ketones Urine Occult Blood Urine Nitrite Urine Bilirubin Urine Urobilinogen Ur Leukocyte Esterase Urine RBC Urine WBC Ur Squamous Epith Cells Urine Crystals Urine Bacteria Urine Casts Hyaline Casts Urine Mucus POC Glucose 99 114 H
--- NOTE | 2024-08-16 13:35 | SWNOTE1 ---
SW stopped back in, pt still sleeping. voiced he did not wake up to eat and has not been eating well at home. SW did advise that since pt is a precert for rehab and if he agrees, we would need to start something today. She did voice understanding. SW will come back around 2:00 and we will go from there. SW did ask if he had ever been to rehab in past. She stated only in [place]. She prefers him to be closer. She voiced they live between [place] and [place]. She would like [facility] if he does agree. SW to check if they have openings and take [employer] Medicare. SW called [facility] and they do take that insurance and will likely have an opening. SW to stop back and talk to pt around 2:00.
--- NOTE | 2024-08-16 14:15 | SWNOTE1 ---
SW did speak to pt and in room. Pt just waking up. SW spoke to him about rehab. Initially pt was hesitant, but does feel like due to his pain that he may benefit from rehab for a short time. Pt and would like [facility] in [place]. Pt is a precert. Referral sent to [facility] [place]. Referral included face sheet, ED note, H&P, provider notes, case management report, nursing notes, diagnostic imaging, med list, and PT/OT notes.
[2024-08-16 15:52] LABS: Glucometer 107 mg/dL (74-106)
--- NOTE | 2024-08-16 16:11 | PC.NURSE ---
calls out stating pt cant breathe. Noticed heart rate declining on tele monitor. Pt has no respirations, unable to feel pulse. Code blue button pushed and compressions started. Code team arrives immediately to room. See code blue paper for details. Shimon Yoon in room. escorted next door. Dr Yoon then discusses with pt deteriorating condition. decides on DNRCC. pt placed on non rebreather as ROSC was obtained. Agonal breathing noted. All meds stopped. back in room at beside holding pt hand. Dr Yoon also in room.
--- NOTE | 2024-08-16 16:15 | SWNOTE1 ---
Pt went in to cardiac arrest. Dr. Yoon and Dr. Reddy spoke to and pt's son was on phone. and son decided to make pt comfortable at this time.
--- NOTE | 2024-08-16 16:59 | PC.NURSE ---
[facility] notified of cancelling PICC order
[2024-08-16] MEDS: IMIPENEM/CILASTATIN SODIUM 500 MG in 0.9 % SODIUM CHLORIDE 100 ML 100 MG IV (18:12)
[2024-08-16] MEDS: ONDANSETRON PF 4 MG/2 ML VIAL IV (21:36)
[2024-08-16] MEDS: MORPHINE SULFATE 2 MG/ML SYRINGE IV (21:36)
--- NOTE | 2024-08-16 23:36 | PC.NURSE ---
Patient at 2233. No blood pressure or heart tones. Family request Patient goes to [facility] home. Family at bedside waiting for the son to arrive to see his dad before going to home.
--- NOTE | 2024-08-17 01:29 | PC.NURSE ---
Notified [facility] in [facility] to pick the Patient up per Family request. Patient has a gold tone wedding band with small diamonds noted on his left hand and a red blanket left for the patient.
--- NOTE | 2024-08-22 13:57 | PM.DS1 ---
DS: Providers Provider Date of admission: 08/15/24 05:34 Primary care physician: Benson Mancini DO Admitting clinician: Johnnie Castillo Attending physician on admission: Johnnie Castillo Consults: 08/15/24 Consult to Drainage Design Coordinator Routine Reason for consult:: Advanced Directives 08/15/24 07:02 Consult to Pharmacy Routine Consulting Provider: Reason for consultation: Please Castaner me when Med Rec is Updated Has provider been notified: No Occupational Therapy Eval and Treat Routine Reason for consultation: Only if needed for Rehab Has provider been notified: No Physical Therapy Eval and Treat Routine Reason for consultation: Eval and Treat Has provider been notified: No 08/15/24 10:11 Consult to Cardiology Routine Reason for consultation: new onset a fib Has provider been notified: No 08/16/24 Occupational Therapy Eval and Treat Routine Reason for consultation: weakness Attending physician on discharge: Shaikh Karrie Discharging clinician: Shaikh Karrie Anticipated date of discharge: 08/16/24 DS: Diagnosis Discharge Diagnosis (1) Sepsis: Qualifiers: Sepsis type: sepsis due to unspecified organism Sepsis acute organ dysfunction status: without acute organ dysfunction Qualified Code(s): A41.9 - Sepsis, unspecified organism (2) Urinary tract infection associated with nephrostomy catheter: Qualifiers: Encounter type: subsequent encounter Qualified Code(s): T83.512D - Infection and inflammatory reaction due to nephrostomy catheter, subsequent encounter; N39.0 - Urinary tract infection, site not specified (3) Hospital acquired PNA: (4) Atrial fibrillation with rapid ventricular response: (5) Congestive heart failure: Qualifiers: Heart failure chronicity: acute on chronic Heart failure type: systolic Qualified Code(s): I50.23 - Acute on chronic systolic (congestive) heart failure (6) Anemia: Qualifiers: Anemia type: unspecified type Qualified Code(s): D64.9 - Anemia, unspecified (7) Hypertension: Qualifiers: Hypertension type: primary hypertension Qualified Code(s): I10 - Essential (primary) hypertension (8) Hyponatremia: (9) Transaminitis: (10) CKD stage 3a, GFR 45-59 ml/min: DS: Summary Hospital Course Hospital Course: 84-year-old male was admitted for A-fib with RVR, sepsis secondary to hospital-acquired pneumonia, urinary tract infection and acute on chronic systolic heart failure. He was on IV Zyvox and imipenem for hospital-acquired pneumonia and UTI. He was also on IV Lasix for acute on chronic systolic heart failure. He was gradually improving clinically but then developed cardiac arrest for which [facility] was called and CPR was initiated as per ACLS protocol. He had ROSC after 1 round of CPR and epinephrine but was gasping for air and had considerable dyspnea. After discussion with family, decision was made to withdraw care and make patient comfortable. He was ordered to receive morphine as needed for dyspnea and air hunger. Patient unfortunately at 2234 on 08/16/2024 Time Spent with Patient Time attestation: Total time spent providing and/or coordinating discharge services: Exam Constitutional Vital Signs, click to edit/add: Last Vital Signs Temp 98 F 08/16/24 14:00 Pulse 55 L 08/16/24 20:00 Resp 10 L 08/16/24 20:00 BP 68/50 L 08/16/24 20:00 Pulse Ox 96 08/16/24 14:00 O2 Del Method Nonrebreather 08/16/24 20:00 Discharge Plan Discharge Disposition: Discharge Date/Time: 08/16/24 22:34 Date/Time: 08/16/24 22:34
== END 2024-08-16 22:34 | disposition expired | DRG 871 ==
LOC: ER 04:45 → ICU 05:38 → MS 08-16 12:13
PROVIDERS: Registered Nurse; Admitting Provider Family Medicine; Emergency Provider Emergency Medicine; PCP Internal Medicine; Visit Provider Internal Medicine
DX: A41.9 Sepsis, unspecified organism (principal); I50.23 Acute on chronic systolic (congestive) heart failure; J18.9 Pneumonia, unspecified organism; E87.1 Hypo-osmolality and hyponatremia; I13.0 Hypertensive heart and chronic kidney disease with heart failure and stage 1 through stage 4 chronic kidney disease, or unspecified chronic kidney disease; T83.512A Infection and inflammatory reaction due to nephrostomy catheter, initial encounter; D50.9 Iron deficiency anemia, unspecified; R06.03 Acute respiratory distress; E83.42 Hypomagnesemia; E11.22 Type 2 diabetes mellitus with diabetic chronic kidney disease; I46.9 Cardiac arrest, cause unspecified; Z95.1 Presence of aortocoronary bypass graft; Z85.51 Personal history of malignant neoplasm of bladder; Z93.6 Other artificial openings of urinary tract status; I48.0 Paroxysmal atrial fibrillation; E87.5 Hyperkalemia; R79.89 Other specified abnormal findings of blood chemistry; Z66 Do not resuscitate; Y95 Nosocomial condition; D64.9 Anemia, unspecified; R74.01 Elevation of levels of liver transaminase levels; R16.0 Hepatomegaly, not elsewhere classified; N18.31 Chronic kidney disease, stage 3a; Z91.81 History of falling; Z79.01 Long term (current) use of anticoagulants; F17.290 Nicotine dependence, other tobacco product, uncomplicated
CPT/HCPCS: 36415; 71045; 76705; 80048; 80053; 81001; 82607; 82948; 83605; 83735; 83880; 84436; 84443; 84466; 84484; 85007; 85025; 85027; 87040; 87070; 87804; 87811; 92950; 93005; 93306; 93356; 94667; 94668; 94761; 96365; 96375; 96376; 97161; 97165; 97530; 99285; C1887; G0328; J0171; J0743; J1940; J2020; J2270; J2405; J3475; J7512